=== PATIENT | female | born 2000 | race Caucasian/White ===

== ENCOUNTER 2023-03-31 10:01 | Outpatient (OUT) | payer BC, SELFPAY ==
[2023-03-29 17:58] LABS: HCG Quantitative 53 mIU/mL
[2023-03-31 07:22] LABS: HCG Quantitative 93 mIU/mL
== END 2023-03-31 23:59 | disposition home or self-care (01) ==
LOC: LAB 04-01 10:01
PROVIDERS: Visit Provider Obstetrics & Gynecology
DX: N92.5 Other specified irregular menstruation (principal)
CPT/HCPCS: 36415; 84702

== ENCOUNTER 2023-04-02 13:32 | Outpatient (OUT) | payer BC, SELFPAY ==
[2023-04-02 14:41] LABS: HCG Quantitative 316 mIU/mL
== END 2023-04-02 13:33 | disposition home or self-care (01) ==
LOC: LAB 13:33
PROVIDERS: Visit Provider Obstetrics & Gynecology
DX: N92.6 Irregular menstruation, unspecified (principal)
CPT/HCPCS: 36415; 84702

== ENCOUNTER 2023-04-30 09:01 | Outpatient (OUT) | payer BC, SELFPAY ==
--- NOTE | 2023-04-30 09:05 | US_ITS ---
The [address] [address] Patient Name: CHARLETTE ROCHA MRN: [id number] date: 2000 Sex: F Assigned Patient Location: Current Patient Location: US Accession/Order Number: [id number] Exam Date: 04/30/2023 09:07 Report Date: 04/30/2023 15:24 At the request of: TESSA MELGAR Procedure: US OB transvaginal EXAMINATION: US OB transvaginal HISTORY: MISSED MENSES COMPARISON: No relevant comparison available. FINDINGS: GESTATIONAL SAC: Present and normal appearing. YOLK SAC: Present and normal appearing. POLE: Present and normal appearing. CARDIAC: Present. UTERUS: Normal size and appearance. OVARIES: Right: Not seen. Left: Normal. CERVIX: 4.6 cm in length and closed. CUL-DE-SAC: Normal. OTHER: None. AGE BY LMP: 8 weeks 3 days [place] BY LMP: 12/07/2023 AGE BY US CRL: 8 weeks 2 days [place] BY US CRL: 12/08/2023 US/US OB transvaginal IMPRESSION: 1. Single live intrauterine . Electronically authenticated by: KORI COVINGTON Date: 04/30/2023 15:24
== END 2023-04-30 09:02 | disposition home or self-care (01) ==
LOC: US 09:01
PROVIDERS: Visit Provider Obstetrics & Gynecology
DX: Z34.91 Encounter for supervision of normal pregnancy, unspecified, first trimester (principal)
CPT/HCPCS: 76817

== ENCOUNTER 2023-06-21 09:56 | Outpatient (OUT) | payer BC, SELFPAY ==
[2023-06-21 11:56] LABS: HCG Quantitative 7 mIU/mL
--- NOTE | 2023-06-21 12:46 | US_ITS ---
The [place] [id number] Patient Name: CHARLETTE ROCHA MRN: [id number] date: 2000 Sex: F Assigned Patient Location: LAB Current Patient Location: LAB Accession/Order Number: [id number] Exam Date: 06/21/2023 12:50 Report Date: 06/21/2023 17:44 At the request of: TESSA MELGAR Procedure: US pelvis transvaginal EXAMINATION: US pelvis transvaginal HISTORY: Miscarriage O03.9 COMPARISON: No relevant comparison available. FINDINGS: The uterus is normal in size, contour and echotexture measuring 8.0 x 4.1 x 4.3 cm. Anteverted. The endometrium measures 13.7 mm, correlate with the menstrual cycle. Peripheral hyperechogenicity within the endometrial cavity with central hypoechogenicity. No significant vascularity within the endometrial cavity The right ovary is normal measuring 2.1 x 1.3 x 2.2 cm. Normal color and Doppler flow. Left ovary measures 3.6 x 3.8 x 3.4 cm. Area of anechoic echogenicity measuring 4.1 x 3.6 x 3.6 cm with some low-level echoes. Complex cyst is favored Small amount of free pelvic fluid within physiologic in amount US/US pelvis transvaginal IMPRESSION: Prominent endometrial cavity without vascularity, I favor blood products with no definite retained products of conception 4.1 cm cystic lesion of the left ovary, possibly a corpus luteal cyst Electronically authenticated by: KIRSTIN BOJORQUEZ Date: 06/21/2023 17:44
== END 2023-06-21 09:57 | disposition home or self-care (01) ==
LOC: LAB 10:01
PROVIDERS: Visit Provider Obstetrics & Gynecology
DX: O03.9 Complete or unspecified spontaneous abortion without complication (principal); N83.202 Unspecified ovarian cyst, left side
CPT/HCPCS: 36415; 76830; 84702

== ENCOUNTER 2023-12-31 10:38 | Outpatient (OUT) | payer BC, SELFPAY ==
[2023-12-31 11:23] LABS: HCG Qualitative POSITIVE (NEGATIVE)
[2023-12-31 13:06] LABS: HCG Quantitative 19 mIU/mL
== END 2023-12-31 10:39 | disposition home or self-care (01) ==
LOC: LAB 10:40
DX: N91.2 Amenorrhea, unspecified (principal); Z32.01 Encounter for pregnancy test, result positive
CPT/HCPCS: 36415; 84702; 84703

== ENCOUNTER 2024-01-03 08:35 | Outpatient (OUT) | payer BC, SELFPAY ==
[2024-01-03 09:12] LABS: HCG Quantitative 104 mIU/mL
== END 2024-01-03 08:36 | disposition home or self-care (01) ==
LOC: LAB 08:36
PROVIDERS: Visit Provider Obstetrics & Gynecology
DX: Z32.01 Encounter for pregnancy test, result positive (principal); N92.6 Irregular menstruation, unspecified
CPT/HCPCS: 36415; 84702

== ENCOUNTER 2024-01-05 12:54 | Outpatient (OUT) | payer BC, SELFPAY ==
[2024-01-05 13:48] LABS: HCG Quantitative 264 mIU/mL
== END 2024-01-05 12:55 | disposition home or self-care (01) ==
LOC: LAB 12:55
PROVIDERS: Visit Provider Obstetrics & Gynecology
DX: N92.6 Irregular menstruation, unspecified (principal); Z32.01 Encounter for pregnancy test, result positive
CPT/HCPCS: 36415; 84702

== ENCOUNTER 2024-02-04 09:02 | Outpatient (OUT) | payer BC, SELFPAY ==
--- NOTE | 2024-02-04 09:04 | US_ITS ---
[address] [address] Patient Name: CHARLETTE ROCHA MRN: [id number] date: 2000 Sex: F Assigned Patient Location: [facility] Current Patient Location: [facility] Accession/Order Number: [id number] Exam Date: 02/04/2024 09:04 Report Date: 02/04/2024 10:11 At the request of: TESSA MELGAR Procedure: US OB transvaginal EXAMINATION: US OB transvaginal HISTORY: MISSED MENSES COMPARISON: No relevant comparison available. FINDINGS: Ponce intrauterine gestation Gestational sac: 2.0 cm, 7 weeks 4 days CRL: 1.9 cm, 8 weeks 3 days Yolk sac: 4.4 mm Heart rate: 182 beats minute Cervix: Closed, 4.3 cm The uterus is normal, anteverted, anteflexed The right ovary contains a 3 cm complex cystic structure possibly corpus luteal cyst The left ovary is normal Clinical age: 8 weeks 3 days Clinical [place]: 09/12/2024 Ultrasound age: 8 weeks 3 days Ultrasound [place]: 09/12/2024 US/US OB transvaginal IMPRESSION: Viable ponce intrauterine gestation measuring 8 weeks 3 days Electronically authenticated by: KIRSTIN BOJORQUEZ Date: 02/04/2024 10:11
== END 2024-02-04 09:03 | disposition home or self-care (01) ==
LOC: NOMS 09:03
PROVIDERS: Visit Provider Obstetrics & Gynecology
DX: Z34.91 Encounter for supervision of normal pregnancy, unspecified, first trimester (principal); Z3A.08 8 weeks gestation of pregnancy; N92.6 Irregular menstruation, unspecified
CPT/HCPCS: 76817

== ENCOUNTER 2024-02-16 10:46 | Outpatient (OUT) | payer BC, SELFPAY ==
[2024-02-16 11:17] LABS: Basophils Percent Auto 0.4 % (0.2-2.0); Eosinophils Absolute Auto 0.1 10^3/uL (0.0-0.7); Eosinophils Percent Auto 0.5 % (0.9-7.0); Hematocrit 37.7 % (36.0-48.0); Hemoglobin 12.7 g/dL (12.0-16.0); Immature Granulocytes Abs Auto 0.03 10^3/uL (0.00-0.03); Immature Granulocytes Pct Auto 0.3 % (0.0-0.5); Lymphocytes Absolute Auto 1.3 10^3/uL (1.2-3.8); Lymphocytes Percent Auto 12.8 % (20.5-60.0); Mean Corpuscular HGB Conc 33.7 g/dL (29.9-35.2); Mean Corpuscular Hemoglobin 30.8 pg (26.7-34.0); Mean Corpuscular Volume 91.3 fL (81.0-99.0); Mean Platelet Volume 10.5 fL (9.5-13.5); Monocytes Absolute Auto 0.5 10^3/uL (0.3-0.8); Monocytes Percent Auto 4.5 % (1.7-12.0); Neutrophils Absolute Auto 8.4 10^3/uL (1.4-6.5); Neutrophils Percent Auto 81.5 % (43.0-75.0); Platelet Count 305 10^3/uL (150-450); Red Blood Count 4.13 10^6/uL (4.20-5.40); Red Cell Distribution Width 12.4 % (11.0-15.0); White Blood Count 10.3 10^3/uL (4.0-11.0)
[2024-02-16 11:30] LABS: Estimated Average Glucose 88 mg/dL; Glycohemoglobin A1C 4.7 % (4.5-6.2)
[2024-02-17 06:09] LABS: HBsAg Screen Negative (Negative); HCV Ab Non Reactive (Non Reactive); HIV Ab/p24 Ag Screen Non Reactive (Non Reactive)
[2024-02-17 09:09] LABS: Rubella Antibodies, IgG 6.57 index (Immune >0.99)
[2024-02-17 12:09] LABS: Rapid Plasma Reagin, Quant Non Reactive titer (NonRea<1:1)
== END 2024-02-16 10:47 | disposition home or self-care (01) ==
LOC: LAB 10:47
PROVIDERS: Visit Provider Obstetrics & Gynecology
DX: N92.6 Irregular menstruation, unspecified (principal); Z36.0 Encounter for antenatal screening for chromosomal anomalies
CPT/HCPCS: 36415; 83036; 85025; 86592; 86762; 86803; 86850; 86900; 86901; 87086; 87340; 87389

== ENCOUNTER 2024-03-27 20:56 | Outpatient (REF) | payer BC, SELFPAY ==
--- OUTSIDE RECORDS SUMMARY | 2024-03-27 21:01 | XMS_ITS | CCD ---
Author Organization [facility] Care Team Providers Care Loader Technician Name Role Phone Kirstin Hernandez Unavailable DO Kirstin Hernandez Primary Care Provider DO Donavon Yanes Attending Provider DO Kirstin Hernandez Primary Care Provider DO Donavon Yanes Attending Provider DO Kirstin Hernandez Primary Care Provider DO Donavon Yanes Attending Provider UNA Childs Attending Pr ovider [facility] Primary Care Provider [phone] DO Kirstin Hrenandez Primary Care Provider DO Kirstin Hernandez Primary Care Provider [phone] UNA Childs Attending Pr ovider [facility] Primary Care Provider [phone] UNA Childs Attending Pr ovider [facility] Primary Care Provider [phone] TALIA ., DR ZARATE Attending Unavailable DAVID, DR FULTON Primary Care Unavailable TALIA ., DR ZARATE Admitting Unavailable TALIA ., DR ZARATE Attending Unavailable DAVID, DR FULTON Primary Care Unavailable TALIA ., DR ZARATE Admitting Unavailable TALIA ., DR ZARATE Admitting Unavailable TALIA ., DR ZARATE Attending Unavailable DAVID, DR FULTON Primary Care Unavailable TALIA ., DR ZARATE Consulting Unavailable LEATHA MAIER Consulting Unavailable RUSSELL SRIVASTAVA Consulting Unavailable TALIA ., DR ZARATE Attending Unavailable GIRVIN, DR FULTON Primary Care Unavailable TALIA ., DR ZARATE Admitting Unavailable TALIA ., DR ZARATE Attending Unavailable GIRVIN, DR FULTON Primary Care Unavailable TALIA ., DR ZARATE Admitting Unavailable TALIA ., DR ZARATE Attending Unavailable GIRVIN, DR FULTON Primary Care Unavailable TALIA ., DR ZARATE Admitting Unavailable TALIA ., DR ZARATE Attending Unavailable GIRVIN, DR FULTON Primary Care Unavailable TALIA ., DR ZARATE Admitting Unavailable TALIA ., DR ZARATE Attending Unavailable TALIA ., DR ZARATE Consulting Unavailable GIRVIN, DR FULTON Primary Care Unavailable TALIA ., DR ZARATE Admitting Unavailable GIRVIN, DR FULTON Admitting Unavailable GIRVIN, DR FULTON Attending Unavailable GIRVIN, DR FULTON Primary Care Unavailable TALIA ., DR ZARATE Consulting Unavailable TALIA ., DR ZARATE Admitting Unavailable TALIA ., DR ZARATE Attending Unavailable GIRVIN, DR FULTON Primary Care Unavailable HUMPHREY HOLLAND Admitting Unavailable GIRVIN, DR FULTON Primary Care Unavailable HUMPHREY HOLLAND Attending Unavailable HUMPHREY HOLLAND Consulting Unavailable PRIMITIVO CHAU Consulting Unavailable GIRVIN, DR FULTON Primary Care Unavailable TALIA ., DR ZARATE Admitting Unavailable TALIA ., DR ZARATE Attending Unavailable [facility] UNA Childs Attending Pr ovider UNA Ch Attending Provider [facility] ider UNA Childs Attending Pr ovider UNA Ch Attending Provider UNA Ch Primary Care Provider [phone] Tyler Armstrong Admitting Unavailable Tyler Armstrong Attending Unavailable Tyler Armstrong Primary Care Unavailable Yovany Crawley MD Primary Care Provider [phone] Raeann Ch NP Unavailable Tiarra Childs [facility]mitting [facility] Amadeo, Tiarra Bettencourt Attending U [facility], [facility] Primary Care U suzannaable Childs, Tiarra Bettencourt Admitting U navailable Childs, Tiarra Bettencourt Attending U navailable Warchol, Raeann Primary Care Unavailable Warchol, Raeann Attending Unavailable Warchol, Raeann Admitting Unavailable Warchol, Raeann Admitting Unavailable Warchol, Raeann Primary Care Unavailable Warchol, Raeann Attending Unavailable Warchol, Raeann Admitting Unavailable Warchol, Raeann Attending Unavailable [facility], [facility] Primary [facility] Childs, Tiarra Bettencourt Admitting [facility] Childs, Tiarra Bettencourt Attending U [facility], [facility] Primary Care U vishalailable WARCHOL, RAEANN Attending Unavailable WARCHOL, RAEANN Attending Unavailable DIDIONMACHELLE Attending Unavailable DIDIONMACHELLE Referring Unavailable ESME JOSHI Attending Unavailable ESME JOSHI Referring Unavailable WARCHOL, RAEANN Referring Unavailable WARLISANDRO, RAEANN Attending Unavailable JHONATHAN PEDRAZA Attending Unavailable Allergies Allergy Classification Reported Allergen(s) Allergy Type Date of Onset Reaction(s) Facility (10 sources) Citalopram Drug Allergy headaches, upset GI [facility] Other (1 source) Citalopram Drug Allergy 3 [facility] Medications Current Medications Medication Drug Class(es) Dates Sig (Normalized) Sig (Original) [id number] 200 actuat albuterol 0.09 mg/actuat metered dose inhaler (2 sources) beta2-Adrenergi c Agonist Start: 11-26-2022 take 2 puff(s) by inhalation every four hours Ventolin HFA 108 (90 Base) MCG/ACT inhaler 2 puffs every 4 (four) hours if needed 0 11/26/2022 Active 24 hr amphetamine aspartate 7.5 mg / amphetamine sulfate 7.5 mg / dextroamphetamine saccharate 7.5 mg / dextroamphetamine sulfate 7.5 mg extended release oral capsule (13 sources) Central Nervous System Stimulant Start: 10-21-2023 End: 11-20-2023 take 1 capsule by mouth every twenty-four hours in the morning amphetamine-dextro amphetamine XR (Adderall XR) 30 MG 24 hr capsule Indications: Attention-deficit hyperactivity disorder, other type (CMS/HCC) Take 1 capsule (30 mg) by mouth in the morning. Do not crush or chew.. 30 capsule 0 10/21/2023 11/20/2023 Active Start: 08-04-2022 take 1 tablet by marcel th in the morning Adderall 10 MG 1 tablet in the AM Orally and 1 tablet at noon for 15 days Jul, Active Start: 09-03-2021 take 1 tablet by marcel th in the morning Adderall 10 MG 1 tablet in the AM Orally and 1 tablet at noon for 30 days Aug, Active Biotin (6 sources) Biotin Active docusate sodium 100 mg oral capsule (6 sources) Start: take 1 capsule by mouth every twenty-four hours Colace 100 MG 1 capsule Orally Once a day Dec, Active 120 actuat fluticasone propionate 0.044 mg/actuat metered dose inhaler (2 sources) Corticosteroid Start: 023 take 2 puff(s) by inhalation in the morning Flovent HFA 44 MCG/ACT inhaler Inhale 2 puffs in the morning and 2 puffs before bedtime. 0 11/26/2022 Active hydrOXYzine hydrochloride 25 mg oral tablet (9 sources) Antihistamine Start: hydrOXYzine HCl 25 MG 1 tablet Orally q8-12 hrs prn anxiety Aug, Active MiraLax 17 GM/SCOOP (6 sources) Start: MiraLax 17 GM/SCOOP 1 capful in 10 oz of water Orally daily Dec, Active Multivitamin preparation (6 sources) take 1 tablet by mouth once daily Multi Vitamin - 1 tablet Orally Once a day Active omeprazole 20 mg delayed release oral capsule (2 sources) Proton Pump Inhibitor Start: omeprazole (PriLOSEC) [address] capsule 1 (one) time each day at the same time 0 09/15/2022 Active Completed/Discontinued Medications Medication Drug Class(es) Dates Sig (Normalized) Sig (Original) azithromycin 250 mg oral tablet (7 sources) Macrolide Antimicrobial Start: Zithromax Z-Rikki 250 MG 2 tablet on the first day, then 1 tablet daily for 4 days Orally Once a day for 5 day(s) Nov, Not-Taking cefTRIAXone (8 sources) Cephalosporin Antibacterial Start: 5 Rocephin 500 mg Oct, 1 grm cephalexin 500 mg oral capsule (6 sources) Cephalosporin Antibacterial Start: 2 take 1 capsule by mouth every eight hours Cephalexin 500 MG 1 capsule Orally tid for 7 days Dec, Not-Taking escitalopram 10 mg oral tablet (2 sources) Serotonin Reuptake Inhibitor Start: 3 End: 4 take 1 tablet by mouth at bedtime escitalopram (Lexapro) 10 MG tablet Indications: DORIAN (generalized anxiety disorder) (CMS/HCC) Take 1 tablet (10 mg) by mouth at bedtime. 30 tablet 0 07/20/2023 10/21/2023 Discontinued (Therapy completed) lamoTRIgine 25 mg oral tablet (4 sources) Mood Stabilizer, Anti-epileptic Agent LaMICtal 25 MG 1 tablet Orally Not-Taking lisdexamfetamine dimesylate 30 mg oral capsule (7 sources) Central Nervous System Stimulant Start: 3 End: 4 take 1 capsule by mouth in the morning lisdexamfetamine (Vyvanse) 30 MG capsule Indications: Attention-deficit hyperactivity disorder, other type (CMS/HCC) Take 1 capsule (30 mg) by mouth in the morning. 30 capsule 0 08/31/2023 10/21/2023 Discontinued (Therapy completed) lurasidone hydrochloride 40 mg oral tablet (4 sources) Atypical Antipsychotic take 1 tablet by mouth every twenty-four hours Latuda 40 MG 1 tablet with food Orally Once a day Not-Taking (4 sources) Not-Giorgi ing 24 hr venlafaxine 37.5 mg extended release oral capsule (5 sources) Serotonin and Norepinephrine Reuptake Inhibitor Start: 2 take 1 capsule by mouth every twenty-four hours Effexor XR 37.5 MG 1 capsule with food Orally Once a day for 30 day(s) Sep, Not-Taking Problems Active Problems Problem Classification Problem Date Documented Da te Episodic/Chronic Abdominal pain (6 sources) Unspecified abdominal pain; Translations: [Pelvic and perineal pain] Onset: 01-02-2022 Resolved: 01-02-2022 Episodic Adjustment disorders (10 sources) Reaction to severe stress, unspecified; Translations: [Stress] Chronic Anxiety disorders (12 sources) Anxiety disorder, unspecified; Translations: [Anxiety] Onset: 09-03-2021 Resolved: 09-03-2021 Chronic Asthma (2 sources) Uncomplicated mild persistent asthma; Translations: [Mild persistent asthma, uncomplicated] Onset: 07-19-2023 07-19-2023 Chronic Attention-deficit, conduct, and disruptive behavior disorders (16 sources) Attention deficit hyperactivity disorder; Translations: [Attention-deficit hyperactivity disorder, unspecified type] Onset: 07-19-2023 Resolved: 07-20-2023 10-21-2023 Chronic Attention-deficit, conduct, and disruptive behavior disorders (6 sources) Attention-deficit hyperactivity disorder, unspecified type; Translations: [ADHD (attention deficit hyperactivity disorder) F90.9] Onset: 07-07-2021 Resolved: 04-10-2022 Chronic Headache; including migraine (10 sources) Migraine; Translations: [Migraine, unspecified, not intractable, without status migrainosus] Chronic Headache; including migraine (1 source) Headache; including migraine; Translations: [Headache, unspecified] Onset: 02-12-2023 Malaise and fatigue (3 sources) Fatigue; Translations: [Chronic fatigue, unspecified] Onset: 05-27-2023 07-20-2023 Chronic Menstrual disorders (3 sources) Missed period; Translations: [Irregular menstruation, unspecified] Onset: 07-20-2023 Resolved: 08-27-2023 08-27-2023 Chronic Mood disorders (6 sources) Affective psychosis; Translations: [Unspecified mood [affective] disorder] Onset: 07-19-2023 Resolved: 07-20-2023 07-19-2023 Chronic Other ear and sense organ disorders (2 sources) Impacted cerumen of bilateral ears; Translations: [Impacted cerumen, bilateral] 10-21-2023 Episodic Other endocrine disorders (10 sources) Polycystic ovaries; Translations: [Polycystic ovarian syndrome] Chronic Other endocrine disorders (6 sources) Polycystic ovarian syndrome; Translations: [POLYCYSTIC OVARIAN SYNDROME] Onset: 04-10-2022 Resolved: 04-10-2022 Chronic Other endocrine disorders (2 sources) Hypoglycemia; Translations: [Hypoglycemia, unspecified] Onset: 07-19-2023 07-19-2023 Chronic Other endocrine disorders (1 source) Hypoglycemia, unspecified; Translations: [Hypoglycemia, unspecified] Onset: 05-27-2023 Chronic Other female genital disorders (3 sources) Abnormal uterine and vaginal bleeding, unspecified; Translations: [ABNORMAL UTERINE VAGINAL BLEED UNS] Onset: 09-28-2022 Chronic Other gastrointestinal disorders (6 sources) Constipation; Translations: [Constipation, unspecified] Episodic Other nervous system disorders (2 sources) Paresthesia; Translations: [Paresthesia of skin] Episodic Other nervous system disorders (4 sources) Paresthesia of upper limb; Translations: [Paresthesia of skin] Episodic Other nervous system disorders (4 sources) Skin sensation disturbance; Translations: [Paresthesia of skin] Episodic Residual codes; unclassified (10 sources) Insomnia; Translations: [Insomnia, unspecified] Episodic Residual codes; unclassified (10 sources) Difficulty sleeping ; Translations: [Sleep disorder, unspecified] Episodic Unclassified (1 source) Encounter for general adult medical examination without abnormal findings; Translations: [Encounter for general adult medical examination without abnormal findings] Onset: 07-20-2023 Unclassified (1 source) Acute cough; Translations: [Acute cough] Onset: 02-12-2023 Unclassified (1 source) Frequency of micturition; Translations: [Frequency of micturition] Onset: 01-12-2023 Past or Other Problems Problem Classification Problem Date Documented Da te Episodic/Chronic Deficiency and other anemia (1 source) Anemia, unspecified Onset: 09-03-2021 Resolved: 09-03-2021 Episodic Immunizations and screening for infectious disease (1 source) Encounter for screening for human papillomavirus (HPV); Translations: [ENC SCREENING HUMAN PAPILLOMAVIRUS] Onset: 03-19-2022 Episodic Malaise and fatigue (2 sources) Other fatigue; Translations: [Weakness] Onset: 03-10-2022 Resolved: 03-10-2022 Episodic Mood disorders (2 sources) Mood disorders Onset: 10-21-2023 10-21-2023 Nausea and vomiting (1 source) Vomiting, unspecified Onset: 01-02-2022 Resolved: 01-02-2022 Episodic Nonspecific chest pain (2 sources) Chest pain, unspecified Onset: 03-10-2022 Resolved: 04-10-2022 Episodic Other aftercare (2 sources) Other emt intermediate (current) drug therapy Onset: 09-03-2021 Resolved: 01-02-2022 Episodic Other gastrointestinal disorders (2 sources) Constipation, unspecified Onset: 01-02-2022 Resolved: 04-10-2022 Episodic Other gastrointestinal disorders (1 source) Change in bowel habit Onset: 01-02-2022 Resolved: 01-02-2022 Episodic Other nervous system disorders (1 source) Paresthesia of skin Onset: 01-02-2022 Resolved: 01-02-2022 Episodic Other nutritional; endocrine; and metabolic disorders (1 source) Abnormal weight loss; Translations: [Abnormal weight loss] Onset: 07-20-2023 Episodic Other screening for suspected conditions (not mental disorders or infectious disease) (5 sources) Encounter for screening for malignant neoplasm of cervix; Translations: [Encounter for screening for nutritional disorder] Onset: 03-16-2022 Episodic Other upper respiratory disease (1 source) Nasal congestion; Translations: [Nasal congestion] Onset: 02-12-2023 Episodic Other upper respiratory infections (1 source) Acute upper respiratory infection, unspecified; Translations: [Acute upper respiratory infection, unspecified] Onset: 08-10-2023 Episodic Spondylosis; intervertebral disc disorders; other back problems (1 source) Dorsalgia, unspecified Onset: 01-02-2022 Resolved: 01-02-2022 Episodic Spontaneous (2 sources) Complete or unspecified spontaneous without complication; Translations: [COMPLETE/UNS SPONT AB W/O COMP] Onset: 09-29-2022 Episodic Results Test Name Value Interpretation Reference Range Facility ED Clinical Summaryon 2022 ED Clinical Summary [facility] ? Urgent Care [address] [place], [place] [id number] Clinical Summary PERSON INFORMATION Name: CHARLETTE ROCHA Age: 23 Years Sex: FEMALE : 2000 MRN: Acct#: Visit Reason: Medical screening exam; JULIET PHYSICAL Arrival: 09/02/2023 11:23:52 Discharge: 09/02/2023 12:23:00 LOS: 000 01:00 Check In: 09/02/2023 11:23:52 Checkout: 09/02/2023 12:23:00 Address: [address] [place] [address] [place] [id number] PCP: Provider, Unlisted PROVIDER INFORMATION Provider Role Assigned Unassigned Osiris MARIN, Jessica ED Nurse 09/02/2023 11:28:54 09/02/2023 11:32:29 Tyler Armstrong PA-C ED PA 09/02/2023 11:34:50 Allison Paul MA ED Nurse 09/02/2023 11:37:10 VITALS INFORMATION Vital Sign Triage Latest Temperature Tympanic Temperature Temporal Artery Pulse Rate O2 Sat 98 % 98 % Respiratory Rate Blood Pressure /86 mmHg /86 mmHg MEDICAL INFORMATION Medications Given: Allergy Information: No known allergies PHYSICIAN DOCUMENTATION DISCHARGE INFORMATION: Discharge Disposition: Home Discharge Location: Home PATIENT EDUCATION INFORMATION Instructions: Follow-Up: DIAGNOSIS: Patient Understands: Yes - Patient/family/caregiver verbalizes understanding of instructions given Comment: Normal [facility] ED Patient Summaryon 023 ED Patient Summary [facility] ? Urgent Care [address] [place] [id number] PATIENT DISCHARGE INSTRUCTIONS Patient Information Name: CHARLETTE ROCHA Age: 23 Years Date of : 2000 Reason For Visit: Medical screening exam; OTTERBEIN PHYSICAL Arrival Time: 09/02/2023 11:23:52 Primary Care Physician: Provider, Unlisted Attending Physician: Tyler Armstrong PA-C Comment: Patient Education Medication Information: The exam and treatment you received today in the [facility] Emergency Department were for an urgent problem and are not intended as complete care. It is important for you to follow up with a doctor, nurse practitioner, or physician?s purchasing administrative assistant for ongoing care. If your symptoms become worse or you do not improve as expected and you are unable to reach your usual health care provider, you should return to the Emergency Department, we are available 24 hours a day. For those patients who have received Radiology results, the interpretation of your X-ray as given to you by our Emergency Department physician is only a preliminary report. The Radiologist will review your films and if there is a change in the diagnosis you will be notified by phone. Please make sure you have provided a working phone number so we can reach you if necessary. In the event that you had a lab culture while you were a patient in the Emergency Department, you will be notified by phone if there is a need to change your antibiotic. Please make sure you have provided a working phone number so we can reach you if necessary. [facility] Emergency Department has provided you with a complete list of medications post discharge. Please inform your dog daycare provider/provider of your visit and for further instruction on these medications. Any specific questions regarding your chronic medications and dosages should be discussed with your primary care physician(s) and/or pharmacist. Visit Information Visit Diagnosis: Diagnoses This Visit Medical screening exam ([id number]) If you received any narcotics, sedation, or any other medication that causes drowsiness for the next 24 hours, unless otherwise directed: ? Do not drive a car. ? Do not operate machinery such as power tools, lawn mowers, drills, sewing machines, or stoves ? Avoid alcoholic beverages and drugs for allergies, nerves, or sleep ? Do not make important personal or business decisions or sign any legal documents Reason for Visit: Medical Screening Exam. [place] Physical. Allergies: Substance Reaction Symptoms Type Comments No known allergies Drug Vital Signs: Vitals and Measurements this Visit (last charted value for your 09/02/2023 visit) Vital Signs This Visit Temperature Oral (F): 98.1 DegF Temperature Tympanic: 36.7 DegC Peripheral Pulse Rate: 88 bpm Systolic Blood Pressure: 124 mmHg Diastolic Blood Pressure: 86 mmHg SpO2: 98 % Blood Pressure Method: Automatic Measurements This Visit Height/Length Measured: 175.26 cm Weight Measured: 57.79 kg Weight Dosin.790 kg Body Mass Index: 18.81 kg/m2 BSA Measured: 1.68 m2 Problems List: Problem Onset Comments No Problems found Major Tests and Procedures: The following procedures and tests were performed during your ED visit. Laboratory Radiology Cardiology Viruses or Bacteria What?s got you sick? Antibiotics only treat bacterial infections. Viral illnesses cannot be treated with antibiotics. When an antibiotic is not prescribed, ask your healthcare professional for tips on how to relieve symptoms and feel better. Usual Cause Illness Viruses Bacteria Antibiotic Needed Cold/Runny Nose NO Bronchitis/Chest Cold (in otherwise healthy children and adults) NO Whooping Cough Yes Flu NO Strep Throat Yes Sore Throat (except strep) NO Fluid in the middle ear (otitis media with effusion) NO Urinary Tract Infection Yes Antibiotics Aren?t Always the Answer www.cdc.gov/getsmart GET SMART Know When Antibiotics Work [place] Department of Health and Human Services Centers for Disease Control and Prevention May 2014 Normal [facility] Urgent Care Note- Provideron 09-02-2023 Urgent Care Note- Provider Patient: CHARLETTE ROCHA Age: 23 years Sex: FEMALE : 2000 Associated Diagnoses: None Author: Tyler Armstrong PA-C Basic Information Additional information: Chief Complaint from Nursing Triage Note : Chief Complaint 09/02/2023 11:54 EST Chief Complaint Medical Screening Exam. [place] Physical. . History of Present Illness Patient presents for a pre-employment physical. She is cleared for work. Exam is normal. See scanned document. GENERAL: Awake, alert and oriented to person, place and situation. Well nourished, well developed, non toxic, NAD. Moves around the department freely. EYES: Pupils equal, round and react to light. EOMI. ENMT: Ears: TM's and external canals with normal inspection bilaterally. Nose: normal inspection. Mouth: oral mucosa is pink and still moist. Throat: normal inspection. NECK: No bony TTP, normal range of motion, no meningismus, trachea is midline. No anterior or posterior lymphadenopathy. CARDIOVASCULAR: Regular rate and rhythm. +S1 +S2. No murmurs or rubs. RESPIRATORY: Clear to auscultation bilaterally without rales, rhonchi or wheeze. ABDOMEN: Soft, completely non tender, abdomen is non distended, without rebound tenderness, guarding or peritoneal signs. Bowel sounds present times 4 quadrants and normoactive. No bruits. No masses. No CVA TTP. BACK: There is no bony TTP, no scoliosis, full ROM without difficulty. EXTREMITIES: No cyanosis, clubbing or edema. Good muscle tone, moves all extremities fully. Squat normal. SKIN: Normal inspection, no visualized rash. NEUROLOGIC: Light touch sensation in tact, strength 5/5 in bilateral upper and lower extremities. Normal reflexes. Steady gait. Normal mentation. No focal neurological deficits appreciated. PSYCHIATRIC: Mood and affect appropriate. Health Status Allergies: Allergic Reactions (Selected) No known allergies. Past Medical/ Family/ Social History Medical history: No active or resolved past medical history items have been selected or recorded.. Surgical history: No active procedure history items have been selected or recorded.. Family history: No family history items have been selected or recorded.. Social history: Social & Psychosocial Habits Alcohol 09/02/2023 Alcohol Use: Never Substance Use 09/02/2023 Substance use: Never Tobacco 09/02/2023 Smoking tobacco use: Never tobacco user Electronic Cigarette/Vaping 09/02/2023 Electronic Cigarette Use: Never . Problem list: No qualifying data available . Physical Examination Vital Signs Vital Signs 09/02/2023 11:54 EST Temperature Oral (DegF) 98.1 DegF Temperature Tympanic 36.7 DegC Peripheral Pulse Rate 88 bpm Systolic Blood Pressure 124 mmHg Diastolic Blood Pressure 86 mmHg SpO2 98 % BP Method Automatic . Measurements 09/02/2023 11:54 EST Height 175.26 cm Weight 57.79 kg Weight Dosing 57.790 kg Body Mass Index Measured 18.81 kg/m2 BSA Measured 1.68 m2 . [Electronically Signed on: 09/02/2023 12:03 EST] Tyler Armstrong PA-C [Verified on: 09/02/2023 12:03 EST] Tyler Armstrong PA-C [facility] [address]23 Urgent Care Record [facility] ? Urgent Care [address] [place] [address] PATIENT DISCHARGE INSTRUCTIONS Patient Information Name: CHARLETTE ROCHA Age: 23 Years Date of : 2000 Reason For Visit: Medical screening exam; JULIET PHYSICAL Arrival Time: 09/02/2023 11:23:52 Primary Care Physician: Provider, Unlisted Attending Physician: Tyler Armstrong PA-C Comment: Visit Diagnosis: Diagnoses This Visit Medical screening exam ([id number]) If you received any narcotics, sedation, or any other medication that causes drowsiness for the next 24 hours, unless otherwise directed: ? Do not drive a car. ? Do not operate machinery such as power tools, lawn mowers, drills, sewing machines, or stoves ? Avoid alcoholic beverages and drugs for allergies, nerves, or sleep ? Do not make important personal or business decisions or sign any legal documents Medication Information: The exam and treatment you received today in the [facility] were for an urgent problem and are not intended as complete care. It is important for you to follow up with a doctor, nurse practitioner, or physician?s purchasing administrative assistant for ongoing care. If your symptoms become worse or you do not improve as expected and you are unable to reach your usual health care provider, you should return to the Emergency Department, we are available 24 hours a day. For those patients who have received Radiology results, the interpretation of your X-ray as given to you by our Urgent Care physician is only a preliminary report. The Radiologist will review your films and if there is a change in the diagnosis you will be notified by phone. Please make sure you have provided a working phone number so we can reach you if necessary. In the event that you had a lab culture while you were a patient in the Urgent Care, you will be notified by phone if there is a need to change your antibiotic. Please make sure you have provided a working phone number so we can reach you if necessary. [facility] has provided you with a complete list of medications post discharge. Please inform your dog daycare provider/provider of your visit and for further instruction on these medications. Any specific questions regarding your chronic medications and dosages should be discussed with your primary care physician(s) and/or pharmacist. Visit Information Allergies: Substance Reaction Symptoms Type Comments No known allergies Drug Vital Signs: Vitals and Measurements this Visit (last charted value for your 09/02/2023 visit) Vital Signs This Visit Temperature Oral (F): 98.1 DegF Temperature Tympanic: 36.7 DegC Peripheral Pulse Rate: 88 bpm Systolic Blood Pressure: 124 mmHg Diastolic Blood Pressure: 86 mmHg SpO2: 98 % Blood Pressure Method: Automatic Measurements This Visit Height/Length Measured: 175.26 cm Weight Measured: 57.79 kg Weight Dosin.790 kg Body Mass Index: 18.81 kg/m2 BSA Measured: 1.68 m2 Problems List: Problem Onset Comments No Problems found Patient Education Viruses or Bacteria What?s got you sick? Antibiotics only treat bacterial infections. Viral illnesses cannot be treated with antibiotics. When an antibiotic is not prescribed, ask your healthcare professional for tips on how to relieve symptoms and feel better. Usual Cause Illness Viruses Bacteria Antibiotic Needed Cold/Runny Nose NO Bronchitis/Chest Cold (in otherwise healthy children and adults) NO Whooping Cough Yes Flu NO Strep Throat Yes Sore Throat (except strep) NO Fluid in the middle ear (otitis media with effusion) NO Urinary Tract Infection Yes Antibiotics Aren?t Always the Answer www.cdc.gov/getsmart GET SMART Know When Antibiotics Work [place] Department of Health and Human Services Centers for Disease Control and Prevention May 2014 Normal [facility] Choriogonadotropin.beta subu nit [Units/volume] in Serum or PlasmaOrdered By: Raeann Ch on 08-19-2023 HCG.beta subunit Qn 0.75 m[IU]/mL [facility] Comment on above: Approximate Approxim ate hCG Gestational Age Range (mIU/ml) (weeks)0.2-1 5-50 1-2 50-500 2-3 100-5,000 3-4 500-10,000 4-5 1,000-50,000 5-6 10,000-100,000 6-8 15,000-200,000 8-12 10,000-100,000 HCG.beta subunit Qn Negative [facility] HCG,Qualitative Serumon 07-23 HCG,Qualitative Serum Negative Normal [facility] Comment on above: Result Comment: PERF ORMED BY: [place] [address] PATHOLOGIST TAX COLLECTION COORDINATOR SADAF YOUNGBLOOD M.D. Performed By: #### C RP, T4F, FSH, B12, SAKINA, FE and TIBC, LIPID, [id number], CMP, MG, TSH3, FOL #### [address] HCG,Quantitativeon 3 HCG,Quantitative 0.75 m[iU]/mL Normal [facility] Comment on above: Result Comment: Appr oximate Approximate hCG Gestational Age Range (mIU/ml) (weeks) 0.2-1 5-50 1-2 50-500 2-3 100-5,000 3-4 500-10,000 4-5 1,000-50,000 5-6 10,000-100,000 6-8 15,000-200,000 8-12 10,000-100,000 Performed By: #### C RP, T4F, FSH, B12, SAKINA, FE and TIBC, LIPID, [id number], CMP, MG, TSH3, FOL #### [address] HAND RIGHT WO IV CONTRAST on 08-18-2023 CT HAND RIGHT WO IV CONTRAST EXAMINATION: CT HAND RIGHT WO IV CONTRAST HISTORY: Fourth and fifth metacarpal area pain. Right hand injury TECHNIQUE: Multiple axial images were obtained of the right hand without contrast. Multiplanar reformats were obtained. All CT scans at this facility use dose modulation, iterative reconstruction, and/or weight based dosing when appropriate to reduce radiation dose to as low as reasonably achievable. COMPARISON: Radiographs of the hand August 01, 2023 FINDINGS: Nondisplaced intra-articular fracture of the base of the fourth metacarpal and nondisplaced fracture of the distal dorsal aspect of the hamate. Wrist and hand alignment is within normal limits. Soft tissues appear within normal limits. IMPRESSION: Nondisplaced fracture of the base of the fourth metacarpal and distal aspect of the hamate. ELECTRONICALLY SIGNED BY: Rickey Sellers, DO Normal Not Available BioFire Not Detectedon 08-10 BioFire Not Detected Not detected Normal Not Detecte [facility] Comment on above: Result Comment: This is a duplicate RP2.1 COVID (PCR) result to be used for statistical tracking purpose only. PERFORMED BY: [place] [address] PATHOLOGIST TAX COLLECTION COORDINATOR SADAF YOUNGBLOOD M.D. Performed By: #### C RP, T4F, FSH, B12, SAKINA, FE and TIBC, LIPID, [id number], CMP, MG, TSH3, FOL #### [address] COVID-19 Detected/Not Detect edOrdered By: Raeann Ch on 08-10-2023 SARS-CoV-2 (COVID-19) RNA KYLAH+non-probe Ql (Nph) Not detected Not Detecte [facility] Comment on above: This is a duplicate RP2.1 COVID (PCR) result to be used for statistical tracking purpose only. Respiratory (Upper) Panel, P CRon 08-10-2023 Respiratory (Upper) Panel, PCR Adenovirus Not detected Bordetella parapertussis Not detected Chlamydia pneumoniae Not detected Coronavirus 229E Not detected Coronavirus HKU1 Not detected Coronavirus NL63 Not detected Coronavirus OC43 Not detected Influenza A Not detected Influenza B Not detected Human Metapneumovirus Not detected Mycoplasma pneumoniae Not detected Parainfluenza Virus 1 Not detected Parainfluenza Virus 2 Not detected Parainfluenza Virus 3 Not detected Parainfluenza Virus 4 Not detected Bordetella pertussis-ptxP Not detected Human Rhino/Enterovirus Not detected Resp. Syncytial Virus Not detected COVID-19 Detected/Not Detected Not detected Blank Space -- FLUA TEST INCLUDES Influenza A tests for the following clinically FLUA TEST INCLUDES significant subtypes: FLUA TEST INCLUDES - Influenza A FLUA TEST INCLUDES - Influenza A H1 FLUA TEST INCLUDES - Influenza A H1 2009 FLUA TEST INCLUDES - Influenza A H3 Blank Space -- PERFORMED BY: [facility] [address] [place] [address] PATHOLOGIST TAX COLLECTION COORDINATOR SADAF YOUNGBLOOD M.D. Normal [facility] Comment on above: Performed By: #### C RP, T4F, FSH, B12, SAKINA, FE and TIBC, LIPID, [id number], CMP, MG, TSH3, FOL #### [facility] [address] Respiratory pathogens DNA an d RNA panel - Nasopharynx by KYLAH with non-probe detectionOrdered By: Raeann Ch on 08-10-2023 Respiratory pathogens DNA and RNA panel KYLAH+non-probe (Nph) [facility] XR HAND 3+ VIEWS RIGHTon XR HAND 3+ VIEWS RIGHT EXAMINATION: XR H AND 3+ VIEWS RIGHT HISTORY: Hand pain after injury COMPARISONS: None available TECHNIQUE: 3 views of the hand obtained. FINDINGS: No acute fracture or dislocation. Joint spaces are preserved. Soft tissues are within normal limits. IMPRESSION: No acute osseous abnormality. ELECTRONICALLY SIGNED BY: Rickey Sellers, DO Normal Not Available Alanine aminotransferase [En zymatic activity/volume] in Serum or PlasmaOrdered By: Raeann Ch on 07-20-2023 ALT [Catalytic activity/Vol] 10 U/L 7-52 [facility] Albumin [Mass/volume] in Ser um or Plasma by Bromocresol green (BCG) dye binding methoOrdered By: Raeann Ch on 07-20-2023 Albumin BCG dye [Mass/Vol] 4.5 g/dL 3.5-5.7 [facility] Alkaline phosphatase [Enzyma tic activity/volume] in Serum or PlasmaOrdered By: Raeann Ch on 07-20-2023 ALP [Catalytic activity/Vol] 63 U/L 34-104 [facility] Aspartate aminotransferase [ Enzymatic activity/volume] in Serum or PlasmaOrdered By: Raeann Ch on 07-20-2023 AST [Catalytic activity/Vol] 16 U/L 13-39 [facility] Basophils Auto (Bld) [#/Vol] Ordered By: Raeann Ch on 07-20-2023 Basophils (Bld) [#/Vol] 0.0 10*3/uL 0.0-0.2 [facility] Basophils/100 WBC Auto (Bld) Ordered By: Raeann Ch on 07-20-2023 Basophils/100 WBC (Bld) 0.3 % . [facility] Bilirubin.total [Mass/volume ] in Serum or PlasmaOrdered By: Raeann Ch on 07-20-2023 Bilirubin [Mass/Vol] 1.7 mg/dL 0.3-1.0 [facility] Comment on above: Samples from patient s who have taken Naproxen have shown spurious elevation in Total Bilirubin levels. A metabolite of Naproxen, O-desmethylnaproxen, has been shown to interfere with the Oren-Jarek method for measuring Total Bilirubin. C reactive protein [Mass/vol ume] in Serum or PlasmaOrdered By: Raeann Ch on 07-20-2023 CRP [Mass/Vol] 0.8 mg/dL 0.0-0.5 [facility] C-Reactive Proteinon 023 C-Reactive Protein 0.8 mg/dL High 0.0-0.5 [facility] Comment on above: Performed By: #### C RP, T4F, FSH, B12, SAKINA, FE and TIBC, LIPID, [id number], CMP, MG, TSH3, FOL #### [address] Calcium [Mass/volume] in Ser um or PlasmaOrdered By: Raeann Ch on 07-20-2023 Calcium [Mass/Vol] 9.6 mg/dL 8.6-10.3 [facility] Carbon dioxide, total [Moles /volume] in Serum or PlasmaOrdered By: Raeann Ch on 07-20-2023 CO2 [Moles/Vol] 26.8 mmol/L 21.0-31.0 [facility] Chloride [Moles/volume] in S ulises or PlasmaOrdered By: Raeann Ch on 07-20-2023 Chloride [Moles/Vol] 106 mmol/L 98-107 [facility] Cholesterol [Mass/volume] in Serum or PlasmaOrdered By: Raeann Ch on 07-20-2023 Cholesterol [Mass/Vol] 148 mg/dL 140-200 [facility] Comment on above: Chol less than 200 m g/dl low riskChol 201-239 mg/dl borderline riskChol 240 mg/dl and greater high risk Cholesterol in LDL Calc [Mas s/Vol]Ordered By: Raeann Ch on 07-20-2023 Cholesterol in LDL [Mass/Vol] 86 mg/dL 0-100 [facility] Comment on above: LDL ATP III CLASSIFI CATIONLDL less than 100 mg/dL OptimalLDL 100-129 mg/dL Near or above optimalLDL 130-159 mg/dL Borderline highLDL 160-189 mg/dL HighLDL greater than 189 mg/dL Very high Cholesterol in VLDL Calc [Ma ss/Vol]Ordered By: Raeann Ch on 07-20-2023 Cholesterol in VLDL [Mass/Vol] 17 mg/dL [facility] Complete Blood Count Auto Di ffon 07-20-2023 Basophils (Bld) [#/Vol] 0.0 10*3/uL Normal 0.0-0.2 [facility] Comment on above: Performed By: #### C RP, T4F, FSH, B12, SAKINA, FE and TIBC, LIPID, [id number], CMP, MG, TSH3, FOL #### [address] Basophils/100 WBC (Bld) 0.3 % Normal . Allie tolbert [facility] Comment on above: Performed By: #### C RP, T4F, FSH, B12, SAKINA, FE and TIBC, LIPID, [id number], CMP, MG, TSH3, FOL #### [address] Eosinophils (Bld) [#/Vol] 0.1 10*3/uL Normal 0.0-0.45 [facility] Comment on above: Performed By: #### C RP, T4F, FSH, B12, SAKINA, FE and TIBC, LIPID, [id number], CMP, MG, TSH3, FOL #### [address] Eosinophils/100 WBC (Bld) 0.9 % Normal . [facility] Comment on above: Performed By: #### C RP, T4F, FSH, B12, SAKINA, FE and TIBC, LIPID, [id number], CMP, MG, TSH3, FOL #### [address] Erythrocyte distribution width (RBC) [Ratio] 12.3 % Normal 11.9-15.3 [facility] Comment on above: Performed By: #### C RP, T4F, FSH, B12, SAKINA, FE and TIBC, LIPID, [id number], CMP, MG, TSH3, FOL #### [address] Hematocrit (Bld) [Volume fraction] 37.1 % Normal 34.0-46.4 [facility] Comment on above: Performed By: #### C RP, T4F, FSH, B12, SAKINA, FE and TIBC, LIPID, [id number], CMP, MG, TSH3, FOL #### [address] Hemoglobin (Bld) [Mass/Vol] 12.5 g/dL Normal 11.8-15.4 [facility] Comment on above: Performed By: #### C RP, T4F, FSH, B12, SAKINA, FE and TIBC, LIPID, [id number], CMP, MG, TSH3, FOL #### [address] Lymphocytes (Bld) [#/Vol] 1.6 10*3/uL Normal 1.00-4.8 [facility] Comment on above: Performed By: #### C RP, T4F, FSH, B12, SAKINA, FE and TIBC, LIPID, [id number], CMP, MG, TSH3, FOL #### [address] Lymphocytes/100 WBC (Bld) 23.9 % Normal . [facility] Comment on above: Performed By: #### C RP, T4F, FSH, B12, SAKINA, FE and TIBC, LIPID, [id number], CMP, MG, TSH3, FOL #### [address] MCH (RBC) [Entitic mass] 30.5 pg Normal 24.7-34.3 [facility] Comment on above: Performed By: #### C RP, T4F, FSH, B12, SAKINA, FE and TIBC, LIPID, [id number], CMP, MG, TSH3, FOL #### [address] MCV (RBC) [Entitic vol] 90.1 fL Normal 80-100 [facility] Comment on above: Performed By: #### C RP, T4F, FSH, B12, SAKINA, FE and TIBC, LIPID, [id number], CMP, MG, TSH3, FOL #### [address] Mean Corpuscular HGB Conc 33.8 g/dL Normal 32.0-35.0 [facility] Comment on above: Performed By: #### C RP, T4F, FSH, B12, SAKINA, FE and TIBC, LIPID, [id number], CMP, MG, TSH3, FOL #### [address] Monocytes (Bld) [#/Vol] 0.3 10*3/uL Normal 0.0-0.8 [facility] Comment on above: Performed By: #### C RP, T4F, FSH, B12, SAKINA, FE and TIBC, LIPID, [id number], CMP, MG, TSH3, FOL #### [address] Monocytes/100 WBC (Bld) 4.9 % Normal . [facility]ie [facility] Comment on above: Performed By: #### C RP, T4F, FSH, B12, SAKINA, FE and TIBC, LIPID, [id number], CMP, MG, TSH3, FOL #### [address] Neutrophils (Bld) [#/Vol] 4.7 10*3/uL Normal 1.8-7.7 [facility] Comment on above: Performed By: #### C RP, T4F, FSH, B12, SAKINA, FE and TIBC, LIPID, [id number], CMP, MG, TSH3, FOL #### [address] Neutrophils/100 WBC (Bld) 70.0 % Normal . [facility] Comment on above: Performed By: #### C RP, T4F, FSH, B12, SAKINA, FE and TIBC, LIPID, [id number], CMP, MG, TSH3, FOL #### [address] NRBC% 0.1 /100{WBC} Normal 0-0.5 [facility] Comment on above: Performed By: #### C RP, T4F, FSH, B12, SAKINA, FE and TIBC, LIPID, [id number], CMP, MG, TSH3, FOL #### [address] Platelet mean volume (Bld) [Entitic vol] 8.8 fL Normal 6.3-10.7 [facility] Comment on above: Performed By: #### C RP, T4F, FSH, B12, SAKINA, FE and TIBC, LIPID, [id number], CMP, MG, TSH3, FOL #### [address] Platelets (Bld) [#/Vol] 344 10*3/uL Normal 150-450 [facility] Comment on above: Performed By: #### C RP, T4F, FSH, B12, SAKINA, FE and TIBC, LIPID, [id number], CMP, MG, TSH3, FOL #### [address] RBC (Bld) [#/Vol] 4.11 10*6/uL Normal 3.60-5.00 [facility] Comment on above: Performed By: #### C RP, T4F, FSH, B12, SAKINA, FE and TIBC, LIPID, [id number], CMP, MG, TSH3, FOL #### [address] WBC (Bld) [#/Vol] 6.7 10*3/uL Normal 3.8-11.6 [facility] Comment on above: Performed By: #### C RP, T4F, FSH, B12, SAKINA, FE and TIBC, LIPID, [id number], CMP, MG, TSH3, FOL #### [address] Comprehensive Metabolic Pane maikol 07-20-2023 Albumin [Mass/Vol] 4.5 g/dL Normal 3.5-5.7 [facility] Comment on above: Performed By: #### C RP, T4F, FSH, B12, SAKINA, FE and TIBC, LIPID, [id number], CMP, MG, TSH3, FOL #### [address] Albumin/Globulin [Mass ratio] 1.8 {ratio} Normal [facility] Comment on above: Performed By: #### C RP, T4F, FSH, B12, SAKINA, FE and TIBC, LIPID, [id number], CMP, MG, TSH3, FOL #### [address] ALP [Catalytic activity/Vol] 63 U/L Normal 34-104 [facility] Comment on above: Performed By: #### C RP, T4F, FSH, B12, SAKINA, FE and TIBC, LIPID, [id number], CMP, MG, TSH3, FOL #### [address] ALT [Catalytic activity/Vol] 10 U/L Normal 7-52 [facility] Comment on above: Performed By: #### C RP, T4F, FSH, B12, SAKINA, FE and TIBC, LIPID, [id number], CMP, MG, TSH3, FOL #### [address] Anion gap [Moles/Vol] 11.4 mmol/L Normal 6.0-15.0 [facility] e [facility] Comment on above: Performed By: #### C RP, T4F, FSH, B12, SAKINA, FE and TIBC, LIPID, [id number], CMP, MG, TSH3, FOL #### [address] AST [Catalytic activity/Vol] 16 U/L Normal 13-39 [facility] Comment on above: Performed By: #### C RP, T4F, FSH, B12, SAKINA, FE and TIBC, LIPID, [id number], CMP, MG, TSH3, FOL #### [address] Bilirubin [Mass/Vol] 1.7 mg/dL High 0.3-1.0 [facility] Comment on above: Result Comment: Samp les from patients who have taken Naproxen have shown spurious elevation in Total Bilirubin levels. A metabolite of Naproxen, O-desmethylnaproxen, has been shown to interfere with the Irisik-Jarek method for measuring Total Bilirubin. Performed By: #### C RP, T4F, FSH, B12, SAKINA, FE and TIBC, LIPID, [id number], CMP, MG, TSH3, FOL #### [address] Calcium [Mass/Vol] 9.6 mg/dL Normal 8.6-10.3 [facility] Comment on above: Performed By: #### C RP, T4F, FSH, B12, SAKINA, FE and TIBC, LIPID, [id number], CMP, MG, TSH3, FOL #### [address] Chloride [Moles/Vol] 106 mmol/L Normal 98-107 [facility] Comment on above: Performed By: #### C RP, T4F, FSH, B12, SAKINA, FE and TIBC, LIPID, [id number], CMP, MG, TSH3, FOL #### [address] CO2 [Moles/Vol] 26.8 mmol/L Normal 21.0-31.0 [facility] Comment on above: Performed By: #### C RP, T4F, FSH, B12, SAKINA, FE and TIBC, LIPID, [id number], CMP, MG, TSH3, FOL #### [address] Creatinine [Mass/Vol] 0.70 mg/dL Normal 0.60-1.20 [facility] Comment on above: Performed By: #### C RP, T4F, FSH, B12, SAKINA, FE and TIBC, LIPID, [id number], CMP, MG, TSH3, FOL #### [place] [address] [place] GFR/1.73 sq M.predicted MDRD (S/P/Bld) [Vol rate/Area] mL/min/{1.73_m2} Normal [facility] Comment on above: Performed By: #### C RP, T4F, FSH, B12, SAKINA, FE and TIBC, LIPID, [id number], CMP, MG, TSH3, FOL #### [address] Globulin (S) [Mass/Vol] 2.5 g/dL Normal T [facility] Comment on above: Performed By: #### C RP, T4F, FSH, B12, SAKINA, FE and TIBC, LIPID, [id number], CMP, MG, TSH3, FOL #### [address] Glucose [Mass/Vol] 76 mg/dL Normal 70-100 [facility] Comment on above: Result Comment: [facility] Glucose Reference Range is dependent on time and content of last meal. Glucose of more than 200 mg/dL in a nonstressed, ambulatory subject supports the diagnosis of Diabetes Mellitus. ADA recommended reference range Performed By: #### C RP, T4F, FSH, B12, SAKINA, FE and TIBC, LIPID, [id number], CMP, MG, TSH3, FOL #### [address] Potassium [Moles/Vol] 4.2 mmol/L Normal 3.5-5.1 [facility] Comment on above: Performed By: #### C RP, T4F, FSH, B12, SAKINA, FE and TIBC, LIPID, [id number], CMP, MG, TSH3, FOL #### [address] Protein [Mass/Vol] 7.0 g/dL Normal 6.4-8.9 [facility] Comment on above: Performed By: #### C RP, T4F, FSH, B12, SAKINA, FE and TIBC, LIPID, [id number], CMP, MG, TSH3, FOL #### [place] [address] [place] Sodium [Moles/Vol] 140 mmol/L Normal 136-145 [facility] Comment on above: Performed By: #### C RP, T4F, FSH, B12, SAKINA, FE and TIBC, LIPID, [id number], CMP, MG, TSH3, FOL #### [address] Urea nitrogen [Mass/Vol] 8 mg/dL Normal 7-25 [facility] Comment on above: Performed By: #### C RP, T4F, FSH, B12, SKAINA, FE and TIBC, LIPID, [id number], CMP, MG, TSH3, FOL #### [address] Creatinine [Mass/volume] in Serum or PlasmaOrdered By: Raeann Ch on 07-20-2023 Creatinine [Mass/Vol] 0.70 mg/dL 0.60-1.20 [facility] Eosinophils Auto (Bld) [#/Vo l]Ordered By: Raeann Ch on 07-20-2023 Eosinophils (Bld) [#/Vol] 0.1 10*3/uL 0.0-0.45 [facility] Eosinophils/100 WBC Auto (Bl d)Ordered By: Raeann Ch on 07-20-2023 Eosinophils/100 WBC (Bld) 0.9 % . [facility] Erythrocyte Sedimentation Ra nargis 07-20-2023 ESR (Bld) [Velocity] 15 mm/h Normal 0-19 [facility] Comment on above: Result Comment: PERF ORMED BY: [place] [address] PATHOLOGIST TAX COLLECTION COORDINATOR SADAF YOUNGBLOOD M.D. Performed By: #### C RP, T4F, FSH, B12, SAKINA, FE and TIBC, LIPID, [id number], CMP, MG, TSH3, FOL #### [address] Erythrocyte distribution wid th Auto (RBC) [Ratio]Ordered By: Raeann Ch on 07-20-2023 Erythrocyte distribution width (RBC) [Ratio] 12.3 % 11.9-15.3 [facility] Erythrocyte sedimentation ra te by Photometric methodOrdered By: Raeann Ch on 07-20-2023 ESR Photometric method (Bld) [Velocity] 15 mm/hr 0-19 [facility] Estradiolon 07-20-2023 Estradiol 126.0 pg/mL Normal . [facility] Comment on above: Result Comment: Adul t Female: Follicular phase 12.5 - 166.0 Ovulation phase 85.8 - 498.0 Luteal phase 43.8 - 211.0 Postmenopausal <6.0 - 54.7 1st trimester 215.0 - >4300.0 Heather ECLIA methodology PERFORMED BY: [place] [address] PATHOLOGIST TAX COLLECTION COORDINATOR SADAF YOUNGBLOOD M.D. Performed By: #### C RP, T4F, FSH, B12, SAKINA, FE and TIBC, LIPID, [id number], CMP, MG, TSH3, FOL #### [address] Ferritinon 07-20-2023 Ferritin [Mass/Vol] 20.3 ng/mL Normal 11.0-306.8 [facility] Comment on above: Performed By: #### C RP, T4F, FSH, B12, SAKINA, FE and TIBC, LIPID, [id number], CMP, MG, TSH3, FOL #### [address] Ferritin [Mass/volume] in Se rum or PlasmaOrdered By: Raeann Ch on 07-20-2023 Ferritin [Mass/Vol] 20.3 ng/mL 11.0-306.[address] [facility] Folateon 07-20-2023 Folate 10.4 ng/mL Normal >5.9 [facility] Comment on above: Result Comment: Yulia te reference range: >5.9 ng/ml The WHO technical consultation on folate and vitamin b12 deficiencies has determined that folate concentrations less than 4 ng/ml are considered deficient. Performed By: #### C RP, T4F, FSH, B12, SAKINA, FE and TIBC, LIPID, [id number], CMP, MG, TSH3, FOL #### [address] [place] [address] [facility] Folate [Mass/volume] in Seru m or PlasmaOrdered By: Raeann Ch on 07-20-2023 Folate [Mass/Vol] 10.4 ng/mL >5.9 [facility] Comment on above: Folate reference ran ge: >5.9 ng/mlThe WHO technical consultation on folate and vitamin [id number] has determined that folate concentrations lessthan 4 ng/ml are considered deficient. Follicle Stimulating Hormone on 07-20-2023 Follicle Stimulating Hormone 2.8 m[iU]/mL Normal [facility] Comment on above: Result Comment: FEMA LE NORMALS (PREMENOPAUSE) MID-FOLLICULAR PHASE: 3.9-8.8 mIU/mL MID-CYCLE PEAK: 4.5-22.5 mIU/mL MID-LUTEAL PHASE: 1.8-5.1 mIU/mL FEMALE NORMALS (POSTMENOPAUSE): 16.7-113.6 mIU/mL MALE NORMALS: 1.3-19.3 mIU/mL Performed By: #### C RP, T4F, FSH, B12, SAKINA, FE and TIBC, LIPID, [id number], CMP, MG, TSH3, FOL #### [facility] [address] [place], [place] [id number] [facility] Follitropin [Units/volume] i n Serum or PlasmaOrdered By: Raeann Ch on 07-20-2023 Follitropin Qn 2.8 m[IU]/mL [facility] Comment on above: FEMALE NORMALS (FLOWER ENOPAUSE) MID-FOLLICULAR PHASE: 3.9-8.8 mIU/mL MID-CYCLE PEAK: 4.5-22.5 mIU/mL MID-LUTEAL PHASE: 1.8-5.1 mIU/mLFEMALE NORMALS (POSTMENOPAUSE): 16.7-113.6 mIU/mLMALE NORMALS: 1.3-19.3 mIU/mL Free T4 (Free Thyroxine)on Free T4 [Mass/Vol] 0.92 ng/dL Normal 0.61-1.12 [facility] Comment on above: Performed By: #### C RP, T4F, FSH, B12, SAKINA, FE and TIBC, LIPID, [id number], CMP, MG, TSH3, FOL #### [facility] [address] Free testosterone measuremen t by LC-MS/MSOrdered By: Raeann Ch on 07-20-2023 Testosterone Free [Mass/Vol] 1.5 pg/mL 0.0-4.2 [facility] Comment on above: Performed at: CB - [facility] [id number] [place], [place] [id number] Director: Alf Simpson PhD, Phone: [phone] at: - [facility] [address] [id number] Director: Jayne Mann MD, Phone: [phone] Globulin Calc (S) [Mass/Vol] Ordered By: Raeann Ch on 07-20-2023 Globulin (S) [Mass/Vol] 2.5 g/dL [facility] Glucose [Mass/volume] in Ser um or PlasmaOrdered By: Raeann Ch on 07-20-2023 Glucose [Mass/Vol] 76 mg/dL 70-100 [facility] Comment on above: ADA recommended refe rence rangeRandom Glucose Reference Range is dependent on time and content of last meal. Glucose of more than 200 mg/dL in a nonstressed, ambulatory subject supports the diagnosis of Diabetes Mellitus. Hematocrit Auto (Bld) [Volum e fraction]Ordered By: Raeann Ch on 07-20-2023 Hematocrit (Bld) [Volume fraction] 37.1 % 34.0-46.4 [facility] Hemoglobin [Mass/volume] in BloodOrdered By: Raeann Ch on 07-20-2023 Hemoglobin (Bld) [Mass/Vol] 12.5 g/dL 11.8-15.4 [facility] Insulinon 07-20-2023 Insulin 8.2 u[iU]/mL Normal 2.6-24.9 [facility] Comment on above: Result Comment: Perf ormed at: CB - [facility] [address] [place], [place] [id number] General Handling Supervisor: Alf Simpson PhD, Phone: [phone] Performed By: #### C RP, T4F, FSH, B12, SAKINA, FE and TIBC, LIPID, [id number], CMP, MG, TSH3, FOL #### [address] Iron [Mass/volume] in Serum or PlasmaOrdered By: Raeann Ch on 07-20-2023 Iron [Mass/Vol] 122 ug/dL 50-212 [facility] Iron and TIBC Profileon 06-22 % Iron Saturation 28.6 % Normal 20-50 [facility] Comment on above: Performed By: #### C RP, T4F, FSH, B12, SAKINA, FE and TIBC, LIPID, [id number], CMP, MG, TSH3, FOL #### [address] Iron [Mass/Vol] 122 ug/dL Normal 50-212 [facility] Comment on above: Performed By: #### C RP, T4F, FSH, B12, SAKINA, FE and TIBC, LIPID, [id number], CMP, MG, TSH3, FOL #### [address] Total Iron Binding Capacity 427 ug/dL Normal 255-450 [facility] Comment on above: Performed By: #### C RP, T4F, FSH, B12, SAKINA, FE and TIBC, LIPID, [id number], CMP, MG, TSH3, FOL #### [place] [address] [place] Transferrin [Mass/Vol] 305 mg/dL Normal 203-362 [facility] Comment on above: Performed By: #### C RP, T4F, FSH, B12, SAKINA, FE and TIBC, LIPID, [id number], CMP, MG, TSH3, FOL #### [place] [address] [place] Iron binding capacity [Mass/ volume] in Serum or PlasmaOrdered By: Raeann Ch on 07-20-2023 Iron binding capacity [Mass/Vol] 427 ug/dL 255-450 [facility] Iron saturation [Mass Fracti on] in Serum or PlasmaOrdered By: Raeann Ch on 07-20-2023 Iron saturation [Mass fraction] 28.6 % 20-50 [facility] Laboratory - Chemistry and C hemistry - challengeOrdered By: Raeann Ch on 07-20-2023 Testosterone [Mass/Vol] 25 ng/dL 13-71 F [facility] Leukocytes [#/volume] correc paulie for nucleated erythrocytes in Blood by Automated counOrdered By: Raeann Ch on 07-20-2023 WBC corrected for nucl RBC Auto (Bld) [#/Vol] 6.7 10*3/uL 3.8-11.6 [facility] Lipid Panelon 07-20-2023 Cholesterol [Mass/Vol] 148 mg/dL Normal 140-200 [facility] Comment on above: Result Comment: Chol less than 200 mg/dl low risk Chol 201-239 mg/dl borderline risk Chol 240 mg/dl and greater high risk Performed By: #### C RP, T4F, FSH, B12, SAKINA, FE and TIBC, LIPID, [id number], CMP, MG, TSH3, FOL #### [facility] [address] [place] [address] [place] Cholesterol in HDL [Mass/Vol] 45 mg/dL Normal 23-92 [facility] Comment on above: Result Comment: HDL CHOL ATP-III CLASSIFICATION Cardiovascular Risk HDL > or equal to 60 mg/dL LOW HDL < 40 mg/dL HIGH Performed By: #### C RP, T4F, FSH, B12, SAKINA, FE and TIBC, LIPID, [id number], CMP, MG, TSH3, FOL #### [facility] [address] [place] [address] [facility] Cholesterol.total/Choles terol in HDL [Mass ratio] 3.3 {ratio} Normal <5.0 [facility] Comment on above: Performed By: #### C RP, T4F, FSH, B12, SAKINA, FE and TIBC, LIPID, [id number], CMP, MG, TSH3, FOL #### [facility] [address] [place] [id number] [facility] LDL Cholesterol,Calculated 86 mg/dL Normal 0-100 [facility] Comment on above: Result Comment: LDL ATP III CLASSIFICATION LDL less than 100 mg/dL Optimal LDL 100-129 mg/dL Near or above optimal LDL 130-159 mg/dL Borderline high LDL 160-189 mg/dL High LDL greater than 189 mg/dL Very high Performed By: #### C RP, T4F, FSH, B12, SAKINA, FE and TIBC, LIPID, [id number], CMP, MG, TSH3, FOL #### [facility] [address] Triglyceride w/Reflex 85 mg/dL Normal 0-149 [facility] Comment on above: Result Comment: TRIG ATP III CLASSIFICATION TRIG less than 150 mg/dL Normal TRIG 150-199 mg/dL Borderline high TRIG 200-500 mg/dL High TRIG greater than 500 mg/dL Very high Standard traceable to the Center for Disease Conrtrol and Prevention (CDC) test method. Performed By: #### C RP, T4F, FSH, B12, SAKINA, FE and TIBC, LIPID, [id number], CMP, MG, TSH3, FOL #### [address] VLDL CHOLESTEROL 17 mg/dL Normal [facility] Comment on above: Performed By: #### C RP, T4F, FSH, B12, SAKINA, FE and TIBC, LIPID, [id number], CMP, MG, TSH3, FOL #### [address] Luteinizing Hormoneon 2022 Luteinizing Hormone 5.5 m[iU]/mL Normal . [facility] Comment on above: Result Comment: Adul t Female: Follicular phase 2.4 - 12.6 Ovulation phase 14.0 - 95.6 Luteal phase 1.0 - 11.4 Postmenopausal 7.7 - 58.5 Performed By: #### C RP, T4F, FSH, B12, SAKINA, FE and TIBC, LIPID, [id number], CMP, MG, TSH3, FOL #### [address] Lymphocytes Auto (Bld) [#/Vo l]Ordered By: Raeann Ch on 07-20-2023 Lymphocytes (Bld) [#/Vol] 1.6 10*3/uL 1.00-4.8 [facility] Lymphocytes/100 WBC Auto (Bl d)Ordered By: Raeann Ch on 07-20-2023 Lymphocytes/100 WBC (Bld) 23.9 % . [facility] MCH Auto (RBC) [Entitic mass ]Ordered By: Raeann Ch on 07-20-2023 MCH (RBC) [Entitic mass] 30.5 pg 24.7-34.3 [facility] MCHC Auto (RBC) [Mass/Vol]Or dered By: Raeann Ch on 07-20-2023 MCHC (RBC) [Mass/Vol] 33.8 g/dL 32.0-35.0 [facility] MCV Auto (RBC) [Entitic vol] Ordered By: Raeann Ch on 07-20-2023 MCV (RBC) [Entitic vol] 90.1 fL 80-100 F [facility] Magnesiumon 07-20-2023 Magnesium [Mass/Vol] 1.9 mg/dL Normal 1.9-2.7 [facility] Comment on above: Performed By: #### C RP, T4F, FSH, B12, SAKINA, FE and TIBC, LIPID, [id number], CMP, MG, TSH3, FOL #### [facility] [address] Magnesium [Mass/volume] in S ulises or PlasmaOrdered By: Raeann Ch on 07-20-2023 Magnesium [Mass/Vol] 1.9 mg/dL 1.9-2.7 [facility] Monocytes Auto (Bld) [#/Vol] Ordered By: Raeann Ch on 07-20-2023 Monocytes (Bld) [#/Vol] 0.3 10*3/uL 0.0-0.8 [facility] Monocytes/100 WBC Auto (Bld) Ordered By: Raeann Ch on 07-20-2023 Monocytes/100 WBC (Bld) 4.9 % . F [facility] Neutrophils Auto (Bld) [#/Vo l]Ordered By: Raeann Ch on 07-20-2023 Neutrophils (Bld) [#/Vol] 4.7 10*3/uL 1.8-7.7 [facility] Neutrophils/100 WBC Auto (Bl d)Ordered By: Raeann Ch on 07-20-2023 Neutrophils/100 WBC (Bld) 70.0 % . [facility] No Panel InformationOrdered By: Raeann Ch on 07-20-2023 Estimated GFR (CKD-EPI) > 60.0 mL/Min [facility] Creatinine Clearance (Chem N/A [facility] Nucleated erythrocytes [Pres ence] in Blood by Automated countOrdered By: Raeann Ch on 07-20-2023 Nucleated RBC Auto Ql (Bld) 0.1 /100{WBC} 0-0.5 [facility] Platelet mean volume Auto (B ld) [Entitic vol]Ordered By: Raeann Ch on 07-20-2023 Platelet mean volume (Bld) [Entitic vol] 8.8 fL 6.3-10.7 [facility] Platelets Auto (Bld) [#/Vol] Ordered By: Raeann Ch on 07-20-2023 Platelets (Bld) [#/Vol] 344 10*3/uL 150-450 [facility] Potassium [Moles/volume] in Serum or PlasmaOrdered By: Raeann Ch on 07-20-2023 Potassium [Moles/Vol] 4.2 mmol/L 3.5-5.1 [facility] Progesteroneon 07-20-2023 Progesterone 13.5 ng/mL Normal . [facility] Comment on above: Result Comment: Foll icular phase 0.1 - 0.9 Luteal phase 1.8 - 23.9 Ovulation phase 0.1 - 12.0 First trimester 11.0 - 44.3 Second trimester 25.4 - 83.3 Third trimester 58.7 - 214.0 Postmenopausal 0.0 - 0.1 Performed at: - [facility] [address] [id number] General Handling Supervisor: Alf Simpson PhD, Phone: [phone] Performed By: #### C RP, T4F, FSH, B12, SAKINA, FE and TIBC, LIPID, [id number], CMP, MG, TSH3, FOL #### [facility] [address] [place] [address] Protein [Mass/volume] in Ser um or PlasmaOrdered By: Raeann Ch on 07-20-2023 Protein [Mass/Vol] 7.0 g/dL 6.4-8.9 [facility] RBC Auto (Bld) [#/Vol]Ordere d By: Raeann Ch on 07-20-2023 RBC (Bld) [#/Vol] 4.11 10*6/uL 3.60-5.[address] [facility] Serum or plasma albumin/glob ulin mass ratioOrdered By: Raeann Ch on 07-20-2023 Albumin/Globulin [Mass ratio] 1.8 {ratio} [facility] Serum or plasma anion gap de terminationOrdered By: Raeann Ch on 07-20-2023 Anion gap [Moles/Vol] 11.4 mmol/L 6.0-15.0 [facility] Serum or plasma estradiol (E 2) measurement (mass/volume)Ordered By: Raeann Ch on 07-20-2023 E2 [Mass/Vol] 126.0 pg/mL . [facility] Comment on above: Adult Female: Follic ular phase 12.5 - 166.0 Ovulation phase 85.8 - 498.0 Luteal phase 43.8 - 211.0 Postmenopausal <6.0 - 54.7 1st trimester 215.0 - >4300.0Roche ECLIA methodology Serum or plasma high density lipoprotein (HDL) cholesterol measurementOrdered By: Raeann Ch on 07-20-2023 Cholesterol in HDL [Mass/Vol] 45 mg/dL 23-92 [facility] Comment on above: HDL CHOL ATP-III CLA SSIFICATION Cardiovascular RiskHDL > or equal to 60 mg/dL LOWHDL < 40 mg/dL HIGH Serum or plasma insulin michael urement (units/volume)Ordered By: Raeann Ch on 07-20-2023 Insulin Qn 8.2 u[iU]/mL 2.6-24.9 [facility] Comment on above: Performed at: [facility] [address] [id number] Director: Alf Simpson PhD, Phone: [phone] Serum or plasma lutropin mandeep surement (units/volume)Ordered By: Raeann Ch on 10-31-2023 Lutropin Qn 5.5 m[IU]/mL . [facility] Comment on above: Adult Female: Follic ular phase 2.4 - 12.6 Ovulation phase 14.0 - 95.6 Luteal phase 1.0 - 11.4 Postmenopausal 7.7 - 58.5 Serum or plasma progesterone measurement (mass/volume)Ordered By: Raeann Ch on 07-20-2023 Progesterone [Mass/Vol] 13.5 ng/mL . F [facility] Comment on above: Follicular phase 0.1 - 0.9 Luteal phase 1.8 - 23.9 Ovulation phase 0.1 - 12.0 First trimester 11.0 - 44.3 Second trimester 25.4 - 83.3 Third trimester 58.7 - 214.0 Postmenopausal 0.0 - 0.1Performed at: [facility] [id number] Director: Alf Simpson PhD, Phone: [phone] Serum or plasma total choles terol/high density lipoprotein (HDL) cholesterol mass ratOrdered By: Raeann Ch on 07-20-2023 Cholesterol.total/Choles terol in HDL [Mass ratio] 3.3 {ratio} <5.0 [facility] Sodium [Moles/volume] in Ser um or PlasmaOrdered By: Raeann Ch on 07-20-2023 Sodium [Moles/Vol] 140 mmol/L 136-145 [facility] Testosterone Free Totalon Testosterone [Mass/Vol] 25 ng/dL Normal 13-71 [facility] Comment on above: Performed By: #### C RP, T4F, FSH, B12, SAKINA, FE and TIBC, LIPID, [id number], CMP, MG, TSH3, FOL #### [facility] [address] Testosterone,Free 1.5 pg/mL Normal 0.0-4.2 [facility] Comment on above: Result Comment: Perf ormed at: [facility] [address] [id number] General Handling Supervisor: Alf Simpson PhD, Phone: [phone] Performed at: [facility] [place] [id number] General Handling Supervisor: Jayne Mann MD, Phone: [phone] Performed By: #### C RP, T4F, FSH, B12, SAKINA, FE and TIBC, LIPID, [id number], CMP, MG, TSH3, FOL #### [facility] [address] Thyroid Stimulating Hormoneo n 07-20-2023 TSH Qn 1.01 m[IU]/L Normal 0.45-5.33 [facility] Comment on above: Performed By: #### C RP, T4F, FSH, B12, SAKINA, FE and TIBC, LIPID, [id number], CMP, MG, TSH3, FOL #### [facility] [address] Thyrotropin [Units/volume] i n Serum or PlasmaOrdered By: Raeann Ch on 07-20-2023 TSH Qn 1.01 m[IU]/L 0.45-5.33 [facility] Thyroxine (T4) free [Mass/vo lume] in Serum or PlasmaOrdered By: Raeann hC on 07-20-2023 Free T4 [Mass/Vol] 0.92 ng/dL 0.61-1.12 [facility] Transferrin [Mass/volume] in Serum or PlasmaOrdered By: Raeann Ch on 07-20-2023 Transferrin [Mass/Vol] 305 mg/dL 203-362 [facility] Triglyceride [Mass/volume] i n Serum or PlasmaOrdered By: Raeann Ch on 07-20-2023 Triglyceride [Mass/Vol] 85 mg/dL 0-149 [facility] Comment on above: TRIG ATP III CLASSIF ICATIONTRIG less than 150 mg/dL NormalTRIG 150-199 mg/dL Borderline highTRIG 200-500 mg/dL High TRIG greater than 500 mg/dL Very highStandard traceable to the Center for Disease Conrtrol and Prevention (CDC) test method. Triiodothyronine (T3) Freeon 07-20-2023 Triiodothyronine (T3) Free 4.11 pg/mL High 2.50-3.90 [facility] Comment on above: Result Comment: PERF ORMED BY: [facility] [address] [facility] [place] [id number] PATHOLOGIST TAX COLLECTION COORDINATOR SADAF YOUNGBLOOD M.D. Performed By: #### C RP, T4F, FSH, B12, SAKINA, FE and TIBC, LIPID, [id number], CMP, MG, TSH3, FOL #### [facility] [address] [place] [id number] [facility] Triiodothyronine (T3) Free [ Mass/volume] in Serum or PlasmaOrdered By: Raeann Ch on 07-20-2023 Free T3 [Mass/Vol] 4.11 pg/mL 2.50-3.90 [facility] Urea nitrogen [Mass/volume] in Serum or PlasmaOrdered By: Raeann Ch on 07-20-2023 Urea nitrogen [Mass/Vol] 8 mg/dL 7-25 [facility] Vitamin B12on 07-20-2023 Cobalamin (Vitamin B12) [Mass/Vol] 384 pg/mL Normal 180-914 [facility] Comment on above: Performed By: #### C RP, T4F, FSH, B12, SAKINA, FE and TIBC, LIPID, [id number], CMP, MG, TSH3, FOL #### [facility] [address] [place] [id number] [facility] Vitamin B12 ser/plasOrdered By: Raeann Ch on 07-20-2023 Cobalamin (Vitamin B12) [Mass/Vol] 384 pg/mL 180-914 [facility] Vitamin D 25 Hydroxy Totalon 07-20-2023 Vitamin D 25 Hydroxy Total 49.5 ng/mL Normal 30-100 [facility] Comment on above: Result Comment: NATALIE MIN D STATUS 25(OH)VITAMIN D RANGE (ng/mL) Deficient <20 Insufficient 20 to <30 Sufficient 30 to 100 Reference: Ambar MF,Manish NC, Donis BASHIR, et al. Evaluation,treatment, and prevention of vitamin D deficiency; an Endocrine Society clinical practice guideline. JCEM. 2010; 96(7):1911-30. PERFORMED BY: [place] [id number] PATHOLOGIST TAX COLLECTION COORDINATOR SADAF YOUNGBLOOD M.D. Performed By: #### C RP, T4F, FSH, B12, ASKINA, FE and TIBC, LIPID, [id number], CMP, MG, TSH3, FOL #### [facility] [address] Vitamin D+Metabolites [Mass/ volume] in Serum or PlasmaOrdered By: Raeann Ch on 07-20-2023 Vitamin D+Metabolites [Mass/Vol] 49.5 ng/mL 30-100 [facility] Comment on above: VITAMIN D STATUS 25( [place])VITAMIN D RANGE (ng/mL) Deficient <20 Insufficient 20 to <30Sufficient 30 to 100Reference: Ambar MF,Manish MARTINEZ, Donis BASHIR, et al. Evaluation,treatment, and prevention of vitamin D deficiency; an Endocrine Society clinical practice guideline. JCEM. 2010; 96(7):1911-30. WBC Auto (Bld) [#/Vol]Ordere d By: Raeann Ch on 07-20-2023 WBC (Bld) [#/Vol] 6.7 10*3/uL 3.8-11.6 [facility] A1C with Estimated Average G yumiko 05-27-2023 Glucose [Mass/Vol] 94 mg/dL Normal [facility] Comment on above: Order Comment: Reaso n for Exam Chronic fatigue;Hypoglycemia Result Comment: PERF ORMED BY: [place] [address] PATHOLOGIST TAX COLLECTION COORDINATOR SADAF YOUNGBLOOD M.D. Performed By: #### C RP, T4F, FSH, B12, SAKINA, FE and TIBC, LIPID, [id number], CMP, MG, TSH3, FOL #### [facility] [address] HbA1c (Bld) [Mass fraction] 4.9 % Normal 4.3-5.6 [facility] Comment on above: Order Comment: Reaso n for Exam Chronic fatigue;Hypoglycemia Result Comment: Incr eased risk for diabetes: 5.7 - 6.4 diabetes: >6.4 glycemic control for adults with diabetes: <7.0 Performed By: #### C RP, T4F, FSH, B12, SAKINA, FE and TIBC, LIPID, [id number], CMP, MG, TSH3, FOL #### [facility] [address] Alanine aminotransferase [En zymatic activity/volume] in Serum or PlasmaOrdered By: Tiarra Childs on 05-27-2023 ALT [Catalytic activity/Vol] 10 U/L 7-52 [facility] Albumin [Mass/volume] in Ser um or Plasma by Bromocresol green (BCG) dye binding methoOrdered By: Tiarra Childs on 05-27-2023 Albumin BCG dye [Mass/Vol] 4.4 g/dL 3.5-5.7 [facility] Alkaline phosphatase [Enzyma tic activity/volume] in Serum or PlasmaOrdered By: Tiarra Childs on 05-27-2023 ALP [Catalytic activity/Vol] 53 U/L 34-104 [facility] Aspartate aminotransferase [ Enzymatic activity/volume] in Serum or PlasmaOrdered By: Tiarra Childs on 05-27-2023 AST [Catalytic activity/Vol] 20 U/L 13-39 [facility] Basophils Auto (Bld) [#/Vol] Ordered By: Tiarra Childs on 05-27-2023 Basophils (Bld) [#/Vol] 0.0 10*3/uL 0.0-0.2 [facility] Basophils/100 WBC Auto (Bld) Ordered By: Tiarra Childs on 05-27-2023 Basophils/100 WBC (Bld) 0.5 % . [facility] Bilirubin.total [Mass/volume ] in Serum or PlasmaOrdered By: Tiarra Childs on 05-27-2023 Bilirubin [Mass/Vol] 1.5 mg/dL 0.3-1.0 [facility] Comment on above: Samples from patient s who have taken Naproxen have shown spurious elevation in Total Bilirubin levels. A metabolite of Naproxen, O-desmethylnaproxen, has been shown to interfere with the Radhika method for measuring Total Bilirubin. Calcium [Mass/volume] in Ser um or PlasmaOrdered By: Tiarra Childs on 05-27-2023 Calcium [Mass/Vol] 10.0 mg/dL 8.6-10.3 [facility] Carbon dioxide, total [Moles /volume] in Serum or PlasmaOrdered By: Tiarra Childs on 05-27-2023 CO2 [Moles/Vol] 27.0 mmol/L 21.0-31.0 [facility] Chloride [Moles/volume] in S ulises or PlasmaOrdered By: Tiarra Childs on 05-27-2023 Chloride [Moles/Vol] 104 mmol/L 98-107 [facility] Choriogonadotropin.beta subu nit [Units/volume] in Serum or PlasmaOrdered By: Tiarra Childs on 05-27-2023 HCG.beta subunit Qn 400.13 m[IU]/mL [facility] Comment on above: Approximate Approxim ate hCG Gestational Age Range (mIU/ml) (weeks)0.2-1 5-50 1-2 50-500 2-3 100-5,000 3-4 500-10,000 4-5 1,000-50,000 5-6 10,000-100,000 6-8 15,000-200,000 8-12 10,000-100,000 Complete Blood Count Auto Di ffon 05-27-2023 Basophils (Bld) [#/Vol] 0.0 10*3/uL Normal 0.0-0.2 [facility] Comment on above: Order Comment: Reaso n for Exam Miscarriage Result Comment: PERF ORMED BY: [place] [address] PATHOLOGIST TAX COLLECTION COORDINATOR SADAF YOUNGBLOOD M.D. Performed By: #### C RP, T4F, FSH, B12, SAKINA, FE and TIBC, LIPID, [id number], CMP, MG, TSH3, FOL #### [address] Basophils/100 WBC (Bld) 0.5 % Normal . [facility] Comment on above: Order Comment: Reaso n for Exam Miscarriage Performed By: #### C RP, T4F, FSH, B12, SAKINA, FE and TIBC, LIPID, [id number], CMP, MG, TSH3, FOL #### [address] Eosinophils (Bld) [#/Vol] 0.1 10*3/uL Normal 0.0-0.45 [facility] Comment on above: Order Comment: Reaso n for Exam Miscarriage Performed By: #### C RP, T4F, FSH, B12, SAKINA, FE and TIBC, LIPID, [id number], CMP, MG, TSH3, FOL #### [address] Eosinophils/100 WBC (Bld) 1.5 % Normal . [facility] Comment on above: Order Comment: Reaso n for Exam Miscarriage Performed By: #### C RP, T4F, FSH, B12, SAKINA, FE and TIBC, LIPID, [id number], CMP, MG, TSH3, FOL #### [address] Erythrocyte distribution width (RBC) [Ratio] 13.2 % Normal 11.9-15.3 [facility] Comment on above: Order Comment: Reaso n for Exam Miscarriage Performed By: #### C RP, T4F, FSH, B12, SAKINA, FE and TIBC, LIPID, [id number], CMP, MG, TSH3, FOL #### [address] Hematocrit (Bld) [Volume fraction] 37.5 % Normal 34.0-46.4 [facility] Comment on above: Order Comment: Reaso n for Exam Miscarriage Performed By: #### C RP, T4F, FSH, B12, SAKINA, FE and TIBC, LIPID, [id number], CMP, MG, TSH3, FOL #### [address] Hemoglobin (Bld) [Mass/Vol] 13.1 g/dL Normal 11.8-15.4 [facility] Comment on above: Order Comment: Reaso n for Exam Miscarriage Performed By: #### C RP, T4F, FSH, B12, SAKINA, FE and TIBC, LIPID, [id number], CMP, MG, TSH3, FOL #### [address] Lymphocytes (Bld) [#/Vol] 1.8 10*3/uL Normal 1.00-4.8 [facility] Comment on above: Order Comment: Reaso n for Exam Miscarriage Performed By: #### C RP, T4F, FSH, B12, SAKINA, FE and TIBC, LIPID, [id number], CMP, MG, TSH3, FOL #### [address] Lymphocytes/100 WBC (Bld) 29.2 % Normal . [facility] Comment on above: Order Comment: Reaso n for Exam Miscarriage Performed By: #### C RP, T4F, FSH, B12, SAKINA, FE and TIBC, LIPID, [id number], CMP, MG, TSH3, FOL #### [address] MCH (RBC) [Entitic mass] 31.5 pg Normal 24.7-34.3 [facility] Comment on above: Order Comment: Reaso n for Exam Miscarriage Performed By: #### C RP, T4F, FSH, B12, SAKINA, FE and TIBC, LIPID, [id number], CMP, MG, TSH3, FOL #### [address] MCV (RBC) [Entitic vol] 90.3 fL Normal 80-100 [facility] Comment on above: Order Comment: Reaso n for Exam Miscarriage Performed By: #### C RP, T4F, FSH, B12, SAKINA, FE and TIBC, LIPID, [id number], CMP, MG, TSH3, FOL #### [address] Mean Corpuscular HGB Conc 34.9 g/dL Normal 32.0-35.0 [facility] Comment on above: Order Comment: Reaso n for Exam Miscarriage Performed By: #### C RP, T4F, FSH, B12, SAKINA, FE and TIBC, LIPID, [id number], CMP, MG, TSH3, FOL #### [address] Monocytes (Bld) [#/Vol] 0.4 10*3/uL Normal 0.0-0.8 [facility] Comment on above: Order Comment: Reaso n for Exam Miscarriage Performed By: #### C RP, T4F, FSH, B12, SAKINA, FE and TIBC, LIPID, [id number], CMP, MG, TSH3, FOL #### [address] Monocytes/100 WBC (Bld) 6.7 % Normal . T he [facility] Comment on above: Order Comment: Reaso n for Exam Miscarriage Performed By: #### C RP, T4F, FSH, B12, SAKINA, FE and TIBC, LIPID, [id number], CMP, MG, TSH3, FOL #### [address] Neutrophils (Bld) [#/Vol] 3.9 10*3/uL Normal 1.8-7.7 [facility] Comment on above: Order Comment: Reaso n for Exam Miscarriage Performed By: #### C RP, T4F, FSH, B12, SAKINA, FE and TIBC, LIPID, [id number], CMP, MG, TSH3, FOL #### [address] Neutrophils/100 WBC (Bld) 62.1 % Normal . [facility] Comment on above: Order Comment: Reaso n for Exam Miscarriage Performed By: #### C RP, T4F, FSH, B12, SAKINA, FE and TIBC, LIPID, [id number], CMP, MG, TSH3, FOL #### [address] NRBC% 0.1 /100{WBC} Normal 0-0.5 [facility] Comment on above: Order Comment: Reaso n for Exam Miscarriage Performed By: #### C RP, T4F, FSH, B12, SAKINA, FE and TIBC, LIPID, [id number], CMP, MG, TSH3, FOL #### [address] Platelet mean volume (Bld) [Entitic vol] 8.6 fL Normal 6.3-10.7 [facility] Comment on above: Order Comment: Reaso n for Exam Miscarriage Performed By: #### C RP, T4F, FSH, B12, SAKINA, FE and TIBC, LIPID, [id number], CMP, MG, TSH3, FOL #### [facility] [address] Platelets (Bld) [#/Vol] 350 10*3/uL Normal 150-450 [facility] Comment on above: Order Comment: Reaso n for Exam Miscarriage Performed By: #### C RP, T4F, FSH, B12, SAKINA, FE and TIBC, LIPID, [id number], CMP, MG, TSH3, FOL #### [facility] [address] RBC (Bld) [#/Vol] 4.15 10*6/uL Normal 3.60-5.00 [facility] Comment on above: Order Comment: Reaso n for Exam Miscarriage Performed By: #### C RP, T4F, FSH, B12, SAKINA, FE and TIBC, LIPID, [id number], CMP, MG, TSH3, FOL #### [facility] [address] WBC (Bld) [#/Vol] 6.3 10*3/uL Normal 3.8-11.6 [facility] Comment on above: Order Comment: Reaso n for Exam Miscarriage Performed By: #### C RP, T4F, FSH, B12, SAKINA, FE and TIBC, LIPID, [id number], CMP, MG, TSH3, FOL #### [facility] [address] Comprehensive Metabolic Pane maikol 05-27-2023 Albumin [Mass/Vol] 4.4 g/dL Normal 3.5-5.7 [facility] Comment on above: Order Comment: Reaso n for Exam Miscarriage Reason for Exam Chronic fatigue Reason for Exam Chronic fatigue;Hypoglycemia Performed By: #### C RP, T4F, FSH, B12, SAKINA, FE and TIBC, LIPID, [id number], CMP, MG, TSH3, FOL #### [facility] [address] Albumin/Globulin [Mass ratio] 1.5 {ratio} Normal [facility] Comment on above: Order Comment: Reaso n for Exam Miscarriage Reason for Exam Chronic fatigue Reason for Exam Chronic fatigue;Hypoglycemia Performed By: #### C RP, T4F, FSH, B12, SAKINA, FE and TIBC, LIPID, [id number], CMP, MG, TSH3, FOL #### [facility] [address] ALP [Catalytic activity/Vol] 53 U/L Normal 34-104 [facility] Comment on above: Order Comment: Reaso n for Exam Miscarriage Reason for Exam Chronic fatigue Reason for Exam Chronic fatigue;Hypoglycemia Performed By: #### C RP, T4F, FSH, B12, SAKINA, FE and TIBC, LIPID, [id number], CMP, MG, TSH3, FOL #### [address] ALT [Catalytic activity/Vol] 10 U/L Normal 7-52 [facility] Comment on above: Order Comment: Reaso n for Exam Miscarriage Reason for Exam Chronic fatigue Reason for Exam Chronic fatigue;Hypoglycemia Performed By: #### C RP, T4F, FSH, B12, SAKINA, FE and TIBC, LIPID, [id number], CMP, MG, TSH3, FOL #### [address] Anion gap [Moles/Vol] 10.1 mmol/L Normal 6.0-15.0 [facility] Comment on above: Order Comment: Reaso n for Exam Miscarriage Reason for Exam Chronic fatigue Reason for Exam Chronic fatigue;Hypoglycemia Performed By: #### C RP, T4F, FSH, B12, SAKINA, FE and TIBC, LIPID, [id number], CMP, MG, TSH3, FOL #### [address] AST [Catalytic activity/Vol] 20 U/L Normal 13-39 [facility] Comment on above: Order Comment: Reaso n for Exam Miscarriage Reason for Exam Chronic fatigue Reason for Exam Chronic fatigue;Hypoglycemia Performed By: #### C RP, T4F, FSH, B12, SAKINA, FE and TIBC, LIPID, [id number], CMP, MG, TSH3, FOL #### [address] Bilirubin [Mass/Vol] 1.5 mg/dL High 0.3-1.0 [facility] Comment on above: Order Comment: Reaso n for Exam Miscarriage Reason for Exam Chronic fatigue Reason for Exam Chronic fatigue;Hypoglycemia Result Comment: Samp les from patients who have taken Naproxen have shown spurious elevation in Total Bilirubin levels. A metabolite of Naproxen, O-desmethylnaproxen, has been shown to interfere with the Oren-Jarek method for measuring Total Bilirubin. Performed By: #### C RP, T4F, FSH, B12, SAKINA, FE and TIBC, LIPID, [id number], CMP, MG, TSH3, FOL #### [address] Calcium [Mass/Vol] 10.0 mg/dL Normal 8.6-10.3 [facility] Comment on above: Order Comment: Reaso n for Exam Miscarriage Reason for Exam Chronic fatigue Reason for Exam Chronic fatigue;Hypoglycemia Performed By: #### C RP, T4F, FSH, B12, SAKINA, FE and TIBC, LIPID, [id number], CMP, MG, TSH3, FOL #### [address] Chloride [Moles/Vol] 104 mmol/L Normal 98-107 [facility] Comment on above: Order Comment: Reaso n for Exam Miscarriage Reason for Exam Chronic fatigue Reason for Exam Chronic fatigue;Hypoglycemia Performed By: #### C RP, T4F, FSH, B12, SAKINA, FE and TIBC, LIPID, [id number], CMP, MG, TSH3, FOL #### [address] CO2 [Moles/Vol] 27.0 mmol/L Normal 21.0-31.0 [facility] Comment on above: Order Comment: Reaso n for Exam Miscarriage Reason for Exam Chronic fatigue Reason for Exam Chronic fatigue;Hypoglycemia Performed By: #### C RP, T4F, FSH, B12, SAKINA, FE and TIBC, LIPID, [id number], CMP, MG, TSH3, FOL #### [facility] [address] Creatinine [Mass/Vol] 0.74 mg/dL Normal 0.60-1.20 [facility] Comment on above: Order Comment: Reaso n for Exam Miscarriage Reason for Exam Chronic fatigue Reason for Exam Chronic fatigue;Hypoglycemia Performed By: #### C RP, T4F, FSH, B12, SAKINA, FE and TIBC, LIPID, [id number], CMP, MG, TSH3, FOL #### [facility] [address] GFR/1.73 sq M.predicted MDRD (S/P/Bld) [Vol rate/Area] mL/min/{1.73_m2} Normal [facility] Comment on above: Order Comment: Reaso n for Exam Miscarriage Reason for Exam Chronic fatigue Reason for Exam Chronic fatigue;Hypoglycemia Performed By: #### C RP, T4F, FSH, B12, SAKINA, FE and TIBC, LIPID, [id number], CMP, MG, TSH3, FOL #### [facility] [address] Globulin (S) [Mass/Vol] 3.0 g/dL Normal [facility] Comment on above: Order Comment: Reaso n for Exam Miscarriage Reason for Exam Chronic fatigue Reason for Exam Chronic fatigue;Hypoglycemia Performed By: #### C RP, T4F, FSH, B12, SAKINA, FE and TIBC, LIPID, [id number], CMP, MG, TSH3, FOL #### [facility] [address] Glucose [Mass/Vol] 73 mg/dL Normal 70-100 [facility] Comment on above: Order Comment: Reaso n for Exam Miscarriage Reason for Exam Chronic fatigue Reason for Exam Chronic fatigue;Hypoglycemia Result Comment: [facility] Glucose Reference Range is dependent on time and content of last meal. Glucose of more than 200 mg/dL in a nonstressed, ambulatory subject supports the diagnosis of Diabetes Mellitus. ADA recommended reference range Performed By: #### C RP, T4F, FSH, B12, SAKINA, FE and TIBC, LIPID, [id number], CMP, MG, TSH3, FOL #### [address] Potassium [Moles/Vol] 4.1 mmol/L Normal 3.5-5.1 [facility] Comment on above: Order Comment: Reaso n for Exam Miscarriage Reason for Exam Chronic fatigue Reason for Exam Chronic fatigue;Hypoglycemia Performed By: #### C RP, T4F, FSH, B12, SAKINA, FE and TIBC, LIPID, [id number], CMP, MG, TSH3, FOL #### [address] Protein [Mass/Vol] 7.4 g/dL Normal 6.4-8.9 [facility] Comment on above: Order Comment: Reaso n for Exam Miscarriage Reason for Exam Chronic fatigue Reason for Exam Chronic fatigue;Hypoglycemia Performed By: #### C RP, T4F, FSH, B12, SAKINA, FE and TIBC, LIPID, [id number], CMP, MG, TSH3, FOL #### [address] Sodium [Moles/Vol] 137 mmol/L Normal 136-145 [facility] Comment on above: Order Comment: Reaso n for Exam Miscarriage Reason for Exam Chronic fatigue Reason for Exam Chronic fatigue;Hypoglycemia Performed By: #### C RP, T4F, FSH, B12, SAKINA, FE and TIBC, LIPID, [id number], CMP, MG, TSH3, FOL #### [address] Urea nitrogen [Mass/Vol] 9 mg/dL Normal 7-25 [facility] Comment on above: Order Comment: Reaso n for Exam Miscarriage Reason for Exam Chronic fatigue Reason for Exam Chronic fatigue;Hypoglycemia Performed By: #### C RP, T4F, FSH, B12, SAKINA, FE and TIBC, LIPID, [id number], CMP, MG, TSH3, FOL #### [address] Creatinine [Mass/volume] in Serum or PlasmaOrdered By: Tiarra Childs on 05-27-2023 Creatinine [Mass/Vol] 0.74 mg/dL 0.60-1.20 [facility] Eosinophils Auto (Bld) [#/Vo l]Ordered By: Tiarra Childs on 05-27-2023 Eosinophils (Bld) [#/Vol] 0.1 10*3/uL 0.0-0.45 [facility] Eosinophils/100 WBC Auto (Bl d)Ordered By: Tiarra Childs on 05-27-2023 Eosinophils/100 WBC (Bld) 1.5 % . [facility] Erythrocyte distribution wid th Auto (RBC) [Ratio]Ordered By: Tiarra Childs on 05-27-2023 Erythrocyte distribution width (RBC) [Ratio] 13.2 % 11.9-15.3 [facility] Ferritinon 05-27-2023 Ferritin [Mass/Vol] 10.1 ng/mL Low 11.0-306.8 [facility] Comment on above: Order Comment: Reaso n for Exam Miscarriage Reason for Exam Chronic fatigue Reason for Exam Chronic fatigue;Hypoglycemia Performed By: #### C RP, T4F, FSH, B12, SAKINA, FE and TIBC, LIPID, [id number], CMP, MG, TSH3, FOL #### [facility] [address] Ferritin [Mass/volume] in Se rum or PlasmaOrdered By: Tiarra Childs on 05-27-2023 Ferritin [Mass/Vol] 10.1 ng/mL 11.0-306.[address] [facility] Folate [Mass/volume] in Seru m or PlasmaOrdered By: Tiarra Childs on 05-27-2023 Folate [Mass/Vol] 16.2 ng/mL >5.9 [facility] Comment on above: Folate reference ran ge: >5.9 ng/mlThe WHO technical consultation on folate and vitamin [id number] has determined that folate concentrations lessthan 4 ng/ml are considered deficient. Globulin Calc (S) [Mass/Vol] Ordered By: Tiarra Childs on 05-27-2023 Globulin (S) [Mass/Vol] 3.0 g/dL [facility] Glucose [Mass/volume] in Ser um or PlasmaOrdered By: Tiarra Childs on 05-27-2023 Glucose [Mass/Vol] 73 mg/dL 70-100 [facility] Comment on above: ADA recommended refe rence rangeRandom Glucose Reference Range is dependent on time and content of last meal. Glucose of more than 200 mg/dL in a nonstressed, ambulatory subject supports the diagnosis of Diabetes Mellitus. Glucose mean value [Mass/vol ume] in Blood Estimated from glycated hemoglobinOrdered By: Tiarra Childs on 05-27-2023 Average glucose Estimated from glycated hemoglobin (Bld) [Mass/Vol] 94 mg/dL [facility] HCG,Quantitativeon HCG,Quantitative 400.13 m[iU]/mL Normal [facility] Comment on above: Order Comment: Reaso n for Exam Miscarriage Reason for Exam Chronic fatigue Reason for Exam Chronic fatigue;Hypoglycemia Result Comment: Appr oximate Approximate hCG Gestational Age Range (mIU/ml) (weeks) 0.2-1 5-50 1-2 50-500 2-3 100-5,000 3-4 500-10,000 4-5 1,000-50,000 5-6 10,000-100,000 6-8 15,000-200,000 8-12 10,000-100,000 Performed By: #### C RP, T4F, FSH, B12, SAKINA, FE and TIBC, LIPID, [id number], CMP, MG, TSH3, FOL #### [address] Hematocrit Auto (Bld) [Volum e fraction]Ordered By: Tiarra Childs on 05-27-2023 Hematocrit (Bld) [Volume fraction] 37.5 % 34.0-46.4 [facility] Hemoglobin A1c percentageOrd ered By: Tiarra Childs on 05-27-2023 HbA1c (Bld) [Mass fraction] 4.9 % 4.3-5.6 [facility] Comment on above: Increased risk for d iabetes: 5.7 - 6.4diabetes: >6.4glycemic control for adults with diabetes: <7.0 Hemoglobin [Mass/volume] in BloodOrdered By: Tiarra Childs on 05-27-2023 Hemoglobin (Bld) [Mass/Vol] 13.1 g/dL 11.8-15.4 [facility] Insulinon 05-27-2023 Insulin 5.5 u[iU]/mL Normal 2.6-24.9 [facility] Comment on above: Order Comment: Reaso n for Exam Chronic fatigue Result Comment: Perf ormed at: - [facility] [address] [id number] General Handling Supervisor: Alf Simpson PhD, Phone: [phone] PERFORMED BY: [place] [address] PATHOLOGIST TAX COLLECTION COORDINATOR SADAF YOUNGBLOOD M.D. Performed By: #### C RP, T4F, FSH, B12, SAKINA, FE and TIBC, LIPID, [id number], CMP, MG, TSH3, FOL #### [address] Iron [Mass/volume] in Serum or PlasmaOrdered By: Tiarra Childs on 05-27-2023 Iron [Mass/Vol] 94 ug/dL 50-212 [facility] Iron and TIBC Profileon % Iron Saturation 18.3 % Low 20-50 [facility] Comment on above: Order Comment: Reaso n for Exam Miscarriage Reason for Exam Chronic fatigue Reason for Exam Chronic fatigue;Hypoglycemia Performed By: #### C RP, T4F, FSH, B12, SAKINA, FE and TIBC, LIPID, [id number], CMP, MG, TSH3, FOL #### [facility] [address] [place] [address] Iron [Mass/Vol] 94 ug/dL Normal 50-212 [facility] Comment on above: Order Comment: Reaso n for Exam Miscarriage Reason for Exam Chronic fatigue Reason for Exam Chronic fatigue;Hypoglycemia Performed By: #### C RP, T4F, FSH, B12, SAKINA, FE and TIBC, LIPID, [id number], CMP, MG, TSH3, FOL #### [address] Total Iron Binding Capacity 514 ug/dL High 255-450 [facility] Comment on above: Order Comment: Reaso n for Exam Miscarriage Reason for Exam Chronic fatigue Reason for Exam Chronic fatigue;Hypoglycemia Performed By: #### C RP, T4F, FSH, B12, SAKINA, FE and TIBC, LIPID, [id number], CMP, MG, TSH3, FOL #### [facility] [address] [place] [id number] [facility] Transferrin [Mass/Vol] 367 mg/dL High 203-362 [facility] Comment on above: Order Comment: Reaso n for Exam Miscarriage Reason for Exam Chronic fatigue Reason for Exam Chronic fatigue;Hypoglycemia Performed By: #### C RP, T4F, FSH, B12, SAKINA, FE and TIBC, LIPID, [id number], CMP, MG, TSH3, FOL #### [facility] [address] [place] [id number] [facility] Iron binding capacity [Mass/ volume] in Serum or PlasmaOrdered By: Tiarra Childs on 05-27-2023 Iron binding capacity [Mass/Vol] 514 ug/dL 255-450 [facility] Iron saturation [Mass Fracti on] in Serum or PlasmaOrdered By: Tiarra Childs on 05-27-2023 Iron saturation [Mass fraction] 18.3 % 20-50 [facility] Leukocytes [#/volume] correc paulie for nucleated erythrocytes in Blood by Automated counOrdered By: Tiarra Childs on 05-27-2023 WBC corrected for nucl RBC Auto (Bld) [#/Vol] 6.3 10*3/uL 3.8-11.6 [facility] Lymphocytes Auto (Bld) [#/Vo l]Ordered By: Tiarra Childs on 05-27-2023 Lymphocytes (Bld) [#/Vol] 1.8 10*3/uL 1.00-4.8 [facility] Lymphocytes/100 WBC Auto (Bl d)Ordered By: Tiarra Childs on 05-27-2023 Lymphocytes/100 WBC (Bld) 29.2 % . [facility] MCH Auto (RBC) [Entitic mass ]Ordered By: Tiarra Childs on 05-27-2023 MCH (RBC) [Entitic mass] 31.5 pg 24.7-34.3 [facility] MCHC Auto (RBC) [Mass/Vol]Or dered By: Tiarra Childs on 05-27-2023 MCHC (RBC) [Mass/Vol] 34.9 g/dL 32.0-35.0 [facility] MCV Auto (RBC) [Entitic vol] Ordered By: Tiarra Childs on 05-27-2023 MCV (RBC) [Entitic vol] 90.3 fL 80-100 F [facility] Monocytes Auto (Bld) [#/Vol] Ordered By: Tiarra Childs on 05-27-2023 Monocytes (Bld) [#/Vol] 0.4 10*3/uL 0.0-0.8 [facility] Monocytes/100 WBC Auto (Bld) Ordered By: Tiarra Childs on 05-27-2023 Monocytes/100 WBC (Bld) 6.7 % . [facility] Neutrophils Auto (Bld) [#/Vo l]Ordered By: Tiarra Childs on 05-27-2023 Neutrophils (Bld) [#/Vol] 3.9 10*3/uL 1.8-7.7 [facility] Neutrophils/100 WBC Auto (Bl d)Ordered By: Tiarra Childs on 05-27-2023 Neutrophils/100 WBC (Bld) 62.1 % . [facility] No Panel InformationOrdered By: Tiarra Childs on 05-27-2023 Estimated GFR (CKD-EPI) > 60.0 mL/Min [facility] Creatinine Clearance (Chem N/A [facility] Nucleated erythrocytes [Pres ence] in Blood by Automated countOrdered By: Tiarra Childs on 05-27-2023 Nucleated RBC Auto Ql (Bld) 0.1 /100{WBC} 0-0.5 [facility] Platelet mean volume Auto (B ld) [Entitic vol]Ordered By: Tiarra Childs on 05-27-2023 Platelet mean volume (Bld) [Entitic vol] 8.6 fL 6.3-10.7 [facility] Platelets Auto (Bld) [#/Vol] Ordered By: Tiarra Childs on 09-07-2023 Platelets (Bld) [#/Vol] 350 10*3/uL 150-450 [facility] Potassium [Moles/volume] in Serum or PlasmaOrdered By: Tiarra Childs on 05-27-2023 Potassium [Moles/Vol] 4.1 mmol/L 3.5-5.1 [facility] Protein [Mass/volume] in Ser um or PlasmaOrdered By: Tiarra Childs on 05-27-2023 Protein [Mass/Vol] 7.4 g/dL 6.4-8.9 [facility] RBC Auto (Bld) [#/Vol]Ordere d By: Tiarra Childs on 05-27-2023 RBC (Bld) [#/Vol] 4.15 10*6/uL 3.60-5.[address] [facility] Serum or plasma albumin/glob ulin mass ratioOrdered By: Tiarra Childs on 05-27-2023 Albumin/Globulin [Mass ratio] 1.5 {ratio} [facility] Serum or plasma anion gap de terminationOrdered By: Tiarra Childs on 05-27-2023 Anion gap [Moles/Vol] 10.1 mmol/L 6.0-15.0 [facility] Serum or plasma insulin michael urement (units/volume)Ordered By: Tiarra Childs on 05-27-2023 Insulin Qn 5.5 u[iU]/mL 2.6-24.9 [facility] Comment on above: Performed at: [place] [id number] Director: Alf Simpson PhD, Phone: [phone] Sodium [Moles/volume] in Ser um or PlasmaOrdered By: Tiarra Childs on 05-27-2023 Sodium [Moles/Vol] 137 mmol/L 136-145 [facility] THYROID SCREENon 05-27-2023 Free T4 [Mass/Vol] 0.80 ng/dL Normal 0.61-1.12 [facility] Comment on above: Order Comment: Reaso n for Exam Miscarriage Reason for Exam Chronic fatigue Reason for Exam Chronic fatigue;Hypoglycemia Performed By: #### C RP, T4F, FSH, B12, SAKINA, FE and TIBC, LIPID, [id number], CMP, MG, TSH3, FOL #### [facility] [address] TSH Qn 0.95 m[IU]/L Normal 0.45-5.33 [facility] Comment on above: Order Comment: Reaso n for Exam Miscarriage Reason for Exam Chronic fatigue Reason for Exam Chronic fatigue;Hypoglycemia Performed By: #### C RP, T4F, FSH, B12, SAKINA, FE and TIBC, LIPID, [id number], CMP, MG, TSH3, FOL #### [facility] [address] Thyrotropin [Units/volume] i n Serum or PlasmaOrdered By: Tiarra Childs on 05-27-2023 TSH Qn 0.95 m[IU]/L 0.45-5.33 [facility] Thyroxine (T4) free [Mass/vo lume] in Serum or PlasmaOrdered By: Tiarra Childs on 05-27-2023 Free T4 [Mass/Vol] 0.80 ng/dL 0.61-1.12 [facility] Transferrin [Mass/volume] in Serum or PlasmaOrdered By: Tiarra Childs on 05-27-2023 Transferrin [Mass/Vol] 367 mg/dL 203-362 [facility] Urea nitrogen [Mass/volume] in Serum or PlasmaOrdered By: Tiarra Childs on 05-27-2023 Urea nitrogen [Mass/Vol] 9 mg/dL 7-25 [facility] Vit. B12/Folate Profileon Cobalamin (Vitamin B12) [Mass/Vol] 340 pg/mL Normal 180-914 [facility] Comment on above: Order Comment: Reaso n for Exam Miscarriage Reason for Exam Chronic fatigue Reason for Exam Chronic fatigue;Hypoglycemia Performed By: #### C RP, T4F, FSH, B12, SAKINA, FE and TIBC, LIPID, [id number], CMP, MG, TSH3, FOL #### [facility] [address] Folate 16.2 ng/mL Normal >5.9 [facility] Comment on above: Order Comment: Reaso n for Exam Miscarriage Reason for Exam Chronic fatigue Reason for Exam Chronic fatigue;Hypoglycemia Result Comment: Yulia te reference range: >5.9 ng/ml The WHO technical consultation on folate and vitamin b12 deficiencies has determined that folate concentrations less than 4 ng/ml are considered deficient. Performed By: #### C RP, T4F, FSH, B12, SAKINA, FE and TIBC, LIPID, [id number], CMP, MG, TSH3, FOL #### [facility] [address] Vitamin B12 ser/plasOrdered By: Tiarra Childs on 05-27-2023 Cobalamin (Vitamin B12) [Mass/Vol] 340 pg/mL 180-914 [facility] Vitamin D 25 Hydroxy Totalon 05-27-2023 Vitamin D 25 Hydroxy Total 43.5 ng/mL Normal 30-100 [facility] Comment on above: Order Comment: Reaso n for Exam Miscarriage Reason for Exam Chronic fatigue Reason for Exam Chronic fatigue;Hypoglycemia Result Comment: NATALIE MIN D STATUS 25(OH)VITAMIN D RANGE (ng/mL) Deficient <20 Insufficient 20 to <30 Sufficient 30 to 100 Reference: Ambar PEREZ,Manish NC, Donis BASHIR, et al. Evaluation,treatment, and prevention of vitamin D deficiency; an Endocrine Society clinical practice guideline. JCEM. 2010; 96(7):1911-30. PERFORMED BY: [place] [address] PATHOLOGIST TAX COLLECTION COORDINATOR SADAF YOUNGBLOOD M.D. Performed By: #### C RP, T4F, FSH, B12, SAKINA, FE and TIBC, LIPID, [id number], CMP, MG, TSH3, FOL #### [address] Vitamin D+Metabolites [Mass/ volume] in Serum or PlasmaOrdered By: Tiarra Childs on 05-27-2023 Vitamin D+Metabolites [Mass/Vol] 43.5 ng/mL 30-100 [facility] Comment on above: VITAMIN D STATUS 25( [place])VITAMIN D RANGE (ng/mL) Deficient <20 Insufficient 20 to <30Sufficient 30 to 100Reference: Ambar MF,Manish NC, Donis BASHIR, et al. Evaluation,treatment, and prevention of vitamin D deficiency; an Endocrine Society clinical practice guideline. JCEM. 2010; 96(7):1911-30. WBC Auto (Bld) [#/Vol]Ordere d By: Tiarra Childs on 05-27-2023 WBC (Bld) [#/Vol] 6.3 10*3/uL 3.8-11.6 [facility] BioFire Not Detectedon 02-12 BioFire Not Detected Not detected Normal Not Detecte [facility] Comment on above: Result Comment: This is a duplicate RP2.1 COVID (PCR) result to be used for statistical tracking purpose only. PERFORMED BY: [facility] [address] [place] [address] PATHOLOGIST TAX COLLECTION COORDINATOR SADAF YOUNGBLOOD M.D. Performed By: #### C RP, T4F, FSH, B12, SAKINA, FE and TIBC, LIPID, [id number], CMP, MG, TSH3, FOL #### [facility] [address] Respiratory (Upper) Panel, P CRon 02-12-2023 Respiratory (Upper) Panel, PCR Reason for Exam Sinus congestion;Acute cough;Acute nonintractable headache, Adenovirus Not detected Bordetella parapertussis Not detected Chlamydia pneumoniae Not detected Coronavirus 229E Not detected Coronavirus HKU1 Not detected Coronavirus NL63 Not detected Coronavirus OC43 Not detected Influenza A Not detected Influenza B Not detected Human Metapneumovirus Not detected Mycoplasma pneumoniae Not detected Parainfluenza Virus 1 Not detected Parainfluenza Virus 2 Not detected Parainfluenza Virus 3 Not detected Parainfluenza Virus 4 Not detected Bordetella pertussis-ptxP Not detected Human Rhino/Enterovirus Detected Resp. Syncytial Virus Not detected COVID-19 Detected/Not Detected Not detected Blank Space -- FLUA TEST INCLUDES Influenza A tests for the following clinically FLUA TEST INCLUDES significant subtypes: FLUA TEST INCLUDES - Influenza A FLUA TEST INCLUDES - Influenza A H1 FLUA TEST INCLUDES - Influenza A H1 2009 FLUA TEST INCLUDES - Influenza A H3 Blank Space -- PERFORMED BY: [place] [address] PATHOLOGIST TAX COLLECTION COORDINATOR SADAF YOUNGBLOOD M.D. Normal [facility] Comment on above: Performed By: #### C RP, T4F, FSH, B12, SAKINA, FE and TIBC, LIPID, [id number], CMP, MG, TSH3, FOL #### [facility] [address] [place] [address] Urine Cultureon 01-12-2023 Bacteria identified Cx Nom (U) Reason for Exam Urinary frequency Urine <9,000 colonies/ml mixed bacterial skin contaminants 2 Days PERFORMED BY: [place] [address] PATHOLOGIST TAX COLLECTION COORDINATOR SADAF YOUNGBLOOD M.D. Normal [facility] Comment on above: Performed By: #### C RP, T4F, FSH, B12, SAKINA, FE and TIBC, LIPID, UNGB19PR, CMP, MG, TSH3, FOL #### [facility] [address] [place] [address] COVID-19 Detected/Not Detect edOrdered By: Tiarra Childs on 12-09-2022 SARS-CoV-2 (COVID-19) RNA KYLAH+non-probe Ql (Nph) Not detected Not Detecte [facility] Comment on above: This is a duplicate RP2.1 COVID (PCR) result to be used for statistical tracking purpose only. Respiratory pathogens DNA an d RNA panel - Nasopharynx by KYLAH with non-probe detectionOrdered By: Tiarra Childs on 12-09-2022 Respiratory pathogens DNA and RNA panel KYLAH+non-probe (Nph) [facility] CBC AUTO DIFFon 12-04-2022 BASO # 0.0 103/ul Normal 0.0-0.1 [facility] Comment on above: Performed By: #### C BC #### [facility] [address] [place] [address] Dr. Angelica Smith Basophils/100 WBC (Bld) 0.7 % Normal 0.2-2.[address] [facility] Comment on above: Performed By: #### C BC #### [facility] [address] [place] [address] Dr. Angelica Smith EO # 0.1 103/ul Normal 0.0-0.7 [facility] Comment on above: Performed By: #### C BC #### [facility] [address] [place] [address] Dr. Angelica Smith Eosinophils/100 WBC (Bld) 1.1 % Normal 0.9-7.0 [facility] Comment on above: Performed By: #### C BC #### [facility] [address] [place] [address] Dr. Angelica Smith Erythrocyte distribution width (RBC) [Ratio] 12.1 % Normal 11.0-15.0 [facility] Comment on above: Performed By: #### C BC #### [facility] [address] [place] [address] Dr. Angelica Smith Hematocrit (Bld) [Volume fraction] 39.3 % Normal 36.0-48.0 [facility] Comment on above: Performed By: #### C BC #### [facility] [address] [place] [address] Dr. Angelica Smith Hemoglobin (Bld) [Mass/Vol] 13.3 g/dL Normal 12.0-16.0 [facility] Comment on above: Performed By: #### C BC #### [facility] [address] [place] [address] Dr. Angelica Smith IG # 0.01 10e3/ul Normal 0.00-0.03 [facility] Comment on above: Performed By: #### C BC #### [facility] [address] [place] [address] Dr. Angelica Smith IG % 0.2 % Normal 0.0-0.5 [facility] Comment on above: Performed By: #### C BC #### [facility] [address] [place] [address] Dr. Angelica Smith LYMPH # 1.9 103/ul Normal 1.2-3.8 [facility] Comment on above: Performed By: #### C BC #### [facility] [address] [place] [address] Dr. Angelica Smith Lymphocytes/100 WBC (Bld) 31.4 % Normal 20.5-60.0 [facility] Comment on above: Performed By: #### C BC #### [facility] [address] [place] [address] Dr. Angelica Smith MANUAL DIFF REQ NO Normal [facility] Comment on above: Performed By: #### C BC #### [facility] [address] [place] [address] Dr. Angelica Smith MCH (RBC) [Entitic mass] 30.3 pg Normal 26.7-34.0 [facility] Comment on above: Performed By: #### C BC #### [facility] [address] [place] [address] Dr. Angelica Smith MCHC (RBC) [Mass/Vol] 33.8 g/dL Normal 29.9-35.2 [facility] Comment on above: Performed By: #### C BC #### [facility] [address] [place] [address] Dr. Angelica Smith MCV (RBC) [Entitic vol] 89.5 fL Normal 81.0-99.[address] [facility] Comment on above: Performed By: #### C BC #### [facility] [address] [place] [address] Dr. Angelica Smith MONO # 0.5 103/ul Normal 0.3-0.8 [facility] Comment on above: Performed By: #### C BC #### [facility] [address] [place] [address] Dr. Angelica Smith Monocytes/100 WBC (Bld) 7.4 % Normal 1.7-12.0 [facility] Comment on above: Performed By: #### C BC #### [facility] [address] [place] [address] Dr. Angelica Smith NEUT # 3.6 103/ul Normal 1.4-6.5 [facility] Comment on above: Performed By: #### C BC #### [facility] [address] [place] [address] Dr. Angelica Smith Neutrophils/100 WBC (Bld) 59.2 % Normal 43.0-75.0 [facility] Comment on above: Performed By: #### C BC #### [facility] [address] [place] [address] Dr. Angelica Smith Platelet mean volume (Bld) [Entitic vol] 9.7 fL Normal 9.5-13.5 [facility] Comment on above: Performed By: #### C BC #### [facility] [address] [place] [address] Dr. Angelica Smith PLT 289 103/ul Normal 150-450 [facility] Comment on above: Performed By: #### C BC #### [facility] [address] [place] [address] Dr. Angelica Smith RBC 4.39 106/ul Normal 4.20-5.40 [facility] Comment on above: Performed By: #### C BC #### [facility] [address] [place] [address] Dr. Angelica Smith WBC 6.1 103/ul Normal 4.0-11.0 [facility] Comment on above: Performed By: #### C BC #### [facility] [address] [place] [address] Dr. Angelica Smith PREG QUANT HCGon 12-04-2022 HCG QUANT <1 Normal [facility] Comment on above: Performed By: #### P REGQNT #### [facility] [address] [place] [address] Dr. Angelica Smith HCG RANGE SEE BELOW Normal [facility] Comment on above: Result Comment: 5-50 0.2-1 WEEK 50-500 1-2 WEEKS 100-5,000 2-3 WEEKS 500-10,000 3-4 WEEKS 1,000-50,000 4-5 WEEKS 10,000-100,000 5-6 WEEKS 15,000-200,000 6-8 WEEKS 10,000-100,000 2-3 MONTHS Performed By: #### P REGQNT #### [facility] [address] [place] [address] Dr. Angelica Smith Albumin [Mass/volume] in Ser um or PlasmaOrdered By: Tiarra Childs on 10-29-2022 Albumin [Mass/Vol] 4.3 g/dL 3.2-5.5 [facility] Alternaria alternata IgE Ab [Units/volume] in SerumOrdered By: Tiarra Childs on 10-29-2022 A. alternata IgE Qn (S) <0.10 kU/L Class 0 [facility] Jamaican house dust mite IgE Ab [Units/volume] in SerumOrdered By: Tiarra Childs on 10-29-2022 Jamaican house dust mite IgE Qn (S) 0.10 kU/L Class 0/I [facility] Aspergillus fumigatus IgE Ab [Units/volume] in SerumOrdered By: Tiarra Childs on 10-29-2022 A. fumigatus IgE Qn (S) <0.10 kU/L Class 0 [facility] Shaffer's yeast IgE Ab [Units/ volume] in SerumOrdered By: Tiarra Childs on 10-29-2022 Shaffer's yeast IgE Qn (S) <0.10 kU/L Class 0 [facility] Comment on above: Performed at: [address] [id number] Director: Jayne Mann MD, Phone: [phone] Banana IgE Ab [Units/volume] in SerumOrdered By: Tiarra Childs on 10-29-2022 Banana IgE Qn (S) <0.10 kU/L Class 0 [facility] Barley IgE Ab [Units/volume] in SerumOrdered By: Tiarra Childs on 10-29-2022 Barley IgE Qn (S) 0.40 kU/L Class I [facility] Beef IgE Ab [Units/volume] i n SerumOrdered By: Tiarra Childs on 10-29-2022 Beef IgE Qn (S) <0.10 kU/L Class 0 [facility] Bermuda grass IgE Ab [Units/ volume] in SerumOrdered By: Tiarra Childs on 10-29-2022 Bermuda grass IgE Qn (S) <0.10 kU/L Class 0 [facility] Boxelder IgE Ab [Units/volum e] in SerumOrdered By: Tiarra Childs on 10-29-2022 Boxelder IgE Qn (S) <0.10 kU/L Class [address] [facility] Cheese cheddar type IgE Ab [ Units/volume] in SerumOrdered By: Tiarra Childs on 10-29-2022 Cheese cheddar type IgE Qn (S) <0.10 kU/L Class 0 [facility] Cladosporium herbarum IgE Ab [Units/volume] in SerumOrdered By: Tiarra Childs on 10-29-2022 C. herbarum IgE Qn (S) <0.10 kU/L Class 0 [facility] Cockroach IgE Ab [Units/volu me] in SerumOrdered By: Tiarra Childs on 10-29-2022 Cockroach IgE Qn (S) 0.44 kU/L Class I [facility] Glenfield IgE Ab [Units/volume] i n SerumOrdered By: Tiarra Chilsd on 10-29-2022 Glenfield IgE Qn (S) <0.10 kU/L Class 0 [facility] Warrick IgE Ab [Units/vol ume] in SerumOrdered By: Tiarra Childs on 10-29-2022 Warrick IgE Qn (S) <0.10 kU/L Class 0 [facility] Cow milk IgE Ab [Units/volum e] in SerumOrdered By: Tiarra Childs on 10-29-2022 Cow milk IgE Qn (S) <0.10 kU/L Class [address] [facility] Creatinine and Glomerular fi ltration rate.predicted panel (S/P/Bld)Ordered By: Tiarra Childs on 10-29-2022 Creatinine [Mass/Vol] 0.65 mg/dL 0.44-1.03 [facility] Dog dander IgE Ab [Units/vol ume] in SerumOrdered By: Tiarra Childs on 10-29-2022 Dog dander IgE Qn (S) 0.12 kU/L Class 0/I [facility] Estimated glomerular filtrat ion rate (GFR) non- AmericanOrdered By: Tiarra Childs on 10-29-2022 GFR/1.73 sq M.predicted among non-blacks MDRD (S/P/Bld) [Vol rate/Area] > 60 mL/Min [facility] house dust mite IgE Ab [Units/volume] in SerumOrdered By: Tiarra Childs on 10-29-2022 house dust mite IgE Qn (S) 0.26 kU/L Class 0/I [facility] Free testosterone measuremen t by LC-MS/MSOrdered By: Tiarra Childs on 10-29-2022 Testosterone Free [Mass/Vol] 3.7 pg/mL 0.0-4.2 [facility] Comment on above: Performed at: [address] [id number] Director: Alf Simpson PhD, Phone: [phone] at: [facility] [place] [id number] Director: Jayne Mann MD, Phone: [phone] Gluten IgE Ab [Units/volume] in SerumOrdered By: Tiarra Childs on 10-29-2022 Gluten IgE Qn (S) <0.10 kU/L Class 0 [facility] Hepatitis B virus surface Ag [Presence] in Serum or Plasma by ImmunoassayOrdered By: Tiarra Childs on 10-29-2022 HBV surface Ag IA Ql Negative Negative [facility] Hepatitis C virus RNA [Units /volume] (viral load) in Serum or Plasma by KYLAH with probOrdered By: Tiarra Childs on 10-29-2022 HCV RNA KYLAH+probe Qn N/A [facility] Hepatitis C virus RNA [log u nits/volume] (viral load) in Serum or Plasma by KYLAH withOrdered By: Tiarra Childs on 10-29-2022 HCV RNA KYLAH+probe [Log units/Vol] N/A [facility] Human leukocyte antigen (HLA ) DQ2 detectionOrdered By: Tiarra Childs on 10-29-2022 HLA-DQ2 Ql (Bld/Tiss) Negative . [facility] Human leukocyte antigen (HLA ) DQ8 detectionOrdered By: Tiarra Childs on 10-29-2022 HLA-DQ8 Ql (Bld/Tiss) Negative . [facility] Comment on above: Final Results:DQA1*0 5:EETCV,-DQB1*03:EETKC,-Code Translation:EETCV 05:09/24:01/22:05/25:07/25:08/24:30/01::02/02:17:20:24:25:26 :28:29Q/05:30/05:32/05:34/05:35 /05:37/05:39/05:42/05:43/05:44/05:45/05:46 /05:48/05:50/05:51/05:53/05:58/05:59/05:60 /05:62/05:64EETKC 03:01/03:1003:16/03:19/03:21/03:22/03:24 /03:27/03:28/03:29/03:35/03:36/03:42/03:44 /03:46/03:47/03:48/03:49/03:50/03:51/03:52 /03:53/03:54/03:55/03:56/03:57/03:58/03:59 /03:60/03:69/03:73/03:75/03:76/03:77/03:78 /03:82/03:83/03:84N/03:92/03:93/03:94 /03:101/03:102/03:103/03:108/03:109/03:114 /03:115/03:116/03:118N/03:119/03:120 /03:121/03:122/03:127/03:128/03:129/03:130 /03:131/03:133/03:134/03:135/03:139/03:140 /03:142/03:143/03:144/03:147/03:148/03:151 /03:152/03:154/03:157/03:158/03:159/03:160 /03:162/03:163/03:164/03:165/03:166/03:167 /03:169/03:170/03:171/03:173/03:182/03:183 /03:186/03:188/03:191/03:192/03:193/03:196 /03:197Q/03:198/03:201/03:202/03:206 /03:207/03:208/03:216/03:218/03:219/03:231 /03:232/03:235/03:236/03:241/03:242/03:243 /03:246/03:252/03:253/03:254/03:255/03:257 /03:260/03:264/03:266/03:267/03:268/03:271 /03:275/03:276N/03:281/03:284/03:285 /03:288/03:290/03:291/03:292/03:293/03:294 /03:297/03:302/03:303N/03:305/03:306 /03:307/03:309/03:311/03:312/03:314/03:317 /03:326/03:328/03:329/03:330/03:331 /03:338N/03:340N/03:341/03:342/03:347 /03:350/03:353/03:354N/03:358N/03:361 /03:366/03:370/03:372/03:373/03:377/03:378 /03:380/03:385N/03:387/03:389/03:390 /03:391/03:394/03:396/03:399N/03:400N /03:404/03:407N/03:408/03:417/03:418 /03:419/03:420/03:421/03:423/03:424/03:425 /03:426/03:427N/03:428/03:430/03:431 /03:432/03:434/03:435/03:436/03:438/03:439 /03:448/03:449/03:451/03:454/03:455/03:458 /03:460/03:465/03:467/03:468/03:469/03:470 /03:472/03:473N/03:475/03:476/03:480Q /03:482/03:483/03:486/03:488N/03:491/03:492The patient is positive for DQA1*05, one half of the HL1cwjkvswjeio. The Celiac Disease risk from the HLA DQA/DQBgenotype is approximately 1:1842 (0.05%). This is lessthan the 1% risk in the general population.Allele interpretation for all loci based on IMGT/HLAdatabase version 3.49.0[facility] HospitalIA ID Number [id number] than 95% of celiac patients are positive for eitherDQ2 or DQ8 (Kirt and Neela, (1993) Eahlgkfwbmmaxvpa145:910-922). However these antigens may also be present inpatients who do not have Celiac disease. IgE [Units/volume] in Serum or PlasmaOrdered By: Tiarra Childs on 10-29-2022 IgE Qn 5 [IU]/mL 6-495 [facility] - Chemistry and C hemistry - challengeOrdered By: Tiarra Childs on 10-29-2022 Testosterone [Mass/Vol] 41 ng/dL 13-71 F [facility] Mountain Juniper IgE Ab [Uni ts/volume] in SerumOrdered By: Tiarra Childs on 10-29-2022 Mountain Juniper IgE Qn (S) 0.19 kU/L Class 0/I [facility] Mouse urine proteins IgE Ab [Units/volume] in SerumOrdered By: Tiarra Childs on 10-29-2022 Mouse urine proteins IgE Qn (S) <0.10 kU/L Class 0 [facility] No Panel InformationOrdered By: Tiarra Childs on 10-29-2022 Allergen Note See comment . [facility] Comment on above: Levels of Specific I gE Class Description of Class ----- < 0.10 0 Negative 0.10 - 0.31 0/I Equivocal/Low 0.32 - 0.55 I Low 0.56 - 1.40 II Moderate 1.41 - 3.90 III High 3.91 - 19.00 IV Very High 19.01 - 100.00 V Very High >100.00 Very High C-Peptide 1.7 ng/mL 1.1-4.4 [facility] Comment on above: C-Peptide reference interval is for fasting patients.Performed at: [facility] Director: Alf Simpson PhD, Phone: [phone] Celiac Gene Interpretation See comment . [facility] Comment on above: References:1. Fidel CROOKS and Krystin Lock. Celiac Disease. N Eng J Med 2007; 357:7695-6059.2. Megiorni F, Sinclair B, Bonamico M et al. HLA-DQ and risk gradient for celiac disease. Hum Immunol 2009; 70:55-59.3. Piearacelisak MM, Riviera TC, Raven FM et al. Stratifying risk for celiac disease in a large at-risk [place] population by using HLA alleles. Clin Gastroenterol Hepatol 2009; 7:966-971.4. Kirt PALMER and Kieran BA. (2005). Celiac Disease Genetics: Current Concepts and Practical Applications. Clin Gastroenterol and Hepat 3:843-851.5. Yamile CL, Andrew DO, Fidel CROOKS, et al. Celiac Disease. In: Lori HENSON, Sang TC, Nigel CR, Je K, editors. Chris ([employer]), [facility], [place], March 22, 2008:-27. http://www.ncbi.nlm.nih.gov/bookszahra/br.fcgi?book=genepart=c renzo PMID [id number] (PubMed)6. Luis W. Emerging concepts in celiac disease. Curr Opin Pediatr 2004;16:552-559.Performed at: - [facility] [id number] [place], [place] [id number] Director: Dajuan Dickinson PhD, Phone: [phone] Dehydroepiandrosterone Sulfate 368.0 ug/dL 110.0-431. 7 [facility] Estimated GFR () > 60 mL/Min [facility] Comment on above: GFR estimated refere nce range: According to KDOQI guidelines, <60 ml/min/1.73m2 is sufficient to diagnose a patient with chronic kidney disease. Hepatitis A IgM Antibody Negative Negative [facility] Hepatitis B Core IgM Antibody Negative Negative [facility] Hepatitis C Interpretation See comment . [facility] Comment on above: NegativeNot infected with HCV, unless recent infection issuspected or other evidence exists to indicate HCVinfection.Performed at: - [facility] [id number] Director: Alf Simpson PhD, Phone: [phone] Hepatitis C RNA Quantitative N/A [facility] HLA Genotype Interpretation See comment . [facility] Comment on above: This test was perfor med using Polymerase ChainReaction/(PCR)Sequence Specific Oligonucleotide Probes(SSOP) ([employer]) technique. Sequence Based Typing (SBT)and/or Sequence Specific Primers (SSP) may be used assupplemental methods when necessary. Please contact HLACustomer Service at if you have anyquestions.Director of HLA LaboratoryDr Dajuan Dickinson, PhD Pharmacy Creatinine Clearance (Chem N/A [facility] Oat IgE Ab [Units/volume] in SerumOrdered By: Tiarra Childs on 10-29-2022 Oat IgE Qn (S) 0.32 kU/L Class I [facility] Gilman IgE Ab [Units/volume] in SerumOrdered By: Tiarra Childs on 10-29-2022 Gilman IgE Qn (S) <0.10 kU/L Class 0 [facility] Peanut IgE Ab [Units/volume] in SerumOrdered By: Tiarra Childs on 10-29-2022 Peanut IgE Qn (S) <0.10 kU/L Class 0 [facility] Pecan or [place]on Tree IgE Ab [Units/volume] in SerumOrdered By: Tiarra Childs on 10-29-2022 Pecan or [place] Tree IgE Qn (S) <0.10 kU/L Class 0 [facility] Phosphate [Mass/volume] in S ulises or PlasmaOrdered By: Tiarra Childs on 10-29-2022 Phosphate [Mass/Vol] 4.2 mg/dL 2.5-4.6 [facility] Pork IgE Ab [Units/volume] i n SerumOrdered By: Tiarra Childs on 10-29-2022 Pork IgE Qn (S) <0.10 kU/L Class 0 [facility] Prolactin [Mass/volume] in S ulises or PlasmaOrdered By: Tiarra Childs on 10-29-2022 Prolactin [Mass/Vol] 6.27 ng/mL 3.34-26.72 [facility] Rice IgE Ab [Units/volume] i n SerumOrdered By: Tiarra Childs on 10-29-2022 Rice IgE Qn (S) <0.10 kU/L Class 0 [facility] Eden IgE Ab [Units/volume] in SerumOrdered By: Tiarra Childs on 10-29-2022 Eden IgE Qn (S) 0.31 kU/L Class 0/I [facility] Saltwort IgE Ab [Units/volum e] in SerumOrdered By: Tiarra Childs on 10-29-2022 Saltwort IgE Qn (S) <0.10 kU/L Class [address] [facility] Serum Jamaican sycamore IgE antibody assay (units/volume)Ordered By: Tiarra Childs on 10-29-2022 Jamaican [place] IgE Qn (S) 0.11 kU/L Class 0/I [facility] Serum Penicillium chrysogenu m specific IgE antibody assayOrdered By: Tiarra Childs on 10-29-2022 P. notatum IgE Qn (S) <0.10 kU/L Class 0 [facility] Serum androstenedione measur ement by LC-MS/MS (mass/volume)Ordered By: Tiarra Childs on 10-29-2022 Androstenedione [Mass/Vol] 135 ng/dL 41-262 [facility] Comment on above: This test was develo ped and its performance characteristicsdetermined by [employer]. It has not been cleared orapproved by the Food and Drug Administration.Performed at: [facility] [id number] Director: Jayne Mann MD, Phone: [phone] Serum cat dander IgG antibod y assay (units/volume)Ordered By: Tiarra Childs on 10-29-2022 Cat dander IgG Qn (S) <0.10 kU/L Class 0 [facility] Serum chicken droppings IgE antibody assay (units/volume)Ordered By: Tiarra Childs on 10-29-2022 Chicken droppings IgE Qn (S) <0.10 kU/L Class 0 [facility] Serum or plasma 17-hydroxypr ogesterone measurement (mass/volume)Ordered By: Tiarra Childs on 10-29-2022 17-Hydroxyprogesterone [Mass/Vol] 28 ng/dL . [facility] Comment on above: Adult Female Follicu lar 15 - 70 Luteal 35 - 290This test was developed and its performance characteristicsdetermined by [employer]. It has not been cleared orapproved by the Food and Drug Administration.Performed at: [address] [id number] Director: Jayne Mann MD, Phone: [phone] Serum or plasma anion gap de terminationOrdered By: Tiarra Childs on 10-29-2022 Anion gap [Moles/Vol] 9.2 mmol/L 6.0-15.0 [facility] Serum or plasma calcium michael urement (mass/volume)Ordered By: Tiarra Childs on 10-29-2022 Calcium [Mass/Vol] 9.4 mg/dL 8.2-10.2 [facility] Serum or plasma chloride mandeep surement (moles/volume)Ordered By: Tiarra Childs on 10-29-2022 Chloride [Moles/Vol] 105 mmol/L 95-114 [facility] Serum or plasma follitropin measurement (units/volume)Ordered By: Tiarra Childs on 10-29-2022 Follitropin Qn 5.1 m[IU]/mL [facility] Comment on above: FEMALE NORMALS (FLOWER ENOPAUSE) MID-FOLLICULAR PHASE: 3.9-8.8 mIU/mL MID-CYCLE PEAK: 4.5-22.5 mIU/mL MID-LUTEAL PHASE: 1.8-5.1 mIU/mLFEMALE NORMALS (POSTMENOPAUSE): 16.7-113.6 mIU/mLMALE NORMALS: 1.3-19.3 mIU/mL Serum or plasma glucose michael urement (mass/volume)Ordered By: Tiarra Childs on 10-29-2022 Glucose [Mass/Vol] 83 mg/dL 70-100 [facility] Comment on above: ADA recommended refe rence rangeRandom Glucose Reference Range is dependent on time and content of last meal. Glucose of more than 200 mg/dL in a nonstressed, ambulatory subject supports the diagnosis of Diabetes Mellitus. Serum or plasma hepatitis C virus antibody signal/cutoff ratio by immunoassay (relatiOrdered By: Tiarra Childs on 10-29-2022 HCV Ab Signal/Cutoff IA [Rel units/Vol] <0.1 s/co ratio 0.0-0.9 [facility] Serum or plasma insulin michael urement (units/volume)Ordered By: Tiarra Childs on 10-29-2022 Insulin Qn 6.1 u[iU]/mL 2.6-24.9 [facility] Comment on above: Performed at: [place] [id number] Director: Alf Simpson PhD, Phone: [phone] Serum or plasma lutropin mandeep surement (units/volume)Ordered By: Tiarra Childs on 10-29-2022 Lutropin Qn 7.8 m[IU]/mL . [facility] Comment on above: Adult Female: Follic ular phase 2.4 - 12.6 Ovulation phase 14.0 - 95.6 Luteal phase 1.0 - 11.4 Postmenopausal 7.7 - 58.5Performed at: [place] [id number] [place], [place] [id number] Director: Alf Simpson PhD, Phone: [phone] Serum or plasma potassium me asurement (moles/volume)Ordered By: Tiarra Childs on 10-29-2022 Potassium [Moles/Vol] 3.8 mmol/L 3.5-5.1 [facility] Serum or plasma sodium measu rement (moles/volume)Ordered By: Tiarra Childs on 10-29-2022 Sodium [Moles/Vol] 137 mmol/L 136-146 [facility] Serum or plasma total carbon dioxide measurement (moles/volume)Ordered By: Tiarra Childs on 10-29-2022 CO2 [Moles/Vol] 26.6 mmol/L 22.0-30.0 [facility] Serum or plasma urea nitroge n measurement (mass/volume)Ordered By: Tiarra Childs on 10-29-2022 Urea nitrogen [Mass/Vol] 8 mg/dL 9-23 [facility] Serum rough pigweed IgE anti body assay (units/volume)Ordered By: Tiarra Childs on 10-29-2022 Rough Pigweed IgE Qn (S) <0.10 kU/L Class 0 [facility] Serum short ragweed specific IgE antibody assayOrdered By: Tiarra Childs on 10-29-2022 Common Ragweed IgE Qn (S) <0.10 kU/L Class 0 [facility] Serum white elm IgG antibody assay (units/volume)Ordered By: Tiarra Childs on 10-29-2022 White Elm IgG Qn (S) <0.10 kU/L Class 0 [facility] Serum white potato specific IgE antibody assayOrdered By: Tiarra Childs on 10-29-2022 Potato IgE Qn (S) <0.10 kU/L Class 0 [facility] Sheep Hunt[place] IgE Ab [Units/v olume] in SerumOrdered By: Tiarra Childs on 10-29-2022 Sheep [place] IgE Qn (S) <0.10 kU/L Class 0 F [facility] Silver Birch IgE Ab [Units/v olume] in SerumOrdered By: Tiarra Childs on 10-29-2022 Silver Birch IgE Qn (S) 0.15 kU/L Class 0/I F [facility] Soybean specific IgE antibod y assayOrdered By: Tiarra Childs on 10-29-2022 Soybean IgE Qn (S) <0.10 kU/L Class 0 [facility] [place] IgE Ab [Units/volume ] in SerumOrdered By: Tiarra Childs on 10-29-2022 [place]on IgE Qn (S) <0.10 kU/L Class 0 [facility] Tomato IgE Ab [Units/volume] in SerumOrdered By: Tiarra Childs on 10-29-2022 Tomato IgE Qn (S) <0.10 kU/L Class 0 [facility] Milligan IgE Ab [Units/volume] in SerumOrdered By: Tiarra Childs on 10-29-2022 Milligan IgE Qn (S) 0.14 kU/L Class 0/I [facility] Wheat IgE Ab [Units/volume] in SerumOrdered By: Tiarra Childs on 10-29-2022 Wheat IgE Qn (S) <0.10 kU/L Class 0 [facility] White Marquez IgE Ab [Units/volu me] in SerumOrdered By: Tiarra Childs on 10-29-2022 White Marquez IgE Qn (S) <0.10 kU/L Class 0 [facility] Graham IgE Ab [Units/volu me] in SerumOrdered By: Tiarra Childs on 10-29-2022 Graham IgE Qn (S) 0.27 kU/L Class 0/I [facility] White mulberry IgE Ab [Units /volume] in SerumOrdered By: Tiarra Childs on 10-29-2022 White mulberry IgE Qn (S) <0.10 kU/L Class 0 [facility] Creatinine [Mass/volume] in UrineOrdered By: Tiarra Childs on 10-20-2022 Creatinine (U) [Mass/Vol] 96.6 mg/dL [facility] Comment on above: No reference range e stablished Urine microalbumin measureme nt with detection limit of 20 mg/L or less (mass/volume)Ordered By: Tiarra Childs on 10-20-2022 Albumin DL <= 20 mg/L (U) [Mass/Vol] 24.1 mg/dL 0.0-1.8 [facility] Urine microalbumin/creatinin e mass ratioOrdered By: Tiarra Childs on 10-20-2022 Albumin/Creatinine DL <= 20 mg/L (U) [Mass ratio] 249.0 mg/g 0.0-30.0 [facility] Comment on above: 30-300 mg/g indicate s an increased risk for diabetic nephropathy. Greater than 300 mg/g is consistent with clinical nephropathy. (Am. J. Kidney Disease 1995, 25:107) Albumin [Mass/volume] in Ser um or PlasmaOrdered By: Tiarra Childs on 10-09-2022 Albumin [Mass/Vol] 4.1 g/dL 3.2-5.5 [facility] Basophils Auto (Bld) [#/Vol] Ordered By: Tiarra Childs on 10-09-2022 Basophils (Bld) [#/Vol] 0.0 10*3/uL 0.0-0.2 [facility] Basophils/100 WBC Auto (Bld) Ordered By: Tiarra Childs on 10-09-2022 Basophils/100 WBC (Bld) 0.6 % . [facility] C reactive protein [Mass/vol ume] in Serum or PlasmaOrdered By: Tiarra Childs on 10-09-2022 CRP [Mass/Vol] < 0.5 mg/dL 0.0-1.[address] [facility] [address] biopsyOrdered By: Trish Childs on 01-20-2023 Transferrin [Mass/Vol] 262 mg/dL 180-380 [facility] Creatinine [Mass/volume] in UrineOrdered By: Tiarra Childs on 10-09-2022 Creatinine (U) [Mass/Vol] 123.2 mg/dL [facility] Comment on above: No reference range e stablished Creatinine and Glomerular fi ltration rate.predicted panel (S/P/Bld)Ordered By: Tiarra Childs on 10-09-2022 Creatinine [Mass/Vol] 0.67 mg/dL 0.44-1.03 [facility] Eosinophils Auto (Bld) [#/Vo l]Ordered By: Tiarra Childs on 10-09-2022 Eosinophils (Bld) [#/Vol] 0.1 10*3/uL 0.0-0.45 [facility] Eosinophils/100 WBC Auto (Bl d)Ordered By: Tiarra Childs on 10-09-2022 Eosinophils/100 WBC (Bld) 0.9 % . [facility] Erythrocyte distribution wid th Auto (RBC) [Ratio]Ordered By: Tiarra Childs on 10-09-2022 Erythrocyte distribution width (RBC) [Ratio] 13.1 % 11.9-15.3 [facility] Erythrocyte sedimentation ra te by Photometric methodOrdered By: Tiarra Childs on 10-09-2022 ESR Photometric method (Bld) [Velocity] 5 mm/hr 0-19 [facility] Estimated glomerular filtrat ion rate (GFR) non- AmericanOrdered By: Tiarra Childs on 10-09-2022 GFR/1.73 sq M.predicted among non-blacks MDRD (S/P/Bld) [Vol rate/Area] > 60 mL/Min [facility] Ferritin [Mass/volume] in Se rum or PlasmaOrdered By: Tiarra Childs on 10-09-2022 Ferritin [Mass/Vol] 12.7 ng/mL 11-306.[address] [facility] Folate [Mass/volume] in Seru m or PlasmaOrdered By: Tiarra Childs on 10-09-2022 Folate [Mass/Vol] 8.1 ng/mL >5.9 [facility] Comment on above: Folate reference ran ge: >5.9 ng/mlThe WHO technical consultation on folate and vitamin [id number] has determined that folate concentrations lessthan 4 ng/ml are considered deficient. Globulin Calc (S) [Mass/Vol] Ordered By: Tiarra Childs on 10-09-2022 Globulin (S) [Mass/Vol] 2.3 g/dL [facility] Hematocrit Auto (Bld) [Volum e fraction]Ordered By: Tiarra Childs on 10-09-2022 Hematocrit (Bld) [Volume fraction] 41.6 % 34.0-46.4 [facility] Hemoglobin [Mass/volume] in BloodOrdered By: Tiarra Childs on 10-09-2022 Hemoglobin (Bld) [Mass/Vol] 13.8 g/dL 11.8-15.4 [facility] Iron [Mass/volume] in Serum or PlasmaOrdered By: Tiarra Childs on 10-09-2022 Iron [Mass/Vol] 69 ug/dL 40-150 [facility] Iron binding capacity [Mass/ volume] in Serum or PlasmaOrdered By: Tiarra Childs on 10-09-2022 Iron binding capacity [Mass/Vol] 367 ug/dL 255-450 [facility] Iron saturation [Mass Fracti on] in Serum or PlasmaOrdered By: Tiarra Childs on 10-09-2022 Iron saturation [Mass fraction] 18.8 % 20-50 [facility] Laboratory - Chemistry and C hemistry - challengeOrdered By: Tiarra Childs on 10-09-2022 Cobalamin (Vitamin B12) [Mass/Vol] 394 pg/mL 180-914 [facility] Lipase [Catalytic activity/Vol] 29.0 U/L 22-51 [facility] Leukocytes [#/volume] correc paulie for nucleated erythrocytes in Blood by Automated counOrdered By: Tiarra Childs on 10-09-2022 WBC corrected for nucl RBC Auto (Bld) [#/Vol] 6.3 10*3/uL 3.8-11.6 [facility] Lymphocytes Auto (Bld) [#/Vo l]Ordered By: Tiarra Childs on 10-09-2022 Lymphocytes (Bld) [#/Vol] 1.5 10*3/uL 1.00-4.8 [facility] Lymphocytes/100 WBC Auto (Bl d)Ordered By: Tiarra Childs on 10-09-2022 Lymphocytes/100 WBC (Bld) 24.1 % . [facility] MCH Auto (RBC) [Entitic mass ]Ordered By: Tiarra Childs on 10-09-2022 MCH (RBC) [Entitic mass] 29.8 pg 24.7-34.3 [facility] MCHC Auto (RBC) [Mass/Vol]Or dered By: Tiarra Childs on 10-09-2022 MCHC (RBC) [Mass/Vol] 33.3 g/dL 32.0-35.0 [facility] MCV Auto (RBC) [Entitic vol] Ordered By: Tiarra Childs on 10-09-2022 MCV (RBC) [Entitic vol] 89.7 fL 80-100 [facility] Monocytes Auto (Bld) [#/Vol] Ordered By: Tiarra Childs on 10-09-2022 Monocytes (Bld) [#/Vol] 0.3 10*3/uL 0.0-0.8 [facility] Monocytes/100 WBC Auto (Bld) Ordered By: Tiarra Childs on 10-09-2022 Monocytes/100 WBC (Bld) 5.2 % . [facility] Neutrophils Auto (Bld) [#/Vo l]Ordered By: Tiarra Childs on 10-09-2022 Neutrophils (Bld) [#/Vol] 4.3 10*3/uL 1.8-7.7 [facility] Neutrophils/100 WBC Auto (Bl d)Ordered By: Tiarra Childs on 10-09-2022 Neutrophils/100 WBC (Bld) 69.2 % . [facility] No Panel InformationOrdered By: Tiarra Childs on 10-09-2022 25-Hydroxy Vitamin D Total 31.2 ng/mL 30-100 [facility] Comment on above: VITAMIN D STATUS 25( [place])VITAMIN D RANGE (ng/mL) Deficient <20 Insufficient 20 to <30Sufficient 30 to 100Reference: Ambar PEREZ,Manish MARTINEZ, Donis BASHIR, et al. Evaluation,treatment, and prevention of vitamin D deficiency; an Endocrine Society clinical practice guideline. JCEM. 2010; 96(7):1911-30. Anti-Nuclear Antibody Comment 2 See comment . [facility] Comment on above: For more information about Hep-2 cell patterns useVenga, the official website for the InternationalColibrís on Antinuclear Antibody (BRAVO) Patterns (ICAP). ------A positive BRAVO result may occur in healthy individuals (lowtiter) or be associated with a variety of diseases. Seeinterpretation chart which is not all inclusive:Pattern Antigen Detected Suggested Disease Association Homogeneous DNA(ds,ss), SLE - High titers Nucleosomes, Histones Drug-induced SLE Speckled Sm, WEIGHT GUESSER, SCL-70, SLE,MCTD,PSS (diffuse form), SS-A/SS-B Sjogrens Nucleolar SCL-70, PM-1/SCL High titers Scleroderma, PM/DM Centromere Centromere PSS (limited form) w/Crest syndrome variable Nuclear Dot [id number] Primary Biliary Cirrhosis Nuclear GP210, Primary Biliary CirrhosisMembrane phil A,B,C Performed at: [facility] [address] [id number] Director: Alf Simpson PhD, Phone: [phone] C-Peptide 3.7 ng/mL 1.1-4.4 [facility] Comment on above: C-Peptide reference interval is for fasting patients.Performed at: [facility] [address] [id number] Director: Alf Simpson PhD, Phone: [phone] Estimated GFR () > 60 mL/Min [facility] Comment on above: GFR estimated refere nce range: According to KDOQI guidelines, <60 ml/min/1.73m2 is sufficient to diagnose a patient with chronic kidney disease. Pharmacy Creatinine Clearance (Chem N/A [facility] Nucleated erythrocytes [Pres ence] in Blood by Automated countOrdered By: Tiarra Childs on 10-09-2022 Nucleated RBC Auto Ql (Bld) 0.1 /100{WBC} 0-0.5 [facility] Platelet mean volume Auto (B ld) [Entitic vol]Ordered By: Tiarra Childs on 10-09-2022 Platelet mean volume (Bld) [Entitic vol] 8.4 fL 6.3-10.7 [facility] Platelets Auto (Bld) [#/Vol] Ordered By: Tiarra Childs on 10-09-2022 Platelets (Bld) [#/Vol] 303 10*3/uL 150-450 [facility] Protein [Mass/volume] in Ser um or PlasmaOrdered By: Tiarra Childs on 10-09-2022 Protein [Mass/Vol] 6.4 g/dL 6.1-7.9 [facility] RBC Auto (Bld) [#/Vol]Ordere d By: Tiarra Childs on 10-09-2022 RBC (Bld) [#/Vol] 4.64 10*6/uL 3.60-5.[address] [facility] Serum nuclear antibody titer Ordered By: Tiarra Childs on 10-09-2022 Nuclear Ab (S) [Titer] Positive . [facility] Comment on above: Negative <1:80 Borde rline 1:80 Positive >1:80 Serum or plasma alanine perry otransferase measurement without P-5'-P (enzymatic activiOrdered By: Tiarra Childs on 10-09-2022 ALT No additional P-5'-P [Catalytic activity/Vol] 12 U/L 10-60 [facility] Serum or plasma albumin/glob ulin mass ratioOrdered By: Tiarra Childs on 10-09-2022 Albumin/Globulin [Mass ratio] 1.8 {ratio} [facility] Serum or plasma alkaline blair sphatase measurement (enzymatic activity/volume)Ordered By: Tiarra Childs on 10-09-2022 ALP [Catalytic activity/Vol] 54 U/L 32-92 [facility] Serum or plasma amylase michael urement (enzymatic activity/volume)Ordered By: Tiarra Childs on 10-09-2022 Amylase [Catalytic activity/Vol] 63 U/L 28-100 [facility] Serum or plasma anion gap de terminationOrdered By: Tiarra Childs on 10-09-2022 Anion gap [Moles/Vol] 12.1 mmol/L 6.0-15.0 [facility] Serum or plasma aspartate am inotransferase measurement (enzymatic activity/volume)Ordered By: Tiarra Childs on 10-09-2022 AST [Catalytic activity/Vol] 20 U/L 10-42 [facility] Serum or plasma calcium michael urement (mass/volume)Ordered By: Tiarra Childs on 10-09-2022 Calcium [Mass/Vol] 9.6 mg/dL 8.2-10.2 [facility] Serum or plasma chloride mandeep surement (moles/volume)Ordered By: Tiarra Childs on 10-09-2022 Chloride [Moles/Vol] 102 mmol/L 95-114 [facility] Serum or plasma glucose michael urement (mass/volume)Ordered By: Tiarra Childs on 10-09-2022 Glucose [Mass/Vol] 66 mg/dL 70-100 [facility] Comment on above: ADA recommended refe rence rangeRandom Glucose Reference Range is dependent on time and content of last meal. Glucose of more than 200 mg/dL in a nonstressed, ambulatory subject supports the diagnosis of Diabetes Mellitus. Serum or plasma potassium me asurement (moles/volume)Ordered By: Tiarra Childs on 10-09-2022 Potassium [Moles/Vol] 3.9 mmol/L 3.5-5.1 [facility] Serum or plasma sodium measu rement (moles/volume)Ordered By: Tiarra Childs on 10-09-2022 Sodium [Moles/Vol] 138 mmol/L 136-146 [facility] Serum or plasma total biliru bin measurement (mass/volume)Ordered By: Tiarra Childs on 10-09-2022 Bilirubin [Mass/Vol] 1.1 mg/dL 0.3-1.2 [facility] Serum or plasma total carbon dioxide measurement (moles/volume)Ordered By: Tiarra Childs on 10-09-2022 CO2 [Moles/Vol] 27.8 mmol/L 22.0-30.0 [facility] Serum or plasma urea nitroge n measurement (mass/volume)Ordered By: Tiarra Childs on 10-09-2022 Urea nitrogen [Mass/Vol] 9 mg/dL 9-23 [facility] Serum speckled pattern antin uclear antibody (BRAVO) titerOrdered By: Tiarra Childs on 10-09-2022 Speckled nuclear Ab pattern (S) [Titer] 1:80 . [facility] Comment on above: ICAP nomenclature: A C-2,4,5,29 TSH DL <= 0.005 mIU/L QnOrde red By: Tiarra Childs on 10-09-2022 TSH Qn 0.90 m[IU]/L 0.45-5.33 [facility] Thyroxine (T4) free [Mass/vo lume] in Serum or PlasmaOrdered By: Tiarra Childs on 10-09-2022 Free T4 [Mass/Vol] 0.76 ng/dL 0.61-1.12 [facility] Triiodothyronine (T3) Free [ Mass/volume] in Serum or PlasmaOrdered By: Tiarra Childs on 10-09-2022 Free T3 [Mass/Vol] 3.99 pg/mL 2.50-3.90 [facility] Urine microalbumin measureme nt with detection limit of 20 mg/L or less (mass/volume)Ordered By: Tiarra Childs on 10-09-2022 Albumin DL <= 20 mg/L (U) [Mass/Vol] 4.5 mg/dL 0.0-1.8 [facility] Urine microalbumin/creatinin e mass ratioOrdered By: Tiarra Childs on 10-09-2022 Albumin/Creatinine DL <= 20 mg/L (U) [Mass ratio] 36.0 mg/g 0.0-30.0 [facility] Comment on above: 30-300 mg/g indicate s an increased risk for diabetic nephropathy. Greater than 300 mg/g is consistent with clinical nephropathy. (Am. J. Kidney Disease 1995, 25:107) WBC Auto (Bld) [#/Vol]Ordere d By: Tiarra Childs on 10-09-2022 WBC (Bld) [#/Vol] 6.3 10*3/uL 3.8-11.6 [facility] CBC AUTO DIFFon 09-28-2022 BASO # 0.0 103/ul Normal 0.0-0.1 [facility] Comment on above: Performed By: #### C BC #### [facility] [address] [place] [address] Dr. Angelica Smith Basophils/100 WBC (Bld) 0.5 % Normal 0.2-2.[address] [facility] Comment on above: Performed By: #### C BC #### [facility] [address] [place] [address] Dr. Angelica Smith EO # 0.1 103/ul Normal 0.0-0.7 [facility] Comment on above: Performed By: #### C BC #### [facility] [address] [place] [address] Dr. Angelica Smith Eosinophils/100 WBC (Bld) 1.6 % Normal 0.9-7.0 [facility] Comment on above: Performed By: #### C BC #### [facility] [address] [place] [address] Dr. Angelica Smith Erythrocyte distribution width (RBC) [Ratio] 12.4 % Normal 11.0-15.0 [facility] Comment on above: Performed By: #### C BC #### [facility] [address] [place] [address] Dr. Angelica Smith Hematocrit (Bld) [Volume fraction] 36.4 % Normal 36.0-48.0 [facility] Comment on above: Performed By: #### C BC #### [facility] [address] [place] [address] Dr. Angelica Smith Hemoglobin (Bld) [Mass/Vol] 13.3 g/dL Normal 12.0-16.0 [facility] Comment on above: Performed By: #### C BC #### [facility] [address] [place] [address] Dr. Angelica Smith IG # 0.01 10e3/ul Normal 0.00-0.03 [facility] Comment on above: Performed By: #### C BC #### [facility] [address] [place] [address] Dr. Angelica Smith IG % 0.2 % Normal 0.0-0.5 [facility] Comment on above: Performed By: #### C BC #### [facility] [address] [address] [address] Angelica Smith LYMPH # 2.0 103/ul Normal 1.2-3.8 [facility] Comment on above: Performed By: #### C BC #### [facility] [address] [place] [address] Dr. Angelica Smith Lymphocytes/100 WBC (Bld) 32.6 % Normal 20.5-60.0 [facility] Comment on above: Performed By: #### C BC #### [facility] [address] [place] [address] Dr. Angelica Smith MANUAL DIFF REQ NO Normal [facility] Comment on above: Performed By: #### C BC #### [facility] [address] [place] [address] Dr. Angelica Smith MCH (RBC) [Entitic mass] 30.3 pg Normal 26.7-34.0 [facility] Comment on above: Performed By: #### C BC #### [facility] [address] [place] [address] Dr. Angelica Smith MCHC (RBC) [Mass/Vol] 36.5 g/dL Critically high 29.9-35.2 [facility] Comment on above: Performed By: #### C BC #### [facility] [address] [place] [address] Dr. Angelica Smith MCV (RBC) [Entitic vol] 82.9 fL Normal 81.0-99.[address] [facility] Comment on above: Performed By: #### C BC #### [facility] [address] [place] [address] Dr. Angelica Smith MONO # 0.4 103/ul Normal 0.3-0.8 [facility] Comment on above: Performed By: #### C BC #### [facility] [address] [place] [address] Dr. Angelica Smith Monocytes/100 WBC (Bld) 6.0 % Normal 1.7-12.[address] [facility] Comment on above: Performed By: #### C BC #### [facility] [address] [place] [address] Dr. Angelica Smith NEUT # 3.7 103/ul Normal 1.4-6.5 [facility] Comment on above: Performed By: #### C BC #### [facility] [address] [place] [address] Dr. Angelica Smith Neutrophils/100 WBC (Bld) 59.1 % Normal 43.0-75.0 [facility] Comment on above: Performed By: #### C BC #### [facility] [address] [place] [address] Dr. Angelica Smith Platelet mean volume (Bld) [Entitic vol] 9.5 fL Normal 9.5-13.5 [facility] Comment on above: Performed By: #### C BC #### [facility] [address] [place] [address] Dr. Angelica Smith PLT 313 103/ul Normal 150-450 [facility] Comment on above: Performed By: #### C BC #### [facility] [address] [place] [address] Dr. Angelica Smith RBC 4.39 106/ul Normal 4.20-5.40 [facility] Comment on above: Performed By: #### C BC #### [facility] [address] [place] [address] Dr. Angelica Smith WBC 6.2 103/ul Normal 4.0-11.0 [facility] Comment on above: Performed By: #### C BC #### [facility] [address] [place] [address] Dr. Angelica Smith ER URINE PROFILEon 3 Bilirubin Ql (U) Negative Normal NEGATIVE [facility] Comment on above: Performed By: #### TOREY OJEDARO #### [facility] [address] [place] [address] Dr. Angelica Smith Clarity (U) CLEAR Normal CLEAR [facility] Comment on above: Performed By: #### TOREY OJEDARO #### [facility] [address] [place] [address] Dr. Angelica Smith Color (U) LT. YELLOW Normal YELLOW [facility] Comment on above: Performed By: #### Gladis BUSBY UMICRO #### [facility] [address] [place] [address] Dr. Angelica QUINTANILLA A micrscopic examina tion will be performed if indicated. Normal [facility] Comment on above: Performed By: #### Gladis BUSBY UMICRO #### [facility] [address] [place] [address] Dr. Angelica Smith Glucose Ql (U) Negative Normal NEGATIVE [facility] Comment on above: Performed By: #### Gladis BUSBY UMICRO #### [facility] [address] [place] [address] Dr. Angelica Smith Hemoglobin Ql (U) MODERATE Abnormal NEGATIVE [facility] Comment on above: Performed By: #### Gladis BUSBY UMICRO #### [facility] [address] [place] [address] Dr. Angelica Smith Ketones Ql (U) Negative Normal NEGATIVE [facility] Comment on above: Performed By: #### Gladis BUSBY UMICRO #### [facility] [address] [place] [address] Dr. Angelica Smith LEUKOCYTES Negative Normal NEGATIVE [facility] Comment on above: Performed By: #### Gladis BUSBY UMICRO #### [facility] [address] [place] [address] Dr. Angelica Smith Nitrite Ql (U) Negative Normal NEGATIVE [facility] Comment on above: Performed By: #### Gladis BUSBY UMICRO #### [facility] [address] [place] [address] Dr. Angelica Smith pH (U) 7.0 [pH] Normal 5-9 [facility] Comment on above: Performed By: #### Gladis BUSBY UMICRO #### [facility] [address] [place] [address] Dr. Angelica Smith SPEC GRAVITY 1.010 Normal 1.005-<=1. 025 [facility] Comment on above: Performed By: #### Gladis BUSBY UMICRO #### [facility] [address] [address] [address] Angelica Smith UA PROTEIN Negative Normal NEGATIVE/ TRACE [facility] Comment on above: Performed By: #### VESTA OJEDA #### [facility] [address] [place] [address] Dr. Angelica Smith UR MICRO IND INDICATED Normal [facility] Comment on above: Performed By: #### VESTA OJEDA #### [facility] [address] [address] [address] Angelica Smith Urobilinogen Qn (U) 0.2 {Sujey'U}/dL Normal 0.2 - 1. 0 [facility] Comment on above: Performed By: #### VESTA OJEDA #### [facility] [address] [place] [address] Dr. Angelica Smith PREG QUANT HCGon 09-28-2022 HCG QUANT 1 mIU/mL Normal [facility] Comment on above: Performed By: #### B MEGHAN, PREGQNT ####[facility] [id number] [address]Dr. Angelica Smith HCG RANGE SEE BELOW Normal [facility] Comment on above: Result Comment: 5-50 0.2-1 WEEK 50-500 1-2 WEEKS 100-5,000 2-3 WEEKS 500-10,000 3-4 WEEKS 1,000-50,000 4-5 WEEKS 10,000-100,000 5-6 WEEKS 15,000-200,000 6-8 WEEKS 10,000-100,000 2-3 MONTHS Performed By: #### B MP, PREGQNT ####[facility] [id number] [address]Dr. Angelica Smith PROF CHEM 8 (BAS METB)on Anion gap [Moles/Vol] 11.5 mmol/L Normal [facility] Comment on above: Performed By: #### B MP, PREGQNT #### [facility] [address] [place] [address] Dr. Angelica Smith Calcium [Mass/Vol] 9.0 mg/dL Normal 8.5-10.1 [facility] Comment on above: Performed By: #### B MP, PREGQNT #### [facility] [address] [address] [address] Angelica Smith Chloride [Moles/Vol] 104 mmol/L Normal 98-107 [facility] Comment on above: Performed By: #### B MP, PREGQNT #### [facility] [address] [address] [address] Angelica Smith CO2 [Moles/Vol] 27.0 mmol/L Normal 21.0-32.0 [facility] Comment on above: Performed By: #### B MP, PREGQNT #### [facility] [address] [place] [address] Dr. Angelica Smith Creatinine [Mass/Vol] 0.71 mg/dL Normal 0.55-1.02 [facility] Comment on above: Performed By: #### B MP, PREGQNT #### [facility] [address] [place] [address] Dr. Angelica Smith EGFR-AF [place]IZ[place] >60 Normal >=60 [facility] Comment on above: Performed By: #### B MP, PREGQNT #### [facility] [address] [place] [address] Dr. Angelica Smith EGFR-NON AF [place] >60 Normal >=60 [facility] Comment on above: Performed By: #### B MP, PREGQNT #### [facility] [address] [place] [address] Dr. Angelica Smith Glucose [Mass/Vol] 92 mg/dL Normal 74-106 [facility] Comment on above: Performed By: #### B MP, PREGQNT #### [facility] [address] [address] [address] Angelica Smith Potassium [Moles/Vol] 3.5 mmol/L Normal 3.5-5.1 [facility] Comment on above: Performed By: #### B MP, PREGQNT #### [facility] [address] [place] [address] Dr. Angelica Smith Sodium [Moles/Vol] 139 mmol/L Normal 136-145 [facility] Comment on above: Performed By: #### B MEGHAN, PREGQNT #### [facility] [address] [place] [address] Dr. Angelica Smith Urea nitrogen [Mass/Vol] 8.0 mg/dL Normal 7.0-18.0 [facility] Comment on above: Performed By: #### B MEGHAN, PREGQNT #### [facility] [address] [place] [address] Dr. Angelica Smith Urea nitrogen/Creatinine [Mass ratio] 11.3 mg/mg Normal [facility] Comment on above: Performed By: #### B MEGHAN, PREGQNT #### [facility] [address] [place] [address] Dr. Angelica Smith URINE MICROSCOPIC ONLYon BACTERIA NONE SEEN Normal NONE SEEN [facility] Comment on above: Performed By: #### Gladis RUR UMICRO #### [facility] [address] [place] [address] Dr. Angelica Smith Bacteria identified Cx Nom (U) NOT INDICATED Normal [facility] Comment on above: Performed By: #### Gladis BUSBY UMICRO #### [facility] [address] [place] [address] Dr. Angelica Smith CAST NONE SEEN Normal NONE SEEN [facility] Comment on above: Performed By: #### E RUR, UMICRO #### [facility] [address] [place] [address] Dr. Angelica Smith Crystals LM Nom (Urine sed) NONE SEEN Normal NONE SEEN [facility] Comment on above: Performed By: #### E RUR, UMICRO #### [facility] [address] [place] [address] Dr. Angelica Smith Epithelial cells LM Ql (Urine sed) FEW Abnormal NONE SEEN /RARE [facility] Comment on above: Performed By: #### E RUR, UMICRO #### [facility] [address] [place] [address] Dr. Angelica Smith MUCOUS NONE SEEN Normal NONE SEEN [facility] Comment on above: Performed By: #### E RUR, TOREYRO #### [facility] [address] [place] [address] Dr. Angelica Smith RBC 0-2 Normal 0-2 [facility] Comment on above: Performed By: #### TOREY OJEDARO #### [facility] [address] [place] [address] Dr. Angelica Smith WBC NONE SEEN Normal NONE SEEN [facility] Comment on above: Performed By: #### TOREY OJEDARO #### [facility] [address] [place] [address] Dr. Angelica Smith PREG QUANT HCGon 09-24-2022 HCG QUANT 7 mIU/mL Normal [facility] Comment on above: Performed By: #### P REGQNT #### [facility] [address] [place] [address] Dr. Angelica Smith HCG RANGE SEE BELOW Normal [facility] Comment on above: Result Comment: 5-50 0.2-1 WEEK 50-500 1-2 WEEKS 100-5,000 2-3 WEEKS 500-10,000 3-4 WEEKS 1,000-50,000 4-5 WEEKS 10,000-100,000 5-6 WEEKS 15,000-200,000 6-8 WEEKS 10,000-100,000 2-3 MONTHS Performed By: #### P REGQNT #### [facility] [address] [place] [address] Dr. Angelica Smith PREG QUANT HCGon 09-22-2022 HCG QUANT 14 mIU/mL Normal [facility] Comment on above: Performed By: #### P REGQNT #### [facility] [address] [place] [address] Dr. Angelica Smith HCG RANGE SEE BELOW Normal [facility] Comment on above: Result Comment: 5-50 0.2-1 WEEK 50-500 1-2 WEEKS 100-5,000 2-3 WEEKS 500-10,000 3-4 WEEKS 1,000-50,000 4-5 WEEKS 10,000-100,000 5-6 WEEKS 15,000-200,000 6-8 WEEKS 10,000-100,000 2-3 MONTHS Performed By: #### P REGQNT #### [facility] [address] [address] [address] Angelica Smith Albumin [Mass/volume] in Ser um or PlasmaOrdered By: Donavon Yanes on 08-11-2022 Albumin [Mass/Vol] 4.0 g/dL 3.2-5.5 [facility] Bilirubin Test strip Ql (U)O rdered By: Donavon Yanes on 08-11-2022 Bilirubin Ql (U) Negative Negative [facility] Color Auto (U)Ordered By: Kunal Yanes on 08-11-2022 Color (U) Yellow Yellow [facility] Creatinine and Glomerular fi ltration rate.predicted panel (S/P/Bld)Ordered By: Donavon Yanes on 08-11-2022 Creatinine [Mass/Vol] 0.71 mg/dL 0.44-1.03 [facility] Direct bilirubin measurement Ordered By: Donavon Yanes on 08-11-2022 Bilirubin.direct [Mass/Vol] 0.2 mg/dL 0.0-0.4 [facility] Estimated glomerular filtrat ion rate (GFR) non- AmericanOrdered By: Donavon Yanes on 08-11-2022 GFR/1.73 sq M.predicted among non-blacks MDRD (S/P/Bld) [Vol rate/Area] > 60 mL/Min [facility] Globulin Calc (S) [Mass/Vol] Ordered By: Donavon Yanes on 08-11-2022 Globulin (S) [Mass/Vol] 2.9 g/dL F [facility] Ketones Auto test strip (U) [Mass/Vol]Ordered By: Donavon Yanes on 08-11-2022 Ketones (U) [Mass/Vol] Negative [facility] Nit[facility] strip Ql (U)Ord ered By: Donavon Yanes on 08-11-2022 Nitrite Ql (U) Negative Negative [facility] No Panel InformationOrdered By: Donavon Yanes on 08-11-2022 Estimated GFR () > 60 mL/Min [facility] Comment on above: GFR estimated refere nce range: According to KDOQI guidelines, <60 ml/min/1.73m2 is sufficient to diagnose a patient with chronic kidney disease. Pharmacy Creatinine Clearance (Chem N/A [facility] Protein Auto test strip (U) [Mass/Vol]Ordered By: Donavon Yanes on 08-11-2022 Protein (U) [Mass/Vol] Negative Negative Fi [facility] Protein [Mass/volume] in Ser um or PlasmaOrdered By: Donavon Yanes on 08-11-2022 Protein [Mass/Vol] 6.9 g/dL 6.1-7.9 [facility] Serum or plasma alanine perry otransferase measurement without P-5'-P (enzymatic activiOrdered By: Donavon Yanes on 08-11-2022 ALT No additional P-5'-P [Catalytic activity/Vol] 12 U/L 10-60 [facility] Serum or plasma albumin/glob ulin mass ratioOrdered By: Donavon Yanes on 08-11-2022 Albumin/Globulin [Mass ratio] 1.4 {ratio} [facility] Serum or plasma alkaline blair sphatase measurement (enzymatic activity/volume)Ordered By: Donavon Yanes on 08-11-2022 ALP [Catalytic activity/Vol] 47 U/L 32-92 [facility] Serum or plasma anion gap de terminationOrdered By: Donavon Yanes on 08-11-2022 Anion gap [Moles/Vol] 8.3 mmol/L 6.0-15.0 [facility] Serum or plasma aspartate am inotransferase measurement (enzymatic activity/volume)Ordered By: Donavon Yanes on 08-11-2022 AST [Catalytic activity/Vol] 19 U/L 10-42 [facility] Serum or plasma calcium michael urement (mass/volume)Ordered By: Donavon Yanes on 08-11-2022 Calcium [Mass/Vol] 9.4 mg/dL 8.2-10.2 [facility] Serum or plasma chloride mandeep surement (moles/volume)Ordered By: Donavon Yanes on 08-11-2022 Chloride [Moles/Vol] 104 mmol/L 95-114 [facility] Serum or plasma glucose michael urement (mass/volume)Ordered By: Donavon Yanes on 08-11-2022 Glucose [Mass/Vol] 81 mg/dL 70-100 [facility] Comment on above: ADA recommended refe rence rangeRandom Glucose Reference Range is dependent on time and content of last meal. Glucose of more than 200 mg/dL in a nonstressed, ambulatory subject supports the diagnosis of Diabetes Mellitus. Serum or plasma non-glucuron idated bilirubin measurement (mass/volume)Ordered By: Donavon Yanes on 08-11-2022 Bilirubin.indirect [Mass/Vol] 2.0 mg/dL [facility] Serum or plasma potassium me asurement (moles/volume)Ordered By: Donavon Yanes on 08-11-2022 Potassium [Moles/Vol] 3.9 mmol/L 3.5-5.1 [facility] Serum or plasma sodium measu rement (moles/volume)Ordered By: Donavon Yanes on 08-11-2022 Sodium [Moles/Vol] 135 mmol/L 136-146 [facility] Serum or plasma total biliru bin measurement (mass/volume)Ordered By: Donavon Yanes on 08-11-2022 Bilirubin [Mass/Vol] 2.2 mg/dL 0.3-1.2 [facility] Comment on above: Samples from patient s who have taken Naproxen have shown spurious elevation in Total Bilirubin levels. A metabolite of Naproxen, O-desmethylnaproxen, has been shown to interfere with the Jentessik-Bebof method for measuring Total Bilirubin. Serum or plasma total carbon dioxide measurement (moles/volume)Ordered By: Donavon Yanes on 08-11-2022 CO2 [Moles/Vol] 26.6 mmol/L 22.0-30.0 [facility] Serum or plasma urea nitroge n measurement (mass/volume)Ordered By: Donavon Yanes on 08-11-2022 Urea nitrogen [Mass/Vol] 10 mg/dL - [facility] Specific gravity Auto test s trip (U) [Rel density]Ordered By: Donavon Yanes on 08-11-2022 Specific gravity (U) [Rel density] 1.007 1.001-1.03 0 [facility] Urine clarity by refractomet ry automatedOrdered By: Donavon Yanes on 08-11-2022 Clarity Refractometry automated (U) Clear Clear [facility] Urine glucose measurement by automated test strip (mass/volume)Ordered By: Donavon Yanes on 08-11-2022 Glucose Auto test strip (U) [Mass/Vol] Normal mg/dL Normal [facility] Urine hemoglobin detection b y automated test stripOrdered By: Donavon Yanes on 08-11-2022 Hemoglobin Auto test strip Ql (U) Negative Negative [facility] Urine leukocyte esterase det ection by automated test stripOrdered By: Donavon Yanes on 08-11-2022 Leukocyte esterase Auto test strip Ql (U) Negative Negative [facility] Urobilinogen Auto test strip (U) [Mass/Vol]Ordered By: Donavon Yanes on 08-11-2022 Urobilinogen (U) [Mass/Vol] Normal mg/dL Normal [facility] pH Auto test strip (U)Ordere d By: Donavon Yanes on 08-11-2022 pH (U) 6.0 [pH] 5.0-9.0 [facility] Albumin [Mass/volume] in Ser um or PlasmaOrdered By: Donavon Yanes on 06-18-2022 Albumin [Mass/Vol] 4.2 g/dL 3.2-5.5 [facility] Basophils Auto (Bld) [#/Vol] Ordered By: Donavon Yanes on 06-18-2022 Basophils (Bld) [#/Vol] 0.0 10*3/uL 0.0-0.2 [facility] Basophils/100 WBC Auto (Bld) Ordered By: Donavon Yanes on 06-18-2022 Basophils/100 WBC (Bld) 0.5 % . F [facility] Blood hemoglobin measurement (mass/volume)Ordered By: Donavon Yanes on 06-18-2022 Hemoglobin (Bld) [Mass/Vol] 13.3 g/dL 11.8-15.4 [facility] Blood leukocytes automated c ount (number/volume)Ordered By: Donavon Yanes on 06-18-2022 WBC (Bld) [#/Vol] 6.9 10*3/uL 4.5-11.0 [facility] Cholesterol [Mass/volume] in Serum or PlasmaOrdered By: Donavon Yanes on 06-18-2022 Cholesterol [Mass/Vol] 143 mg/dL 140-200 [facility] Comment on above: Chol less than 200 m g/dl low riskChol 201-239 mg/dl borderline riskChol 240 mg/dl and greater high risk Cholesterol in LDL Calc [Mas s/Vol]Ordered By: Donavon Yanes on 06-18-2022 Cholesterol in LDL [Mass/Vol] 83 mg/dL 0-100 [facility] Comment on above: LDL ATP III CLASSIFI CATIONLDL less than 100 mg/dL OptimalLDL 100-129 mg/dL Near or above optimalLDL 130-159 mg/dL Borderline highLDL 160-189 mg/dL HighLDL greater than 189 mg/dL Very high Cholesterol in VLDL Calc [Ma ss/Vol]Ordered By: Donavon Yanes on 06-18-2022 Cholesterol in VLDL [Mass/Vol] 14 mg/dL [facility] Creatinine [Mass/volume] in UrineOrdered By: Donavon Yanes on 06-18-2022 Creatinine (U) [Mass/Vol] 113.4 mg/dL [facility] Comment on above: No reference range e stablished Creatinine and Glomerular fi ltration rate.predicted panel (S/P/Bld)Ordered By: Donavon Yanes on 06-18-2022 Creatinine [Mass/Vol] 0.70 mg/dL 0.44-1.03 [facility] Eosinophils Auto (Bld) [#/Vo l]Ordered By: Donavon Yanes on 06-18-2022 Eosinophils (Bld) [#/Vol] 0.1 10*3/uL 0.0-0.45 [facility] Eosinophils/100 WBC Auto (Bl d)Ordered By: Donavon Yanes on 06-18-2022 Eosinophils/100 WBC (Bld) 0.9 % . [facility] Erythrocyte distribution wid th Auto (RBC) [Ratio]Ordered By: Donavon Yanes on 06-18-2022 Erythrocyte distribution width (RBC) [Ratio] 12.4 % 11.9-15.3 [facility] Estimated glomerular filtrat ion rate (GFR) non- AmericanOrdered By: Donavon Yanes on 06-18-2022 GFR/1.73 sq M.predicted among non-blacks MDRD (S/P/Bld) [Vol rate/Area] > 60 mL/Min [facility] Globulin Calc (S) [Mass/Vol] Ordered By: Donavon Yanes on 06-18-2022 Globulin (S) [Mass/Vol] 2.5 g/dL F [facility] Glucose mean value [Mass/vol ume] in Blood Estimated from glycated hemoglobinOrdered By: Donavon Yanes on 06-18-2022 Average glucose Estimated from glycated hemoglobin (Bld) [Mass/Vol] 100 mg/dL [facility] Hematocrit Auto (Bld) [Volum e fraction]Ordered By: Donavon Yanes on 06-18-2022 Hematocrit (Bld) [Volume fraction] 39.3 % 34.0-46.4 [facility] Hemoglobin A1c percentageOrd ered By: Donavon Yanes on 06-18-2022 HbA1c (Bld) [Mass fraction] 5.1 % 4.3-5.6 [facility] Comment on above: Increased risk for d iabetes: 5.7 - 6.4diabetes: >6.4glycemic control for adults with diabetes: <7.0 Laboratory - Hematology and Cell countsOrdered By: Donavon Yanes on 06-18-2022 Nucleated RBC/100 WBC (Bld) [Ratio] 0.1 % 0-0.5 [facility] Lymphocytes Auto (Bld) [#/Vo l]Ordered By: Donavon Yanes on 06-18-2022 Lymphocytes (Bld) [#/Vol] 1.9 10*3/uL 1.00-4.8 [facility] Lymphocytes/100 WBC Auto (Bl d)Ordered By: Donavon Yanes on 06-18-2022 Lymphocytes/100 WBC (Bld) 27.9 % . [facility] MCH Auto (RBC) [Entitic mass ]Ordered By: Donavon Yanes on 06-18-2022 MCH (RBC) [Entitic mass] 30.5 pg 24.7-34.3 [facility] MCHC Auto (RBC) [Mass/Vol]Or dered By: Donavon Yanes on 09-29-2022 MCHC (RBC) [Mass/Vol] 33.7 g/dL 32.0-35.0 [facility] MCV Auto (RBC) [Entitic vol] Ordered By: Donavon Yanes on 06-18-2022 MCV (RBC) [Entitic vol] 90.2 fL 80-100 F [facility] Monocytes Auto (Bld) [#/Vol] Ordered By: Donavon Yanes on 06-18-2022 Monocytes (Bld) [#/Vol] 0.3 10*3/uL 0.0-0.8 [facility] Monocytes/100 WBC Auto (Bld) Ordered By: Donavon Yanes on 06-18-2022 Monocytes/100 WBC (Bld) 4.9 % . F [facility] Neutrophils Auto (Bld) [#/Vo l]Ordered By: Donavon Yanes on 06-18-2022 Neutrophils (Bld) [#/Vol] 4.6 10*3/uL 1.8-7.7 [facility] Neutrophils/100 WBC Auto (Bl d)Ordered By: Donavon Yanes on 06-18-2022 Neutrophils/100 WBC (Bld) 65.8 % . [facility] No Panel InformationOrdered By: Donavon Yanes on 06-18-2022 Estimated GFR () > 60 mL/Min [facility] Comment on above: GFR estimated refere nce range: According to KDOQI guidelines, <60 ml/min/1.73m2 is sufficient to diagnose a patient with chronic kidney disease. Pharmacy Creatinine Clearance (Chem N/A [facility] Platelet mean volume Auto (B ld) [Entitic vol]Ordered By: Donavon Yanes on 06-18-2022 Platelet mean volume (Bld) [Entitic vol] 8.8 fL 6.3-10.7 [facility] Platelets Auto (Bld) [#/Vol] Ordered By: Donavon Yanes on 06-18-2022 Platelets (Bld) [#/Vol] 307 10*3/uL 150-450 [facility] Protein [Mass/volume] in Ser um or PlasmaOrdered By: Donavon Yanes on 06-18-2022 Protein [Mass/Vol] 6.7 g/dL 6.1-7.9 [facility] RBC Auto (Bld) [#/Vol]Ordere d By: Donavon Yanes on 06-18-2022 RBC (Bld) [#/Vol] 4.36 10*6/uL 3.60-5.[address] [facility] Serum or plasma alanine perry otransferase measurement without P-5'-P (enzymatic activiOrdered By: Donavon Yanes on 06-18-2022 ALT No additional P-5'-P [Catalytic activity/Vol] 14 U/L 10-60 [facility] Serum or plasma albumin/glob ulin mass ratioOrdered By: Donavon Yanes on 06-18-2022 Albumin/Globulin [Mass ratio] 1.7 {ratio} [facility] Serum or plasma alkaline blair sphatase measurement (enzymatic activity/volume)Ordered By: Donavon Yanes on 06-18-2022 ALP [Catalytic activity/Vol] 49 U/L 32-92 [facility] Serum or plasma anion gap de terminationOrdered By: Donavon Yanes on 06-18-2022 Anion gap [Moles/Vol] 10.0 mmol/L 6.0-15.0 [facility] Serum or plasma aspartate am inotransferase measurement (enzymatic activity/volume)Ordered By: Donavon Yanes on 06-18-2022 AST [Catalytic activity/Vol] 19 U/L 10-42 [facility] Serum or plasma calcium michael urement (mass/volume)Ordered By: Donavon Yanes on 06-18-2022 Calcium [Mass/Vol] 9.4 mg/dL 8.2-10.2 [facility] Serum or plasma chloride mandeep surement (moles/volume)Ordered By: Donavon Yanes on 06-18-2022 Chloride [Moles/Vol] 103 mmol/L 95-114 [facility] Serum or plasma glucose michael urement (mass/volume)Ordered By: Donavon Yanes on 06-18-2022 Glucose [Mass/Vol] 86 mg/dL 70-100 [facility] Comment on above: ADA recommended refe rence rangeRandom Glucose Reference Range is dependent on time and content of last meal. Glucose of more than 200 mg/dL in a nonstressed, ambulatory subject supports the diagnosis of Diabetes Mellitus. Serum or plasma high density lipoprotein (HDL) cholesterol measurementOrdered By: Donavon Yanes on 06-18-2022 Cholesterol in HDL [Mass/Vol] 46 mg/dL 35-85 [facility] Comment on above: HDL CHOL ATP-III CLA SSIFICATION Cardiovascular RiskHDL > or equal to 60 mg/dL LOWHDL < 40 mg/dL HIGH Serum or plasma potassium me asurement (moles/volume)Ordered By: Donavon Yanes on 06-18-2022 Potassium [Moles/Vol] 3.7 mmol/L 3.5-5.1 [facility] Serum or plasma sodium measu rement (moles/volume)Ordered By: Donavon Yanes on 06-18-2022 Sodium [Moles/Vol] 136 mmol/L 136-146 [facility] Serum or plasma total biliru bin measurement (mass/volume)Ordered By: Donavon Yanes on 06-18-2022 Bilirubin [Mass/Vol] 1.9 mg/dL 0.3-1.2 [facility] Comment on above: Samples from patient s who have taken Naproxen have shown spurious elevation in Total Bilirubin levels. A metabolite of Naproxen, O-desmethylnaproxen, has been shown to interfere with the Oren-Jarek method for measuring Total Bilirubin. Serum or plasma total carbon dioxide measurement (moles/volume)Ordered By: Donavon Yanes on 06-18-2022 CO2 [Moles/Vol] 26.7 mmol/L 22.0-30.0 [facility] Serum or plasma total choles terol/high density lipoprotein (HDL) cholesterol mass ratOrdered By: Donavon Yanes on 06-18-2022 Cholesterol.total/Choles terol in HDL [Mass ratio] 3.1 {ratio} <5.0 [facility] Serum or plasma urea nitroge n measurement (mass/volume)Ordered By: Donavon Yanes on 06-18-2022 Urea nitrogen [Mass/Vol] 5 mg/dL 9- [facility] TSH DL <= 0.005 mIU/L QnOrde red By: Donavon Yanes on 06-18-2022 TSH Qn 0.74 m[IU]/L 0.45-5.33 [facility] Thyroxine (T4) free [Mass/vo lume] in Serum or PlasmaOrdered By: Donavon Yanes on 06-18-2022 Free T4 [Mass/Vol] 0.86 ng/dL 0.61-1.12 [facility] Triglyceride [Mass/volume] i n Serum or PlasmaOrdered By: Donavon Yanes on 06-18-2022 Triglyceride [Mass/Vol] 70 mg/dL 35-149 [facility] Comment on above: TRIG ATP III CLASSIF ICATIONTRIG less than 150 mg/dL NormalTRIG 150-199 mg/dL Borderline highTRIG 200-500 mg/dL High TRIG greater than 500 mg/dL Very highStandard traceable to the Center for Disease Conrtrol and Prevention (CDC) test method. Urine microalbumin measureme nt with detection limit of 20 mg/L or less (mass/volume)Ordered By: Donavon Yanes on 06-18-2022 Albumin DL <= 20 mg/L (U) [Mass/Vol] 67.2 mg/dL 0.0-1.8 [facility] Urine microalbumin/creatinin e mass ratioOrdered By: Donavon Yanes on 06-18-2022 Albumin/Creatinine DL <= 20 mg/L (U) [Mass ratio] 592.0 mg/g 0.0-30.0 [facility] Comment on above: 30-300 mg/g indicate s an increased risk for diabetic nephropathy. Greater than 300 mg/g is consistent with clinical nephropathy. (Am. J. Kidney Disease 1994, 25:107) PAP ACOG PANEL 2: to 28on 03-19-2022 . . Normal [facility] Comment on above: Performed By: #### [id number] #### [facility] [address] [address] [address] Angelica Smith Age Gdln ACOG Testing - Normal [facility] Comment on above: Performed By: #### [id number] #### [facility] [address] [place], [place] [address] Dr. Angelica Smith DIAGNOSIS: Comment Normal [facility] Comment on above: Result Comment: NEGA TIVE FOR INTRAEPITHELIAL LESION OR MALIGNANCY. Performed By: #### [id number] #### [facility] [address] [place] [address] Dr. Angelica Smith Methodology: Comment [facility] Comment on above: Result Comment: This liquid based ThinPrep(R) pap test was screened with the use of an image guided system. Performed By: #### [id number] #### [facility] [address] [place] [address] Dr. Angelica Smith Note: Comment Normal [facility] Comment on above: Result Comment: The Pap smear is a screening test designed to aid in the detection of premalignant and malignant conditions of the uterine cervix. It is not a diagnostic procedure and should not be used as the sole means of detecting cervical cancer. Both false-positive and false-negative reports do occur. . Performed By: #### [id number] #### [facility] [address] [place] [address] Dr. Angelica Smith Performed by: Comment Normal [facility] Comment on above: Result Comment: Sherry Torres, Machine Hostler (ASCP) Performed By: #### [id number] #### [facility] [address] [place] [address] Dr. Angelica Smith Reflex Criteria: Comment [facility] Comment on above: Result Comment: The HPV DNA reflex criteria were not met with this specimen result therefore, no HPV testing was performed. . Performed By: #### [id number] #### [facility] [address] [place] [address] Dr. Angelica Smith Specimen adequacy: Comment [facility] Comment on above: Result Comment: Sati sfactory for evaluation. Endocervical and/or squamous metaplastic cells (endocervical component) are present. Performed By: #### [id number] #### [facility] [address] [place] [address] Dr. Angelica Smith Vital Signs Date Time Vital Sign Value Performing Clinician Facility 10-21-2023 09:48-0500 Body height 175.3 cm Raeann Ch NP Work Phone: [facility] 10-21-2023 09:48-0500 Body mass index (BMI) [Ratio] 19.05 kg/m2 Raeann Warchol C[employer] TELE[employer]ION [employer] TECHNICIAN Work Phone: [facility] 10-21-2023 09:48-0500 Body temperature 98.2 [degF] Raeann Warchol CABLE TELEVISION LINE TECHNICIAN Work Phone: [facility] 10-21-2023 09:48-0500 Body weight 58.51 kg Raeann Warchol CABLE TELEVISION LINE TECHNICIAN Work Phone: [facility] 10-21-2023 09:48-0500 Diastolic blood pressure 60 mm[Hg] Raeann Warchol CABLE TELEVISION LINE TECHNICIAN Work Phone: [facility] 10-21-2023 09:48-0500 Heart rate 81 /min Raeann Warchol CABLE TELEVISION LINE TECHNICIAN Work Phone: [facility] 10-21-2023 09:48-0500 SaO2% (BldA) [Mass fraction] 100 % Raeann Warchol CABLE TELEVISION LINE TECHNICIAN Work Phone: [facility] 10-21-2023 09:48-0500 Systolic blood pressure 112 mm[Hg] Raeann Warchol CABLE TELEVISION LINE TECHNICIAN Work Phone: [facility] 04-10-2022 10:10-0400 Body height 172.72 cm Kirstin Hernandez Other [facility] Other 04-10-2022 10:10-0400 Body mass index (BMI) [Ratio] 20.37 kg/m2 Kirstin Hernandez Other [facility] Other 04-10-2022 10:10-0400 Body temperature 98.1 [degF] Kirstin Hernandez Other [facility] Other 04-10-2022 10:10-0400 Body weight 60.78 kg Kirstin Hernandez Other [facility] Other 04-10-2022 10:10-0400 Diastolic blood pressure 62 mm[Hg] Kirstin Hernandez Other [facility] Other 04-10-2022 10:10-0400 Respiratory rate 16 /min Kirstin Hernandez Other [facility] Other 04-10-2022 10:10-0400 SaO2% (BldA) [Mass fraction] 98 % Kirstin Hernandez Other [facility] Other 04-10-2022 10:10-0400 Systolic blood pressure 104 mm[Hg] Kirstin Hernandez Other [facility] Other 01-02-2022 11:10-0400 Body height 172.72 cm Kirstin Hernandez Other [facility] Other 01-02-2022 11:10-0400 Body mass index (BMI) [Ratio] 21.59 kg/m2 Kirstin Hernandez Other [facility] Other 01-02-2022 11:10-0400 Body temperature 98 [degF] Kirstin Hernandez Other [facility] Other 01-02-2022 11:10-0400 Body weight 64.41 kg Kirstin Hernandez Other [facility] Other 01-02-2022 11:10-0400 Diastolic blood pressure 68 mm[Hg] Kirstin Hernandez Other [facility] Other 01-02-2022 11:10-0400 Respiratory rate 16 /min Kirstin Hernandez Other [facility] Other 01-02-2022 11:10-0400 SaO2% (BldA) [Mass fraction] 99 % Kirstin Hernandez Other [facility] Other 01-02-2022 11:10-0400 Systolic blood pressure 104 mm[Hg] Kirstin Hernandez Other [facility] Other 09-03-2021 11:10-0500 Body height 172.72 cm Kirstin Hernandez Other [facility] Other 09-03-2021 11:10-0500 Body mass index (BMI) [Ratio] 21.89 kg/m2 Kirstin Hernandez Other [facility] Other 09-03-2021 11:10-0500 Body temperature 97.3 [degF] Kirstin Hernandez Other [facility] Other 09-03-2021 11:10-0500 Body weight 65.32 kg Kirstin Hernandez Other [facility] Other 09-03-2021 11:10-0500 Diastolic blood pressure 60 mm[Hg] Kirstin Hernandez Other [facility] Other 09-03-2021 11:10-0500 SaO2% (BldA) [Mass fraction] 95 % Kirstin Hernandez Other [facility] Other 09-03-2021 11:10-0500 Systolic blood pressure 104 mm[Hg] Kirstin Hernandez Other [facility] Other 07-07-2021 14:00-0400 Body height 172.72 cm Kirstin Hernandez Other [facility] Other 07-07-2021 14:00-0400 Body mass index (BMI) [Ratio] 22.04 kg/m2 Kirstin Hernandez Other [facility] Other 07-07-2021 14:00-0400 Body temperature 98.1 [degF] Kirstin Hernandez Other [facility] Other 07-07-2021 14:00-0400 Body weight 65.77 kg Kirstin Cortezfredy Other [facility] Other 07-07-2021 14:00-0400 Diastolic blood pressure 70 mm[Hg] Kirstin Cortezfredy Other [facility] Other 07-07-2021 14:00-0400 Respiratory rate 18 /min Kirstin Diegofredy Other [facility] Other 07-07-2021 14:00-0400 SaO2% (BldA) [Mass fraction] 99 % Kirstin Cortezfredy Other [facility] Other 07-07-2021 14:00-0400 Systolic blood pressure 110 mm[Hg] Kirstin Hernandez Other [facility] Other Encounters Encounter Date Encounter Type Care Provider Facility Start: 02-28-2024 End: 02-28-2024 ambulatory JHONATHAN TALIA Not Available Start: 02-04-2024 End: 02-04-2024 ambulatory RAEANN WARCHOL Not Available Start: 12-21-2023 End: 12-21-2023 ambulatory ESME JOSHI Not Available Start: 12-15-2023 ambulatory [facility] Work Phone: Start: 12-15-2023 Non-patient / Non-visit [facility] Work Phone: Start: 10-21-2023 End: 10-21-2023 ambulatory RAEANN WARCHOL Not Available Start: 10-21-2023 End: 10-21-2023 Office outpatient visit 15 minutes Raeann Ch CABLE TELEVISION LINE TECHNICIAN Work Phone: [facility] Comment on above: Attention-deficit hy peractivity disorder, other type (CMS/HCC) (Primary Dx); Bilateral impacted cerumen Start: 09-02-2023 End: 09-02-2023 ambulatory Tyler Armstrong Facility:[facility] Start: 08-31-2023 End: 08-31-2023 ambulatory RAEANN WARCHOL Not Available Start: 08-19-2023 End: 08-19-2023 ambulatory Raeann Warchol Facility:[facility] Start: 08-19-2023 End: 08-19-2023 ambulatory [facility] Work Phone: [facility] Work Phone: Start: 08-19-2023 End: 08-19-2023 Patient encounter procedure [facility] Work Phone: [facility] Start: 08-18-2023 End: 08-18-2023 ambulatory RAEANN WARCHOL Not Available Start: 08-10-2023 End: 08-10-2023 ambulatory Raeann Warchol Facility:[facility] Start: 08-10-2023 End: 08-10-2023 ambulatory [facility] Work Phone: [facility] Work Phone: Start: 08-10-2023 End: 08-10-2023 Patient encounter procedure [facility] Work Phone: [facility] [place] Work Phone: Start: 08-01-2023 End: 08-01-2023 ambulatory MACHELLE RAMESH Not Available Start: 07-20-2023 End: 07-20-2023 ambulatory Raeann Warchol Facility:[facility] Start: 07-20-2023 End: 07-20-2023 ambulatory [facility] Work Phone: [facility] Work Phone: Start: 07-20-2023 End: 07-20-2023 Patient encounter procedure [facility] Work Phone: [facility] [place] Work Phone: Start: 05-27-2023 End: 05-27-2023 ambulatory Tiarra Childs Facility:[facility] Start: 05-27-2023 End: 05-27-2023 ambulatory Services [facility] Work Phone: [facility] Work Phone: Start: 05-27-2023 End: 05-27-2023 Patient encounter procedure Services [facility] Work Phone: [facility] [place] Work Phone: Start: 02-12-2023 End: 02-12-2023 ambulatory Tiarra Childs Facility:[facility] Start: 01-12-2023 End: 01-12-2023 ambulatory Tiarra Rut Childs Facility:[facility] Start: 01-12-2023 End: 01-12-2023 ambulatory Services [facility] Work Phone: [facility] Work Phone: Start: 01-12-2023 End: 01-12-2023 Departed Referred Services [facility] Work Phone: [facility] Start: 12-09-2022 End: 12-09-2022 ambulatory DO Kirstin Hernandez Work Phone: [facility] Work Phone: Start: 12-09-2022 End: 12-09-2022 Departed Referred DO Kirstin Hernandez Work Phone: [facility] Start: 12-04-2022 End: 12-04-[address] JHONATHAN PEDRAZA . Facility: Start: 11-26-2022 Encounter for other preprocedural examination DR JHONATHAN PEDRAZA . [facility] Start: 11-26-2022 End: 11-26-2022 ambulatory DO Kirstin Hernandez Work Phone: [facility] Work Phone: Start: 11-26-2022 End: 11-26-2022 Patient encounter procedure DO Kirstin Hernandez Work Phone: [facility]CT Scan [facility] [place] Work Phone: Start: 11-24-2022 End: 11-25-2022 ambulatory PRIMITIVO CHAU Facility:[facility] Start: 11-24-2022 End: 11-25-2022 Encounter for other preprocedural examination PRIMITIVO CHAU Facility:[facility] Start: 10-29-2022 End: 10-29-2022 ambulatory DO Kirstin Hernandez Work Phone: [facility] Work Phone: Start: 10-29-2022 End: 10-29-2022 Patient encounter procedure DO Kirstin Hernandez Work Phone: [facility]Ultrasound [facility] [place] Work Phone: Start: 10-20-2022 End: 10-20-2022 ambulatory DO Kirstin Hernandez Work Phone: [facility] Work Phone: Start: 10-20-2022 End: 10-20-2022 Departed Referred DO Kirstin Hernandez Work Phone: [facility] Start: 10-09-2022 End: 10-09-2022 Departed Referred DO Kirstin Hernandez Work Phone: [facility] Start: 10-02-[address] JHONATHAN PEDRAZA . Facili ty:[facility] Start: 09-29-[address] JHONATHAN PEDRAZA . Facili ty:[facility] Start: 09-28-2022 End: 09-28-2022 ambulatory HUMPHREY HOLLAND Facility:[facility] Start: 09-23-[address] JHONATHAN PEDRAZA . Facili ty:[facility] Start: 09-22-2022 End: 10-20-[address] JHONATHAN PEDRAZA . Facility:[facility] Start: 08-11-2022 End: 08-11-2022 ambulatory DO Kirstin Henrandez Work Phone: [facility] Work Phone: Start: 08-11-2022 End: 08-11-2022 Patient encounter procedure DO Kirstin Hernandez Work Phone: [facility] [place] Start: 08-04-2022 End: 08-04-2022 ambulatory Kirstin Hernandez Other [facility] Other Start: 08-04-2022 Telephone encounter Kirstin Hernandez [facility] [place] Start: 06-25-[address] JHONATHAN PEDRAZA . Facili ty:[facility] Start: 06-18-2022 End: 06-18-2022 ambulatory DO Kirstin Hernandez Work Phone: [facility] Work Phone: Start: 06-18-2022 End: 06-18-2022 Patient encounter procedure DO Kirstin Hernandez Work Phone: [facility] [place] Start: 06-12-[address] JHONATHAN PEDRAZA . Facili ty:[facility] Start: 06-08-[address] JHONATHAN PEDRAZA . Facili ty:[facility] Start: 04-14-2022 End: 04-14-2022 ambulatory Kirstin Hernandez Other [facility] Other Start: 04-14-2022 Telephone encounter [facility] Start: 04-10-2022 End: 04-10-2022 ambulatory Kirstin Hernandez Other [facility] Other Start: 04-10-2022 Office outpatient vi sit 15 minutes Kirstin Hernandez [facility] Start: 03-24-[address] KIRSTIN HERNANDEZ Facilit y:[facility] Start: 03-16-2022 End: 03-16-[address] JHONATHAN PEDRAZA . Facility:[facility] Start: 03-10-2022 End: 03-10-2022 ambulatory Kirstin Hernandez Other [facility] Other Start: 03-10-2022 Telephone encounter Kirstin Hernandez [facility] Start: 01-02-2022 End: 01-02-2022 ambulatory Kirstin Hernandez Other [facility] Other Start: 01-02-2022 Office outpatient vi sit 25 minutes Kirstin Hernandez [facility] [place] Start: 01-02-2022 Telephone encounter Kirstin Hernandez [facility] [place] Start: 12-08-2021 End: 12-08-2021 ambulatory Kirstin Hernandez Other [facility] Other Start: 12-08-2021 Telephone encounter Kirstin Hernandez [facility] [place] Start: 12-02-2021 End: 12-02-2021 ambulatory Kirstin Hernandez Other [facility] Other Start: 12-02-2021 Telephone encounter Kirstin Hernandez [facility] [place] Start: 09-03-2021 End: 09-03-2021 ambulatory Kirstin Hernandez Other [facility] Other Start: 09-03-2021 Office outpatient vi sit 15 minutes Kirstin Hernandez [facility] [place] Start: 07-07-2021 Office outpatient vi sit 15 minutes Kirstin Hernandez [facility] [place] Procedures Date Procedure Procedure Detail Performing Clinician Start: 08-10-2023 Respiratory Panel (PCR) Services [facility] Work Phone: Start: 12-09-2022 Respiratory Panel (PCR) DO Kirstin Hernandez Work Phone: Start: 11-26-2022 Computed tomography of abdomen and pelvis with contrast DO Kirstin Hernandez Work Phone: Start: 10-29-2022 Ultrasonography of b ilateral kidneys DO Kirstin Hernandez Work Phone: Start: 10-29-2022 US scan of gallbladder DO Kirstin Hernandez Work Phone: Plan of Treatment Date Care Activity Detail Author Start: 12-15-2023 Patient referral [facility] Work Phone: Start: 01-12-2023 Bacteria identified in Urine by Culture Urine Culture [facility] 17-Hydroxyprogestero ne [Mass/volume] in Serum or Plasma [facility] Alternaria alternata IgE Ab [Units/volume] in Serum [facility] Jamaican house dust mite IgE Ab [Units/volume] in Serum [facility] Jamaican [place] Ig E Ab [Units/volume] in Serum [facility] Androstenedione [Mas s/volume] in Serum or Plasma [facility] Aspergillus fumigatu s IgE Ab [Units/volume] in Serum [facility] Shaffer's yeast IgE Ab [Units/volume] in Serum [facility] Banana IgE Ab [Units /volume] in Serum [facility] Barley IgE Ab [Units /volume] in Serum [facility] Beef IgE Ab [Units/v olume] in Serum [facility] Bermuda grass IgE Ab [Units/volume] in Serum [facility] Boxelder IgE Ab [Uni ts/volume] in Serum [facility] Cat dander IgG Ab [Units/volume] in Serum [facility] Cheese cheddar type IgE Ab [Units/volume] in Serum [facility] Chicken meat IgE Ab [Units/volume] in Serum [facility] Cladosporium herbaru m IgE Ab [Units/volume] in Serum [facility] Cockroach IgE Ab [Units/volume] in Serum [facility] Common Ragweed IgE A b [Units/volume] in Serum [facility] Glenfield IgE Ab [Units/v olume] in Serum [facility] Warrick IgE Ab [Units/volume] in Serum [facility] Cow milk IgE Ab [Uni ts/volume] in Serum [facility] Dog dander IgE Ab [Units/volume] in Serum [facility] Egg white IgE Ab [Units/volume] in Serum [facility] Estradiol (E2) [Mass /volume] in Serum or Plasma [facility] house dust mite IgE Ab [Units/volume] in Serum [facility] Gluten IgE Ab [Units /volume] in Serum [facility] HLA DQ antigen typing [facility] IgE [Units/volume] i n Serum or Plasma [facility] Insulin [Units/volum e] in Serum or Plasma [facility] Insulin [Units/volum e] in Serum or Plasma [facility] Lutropin [Units/volu me] in Serum or Plasma [facility] Mountain Juniper IgE Ab [Units/volume] in Serum [facility] Mouse urine proteins IgE Ab [Units/volume] in Serum [facility] Oat IgE Ab [Units/vo lume] in Serum [facility] Gilman IgE Ab [Units /volume] in Serum [facility] Patient referral [facility] Work Phone: Peanut IgE Ab [Units /volume] in Serum [facility] Pecan or [place] Domo e IgE Ab [Units/volume] in Serum [facility] Penicillium notatum IgE Ab [Units/volume] in Serum [facility] Pork IgE Ab [Units/v olume] in Serum [facility] Potato IgE Ab [Units /volume] in Serum [facility] Progesterone [Mass/v olume] in Serum or Plasma [facility] Rice IgE Ab [Units/v olume] in Serum [facility] Rough Pigweed IgE Ab [Units/volume] in Serum [facility] Eden IgE Ab [Units/vo lume] in Serum [facility] Saltwort IgE Ab [Uni ts/volume] in Serum [facility] Sheep Huntleigh IgE Ab [Units/volume] in Serum [facility] Silver Birch IgE Ab [Units/volume] in Serum [facility] Soybean IgE Ab [Unit s/volume] in Serum [facility] Testosterone Free [Mass/volume] in Serum or Plasma [facility] Testosterone Free [Mass/volume] in Serum or Plasma [facility] Donavon IgE Ab [Unit s/volume] in Serum [facility] Tomato IgE Ab [Units /volume] in Serum [facility] Milligan IgE Ab [Units /volume] in Serum [facility] Wheat IgE Ab [Units/ volume] in Serum [facility] White Marquez IgE Ab [Units/volume] in Serum [facility] White Elm IgG Ab [Units/volume] in Serum [facility] White mulberry IgE A b [Units/volume] in Serum [facility] Graham IgE Ab [Units/volume] in Serum [facility] Immunizations Immunization Date Immunization Notes Care Provider Fa cility 07-20-2023 Influenza, injectable, Madin Melida Canine Kidney, preservative free, quadrivalent Raeann Warchol CABLE TELEVISION LINE TECHNICIAN Work Phone: [facility] 07-10-2022 influenza, injectable, quadrivalent, preservative free Raeann Warchol CABLE TELEVISION LINE TECHNICIAN Work Phone: [facility] 07-07-2022 tetanus toxoid, reduced diphtheria toxoid, and acellular pertussis vaccine, adsorbed Raeann Warchol CABLE TELEVISION LINE TECHNICIAN Work Phone: [facility] 01-13-2022 varicella virus vaccine Raeann Warchol CABLE TELEVISION LINE TECHNICIAN Work Phone: [facility] 12-23-2021 tuberculin skin test; purified protein derivative solution, intradermal Raeann Warchol CABLE TELEVISION LINE TECHNICIAN Work Phone: [facility] 08-18-2021 COVID-19 Vaccine Pfizer - Documentation Purposes Only Kirstin Hernandez Other [facility] 07-28-2021 COVID-19 Vaccine Pfizer - Documentation Purposes Only Kirstin Hernandez Other [facility] 06-11-2021 diphtheria, tetanus toxoids and pertussis vaccine Kirstin Hernandez Other [facility] Other 06-11-2021 measles, mumps and rubella virus vaccine Kirstin Hernandez Other [facility] Other 07-17-2019 influenza, seasonal, injectable Patient Objection Kirstin Hernandez Other [facility] Other 11-09-2014 Rocephin 500 mg Kirstin Hernandez Other [facility] Other 06-09-2012 hepatitis A vaccine, pediatric/adolescent dosage, 2 dose schedule Kirstin Hernandez Other [facility] Other 06-09-2012 human papilloma virus vaccine, quadrivalent Kirstin Hernandez Other [facility] Other 06-09-2012 meningococcal polysaccharide (groups A, C, Y and W-135) diphtheria toxoid conjugate vaccine (MCV4P) Kirstin Diegofredy Other [facility] Other 06-09-2012 tetanus toxoid, reduced diphtheria toxoid, and acellular pertussis vaccine, adsorbed Kirstin Diegofredy Other [facility] Other 04-01-2004 diphtheria, tetanus toxoids and acellular pertussis vaccine, unspecified formulation Kirstin Diegofredy Other [facility] 04-01-2004 measles, mumps and rubella virus vaccine Kirstin Hernandez Other [facility] [employer] Other 04-01-2004 poliovirus vaccine, inactivated Kirstin Cortezfredy Other [facility] [facility] [employer] Other 04-01-2004 poliovirus vaccine, unspecified formulation [facility] 08-20-2000 diphtheria, tetanus toxoids and acellular pertussis vaccine, unspecified formulation Kirstin David Other [employer] Other 08-20-2000 haemophilus influenzae type b vaccine, conjugate unspecified formulation Kirstin Hernandez Other [facility] Other 08-20-2000 measles, mumps and rubella virus vaccine Kirstin Hernandez Other [employer] Other 08-20-2000 poliovirus vaccine, inactivated Kirstin Hernandez Other [facility] [facility] [employer] Other 08-20-2000 poliovirus vaccine, unspecified formulation [facility] 08-20-2000 varicella virus vaccine Kirstin Hernandez Other [employer] Other 01-23-2000 diphtheria, tetanus toxoids and acellular pertussis vaccine, unspecified formulation Kirstin Hernandez Other [facility] [facility] [employer] Other 01-23-2000 haemophilus influenzae type b conjugate and Hepatitis B vaccine Kirstin Hernandez Other [facility] Other 1999 diphtheria, tetanus toxoids and acellular pertussis vaccine, unspecified formulation Kirstin Hernandez Other [facility] Other 1999 haemophilus influenzae type b conjugate and Hepatitis B vaccine Kirstin Hernandez Other [facility] Other 1999 poliovirus vaccine, inactivated Kirstin Hernandez Other [facility] Other 1999 poliovirus vaccine, unspecified formulation [facility] 1999 diphtheria, tetanus toxoids and acellular pertussis vaccine, unspecified formulation Kirstin Hernandez Other [facility] Other 1999 haemophilus influenzae type b conjugate and Hepatitis B vaccine Kirstin Hernandez Other [facility] Other 1999 poliovirus vaccine, inactivated Kirstin Hernandez Other [facility] Other 1999 poliovirus vaccine, unspecified formulation [facility] NEGATED: Highlighted row has not occurred! 1 influenza, seasonal, injectable Patient Objection Kirstin Hernandez Other [facility] Other NEGATED: Highlighted row has not occurred! 9 influenza, seasonal, injectable Patient Objection Kirstin Hernandez Other [facility] Other Payers Date Payer Category Payer Medicaid [employer] [place] [id number] 2023-Present [address] [place] [address] [id number] 2021 Unknown BCBS BCBS [id number] 2021-Present [phone] [address] [place] [address] [id number]. [id number] 1999 Unknown [id number] 2.16.840.1.675477.3.579.2. 593 1999 Unknown [id number] 2.16.840.1.284992.3.579.2. 593 1999 Unknown [id number] 2.16.840.1.438290.3.579.2. 593 1999 Unknown [id number] 2.16.840.1.970446.3.579.2. 593 1999 Unknown [id number] 2.16.840.1.476772.3.579.2. 593 1999 Unknown [id number] 2.16.840.1.804574.3.579.2. 593 1999 Unknown [id number] 2.16.840.1.804855.3.579.2. 593 1999 Unknown [id number] 2.16.840.1.215518.3.579.2. 593 1999 Unknown [id number] 2.16.840.1.495129.3.579.2. 593 1999 Unknown [id number] 2.16.840.1.144847.3.579.2. 593 1999 Unknown [id number] 2.16.840.1.052105.3.579.2. 593 1999 Unknown [id number] 2.16.840.1.380908.3.579.2. 593 1999 Unknown [id number] 2.16.840.1.992741.3.579.2. 718 1999 Unknown [id number] 2.16.840.1.525182.3.579.2. 1258 1999 Unknown [id number] 2.16.840.1.474146.3.579.2. 1258 1999 Unknown [id number] 2.16.840.1.202622.3.579.2. 1258 1999 Unknown [id number] 2.16.840.1.841350.3.579.2. 1258 1999 Unknown [id number] 2.16.840.1.646904.3.579.2. 1258 1999 Unknown [id number] 2.16.840.1.036207.3.579.2. 1258 1999 Unknown [id number] 2.16.840.1.364339.3.579.2. 1258 1999 Unknown [id number] 2.16.840.1.361569.3.579.2. 1258 1999 Unknown [id number] 2.16.840.1.035689.3.579.2. 1258 1999 Unknown [id number] 2.16.840.1.651930.3.579.2. [address] [facility] [id number] 2.16.840.1.259101. 1959 Private Health Insurance [id number] .16.840.1.418156. 1959 Private Health Insurance [id number] Self-pay [id number] Unknown [id number] 2.16.840.1.704569.3.579.2. 531 Unknown [id number] 2.16.840.1.777593.3.579.2. 531 Unknown [id number] 2.16.840.1.531234.3.579.2. 531 Unknown [id number] 2.16.840.1.347865.3.579.2. 531 Unknown [id number] 2.16.840.1.668875.3.579.2. 531 Unknown [id number] 2.16.840.1.619236.3.579.2. 531 Social History Date Type Detail Facility Unknown if ever smoked [facility] [employer] Other Start: 10-21-2023 Sex Assigned At [facility] [employer] Other Start: 2000 Sex Assigned At Female [facility] Start: 10-21-2023 Tobacco smoking status RIIS Smokes tobacco daily [facility] Start: 10-21-2023 Tobacco use and exposure Smokeless tobacco non-user [facility] Start: 10-21-2023 Alcohol intake Lifetime non-d nany (finding) [facility] Start: 10-21-2023 History of Social function [facility] Start: 07-20-2023 Tobacco Comment Pt vapes [facility] Start: 08-29-2023 Alcohol Comment caffeine intak e: 2-3 cups per day of soda/pop ; more than 4 cups per day [facility] Start: 2000 Sex Assigned At Not on file [facility] Start: 11-10-2017 Tobacco smoking status RIIS Never smoked tobacco (finding) [facility] NEGATED: Highlighted rowStart: ARUNF History of tobacco use Passive smoker [facility] Clinical Notes 12-02-2011 to 12-15-2023 Raeann Ch NP - 10/21/2023 9:40 AM ESTPatient Instructions Note Date & Type Note Facility 12-15-2023 Hospital Discharg e instructions Ambulatory OrdersReferral to Orthopedics Time Frame: 12/15/23, Location: None Selected [facility] Work Phone: 10-21-2023 History of Presen t illness Narrative ANDREW Rocha is a 23 y.o. female who presents for a chronic illness management visit. Patient is also having complaints of difficulty hearing in bilateral ears. Patient shares that she has always needed cerumen removed from her ears as she has had impaction issues in the past. ADD/ADHD Management Patient is currently taking Vyvanse to control symptoms of ADD/ADHD. Patient denies any current side effects including chest pain, palpitations, or dyspnea. Patient feels the medication is working effectively to manage ADD/ADHD symptoms. Last fill: 08/31/23 CURRENT MEDICATIONS Current Outpatient Medications: Ventolin HFA 108 (90 Base) MCG/ACT inhaler, 2 puffs every 4 (four) hours if needed, Disp: , Rfl: amphetamine-dextroamphetamine XR (Adderall XR) 30 MG 24 hr capsule, Take 1 capsule (30 mg) by mouth in the morning. Do not crush or chew.., Disp: 30 capsule, Rfl: 0 Flovent HFA 44 MCG/ACT inhaler, Inhale 2 puffs in the morning and 2 puffs before bedtime., Disp: , Rfl: omeprazole (PriLOSEC) [address] capsule, 1 (one) time each day at the same time, Disp: , Rfl: RECENT VITAL SIGNS 10/15/2022 12:00 PM 12/17/2022 12:00 PM 03/19/2023 9:32 AM 04/30/2023 9:46 AM 07/20/2023 8:57 AM 08/01/2023 12:07 PM 10/21/2023 9:48 AM Vitals BMI 19.76 kg/m2 20.38 kg/m2 19.2 kg/m2 19.55 kg/m2 19.08 kg/m2 18.46 kg/m2 19.05 kg/m2 BSA (m2) 1.72 m2 1.75 m2 1.69 m2 1.71 m2 1.69 m2 1.66 m2 1.69 m2 Systolic 102 114 108 100 112 102 112 Diastolic 70 62 70 60 68 68 60 Heart Rate 69 89 89 81 SpO2 98 % 100 % 98 % 100 % Temp 98 F 97.3 F 98.2 F 98.2 F Resp 18 Height (in) 5' 9 5' 9 5' 9 5' 9 5' 9 5' 9 Weight (lb) 133.8 138 130 132.4 129.2 125 129 Visit Report Report Report Report Report Report OBJECTIVE Physical Exam Vitals and nursing note reviewed. Constitutional: Appearance: Normal appearance. She is normal weight. HENT: Head: Normocephalic and atraumatic. Right Ear: External ear normal. There is impacted cerumen. Left Ear: External ear normal. There is impacted cerumen. Nose: Nose normal. Mouth/Throat: Mouth: Mucous membranes are moist. Eyes: Pupils: Pupils are equal, round, and reactive to light. Cardiovascular: Rate and Rhythm: Normal rate and regular rhythm. Pulses: Normal pulses. Heart sounds: Normal heart sounds. Pulmonary: Effort: Pulmonary effort is normal. Breath sounds: Normal breath sounds. Abdominal: General: Bowel sounds are normal. Palpations: Abdomen is soft. Musculoskeletal: General: Normal range of motion. Cervical back: Normal range of motion. Skin: General: Skin is warm and dry. Capillary Refill: Capillary refill takes less than 2 seconds. Neurological: General: No focal deficit present. Mental Status: She is alert and oriented to person, place, and time. Psychiatric: Mood and Affect: Mood normal. ASSESSMENT/PLAN Diagnoses and all orders for this visit: Attention-deficit hyperactivity disorder, other type (CMS/HCC) - amphetamine-dextroamphetamine XR (Adderall XR) 30 MG 24 hr capsule; Take 1 capsule (30 mg) by mouth in the morning. Do not crush or chew.. Bilateral impacted cerumen FOLLOW-UP Follow up in about 3 months (around 01/19/2024) for Next scheduled follow-up: CIM . documented in this encounter [facility] 10-21-2023 Instructions Raeann Ch NP - 10/21/2023 9:40 AM EST PATIENT EDUCATION: ADHD Current drug therapy discussed during office visit. Call office for worsening of symptoms for follow-up visit. Per [facility] regulations, follow-ups have to occur at least every 3 months. Patient verbalized understanding of these rules in order for us to continue filling medications. OARRS/PDMP reviewed without concern. Medications should be safely filled and stored as this is a controlled substance. CERUMEN IMPACTION Bilateral ears lavaged with successful removal of ear wax. Recommended use of 1/2 strength hydrogen peroxide rinses three times weekly to manage cerumen accumulation. Over the counter Debrox per box instructions may also help with softening of wax build up. Follow-up as needed for repeat lavage. documented in this encounter [facility] 09-03-2023 Note [id number] [facility] 09-02-2023 Note Patient Education Ma terials Follows: [facility] 12-04-2022 Note OPERATIVE NOTE OPERATION DATE: 12/04/2022 PROCEDURE: Robotic assisted diagnostic laparoscopy. PREOPERATIVE DIAGNOSIS: Pelvic pain. POSTOPERATIVE DIAGNOSIS: Pelvic pain. ANESTHESIA: General. SURGEON: Jhonathan Pedraza D.O. SYSTEMATIC THEOLOGY PROFESSOR: STEPHON Weber URINE OUTPUT: Yellow and clear. BLOOD LOSS: 5 mL. FINDINGS: Normal appearing ovaries, uterus and tubes. SPECIMEN: None. PROCEDURE: The patient was taken back to the Operating Room where she was placed in dorsal lithotomy position after given general anesthesia. The patient was prepped and draped in normal sterile fashion. A sponge stick was placed into the patient's vagina. Attention was turned to the patient's abdomen, where a small umbilical incision was made. The fascia was tented using Sabrina clamps and the fascia was entered sharply. Confirmation of intra-abdominal placement of the 10 mm port was confirmed under direct visualization using a laparoscope. The patient's abdomen was then insufflated using CO2 gas with approximately 4 liters. A second port was placed left laterally; this was done under direct visualization with a 5 mm port. Survey of the patient's abdomen demonstrated normal liver and gallbladder. Survey of the patient's pelvic anatomy demonstrated normal appearing ovaries and tubes as well as normal appearing uterus. No endometrial implants could be noted, no evidence of any pelvic disease was seen, normal appearing pelvic cavity. All instruments were removed from the patient's abdomen. The patient's abdomen was desufflated of CO2 gas. The patient tolerated the procedure well. Sponge stick was removed from the patient's vagina. The patient's infraumbilical fascia was closed using #0 Vicryl on a GI needle. The patient's skin was closed laterally and infraumbilically using 4-0 Vicryl. The patient tolerated the procedure well. Sponge, lap and needle counts were correct x 2. The patient was taken to Recovery Room in stable condition. [facility] 08-04-2022 Evaluation note Encounter Date Diagnosis Assessment Notes 15 Nov, 2022 ADHD (attention deficit hyperactivity disorder) (ICD-10 - F90.9) Jul, Anxiety (ICD-10 - F41.9) [facility] Other 07-22-2022 Evaluation note* Encounter Date Diagnosis Assessment Notes Treatment Notes Treatment Clinical Notes Mar, ADHD (attention deficit hyperactivity disorder) (ICD-10 - F90.9) She does continue to use and benefit from the Adderall and feels the dose is adequate. I will see her back in three months. Frequent appointments needed due to addiction potential of medication were reviewed. She only takes the medication four days a week and not on the weekends. She can continue with this. Side effects/risks/bene fits of medication were reviewed. Mar, Chest pain (ICD-10 - R07.9) She voices that she never had the EKG done, voices that if she was not in class she would not have noticed anything abnormal. On an average day she does feel as if she will pass out when she stands up. Different type of arrhythmia was discussed today. She voices that she has had some tightness in her test the last few days. I did recommend that she have the EKG done soon. She will be having a procedure done in May (2021) so I did recommend that she have the EKG done. Mar, Constipation (ICD-10 - K59.00) She voices that some days she has good bowel movements and other days she does not have any bowel movements. Recently she has not gone more than two days without a bowel movement which is an improvement for her. Mar, PCOS (polycystic ovarian syndrome) (ICD-10 - E28.2) She voices that control pills make her sick. IUD treatment after a year makes her curl up in a ball and after she had her son she tried an IUD again but the pain returned and was worse so she had to fight the doctor to get them to remove it. She was placed on a patch for control but was afraid to start this so she did not. She has had a laproscopic done before and is going to have another one done in May) by Dr. Pedraza. [facility] Other 06-21-2022 Evaluation note* Encounter Date Diagnosis Assessment Notes Treatment Notes Treatment Clinical Notes Feb, Fatigue (ICD-10 - R53.83) Feb, Weakness (ICD-10 - R53.1) Feb, Chest pain (ICD-10 - R07.9) [facility] Other 04-15-2022 Evaluation note* Encounter Date Diagnosis Assessment Notes Treatment Notes Treatment Clinical Notes Dec, Vomiting (ICD-10 - R11.10) She voices that she had so much stomach/back pain yesterday that all of a sudden she felt like she had to vomit and actually did get up and vomit, her stomach felt better after this. She had muffins and water for breakfast yesterday and it was 2-3 hours later when she vomited. She does not feel worse after she eats. If she begins to vomit and/or her back pain worsens she needs to go to the ER for evaluation to rule out pyelonephritis. She has not eaten anything other than an Oreo since she vomited because she has not been hungry. Dec, Flank pain (ICD-10 - R10.9) She does not have a history of kidney stones. Dec, Back pain (ICD-10 - M54.9) She voices that she has been having alot of different pains and has felt that this was due to her IUD. Her back continues to hurt today but it is at it's normal level of pain. Her pain is in the mid back around the bra line. I would like her to provide a urine sample today, if this is infected then we will treat her for a urine infection. Dec, Constipation (ICD-10 - K59.00) On average she has a bowel movement every 2 days. She has hard, painful bowel movements. Some days it can be diarrhea all day, some days she does not go at all. I would like to order an x-ray of her abdomen to rule out constipation. I did recommend that she begin taking Colace daily and also start MiraLax 1 capful in 10 oz of water daily. Dec, ADHD (attention deficit hyperactivity disorder) (ICD-10 - F90.9) She does continue to use and benefit from the Adderall. Side effects/risks/bene fits of medication were reviewed. I will see her back in three months. She can call for refills when needed. Frequent appointments needed due to addiction potential of medication. Dec, Change in bowel habits (ICD-10 - R19.4) Dec, Paresthesia (ICD-10 - R20.2) At times her left arm will go numb and tingle for no reason but also her legs go numb as well. She voices that it is random. She has not found any correlation to when this happens and it does not happen all the time. I did ask her to watch for a pattern to when this happens. She is to keep me posted, so we can begin to document when this happens and work towards a possible MRI of the brain. Right now we will need to continue to monitor this issue, as she has other issues that take precedence. Dec, Other emt intermediate (current) drug therapy (ICD-10 - Z79.899) Dec, Other She voices that her IUD was removed on 12-30-21. She has PCOS and in 2019 she had an ovarian cyst removed. She is going to be switching from Dr. Pedraza to Dr. Chauhan. She will see Dr. Chauhan in January (2021). She voices that her bones hurt and she feels weak. Her fingers would get stuck when she was and she thinks she has carpal tunnel. We discussed these things today, she does not have these symptoms all the time. I did ask her to continue to monitor and call when she has the symptoms so they can be documented. [facility] Other 03-15-2022 Evaluation note* Encounter Date Diagnosis Assessment Notes Treatment Notes Treatment Clinical Notes Nov, ADHD (attention deficit hyperactivity disorder) (ICD-10 - F90.9) [facility] Other 12-15-2021 Evaluation note* Encounter Date Diagnosis Assessment Notes Treatment Notes Treatment Clinical Notes Aug, ADHD (attention deficit hyperactivity disorder) (ICD-10 - F90.9) She is currently taking online medical coding and billing classes and feels she needs medication to help her concentrate. She has only been able to complete four lessons since April (2020) but admits the lessons are long, however she has 34 more to go. She has two years to complete the course. She is not . If she has any mood swings or does not feel the medication works well for her then she is to stop the medication. Guidance is given on how to take the medication. She can take the medication twice a day and can adjust the second dose as needed. Knowing the risks and benefits of the medication she does want to take the Adderall. I did explain to her that she has to be seen every three months in order to continue with the medication. She can call for refills in between visits. Side effects/risks/bene fits of medication were reviewed. Aug, Anxiety (ICD-10 - F41.9) She voices that she is no longer taking medication for her bipolar depression anymore because when she did it caused the opposite effect for her, she was angry on the medication. Prior to her the Latuda worked well for her. It did not work after she had her baby. She is following with a counselor and was referred to a psychologist but has not been able to get ahold of them. Her counseling is going well. She is taking above medication as needed. Aug, Anemia (ICD-10 - D64.9) I did review her blood work results after she delivered her son, her HGB was low at 8.6. I would like to repeat lab to be sure that her HGB has improved. Aug, Other mcfp (current) drug therapy (ICD-10 - Z79.899) After she has been on the Adderall for a few weeks she should have lab drawn to be sure the medication is not affecting liver or kidneys, she can call for results. [facility] Other 10-18-2021 Evaluation note* Encounter Date Diagnosis Assessment Notes Treatment Notes Treatment Clinical Notes Jun, ADHD (attention deficit hyperactivity disorder) (ICD-10 - F90.9) She voices that she cannot concentrate, she is up and down constantly. If she wants to sit and down to do school work she cannot concentrate. She is studying medical coding and billing online and is unable to do this. She has to re-read what she has just read. She is currently . I am not comfortable putting her on anything while she is . I did recommend that she do some form of exercise throughout the day. She is encouraged to find a new psychiatrist, she can check with her insurance to see who is covered. She questions taking Hydroxyzine but again because she is I am not comfortable prescribing this for her. Jun, Other She was diagnos ed with Bipolar depression in the past. She was told that she would not be able to go without her medication and when she had her baby she had things arranged so that she would not be alone with the baby for up to three weeks because she was scared. She did start her Latuda and Lamictal. She went back to see the psychiatrist and they discussed that she did not feel as bad as she did before and now her Bipolar diagnosis is in question. She felt that her concerns were dismissed. She began to feel that the medications were making her want to avoid the baby and her boyfriend. Once she started to breastfeed the baby she stopped taking the medications and began to feel better. She began to see a new counselor. She is going to have EMDR done through her new counselor. [facility] Other 03-14-2012 History general Narrative - Reported* Type Description Date Medical History 12-02-2011 Echo - Structurally No rmal Heart Medical History 12-02-11 CXR - Negative Medical History 12-02-11 Echo- Structurally [place] [facility] Medical History Pre & Post Spirometry Medical History ADD Medical History X-Ray Left Ankle 08-07-13; [facility] Medical History PCOS found on ultrasound Medical History bipolar -2 Surgical History No Surgical history information Hospitalization History [facility] - chest pain s 08/12/15 Hospitalization History [facility] panic attack 08/17/15 [facility] Other 03-14-2012 History general Narrative - Reported* Type Description Date Medical History 12-02-2011 Echo - Structurally No rmal Heart Medical History 12-02-11 CXR - Negative Medical History 12-02-11 Echo- Structurally [place] [facility] Medical History Pre & Post Spirometry Medical History ADD Medical History X-Ray Left Ankle 08-07-13; [facility] Medical History PCOS found on ultrasound Medical History bipolar -2 Medical History 10/07/21 pt states sh e had seizures 3-4 years ago that were stress induced Surgical History No Surgical history information Hospitalization History [facility] - chest pain [facility] 08/12/15 Hospitalization History [facility] panic attack 08/17/15 [place] [employer] Other Evaluation noteNo InformationNort [employer] Other Evaluation noteNo assessment information available [facility] Work Phone: Evaluation note* Diagnosis Attention-deficit hyperactivity disorder, other type (CMS/HCC)- Primary Bilateral impacted cerumen Impacted cerumen documented in this encounter NOMS Nanda for visit Narrativemed refill Adderall, discuss multiple issues, see treatment plan for [facility] Other Advance Directives No Advanced Directives Records Found Advance Directive Response Recorded Date/ Time Advance Directives No February 28 12:32pm Advance Directive Response Recorded Date/ Time Advance Directives No February 28 11:32am Chief Complaint and Reason for Visit Chief Complaint R73.9 Z13.6 Z00.00 Chief Complaint E80.6 N28.9 E16.2 Persistent proteinuria Chief Complaint E80.6 N28.9 E16.2 R80.1/Persistent proteinuria R53.82 R10.84 R19.8 R11.0 R63.4 N28.9 Chief Complaint N28.9 E16.2 R80.1/Persistent proteinuria R53.82 R10.84 R19.8 R11.0 R63.4 N28.9 R19.8 R63.4 E16.2 R10.84 K30 N28.9 R11.0 R53.82 Chief Complaint N28.9 E16.2 R80.1/Persistent proteinuria R53.82 R10.84 R19.8 R11.0 R63.4 N28.9 R19.8 R63.4 E16.2 R10.84 K30 N28.9 R11.0 R53.82 Viral upper respiratory tract infection;Sore throa Chief Complaint R53.82 R10.84 R19.8 R11.0 R63.4 N28.9 R19.8 R63.4 E16.2 R10.84 K30 N28.9 R11.0 R53.82 J06.9 J02.9 Urinary frequency Chief Complaint O03.9 Chief Complaint O03.9 R63.4 J06.9 Chief Complaint O03.9 R63.4 J06.9 n91.2 Summary Purpose Family History No Family History Records Found Relationship Condition Age at Onset Recorded Date/T rojelio Not Specified No pertinent family history Unknown Relationship Condition Age at Onset Recorded Date/T rojelio Not Specified No pertinent family history Unknown father Addiction to drug Unknown Family history of mental disorder Unknown grandparent Unknown Additional Source Comments REASON FOR VISIT (unrecogniz ed section and content) anxiety/restarting medicined iscuss med for ADHDclinicalrefillwaiting on UA cultureClinical Acute Illnessmed refill AdderallClinicalrefills Care Teams (unrecognized sec tion and content) Team Status: Active Member Role Status [facility] Mendez Primary Care Provider Active Team Status: Active Member Role Status [facility] Mendez Primary Care Provider Active Start: December 15, 2023 Kirstin Hernandez DO Attending Provider Active Star t: December 15, 2023 Team Status: Inactive Member Role Status Merrick Hernandez DO Primary Care Provider Active Donavon Yanes DO Attending Provider Active Team Status: Active Member Role Status Merrick Hernandez DO Primary Care Provider Active Team Status: Inactive Member Role Status [facility] Primary Care Provider Active UNA Segura Attending Provide r Active Team Status: Inactive Member Role Status Merrick Hernandez DO Primary Care Provider Active UNA Segura Attending Provide r Active Team Status: Active Member Role Status [facility] Primary Care Provider Active Team Status: Inactive Member Role Status [facility] Hurley Attending Provide r Active Services [facility] Primary Care Provider Active Team Status: Inactive Member Role Status [facility] Hurley Attending Provide r Active Team Status: Active Member Role Status [facility] Primary Care Provider El garcia Team Status: Inactive Member Role Status [facility] Primary Care Provider Ac [facility] Morocho Attending Provide r Active Team Status: Inactive Member Role Status [facility] Primary Care Provider Ac [facility] Dennis Attending Provider Active Team Status: Inactive Member Role Status Dates [facility] Ruiz Primary Care Provider, Attending Juan Manuel hoffman Active Loader Technician Relationship Specialty Start Date End Date Yovany Crawley MD [address] [place] [address] PCP - General Family Medicine 07/20/23 Raeann Ch NP [address] [place] [address] Nurse Practitioner Family Medicine 07/20/23 Goals (unrecognized section and content) Goals may be documented in a n alternate section INFORMATION SOURCE (unrecogn ized section and content) DATE CREATED AUTHOR 01/29/2023 [facility] DATE CREATED AUTHOR AUTHOR'S ORGANIZ ATION 09/09/2023 [facility] DATE CREATED AUTHOR AUTHOR'S ORGANIZ ATION 01/04/2024 [facility] DATE CREATED AUTHOR AUTHOR'S ORGANIZ ATION 02/28/2024 [facility] EPIC FOR RECORDS PERTAINING TO PATIENTS WHO ARE OR HAVE BEEN ENROLLED IN A CHEMICAL DEPENDENCY/SUBSTANCEABUSE PROGRAM, SOME INFORMATION MAY BE OMITTED. This clinical summary was aggregated from multiple sources. Caution should be exercised in using it in the provision of clinical care. This summary normalizes information from multiple sources, and as a consequence, information in this document may materially change the coding, format and clinical context of patient data. In addition, data may be omitted in some cases. CLINICAL DECISIONS SHOULD BE BASED ON THE PRIMARY CLINICAL RECORDS. [employer] provides no warranty or guarantee of the accuracy or completeness of information in this document.
[2024-03-30 00:10] LABS: Age Gdln ACOG Testing Note (.); IGP, rfx Aptima HPV ASCU Note (.)
== END 2024-03-27 20:57 | disposition home or self-care (01) ==
LOC: LAB 20:56
PROVIDERS: Visit Provider Obstetrics & Gynecology
DX: Z01.419 Encounter for gynecological examination (general) (routine) without abnormal findings (principal)
CPT/HCPCS: 88175

== ENCOUNTER 2024-05-02 15:52 | Outpatient (OUT) | payer BC, SELFPAY ==
--- NOTE | 2024-05-02 15:56 | US_ITS ---
[address] [address] Patient Name: CHARLETTE ROCHA MRN: [facility]:[id number] date: 2000 Sex: F Assigned Patient Location: US Current Patient Location: Accession/Order Number: [id number] Exam Date: 05/02/2024 16:10 Report Date: 05/03/2024 07:11 At the request of: TESSA MELGAR Procedure: US OB cervical length EXAMINATION: US OB cervical length, US OB anatomy HISTORY: Anatomic Survey Screening COMPARISON: No relevant comparison available. TECHNIQUE: Transabdominal sonographic examination was performed for obstetrical and evaluation. FINDINGS: Number: 1 Heart Rate: 149.17 bpm H.B. /min Amniotic Fluid Volume: Subjectively normal Placental Location: Posterior, the placental edge is 2.6 cm from the internal cervical os, grade 0 Cervix Length: 4.84 cm , closed. Small amount of fluid in the endocervical canal presentation: Variable Normal anatomy: Lateral ventricles, cerebellum, posterior fossa, nose, lips, orbits, diaphragm, stomach, kidneys, abdominal cord insertion, bladder, umbilical arteries, three-vessel cord Suboptimal visualization: Four-chamber heart, RVOT, LVOT, spine, extremities BIOMETRY: BPD: 4.89 cm; 20 weeks 6 days; 40.40 % HC: 18.20 cm; 20 weeks 4 days; 23.40 % AC: 15.45 cm; 20 weeks 4 days; 31 % FL: 3.42 cm; 20 weeks 5 days; 32.20 % EFW:369.95 g; 28.30 %, 13 ounces FL/AC: 22.14 FL/BPD: 69.89 HC/AC: 1.18 GESTATIONAL AGE: Age by EDC: 21 weeks 0 days Age by current US: 20 weeks 5 days KEATON by current US: 2024-09-14 KEATON by EDC: 2024-09-12 US/US OB cervical length IMPRESSION: Suboptimal visualization detailed above Low lying placenta, the placental edge is 2.6 cm from the internal os *Reference: [employer] Practice Guideline for the performance of Obstetric Ultrasound Examinations, June 20, 2007. Electronically authenticated by: KIRSTIN BOJORQUEZ Date: 05/03/2024 07:11
--- NOTE | 2024-05-02 15:56 | US_ITS ---
[address] [address] Patient Name: CHARLETTE ROCHA MRN: [id number] date: 2000 Sex: F Assigned Patient Location: US Current Patient Location: Accession/Order Number: [id number] Exam Date: 05/02/2024 16:10 Report Date: 05/03/2024 07:11 At the request of: TESSA MELGAR Procedure: US OB anatomy EXAMINATION: US OB cervical length, US OB anatomy HISTORY: Anatomic Survey Screening COMPARISON: No relevant comparison available. TECHNIQUE: Transabdominal sonographic examination was performed for obstetrical and evaluation. FINDINGS: Number: 1 Heart Rate: 149.17 bpm H.B. /min Amniotic Fluid Volume: Subjectively normal Placental Location: Posterior, the placental edge is 2.6 cm from the internal cervical os, grade 0 Cervix Length: 4.84 cm , closed. Small amount of fluid in the endocervical canal presentation: Variable Normal anatomy: Lateral ventricles, cerebellum, posterior fossa, nose, lips, orbits, diaphragm, stomach, kidneys, abdominal cord insertion, bladder, umbilical arteries, three-vessel cord Suboptimal visualization: Four-chamber heart, RVOT, LVOT, spine, extremities BIOMETRY: BPD: 4.89 cm; 20 weeks 6 days; 40.40 % HC: 18.20 cm; 20 weeks 4 days; 23.40 % AC: 15.45 cm; 20 weeks 4 days; 31 % FL: 3.42 cm; 20 weeks 5 days; 32.20 % EFW:369.95 g; 28.30 %, 13 ounces FL/AC: 22.14 FL/BPD: 69.89 HC/AC: 1.18 GESTATIONAL AGE: Age by EDC: 21 weeks 0 days Age by current US: 20 weeks 5 days KEATON by current US: 2024-09-14 KEATON by EDC: 2024-09-12 US/US OB anatomy IMPRESSION: Suboptimal visualization detailed above Low lying placenta, the placental edge is 2.6 cm from the internal os *Reference: [employer] Practice Guideline for the performance of Obstetric Ultrasound Examinations, June 20, 2007. Electronically authenticated by: KIRSTIN BOJORQUEZ Date: 05/03/2024 07:11
--- OUTSIDE RECORDS SUMMARY | 2024-05-02 16:05 | XMS_ITS | CCD ---
Author Organization [facility] Care Team Providers Care Banquet Server Name Role Phone Kirstin Hernandez Unavailable David, DO [place] Primary Care Provider [phone] DO Donavon Yanes Attending Provider David, DO [place] Primary Care Provider [phone] DO Donavon Yanes Attending Provider David, DO [place] Primary Care Provider DO Donavon Yanes Attending Provider UNA Childs Attending Pr ovider [facility] Primary Care Provider DO Kirstin Hernandez Primary Care Provider [phone] David, DO [place] Primary Care Provider [phone] UNA Childs Attending Pr ovider [facility] Primary Care Provider [phone] UNA Childs Attending Pr ovider [facility] Primary Care Provider TALIA .DR ZARATE Attending Unavailable DAVID, DR [place]ON Primary [...] Unavailable TALIA ., DR ZARATE Attending [facility]available [facility] Attending Pr ovider UNA Ch Attending Provider [phone] [facility] Primary [facility] ider UNA Childs Attending Pr ovider UNA Ch Attending Provider [phone] UNA Ch Primary Care Provider [phone] Tyler Armstrong Admitting Unavailable Tyler Armstrong Attending Unavailable Tyler Armstrong Primary Care Unavailable Yovany Crawley MD Primary Care Provider Laine SILVERIO Raeann Unavailable UNA Ch Primary Care Provider [phone] HEIDI Cuello Attending Provider [phone] LAINE, RAEANN Attending Unavailable WARCHOL, RAEANN Attending Unavailable ESME JOSHI Attending Unavailable ESME JOSHI Referring Unavailable DIDION, GINNY Brian Attending Unavailable DIDIONGINNY Referring Unavailable WARCHOL, RAEANN Referring Unavailable TALIAJHONATHAN MARTINEZ Attending Unavailable TALIAJHONATHAN MARTINEZ Attending Unavailable LAGINNY GARCIA Attending Unavailable WARCHOL, RAEANN Attending Unavailable Clarisa MIKE Attending Unavailable ChildsTiarra Admitting U navailable ChildsTiarra sterling Attending [facility] U navailable Warchol, Raeann Attending Unavailable [facility], Services Primary Care U navailable Warchol, Raeann Admitting Unavailable Warchol, Raeann Primary Care Unavailable Warchol, Raeann Attending Unavailable Warchol, Raeann Admitting Unavailable Warchol, Raeann Attending Unavailable Warchol, Raeann Admitting Unavailable Warchol, Raeann Primary Care Unavailable Ginny Cuello Admitting Unavailable LaGinny garcia Attending Unavailable Warchol, Raeann Primary Care Unavailable Allergies Allergy Classification Reported Allergen(s) Allergy Type Date of Onset Reaction(s) Facility (10 sources) Citalopram Drug Allergy headaches, upset [facility] Other (1 source) Citalopram Drug Allergy 3 [facility] Repository Medications Current Medications Medication Drug Class(es) Dates Sig (Normalized) Sig (Original) [id number] 200 actuat albuterol 0.09 mg/actuat metered dose [...] 100 mg oral capsule (6 sources) Start: 2021 take 1 capsule by mouth every twenty-four hours Colace 100 MG 1 capsule Orally Once a day Dec, Active 120 actuat fluticasone propionate 0.044 mg/actuat metered dose inhaler (2 sources) Corticosteroid Start: 2022 take 2 puff(s) by inhalation in the morning Flovent HFA 44 MCG/ACT inhaler Inhale 2 puffs in the morning and 2 puffs before bedtime. 0 11/26/2022 Active hydrOXYzine hydrochloride 25 mg oral tablet (9 sources) Antihistamine Start: 2020 hydrOXYzine HCl 25 MG 1 tablet Orally q8-12 hrs prn anxiety Aug, Active lisdexamfetamine dimesylate 30 mg oral capsule (8 sources) Central Nervous System Stimulant Start: 2022 End: 2023 take 1 capsule by mouth once daily Lisdexamfetamine (Vyvanse) 30 mg Capsule Active 30 MG PO Daily March 09, 2023 12:00am MiraLax 17 GM/SCOOP (6 sources) Start: 2021 MiraLax 17 GM/SCOOP 1 capful in 10 oz of water Orally daily Dec, Active Multivitamin preparation (6 sources) take 1 tablet by mouth once daily Multi Vitamin - 1 tablet Orally Once a day Active omeprazole 20 mg delayed release oral capsule (2 sources) Proton Pump Inhibitor Start: 2021 omeprazole (PriLOSEC) [address] capsule 1 (one) time each day at the same time 0 09/15/2022 Active Completed/Discontinued Medications Medication Drug Class(es) Dates Sig (Normalized) Sig (Original) azithromycin 250 mg oral tablet (7 sources) Macrolide Antimicrobial Start: 12-08-2021 Zithromax Z-Rikki 250 MG 2 tablet on the first day, then 1 tablet daily for 4 days Orally Once a day for 5 day(s) Nov, Not-Taking cefTRIAXone (8 sources) Cephalosporin Antibacterial Start: 11-09-2014 Rocephin 500 mg Oct, 1 grm cephalexin 500 mg oral capsule (6 sources) Cephalosporin Antibacterial Start: 01-02-2022 take 1 capsule by mouth every eight hours Cephalexin 500 MG 1 capsule Orally tid for 7 days Dec, Not-Taking escitalopram 10 mg oral tablet (2 sources) Serotonin Reuptake Inhibitor Start: 07-20-2023 End: 10-21-2023 take 1 tablet by mouth at bedtime escitalopram (Lexapro) 10 MG tablet Indications: DORIAN (generalized anxiety disorder) (CMS/HCC) Take 1 tablet (10 mg) by mouth at bedtime. 30 tablet 0 07/20/2023 10/21/2023 Discontinued (Therapy completed) lamoTRIgine 25 mg oral tablet (4 sources) Mood Stabilizer, Anti-epileptic Agent LaMICtal 25 MG 1 tablet Orally Not-Taking lurasidone hydrochloride 40 mg oral tablet (4 sources) Atypical Antipsychotic take 1 tablet by mouth every twenty-four hours Latuda 40 MG 1 tablet with food Orally Once a day Not-Taking (4 sources) Not-Taking 24 hr venlafaxine 37.5 mg extended release oral capsule (5 sources) Serotonin and Norepinephrine Reuptake Inhibitor Start: 10-07-2021 take 1 capsule by mouth every twenty-four [...] unspecified, not intractable, without status migrainosus] Chronic Malaise and fatigue (3 sources) Fatigue; Translations: [...] sensation disturbance; Translations: [Paresthesia of skin] Episodic Other upper respiratory disease (1 source) Nasal congestion; Translations: [Nasal congestion] Onset: 03-30-2024 Episodic Residual codes; unclassified (10 sources) Insomnia; Translations: [Insomnia, unspecified] Episodic Residual codes; unclassified (10 sources) Difficulty sleeping ; Translations: [Sleep disorder, unspecified] Episodic Unclassified (1 source) Acute cough; Translations: [Acute cough] Onset: 03-30-2024 Unclassified (1 source) Encounter for general adult medical examination without abnormal findings; Translations: [Encounter for general adult medical examination without abnormal findings] Onset: 07-20-2023 Past or Other Problems Problem Classification Problem [...] 04-10-2022 Episodic Other aftercare (2 sources) 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 Onset: 09-03-2021 Resolved: 01-02-2022 [...] disorder] Onset: 03-16-2022 Episodic Other upper respiratory infections (1 source) Acute upper respiratory infection, unspecified; Translations: [Acute upper respiratory infection, unspecified] Onset: 08-10-2023 Episodic Spondylosis; intervertebral disc disorders; other back problems (1 source) Dorsalgia, unspecified Onset: 01-02-2022 Resolved: 01-02-2022 Episodic Spontaneous (2 sources) Complete or unspecified spontaneous without complication; Translations: [COMPLETE/UNS SPONT AB W/O COMP] Onset: 09-29-2022 Episodic Results Test Name Value Interpretation Reference Range Facility Quantiferon-TB Plus (Client Incubated)on 04-17-2024 Gamma interferon background IA Qn (Bld) 3.22 International_Unit/mL Invalid Interpretation Code [facility] Comment on above: Performed By: #### 1 [id number] #### [facility] [address] [place] [address] M. tuberculosis stim IFN-g by CD4+ CD8+ T-cells corrected for background Qn (Bld) 0.00 International_Unit/mL Invalid Interpretation Code [facility] Comment on above: Performed By: #### 1 [id number] #### [facility] [address] [place] [address] M. tuberculosis stim IFN-g by CD4+ T-cells corrected for background Qn (Bld) 0.00 International_Unit/mL Invalid Interpretation Code [facility] Comment on above: Performed By: #### 1 [id number] #### [facility] [address] [place] [address] M. tuberculosis stim IFN-g Ql (Bld) [Interp] Negative Invalid Interpretation Code Negative [facility] Comment on above: Result Comment: No r esponse to M tuberculosis antigens detected. Infection with M tuberculosis is unlikely, but high risk individuals should be considered for additional testing (ATS/IDSA/CDC Clinical Practice Guidelines, 2017). The reference range is an Antigen minus Nil result of <0.35 IU/mL. The specimen received for QuantiFERON testing was incubated by the ordering institution. Specific procedures outlined in our Directory of Services and in the package insert for the QuantiFERON Gold (In Tube) test must be followed to enable for proper stimulation of cells for the production of interferon gamma. Chemiluminescence immunoassay methodology Performed at: [employer] [address] [id number] PhD Calvin Milner Performed By: #### 1 [id number] #### [facility] [address] [place] [address] Mitogen stimulated gamma interferon corrected for background Qn (Bld) >10.[address] [facility] Comment on above: Performed By: #### 1 [id number] #### [facility] [address] [place] [address] Service comment (Unsp spec) [Interp] Comment Invalid Interpretation Code [facility] Comment on above: Result Comment: Bairon tiFERON-TB Gold Plus is a qualitative indirect test for M tuberculosis infection (including disease) and is intended for use in conjunction with risk assessment, radiography, and other medical and diagnostic evaluations. The QuantiFERON-TB Gold Plus result is determined by subtracting the Nil value from either TB antigen (Ag) value. The Mitogen tube serves as a control for the test. Performed By: #### 1 [id number] #### [facility] [address] [place] [address] Hep Bs Abon 04-15-2024 HBV surface Ab Ql (S) Reactive Invalid Interpretation Code [facility] Comment on above: Result Comment: Non Reactive: Inconsistent with immunity, less than 10 mIU/mL Reactive: Consistent with immunity, greater than 9.9 mIU/mL Performed at: [email or web address] [address] [id number] PhD Calvin Milner Performed By: #### 2 [id number] #### [facility] [address] [place] [address] Measles/Mumps/Rubella Immuni tyon 04-15-2024 MeV IgG IA Qn (S) 26.7 A unit/mL Invalid Interpretation Code Immune >16.4 [facility] Comment on above: Result Comment: Nega tive <13.5 Equivocal 13.5 - 16.4 Positive >16.4 Presence of antibodies to Rubeola is presumptive evidence of immunity except when acute infection is suspected. Performed By: #### 3 [id number] #### [facility] [address] [place] [address] MuV IgG IA Qn (S) 209.0 A unit/mL Invalid Interpretation Code Immune >10.9 [facility] Comment on above: Result Comment: Nega tive <9.0 Equivocal 9.0 - 10.9 Positive >10.9 A positive result generally indicates past exposure to Mumps virus or previous vaccination. Performed at: [facility] [address] [place], [place] [id number] PhD Calvin Milner Performed By: #### 3 [id number] #### [facility] [address] [place] [address] Rubella virus IgG Qn (S) 4.08 [IU]/mL Invalid Interpretation Code Immune >0.99 [facility] Comment on above: Result Comment: Non- immune <0.90 Equivocal 0.90 - 0.99 Immune >0.99 Performed By: #### 3 [id number] #### [facility] [address] [place] [address] Varic IgGon 04-15-2024 VZV IgG IA Qn (S) 514 Invalid Interpretation Code Immune >165 [facility] Comment on above: Result Comment: Nega tive <135 Equivocal 135 - 165 Positive >165 A positive result generally indicates exposure to the pathogen or administration of specific immunoglobulins, but it is not indication of active infection or stage of disease. Performed at: [facility] [address] [place], [place] [id number] PhD Calvin Milner Performed By: #### 1 [id number] #### [facility] [address] [place] [address] BioFire Detectedon 4 Bio[employer] Detected Detected Critically abnormal Not Detecte [facility] Comment on above: Result Comment: This is a duplicate RP2.1 COVID (PCR) result to be used for statistical tracking purpose only. PERFORMED BY: [facility] [address] [place] [address] PATHOLOGIST SALES PLANNING COORDINATOR SADAF YOUNGBLOOD M.D. Performed By: #### F OL, TSH3, MG, CMP, [id number], LIPID, FE and TIBC, SAKINA, B12, FSH, T4F, CRP #### [facility] [address] [place] [address] [place] COVID-19 Detected/Not Detect edOrdered By: Ginny Cuello on 03-30-2024 SARS-CoV-2 (COVID-19) RNA KYLAH+non-probe Ql (Nph) Detected Abnormal Not Detecte [facility] Comment on above: This is a duplicate RP2.1 COVID (PCR) result to be used for statistical tracking purpose only. Respiratory (Upper) Panel, P CRon 03-30-2024 Respiratory (Upper) Panel, PCR Adenovirus Not detected [...] Not detected Resp. Syncytial Virus Not detected COVID19 Blank Space -- COVID19 Det Results Detected results will only be called to COVID19 Det Results Providers for Inpatients. COVID19 Blank Space -- COVID-19 Detected/Not Detected Detected Blank Space -- FLUA TEST INCLUDES Influenza A tests for the following clinically FLUA TEST INCLUDES significant subtypes: FLUA TEST INCLUDES - Influenza A FLUA TEST INCLUDES - Influenza A H1 FLUA TEST INCLUDES - Influenza A H1 2009 FLUA TEST INCLUDES - Influenza A H3 Blank Space -- PERFORMED BY: [place] [address] PATHOLOGIST SALES PLANNING COORDINATOR ASDAF YOUNGBLOOD M.D. Normal [facility] Comment on above: Performed By: #### F OL, TSH3, MG, CMP, [id number], LIPID, FE and TIBC, SAKINA, B12, FSH, T4F, CRP #### [facility] [address] Respiratory pathogens DNA an d RNA panel - Nasopharynx by KYLAH with non-probe detectionOrdered By: Ginny Cuello on 03-30-2024 Respiratory pathogens DNA and RNA panel KYLAH+non-probe (Nph) [facility] ED Clinical Summaryon 2022 ED Clinical Summary [facility] ? Urgent Care [address] [place] [id number] Clinical Summary PERSON INFORMATION Name: LE ROCHA Age: 23 Years Sex: FEMALE : 2000 MRN: Acct#: Visit Reason: Medical screening exam; OTTERBEIN PHYSICAL Arrival: 09/02/2023 11:23:52 Discharge: 09/02/2023 12:23:00 LOS: 000 01:00 Check In: 09/02/2023 11:23:52 Checkout: 09/02/2023 12:23:00 Address: [address] [place] [address] [place] [address] PCP: Provider, Unlisted PROVIDER INFORMATION Provider Role Assigned Unassigned Jessica Newell RN ED Nurse 09/02/2023 11:28:54 09/02/2023 11:32:29 Tyler [...] verbalizes understanding of instructions given Comment: Normal [facility] ED Patient Summaryon 023 ED Patient Summary [facility] ? Urgent Care [address] [place] [address] PATIENT DISCHARGE INSTRUCTIONS Patient Information Name: LE ROCHA Age: 23 Years Date of : 2000 Reason For Visit: Medical screening exam; OTTERBEIN PHYSICAL Arrival Time: 09/02/2023 11:23:52 Primary Care Physician: Provider, Unlisted Attending Physician: Tyler Armstrong PA-C Comment: Patient Education Medication Information: The exam and treatment you received today in the [facility] Emergency Department were for an urgent problem and are not intended as complete care. It is important for you to follow up with a doctor, nurse practitioner, or physician?s technical administrative assistant for ongoing care. If your [...] so we can reach you if necessary. [facility] Emergency Department has provided you with a complete list of medications post discharge. Please inform your site surveyor/provider of your visit and for further instruction on these medications. Any specific questions regarding your chronic medications and dosages should be discussed with your primary care physician(s) and/or pharmacist. Visit Information Visit Diagnosis: Diagnoses This Visit Medical screening exam ([id number]) If you received any narcotics, sedation, or [...] documents Reason for Visit: Medical Screening Exam. Delta Physical. Allergies: Substance Reaction Symptoms Type Comments [...] for Disease Control and Prevention May 2014 [facility] Urgent Care Note- Provideron 09-02-2023 Urgent Care Note- Provider Patient: LE ROCHA Age: 23 years Sex: FEMALE : 2000 Associated Diagnoses: None Author: Tyler Armstrong PA-C Basic Information Additional information: Chief Complaint from Nursing Triage Note : Chief Complaint 09/02/2023 11:54 EST Chief Complaint Medical Screening Exam. Delta Physical. . History of Present Illness Patient [...] on: 09/02/2023 12:03 EST] Tyler Armstrong PA-C Normal [facility] Urgent Care Recordon 023 Urgent Care Record [facility] ? Urgent Care [address] [place] [address] PATIENT DISCHARGE INSTRUCTIONS Patient Information Name: LE ROCHA Age: 23 Years Date of : 2000 [facility]: [id number] Reason For Visit: Medical screening exam; JULIET PHYSICAL Arrival Time: 09/02/2023 11:23:52 Primary Care Physician: Provider, Unlisted Attending Physician: Tyler Armstrong PA-C Comment: Visit Diagnosis: Diagnoses This Visit Medical screening exam ([id number]) If you received any narcotics, sedation, or [...] and treatment you received today in the [facility] Care were for an urgent problem and are not intended as complete care. It is important for you to follow up with a doctor, nurse practitioner, or physician?s technical administrative assistant for ongoing care. If your [...] so we can reach you if necessary. [facility] Care has provided you with a complete list of medications post discharge. Please inform your site surveyor/provider of your visit and for further instruction [...] Disease Control and Prevention May 2014 Normal [facility] Choriogonadotropin.beta subu nit [Units/volume] in Serum or PlasmaOrdered By: Raeann Ch on 08-19-2023 HCG.beta subunit Qn 0.75 m[IU]/mL [facility] Comment on above: Approximate Approxim ate hCG Gestational Age Range (mIU/ml) (weeks)0.2-1 5-50 1-2 50-500 2-3 100-5,000 3-4 500-10,000 4-5 1,000-50,000 5-6 10,000-100,000 6-8 15,000-200,000 8-12 10,000-100,000 HCG.beta subunit Qn Negative [facility] HCG,Qualitative Serumon 07-23 HCG,Qualitative Serum Negative Normal [facility] Comment on above: Result Comment: PERF ORMED BY: [facility] [address] [place] [address] PATHOLOGIST SALES PLANNING COORDINATOR SADAF YOUNGBLOOD M.D. Performed By: #### F OL, TSH3, MG, CMP, [id number], LIPID, FE and TIBC, SAKINA, B12, FSH, T4F, CRP #### [facility] [address] [place] [address] [facility] HCG,Quantitativeon 3 HCG,Quantitative 0.75 m[iU]/mL Normal [facility] Comment on above: Result Comment: Appr oximate Approximate hCG Gestational Age Range (mIU/ml) (weeks) 0.2-1 5-50 1-2 50-500 2-3 100-5,000 3-4 500-10,000 4-5 1,000-50,000 5-6 10,000-100,000 6-8 15,000-200,000 8-12 10,000-100,000 Performed By: #### F OL, TSH3, MG, CMP, [id number], LIPID, FE and TIBC, SAKINA, B12, FSH, T4F, CRP #### [facility] [address] [place] [address] [facility] CT HAND RIGHT WO IV CONTRAST on [...] Detected Not detected Normal Not Detecte [facility] Comment on above: Result Comment: This is a duplicate RP2.1 COVID (PCR) result to be used for statistical tracking purpose only. PERFORMED BY: [place] [id number] PATHOLOGIST SALES PLANNING COORDINATOR SADAF YOUNGBLOOD M.D. Performed By: #### F OL, TSH3, MG, CMP, [id number], LIPID, FE and TIBC, SAKINA, B12, FSH, T4F, CRP #### [facility] [address] [place] [id number] [facility] COVID-19 Detected/Not Detect edOrdered By: Raeann Ch on 08-10-2023 SARS-CoV-2 (COVID-19) RNA KYLAH+non-probe Ql (Nph) Not detected Not Detecte [facility] Comment on above: This is a duplicate [...] FLUA TEST INCLUDES - Influenza A H1 2008 FLUA TEST INCLUDES - Influenza A H3 Blank Space -- PERFORMED BY: [facility] [address] [place] [address] PATHOLOGIST SALES PLANNING COORDINATOR SADAF YOUNGBLOOD M.D. Normal [facility] Comment on above: Performed By: #### F OL, TSH3, MG, CMP, [id number], LIPID, FE and TIBC, SAKINA, B12, FSH, T4F, CRP #### [facility] [address] Respiratory pathogens DNA an d RNA panel - Nasopharynx by KYLAH with non-probe detectionOrdered By: Raeann Ch on 08-10-2023 Respiratory pathogens DNA and RNA panel KYLAH+non-probe (Nph) [facility] XR HAND 3+ VIEWS RIGHTon XR HAND [...] on 07-20-2023 ALT [Catalytic activity/Vol] 10 U/L Normal 7-52 [facility] Comment on above: Performed By: #### F OL, TSH3, MG, CMP, [id number], LIPID, FE and TIBC, SAKINA, B12, FSH, T4F, CRP #### [facility] [address] Albumin [Mass/volume] in Ser um or Plasma by Bromocresol green (BCG) dye binding methoOrdered By: Raeann Ch on 07-20-2023 Albumin BCG dye [Mass/Vol] 4.5 g/dL 3.5-5.7 [facility] Alkaline phosphatase [Enzyma tic activity/volume] in Serum or PlasmaOrdered By: Raeann Ch on 07-20-2023 ALP [Catalytic activity/Vol] 63 U/L Normal 34-104 [facility] Comment on above: Performed By: #### F OL, TSH3, MG, CMP, [id number], LIPID, FE and TIBC, SAKINA, B12, FSH, T4F, CRP #### [facility] [address] Aspartate aminotransferase [ Enzymatic activity/volume] in Serum or PlasmaOrdered By: Raeann Ch on 07-20-2023 AST [Catalytic activity/Vol] 16 U/L Normal 13-39 [facility] Comment on above: Performed By: #### F OL, TSH3, MG, CMP, [id number], LIPID, FE and TIBC, SAKINA, B12, FSH, T4F, CRP #### [facility] [address] Automated basophil %Ordered By: Raeann Ch on 07-20-2023 Basophils/100 WBC (Bld) 0.3 % Normal . [facility] Comment on above: Performed By: #### F OL, TSH3, MG, CMP, [id number], LIPID, FE and TIBC, SAKINA, B12, FSH, T4F, CRP #### [address] Automated basophil countOrde red By: Raeann Ch on 07-20-2023 Basophils (Bld) [#/Vol] 0.0 10*3/uL Normal 0.0-0.2 [facility] Comment on above: Performed By: #### F OL, TSH3, MG, CMP, [id number], LIPID, FE and TIBC, SAKINA, B12, FSH, T4F, CRP #### [address] Automated blood monocyte cou ntOrdered By: Raeann Ch on 07-20-2023 Monocytes (Bld) [#/Vol] 0.3 10*3/uL Normal 0.0-0.8 [facility] Comment on above: Performed By: #### F OL, TSH3, MG, CMP, [id number], LIPID, FE and TIBC, SAKINA, B12, FSH, T4F, CRP #### [address] Automated eosinophil %Ordere d By: Raeann Ch on 07-20-2023 Eosinophils/100 WBC (Bld) 0.9 % Normal . [facility] Comment on above: Performed By: #### F OL, TSH3, MG, CMP, [id number], LIPID, FE and TIBC, SAKINA, B12, FSH, T4F, CRP #### [facility] [address] Automated eosinophil countOr dered By: Raeann Ch on 07-20-2023 Eosinophils (Bld) [#/Vol] 0.1 10*3/uL Normal 0.0-0.45 [facility] Comment on above: Performed By: #### F OL, TSH3, MG, CMP, [id number], LIPID, FE and TIBC, SAKINA, B12, FSH, T4F, CRP #### [facility] [address] Automated monocyte %Ordered By: Raeann Ch on 07-20-2023 Monocytes/100 WBC (Bld) 4.9 % Normal . [facility] Comment on above: Performed By: #### F OL, TSH3, MG, CMP, [id number], LIPID, FE and TIBC, SAKINA, B12, FSH, T4F, CRP #### [facility] [address] Automated neutrophil %Ordere d By: Raeann Ch on 07-20-2023 Neutrophils/100 WBC (Bld) 70.0 % Normal . [facility] Comment on above: Performed By: #### F OL, TSH3, MG, CMP, [id number], LIPID, FE and TIBC, SAKINA, B12, FSH, T4F, CRP #### [facility] [address] Bilirubin.total [Mass/volume ] in Serum or PlasmaOrdered By: Raeann Ch on 07-20-2023 Bilirubin [Mass/Vol] 1.7 mg/dL High 0.3-1.0 [facility] Comment on above: Samples from patient s who have taken Naproxen have shown spurious elevation in Total Bilirubin levels. A metabolite of Naproxen, O-desmethylnaproxen, has been shown to interfere with the Irisik-Jarek method for measuring Total Bilirubin. Result Comment: Samp les from patients who have taken Naproxen have shown spurious elevation in Total Bilirubin levels. A metabolite of Naproxen, O-desmethylnaproxen, has been shown to interfere with the Oren-Jarek method for measuring Total Bilirubin. Performed By: #### F OL, TSH3, MG, CMP, [id number], LIPID, FE and TIBC, SAKINA, B12, FSH, T4F, CRP #### [facility] [address] C reactive protein [Mass/vol ume] in Serum or PlasmaOrdered By: Raeann Ch on 07-20-2023 CRP [Mass/Vol] 0.8 mg/dL 0.0-0.5 [facility] C-Reactive Proteinon 023 C-Reactive Protein 0.8 mg/dL High 0.0-0.5 [facility] Comment on above: Performed By: #### F OL, TSH3, MG, CMP, [id number], LIPID, FE and TIBC, SAKINA, B12, FSH, T4F, CRP #### [place] [address] [place] Calcium [Mass/volume] in Ser um or PlasmaOrdered By: Raeann Ch on 07-20-2023 Calcium [Mass/Vol] 9.6 mg/dL Normal 8.6-10.3 [facility] Comment on above: Performed By: #### F OL, TSH3, MG, CMP, [id number], LIPID, FE and TIBC, SAKINA, B12, FSH, T4F, CRP #### [place] [address] [place] Carbon dioxide, total [Moles /volume] in Serum or PlasmaOrdered By: Raeann Ch on 07-20-2023 CO2 [Moles/Vol] 26.8 mmol/L Normal 21.0-31.0 [facility] Comment on above: Performed By: #### F OL, TSH3, MG, CMP, [id number], LIPID, FE and TIBC, SAKINA, B12, FSH, T4F, CRP #### [place] [address] [place] Chloride [Moles/volume] in S ulises or PlasmaOrdered By: Raeann Ch on 07-20-2023 Chloride [Moles/Vol] 106 mmol/L Normal 98-107 [facility] Comment on above: Performed By: #### F OL, TSH3, MG, CMP, [id number], LIPID, FE and TIBC, SAKINA, B12, FSH, T4F, CRP #### [facility] [address] Cholesterol [Mass/volume] in Serum or PlasmaOrdered By: Raeann Ch on 07-20-2023 Cholesterol [Mass/Vol] 148 mg/dL Normal 140-200 [facility] Comment on above: Chol less than 200 m g/dl low riskChol 201-239 mg/dl borderline riskChol 240 mg/dl and greater high risk Result Comment: Chol less than 200 mg/dl low risk Chol 201-239 mg/dl borderline risk Chol 240 mg/dl and greater high risk Performed By: #### F OL, TSH3, MG, CMP, [id number], LIPID, FE and TIBC, SAKINA, B12, FSH, T4F, CRP #### [facility] [address] [place] [id number] [facility] Cholesterol in LDL Calc [Mas s/Vol]Ordered By: Raeann Ch on 07-20-2023 Cholesterol in LDL [Mass/Vol] 86 mg/dL 0-100 [facility] Comment on above: LDL ATP III CLASSIFI CATIONLDL less than 100 mg/dL OptimalLDL 100-129 mg/dL Near or above optimalLDL 130-159 mg/dL Borderline highLDL 160-189 mg/dL HighLDL greater than 189 mg/dL Very high Cholesterol in VLDL Calc [Ma ss/Vol]Ordered By: Raeann Ch on 07-20-2023 Cholesterol in VLDL [Mass/Vol] 17 mg/dL [facility] Complete Blood Count Auto Di ffon 07-20-2023 Mean Corpuscular HGB Conc 33.8 g/dL Normal 32.0-35.0 [facility] Comment on above: Performed By: #### F OL, TSH3, MG, CMP, [id number], LIPID, FE and TIBC, SAKINA, B12, FSH, T4F, CRP #### [facility] [address] [place] [address] [facility] NRBC% 0.1 /100{WBC} Normal 0-0.5 [facility] Comment on above: Performed By: #### F OL, TSH3, MG, CMP, [id number], LIPID, FE and TIBC, SAKINA, B12, FSH, T4F, CRP #### [facility] [address] Comprehensive Metabolic Pane maikol 07-20-2023 Albumin [Mass/Vol] 4.5 g/dL Normal 3.5-5.7 [facility] Comment on above: Performed By: #### F OL, TSH3, MG, CMP, [id number], LIPID, FE and TIBC, SAKINA, B12, FSH, T4F, CRP #### [address] GFR/1.73 sq M.predicted MDRD (S/P/Bld) [Vol rate/Area] mL/min/{1.73_m2} Normal [facility] Comment on above: Performed By: #### F OL, TSH3, MG, CMP, [id number], LIPID, FE and TIBC, SAKINA, B12, FSH, T4F, CRP #### [address] Creatinine [Mass/volume] in Serum or PlasmaOrdered By: Raeann Ch on 07-20-2023 Creatinine [Mass/Vol] 0.70 mg/dL Normal 0.60-1.20 [facility] Comment on above: Performed By: #### F OL, TSH3, MG, CMP, [id number], LIPID, FE and TIBC, SAKINA, B12, FSH, T4F, CRP #### [address] Erythrocyte Sedimentation Ra nargis 07-20-2023 ESR (Bld) [Velocity] 15 mm/h Normal 0-19 [facility] Comment on above: Result Comment: PERF ORMED BY: [place] [address] PATHOLOGIST SALES PLANNING COORDINATOR SADAF YOUNGBLOOD M.D. Performed By: #### F OL, TSH3, MG, CMP, [id number], LIPID, FE and TIBC, SAKINA, B12, FSH, T4F, CRP #### [facility] [address] Erythrocyte distribution wid th [Ratio] by Automated countOrdered By: Raeann Ch on 07-20-2023 Erythrocyte distribution width (RBC) [Ratio] 12.3 % Normal 11.9-15.3 [facility] Comment on above: Performed By: #### F OL, TSH3, MG, CMP, [id number], LIPID, FE and TIBC, SAKINA, B12, FSH, T4F, CRP #### [facility] [address] Erythrocyte sedimentation ra te by Photometric methodOrdered By: Raeann Ch on 07-20-2023 ESR Photometric method (Bld) [Velocity] 15 mm/hr 0-19 [facility] Erythrocytes [#/volume] in B lood by Automated countOrdered By: Raeann Ch on 07-20-2023 RBC (Bld) [#/Vol] 4.11 10*6/uL Normal 3.60-5.00 [facility] Comment on above: Performed By: #### F OL, TSH3, MG, CMP, [id number], LIPID, FE and TIBC, SAKINA, B12, FSH, T4F, CRP #### [address] Estradiolon 07-20-2023 Estradiol 126.0 pg/mL Normal . [facility] Comment on above: Result Comment: Adul t Female: Follicular phase 12.5 - 166.0 Ovulation phase 85.8 - 498.0 Luteal phase 43.8 - 211.0 Postmenopausal <6.0 - 54.7 1st trimester 215.0 - >4300.0 Heather ECLIA methodology PERFORMED BY: [place] [address] PATHOLOGIST SALES PLANNING COORDINATOR SADAF YOUNGBLOOD M.D. Performed By: #### F OL, TSH3, MG, CMP, [id number], LIPID, FE and TIBC, SAKINA, B12, FSH, T4F, CRP #### [address] [address] [facility] Ferritin [Mass/volume] in Se rum or PlasmaOrdered By: Raeann Ch on 07-20-2023 Ferritin [Mass/Vol] 20.3 ng/mL Normal 11.0-306.8 [facility] Comment on above: Performed By: #### F OL, TSH3, MG, CMP, [id number], LIPID, FE and TIBC, SAKINA, B12, FSH, T4F, CRP #### [facility] [address] [place] [address] [facility] Folateon 07-20-2023 Folate 10.4 ng/mL Normal >5.9 [facility] Comment on above: Result Comment: Yulia te reference range: >5.9 ng/ml The WHO technical consultation on folate and vitamin b12 deficiencies has determined that folate concentrations less than 4 ng/ml are considered deficient. Performed By: #### F OL, TSH3, MG, CMP, [id number], LIPID, FE and TIBC, SAKINA, B12, FSH, T4F, CRP #### [facility] [address] [place] [id number] [facility] Folate [Mass/volume] in Seru m or PlasmaOrdered By: Raeann Ch on 07-20-2023 Folate [Mass/Vol] 10.4 ng/mL >5.9 [facility] Comment on above: Folate reference ran ge: >5.9 ng/mlThe WHO technical consultation on folate and vitamin [id number] has determined that folate concentrations lessthan 4 ng/ml are considered deficient. Follicle Stimulating Hormone on 07-20-2023 Follicle Stimulating Hormone 2.8 m[iU]/mL Normal [facility] Comment on above: Result Comment: FEMA LE NORMALS (PREMENOPAUSE) MID-FOLLICULAR PHASE: 3.9-8.8 mIU/mL MID-CYCLE PEAK: 4.5-22.5 mIU/mL MID-LUTEAL PHASE: 1.8-5.1 mIU/mL FEMALE NORMALS (POSTMENOPAUSE): 16.7-113.6 mIU/mL MALE NORMALS: 1.3-19.3 mIU/mL Performed By: #### F OL, TSH3, MG, CMP, [id number], LIPID, FE and TIBC, SAKINA, B12, FSH, T4F, CRP #### [facility] [address] Follitropin [Units/volume] i n Serum or PlasmaOrdered By: Raeann Ch on 07-20-2023 Follitropin Qn 2.8 m[IU]/mL [facility] Comment on above: FEMALE NORMALS (FLOWER ENOPAUSE) MID-FOLLICULAR PHASE: 3.9-8.8 mIU/mL MID-CYCLE PEAK: 4.5-22.5 mIU/mL MID-LUTEAL PHASE: 1.8-5.1 mIU/mLFEMALE NORMALS (POSTMENOPAUSE): 16.7-113.6 mIU/mLMALE NORMALS: 1.3-19.3 mIU/mL Free testosterone measuremen t by LC-MS/MSOrdered By: Raeann Ch on 07-20-2023 Testosterone Free [Mass/Vol] 1.5 pg/mL 0.0-4.2 [facility] Comment on above: Performed at: [address] [id number] Director: Alf Simpson PhD, Phone: [phone] at: - [facility] [address] [id number] Director: Jayne Mann MD, Phone: [phone] Glucose [Mass/volume] in Ser um or PlasmaOrdered By: Raeann Ch on 07-20-2023 Glucose [Mass/Vol] 76 mg/dL Normal 70-100 [facility] Comment on above: ADA recommended refe rence rangeRandom Glucose Reference Range is dependent on time and content of last meal. Glucose of more than 200 mg/dL in a nonstressed, ambulatory subject supports the diagnosis of Diabetes Mellitus. Result Comment: [place] om Glucose Reference Range is dependent on time and content of last meal. Glucose of more than 200 mg/dL in a nonstressed, ambulatory subject supports the diagnosis of Diabetes Mellitus. ADA recommended reference range Performed By: #### F OL, TSH3, MG, CMP, [id number], LIPID, FE and TIBC, SAKINA, B12, FSH, T4F, CRP #### [address] Hematocrit [Volume Fraction] of Blood by Automated countOrdered By: Raeann Ch on 07-20-2023 Hematocrit (Bld) [Volume fraction] 37.1 % Normal 34.0-46.4 [facility] Comment on above: Performed By: #### F OL, TSH3, MG, CMP, [id number], LIPID, FE and TIBC, SAKINA, B12, FSH, T4F, CRP #### [address] Hemoglobin [Mass/volume] in BloodOrdered By: Raeann Ch on 07-20-2023 Hemoglobin (Bld) [Mass/Vol] 12.5 g/dL Normal 11.8-15.4 [facility] Comment on above: Performed By: #### F OL, TSH3, MG, CMP, [id number], LIPID, FE and TIBC, SAKINA, B12, FSH, T4F, CRP #### [address] Insulinon 07-20-2023 Insulin 8.2 u[iU]/mL Normal 2.6-24.9 [facility] Comment on above: Result Comment: Perf ormed at: - [facility] [address] [id number] Perinatal Technician: Alf Simpson PhD, Phone: [phone] Performed By: #### F OL, TSH3, MG, CMP, [id number], LIPID, FE and TIBC, SAKINA, B12, FSH, T4F, CRP #### [address] Iron [Mass/volume] in Serum or PlasmaOrdered By: Raeann Ch on 07-20-2023 Iron [Mass/Vol] 122 ug/dL Normal 50-212 [facility] Comment on above: Performed By: #### F OL, TSH3, MG, CMP, [id number], LIPID, FE and TIBC, SAKINA, B12, FSH, T4F, CRP #### [address] Iron and TIBC Profileon 06-22 % Iron Saturation 28.6 % Normal 20-50 [facility] Comment on above: Performed By: #### F OL, TSH3, MG, CMP, [id number], LIPID, FE and TIBC, SAKINA, B12, FSH, T4F, CRP #### [facility] [address] [place] [address] [facility] Total Iron Binding Capacity 427 ug/dL Normal 255-450 [facility] Comment on above: Performed By: #### F OL, TSH3, MG, CMP, [id number], LIPID, FE and TIBC, SAKINA, B12, FSH, T4F, CRP #### [facility] [address] [place] [address] [facility] Iron binding capacity [Mass/ volume] in Serum or PlasmaOrdered By: Raeann Ch on 07-20-2023 Iron binding capacity [Mass/Vol] 427 ug/dL 255-450 [facility] Iron saturation [Mass Fracti on] in Serum or PlasmaOrdered By: Raeann Ch on 07-20-2023 Iron saturation [Mass fraction] 28.6 % 20-50 [facility] Leukocytes [#/volume] correc paulie for nucleated erythrocytes in Blood by Automated counOrdered By: Raeann Ch on 07-20-2023 WBC corrected for nucl RBC Auto (Bld) [#/Vol] 6.7 10*3/uL 3.8-11.6 [facility] Leukocytes [#/volume] in Blo od by Automated countOrdered By: Raeann Ch on 07-20-2023 WBC (Bld) [#/Vol] 6.7 10*3/uL Normal 3.8-11.6 [facility] Comment on above: Performed By: #### F OL, TSH3, MG, CMP, [id number], LIPID, FE and TIBC, SAKINA, B12, FSH, T4F, CRP #### [facility] [address] [place] [address] [facility] Lipid Panelon 07-20-2023 LDL Cholesterol,Calculated 86 mg/dL Normal 0-100 [facility] Comment on above: Result Comment: LDL ATP III CLASSIFICATION LDL less than 100 mg/dL Optimal LDL 100-129 mg/dL Near or above optimal LDL 130-159 mg/dL Borderline high LDL 160-189 mg/dL High LDL greater than 189 mg/dL Very high Performed By: #### F OL, TSH3, MG, CMP, [id number], LIPID, FE and TIBC, SAKINA, B12, FSH, T4F, CRP #### [facility] [address] Triglyceride w/Reflex 85 mg/dL Normal 0-149 [facility] Comment on above: Result Comment: TRIG ATP III CLASSIFICATION TRIG less than 150 mg/dL Normal TRIG 150-199 mg/dL Borderline high TRIG 200-500 mg/dL High TRIG greater than 500 mg/dL Very high Standard traceable to the Center for Disease Conrtrol and Prevention (CDC) test method. Performed By: #### F OL, TSH3, MG, CMP, [id number], LIPID, FE and TIBC, SAKINA, B12, FSH, T4F, CRP #### [facility] [address] VLDL CHOLESTEROL 17 mg/dL Normal [facility] Comment on above: Performed By: #### F OL, TSH3, MG, CMP, [id number], LIPID, FE and TIBC, SAKINA, B12, FSH, T4F, CRP #### [facility] [address] Luteinizing Hormoneon 2022 Luteinizing Hormone 5.5 m[iU]/mL Normal . [facility] Comment on above: Result Comment: Adul t Female: Follicular phase 2.4 - 12.6 Ovulation phase 14.0 - 95.6 Luteal phase 1.0 - 11.4 Postmenopausal 7.7 - 58.5 Performed By: #### F OL, TSH3, MG, CMP, [id number], LIPID, FE and TIBC, SAKINA, B12, FSH, T4F, CRP #### [facility] [address] Lymphocytes [#/volume] in Bl ood by Automated countOrdered By: Raeann Ch on 07-20-2023 Lymphocytes (Bld) [#/Vol] 1.6 10*3/uL Normal 1.00-4.8 [facility] Comment on above: Performed By: #### F OL, TSH3, MG, CMP, [id number], LIPID, FE and TIBC, SAKINA, B12, FSH, T4F, CRP #### [facility] [address] Lymphocytes/100 leukocytes i n Blood by Automated countOrdered By: Raeann Ch on 07-20-2023 Lymphocytes/100 WBC (Bld) 23.9 % Normal . [facility] Comment on above: Performed By: #### F OL, TSH3, MG, CMP, [id number], LIPID, FE and TIBC, SAKINA, B12, FSH, T4F, CRP #### [facility] [address] MCH [Entitic mass] by Automa paulie countOrdered By: Raeann Ch on 07-20-2023 MCH (RBC) [Entitic mass] 30.5 pg Normal 24.7-34.3 [facility] Comment on above: Performed By: #### F OL, TSH3, MG, CMP, [id number], LIPID, FE and TIBC, SAKINA, B12, FSH, T4F, CRP #### [facility] [address] MCHC Auto (RBC) [Mass/Vol]Or dered By: Raeann Ch on 07-20-2023 MCHC (RBC) [Mass/Vol] 33.8 g/dL 32.0-35.0 [facility] MCV [Entitic volume] by Auto mated countOrdered By: Raeann Ch on 07-20-2023 MCV (RBC) [Entitic vol] 90.1 fL Normal 80-100 [facility] Comment on above: Performed By: #### F OL, TSH3, MG, CMP, [id number], LIPID, FE and TIBC, SAKINA, B12, FSH, T4F, CRP #### [facility] [address] Magnesium [Mass/volume] in S ulises or PlasmaOrdered By: Raeann Ch on 07-20-2023 Magnesium [Mass/Vol] 1.9 mg/dL Normal 1.9-2.7 [facility] Comment on above: Performed By: #### F OL, TSH3, MG, CMP, [id number], LIPID, FE and TIBC, SAKINA, B12, FSH, T4F, CRP #### [facility] [address] Neutrophils [#/volume] in Bl ood by Automated countOrdered By: Raeann Ch on 07-20-2023 Neutrophils (Bld) [#/Vol] 4.7 10*3/uL Normal 1.8-7.7 [facility] Comment on above: Performed By: #### F OL, TSH3, MG, CMP, [id number], LIPID, FE and TIBC, SAKINA, B12, FSH, T4F, CRP #### [facility] [address] No Panel InformationOrdered By: Raeann Ch on 07-20-2023 Estimated GFR (CKD-EPI) > 60.0 mL/Min [facility] Creatinine Clearance (Chem N/A [facility] Nucleated erythrocytes [Pres ence] in Blood by Automated countOrdered By: Raeann Ch on 07-20-2023 Nucleated RBC Auto Ql (Bld) 0.1 /100{WBC} 0-0.5 [facility] Platelet mean volume [Entiti c volume] in Blood by Automated countOrdered By: Raeann Ch on 07-20-2023 Platelet mean volume (Bld) [Entitic vol] 8.8 fL Normal 6.3-10.7 [facility] Comment on above: Performed By: #### F OL, TSH3, MG, CMP, [id number], LIPID, FE and TIBC, SAKINA, B12, FSH, T4F, CRP #### [facility] [address] Platelets [#/volume] in Bloo d by Automated countOrdered By: Raeann Ch on 07-20-2023 Platelets (Bld) [#/Vol] 344 10*3/uL Normal 150-450 [facility] Comment on above: Performed By: #### F OL, TSH3, MG, CMP, [id number], LIPID, FE and TIBC, SAKINA, B12, FSH, T4F, CRP #### [facility] [address] Potassium [Moles/volume] in Serum or PlasmaOrdered By: Raeann Ch on 07-20-2023 Potassium [Moles/Vol] 4.2 mmol/L Normal 3.5-5.1 [facility] Comment on above: Performed By: #### F OL, TSH3, MG, CMP, [id number], LIPID, FE and TIBC, SAKINA, B12, FSH, T4F, CRP #### [facility] [address] [place] [address] [facility] Progesteroneon 07-20-2023 Progesterone 13.5 ng/mL Normal . [facility] Comment on above: Result Comment: Foll icular phase 0.1 - 0.9 Luteal phase 1.8 - 23.9 Ovulation phase 0.1 - 12.0 First trimester 11.0 - 44.3 Second trimester 25.4 - 83.3 Third trimester 58.7 - 214.0 Postmenopausal 0.0 - 0.1 Performed at: [facility] [place] [id number] Perinatal Technician: Alf Simpson PhD, Phone: [phone] Performed By: #### F OL, TSH3, MG, CMP, [id number], LIPID, FE and TIBC, SAKINA, B12, FSH, T4F, CRP #### [facility] [address] [place] [id number] [facility] Protein [Mass/volume] in Ser um or PlasmaOrdered By: Raeann Ch on 07-20-2023 Protein [Mass/Vol] 7.0 g/dL Normal 6.4-8.9 [facility] Comment on above: Performed By: #### F OL, TSH3, MG, CMP, [id number], LIPID, FE and TIBC, SAKINA, B12, FSH, T4F, CRP #### [facility] [address] [place] [id number] [facility] Serum globulin measurement b y calculation (mass/volume)Ordered By: Raeann Ch on 07-20-2023 Globulin (S) [Mass/Vol] 2.5 g/dL Normal [facility] Comment on above: Performed By: #### F OL, TSH3, MG, CMP, [id number], LIPID, FE and TIBC, SAKINA, B12, FSH, T4F, CRP #### [facility] [address] Serum or plasma albumin/glob ulin mass ratioOrdered By: Raeann Ch on 07-20-2023 Albumin/Globulin [Mass ratio] 1.8 {ratio} Normal [facility] Comment on above: Performed By: #### F OL, TSH3, MG, CMP, [id number], LIPID, FE and TIBC, SAKINA, B12, FSH, T4F, CRP #### [facility] [address] Serum or plasma anion gap de terminationOrdered By: Raeann Ch on 07-20-2023 Anion gap [Moles/Vol] 11.4 mmol/L Normal 6.0-15.0 [facility] Comment on above: Performed By: #### F OL, TSH3, MG, CMP, [id number], LIPID, FE and TIBC, SAKINA, B12, FSH, T4F, CRP #### [facility] [address] Serum or plasma estradiol (E 2) measurement (mass/volume)Ordered By: Raeann Ch on 07-20-2023 E2 [Mass/Vol] 126.0 pg/mL . [facility] Comment on above: Adult Female: Follic ular phase 12.5 - 166.0 Ovulation phase 85.8 - 498.0 Luteal phase 43.8 - 211.0 Postmenopausal <6.0 - 54.7 1st trimester 215.0 - >4300.0Roche ECLIA methodology Serum or plasma high density lipoprotein (HDL) cholesterol measurementOrdered By: Raeann Ch on 07-20-2023 Cholesterol in HDL [Mass/Vol] 45 mg/dL Normal 23-92 [facility] Comment on above: HDL CHOL ATP-III CLA SSIFICATION Cardiovascular RiskHDL > or equal to 60 mg/dL LOWHDL < 40 mg/dL HIGH Result Comment: HDL CHOL ATP-III CLASSIFICATION Cardiovascular Risk HDL > or equal to 60 mg/dL LOW HDL < 40 mg/dL HIGH Performed By: #### F OL, TSH3, MG, CMP, [id number], LIPID, FE and TIBC, SAKINA, B12, FSH, T4F, CRP #### [facility] [address] Serum or plasma insulin michael urement (units/volume)Ordered By: Raeann Ch on 07-20-2023 Insulin Qn 8.2 u[iU]/mL 2.6-24.9 [facility] Comment on above: Performed at: - [facility] [address] [id number] Director: Alf Simpson PhD, Phone: [phone] Serum or plasma lutropin mandeep surement (units/volume)Ordered By: Raeann Ch on 07-20-2023 Lutropin Qn 5.5 m[IU]/mL . [facility] Comment on above: Adult Female: Follic ular phase 2.4 - 12.6 Ovulation phase 14.0 - 95.6 Luteal phase 1.0 - 11.4 Postmenopausal 7.7 - 58.5 Serum or plasma progesterone measurement (mass/volume)Ordered By: Raeann Ch on 07-20-2023 Progesterone [Mass/Vol] 13.5 ng/mL . [facility] Comment on above: Follicular phase 0.1 - 0.9 Luteal phase 1.8 - 23.9 Ovulation phase 0.1 - 12.0 First trimester 11.0 - 44.3 Second trimester 25.4 - 83.3 Third trimester 58.7 - 214.0 Postmenopausal 0.0 - 0.1Performed at: CB - [facility] [address] [id number] Director: Alf Simpson PhD, Phone: [phone] Serum or plasma total choles terol/high density lipoprotein (HDL) cholesterol mass ratOrdered By: Raeann Ch on 07-20-2023 Cholesterol.total/Choles terol in HDL [Mass ratio] 3.3 {ratio} Normal <5.0 [facility] Comment on above: Performed By: #### F OL, TSH3, MG, CMP, [id number], LIPID, FE and TIBC, SAKINA, B12, FSH, T4F, CRP #### [facility] [address] Sodium [Moles/volume] in Ser um or PlasmaOrdered By: Raeann Ch on 07-20-2023 Sodium [Moles/Vol] 140 mmol/L Normal 136-145 [facility] Comment on above: Performed By: #### F OL, TSH3, MG, CMP, [id number], LIPID, FE and TIBC, SAKINA, B12, FSH, T4F, CRP #### [facility] [address] Testosterone Free TotalOrder ed By: Raeann Ch on 07-20-2023 Testosterone [Mass/Vol] 25 ng/dL Normal 13-71 [facility] Comment on above: Performed By: #### F OL, TSH3, MG, CMP, [id number], LIPID, FE and TIBC, SAKINA, B12, FSH, T4F, CRP #### [facility] [address] Testosterone Free Totalon Testosterone,Free 1.5 pg/mL Normal 0.0-4.2 [facility] Comment on above: Result Comment: Perf ormed at: - [facility] [address] [id number] Perinatal Technician: Alf Simpson PhD, Phone: [phone] Performed at: - [facility] [address] [id number] Perinatal Technician: Jayne Mann MD, Phone: [phone] Performed By: #### F OL, TSH3, MG, CMP, [id number], LIPID, FE and TIBC, SAKINA, B12, FSH, T4F, CRP #### [address] Thyrotropin [Units/volume] i n Serum or PlasmaOrdered By: Raeann Ch on 07-20-2023 TSH Qn 1.01 m[IU]/L Normal 0.45-5.33 [facility] Comment on above: Performed By: #### F OL, TSH3, MG, CMP, [id number], LIPID, FE and TIBC, SAKINA, B12, FSH, T4F, CRP #### [facility] [address] Thyroxine (T4) free [Mass/vo lume] in Serum or PlasmaOrdered By: Raeann Laine on 07-20-2023 Free T4 [Mass/Vol] 0.92 ng/dL Normal 0.61-1.12 [facility] Comment on above: Performed By: #### F OL, TSH3, MG, CMP, [id number], LIPID, FE and TIBC, SAKINA, B12, FSH, T4F, CRP #### [facility] [address] Transferrin [Mass/volume] in Serum or PlasmaOrdered By: Raeann Ch on 07-20-2023 Transferrin [Mass/Vol] 305 mg/dL Normal 203-362 [facility] Comment on above: Performed By: #### F OL, TSH3, MG, CMP, [id number], LIPID, FE and TIBC, SAKINA, B12, FSH, T4F, CRP #### [facility] [address] Triglyceride [Mass/volume] i n Serum or PlasmaOrdered By: Raeann Ch on 07-20-2023 Triglyceride [Mass/Vol] 85 mg/dL 0-149 [facility] Comment on above: TRIG ATP III CLASSIF ICATIONTRIG less than 150 mg/dL NormalTRIG 150-199 mg/dL Borderline highTRIG 200-500 mg/dL High TRIG greater than 500 mg/dL Very highStandard traceable to the Center for Disease Conrtrol and Prevention (CDC) test method. Triiodothyronine (T3) Freeon 07-20-2023 Triiodothyronine (T3) Free 4.11 pg/mL High 2.50-3.90 [facility] Comment on above: Result Comment: PERF ORMED BY: [place] [address] PATHOLOGIST SALES PLANNING COORDINATOR SADAF YOUNGBLOOD M.D. Performed By: #### F OL, TSH3, MG, CMP, [id number], LIPID, FE and TIBC, SAKINA, B12, FSH, T4F, CRP #### [facility] [address] Triiodothyronine (T3) Free [ Mass/volume] in Serum or PlasmaOrdered By: Raeann Ch on 07-20-2023 Free T3 [Mass/Vol] 4.11 pg/mL 2.50-3.90 [facility] Urea nitrogen [Mass/volume] in Serum or PlasmaOrdered By: Raeann Brianrohith on 07-20-2023 Urea nitrogen [Mass/Vol] 8 mg/dL Normal 7-25 [facility] Comment on above: Performed By: #### F OL, TSH3, MG, CMP, [id number], LIPID, FE and TIBC, SAKINA, B12, FSH, T4F, CRP #### [facility] [address] [place] [address] Vitamin B12 ser/plasOrdered By: Raeann Brianrohith on 07-20-2023 Cobalamin (Vitamin B12) [Mass/Vol] 384 pg/mL Normal 180-914 [facility] Comment on above: Performed By: #### F OL, TSH3, MG, CMP, [id number], LIPID, FE and TIBC, SAKINA, B12, FSH, T4F, CRP #### [facility] [address] [place] [address] Vitamin D 25 Hydroxy Totalon 07-20-2023 Vitamin D 25 Hydroxy Total 49.5 ng/mL Normal 30-100 [facility] Comment on above: Result Comment: NATALIE MIN D STATUS 25(OH)VITAMIN D RANGE (ng/mL) Deficient <20 Insufficient 20 to <30 Sufficient 30 to 100 Reference: Ambar MF,Manish NC, Donis BASHIR, et al. Evaluation,treatment, and prevention of vitamin D deficiency; an Endocrine Society clinical practice guideline. JCEM. 2010; 96(7):1911-30. PERFORMED BY: [place] [address] PATHOLOGIST SALES PLANNING COORDINATOR SADAF YOUNGBLOOD M.D. Performed By: #### F OL, TSH3, MG, CMP, [id number], LIPID, FE and TIBC, SAKINA, B12, FSH, T4F, CRP #### [facility] [address] Vitamin D+Metabolites [Mass/ volume] in Serum or PlasmaOrdered By: Raeann Ch on 07-20-2023 Vitamin D+Metabolites [Mass/Vol] 49.5 ng/mL 30-100 [facility] Comment on above: VITAMIN D STATUS 25( [place])VITAMIN D RANGE (ng/mL) Deficient <20 Insufficient 20 to <30Sufficient 30 to 100Reference: Ambar MF,Manish MARTINEZ, Donis BASHIR, et al. Evaluation,treatment, and prevention of vitamin D deficiency; an Endocrine Society clinical practice guideline. JCEM. 2010; 96(7):1911-30. A1C with Estimated Average G [email or web address] 05-27-2023 Glucose [Mass/Vol] 94 mg/dL Normal [facility] Comment on above: Order Comment: Reaso n for Exam Chronic fatigue;Hypoglycemia Result Comment: PERF ORMED BY: [place] [address] PATHOLOGIST SALES PLANNING COORDINATOR SADAF YOUNGBLOOD M.D. Performed By: #### F OL, TSH3, MG, CMP, [id number], LIPID, FE and TIBC, SAKINA, B12, FSH, T4F, CRP #### [place] [id number] [facility] Alanine aminotransferase [En zymatic activity/volume] in Serum or PlasmaOrdered By: Tiarra Childs on 05-27-2023 ALT [Catalytic activity/Vol] 10 U/L Normal 7-52 [facility] Comment on above: Order Comment: Reaso n for Exam Miscarriage Reason for Exam Chronic fatigue Reason for Exam Chronic fatigue;Hypoglycemia Performed By: #### F OL, TSH3, MG, CMP, [id number], LIPID, FE and TIBC, SAKINA, B12, FSH, T4F, CRP #### [place] [id number] [facility] Albumin [Mass/volume] in Ser um or Plasma by Bromocresol green (BCG) dye binding methoOrdered By: Tiarra Childs on 05-27-2023 Albumin BCG dye [Mass/Vol] 4.4 g/dL 3.5-5.7 [facility] Alkaline phosphatase [Enzyma tic activity/volume] in Serum or PlasmaOrdered By: Tiarra Childs on 05-27-2023 ALP [Catalytic activity/Vol] 53 U/L Normal 34-104 [facility] Comment on above: Order Comment: Reaso n for Exam Miscarriage Reason for Exam Chronic fatigue Reason for Exam Chronic fatigue;Hypoglycemia Performed By: #### F OL, TSH3, MG, CMP, [id number], LIPID, FE and TIBC, SAKINA, B12, FSH, T4F, CRP #### [facility] [address] Aspartate aminotransferase [ Enzymatic activity/volume] in Serum or PlasmaOrdered By: Tiarra Childs on 05-27-2023 AST [Catalytic activity/Vol] 20 U/L Normal 13-39 [facility] Comment on above: Order Comment: Reaso n for Exam Miscarriage Reason for Exam Chronic fatigue Reason for Exam Chronic fatigue;Hypoglycemia Performed By: #### F OL, TSH3, MG, CMP, [id number], LIPID, FE and TIBC, SAKINA, B12, FSH, T4F, CRP #### [facility] [address] Automated basophil %Ordered By: Tiarra Childs on 05-27-2023 Basophils/100 WBC (Bld) 0.5 % Normal . [facility] Comment on above: Order Comment: Reaso n for Exam Miscarriage Performed By: #### F OL, TSH3, MG, CMP, [id number], LIPID, FE and TIBC, SAKINA, B12, FSH, T4F, CRP #### [facility] [address] Automated basophil countOrde red By: Tiarra Childs on 05-27-2023 Basophils (Bld) [#/Vol] 0.0 10*3/uL Normal 0.0-0.2 [facility] Comment on above: Order Comment: Reaso n for Exam Miscarriage Result Comment: PERF ORMED BY: [address] [place] [address] PATHOLOGIST SALES PLANNING COORDINATOR SADAF YOUNGBLOOD M.D. Performed By: #### F OL, TSH3, MG, CMP, [id number], LIPID, FE and TIBC, SAKINA, B12, FSH, T4F, CRP #### [facility] [address] Automated blood monocyte cou ntOrdered By: Tiarra Childs on 05-27-2023 Monocytes (Bld) [#/Vol] 0.4 10*3/uL Normal 0.0-0.8 [facility] Comment on above: Order Comment: Reaso n for Exam Miscarriage Performed By: #### F OL, TSH3, MG, CMP, [id number], LIPID, FE and TIBC, SAKINA, B12, FSH, T4F, CRP #### [facility] [address] Automated eosinophil %Ordere d By: Tiarra Childs on 05-27-2023 Eosinophils/100 WBC (Bld) 1.5 % Normal . [facility] Comment on above: Order Comment: Reaso n for Exam Miscarriage Performed By: #### F OL, TSH3, MG, CMP, [id number], LIPID, FE and TIBC, SAKINA, B12, FSH, T4F, CRP #### [facility] [address] Automated eosinophil countOr dered By: Tiarra Childs on 05-27-2023 Eosinophils (Bld) [#/Vol] 0.1 10*3/uL Normal 0.0-0.45 [facility] Comment on above: Order Comment: Reaso n for Exam Miscarriage Performed By: #### F OL, TSH3, MG, CMP, [id number], LIPID, FE and TIBC, SAKINA, B12, FSH, T4F, CRP #### [facility] [address] Automated monocyte %Ordered By: Tiarra Childs on 05-27-2023 Monocytes/100 WBC (Bld) 6.7 % Normal . [facility] Comment on above: Order Comment: Reaso n for Exam Miscarriage Performed By: #### F OL, TSH3, MG, CMP, [id number], LIPID, FE and TIBC, SAKINA, B12, FSH, T4F, CRP #### [facility] [address] [place] [id number] [facility] Automated neutrophil %Ordere d By: Tiarra Childs on 05-27-2023 Neutrophils/100 WBC (Bld) 62.1 % Normal . [facility] Comment on above: Order Comment: Reaso n for Exam Miscarriage Performed By: #### F OL, TSH3, MG, CMP, [id number], LIPID, FE and TIBC, SAKINA, B12, FSH, T4F, CRP #### [facility] [address] [place] [address] [facility] Bilirubin.total [Mass/volume ] in Serum or PlasmaOrdered By: Tiarra Childs on 05-27-2023 Bilirubin [Mass/Vol] 1.5 mg/dL High 0.3-1.0 [facility] Comment on above: Samples from patient s who have taken Naproxen have shown spurious elevation in Total Bilirubin levels. A metabolite of Naproxen, O-desmethylnaproxen, has been shown to interfere with the Jendrassik-Grof method for measuring Total Bilirubin. Order Comment: Reaso n for Exam Miscarriage Reason for Exam Chronic fatigue Reason for Exam Chronic fatigue;Hypoglycemia Result Comment: Samp les from patients who have taken Naproxen have shown spurious elevation in Total Bilirubin levels. A metabolite of Naproxen, O-desmethylnaproxen, has been shown to interfere with the Jendrassik-Grof method for measuring Total Bilirubin. Performed By: #### F OL, TSH3, MG, CMP, [id number], LIPID, FE and TIBC, SAKINA, B12, FSH, T4F, CRP #### [facility] [address] [place] [address] [facility] Calcium [Mass/volume] in Ser um or PlasmaOrdered By: Tiarra Childs on 05-27-2023 Calcium [Mass/Vol] 10.0 mg/dL Normal 8.6-10.3 [facility] Comment on above: Order Comment: Reaso n for Exam Miscarriage Reason for Exam Chronic fatigue Reason for Exam Chronic fatigue;Hypoglycemia Performed By: #### F OL, TSH3, MG, CMP, [id number], LIPID, FE and TIBC, SAKINA, B12, FSH, T4F, CRP #### [facility] [address] Carbon dioxide, total [Moles /volume] in Serum or PlasmaOrdered By: Tiarra Childs on 05-27-2023 CO2 [Moles/Vol] 27.0 mmol/L Normal 21.0-31.0 [facility] Comment on above: Order Comment: Reaso n for Exam Miscarriage Reason for Exam Chronic fatigue Reason for Exam Chronic fatigue;Hypoglycemia Performed By: #### F OL, TSH3, MG, CMP, [id number], LIPID, FE and TIBC, SAKINA, B12, FSH, T4F, CRP #### [facility] [address] Chloride [Moles/volume] in S ulises or PlasmaOrdered By: Tiarra Childs on 05-27-2023 Chloride [Moles/Vol] 104 mmol/L Normal 98-107 [facility] Comment on above: Order Comment: Reaso n for Exam Miscarriage Reason for Exam Chronic fatigue Reason for Exam Chronic fatigue;Hypoglycemia Performed By: #### F OL, TSH3, MG, CMP, [id number], LIPID, FE and TIBC, SAKINA, B12, FSH, T4F, CRP #### [facility] [address] Choriogonadotropin.beta subu nit [Units/volume] in Serum or PlasmaOrdered By: Tiarra Childs on 05-27-2023 HCG.beta subunit Qn 400.13 m[IU]/mL [facility] Comment on above: Approximate Approxim ate hCG Gestational Age Range (mIU/ml) (weeks)0.2-1 5-50 1-2 50-500 2-3 100-5,000 3-4 500-10,000 4-5 1,000-50,000 5-6 10,000-100,000 6-8 15,000-200,000 8-12 10,000-100,000 Complete Blood Count Auto Di ffon 05-27-2023 Mean Corpuscular HGB Conc 34.9 g/dL Normal 32.0-35.0 [facility] Comment on above: Order Comment: Reaso n for Exam Miscarriage Performed By: #### F OL, TSH3, MG, CMP, [id number], LIPID, FE and TIBC, SAKINA, B12, FSH, T4F, CRP #### [facility] [address] NRBC% 0.1 /100{WBC} Normal 0-0.5 [facility] Comment on above: Order Comment: Reaso n for Exam Miscarriage Performed By: #### F OL, TSH3, MG, CMP, [id number], LIPID, FE and TIBC, SAKINA, B12, FSH, T4F, CRP #### [facility] [address] Comprehensive Metabolic Pane maikol 05-27-2023 Albumin [Mass/Vol] 4.4 g/dL Normal 3.5-5.7 [facility] Comment on above: Order Comment: Reaso n for Exam Miscarriage Reason for Exam Chronic fatigue Reason for Exam Chronic fatigue;Hypoglycemia Performed By: #### F OL, TSH3, MG, CMP, [id number], LIPID, FE and TIBC, SAKINA, B12, FSH, T4F, CRP #### [facility] [address] GFR/1.73 sq M.predicted MDRD (S/P/Bld) [Vol rate/Area] mL/min/{1.73_m2} Normal [facility] Comment on above: Order Comment: Reaso n for Exam Miscarriage Reason for Exam Chronic fatigue Reason for Exam Chronic fatigue;Hypoglycemia Performed By: #### F OL, TSH3, MG, CMP, [id number], LIPID, FE and TIBC, SAKINA, B12, FSH, T4F, CRP #### [facility] [address] Creatinine [Mass/volume] in Serum or PlasmaOrdered By: Tiarra Childs on 05-27-2023 Creatinine [Mass/Vol] 0.74 mg/dL Normal 0.60-1.20 [facility] Comment on above: Order Comment: Reaso n for Exam Miscarriage Reason for Exam Chronic fatigue Reason for Exam Chronic fatigue;Hypoglycemia Performed By: #### F OL, TSH3, MG, CMP, [id number], LIPID, FE and TIBC, SAKINA, B12, FSH, T4F, CRP #### [facility] [address] Erythrocyte distribution wid th [Ratio] by Automated countOrdered By: Tiarra Childs on 05-27-2023 Erythrocyte distribution width (RBC) [Ratio] 13.2 % Normal 11.9-15.3 [facility] Comment on above: Order Comment: Reaso n for Exam Miscarriage Performed By: #### F OL, TSH3, MG, CMP, [id number], LIPID, FE and TIBC, SAKINA, B12, FSH, T4F, CRP #### [facility] [address] Erythrocytes [#/volume] in B lood by Automated countOrdered By: Tiarra Childs on 05-27-2023 RBC (Bld) [#/Vol] 4.15 10*6/uL Normal 3.60-5.00 [facility] Comment on above: Order Comment: Reaso n for Exam Miscarriage Performed By: #### F OL, TSH3, MG, CMP, [id number], LIPID, FE and TIBC, SAKINA, B12, FSH, T4F, CRP #### [facility] [address] Ferritin [Mass/volume] in Se rum or PlasmaOrdered By: Tiarra Childs on 05-27-2023 Ferritin [Mass/Vol] 10.1 ng/mL Low 11.0-306.8 [facility] Comment on above: Order Comment: Reaso n for Exam Miscarriage Reason for Exam Chronic fatigue Reason for Exam Chronic fatigue;Hypoglycemia Performed By: #### F OL, TSH3, MG, CMP, [id number], LIPID, FE and TIBC, SAKINA, B12, FSH, T4F, CRP #### [facility] [address] Folate [Mass/volume] in Seru m or PlasmaOrdered By: Tiarra Childs on 05-27-2023 Folate [Mass/Vol] 16.2 ng/mL >5.9 [facility] Comment on above: Folate reference ran ge: >5.9 ng/mlThe WHO technical consultation on folate and vitamin [id number] has determined that folate concentrations lessthan 4 ng/ml are considered deficient. Glucose [Mass/volume] in Ser um or PlasmaOrdered By: Tiarra Childs on 05-27-2023 Glucose [Mass/Vol] 73 mg/dL Normal 70-100 [facility] Comment on above: ADA recommended refe rence rangeRandom Glucose Reference Range is dependent on time and content of last meal. Glucose of more than 200 mg/dL in a nonstressed, ambulatory subject supports the diagnosis of Diabetes Mellitus. Order Comment: Reaso n for Exam Miscarriage Reason for Exam Chronic fatigue Reason for Exam Chronic fatigue;Hypoglycemia Result Comment: [place] om Glucose Reference Range is dependent on time and content of last meal. Glucose of more than 200 mg/dL in a nonstressed, ambulatory subject supports the diagnosis of Diabetes Mellitus. ADA recommended reference range Performed By: #### F OL, TSH3, MG, CMP, [id number], LIPID, FE and TIBC, SAKINA, B12, FSH, T4F, CRP #### [facility] [address] Glucose mean value [Mass/vol ume] in Blood Estimated from glycated hemoglobinOrdered By: Tiarra Childs on 05-27-2023 Average glucose Estimated from glycated hemoglobin (Bld) [Mass/Vol] 94 mg/dL [facility] HCG,Quantitativeon 3 HCG,Quantitative 400.13 m[iU]/mL Normal [facility] Comment on above: Order Comment: Reaso n for Exam Miscarriage Reason for Exam Chronic fatigue Reason for Exam Chronic fatigue;Hypoglycemia Result Comment: Appr oximate Approximate hCG Gestational Age Range (mIU/ml) (weeks) 0.2-1 5-50 1-2 50-500 2-3 100-5,000 3-4 500-10,000 4-5 1,000-50,000 5-6 10,000-100,000 6-8 15,000-200,000 8-12 10,000-100,000 Performed By: #### F OL, TSH3, MG, CMP, [id number], LIPID, FE and TIBC, SAKINA, B12, FSH, T4F, CRP #### [facility] [address] [place] [id number] [place] Hematocrit [Volume Fraction] of Blood by Automated countOrdered By: Tiarra Childs on 05-27-2023 Hematocrit (Bld) [Volume fraction] 37.5 % Normal 34.0-46.4 [facility] Comment on above: Order Comment: Reaso n for Exam Miscarriage Performed By: #### F OL, TSH3, MG, CMP, [id number], LIPID, FE and TIBC, SAKINA, B12, FSH, T4F, CRP #### [facility] [address] Hemoglobin A1c percentageOrd ered By: Tiarra Childs on 05-27-2023 HbA1c (Bld) [Mass fraction] 4.9 % Normal 4.3-5.6 [facility] Comment on above: Increased risk for d iabetes: 5.7 - 6.4diabetes: >6.4glycemic control for adults with diabetes: <7.0 Order Comment: Reaso n for Exam Chronic fatigue;Hypoglycemia Result Comment: Incr eased risk for diabetes: 5.7 - 6.4 diabetes: >6.4 glycemic control for adults with diabetes: <7.0 Performed By: #### F OL, TSH3, MG, CMP, [id number], LIPID, FE and TIBC, SAKINA, B12, FSH, T4F, CRP #### [facility] [address] [place] [id number] [place] Hemoglobin [Mass/volume] in BloodOrdered By: Tiarra Childs on 05-27-2023 Hemoglobin (Bld) [Mass/Vol] 13.1 g/dL Normal 11.8-15.4 [facility] Comment on above: Order Comment: Reaso n for Exam Miscarriage Performed By: #### F OL, TSH3, MG, CMP, [id number], LIPID, FE and TIBC, SAKINA, B12, FSH, T4F, CRP #### [facility] [address] [place] [id number] [place] Insulinon 05-27-2023 Insulin 5.5 u[iU]/mL Normal 2.6-24.9 [facility] Comment on above: Order Comment: Reaso n for Exam Chronic fatigue Result Comment: Perf ormed at: - [facility] [address] [id number] Perinatal Technician: Alf Simpson PhD, Phone: [phone] PERFORMED BY: [place] [address] PATHOLOGIST SALES PLANNING COORDINATOR SADAF YOUNGBLOOD M.D. Performed By: #### F OL, TSH3, MG, CMP, [id number], LIPID, FE and TIBC, SAKINA, B12, FSH, T4F, CRP #### [address] Iron [Mass/volume] in Serum or PlasmaOrdered By: Tiarra Childs on 05-27-2023 Iron [Mass/Vol] 94 ug/dL Normal 50-212 [facility] Comment on above: Order Comment: Reaso n for Exam Miscarriage Reason for Exam Chronic fatigue Reason for Exam Chronic fatigue;Hypoglycemia Performed By: #### F OL, TSH3, MG, CMP, [id number], LIPID, FE and TIBC, SAKINA, B12, FSH, T4F, CRP #### [facility] [address] [place] [address] Iron and TIBC Profileon 09-0 % Iron Saturation 18.3 % Low 20-50 [facility] Comment on above: Order Comment: Reaso n for Exam Miscarriage Reason for Exam Chronic fatigue Reason for Exam Chronic fatigue;Hypoglycemia Performed By: #### F OL, TSH3, MG, CMP, [id number], LIPID, FE and TIBC, SAKINA, B12, FSH, T4F, CRP #### [facility] [address] Total Iron Binding Capacity 514 ug/dL High 255-450 [facility] Comment on above: Order Comment: Reaso n for Exam Miscarriage Reason for Exam Chronic fatigue Reason for Exam Chronic fatigue;Hypoglycemia Performed By: #### F OL, TSH3, MG, CMP, [id number], LIPID, FE and TIBC, SAKINA, B12, FSH, T4F, CRP #### [facility] [address] [place] [id number] [facility] Iron binding capacity [Mass/ volume] in Serum or PlasmaOrdered By: Tiarra Childs on 05-27-2023 Iron binding capacity [Mass/Vol] 514 ug/dL 255-450 [facility] Iron saturation [Mass Fracti on] in Serum or PlasmaOrdered By: Tiarra Childs on 05-27-2023 Iron saturation [Mass fraction] 18.3 % 20-50 [facility] Leukocytes [#/volume] correc paulie for nucleated erythrocytes in Blood by Automated counOrdered By: Tiarra Childs on 05-27-2023 WBC corrected for nucl RBC Auto (Bld) [#/Vol] 6.3 10*3/uL 3.8-11.6 [facility] Leukocytes [#/volume] in Blo od by Automated countOrdered By: Tiarra Childs on 05-27-2023 WBC (Bld) [#/Vol] 6.3 10*3/uL Normal 3.8-11.6 [facility] Comment on above: Order Comment: Reaso n for Exam Miscarriage Performed By: #### F OL, TSH3, MG, CMP, [id number], LIPID, FE and TIBC, SAKINA, B12, FSH, T4F, CRP #### [facility] [address] [place] [address] [place] Lymphocytes [#/volume] in Bl ood by Automated countOrdered By: Tiarra Childs on 05-27-2023 Lymphocytes (Bld) [#/Vol] 1.8 10*3/uL Normal 1.00-4.8 [facility] Comment on above: Order Comment: Reaso n for Exam Miscarriage Performed By: #### F OL, TSH3, MG, CMP, [id number], LIPID, FE and TIBC, SAKINA, B12, FSH, T4F, CRP #### [facility] [address] [place] [id number] [place] Lymphocytes/100 leukocytes i n Blood by Automated countOrdered By: Tiarra Childs on 05-27-2023 Lymphocytes/100 WBC (Bld) 29.2 % Normal . [facility] Comment on above: Order Comment: Reaso n for Exam Miscarriage Performed By: #### F OL, TSH3, MG, CMP, [id number], LIPID, FE and TIBC, SAKINA, B12, FSH, T4F, CRP #### [facility] [address] MCH [Entitic mass] by Automa paulie countOrdered By: Tiarra Childs on 05-27-2023 MCH (RBC) [Entitic mass] 31.5 pg Normal 24.7-34.3 [facility] Comment on above: Order Comment: Reaso n for Exam Miscarriage Performed By: #### F OL, TSH3, MG, CMP, [id number], LIPID, FE and TIBC, SAKINA, B12, FSH, T4F, CRP #### [facility] [address] MCHC Auto (RBC) [Mass/Vol]Or dered By: Tiarra Childs on 05-27-2023 MCHC (RBC) [Mass/Vol] 34.9 g/dL 32.0-35.0 [facility] MCV [Entitic volume] by Auto mated countOrdered By: Tiarra Childs on 05-27-2023 MCV (RBC) [Entitic vol] 90.3 fL Normal 80-100 F [facility] Comment on above: Order Comment: Reaso n for Exam Miscarriage Performed By: #### F OL, TSH3, MG, CMP, [id number], LIPID, FE and TIBC, SAKINA, B12, FSH, T4F, CRP #### [facility] [address] Neutrophils [#/volume] in Bl ood by Automated countOrdered By: Tiarra Childs on 05-27-2023 Neutrophils (Bld) [#/Vol] 3.9 10*3/uL Normal 1.8-7.7 [facility] Comment on above: Order Comment: Reaso n for Exam Miscarriage Performed By: #### F OL, TSH3, MG, CMP, [id number], LIPID, FE and TIBC, SAKINA, B12, FSH, T4F, CRP #### [facility] [address] No Panel InformationOrdered By: Tiarra Childs on 05-27-2023 Estimated GFR (CKD-EPI) > 60.0 mL/Min [facility] Creatinine Clearance (Chem N/A [facility] Nucleated erythrocytes [Pres ence] in Blood by Automated countOrdered By: Tiarra Childs on 05-27-2023 Nucleated RBC Auto Ql (Bld) 0.1 /100{WBC} 0-0.5 [facility] Platelet mean volume [Entiti c volume] in Blood by Automated countOrdered By: Tiarra Childs on 05-27-2023 Platelet mean volume (Bld) [Entitic vol] 8.6 fL Normal 6.3-10.7 [facility] Comment on above: Order Comment: Reaso n for Exam Miscarriage Performed By: #### F OL, TSH3, MG, CMP, [id number], LIPID, FE and TIBC, SAKINA, B12, FSH, T4F, CRP #### [facility] [address] Platelets [#/volume] in Bloo d by Automated countOrdered By: Tiarra hCilds on 05-27-2023 Platelets (Bld) [#/Vol] 350 10*3/uL Normal 150-450 [facility] Comment on above: Order Comment: Reaso n for Exam Miscarriage Performed By: #### F OL, TSH3, MG, CMP, [id number], LIPID, FE and TIBC, SAKINA, B12, FSH, T4F, CRP #### [facility] [address] Potassium [Moles/volume] in Serum or PlasmaOrdered By: Tiarra Childs on 05-27-2023 Potassium [Moles/Vol] 4.1 mmol/L Normal 3.5-5.1 [facility] Comment on above: Order Comment: Reaso n for Exam Miscarriage Reason for Exam Chronic fatigue Reason for Exam Chronic fatigue;Hypoglycemia Performed By: #### F OL, TSH3, MG, CMP, [id number], LIPID, FE and TIBC, SAKINA, B12, FSH, T4F, CRP #### [facility] [address] Protein [Mass/volume] in Ser um or PlasmaOrdered By: Tiarra Childs on 05-27-2023 Protein [Mass/Vol] 7.4 g/dL Normal 6.4-8.9 [facility] Comment on above: Order Comment: Reaso n for Exam Miscarriage Reason for Exam Chronic fatigue Reason for Exam Chronic fatigue;Hypoglycemia Performed By: #### F OL, TSH3, MG, CMP, [id number], LIPID, FE and TIBC, SAKINA, B12, FSH, T4F, CRP #### [facility] [address] Serum globulin measurement b y calculation (mass/volume)Ordered By: Tiarra Childs on 05-27-2023 Globulin (S) [Mass/Vol] 3.0 g/dL Normal [facility] Comment on above: Order Comment: Reaso n for Exam Miscarriage Reason for Exam Chronic fatigue Reason for Exam Chronic fatigue;Hypoglycemia Performed By: #### F OL, TSH3, MG, CMP, [id number], LIPID, FE and TIBC, SAKINA, B12, FSH, T4F, CRP #### [facility] [address] Serum or plasma albumin/glob ulin mass ratioOrdered By: Tiarra Childs on 05-27-2023 Albumin/Globulin [Mass ratio] 1.5 {ratio} Normal [facility] Comment on above: Order Comment: Reaso n for Exam Miscarriage Reason for Exam Chronic fatigue Reason for Exam Chronic fatigue;Hypoglycemia Performed By: #### F OL, TSH3, MG, CMP, [id number], LIPID, FE and TIBC, SAKINA, B12, FSH, T4F, CRP #### [facility] [address] Serum or plasma anion gap de terminationOrdered By: Tiarra Childs on 05-27-2023 Anion gap [Moles/Vol] 10.1 mmol/L Normal 6.0-15.0 [facility] Comment on above: Order Comment: Reaso n for Exam Miscarriage Reason for Exam Chronic fatigue Reason for Exam Chronic fatigue;Hypoglycemia Performed By: #### F OL, TSH3, MG, CMP, [id number], LIPID, FE and TIBC, SAKINA, B12, FSH, T4F, CRP #### [facility] [address] Serum or plasma insulin michael urement (units/volume)Ordered By: Tiarra Childs on 05-27-2023 Insulin Qn 5.5 u[iU]/mL 2.6-24.9 [facility] Comment on above: Performed at: [address] [id number] Director: Alf Simpson PhD, Phone: [phone] Sodium [Moles/volume] in Ser um or PlasmaOrdered By: Tiarra Childs on 05-27-2023 Sodium [Moles/Vol] 137 mmol/L Normal 136-145 [facility] Comment on above: Order Comment: Reaso n for Exam Miscarriage Reason for Exam Chronic fatigue Reason for Exam Chronic fatigue;Hypoglycemia Performed By: #### F OL, TSH3, MG, CMP, [id number], LIPID, FE and TIBC, SAKINA, B12, FSH, T4F, CRP #### [facility] [address] Thyrotropin [Units/volume] i n Serum or PlasmaOrdered By: Tiarra Childs on 05-27-2023 TSH Qn 0.95 m[IU]/L Normal 0.45-5.33 [facility] Comment on above: Order Comment: Reaso n for Exam Miscarriage Reason for Exam Chronic fatigue Reason for Exam Chronic fatigue;Hypoglycemia Performed By: #### F OL, TSH3, MG, CMP, [id number], LIPID, FE and TIBC, SAKINA, B12, FSH, T4F, CRP #### [facility] [address] Thyroxine (T4) free [Mass/vo lume] in Serum or PlasmaOrdered By: Tiarra Childs on 05-27-2023 Free T4 [Mass/Vol] 0.80 ng/dL Normal 0.61-1.12 [facility] Comment on above: Order Comment: Reaso n for Exam Miscarriage Reason for Exam Chronic fatigue Reason for Exam Chronic fatigue;Hypoglycemia Performed By: #### F OL, TSH3, MG, CMP, [id number], LIPID, FE and TIBC, SAKINA, B12, FSH, T4F, CRP #### [facility] [address] Transferrin [Mass/volume] in Serum or PlasmaOrdered By: Tiarra Childs on 05-27-2023 Transferrin [Mass/Vol] 367 mg/dL High 203-362 [facility] Comment on above: Order Comment: Reaso n for Exam Miscarriage Reason for Exam Chronic fatigue Reason for Exam Chronic fatigue;Hypoglycemia Performed By: #### F OL, TSH3, MG, CMP, [id number], LIPID, FE and TIBC, SAKINA, B12, FSH, T4F, CRP #### [facility] [address] [place] [address] Urea nitrogen [Mass/volume] in Serum or PlasmaOrdered By: Tiarra Childs on 05-27-2023 Urea nitrogen [Mass/Vol] 9 mg/dL Normal 7-25 [facility] Comment on above: Order Comment: Reaso n for Exam Miscarriage Reason for Exam Chronic fatigue Reason for Exam Chronic fatigue;Hypoglycemia Performed By: #### F OL, TSH3, MG, CMP, [id number], LIPID, FE and TIBC, SAKINA, B12, FSH, T4F, CRP #### [facility] [address] [place] [address] Vit. B12/Folate Profileon Folate 16.2 ng/mL Normal >5.9 [facility] Comment on above: Order Comment: Reaso n for Exam Miscarriage Reason for Exam Chronic fatigue Reason for Exam Chronic fatigue;Hypoglycemia Result Comment: Yulia te reference range: >5.9 ng/ml The WHO technical consultation on folate and vitamin b12 deficiencies has determined that folate concentrations less than 4 ng/ml are considered deficient. Performed By: #### F OL, TSH3, MG, CMP, [id number], LIPID, FE and TIBC, SAKINA, B12, FSH, T4F, CRP #### [facility] [address] Vitamin B12 ser/plasOrdered By: Tiarra Childs on 05-27-2023 Cobalamin (Vitamin B12) [Mass/Vol] 340 pg/mL Normal 180-914 [facility] Comment on above: Order Comment: Reaso n for Exam Miscarriage Reason for Exam Chronic fatigue Reason for Exam Chronic fatigue;Hypoglycemia Performed By: #### F OL, TSH3, MG, CMP, [id number], LIPID, FE and TIBC, SAKINA, B12, FSH, T4F, CRP #### [facility] [address] [id number] [facility] Vitamin D 25 Hydroxy Totalon 05-27-2023 Vitamin D 25 Hydroxy Total 43.5 ng/mL Normal 30-100 [facility] Comment on above: Order Comment: Reaso n for Exam Miscarriage Reason for Exam Chronic fatigue Reason for Exam Chronic fatigue;Hypoglycemia Result Comment: NATALIE MIN D STATUS 25(OH)VITAMIN D RANGE (ng/mL) Deficient <20 Insufficient 20 to <30 Sufficient 30 to 100 Reference: Manish Bruno, Donis BASHIR, et al. Evaluation,treatment, and prevention of vitamin D deficiency; an Endocrine Society clinical practice guideline. JCEM. 2010; 96(7):1911-. PERFORMED BY: [facility] [address] [place] [address] PATHOLOGIST SALES PLANNING COORDINATOR SADAF YOUNGBLOOD M.D. Performed By: #### F OL, TSH3, MG, CMP, [id number], LIPID, FE and TIBC, SAKINA, B12, FSH, T4F, CRP #### [facility] [address] Vitamin D+Metabolites [Mass/ volume] in Serum or PlasmaOrdered By: Tiarra Childs on 05-27-2023 Vitamin D+Metabolites [Mass/Vol] 43.5 ng/mL 30-100 [facility] Comment on above: VITAMIN D STATUS 25( [place])VITAMIN D RANGE (ng/mL) Deficient <20 Insufficient 20 to <30Sufficient 30 to 100Reference: Manish Bruno, Donis BASHIR, et al. Evaluation,treatment, and prevention of vitamin D deficiency; an Endocrine Society clinical practice guideline. JCEM. 2010; 96(7):1911-30. COVID-19 Detected/Not Detect edOrdered By: Tiarra Amadeo on 12-09-2022 SARS-CoV-2 (COVID-19) RNA KYLAH+non-probe Ql (Nph) Not detected Not Detecte [facility] Comment on above: This is a duplicate RP2.1 COVID (PCR) result to be used for statistical tracking purpose only. Respiratory pathogens DNA an d RNA panel - Nasopharynx by KYLAH with non-probe detectionOrdered By: Tiarra Childs on 12-09-2022 Respiratory pathogens DNA and RNA panel KYLAH+non-probe (Nph) [facility] CBC AUTO DIFFon 12-04-2022 BASO # 0.0 103/ul Normal 0.0-0.[address] [facility] Comment on above: Performed By: #### C BC #### [facility] [address] [place] [address] Dr. Angelica Smith Basophils/100 WBC (Bld) 0.7 % Normal 0.2-2.0 [facility] Comment on above: Performed By: #### C BC #### [facility] [address] [place] [address] Dr. Angelica Smith EO # 0.1 103/ul Normal 0.0-0.[address] [facility] Comment on above: Performed By: #### C BC #### [facility] [address] [place] [address] Dr. Angelica Smith Eosinophils/100 WBC (Bld) 1.1 % Normal 0.9-7.[address] [facility] Comment on above: Performed By: #### C BC #### [facility] [address] [place] [address] Dr. Angelica Smith Erythrocyte distribution width (RBC) [Ratio] 12.1 % Normal 11.0-15.[address] [facility] Comment on above: Performed By: #### C BC #### [facility] [address] [place] [address] Dr. Angelica Smith Hematocrit (Bld) [Volume fraction] 39.3 % Normal 36.0-48.[address] [facility] Comment on above: Performed By: #### C BC #### [facility] [address] [place] [address] Dr. Angelica Smith Hemoglobin (Bld) [Mass/Vol] 13.3 g/dL Normal 12.0-16.0 [facility] Comment on above: Performed By: #### C BC #### [facility] [address] [place] [address] Dr. Angelica Smith IG # 0.01 10e3/ul Normal 0.00-0.03 [facility] Comment on above: Performed By: #### C BC #### [facility] [address] [place] [address] Dr. Angelica Smith IG % 0.2 % Normal 0.0-0.[address] [facility] Comment on above: Performed By: #### C BC #### [facility] [address] [place] [address] Dr. Angelica Smith LYMPH # 1.9 103/ul Normal 1.2-3.8 [facility] Comment on above: Performed By: #### C BC #### [facility] [address] [place] [address] Dr. Angelica Smith Lymphocytes/100 WBC (Bld) 31.4 % Normal 20.5-60.0 [facility] Comment on above: Performed By: #### C BC #### [facility] [address] [place] [address] Dr. Angelica Smith MANUAL DIFF REQ NO Normal [facility] Comment on above: Performed By: #### C BC #### [facility] [address] [place] [address] Dr. Angelica Smith MCH (RBC) [Entitic mass] 30.3 pg Normal 26.7-34.0 [facility] Comment on above: Performed By: #### C BC #### [facility] [address] [place] [address] Dr. Angelica Smith MCHC (RBC) [Mass/Vol] 33.8 g/dL Normal 29.9-35.2 [facility] Comment on above: Performed By: #### C BC #### [facility] [address] [place] [address] Dr. Angelica Smith MCV (RBC) [Entitic vol] 89.5 fL Normal 81.0-99.0 [facility] Comment on above: Performed By: #### C BC #### [facility] [address] [place] [address] Dr. Angelica Smith MONO # 0.5 103/ul Normal 0.3-0.[address] [facility] Comment on above: Performed By: #### C BC #### [facility] [address] [place] [address] Dr. Angelica Smith Monocytes/100 WBC (Bld) 7.4 % Normal 1.7-12.0 [facility] Comment on above: Performed By: #### C BC #### [facility] [address] [place] [address] Dr. Angelica Smith NEUT # 3.6 103/ul Normal 1.4-6.[address] [facility] Comment on above: Performed By: #### C BC #### [facility] [address] [place] [address] Dr. Angelica Smith Neutrophils/100 WBC (Bld) 59.2 % Normal 43.0-75.[address] [facility] Comment on above: Performed By: #### C BC #### [facility] [address] [place] [address] Dr. Angelica Smith Platelet mean volume (Bld) [Entitic vol] 9.7 fL Normal 9.5-13.[address] [facility] Comment on above: Performed By: #### C BC #### [facility] [address] [place] [address] Dr. Angelica Smith PLT 289 103/ul Normal 150-450 [facility] Comment on above: Performed By: #### C BC #### [facility] [address] [place] [address] Dr. Angelica Smith RBC 4.39 106/ul Normal 4.20-5.[address] [facility] Comment on above: Performed By: #### C BC #### [facility] [address] [place] [address] Dr. Angelica Smith WBC 6.1 103/ul Normal 4.0-11.0 [facility] Comment on above: Performed By: #### C BC #### [facility] [address] [address] [address] Angelica Smith PREG QUANT HCGon 12-04-2022 HCG QUANT <[address] [facility] Comment on above: Performed By: #### P REGQNT #### [facility] [address] [address] [address] Angelica Smith HCG RANGE SEE BELOW Normal [facility] Comment on above: Result Comment: 5-50 0.2-1 WEEK 50-500 1-2 WEEKS 100-5,000 2-3 WEEKS 500-10,000 3-4 WEEKS 1,000-50,000 4-5 WEEKS 10,000-100,000 5-6 WEEKS 15,000-200,000 6-8 WEEKS 10,000-100,000 2-3 MONTHS Performed By: #### P REGQNT #### [facility] [address] [place] [address] Dr. Angelica Smith Albumin [Mass/volume] in Ser um or PlasmaOrdered By: Tiarra Childs on 10-29-2022 Albumin [Mass/Vol] 4.3 g/dL 3.2-5.5 [facility] Alternaria alternata IgE Ab [Units/volume] in SerumOrdered By: Tiarra Childs on 10-29-2022 A. alternata IgE Qn (S) <0.10 kU/L Class 0 F [facility] Namibian house dust mite IgE Ab [Units/volume] in SerumOrdered By: Tiarra Childs on 10-29-2022 Namibian house dust mite IgE Qn (S) 0.10 kU/L Class 0/I [facility] Aspergillus fumigatus IgE Ab [Units/volume] in SerumOrdered By: Tiarra Childs on 10-29-2022 A. fumigatus IgE Qn (S) <0.10 kU/L Class 0 F [facility] Shaffer's yeast IgE Ab [Units/ volume] in SerumOrdered By: Tiarra Childs on 10-29-2022 Shaffer's yeast IgE Qn (S) <0.10 kU/L Class 0 [facility] Comment on above: Performed at: - [facility] [id number] [place], [place] [id number] Director: Jayne Mann MD, Phone: [phone] Banana IgE Ab [Units/volume] in SerumOrdered By: Tiarra Childs on 10-29-2022 Banana IgE Qn (S) <0.10 kU/L Class 0 [facility] Barley IgE Ab [Units/volume] in SerumOrdered By: Tiarra Childs on 10-29-2022 Barley IgE Qn (S) 0.40 kU/L Class I [facility] Beef IgE Ab [Units/volume] i n SerumOrdered By: Tiarra Childs on 10-29-2022 Beef IgE Qn (S) <0.10 kU/L Class 0 [facility] Bermuda grass IgE Ab [Units/ volume] in SerumOrdered By: Tiarra Childs on 10-29-2022 Bermuda grass IgE Qn (S) <0.10 kU/L Class 0 [facility] Boxelder IgE Ab [Units/volum e] in SerumOrdered By: Tiarra Childs on 10-29-2022 Boxelder IgE Qn (S) <0.10 kU/L Class 0 [facility] Cheese cheddar type IgE Ab [ Units/volume] in SerumOrdered By: Tiarra Childs on 10-29-2022 Cheese cheddar type IgE Qn (S) <0.10 kU/L Class 0 [facility] Cladosporium herbarum IgE Ab [Units/volume] in SerumOrdered By: Tiarra Childs on 10-29-2022 C. herbarum IgE Qn (S) <0.10 kU/L Class 0 [facility] Cockroach IgE Ab [Units/volu me] in SerumOrdered By: Tiarra Childs on 10-29-2022 Cockroach IgE Qn (S) 0.44 kU/L Class I [facility] [place] IgE Ab [Units/volume] i n SerumOrdered By: Tiarra Childs on 10-29-2022 [place] IgE Qn (S) <0.10 kU/L Class 0 [facility] Gaines IgE Ab [Units/vol ume] in SerumOrdered By: Tiarra Childs on 10-29-2022 Gaines IgE Qn (S) <0.10 kU/L Class 0 [facility] Cow milk IgE Ab [Units/volum e] in SerumOrdered By: Tiarra Childs on 10-29-2022 Cow milk IgE Qn (S) <0.10 kU/L Class 0 [facility] Creatinine and Glomerular fi ltration rate.predicted panel (S/P/Bld)Ordered By: Tiarra Childs on 10-29-2022 Creatinine [Mass/Vol] 0.65 mg/dL 0.44-1.03 [facility] Dog dander IgE Ab [Units/vol ume] in SerumOrdered By: Tiarra Childs on 10-29-2022 Dog dander IgE Qn (S) 0.12 kU/L Class 0/I [facility] Estimated glomerular filtrat ion rate (GFR) non- AmericanOrdered By: Tiarra Childs on 10-29-2022 GFR/1.73 sq M.predicted among non-blacks MDRD (S/P/Bld) [Vol rate/Area] > 60 mL/Min [facility] house dust mite IgE Ab [Units/volume] in SerumOrdered By: Tiarra Childs on 10-29-2022 house dust mite IgE Qn (S) 0.26 kU/L Class 0/I [facility] Free testosterone measuremen t by LC-MS/MSOrdered By: Tiarra Childs on 10-29-2022 Testosterone Free [Mass/Vol] 3.7 pg/mL 0.0-4.2 [facility] Comment on above: Performed at: [address] [id number] Director: Alf Simpson PhD, Phone: [phone] at: [facility] [id number] Director: Jayne Mann MD, Phone: [phone] Gluten IgE Ab [Units/volume] in SerumOrdered By: Tiarra Childs on 10-29-2022 Gluten IgE Qn (S) <0.10 kU/L Class 0 [facility] Hepatitis B virus surface Ag [Presence] in Serum or Plasma by ImmunoassayOrdered By: Tiarra Childs on 10-29-2022 HBV surface Ag IA Ql Negative Negative [facility] Hepatitis C virus RNA [Units /volume] (viral load) in Serum or Plasma by KYLA[facility] with probOrdered By: Tiarra Childs on 10-29-2022 HCV RNA KYLAH+probe Qn N/A [facility] Hepatitis C virus RNA [log u nits/volume] (viral load) in Serum or Plasma by KYLAH withOrdered By: Tiarra Childs on 10-29-2022 HCV RNA KYLAH+probe [Log units/Vol] N/A [facility] Human leukocyte antigen (HLA ) DQ2 detectionOrdered By: Tiarra Childs on 10-29-2022 HLA-DQ2 Ql (Bld/Tiss) Negative . [facility] Human leukocyte antigen (HLA ) DQ8 detectionOrdered By: Tiarra Childs on 10-29-2022 HLA-DQ8 Ql (Bld/Tiss) Negative . [facility] Comment on above: Final Results:DQA1*0 5:EETCV,-DQB1*03:EETKC,-Code Translation:EETCV 05:09/24:01/22:05/25:07/25:08/24:30/01:14 :16:17N/:20:24:25:26 :28:29Q/05:30:32:34/:35 :37/05:39/:42:43:44:45:46 :48:50:51:53/05:58/05:5905:60 /05:62/05:64EETKC 03:01:10:16:06/12:08/12:22:24 :27:15/12:29:35/03:36/03:42/03:44 /03:46/03:47/03:48/03:49/03:50/03:51/03:52 /03:53/03:54/03:55/03:56/03:57/03:58/03:59 /03:60/03:69/03:73/03:75/03:76/03:77/03:78 /03:82/03:83/03:84N/03:92/03:93/03:94 /03:101/03:102/03:103/03:108/03:109/03:114 /03:115/03:116/03:118N/03:119/03:120 /03:121/03:122/03:127/03:128/03:129/03:130 /03:131/03:133/03:134/03:135/03:139/03:140 /03:142/03:143/03:144/03:147/03:148/03:151 /03:152/03:154/03:157/03:158/03:159/03:160 /03:162/03:163/03:164/03:165/03:166/03:167 /03:169/03:170/03:171/03:173/03:182/03:183 /03:186/03:188/03:191/03:192/03:193/03:196 /03:197Q/03:198/03:201/03:202/03:206 /03:207/03:208/03:216/03:218/03:219/03:231 /03:232/03:235/03:236/03:241/03:242/03:243 /03:246/03:252/03:253/03:254/03:255/03:257 /03:260/03:264/03:266/03:267/03:268/03:271 /03:275/03:276N/03:281/03:284/03:285 /03:288/03:290/03:291/03:292/03:293/03:294 /03:297/03:302/03:303N/03:305/03:306 /03:307/03:309/03:311/03:312/03:314/03:317 /03:326/03:328/03:329/03:330/03:331 /03:338N/03:340N/03:341/03:342/03:347 /03:350/03:353/03:354N/03:358N/03:361 /03:366/03:370/03:372/03:373/03:377/03:378 /03:380/03:385N/03:387/03:389/03:390 /03:391/03:394/03:396/03:399N/03:400N /03:404/03:407N/03:408/03:417/03:418 /03:419/03:420/03:421/03:423/03:424/03:425 /03:426/03:427N/03:428/03:430/03:431 /03:432/03:434/03:435/03:436/03:438/03:439 /03:448/03:449/03:451/03:454/03:455/03:458 /03:460/03:465/03:467/03:468/03:469/03:470 /03:472/03:473N/03:475/03:476/03:480Q /03:482/03:483/03:486/03:488N/03:491/03:492The patient is positive for DQA1*05, one half of the [id number]. The Celiac Disease risk from the HLA DQA/DQBgenotype is approximately 1:1842 (0.05%). This is lessthan the 1% risk in the general population.Allele interpretation for all loci based on IMGT/HLAdatabase version 3.49.0Cloud County Health CenterIA ID Number [id number] than 95% of celiac patients are positive for eitherDQ2 or DQ8 (Kirt and Neela, (1993) [id number]). However these antigens may also be present inpatients who do not have Celiac disease. IgE [Units/volume] in Serum or PlasmaOrdered By: Tiarra Childs on 10-29-2022 IgE Qn 5 [IU]/mL 6-495 [facility] Laboratory - Chemistry and C hemistry - challengeOrdered By: Tiarra Childs on 10-29-2022 Testosterone [Mass/Vol] 41 ng/dL 13-71 F [facility] Mountain Juniper IgE Ab [Uni ts/volume] in SerumOrdered By: Tiarra Childs on 10-29-2022 [place] Juniper IgE Qn (S) 0.19 kU/L Class 0/I [facility] Mouse urine proteins IgE Ab [Units/volume] in SerumOrdered By: Tiarra Childs on 10-29-2022 Mouse urine proteins IgE Qn (S) <0.10 kU/L Class 0 [facility] No Panel InformationOrdered By: Tiarra Childs on 10-29-2022 Allergen Note See comment . [facility] Comment on above: Levels of Specific I gE Class Description of Class ----- < 0.10 0 Negative 0.10 - 0.31 0/I Equivocal/Low 0.32 - 0.55 I Low 0.56 - 1.40 II Moderate 1.41 - 3.90 III High 3.91 - 19.00 IV Very High 19.01 - 100.00 V Very High >100.00 Very High C-Peptide 1.7 ng/mL 1.1-4.4 [facility] Comment on above: C-Peptide reference interval is for fasting patients.Performed at: [facility] [employer] [id number] Director: Alf Simpson PhD, Phone: [phone] Celiac Gene Interpretation See comment . [facility] Comment on above: References:1. Fidel CROOKS and Krystin Lock. Celiac Disease. N Eng J Med 2007; 357:4897-2461.2. Yeni F, Dottie B, Bri M et al. HLA-DQ and risk gradient for celiac disease. Hum Immunol 2009; 70:55-59.3. Bandar MM, Rigo TC, Raven FM et al. Stratifying risk for celiac disease in a large at-risk [place] population by using HLA alleles. Clin Gastroenterol Hepatol 2009; 7:966-971.4. Kirt LM and Kieran BA. (2005). Celiac Disease Genetics: Current Concepts and Practical Applications. Clin Gastroenterol and Hepat 3:843-851.5. Yamile CL, Andrew DO, Fidel CROOKS, et al. Celiac Disease. In: Lori RA, Sang TC, Nigel CR, Je K, editors. [employer]), [facility], [place], March 22, 2008:1-27. http://www.[employer].nlm.nih.gov/Lightside Gamesdayaf/br.fcgi?book=genepart=c eliac PMID [id number] (PubMed)6. Luis Lim. Emerging concepts in celiac disease. Curr Opin Pediatr 2004;16:552-559.Performed at: [facility] [id number] [place], [place] [id number] Director: Dajuan Dickinson PhD, Phone: [phone] Dehydroepiandrosterone Sulfate 368.0 ug/dL 110.0-431. 7 [facility] Estimated GFR () > 60 mL/Min [facility] Comment on above: GFR estimated refere nce range: According to KDOQI guidelines, <60 ml/min/1.73m2 is sufficient to diagnose a patient with chronic kidney disease. Hepatitis A IgM Antibody Negative Negative [facility] Hepatitis B Core IgM Antibody Negative Negative [facility] Hepatitis C Interpretation See comment . [facility] Comment on above: NegativeNot infected with HCV, unless recent infection issuspected or other evidence exists to indicate HCVinfection.Performed at: - [facility] [address] [id number] Director: Alf Simpson PhD, Phone: [phone] Hepatitis C RNA Quantitative N/A [facility] HLA Genotype Interpretation See comment . [facility] Comment on above: This test was perfor med using Polymerase ChainReaction/(PCR)Sequence Specific Oligonucleotide Probes(SSOP) ([employer]) technique. Sequence Based Typing (SBT)and/or Sequence Specific Primers (SSP) may be used assupplemental methods when necessary. Please contact HLACustomer Service at if you have anyquestions.Director of HLA LaboratoryDr Dajuan Dickinson, PhD Pharmacy Creatinine Clearance (Chem N/A [facility] Oat IgE Ab [Units/volume] in SerumOrdered By: Tiarra Childs on 10-29-2022 Oat IgE Qn (S) 0.32 kU/L Class I [facility] [place] IgE Ab [Units/volume] in SerumOrdered By: Tiarra Childs on 10-29-2022 [place] IgE Qn (S) <0.10 kU/L Class 0 [facility] Peanut IgE Ab [Units/volume] in SerumOrdered By: Tiarra Childs on 10-29-2022 Peanut IgE Qn (S) <0.10 kU/L Class 0 [facility] Pecan or [place] Tree IgE Ab [Units/volume] in SerumOrdered By: Tiarra Childs on 10-29-2022 Pecan or [place] Tree IgE Qn (S) <0.10 kU/L Class 0 [facility] Phosphate [Mass/volume] in S ulises or PlasmaOrdered By: Tiarra Childs on 10-29-2022 Phosphate [Mass/Vol] 4.2 mg/dL 2.5-4.6 [facility] Pork IgE Ab [Units/volume] i n SerumOrdered By: Tiarra Childs on 10-29-2022 Pork IgE Qn (S) <0.10 kU/L Class 0 [facility] Prolactin [Mass/volume] in S ulises or PlasmaOrdered By: Tiarra Childs on 10-29-2022 Prolactin [Mass/Vol] 6.27 ng/mL 3.34-26.72 [facility] Rice IgE Ab [Units/volume] i n SerumOrdered By: Tiarra Childs on 10-29-2022 Rice IgE Qn (S) <0.10 kU/L Class 0 [facility] [place] IgE Ab [Units/volume] in SerumOrdered By: Tiarra Childs on 10-29-2022 [place] IgE Qn (S) 0.31 kU/L Class 0/I [facility] Saltwort IgE Ab [Units/volum e] in SerumOrdered By: Tiarra Childs on 10-29-2022 Saltwort IgE Qn (S) <0.10 kU/L Class 0 [facility] Serum Namibian sycamore IgE antibody assay (units/volume)Ordered By: Tiarra Childs on 10-29-2022 Namibian Cato IgE Qn (S) 0.11 kU/L Class 0/I [facility] Serum Penicillium chrysogenu m specific IgE antibody assayOrdered By: Tiarra Childs on 10-29-2022 P. notatum IgE Qn (S) <0.10 kU/L Class 0 [facility] Serum androstenedione measur ement by LC-MS/MS (mass/volume)Ordered By: Tiarra Childs on 10-29-2022 Androstenedione [Mass/Vol] 135 ng/dL 41-262 [facility] Comment on above: This test was develo ped and its performance characteristicsdetermined by [employer]. It has not been cleared orapproved by the Food and Drug Administration.Performed at: [address] [id number] Director: Jayne Mann MD, Phone: [phone] Serum cat dander IgG antibod y assay (units/volume)Ordered By: Tiarra Childs on 10-29-2022 Cat dander IgG Qn (S) <0.10 kU/L Class 0 [facility] Serum chicken droppings IgE antibody assay (units/volume)Ordered By: Tiarra Childs on 10-29-2022 Chicken droppings IgE Qn (S) <0.10 kU/L Class 0 [facility] Serum or plasma 17-hydroxypr ogesterone measurement (mass/volume)Ordered By: Tiarra Childs on 10-29-2022 17-Hydroxyprogesterone [Mass/Vol] 28 ng/dL . [facility] Comment on above: Adult Female Follicu lar 15 - 70 Luteal 35 - 290This test was developed and its performance characteristicsdetermined by [facility]. It has not been cleared orapproved by the Food and Drug Administration.Performed at: [address] [id number] Director: Jayne Mann MD, Phone: [phone] Serum or plasma anion gap de terminationOrdered By: Tiarra Childs on 10-29-2022 Anion gap [Moles/Vol] 9.2 mmol/L 6.0-15.0 [facility] Serum or plasma calcium michael urement (mass/volume)Ordered By: Tiarra Childs on 10-29-2022 Calcium [Mass/Vol] 9.4 mg/dL 8.2-10.2 [facility] Serum or plasma chloride mandeep surement (moles/volume)Ordered By: Tiarra Childs on 10-29-2022 Chloride [Moles/Vol] 105 mmol/L 95-114 [facility] Serum or plasma follitropin measurement (units/volume)Ordered By: Tiarra Childs on 10-29-2022 Follitropin Qn 5.1 m[IU]/mL [facility] Comment on above: FEMALE NORMALS (FLOWER ENOPAUSE) MID-FOLLICULAR PHASE: 3.9-8.8 mIU/mL MID-CYCLE PEAK: 4.5-22.5 mIU/mL MID-LUTEAL PHASE: 1.8-5.1 mIU/mLFEMALE NORMALS (POSTMENOPAUSE): 16.7-113.6 mIU/mLMALE NORMALS: 1.3-19.3 mIU/mL Serum or plasma glucose michael urement (mass/volume)Ordered By: Tiarra Childs on 10-29-2022 Glucose [Mass/Vol] 83 mg/dL 70-100 [facility] Comment on above: ADA recommended refe rence [...] IA [Rel units/Vol] <0.1 s/co ratio 0.0-0.9 [facility] Serum or plasma insulin michael urement (units/volume)Ordered By: Tiarra Childs on 10-29-2022 Insulin Qn 6.1 u[iU]/mL 2.6-24.9 [facility] Comment on above: Performed at: [facility] [address] [id number] Director: Alf Simpson PhD, Phone: [phone] Serum or plasma lutropin mandeep surement (units/volume)Ordered By: Tiarra Childs on 10-29-2022 Lutropin Qn 7.8 m[IU]/mL . [facility] Comment on above: Adult Female: Follic ular phase 2.4 - 12.6 Ovulation phase 14.0 - 95.6 Luteal phase 1.0 - 11.4 Postmenopausal 7.7 - 58.5Performed at: [employer] [facility] [address] [id number] Director: Alf Simpson PhD, Phone: [phone] Serum or plasma potassium me asurement (moles/volume)Ordered By: Tiarra Childs on 10-29-2022 Potassium [Moles/Vol] 3.8 mmol/L 3.5-5.1 [facility] Serum or plasma sodium measu rement (moles/volume)Ordered By: Tiarra Childs on 10-29-2022 Sodium [Moles/Vol] 137 mmol/L 136-146 [facility] Serum or plasma total carbon dioxide measurement (moles/volume)Ordered By: Tiarra Childs on 10-29-2022 CO2 [Moles/Vol] 26.6 mmol/L 22.0-30.0 [facility] Serum or plasma urea nitroge n measurement (mass/volume)Ordered By: Tiarra Childs on 10-29-2022 Urea nitrogen [Mass/Vol] 8 mg/dL 9-23 [facility] Serum rough pigweed IgE anti body assay (units/volume)Ordered By: Tiarra Childs on 10-29-2022 Rough Pigweed IgE Qn (S) <0.10 kU/L Class 0 [facility] Serum short ragweed specific IgE antibody assayOrdered By: Tiarra Childs on 10-29-2022 Common Ragweed IgE Qn (S) <0.10 kU/L Class 0 [facility] Serum white elm IgG antibody assay (units/volume)Ordered By: Tiarra Childs on 10-29-2022 White Elm IgG Qn (S) <0.10 kU/L Class 0 [facility] Serum white potato specific IgE antibody assayOrdered By: Tiarra Childs on 10-29-2022 Potato IgE Qn (S) <0.10 kU/L Class 0 [facility] Sheep Haskins IgE Ab [Units/v olume] in SerumOrdered By: Tiarra Childs on 10-29-2022 Sheep Haskins IgE Qn (S) <0.10 kU/L Class 0 F [facility] Silver Birch IgE Ab [Units/v olume] in SerumOrdered By: Tiarra Childs on 10-29-2022 Silver [place]ch IgE Qn (S) 0.15 kU/L Class 0/I F [facility] Soybean specific IgE antibod y assayOrdered By: Tiarra Childs on 10-29-2022 Soybean IgE Qn (S) <0.10 kU/L Class 0 [facility] Donav[place] IgE Ab [Units/volume ] in SerumOrdered By: Tiarra Childs on 10-29-2022 [place] IgE Qn (S) <0.10 kU/L Class 0 [facility] Tomato IgE Ab [Units/volume] in SerumOrdered By: Tiarra Childs on 10-29-2022 Tomato IgE Qn (S) <0.10 kU/L Class 0 [facility] Beemer IgE Ab [Units/volume] in SerumOrdered By: Tiarra Childs on 10-29-2022 Beemer IgE Qn (S) 0.14 kU/L Class 0/I [facility] Wheat IgE Ab [Units/volume] in SerumOrdered By: Tiarra Childs on 10-29-2022 Wheat IgE Qn (S) <0.10 kU/L Class 0 [facility] White Marquez IgE Ab [Units/volu me] in SerumOrdered By: Tiarra Childs on 10-29-2022 White Marquez IgE Qn (S) <0.10 kU/L Class 0 [facility] [place] IgE Ab [Units/volu me] in SerumOrdered By: Tiarra Childs on 10-29-2022 [place] IgE Qn (S) 0.27 kU/L Class 0/I [facility] White mulberry IgE Ab [Units /volume] in SerumOrdered By: Tiarra Childs on 10-29-2022 White mulberry IgE Qn (S) <0.10 kU/L Class 0 [facility] Creatinine [Mass/volume] in UrineOrdered By: Tiarra Childs on 10-20-2022 Creatinine (U) [Mass/Vol] 96.6 mg/dL [facility] Comment on above: No reference range e stablished Urine microalbumin measureme nt with detection limit of 20 mg/L or less (mass/volume)Ordered By: Tiarra Childs on 10-20-2022 Albumin DL <= 20 mg/L (U) [Mass/Vol] 24.1 mg/dL 0.0-1.8 [facility] Urine microalbumin/creatinin e mass ratioOrdered By: Tiarra Childs on 10-20-2022 Albumin/Creatinine DL <= 20 mg/L (U) [Mass ratio] 249.0 mg/g 0.0-30.0 [facility] Comment on above: 30-300 mg/g indicate s an increased risk for diabetic nephropathy. Greater than 300 mg/g is consistent with clinical nephropathy. (Am. J. Kidney Disease 1995, 25:107) Albumin [Mass/volume] in Ser um or PlasmaOrdered By: Tiarra Childs on 10-09-2022 Albumin [Mass/Vol] 4.1 g/dL 3.2-5.5 [facility] Basophils Auto (Bld) [#/Vol] Ordered By: Tiarra Childs on 10-09-2022 Basophils (Bld) [#/Vol] 0.0 10*3/uL 0.0-0.2 [facility] Basophils/100 WBC Auto (Bld) Ordered By: Tiarra Childs on 10-09-2022 Basophils/100 WBC (Bld) 0.6 % . [facility] C reactive protein [Mass/vol ume] in Serum or PlasmaOrdered By: Tiarra Childs on 10-09-2022 CRP [Mass/Vol] < 0.5 mg/dL 0.0-1.0 [facility] CT biopsyOrdered By: Trish Childs on 10-09-2022 Transferrin [Mass/Vol] 262 mg/dL 180-380 [facility] Creatinine [Mass/volume] in UrineOrdered By: Tiarra Childs on 10-09-2022 Creatinine (U) [Mass/Vol] 123.2 mg/dL [facility] Comment on above: No reference range e stablished Creatinine and Glomerular fi ltration rate.predicted panel (S/P/Bld)Ordered By: Tiarra Childs on 10-09-2022 Creatinine [Mass/Vol] 0.67 mg/dL 0.44-1.03 [facility] Eosinophils Auto (Bld) [#/Vo l]Ordered By: Tiarra Childs on 10-09-2022 Eosinophils (Bld) [#/Vol] 0.1 10*3/uL 0.0-0.45 [facility] Eosinophils/100 WBC Auto (Bl d)Ordered By: Tiarra Childs on 10-09-2022 Eosinophils/100 WBC (Bld) 0.9 % . [facility] Erythrocyte distribution wid th Auto (RBC) [Ratio]Ordered By: Tiarra Childs on 10-09-2022 Erythrocyte distribution width (RBC) [Ratio] 13.1 % 11.9-15.3 [facility] Erythrocyte sedimentation ra te by Photometric methodOrdered By: Tiarra Childs on 10-09-2022 ESR Photometric method (Bld) [Velocity] 5 mm/hr 0-19 [facility] Estimated glomerular filtrat ion rate (GFR) non- AmericanOrdered By: Tiarra Childs on 10-09-2022 GFR/1.73 sq M.predicted among non-blacks MDRD (S/P/Bld) [Vol rate/Area] > 60 mL/Min [facility] Ferritin [Mass/volume] in Se rum or PlasmaOrdered By: Tiarra Childs on 10-09-2022 Ferritin [Mass/Vol] 12.7 ng/mL 11-306.8 [facility] Folate [Mass/volume] in Seru m or PlasmaOrdered By: Tiarra Childs on 10-09-2022 Folate [Mass/Vol] 8.1 ng/mL >5.9 [facility] Comment on above: Folate reference ran ge: >5.9 ng/mlThe WHO technical consultation on folate and vitamin [id number] has determined that folate concentrations lessthan 4 ng/ml are considered deficient. Globulin Calc (S) [Mass/Vol] Ordered By: Tiarra Childs on 10-09-2022 Globulin (S) [Mass/Vol] 2.3 g/dL F [facility] Hematocrit Auto (Bld) [Volum e fraction]Ordered By: Tiarra Childs on 10-09-2022 Hematocrit (Bld) [Volume fraction] 41.6 % 34.0-46.4 [facility] Hemoglobin [Mass/volume] in BloodOrdered By: Tiarra Childs on 10-09-2022 Hemoglobin (Bld) [Mass/Vol] 13.8 g/dL 11.8-15.4 [facility] Iron [Mass/volume] in Serum or PlasmaOrdered By: Tiarra Childs on 10-09-2022 Iron [Mass/Vol] 69 ug/dL 40-150 [facility] Iron binding capacity [Mass/ volume] in Serum or PlasmaOrdered By: Tiarra Childs on 10-09-2022 Iron binding capacity [Mass/Vol] 367 ug/dL 255-450 [facility] Iron saturation [Mass Fracti on] in Serum or PlasmaOrdered By: Tiarra Childs on 10-09-2022 Iron saturation [Mass fraction] 18.8 % 20-50 [facility] Laboratory - Chemistry and C hemistry - challengeOrdered By: Tiarra Childs on 10-09-2022 Cobalamin (Vitamin B12) [Mass/Vol] 394 pg/mL 180-914 [facility] Lipase [Catalytic activity/Vol] 29.0 U/L 22-51 [facility] Leukocytes [#/volume] correc paulie for nucleated erythrocytes in Blood by Automated counOrdered By: Tiarra Childs on 10-09-2022 WBC corrected for nucl RBC Auto (Bld) [#/Vol] 6.3 10*3/uL 3.8-11.6 [facility] Lymphocytes Auto (Bld) [#/Vo l]Ordered By: Tiarra Childs on 10-09-2022 Lymphocytes (Bld) [#/Vol] 1.5 10*3/uL 1.00-4.8 [facility] Lymphocytes/100 WBC Auto (Bl d)Ordered By: Tiarra Childs on 10-09-2022 Lymphocytes/100 WBC (Bld) 24.1 % . [facility] MCH Auto (RBC) [Entitic mass ]Ordered By: Tiarra Childs on 10-09-2022 MCH (RBC) [Entitic mass] 29.8 pg 24.7-34.3 [facility] MCHC Auto (RBC) [Mass/Vol]Or dered By: Tiarra Childs on 10-09-2022 MCHC (RBC) [Mass/Vol] 33.3 g/dL 32.0-35.0 [facility] MCV Auto (RBC) [Entitic vol] Ordered By: Tiarra Childs on 10-09-2022 MCV (RBC) [Entitic vol] 89.7 fL 80-100 F [facility] Monocytes Auto (Bld) [#/Vol] Ordered By: Tiarra Childs on 10-09-2022 Monocytes (Bld) [#/Vol] 0.3 10*3/uL 0.0-0.8 [facility] Monocytes/100 WBC Auto (Bld) Ordered By: Tiarra Childs on 10-09-2022 Monocytes/100 WBC (Bld) 5.2 % . [facility] Neutrophils Auto (Bld) [#/Vo l]Ordered By: Tiarra Childs on 10-09-2022 Neutrophils (Bld) [#/Vol] 4.3 10*3/uL 1.8-7.7 [facility] Neutrophils/100 WBC Auto (Bl d)Ordered By: Tiarra Childs on 10-09-2022 Neutrophils/100 WBC (Bld) 69.2 % . [facility] No Panel InformationOrdered By: Tiarra Childs on 10-09-2022 25-Hydroxy Vitamin D Total 31.2 ng/mL 30-100 [facility] Comment on above: VITAMIN D STATUS 25( [place])VITAMIN D RANGE (ng/mL) Deficient <20 Insufficient 20 to <30Sufficient 30 to 100Reference: Ambar MF,Manish MARTINZE, Donis BASHIR, et al. Evaluation,treatment, and prevention of vitamin D deficiency; an Endocrine Society clinical practice guideline. JCEM. 2010; 96(7):1911-30. Anti-Nuclear Antibody Comment 2 See comment . [facility] Comment on above: For more information about Hep-2 cell patterns useSevenSnap Entertainment GmbHpatterAirSage.org, the official website for the InternationalConsensus on Antinuclear Antibody (BRAVO) Patterns (ICAP). ------A positive BRAVO result may occur in healthy individuals (lowtiter) or be associated with a variety of diseases. Seeinterpretation chart which is not all inclusive:Pattern Antigen Detected Suggested Disease Association Homogeneous DNA(ds,ss), SLE - High titers Nucleosomes, Histones Drug-induced SLE Speckled Sm, GLASS SETTER, SCL-70, SLE,MCTD,PSS (diffuse form), SS-A/SS-B Sjogrens Nucleolar SCL-70, PM-1/SCL High titers Scleroderma, PM/DM Centromere Centromere PSS (limited form) w/Crest syndrome variable Nuclear Dot Sp100,[id number]-mascmy Primary Biliary Cirrhosis Nuclear GP210, Primary Biliary CirrhosisMembrane phil A,B,C Performed at: [employer] [place], [place] [id number] Director: Alf Simpson PhD, Phone: [phone] C-Peptide 3.7 ng/mL 1.1-4.4 [facility] Comment on above: C-Peptide reference interval is for fasting patients.Performed at: [employer] [place], [place] [id number] Director: Alf Simpson PhD, Phone: [phone] Estimated GFR () > 60 mL/Min [facility] Comment on above: GFR estimated refere nce range: According to KDOQI guidelines, <60 ml/min/1.73m2 is sufficient to diagnose a patient with chronic kidney disease. Pharmacy Creatinine Clearance (Chem N/A [facility] Nucleated erythrocytes [Pres ence] in Blood by Automated countOrdered By: Tiarra Childs on 10-09-2022 Nucleated RBC Auto Ql (Bld) 0.1 /100{WBC} 0-0.5 [facility] Platelet mean volume Auto (B ld) [Entitic vol]Ordered By: Tiarra Childs on 10-09-2022 Platelet mean volume (Bld) [Entitic vol] 8.4 fL 6.3-10.7 [facility] Platelets Auto (Bld) [#/Vol] Ordered By: Tiarra Childs on 10-09-2022 Platelets (Bld) [#/Vol] 303 10*3/uL 150-450 [facility] Protein [Mass/volume] in Ser um or PlasmaOrdered By: Tiarra Childs on 10-09-2022 Protein [Mass/Vol] 6.4 g/dL 6.1-7.9 [facility] RBC Auto (Bld) [#/Vol]Ordere d By: Tiarra Childs on 10-09-2022 RBC (Bld) [#/Vol] 4.64 10*6/uL 3.60-5.00 [facility] Serum nuclear antibody titer Ordered By: Tiarra Childs on 10-09-2022 Nuclear Ab (S) [Titer] Positive . [facility] Comment on above: Negative <1:80 Borde rline 1:80 Positive >1:80 Serum or plasma alanine perry otransferase measurement without P-5'-P (enzymatic activiOrdered By: Tiarra Childs on 10-09-2022 ALT No additional P-5'-P [Catalytic activity/Vol] 12 U/L 10-60 [facility] Serum or plasma albumin/glob ulin mass ratioOrdered By: Tiarra Childs on 10-09-2022 Albumin/Globulin [Mass ratio] 1.8 {ratio} [facility] Serum or plasma alkaline blair sphatase measurement (enzymatic activity/volume)Ordered By: Tiarra Childs on 10-09-2022 ALP [Catalytic activity/Vol] 54 U/L 32-92 [facility] Serum or plasma amylase michael urement (enzymatic activity/volume)Ordered By: Tiarra Childs on 10-09-2022 Amylase [Catalytic activity/Vol] 63 U/L 28-100 [facility] Serum or plasma anion gap de terminationOrdered By: Tiarra Childs on 10-09-2022 Anion gap [Moles/Vol] 12.1 mmol/L 6.0-15.0 [facility] Serum or plasma aspartate am inotransferase measurement (enzymatic activity/volume)Ordered By: Tiarra Childs on 10-09-2022 AST [Catalytic activity/Vol] 20 U/L 10-42 [facility] Serum or plasma calcium michael urement (mass/volume)Ordered By: Tiarra Childs on 10-09-2022 Calcium [Mass/Vol] 9.6 mg/dL 8.2-10.2 [facility] Serum or plasma chloride mandeep surement (moles/volume)Ordered By: Tiarra Childs on 10-09-2022 Chloride [Moles/Vol] 102 mmol/L 95-114 [facility] Serum or plasma glucose michael urement (mass/volume)Ordered By: Tiarra Childs on 10-09-2022 Glucose [Mass/Vol] 66 mg/dL 70-100 [facility] Comment on above: ADA recommended refe rence rangeRandom Glucose Reference Range is dependent on time and content of last meal. Glucose of more than 200 mg/dL in a nonstressed, ambulatory subject supports the diagnosis of Diabetes Mellitus. Serum or plasma potassium me asurement (moles/volume)Ordered By: Tiarra Childs on 10-09-2022 Potassium [Moles/Vol] 3.9 mmol/L 3.5-5.1 [facility] Serum or plasma sodium measu rement (moles/volume)Ordered By: Tiarra Childs on 10-09-2022 Sodium [Moles/Vol] 138 mmol/L 136-146 [facility] Serum or plasma total biliru bin measurement (mass/volume)Ordered By: Tiarra Childs on 01-20-2023 Bilirubin [Mass/Vol] 1.1 mg/dL 0.3-1.2 [facility] Serum or plasma total carbon dioxide measurement (moles/volume)Ordered By: Tiarra Childs on 10-09-2022 CO2 [Moles/Vol] 27.8 mmol/L 22.0-30.0 [facility] Serum or plasma urea nitroge n measurement (mass/volume)Ordered By: Tiarra Childs on 10-09-2022 Urea nitrogen [Mass/Vol] 9 mg/dL 9 [facility] Serum speckled pattern antin uclear antibody (BRAVO) titerOrdered By: Tiarra Childs on 10-09-2022 Speckled nuclear Ab pattern (S) [Titer] 1:80 . [facility] Comment on above: ICAP nomenclature: A C-2,4,5,29 TSH DL <= 0.005 mIU/L QnOrde red By: Tiarra Childs on 10-09-2022 TSH Qn 0.90 m[IU]/L 0.45-5.33 [facility] Thyroxine (T4) free [Mass/vo lume] in Serum or PlasmaOrdered By: Tiarra Chidls on 10-09-2022 Free T4 [Mass/Vol] 0.76 ng/dL 0.61-1.12 [facility] Triiodothyronine (T3) Free [ Mass/volume] in Serum or PlasmaOrdered By: Tiarra Childs on 10-09-2022 Free T3 [Mass/Vol] 3.99 pg/mL 2.50-3.90 [facility] Urine microalbumin measureme nt with detection limit of 20 mg/L or less (mass/volume)Ordered By: Tiarra Childs on 10-09-2022 Albumin DL <= 20 mg/L (U) [Mass/Vol] 4.5 mg/dL 0.0-1.8 [facility] Urine microalbumin/creatinin e mass ratioOrdered By: Tiarra Childs on 10-09-2022 Albumin/Creatinine DL <= 20 mg/L (U) [Mass ratio] 36.0 mg/g 0.0-30.0 [facility] Comment on above: 30-300 mg/g indicate s an increased risk for diabetic nephropathy. Greater than 300 mg/g is consistent with clinical nephropathy. (Am. J. Kidney Disease 1995, 25:107) WBC Auto (Bld) [#/Vol]Ordere d By: Tiarra Childs on 10-09-2022 WBC (Bld) [#/Vol] 6.3 10*3/uL 3.8-11.6 [facility] CBC AUTO DIFFon 09-28-2022 BASO # 0.0 103/ul Normal 0.0-0.[address] [facility] Comment on above: Performed By: #### C BC #### [facility] [address] [address] [address] Angelica Smith Basophils/100 WBC (Bld) 0.5 % Normal 0.2-2.0 [facility] Comment on above: Performed By: #### C BC #### [facility] [address] [address] [address] Angelica Smith EO # 0.1 103/ul Normal 0.0-0.[address] [facility] Comment on above: Performed By: #### C BC #### [facility] [address] [address] [address] Angelica Smith Eosinophils/100 WBC (Bld) 1.6 % Normal 0.9-7.[address] [facility] Comment on above: Performed By: #### C BC #### [facility] [address] [address] [address] Angelica Smith Erythrocyte distribution width (RBC) [Ratio] 12.4 % Normal 11.0-15.[address] [facility] Comment on above: Performed By: #### C BC #### [facility] [address] [address] [address] Angelica Smith Hematocrit (Bld) [Volume fraction] 36.4 % Normal 36.0-48.[address] [facility] Comment on above: Performed By: #### C BC #### [facility] [address] [address] [address] Angelica Smith Hemoglobin (Bld) [Mass/Vol] 13.3 g/dL Normal 12.0-16.[address] [facility] Comment on above: Performed By: #### C BC #### [facility] [address] [place] [address] Dr. Angelica Smith IG # 0.01 10e3/ul Normal 0.00-0.[address] [facility] Comment on above: Performed By: #### C BC #### [facility] [address] [place] [address] Dr. Angelica Smith IG % 0.2 % Normal 0.0-0.[address] [facility] Comment on above: Performed By: #### C BC #### [facility] [address] [place] [address] Dr. Angelica Smith LYMPH # 2.0 103/ul Normal 1.2-3.[address] [facility] Comment on above: Performed By: #### C BC #### [facility] [address] [place] [address] Dr. Angelica Smith Lymphocytes/100 WBC (Bld) 32.6 % Normal 20.5-60.[address] [facility] Comment on above: Performed By: #### C BC #### [facility] [address] [place] [address] Dr. Angelica Smith MANUAL DIFF REQ NO Normal [facility] Comment on above: Performed By: #### C BC #### [facility] [address] [place] [address] Dr. Angelica Smith MCH (RBC) [Entitic mass] 30.3 pg Normal 26.7-34.[address] [facility] Comment on above: Performed By: #### C BC #### [facility] [address] [place] [address] Dr. Angelica Smith MCHC (RBC) [Mass/Vol] 36.5 g/dL Critically high 29.9-35.[address] [facility] Comment on above: Performed By: #### C BC #### [facility] [address] [place] [address] Dr. Angelica Smith MCV (RBC) [Entitic vol] 82.9 fL Normal 81.0-99.0 [facility] Comment on above: Performed By: #### C BC #### [facility] [address] [place] [address] Dr. Angelica Smith MONO # 0.4 103/ul Normal 0.3-0.[address] [facility] Comment on above: Performed By: #### C BC #### [facility] [address] [place] [address] Dr. Angelica Smith Monocytes/100 WBC (Bld) 6.0 % Normal 1.7-12.0 [facility] Comment on above: Performed By: #### C BC #### [facility] [address] [place] [address] Dr. Angelica Smith NEUT # 3.7 103/ul Normal 1.4-6.[address] [facility] Comment on above: Performed By: #### C BC #### [facility] [address] [place] [address] Dr. Angelica Smith Neutrophils/100 WBC (Bld) 59.1 % Normal 43.0-75.[address] [facility] Comment on above: Performed By: #### C BC #### [facility] [address] [place] [address] Dr. Angelica Smith Platelet mean volume (Bld) [Entitic vol] 9.5 fL Normal 9.5-13.[address] [facility] Comment on above: Performed By: #### C BC #### [facility] [address] [place] [address] Dr. Angelica Smith PLT 313 103/ul Normal 150-450 [facility] Comment on above: Performed By: #### C BC #### [facility] [address] [place] [address] Dr. Angelica Smith RBC 4.39 106/ul Normal 4.20-5.40 [facility] Comment on above: Performed By: #### C BC #### [facility] [address] [place] [address] Dr. Angelica Smith WBC 6.2 103/ul Normal 4.0-11.[address] [facility] Comment on above: Performed By: #### C BC #### [facility] [address] [place] [address] Dr. Angelica ESCOBAR URINE PROFILEon 3 Bilirubin Ql (U) Negative Normal NEGATIVE [facility] Comment on above: Performed By: #### HOSEA OJEDAICRO #### [facility] [address] [place] [address] Dr. Angelica Smith Clarity (U) CLEAR Normal CLEAR [facility] Comment on above: Performed By: #### Gladis BUSBY UMICRO #### [facility] [address] [place] [address] Dr. Angelica Smith Color (U) LT. YELLOW Normal YELLOW [facility] Comment on above: Performed By: #### TOREY OJEDARO #### [facility] [address] [place] [address] Dr. Angelica QUINTANILLA A micrscopic examina tion will be performed if indicated. Normal [facility] Comment on above: Performed By: #### Gladis BUSBY UMICRO #### [facility] [address] [place] [address] Dr. Angelica Smith Glucose Ql (U) Negative Normal NEGATIVE [facility] Comment on above: Performed By: #### HOSEA OJEDAICRO #### [facility] [address] [place] [address] Dr. Angelica Smith Hemoglobin Ql (U) MODERATE Abnormal NEGATIVE [facility] Comment on above: Performed By: #### HOSEA OJEDAICRO #### [facility] [address] [place] [address] Dr. Angelica Smith Ketones Ql (U) Negative Normal NEGATIVE [facility] Comment on above: Performed By: #### Gladis BUSBY UMICRO #### [facility] [address] [place] [address] Dr. Angelica Smith LEUKOCYTES Negative Normal NEGATIVE [facility] Comment on above: Performed By: #### Gladis BUSBY UMICRO #### [facility] [address] [place] [address] Dr. Angelica Smith Nitrite Ql (U) Negative Normal NEGATIVE [facility] Comment on above: Performed By: #### Gladis BUSBY UMICRO #### [facility] [address] [address] [address] Angelica Smith pH (U) 7.0 [pH] Normal 5-9 [facility] Comment on above: Performed By: #### Gladis BUSBY UMICRO #### [facility] [address] [address] [address] Angelica Smith SPEC GRAVITY 1.010 Normal 1.005-<=1. 025 [facility] Comment on above: Performed By: #### Gladis BUSBY, UMICRO #### [facility] [address] [address] [address] Angelica Smith UA PROTEIN Negative Normal NEGATIVE/ TRACE [facility] Comment on above: Performed By: #### Gladis BUSBY ICRO #### [facility] [address] [address] [address] Angelica Smith UR MICRO IND INDICATED Normal [facility] Comment on above: Performed By: #### Gladis BUSBY ICRO #### [facility] [address] [address] [address] Angelica Smith Urobilinogen Qn (U) 0.2 {Sujey'U}/dL Normal 0.2 - 1. [address] [facility] Comment on above: Performed By: #### Gladis BUSBY ICRO #### [facility] [address] [place] [address] Dr. Angelica Smith PREG QUANT HCGon 09-28-2022 HCG QUANT 1 mIU/mL Normal [facility] Comment on above: Performed By: #### B MP, PREGQNT ####[facility] [id number] [address]. Angelica Smith HCG RANGE SEE BELOW Normal [facility] Comment on above: Result Comment: 5-50 0.2-1 WEEK 50-500 1-2 WEEKS 100-5,000 2-3 WEEKS 500-10,000 3-4 WEEKS 1,000-50,000 4-5 WEEKS 10,000-100,000 5-6 WEEKS 15,000-200,000 6-8 WEEKS 10,000-100,000 2-3 MONTHS Performed By: #### B MP, PREGQNT ####[facility] [id number] [address]. Angelica Smith PROF CHEM 8 (BAS METB)on Anion gap [Moles/Vol] 11.5 mmol/L Normal Th e [facility] Comment on above: Performed By: #### B MP, PREGQNT #### [facility] [address] [place] [address] Dr. Angelica Smith Calcium [Mass/Vol] 9.0 mg/dL Normal 8.5-10.[address] [facility] Comment on above: Performed By: #### B MEGHAN, PREGQNT #### [facility] [address] [place] [address] Dr. Angelica Smith Chloride [Moles/Vol] 104 mmol/L Normal 98-[address] [facility] Comment on above: Performed By: #### B MEGHAN, PREGQNT #### [facility] [address] [place] [address] Dr. Angelica Smith CO2 [Moles/Vol] 27.0 mmol/L Normal 21.0-32.[address] [facility] Comment on above: Performed By: #### B MEGHAN, PREGQNT #### [facility] [address] [place] [address] Dr. Angelica Smith Creatinine [Mass/Vol] 0.71 mg/dL Normal 0.55-1.[address] [facility] Comment on above: Performed By: #### B MEGHAN, PREGQNT #### [facility] [address] [place] [address] Dr. Angelica Smith EGFR-AF FRENCH >60 Normal >=60 [facility] Comment on above: Performed By: #### B MEGHAN, PREGQNT #### [facility] [address] [place] [address] Dr. Angelica Smith EGFR-NON AF FRENCH >60 Normal >=[address] [facility] Comment on above: Performed By: #### B MP, PREGQNT #### [facility] [address] [place] [address] Dr. Angelica Smith Glucose [Mass/Vol] 92 mg/dL Normal 74-106 [facility] Comment on above: Performed By: #### B MEGHAN, PREGQNT #### [facility] [address] [place] [address] Dr. Angelica Smith Potassium [Moles/Vol] 3.5 mmol/L Normal 3.5-5.1 [facility] Comment on above: Performed By: #### B MEGHAN, PREGQNT #### [facility] [address] [place] [address] Dr. Angelica Smith Sodium [Moles/Vol] 139 mmol/L Normal 136-145 [facility] Comment on above: Performed By: #### B MEGHAN, PREGQNT #### [facility] [address] [place] [address] Dr. Angelica Smith Urea nitrogen [Mass/Vol] 8.0 mg/dL Normal 7.0-18.[address] [facility] Comment on above: Performed By: #### B MEGHAN, PREGQNT #### [facility] [address] [place] [address] Dr. Angelica Smith Urea nitrogen/Creatinine [Mass ratio] 11.3 mg/mg Normal [facility] Comment on above: Performed By: #### B MEGHAN, PREGQNT #### [facility] [address] [place] [address] Dr. Angelica Smith URINE MICROSCOPIC ONLYon BACTERIA NONE SEEN Normal NONE SEEN [facility] Comment on above: Performed By: #### TOREY OJEDARO #### [facility] [address] [place] [address] Dr. Angelica Smith Bacteria identified Cx Nom (U) NOT INDICATED Normal [facility] Comment on above: Performed By: #### Gladis BUSBY UMICRO #### [facility] [address] [place] [address] Dr. Angelica Smith CAST NONE SEEN Normal NONE SEEN [facility] Comment on above: Performed By: #### Gladis BUSBY UMICRO #### [facility] [address] [place] [address] Dr. Angelica Smith Crystals LM Nom (Urine sed) NONE SEEN Normal NONE SEEN [facility] Comment on above: Performed By: #### E RUR, UMICRO #### [facility] [address] [place] [address] Dr. Angelica Smith Epithelial cells LM Ql (Urine sed) FEW Abnormal NONE SEEN /RARE [facility] Comment on above: Performed By: #### E RUR, UMICRO #### [facility] [address] [place] [address] Dr. Angelica Smith MUCOUS NONE SEEN Normal NONE SEEN [facility] Comment on above: Performed By: #### E RUR, UMICRO #### [facility] [address] [place] [address] Dr. Angelica Smith RBC 0-2 Normal 0-2 [facility] Comment on above: Performed By: #### E RUR, UMICRO #### [facility] [address] [place] [address] Dr. Angelica Smith WBC NONE SEEN Normal NONE SEEN [facility] Comment on above: Performed By: #### E RUR, UMICRO #### [facility] [address] [place] [address] Dr. Angelica Smith PREG QUANT HCGon 09-24-2022 HCG QUANT 7 mIU/mL Normal [facility] Comment on above: Performed By: #### P REGQNT #### [facility] [address] [place] [address] Dr. Angelica Smith HCG RANGE SEE BELOW Normal [facility] Comment on above: Result Comment: 5-50 0.2-1 WEEK 50-500 1-2 WEEKS 100-5,000 2-3 WEEKS 500-10,000 3-4 WEEKS 1,000-50,000 4-5 WEEKS 10,000-100,000 5-6 WEEKS 15,000-200,000 6-8 WEEKS 10,000-100,000 2-3 MONTHS Performed By: #### P REGQNT #### [facility] [address] [place] [address] Dr. Angelica Smith PREG QUANT HCGon 09-22-2022 HCG QUANT 14 mIU/mL Normal [facility] Comment on above: Performed By: #### P REGQNT #### [facility] [address] [place], [place] [address] Dr. Angelica Smith HCG RANGE SEE BELOW Normal [facility] Comment on above: Result Comment: 5-50 0.2-1 WEEK 50-500 1-2 WEEKS 100-5,000 2-3 WEEKS 500-10,000 3-4 WEEKS 1,000-50,000 4-5 WEEKS 10,000-100,000 5-6 WEEKS 15,000-200,000 6-8 WEEKS 10,000-100,000 2-3 MONTHS Performed By: #### P REGQNT #### [facility] [address] [id number] Angelica Smith Albumin [Mass/volume] in Ser um or PlasmaOrdered By: Donavon Yanes on 08-11-2022 Albumin [Mass/Vol] 4.0 g/dL 3.2-5.5 [facility] Bilirubin Test strip Ql (U)O rdered By: Donavon Yanes on 08-11-2022 Bilirubin Ql (U) Negative Negative [facility] Color Auto (U)Ordered By: Kunal Yanes on 08-11-2022 Color (U) Yellow Yellow [facility] Creatinine and Glomerular fi ltration rate.predicted panel (S/P/Bld)Ordered By: Donavon Yanes on 08-11-2022 Creatinine [Mass/Vol] 0.71 mg/dL 0.44-1.03 [facility] Direct bilirubin measurement Ordered By: Donavon Yanes on 08-11-2022 Bilirubin.direct [Mass/Vol] 0.2 mg/dL 0.0-0.4 [facility] Estimated glomerular filtrat ion rate (GFR) non- AmericanOrdered By: Donavon Yanes on 08-11-2022 GFR/1.73 sq M.predicted among non-blacks MDRD (S/P/Bld) [Vol rate/Area] > 60 mL/Min [facility] Globulin Calc (S) [Mass/Vol] Ordered By: Donavon Yanes on 08-11-2022 Globulin (S) [Mass/Vol] 2.9 g/dL F [facility] Ketones Auto test strip (U) [Mass/Vol]Ordered By: Donavon Yanes on 08-11-2022 Ketones (U) [Mass/Vol] Negative Negative [facility] Nitrite Test strip Ql (U)Ord ered By: Donavon Yanes on 08-11-2022 Nitrite Ql (U) Negative Negative [facility] No Panel InformationOrdered By: Donavon Yanes on 08-11-2022 Estimated GFR () > 60 mL/Min [facility] Comment on above: GFR estimated refere nce range: According to KDOQI guidelines, <60 ml/min/1.73m2 is sufficient to diagnose a patient with chronic kidney disease. Pharmacy Creatinine Clearance (Chem N/A [facility] Protein Auto test strip (U) [Mass/Vol]Ordered By: Donavon Yanes on 08-11-2022 Protein (U) [Mass/Vol] Negative Negative [facility] Protein [Mass/volume] in Ser um or PlasmaOrdered By: Donavon Yanes on 08-11-2022 Protein [Mass/Vol] 6.9 g/dL 6.1-7.9 [facility] Serum or plasma alanine perry otransferase measurement without P-5'-P (enzymatic activiOrdered By: Donavon Yanes on 08-11-2022 ALT No additional P-5'-P [Catalytic activity/Vol] 12 U/L 10-60 [facility] Serum or plasma albumin/glob ulin mass ratioOrdered By: Donavon Yanes on 08-11-2022 Albumin/Globulin [Mass ratio] 1.4 {ratio} [facility] Serum or plasma alkaline blair sphatase measurement (enzymatic activity/volume)Ordered By: Donavon Yanes on 08-11-2022 ALP [Catalytic activity/Vol] 47 U/L 32-92 [facility] Serum or plasma anion gap de terminationOrdered By: Donavon Yanes on 08-11-2022 Anion gap [Moles/Vol] 8.3 mmol/L 6.0-15.0 [facility] Serum or plasma aspartate am inotransferase measurement (enzymatic activity/volume)Ordered By: Donavon Yanes on 08-11-2022 AST [Catalytic activity/Vol] 19 U/L 10-42 [facility] Serum or plasma calcium michael urement (mass/volume)Ordered By: Donavon Yanes on 08-11-2022 Calcium [Mass/Vol] 9.4 mg/dL 8.2-10.2 [facility] Serum or plasma chloride mandeep surement (moles/volume)Ordered By: Donavon Yanes on 08-11-2022 Chloride [Moles/Vol] 104 mmol/L 95-114 [facility] Serum or plasma glucose michael urement (mass/volume)Ordered By: Donavon Yanes on 08-11-2022 Glucose [Mass/Vol] 81 mg/dL 70-100 [facility] Comment on above: ADA recommended refe rence rangeRandom Glucose Reference Range is dependent on time and content of last meal. Glucose of more than 200 mg/dL in a nonstressed, ambulatory subject supports the diagnosis of Diabetes Mellitus. Serum or plasma non-glucuron idated bilirubin measurement (mass/volume)Ordered By: Donavon Yanes on 08-11-2022 Bilirubin.indirect [Mass/Vol] 2.0 mg/dL [facility] Serum or plasma potassium me asurement (moles/volume)Ordered By: Donavon Yanes on 08-11-2022 Potassium [Moles/Vol] 3.9 mmol/L 3.5-5.1 [facility] Serum or plasma sodium measu rement (moles/volume)Ordered By: Donavon Yanes on 08-11-2022 Sodium [Moles/Vol] 135 mmol/L 136-146 [facility] Serum or plasma total biliru bin measurement (mass/volume)Ordered By: Donavon Yanes on 08-11-2022 Bilirubin [Mass/Vol] 2.2 mg/dL 0.3-1.2 [facility] Comment on above: Samples from patient s who have taken Naproxen have shown spurious elevation in Total Bilirubin levels. A metabolite of Naproxen, O-desmethylnaproxen, has been shown to interfere with the Radhika method for measuring Total Bilirubin. Serum or plasma total carbon dioxide measurement (moles/volume)Ordered By: Donavon Yanes on 08-11-2022 CO2 [Moles/Vol] 26.6 mmol/L 22.0-30.0 [facility] Serum or plasma urea nitroge n measurement (mass/volume)Ordered By: Donavon Yanes on 08-11-2022 Urea nitrogen [Mass/Vol] 10 mg/dL 06-12 [facility] Specific gravity Auto test s trip (U) [Rel density]Ordered By: Donavon Yanes on 08-11-2022 Specific gravity (U) [Rel density] 1.007 1.001-1.03 0 [facility] Urine clarity by refractomet ry automatedOrdered By: Donavon Yanes on 08-11-2022 Clarity Refractometry automated (U) Clear Clear [facility] Urine glucose measurement by automated test strip (mass/volume)Ordered By: Donavon Yanes on 08-11-2022 Glucose Auto test strip (U) [Mass/Vol] Normal mg/dL Normal [facility] Urine hemoglobin detection b y automated test stripOrdered By: Donavon Yanes on 08-11-2022 Hemoglobin Auto test strip Ql (U) Negative Negative [facility] Urine leukocyte esterase det ection by automated test stripOrdered By: Donavon Yanes on 08-11-2022 Leukocyte esterase Auto test strip Ql (U) Negative Negative [facility] Urobilinogen Auto test strip (U) [Mass/Vol]Ordered By: Donavon Yanes on 08-11-2022 Urobilinogen (U) [Mass/Vol] Normal mg/dL Normal [facility] pH Auto test strip (U)Ordere d By: Donavon Yanes on 08-11-2022 pH (U) 6.0 [pH] 5.0-9.0 [facility] Albumin [Mass/volume] in Ser um or PlasmaOrdered By: Donavon Yanes on 06-18-2022 Albumin [Mass/Vol] 4.2 g/dL 3.2-5.5 [facility] Basophils Auto (Bld) [#/Vol] Ordered By: Donavon Yanes on 06-18-2022 Basophils (Bld) [#/Vol] 0.0 10*3/uL 0.0-0.2 [facility] Basophils/100 WBC Auto (Bld) Ordered By: Donavon Yanes on 06-18-2022 Basophils/100 WBC (Bld) 0.5 % . F [facility] Blood hemoglobin measurement (mass/volume)Ordered By: Donavon Yanes on 06-18-2022 Hemoglobin (Bld) [Mass/Vol] 13.3 g/dL 11.8-15.4 [facility] Blood leukocytes automated c ount (number/volume)Ordered By: Donavon Yanes on 06-18-2022 WBC (Bld) [#/Vol] 6.9 10*3/uL 4.5-11.0 [facility] Cholesterol [Mass/volume] in Serum or PlasmaOrdered By: Donavon Yanes on 06-18-2022 Cholesterol [Mass/Vol] 143 mg/dL 140-200 [facility] Comment on above: Chol less than 200 m g/dl low riskChol 201-239 mg/dl borderline riskChol 240 mg/dl and greater high risk Cholesterol in LDL Calc [Mas s/Vol]Ordered By: Donavon Yanes on 06-18-2022 Cholesterol in LDL [Mass/Vol] 83 mg/dL 0-100 [facility] Comment on above: LDL ATP III CLASSIFI CATIONLDL less than 100 mg/dL OptimalLDL 100-129 mg/dL Near or above optimalLDL 130-159 mg/dL Borderline highLDL 160-189 mg/dL HighLDL greater than 189 mg/dL Very high Cholesterol in VLDL Calc [Ma ss/Vol]Ordered By: Donavon Yanes on 06-18-2022 Cholesterol in VLDL [Mass/Vol] 14 mg/dL [facility] Creatinine [Mass/volume] in UrineOrdered By: Donavon Yanes on 06-18-2022 Creatinine (U) [Mass/Vol] 113.4 mg/dL [facility] Comment on above: No reference range e stablished Creatinine and Glomerular fi ltration rate.predicted panel (S/P/Bld)Ordered By: Donavon Yanes on 06-18-2022 Creatinine [Mass/Vol] 0.70 mg/dL 0.44-1.03 [facility] Eosinophils Auto (Bld) [#/Vo l]Ordered By: Donavon Yanes on 06-18-2022 Eosinophils (Bld) [#/Vol] 0.1 10*3/uL 0.0-0.45 [facility] Eosinophils/100 WBC Auto (Bl d)Ordered By: Donavon Yanes on 06-18-2022 Eosinophils/100 WBC (Bld) 0.9 % . [facility] Erythrocyte distribution wid th Auto (RBC) [Ratio]Ordered By: Donavon Yanes on 06-18-2022 Erythrocyte distribution width (RBC) [Ratio] 12.4 % 11.9-15.3 [facility] Estimated glomerular filtrat ion rate (GFR) non- AmericanOrdered By: Donavon Yanes on 06-18-2022 GFR/1.73 sq M.predicted among non-blacks MDRD (S/P/Bld) [Vol rate/Area] > 60 mL/Min [facility] Globulin Calc (S) [Mass/Vol] Ordered By: Donavon Yanes on 06-18-2022 Globulin (S) [Mass/Vol] 2.5 g/dL F [facility] Glucose mean value [Mass/vol ume] in Blood Estimated from glycated hemoglobinOrdered By: Donavon Yanes on 06-18-2022 Average glucose Estimated from glycated hemoglobin (Bld) [Mass/Vol] 100 mg/dL [facility] Hematocrit Auto (Bld) [Volum e fraction]Ordered By: Donavon Yanes on 06-18-2022 Hematocrit (Bld) [Volume fraction] 39.3 % 34.0-46.4 [facility] Hemoglobin A1c percentageOrd ered By: Donavon Yanes on 06-18-2022 HbA1c (Bld) [Mass fraction] 5.1 % 4.3-5.6 [facility] Comment on above: Increased risk for d iabetes: 5.7 - 6.4diabetes: >6.4glycemic control for adults with diabetes: <7.0 Laboratory - Hematology and Cell countsOrdered By: Donavon Yanes on 06-18-2022 Nucleated RBC/100 WBC (Bld) [Ratio] 0.1 % 0-0.5 [facility] Lymphocytes Auto (Bld) [#/Vo l]Ordered By: Donavon Yanes on 06-18-2022 Lymphocytes (Bld) [#/Vol] 1.9 10*3/uL 1.00-4.8 [facility] Lymphocytes/100 WBC Auto (Bl d)Ordered By: Donavon Yanes on 06-18-2022 Lymphocytes/100 WBC (Bld) 27.9 % . [facility] MCH Auto (RBC) [Entitic mass ]Ordered By: Donavon Yanes on 06-18-2022 MCH (RBC) [Entitic mass] 30.5 pg 24.7-34.3 [facility] MCHC Auto (RBC) [Mass/Vol]Or dered By: Donavon Yanes on 06-18-2022 MCHC (RBC) [Mass/Vol] 33.7 g/dL 32.0-35.0 [facility] MCV Auto (RBC) [Entitic vol] Ordered By: Donavon Yanes on 06-18-2022 MCV (RBC) [Entitic vol] 90.2 fL 80-100 F [facility] Monocytes Auto (Bld) [#/Vol] Ordered By: Donavon Yanes on 06-18-2022 Monocytes (Bld) [#/Vol] 0.3 10*3/uL 0.0-0.8 [facility] Monocytes/100 WBC Auto (Bld) Ordered By: Donavon Yanes on 06-18-2022 Monocytes/100 WBC (Bld) 4.9 % . F [facility] Neutrophils Auto (Bld) [#/Vo l]Ordered By: Donavon Yanes on 06-18-2022 Neutrophils (Bld) [#/Vol] 4.6 10*3/uL 1.8-7.7 [facility] Neutrophils/100 WBC Auto (Bl d)Ordered By: Donavon Yanes on 06-18-2022 Neutrophils/100 WBC (Bld) 65.8 % . [facility] No Panel InformationOrdered By: Donavon Yanes on 06-18-2022 Estimated GFR () > 60 mL/Min [facility] Comment on above: GFR estimated refere nce range: According to KDOQI guidelines, <60 ml/min/1.73m2 is sufficient to diagnose a patient with chronic kidney disease. Pharmacy Creatinine Clearance (Chem N/A [facility] Platelet mean volume Auto (B ld) [Entitic vol]Ordered By: Donavon Yanes on 06-18-2022 Platelet mean volume (Bld) [Entitic vol] 8.8 fL 6.3-10.7 [facility] Platelets Auto (Bld) [#/Vol] Ordered By: Donavon Yanes on 06-18-2022 Platelets (Bld) [#/Vol] 307 10*3/uL 150-450 [facility] Protein [Mass/volume] in Ser um or PlasmaOrdered By: Donavon Yanes on 06-18-2022 Protein [Mass/Vol] 6.7 g/dL 6.1-7.9 [facility] RBC Auto (Bld) [#/Vol]Ordere d By: Donavon Yanes on 06-18-2022 RBC (Bld) [#/Vol] 4.36 10*6/uL 3.60-5.00 [facility] Serum or plasma alanine perry otransferase measurement without P-5'-P (enzymatic activiOrdered By: Donavon Yanes on 06-18-2022 ALT No additional P-5'-P [Catalytic activity/Vol] 14 U/L 10-60 [facility] Serum or plasma albumin/glob ulin mass ratioOrdered By: Donavon Yanes on 06-18-2022 Albumin/Globulin [Mass ratio] 1.7 {ratio} [facility] Serum or plasma alkaline blair sphatase measurement (enzymatic activity/volume)Ordered By: Donavon Yanes on 06-18-2022 ALP [Catalytic activity/Vol] 49 U/L 32-92 [facility] Serum or plasma anion gap de terminationOrdered By: Donavon Yanes on 06-18-2022 Anion gap [Moles/Vol] 10.0 mmol/L 6.0-15.0 [facility] Serum or plasma aspartate am inotransferase measurement (enzymatic activity/volume)Ordered By: Donavon Yanes on 06-18-2022 AST [Catalytic activity/Vol] 19 U/L 10-42 [facility] Serum or plasma calcium michael urement (mass/volume)Ordered By: Donavon Yanes on 06-18-2022 Calcium [Mass/Vol] 9.4 mg/dL 8.2-10.2 [facility] Serum or plasma chloride mandeep surement (moles/volume)Ordered By: Donavon Yanes on 06-18-2022 Chloride [Moles/Vol] 103 mmol/L 95-114 [facility] Serum or plasma glucose michael urement (mass/volume)Ordered By: Donavon Yanes on 06-18-2022 Glucose [Mass/Vol] 86 mg/dL 70-100 [facility] Comment on above: ADA recommended refe rence rangeRandom Glucose Reference Range is dependent on time and content of last meal. Glucose of more than 200 mg/dL in a nonstressed, ambulatory subject supports the diagnosis of Diabetes Mellitus. Serum or plasma high density lipoprotein (HDL) cholesterol measurementOrdered By: Donavon Yanes on 06-18-2022 Cholesterol in HDL [Mass/Vol] 46 mg/dL 35-85 [facility] Comment on above: HDL CHOL ATP-III CLA SSIFICATION Cardiovascular RiskHDL > or equal to 60 mg/dL LOWHDL < 40 mg/dL HIGH Serum or plasma potassium me asurement (moles/volume)Ordered By: Donavon Yanes on 06-18-2022 Potassium [Moles/Vol] 3.7 mmol/L 3.5-5.1 [facility] Serum or plasma sodium measu rement (moles/volume)Ordered By: Donavon Yanes on 06-18-2022 Sodium [Moles/Vol] 136 mmol/L 136-146 [facility] Serum or plasma total biliru bin measurement (mass/volume)Ordered By: Donavon Yanes on 06-18-2022 Bilirubin [Mass/Vol] 1.9 mg/dL 0.3-1.2 [facility] Comment on above: Samples from patient s who have taken Naproxen have shown spurious elevation in Total Bilirubin levels. A metabolite of Naproxen, O-desmethylnaproxen, has been shown to interfere with the Oren-Jarek method for measuring Total Bilirubin. Serum or plasma total carbon dioxide measurement (moles/volume)Ordered By: Donavon Yanes on 06-18-2022 CO2 [Moles/Vol] 26.7 mmol/L 22.0-30.0 [facility] Serum or plasma total choles terol/high density lipoprotein (HDL) cholesterol mass ratOrdered By: Donavon Yanes on 06-18-2022 Cholesterol.total/Choles terol in HDL [Mass ratio] 3.1 {ratio} <5.0 [facility] Serum or plasma urea nitroge n measurement (mass/volume)Ordered By: Donavon Yanes on 06-18-2022 Urea nitrogen [Mass/Vol] 5 mg/dL 9-23 [facility] TSH DL <= 0.005 mIU/L QnOrde red By: Donavon Yanes on 06-18-2022 TSH Qn 0.74 m[IU]/L 0.45-5.33 [facility] Thyroxine (T4) free [Mass/vo lume] in Serum or PlasmaOrdered By: Donavon Yanes on 06-18-2022 Free T4 [Mass/Vol] 0.86 ng/dL 0.61-1.12 [facility] Triglyceride [Mass/volume] i n Serum or PlasmaOrdered By: Donavon Yanes on 06-18-2022 Triglyceride [Mass/Vol] 70 mg/dL 35-149 F [facility] Comment on above: TRIG ATP III [...] 20 mg/L (U) [Mass/Vol] 67.2 mg/dL 0.0-1.8 [facility] Urine microalbumin/creatinin e mass ratioOrdered By: Donavon Yanes on 06-18-2022 Albumin/Creatinine DL <= 20 mg/L (U) [Mass ratio] 592.0 mg/g 0.0-30.0 [facility] Comment on above: 30-300 mg/g indicate s an increased risk for diabetic nephropathy. Greater than 300 mg/g is consistent with clinical nephropathy. (Am. J. Kidney Disease 1995, 25:107) PAP ACOG PANEL 2: 21 to 28on 03-19-2022 . . Normal [facility] Comment on above: Performed By: #### [id number] #### [facility] [address] [place] [address] Dr. Angelica Smith Age Gdln ACOG Testing - [facility] Comment on above: Performed By: #### [id number] #### [facility] [address] [place] [address] Dr. Angelica Smith DIAGNOSIS: Comment [facility] Comment on above: Result Comment: NEGA TIVE FOR INTRAEPITHELIAL LESION OR MALIGNANCY. Performed By: #### [id number] #### [facility] [address] [place] [address] Dr. Angelica Smith Methodology: Comment [facility] Comment on above: Result Comment: This liquid based ThinPrep(R) pap test was screened with the use of an image guided system. Performed By: #### [id number] #### [facility] [address] [place] [address] Dr. Angelica Smith Note: Comment [facility] Comment on above: Result Comment: The Pap smear is a screening test designed to aid in the detection of premalignant and malignant conditions of the uterine cervix. It is not a diagnostic procedure and should not be used as the sole means of detecting cervical cancer. Both false-positive and false-negative reports do occur. . Performed By: #### [id number] #### [facility] [address] [place] [address] Dr. Angelica Smith Performed by: Comment [facility] Comment on above: Result Comment: Sherry Torres, Counter Molder (ASCP) Performed By: #### [id number] #### [facility] [address] [place] [address] Dr. Angelica Smith Reflex Criteria: Comment [facility] Comment on above: Result Comment: The HPV DNA reflex criteria were not met with this specimen result therefore, no HPV testing was performed. . Performed By: #### [id number] #### [facility] [address] [place] [address] Dr. Angelica Smith Specimen adequacy: Comment Normal [facility] Comment on above: Result Comment: Sati sfactory for evaluation. Endocervical and/or squamous metaplastic cells (endocervical component) are present. Performed By: #### [id number] #### [facility] [address] [address] [address] Angelica Smith Vital Signs Date Time Vital Sign Value Performing Clinician Facility 10-21-2023 09:48-0500 Body height 175.3 cm Raeann Warchol DENTIST/OWNER Work Phone: [facility] 10-21-2023 09:48-0500 Body mass index (BMI) [Ratio] 19.05 kg/m2 Raeann Warchol DENTIST/OWNER Work Phone: [facility] 10-21-2023 09:48-0500 Body temperature 98.2 [degF] Raeann Warchol DENTIST/OWNER Work Phone: [facility] 10-21-2023 09:48-0500 Body weight 58.51 kg Raeann Warchol DENTIST/OWNER Work Phone: [facility] 10-21-2023 09:48-0500 Diastolic blood pressure 60 mm[Hg] Raeann Warchol DENTIST/OWNER Work Phone: [facility] 10-21-2023 09:48-0500 Heart rate 81 /min Raeann Warchol DENTIST/OWNER Work Phone: [facility] 10-21-2023 09:48-0500 SaO2% (BldA) [Mass fraction] 100 % Raeann Warchol DENTIST/OWNER Work Phone: [facility] 10-21-2023 09:48-0500 Systolic blood pressure 112 mm[Hg] Raeann Warchol DENTIST/OWNER Work Phone: [facility] 04-10-2022 10:10-0400 Body height 172.72 cm Kirstin Hernandez Other [employer] Other 04-10-2022 10:10-0400 Body mass index (BMI) [Ratio] 20.37 kg/m2 Kirstin Hernandez Other [employer] Other 04-10-2022 10:10-0400 Body temperature 98.1 [degF] Kirstin Hernandez Other [employer] Other 04-10-2022 10:10-0400 Body weight 60.78 kg Kirstin Hernandez Other [employer] Other 04-10-2022 10:10-0400 Diastolic blood pressure 62 mm[Hg] Kirstin Hernandez Other [employer] Other 04-10-2022 10:10-0400 Respiratory rate 16 /min Kirstin Hernandez Other [employer] Other 04-10-2022 10:10-0400 SaO2% (BldA) [Mass fraction] 98 % Kirstin Hernandez Other [employer] Other 04-10-2022 10:10-0400 Systolic blood pressure 104 mm[Hg] Kirstin Hernandez Other [employer] Other 01-02-2022 11:10-0400 Body height 172.72 cm Kirstin Hernandez Other [employer] Other 01-02-2022 11:10-0400 Body mass index (BMI) [Ratio] 21.59 kg/m2 Kirstin Hernandez Other [employer] Other 01-02-2022 11:10-0400 Body temperature 98 [degF] Kirstin Hernandez Other [employer] Other 01-02-2022 11:10-0400 Body weight 64.41 kg Kirstin Hernandez Other [employer] Other 01-02-2022 11:10-0400 Diastolic blood pressure 68 mm[Hg] Kirstin Hernandez Other [employer] Other 01-02-2022 11:10-0400 Respiratory rate 16 /min Kirstin Hernandez Other [employer] Other 01-02-2022 11:10-0400 SaO2% (BldA) [Mass fraction] 99 % Kirstin Hernandez Other [employer] Other 01-02-2022 11:10-0400 Systolic blood pressure 104 mm[Hg] Kirstin Hernandez Other [employer] Other 09-03-2021 11:10-0500 Body height 172.72 cm Kirstin Hernandez Other [employer] Other 09-03-2021 11:10-0500 Body mass index (BMI) [Ratio] 21.89 kg/m2 Kirstin Hernandez Other [employer] Other 09-03-2021 11:10-0500 Body temperature 97.3 [degF] Kirstin Hernandez Other [employer] Other 09-03-2021 11:10-0500 Body weight 65.32 kg Kirstin Hernandez Other [employer] Other 09-03-2021 11:10-0500 Diastolic blood pressure 60 mm[Hg] Kirstin Hernandez Other [employer] Other 09-03-2021 11:10-0500 SaO2% (BldA) [Mass fraction] 95 % Kirstin Hernandez Other [employer] Other 09-03-2021 11:10-0500 Systolic blood pressure 104 mm[Hg] Kirstin Hernandez Other [employer] Other 07-07-2021 14:00-0400 Body height 172.72 cm Kirstin Diegofredy Other [employer] Other 07-07-2021 14:00-0400 Body mass index (BMI) [Ratio] 22.04 kg/m2 Kirstin Cortezfredy Other [employer] Other 07-07-2021 14:00-0400 Body temperature 98.1 [degF] Kirstin Diegofredy Other [employer] Other 07-07-2021 14:00-0400 Body weight 65.77 kg Kirstin Diegofredy Other [employer] Other 07-07-2021 14:00-0400 Diastolic blood pressure 70 mm[Hg] Kirstin Hernandez Other [employer] Other 07-07-2021 14:00-0400 Respiratory rate 18 /min Kirstin Hernandez Other [employer] Other 07-07-2021 14:00-0400 SaO2% (BldA) [Mass fraction] 99 % Kirstin Cortezfredy Other [employer] Other 07-07-2021 14:00-0400 Systolic blood pressure 110 mm[Hg] Kirstin Hernandez Other [employer] Other Encounters Encounter Date Encounter Type Care Provider Facility Start: 04-14-2024 End: 04-14-2024 ambulatory Clarisa MIKE Facility:[facility] Start: 03-30-2024 End: 03-30-2024 ambulatory GINNY CUELLO Not Available Start: 03-30-2024 End: 03-30-2024 Patient encounter procedure DENTIST/OWNER-C Raeann Ch Work Phone: [facility] [place] Work Phone: Start: 03-30-2024 End: 03-30-2024 ambulatory DENTIST/OWNER-C Raeann Brianchol Work Phone: [facility] Work Phone: Start: 03-27-2024 End: 03-27-2024 ambulatory JHONATHAN TALIA Not Available Start: 02-28-2024 End: 02-28-2024 ambulatory JHONATHAN TALIA Not Available Start: 02-04-2024 End: 02-04-2024 ambulatory RAEANN WARCHOL Not Available Start: 12-21-2023 End: 12-21-2023 ambulatory ESME JOSHI Not Available Start: 12-15-2023 ambulatory [facility] Work Phone: Start: 12-15-2023 [facility] Work Phone: Start: 10-21-2023 End: 10-21-2023 ambulatory RAEANN WARCHOL Not Available Start: 10-21-2023 End: 10-21-2023 Office outpatient visit 15 minutes Raeann Brianchol DENTIST/OWNER Work Phone: [facility] Comment on above: Attention-deficit hy peractivity disorder, other type (CMS/HCC) (Primary Dx); Bilateral impacted cerumen Start: 09-02-2023 End: 09-02-2023 ambulatory [facility] Facility:[facility] Start: 08-31-2023 End: 08-31-2023 ambulatory RAEANN WARCHOL Not Available Start: 08-19-2023 End: 08-19-2023 Patient encounter procedure Services [facility] Work Phone: [facility] Start: 08-19-2023 End: 08-19-2023 ambulatory Services [facility] Work Phone: [facility] Work Phone: Start: 08-18-2023 End: 08-18-2023 ambulatory RAEANN WARCHOL Not Available Start: 08-10-2023 End: 08-10-2023 Patient encounter procedure Services [facility] Work Phone: [facility] [place] Work Phone: Start: 08-10-2023 End: 08-10-2023 [facility] Work Phone: [facility] Work Phone: Start: 08-01-2023 End: 08-01-2023 ambulatory GINNY RAMESH Not Available Start: 07-20-2023 End: 07-20-2023 Patient encounter procedure [facility] Work Phone: [facility] [place] Work Phone: Start: 07-20-2023 End: 07-20-2023 ambulatory Services [facility] Work Phone: [facility] Work Phone: Start: 05-27-2023 End: 05-27-2023 Patient encounter procedure Services [facility] Work Phone: [facility] [place] Work Phone: Start: 05-27-2023 End: 05-27-2023 ambulatory Services [facility] Work Phone: [facility] Work Phone: Start: 01-12-2023 End: 01-12-2023 ambulatory [facility] Work Phone: [facility] Work Phone: Start: 01-12-2023 End: 01-12-2023 Departed Referred Services [facility] Work Phone: [facility] Start: 12-09-2022 End: 12-09-2022 ambulatory DO Kirstin Hernandez Work Phone: [facility] Work Phone: Start: 12-09-2022 End: 12-09-2022 Departed Referred DO Kirstin Hernandez Work Phone: [facility] Start: 12-04-2022 End: 12-04-[address] JHONATHAN PEDRAZA . Facility:[facility] Start: 11-26-2022 Encounter for other preprocedural examination DR JHONATHAN PEDRAZA . [facility] Start: 11-26-2022 End: 11-26-2022 ambulatory DO Kirstin Hernandez Work Phone: [facility] Work Phone: Start: 11-26-2022 End: 11-26-2022 Patient encounter procedure DO Kirstin Hernandez Work Phone: [facility]-CT Scan [facility] [place] Work Phone: Start: 11-24-2022 End: 11-25-2022 ambulatory PRIMITIVO CHAU Facility:[facility] Start: 11-24-2022 End: 11-25-2022 Encounter for other preprocedural examination PRIMITIVO CHAU Facility:[facility] Start: 10-29-2022 End: 10-29-2022 ambulatory DO Kirstin Hernandez Work Phone: [facility] Work Phone: Start: 10-29-2022 End: 10-29-2022 Patient encounter procedure DO Kirstin Hernandez Work Phone: [facility]Ultrasound [facility] [place] Work Phone: Start: 10-20-2022 End: 10-20-2022 ambulatory DO Kirstin Hernandez Work Phone: [facility] Work Phone: Start: 10-20-2022 End: 10-20-2022 Departed Referred DO Kirstin Hernandez Work Phone: [facility] Start: 10-09-2022 End: 10-09-2022 Departed Referred DO Kirstin Hernandez Work Phone: [facility] Start: 10-02-[address] JHONATHAN PEDRAZA . Facili ty:[facility] Start: 09-29-[address] JHONATHAN PEDRAZA . Facili ty:[facility] Start: 09-28-2022 End: 09-28-2022 ambulatory HUMPHREY HOLLAND Facility:[facility] Start: 09-23-[address] JHONATHAN PEDRAZA . Facili ty:[facility] Start: 09-22-2022 End: 10-20-[address] JHONATHAN PEDRAZA . Facility:[facility] Start: 08-11-2022 End: 08-11-2022 ambulatory DO Kirstin Hernandez Work Phone: [facility] Work Phone: Start: 08-11-2022 End: 08-11-2022 Patient encounter procedure DO Kirstin Hernandez Work Phone: [facility] [place] Start: 08-04-2022 End: 08-04-2022 ambulatory Kirstin Hernandez Other [employer] Other Start: 08-04-2022 Telephone encounter Kirstin Hernandez [facility] Start: 06-25-[address] JHONATHAN PEDRAZA . Facili ty:H1 Start: 06-18-2022 End: 06-18-2022 ambulatory DO Kirstin Hernandez Work Phone: [facility] Work Phone: Start: 06-18-2022 End: 06-18-2022 Patient encounter procedure DO Kirstin Hernandez Work Phone: [facility] [place] Start: 06-12-[address] JHONATHAN PEDRAZA . Facili ty:[facility]1 Start: 06-08-[address] JHONATHAN PEDRAZA . Facili ty:[facility]1 Start: 04-14-2022 End: 04-14-2022 ambulatory Kirstin Hernandez Other [employer] Other Start: 04-14-2022 Telephone encounter Kirstin Hernandez [facility] Start: 04-10-2022 End: 04-10-2022 ambulatory Kirstin Hernandez Other [employer] Other Start: 04-10-2022 Office outpatient vi sit 15 minutes Kirstin Hernandez [facility] Start: 03-24-[address] KIRSTIN HERNANDEZ Facilit y:H1 Start: 03-16-2022 End: 03-16-[address] JHONATHAN PEDRAZA . Facility:[facility]1 Start: 03-10-2022 End: 03-10-2022 ambulatory Kirstin Hernandez Other [employer] Other Start: 03-10-2022 Telephone encounter Kirstin Hernandez [facility] [place] Start: 01-02-2022 End: 01-02-2022 ambulatory Kirstin Hernandez Other [employer] Other Start: 01-02-2022 Office outpatient vi sit 25 minutes Kirstin Hernandez [facility] [place] Start: 01-02-2022 Telephone encounter Kirstin Hernandez [facility] [place] Start: 12-08-2021 End: 12-08-2021 ambulatory Kirstin Hernandez Other [employer] Other Start: 12-08-2021 Telephone encounter Kirstin Hernandez [facility] [place] Start: 12-02-2021 End: 12-02-2021 ambulatory Kirstin Hernandez Other [employer] Other Start: 12-02-2021 Telephone encounter Kirstin Hernandez [facility] [place] Start: 09-03-2021 End: 09-03-2021 ambulatory Kirstin Hernandez Other [employer] Other Start: 09-03-2021 Office outpatient vi sit 15 minutes Kirstin Hernandez [facility] [place] Start: 07-07-2021 Office outpatient vi sit 15 minutes Kirstin Hernandez [facility] [place] Procedures Date Procedure Procedure Detail Performing Clinician Start: 03-30-2024 Respiratory Panel (PCR) DENTIST/OWNER-Ashvin Ch Work Phone: Start: 08-10-2023 Respiratory Panel (PCR) Services [facility] Work Phone: Start: 12-09-2022 Respiratory Panel (PCR) DO Kirstin Hernandez Work Phone: Start: 11-26-2022 Computed tomography of abdomen and pelvis with contrast DO Kirstin Hernandez Work Phone: Start: 10-29-2022 Ultrasonography of b ilateral kidneys DO Kirstin Hernandez Work Phone: Start: 10-29-2022 US scan of gallbladder DO Kirstin Hernandez Work Phone: Plan of Treatment Date Care Activity Detail Author Start: 12-15-2023 Patient referral [facility] Work Phone: Start: 01-12-2023 Bacteria identified in Urine by Culture Urine Culture [facility] 17-Hydroxyprogestero ne [Mass/volume] in Serum or Plasma [facility] Alternaria alternata IgE Ab [Units/volume] in Serum [facility] Namibian house dust mite IgE Ab [Units/volume] in Serum [facility] Namibian Cato Ig E Ab [Units/volume] in Serum [facility] Androstenedione [Mas s/volume] in Serum or Plasma [facility] Aspergillus fumigatu s IgE Ab [Units/volume] in Serum [facility] Shaffer's yeast IgE Ab [Units/volume] in Serum [facility] Banana IgE Ab [Units /volume] in Serum [facility] Barley IgE Ab [Units /volume] in Serum [facility] Beef IgE Ab [Units/v olume] in Serum [facility] Bermuda grass IgE Ab [Units/volume] in Serum [facility] Boxelder IgE Ab [Uni ts/volume] in Serum [facility] Cat dander IgG Ab [Units/volume] in Serum [facility] Cheese cheddar type IgE Ab [Units/volume] in Serum [facility] Chicken meat IgE Ab [Units/volume] in Serum [facility] Cladosporium herbaru m IgE Ab [Units/volume] in Serum [facility] Cockroach IgE Ab [Units/volume] in Serum [facility] Common Ragweed IgE A b [Units/volume] in Serum [facility] [place] IgE Ab [Units/v olume] in Serum [facility] Gaines IgE Ab [Units/volume] in Serum [facility] Cow milk IgE Ab [Uni ts/volume] in Serum [facility] Dog dander IgE Ab [Units/volume] in Serum [facility] Egg white IgE Ab [Units/volume] in Serum [facility] Estradiol (E2) [Mass /volume] in Serum or Plasma [facility] house dust mite IgE Ab [Units/volume] in Serum [facility] Gluten IgE Ab [Units /volume] in Serum [facility] HLA DQ antigen typing [facility] IgE [Units/volume] i n Serum or Plasma [facility] Insulin [Units/volum e] in Serum or Plasma [facility] Insulin [Units/volum e] in Serum or Plasma [facility] Lutropin [Units/volu me] in Serum or Plasma [facility] Mountain Juniper IgE Ab [Units/volume] in Serum [facility] Mouse urine proteins IgE Ab [Units/volume] in Serum [facility] Oat IgE Ab [Units/vo lume] in Serum [facility] [place] IgE Ab [Units /volume] in [facility] Patient referral [facility] Work Phone: Peanut IgE Ab [Units /volume] in Serum [facility] Pecan or [place] Domo e IgE Ab [Units/volume] in Serum [facility] Penicillium notatum IgE Ab [Units/volume] in Serum [facility] Pork IgE Ab [Units/v olume] in Serum [facility] Potato IgE Ab [Units /volume] in Serum [facility] Progesterone [Mass/v olume] in Serum or Plasma [facility] Rice IgE Ab [Units/v olume] in Serum [facility] Rough Pigweed IgE Ab [Units/volume] in Serum [facility] [place]on IgE Ab [Units/vo lume] in Serum [facility] Saltwort IgE Ab [Uni ts/volume] in Serum [facility] Sheep Haskins IgE Ab [Units/volume] in Serum [facility] Silver Birch IgE Ab [Units/volume] in Serum [facility] Soybean IgE Ab [Unit s/volume] in Serum [facility] Testosterone Free [Mass/volume] in Serum or Plasma [facility] Testosterone Free [Mass/volume] in Serum or Plasma [facility] Donavon IgE Ab [Unit s/volume] in Serum [facility] Tomato IgE Ab [Units /volume] in Serum [facility] Beemer IgE Ab [Units /volume] in Serum [facility] Wheat IgE Ab [Units/ volume] in Serum [facility] White Marquez IgE Ab [Units/volume] in Serum [facility] White Elm IgG Ab [Units/volume] in Serum [facility] White mulberry IgE A b [Units/volume] in Serum [facility] New Albin IgE Ab [Units/volume] in Serum [facility] Immunizations Immunization Date Immunization Notes Care Provider Shahnaz villalpando 07-20-2023 Influenza, injectable, Madin Melida Canine Kidney, preservative free, quadrivalent Raeann Warchol DENTIST/OWNER Work Phone: [facility] 07-10-2022 influenza, injectable, quadrivalent, preservative free Raeann Warchol DENTIST/OWNER Work Phone: [facility] 07-07-2022 tetanus toxoid, reduced diphtheria toxoid, and acellular pertussis vaccine, adsorbed Raeann Warchol DENTIST/OWNER Work Phone: [facility] 01-13-2022 varicella virus vaccine Raeann Warchol DENTIST/OWNER Work Phone: [facility] 12-23-2021 tuberculin skin test; purified protein derivative solution, intradermal Raeann Warchol DENTIST/OWNER Work Phone: [facility] 08-18-2021 COVID-19 Vaccine Pfizer - Documentation Purposes Only Kirstin Hernandez Other [facility] 07-28-2021 COVID-19 Vaccine Pfizer - Documentation Purposes Only Kirstin Hernandez Other [facility] 06-11-2021 diphtheria, tetanus toxoids and pertussis vaccine Kirstin Hernandez Other [employer] [facility] [employer] Other 06-11-2021 measles, mumps and rubella virus vaccine Kirstin Hernandez Other [employer] Other 07-17-2019 influenza, seasonal, injectable Patient Objection Kirstin Hernandez Other [employer] Other 11-09-2014 Rocephin 500 mg Kirstin Hernandez Other [employer] Other 06-09-2012 hepatitis A vaccine, pediatric/adolescent dosage, 2 dose schedule Kirstin Hernandez Other [employer] Other 06-09-2012 human papilloma virus vaccine, quadrivalent Kirstin Hernandez Other [employer] Other 06-09-2012 meningococcal polysaccharide (groups A, C, Y and W-135) diphtheria toxoid conjugate vaccine (MCV4P) Kirstin Hernandez Other [employer] Other 06-09-2012 tetanus toxoid, reduced diphtheria toxoid, and acellular pertussis vaccine, adsorbed Kirstin Hernandez Other [employer] Other 04-01-2004 diphtheria, tetanus toxoids and acellular pertussis vaccine, unspecified formulation Kirstin Hernandez Other [facility] 04-01-2004 measles, mumps and rubella virus vaccine Kirstin Hernandez Other [employer] Other 04-01-2004 poliovirus vaccine, inactivated Kirstin Hernandez Other [employer] Other 04-01-2004 poliovirus vaccine, unspecified formulation [facility] 08-20-2000 diphtheria, tetanus toxoids and acellular pertussis vaccine, unspecified formulation Kirstin Hernandez Other [employer] Other 08-20-2000 haemophilus influenzae type b vaccine, conjugate unspecified formulation Kirstin Hernandez Other [employer] Other 08-20-2000 measles, mumps and rubella virus vaccine Kirstin Hernandez Other [employer] Other 08-20-2000 poliovirus vaccine, inactivated Kirstin Hernandez Other [email or web address] Other 08-20-2000 poliovirus vaccine, unspecified formulation [facility] 08-20-2000 varicella virus vaccine Kirstin Hernandez Other [employer] Other 01-23-2000 diphtheria, tetanus toxoids and acellular pertussis vaccine, unspecified formulation Kirstin Hernandez Other [employer] Other 01-23-2000 haemophilus influenzae type b conjugate and Hepatitis B vaccine Kirstin Hernandez Other [employer] Other 1999 diphtheria, tetanus toxoids and acellular pertussis vaccine, unspecified formulation Kirstin Hernandez Other [employer] Other 1999 haemophilus influenzae type b conjugate and Hepatitis B vaccine Kirstin Hernandez Other [employer] Other 1999 poliovirus vaccine, inactivated Kirstin Hernandez Other [employer] Other 1999 poliovirus vaccine, unspecified formulation [facility] 1999 diphtheria, tetanus toxoids and acellular pertussis vaccine, unspecified formulation Kirstin Hernandez Other [employer] Other 1999 haemophilus influenzae type b conjugate and Hepatitis B vaccine Kirstin Hernandez Other [employer] Other 1999 poliovirus vaccine, inactivated Kirstin Hernandez Other [employer] [email or web address] Other 1999 poliovirus vaccine, unspecified formulation [facility] NEGATED: Highlighted row has not occurred! 1 influenza, seasonal, injectable Patient Objection Kirstin Hernandez Other [employer] Other NEGATED: Highlighted row has not occurred! 9 influenza, seasonal, injectable Patient Objection Kirstin Hernandez Other [employer] Other Payers Date Payer Category Payer Medicaid [employer] [id number] 2023-Present [address] [place] [address] [id number] 2021 Unknown BCBS BCBS [id number] 2021-Present [phone] [address] [place] [address] [id number]. [id number] 1999 Unknown [id number] 2.16.840.1.864288.3.579.2. 593 1999 Unknown [id number] 2.16.840.1.031941.3.579.2. 593 1999 Unknown [id number] 2.16.840.1.788270.3.579.2. 593 1999 Unknown [id number] 2.16.840.1.444087.3.579.2. 593 1999 Unknown [id number] 2.16.840.1.507250.3.579.2. 593 1999 Unknown [id number] 2.16.840.1.172072.3.579.2. 593 1999 Unknown [id number] 2.16.840.1.056949.3.579.2. 593 1999 Unknown [id number] 2.16.840.1.783664.3.579.2. 593 1999 Unknown [id number] 2.16.840.1.120596.3.579.2. 593 1999 Unknown [id number] 2.16.840.1.911440.3.579.2. 593 1999 Unknown [id number] 2.16.840.1.752369.3.579.2. 593 1999 Unknown [id number] 2.16.840.1.758072.3.579.2. 593 1999 Unknown [id number] 2.16.840.1.943631.3.579.2. 718 1999 Unknown [id number] 2.16.840.1.660311.3.579.2. 125 1999 Unknown [id number] 2.16.840.1.333508.3.579.2. 1258 1999 Unknown [id number] 2.16.840.1.351021.3.579.2. 125 1999 Unknown [id number] 2.16.840.1.896323.3.579.2. 1258 1999 Unknown [id number] 2.16.840.1.904168.3.579.2. 125 1999 Unknown [id number] 2.16.840.1.805529.3.579.2. 125 1999 Unknown [id number] 2.16.840.1.712059.3.579.2. 125 1999 Unknown [id number] 2.16.840.1.713912.3.579.2. 1258 1999 Unknown [id number] 2.16.840.1.689426.3.579.2. 1258 1999 Unknown [id number] 2.16.840.1.613122.3.579.2. 125 1999 Unknown [id number] 2.16.840.1.791923.3.579.2. 1259 1999 Unknown [id number] 2.16.840.1.157167.3.579.2. 1259 1959 [facility] [id number] 2.16.840.1.718681. 1959 Private Health Insurance [id number] 2.16.840.1.136706.19 1959 Private Health Insurance [id number] Self-pay [id number] Unknown [id number] 2.16.840.1.254805.3.579.2. 531 Unknown [id number] 2.16.840.1.776059.3.579.2. 531 Unknown [id number] 2.16.840.1.278766.3.579.2. 531 Unknown [id number] 2.16.840.1.776223.3.579.2. 531 Unknown [id number] 2.16.840.1.449786.3.579.2. 531 Social History Date Type Detail Facility Unknown if ever smoked [facility] [employer] Other Start: 10-21-2023 Sex Assigned At [employer] [facility] [employer] Other Start: 1999 Sex Assigned At Female [facility] Start: 10-21-2023 Tobacco smoking status [facility] Smokes tobacco daily [facility] Start: 10-21-2023 Tobacco use and exposure Smokeless tobacco non-user [facility] Start: 10-21-2023 Alcohol intake Lifetime non-d nany (finding) [facility] Start: 10-21-2023 History of Social function [facility] Start: 07-20-2023 Tobacco Comment Pt vapes [facility] Start: 08-29-2023 Alcohol Comment caffeine intak e: 2-3 cups per day of soda/pop ; more than 4 cups per day [facility] Start: 1999 Sex Assigned At Not on file [facility] Start: 11-10-2017 Tobacco smoking status NHIS Never smoked tobacco (finding) [facility] NEGATED: Highlighted rowStart: DORINA History of tobacco use Passive smoker [facility] Clinical Notes 12-02-2011 to 12-15-2023 Raeann Ch, JEAN CLAUDE - 10/21/2023 9:40 AM ESTPatient Instructions Note Date & Type Note Facility 12-15-2023 Hospital Discharg e instructions Ambulatory OrdersReferral to Orthopedics Time Frame: 12/15/23, Location: None [facility] Work Phone: 10-21-2023 History of Presen t illness Narrative SUBJECTIVE Le Rocha is a 23 y.o. female who [...] follow-up: [facility] . documented in this encounter [facility] 10-21-2023 Instructions Raeann Ch NP - 10/21/2023 9:40 AM EST PATIENT EDUCATION: ADHD Current drug therapy discussed during office visit. Call office for worsening of symptoms for follow-up visit. Per [facility] regulations, follow-ups have to occur at least [...] for repeat lavage. documented in this encounter [facility] 09-03-2023 Note [id number] [facility] 09-02-2023 Note Patient Education Ma terials Follows: [facility] 12-04-2022 Note OPERATIVE NOTE OPERATION DATE: 12/04/2022 PROCEDURE: Robotic assisted diagnostic laparoscopy. PREOPERATIVE DIAGNOSIS: Pelvic pain. POSTOPERATIVE DIAGNOSIS: Pelvic pain. ANESTHESIA: General. SURGEON: Jhonathan Pedraza D.O. [employer]AN[employer] SERVER: STEPHON Weber URINE OUTPUT: Yellow and clear. [...] to Recovery Room in stable condition. [facility] 08-04-2022 Evaluation note Encounter Date Diagnosis Assessment Notes Jul, ADHD (attention deficit hyperactivity disorder) (ICD-10 - F90.9) Jul, Anxiety (ICD-10 - F41.9) [employer] Other 07-22-2022 Evaluation note* Encounter Date Diagnosis [...] going to have another one done in May (2021) by Dr. Pedraza. [employer] Other 06-21-2022 Evaluation note* Encounter Date Diagnosis Assessment Notes Treatment Notes Treatment Clinical Notes Feb, Fatigue (ICD-10 - R53.83) Feb, Weakness (ICD-10 - R53.1) Feb, Chest pain (ICD-10 - R07.9) [employer] Other 04-15-2022 Evaluation note* Encounter Date Diagnosis [...] other issues that take precedence. Dec, Other longterm (current) drug therapy (ICD-10 - Z79.899) Dec, [...] the symptoms so they can be documented. [employer] Other 03-15-2022 Evaluation note* Encounter Date Diagnosis Assessment Notes Treatment Notes Treatment Clinical Notes Nov, ADHD (attention deficit hyperactivity disorder) (ICD-10 - F90.9) [employer] Other 12-15-2021 Evaluation note* Encounter Date Diagnosis [...] that her HGB has improved. Aug, Other longterm (current) drug therapy (ICD-10 - Z79.899) After she has been on the Adderall for a few weeks she should have lab drawn to be sure the medication is not affecting liver or kidneys, she can call for results. [employer] Other 10-18-2021 Evaluation note* Encounter Date Diagnosis [...] have EMDR done through her new counselor. [employer] Other 03-14-2012 History general Narrative - Reported* Type Description Date Medical History 12-02-2011 Echo - Structurally No rmal Heart Medical History 12-02-11 CXR - Negative Medical History 12-02-11 Echo- Structurally [place] [facility] Medical History Pre & Post Spirometry Medical History ADD Medical History X-Ray Left Ankle 08-07-13; [facility] Medical History PCOS found on ultrasound Medical History bipolar -2 Surgical History No Surgical history information Hospitalization History [facility] - chest pain s 08/12/15 Hospitalization History [facility] panic attack 08/17/15 [employer] [facility] [employer] Other [id number] History general Narrative - Reported* Type Description Date Medical History 12-02-2011 Echo - Structurally No rmal Heart Medical History 12-02-11 CXR - Negative Medical History 12-02-11 Echo- Structurally [facility] Medical History Pre & Post Spirometry Medical History ADD Medical History X-Ray Left Ankle 08-07-13; [facility] Medical History PCOS found on ultrasound Medical History bipolar -2 Medical History 10/07/21 pt states sh e had seizures 3-4 years ago that were stress induced Surgical History No Surgical history information Hospitalization History [facility] - chest pain s 08/12/15 Hospitalization [facility] panic attack 08/17/15 [employer] Other Evaluation noteNo [employer] Other Evaluation noteNo assessment information available [facility] Work Phone: Evaluation note* Diagnosis Attention-deficit hyperactivity disorder, other type (CMS/HCC)- Primary Bilateral impacted cerumen Impacted cerumen [facility] Narrativemed refill Adderall, discuss multiple issues, see treatment plan for further informationNoSquee Other Advance Directives No Advanced Directives Records [...] J06.9 Chief Complaint O03.9 R63.4 J06.9 n91.2 Chief Complaint R05.1 R09.81 Summary Purpose Family History No Family History [...] content) Team Status: Active Member Role Status Dates UNA Ruiz Primary Care Provider Active Team Status: Inactive Member Role Status Dates UNA Ruiz Primary Care Provider Active Start: March 30, 2024 End: March 30, 2024 Ginny Cuello APRN DENTIST/OWNER-C Attending Provider Act michelle Start: March 30, 2024 End: March 30, 2024 Team Status: Active Member Role Status Dates Raeann Ch NP-C Primary Care Provider Active Start: December 15, 2023 iKrstin Hernandez , Attending Provider Active Star t: December 15, 2023 Team Status: Inactive Member Role Status Dates Kirstin Hernandez , Primary Care Provider Active Donavon Yanes DO Attending Provider Active Team Status: Active Member Role Status Dates Kirstin Hernandez , DO Primary Care Provider Active Team Status: Inactive Member Role Status Dates Services [facility] Primary Care Provider Active Tiarra Childs NP-C Attending Provide r Active Team Status: Inactive Member Role Status Dates Kirstin Hernandez , DO Primary Care Provider Active Tiarra Childs DENTIST/OWNER-C Attending Provide r Active Team Status: Active Member Role Status Dates Services [facility] Primary Care Provider Active Team Status: Inactive Member Role Status Dates Tiarra Childs NP-C Attending Provide r Active Services [facility] Primary Care Provider Active Team Status: Inactive Member Role Status Dates Tiarra Childs DENTIST/OWNER-C Attending Provide r Active Team Status: Active Member Role Status Dates [facility] Primary Care Provider Ac tive Team Status: Inactive Member Role Status Dates [facility] Primary Care Provider Ac tive Tiarra Childs , DENTIST/OWNER-C Attending Provide r Active Team Status: Inactive Member Role Status Dates [facility] Primary Care Provider Ac tive Raeann Ch DENTIST/OWNER-C Attending Provider Active Team Status: Inactive Member Role Status Dates Raeann Ch NP-Ashvin Primary Care Provider, Attending Pr ovider Active [employer] Relationship Specialty Start Date End Date Yovany Crawley MD [address] [place] [address] PCP - General Family Medicine 07/20/23 Raeann Ch NP [address] [place] [address] Nurse Practitioner Family Medicine 07/20/23 Goals (unrecognized section and content) Goals may be documented in a n alternate section INFORMATION SOURCE (unrecogn ized section and content) DATE CREATED AUTHOR 01/29/2023 [facility] DATE CREATED AUTHOR AUTHOR'S ORGANIZ ATION 09/09/2023 [facility] [place] DATE CREATED AUTHOR AUTHOR'S ORGANIZ ATION 04/05/2024 [facility] DATE CREATED AUTHOR AUTHOR'S ORGANIZ ATION 04/15/2024 [facility] DATE CREATED AUTHOR AUTHOR'S ORGANIZ ATION 04/19/2024 Montoya Nikos [facility] DATE CREATED AUTHOR AUTHOR'S ORGANIZ ATION 04/25/2024 [facility] FOR RECORDS PERTAINING TO PATIENTS WHO ARE [...] BE BASED ON THE PRIMARY CLINICAL RECORDS. [facility] [employer]. provides no warranty or guarantee of the accuracy or completeness of information in this document.
== END 2024-05-02 15:53 | disposition home or self-care (01) ==
LOC: US 15:52
PROVIDERS: Visit Provider Obstetrics & Gynecology
DX: Z36.89 Encounter for other specified antenatal screening (principal); Z3A.20 20 weeks gestation of pregnancy; O44.42 Low lying placenta NOS or without hemorrhage, second trimester
CPT/HCPCS: 76805; 76817

== ENCOUNTER 2024-06-14 14:55 | Outpatient (OUT) | payer BC, OTHER, SELFPAY ==
--- NOTE | 2024-06-14 15:02 | US_ITS ---
The [address] [address] Patient Name: CHARLETTE ROCHA MRN: [id number] date: 2000 Sex: F Assigned Patient Location: US Current Patient Location: Accession/Order Number: [id number] Exam Date: 06/14/2024 15:04 Report Date: 06/15/2024 04:08 At the request of: TESSA MELGAR Procedure: US OB incomplete anatomy EXAM: US OB incomplete anatomy, US OB transvaginal HISTORY: Encounter For Follow Up Ultrasound Of Anatomy Z36.2 COMPARISON: Ultrasound OB anatomy 05/02/2024 TECHNIQUE: Transabdominal and endovaginal ultrasound. FINDINGS: Presentation: Cephalic Heart rate: 136 bpm Placenta: Posterior with lower margin 4.1 cm from os. Cervix: 4.0 cm in length, closed. Anatomy: Four-chamber heart, cardiac outflow tracts, upper extremities GA: 27 weeks 1 day [place] 09/12/2024 US/US OB incomplete anatomy IMPRESSION: 1. Single live intrauterine . 2. Adequate visualization of the four-chamber heart, cardiac outflow tracts, and upper extremities. No appreciable abnormality. Electronically authenticated by: KORI COVINGTON Date: 06/15/2024 04:08
--- OUTSIDE RECORDS SUMMARY | 2024-06-14 15:09 | XMS_ITS | CCD ---
Author Organization [facility] Care Team Providers Care Microarray Operations Vice President Name Role Phone Kirstin Hernandez Unavailable David, DO [place] Primary Care Provider [phone] DO Donavon Yanes Attending Provider [phone] David, DO [place] Primary Care Provider DO Donavon Yanes Attending Provider David, DO [place] Primary Care Provider DO Donavon Yanes Attending Provider UNA Childs Attending Pr ovider [facility] Primary Care Provider DO Kirstin Hernandez Primary Care Provider David, DO [place] Primary Care Provider [phone] UNA Childs Attending Pr ovider [facility] Primary Care Provider UNA Childs Attending Pr ovider [facility] Primary Care Provider TALIA .DR ZARATE Attending [...] Unavailable HUMPHREY HOLLAND Admitting Unavailable GIRVIN, DR FUTLON Primary Care Unavailable HUMPHREY HOLLAND Attending Unavailable HUMPHREY HOLLAND Consulting Unavailable CHAU PRIMITIVO Consulting Unavailable GIRVIN, DR [place]ON Primary Care Unavailable TALIA ., DR ZARATE Admitting Unavailable TALIA ., DR ZARATE Attending Unavailable [facility] Care [facility] ider UNA Childs Attending Pr ovider UNA Jang Attending Provider [phone] [facility] Primary Care [facility] ider UNA Childs Attending Pr ovider UNA Jang Attending Provider [phone] UNA Jang Primary Care Provider Yovany Crawley MD Primary Care Provider Jing COMPRESSOR STATION CHIEF ENGINEER, Raeann Unavailable UNA Jang Primary Care Provider HEIDI Cuello Attending Provider Clarisa MIKE Attending Unavailable DO Andrzej Grace Attending Provider [phone] WARCHOL, RAEANN Attending Unavailable WARCHOL, RAEANN Attending Unavailable DIDION GINNY L Attending Unavailable DIDION GINNY L Referring Unavailable JOSHIESME Attending Unavailable JOSHIESME Referring Unavailable WARCHOL, RAEANN Referring Unavailable WARCHOL, RAEANN Attending Unavailable JHONATHAN PEDRAZA Attending Unavailable JHONATHAN PEDRAZA Attending Unavailable LAGINNY GARCIA R Attending Unavailable ROHAN CHAUHAN Attending Unavailable Warchol, Raeann M Primary Care Unavailable YokastaUNA harris Attending Unavailable YokastaUNA Admitting Unavailable Armstrong, Tyler L Admitting Unavailable Armstrong, Tyler L Primary Care Unavailable Armstrong, Tyler L Attending Unavailable Warchol, Raeann Attending Unavailable Warchol, Raeann Admitting Unavailable Warchol, Raeann Primary Care Unavailable Visci, Andrzej Admitting Unavailable Visci, Andrzej Attending Unavailable Warchol, Raeann Primary Care Unavailable Warchol, Raeann Attending Unavailable Warchol, Raeann Admitting Unavailable Warchol, Raeann Primary Care Unavailable Warchol, Raeann Attending Unavailable Warchol, Raeann Admitting Unavailable [facility] Primary Care U navailable Ginny Cuello Admitting Unavailable Lause, Ginny Theodora Attending Unavailable Warchol, Raeann Primary Care Unavailable Allergies Allergy Classification Reported Allergen(s) Allergy Type Date of Onset Reaction(s) Facility (10 sources) Citalopram Drug Allergy headaches, upset [facility] Other (1 source) Citalopram Drug Allergy 3 [facility] Repository Medications Current Medications Medication Drug Class(es) Dates Sig (Normalized) Sig (Original) [id number] 200 actuat albuterol 0.09 mg/actuat metered dose [...] Active lisdexamfetamine dimesylate 30 mg oral capsule (9 sources) Central Nervous System Stimulant Start: 2022 [...] Date Documented Da te Episodic/Chronic Abdominal pain (7 sources) Unspecified abdominal pain; Translations: [Pelvic and perineal pain] Onset: 01-02-2022 Resolved: 01-02-2022 Episodic Adjustment disorders (10 sources) Reaction to severe stress, unspecified; Translations: [Stress] Chronic Anxiety disorders (13 sources) Anxiety disorder, unspecified; Translations: [Anxiety] Onset: 09-03-2021 Resolved: 09-03-2021 Chronic Asthma (2 sources) Uncomplicated mild persistent asthma; Translations: [Mild persistent asthma, uncomplicated] Onset: 07-19-2023 07-19-2023 Chronic Attention-deficit, conduct, and disruptive behavior disorders (16 sources) Attention deficit hyperactivity disorder; Translations: [Attention-deficit hyperactivity disorder, unspecified type] Onset: 07-19-2023 Resolved: 07-20-2023 10-21-2023 Chronic Attention-deficit, conduct, and disruptive behavior disorders (7 sources) Attention-deficit hyperactivity disorder, unspecified type; Translations: [ADHD (attention deficit hyperactivity disorder) F90.9] Onset: 07-07-2021 Resolved: 04-10-2022 Chronic Headache; including migraine (10 sources) Migraine; Translations: [Migraine, unspecified, not intractable, without status migrainosus] Chronic Malaise and fatigue (2 sources) Fatigue; Translations: [Chronic fatigue, unspecified] Onset: 07-20-2023 07-20-2023 Chronic Menstrual disorders (3 sources) Missed period; Translations: [Irregular menstruation, unspecified] Onset: 07-20-2023 Resolved: 08-27-2023 08-27-2023 Chronic Mood disorders (6 sources) Affective psychosis; Translations: [Unspecified mood [affective] disorder] Onset: 07-19-2023 Resolved: 07-20-2023 07-19-2023 Chronic Other complications of (1 source) Other specified related conditions, second trimester; Translations: [Other specified related conditions, second trimester] Onset: 05-23-2024 Episodic Other ear and sense organ disorders (2 sources) Impacted cerumen of bilateral ears; Translations: [Impacted cerumen, bilateral] 10-21-2023 Episodic Other endocrine disorders (10 sources) Polycystic ovaries; Translations: [Polycystic ovarian syndrome] Chronic Other endocrine disorders (6 sources) Polycystic ovarian syndrome; Translations: [POLYCYSTIC OVARIAN SYNDROME] Onset: 04-10-2022 Resolved: 04-10-2022 Chronic Other endocrine disorders (2 sources) Hypoglycemia; Translations: [Hypoglycemia, unspecified] Onset: 07-19-2023 07-19-2023 Chronic Other female genital disorders (3 sources) [...] sleeping ; Translations: [Sleep disorder, unspecified] Episodic Residual codes; unclassified (1 source) 24 weeks gestation of ; Translations: [24 weeks gestation of ] Onset: 05-23-2024 Episodic Unclassified (1 source) Acute cough; Translations: [...] 04-10-2022 Episodic Other aftercare (2 sources) Other supervisor long goods (current) drug therapy Onset: 09-03-2021 Resolved: 01-02-2022 [...] unspecified Onset: 01-02-2022 Resolved: 01-02-2022 Episodic Spontaneous (1 source) Complete or unspecified spontaneous without complication; Translations: [COMPLETE/UNS SPONT AB W/O COMP] Onset: 09-29-2022 Episodic Results Test Name Value Interpretation Reference Range Facility Coding Summaryon 05-30-2024 Coding Summary HTMLBase 64 KspcmxzhBLo5cWt+PGhlYWQ+PE 8JRJIeW16ijXJqxE6uP9QCYMcA BamiMDUJDWcZAiLubjEuHD2kvB NjZXJu IC8+MQ1mWKRsAaonuMPru6L6lK H0U83mdy5jKRjasLX8KKJvOvKt ukwbb3vxeYx1LLfzUghbIoOd RTSqyB21KJL7aW19Va37uMKrxT Vfr3xfzWw8RiIuSQFtTIQ0kFvw CAaqv6YuUHTbF56nwUCpt8Z2 JOPlcPvwdPIsFpLiuVV7aD2oOC awqglbe8eoiupoMfm2zm25jOMl e2I2pSA2Q6BmlsK7XBKxaVEi RzzqpRXKcX0dpfjqf6qnjgwuLu HoLJLnXFd8DMm5BLYltZdvDxSm KA73MOB6CUHizrJcJ7PaRBOh tJayXpO6g2A2Vi9HE8MNLvqdI5 VNTUFSWTwvdGQ+TJ45tk40G6Bw RhuaBng6LHVbGVG7vIL0lN5l QAYcLZxsm7R5vJL5H8ZsdnFnmu 6se0ccLZOxPBojT18hkBRbu0R3 VGLphOZ2KNJysMdtIuVqgT29 Oyc+FYSjyOzsk9ZxJfwvy7fbi8 rioNb8VlvpTWNpheYrtUztPAR0 d5RqQd0pLYZdsDN0wEB2xS6h BwElHmA2IOhlX199EmTtpUSeZt afA35yI0LauRO+TTNxBey1EAEg jDueXJ2oU9NwSAFjihrgcZGy nXlqKH8iLKBhvbwjLGKwsX8bVF BjA5s5EpHqOfO7QRbpD1NxLRYh gysfSt04gQ4kGlApMoI0WMlh D8YgioH3VCXiwAFvHDgfYVW7D8 9uo9X8RKBoNTDjICX8iLB4bI2u bGlnbjogbGVmdDsgdmVydGlj IYedGPbiF602WIWtpKekIyJnPZ luZyBEYXRlOiAgMDkvMTAvMjAy NDwvdGQ+FVRiZTM8qPlaUZTl nDKxDLbiUb9hvTlshBykUU4bKW SyrcxyKVKecJ1vBDNxoNOzwJyi SX8jYMGnlsnlm072VqZvAUP4 ZCDslQWbA5CqaS5tKqNiGMZiLC WwU2LboGSjYBmkY226IUxhXyS4 CNJdvvTiH9XjBWKgsBuaKlJ6 q1T5Kp5Dh2MeoinvY2VyqXSzWv IrPblbRXu6N5OtLbjoqSO+PC90 QTSoMB23JIp9ONF2iEnrIOrj PACtM1SezI6cNcBuGGZwDSQlOa c+PHRhYmxlIHdpZHRoPScxMDAl TvWlsXymPZ9rGj5vELXwGEFz qXducQJuWlOfa2haINMrOUalWZ 7wpWjwD2CmnWK7SOLqa9v5Cp34 U33iS8NbvUQ+DUYzxIZ6yQA3 nI3hGjGgEaK3JTntO192RbEycY PtHhskb6cov6ljrKw3LmN8CYVk tkNzbOhdRAE2l5CmWa14F98n IHdpZHRoPSIxNSUiIHZhbGlnbj 7qcE1pKg9+ADXujUV7kUW5kK5d ClLfRaO3VHnyU365ZqCbvPGz Emgfm9pns7uyiKx7YjFpJMYrqo EuvDloKZB5d0HiGc84T5EojBhb d8EwLhx7fm26yTRqw3W9fEZ2 U5QjZPBxpkixdQUlyMmeMB2lLI QjvafaMEUfmO8zHJMuB9o2YuBb RzC6QDuvZ2HttkS5PHRjzYNv MTOftJZMhD2qltqnk2kkugtuBe VpHMHzFVn8MWq5RVMqeWumZmJw WRL9RtW3XSS8qTLapD6jvNdt mmbdsX1sWcp+KDK7tUOzpNNRWN 1lOjwvdGQ+XKQvHZF5wJphOFpy SPQtqZ2hRGJfE9p0NjFiXsJ0 EQoyN2DmaqF9HCNquVOaDUNswN JOyH2zztlcy5wivszzGxJhBMVv UMy4SDw7EWAyfEfjRqHaFYS1 XxU8ZZK7iSQsiA1jnUghofchxU 9wOyc+XurrnXtsDUY5ASc6A6Bf Pqi0YXKylOeyWJ8wtQNrFDjx Zd9bhXsvzOpcMF8oTDRkvkscl2 13EwTpq0teKIMhwRXkIVanCUJ0 M33mf4V1RKWzNHKiXQE9yNY6 yF2fbDtnhhbjpPHxtXcrvrAvmF wxRAcyFUyoB378FLAfsHnzSiUy TWj2Y5GkPfy5UVWvfLfaKD7z vNXfKQntDa5gnDcxxHwoIX8kDI Cieajsh332KvFra8sjDIEakSVu ZYnhJXA7O61ly8I1DTZeGLEd QPK5vCL9tL5bvGujwfoehYZnxU vztcIkgZjiOKpaVNhmV167YRUh nJppCuKgvEp3I8BuIqi7ZIUj mIxmKA6irCTvCVbbSh0vnCjotJ yfFY8gCKVqdxzqi763PdJab3zv WFFbwEZnEPvpZVD2L38km0N4 UEItHGQfRYT0mTN4lH7qbUxuau ogbGVmdDsgdmVydGljYWwtYWxp X965EDXzeGuhNaRpkGxaznXw RXfoYUa7M1IvIwroyEP+PC90YW EdGW32dKTpqHEkl1hbeKv4QyRc FWRgDHO9zIcaWIewl7ClLTLw D12gdTBjn6B1BMRkzPkdaFEdNl TavAK8mB2aMJamyqspy1jzdqyk Gzfrp7qcbe30mY59U62iIHhs PTVsVUSwUMCdPQDpcAlcwv4zaZ 9wIi8+VFXyeNE1bPX6oL7dJRUk KkS2WDvfE803VmCyzWEjIgyv f7sae6gzlCn5TzR3XCWcfwJjsF brTJA7w6CxHa78F59zGHhtNXVo TSAcCDSwTOVigKghfc6gsR4n Ii8+HLRqzMG8cSY9iL6uVxMdEp V0AOqyR015EwPzzABwQvsxX13m U3VrlXO+OMQgKgr2PLErfMgv BX9diZPiOJvrFm9zJEU8XmVhKg IuNQnmW1FhIKFkuttiuydbuHU1 ORPmEREhaU18Sz7mwRosXGCn yJXHnZ3nrunbs3jkhnbrCyRiZN VdUWr5CPa5PQArnZqcLdApTJV6 KuF9EAY3gAKuiI5qqJselgxa pE9dK6YaVSMyvuemUe69jW1uEr XvVaU0ZUcrVlf+Xp6GSHnuX0UA VExZTiBMRUlHSDwvdGQ+PHRk KMX2iHzaSUqvTMHbrV3qELXuT1 g5IkUpQoG2OKaeO8MwNERcdwet Nu70nN6eTwOoUgI0QFfkL0Ac vjJ2GHZgoWPlFKcwKON1W78tz5 Z2BEDoXAYlQNG4pWN7qU7jaSdm bjogbGVmdDsgdmVydGljYWwt GIibN270EKCsqWtmVtQ0CuEgBe L5GLb4Q2EjGgg8MHMqbLnkLC0d wTSgLKxsVm0slOysxYqaLL3j LFZcedynFVXeoE9yAVVuzATgxI rzHQ6kILJzsgdsz104PiZsSKK9 AUNefQZjH5JafC1pBpBsAXSo NUNvL6PqvUTmDNseJ640CWnxPy S7FEVtpmPmE2CqDHZnhHtoCuC1 o5V7Kg6wMQIWGNGyqgmysVF+ AAJoVKU9nAiaSBknQPTyzK0lQV WoB9p3AcFrGnB8SVlcW5BnEINj warwKq31dY1xSaLeQeT4BHco R6KitqZ1QGBziIGwKHghHTM6O1 9he9E2OBIeSWNnEKF6gSP1lG4f bGlnbjogbGVmdDsgdmVydGlj ABvlVYocE691UGDobHxoHfPXQM FMRTwvdGQ+NCWeTCA1vVufVRwl SHNvkB5iADIzD9j6ErEtIbH5 MBpbU3DbMWYggjqhWl73qQ6nVq UfYcA8HRduP0HjjtT7SJFdhOLf DAltALG9J12kl5F6XFTjVSYj WGZ6nEI6tJ1cuOwzecqkfPHpsK jjowIckJpuAPofWBqsG786PCAs sPbjDn0UVV52HC70E4YrYdni dGFibGU+PHRhYmxlIHdpZHRoPS tiPWBwJfOgeUxnMS5sJt0vPOUb UJGveEgprXIgKlHyb7utLYNm UOmcJP3tfNidB4JfsQK8QYOhf5 h1Ul76P34eQ1WjbXY+PGNvbCB3 kOW3bV1dTdFtYlJ8XDakB808 OrWflQWhJsgdu0mvb8ohqNe2Av RjGCHbkoVmrCewHNB6o5UjIa52 N14xOMylSLBoDGUuPLMwISEc yOoplo4deS3oDl1+UXXkwQQ1eH G4sZ0nFyLoPfJ0ABtqN318FiUm yVFpNftmF46xC9QbhUT+PHRy Sxp1GLHxaXpkRB0pqHSkSPjhLn 7xUNB0DhNxMqBlYFgqY2GeWINb yllzzurrbEA1QWXhRPQzeQ15 Zd8geZquMo8qVDXjKLD4YPOsmO TkV1BweP3vLsRrEOJfKRYtV4Qu rWDlDYujQ264WAshNzD0YQNq nsDcF4AnJEPudKxuNoA2r2X7Uo 5OxHvliGTfWA8mJmCxRMr8B1Gj Rae5LYRqoJuyDI3elKMfLBfw Mf4lgTzxlIczCM9fGYOnblvxk6 53NmCdx0nuUMUvbTIjHLikJJP6 D79wi3V1XAJwPQOcQGO6aIO1 eN2obHcwonpjqDUjdCbqrwEpoX iaZBwvNPiwI340QCVotSrvAoZF Try5W8MnIdp6NKOojMynCE3r jRPwETtuCj3ceAkzfOexHS7aYX Fivoinf760QeTxh5jcBDNzpMSf WOrdXOO4L79kh8J8FVOqIHQn AVN2qCQ3oC0qoQhgflyoyHJhyA bfkqOyhWrpRIijBQopN480GZPl wYpxCi4SOvh5Y8FfQuh5DMFp cKpyRV6ygFLxNBfwKh4cwKdsbQ uaXR3bASHjryqsi660OfJqt1tx GGQzrXZkTDnvMWF4W71zi4R3 UDDdKWReCJZ6iOG6iP3igNgyhc ogbGVmdDsgdmVydGljYWwtYWxp X329GLNklGyuBgLibZZlZjvz dGQ+TH70sa38I1JoZsqlRwi7JF PdHXJ6zCI7iX0zNWSxKNmry9W5 tNQ3B0AdrjNtnj9as7ekJSBa ZTo (more content not included)... Normal [facility] Bacteria [Presence] in Urine by AutomatedOrdered By: Andrzej Grace on 05-23-2024 Bacteria Auto Ql (U) 1+ [HPF] High None Seen [facility] Bilirubin Test strip Ql (U)O rdered By: Andrzej Grace on 09-03-2024 Bilirubin Ql (U) Negative Negative [facility] Color of Urine by AutoOrdere d By: Andrzej Grace on 05-23-2024 Color (U) Light-yellow Normal Yellow [facility] Comment on above: Order Comment: Name Collection Type:: Clean-Voided Midstream Performed By: #### A DDONUAPLUS #### [facility] [address] [id number] [place] Crystals.amorphous [Presence ] in Urine by Computer assisted methodOrdered By: Andrzej Grace on 05-23-2024 Crystals.amorphous Computer assisted Ql (U) 1+ [HPF] [facility] Dipstick and Microscopicon 0 05-23-2024 Amorphous Crystal,Urine 1+ Normal T he [facility] Comment on above: Order Comment: Name Collection Type:: Clean-Voided Midstream Performed By: #### A DDONUAPLUS #### [facility] [address] [id number] [place] Bacteria,Urine 1+ High None Seen [facility] Comment on above: Order Comment: Name Collection Type:: Clean-Voided Midstream Performed By: #### A DDONUAPLUS #### [facility] [address] [id number] [place] Bilirubin,Urine Negative Normal Negative [facility] Comment on above: Order Comment: Name Collection Type:: Clean-Voided Midstream Performed By: #### A DDONUAPLUS #### [facility] [address] [id number] [place] Glucose Ql (U) Normal Normal Normal [facility] Comment on above: Order Comment: Name Collection Type:: Clean-Voided Midstream Performed By: #### A DDONUAPLUS #### [facility] [address] [id number] [place] Hyaline Casts,Urine None Normal 0-8 [facility] Comment on above: Order Comment: Name Collection Type:: Clean-Voided Midstream Performed By: #### A DDONUAPLUS #### [facility] [address] [id number] [place] Mucus,Urine Rare Normal [facility] Comment on above: Order Comment: Name Collection Type:: Clean-Voided Midstream Result Comment: PERF ORMED BY: [place] [address] PATHOLOGIST CERTIFIED TUMOR REGISTRAR SADAF YOUNGBLOOD M.D. Performed By: #### A DDONUAPLUS #### [place] [address] [place] Nitrite,Urine Negative Normal Negative [facility] Comment on above: Order Comment: Name Collection Type:: Clean-Voided Midstream Performed By: #### A DDONUAPLUS #### [address] Occult Blood,Urine Negative Normal Negative [facility] Comment on above: Order Comment: Name Collection Type:: Clean-Voided Midstream Result Comment: PERF ORMED BY: [place] [address] PATHOLOGIST CERTIFIED TUMOR REGISTRAR SADAF YOUNGBLOOD M.D. Performed By: #### A DDONUAPLUS #### [place] [address] [place] Protein,Urine Negative Normal Negative [facility] Comment on above: Order Comment: Name Collection Type:: Clean-Voided Midstream Performed By: #### A DDONUAPLUS #### [address] RBC,Urine 1-2 Normal 0-4 [facility] Comment on above: Order Comment: Name Collection Type:: Clean-Voided Midstream Performed By: #### A DDONUAPLUS #### [place] [address] [place] Specificy [place],Urine 1.013 Normal 1.00 1-1.03 0 [facility] Comment on above: Order Comment: Name Collection Type:: Clean-Voided Midstream Performed By: #### A DDONUAPLUS #### [place] [address] [place] Squamous Epithelial Cell,Urine 10-19 High 0-2 [facility] Comment on above: Order Comment: Name Collection Type:: Clean-Voided Midstream Performed By: #### A DDONUAPLUS #### [facility] [address] [place] [address] Urobilinogen,Urine Normal Normal Normal [facility] Comment on above: Order Comment: Name Collection Type:: Clean-Voided Midstream Performed By: #### A DDONUAPLUS #### [facility] [address] WBC,Urine 3-4 Normal 0-4 [facility] Comment on above: Order Comment: Name Collection Type:: Clean-Voided Midstream Performed By: #### A DDONUAPLUS #### [address] Epithelial cells.squamous [# /area] in Urine sediment by Automated countOrdered By: Andrzej Grace on 05-23-2024 Epithelial cells.squamous Auto (Urine sed) [#/Area] 10-19 [HPF] High 0-2 [facility] Erythrocytes [#/area] in Uri ne sediment by Automated countOrdered By: Andrzej Grace on 05-23-2024 RBC Auto (Urine sed) [#/Area] 1-2 [HPF] 0-4 [facility] Fibronectinon 05-23-20 Fibronectin Negative Normal Negative [facility] Comment on above: Order Comment: Comme nt patients 22 - 34 6/7 weeks prior to vaginal exam Result Comment: PERF ORMED BY: [place] [address] PATHOLOGIST CERTIFIED TUMOR REGISTRAR SADAF YOUNGBLOOD M.D. Performed By: #### L IPID, B12, FOL, T4F, TSH3, FSH, [id number], CMP, MG, FE and TIBC, SAKINA, CRP #### [facility] [address] [place] [address] fibronectinOrdered By: Andrzej Grace on 05-23-2024 Fibronectin. (Vag fld) [Mass/Vol] Negative Negative [facility] Glucose [Mass/volume] in Uri ne by Test stripOrdered By: Andrzej Grace on 05-23-2024 Glucose Test strip (U) [Mass/Vol] Normal mg/dL Normal [facility] Hemoglobin Test strip Ql (U) Ordered By: Andrzej Grace on 05-23-2024 Hemoglobin Ql (U) Negative Negative [facility] Hyaline casts [#/area] in Ur ine sediment by Automated countOrdered By: Andrzej Grace on 05-23-2024 Hyaline casts Auto (Urine sed) [#/Area] None [LPF] 0-8 [facility] Ketones [Presence] in Urine by Test stripOrdered By: Andrzej Grace on 05-23-2024 Ketones Ql (U) Negative Normal Negative [facility] Comment on above: Order Comment: Name Collection Type:: Clean-Voided Midstream Performed By: #### A DDONUAPLUS #### [facility] [address] [place] [address] [place] Leukocyte esterase [Presence ] in Urine by Test stripOrdered By: Andrzej Grace on 05-23-2024 Leukocyte esterase Test strip Ql (U) Negative Normal Negative [facility] Comment on above: Order Comment: Name Collection Type:: Clean-Voided Midstream Performed By: #### A DDONUAPLUS #### [facility] [address] [place] [address] [place] Leukocytes [#/area] in Urine sediment by Automated countOrdered By: Andrzej Grace on 05-23-2024 WBC Auto (Urine sed) [#/Area] 3-4 [HPF] 0-4 [facility] Mucus [Presence] in Urine by AutomatedOrdered By: Andrzej Grace on 05-23-2024 Mucus Auto Ql (U) Rare [LPF] [facility] Nitrite Test strip Ql (U)Ord ered By: Andrzej Grace on 05-23-2024 Nitrite Ql (U) Negative Negative [facility] Protein Test strip (U) [Mass /Vol]Ordered By: Andrzej Grace on 05-23-2024 Protein (U) [Mass/Vol] Negative Negative [facility] Specific gravity Test strip (U) [Rel density]Ordered By: Andrzej Grace on 05-23-2024 Specific gravity (U) [Rel density] 1.013 1.001-1.[address] [facility] Urine appearanceOrdered By: Andrzej Grace on 05-23-2024 Appearance (U) Cloudy Critically abnormal Clear [facility] Comment on above: Order Comment: Name Collection Type:: Clean-Voided Midstream Performed By: #### A DDONUAPLUS #### [facility] [address] [id number] [facility] Urobilinogen Test strip (U) [Mass/Vol]Ordered By: Andrzej Grace on 05-23-2024 Urobilinogen (U) [Mass/Vol] Normal mg/dL Normal [facility] pH of Urine by Test stripOrd ered By: Andrzej Grace on 05-23-2024 pH (U) 6.5 [pH] Normal 5.0-9.0 [facility] Comment on above: Order Comment: Name Collection Type:: Clean-Voided Midstream Performed By: #### A DDONUAPLUS #### [facility] [address] [id number] [facility] ED Clinical Summaryon 2023 ED Clinical Summary [facility] ? Urgent Care [address] [place] [address] Clinical Summary PERSON INFORMATION Name: LE ROCHA Age: 23 Years Sex: FEMALE : 2000 MRN: Acct#: Visit Reason: UC - Dental Pain; DENTAL PAIN Arrival: 05/22/2024 13:14:06 Discharge: 05/22/2024 14:17:00 LOS: 000 01:03 Check In: 05/22/2024 13:14:06 Checkout: 05/22/2024 14:17:00 Address: [address] [place] [address] PCP: Raeann Jang MSN LABOR ARBITRATOR PROVIDER INFORMATION Provider Role Assigned Unassigned Yon Templeton CNP ED PA 05/22/2024 13:18:37 Malena Langston ED Nurse 05/22/2024 13:40:45 VITALS INFORMATION Vital Sign Triage Latest Temperature Tympanic Temperature Temporal Artery Pulse Rate O2 Sat Respiratory Rate Blood Pressure /50 mmHg /50 mmHg MEDICAL INFORMATION Medications Given: Allergy Information: No known allergies PHYSICIAN DOCUMENTATION DISCHARGE INFORMATION: Discharge Disposition: Home Discharge Location: Home PATIENT EDUCATION INFORMATION Instructions: Dental Pain, Owzi-[id number]; Dental Pain, [id number] Follow-Up: With: Address: When: Raeann Jang MSN LABOR ARBITRATOR [address] [place] [address] Within 3 to 5 days Comments: - History and physical exam likely compatible today with dental infection and/or right lower wisdom tooth impaction -Recommend patient call the dentist tomorrow and make an appointment -We will go ahead and start amoxicillin 500 mg 3 times a day x 5 days. Recommend yogurt or probiotics daily -Tylenol as needed pain -Antiseptic mouth rinses as discussed and warm salt water gargle rinses -Monitor report lack of improvement, worsening symptoms or other concerns back to urgent care and follow with PCP as directed -Care plan discussed with patient in agreement verbalized understanding DIAGNOSIS: 1:Dental infection; 2:Impacted tooth Patient Understands: Yes - Patient/family/caregiver verbalizes understanding of instructions given Comment: Normal [facility] ED Patient Summaryon 024 ED Patient Summary [facility] ? Urgent Care [address] [place], [place] [id number] PATIENT DISCHARGE INSTRUCTIONS Patient Information Name: LE ROCHA Age: 23 Years Date of : 2000 Reason For Visit: UC - Dental Pain; DENTAL PAIN Arrival Time: 05/22/2024 13:14:06 Primary Care Physician: Raeann Jang MSN [employer] Attending Physician: Yon Templeton CNP Comment: Patient Education With: Address: When: Raeann Jang MSN [employer] [address] [place] [address] Within 3 to 5 days Comments: - History and physical exam likely compatible today with dental infection and/or right lower wisdom tooth impaction -Recommend patient call the dentist tomorrow and make an appointment -We will go ahead and start amoxicillin 500 mg 3 times a day x 5 days. Recommend yogurt or probiotics daily -Tylenol as needed pain -Antiseptic mouth rinses as discussed and warm salt water gargle rinses -Monitor report lack of improvement, worsening symptoms or other concerns back to urgent care and follow with PCP as directed -Care plan discussed with patient in agreement verbalized understanding Dental Pain Dental pain is often a sign that something is wrong with your teeth or gums. You can also have pain after a dental treatment. If you have dental pain, it is important to contact your dentist, especially if the cause of the pain is not known. Dental pain may hurt a lot or a little and can be caused by many things, including: ? Tooth decay (cavities or caries). ? Infection. ? The inner part of the tooth being filled with pus (an abscess). ? Injury. ? A crack in the tooth. ? Gums that move back and expose the root of a tooth. ? Gum disease. ? Abnormal grinding or clenching of teeth. ? Not taking good care of your teeth. Sometimes the cause of pain is not known. You may have pain all the time, or it may happen only when you are: ? Chewing. ? Exposed to hot or cold temperatures. ? Eating or drinking foods or drinks that have a lot of sugar in them, such as soda or candy. Follow these instructions at home: Medicines ? Take [id number] and prescription medicines only as told by your dentist. ? If you were prescribed an antibiotic medicine, take it as told by your dentist. Do not stop taking it even if you start to feel better. Eating and drinking Do not eat foods or drinks that cause you pain. These include: ? Very hot or very cold foods or drinks. ? Sweet or sugary foods or drinks. Managing pain and swelling ? If told, put ice on the painful area of your face. To do this: ? Put ice in a plastic bag. ? Place a towel between your skin and the bag. ? Leave the ice on for 20 minutes, 2?3 times a day. ? Take off the ice if your skin turns bright red. This is very important. If you cannot feel pain, heat, or cold, you have a greater risk of damage to the area. Brushing your teeth ? [place] your teeth twice a day using a fluoride toothpaste. ? Use a toothpaste made for sensitive teeth as told by your dentist. ? Use a soft toothbrush. General instructions ? Floss your teeth at least once a day. ? Do not put heat on the outside of your face. ? Rinse your mouth often with salt water. To make salt water, dissolve ??1 tsp (3?6 g) of salt in 1 cup (237 mL) of warm water. ? Watch your dental pain. Let your dentist know if there are any changes. ? Keep all follow-up visits. Contact a dentist if: ? You have dental pain and you do not know why. ? Medicine does not help your pain. ? Your symptoms get worse. ? You have new symptoms. Get help right away if: ? You cannot open your mouth. ? You are having trouble breathing or swallowing. ? You have a fever. ? Your face, neck, or jaw is swollen. These symptoms may be an emergency. Get help right away. Call your local emergency services (911 in the [place] ? Do not wait to see if the symptoms will go away. ? Do not drive yourself to the hospital. Summary ? Dental pain may be caused by many things, including tooth decay, injury, or infection. In some cases, the cause is not known. ? Dental pain may hurt a lot or very little. You may have pain all the time, or you may have it only when you eat or drink. ? Take mlwe-ipy-oqngysx and prescription medicines only as told by your dentist. ? Watch your dental pain for any changes. Let your dentist know if symptoms get worse. This information is not intended to replace advice given to you by your health care provider. Make sure you discuss any questions you have with your health care provider. Document Revised: 06/11/2021 Document Reviewed: 06/11/2021 [employer] Patient Education ? 2023 [employer] Dental Pain Dental pain is often a sign that something is wrong with your teeth or gums. You can also mandel (more content not included)... Normal [facility] [address] 024 Urgent Care Record [facility] ? Urgent Care [address] [place] [address] PATIENT DISCHARGE INSTRUCTIONS Patient Information Name: LE ROCHA Age: 23 Years Date of : 2000 Reason For Visit: UC - Dental Pain; DENTAL PAIN Arrival Time: 05/22/2024 13:14:06 Primary Care Physician: Raeann Jang MSN LABOR ARBITRATOR Attending Physician: Yon Templeton CNP Comment: Visit Diagnosis: Diagnoses This Visit Dental infection (K04.7) Impacted tooth (K01.1) UC - Dental Pain ([id number]) If you received any narcotics, sedation, or [...] business decisions or sign any legal documents With: Address: When: Raeann Jang MSN LABOR ARBITRATOR [address] [place] [id number] Medication Information: The exam and treatment you received today in the [facility] were for an urgent problem and are not intended as complete care. It is important for you to follow up with a doctor, nurse practitioner, or physician?s blood donor unit assistant for ongoing care. If your symptoms [...] so we can reach you if necessary. [facility] has provided you with a complete list of medications post discharge. Please inform your creative services specialist/provider of your visit and for further instruction on these medications. Any specific questions regarding your chronic medications and dosages should be discussed with your primary care physician(s) and/or pharmacist. New Medications [facility], [address] [place], [place] [id number], [phone] amoxicillin (amoxicillin 500 mg oral capsule) 1 cap(s) Oral (given by mouth) 3 times per day for 5 Days. Refills: 0. Additional medications on your home medication list not specifically addressed. Please contact the ordering physician if you have questions about these medications. multivitamin, (Multivitamin) 1 tab Oral (given by mouth) every day. Visit Information Allergies: Substance Reaction Symptoms Type Comments No known allergies Drug Vital Signs: Vitals and Measurements this Visit (last charted value for your 05/22/2024 visit) Vital Signs This Visit Temperature Temporal: 36.8 DegC Peripheral Pulse Rate: 72 bpm Respiratory Rate: 16 br/min Systolic Blood Pressure: 100 mmHg Diastolic Blood Pressure: 50 mmHg Blood Pressure Method: Manual Measurements This Visit Height/Length Measured: 175 cm Weight Measured: 62.14 kg Weight Dosin.140 kg Body Mass Index: 20.29 kg/m2 BSA Measured: 1.74 m2 Problems List: Problem Onset Comments No Problems found Patient Education Dental Pain Dental pain is often a sign that something is wrong with your teeth or gums. You can also have pain after a dental treatment. If you have dental pain, it is important to contact your dentist, especially if the cause of the pain is not known. Dental pain may hurt a lot or a little and can be caused by many things, including: ? Tooth decay (cavities or caries). ? Infection. ? The inner part of the tooth being filled with pus (an abscess). ? Injury. ? A crack in the tooth. ? Gums that move back and expose the root of a tooth. ? Gum disease. ? Abnormal grinding or clenching of teeth. ? Not taking good care of your teeth. Sometimes the cause of pain is not known. You may have pain all the time, or it may happen only when you are: ? Chewing. ? Exposed to hot or cold temperatures. ? Eating or drinking foods or drinks that have a lot of sugar in them, such as soda or candy. Follow these instructions at home: Medicines ? Take dokx-gio-ntiznqv and prescription medicines only as told by your dentist. ? If you were prescribed an antibiotic medicine, take it as told by your dentist. Do not stop taking it even if you start to feel better. Eating and drinking D (more content not included)... Normal [facility] Quantiferon-TB Plus (Client Incubated)on 04-17-2024 Gamma interferon background IA Qn (Bld) 3.22 International_Unit/mL Invalid Interpretation Code [facility] Comment on above: Performed By: #### 1 [id number] #### [facility] [address] [place] [address] M. tuberculosis stim IFN-g by CD4+ CD8+ T-cells corrected for background Qn (Bld) 0.00 International_Unit/mL Invalid Interpretation Code [facility] Comment on above: Performed By: #### 1 [id number] #### [facility] [address] [place] [address] M. tuberculosis stim IFN-g by CD4+ T-cells corrected for background Qn (Bld) 0.00 International_Unit/mL Invalid Interpretation Code [facility] Comment on above: Performed By: #### 1 [id number] #### [facility] [address] [place] [address] M. tuberculosis stim IFN-g Ql (Bld) [Interp] Negative Invalid Interpretation Code Negative [facility] Comment on above: Result Comment: No r [...] interferon gamma. Chemiluminescence immunoassay methodology Performed at: [employer] [id number] PhD Calvin Milner Performed By: #### 1 [id number] #### [facility] [address] [place] [address] Mitogen stimulated gamma interferon corrected for background Qn (Bld) >10.00 Invalid Interpretation Code [facility] Comment on above: Performed By: #### 1 [id number] #### [facility] [address] [place] [address] Service comment (Unsp spec) [Interp] Comment Invalid Interpretation Code [facility] Comment on above: Result Comment: Bairon tiFERON-TB [...] for the test. Performed By: #### 1 [id number] #### [facility] [address] [place] [address] Hep Bs Abon 04-15-2024 HBV surface Ab Ql (S) Reactive Invalid Interpretation Code [facility] Comment on above: Result Comment: Non Reactive: Inconsistent with immunity, less than 10 mIU/mL Reactive: Consistent with immunity, greater than 9.9 mIU/mL Performed at: [employer] [address] [id number] PhD Calvin Milner Performed By: #### 2 [id number] #### [facility] [address] [place] [address] Measles/Mumps/Rubella Immuni tyon 04-15-2024 MeV IgG IA Qn (S) 26.7 A unit/mL Invalid Interpretation Code Immune >16.4 [facility] Comment on above: Result Comment: Nega tive <13.5 Equivocal 13.5 - 16.4 Positive >16.4 Presence of antibodies to Rubeola is presumptive evidence of immunity except when acute infection is suspected. Performed By: #### 3 [id number] #### [facility] [address] [place] [address] MuV IgG IA Qn (S) 209.0 A unit/mL Invalid Interpretation Code Immune >10.9 [facility] Comment on above: Result Comment: Nega tive <9.0 Equivocal 9.0 - 10.9 Positive >10.9 A positive result generally indicates past exposure to Mumps virus or previous vaccination. Performed at: [address] [id number] PhD Calvin Milner Performed By: #### 3 [id number] #### [facility] [address] [place] [address] Rubella virus IgG Qn (S) 4.08 [IU]/mL Invalid Interpretation Code Immune >0.99 [facility] Comment on above: Result Comment: Non- immune <0.90 Equivocal 0.90 - 0.99 Immune >0.99 Performed By: #### 3 [id number] #### [facility] [address] [place] [address] Varic IgGon 04-15-2024 VZV IgG IA Qn (S) 514 Invalid Interpretation Code Immune >165 [facility] Comment on above: Result Comment: Nega tive <135 Equivocal 135 - 165 Positive >165 A positive result generally indicates exposure to the pathogen or administration of specific immunoglobulins, but it is not indication of active infection or stage of disease. Performed at: [place] [id number], [place] [id number] PhD Calvin Milner Performed By: #### 1 [id number] #### [facility] [address] [place] [address] BioFire Detectedon BioFire Detected Detected Critically abnormal Not Detecte [facility] Comment on above: Result Comment: This is a duplicate RP2.1 COVID (PCR) result to be used for statistical tracking purpose only. PERFORMED BY: [place] [address] PATHOLOGIST CERTIFIED TUMOR REGISTRAR SADAF YOUNGBLOOD M.D. Performed By: #### L IPID, B12, FOL, T4F, TSH3, FSH, [id number], CMP, MG, FE and TIBC, SAKIAN, CRP #### [address] COVID-19 Detected/Not Detect edOrdered By: Ginny Cuello on 03-30-2024 SARS-CoV-2 (COVID-19) RNA KYALH+non-probe Ql (Nph) Detected Abnormal Not Detecte [facility] Comment on above: This is a duplicate [...] A H3 Blank Space -- PERFORMED BY: [facility] [address] [place] [id number] PATHOLOGIST CERTIFIED TUMOR REGISTRAR SADAF YOUNGBLOOD M.D. Normal [facility] Comment on above: Performed By: #### L IPID, B12, FOL, T4F, TSH3, FSH, [id number], CMP, MG, FE and TIBC, SAKINA, CRP #### [facility] [address] [place] [id number] [facility] Respiratory pathogens DNA an d RNA panel - Nasopharynx by KYLAH with non-probe detectionOrdered By: Ginny Cuello on 03-30-2024 Respiratory pathogens DNA and RNA panel KYLAH+non-probe (Nph) [facility] ED Clinical Summaryon 2022 ED Clinical Summary [facility] ? Urgent Care [address] [place] [address] Clinical Summary PERSON INFORMATION Name: LE ROCHA Age: 23 Years Sex: FEMALE : 2000 MRN: Acct#: Visit Reason: Medical screening exam; OTTERBEIN PHYSICAL Arrival: 09/02/2023 11:23:52 Discharge: 09/02/2023 12:23:00 LOS: 000 01:00 Check In: 09/02/2023 11:23:52 Checkout: 09/02/2023 12:23:00 Address: [address] [place] [address] [place] [id number] PCP: Provider, Unlisted PROVIDER INFORMATION Provider Role [...] verbalizes understanding of instructions given Comment: Normal [facility] ED Patient Summaryon 023 ED Patient Summary [facility] ? Urgent Care [address] [place] [id number] PATIENT DISCHARGE INSTRUCTIONS Patient Information Name: LE ROCHA Age: 23 Years Date of : 2000 Reason For Visit: Medical screening exam; OTTERBEIN PHYSICAL Arrival Time: 09/02/2023 11:23:52 Primary Care Physician: Provider, Unlisted Attending Physician: Tyler Armstrong PA-C Comment: Patient Education Medication Information: The exam and treatment you received today in the [facility] were for an urgent problem and are not intended as complete care. It is important for you to follow up with a doctor, nurse practitioner, or physician?s blood donor unit assistant for ongoing care. If your symptoms [...] so we can reach you if necessary. [facility] has provided you with a complete list of medications post discharge. Please inform your creative services specialist/provider of your visit and for further instruction on these medications. Any specific questions regarding your chronic medications and dosages should be discussed with your primary care physician(s) and/or pharmacist. Visit Information Visit Diagnosis: Diagnoses This Visit Medical screening exam ([id number]) If you received any narcotics, sedation, or [...] documents Reason for Visit: Medical Screening Exam. [place] Physical. Allergies: Substance Reaction Symptoms Type Comments [...] for Disease Control and Prevention May 2014 [facility] Urgent Care Note- Provideron 09-02-2023 Urgent Care Note- Provider Patient: LE ROCHA Age: 23 years Sex: FEMALE : 2000 Associated Diagnoses: None Author: Tyler Armstrong PA-C Basic Information Additional information: Chief Complaint from Nursing Triage Note : Chief Complaint 09/02/2023 11:54 EST Chief Complaint Medical Screening Exam. [place] Physical. . History of Present Illness Patient [...] 09/02/2023 12:03 EST] Tyler Armstrong PA-C Normal [facility] [address] 023 Urgent Care Record [facility] ? Urgent Care [address] [place] [address] PATIENT DISCHARGE INSTRUCTIONS Patient Information Name: LE ROCHA Age: 23 Years Date of : 2000 Reason For Visit: Medical screening exam; JULIET PHYSICAL Arrival Time: 09/02/2023 11:23:52 Primary Care Physician: Provider, Unlisted Attending Physician: Tyler Armstrong PA-C Comment: Visit Diagnosis: Diagnoses This Visit Medical screening exam ([id number]) If you received any narcotics, sedation, or [...] and treatment you received today in the [facility] were for an urgent problem and are not intended as complete care. It is important for you to follow up with a doctor, nurse practitioner, or physician?s blood donor unit assistant for ongoing care. If your symptoms [...] so we can reach you if necessary. [facility] has provided you with a complete list of medications post discharge. Please inform your creative services specialist/provider of your visit and for further instruction [...] Disease Control and Prevention May 2014 Normal [facility] Choriogonadotropin.beta subu nit [Units/volume] in Serum or PlasmaOrdered By: Raeann Jang on 08-19-2023 HCG.beta subunit Qn 0.75 m[IU]/mL [facility] Comment on above: Approximate Approxim ate hCG Gestational Age Range (mIU/ml) (weeks)0.2-1 5-50 1-2 50-500 2-3 100-5,000 3-4 500-10,000 4-5 1,000-50,000 5-6 10,000-100,000 6-8 15,000-200,000 8-12 10,000-100,000 HCG.beta subunit Qn Negative [facility] HCG,Qualitative Serumon 07-23 HCG,Qualitative Serum Negative Normal [facility] Comment on above: Result Comment: PERF ORMED BY: [place] [address] PATHOLOGIST CERTIFIED TUMOR REGISTRAR SADAF YOUNGBLOOD M.D. Performed By: #### L IPID, B12, FOL, T4F, TSH3, FSH, [id number], CMP, MG, FE and TIBC, SAKINA, CRP #### [facility] [address] HCG,Quantitativeon HCG,Quantitative 0.75 m[iU]/mL Normal [facility] Comment on above: Result Comment: Appr oximate Approximate hCG Gestational Age Range (mIU/ml) (weeks) 0.2-1 5-50 1-2 50-500 2-3 100-5,000 3-4 500-10,000 4-5 1,000-50,000 5-6 10,000-100,000 6-8 15,000-200,000 8-12 10,000-100,000 Performed By: #### L IPID, B12, FOL, T4F, TSH3, FSH, [id number], CMP, MG, FE and TIBC, SAKINA, CRP #### [facility] [address] HAND RIGHT WO IV CONTRAST [...] Detected Not detected Normal Not Detecte [facility] Comment on above: Result Comment: This is a duplicate RP2.1 COVID (PCR) result to be used for statistical tracking purpose only. PERFORMED BY: [place] [address] PATHOLOGIST CERTIFIED TUMOR REGISTRAR SADAF YOUNGBLOOD M.D. Performed By: #### L IPID, B12, FOL, T4F, TSH3, FSH, [id number], CMP, MG, FE and TIBC, SAKINA, CRP #### [facility] [address] [place] [address] COVID-19 Detected/Not Detect edOrdered By: Raeann Jang on 08-10-2023 SARS-CoV-2 (COVID-19) RNA KYLAH+non-probe Ql (Nph) Not detected Not Detecte [facility] Comment on above: This is a duplicate [...] A H3 Blank Space -- PERFORMED BY: [place] [address] PATHOLOGIST CERTIFIED TUMOR REGISTRAR SADAF YOUNGBLOOD M.D. Normal [facility] Comment on above: Performed By: #### L IPID, B12, FOL, T4F, TSH3, FSH, [id number], CMP, MG, FE and TIBC, SAKINA, CRP #### [address] Respiratory pathogens DNA an d RNA panel - Nasopharynx by KYLAH with non-probe detectionOrdered By: Raeann Jang on 08-10-2023 Respiratory pathogens DNA and RNA panel KYLAH+non-probe (Nph) [facility] XR HAND 3+ VIEWS RIGHTon XR HAND [...] activity/volume] in Serum or PlasmaOrdered By: Raeann Jang on 07-20-2023 ALT [Catalytic activity/Vol] 10 U/L Normal 7-52 [facility] Comment on above: Performed By: #### L IPID, B12, FOL, T4F, TSH3, FSH, [id number], CMP, MG, FE and TIBC, SAKINA, CRP #### [facility] [address] Albumin [Mass/volume] in Ser um or Plasma by Bromocresol green (BCG) dye binding methoOrdered By: Raeann Jang on 07-20-2023 Albumin BCG dye [Mass/Vol] 4.5 g/dL 3.5-5.7 [facility] Alkaline phosphatase [Enzyma tic activity/volume] in Serum or PlasmaOrdered By: Raeann Jang on 07-20-2023 ALP [Catalytic activity/Vol] 63 U/L Normal 34-104 [facility] Comment on above: Performed By: #### L IPID, B12, FOL, T4F, TSH3, FSH, [id number], CMP, MG, FE and TIBC, SAKINA, CRP #### [address] Aspartate aminotransferase [ Enzymatic activity/volume] in Serum or PlasmaOrdered By: Raeann Jang on 07-20-2023 AST [Catalytic activity/Vol] 16 U/L Normal 13-39 [facility] Comment on above: Performed By: #### L IPID, B12, FOL, T4F, TSH3, FSH, [id number], CMP, MG, FE and TIBC, SAKINA, CRP #### [address] Automated basophil %Ordered By: Raeann Jang on 07-20-2023 Basophils/100 WBC (Bld) 0.3 % Normal . [facility] Comment on above: Performed By: #### L IPID, B12, FOL, T4F, TSH3, FSH, [id number], CMP, MG, FE and TIBC, SAKINA, CRP #### [address] Automated basophil countOrde red By: Raeann Jang on 07-20-2023 Basophils (Bld) [#/Vol] 0.0 10*3/uL Normal 0.0-0.2 [facility] Comment on above: Performed By: #### L IPID, B12, FOL, T4F, TSH3, FSH, [id number], CMP, MG, FE and TIBC, SAKINA, CRP #### [facility] [address] Automated blood monocyte cou ntOrdered By: Raeann Jang on 07-20-2023 Monocytes (Bld) [#/Vol] 0.3 10*3/uL Normal 0.0-0.8 [facility] Comment on above: Performed By: #### L IPID, B12, FOL, T4F, TSH3, FSH, [id number], CMP, MG, FE and TIBC, SAKINA, CRP #### [facility] [address] Automated eosinophil %Ordere d By: Raeann Jang on 07-20-2023 Eosinophils/100 WBC (Bld) 0.9 % Normal . [facility] Comment on above: Performed By: #### L IPID, B12, FOL, T4F, TSH3, FSH, [id number], CMP, MG, FE and TIBC, SAKINA, CRP #### [address] Automated eosinophil countOr dered By: Raeann Jang on 07-20-2023 Eosinophils (Bld) [#/Vol] 0.1 10*3/uL Normal 0.0-0.45 [facility] Comment on above: Performed By: #### L IPID, B12, FOL, T4F, TSH3, FSH, [id number], CMP, MG, FE and TIBC, SAKINA, CRP #### [facility] [address] Automated monocyte %Ordered By: Raeann Jang on 07-20-2023 Monocytes/100 WBC (Bld) 4.9 % Normal . [facility] Comment on above: Performed By: #### L IPID, B12, FOL, T4F, TSH3, FSH, [id number], CMP, MG, FE and TIBC, SAKINA, CRP #### [facility] [address] Automated neutrophil %Ordere d By: Raeann Torresrohith on 07-20-2023 Neutrophils/100 WBC (Bld) 70.0 % Normal . [facility] Comment on above: Performed By: #### L IPID, B12, FOL, T4F, TSH3, FSH, [id number], CMP, MG, FE and TIBC, SAKINA, CRP #### [facility] [address] Bilirubin.total [Mass/volume ] in Serum or PlasmaOrdered By: Raeann Jang on 07-20-2023 Bilirubin [Mass/Vol] 1.7 mg/dL High 0.3-1.0 [facility] Comment on above: Samples from patient s who have taken Naproxen have shown spurious elevation in Total Bilirubin levels. A metabolite of Naproxen, O-desmethylnaproxen, has been shown to interfere with the Jendrassik-Grof method for measuring Total Bilirubin. Result Comment: Samp les from patients who have taken Naproxen have shown spurious elevation in Total Bilirubin levels. A metabolite of Naproxen, O-desmethylnaproxen, has been shown to interfere with the Jendrassik-Grof method for measuring Total Bilirubin. Performed By: #### L IPID, B12, FOL, T4F, TSH3, FSH, [id number], CMP, MG, FE and TIBC, SAKINA, CRP #### [facility] [address] [place] [address] [place] C reactive protein [Mass/vol ume] in Serum or PlasmaOrdered By: Raeann Jang on 07-20-2023 CRP [Mass/Vol] 0.8 mg/dL 0.0-0.5 [facility] C-Reactive Proteinon 023 C-Reactive Protein 0.8 mg/dL High 0.0-0.5 [facility] Comment on above: Performed By: #### L IPID, B12, FOL, T4F, TSH3, FSH, [id number], CMP, MG, FE and TIBC, SAKINA, CRP #### [facility] [address] Calcium [Mass/volume] in Ser um or PlasmaOrdered By: Raeann Jang on 07-20-2023 Calcium [Mass/Vol] 9.6 mg/dL Normal 8.6-10.3 [facility] Comment on above: Performed By: #### L IPID, B12, FOL, T4F, TSH3, FSH, [id number], CMP, MG, FE and TIBC, SAKINA, CRP #### [facility] [address] Carbon dioxide, total [Moles /volume] in Serum or PlasmaOrdered By: Raeann Jang on 07-20-2023 CO2 [Moles/Vol] 26.8 mmol/L Normal 21.0-31.0 [facility] Comment on above: Performed By: #### L IPID, B12, FOL, T4F, TSH3, FSH, [id number], CMP, MG, FE and TIBC, SAKINA, CRP #### [facility] [address] [place] [address] [place] Chloride [Moles/volume] in S ulises or PlasmaOrdered By: Raeann Jang on 07-20-2023 Chloride [Moles/Vol] 106 mmol/L Normal 98-107 [facility] Comment on above: Performed By: #### L IPID, B12, FOL, T4F, TSH3, FSH, [id number], CMP, MG, FE and TIBC, SAKINA, CRP #### [facility] [address] Cholesterol [Mass/volume] in Serum or PlasmaOrdered By: Raeann Jang on 07-20-2023 Cholesterol [Mass/Vol] 148 mg/dL Normal 140-200 [facility] Comment on above: Chol less than 200 m g/dl low riskChol 201-239 mg/dl borderline riskChol 240 mg/dl and greater high risk Result Comment: Chol less than 200 mg/dl low risk Chol 201-239 mg/dl borderline risk Chol 240 mg/dl and greater high risk Performed By: #### L IPID, B12, FOL, T4F, TSH3, FSH, [id number], CMP, MG, FE and TIBC, SAKINA, CRP #### [facility] [address] Cholesterol in LDL Calc [Mas s/Vol]Ordered By: Raeann Jang on 07-20-2023 Cholesterol in LDL [Mass/Vol] 86 mg/dL 0-100 [facility] Comment on above: LDL ATP III CLASSIFI CATIONLDL less than 100 mg/dL OptimalLDL 100-129 mg/dL Near or above optimalLDL 130-159 mg/dL Borderline highLDL 160-189 mg/dL HighLDL greater than 189 mg/dL Very high Cholesterol in VLDL Calc [Ma ss/Vol]Ordered By: Raeann Jing on 07-20-2023 Cholesterol in VLDL [Mass/Vol] 17 mg/dL [facility] Complete Blood Count Auto Di ffon 07-20-2023 Mean Corpuscular HGB Conc 33.8 g/dL Normal 32.0-35.0 [facility] Comment on above: Performed By: #### L IPID, B12, FOL, T4F, TSH3, FSH, [id number], CMP, MG, FE and TIBC, SAKINA, CRP #### [address] NRBC% 0.1 /100{WBC} Normal 0-0.5 [facility] Comment on above: Performed By: #### L IPID, B12, FOL, T4F, TSH3, FSH, [id number], CMP, MG, FE and TIBC, SAKINA, CRP #### [address] Comprehensive Metabolic Pane maikol 07-20-2023 Albumin [Mass/Vol] 4.5 g/dL Normal 3.5-5.7 [facility] Comment on above: Performed By: #### L IPID, B12, FOL, T4F, TSH3, FSH, [id number], CMP, MG, FE and TIBC, SAKINA, CRP #### [address] GFR/1.73 sq M.predicted MDRD (S/P/Bld) [Vol rate/Area] mL/min/{1.73_m2} Normal [facility] Comment on above: Performed By: #### L IPID, B12, FOL, T4F, TSH3, FSH, [id number], CMP, MG, FE and TIBC, SAKINA, CRP #### [address] Creatinine [Mass/volume] in Serum or PlasmaOrdered By: Raeann Jang on 07-20-2023 Creatinine [Mass/Vol] 0.70 mg/dL Normal 0.60-1.20 [facility] Comment on above: Performed By: #### L IPID, B12, FOL, T4F, TSH3, FSH, [id number], CMP, MG, FE and TIBC, SAKINA, CRP #### [address] Erythrocyte Sedimentation Ra nargis 07-20-2023 ESR (Bld) [Velocity] 15 mm/h Normal 0-19 [facility] Comment on above: Result Comment: PERF ORMED BY: [place] [address] PATHOLOGIST CERTIFIED TUMOR REGISTRAR SADAF YOUNGBLOOD M.D. Performed By: #### L IPID, B12, FOL, T4F, TSH3, FSH, [id number], CMP, MG, FE and TIBC, SAKINA, CRP #### [address] Erythrocyte distribution wid th [Ratio] by Automated countOrdered By: Raeann Jang on 07-20-2023 Erythrocyte distribution width (RBC) [Ratio] 12.3 % Normal 11.9-15.3 [facility] Comment on above: Performed By: #### L IPID, B12, FOL, T4F, TSH3, FSH, [id number], CMP, MG, FE and TIBC, SAKINA, CRP #### [address] Erythrocyte sedimentation ra te by Photometric methodOrdered By: Raeann Jang on 07-20-2023 ESR Photometric method (Bld) [Velocity] 15 mm/hr 0-19 [facility] Erythrocytes [#/volume] in B lood by Automated countOrdered By: Raeann Jang on 07-20-2023 RBC (Bld) [#/Vol] 4.11 10*6/uL Normal 3.60-5.00 [facility] Comment on above: Performed By: #### L IPID, B12, FOL, T4F, TSH3, FSH, [id number], CMP, MG, FE and TIBC, SAKINA, CRP #### [facility] [address] [place] [address] [facility] Estradiolon 07-20-2023 Estradiol 126.0 pg/mL Normal . [facility] Comment on above: Result Comment: Adul t Female: Follicular phase 12.5 - 166.0 Ovulation phase 85.8 - 498.0 Luteal phase 43.8 - 211.0 Postmenopausal <6.0 - 54.7 1st trimester 215.0 - >4300.0 Heather ECLIA methodology PERFORMED BY: [place] [address] PATHOLOGIST CERTIFIED TUMOR REGISTRAR SADAF YOUNGBLOOD M.D. Performed By: #### L IPID, B12, FOL, T4F, TSH3, FSH, [id number], CMP, MG, FE and TIBC, SAKINA, CRP #### [facility] [address] [place] [id number] [facility] Ferritin [Mass/volume] in Se rum or PlasmaOrdered By: Raeann Jang on 07-20-2023 Ferritin [Mass/Vol] 20.3 ng/mL Normal 11.0-306.8 [facility] Comment on above: Performed By: #### L IPID, B12, FOL, T4F, TSH3, FSH, [id number], CMP, MG, FE and TIBC, SAKINA, CRP #### [facility] [address] [place] [address] [facility] Folateon 07-20-2023 Folate 10.4 ng/mL Normal >5.9 [facility] Comment on above: Result Comment: Yulia te reference range: >5.9 ng/ml The WHO technical consultation on folate and vitamin b12 deficiencies has determined that folate concentrations less than 4 ng/ml are considered deficient. Performed By: #### L IPID, B12, FOL, T4F, TSH3, FSH, [id number], CMP, MG, FE and TIBC, SAKINA, CRP #### [facility] [address] [place] [id number] [facility] Folate [Mass/volume] in Seru m or PlasmaOrdered By: Raeann Jang on 07-20-2023 Folate [Mass/Vol] 10.4 ng/mL >5.9 [facility] Comment on above: Folate reference ran ge: >5.9 ng/mlThe WHO technical consultation on folate and vitamin [id number] has determined that folate concentrations lessthan 4 ng/ml are considered deficient. Follicle Stimulating Hormone on 07-20-2023 Follicle Stimulating Hormone 2.8 m[iU]/mL Normal [facility] Comment on above: Result Comment: FEMA LE NORMALS (PREMENOPAUSE) MID-FOLLICULAR PHASE: 3.9-8.8 mIU/mL MID-CYCLE PEAK: 4.5-22.5 mIU/mL MID-LUTEAL PHASE: 1.8-5.1 mIU/mL FEMALE NORMALS (POSTMENOPAUSE): 16.7-113.6 mIU/mL MALE NORMALS: 1.3-19.3 mIU/mL Performed By: #### L IPID, B12, FOL, T4F, TSH3, FSH, [id number], CMP, MG, FE and TIBC, SAKINA, CRP #### [facility] [address] [place] [address] [facility] Follitropin [Units/volume] i n Serum or PlasmaOrdered By: Raeann Jang on 07-20-2023 Follitropin Qn 2.8 m[IU]/mL [facility] Comment on above: FEMALE NORMALS (FLOWER ENOPAUSE) MID-FOLLICULAR PHASE: 3.9-8.8 mIU/mL MID-CYCLE PEAK: 4.5-22.5 mIU/mL MID-LUTEAL PHASE: 1.8-5.1 mIU/mLFEMALE NORMALS (POSTMENOPAUSE): 16.7-113.6 mIU/mLMALE NORMALS: 1.3-19.3 mIU/mL Free testosterone measuremen t by LC-MS/MSOrdered By: Raeann Jang on 07-20-2023 Testosterone Free [Mass/Vol] 1.5 pg/mL 0.0-4.2 [facility] Comment on above: Performed at: CB - [facility] [address] [id number] Director: Alf Simpson PhD, Phone: [phone] at: - [facility] [address] [id number] Director: Jayne Mann MD, Phone: [phone] Glucose [Mass/volume] in Ser um or PlasmaOrdered By: Raeann Jang on 07-20-2023 Glucose [Mass/Vol] 76 mg/dL Normal 70-100 [facility] Comment on above: ADA recommended refe rence rangeRandom Glucose Reference Range is dependent on time and content of last meal. Glucose of more than 200 mg/dL in a nonstressed, ambulatory subject supports the diagnosis of Diabetes Mellitus. Result Comment: [place] om Glucose Reference Range is dependent on time and content of last meal. Glucose of more than 200 mg/dL in a nonstressed, ambulatory subject supports the diagnosis of Diabetes Mellitus. ADA recommended reference range Performed By: #### L IPID, B12, FOL, T4F, TSH3, FSH, [id number], CMP, MG, FE and TIBC, SAKINA, CRP #### [facility] [address] Hematocrit [Volume Fraction] of Blood by Automated countOrdered By: Raeann Jang on 07-20-2023 Hematocrit (Bld) [Volume fraction] 37.1 % Normal 34.0-46.4 [facility] Comment on above: Performed By: #### L IPID, B12, FOL, T4F, TSH3, FSH, [id number], CMP, MG, FE and TIBC, SAKINA, CRP #### [facility] [address] Hemoglobin [Mass/volume] in BloodOrdered By: Raeann Jang on 07-20-2023 Hemoglobin (Bld) [Mass/Vol] 12.5 g/dL Normal 11.8-15.4 [facility] Comment on above: Performed By: #### L IPID, B12, FOL, T4F, TSH3, FSH, [id number], CMP, MG, FE and TIBC, SAKINA, CRP #### [facility] [address] Insulinon 07-20-2023 Insulin 8.2 u[iU]/mL Normal 2.6-24.9 [facility] Comment on above: Result Comment: Perf ormed at: - [facility] [address] [id number] Wood [employer]: Alf Simpson PhD, Phone: [phone] Performed By: #### L IPID, B12, FOL, T4F, TSH3, FSH, [id number], CMP, MG, FE and TIBC, SAKINA, CRP #### [address] Iron [Mass/volume] in Serum or PlasmaOrdered By: Raeann Jang on 07-20-2023 Iron [Mass/Vol] 122 ug/dL Normal 50-212 [facility] Comment on above: Performed By: #### L IPID, B12, FOL, T4F, TSH3, FSH, [id number], CMP, MG, FE and TIBC, SAKINA, CRP #### [address] Iron and TIBC Profileon 06-22 % Iron Saturation 28.6 % Normal 20-50 [facility] Comment on above: Performed By: #### L IPID, B12, FOL, T4F, TSH3, FSH, [id number], CMP, MG, FE and TIBC, SAKINA, CRP #### [address] Total Iron Binding Capacity 427 ug/dL Normal 255-450 [facility] Comment on above: Performed By: #### L IPID, B12, FOL, T4F, TSH3, FSH, [id number], CMP, MG, FE and TIBC, SAKINA, CRP #### [address] Iron binding capacity [Mass/ volume] in Serum or PlasmaOrdered By: Raeann Jang on 07-20-2023 Iron binding capacity [Mass/Vol] 427 ug/dL 255-450 [facility] Iron saturation [Mass Fracti on] in Serum or PlasmaOrdered By: Raeann Jang on 07-20-2023 Iron saturation [Mass fraction] 28.6 % 20-50 [facility] Leukocytes [#/volume] correc paulie for nucleated erythrocytes in Blood by Automated counOrdered By: Raeann Jang on 07-20-2023 WBC corrected for nucl RBC Auto (Bld) [#/Vol] 6.7 10*3/uL 3.8-11.6 [facility] Leukocytes [#/volume] in Blo od by Automated countOrdered By: Raeann Jang on 07-20-2023 WBC (Bld) [#/Vol] 6.7 10*3/uL Normal 3.8-11.6 [facility] Comment on above: Performed By: #### L IPID, B12, FOL, T4F, TSH3, FSH, [id number], CMP, MG, FE and TIBC, SAKINA, CRP #### [facility] [address] Lipid Panelon 07-20-2023 LDL Cholesterol,Calculated 86 mg/dL Normal 0-100 [facility] Comment on above: Result Comment: LDL ATP III CLASSIFICATION LDL less than 100 mg/dL Optimal LDL 100-129 mg/dL Near or above optimal LDL 130-159 mg/dL Borderline high LDL 160-189 mg/dL High LDL greater than 189 mg/dL Very high Performed By: #### L IPID, B12, FOL, T4F, TSH3, FSH, [id number], CMP, MG, FE and TIBC, SAKINA, CRP #### [facility] [address] [place] [id number] [facility] Triglyceride w/Reflex 85 mg/dL Normal 0-149 [facility] Comment on above: Result Comment: TRIG ATP III CLASSIFICATION TRIG less than 150 mg/dL Normal TRIG 150-199 mg/dL Borderline high TRIG 200-500 mg/dL High TRIG greater than 500 mg/dL Very high Standard traceable to the Center for Disease Conrtrol and Prevention (CDC) test method. Performed By: #### L IPID, B12, FOL, T4F, TSH3, FSH, [id number], CMP, MG, FE and TIBC, SAKINA, CRP #### [address] VLDL CHOLESTEROL 17 mg/dL Normal [facility] Comment on above: Performed By: #### L IPID, B12, FOL, T4F, TSH3, FSH, [id number], CMP, MG, FE and TIBC, SAKINA, CRP #### [address] Luteinizing Hormoneon 2022 Luteinizing Hormone 5.5 m[iU]/mL Normal . [facility] Comment on above: Result Comment: Adul t Female: Follicular phase 2.4 - 12.6 Ovulation phase 14.0 - 95.6 Luteal phase 1.0 - 11.4 Postmenopausal 7.7 - 58.5 Performed By: #### L IPID, B12, FOL, T4F, TSH3, FSH, [id number], CMP, MG, FE and TIBC, SAKINA, CRP #### [address] Lymphocytes [#/volume] in Bl ood by Automated countOrdered By: Raeann Jang on 07-20-2023 Lymphocytes (Bld) [#/Vol] 1.6 10*3/uL Normal 1.00-4.8 [facility] Comment on above: Performed By: #### L IPID, B12, FOL, T4F, TSH3, FSH, [id number], CMP, MG, FE and TIBC, SAKINA, CRP #### [address] Lymphocytes/100 leukocytes i n Blood by Automated countOrdered By: Raeann Jang on 07-20-2023 Lymphocytes/100 WBC (Bld) 23.9 % Normal . [facility] Comment on above: Performed By: #### L IPID, B12, FOL, T4F, TSH3, FSH, [id number], CMP, MG, FE and TIBC, SAKINA, CRP #### [address] MCH [Entitic mass] by Automa paulie countOrdered By: Raeann Jang on 10-31-2023 MCH (RBC) [Entitic mass] 30.5 pg Normal 24.7-34.3 [facility] Comment on above: Performed By: #### L IPID, B12, FOL, T4F, TSH3, FSH, [id number], CMP, MG, FE and TIBC, SAKINA, CRP #### [address] MCHC Auto (RBC) [Mass/Vol]Or dered By: Raeann Jang on 07-20-2023 MCHC (RBC) [Mass/Vol] 33.8 g/dL 32.0-35.0 [facility] MCV [Entitic volume] by Auto mated countOrdered By: Raeann Jang on 07-20-2023 MCV (RBC) [Entitic vol] 90.1 fL Normal 80-100 [facility] Comment on above: Performed By: #### L IPID, B12, FOL, T4F, TSH3, FSH, [id number], CMP, MG, FE and TIBC, SAKINA, CRP #### [address] Magnesium [Mass/volume] in S ulises or PlasmaOrdered By: Raeann Jang on 07-20-2023 Magnesium [Mass/Vol] 1.9 mg/dL Normal 1.9-2.7 [facility] Comment on above: Performed By: #### L IPID, B12, FOL, T4F, TSH3, FSH, [id number], CMP, MG, FE and TIBC, SAKINA, CRP #### [address] Neutrophils [#/volume] in Bl ood by Automated countOrdered By: Raeann Jang on 07-20-2023 Neutrophils (Bld) [#/Vol] 4.7 10*3/uL Normal 1.8-7.7 [facility] Comment on above: Performed By: #### L IPID, B12, FOL, T4F, TSH3, FSH, [id number], CMP, MG, FE and TIBC, SAKINA, CRP #### [address] No Panel InformationOrdered By: Raeann Jang on 07-20-2023 Estimated GFR (CKD-EPI) > 60.0 mL/Min [facility] Creatinine Clearance (Chem N/A [facility] Nucleated erythrocytes [Pres ence] in Blood by Automated countOrdered By: Raeann Jang on 07-20-2023 Nucleated RBC Auto Ql (Bld) 0.1 /100{WBC} 0-0.5 [facility] Platelet mean volume [Entiti c volume] in Blood by Automated countOrdered By: Raeann Jang on 07-20-2023 Platelet mean volume (Bld) [Entitic vol] 8.8 fL Normal 6.3-10.7 [facility] Comment on above: Performed By: #### L IPID, B12, FOL, T4F, TSH3, FSH, [id number], CMP, MG, FE and TIBC, SAKINA, CRP #### [facility] [address] [place] [address] Platelets [#/volume] in Bloo d by Automated countOrdered By: Raeann Jang on 07-20-2023 Platelets (Bld) [#/Vol] 344 10*3/uL Normal 150-450 [facility] Comment on above: Performed By: #### L IPID, B12, FOL, T4F, TSH3, FSH, [id number], CMP, MG, FE and TIBC, SAKINA, CRP #### [facility] [address] [place] [address] Potassium [Moles/volume] in Serum or PlasmaOrdered By: Raeann Jang on 07-20-2023 Potassium [Moles/Vol] 4.2 mmol/L Normal 3.5-5.1 [facility] Comment on above: Performed By: #### L IPID, B12, FOL, T4F, TSH3, FSH, [id number], CMP, MG, FE and TIBC, SAKINA, CRP #### [facility] [address] [place] [address] Progesteroneon 07-20-2023 Progesterone 13.5 ng/mL Normal . [facility] Comment on above: Result Comment: Foll icular phase 0.1 - 0.9 Luteal phase 1.8 - 23.9 Ovulation phase 0.1 - 12.0 First trimester 11.0 - 44.3 Second trimester 25.4 - 83.3 Third trimester 58.7 - 214.0 Postmenopausal 0.0 - 0.1 Performed at: [facility] [address] [id number] [employer]: Alf Simpson PhD, Phone: [phone] Performed By: #### L IPID, B12, FOL, T4F, TSH3, FSH, [id number], CMP, MG, FE and TIBC, SAKINA, CRP #### [address] Protein [Mass/volume] in Ser um or PlasmaOrdered By: Raeann Jang on 07-20-2023 Protein [Mass/Vol] 7.0 g/dL Normal 6.4-8.9 [facility] Comment on above: Performed By: #### L IPID, B12, FOL, T4F, TSH3, FSH, [id number], CMP, MG, FE and TIBC, SAKINA, CRP #### [address] Serum globulin measurement b y calculation (mass/volume)Ordered By: Raeann Jang on 07-20-2023 Globulin (S) [Mass/Vol] 2.5 g/dL Normal [facility] Comment on above: Performed By: #### L IPID, B12, FOL, T4F, TSH3, FSH, [id number], CMP, MG, FE and TIBC, SAKINA, CRP #### [address] Serum or plasma albumin/glob ulin mass ratioOrdered By: Raeann Jang on 07-20-2023 Albumin/Globulin [Mass ratio] 1.8 {ratio} Normal [facility] Comment on above: Performed By: #### L IPID, B12, FOL, T4F, TSH3, FSH, [id number], CMP, MG, FE and TIBC, SAKINA, CRP #### [address] Serum or plasma anion gap de terminationOrdered By: Raeann Jang on 07-20-2023 Anion gap [Moles/Vol] 11.4 mmol/L Normal 6.0-15.0 [facility] Comment on above: Performed By: #### L IPID, B12, FOL, T4F, TSH3, FSH, [id number], CMP, MG, FE and TIBC, SAKINA, CRP #### [facility] [address] Serum or plasma estradiol (E 2) measurement (mass/volume)Ordered By: Raeann Jang on 07-20-2023 E2 [Mass/Vol] 126.0 pg/mL . [facility] Comment on above: Adult Female: Follic ular phase 12.5 - 166.0 Ovulation phase 85.8 - 498.0 Luteal phase 43.8 - 211.0 Postmenopausal <6.0 - 54.7 1st trimester 215.0 - >4300.0Roche ECLIA methodology Serum or plasma high density lipoprotein (HDL) cholesterol measurementOrdered By: Raeann Jang on 07-20-2023 Cholesterol in HDL [Mass/Vol] 45 mg/dL Normal 23-92 [facility] Comment on above: HDL CHOL ATP-III CLA SSIFICATION Cardiovascular RiskHDL > or equal to 60 mg/dL LOWHDL < 40 mg/dL HIGH Result Comment: HDL CHOL ATP-III CLASSIFICATION Cardiovascular Risk HDL > or equal to 60 mg/dL LOW HDL < 40 mg/dL HIGH Performed By: #### L IPID, B12, FOL, T4F, TSH3, FSH, [id number], CMP, MG, FE and TIBC, SAKINA, CRP #### [facility] [address] Serum or plasma insulin michael urement (units/volume)Ordered By: Raeann Jang on 07-20-2023 Insulin Qn 8.2 u[iU]/mL 2.6-24.9 [facility] Comment on above: Performed at: [facility] [address] [id number] Director: Alf Simpson PhD, Phone: [phone] Serum or plasma lutropin mandeep surement (units/volume)Ordered By: Raeann Jang on 07-20-2023 Lutropin Qn 5.5 m[IU]/mL . [facility] Comment on above: Adult Female: Follic ular phase 2.4 - 12.6 Ovulation phase 14.0 - 95.6 Luteal phase 1.0 - 11.4 Postmenopausal 7.7 - 58.5 Serum or plasma progesterone measurement (mass/volume)Ordered By: Raeann Jang on 07-20-2023 Progesterone [Mass/Vol] 13.5 ng/mL . [facility] Comment on above: Follicular phase 0.1 - 0.9 Luteal phase 1.8 - 23.9 Ovulation phase 0.1 - 12.0 First trimester 11.0 - 44.3 Second trimester 25.4 - 83.3 Third trimester 58.7 - 214.0 Postmenopausal 0.0 - 0.1Performed at: [facility] [address] [id number] Director: Alf Simpson PhD, Phone: [phone] Serum or plasma total choles terol/high density lipoprotein (HDL) cholesterol mass ratOrdered By: Raeann Jang on 07-20-2023 Cholesterol.total/Choles terol in HDL [Mass ratio] 3.3 {ratio} Normal <5.0 [facility] Comment on above: Performed By: #### L IPID, B12, FOL, T4F, TSH3, FSH, [id number], CMP, MG, FE and TIBC, SAKINA, CRP #### [facility] [address] [place] [address] [place] Sodium [Moles/volume] in Ser um or PlasmaOrdered By: Raeann Jang on 07-20-2023 Sodium [Moles/Vol] 140 mmol/L Normal 136-145 [facility] Comment on above: Performed By: #### L IPID, B12, FOL, T4F, TSH3, FSH, [id number], CMP, MG, FE and TIBC, SAKINA, CRP #### [facility] [address] [place] [id number] [place] Testosterone Free TotalOrder ed By: Raeann Jang on 07-20-2023 Testosterone [Mass/Vol] 25 ng/dL Normal 13-71 [facility] Comment on above: Performed By: #### L IPID, B12, FOL, T4F, TSH3, FSH, [id number], CMP, MG, FE and TIBC, SAKINA, CRP #### [address] Testosterone Free Totalon Testosterone,Free 1.5 pg/mL Normal 0.0-4.2 [facility] Comment on above: Result Comment: Perf ormed at: CB - [facility] [address] [id number] [employer]: Alf Simpson PhD, Phone: [phone] Performed at: - [facility] [address] [id number] [employer]: Jayne Mann MD, Phone: [phone] Performed By: #### L IPID, B12, FOL, T4F, TSH3, FSH, [id number], CMP, MG, FE and TIBC, SAKINA, CRP #### [place] [address] [place] Thyrotropin [Units/volume] i n Serum or PlasmaOrdered By: Raeann Jang on 07-20-2023 TSH Qn 1.01 m[IU]/L Normal 0.45-5.33 [facility] Comment on above: Performed By: #### L IPID, B12, FOL, T4F, TSH3, FSH, [id number], CMP, MG, FE and TIBC, SAKINA, CRP #### [facility] [address] [place] [address] [place] Thyroxine (T4) free [Mass/vo lume] in Serum or PlasmaOrdered By: Raeann Jang on 07-20-2023 Free T4 [Mass/Vol] 0.92 ng/dL Normal 0.61-1.12 [facility] Comment on above: Performed By: #### L IPID, B12, FOL, T4F, TSH3, FSH, [id number], CMP, MG, FE and TIBC, SAKINA, CRP #### [address] Transferrin [Mass/volume] in Serum or PlasmaOrdered By: Raeann Jang on 07-20-2023 Transferrin [Mass/Vol] 305 mg/dL Normal 203-362 [facility] Comment on above: Performed By: #### L IPID, B12, FOL, T4F, TSH3, FSH, [id number], CMP, MG, FE and TIBC, SAKINA, CRP #### [facility] [address] Triglyceride [Mass/volume] i n Serum or PlasmaOrdered By: Raeann Jang on 07-20-2023 Triglyceride [Mass/Vol] 85 mg/dL 0-149 [facility] Comment on above: TRIG ATP III CLASSIF ICATIONTRIG less than 150 mg/dL NormalTRIG 150-199 mg/dL Borderline highTRIG 200-500 mg/dL High TRIG greater than 500 mg/dL Very highStandard traceable to the Center for Disease Conrtrol and Prevention (CDC) test method. Triiodothyronine (T3) Freeon 07-20-2023 Triiodothyronine (T3) Free 4.11 pg/mL High 2.50-3.90 [facility] Comment on above: Result Comment: PERF ORMED BY: [place] [address] PATHOLOGIST CERTIFIED TUMOR REGISTRAR SADAF YOUNGBLOOD M.D. Performed By: #### L IPID, B12, FOL, T4F, TSH3, FSH, [id number], CMP, MG, FE and TIBC, SAKINA, CRP #### [facility] [address] [place] [address] Triiodothyronine (T3) Free [ Mass/volume] in Serum or PlasmaOrdered By: Raeann Jang on 07-20-2023 Free T3 [Mass/Vol] 4.11 pg/mL 2.50-3.90 [facility] Urea nitrogen [Mass/volume] in Serum or PlasmaOrdered By: Raeann Jang on 07-20-2023 Urea nitrogen [Mass/Vol] 8 mg/dL Normal 7-25 [facility] Comment on above: Performed By: #### L IPID, B12, FOL, T4F, TSH3, FSH, [id number], CMP, MG, FE and TIBC, SAKINA, CRP #### [facility] [address] Vitamin B12 ser/plasOrdered By: Raeann Jang on 07-20-2023 Cobalamin (Vitamin B12) [Mass/Vol] 384 pg/mL Normal 180-914 [facility] Comment on above: Performed By: #### L IPID, B12, FOL, T4F, TSH3, FSH, [id number], CMP, MG, FE and TIBC, SAKINA, CRP #### [facility] [address] Vitamin D 25 Hydroxy Totalon 07-20-2023 Vitamin D 25 Hydroxy Total 49.5 ng/mL Normal 30-100 [facility] Comment on above: Result Comment: NATALIE MIN D STATUS 25(OH)VITAMIN D RANGE (ng/mL) Deficient <20 Insufficient 20 to <30 Sufficient 30 to 100 Reference: Manish Bruno, Donis MANDEL, et al. Evaluation,treatment, and prevention of vitamin D deficiency; an Endocrine Society clinical practice guideline. JCEM. 2010; 96(7):1911-. PERFORMED BY: [place] [address] PATHOLOGIST CERTIFIED TUMOR REGISTRAR SADAF YOUNGBLOOD M.D. Performed By: #### L IPID, B12, FOL, T4F, TSH3, FSH, [id number], CMP, MG, FE and TIBC, SAKINA, CRP #### [facility] [address] [place] [address] Vitamin D+Metabolites [Mass/ volume] in Serum or PlasmaOrdered By: Raeann Jang on 07-20-2023 Vitamin D+Metabolites [Mass/Vol] 49.5 ng/mL 30-100 [facility] Comment on above: VITAMIN D STATUS 25( [place])VITAMIN D RANGE (ng/mL) Deficient <20 Insufficient 20 to <30Sufficient 30 to 100Reference: Manish Bruno, Donis MANDEL, et al. Evaluation,treatment, and prevention of vitamin D deficiency; an Endocrine Society clinical practice guideline. JCEM. 2010; 96(7):1911-30. Alanine aminotransferase [En zymatic activity/volume] in Serum or PlasmaOrdered By: Tiarra Childs on 05-27-2023 ALT [Catalytic activity/Vol] 10 U/L 7-52 [facility] Albumin [Mass/volume] in Ser um or Plasma by Bromocresol green (BCG) dye binding methoOrdered By: Tiarra Childs on 05-27-2023 Albumin BCG dye [Mass/Vol] 4.4 g/dL 3.5-5.7 [facility] Alkaline phosphatase [Enzyma tic activity/volume] in Serum or PlasmaOrdered By: Tiarra Childs on 05-27-2023 ALP [Catalytic activity/Vol] 53 U/L [facility] [facility] Aspartate aminotransferase [ Enzymatic activity/volume] in Serum or PlasmaOrdered By: Tiarra Childs on 05-27-2023 AST [Catalytic activity/Vol] 20 U/L 13-39 [facility] Basophils Auto (Bld) [#/Vol] Ordered By: Tiarra Childs on 05-27-2023 Basophils (Bld) [#/Vol] 0.0 10*3/uL 0.0-0.2 [facility] Basophils/100 WBC Auto (Bld) Ordered By: Tiarra Childs on 05-27-2023 Basophils/100 WBC (Bld) 0.5 % . [facility] Bilirubin.total [Mass/volume ] in Serum or PlasmaOrdered By: Tiarra Childs on 05-27-2023 Bilirubin [Mass/Vol] 1.5 mg/dL 0.3-1.0 [facility] Comment on above: Samples from patient s who have taken Naproxen have shown spurious elevation in Total Bilirubin levels. A metabolite of Naproxen, O-desmethylnaproxen, has been shown to interfere with the Radhika method for measuring Total Bilirubin. Calcium [Mass/volume] in Ser um or PlasmaOrdered By: Tiarra Childs on 05-27-2023 Calcium [Mass/Vol] 10.0 mg/dL 8.6-10.3 [facility] Carbon dioxide, total [Moles /volume] in Serum or PlasmaOrdered By: Tiarra Childs on 05-27-2023 CO2 [Moles/Vol] 27.0 mmol/L 21.0-31.0 [facility] Chloride [Moles/volume] in S ulises or PlasmaOrdered By: Tiarra Childs on 05-27-2023 Chloride [Moles/Vol] 104 mmol/L 98-107 [facility] Choriogonadotropin.beta subu nit [Units/volume] in Serum or PlasmaOrdered By: Tiarra Childs on 05-27-2023 HCG.beta subunit Qn 400.13 m[IU]/mL [facility] Comment on above: Approximate Approxim ate hCG Gestational Age Range (mIU/ml) (weeks)0.2-1 5-50 1-2 50-500 2-3 100-5,000 3-4 500-10,000 4-5 1,000-50,000 5-6 10,000-100,000 6-8 15,000-200,000 8-12 10,000-100,000 Creatinine [Mass/volume] in Serum or PlasmaOrdered By: Tiarra Childs on 05-27-2023 Creatinine [Mass/Vol] 0.74 mg/dL 0.60-1.20 [facility] Eosinophils Auto (Bld) [#/Vo l]Ordered By: Tiarra Childs on 05-27-2023 Eosinophils (Bld) [#/Vol] 0.1 10*3/uL 0.0-0.45 [facility] Eosinophils/100 WBC Auto (Bl d)Ordered By: Tiarra Childs on 05-27-2023 Eosinophils/100 WBC (Bld) 1.5 % . [facility] Erythrocyte distribution wid th Auto (RBC) [Ratio]Ordered By: Tiarra Childs on 05-27-2023 Erythrocyte distribution width (RBC) [Ratio] 13.2 % 11.9-15.3 [facility] Ferritin [Mass/volume] in Se rum or PlasmaOrdered By: Tiarra Childs on 05-27-2023 Ferritin [Mass/Vol] 10.1 ng/mL 11.0-306.8 [facility] Folate [Mass/volume] in Seru m or PlasmaOrdered By: Tiarra Childs on 09-07-2023 Folate [Mass/Vol] 16.2 ng/mL >5.9 [facility] Comment on above: Folate reference ran ge: >5.9 ng/mlThe WHO technical consultation on folate and vitamin [id number] has determined that folate concentrations lessthan 4 ng/ml are considered deficient. Globulin Calc (S) [Mass/Vol] Ordered By: Tiarra Childs on 05-27-2023 Globulin (S) [Mass/Vol] 3.0 g/dL [facility] Glucose [Mass/volume] in Ser um or PlasmaOrdered By: Tiarra Childs on 05-27-2023 Glucose [Mass/Vol] 73 mg/dL 70-100 [facility] Comment on above: ADA recommended refe rence rangeRandom Glucose Reference Range is dependent on time and content of last meal. Glucose of more than 200 mg/dL in a nonstressed, ambulatory subject supports the diagnosis of Diabetes Mellitus. Glucose mean value [Mass/vol ume] in Blood Estimated from glycated hemoglobinOrdered By: Tiarra Childs on 05-27-2023 Average glucose Estimated from glycated hemoglobin (Bld) [Mass/Vol] 94 mg/dL [facility] Hematocrit Auto (Bld) [Volum e fraction]Ordered By: Tiarra Childs on 05-27-2023 Hematocrit (Bld) [Volume fraction] 37.5 % 34.0-46.4 [facility] Hemoglobin A1c percentageOrd ered By: Tiarra Childs on 05-27-2023 HbA1c (Bld) [Mass fraction] 4.9 % 4.3-5.6 [facility] Comment on above: Increased risk for d iabetes: 5.7 - 6.4diabetes: >6.4glycemic control for adults with diabetes: <7.0 Hemoglobin [Mass/volume] in BloodOrdered By: Tiarra Childs on 05-27-2023 Hemoglobin (Bld) [Mass/Vol] 13.1 g/dL 11.8-15.4 [facility] Iron [Mass/volume] in Serum or PlasmaOrdered By: Tiarra Childs on 05-27-2023 Iron [Mass/Vol] 94 ug/dL 50-212 [facility] Iron binding capacity [Mass/ volume] in Serum or PlasmaOrdered By: Tiarra Childs on 05-27-2023 Iron binding capacity [Mass/Vol] 514 ug/dL 255-450 [facility] Iron saturation [Mass Fracti on] in Serum or PlasmaOrdered By: Tiarra Childs on 05-27-2023 Iron saturation [Mass fraction] 18.3 % 20-50 [facility] Leukocytes [#/volume] correc paulie for nucleated erythrocytes in Blood by Automated counOrdered By: Tiarra Childs on 05-27-2023 WBC corrected for nucl RBC Auto (Bld) [#/Vol] 6.3 10*3/uL 3.8-11.6 [facility] Lymphocytes Auto (Bld) [#/Vo l]Ordered By: Tiarra Childs on 05-27-2023 Lymphocytes (Bld) [#/Vol] 1.8 10*3/uL 1.00-4.8 [facility] Lymphocytes/100 WBC Auto (Bl d)Ordered By: Tiarra Childs on 05-27-2023 Lymphocytes/100 WBC (Bld) 29.2 % . [facility] MCH Auto (RBC) [Entitic mass ]Ordered By: Tiarra Childs on 05-27-2023 MCH (RBC) [Entitic mass] 31.5 pg 24.7-34.3 [facility] MCHC Auto (RBC) [Mass/Vol]Or dered By: Tiarra Childs on 05-27-2023 MCHC (RBC) [Mass/Vol] 34.9 g/dL 32.0-35.0 [facility] MCV Auto (RBC) [Entitic vol] Ordered By: Tiarra Childs on 05-27-2023 MCV (RBC) [Entitic vol] 90.3 fL 80-100 [facility] Monocytes Auto (Bld) [#/Vol] Ordered By: Tiarra Childs on 05-27-2023 Monocytes (Bld) [#/Vol] 0.4 10*3/uL 0.0-0.8 [facility] Monocytes/100 WBC Auto (Bld) Ordered By: Tiarra Childs on 05-27-2023 Monocytes/100 WBC (Bld) 6.7 % . [facility] Neutrophils Auto (Bld) [#/Vo l]Ordered By: Tiarra Childs on 05-27-2023 Neutrophils (Bld) [#/Vol] 3.9 10*3/uL 1.8-7.7 [facility] Neutrophils/100 WBC Auto (Bl d)Ordered By: Tiarra Childs on 05-27-2023 Neutrophils/100 WBC (Bld) 62.1 % . [facility] No Panel InformationOrdered By: Tiarra Childs on 05-27-2023 Estimated GFR (CKD-EPI) > 60.0 mL/Min [facility] Creatinine Clearance (Chem N/A [facility] Nucleated erythrocytes [Pres ence] in Blood by Automated countOrdered By: Tiarra Childs on 05-27-2023 Nucleated RBC Auto Ql (Bld) 0.1 /100{WBC} 0-0.5 [facility] Platelet mean volume Auto (B ld) [Entitic vol]Ordered By: Tiarra Childs on 05-27-2023 Platelet mean volume (Bld) [Entitic vol] 8.6 fL 6.3-10.7 [facility] Platelets Auto (Bld) [#/Vol] Ordered By: Tiarra Childs on 05-27-2023 Platelets (Bld) [#/Vol] 350 10*3/uL 150-450 [facility] Potassium [Moles/volume] in Serum or PlasmaOrdered By: Tiarra Childs on 05-27-2023 Potassium [Moles/Vol] 4.1 mmol/L 3.5-5.1 [facility] Protein [Mass/volume] in Ser um or PlasmaOrdered By: Tiarra Childs on 05-27-2023 Protein [Mass/Vol] 7.4 g/dL 6.4-8.9 [facility] RBC Auto (Bld) [#/Vol]Ordere d By: Tiarra Childs on 05-27-2023 RBC (Bld) [#/Vol] 4.15 10*6/uL 3.60-5.00 [facility] Serum or plasma albumin/glob ulin mass ratioOrdered By: Tiarra Childs on 05-27-2023 Albumin/Globulin [Mass ratio] 1.5 {ratio} [facility] Serum or plasma anion gap de terminationOrdered By: Tiarra Childs on 05-27-2023 Anion gap [Moles/Vol] 10.1 mmol/L 6.0-15.0 [facility] Serum or plasma insulin michael urement (units/volume)Ordered By: Tiarra Childs on 05-27-2023 Insulin Qn 5.5 u[iU]/mL 2.6-24.9 [facility] Comment on above: Performed at: [facility] [employer] [place] [id number] Director: Alf Simpson PhD, Phone: [phone] Sodium [Moles/volume] in Ser um or PlasmaOrdered By: Tiarra Childs on 05-27-2023 Sodium [Moles/Vol] 137 mmol/L 136-145 [facility] Thyrotropin [Units/volume] i n Serum or PlasmaOrdered By: Tiarra Childs on 05-27-2023 TSH Qn 0.95 m[IU]/L 0.45-5.33 [facility] Thyroxine (T4) free [Mass/vo lume] in Serum or PlasmaOrdered By: Tiarra Childs on 05-27-2023 Free T4 [Mass/Vol] 0.80 ng/dL 0.61-1.12 [facility] Transferrin [Mass/volume] in Serum or PlasmaOrdered By: Tiarra Childs on 05-27-2023 Transferrin [Mass/Vol] 367 mg/dL 203-362 [facility] Urea nitrogen [Mass/volume] in Serum or PlasmaOrdered By: Tiarra Childs on 05-27-2023 Urea nitrogen [Mass/Vol] 9 mg/dL 7-25 [facility] Vitamin B12 ser/plasOrdered By: Tiarra Childs on 05-27-2023 Cobalamin (Vitamin B12) [Mass/Vol] 340 pg/mL 180-914 [facility] Vitamin D+Metabolites [Mass/ volume] in Serum or PlasmaOrdered By: Tiarra Childs on 05-27-2023 Vitamin D+Metabolites [Mass/Vol] 43.5 ng/mL 30-100 [facility] Comment on above: VITAMIN D STATUS 25( [place])VITAMIN D RANGE (ng/mL) Deficient <20 Insufficient 20 to <30Sufficient 30 to 100Reference: Ambar MF,Manish MARTINEZ, Donis MANDEL, et al. Evaluation,treatment, and prevention of vitamin D deficiency; an Endocrine Society clinical practice guideline. JCEM. 2010; 96(7):1911-30. WBC Auto (Bld) [#/Vol]Ordere d By: Tiarra Childs on 05-27-2023 WBC (Bld) [#/Vol] 6.3 10*3/uL 3.8-11.6 [facility] COVID-19 Detected/Not Detect edOrdered By: Tiarra Childs on 12-09-2022 SARS-CoV-2 (COVID-19) RNA KYLAH+non-probe Ql (Nph) Not detected Not Detecte [facility] Comment on above: This is a duplicate RP2.1 COVID (PCR) result to be used for statistical tracking purpose only. Respiratory pathogens DNA an d RNA panel - Nasopharynx by KYLAH with non-probe detectionOrdered By: Tiarra Childs on 12-09-2022 Respiratory pathogens DNA and RNA panel KYLAH+non-probe (Nph) [facility] CBC AUTO DIFFon 12-04-2022 BASO # 0.0 103/ul Normal 0.0-0.1 [facility] Comment on above: Performed By: #### C BC #### [facility] [address] [place] [address] Dr. Angelica Smith Basophils/100 WBC (Bld) 0.7 % Normal 0.2-2.0 [facility] Comment on above: Performed By: #### C BC #### [facility] [address] [place] [address] Dr. Angelica Smith EO # 0.1 103/ul Normal 0.0-0.7 [facility] Comment on above: Performed By: #### C BC #### [facility] [address] [place] [address] Dr. Angelica Smith Eosinophils/100 WBC (Bld) 1.1 % Normal 0.9-7.0 [facility] Comment on above: Performed By: #### C BC #### [facility] [address] [place] [address] Dr. Angelica Smith Erythrocyte distribution width (RBC) [Ratio] 12.1 % Normal 11.0-15.0 [facility] Comment on above: Performed By: #### C BC #### [facility] [address] [place] [address] Dr. Angelica Smith Hematocrit (Bld) [Volume fraction] 39.3 % Normal 36.0-48.0 [facility] Comment on above: Performed By: #### C BC #### [facility] [address] [place] [address] Dr. Angelica Smith Hemoglobin (Bld) [Mass/Vol] 13.3 g/dL Normal 12.0-16.0 [facility] Comment on above: Performed By: #### C BC #### [facility] [address] [place] [address] Dr. Angelica Smith IG # 0.01 10e3/ul Normal 0.00-0.03 [facility] Comment on above: Performed By: #### C BC #### [facility] [address] [place] [address] Dr. Angelica Smith IG % 0.2 % Normal 0.0-0.5 [facility] Comment on above: Performed By: #### C BC #### [facility] [address] [place] [address] Dr. Angelica Smith LYMPH # 1.9 103/ul Normal 1.2-3.[address] [facility] Comment on above: Performed By: #### C BC #### [facility] [address] [place] [address] Dr. Angelica Smith Lymphocytes/100 WBC (Bld) 31.4 % Normal 20.5-60.0 [facility] Comment on above: Performed By: #### C BC #### [facility] [address] [place] [address] Dr. Angelica Smith MANUAL DIFF REQ NO Normal [facility] Comment on above: Performed By: #### C BC #### [facility] [address] [place] [address] Dr. Angelica Smith MCH (RBC) [Entitic mass] 30.3 pg Normal 26.7-34.0 [facility] Comment on above: Performed By: #### C BC #### [facility] [address] [place] [address] Dr. Angelica Smith MCHC (RBC) [Mass/Vol] 33.8 g/dL Normal 29.9-35.2 [facility] Comment on above: Performed By: #### C BC #### [facility] [address] [place] [address] Dr. Angelica Smith MCV (RBC) [Entitic vol] 89.5 fL Normal 81.0-99.0 [facility] Comment on above: Performed By: #### C BC #### [facility] [address] [place] [address] Dr. Angelica Smith MONO # 0.5 103/ul Normal 0.3-0.8 [facility] Comment on above: Performed By: #### C BC #### [facility] [address] [place] [address] Dr. Angelica Smith Monocytes/100 WBC (Bld) 7.4 % Normal 1.7-12.0 [facility] Comment on above: Performed By: #### C BC #### [facility] [address] [place] [address] Dr. Angelica Smith NEUT # 3.6 103/ul Normal 1.4-6.5 [facility] Comment on above: Performed By: #### C BC #### [facility] [address] [place] [address] Dr. Angelica Smith Neutrophils/100 WBC (Bld) 59.2 % Normal 43.0-75.0 [facility] Comment on above: Performed By: #### C BC #### [facility] [address] [place] [address] Dr. Angelica Smith Platelet mean volume (Bld) [Entitic vol] 9.7 fL Normal 9.5-13.5 [facility] Comment on above: Performed By: #### C BC #### [facility] [address] [address] [address] Angelica Smith PLT 289 103/ul Normal 150-[address] [facility] Comment on above: Performed By: #### C BC #### [facility] [address] [address] [address] Angelica Smith RBC 4.39 106/ul Normal 4.20-5.40 [facility] Comment on above: Performed By: #### C BC #### [facility] [address] [address] [address] Angelica Smith WBC 6.1 103/ul Normal 4.0-11.0 [facility] Comment on above: Performed By: #### C BC #### [facility] [address] [address] [address] Angelica Smith PREG QUANT HCGon 12-04-2022 HCG QUANT <1 Normal [facility] Comment on above: Performed By: #### P REGQNT #### [facility] [address] [address] [address] Angelica Smith HCG RANGE SEE BELOW Normal [facility] Comment on above: Result Comment: 5-50 0.2-1 WEEK 50-500 1-2 WEEKS 100-5,000 2-3 WEEKS 500-10,000 3-4 WEEKS 1,000-50,000 4-5 WEEKS 10,000-100,000 5-6 WEEKS 15,000-200,000 6-8 WEEKS 10,000-100,000 2-3 MONTHS Performed By: #### P REGQNT #### [facility] [address] [place] [address] Dr. Angelica Smith Albumin [Mass/volume] in Ser um or PlasmaOrdered By: Tiarra Childs on 10-29-2022 Albumin [Mass/Vol] 4.3 g/dL 3.2-5.5 [facility] Alternaria alternata IgE Ab [Units/volume] in SerumOrdered By: Tiarra Childs on 10-29-2022 A. alternata IgE Qn (S) <0.10 kU/L Class 0 [facility] [place] house dust mite IgE Ab [Units/volume] in SerumOrdered By: Tiarra Childs on 10-29-2022 [place] house dust mite IgE Qn (S) 0.10 kU/L Class 0/I [facility] Aspergillus fumigatus IgE Ab [Units/volume] in SerumOrdered By: Tiarra Childs on 10-29-2022 A. fumigatus IgE Qn (S) <0.10 kU/L Class 0 [facility] Shaffer's yeast IgE Ab [Units/ volume] in SerumOrdered By: Tiarra Childs on 10-29-2022 Shaffer's yeast IgE Qn (S) <0.10 kU/L Class 0 [facility] Comment on above: Performed at: [address] [id number] Director: Jayne Mann MD, Phone: [phone] Banana IgE Ab [Units/volume] in SerumOrdered By: Tiarra Childs on 10-29-2022 Banana IgE Qn (S) <0.10 kU/L Class 0 [facility] Barley IgE Ab [Units/volume] in SerumOrdered By: Tiarra Childs on 10-29-2022 Barley IgE Qn (S) 0.40 kU/L Class I [facility] Beef IgE Ab [Units/volume] i n SerumOrdered By: Tiarra Childs on 10-29-2022 Beef IgE Qn (S) <0.10 kU/L Class 0 [facility] Bermuda grass IgE Ab [Units/ volume] in SerumOrdered By: Tiarra Childs on 10-29-2022 Bermuda grass IgE Qn (S) <0.10 kU/L Class 0 [facility] Boxelder IgE Ab [Units/volum e] in SerumOrdered By: Tiarra Childs on 10-29-2022 Boxelder IgE Qn (S) <0.10 kU/L Class 0 [facility] Cheese cheddar type IgE Ab [ Units/volume] in SerumOrdered By: Tiarra Childs on 10-29-2022 Cheese cheddar type IgE Qn (S) <0.10 kU/L Class 0 [facility] Cladosporium herbarum IgE Ab [Units/volume] in SerumOrdered By: Tiarra Childs on 10-29-2022 C. herbarum IgE Qn (S) <0.10 kU/L Class 0 [facility] Cockroach IgE Ab [Units/volu me] in SerumOrdered By: Tiarra Childs on 10-29-2022 Cockroach IgE Qn (S) 0.44 kU/L Class I [facility] [place] IgE Ab [Units/volume] i n SerumOrdered By: Tiarra Childs on 10-29-2022 [place] IgE Qn (S) <0.10 kU/L Class [address] [facility] Jay IgE Ab [Units/vol ume] in SerumOrdered By: Tiarra Childs on 10-29-2022 Jay IgE Qn (S) <0.10 kU/L Class 0 [facility] Cow milk IgE Ab [Units/volum e] in SerumOrdered By: Tiarra Childs on 10-29-2022 Cow milk IgE Qn (S) <0.10 kU/L Class 0 [facility] Creatinine and Glomerular fi ltration rate.predicted panel (S/P/Bld)Ordered By: Tiarra Childs on 10-29-2022 Creatinine [Mass/Vol] 0.65 mg/dL 0.44-1.03 [facility] Dog dander IgE Ab [Units/vol ume] in SerumOrdered By: Tiarra Childs on 10-29-2022 Dog dander IgE Qn (S) 0.12 kU/L Class 0/I [facility] Estimated glomerular filtrat ion rate (GFR) non- AmericanOrdered By: Tiarra Childs on 10-29-2022 GFR/1.73 sq M.predicted among non-blacks MDRD (S/P/Bld) [Vol rate/Area] > 60 mL/Min [facility] house dust mite IgE Ab [Units/volume] in SerumOrdered By: Tiarra Childs on 10-29-2022 house dust mite IgE Qn (S) 0.26 kU/L Class 0/I [facility] Free testosterone measuremen t by LC-MS/MSOrdered By: Tiarra Childs on 10-29-2022 Testosterone Free [Mass/Vol] 3.7 pg/mL 0.0-4.2 [facility] Comment on above: Performed at: - [facility] [address] [id number] Director: Alf Simpson PhD, Phone: [phone] at: - [facility] [id number] Director: Jayne Mann MD, Phone: [phone] Gluten IgE Ab [Units/volume] in SerumOrdered By: Tiarra Childs on 10-29-2022 Gluten IgE Qn (S) <0.10 kU/L Class 0 [facility] Hepatitis B virus surface Ag [Presence] in Serum or Plasma by ImmunoassayOrdered By: Tiarra Childs on 10-29-2022 HBV surface Ag IA Ql Negative Negative [facility] Hepatitis C virus RNA [Units /volume] (viral load) in Serum or Plasma by KYLAH with probOrdered By: Tiarra Childs on 10-29-2022 HCV RNA KYLAH+probe Qn N/A [facility] Hepatitis C virus RNA [log u nits/volume] (viral load) in Serum or Plasma by KYLAH withOrdered By: Tiarra Childs on 10-29-2022 HCV RNA KYLAH+probe [Log units/Vol] N/A [facility] Human leukocyte antigen (HLA ) DQ2 detectionOrdered By: Tiarra Childs on 10-29-2022 HLA-DQ2 Ql (Bld/Tiss) Negative . [facility] Human leukocyte antigen (HLA ) DQ8 detectionOrdered By: Tiarra Childs on 10-29-2022 HLA-DQ8 Ql (Bld/Tiss) Negative . [facility] Comment on above: Final Results:DQA1*0 5:EETCV,-DQB1*03:EETKC,-Code Translation:EETCV 05:09/24:05/05:09/05:11/05:12/05:13/05:14 /05:16/05:17N/05:20/05:24/05:25/05:26 05:2805:29Q/05:30/05:32/05:34/05:35 /05:37/05:39/05:42/05:43/05:44/05:45/05:46 /05:48/05:50/05:51/05:53/05:58/05:59/05:60 /05:62/05:64EETKC 03:09/22:06/22:03/12:06/12:08/12:09/12::14/12:15/12:16/12:35:3603:4203:44 03:4603:4703:4803:4903:5003:51/03:52 /03:53/03:5403:5503:5603:57/03:58/03:59 /03:60/03:69/03:73/03:75/03:76/03:77/03:78 /03:82/03:83/03:84N/03:92/03:93/03:94 /03:101/03:102/03:103/03:108/03:109/03:114 /03:115/03:116/03:118N/03:119/03:120 /03:121/03:122/03:127/03:128/03:129/03:130 /03:131/03:133/03:134/03:135/03:139/03:140 /03:142/03:143/03:144/03:147/03:148/03:151 /03:152/03:154/03:157/03:158/03:159/03:160 /03:162/03:163/03:164/03:165/03:166/03:167 /03:169/03:170/03:171/03:173/03:182/03:183 /03:186/03:188/03:191/03:192/03:193/03:196 /03:197Q/03:198/03:201/03:202/03:206 /03:207/03:208/03:216/03:218/03:219/03:231 /03:232/03:235/03:236/03:241/03:242/03:243 /03:246/03:252/03:253/03:254/03:255/03:257 /03:260/:264/:266/:267/03:268/:271 /03:275/:276N/03:281/03:284/03:285 /:288/:290/:291/:292/:293/:294 /:297/03:302/03:303N/03:305/03:306 /:307/03:309/03:311/03:312/03:314/03:317 /03:326/03:328/03:329/03:330/03:331 /03:338N/03:340N/03:341/03:342/03:347 /03:350/03:353/03:354N/03:358N/03:361 /03:366/03:370/03:372/03:373/03:377/03:378 /03:380/03:385N/03:387/03:389/03:390 /03:391/03:394/03:396/03:399N/03:400N /03:404/03:407N/03:408/03:417/03:418 /03:419/03:420/03:421/03:423/03:424/03:425 /03:426/03:427N/03:428/03:430/03:431 /03:432/03:434/03:435/03:436/03:438/03:439 /03:448/03:449/03:451/03:454/03:455/03:458 /03:460/03:465/03:467/03:468/03:469/:470 /03:472/03:473N/03:475/03:476/03:480Q /03:482/03:483/03:486/03:488N/03:491/03:492The patient is positive for DQA1*05, one half of the UU1cdglecgansn. The Celiac Disease risk from the HLA DQA/DQBgenotype is approximately 1:1842 (0.05%). This is lessthan the 1% risk in the general population.Allele interpretation for all loci based on IMGT/HLAdatabase version 3.49.0Sus[facility]. Allen Memorial HospitalIA ID Number [id number] than 95% of celiac patients are positive for eitherDQ2 or DQ8 (Kirt and Neela, (1993) [id number]). However these antigens may also be present inpatients who do not have Celiac disease. IgE [Units/volume] in Serum or PlasmaOrdered By: Tiarra Childs on 10-29-2022 IgE Qn 5 [IU]/mL 6-495 [facility] - Chemistry and C hemistry - challengeOrdered By: Tiarra Childs on 10-29-2022 Testosterone [Mass/Vol] 41 ng/dL 13-71 [facility] [place] IgE Ab [Uni ts/volume] in SerumOrdered By: Tiarra Childs on 10-29-2022 [place] IgE Qn (S) 0.19 kU/L Class 0/I [facility] Mouse urine proteins IgE Ab [Units/volume] in SerumOrdered By: Tiarra Childs on 10-29-2022 Mouse urine proteins IgE Qn (S) <0.10 kU/L Class 0 [facility] No Panel InformationOrdered By: Tiarra Childs on 10-29-2022 Allergen Note See comment . [facility] Comment on above: Levels of Specific I gE Class Description of Class ----- < 0.10 0 Negative 0.10 - 0.31 0/I Equivocal/Low 0.32 - 0.55 I Low 0.56 - 1.40 II Moderate 1.41 - 3.90 III High 3.91 - 19.00 IV Very High 19.01 - 100.00 V Very High >100.00 Very High C-Peptide 1.7 ng/mL 1.1-4.4 [facility] Comment on above: C-Peptide reference interval is for fasting patients.Performed at: - [facility] [id number] Director: Alf Simpson PhD, Phone: [phone] Celiac Gene Interpretation See comment . [facility] Comment on above: References:1. Fidel CROOKS and Krystin Lock. Celiac Disease. N Eng J Med 2007; 357:0925-0147.2. Yeni F, Dottie B, Bonaconstance M et al. HLA-DQ and risk gradient for celiac disease. Hum Immunol 2009; 70:55-59.3. Bandar MM, Rigo TC, Raven FM et al. Stratifying risk for celiac disease in a large at-risk [facility] population by using HLA alleles. Clin Gastroenterol Hepatol 2009; 7:966-971.4. Kirt PALMER and Kieran BA. (2005). Celiac Disease Genetics: Current Concepts and Practical Applications. Clin Gastroenterol and Hepat 3:843-851.5. Yamile CL, Andrew DO, Fidel CROOKS, et al. Celiac Disease. In: Lori RA, Sang TC, Nigel CR, Je K, editors. [employer]), [facility], [place], March 22, 2008:1-27. http://www.ncbi.nlm.nih.gov/bookshelf/br.fcgi?book=genepart=c eliac PMID [id number] (PubMed)6. Luis Lim. Emerging concepts in celiac disease. Curr Opin Pediatr 2004;16:552-559.Performed at: - [facility] [id number] [place], [place] [id number] Director: Dajuan Dickinson PhD, Phone: [phone] Dehydroepiandrosterone Sulfate 368.0 ug/dL 110.0-431. 7 [facility] Estimated GFR () > 60 mL/Min [facility] Comment on above: GFR estimated refere nce range: According to KDOQI guidelines, <60 ml/min/1.73m2 is sufficient to diagnose a patient with chronic kidney disease. Hepatitis A IgM Antibody Negative Negative [facility] Hepatitis B Core IgM Antibody Negative Negative [facility] Hepatitis C Interpretation See comment . [facility] Comment on above: NegativeNot infected with HCV, unless recent infection issuspected or other evidence exists to indicate HCVinfection.Performed at: [facility] [id number] Director: Alf Simpson PhD, Phone: [phone] Hepatitis C RNA Quantitative N/A [facility] HLA Genotype Interpretation See comment . [facility] Comment on above: This test was perfor med using Polymerase ChainReaction/(PCR)Sequence Specific Oligonucleotide Probes(SSOP) ([employer]) technique. Sequence Based Typing (SBT)and/or Sequence Specific Primers (SSP) may be used assupplemental methods when necessary. Please contact HLACustomer Service at if you have anyquestions.Director of HLA LaboratoryDr Dajuan Dickinson, PhD Pharmacy Creatinine Clearance (Chem N/A [facility] Oat IgE Ab [Units/volume] in SerumOrdered By: Tiarra Childs on 10-29-2022 Oat IgE Qn (S) 0.32 kU/L Class I [facility] [place] IgE Ab [Units/volume] in SerumOrdered By: Tiarra Childs on 10-29-2022 [place] IgE Qn (S) <0.10 kU/L Class 0 [facility] Peanut IgE Ab [Units/volume] in SerumOrdered By: Tiarra Childs on 10-29-2022 Peanut IgE Qn (S) <0.10 kU/L Class 0 [facility] Pecan or Emmet Tree IgE Ab [Units/volume] in SerumOrdered By: Tiarra Childs on 10-29-2022 Pecan or Emmet Tree IgE Qn (S) <0.10 kU/L Class [address] [facility] Phosphate [Mass/volume] in S ulises or PlasmaOrdered By: Tiarra Childs on 10-29-2022 Phosphate [Mass/Vol] 4.2 mg/dL 2.5-4.6 [facility] Pork IgE Ab [Units/volume] i n SerumOrdered By: Tiarra Childs on 10-29-2022 Pork IgE Qn (S) <0.10 kU/L Class [address] [facility] Prolactin [Mass/volume] in S ulises or PlasmaOrdered By: Tiarra Childs on 10-29-2022 Prolactin [Mass/Vol] 6.27 ng/mL 3.34-26.72 [facility] Rice IgE Ab [Units/volume] i n SerumOrdered By: Tiarra Childs on 10-29-2022 Rice IgE Qn (S) <0.10 kU/L Class [address] [facility] [place] IgE Ab [Units/volume] in SerumOrdered By: Tiarra Childs on 10-29-2022 [place] IgE Qn (S) 0.31 kU/L Class 0/I [facility] Saltwort IgE Ab [Units/volum e] in SerumOrdered By: Tiarra Childs on 10-29-2022 Saltwort IgE Qn (S) <0.10 kU/L Class 0 [facility] Serum [place] sycamore IgE antibody assay (units/volume)Ordered By: Tiarra Childs on 10-29-2022 [place] IgE Qn (S) 0.11 kU/L Class 0/I [facility] Serum Penicillium chrysogenu m specific IgE antibody assayOrdered By: Tiarra Childs on 10-29-2022 P. notatum IgE Qn (S) <0.10 kU/L Class 0 [facility] Serum androstenedione measur ement by LC-MS/MS (mass/volume)Ordered By: Tiarra Childs on 10-29-2022 Androstenedione [Mass/Vol] 135 ng/dL 41-262 [facility] Comment on above: This test was develo ped and its performance characteristicsdetermined by [facility] [employer]. It has not been cleared orapproved by the Food and Drug Administration.Performed at: [address] [id number] Director: Jayne Mann MD, Phone: [phone] Serum cat dander IgG antibod y assay (units/volume)Ordered By: Tiarra Childs on 10-29-2022 Cat dander IgG Qn (S) <0.10 kU/L Class 0 [facility] Serum chicken droppings IgE antibody assay (units/volume)Ordered By: Tiarra Childs on 10-29-2022 Chicken droppings IgE Qn (S) <0.10 kU/L Class 0 [facility] Serum or plasma 17-hydroxypr ogesterone measurement (mass/volume)Ordered By: Tiarra Childs on 10-29-2022 17-Hydroxyprogesterone [Mass/Vol] 28 ng/dL . [facility] Comment on above: Adult Female Follicu lar 15 - 70 Luteal 35 - 290This test was developed and its performance characteristicsdetermined by [employer]. It has not been cleared orapproved by the Food and Drug Administration.Performed at: [address] [id number] Director: Jayne Mann MD, Phone: [phone] Serum or plasma anion gap de terminationOrdered By: Tiarra Childs on 10-29-2022 Anion gap [Moles/Vol] 9.2 mmol/L 6.0-15.0 [facility] Serum or plasma calcium michael urement (mass/volume)Ordered By: Tiarra Childs on 10-29-2022 Calcium [Mass/Vol] 9.4 mg/dL 8.2-10.2 [facility] Serum or plasma chloride mandeep surement (moles/volume)Ordered By: Tiarra Childs on 10-29-2022 Chloride [Moles/Vol] 105 mmol/L 95-114 [facility] Serum or plasma follitropin measurement (units/volume)Ordered By: Tiarra Childs on 10-29-2022 Follitropin Qn 5.1 m[IU]/mL [facility] Comment on above: FEMALE NORMALS (FLOWER ENOPAUSE) MID-FOLLICULAR PHASE: 3.9-8.8 mIU/mL MID-CYCLE PEAK: 4.5-22.5 mIU/mL MID-LUTEAL PHASE: 1.8-5.1 mIU/mLFEMALE NORMALS (POSTMENOPAUSE): 16.7-113.6 mIU/mLMALE NORMALS: 1.3-19.3 mIU/mL Serum or plasma glucose michael urement (mass/volume)Ordered By: Tiarra Childs on 10-29-2022 Glucose [Mass/Vol] 83 mg/dL 70-100 [facility] Comment on above: ADA recommended refe rence [...] IA [Rel units/Vol] <0.1 s/co ratio 0.0-0.9 [facility] Serum or plasma insulin michael urement (units/volume)Ordered By: Tiarra Childs on 10-29-2022 Insulin Qn 6.1 u[iU]/mL 2.6-24.9 [facility] Comment on above: Performed at: [employer] [facility] [place] [id number] Director: Alf Simpson PhD, Phone: [phone] Serum or plasma lutropin mandeep surement (units/volume)Ordered By: Tiarra Childs on 10-29-2022 Lutropin Qn 7.8 m[IU]/mL . [facility] Comment on above: Adult Female: Follic ular phase 2.4 - 12.6 Ovulation phase 14.0 - 95.6 Luteal phase 1.0 - 11.4 Postmenopausal 7.7 - 58.5Performed at: [employer] [address] [id number] Director: Alf Simpson PhD, Phone: [phone] Serum or plasma potassium me asurement (moles/volume)Ordered By: Tiarra Childs on 10-29-2022 Potassium [Moles/Vol] 3.8 mmol/L 3.5-5.1 [facility] Serum or plasma sodium measu rement (moles/volume)Ordered By: Tiarra Childs on 10-29-2022 Sodium [Moles/Vol] 137 mmol/L 136-146 [facility] Serum or plasma total carbon dioxide measurement (moles/volume)Ordered By: Tiarra Childs on 10-29-2022 CO2 [Moles/Vol] 26.6 mmol/L 22.0-30.0 [facility] Serum or plasma urea nitroge n measurement (mass/volume)Ordered By: Tiarra Childs on 10-29-2022 Urea nitrogen [Mass/Vol] 8 mg/dL 9-23 [facility] Serum rough pigweed IgE anti body assay (units/volume)Ordered By: Tiarra Childs on 10-29-2022 Rough Pigweed IgE Qn (S) <0.10 kU/L Class [address] [facility] Serum short ragweed specific IgE antibody assayOrdered By: Tiarra Childs on 10-29-2022 Common Ragweed IgE Qn (S) <0.10 kU/L Class [address] [facility] Serum white elm IgG antibody assay (units/volume)Ordered By: Tiarra Childs on 10-29-2022 White Elm IgG Qn (S) <0.10 kU/L Class 0 [facility] Serum white potato specific IgE antibody assayOrdered By: Tiarra Childs on 10-29-2022 Potato IgE Qn (S) <0.10 kU/L Class 0 [facility] [place]ep [place] IgE Ab [Units/v olume] in SerumOrdered By: Tiarra Childs on 10-29-2022 [place] IgE Qn (S) <0.10 kU/L Class 0 [facility] Silver Birch IgE Ab [Units/v olume] in SerumOrdered By: Tiarra Childs on 10-29-2022 [place] IgE Qn (S) 0.15 kU/L Class 0/I [facility] Soybean specific IgE antibod y assayOrdered By: Tiarra Childs on 10-29-2022 Soybean IgE Qn (S) <0.10 kU/L Class 0 [facility] [place] IgE Ab [Units/volume ] in SerumOrdered By: Tiarra Chlids on 10-29-2022 [place] IgE Qn (S) <0.10 kU/L Class 0 [facility] Tomato IgE Ab [Units/volume] in SerumOrdered By: Tiarra Childs on 10-29-2022 Tomato IgE Qn (S) <0.10 kU/L Class 0 [facility] [place] IgE Ab [Units/volume] in SerumOrdered By: Tiarra Childs on 10-29-2022 [place] IgE Qn (S) 0.14 kU/L Class 0/I [facility] Wheat IgE Ab [Units/volume] in SerumOrdered By: Tiarra Childs on 10-29-2022 Wheat IgE Qn (S) <0.10 kU/L Class 0 [facility] White Marquez IgE Ab [Units/volu me] in SerumOrdered By: Tiarra Childs on 10-29-2022 White [place] IgE Qn (S) <0.10 kU/L Class 0 [facility] [place] IgE Ab [Units/volu me] in SerumOrdered By: Tiarra Childs on 10-29-2022 [place] IgE Qn (S) 0.27 kU/L Class 0/I [facility] White mulberry IgE Ab [Units /volume] in SerumOrdered By: Tiarra Childs on 10-29-2022 White mulberry IgE Qn (S) <0.10 kU/L Class 0 [facility] Creatinine [Mass/volume] in UrineOrdered By: Tiarra Childs on 10-20-2022 Creatinine (U) [Mass/Vol] 96.6 mg/dL [facility] Comment on above: No reference range e stablished Urine microalbumin measureme nt with detection limit of 20 mg/L or less (mass/volume)Ordered By: Tiarra Childs on 10-20-2022 Albumin DL <= 20 mg/L (U) [Mass/Vol] 24.1 mg/dL 0.0-1.8 [facility] Urine microalbumin/creatinin e mass ratioOrdered By: Tiarra Childs on 10-20-2022 Albumin/Creatinine DL <= 20 mg/L (U) [Mass ratio] 249.0 mg/g 0.0-30.0 [facility] Comment on above: 30-300 mg/g indicate s an increased risk for diabetic nephropathy. Greater than 300 mg/g is consistent with clinical nephropathy. (Am. J. Kidney Disease 1995, 25:107) Albumin [Mass/volume] in Ser um or PlasmaOrdered By: Tiarra Childs on 10-09-2022 Albumin [Mass/Vol] 4.1 g/dL 3.2-5.5 [facility] Basophils Auto (Bld) [#/Vol] Ordered By: Tiarra Childs on 10-09-2022 Basophils (Bld) [#/Vol] 0.0 10*3/uL 0.0-0.2 [facility] Basophils/100 WBC Auto (Bld) Ordered By: Tiarra Childs on 10-09-2022 Basophils/100 WBC (Bld) 0.6 % . [facility] C reactive protein [Mass/vol ume] in Serum or PlasmaOrdered By: Tiarra Childs on 10-09-2022 CRP [Mass/Vol] < 0.5 mg/dL 0.0-1.[address] [facility] [address] biopsyOrdered By: Trish Childs on 10-09-2022 Transferrin [Mass/Vol] 262 mg/dL 180-380 [facility] Creatinine [Mass/volume] in UrineOrdered By: Tiarra Childs on 10-09-2022 Creatinine (U) [Mass/Vol] 123.2 mg/dL [facility] Comment on above: No reference range e stablished Creatinine and Glomerular fi ltration rate.predicted panel (S/P/Bld)Ordered By: Tiarra Childs on 10-09-2022 Creatinine [Mass/Vol] 0.67 mg/dL 0.44-1.03 [facility] Eosinophils Auto (Bld) [#/Vo l]Ordered By: Tiarra Childs on 10-09-2022 Eosinophils (Bld) [#/Vol] 0.1 10*3/uL 0.0-0.45 [facility] Eosinophils/100 WBC Auto (Bl d)Ordered By: Tiarra Childs on 10-09-2022 Eosinophils/100 WBC (Bld) 0.9 % . [facility] Erythrocyte distribution wid th Auto (RBC) [Ratio]Ordered By: Tiarra Childs on 10-09-2022 Erythrocyte distribution width (RBC) [Ratio] 13.1 % 11.9-15.3 [facility] Erythrocyte sedimentation ra te by Photometric methodOrdered By: Tiarra Childs on 10-09-2022 ESR Photometric method (Bld) [Velocity] 5 mm/hr 0-19 [facility] Estimated glomerular filtrat ion rate (GFR) non- AmericanOrdered By: Tiarra Childs on 10-09-2022 GFR/1.73 sq M.predicted among non-blacks MDRD (S/P/Bld) [Vol rate/Area] > 60 mL/Min [facility] Ferritin [Mass/volume] in Se rum or PlasmaOrdered By: Tiarra Childs on 10-09-2022 Ferritin [Mass/Vol] 12.7 ng/mL 11-306.8 [facility] Folate [Mass/volume] in Seru m or PlasmaOrdered By: Tiarra Childs on 10-09-2022 Folate [Mass/Vol] 8.1 ng/mL >5.9 [facility] Comment on above: Folate reference ran ge: >5.9 ng/mlThe WHO technical consultation on folate and vitamin [id number] has determined that folate concentrations lessthan 4 ng/ml are considered deficient. Globulin Calc (S) [Mass/Vol] Ordered By: Tiarra Childs on 10-09-2022 Globulin (S) [Mass/Vol] 2.3 g/dL [facility] Hematocrit Auto (Bld) [Volum e fraction]Ordered By: Tiarra Childs on 10-09-2022 Hematocrit (Bld) [Volume fraction] 41.6 % 34.0-46.4 [facility] Hemoglobin [Mass/volume] in BloodOrdered By: Tiarra Childs on 10-09-2022 Hemoglobin (Bld) [Mass/Vol] 13.8 g/dL 11.8-15.4 [facility] Iron [Mass/volume] in Serum or PlasmaOrdered By: Tiarra Childs on 10-09-2022 Iron [Mass/Vol] 69 ug/dL 40-150 [facility] Iron binding capacity [Mass/ volume] in Serum or PlasmaOrdered By: Tiarra Childs on 10-09-2022 Iron binding capacity [Mass/Vol] 367 ug/dL 255-450 [facility] Iron saturation [Mass Fracti on] in Serum or PlasmaOrdered By: Tiarra Childs on 10-09-2022 Iron saturation [Mass fraction] 18.8 % 20-50 [facility] Laboratory - Chemistry and C hemistry - challengeOrdered By: Tiarra Childs on 10-09-2022 Cobalamin (Vitamin B12) [Mass/Vol] 394 pg/mL 180-914 [facility] Lipase [Catalytic activity/Vol] 29.0 U/L 22-51 [facility] Leukocytes [#/volume] correc paulie for nucleated erythrocytes in Blood by Automated counOrdered By: Tiarra Childs on 10-09-2022 WBC corrected for nucl RBC Auto (Bld) [#/Vol] 6.3 10*3/uL 3.8-11.6 [facility] Lymphocytes Auto (Bld) [#/Vo l]Ordered By: Tiarra Childs on 10-09-2022 Lymphocytes (Bld) [#/Vol] 1.5 10*3/uL 1.00-4.8 [facility] Lymphocytes/100 WBC Auto (Bl d)Ordered By: Tiarra Childs on 10-09-2022 Lymphocytes/100 WBC (Bld) 24.1 % . [facility] MCH Auto (RBC) [Entitic mass ]Ordered By: Tiarra Childs on 10-09-2022 MCH (RBC) [Entitic mass] 29.8 pg 24.7-34.3 [facility] MCHC Auto (RBC) [Mass/Vol]Or dered By: Tiarra Childs on 10-09-2022 MCHC (RBC) [Mass/Vol] 33.3 g/dL 32.0-35.0 [facility] MCV Auto (RBC) [Entitic vol] Ordered By: Tiarra Childs on 10-09-2022 MCV (RBC) [Entitic vol] 89.7 fL 80-100 [facility] Monocytes Auto (Bld) [#/Vol] Ordered By: Tiarra Childs on 10-09-2022 Monocytes (Bld) [#/Vol] 0.3 10*3/uL 0.0-0.8 [facility] Monocytes/100 WBC Auto (Bld) Ordered By: Tiarra Childs on 10-09-2022 Monocytes/100 WBC (Bld) 5.2 % . [facility] Neutrophils Auto (Bld) [#/Vo l]Ordered By: Tiarra Childs on 10-09-2022 Neutrophils (Bld) [#/Vol] 4.3 10*3/uL 1.8-7.7 [facility] Neutrophils/100 WBC Auto (Bl d)Ordered By: Tiarra Childs on 10-09-2022 Neutrophils/100 WBC (Bld) 69.2 % . [facility] No Panel InformationOrdered By: Tiarra Childs on 10-09-2022 25-Hydroxy Vitamin D Total 31.2 ng/mL 30-100 [facility] Comment on above: VITAMIN D STATUS 25( OH)VITAMIN D RANGE (ng/mL) Deficient <20 Insufficient 20 to <30Sufficient 30 to 100Reference: Ambar PEREZ,Manish MARTINEZ, Donis MANDEL, et al. Evaluation,treatment, and prevention of vitamin D deficiency; an Endocrine Society clinical practice guideline. JCEM. 2010; 96(7):1911-30. Anti-Nuclear Antibody Comment [address] [facility] Comment on above: For more information about Hep-2 cell patterns useTekmiparateGeniuserns.org, the official website for the InternationalConsensus on Antinuclear Antibody (BRAVO) Patterns (ICAP). ------A positive BRAVO result may occur in healthy individuals (lowtiter) or be associated with a variety of diseases. Seeinterpretation chart which is not all inclusive:Pattern Antigen Detected Suggested Disease Association Homogeneous DNA(ds,ss), SLE - High titers Nucleosomes, Histones Drug-induced SLE Speckled Sm, TECTONOPHYSICIST, SCL-70, SLE,MCTD,PSS (diffuse form), SS-A/SS-B Sjogrens Nucleolar SCL-70, PM-1/SCL High titers Scleroderma, PM/DM Centromere Centromere PSS (limited form) w/Crest syndrome variable Nuclear Dot [id number] Primary Biliary Cirrhosis Nuclear GP210, Primary Biliary CirrhosisMembrane phil A,B,C Performed at: [facility] [id number] Director: Alf Simpson PhD, Phone: [phone] C-Peptide 3.7 ng/mL 1.1-4.4 [facility] Comment on above: C-Peptide reference interval is for fasting patients.Performed at: [facility] [place] [id number] Director: Alf Simpson PhD, Phone: [phone] Estimated GFR () > 60 mL/Min [facility] Comment on above: GFR estimated refere nce range: According to KDOQI guidelines, <60 ml/min/1.73m2 is sufficient to diagnose a patient with chronic kidney disease. Pharmacy Creatinine Clearance (Chem N/A [facility] Nucleated erythrocytes [Pres ence] in Blood by Automated countOrdered By: Tiarra Childs on 10-09-2022 Nucleated RBC Auto Ql (Bld) 0.1 /100{WBC} 0-0.5 [facility] Platelet mean volume Auto (B ld) [Entitic vol]Ordered By: Tiarra Childs on 10-09-2022 Platelet mean volume (Bld) [Entitic vol] 8.4 fL 6.3-10.7 [facility] Platelets Auto (Bld) [#/Vol] Ordered By: Tiarra Childs on 10-09-2022 Platelets (Bld) [#/Vol] 303 10*3/uL 150-450 [facility] Protein [Mass/volume] in Ser um or PlasmaOrdered By: Tiarra Childs on 10-09-2022 Protein [Mass/Vol] 6.4 g/dL 6.1-7.9 [facility] RBC Auto (Bld) [#/Vol]Ordere d By: Tiarra Childs on 10-09-2022 RBC (Bld) [#/Vol] 4.64 10*6/uL 3.60-5.00 [facility] Serum nuclear antibody titer Ordered By: Tiarra Childs on 10-09-2022 Nuclear Ab (S) [Titer] Positive . [facility] Comment on above: Negative <1:80 Borde rline 1:80 Positive >1:80 Serum or plasma alanine perry otransferase measurement without P-5'-P (enzymatic activiOrdered By: Tiarra Childs on 10-09-2022 ALT No additional P-5'-P [Catalytic activity/Vol] 12 U/L 10-60 [facility] Serum or plasma albumin/glob ulin mass ratioOrdered By: Tiarra Childs on 10-09-2022 Albumin/Globulin [Mass ratio] 1.8 {ratio} [facility] Serum or plasma alkaline blair sphatase measurement (enzymatic activity/volume)Ordered By: Tiarra Childs on 10-09-2022 ALP [Catalytic activity/Vol] 54 U/L 32-92 [facility] Serum or plasma amylase michael urement (enzymatic activity/volume)Ordered By: Tiarra Childs on 10-09-2022 Amylase [Catalytic activity/Vol] 63 U/L 28-100 [facility] Serum or plasma anion gap de terminationOrdered By: Tiarra Childs on 10-09-2022 Anion gap [Moles/Vol] 12.1 mmol/L 6.0-15.0 [facility] Serum or plasma aspartate am inotransferase measurement (enzymatic activity/volume)Ordered By: Tiarra Childs on 10-09-2022 AST [Catalytic activity/Vol] 20 U/L 10-42 [facility] Serum or plasma calcium michael urement (mass/volume)Ordered By: Tiarra Childs on 10-09-2022 Calcium [Mass/Vol] 9.6 mg/dL 8.2-10.2 [facility] Serum or plasma chloride mandeep surement (moles/volume)Ordered By: Tiarra Childs on 10-09-2022 Chloride [Moles/Vol] 102 mmol/L 95-114 [facility] Serum or plasma glucose michael urement (mass/volume)Ordered By: Tiarra Childs on 10-09-2022 Glucose [Mass/Vol] 66 mg/dL 70-100 [facility] Comment on above: ADA recommended refe rence rangeRandom Glucose Reference Range is dependent on time and content of last meal. Glucose of more than 200 mg/dL in a nonstressed, ambulatory subject supports the diagnosis of Diabetes Mellitus. Serum or plasma potassium me asurement (moles/volume)Ordered By: Tiarra Childs on 10-09-2022 Potassium [Moles/Vol] 3.9 mmol/L 3.5-5.1 [facility] Serum or plasma sodium measu rement (moles/volume)Ordered By: Tiarra Childs on 10-09-2022 Sodium [Moles/Vol] 138 mmol/L 136-146 [facility] Serum or plasma total biliru bin measurement (mass/volume)Ordered By: Tiarra Childs on 10-09-2022 Bilirubin [Mass/Vol] 1.1 mg/dL 0.3-1.2 [facility] Serum or plasma total carbon dioxide measurement (moles/volume)Ordered By: Tiarra Childs on 10-09-2022 CO2 [Moles/Vol] 27.8 mmol/L 22.0-30.0 [facility] Serum or plasma urea nitroge n measurement (mass/volume)Ordered By: Tiarra Childs on 10-09-2022 Urea nitrogen [Mass/Vol] 9 mg/dL 9- [facility] Serum speckled pattern antin uclear antibody (BRAVO) titerOrdered By: Tiarra Childs on 10-09-2022 Speckled nuclear Ab pattern (S) [Titer] 1:[address] [facility] Comment on above: ICAP nomenclature: A C-2,4,5,29 TSH DL <= 0.005 mIU/L QnOrde red By: Tiarra Childs on 10-09-2022 TSH Qn 0.90 m[IU]/L 0.45-5.33 [facility] Thyroxine (T4) free [Mass/vo lume] in Serum or PlasmaOrdered By: Tiarra Childs on 10-09-2022 Free T4 [Mass/Vol] 0.76 ng/dL 0.61-1.12 [facility] Triiodothyronine (T3) Free [ Mass/volume] in Serum or PlasmaOrdered By: Tiarra Childs on 10-09-2022 Free T3 [Mass/Vol] 3.99 pg/mL 2.50-3.90 [facility] Urine microalbumin measureme nt with detection limit of 20 mg/L or less (mass/volume)Ordered By: Tiarra Childs on 10-09-2022 Albumin DL <= 20 mg/L (U) [Mass/Vol] 4.5 mg/dL 0.0-1.8 [facility] Urine microalbumin/creatinin e mass ratioOrdered By: Tiarra Childs on 10-09-2022 Albumin/Creatinine DL <= 20 mg/L (U) [Mass ratio] 36.0 mg/g 0.0-30.0 [facility] Comment on above: 30-300 mg/g indicate s an increased risk for diabetic nephropathy. Greater than 300 mg/g is consistent with clinical nephropathy. (Am. J. Kidney Disease 1995, 25:107) WBC Auto (Bld) [#/Vol]Ordere d By: Tiarra Childs on 10-09-2022 WBC (Bld) [#/Vol] 6.3 10*3/uL 3.8-11.6 [facility] CBC AUTO DIFFon 09-28-2022 BASO # 0.0 103/ul Normal 0.0-0.1 [facility] Comment on above: Performed By: #### C BC #### [facility] [address] [address] [address] Angelica Smith Basophils/100 WBC (Bld) 0.5 % Normal 0.2-2.0 [facility] Comment on above: Performed By: #### C BC #### [facility] [address] [address] [address] Angelica Smith EO # 0.1 103/ul Normal 0.0-0.7 [facility] Comment on above: Performed By: #### C BC #### [facility] [address] [address] [address] Angelica Smith Eosinophils/100 WBC (Bld) 1.6 % Normal 0.9-7.0 [facility] Comment on above: Performed By: #### C BC #### [facility] [address] [place] [address] Dr. Angelica Smith Erythrocyte distribution width (RBC) [Ratio] 12.4 % Normal 11.0-15.0 [facility] Comment on above: Performed By: #### C BC #### [facility] [address] [place] [address] Dr. Angelica Smith Hematocrit (Bld) [Volume fraction] 36.4 % Normal 36.0-48.0 [facility] Comment on above: Performed By: #### C BC #### [facility] [address] [place] [address] Dr. Angelica Smith Hemoglobin (Bld) [Mass/Vol] 13.3 g/dL Normal 12.0-16.0 [facility] Comment on above: Performed By: #### C BC #### [facility] [address] [place] [address] Dr. Angelica Smith IG # 0.01 10e3/ul Normal 0.00-0.03 [facility] Comment on above: Performed By: #### C BC #### [facility] [address] [place] [address] Dr. Angelica Smith IG % 0.2 % Normal 0.0-0.5 [facility] Comment on above: Performed By: #### C BC #### [facility] [address] [place] [address] Dr. Angelica Smith LYMPH # 2.0 103/ul Normal 1.2-3.[address] [facility] Comment on above: Performed By: #### C BC #### [facility] [address] [place] [address] Dr. Angelica Smith Lymphocytes/100 WBC (Bld) 32.6 % Normal 20.5-60.0 [facility] Comment on above: Performed By: #### C BC #### [facility] [address] [place] [address] Dr. Angelica Smith MANUAL DIFF REQ NO Normal [facility] Comment on above: Performed By: #### C BC #### [facility] [address] [place] [address] Dr. Angelica Smith MCH (RBC) [Entitic mass] 30.3 pg Normal 26.7-34.0 [facility] Comment on above: Performed By: #### C BC #### [facility] [address] [place] [address] Dr. Angelica Smith MCHC (RBC) [Mass/Vol] 36.5 g/dL Critically high 29.9-35.2 [facility] Comment on above: Performed By: #### C BC #### [facility] [address] [place] [address] Dr. Angelica Smith MCV (RBC) [Entitic vol] 82.9 fL Normal 81.0-99.0 [facility] Comment on above: Performed By: #### C BC #### [facility] [address] [place] [address] Dr. Angelica Smith MONO # 0.4 103/ul Normal 0.3-0.8 [facility] Comment on above: Performed By: #### C BC #### [facility] [address] [place] [address] Dr. Angelica Smith Monocytes/100 WBC (Bld) 6.0 % Normal 1.7-12.0 [facility] Comment on above: Performed By: #### C BC #### [facility] [address] [place] [address] Dr. Angelica Smith NEUT # 3.7 103/ul Normal 1.4-6.5 [facility] Comment on above: Performed By: #### C BC #### [facility] [address] [place] [address] Dr. Angelica Smith Neutrophils/100 WBC (Bld) 59.1 % Normal 43.0-75.0 [facility] Comment on above: Performed By: #### C BC #### [facility] [address] [place] [address] Dr. Angelica Smith Platelet mean volume (Bld) [Entitic vol] 9.5 fL Normal 9.5-13.5 [facility] Comment on above: Performed By: #### C BC #### [facility] [address] [place] [address] Dr. Angelica Smith PLT 313 103/ul Normal 150-[address] [facility] Comment on above: Performed By: #### C BC #### [facility] [address] [place] [address] Dr. Angelica Smith RBC 4.39 106/ul Normal 4.20-5.40 [facility] Comment on above: Performed By: #### C BC #### [facility] [address] [place] [address] Dr. Angelica Smith WBC 6.2 103/ul Normal 4.0-11.0 [facility] Comment on above: Performed By: #### C BC #### [facility] [address] [place] [address] Dr. Angelica Smith ER URINE PROFILEon 3 Bilirubin Ql (U) Negative Normal NEGATIVE [facility] Comment on above: Performed By: #### TOREY OJEDARO #### [facility] [address] [place] [address] Dr. Angelica Smith Clarity (U) CLEAR Normal CLEAR [facility] Comment on above: Performed By: #### TOREY OJEDARO #### [facility] [address] [place] [address] Dr. Angelica Smith Color (U) LT. YELLOW Normal YELLOW [facility] Comment on above: Performed By: #### TOREY OJEDARO #### [facility] [address] [place] [address] Dr. Angelica Smith ERUAHD A micrscopic examina tion will be performed if indicated. Normal [facility] Comment on above: Performed By: #### lGadis BUSBY UMSERGORO #### [facility] [address] [place] [address] Dr. Angelica Smith Glucose Ql (U) Negative Normal NEGATIVE [facility] Comment on above: Performed By: #### Gladis BUSBY UMICRO #### [facility] [address] [place] [address] Dr. Angelica Smith Hemoglobin Ql (U) MODERATE Abnormal NEGATIVE [facility] Comment on above: Performed By: #### Gladis BUSBY UMICRO #### [facility] [address] [place] [address] Dr. Angelica Smith Ketones Ql (U) Negative Normal NEGATIVE [facility] Comment on above: Performed By: #### Gladis BUSBY UMICRO #### [facility] [address] [place] [address] Dr. Angelica Smith LEUKOCYTES Negative Normal NEGATIVE [facility] Comment on above: Performed By: #### Gladis BUSBY UMICRO #### [facility] [address] [place] [address] Dr. Angelica Smith Nitrite Ql (U) Negative Normal NEGATIVE [facility] Comment on above: Performed By: #### Gladis BUSBY UMICRO #### [facility] [address] [place] [address] Dr. Angelica Smith pH (U) 7.0 [pH] Normal 5-9 [facility] Comment on above: Performed By: #### Gladis BUSBY UMICRO #### [facility] [address] [place] [address] Dr. Angelica Smith SPEC GRAVITY 1.010 Normal 1.005-<=1. 025 [facility] Comment on above: Performed By: #### Gladis BUSBY UMICRO #### [facility] [address] [place] [address] Dr. Aneglica Smith UA PROTEIN Negative Normal NEGATIVE/ TRACE [facility] Comment on above: Performed By: #### Gladis BUSBY UMICRO #### [facility] [address] [place] [address] Dr. Angelica Smith UR MICRO IND INDICATED Normal [facility] Comment on above: Performed By: #### HOSEA OJEDAICRO #### [facility] [address] [place] [address] Dr. Angelica Smith Urobilinogen Qn (U) 0.2 {Sujey'U}/dL Normal 0.2 - 1. 0 [facility] Comment on above: Performed By: #### Gladis BUSBY UMICRO #### [facility] [address] [address] [address] Angelica Smith PREG QUANT HCGon 09-28-2022 HCG QUANT 1 mIU/mL Normal [facility] Comment on above: Performed By: #### B MP, PREGQNT ####[facility] [id number] [id number]. Angelica Smith HCG RANGE SEE BELOW Normal [facility] Comment on above: Result Comment: 5-50 0.2-1 WEEK 50-500 1-2 WEEKS 100-5,000 2-3 WEEKS 500-10,000 3-4 WEEKS 1,000-50,000 4-5 WEEKS 10,000-100,000 5-6 WEEKS 15,000-200,000 6-8 WEEKS 10,000-100,000 2-3 MONTHS Performed By: #### B MEGHAN, PREGQNT ####[facility] [id number] [address]Dr. Angelica Smith PROF CHEM 8 (BAS METB)on Anion gap [Moles/Vol] 11.5 mmol/L Normal [facility] Comment on above: Performed By: #### B MEGHAN, PREGQNT #### [facility] [address] [place] [address] Dr. Angelica Smith Calcium [Mass/Vol] 9.0 mg/dL Normal 8.5-10.1 [facility] Comment on above: Performed By: #### B MP, PREGQNT #### [facility] [address] [place] [address] Dr. Angelica Smith Chloride [Moles/Vol] 104 mmol/L Normal 98-107 [facility] Comment on above: Performed By: #### B MP, PREGQNT #### [facility] [address] [place] [address] Dr. Angelica Smith CO2 [Moles/Vol] 27.0 mmol/L Normal 21.0-32.0 [facility] Comment on above: Performed By: #### B MP, PREGQNT #### [facility] [address] [place] [address] Dr. Angelica Smith Creatinine [Mass/Vol] 0.71 mg/dL Normal 0.55-1.02 [facility] Comment on above: Performed By: #### B MP, PREGQNT #### [facility] [address] [place] [address] Dr. Angelica Smith EGFR-AF KOSOVAN >60 Normal >=60 [facility] Comment on above: Performed By: #### B MP, PREGQNT #### [facility] [address] [place] [address] Dr. Angelica Smith EGFR-NON AF KOSOVAN >60 Normal >=60 [facility] Comment on above: Performed By: #### B MP, PREGQNT #### [facility] [address] [place] [address] Dr. Angelica Smith Glucose [Mass/Vol] 92 mg/dL Normal 74-106 [facility] Comment on above: Performed By: #### B MEGHAN, PREGQNT #### [facility] [address] [place] [address] Dr. Angelica Smith Potassium [Moles/Vol] 3.5 mmol/L Normal 3.5-5.1 [facility] Comment on above: Performed By: #### B MEGHAN, PREGQNT #### [facility] [address] [place] [address] Dr. Angelica Smith Sodium [Moles/Vol] 139 mmol/L Normal 136-[address] [facility] Comment on above: Performed By: #### B MP, PREGQNT #### [facility] [address] [place] [address] Dr. Angelica Smith Urea nitrogen [Mass/Vol] 8.0 mg/dL Normal 7.0-18.[address] [facility] Comment on above: Performed By: #### B MP, PREGQNT #### [facility] [address] [place] [address] Dr. Angelica Smith Urea nitrogen/Creatinine [Mass ratio] 11.3 mg/mg Normal [facility] Comment on above: Performed By: #### B MP, PREGQNT #### [facility] [address] [place] [address] Dr. Angelica Smith URINE MICROSCOPIC ONLYon BACTERIA NONE SEEN Normal NONE SEEN [facility] Comment on above: Performed By: #### E KEHINDE UMICRO #### [facility] [address] [place] [address] Dr. Angelica Smith Bacteria identified Cx Nom (U) NOT INDICATED Normal [facility] Comment on above: Performed By: #### E RUElan, UMICRO #### [facility] [address] [place] [address] Dr. Angelica Smith CAST NONE SEEN Normal NONE SEEN [facility] Comment on above: Performed By: #### E RUElan UMICRO #### [facility] [address] [place] [address] Dr. Angelica Smith Crystals LM Nom (Urine sed) NONE SEEN Normal NONE SEEN [facility] Comment on above: Performed By: #### E RUElan UMICRO #### [facility] [address] [place] [address] Dr. Angelica Smith Epithelial cells LM Ql (Urine sed) FEW Abnormal NONE SEEN /RARE [facility] Comment on above: Performed By: #### Gladis BUSBY UMICRO #### [facility] [address] [place] [address] Dr. Angelica Smith MUCOUS NONE SEEN Normal NONE SEEN [facility] Comment on above: Performed By: #### Gladis BUSBY UMICRO #### [facility] [address] [place] [address] Dr. Angelica Smith RBC 0-2 Normal 0-[address] [facility] Comment on above: Performed By: #### E KEHINDE UMICRO #### [facility] [address] [place] [address] Dr. Angelica Smith WBC NONE SEEN Normal NONE SEEN [facility] Comment on above: Performed By: #### E KEHINDE UMICRO #### [facility] [address] [place] [address] Dr. Angelica Smith PREG QUANT HCGon 09-24-2022 HCG QUANT 7 mIU/mL Normal [facility] Comment on above: Performed By: #### P REGQNT #### [facility] [address] [place] [address] Dr. Angelica Smith HCG RANGE SEE BELOW Normal [facility] Comment on above: Result Comment: 5-50 0.2-1 WEEK 50-500 1-2 WEEKS 100-5,000 2-3 WEEKS 500-10,000 3-4 WEEKS 1,000-50,000 4-5 WEEKS 10,000-100,000 5-6 WEEKS 15,000-200,000 6-8 WEEKS 10,000-100,000 2-3 MONTHS Performed By: #### P REGQNT #### [facility] [address] [place] [address] Dr. Angelica Smith PREG QUANT HCGon 09-22-2022 HCG QUANT 14 mIU/mL Normal [facility] Comment on above: Performed By: #### P REGQNT #### [facility] [address] [place] [address] Dr. Angelica Smith HCG RANGE SEE BELOW Normal [facility] Comment on above: Result Comment: 5-50 0.2-1 WEEK 50-500 1-2 WEEKS 100-5,000 2-3 WEEKS 500-10,000 3-4 WEEKS 1,000-50,000 4-5 WEEKS 10,000-100,000 5-6 WEEKS 15,000-200,000 6-8 WEEKS 10,000-100,000 2-3 MONTHS Performed By: #### P REGQNT #### [facility] [address] [place] [address] Dr. Angelica Smith Albumin [Mass/volume] in Ser um or PlasmaOrdered By: Donavon Yanes on 08-11-2022 Albumin [Mass/Vol] 4.0 g/dL 3.2-5.5 [facility] Bilirubin Test strip Ql (U)O rdered By: Donavon Yanes on 08-11-2022 Bilirubin Ql (U) Negative Negative [facility] Color Auto (U)Ordered By: Kunal Yanes on 08-11-2022 Color (U) Yellow Yellow [facility] Creatinine and Glomerular fi ltration rate.predicted panel (S/P/Bld)Ordered By: Donavon Yanes on 08-11-2022 Creatinine [Mass/Vol] 0.71 mg/dL 0.44-1.03 [facility] Direct bilirubin measurement Ordered By: Donavon Yanes on 08-11-2022 Bilirubin.direct [Mass/Vol] 0.2 mg/dL 0.0-0.4 [facility] Estimated glomerular filtrat ion rate (GFR) non- AmericanOrdered By: Donavon Yanes on 08-11-2022 GFR/1.73 sq M.predicted among non-blacks MDRD (S/P/Bld) [Vol rate/Area] > 60 mL/Min [facility] Globulin Calc (S) [Mass/Vol] Ordered By: Donavon Yanes on 08-11-2022 Globulin (S) [Mass/Vol] 2.9 g/dL F [facility] Ketones Auto test strip (U) [Mass/Vol]Ordered By: Donavon Yanes on 08-11-2022 Ketones (U) [Mass/Vol] Negative Negative [facility] Nitrite Test strip Ql (U)Ord ered By: Donavon Yanes on 08-11-2022 Nitrite Ql (U) Negative Negative [facility] No Panel InformationOrdered By: Donavon Yanes on 08-11-2022 Estimated GFR () > 60 mL/Min [facility] Comment on above: GFR estimated refere nce range: According to KDOQI guidelines, <60 ml/min/1.73m2 is sufficient to diagnose a patient with chronic kidney disease. Pharmacy Creatinine Clearance (Chem N/A [facility] Protein Auto test strip (U) [Mass/Vol]Ordered By: Donavon Yanes on 08-11-2022 Protein (U) [Mass/Vol] Negative Negative [facility] Protein [Mass/volume] in Ser um or PlasmaOrdered By: Donavon Yanes on 08-11-2022 Protein [Mass/Vol] 6.9 g/dL 6.1-7.9 [facility] Serum or plasma alanine perry otransferase measurement without P-5'-P (enzymatic activiOrdered By: Donavon Yanes on 08-11-2022 ALT No additional P-5'-P [Catalytic activity/Vol] 12 U/L 10-60 [facility] Serum or plasma albumin/glob ulin mass ratioOrdered By: Donavon Yanes on 08-11-2022 Albumin/Globulin [Mass ratio] 1.4 {ratio} [facility] Serum or plasma alkaline blair sphatase measurement (enzymatic activity/volume)Ordered By: Donavon Yanes on 08-11-2022 ALP [Catalytic activity/Vol] 47 U/L 32-92 [facility] Serum or plasma anion gap de terminationOrdered By: Donavon Yanes on 08-11-2022 Anion gap [Moles/Vol] 8.3 mmol/L 6.0-15.0 [facility] Serum or plasma aspartate am inotransferase measurement (enzymatic activity/volume)Ordered By: Donavon Yanes on 08-11-2022 AST [Catalytic activity/Vol] 19 U/L 10-42 [facility] Serum or plasma calcium michael urement (mass/volume)Ordered By: Donavon Yanes on 08-11-2022 Calcium [Mass/Vol] 9.4 mg/dL 8.2-10.2 [facility] Serum or plasma chloride mandeep surement (moles/volume)Ordered By: Donavon Yanes on 08-11-2022 Chloride [Moles/Vol] 104 mmol/L 95-114 [facility] Serum or plasma glucose michael urement (mass/volume)Ordered By: Donavon Yanes on 08-11-2022 Glucose [Mass/Vol] 81 mg/dL 70-100 [facility] Comment on above: ADA recommended refe rence rangeRandom Glucose Reference Range is dependent on time and content of last meal. Glucose of more than 200 mg/dL in a nonstressed, ambulatory subject supports the diagnosis of Diabetes Mellitus. Serum or plasma non-glucuron idated bilirubin measurement (mass/volume)Ordered By: Donavon Yanes on 08-11-2022 Bilirubin.indirect [Mass/Vol] 2.0 mg/dL [facility] Serum or plasma potassium me asurement (moles/volume)Ordered By: Donavon Yanes on 08-11-2022 Potassium [Moles/Vol] 3.9 mmol/L 3.5-5.1 [facility] Serum or plasma sodium measu rement (moles/volume)Ordered By: Donavon Yanes on 08-11-2022 Sodium [Moles/Vol] 135 mmol/L 136-146 [facility] Serum or plasma total biliru bin measurement (mass/volume)Ordered By: Donavon Yanes on 08-11-2022 Bilirubin [Mass/Vol] 2.2 mg/dL 0.3-1.2 [facility] Comment on above: Samples from patient s who have taken Naproxen have shown spurious elevation in Total Bilirubin levels. A metabolite of Naproxen, O-desmethylnaproxen, has been shown to interfere with the Oren-Jarek method for measuring Total Bilirubin. Serum or plasma total carbon dioxide measurement (moles/volume)Ordered By: Donavon Yanes on 08-11-2022 CO2 [Moles/Vol] 26.6 mmol/L 22.0-30.0 [facility] Serum or plasma urea nitroge n measurement (mass/volume)Ordered By: Donavon Yanes on 08-11-2022 Urea nitrogen [Mass/Vol] 10 mg/dL - [facility] Specific gravity Auto test s trip (U) [Rel density]Ordered By: Donavon Yanes on 08-11-2022 Specific gravity (U) [Rel density] 1.007 1.001-1.[address] [facility] Urine clarity by refractomet ry automatedOrdered By: Donavon Yanes on 08-11-2022 Clarity Refractometry automated (U) Clear Clear [facility] Urine glucose measurement by automated test strip (mass/volume)Ordered By: Donavon Yanes on 08-11-2022 Glucose Auto test strip (U) [Mass/Vol] Normal mg/dL Normal [facility] Urine hemoglobin detection b y automated test stripOrdered By: Donavon Yanes on 08-11-2022 Hemoglobin Auto test strip Ql (U) Negative Negative [facility] Urine leukocyte esterase det ection by automated test stripOrdered By: Donavon Yanes on 08-11-2022 Leukocyte esterase Auto test strip Ql (U) Negative Negative [facility] Urobilinogen Auto test strip (U) [Mass/Vol]Ordered By: Donavon Yanes on 08-11-2022 Urobilinogen (U) [Mass/Vol] Normal mg/dL Normal [facility] pH Auto test strip (U)Ordere d By: Donavon Yanes on 08-11-2022 pH (U) 6.0 [pH] 5.0-9.0 [facility] Albumin [Mass/volume] in Ser um or PlasmaOrdered By: Donavon Yanes on 06-18-2022 Albumin [Mass/Vol] 4.2 g/dL 3.2-5.5 [facility] Basophils Auto (Bld) [#/Vol] Ordered By: Donavon Yanes on 06-18-2022 Basophils (Bld) [#/Vol] 0.0 10*3/uL 0.0-0.2 [facility] Basophils/100 WBC Auto (Bld) Ordered By: Donavon Yanes on 06-18-2022 Basophils/100 WBC (Bld) 0.5 % . [facility] Blood hemoglobin measurement (mass/volume)Ordered By: Donavon Yanes on 06-18-2022 Hemoglobin (Bld) [Mass/Vol] 13.3 g/dL 11.8-15.4 [facility] Blood leukocytes automated c ount (number/volume)Ordered By: Donavon Yanes on 06-18-2022 WBC (Bld) [#/Vol] 6.9 10*3/uL 4.5-11.0 [facility] Cholesterol [Mass/volume] in Serum or PlasmaOrdered By: Donavon Yanes on 06-18-2022 Cholesterol [Mass/Vol] 143 mg/dL 140-200 [facility] Comment on above: Chol less than 200 m g/dl low riskChol 201-239 mg/dl borderline riskChol 240 mg/dl and greater high risk Cholesterol in LDL Calc [Mas s/Vol]Ordered By: Donavon Yanes on 06-18-2022 Cholesterol in LDL [Mass/Vol] 83 mg/dL 0-100 [facility] Comment on above: LDL ATP III CLASSIFI CATIONLDL less than 100 mg/dL OptimalLDL 100-129 mg/dL Near or above optimalLDL 130-159 mg/dL Borderline highLDL 160-189 mg/dL HighLDL greater than 189 mg/dL Very high Cholesterol in VLDL Calc [Ma ss/Vol]Ordered By: Donavon Yanes on 06-18-2022 Cholesterol in VLDL [Mass/Vol] 14 mg/dL [facility] Creatinine [Mass/volume] in UrineOrdered By: Donavon Yanes on 06-18-2022 Creatinine (U) [Mass/Vol] 113.4 mg/dL [facility] Comment on above: No reference range e stablished Creatinine and Glomerular fi ltration rate.predicted panel (S/P/Bld)Ordered By: Donavon Yanes on 06-18-2022 Creatinine [Mass/Vol] 0.70 mg/dL 0.44-1.03 [facility] Eosinophils Auto (Bld) [#/Vo l]Ordered By: Donavon Yanes on 06-18-2022 Eosinophils (Bld) [#/Vol] 0.1 10*3/uL 0.0-0.45 [facility] Eosinophils/100 WBC Auto (Bl d)Ordered By: Donavon Yanes on 06-18-2022 Eosinophils/100 WBC (Bld) 0.9 % . [facility] Erythrocyte distribution wid th Auto (RBC) [Ratio]Ordered By: Donavon Yanes on 06-18-2022 Erythrocyte distribution width (RBC) [Ratio] 12.4 % 11.9-15.3 [facility] Estimated glomerular filtrat ion rate (GFR) non- AmericanOrdered By: Donavon Yanes on 06-18-2022 GFR/1.73 sq M.predicted among non-blacks MDRD (S/P/Bld) [Vol rate/Area] > 60 mL/Min [facility] Globulin Calc (S) [Mass/Vol] Ordered By: Donavon Yanes on 06-18-2022 Globulin (S) [Mass/Vol] 2.5 g/dL [facility] Glucose mean value [Mass/vol ume] in Blood Estimated from glycated hemoglobinOrdered By: Donaovn Yanes on 06-18-2022 Average glucose Estimated from glycated hemoglobin (Bld) [Mass/Vol] 100 mg/dL [facility] Hematocrit Auto (Bld) [Volum e fraction]Ordered By: Donavon Yanes on 06-18-2022 Hematocrit (Bld) [Volume fraction] 39.3 % 34.0-46.4 [facility] Hemoglobin A1c percentageOrd ered By: Donavon Yanes on 06-18-2022 HbA1c (Bld) [Mass fraction] 5.1 % 4.3-5.6 [facility] Comment on above: Increased risk for d iabetes: 5.7 - 6.4diabetes: >6.4glycemic control for adults with diabetes: <7.0 Laboratory - Hematology and Cell countsOrdered By: Donavon Yanes on 06-18-2022 Nucleated RBC/100 WBC (Bld) [Ratio] 0.1 % 0-0.5 [facility] Lymphocytes Auto (Bld) [#/Vo l]Ordered By: Donavon Yanes on 06-18-2022 Lymphocytes (Bld) [#/Vol] 1.9 10*3/uL 1.00-4.8 [facility] Lymphocytes/100 WBC Auto (Bl d)Ordered By: Donavon Yanes on 06-18-2022 Lymphocytes/100 WBC (Bld) 27.9 % . [facility] MCH Auto (RBC) [Entitic mass ]Ordered By: Donavon Yanes on 06-18-2022 MCH (RBC) [Entitic mass] 30.5 pg 24.7-34.3 [facility] MCHC Auto (RBC) [Mass/Vol]Or dered By: Donavon Yanes on 06-18-2022 MCHC (RBC) [Mass/Vol] 33.7 g/dL 32.0-35.0 [facility] MCV Auto (RBC) [Entitic vol] Ordered By: Donavon Yanes on 06-18-2022 MCV (RBC) [Entitic vol] 90.2 fL 80-100 [facility] Monocytes Auto (Bld) [#/Vol] Ordered By: Donavon Yanes on 06-18-2022 Monocytes (Bld) [#/Vol] 0.3 10*3/uL 0.0-0.8 [facility] Monocytes/100 WBC Auto (Bld) Ordered By: Donavon Yanes on 06-18-2022 Monocytes/100 WBC (Bld) 4.9 % . [facility] Neutrophils Auto (Bld) [#/Vo l]Ordered By: Donavon Yanes on 06-18-2022 Neutrophils (Bld) [#/Vol] 4.6 10*3/uL 1.8-7.7 [facility] Neutrophils/100 WBC Auto (Bl d)Ordered By: Donavon Yanes on 06-18-2022 Neutrophils/100 WBC (Bld) 65.8 % . [facility] No Panel InformationOrdered By: Donavon Yanes on 06-18-2022 Estimated GFR () > 60 mL/Min [facility] Comment on above: GFR estimated refere nce range: According to KDOQI guidelines, <60 ml/min/1.73m2 is sufficient to diagnose a patient with chronic kidney disease. Pharmacy Creatinine Clearance (Chem N/A [facility] Platelet mean volume Auto (B ld) [Entitic vol]Ordered By: Donavon Yanes on 06-18-2022 Platelet mean volume (Bld) [Entitic vol] 8.8 fL 6.3-10.7 [facility] Platelets Auto (Bld) [#/Vol] Ordered By: Donavon Yanes on 06-18-2022 Platelets (Bld) [#/Vol] 307 10*3/uL 150-450 [facility] Protein [Mass/volume] in Ser um or PlasmaOrdered By: Donavon Yanes on 06-18-2022 Protein [Mass/Vol] 6.7 g/dL 6.1-7.9 [facility] RBC Auto (Bld) [#/Vol]Ordere d By: Donavon Yanes on 06-18-2022 RBC (Bld) [#/Vol] 4.36 10*6/uL 3.60-5.00 [facility] Serum or plasma alanine perry otransferase measurement without P-5'-P (enzymatic activiOrdered By: Donavon Yanes on 06-18-2022 ALT No additional P-5'-P [Catalytic activity/Vol] 14 U/L 10-60 [facility] Serum or plasma albumin/glob ulin mass ratioOrdered By: Donavon Yanes on 06-18-2022 Albumin/Globulin [Mass ratio] 1.7 {ratio} [facility] Serum or plasma alkaline blair sphatase measurement (enzymatic activity/volume)Ordered By: Donavon Yanes on 06-18-2022 ALP [Catalytic activity/Vol] 49 U/L 32-[address] [facility] [facility] Serum or plasma anion gap de terminationOrdered By: Donavon Yanes on 06-18-2022 Anion gap [Moles/Vol] 10.0 mmol/L 6.0-15.0 [facility] Serum or plasma aspartate am inotransferase measurement (enzymatic activity/volume)Ordered By: Donavon Yanes on 06-18-2022 AST [Catalytic activity/Vol] 19 U/L 10-42 [facility] Serum or plasma calcium michael urement (mass/volume)Ordered By: Donavon Yanes on 06-18-2022 Calcium [Mass/Vol] 9.4 mg/dL 8.2-10.2 [facility] Serum or plasma chloride mandeep surement (moles/volume)Ordered By: Donavon Yanes on 06-18-2022 Chloride [Moles/Vol] 103 mmol/L 95-114 [facility] Serum or plasma glucose michael urement (mass/volume)Ordered By: Donavon Yanes on 06-18-2022 Glucose [Mass/Vol] 86 mg/dL 70-100 [facility] Comment on above: ADA recommended refe rence rangeRandom Glucose Reference Range is dependent on time and content of last meal. Glucose of more than 200 mg/dL in a nonstressed, ambulatory subject supports the diagnosis of Diabetes Mellitus. Serum or plasma high density lipoprotein (HDL) cholesterol measurementOrdered By: Donavon Yanes on 06-18-2022 Cholesterol in HDL [Mass/Vol] 46 mg/dL 35-85 [facility] Comment on above: HDL CHOL ATP-III CLA SSIFICATION Cardiovascular RiskHDL > or equal to 60 mg/dL LOWHDL < 40 mg/dL HIGH Serum or plasma potassium me asurement (moles/volume)Ordered By: Donavon Yanes on 06-18-2022 Potassium [Moles/Vol] 3.7 mmol/L 3.5-5.1 [facility] Serum or plasma sodium measu rement (moles/volume)Ordered By: Donavon Yanes on 06-18-2022 Sodium [Moles/Vol] 136 mmol/L 136-146 [facility] Serum or plasma total biliru bin measurement (mass/volume)Ordered By: Donavon Yanes on 06-18-2022 Bilirubin [Mass/Vol] 1.9 mg/dL 0.3-1.2 [facility] Comment on above: Samples from patient s who have taken Naproxen have shown spurious elevation in Total Bilirubin levels. A metabolite of Naproxen, O-desmethylnaproxen, has been shown to interfere with the Jentessik-Groprosper method for measuring Total Bilirubin. Serum or plasma total carbon dioxide measurement (moles/volume)Ordered By: Donavon Yanes on 06-18-2022 CO2 [Moles/Vol] 26.7 mmol/L 22.0-30.0 [facility] Serum or plasma total choles terol/high density lipoprotein (HDL) cholesterol mass ratOrdered By: Donavon Yanes on 06-18-2022 Cholesterol.total/Choles terol in HDL [Mass ratio] 3.1 {ratio} <5.0 [facility] Serum or plasma urea nitroge n measurement (mass/volume)Ordered By: Donavon Yanes on 06-18-2022 Urea nitrogen [Mass/Vol] 5 mg/dL 9-23 [facility] TSH DL <= 0.005 mIU/L QnOrde red By: Donavon Yanes on 06-18-2022 TSH Qn 0.74 m[IU]/L 0.45-5.33 [facility] Thyroxine (T4) free [Mass/vo lume] in Serum or PlasmaOrdered By: Donavon Yanes on 06-18-2022 Free T4 [Mass/Vol] 0.86 ng/dL 0.61-1.12 [facility] Triglyceride [Mass/volume] i n Serum or PlasmaOrdered By: Donavon Yanes on 06-18-2022 Triglyceride [Mass/Vol] 70 mg/dL 35-149 [facility] Comment on above: TRIG ATP III [...] 20 mg/L (U) [Mass/Vol] 67.2 mg/dL 0.0-1.8 [facility] Urine microalbumin/creatinin e mass ratioOrdered By: Donavon Yanes on 06-18-2022 Albumin/Creatinine DL <= 20 mg/L (U) [Mass ratio] 592.0 mg/g 0.0-30.0 [facility] Comment on above: 30-300 mg/g indicate s an increased risk for diabetic nephropathy. Greater than 300 mg/g is consistent with clinical nephropathy. (Am. J. Kidney Disease 1995, 25:107) PAP ACOG PANEL 2: 21 to 28on 03-19-2022 . . [facility] Comment on above: Performed By: #### [id number] #### [facility] [address] [address] [address] Angelica Smith Age Gdln ACOG Testing - [facility] Comment on above: Performed By: #### [id number] #### [facility] [address] [address] [address] Angeliac Smith DIAGNOSIS: Comment [facility] Comment on above: Result Comment: NEGA TIVE FOR INTRAEPITHELIAL LESION OR MALIGNANCY. Performed By: #### [id number] #### [facility] [address] [address] [address] Angelica Smith Methodology: Comment [facility] Comment on above: Result Comment: This liquid based ThinPrep(R) pap test was screened with the use of an image guided system. Performed By: #### [id number] #### [facility] [address] [address] [address] Angelica Smith Note: Comment [facility] Comment on above: Result Comment: The Pap smear is a screening test designed to aid in the detection of premalignant and malignant conditions of the uterine cervix. It is not a diagnostic procedure and should not be used as the sole means of detecting cervical cancer. Both false-positive and false-negative reports do occur. . Performed By: #### [id number] #### [facility] [address] [address] [address] Angelica Smith Performed by: Comment [facility] Comment on above: Result Comment: Sherry Torres, Composition Board Press Operator (ASCP) Performed By: #### [id number] #### [facility] [address] [address] [address] Angelica Smith Reflex Criteria: Comment Normal [facility] Comment on above: Result Comment: The HPV DNA reflex criteria were not met with this specimen result therefore, no HPV testing was performed. . Performed By: #### [id number] #### [facility] [address] [place] [address] Dr. Angelica Smith Specimen adequacy: Comment [facility] Comment on above: Result Comment: Sati sfactory for evaluation. Endocervical and/or squamous metaplastic cells (endocervical component) are present. Performed By: #### [id number] #### [facility] [address] [place] [address] Dr. Angelica Smith Vital Signs Date Time Vital Sign Value Performing Clinician Facility 05-23-2024 12:00-0400 Body temperature 97.7 [degF] COMPRESSOR STATION CHIEF ENGINEER-C Raeann Jang Work Phone: [facility] 05-23-2024 12:00-0400 Diastolic blood pressure 63 mm[Hg] COMPRESSOR STATION CHIEF ENGINEER-C Raeann Warchol Work Phone: [facility] 05-23-2024 12:00-0400 Heart rate 74 /min COMPRESSOR STATION CHIEF ENGINEER-C Raeann Warchol Work Phone: [facility] 05-23-2024 12:00-0400 Respiratory rate 16 /min COMPRESSOR STATION CHIEF ENGINEER-C Raeann Warchol Work Phone: [facility] 05-23-2024 12:00-0400 SaO2% (BldA) [Mass fraction] 98 % COMPRESSOR STATION CHIEF ENGINEER-C Raeann Warchol Work Phone: [facility] 05-23-2024 12:00-0400 Systolic blood pressure 95 mm[Hg] COMPRESSOR STATION CHIEF ENGINEER-C Raeann Warchol Work Phone: [facility] 05-23-2024 11:36-0400 Body height 175.26 cm COMPRESSOR STATION CHIEF ENGINEER-C Raeann Warchol Work Phone: [facility] 05-23-2024 11:36-0400 Body weight 62.14 kg COMPRESSOR STATION CHIEF ENGINEER-C Raeann Warchol Work Phone: [facility] 10-21-2023 09:48-0500 Body height 175.3 cm Raeann Warchol COMPRESSOR STATION CHIEF ENGINEER Work Phone: [facility] 10-21-2023 09:48-0500 Body mass index (BMI) [Ratio] 19.05 kg/m2 Raeann Warchol COMPRESSOR STATION CHIEF ENGINEER Work Phone: [facility] 10-21-2023 09:48-0500 Body temperature 98.2 [degF] Raeann Warchol COMPRESSOR STATION CHIEF ENGINEER Work Phone: [facility] 10-21-2023 09:48-0500 Body weight 58.51 kg Raeann Warchol COMPRESSOR STATION CHIEF ENGINEER Work Phone: [facility] 10-21-2023 09:48-0500 Diastolic blood pressure 60 mm[Hg] Raeann Warchol COMPRESSOR STATION CHIEF ENGINEER Work Phone: [facility] 10-21-2023 09:48-0500 Heart rate 81 /min Raeann Warchol COMPRESSOR STATION CHIEF ENGINEER Work Phone: [facility] 10-21-2023 09:48-0500 SaO2% (BldA) [Mass fraction] 100 % Raeann Warchol COMPRESSOR STATION CHIEF ENGINEER Work Phone: [facility] 10-21-2023 09:48-0500 Systolic blood pressure 112 mm[Hg] Raeann Warchol COMPRESSOR STATION CHIEF ENGINEER Work Phone: [facility] 04-10-2022 10:10-0400 Body height 172.72 cm Kirstin Hernandez Other [facility] Other 04-10-2022 10:10-0400 Body mass index (BMI) [Ratio] 20.37 kg/m2 Kirstin Hernandez Other [facility] Other 04-10-2022 10:10-0400 Body temperature 98.1 [degF] Kirstin Diegofredy Other [facility] Other 04-10-2022 10:10-0400 Body weight 60.78 kg Kirstin Diegofredy Other [facility] Other 04-10-2022 10:10-0400 Diastolic blood pressure 62 mm[Hg] Kirstin Diegofredy Other [facility] Other 04-10-2022 10:10-0400 Respiratory rate 16 /min Kirstin Hernandez Other [facility] Other 04-10-2022 10:10-0400 SaO2% (BldA) [Mass fraction] 98 % Kirstin Diegofredy Other [facility] Other 04-10-2022 10:10-0400 Systolic blood pressure 104 mm[Hg] Kirstin Hernandez Other [facility] Other 01-02-2022 11:10-0400 Body height 172.72 cm Kirstin Diegofredy Other [facility] Other 01-02-2022 11:10-0400 Body mass index (BMI) [Ratio] 21.59 kg/m2 Kirstin Diegofredy Other [facility] Other 01-02-2022 11:10-0400 Body temperature 98 [degF] Kirstin Hernandez Other [facility] Other 01-02-2022 11:10-0400 Body weight 64.41 kg Kirstin Hernandez Other [facility] Other 01-02-2022 11:10-0400 Diastolic blood pressure 68 mm[Hg] Kirstin Hernandez Other [facility] Other 01-02-2022 11:10-0400 Respiratory rate 16 /min Kirstin Hernandez Other [facility] Other 01-02-2022 11:10-0400 SaO2% (BldA) [Mass fraction] 99 % Kirstin Hernandez Other [facility] Other 01-02-2022 11:10-0400 Systolic blood pressure 104 mm[Hg] Kirstin Hernandez Other [facility] Other 09-03-2021 11:10-0500 Body height 172.72 cm Kirstin Hernandez Other [facility] Other 09-03-2021 11:10-0500 Body mass index (BMI) [Ratio] 21.89 kg/m2 Kirstin Hernandez Other [facility] Other 09-03-2021 11:10-0500 Body temperature 97.3 [degF] Kirstin Hernandez Other [facility] Other 09-03-2021 11:10-0500 Body weight 65.32 kg Kirstin Hernandez Other [facility] Other 09-03-2021 11:10-0500 Diastolic blood pressure 60 mm[Hg] Kirstin Hernandez Other [facility] Other 09-03-2021 11:10-0500 SaO2% (BldA) [Mass fraction] 95 % Kirstin Hernandez Other [facility] Other 09-03-2021 11:10-0500 Systolic blood pressure 104 mm[Hg] Kirstin Hernandez Other [facility] Other 07-07-2021 14:00-0400 Body height 172.72 cm Kirstin Hernandez Other [facility] Other 07-07-2021 14:00-0400 Body mass index (BMI) [Ratio] 22.04 kg/m2 Kirstin Hernandez Other [facility] Other 07-07-2021 14:00-0400 Body temperature 98.1 [degF] Kirstin Hernandez Other [facility] Other 07-07-2021 14:00-0400 Body weight 65.77 kg Kirstin Hernandez Other [facility] Other 07-07-2021 14:00-0400 Diastolic blood pressure 70 mm[Hg] Kirstin Hernandez Other [facility] Other 07-07-2021 14:00-0400 Respiratory rate 18 /min Kirstin Hernandez Other [facility] Other 07-07-2021 14:00-0400 SaO2% (BldA) [Mass fraction] 99 % Kirstin Hernandez Other [facility] Other 07-07-2021 14:00-0400 Systolic blood pressure 110 mm[Hg] Kirstin Hernandez Other [facility] Other Encounters Encounter Date Encounter Type Care Provider Facility Start: 05-26-2024 End: 05-26-2024 ambulatory ROHAN CHAUHAN Not Available Start: 05-23-2024 End: 05-23-2024 Patient encounter procedure COMPRESSOR STATION CHIEF ENGINEER-C Raeann Jang Work Phone: [facility] - [facility] Start: 05-23-2024 End: 05-23-2024 ambulatory COMPRESSOR STATION CHIEF ENGINEER-C Raeann Jang Work Phone: [facility] Work Phone: Start: 05-22-2024 End: 05-22-2024 ambulatory Raeann Jang Facility:[facility] Start: 04-14-2024 End: 04-14-2024 ambulatory Clarisa MIKE Facility:[facility] Start: 03-30-2024 End: 03-30-2024 ambulatory GINNY CUELLO Not Available Start: 03-30-2024 End: 03-30-2024 Patient encounter procedure COMPRESSOR [employer]ATION CHIEF ENGINEER-C Raeann Jang Work Phone: [facility] [place] Work Phone: Start: 03-30-2024 End: 03-30-2024 ambulatory COMPRESSOR [employer]ATION CHIEF ENGINEER-C Raeann Jang Work Phone: [facility] Work Phone: Start: 03-27-2024 End: 03-27-2024 ambulatory JHONATHAN TALIA Not Available Start: 02-28-2024 End: 02-28-2024 ambulatory JHOANTHAN TALIA Not Available Start: 02-04-2024 End: 02-04-2024 ambulatory RAEANN JANG Not Available Start: 12-21-2023 End: 12-21-2023 ambulatory ESME JOSHI Not Available Start: 12-15-2023 ambulatory [facility] Work Phone: Start: 12-15-2023 Non-patient / [facility] Work Phone: Start: 10-21-2023 End: 10-21-2023 ambulatory RAEANN JANG Not Available Start: 10-21-2023 End: 10-21-2023 Office outpatient visit 15 minutes Raeann Jang COMPRESSOR STATION CHIEF ENGINEER Work Phone: [facility] Comment on above: Attention-deficit hy peractivity disorder, other type (CMS/HCC) (Primary Dx); Bilateral impacted cerumen Start: 09-02-2023 End: 09-02-2023 ambulatory Tyler Armstrong Facility:[facility] Start: 08-31-2023 End: 08-31-2023 ambulatory RAEANN WARCHOL Not Available Start: 08-19-2023 End: 08-19-2023 Patient encounter procedure [facility] Work Phone: [facility] Start: 08-19-2023 End: 08-19-2023 ambulatory [facility] Work Phone: [facility] Work Phone: Start: 08-18-2023 End: 08-18-2023 ambulatory RAEANN WARCHOL Not Available Start: 08-10-2023 End: 08-10-2023 Patient encounter procedure [facility] Work Phone: [facility] [place] Work Phone: Start: 08-10-2023 End: 08-10-2023 ambulatory [facility] Work Phone: [facility] Work Phone: Start: 08-01-2023 End: 08-01-2023 ambulatory GINNY SARMIENTOION Not Available Start: 07-20-2023 End: 07-20-2023 Patient encounter procedure [facility] Work Phone: [facility] [place] Work Phone: Start: 07-20-2023 End: 07-20-2023 ambulatory [facility] Work Phone: [facility] Work Phone: Start: 05-27-2023 End: 05-27-2023 ambulatory [facility] Work Phone: [facility] Work Phone: Start: 05-27-2023 End: 05-27-2023 Patient encounter procedure [facility] Work Phone: [facility] [place] Work Phone: Start: 01-12-2023 End: 01-12-2023 ambulatory [facility] Work Phone: [facility] Work Phone: Start: 01-12-2023 End: 01-12-2023 Departed Referred Services [facility] Work Phone: [facility] Start: 12-09-2022 End: 12-09-2022 ambulatory DO Kirstin Hernandez Work Phone: [facility] Work Phone: Start: 12-09-2022 End: 12-09-2022 Departed Referred DO Kirstin Hernandze Work Phone: [facility] Start: 12-04-2022 End: 12-04-[address] JHONATHAN PEDRAZA . Facility:[facility] Start: 11-26-2022 Encounter for other preprocedural examination DR JHONATHAN PEDRAZA . [facility] Start: 11-26-2022 End: 11-26-2022 ambulatory DO Kirstin Hernandez Work Phone: [facility] Work Phone: Start: 11-26-2022 End: 11-26-2022 Patient encounter procedure DO Kirstin Hernandez Work Phone: [facility]-CT Scan [facility] [place] Work Phone: Start: 11-24-2022 End: 11-25-2022 ambulatory PRIMITIVO CHAU Facility:[facility] Start: 11-24-2022 End: 11-25-2022 Encounter for other preprocedural examination PRIMITIVO CHAU Facility:[facility] Start: 10-29-2022 End: 10-29-2022 ambulatory DO Kirstin Hernandez Work Phone: [facility] Work Phone: Start: 10-29-2022 End: 10-29-2022 Patient encounter procedure DO Kirstin Hernandez Work Phone: [facility]-Ultrasound [facility] [place] Work Phone: Start: 10-20-2022 End: 10-20-2022 ambulatory DO Kirstin Hernandez Work Phone: [facility] Work Phone: Start: 10-20-2022 End: 10-20-2022 Departed Referred DO Kirstin Hernandez Work Phone: [facility] Start: 10-09-2022 End: 10-09-2022 Departed Referred DO Kirstin Hernandez Work Phone: [facility] Start: 10-02-[address] JHONATHAN PEDRAZA . Facili ty:[facility] Start: 09-29-[address] JHONATHAN PEDRAZA . Facili ty:[facility] Start: 09-28-2022 End: 09-28-2022 ambulatory HUMPHREY HOLLAND Facility:[facility] Start: 09-23-[address] JHONATHAN PEDRAZA . Facili ty:[facility] Start: 09-22-2022 End: 10-20-[address] JHONATHAN PEDRAZA . Facility:[facility] Start: 08-11-2022 End: 08-11-2022 ambulatory DO Kirstin Hernandez Work Phone: [facility] Work Phone: Start: 08-11-2022 End: 08-11-2022 Patient encounter procedure DO Kirstin Hernandez Work Phone: [facility] [place] Start: 08-04-2022 End: 08-04-2022 ambulatory Kirstin Hernandez Other [facility] Other Start: 08-04-2022 Telephone encounter Kirstin Hernandez [facility] Start: 06-25-[address] JHONATHAN PEDRAZA . Facili ty:[facility] Start: 06-18-2022 End: 06-18-2022 ambulatory DO Kirstin Hernandez Work Phone: [facility] Work Phone: Start: 06-18-2022 End: 06-18-2022 Patient encounter procedure DO Kirstin Hernandez Work Phone: [facility] [place] Start: 06-12-[address] JHONATHAN PEDRAZA . Facili ty:[facility] Start: 06-08-[address] JHONATHAN PEDRAZA . Facili ty:[facility] Start: 04-14-2022 End: 04-14-2022 ambulatory Kirstin Hernandez Other [facility] Other Start: 04-14-2022 Telephone encounter Kirstin Hernandez [facility] Start: 04-10-2022 End: 04-10-2022 ambulatory Kirstin Hernandez Other [facility] Other Start: 04-10-2022 Office outpatient vi sit 15 minutes Kirstin Hernandez [facility] [employer] Start: 03-24-[address] KIRSTIN HERNANDEZ Facilit y:[facility] Start: 03-16-2022 End: 03-16-[address] JHONATHAN PEDRAZA . Facility:[facility] Start: 03-10-2022 End: 03-10-2022 ambulatory Kirstin Hernandez Other [facility] Other Start: 03-10-2022 Telephone encounter Kirstin Hernandez [facility] [employer] Start: 01-02-2022 End: 01-02-2022 ambulatory Kirstin Hernandez Other [facility] Other Start: 01-02-2022 Office outpatient vi sit 25 minutes Kirstin Hernandez [facility] [employer] Start: 01-02-2022 Telephone encounter Kirstin Hernandez [facility] Start: 12-08-2021 End: 12-08-2021 ambulatory Kirstin Hernandez Other [facility] Other Start: 12-08-2021 Telephone encounter Kirstin Hernandez [facility] Start: 12-02-2021 End: 12-02-2021 ambulatory Kirstin Hernandez Other [facility] Other Start: 12-02-2021 Telephone encounter Kirstin Hernandez [facility] Start: 09-03-2021 End: 09-03-2021 ambulatory Kirstin Hernandez Other [facility] Other Start: 09-03-2021 Office outpatient vi sit 15 minutes Kirstin Hernandez [facility] Start: 07-07-2021 Office outpatient vi sit 15 minutes Kirstin Hernandez [facility] Procedures Date Procedure Procedure Detail Performing Clinician Start: 03-30-2024 Respiratory Panel (PCR) COMPRESSOR STATION CHIEF ENGINEER-C Raeann Jang Work Phone: Start: 08-10-2023 Respiratory Panel (PCR) Services [facility] Work Phone: Start: 12-09-2022 Respiratory Panel (PCR) DO Kirstin Hernandez Work Phone: Start: 11-26-2022 Computed tomography of abdomen and pelvis with contrast DO Kirstin Hernandez Work Phone: Start: 10-29-2022 Ultrasonography of b ilateral kidneys DO Kirstin Cortezfredy Work Phone: Start: 10-29-2022 US scan of gallbladder DO Kirstin Hernandez Work Phone: Plan of Treatment Date Care Activity Detail Author Start: 05-23-2024 [facility] Start: 05-23-[address] [facility] Start: 12-15-2023 Patient referral [facility] Work Phone: Start: 01-12-2023 Bacteria identified in Urine by Culture Urine Culture [facility] 17-Hydroxyprogestero ne [Mass/volume] in Serum or Plasma [facility] Alternaria alternata IgE Ab [Units/volume] in Serum [facility] [place] house dust mite IgE Ab [Units/volume] in Serum [facility] [place] Paisley Ig E Ab [Units/volume] in Serum [facility] Androstenedione [Mass/volume] in Serum or Plasma [facility] Aspergillus fumigatu s IgE Ab [Units/volume] in Serum [facility] Shaffer's yeast IgE Ab [Units/volume] in Serum [facility] Banana IgE Ab [Units/volume] in Serum [facility] Barley IgE Ab [Units/volume] in Serum [facility] Beef IgE Ab [Units/v olume] in Serum [facility] Bermuda grass IgE Ab [Units/volume] in Serum [facility] Boxelder IgE Ab [Units/volume] in Serum [facility] Cat dander IgG Ab [Units/volume] in Serum [facility] Cheese cheddar type IgE Ab [Units/volume] in Serum [facility] Chicken meat IgE Ab [Units/volume] in Serum [facility] Cladosporium herbaru m IgE Ab [Units/volume] in Serum [facility] Cockroach IgE Ab [Units/volume] in Serum [facility] Common Ragweed IgE A b [Units/volume] in Serum [facility] [place] IgE Ab [Units/v olume] in Serum [facility] Jay IgE Ab [Units/volume] in Serum [facility] Cow milk IgE Ab [Units/volume] in Serum [facility] Dog dander IgE Ab [Units/volume] in Serum [facility] Egg white IgE Ab [Units/volume] in Serum [facility] Estradiol (E2) [Mass/volume] in Serum or Plasma [facility] house dust mite IgE Ab [Units/volume] in Serum [facility] Gluten IgE Ab [Units/volume] in Serum [facility] HLA DQ antigen typing [facility] IgE [Units/volume] i n Serum or Plasma [facility] Insulin [Units/volum e] in Serum or Plasma [facility] Insulin [Units/volum e] in Serum or Plasma [facility] Lutropin [Units/volu me] in Serum or Plasma [facility] Mountain Juniper IgE Ab [Units/volume] in Serum [facility] Mouse urine proteins IgE Ab [Units/volume] in Serum [facility] Oat IgE Ab [Units/vo lume] in Serum [facility] [place] IgE Ab [Units/volume] in Serum [facility] Patient Education Antepartum Dis charge Instructions ([facility]) [facility] Work Phone: Patient referral [facility] Work Phone: Peanut IgE Ab [Units/volume] in Serum [facility] Pecan or Emmet Domo e IgE Ab [Units/volume] in Serum [facility] Penicillium notatum IgE Ab [Units/volume] in Serum [facility] Pork IgE Ab [Units/v olume] in Serum [facility] Potato IgE Ab [Units/volume] in Serum [facility] Progesterone [Mass/v olume] in Serum or Plasma [facility] Rice IgE Ab [Units/v olume] in Serum [facility] Rough Pigweed IgE Ab [Units/volume] in Serum [facility] Vaux[place] IgE Ab [Units/vo lume] in Serum [facility] Saltwort IgE Ab [Units/volume] in Serum [facility] Sheep Ford IgE Ab [Units/volume] in Serum [facility] Silver Birch IgE Ab [Units/volume] in Serum [facility] Soybean IgE Ab [Units/volume] in Serum [facility] Testosterone Free [Mass/volume] in Serum or Plasma [facility] Testosterone Free [Mass/volume] in Serum or Plasma [facility] Donavon IgE Ab [Units/volume] in Serum [facility] Tomato IgE Ab [Units/volume] in Serum [facility] Hav[place] IgE Ab [Units/volume] in Serum [facility] Wheat IgE Ab [Units/volume] in Serum [facility] White [place] IgE Ab [Units/volume] in [facility] [place] IgG Ab [Units/volume] in [facility] [place] IgE A b [Units/volume] in [facility] [place] IgE Ab [Units/volume] in [facility] Immunizations Immunization Date Immunization Notes Care Provider Fa irasema 07-20-2023 Influenza, injectable, Madin Melida Canine Kidney, preservative free, quadrivalent Raeann Warchol COMPRESSOR STATION CHIEF ENGINEER Work Phone: [facility] 07-10-2022 influenza, injectable, quadrivalent, preservative free Raeann Warchol COMPRESSOR STATION CHIEF ENGINEER Work Phone: [facility] 07-07-2022 tetanus toxoid, reduced diphtheria toxoid, and acellular pertussis vaccine, adsorbed Raeann Warchol COMPRESSOR STATION CHIEF ENGINEER Work Phone: [facility] 01-13-2022 varicella virus vaccine Raeann Jang COMPRESSOR STATION CHIEF ENGINEER Work Phone: [facility] 12-23-2021 tuberculin skin test; purified protein derivative solution, intradermal Raeann Jang COMPRESSOR STATION CHIEF ENGINEER Work Phone: [facility] 08-18-2021 COVID-19 Vaccine Pfizer - Documentation Purposes Only Kirstin Hernandez Other [facility] 07-28-2021 COVID-19 Vaccine Pfizer - Documentation Purposes Only Kirstin Hernandez Other [facility] 06-11-2021 diphtheria, tetanus toxoids and pertussis vaccine Kirstin Hernandez Other [facility] Other 06-11-2021 measles, mumps and rubella virus vaccine Kirstin Hernandez Other [facility] Other 07-17-2019 influenza, seasonal, injectable Patient Objection Kirstin Hernandez Other [facility] Other 11-09-2014 Rocephin 500 mg Kirstin Hernandez Other [facility] Other 06-09-2012 hepatitis A vaccine, pediatric/adolescent dosage, 2 dose schedule Kirstin Hernandez Other [facility] Other 06-09-2012 human papilloma virus vaccine, quadrivalent Kirstin Hernandez Other [facility] Other 06-09-2012 meningococcal polysaccharide (groups A, C, Y and W-135) diphtheria toxoid conjugate vaccine (MCV4P) Kirstin Hernandez Other [facility] Other 06-09-2012 tetanus toxoid, reduced diphtheria toxoid, and acellular pertussis vaccine, adsorbed Kirstin Hernandez Other [facility] Other 04-01-2004 diphtheria, tetanus toxoids and acellular pertussis vaccine, unspecified formulation Kirstin Hernandez Other [facility] 04-01-2004 measles, mumps and rubella virus vaccine Kirstin Hernandez Other [facility] Other 04-01-2004 poliovirus vaccine, inactivated Kirstin Hernandez Other [place] [facility] Other 04-01-2004 poliovirus vaccine, unspecified formulation [facility] 08-20-2000 diphtheria, tetanus toxoids and acellular pertussis vaccine, unspecified formulation Kirstin Hernandez Other [place] [facility] Other 08-20-2000 haemophilus influenzae type b vaccine, conjugate unspecified formulation Kirstin Hernandez Other [place] [facility] Other 08-20-2000 measles, mumps and rubella virus vaccine Kirstin Hernandez Other [facility] Other 08-20-2000 poliovirus vaccine, inactivated Kirstin Hernandez Other [place] [facility] Other 08-20-2000 poliovirus vaccine, unspecified formulation [facility] 08-20-2000 varicella virus vaccine Kirstin Hernandez Other [place] [facility] Other 01-23-2000 diphtheria, tetanus toxoids and acellular pertussis vaccine, unspecified formulation Kirstin Hernandez Other [facility] Other 01-23-2000 haemophilus influenzae type b conjugate and Hepatitis B vaccine Kirstin Hernandez Other [facility] Other 1999 diphtheria, tetanus toxoids and acellular pertussis vaccine, unspecified formulation Kirstin David Other [facility] Other 1999 haemophilus influenzae type b conjugate and Hepatitis B vaccine Kirstin Hernandez Other [facility] Other 1999 poliovirus vaccine, inactivated Kirstin Hernandez Other [facility] Other 1999 poliovirus vaccine, unspecified formulation [facility] 1999 diphtheria, tetanus toxoids and acellular pertussis vaccine, unspecified formulation Kirstin Hernandez Other [facility] Other 1999 haemophilus influenzae type b conjugate and Hepatitis B vaccine Kirstin Hernandez Other [facility] Other 1999 poliovirus vaccine, inactivated Kirstin Hernandez Other [facility] Other 1999 poliovirus vaccine, unspecified formulation [facility] NEGATED: Highlighted row has not occurred! 1 influenza, seasonal, injectable Patient Objection Kirstin Hernandez Other [facility] Other NEGATED: Highlighted row has not occurred! 9 influenza, seasonal, injectable Patient Objection Kirstin Hernandez Other [facility] Other Payers Date Payer Category Payer Medicaid [employer] [place] [id number] 2023-Present [address] [place] [address] [id number] 2021 Unknown BCBS BCBS [id number] 2021-Present [phone] [address] [place] [address] 1.2.840.476905.1.13.693.2. 7.3.491812.315 1999 Unknown [id number] 2.16.840.1.670916.3.579.2. 593 1999 Unknown [id number] 2.16.840.1.789869.3.579.2. 593 1999 Unknown [id number] 2.16.840.1.657326.3.579.2. 593 1999 Unknown [id number] 2.16.840.1.383958.3.579.2. 593 1999 Unknown [id number] 2.16.840.1.293861.3.579.2. 593 1999 Unknown [id number] 2.16.840.1.390433.3.579.2. 593 1999 Unknown [id number] 2.16.840.1.087174.3.579.2. 593 1999 Unknown [id number] 2.16.840.1.194190.3.579.2. 593 1999 Unknown [id number] 2.16.840.1.164476.3.579.2. 593 1999 Unknown [id number] 2.16.840.1.976657.3.579.2. 593 1999 Unknown [id number] 2.16.840.1.408630.3.579.2. 593 1999 Unknown [id number] 2.16.840.1.516996.3.579.2. 593 1999 Unknown [id number] 2.16.840.1.388089.3.579.2. 1259 1999 Unknown [id number] 2.16.840.1.205018.3.579.2. 1259 1999 Unknown [id number] 2.16.840.1.273695.3.579.2. 1259 1999 Unknown [id number] 2.16.840.1.267302.3.579.2. 1259 1999 Unknown [id number] 2.16.840.1.299826.3.579.2. 1259 1999 Unknown [id number] 2.16.840.1.220109.3.579.2. 9 1999 Unknown [id number] 2.16.840.1.881557.3.579.2. 1259 1999 Unknown [id number] 2.16.840.1.605996.3.579.2. 1258 1999 Unknown [id number] 2.16.840.1.092391.3.579.2. 9 1999 Unknown [id number] 2.16.840.1.010183.3.579.2. 1258 1999 Unknown [id number] 2.16.840.1.885624.3.579.2. 9 1999 Unknown [id number] 2.16.840.1.465548.3.579.2. 1258 1999 Unknown [id number] 2.16.840.1.111435.3.579.2. 9 1999 Unknown [id number] 2.16.840.1.810492.3.579.2. 8 1999 Unknown [id number] 2.16.840.1.052641.3.579.2. 7[address] [facility] [id number] .16.840.1.080726. 1959 Private Health Insurance [id number] .16.840.1.336050. 1959 Private Health Insurance [id number] 1959 Self-pay [id number] Unknown [id number] 2.16.840.1.309103.3.579.2. 531 Unknown [id number] 2.16.840.1.401286.3.579.2. 531 Unknown [id number] 2.16.840.1.082460.3.579.2. 531 Unknown [id number] 2.16.840.1.463830.3.579.2. 531 Unknown [id number] 2.16.840.1.646369.3.579.2. 531 Social History Date Type Detail Facility Unknown if ever smoked [facility] Other Start: 10-21-2023 Sex Assigned At [employer] [facility] Other Start: 2000 Sex Assigned At Female [facility] Start: 10-21-2023 Tobacco smoking status NHIS Smokes tobacco daily [facility] Start: 10-21-2023 [...] [facility] Start: 11-10-2017 Tobacco smoking status [facility] Never smoked tobacco (finding) [facility] NEGATED: Highlighted rowStart: NINF History of tobacco use Passive smoker [facility] Clinical Notes 12-02-2011 to 05-22-2024 Raeann Jang, JEAN CLAUDE - 10/21/2023 9:40 AM ESTPatient Instructions Note Date & Type Note Facility 05-22-2024 Note Patient Education Ma terials Follows: Dental Pain Dental pain is often a sign that something is wrong with your teeth or gums. You can also have pain after a dental treatment. If you have dental pain, it is important to contact your dentist, especially if the cause of the pain is not known. Dental pain may hurt a lot or a little and can be caused by many things, including: ? Tooth decay (cavities or caries). ? Infection. ? The inner part of the tooth being filled with pus (an abscess). ? Injury. ? A crack in the tooth. ? Gums that move back and expose the root of a tooth. ? Gum disease. ? Abnormal grinding or clenching of teeth. ? Not taking good care of your teeth. Sometimes the cause of pain is not known. You may have pain all the time, or it may happen only when you are: ? Chewing. ? Exposed to hot or cold temperatures. ? Eating or drinking foods or drinks that have a lot of sugar in them, such as soda or candy. Follow these instructions at home: Medicines ? Take qegf-pvi-ssnrwqr and prescription medicines only as told by your dentist. ? If you were prescribed an antibiotic medicine, take it as told by your dentist. Do not stop taking it even if you start to feel better. Eating and drinking Do not eat foods or drinks that cause you pain. These include: ? Very hot or very cold foods or drinks. ? Sweet or sugary foods or drinks. Managing pain and swelling ? If told, put ice on the painful area of your face. To do this: ? Put ice in a plastic bag. ? Place a towel between your skin and the bag. ? Leave the ice on for 20 minutes, 2?3 times a day. ? Take off the ice if your skin turns bright red. This is very important. If you cannot feel pain, heat, or cold, you have a greater risk of damage to the area. Brushing your teeth ? [place] your teeth twice a day using a fluoride toothpaste. ? Use a toothpaste made for sensitive teeth as told by your dentist. ? Use a soft toothbrush. General instructions ? Floss your teeth at least once a day. ? Do not put heat on the outside of your face. ? Rinse your mouth often with salt water. To make salt water, dissolve ??1 tsp (3?6 g) of salt in 1 cup (237 mL) of warm water. ? Watch your dental pain. Let your dentist know if there are any changes. ? Keep all follow-up visits. Contact a dentist if: ? You have dental pain and you do not know why. ? Medicine does not help your pain. ? Your symptoms get worse. ? You have new symptoms. Get help right away if: ? You cannot open your mouth. ? You are having trouble breathing or swallowing. ? You have a fever. ? Your face, neck, or jaw is swollen. These symptoms may be an emergency. Get help right away. Call your local emergency services (911 in the [place] ? Do not wait to see if the symptoms will go away. ? Do not drive yourself to the hospital. Summary ? Dental pain may be caused by many things, including tooth decay, injury, or infection. In some cases, the cause is not known. ? Dental pain may hurt a lot or very little. You may have pain all the time, or you may have it only when you eat or drink. ? Take qeey-vdh-qxhoubo and prescription medicines only as told by your dentist. ? Watch your dental pain for any changes. Let your dentist know if symptoms get worse. This information is not intended to replace advice given to you by your health care provider. Make sure you discuss any questions you have with your health care provider. Document Revised: 06/11/2021 Document Reviewed: 06/11/2021 [employer] Patient Education ? 2023 Department of Health and Human Services. Dentistry Dental Pain Dental pain is often a sign that something is wrong with your teeth or gums. You can also have pain after a dental treatment. If you have dental pain, it is important to contact your dentist, especially if the cause of the pain is not known. Dental pain may hurt a lot or a little and can be caused by many things, including: ? Tooth decay (cavities or caries). ? Infection. ? The inner part of the tooth being filled with pus (an abscess). ? Injury. ? A crack in the tooth. ? Gums that move back and expose the root of a tooth. ? Gum disease. ? Abnormal grinding or clenching of teeth. ? Not taking good care of your teeth. Sometimes the cause of pain is not known. You may have pain all the time, or it may happen only when you are: ? Chewing. ? Exposed to hot or cold temperatures. ? Eating or drinking foods or drinks that have a lot of sugar in them, such as soda or candy. Follow these instructions at home: Medicines ? Take dobk-kfe-wtpbzsg and prescription medicines only as told by your dentist. ? If you were prescribed an antibiotic medicine, take it as told by your dentist. Do not stop taking it even if you start to feel better. Eating and drinking Do not eat foods or drinks that cause you pain. These include: (more content not included)... [facility] 12-15-2023 Hospital Discharg e instructions Ambulatory OrdersReferral to Orthopedics Time Frame: 12/15/23, Location: None [facility] Work Phone: 10-21-2023 History of Presen [...] follow-up: [facility] . documented in this encounter [facility] 10-21-2023 Instructions Raeann Jang NP - 10/21/2023 9:40 AM EST PATIENT EDUCATION: ADHD Current drug therapy discussed during office visit. Call office for worsening of symptoms for follow-up visit. Per [facility] regulations, follow-ups have to occur at least [...] for repeat lavage. documented in this encounter [facility] 09-03-2023 Note [id number] [facility] 09-02-2023 Note Patient Education Ma terials Follows: [facility] 12-04-2022 Note OPERATIVE NOTE OPERATION DATE: 12/04/2022 PROCEDURE: Robotic assisted diagnostic laparoscopy. PREOPERATIVE DIAGNOSIS: Pelvic pain. POSTOPERATIVE DIAGNOSIS: Pelvic pain. ANESTHESIA: General. SURGEON: Jhonathan Pedraza D.O. USABILITY SPECIALIST: STEPHON Weber URINE OUTPUT: Yellow and clear. [...] to Recovery Room in stable condition. [facility] 08-04-2022 Evaluation note Encounter Date Diagnosis Assessment Notes Jul, ADHD (attention deficit hyperactivity disorder) (ICD-10 - F90.9) Jul, Anxiety (ICD-10 - F41.9) [facility] Other 07-22-2022 Evaluation note* Encounter Date Diagnosis [...] done in May (2021) by Dr. Pedraza. [facility] Other 06-21-2022 Evaluation note* Encounter Date Diagnosis Assessment Notes Treatment Notes Treatment Clinical Notes Feb, Fatigue (ICD-10 - R53.83) Feb, Weakness (ICD-10 - R53.1) Feb, Chest pain (ICD-10 - R07.9) [facility] Other 04-15-2022 Evaluation note* Encounter Date Diagnosis [...] other issues that take precedence. Dec, Other supervisor long goods (current) drug therapy (ICD-10 - Z79.899) Dec, [...] the symptoms so they can be documented. [facility] Other 03-15-2022 Evaluation note* Encounter Date Diagnosis Assessment Notes Treatment Notes Treatment Clinical Notes Nov, ADHD (attention deficit hyperactivity disorder) (ICD-10 - F90.9) [facility] Other 12-15-2021 Evaluation note* Encounter Date Diagnosis [...] that her HGB has improved. Aug, Other supervisor long goods (current) drug therapy (ICD-10 - Z79.899) After she has been on the Adderall for a few weeks she should have lab drawn to be sure the medication is not affecting liver or kidneys, she can call for results. [facility] Other 10-18-2021 Evaluation note* Encounter Date Diagnosis [...] have EMDR done through her new counselor. [facility] Other 03-14-2012 History general Narrative - Reported* Type Description Date Medical History 12-02-2011 Echo - Structurally No rmal Heart Medical History 12-02-11 CXR - Negative Medical History 12-02-11 Echo- Structurally [place] [facility] Medical History Pre & Post Spirometry Medical History ADD Medical History X-Ray Left Ankle 08-07-13; [facility] Medical History PCOS found on ultrasound Medical History bipolar -2 Surgical History No Surgical history information Hospitalization History [facility] - chest pain s 08/12/15 Hospitalization History [facility] panic attack 08/17/15 [facility] Other [id number] History general Narrative - Reported* Type Description Date Medical History 12-02-2011 Echo - Structurally No rmal Heart Medical History 12-02-11 CXR - Negative Medical History 12-02-11 Echo- Structurally [place] [facility] Medical History Pre & Post Spirometry Medical History ADD Medical History X-Ray Left Ankle 08-07-13; [facility] Medical History PCOS found on ultrasound Medical History bipolar -2 Medical History 10/07/21 pt states sh e had seizures 3-4 years ago that were stress induced Surgical History No Surgical history information Hospitalization History [facility] - chest pain s 08/12/15 Hospital[facility] 08/17/15 [facility] Other Evaluation noteNo InformationNortDollar Sh[employer] Other Evaluation noteNo assessment information available [facility] Work Phone: Evaluation note* Diagnosis Attention-deficit hyperactivity disorder, other type (CMS/HCC)- Primary Bilateral impacted cerumen Impacted cerumen [facility] Narrativemed refill Adderall, discuss multiple issues, [facility] [employer] Other Advance Directives No Advanced Directives Records [...] R63.4 J06.9 n91.2 Chief Complaint R05.1 R09.81 Chief Complaint R05.1 R09.[address] sent Summary Purpose Family History No Family History [...] End: March 30, 2024 Ginny Cuello APRN COMPRESSOR STATION CHIEF ENGINEER-C Attending Provider Act michelle Start: March 30, 2024 End: March 30, 2024 Team Status: Active Member Role Status Dates UAN Ruiz Primary Care Provider Active Start: December 15, 2023 Kirstin Hernandez DO Attending Provider Active Star t: March 27th, 2024 Team Status: Inactive Member Role Status Dates Kirstin Hernandez , DO Primary Care Provider Active Donavon Yanes , DO Attending Provider Active Team Status: Active Member Role Status Dates Kirstin Hernandez , DO Primary Care Provider Active Team Status: Inactive Member Role Status Dates Services [facility] Primary Care Provider Active Tiarra Childs COMPRESSOR STATION CHIEF ENGINEER-C Attending Provide r Active Team Status: Inactive Member Role Status Dates Kirstin Hernandez , DO Primary Care Provider Active Tiarra Childs COMPRESSOR STATION CHIEF ENGINEER-C Attending Provide r Active Team Status: Active Member Role Status Dates Services [facility] Primary Care Provider Active Team Status: Inactive Member Role Status Dates Tiarra Childs COMPRESSOR STATION CHIEF ENGINEER-C Attending Provide r Active Services [facility] Primary Care Provider Active Team Status: Inactive Member Role Status Dates Tiarra Childs COMPRESSOR STATION CHIEF ENGINEER-C Attending Provide r Active Team Status: Active Member Role Status Dates Services [facility] Primary Care Provider Ac tive Team Status: Inactive Member Role Status Dates Services [facility] Primary Care Provider Ac tive Tiarra Childs COMPRESSOR STATION CHIEF ENGINEER-C Attending Provide r Active Team Status: Inactive Member Role Status Dates [facility] Primary Care Provider Ac tive Raeann Jang COMPRESSOR STATION CHIEF ENGINEER-C Attending Provider Active Team Status: Inactive Member Role Status Dates UNA Ruiz Primary Care Provider, Attending Pr ovider Active [employer] Vice President Relationship Specialty Start Date End Date Yovany Crawley MD [address] [place] [address] PCP - General Family Medicine 07/20/23 Raeann Jang NP [address] [place] [address] Nurse Practitioner Family Medicine 07/20/23 Team Status: Inactive Member Role Status Dates UNA Ruiz Primary Care Provider Active Start: May 23, 2024 End: May 23, 2024 Andrzej Grace DO Attending Provider Active Sta rt: May 23, 2024 End: May 23, 2024 Goals (unrecognized section and content) Goals may be documented in a n alternate section INFORMATION SOURCE (unrecogn ized section and content) DATE CREATED AUTHOR 01/29/2023 [facility] DATE CREATED AUTHOR AUTHOR'S ORGANIZ ATION 04/15/2024 [facility] DATE CREATED AUTHOR AUTHOR'S ORGANIZ ATION 04/19/2024 Montoya [facility] DATE CREATED AUTHOR AUTHOR'S ORGANIZ ATION 05/28/2024 [facility] DATE CREATED AUTHOR AUTHOR'S ORGANIZ ATION 2024 [facility] DATE CREATED AUTHOR AUTHOR'S ORGANIZ ATION 06/01/2024 [facility] y[facility] Group FOR RECORDS PERTAINING TO PATIENTS [...] BE BASED ON THE PRIMARY CLINICAL RECORDS. [facility] [employer] provides no warranty or guarantee of the accuracy or completeness of information in this document.
--- NOTE | 2024-06-14 15:32 | US_ITS ---
The [address] [address] Patient Name: CHARLETTE ROCHA MRN: [id number] date: 2000 Sex: F Assigned Patient Location: US Current Patient Location: Accession/Order Number: [id number] Exam Date: 06/14/2024 15:04 Report Date: 06/15/2024 04:08 At the request of: TESSA MELGAR Procedure: US OB transvaginal EXAM: US OB incomplete anatomy, US OB transvaginal HISTORY: Encounter For Follow Up Ultrasound Of Anatomy Z36.2 COMPARISON: Ultrasound OB anatomy 05/02/2024 TECHNIQUE: Transabdominal and endovaginal ultrasound. FINDINGS: Presentation: Cephalic Heart rate: 136 bpm Placenta: Posterior with lower margin 4.1 cm from os. Cervix: 4.0 cm in length, closed. Anatomy: Four-chamber heart, cardiac outflow tracts, upper extremities GA: 27 weeks 1 day KEATON 09/12/2024 US/US OB transvaginal IMPRESSION: 1. Single live intrauterine . 2. Adequate visualization of the four-chamber heart, cardiac outflow tracts, and upper extremities. No appreciable abnormality. Electronically authenticated by: KORI COVINGTON Date: 06/15/2024 04:08
== END 2024-06-14 14:56 | disposition home or self-care (01) ==
LOC: US 14:55
PROVIDERS: Visit Provider Obstetrics & Gynecology
DX: Z36.2 Encounter for other antenatal screening follow-up (principal); Z3A.27 27 weeks gestation of pregnancy; O44.43 Low lying placenta NOS or without hemorrhage, third trimester
CPT/HCPCS: 76815; 76817

== ENCOUNTER 2024-06-30 18:50 | Outpatient (OUT) | payer BC, OTHER, SELFPAY ==
--- NOTE | 2024-06-30 18:52 | US_ITS ---
The [place] [id number] Patient Name: CHARLETTE ROCHA MRN: [facility]:[id number] date: 2000 Sex: F Assigned Patient Location: [place] Current Patient Location: Accession/Order Number: [id number] Exam Date: 06/30/2024 19:00 Report Date: 07/03/2024 11:26 At the request of: TESSA MELGAR Procedure: US OB growth EXAMINATION: US OB growth HISTORY: SIZE INCONSISTENT WITH DATES O26.849 COMPARISON: No relevant comparison available. FINDINGS: Heart Rate: 141.36 bpm Amniotic Fluid Volume: 17.5 cm, largest fluid pocket 5 cm Number: 1 Position: Cephalic presentation, longitudinal lie BIOMETRY: BPD: 7.49 cm; 30 weeks 0 days; 57.40 % HC: 27.38 cm; 29 weeks 6 days; 29 % AC: 25.18 cm; 29 weeks 3 days; 42.50 % FL: 5.57 cm; 29 weeks 2 days; 32.20 % EFW: 1398.45 g; 38 %, 3 lbs. 1 oz. FL/AC: 22.13 FL/BPD: 74.44 HC/AC: 1.09 GESTATIONAL AGE: Age by EDC: 29 weeks 3 days KEAT[place] by EDC: 2024-09-12 Age by US: 29 weeks 5 days [place] by US: 2024-09-10 US/US OB growth IMPRESSION: Normal interval growth Electronically authenticated by: KIRSTIN BOJORQUEZ Date: 07/03/2024 11:26
--- OUTSIDE RECORDS SUMMARY | 2024-06-30 18:54 | XMS_ITS | CCD ---
Author Organization [facility] Care Team Providers Care [employer] Leak Tester Name Role Phone Kirstin Hernandez Unavailable David, DO [place] Primary Care Provider [phone] DO Donavon Yanes Attending Provider [phone] David, DO [place] Primary Care Provider DO Donavon Yanes Attending Provider David, DO [place] Primary Care Provider DO Donavon Yanes Attending Provider UNA Childs Attending Pr ovider [facility] Primary Care Provider DO Kirstin Hernandez Primary Care Provider DO Kirstin Hernandez Primary Care Provider UNA Childs Attending Pr ovider [facility] Primary Care Provider UNA Childs Attending Pr ovider [facility] Primary Care Provider [phone] TALIA .DR ZARATE Attending Unavailable DAVID, DR [...] HOLLAND Attending Unavailable HUMPHREY HOLLAND Consulting Unavailable CHAU, PRIMITIVO Consulting Unavailable GIRVIN, DR [place] Primary Care Unavailable TALIA ., DR ZARATE Admitting Unavailable TALIA ., DR ZARATE Attending Unavailable [facility] Primary Care [facility] ider UNA Childs Attending Pr ovider UNA Ch Attending Provider [phone] [facility] Primary Care [facility] ider UNA Childs Attending Pr ovider UNA Ch Attending Provider [phone] UNA Ch Primary Care Provider Yovany Crawley MD Primary Care Provider Jing SODDER, Raeann Unavailable ARLEN ChC Raeann Primary Care Provider HEIDI Cuello Attending Provider [phone] RASHID Clarisa Allie Attending Unavailable DO Andrzej Grace Attending Provider Raeann Ch M Primary Care Unavailable UNA Templeton Attending Unavailable UNA Templeton Admitting Unavailable Armstrong, Tyler L Admitting Unavailable Armstrong, Tyler L Primary Care Unavailable Armstrong Tyler L Attending Unavailable Warchol, Raeann Attending Unavailable Warchol, Raeann Admitting Unavailable Warchol, Raeann Primary Care Unavailable Visci Andrzej Admitting Unavailable Visckandi Andrzej Attending Unavailable Warchol, Raeann Primary Care Unavailable Warchol, Raeann Attending Unavailable Warchol, Raeann Admitting Unavailable Warchol, Raeann Primary Care Unavailable Warchol, Raeann Attending Unavailable Warchol, Raeann Admitting Unavailable [facility] Primary Care U navailable Ginny Cuello Admitting Unavailable LauseGinnyee Attending Unavailable Warchol, Raeann Primary Care Unavailable WARCHOL, RAEANN Attending Unavailable WARCHOL, RAEANN Attending Unavailable DIDIONGINNY L Attending Unavailable GINNY RAMESH L Referring Unavailable ESME JOSHI Attending Unavailable ESME JOSHI Referring Unavailable WARCHOL, RAEANN Referring Unavailable WARCHOL, RAEANN Attending Unavailable JHONATHAN PEDRAZA Attending Unavailable JHONATHAN PEDRAZA Attending Unavailable GINNY CUELLO Attending Unavailable ROHAN CHAUHAN Attending Unavailable JHONATHAN PEDRAZA Attending Unavailable Allergies Allergy Classification Reported Allergen(s) Allergy Type Date of Onset Reaction(s) Facility (10 sources) Citalopram Drug Allergy headaches, upset [facility] Other (1 source) Citalopram Drug Allergy [address] [place] [address] Repository Medications Current Medications Medication Drug Class(es) Dates Sig (Normalized) Sig (Original) [id number] 200 actuat albuterol 0.09 mg/actuat metered dose [...] in 10 oz of water Orally daily 15 Apr, 2022 Active Multivitamin preparation (6 sources) take 1 [...] 04-10-2022 Episodic Other aftercare (2 sources) Other rodent exterminator (current) drug therapy Onset: 09-03-2021 Resolved: [...] Coding Summaryon 05-30-2024 Coding Summary HTMLBase 64 CpwuyluaMEf6pOl+PGhlYWQ+PE 1WMTDyZ86fuMLlqT1sM2AQMWcP RgicQWQRELoQGpFwzkSmEJ2geR NjZXJu IC8+VP0mXNJaOqkadZMvy8D6pB F9W04dcs9fSYfvuKS4WGEmNeZm speqf2jzyPd9WPuzAltoUxSq RPPhkN62KFA1vK92Xq55kBFosI Wac5vjyFb5QzCiMIHrRSA3iMxg RDhgp9LpLBHjH49vwSTnu1C3 IHBbdJdcvFEoHtEbaRP7wH4iSY paiuvan3tfhunaUlo2wg80vIYv i3T5dCR3C9CympN2EIQliIYz TgnhvEFYdF1uxdweb1dyblpiNl MyMTXzNRj0YBt6ZWCpjOpyOeBm ZG02ZDC5PVMqhoMbQ1VrRXSt eFccVzB1o1U5Vb1WP5OFYsdfV8 VNTUFSWTwvdGQ+MQ22nt22J4Nz KqdhEmc7ZNKfOSD7pOE4hE3r WKEvKMqkx9P4fRK7M0VdkkTwar 9nv4nwEPDlRLnhX88iuAKzs9W9 FOUskQB3CBJriIirPkCcnS16 Oyc+XVVehWvqx3CpXyqtj0ybv0 xhwBw9PiirLHLykgObkSrtEIS8 q6NaNd2qEWGkrOB7lVC4zO2x KwXlFeA4DCmyE560UkLfzKFoHc hpM35gK6CtxCZ+SRQuXed2ARFi yEarHK8tS9EsVEXchrdteUQh sRnvQF2nLDMyencjYOHrkE8kFV LuH0s5PzDaRuH8OKcsF1AgXSTt yendDk90jR2iLdPwExC5VFde L0CcupC2FCXqwBJcJJuqJTG5Z5 3lo3H0ABPzCWYyDBI6aFI5nV0i bGlnbjogbGVmdDsgdmVydGlj HLhkOSgtC428CDTxmLgrNvBjVM luZyBEYXRlOiAgMDkvMTAvMjAy NDwvdGQ+MEIbFRQ3rOngRFMl dQTySVxbYh7ueQpfqZlzPE8fGM TauamiWJIyoM2cDSDlvTWdeArj YO3gAJOwckgzq909OfQqDJK0 BYGbsFJjI4DsbG4sKwQsJMAiUR GuQ3NgiXVhCCefI299FQkkNuY1 BWCpsrAvO3BcACDamFuyTyB8 p3T0Ek5Ns2EzlzjuI0SmcSBmQn FoDeubPWf2E0AqPgflaUO+PC90 ASVyFG80UCm9QJJ8pPdqYKpe WWVrM4NkuZ3hAiScCOYiWCJlFp c+PHRhYmxlIHdpZHRoPScxMDAl KlEudYdrTI7dGu3dNEPdIOHu qYhytMDwGfLdl7otZPJuWZuzBY 9lpAtcZ4EsqCT2GAVgj7e7Dn06 H69eI5AipJN+QZZfdNY2qDR3 cU4aVqKnIoY9RWyyQ237NsPkhX QoSuzrc4cbt7kidJh8PdK3ELKb wqWdpYdqXDC9g5PaCa00C21q IHdpZHRoPSIxNSUiIHZhbGlnbj 1lhF5vXr9+YDNhqFK6pKG9eS3t AvLgLaH5OJvwL750HeVfrHPy Dropo3agb9myxFg7UyPqPHLmrs LpcJvaWHR2o4CjMp98G8UogFou z1BeXfp7ac59eBIwv3Y1qIQ0 C8SnMXRnhlgccOUlrTbgKM7fVZ SiurzwRFOyxA8kIFZiD0u7NeGa QaG8GUyeV0IevoD2ZGSnfVKt LWStoNZUdS5xvznmo7uvynhvIl ZzOPXcURb5SJi8NRPzoEyoXeEy KIH3TaE2ITY8kAMuoH1lyXle hclafL1tZdh+QPZ0oNIwgIAVIX 1lOjwvdGQ+EEBbIJS0dZrgGKqo LQSxoE8wCIGwZ1v6LiMxAiR3 GOtrO3QhioN7ZORktLTzNUMosL JJwN6rucptk3masoreKyJcAIOr HBd0PKs2VWWzbUdoHgPfKFQ1 FxU6AAQ3yXFwaB1bkDcilfoucG 9wOyc+FxxbfOidXEL2GHx5V7Bf Axd2OTIqwEdfWN4atCSoLCjj Ep4kwRfdhYzkLW8zOBTpjntzr0 88XzZrj2odOEDeqRWsATshSGK0 D83cv1O8TPMdGPHtRSR8aRN6 kI5hlJqspqvsjHFdtJmpqsXrwL hxOPfqGYqaZ172NQWsiDqaGsPu JVl0M5UyPux3NAJzgBpdXA0h vZYtNSdpVg1ntNvseIxkPY4eNA Atltsag026ZrRlk1csDZMpxQJi ZDfuIRJ4O99ml5K4GXSgZPCn YJB9eRH3oP3ybCnmhoolmJEioL ipmhTfjFgpHHjcTDfnK249UDDq wHsgAlFrzPi4H2OqTwh6RTCn uJwrLX5ybABmHUthWl1cmUkzqQ jzUN9zPDQjnqphg718SxSsh3em DJCgkHKgTUglYXN9C95fd0U4 LXIlVWNwOJA4oSS2dN6vkCvszs ogbGVmdDsgdmVydGljYWwtYWxp E301PANufCgbErQbwTpfyiYk QDkxNPh8K2JxQhirwFX+PC90YW VwKR97eEZqoVHkt3tyjLk9CwNk PFOnQRH7fFouVAzpc9DsKNWo A93azNItm2C5YKUxmBuexJPcRs KviQL7hS8uSMwburpvf5eamhfa Idzsk3rksh62fF48U89jYEvu FFBkVCEoENQiKHLzhGxdep5wsO 9wIi8+EVZwmYS6cKM0eW8vKHQf VsK9MRfrO991QeWtdQGhZowz n5uwv3eozIh9HfH7IQOdgrKtwQ evZDJ6j4MeSp15B87nSKavDNKd AJOhBMQpRZXabHcyxn0qlB9t Ii8+QESndZP7nRR6jT2fHlLbYj V7CChdX553YeAghAVcVqwbJ20g C1GmoBP+TJZgAmz3HXWeoLae UR4qgCSxFNfmFj9zWDC8ZnHcAn GzOSpkU2DaJBWlfpjihfewjGP7 XDBpSLDphC92Kb4qkYstSHJs vLBEzT3gziekm2mefdcqDlBiVA GzVTx7IGx3ZZAayOwoNkEvSXC8 HrI6GDJ7dAWttZ8wdQpxmvmn rH3cQ4WfQNZihyhcTu63vI6wYp HdNcZ1IDfuAta+Gx2VCYsbD4VF VExZTiBMRUlHSDwvdGQ+PHRk LYQ7jHpdVOlfBMGryY9lGIIxM4 i0GgZfFbT6YNueT8DlXXLcnnwe Hp23jM8uIiFyFcI5DLhsZ8Lv uqP5CCYmkIXkKNhxRCH9K96yc1 Z0QGWeRVOmQHF8fFQ7tC7voYzg bjogbGVmdDsgdmVydGljYWwt BYfnA631KQWiuLbrMuD4SqGzOh V5DFl3J3AoXsg2OYGqkXkvJC7n sBXmDHrpVv5vkNjwjXvdKJ6z VYSqxvrcDIWrlS8nUKRgkAXqtH jrZP9rERCwumxyc910EhKhBYJ0 BGQlkRTjB3WxuY4rVkPbPESg UHFtN8MwvZVdIXliA777CWwcCn D2NKReajBsQ6PcQGZtxFfcVpS6 o9D7Wt6mAKOPCEXpzdvjuTC+ IOYkHCZ1fVstTCymMQDlfR0iST LhZ9q3FsQtElT9WCkuS4NuVNNf hrrfOy30kU2tQnWsOwS7WSmy G1FkcvN5CDGfqMJhORtzUKX5W5 6qj8C4ZJOxPJZzMOA6mFN2cI3w bGlnbjogbGVmdDsgdmVydGlj FZtrZEdaV223YUSdaHcvTrRUZI FMRTwvdGQ+FCYrTBR2hKtgRXoh IVFujH4mVSYvR2h7QaXyAtM6 AIwtR1EtOSVmciimGs94xD8cNq AcTxD8GKvpL7RnahH1WNBraXBl XOupDML3R24nx1Y0JMHrWECm TFG2kDS8gA6raEllvavjjBVweJ xbvpWzjBobIZhoYAwqJ807HLBz qBssWg0NKW68MN89J1UxOsyv dGFibGU+PHRhYmxlIHdpZHRoPS wqVZYqGnVinNjtTP3sCk5mLAQu CLJpaKvxeGRqRyIfa6tcAATq RFutLI3wwDrcH5IugAM6WDTpx0 f4Xa75U26uQ2KmlHS+PGNvbCB3 fWX0uV0yJxOcByA2TWkdH107 FcPyvCJdKxyxi7jif1lqzXv2Tv MlFIIrvfMywEwjWQA6y3BkJe80 C55rMLwqSTFiREIqJLTgSMAz aLtmgr5mbZ6tNk4+VBHkrPR1vO S7aL2kAxPxZhK2IGrwE845YnVd zIAbZzgaW24pM1XecMO+PHRy Roy7XTUnkJcrHF2mfMAxHTnkHu 4eTPF7OzOsJlSlKCyhL3VrUYCw ijshfkdgxGG2RMSnQCSmsE00 Nk1biThrAw6eBJQqDMQ1XGKtjT AwJ2BefR4mFnLgVZQoCTXsY9Rw nUGpJUnnI550WBjcTtI6MOAz mcDoR8OaEUQbsGhnEbQ0j1G4Dy 4NrBvnzIYxBD9aLaDsNMe3E4Gy Jla8RBOcnEwjZC9jfKAdGCxo Yk8lwIfvuDjrYH5eHGTdvmeof2 22RoZlx2vjIJTgsCBrHRlvBHJ5 Z00hj0S0LIXjFQJjLKU9pQO0 dH2gwBbemzkdmZWskCfnbtDlhJ lmGVwuKQybB953RIHkjSfqGtXI Wwc4H5MaLjk3HHYkcMdhUJ3t bPEdRJznMy6anXralRfvLM8rJZ Lelddfi478ZlTrh8ivJTRkcSDf JUqiWHA6C95tn1J6HVSoUKCs TUU5dCZ5bE6stXebaipvuMUzuD hziiFalFufPDonVQbiW668FBFy qQavXf2NQpp9S0YbEop5EUZf wQjbTI0wsPIcOBnkAd3rgKvhmL jlFH4pBTQwjhfoa993DsRsd2oy CICahCEcPLjpPHQ2N99jz3M1 BIDqZAUcRVQ0dVE0xY4psPhwmx ogbGVmdDsgdmVydGljYWwtYWxp D666WETpaMbuSjYpzWRqGmff dGQ+AV46qr02O8DjZfmmEus5HC ObWTK8uWP4gS6cPECvBOkyd3H1 bVE7I4DgyyMpwr0uh0icNSAb ZTo (more content not included)... Normal [facility] Bacteria [Presence] in Urine by AutomatedOrdered By: Andrzej Grace on 05-23-2024 Bacteria Auto Ql (U) 1+ [HPF] High None Seen [facility] Bilirubin Test strip Ql (U)O rdered By: Andrzej Grace on 05-23-2024 Bilirubin Ql (U) Negative Negative [facility] Color of Urine by AutoOrdere d By: Andrzej Grace on 05-23-2024 Color (U) Light-yellow Normal Yellow [facility] Comment on above: Order Comment: Name Collection Type:: Clean-Voided Midstream Performed By: #### A DDONUAPLUS #### [facility] [address] [id number] [place] Crystals.amorphous [Presence ] in Urine by Computer assisted methodOrdered By: Andrzej Ashbykandi on 05-23-2024 Crystals.amorphous Computer assisted Ql (U) 1+ [HPF] [facility] Dipstick and Microscopicon 0 05-23-2024 Amorphous Crystal,Urine 1+ Normal T [facility] Comment on above: Order Comment: Name Collection Type:: Clean-Voided Midstream Performed By: #### A DDONUAPLUS #### [facility] [address] [id number] [place] Bacteria,Urine 1+ High None Seen [facility] Comment on above: Order Comment: Name Collection Type:: Clean-Voided Midstream Performed By: #### A DDONUAPLUS #### [facility] [address] [id number] [place] Bilirubin,Urine Negative Normal Negative [facility] Comment on above: Order Comment: Name Collection Type:: Clean-Voided Midstream Performed By: #### A DDONUAPLUS #### [facility] [address] [id number] [place] Glucose Ql (U) Normal Normal Normal [facility] Comment on above: Order Comment: Name Collection Type:: Clean-Voided Midstream Performed By: #### A DDONUAPLUS #### [facility] [address] [place] [address] [place] Hyaline Casts,Urine None Normal 0-8 [facility] Comment on above: Order Comment: Name Collection Type:: Clean-Voided Midstream Performed By: #### A DDONUAPLUS #### [facility] [address] [place] [address] [place] Mucus,Urine Rare Normal [facility] Comment on above: Order Comment: Name Collection Type:: Clean-Voided Midstream Result Comment: PERF ORMED BY: [place] [address] PATHOLOGIST SPLITTER HEAD SADAF YOUNGBLOOD M.D. Performed By: #### A DDONUAPLUS #### [place] [address] [place] Nitrite,Urine Negative Normal Negative [facility] Comment on above: Order Comment: Name Collection Type:: Clean-Voided Midstream Performed By: #### A DDONUAPLUS #### [place] [address] [place] Occult Blood,Urine Negative Normal Negative [facility] Comment on above: Order Comment: Name Collection Type:: Clean-Voided Midstream Result Comment: PERF ORMED BY: [place] [address] PATHOLOGIST SPLITTER HEAD SADAF YOUNGBLOOD M.D. Performed By: #### A DDONUAPLUS #### [place] [address] [place] Protein,Urine Negative Normal Negative [facility] Comment on above: Order Comment: Name Collection Type:: Clean-Voided Midstream Performed By: #### A DDONUAPLUS #### [place] [address] [place] RBC,Urine 1-2 Normal 0-4 [facility] Comment on above: Order Comment: Name Collection Type:: Clean-Voided Midstream Performed By: #### A DDONUAPLUS #### [place] [address] [place] Specificy [place],Urine 1.013 Normal 1.00 1-1.03 0 [facility] Comment on above: Order Comment: Name Collection Type:: Clean-Voided Midstream Performed By: #### A DDONUAPLUS #### [place] [address] [place] Squamous Epithelial Cell,Urine 10-19 High 0-2 [facility] Comment on above: Order Comment: Name Collection Type:: Clean-Voided Midstream Performed By: #### A DDONUAPLUS #### [address] Urobilinogen,Urine Normal Normal Normal [facility] Comment on above: Order Comment: Name Collection Type:: Clean-Voided Midstream Performed By: #### A DDONUAPLUS #### [address] WBC,Urine 3-4 Normal 0-4 [facility] Comment on above: Order Comment: Name Collection Type:: Clean-Voided Midstream Performed By: #### A DDONUAPLUS #### [address] Epithelial cells.squamous [# /area] in Urine sediment by Automated countOrdered By: Andrzej Grace on 05-23-2024 Epithelial cells.squamous Auto (Urine sed) [#/Area] 10-19 [HPF] High 0-2 [facility] Erythrocytes [#/area] in Uri ne sediment by Automated countOrdered By: Andrzej Grace on 05-23-2024 RBC Auto (Urine sed) [#/Area] 1-2 [HPF] 0-4 [facility] Fibronectinon 05-23-20 Fibronectin Negative Normal Negative [facility] Comment on above: Order Comment: Comme nt patients 22 - 34 6/7 weeks prior to vaginal exam Result Comment: PERF ORMED BY: [place] [address] PATHOLOGIST SPLITTER HEAD SADAF YOUNGBLOOD M.D. Performed By: #### L IPID, B12, FOL, T4F, TSH3, FSH, SWII73GL, CMP, MG, FE and TIBC, SAKINA, CRP #### [facility] [address] [place] [address] fibronectinOrdered By: Andrzej Grace on 05-23-2024 Fibronectin. (Vag fld) [Mass/Vol] Negative Negative [facility] Glucose [Mass/volume] in Uri ne by Test stripOrdered By: Andrzej Grace on 05-23-2024 Glucose Test strip (U) [Mass/Vol] Normal mg/dL Normal [facility] Hemoglobin Test strip Ql (U) Ordered By: Andrzej Grace on 05-23-2024 Hemoglobin Ql (U) Negative Negative [facility] Hyaline casts [#/area] in Ur ine sediment by Automated countOrdered By: Andrzej Grace on 05-23-2024 Hyaline casts Auto (Urine sed) [#/Area] None [LPF] 0-8 [facility] Ketones [Presence] in Urine by Test stripOrdered By: Andrzej Grace on 05-23-2024 Ketones Ql (U) Negative Normal Negative [facility] Comment on above: Order Comment: Name Collection Type:: Clean-Voided Midstream Performed By: #### A DDONUAPLUS #### [facility] [address] [place] [address] [place] Leukocyte esterase [Presence ] in Urine by Test stripOrdered By: Andrzej Grace on 05-23-2024 Leukocyte esterase Test strip Ql (U) Negative Normal Negative [facility] Comment on above: Order Comment: Name Collection Type:: Clean-Voided Midstream Performed By: #### A DDONUAPLUS #### [facility] [address] [place] [address] [place] Leukocytes [#/area] in Urine sediment by Automated countOrdered By: Andrzej Grace on 05-23-2024 WBC Auto (Urine sed) [#/Area] 3-4 [HPF] 0-4 [facility] Mucus [Presence] in Urine by AutomatedOrdered By: Andrzej Grace on 05-23-2024 Mucus Auto Ql (U) Rare [LPF] [facility] Nitrite Test strip Ql (U)Ord ered By: Andrzej Grace on 05-23-2024 Nitrite Ql (U) Negative Negative [facility] Protein Test strip (U) [Mass /Vol]Ordered By: Andrzej Grace on 05-23-2024 Protein (U) [Mass/Vol] Negative Negative [facility] Specific gravity Test strip (U) [Rel density]Ordered By: Andrzej Grace on 05-23-2024 Specific gravity (U) [Rel density] 1.013 1.001-1.03 0 [facility] Urine appearanceOrdered By: Andrzej Grace on 05-23-2024 Appearance (U) Cloudy Critically abnormal Clear [facility] Comment on above: Order Comment: Name Collection Type:: Clean-Voided Midstream Performed By: #### A DDONUAPLUS #### [facility] [address] [id number] [facility] Urobilinogen Test strip (U) [Mass/Vol]Ordered By: Andrzej Grace on 05-23-2024 Urobilinogen (U) [Mass/Vol] Normal mg/dL Normal [facility] pH of Urine by Test stripOrd ered By: Andrzej Grace on 05-23-2024 pH (U) 6.5 [pH] Normal 5.0-9.0 [facility] Comment on above: Order Comment: Name Collection Type:: Clean-Voided Midstream Performed By: #### A DDONUAPLUS #### [facility] [address] [id number] [facility] ED Clinical Summaryon 2023 ED Clinical Summary [facility] ? Urgent Care [address] [place] [address] Clinical Summary PERSON INFORMATION Name: LE ROCHA Age: 23 Years Sex: FEMALE : 2000 MRN: Acct#: Visit Reason: UC - Dental Pain; DENTAL PAIN Arrival: 05/22/2024 13:14:06 Discharge: 05/22/2024 14:17:00 LOS: 000 01:03 Check In: 05/22/2024 13:14:06 Checkout: 05/22/2024 14:17:00 Address: [address] [place] [address] PCP: Raeann Ch MSN UROLOGY TEACHER PROVIDER INFORMATION Provider Role Assigned Unassigned Yon [...] Home PATIENT EDUCATION INFORMATION Instructions: Dental Pain, Wxbw-hn-Vdah; Dental Pain, Fwfp-ry-Ovww Follow-Up: With: Address: When: Raeann Ch MSN UROLOGY TEACHER [address] [place] [address] Within 3 to 5 days [...] Patient/family/caregiver verbalizes understanding of instructions given Comment: [facility] ED Patient Summaryon 024 ED Patient Summary [facility] ? Urgent Care [address] [place] [address] PATIENT DISCHARGE INSTRUCTIONS Patient Information Name: LE ROCHA Age: 23 Years Date of : 2000 Reason For Visit: UC - Dental Pain; DENTAL PAIN Arrival Time: 05/22/2024 13:14:06 Primary Care Physician: Raeann Ch MSN UROLOGY TEACHER Attending Physician: Yon Templeton CNP Comment: Patient Education With: Address: When: Raeann Ch MSN UROLOGY TEACHER [address] [place] [address] Within 3 to 5 days [...] these instructions at home: Medicines ? Take soam-jna-bktncwv and prescription medicines only as told by [...] to the area. Brushing your teeth ? [place] your teeth twice a day using a [...] when you eat or drink. ? Take lexd-dij-qeicsuc and prescription medicines only as told by your dentist. ? Watch your dental pain for any changes. Let your dentist know if symptoms get worse. This information is not intended to replace advice given to you by your health care provider. Make sure you discuss any questions you have with your health care provider. Document Revised: 06/11/2021 Document Reviewed: 06/11/2021 voxapp Patient Education ? 2023 [employer]. Dental Pain Dental pain is often a sign that something is wrong with your teeth or gums. You can also mandel (more content not included)... Normal [facility] Recordon 024 Urgent Care Record [facility] ? Urgent Care [address] [place] [address] PATIENT DISCHARGE INSTRUCTIONS Patient Information Name: LE ROCHA Age: 23 Years Date of : 2000 Reason For Visit: UC - Dental Pain; DENTAL PAIN Arrival Time: 05/22/2024 13:14:06 Primary Care Physician: Raeann Ch MSN UROLOGY TEACHER Attending Physician: Yon Templeton CNP Comment: Visit Diagnosis: Diagnoses This Visit Dental infection (K04.7) Impacted tooth (K01.1) UC - Dental Pain ([id number]) If you received any narcotics, sedation, or [...] any legal documents With: Address: When: Raeann Ch MSN UROLOGY TEACHER [address] [place] [address] Medication Information: The exam and treatment you received today in the [facility] were for an urgent problem and are not intended as complete care. It is important for you to follow up with a doctor, nurse practitioner, or physician?s administrative services assistant for ongoing care. If your symptoms [...] reach you if necessary. [facility] has provided you with a complete list of medications post discharge. Please inform your windows systems admin/provider of your visit and for further instruction on these medications. Any specific questions regarding your chronic medications and dosages should be discussed with your primary care physician(s) and/or pharmacist. New Medications [facility], [address], [place] [id number], [phone] amoxicillin (amoxicillin 500 mg oral capsule) 1 [...] these instructions at home: Medicines ? Take cixx-jvi-zwrsrqt and prescription medicines only as told by your dentist. ? If you were prescribed an antibiotic medicine, take it as told by your dentist. Do not stop taking it even if you start to feel better. Eating and drinking D (more content not included)... Normal [facility] Quantiferon-TB Plus (Client Incubated)on 04-17-2024 Gamma interferon background IA Qn (Bld) 3.22 International_Unit/mL Invalid Interpretation Code [facility] Comment on above: Performed By: #### 1 [id number] #### [facility] [address] [place] [address] M. tuberculosis stim IFN-g by CD4+ CD8+ T-cells corrected for background Qn (Bld) 0.00 International_Unit/mL Invalid Interpretation Code [facility] Comment on above: Performed By: #### 1 [id number] #### [facility] [address] [place] [id number] M. tuberculosis stim IFN-g by CD4+ T-cells corrected for background Qn (Bld) 0.00 International_Unit/mL Invalid Interpretation Code [facility] Comment on above: Performed By: #### 1 [id number] #### [facility] [address] [place] [address] [id number] M. tuberculosis stim IFN-g Ql (Bld) [Interp] Negative Invalid Interpretation Code Negative [facility] Comment on above: Result Comment: No r [...] interferon gamma. Chemiluminescence immunoassay methodology Performed at: [facility] [id number] PhD Calvin Milner Performed By: #### 1 [id number] #### [facility] [address] [place] [address] [id number] Mitogen stimulated gamma interferon corrected for background Qn (Bld) >10.00 Invalid Interpretation Code [facility] Comment on above: Performed By: #### 1 [id number] #### [facility] [address] [place] [address] Service comment (Unsp spec) [Interp] Comment Invalid Interpretation Code [facility] Comment on above: Result Comment: Bairon tiFERON-TB [...] for the test. Performed By: #### 1 [id number] #### [facility] [address] [place] [address] Hep Bs Abon 04-15-2024 HBV surface Ab Ql (S) Reactive Invalid Interpretation Code [facility] Comment on above: Result Comment: Non Reactive: Inconsistent with immunity, less than 10 mIU/mL Reactive: Consistent with immunity, greater than 9.9 mIU/mL Performed at: [facility] [id number] PhD Calvin Milner Performed By: #### 2 [id number] #### [facility] [address] [id number] Measles/Mumps/Rubella Immuni tyon 04-15-2024 MeV IgG IA Qn (S) 26.7 A unit/mL Invalid Interpretation Code Immune >16.4 [facility] Comment on above: Result Comment: Nega tive <13.5 Equivocal 13.5 - 16.4 Positive >16.4 Presence of antibodies to Rubeola is presumptive evidence of immunity except when acute infection is suspected. Performed By: #### 3 [id number] #### [facility] [address] [id number] MuV IgG IA Qn (S) 209.0 A unit/mL Invalid Interpretation Code Immune >10.9 [facility] Comment on above: Result Comment: Nega tive <9.0 Equivocal 9.0 - 10.9 Positive >10.9 A positive result generally indicates past exposure to Mumps virus or previous vaccination. Performed at: [facility] [address], [place] [id number] PhD Calvin Milner Performed By: #### 3 [id number] #### [facility] [address] [place] [address] Rubella virus IgG Qn (S) 4.08 [IU]/mL Invalid Interpretation Code Immune >0.99 [facility] Comment on above: Result Comment: Non- immune <0.90 Equivocal 0.90 - 0.99 Immune >0.99 Performed By: #### 3 [id number] #### [facility] [address] [place] [address] Varic IgGon 04-15-2024 VZV IgG IA Qn (S) 514 Invalid Interpretation Code Immune >165 [facility] Comment on above: Result Comment: Nega tive <135 Equivocal 135 - 165 Positive >165 A positive result generally indicates exposure to the pathogen or administration of specific immunoglobulins, but it is not indication of active infection or stage of disease. Performed at: [facility] [address], [place] [id number] PhD Calvin Milner Performed By: #### 1 [id number] #### [facility] [address] [place] [address] BioFire Detectedon BioFire Detected Detected Critically abnormal Not Detecte [facility] Comment on above: Result Comment: This is a duplicate RP2.1 COVID (PCR) result to be used for statistical tracking purpose only. PERFORMED BY: [place] [address] PATHOLOGIST SPLITTER HEAD SADAF YOUNGBLOOD M.D. Performed By: #### L IPID, B12, FOL, T4F, TSH3, FSH, [id number], CMP, MG, FE and TIBC, SAKINA, CRP #### [address] COVID-19 Detected/Not Detect edOrdered By: Ginny Cuello on 03-30-2024 SARS-CoV-2 (COVID-19) RNA KYLAH+non-probe Ql (Nph) Detected Abnormal Not Detecte [facility] Comment on above: This is [...] A H3 Blank Space -- PERFORMED BY: [place] [id number] PATHOLOGIST SPLITTER HEAD SADAF YOUNGBLOOD M.D. Normal [facility] Comment on above: Performed By: #### L IPID, B12, FOL, T4F, TSH3, FSH, [id number], CMP, MG, FE and TIBC, SAKINA, CRP #### [facility] [address] [place] [id number] [facility] Respiratory pathogens DNA an d RNA panel - Nasopharynx by KYLAH with non-probe detectionOrdered By: Ginny Cuello on 03-30-2024 Respiratory pathogens DNA and RNA panel KYLAH+non-probe (Nph) [facility] ED Clinical Summaryon 2022 ED Clinical Summary [facility] Urgent Care [address] [place], [place] [id number] Clinical Summary PERSON INFORMATION Name: LE ROCHA Age: 23 Years Sex: FEMALE : 2000 MRN: Acct#: Visit Reason: Medical screening exam; OTTERBEIN PHYSICAL Arrival: 09/02/2023 11:23:52 Discharge: 09/02/2023 12:23:00 LOS: 000 01:00 Check In: 09/02/2023 11:23:52 Checkout: 09/02/2023 12:23:00 Address: [address] [place] [id number] PCP: Provider, Unlisted PROVIDER INFORMATION Provider Role [...] Patient/family/caregiver verbalizes understanding of instructions given Comment: [facility] ED Patient Summaryon 023 ED Patient Summary [facility] Ur[facility] Care [address] [place] [address] PATIENT DISCHARGE INSTRUCTIONS Patient Information Name: LE ROCHA Age: 23 Years Date of : 2000 Reason For Visit: Medical screening exam; OTTERBEIN PHYSICAL Arrival Time: 09/02/2023 11:23:52 Primary Care Physician: Provider, Unlisted Attending Physician: Tyler Armstrong PA-C Comment: Patient Education Medication Information: The exam and treatment you received today in the [facility] Emergency Department were for an urgent problem and are not intended as complete care. It is important for you to follow up with a doctor, nurse practitioner, or physician?s administrative services assistant for ongoing care. If your symptoms [...] so we can reach you if necessary. [facility] has provided you with a complete list of medications post discharge. Please inform your windows systems admin/provider of your visit and for further instruction on these medications. Any specific questions regarding your chronic medications and dosages should be discussed with your primary care physician(s) and/or pharmacist. Visit Information Visit Diagnosis: Diagnoses This Visit Medical screening exam ([id number]) If you received any narcotics, sedation, or [...] documents Reason for Visit: Medical Screening Exam. Millen Physical. Allergies: Substance Reaction Symptoms Type Comments [...] for Disease Control and Prevention May 2014 [facility] Urgent Care Note- Provideron 09-02-2023 Urgent Care Note- Provider Patient: LE ROCHA Age: 23 years Sex: FEMALE : 2000 Associated Diagnoses: None Author: Tyler Armstrong PA-C Basic Information Additional information: Chief Complaint from Nursing Triage Note : Chief Complaint 09/02/2023 11:54 EST Chief Complaint Medical Screening Exam. Millen Physical. . History of Present Illness Patient [...] 09/02/2023 12:03 EST] Tyler Armstrong PA-C Normal [facility] Recordon 023 Urgent Care Record [facility] Urgent Care [address] [place] [address] PATIENT DISCHARGE INSTRUCTIONS Patient Information Name: LE ROCHA Age: 23 Years Date of : 2000 Reason For Visit: Medical screening exam; JULIET PHYSICAL Arrival Time: 09/02/2023 11:23:52 Primary Care Physician: Provider, Unlisted Attending Physician: Tyler Armstrong PA-C Comment: Visit Diagnosis: Diagnoses This Visit Medical screening exam ([id number]) If you received any narcotics, sedation, or [...] and treatment you received today in the [facility] were for an urgent problem and are not intended as complete care. It is important for you to follow up with a doctor, nurse practitioner, or physician?s administrative services assistant for ongoing care. If your symptoms [...] so we can reach you if necessary. [facility] has provided you with a complete list of medications post discharge. Please inform your windows systems admin/provider of your visit and for further instruction [...] Disease Control and Prevention May 2014 Normal [facility] Choriogonadotropin.beta subu nit [Units/volume] in Serum or PlasmaOrdered By: Raeann Ch on 08-19-2023 HCG.beta subunit Qn 0.75 m[IU]/mL [facility] Comment on above: Approximate Approxim ate hCG Gestational Age Range (mIU/ml) (weeks)0.2-1 5-50 1-2 50-500 2-3 100-5,000 3-4 500-10,000 4-5 1,000-50,000 5-6 10,000-100,000 6-8 15,000-200,000 8-12 10,000-100,000 HCG.beta subunit Qn Negative [facility] HCG,Qualitative Serumon 07-23 HCG,Qualitative Serum Negative Normal [facility] Comment on above: Result Comment: PERF ORMED BY: [place] [address] PATHOLOGIST SPLITTER HEAD SADAF YOUNGBLOOD M.D. Performed By: #### L IPID, B12, FOL, T4F, TSH3, FSH, [id number], CMP, MG, FE and TIBC, SAKINA, CRP #### [facility] [address] [place] [address] [place] HCG,Quantitativeon HCG,Quantitative 0.75 m[iU]/mL Normal [facility] Comment on above: Result Comment: Appr oximate Approximate hCG Gestational Age Range (mIU/ml) (weeks) 0.2-1 5-50 1-2 50-500 2-3 100-5,000 3-4 500-10,000 4-5 1,000-50,000 5-6 10,000-100,000 6-8 15,000-200,000 8-12 10,000-100,000 Performed By: #### L IPID, B12, FOL, T4F, TSH3, FSH, [id number], CMP, MG, FE and TIBC, SAKINA, CRP #### [facility] [address] HAND RIGHT WO IV CONTRAST [...] Detected Not detected Normal Not Detecte [facility] Comment on above: Result Comment: This is a duplicate RP2.1 COVID (PCR) result to be used for statistical tracking purpose only. PERFORMED BY: [place] [address] PATHOLOGIST SPLITTER HEAD SADAF YOUNGBLOOD M.D. Performed By: #### L IPID, B12, FOL, T4F, TSH3, FSH, [id number], CMP, MG, FE and TIBC, SAKINA, CRP #### [facility] [address] [place] [address] COVID-19 Detected/Not Detect edOrdered By: Raeann Ch on 08-10-2023 SARS-CoV-2 (COVID-19) RNA KYLAH+non-probe Ql (Nph) Not detected Not Detecte [facility] Comment on above: This is [...] A H3 Blank Space -- PERFORMED BY: [place] [address] PATHOLOGIST SPLITTER HEAD SADAF YOUNGBLOOD M.D. Normal [facility] Comment on above: Performed By: #### L IPID, B12, FOL, T4F, TSH3, FSH, [id number], CMP, MG, FE and TIBC, SAKINA, CRP #### [address] Respiratory pathogens DNA an d RNA panel - Nasopharynx by KYLAH with non-probe detectionOrdered By: Raeann Ch on 08-10-2023 Respiratory pathogens DNA and RNA panel KYLAH+non-probe (Nph) [facility] XR HAND 3+ VIEWS RIGHTon XR HAND 3+ VIEWS RIGHT EXAMINATION: XR H AND 3+ VIEWS RIGHT HISTORY: Hand pain after injury COMPARISONS: None available TECHNIQUE: 3 views of the hand obtained. FINDINGS: No acute fracture or dislocation. Joint spaces are preserved. Soft tissues are within normal limits. IMPRESSION: No acute osseous abnormality. ELECTRONICALLY SIGNED BY: Rcikey Sellers, DO Normal Not Available Alanine aminotransferase [En zymatic activity/volume] in Serum or PlasmaOrdered By: Raeann Ch on 07-20-2023 ALT [Catalytic activity/Vol] 10 U/L Normal 7-52 [facility] Comment on above: Performed By: #### L IPID, B12, FOL, T4F, TSH3, FSH, [id number], CMP, MG, FE and TIBC, SAKINA, CRP #### [facility] [address] Albumin [Mass/volume] in Ser um or Plasma by Bromocresol green (BCG) dye binding methoOrdered By: Raeann Ch on 07-20-2023 Albumin BCG dye [Mass/Vol] 4.5 g/dL 3.5-5.7 [facility] Alkaline phosphatase [Enzyma tic activity/volume] in Serum or PlasmaOrdered By: Raeann Ch on 07-20-2023 ALP [Catalytic activity/Vol] 63 U/L Normal 34-104 [facility] Comment on above: Performed By: #### L IPID, B12, FOL, T4F, TSH3, FSH, [id number], CMP, MG, FE and TIBC, SAKINA, CRP #### [place] [address] [place] Aspartate aminotransferase [ Enzymatic activity/volume] in Serum or PlasmaOrdered By: Raeann Ch on 07-20-2023 AST [Catalytic activity/Vol] 16 U/L Normal 13-39 [facility] Comment on above: Performed By: #### L IPID, B12, FOL, T4F, TSH3, FSH, [id number], CMP, MG, FE and TIBC, SAKINA, CRP #### [address] Automated basophil %Ordered By: Raeann Ch on 07-20-2023 Basophils/100 WBC (Bld) 0.3 % Normal . [facility] Comment on above: Performed By: #### L IPID, B12, FOL, T4F, TSH3, FSH, [id number], CMP, MG, FE and TIBC, SAKINA, CRP #### [address] Automated basophil countOrde red By: Raeann Ch on 07-20-2023 Basophils (Bld) [#/Vol] 0.0 10*3/uL Normal 0.0-0.2 [facility] Comment on above: Performed By: #### L IPID, B12, FOL, T4F, TSH3, FSH, [id number], CMP, MG, FE and TIBC, SAKINA, CRP #### [address] Automated blood monocyte cou ntOrdered By: Raeann Ch on 07-20-2023 Monocytes (Bld) [#/Vol] 0.3 10*3/uL Normal 0.0-0.8 [facility] Comment on above: Performed By: #### L IPID, B12, FOL, T4F, TSH3, FSH, [id number], CMP, MG, FE and TIBC, SAKINA, CRP #### [address] Automated eosinophil %Ordere d By: Raeann Ch on 07-20-2023 Eosinophils/100 WBC (Bld) 0.9 % Normal . [facility] Comment on above: Performed By: #### L IPID, B12, FOL, T4F, TSH3, FSH, [id number], CMP, MG, FE and TIBC, SAKINA, CRP #### [address] Automated eosinophil countOr dered By: Raeann Ch on 07-20-2023 Eosinophils (Bld) [#/Vol] 0.1 10*3/uL Normal 0.0-0.45 [facility] Comment on above: Performed By: #### L IPID, B12, FOL, T4F, TSH3, FSH, [id number], CMP, MG, FE and TIBC, SAKINA, CRP #### [address] Automated monocyte %Ordered By: Raeann Ch on 07-20-2023 Monocytes/100 WBC (Bld) 4.9 % Normal . [facility] Comment on above: Performed By: #### L IPID, B12, FOL, T4F, TSH3, FSH, [id number], CMP, MG, FE and TIBC, SAKINA, CRP #### [facility] [address] Automated neutrophil %Ordere d By: Raeann Ch on 07-20-2023 Neutrophils/100 WBC (Bld) 70.0 % Normal . [facility] Comment on above: Performed By: #### L IPID, B12, FOL, T4F, TSH3, FSH, [id number], CMP, MG, FE and TIBC, SAKINA, CRP #### [facility] [address] Bilirubin.total [Mass/volume ] in Serum or PlasmaOrdered By: Raeann Ch on 07-20-2023 Bilirubin [Mass/Vol] 1.7 mg/dL High 0.3-1.0 [facility] Comment on above: Samples from patient s [...] L IPID, B12, FOL, T4F, TSH3, FSH, [id number], CMP, MG, FE and TIBC, SAKINA, CRP #### [facility] [address] [place] [address] [place] C reactive protein [Mass/vol ume] in Serum or PlasmaOrdered By: Raeann Ch on 07-20-2023 CRP [Mass/Vol] 0.8 mg/dL 0.0-0.5 [facility] C-Reactive Proteinon 023 C-Reactive Protein 0.8 mg/dL High 0.0-0.5 [facility] Comment on above: Performed By: #### L IPID, B12, FOL, T4F, TSH3, FSH, [id number], CMP, MG, FE and TIBC, SAKINA, CRP #### [facility] [address] Calcium [Mass/volume] in Ser um or PlasmaOrdered By: Raeann Ch on 07-20-2023 Calcium [Mass/Vol] 9.6 mg/dL Normal 8.6-10.3 [facility] Comment on above: Performed By: #### L IPID, B12, FOL, T4F, TSH3, FSH, [id number], CMP, MG, FE and TIBC, SAKINA, CRP #### [facility] [address] Carbon dioxide, total [Moles /volume] in Serum or PlasmaOrdered By: Raeann Ch on 07-20-2023 CO2 [Moles/Vol] 26.8 mmol/L Normal 21.0-31.0 [facility] Comment on above: Performed By: #### L IPID, B12, FOL, T4F, TSH3, FSH, [id number], CMP, MG, FE and TIBC, SAKINA, CRP #### [facility] [address] [place] [address] [place] Chloride [Moles/volume] in S ulises or PlasmaOrdered By: Raeann Ch on 07-20-2023 Chloride [Moles/Vol] 106 mmol/L Normal 98-107 [facility] Comment on above: Performed By: #### L IPID, B12, FOL, T4F, TSH3, FSH, [id number], CMP, MG, FE and TIBC, SAKINA, CRP #### [facility] [address] Cholesterol [Mass/volume] in Serum or PlasmaOrdered [...] L IPID, B12, FOL, T4F, TSH3, FSH, [id number], CMP, MG, FE and TIBC, SAKINA, CRP #### [facility] [address] Cholesterol in LDL Calc [Mas s/Vol]Ordered By: Raeann hC on 07-20-2023 Cholesterol in LDL [Mass/Vol] 86 mg/dL 0-100 [facility] Comment on above: LDL ATP III CLASSIFI CATIONLDL less than 100 mg/dL OptimalLDL 100-129 mg/dL Near or above optimalLDL 130-159 mg/dL Borderline highLDL 160-189 mg/dL HighLDL greater than 189 mg/dL Very high Cholesterol in VLDL Calc [Ma ss/Vol]Ordered By: Raeann Ch on 07-20-2023 Cholesterol in VLDL [Mass/Vol] 17 mg/dL [facility] Complete Blood Count Auto Di ffon 07-20-2023 Mean Corpuscular HGB Conc 33.8 g/dL Normal 32.0-35.0 [facility] Comment on above: Performed By: #### L IPID, B12, FOL, T4F, TSH3, FSH, [id number], CMP, MG, FE and TIBC, SAKINA, CRP #### [facility] [address] NRBC% 0.1 /100{WBC} Normal 0-0.5 [facility] Comment on above: Performed By: #### L IPID, B12, FOL, T4F, TSH3, FSH, [id number], CMP, MG, FE and TIBC, SAKINA, CRP #### [facility] [address] Comprehensive Metabolic Pane maikol 07-20-2023 Albumin [Mass/Vol] 4.5 g/dL Normal 3.5-5.7 [facility] Comment on above: Performed By: #### L IPID, B12, FOL, T4F, TSH3, FSH, [id number], CMP, MG, FE and TIBC, SAKINA, CRP #### [facility] [address] GFR/1.73 sq M.predicted MDRD (S/P/Bld) [Vol rate/Area] mL/min/{1.73_m2} Normal [facility] Comment on above: Performed By: #### L IPID, B12, FOL, T4F, TSH3, FSH, [id number], CMP, MG, FE and TIBC, SAKINA, CRP #### [address] Creatinine [Mass/volume] in Serum or PlasmaOrdered By: Raeann Ch on 07-20-2023 Creatinine [Mass/Vol] 0.70 mg/dL Normal 0.60-1.20 [facility] Comment on above: Performed By: #### L IPID, B12, FOL, T4F, TSH3, FSH, [id number], CMP, MG, FE and TIBC, SAKINA, CRP #### [address] Erythrocyte Sedimentation Ra nargis 07-20-2023 ESR (Bld) [Velocity] 15 mm/h Normal 0-19 [facility] Comment on above: Result Comment: PERF ORMED BY: [place] [address] PATHOLOGIST SPLITTER HEAD SADAF YOUNGBLOOD M.D. Performed By: #### L IPID, B12, FOL, T4F, TSH3, FSH, [id number], CMP, MG, FE and TIBC, SAKINA, CRP #### [address] Erythrocyte distribution wid th [Ratio] by Automated countOrdered By: Raeann Ch on 07-20-2023 Erythrocyte distribution width (RBC) [Ratio] 12.3 % Normal 11.9-15.3 [facility] Comment on above: Performed By: #### L IPID, B12, FOL, T4F, TSH3, FSH, [id number], CMP, MG, FE and TIBC, SAKINA, CRP #### [address] Erythrocyte sedimentation ra te by Photometric methodOrdered By: Raeann Ch on 07-20-2023 ESR Photometric method (Bld) [Velocity] 15 mm/hr 0-19 [facility] Erythrocytes [#/volume] in B lood by Automated countOrdered By: Raeann Ch on 07-20-2023 RBC (Bld) [#/Vol] 4.11 10*6/uL Normal 3.60-5.00 [facility] Comment on above: Performed By: #### L IPID, B12, FOL, T4F, TSH3, FSH, [id number], CMP, MG, FE and TIBC, SAKINA, CRP #### [facility] [address] [place] [id number] [facility] Estradiolon 07-20-2023 Estradiol 126.0 pg/mL Normal . [facility] Comment on above: Result Comment: Adul t Female: Follicular phase 12.5 - 166.0 Ovulation phase 85.8 - 498.0 Luteal phase 43.8 - 211.0 Postmenopausal <6.0 - 54.7 1st trimester 215.0 - >4300.0 Heather ECLIA methodology PERFORMED BY: [place] [address] PATHOLOGIST SPLITTER HEAD SADAF YOUNGBLOOD M.D. Performed By: #### L IPID, B12, FOL, T4F, TSH3, FSH, [id number], CMP, MG, FE and TIBC, SAKINA, CRP #### [facility] [address] [place] [id number] [facility] Ferritin [Mass/volume] in Se rum or PlasmaOrdered By: Raeann Ch on 07-20-2023 Ferritin [Mass/Vol] 20.3 ng/mL Normal 11.0-306.8 [facility] Comment on above: Performed By: #### L IPID, B12, FOL, T4F, TSH3, FSH, [id number], CMP, MG, FE and TIBC, SAKINA, CRP #### [facility] [address] [place] [address] [facility] Folateon 07-20-2023 Folate 10.4 ng/mL Normal >5.9 [facility] Comment on above: Result Comment: Yulia te reference range: >5.9 ng/ml The WHO technical consultation on folate and vitamin b12 deficiencies has determined that folate concentrations less than 4 ng/ml are considered deficient. Performed By: #### L IPID, B12, FOL, T4F, TSH3, FSH, [id number], CMP, MG, FE and TIBC, SAKINA, CRP #### [facility] [address] [place] [id number] [facility] Folate [Mass/volume] in Seru m or PlasmaOrdered By: Raeann Ch on 07-20-2023 Folate [Mass/Vol] 10.4 ng/mL >5.9 [facility] Comment on above: Folate reference ran ge: >5.9 ng/mlThe WHO technical consultation on folate and vitamin [id number] has determined that folate concentrations lessthan 4 ng/ml are considered deficient. Follicle Stimulating Hormone on 07-20-2023 Follicle Stimulating Hormone 2.8 m[iU]/mL Normal [facility] Comment on above: Result Comment: FEMA LE NORMALS (PREMENOPAUSE) MID-FOLLICULAR PHASE: 3.9-8.8 mIU/mL MID-CYCLE PEAK: 4.5-22.5 mIU/mL MID-LUTEAL PHASE: 1.8-5.1 mIU/mL FEMALE NORMALS (POSTMENOPAUSE): 16.7-113.6 mIU/mL MALE NORMALS: 1.3-19.3 mIU/mL Performed By: #### L IPID, B12, FOL, T4F, TSH3, FSH, [id number], CMP, MG, FE and TIBC, SAKINA, CRP #### [facility] [address] [place] [address] [facility] Follitropin [Units/volume] i n Serum or PlasmaOrdered By: Raeann Ch on 07-20-2023 Follitropin Qn 2.8 m[IU]/mL [facility] Comment on above: FEMALE NORMALS (FLOWER ENOPAUSE) MID-FOLLICULAR PHASE: 3.9-8.8 mIU/mL MID-CYCLE PEAK: 4.5-22.5 mIU/mL MID-LUTEAL PHASE: 1.8-5.1 mIU/mLFEMALE NORMALS (POSTMENOPAUSE): 16.7-113.6 mIU/mLMALE NORMALS: 1.3-19.3 mIU/mL Free testosterone measuremen t by LC-MS/MSOrdered By: Raeann Ch on 07-20-2023 Testosterone Free [Mass/Vol] 1.5 pg/mL 0.0-4.2 [facility] Comment on above: Performed at: - [facility] [address] [id number] Director: Alf Simpson PhD, Phone: [phone] at: - [facility] [address] [id number] Director: Jayne Mann MD, Phone: [phone] Glucose [Mass/volume] in Ser um or PlasmaOrdered By: Raeann Ch on 07-20-2023 Glucose [Mass/Vol] 76 mg/dL Normal 70-100 [facility] Comment on above: ADA recommended refe rence rangeRandom Glucose Reference Range is dependent on time and content of last meal. Glucose of more than 200 mg/dL in a nonstressed, ambulatory subject supports the diagnosis of Diabetes Mellitus. Result Comment: Lawrence om Glucose Reference Range is dependent on time and content of last meal. Glucose of more than 200 mg/dL in a nonstressed, ambulatory subject supports the diagnosis of Diabetes Mellitus. ADA recommended reference range Performed By: #### L IPID, B12, FOL, T4F, TSH3, FSH, [id number], CMP, MG, FE and TIBC, SAKINA, CRP #### [facility] [address] Hematocrit [Volume Fraction] of Blood by Automated countOrdered By: Raeann Ch on 07-20-2023 Hematocrit (Bld) [Volume fraction] 37.1 % Normal 34.0-46.4 [facility] Comment on above: Performed By: #### L IPID, B12, FOL, T4F, TSH3, FSH, [id number], CMP, MG, FE and TIBC, SAKINA, CRP #### [facility] [address] Hemoglobin [Mass/volume] in BloodOrdered By: Raeann Ch on 07-20-2023 Hemoglobin (Bld) [Mass/Vol] 12.5 g/dL Normal 11.8-15.4 [facility] Comment on above: Performed By: #### L IPID, B12, FOL, T4F, TSH3, FSH, [id number], CMP, MG, FE and TIBC, SAKINA, CRP #### [address] Insulinon 07-20-2023 Insulin 8.2 u[iU]/mL Normal 2.6-24.9 [facility] Comment on above: Result Comment: Perf ormed at: [facility] [id number] Phonograph Mechanic: Alf Simpson PhD, Phone: [phone] Performed By: #### L IPID, B12, FOL, T4F, TSH3, FSH, [id number], CMP, MG, FE and TIBC, SAKINA, CRP #### [address] Iron [Mass/volume] in Serum or PlasmaOrdered By: Raeann Ch on 07-20-2023 Iron [Mass/Vol] 122 ug/dL Normal 50-212 [facility] Comment on above: Performed By: #### L IPID, B12, FOL, T4F, TSH3, FSH, [id number], CMP, MG, FE and TIBC, SAKINA, CRP #### [address] Iron and TIBC Profileon 06-22 % Iron Saturation 28.6 % Normal 20-50 [facility] Comment on above: Performed By: #### L IPID, B12, FOL, T4F, TSH3, FSH, [id number], CMP, MG, FE and TIBC, SAKINA, CRP #### [address] Total Iron Binding Capacity 427 ug/dL Normal 255-450 [facility] Comment on above: Performed By: #### L IPID, B12, FOL, T4F, TSH3, FSH, [id number], CMP, MG, FE and TIBC, SAKINA, CRP #### [address] Iron binding capacity [Mass/ volume] in Serum or PlasmaOrdered By: Raeann Ch on 10-31-2023 Iron binding capacity [Mass/Vol] 427 ug/dL 255-450 [facility] Iron saturation [Mass Fracti on] in Serum or PlasmaOrdered By: Raeann Ch on 07-20-2023 Iron saturation [Mass fraction] 28.6 % 20-50 [facility] Leukocytes [#/volume] correc paulie for nucleated erythrocytes in Blood by Automated counOrdered By: Raeann Ch on 07-20-2023 WBC corrected for nucl RBC Auto (Bld) [#/Vol] 6.7 10*3/uL 3.8-11.6 [facility] Leukocytes [#/volume] in Blo od by Automated countOrdered By: Raeann Ch on 07-20-2023 WBC (Bld) [#/Vol] 6.7 10*3/uL Normal 3.8-11.6 [facility] Comment on above: Performed By: #### L IPID, B12, FOL, T4F, TSH3, FSH, [id number], CMP, MG, FE and TIBC, SAKINA, CRP #### [facility] [address] Lipid Panelon 07-20-2023 LDL Cholesterol,Calculated 86 mg/dL Normal 0-100 [facility] Comment on above: Result Comment: LDL ATP III CLASSIFICATION LDL less than 100 mg/dL Optimal LDL 100-129 mg/dL Near or above optimal LDL 130-159 mg/dL Borderline high LDL 160-189 mg/dL High LDL greater than 189 mg/dL Very high Performed By: #### L IPID, B12, FOL, T4F, TSH3, FSH, [id number], CMP, MG, FE and TIBC, SAKINA, CRP #### [facility] [address] Triglyceride w/Reflex 85 mg/dL Normal 0-149 [facility] Comment on above: Result Comment: TRIG ATP III CLASSIFICATION TRIG less than 150 mg/dL Normal TRIG 150-199 mg/dL Borderline high TRIG 200-500 mg/dL High TRIG greater than 500 mg/dL Very high Standard traceable to the Center for Disease Conrtrol and Prevention (CDC) test method. Performed By: #### L IPID, B12, FOL, T4F, TSH3, FSH, [id number], CMP, MG, FE and TIBC, SAKINA, CRP #### [address] VLDL CHOLESTEROL 17 mg/dL Normal [facility] Comment on above: Performed By: #### L IPID, B12, FOL, T4F, TSH3, FSH, [id number], CMP, MG, FE and TIBC, SAKINA, CRP #### [address] Luteinizing Hormoneon 2022 Luteinizing Hormone 5.5 m[iU]/mL Normal . [facility] Comment on above: Result Comment: Adul t Female: Follicular phase 2.4 - 12.6 Ovulation phase 14.0 - 95.6 Luteal phase 1.0 - 11.4 Postmenopausal 7.7 - 58.5 Performed By: #### L IPID, B12, FOL, T4F, TSH3, FSH, [id number], CMP, MG, FE and TIBC, SAKINA, CRP #### [address] Lymphocytes [#/volume] in Bl ood by Automated countOrdered By: Raeann Ch on 07-20-2023 Lymphocytes (Bld) [#/Vol] 1.6 10*3/uL Normal 1.00-4.8 [facility] Comment on above: Performed By: #### L IPID, B12, FOL, T4F, TSH3, FSH, [id number], CMP, MG, FE and TIBC, SAKINA, CRP #### [address] Lymphocytes/100 leukocytes i n Blood by Automated countOrdered By: Raeann Ch on 07-20-2023 Lymphocytes/100 WBC (Bld) 23.9 % Normal . [facility] Comment on above: Performed By: #### L IPID, B12, FOL, T4F, TSH3, FSH, [id number], CMP, MG, FE and TIBC, SAKINA, CRP #### [address] MCH [Entitic mass] by Automa paulie countOrdered By: Raeann Ch on 07-20-2023 MCH (RBC) [Entitic mass] 30.5 pg Normal 24.7-34.3 [facility] Comment on above: Performed By: #### L IPID, B12, FOL, T4F, TSH3, FSH, [id number], CMP, MG, FE and TIBC, SAKINA, CRP #### [address] MCHC Auto (RBC) [Mass/Vol]Or dered By: Raeann Ch on 07-20-2023 MCHC (RBC) [Mass/Vol] 33.8 g/dL 32.0-35.0 [facility] MCV [Entitic volume] by Auto mated countOrdered By: Raeann Jing on 07-20-2023 MCV (RBC) [Entitic vol] 90.1 fL Normal 80-100 [facility] Comment on above: Performed By: #### L IPID, B12, FOL, T4F, TSH3, FSH, [id number], CMP, MG, FE and TIBC, SAKINA, CRP #### [address] Magnesium [Mass/volume] in S ulises or PlasmaOrdered By: Raeann Jing on 07-20-2023 Magnesium [Mass/Vol] 1.9 mg/dL Normal 1.9-2.7 [facility] Comment on above: Performed By: #### L IPID, B12, FOL, T4F, TSH3, FSH, [id number], CMP, MG, FE and TIBC, SAKINA, CRP #### [address] Neutrophils [#/volume] in Bl ood by Automated countOrdered By: Raeann Ch on 07-20-2023 Neutrophils (Bld) [#/Vol] 4.7 10*3/uL Normal 1.8-7.7 [facility] Comment on above: Performed By: #### L IPID, B12, FOL, T4F, TSH3, FSH, [id number], CMP, MG, FE and TIBC, SAKINA, CRP #### [address] No Panel InformationOrdered By: Raeann Jing on 07-20-2023 Estimated GFR (CKD-EPI) > 60.0 mL/Min [facility] Creatinine Clearance (Chem N/A [facility] Nucleated erythrocytes [Pres ence] in Blood by Automated countOrdered By: Raeann Jing on 07-20-2023 Nucleated RBC Auto Ql (Bld) 0.1 /100{WBC} 0-0.5 [facility] Platelet mean volume [Entiti c volume] in Blood by Automated countOrdered By: Raeann Ch on 07-20-2023 Platelet mean volume (Bld) [Entitic vol] 8.8 fL Normal 6.3-10.7 [facility] Comment on above: Performed By: #### L IPID, B12, FOL, T4F, TSH3, FSH, [id number], CMP, MG, FE and TIBC, SAKINA, CRP #### [facility] [address] Platelets [#/volume] in Bloo d by Automated countOrdered By: Raeann Ch on 07-20-2023 Platelets (Bld) [#/Vol] 344 10*3/uL Normal 150-450 [facility] Comment on above: Performed By: #### L IPID, B12, FOL, T4F, TSH3, FSH, [id number], CMP, MG, FE and TIBC, SAKINA, CRP #### [facility] [address] Potassium [Moles/volume] in Serum or PlasmaOrdered By: Raeann Ch on 07-20-2023 Potassium [Moles/Vol] 4.2 mmol/L Normal 3.5-5.1 [facility] Comment on above: Performed By: #### L IPID, B12, FOL, T4F, TSH3, FSH, [id number], CMP, MG, FE and TIBC, SAKINA, CRP #### [facility] [address] Progesteroneon 07-20-2023 Progesterone 13.5 ng/mL Normal . [facility] Comment on above: Result Comment: Foll icular phase 0.1 - 0.9 Luteal phase 1.8 - 23.9 Ovulation phase 0.1 - 12.0 First trimester 11.0 - 44.3 Second trimester 25.4 - 83.3 Third trimester 58.7 - 214.0 Postmenopausal 0.0 - 0.1 Performed at: [facility] [id number] Phonograph Mechanic: Alf Simpson PhD, Phone: [phone] Performed By: #### L IPID, B12, FOL, T4F, TSH3, FSH, [id number], CMP, MG, FE and TIBC, SAKINA, CRP #### [facility] [address] Protein [Mass/volume] in Ser um or PlasmaOrdered By: Raeann Ch on 07-20-2023 Protein [Mass/Vol] 7.0 g/dL Normal 6.4-8.9 [facility] Comment on above: Performed By: #### L IPID, B12, FOL, T4F, TSH3, FSH, [id number], CMP, MG, FE and TIBC, SAKINA, CRP #### [facility] [address] Serum globulin measurement b y calculation (mass/volume)Ordered By: Raeann Ch on 07-20-2023 Globulin (S) [Mass/Vol] 2.5 g/dL Normal [facility] Comment on above: Performed By: #### L IPID, B12, FOL, T4F, TSH3, FSH, [id number], CMP, MG, FE and TIBC, SAKINA, CRP #### [facility] [address] [place] [id number] [facility] Serum or plasma albumin/glob ulin mass ratioOrdered By: Raeann Ch on 07-20-2023 Albumin/Globulin [Mass ratio] 1.8 {ratio} Normal [facility] Comment on above: Performed By: #### L IPID, B12, FOL, T4F, TSH3, FSH, [id number], CMP, MG, FE and TIBC, SAKINA, CRP #### [facility] [address] Serum or plasma anion gap de terminationOrdered By: Raeann Ch on 07-20-2023 Anion gap [Moles/Vol] 11.4 mmol/L Normal 6.0-15.0 [facility] Comment on above: Performed By: #### L IPID, B12, FOL, T4F, TSH3, FSH, [id number], CMP, MG, FE and TIBC, SAKINA, CRP #### [facility] [address] Serum or plasma estradiol (E 2) measurement (mass/volume)Ordered By: Raeann Ch on 07-20-2023 E2 [Mass/Vol] 126.0 pg/mL . [facility] Comment on above: Adult Female: Follic ular phase 12.5 - 166.0 Ovulation phase 85.8 - 498.0 Luteal phase 43.8 - 211.0 Postmenopausal <6.0 - 54.7 1st trimester 215.0 - >4300.0Roche ECLIA methodology Serum or plasma high density lipoprotein (HDL) cholesterol measurementOrdered By: Raeann Ch on 07-20-2023 Cholesterol in HDL [Mass/Vol] 45 mg/dL Normal 23-92 [facility] Comment on above: HDL CHOL ATP-III CLA SSIFICATION Cardiovascular RiskHDL > or equal to 60 mg/dL LOWHDL < 40 mg/dL HIGH Result Comment: HDL CHOL ATP-III CLASSIFICATION Cardiovascular Risk HDL > or equal to 60 mg/dL LOW HDL < 40 mg/dL HIGH Performed By: #### L IPID, B12, FOL, T4F, TSH3, FSH, [id number], CMP, MG, FE and TIBC, SAKINA, CRP #### [facility] [address] Serum or plasma insulin michael urement (units/volume)Ordered By: Raeann Ch on 07-20-2023 Insulin Qn 8.2 u[iU]/mL 2.6-24.9 [facility] Comment on above: Performed at: [address] [id number] Director: Alf Simpson PhD, Phone: [phone] Serum or plasma lutropin mandeep surement (units/volume)Ordered By: Raeann Ch on 07-20-2023 Lutropin Qn 5.5 m[IU]/mL . [facility] Comment on above: Adult Female: Follic ular phase 2.4 - 12.6 Ovulation phase 14.0 - 95.6 Luteal phase 1.0 - 11.4 Postmenopausal 7.7 - 58.5 Serum or plasma progesterone measurement (mass/volume)Ordered By: Raeann Ch on 07-20-2023 Progesterone [Mass/Vol] 13.5 ng/mL . [facility] Comment on above: Follicular phase 0.1 - 0.9 Luteal phase 1.8 - 23.9 Ovulation phase 0.1 - 12.0 First trimester 11.0 - 44.3 Second trimester 25.4 - 83.3 Third trimester 58.7 - 214.0 Postmenopausal 0.0 - 0.1Performed at: [facility] [address] [id number] Director: Alf Simpson PhD, Phone: [phone] Serum or plasma total choles terol/high density lipoprotein (HDL) cholesterol mass ratOrdered By: Raeann Ch on 07-20-2023 Cholesterol.total/Choles terol in HDL [Mass ratio] 3.3 {ratio} Normal <5.0 [facility] Comment on above: Performed By: #### L IPID, B12, FOL, T4F, TSH3, FSH, [id number], CMP, MG, FE and TIBC, SAKINA, CRP #### [facility] [address] [place] [address] [place] Sodium [Moles/volume] in Ser um or PlasmaOrdered By: Raeann Ch on 07-20-2023 Sodium [Moles/Vol] 140 mmol/L Normal 136-145 [facility] Comment on above: Performed By: #### L IPID, B12, FOL, T4F, TSH3, FSH, [id number], CMP, MG, FE and TIBC, SAKINA, CRP #### [facility] [address] [place] [id number] [facility] Testosterone Free TotalOrder ed By: Raeann Ch on 07-20-2023 Testosterone [Mass/Vol] 25 ng/dL Normal 13-71 [facility] Comment on above: Performed By: #### L IPID, B12, FOL, T4F, TSH3, FSH, [id number], CMP, MG, FE and TIBC, SAKINA, CRP #### [facility] [address] Testosterone Free Totalon Testosterone,Free 1.5 pg/mL Normal 0.0-4.2 [facility] Comment on above: Result Comment: Perf ormed at: - [facility] [address] [id number] Phonograph Mechanic: Alf Simpson PhD, Phone: [phone] Performed at: - [facility] [address] [id number] Phonograph Mechanic: Jayne Mann MD, Phone: [phone] Performed By: #### L IPID, B12, FOL, T4F, TSH3, FSH, [id number], CMP, MG, FE and TIBC, SAKINA, CRP #### [address] Thyrotropin [Units/volume] i n Serum or PlasmaOrdered By: Raeann Ch on 07-20-2023 TSH Qn 1.01 m[IU]/L Normal 0.45-5.33 [facility] Comment on above: Performed By: #### L IPID, B12, FOL, T4F, TSH3, FSH, [id number], CMP, MG, FE and TIBC, SAKINA, CRP #### [facility] [address] [place] [address] [place] Thyroxine (T4) free [Mass/vo lume] in Serum or PlasmaOrdered By: Raeann Ch on 07-20-2023 Free T4 [Mass/Vol] 0.92 ng/dL Normal 0.61-1.12 [facility] Comment on above: Performed By: #### L IPID, B12, FOL, T4F, TSH3, FSH, [id number], CMP, MG, FE and TIBC, SAKINA, CRP #### [address] Transferrin [Mass/volume] in Serum or PlasmaOrdered By: Raeann Ch on 07-20-2023 Transferrin [Mass/Vol] 305 mg/dL Normal 203-362 [facility] Comment on above: Performed By: #### L IPID, B12, FOL, T4F, TSH3, FSH, [id number], CMP, MG, FE and TIBC, SAKINA, CRP #### [facility] [address] Triglyceride [Mass/volume] i n Serum or PlasmaOrdered By: Raeann Ch on 07-20-2023 Triglyceride [Mass/Vol] 85 mg/dL 0-149 [facility] Comment on above: TRIG ATP III CLASSIF ICATIONTRIG less than 150 mg/dL NormalTRIG 150-199 mg/dL Borderline highTRIG 200-500 mg/dL High TRIG greater than 500 mg/dL Very highStandard traceable to the Center for Disease Conrtrol and Prevention (CDC) test method. Triiodothyronine (T3) Freeon 07-20-2023 Triiodothyronine (T3) Free 4.11 pg/mL High 2.50-3.90 [facility] Comment on above: Result Comment: PERF ORMED BY: [place] [address] PATHOLOGIST SPLITTER HEAD SADAF YOUNGBLOOD M.D. Performed By: #### L IPID, B12, FOL, T4F, TSH3, FSH, [id number], CMP, MG, FE and TIBC, SAKINA, CRP #### [facility] [address] Triiodothyronine (T3) Free [ Mass/volume] in Serum or PlasmaOrdered By: Raeann Ch on 07-20-2023 Free T3 [Mass/Vol] 4.11 pg/mL 2.50-3.90 [facility] Urea nitrogen [Mass/volume] in Serum or PlasmaOrdered By: Raeann Ch on 07-20-2023 Urea nitrogen [Mass/Vol] 8 mg/dL Normal 7-25 [facility] Comment on above: Performed By: #### L IPID, B12, FOL, T4F, TSH3, FSH, [id number], CMP, MG, FE and TIBC, SAKINA, CRP #### [facility] [address] Vitamin B12 ser/plasOrdered By: Raeann Ch on 07-20-2023 Cobalamin (Vitamin B12) [Mass/Vol] 384 pg/mL Normal 180-914 [facility] Comment on above: Performed By: #### L IPID, B12, FOL, T4F, TSH3, FSH, [id number], CMP, MG, FE and TIBC, SAKINA, CRP #### [facility] [address] Vitamin D 25 Hydroxy Totalon 07-20-2023 Vitamin D 25 Hydroxy Total 49.5 ng/mL Normal 30-100 [facility] Comment on above: Result Comment: NATALIE MIN D STATUS 25(OH)VITAMIN D RANGE (ng/mL) Deficient <20 Insufficient 20 to <30 Sufficient 30 to 100 Reference: Manish Bruno, Donis MANDEL, et al. Evaluation,treatment, and prevention of vitamin D deficiency; an Endocrine Society clinical practice guideline. JCEM. 2010; 96(7):1911-. PERFORMED BY: [place] [address] PATHOLOGIST SPLITTER HEAD SADAF YOUNGBLOOD M.D. Performed By: #### L IPID, B12, FOL, T4F, TSH3, FSH, [id number], CMP, MG, FE and TIBC, SAKINA, CRP #### [facility] [address] [place] [address] Vitamin D+Metabolites [Mass/ volume] in Serum or PlasmaOrdered By: Raeann Ch on 07-20-2023 Vitamin D+Metabolites [Mass/Vol] 49.5 ng/mL 30-100 [facility] Comment on above: VITAMIN D [...] 05-27-2023 ALT [Catalytic activity/Vol] 10 U/L 7-52 [facility] Albumin [Mass/volume] in Ser um or Plasma by Bromocresol green (BCG) dye binding methoOrdered By: Tiarra Childs on 05-27-2023 Albumin BCG dye [Mass/Vol] 4.4 g/dL 3.5-5.7 [facility] Alkaline phosphatase [Enzyma tic activity/volume] in Serum or PlasmaOrdered By: Tiarra Childs on 05-27-2023 ALP [Catalytic activity/Vol] 53 U/L 34-104 [facility] Aspartate aminotransferase [ Enzymatic activity/volume] in Serum or PlasmaOrdered By: Tiarra Childs on 05-27-2023 AST [Catalytic activity/Vol] 20 U/L 13-39 [facility] Basophils Auto (Bld) [#/Vol] Ordered By: Tiarra Childs on 05-27-2023 Basophils (Bld) [#/Vol] 0.0 10*3/uL 0.0-0.2 [facility] Basophils/100 WBC Auto (Bld) Ordered By: Tiarra Childs on 05-27-2023 Basophils/100 WBC (Bld) 0.5 % . [facility] Bilirubin.total [Mass/volume ] in Serum or PlasmaOrdered By: Tiarra Childs on 05-27-2023 Bilirubin [Mass/Vol] 1.5 mg/dL 0.3-1.0 [facility] Comment on above: Samples from patient s who have taken Naproxen have shown spurious elevation in Total Bilirubin levels. A metabolite of Naproxen, O-desmethylnaproxen, has been shown to interfere with the Radhika method for measuring Total Bilirubin. Calcium [Mass/volume] in Ser um or PlasmaOrdered By: Tiarra Childs on 05-27-2023 Calcium [Mass/Vol] 10.0 mg/dL 8.6-10.3 [facility] Carbon dioxide, total [Moles /volume] in Serum or PlasmaOrdered By: Tiarra Childs on 05-27-2023 CO2 [Moles/Vol] 27.0 mmol/L 21.0-31.0 [facility] Chloride [Moles/volume] in S ulises or PlasmaOrdered By: Tiarra Childs on 05-27-2023 Chloride [Moles/Vol] 104 mmol/L 98-107 [facility] Choriogonadotropin.beta subu nit [Units/volume] in Serum or PlasmaOrdered By: Tiarra Childs on 05-27-2023 HCG.beta subunit Qn 400.13 m[IU]/mL [facility] Comment on above: Approximate Approxim ate hCG Gestational Age Range (mIU/ml) (weeks)0.2-1 5-50 1-2 50-500 2-3 100-5,000 3-4 500-10,000 4-5 1,000-50,000 5-6 10,000-100,000 6-8 15,000-200,000 8-12 10,000-100,000 Creatinine [Mass/volume] in Serum or PlasmaOrdered By: Tiarra Childs on 05-27-2023 Creatinine [Mass/Vol] 0.74 mg/dL 0.60-1.20 [facility] Eosinophils Auto (Bld) [#/Vo l]Ordered By: Tiarra Childs on 05-27-2023 Eosinophils (Bld) [#/Vol] 0.1 10*3/uL 0.0-0.45 [facility] Eosinophils/100 WBC Auto (Bl d)Ordered By: Tiarra Childs on 05-27-2023 Eosinophils/100 WBC (Bld) 1.5 % . [facility] Erythrocyte distribution wid th Auto (RBC) [Ratio]Ordered By: Tiarra Childs on 05-27-2023 Erythrocyte distribution width (RBC) [Ratio] 13.2 % 11.9-15.3 [facility] Ferritin [Mass/volume] in Se rum or PlasmaOrdered By: Tiarra Childs on 05-27-2023 Ferritin [Mass/Vol] 10.1 ng/mL 11.0-306.8 [facility] Folate [Mass/volume] in Seru m or PlasmaOrdered By: Tiarra Childs on 05-27-2023 Folate [Mass/Vol] 16.2 ng/mL >5.9 [facility] Comment on above: Folate reference ran ge: >5.9 ng/mlThe WHO technical consultation on folate and vitamin [id number] has determined that folate concentrations lessthan 4 ng/ml are considered deficient. Globulin Calc (S) [Mass/Vol] Ordered By: Tiarra Childs on 05-27-2023 Globulin (S) [Mass/Vol] 3.0 g/dL [facility] Glucose [Mass/volume] in Ser um or PlasmaOrdered By: Tiarra Childs on 05-27-2023 Glucose [Mass/Vol] 73 mg/dL 70-100 [facility] Comment on above: ADA recommended refe rence rangeRandom Glucose Reference Range is dependent on time and content of last meal. Glucose of more than 200 mg/dL in a nonstressed, ambulatory subject supports the diagnosis of Diabetes Mellitus. Glucose mean value [Mass/vol ume] in Blood Estimated from glycated hemoglobinOrdered By: Tiarra Childs on 05-27-2023 Average glucose Estimated from glycated hemoglobin (Bld) [Mass/Vol] 94 mg/dL [facility] Hematocrit Auto (Bld) [Volum e fraction]Ordered By: Tiarra Childs on 05-27-2023 Hematocrit (Bld) [Volume fraction] 37.5 % 34.0-46.4 [facility] Hemoglobin A1c percentageOrd ered By: Tiarra Childs on 05-27-2023 HbA1c (Bld) [Mass fraction] 4.9 % 4.3-5.6 [facility] Comment on above: Increased risk for d iabetes: 5.7 - 6.4diabetes: >6.4glycemic control for adults with diabetes: <7.0 Hemoglobin [Mass/volume] in BloodOrdered By: Tiarra Childs on 05-27-2023 Hemoglobin (Bld) [Mass/Vol] 13.1 g/dL 11.8-15.4 [facility] Iron [Mass/volume] in Serum or PlasmaOrdered By: Tiarra Childs on 05-27-2023 Iron [Mass/Vol] 94 ug/dL 50-212 [facility] Iron binding capacity [Mass/ volume] in Serum or PlasmaOrdered By: Tiarra Childs on 05-27-2023 Iron binding capacity [Mass/Vol] 514 ug/dL 255-450 [facility] Iron saturation [Mass Fracti on] in Serum or PlasmaOrdered By: Tiarra Childs on 05-27-2023 Iron saturation [Mass fraction] 18.3 % 20-50 [facility] Leukocytes [#/volume] correc paulie for nucleated erythrocytes in Blood by Automated counOrdered By: Tiarra Childs on 05-27-2023 WBC corrected for nucl RBC Auto (Bld) [#/Vol] 6.3 10*3/uL 3.8-11.6 [facility] Lymphocytes Auto (Bld) [#/Vo l]Ordered By: Tiarra Childs on 05-27-2023 Lymphocytes (Bld) [#/Vol] 1.8 10*3/uL 1.00-4.8 [facility] Lymphocytes/100 WBC Auto (Bl d)Ordered By: Tiarra Childs on 05-27-2023 Lymphocytes/100 WBC (Bld) 29.2 % . [facility] MCH Auto (RBC) [Entitic mass ]Ordered By: Tiarra Childs on 05-27-2023 MCH (RBC) [Entitic mass] 31.5 pg 24.7-34.3 [facility] MCHC Auto (RBC) [Mass/Vol]Or dered By: Tiarra Childs on 05-27-2023 MCHC (RBC) [Mass/Vol] 34.9 g/dL 32.0-35.0 [facility] MCV Auto (RBC) [Entitic vol] Ordered By: Tiarra Childs on 05-27-2023 MCV (RBC) [Entitic vol] 90.3 fL 80-100 [facility] Monocytes Auto (Bld) [#/Vol] Ordered By: Tiarra Childs on 05-27-2023 Monocytes (Bld) [#/Vol] 0.4 10*3/uL 0.0-0.8 [facility] Monocytes/100 WBC Auto (Bld) Ordered By: Tiarra Childs on 05-27-2023 Monocytes/100 WBC (Bld) 6.7 % . [facility] Neutrophils Auto (Bld) [#/Vo l]Ordered By: Tiarra Childs on 05-27-2023 Neutrophils (Bld) [#/Vol] 3.9 10*3/uL 1.8-7.7 [facility] Neutrophils/100 WBC Auto (Bl d)Ordered By: Tiarra Childs on 05-27-2023 Neutrophils/100 WBC (Bld) 62.1 % . [facility] No Panel InformationOrdered By: Tiarra Childs on 05-27-2023 Estimated GFR (CKD-EPI) > 60.0 mL/Min [facility] Creatinine Clearance (Chem N/A [facility] Nucleated erythrocytes [Pres ence] in Blood by Automated countOrdered By: Tiarra Childs on 05-27-2023 Nucleated RBC Auto Ql (Bld) 0.1 /100{WBC} 0-0.5 [facility] Platelet mean volume Auto (B ld) [Entitic vol]Ordered By: Tiarra Childs on 05-27-2023 Platelet mean volume (Bld) [Entitic vol] 8.6 fL 6.3-10.7 [facility] Platelets Auto (Bld) [#/Vol] Ordered By: Tiarra Childs on 05-27-2023 Platelets (Bld) [#/Vol] 350 10*3/uL 150-450 [facility] Potassium [Moles/volume] in Serum or PlasmaOrdered By: Tiarra Childs on 05-27-2023 Potassium [Moles/Vol] 4.1 mmol/L 3.5-5.1 [facility] Protein [Mass/volume] in Ser um or PlasmaOrdered By: Tiarra Childs on 05-27-2023 Protein [Mass/Vol] 7.4 g/dL 6.4-8.9 [facility] RBC Auto (Bld) [#/Vol]Ordere d By: Tiarra Childs on 05-27-2023 RBC (Bld) [#/Vol] 4.15 10*6/uL 3.60-5.00 [facility] Serum or plasma albumin/glob ulin mass ratioOrdered By: Tiarra Childs on 05-27-2023 Albumin/Globulin [Mass ratio] 1.5 {ratio} [facility] Serum or plasma anion gap de terminationOrdered By: Tiarra Childs on 05-27-2023 Anion gap [Moles/Vol] 10.1 mmol/L 6.0-15.0 [facility] Serum or plasma insulin michael urement (units/volume)Ordered By: Tiarra Childs on 05-27-2023 Insulin Qn 5.5 u[iU]/mL 2.6-24.9 [facility] Comment on above: Performed at: [place] [id number] Director: Alf Simpson PhD, Phone: [phone] Sodium [Moles/volume] in Ser um or PlasmaOrdered By: Tiarra Childs on 05-27-2023 Sodium [Moles/Vol] 137 mmol/L 136-145 [facility] Thyrotropin [Units/volume] i n Serum or PlasmaOrdered By: Tiarra Childs on 05-27-2023 TSH Qn 0.95 m[IU]/L 0.45-5.33 [facility] Thyroxine (T4) free [Mass/vo lume] in Serum or PlasmaOrdered By: Tiarra Childs on 05-27-2023 Free T4 [Mass/Vol] 0.80 ng/dL 0.61-1.12 [facility] Transferrin [Mass/volume] in Serum or PlasmaOrdered By: Tiarra Childs on 05-27-2023 Transferrin [Mass/Vol] 367 mg/dL 203-362 [facility] Urea nitrogen [Mass/volume] in Serum or PlasmaOrdered By: Tiarra Childs on 05-27-2023 Urea nitrogen [Mass/Vol] 9 mg/dL 7-25 [facility] Vitamin B12 ser/plasOrdered By: Tiarra Childs on 05-27-2023 Cobalamin (Vitamin B12) [Mass/Vol] 340 pg/mL 180-914 [facility] Vitamin D+Metabolites [Mass/ volume] in Serum or PlasmaOrdered By: Tiarra Childs on 05-27-2023 Vitamin D+Metabolites [Mass/Vol] 43.5 ng/mL 30-100 [facility] Comment on above: VITAMIN D STATUS 25( [place])VITAMIN D RANGE (ng/mL) Deficient <20 Insufficient 20 to <30Sufficient 30 to 100Reference: Ambar MF,Manish MARTINEZ, Donis MANDEL, et al. Evaluation,treatment, and prevention of vitamin D deficiency; an Endocrine Society clinical practice guideline. JCEM. 2010; 96(7):1911-30. WBC Auto (Bld) [#/Vol]Ordere d By: Tiarra Childs on 05-27-2023 WBC (Bld) [#/Vol] 6.3 10*3/uL 3.8-11.6 [facility] COVID-19 Detected/Not Detect edOrdered By: Tiarra Childs on 12-09-2022 SARS-CoV-2 (COVID-19) RNA KYLAH+non-probe Ql (Nph) Not detected Not Detecte [facility] Comment on above: This is a duplicate RP2.1 COVID (PCR) result to be used for statistical tracking purpose only. Respiratory pathogens DNA an d RNA panel - Nasopharynx by KYLAH with non-probe detectionOrdered By: Tiarra Childs on 12-09-2022 Respiratory pathogens DNA and RNA panel KYLAH+non-probe (Nph) [facility] CBC AUTO DIFFon 12-04-2022 BASO # 0.0 103/ul Normal 0.0-0.1 [facility] Comment on above: Performed By: #### C BC #### [facility] [address] [place] [address] Dr. Angelica Smith Basophils/100 WBC (Bld) 0.7 % Normal 0.2-2.0 [facility] Comment on above: Performed By: #### C BC #### [facility] [address] [address] [address] Angelica Smith EO # 0.1 103/ul Normal 0.0-0.7 [facility] Comment on above: Performed By: #### C BC #### [facility] [address] [place] [address] Dr. Angelica Smith Eosinophils/100 WBC (Bld) 1.1 % Normal 0.9-7.0 [facility] Comment on above: Performed By: #### C BC #### [facility] [address] [place] [address] Dr. Angelica Smith Erythrocyte distribution width (RBC) [Ratio] 12.1 % Normal 11.0-15.0 [facility] Comment on above: Performed By: #### C BC #### [facility] [address] [place] [address] Dr. Angelica Smith Hematocrit (Bld) [Volume fraction] 39.3 % Normal 36.0-48.0 [facility] Comment on above: Performed By: #### C BC #### [facility] [address] [place] [address] Dr. Angelica Smith Hemoglobin (Bld) [Mass/Vol] 13.3 g/dL Normal 12.0-16.0 [facility] Comment on above: Performed By: #### C BC #### [facility] [address] [place] [address] Dr. Angelica Smith IG # 0.01 10e3/ul Normal 0.00-0.03 [facility] Comment on above: Performed By: #### C BC #### [facility] [address] [place] [address] Dr. Angelica Smith IG % 0.2 % Normal 0.0-0.5 [facility] Comment on above: Performed By: #### C BC #### [facility] [address] [place] [address] Dr. Angelica Smith LYMPH # 1.9 103/ul Normal 1.2-3.8 [facility] Comment on above: Performed By: #### C BC #### [facility] [address] [place] [address] Dr. Angelica Smith Lymphocytes/100 WBC (Bld) 31.4 % Normal 20.5-60.0 [facility] Comment on above: Performed By: #### C BC #### [facility] [address] [place] [address] Dr. Angelica Smith MANUAL DIFF REQ NO Normal [facility] Comment on above: Performed By: #### C BC #### [facility] [address] [place] [address] Dr. Angelica Smith MCH (RBC) [Entitic mass] 30.3 pg Normal 26.7-34.0 [facility] Comment on above: Performed By: #### C BC #### [facility] [address] [place] [address] Dr. Angelica Smith MCHC (RBC) [Mass/Vol] 33.8 g/dL Normal 29.9-35.2 [facility] Comment on above: Performed By: #### C BC #### [facility] [address] [place] [address] Dr. Angelica Smith MCV (RBC) [Entitic vol] 89.5 fL Normal 81.0-99.0 [facility] Comment on above: Performed By: #### C BC #### [facility] [address] [place] [address] Dr. Angelica Smith MONO # 0.5 103/ul Normal 0.3-0.8 [facility] Comment on above: Performed By: #### C BC #### [facility] [address] [place] [address] Dr. Angelica Smith Monocytes/100 WBC (Bld) 7.4 % Normal 1.7-12.0 [facility] Comment on above: Performed By: #### C BC #### [facility] [address] [place] [address] Dr. Angelica Smith NEUT # 3.6 103/ul Normal 1.4-6.5 [facility] Comment on above: Performed By: #### C BC #### [facility] [address] [place] [address] Dr. Angelica Smith Neutrophils/100 WBC (Bld) 59.2 % Normal 43.0-75.0 [facility] Comment on above: Performed By: #### C BC #### [facility] [address] [place] [address] Dr. Angelica Smith Platelet mean volume (Bld) [Entitic vol] 9.7 fL Normal 9.5-13.5 [facility] Comment on above: Performed By: #### C BC #### [facility] [address] [address] [address] Angelica Smith PLT 289 103/ul Normal 150-450 [facility] Comment on above: Performed By: #### C BC #### [facility] [address] [address] [address] Angelica Smith RBC 4.39 106/ul Normal 4.20-5.40 [facility] Comment on above: Performed By: #### C BC #### [facility] [address] [address] [address] Angelica Smith WBC 6.1 103/ul Normal 4.0-11.0 [facility] Comment on above: Performed By: #### C BC #### [facility] [address] [place] [address] Dr. Angelica Smith PREG QUANT HCGon 12-04-2022 HCG QUANT <1 Normal [facility] Comment on above: Performed By: #### P REGQNT #### [facility] [address] [place] [address] Dr. Angelica Smith HCG RANGE SEE BELOW Normal [facility] Comment on above: Result Comment: 5-50 0.2-1 WEEK 50-500 1-2 WEEKS 100-5,000 2-3 WEEKS 500-10,000 3-4 WEEKS 1,000-50,000 4-5 WEEKS 10,000-100,000 5-6 WEEKS 15,000-200,000 6-8 WEEKS 10,000-100,000 2-3 MONTHS Performed By: #### P REGQNT #### [facility] [address] [place] [address] Dr. Angelica Smith Albumin [Mass/volume] in Ser um or PlasmaOrdered By: Tiarra Childs on 10-29-2022 Albumin [Mass/Vol] 4.3 g/dL 3.2-5.5 [facility] Alternaria alternata IgE Ab [Units/volume] in SerumOrdered By: Tiarra Childs on 10-29-2022 A. alternata IgE Qn (S) <0.10 kU/L Class 0 F [facility] Singaporean house dust mite IgE Ab [Units/volume] in SerumOrdered By: Tiarra Childs on 10-29-2022 Singaporean house dust mite IgE Qn (S) 0.10 kU/L Class 0/I [facility] Aspergillus fumigatus IgE Ab [Units/volume] in SerumOrdered By: Tiarra Childs on 10-29-2022 A. fumigatus IgE Qn (S) <0.10 kU/L Class 0 [facility] Shaffer's yeast IgE Ab [Units/ volume] in SerumOrdered By: Tiarra Childs on 10-29-2022 Shaffer's yeast IgE Qn (S) <0.10 kU/L Class 0 [facility] Comment on above: Performed at: [address] [id number] Director: Jayne Mann MD, Phone: [phone] Banana IgE Ab [Units/volume] in SerumOrdered By: Tiarra Childs on 10-29-2022 Banana IgE Qn (S) <0.10 kU/L Class 0 [facility] Barley IgE Ab [Units/volume] in SerumOrdered By: Tiarra Childs on 10-29-2022 Barley IgE Qn (S) 0.40 kU/L Class I [facility] Beef IgE Ab [Units/volume] i n SerumOrdered By: Tiarra Childs on 10-29-2022 Beef IgE Qn (S) <0.10 kU/L Class 0 [facility] Bermuda grass IgE Ab [Units/ volume] in SerumOrdered By: Tiarra Childs on 10-29-2022 Bermuda grass IgE Qn (S) <0.10 kU/L Class 0 [facility] Boxelder IgE Ab [Units/volum e] in SerumOrdered By: Tiarra Childs on 10-29-2022 Boxelder IgE Qn (S) <0.10 kU/L Class 0 [facility] Cheese cheddar type IgE Ab [ Units/volume] in SerumOrdered By: Tiarra Childs on 10-29-2022 Cheese cheddar type IgE Qn (S) <0.10 kU/L Class 0 [facility] Cladosporium herbarum IgE Ab [Units/volume] in SerumOrdered By: Tiarra Childs on 10-29-2022 C. herbarum IgE Qn (S) <0.10 kU/L Class 0 [facility] Cockroach IgE Ab [Units/volu me] in SerumOrdered By: Tiarra Childs on 10-29-2022 Cockroach IgE Qn (S) 0.44 kU/L Class I [facility] IgE Ab [Units/volume] i n SerumOrdered By: Tiarra Childs on 10-29-2022 [place] IgE Qn (S) <0.10 kU/L Class 0 [facility] [place] IgE Ab [Units/vol ume] in SerumOrdered By: Tiarra Childs on 10-29-2022 [place] IgE Qn (S) <0.10 kU/L Class 0 [facility] Cow milk IgE Ab [Units/volum e] in SerumOrdered By: Tiarra Childs on 10-29-2022 Cow milk IgE Qn (S) <0.10 kU/L Class 0 [facility] Creatinine and Glomerular fi ltration rate.predicted panel (S/P/Bld)Ordered By: Tiarra Childs on 10-29-2022 Creatinine [Mass/Vol] 0.65 mg/dL 0.44-1.03 [facility] Dog dander IgE Ab [Units/vol ume] in SerumOrdered By: Tiarra Childs on 10-29-2022 Dog dander IgE Qn (S) 0.12 kU/L Class 0/I [facility] Estimated glomerular filtrat ion rate (GFR) non- AmericanOrdered By: Tiarra Childs on 10-29-2022 GFR/1.73 sq M.predicted among non-blacks MDRD (S/P/Bld) [Vol rate/Area] > 60 mL/Min [facility] house dust mite IgE Ab [Units/volume] in SerumOrdered By: Tiarra Childs on 10-29-2022 house dust mite IgE Qn (S) 0.26 kU/L Class 0/I [facility] Free testosterone measuremen t by LC-MS/MSOrdered By: Tiarra Childs on 10-29-2022 Testosterone Free [Mass/Vol] 3.7 pg/mL 0.0-4.2 [facility] Comment on above: Performed at: [address] [id number] Director: Alf Simpson PhD, Phone: [phone] at: - [facility] [id number] Director: Jayne Mann MD, Phone: [phone] Gluten IgE Ab [Units/volume] in SerumOrdered By: Tiarra Childs on 10-29-2022 Gluten IgE Qn (S) <0.10 kU/L Class 0 [facility] Hepatitis B virus surface Ag [Presence] in Serum or Plasma by ImmunoassayOrdered By: Tiarra Childs on 10-29-2022 HBV surface Ag IA Ql Negative Negative [facility] Hepatitis C virus RNA [Units /volume] (viral load) in Serum or Plasma by KYLAH with probOrdered By: Tiarra Childs on 10-29-2022 HCV RNA KYLAH+probe Qn N/A [facility] Hepatitis C virus RNA [log u nits/volume] (viral load) in Serum or Plasma by KYLAH withOrdered By: Tiarra Childs on 10-29-2022 HCV RNA KYLAH+probe [Log units/Vol] N/A [facility] Human leukocyte antigen (HLA ) DQ2 detectionOrdered By: Tiarra Childs on 10-29-2022 HLA-DQ2 Ql (Bld/Tiss) Negative . [facility] Human leukocyte antigen (HLA ) DQ8 detectionOrdered By: Tiarra Childs on 10-29-2022 HLA-DQ8 Ql (Bld/Tiss) Negative . [facility] Comment on above: Final Results:DQA1*0 5:AMMON,-DQB1*03:JENNIFER,-Code Translation:EETCV 05:01/05:05/05:09/05:11/05:12/05:13/05:14 /05:16/05:17N/05:20/05:24/05:2505:26 /05:28/05:29Q/05:30/05:32/05:34/05:35 /05:37/05:39/05:42/05:43/05:44/05:45/05:46 /05:48/05:50/05:51/05:53/05:58/05:59/05:60 /05:62/05:64EETKC 03:09/22:06/22:03/12:06/12:08/12:09/12::14/12:15/12:16/12:35:36:4203:44 03:46/03:4703:4803:4903:50/03:5103:52 03:5303:54/03:55/03:56/03:57/03:58/03:59 /03:60/03:69/03:73/03:75/03:76/03:77/03:78 /03:82/03:83/03:84N/03:92/03:93/03:94 /03:101/03:102/03:103/03:108/03:109/03:114 /03:115/03:116/03:118N/03:119/03:120 /03:121/03:122/03:127/03:128/03:129/03:130 /03:131/03:133/03:134/03:135/03:139/03:140 /03:142/03:143/03:144/03:147/03:148/03:151 /03:152/03:154/03:157/03:158/03:159/03:160 /03:162/03:163/03:164/03:165/03:166/03:167 /03:169/03:170/03:171/03:173/03:182/03:183 /03:186/03:188/03:191/03:192/03:193/03:196 /03:197Q/03:198/03:201/03:202/03:206 /03:207/03:208/03:216/03:218/03:219/03:231 /03:232/03:235/03:236/03:241/03:242/03:243 /03:246/:252/03:253/:254/:255/:257 /03:260/03:264/03:266/03:267/:268/:271 /03:275/03:276N/03:281/:284/:285 /:288/:290/:291/:292/:293/:294 /03:297/03:302/03:303N/03:305/03:306 /03:307/03:309/03:311/03:312/03:314/03:317 /03:326/03:328/03:329/03:330/03:331 /03:338N/03:340N/03:341/03:342/03:347 /03:350/03:353/03:354N/03:358N/03:361 /03:366/03:370/03:372/03:373/03:377/03:378 /03:380/03:385N/03:387/03:389/03:390 /03:391/03:394/03:396/03:399N/03:400N /03:404/03:407N/03:408/03:417/03:418 /03:419/03:420/03:421/03:423/03:424/03:425 /03:426/03:427N/03:428/03:430/03:431 /03:432/03:434/03:435/03:436/03:438/03:439 /03:448/03:449/03:451/03:454/03:455/03:458 /03:460/03:465/03:467/:468/:469/03:470 /03:472/03:473N/03:475/03:476/03:480Q /03:482/03:483/03:486/03:488N/03:491/03:492The patient is positive for DQA1*05, one half of the HA4wjcnppmxlea. The Celiac Disease risk from the HLA DQA/DQBgenotype is approximately 1:1842 (0.05%). This is lessthan the 1% risk in the general population.Allele interpretation for all loci based on IMGT/HLAdatabase version 3.49.0[facility] Lab [place] ID Number [id number] than 95% of celiac patients are positive for eitherDQ2 or DQ8 (Kirt and Neela, (1993) [id number]:910-922). However these antigens may also be present inpatients who do not have Celiac disease. IgE [Units/volume] in Serum or PlasmaOrdered By: Tiarra Childs on 10-29-2022 IgE Qn 5 [IU]/mL 6-495 [facility] - Chemistry and C hemistry - challengeOrdered By: Tiarra Childs on 10-29-2022 Testosterone [Mass/Vol] 41 ng/dL 13-71 F [facility] [place] Jun[place] IgE Ab [Uni ts/volume] in SerumOrdered By: Tiarra Childs on 10-29-2022 [place] Jun[place] IgE Qn (S) 0.19 kU/L Class 0/I [facility] Mouse urine proteins IgE Ab [Units/volume] in SerumOrdered By: Tiarra Childs on 10-29-2022 Mouse urine proteins IgE Qn (S) <0.10 kU/L Class 0 [facility] No Panel InformationOrdered By: Tiarra Childs on 10-29-2022 Allergen Note See comment . [facility] Comment on above: Levels of Specific I gE Class Description of Class ----- < 0.10 0 Negative 0.10 - 0.31 0/I Equivocal/Low 0.32 - 0.55 I Low 0.56 - 1.40 II Moderate 1.41 - 3.90 III High 3.91 - 19.00 IV Very High 19.01 - 100.00 V Very High >100.00 Very High C-Peptide 1.7 ng/mL 1.1-4.4 [facility] Comment on above: C-Peptide reference interval is for fasting patients.Performed at: - [facility] [id number] Director: Alf Simpson PhD, Phone: [phone] Celiac Gene Interpretation See comment . [facility] Comment on above: References:1. Fidel CROOKS and Krystin Lock. Celiac Disease. N Eng J Med 2007; 357:9427-5939.2. Yeni F, Dottie B, Freemano M et al. HLA-DQ and risk gradient for celiac disease. Hum Immunol 2009; 70:55-59.3. Bandar MM, Rigo TC, Raven FM et al. Stratifying risk for celiac disease in a large at-risk [facility] population by using HLA alleles. Clin Gastroenterol Hepatol 2009; 7:966-971.4. Kirt PALMER and Kieran BA. (2005). Celiac Disease Genetics: Current Concepts and Practical Applications. Clin Gastroenterol and Hepat 3:843-851.5. Yamile CL, Andrew DO, Fidel CROOKS, et al. Celiac Disease. In: Lori RA, Sang TC, Nigel CR, Je K, editors. Chris Polyn[employer]), [facility], [place], March 22, 2008:1-27. http://www.ncbi.nlm.nih.gov/booksdayaf/br.fcgi?book=genepart=c eliac PMID [id number] (PubMed)6. Luis Lim. Emerging concepts in celiac disease. Curr Opin Pediatr 2004;16:552-559.Performed at: 2 - [facility] [id number] [place], [place] [id number] Director: Dajuan Dickinson PhD, Phone: [phone] Dehydroepiandrosterone Sulfate 368.0 ug/dL 110.0-431. 7 [facility] Estimated GFR () > 60 mL/Min [facility] Comment on above: GFR estimated refere nce range: According to KDOQI guidelines, <60 ml/min/1.73m2 is sufficient to diagnose a patient with chronic kidney disease. Hepatitis A IgM Antibody Negative Negative [facility] Hepatitis B Core IgM Antibody Negative Negative [facility] Hepatitis C Interpretation See comment . [facility] Comment on above: NegativeNot infected with HCV, unless recent infection issuspected or other evidence exists to indicate HCVinfection.Performed at: [employer] [facility] [id number] Director: Alf Simpson PhD, Phone: [phone] Hepatitis C RNA Quantitative N/A [facility] HLA Genotype Interpretation See comment . [facility] Comment on above: This test was perfor med using Polymerase ChainReaction/(PCR)Sequence Specific Oligonucleotide Probes(SSOP) (Luminex) technique. Sequence Based Typing (SBT)and/or Sequence Specific Primers (SSP) may be used assupplemental methods when necessary. Please contact HLACustomer Service at if you have anyquestions.Director of HLA LaboratoryDr Dajuan Dickinson, PhD Pharmacy Creatinine Clearance (Chem N/A [facility] Oat IgE Ab [Units/volume] in SerumOrdered By: Tiarra Childs on 10-29-2022 Oat IgE Qn (S) 0.32 kU/L Class I [facility] [place] IgE Ab [Units/volume] in SerumOrdered By: Tiarra Childs on 10-29-2022 [place] IgE Qn (S) <0.10 kU/L Class 0 [facility] Peanut IgE Ab [Units/volume] in SerumOrdered By: Tiarra Childs on 10-29-2022 Peanut IgE Qn (S) <0.10 kU/L Class 0 [facility] Pecan or Spink Tree IgE Ab [Units/volume] in SerumOrdered By: Tiarra Childs on 10-29-2022 Pecan or Spink Tree IgE Qn (S) <0.10 kU/L Class 0 [facility] Phosphate [Mass/volume] in S ulises or PlasmaOrdered By: Tiarra Childs on 10-29-2022 Phosphate [Mass/Vol] 4.2 mg/dL 2.5-4.6 [facility] Pork IgE Ab [Units/volume] i n SerumOrdered By: Tiarra Childs on 10-29-2022 Pork IgE Qn (S) <0.10 kU/L Class 0 [facility] Prolactin [Mass/volume] in S ulises or PlasmaOrdered By: Tiarra Childs on 10-29-2022 Prolactin [Mass/Vol] 6.27 ng/mL 3.34-26.72 [facility] [place] IgE Ab [Units/volume] i n SerumOrdered By: Tiarra Childs on 10-29-2022 [place] IgE Qn (S) <0.10 kU/L Class 0 [facility] [place] IgE Ab [Units/volume] in SerumOrdered By: Tiarra Childs on 10-29-2022 [place] IgE Qn (S) 0.31 kU/L Class 0/I [facility] Saltwort IgE Ab [Units/volum e] in SerumOrdered By: Tiarra Childs on 10-29-2022 Saltwort IgE Qn (S) <0.10 kU/L Class 0 [facility] Serum Singaporean sycamore IgE antibody assay (units/volume)Ordered By: Tiarra Childs on 10-29-2022 Singaporean [place] IgE Qn (S) 0.11 kU/L Class 0/I [facility] Serum Penicillium chrysogenu m specific IgE antibody assayOrdered By: Tiarra Childs on 10-29-2022 P. notatum IgE Qn (S) <0.10 kU/L Class 0 [facility] Serum androstenedione measur ement by LC-MS/MS (mass/volume)Ordered By: Tiarra Childs on 10-29-2022 Androstenedione [Mass/Vol] 135 ng/dL 41-262 [facility] Comment on above: This test was develo ped and its performance characteristicsdetermined by [facility]. It has not been cleared orapproved by the Food and Drug Administration.Performed at: [address] [id number] Director: Jayne Mann MD, Phone: [phone] Serum cat dander IgG antibod y assay (units/volume)Ordered By: Tiarra Childs on 10-29-2022 Cat dander IgG Qn (S) <0.10 kU/L Class 0 [facility] Serum chicken droppings IgE antibody assay (units/volume)Ordered By: Tiarra Childs on 10-29-2022 Chicken droppings IgE Qn (S) <0.10 kU/L Class 0 [facility] Serum or plasma 17-hydroxypr ogesterone measurement (mass/volume)Ordered By: Tiarra Childs on 10-29-2022 17-Hydroxyprogesterone [Mass/Vol] 28 ng/dL . [facility] Comment on above: Adult Female Follicu lar 15 - 70 Luteal 35 - 290This test was developed and its performance characteristicsdetermined by [facility]. It has not been cleared orapproved by the Food and Drug Administration.Performed at: [address] [id number] Director: Jayne Mann MD, Phone: [phone] Serum or plasma anion gap de terminationOrdered By: Tiarra Childs on 10-29-2022 Anion gap [Moles/Vol] 9.2 mmol/L 6.0-15.0 [facility] Serum or plasma calcium michael urement (mass/volume)Ordered By: Tiarra Childs on 10-29-2022 Calcium [Mass/Vol] 9.4 mg/dL 8.2-10.2 [facility] Serum or plasma chloride mandeep surement (moles/volume)Ordered By: Tiarra Childs on 10-29-2022 Chloride [Moles/Vol] 105 mmol/L 95-114 [facility] Serum or plasma follitropin measurement (units/volume)Ordered By: Tiarra Childs on 10-29-2022 Follitropin Qn 5.1 m[IU]/mL [facility] Comment on above: FEMALE NORMALS (FLOWER ENOPAUSE) MID-FOLLICULAR PHASE: 3.9-8.8 mIU/mL MID-CYCLE PEAK: 4.5-22.5 mIU/mL MID-LUTEAL PHASE: 1.8-5.1 mIU/mLFEMALE NORMALS (POSTMENOPAUSE): 16.7-113.6 mIU/mLMALE NORMALS: 1.3-19.3 mIU/mL Serum or plasma glucose michael urement (mass/volume)Ordered By: Tiarra Childs on 10-29-2022 Glucose [Mass/Vol] 83 mg/dL 70-100 [facility] Comment on above: ADA recommended refe rence [...] IA [Rel units/Vol] <0.1 s/co ratio 0.0-0.9 [facility] Serum or plasma insulin michael urement (units/volume)Ordered By: Tiarra Childs on 10-29-2022 Insulin Qn 6.1 u[iU]/mL 2.6-24.9 [facility] Comment on above: Performed at: [facility] [place] [id number] Director: Alf Simpson PhD, Phone: [phone] Serum or plasma lutropin mandeep surement (units/volume)Ordered By: Tiarra Childs on 10-29-2022 Lutropin Qn 7.8 m[IU]/mL . [facility] Comment on above: Adult Female: Follic ular phase 2.4 - 12.6 Ovulation phase 14.0 - 95.6 Luteal phase 1.0 - 11.4 Postmenopausal 7.7 - 58.5Performed at: [facility] [address] [id number] Director: Alf Simpson PhD, Phone: [phone] Serum or plasma potassium me asurement (moles/volume)Ordered By: Tiarra Childs on 10-29-2022 Potassium [Moles/Vol] 3.8 mmol/L 3.5-5.1 [facility] Serum or plasma sodium measu rement (moles/volume)Ordered By: Tiarra Childs on 10-29-2022 Sodium [Moles/Vol] 137 mmol/L 136-146 [facility] Serum or plasma total carbon dioxide measurement (moles/volume)Ordered By: Tiarra Childs on 10-29-2022 CO2 [Moles/Vol] 26.6 mmol/L 22.0-30.0 [facility] Serum or plasma urea nitroge n measurement (mass/volume)Ordered By: Tiarra Childs on 10-29-2022 Urea nitrogen [Mass/Vol] 8 mg/dL 9-23 [facility] Serum rough pigweed IgE anti body assay (units/volume)Ordered By: Tiarra Childs on 10-29-2022 Rough Pigweed IgE Qn (S) <0.10 kU/L Class 0 [facility] Serum short ragweed specific IgE antibody assayOrdered By: Tiarra Childs on 10-29-2022 Common Ragweed IgE Qn (S) <0.10 kU/L Class 0 [facility] Serum white elm IgG antibody assay (units/volume)Ordered By: Tiarra Childs on 10-29-2022 White Elm IgG Qn (S) <0.10 kU/L Class 0 [facility] Serum white potato specific IgE antibody assayOrdered By: Tiarra Childs on 10-29-2022 Potato IgE Qn (S) <0.10 kU/L Class 0 [facility] Sheep [facility] IgE Ab [Units/v olume] in SerumOrdered By: Tiarra Childs on 10-29-[address] [place] IgE Qn (S) <0.10 kU/L Class 0 [facility] Silver Birch IgE Ab [Units/v olume] in SerumOrdered By: Tiarra Childs on 10-29-2022 Silver Birch IgE Qn (S) 0.15 kU/L Class 0/I [facility] Soybean specific IgE antibod y assayOrdered By: Tiarra Childs on 10-29-2022 Soybean IgE Qn (S) <0.10 kU/L Class 0 [facility] Donavon IgE Ab [Units/volume ] in SerumOrdered By: Tiarra Childs on 10-29-2022 Donavon IgE Qn (S) <0.10 kU/L Class 0 [facility] Tomato IgE Ab [Units/volume] in SerumOrdered By: Tiarra Childs on 10-29-2022 Tomato IgE Qn (S) <0.10 kU/L Class 0 [facility] Sieper IgE Ab [Units/volume] in SerumOrdered By: Tiarra Childs on 10-29-2022 Sieper IgE Qn (S) 0.14 kU/L Class 0/I [facility] Wheat IgE Ab [Units/volume] in SerumOrdered By: Tiarra Childs on 10-29-2022 Wheat IgE Qn (S) <0.10 kU/L Class 0 [facility] White Marquez IgE Ab [Units/volu me] in SerumOrdered By: Tiarra Childs on 10-29-2022 White Marquez IgE Qn (S) <0.10 kU/L Class 0 [facility] [place] IgE Ab [Units/volu me] in SerumOrdered By: Tiarra Childs on 10-29-2022 [place] IgE Qn (S) 0.27 kU/L Class 0/I [facility] White mulberry IgE Ab [Units /volume] in SerumOrdered By: Tiarra Childs on 10-29-2022 White mulberry IgE Qn (S) <0.10 kU/L Class 0 [facility] Creatinine [Mass/volume] in UrineOrdered By: Tiarra Childs on 10-20-2022 Creatinine (U) [Mass/Vol] 96.6 mg/dL [facility] Comment on above: No reference range e stablished Urine microalbumin measureme nt with detection limit of 20 mg/L or less (mass/volume)Ordered By: Tiarra Childs on 10-20-2022 Albumin DL <= 20 mg/L (U) [Mass/Vol] 24.1 mg/dL 0.0-1.8 [facility] Urine microalbumin/creatinin e mass ratioOrdered By: Tiarra Childs on 10-20-2022 Albumin/Creatinine DL <= 20 mg/L (U) [Mass ratio] 249.0 mg/g 0.0-30.0 [facility] Comment on above: 30-300 mg/g indicate s an increased risk for diabetic nephropathy. Greater than 300 mg/g is consistent with clinical nephropathy. (Am. J. Kidney Disease 1995, 25:107) Albumin [Mass/volume] in Ser um or PlasmaOrdered By: Tiarra Childs on 10-09-2022 Albumin [Mass/Vol] 4.1 g/dL 3.2-5.5 [facility] Basophils Auto (Bld) [#/Vol] Ordered By: Tiarra Childs on 10-09-2022 Basophils (Bld) [#/Vol] 0.0 10*3/uL 0.0-0.2 [facility] Basophils/100 WBC Auto (Bld) Ordered By: Tiarra Childs on 10-09-2022 Basophils/100 WBC (Bld) 0.6 % . [facility] C reactive protein [Mass/vol ume] in Serum or PlasmaOrdered By: Tiarra Childs on 10-09-2022 CRP [Mass/Vol] < 0.5 mg/dL 0.0-1.0 [facility] CT biopsyOrdered By: Trish Childs on 10-09-2022 Transferrin [Mass/Vol] 262 mg/dL 180-380 [facility] Creatinine [Mass/volume] in UrineOrdered By: Tiarra Childs on 10-09-2022 Creatinine (U) [Mass/Vol] 123.2 mg/dL [facility] Comment on above: No reference range e stablished Creatinine and Glomerular fi ltration rate.predicted panel (S/P/Bld)Ordered By: Tiarra Childs on 10-09-2022 Creatinine [Mass/Vol] 0.67 mg/dL 0.44-1.03 [facility] Eosinophils Auto (Bld) [#/Vo l]Ordered By: Tiarra Childs on 10-09-2022 Eosinophils (Bld) [#/Vol] 0.1 10*3/uL 0.0-0.45 [facility] Eosinophils/100 WBC Auto (Bl d)Ordered By: Tiarra Childs on 10-09-2022 Eosinophils/100 WBC (Bld) 0.9 % . [facility] Erythrocyte distribution wid th Auto (RBC) [Ratio]Ordered By: Tiarra Childs on 10-09-2022 Erythrocyte distribution width (RBC) [Ratio] 13.1 % 11.9-15.3 [facility] Erythrocyte sedimentation ra te by Photometric methodOrdered By: Tiarra Childs on 10-09-2022 ESR Photometric method (Bld) [Velocity] 5 mm/hr 0-19 [facility] Estimated glomerular filtrat ion rate (GFR) non- AmericanOrdered By: Tiarra Childs on 10-09-2022 GFR/1.73 sq M.predicted among non-blacks MDRD (S/P/Bld) [Vol rate/Area] > 60 mL/Min [facility] Ferritin [Mass/volume] in Se rum or PlasmaOrdered By: Tiarra Childs on 10-09-2022 Ferritin [Mass/Vol] 12.7 ng/mL 11-306.8 [facility] Folate [Mass/volume] in Seru m or PlasmaOrdered By: Tiarra Childs on 10-09-2022 Folate [Mass/Vol] 8.1 ng/mL >5.9 [facility] Comment on above: Folate reference ran ge: >5.9 ng/mlThe WHO technical consultation on folate and vitamin [id number] has determined that folate concentrations lessthan 4 ng/ml are considered deficient. Globulin Calc (S) [Mass/Vol] Ordered By: Tiarra Childs on 10-09-2022 Globulin (S) [Mass/Vol] 2.3 g/dL F [facility] Hematocrit Auto (Bld) [Volum e fraction]Ordered By: Tiarra Childs on 10-09-2022 Hematocrit (Bld) [Volume fraction] 41.6 % 34.0-46.4 [facility] Hemoglobin [Mass/volume] in BloodOrdered By: Tiarra Childs on 10-09-2022 Hemoglobin (Bld) [Mass/Vol] 13.8 g/dL 11.8-15.4 [facility] Iron [Mass/volume] in Serum or PlasmaOrdered By: Tiarra Childs on 10-09-2022 Iron [Mass/Vol] 69 ug/dL 40-150 [facility] Iron binding capacity [Mass/ volume] in Serum or PlasmaOrdered By: Tiarra Childs on 10-09-2022 Iron binding capacity [Mass/Vol] 367 ug/dL 255-450 [facility] Iron saturation [Mass Fracti on] in Serum or PlasmaOrdered By: Tiarra Childs on 10-09-2022 Iron saturation [Mass fraction] 18.8 % 20-50 [facility] Laboratory - Chemistry and C hemistry - challengeOrdered By: Tiarra Childs on 10-09-2022 Cobalamin (Vitamin B12) [Mass/Vol] 394 pg/mL 180-914 [facility] Lipase [Catalytic activity/Vol] 29.0 U/L 22-51 [facility] Leukocytes [#/volume] correc paulie for nucleated erythrocytes in Blood by Automated counOrdered By: Tiarra Childs on 10-09-2022 WBC corrected for nucl RBC Auto (Bld) [#/Vol] 6.3 10*3/uL 3.8-11.6 [facility] Lymphocytes Auto (Bld) [#/Vo l]Ordered By: Tiarra Childs on 10-09-2022 Lymphocytes (Bld) [#/Vol] 1.5 10*3/uL 1.00-4.8 [facility] Lymphocytes/100 WBC Auto (Bl d)Ordered By: Tiarra Childs on 10-09-2022 Lymphocytes/100 WBC (Bld) 24.1 % . [facility] MCH Auto (RBC) [Entitic mass ]Ordered By: Tiarra Childs on 10-09-2022 MCH (RBC) [Entitic mass] 29.8 pg 24.7-34.3 [facility] MCHC Auto (RBC) [Mass/Vol]Or dered By: Tiarra Childs on 10-09-2022 MCHC (RBC) [Mass/Vol] 33.3 g/dL 32.0-35.0 [facility] MCV Auto (RBC) [Entitic vol] Ordered By: Tiarra Childs on 10-09-2022 MCV (RBC) [Entitic vol] 89.7 fL 80-100 F [facility] Monocytes Auto (Bld) [#/Vol] Ordered By: Tiarra Childs on 10-09-2022 Monocytes (Bld) [#/Vol] 0.3 10*3/uL 0.0-0.8 [facility] Monocytes/100 WBC Auto (Bld) Ordered By: Tiarra Childs on 10-09-2022 Monocytes/100 WBC (Bld) 5.2 % . [facility] Neutrophils Auto (Bld) [#/Vo l]Ordered By: Tiarra Childs on 10-09-2022 Neutrophils (Bld) [#/Vol] 4.3 10*3/uL 1.8-7.7 [facility] Neutrophils/100 WBC Auto (Bl d)Ordered By: Tiarra Childs on 10-09-2022 Neutrophils/100 WBC (Bld) 69.2 % . [facility] No Panel InformationOrdered By: Tiarra Childs on 10-09-2022 25-Hydroxy Vitamin D Total 31.2 ng/mL 30-100 [facility] Comment on above: VITAMIN D STATUS 25( [place])VITAMIN D RANGE (ng/mL) Deficient <20 Insufficient 20 to <30Sufficient 30 to 100Reference: Ambar MF,Manish NC, Donis MANDEL, et al. Evaluation,treatment, and prevention of vitamin D deficiency; an Endocrine Society clinical practice guideline. JCEM. 2010; 96(7):1911-30. Anti-Nuclear Antibody Comment 2 See comment . [facility] Comment on above: For more information about Hep-2 cell patterns useANApatterns.org, the official website for the InternationalConsensus on Antinuclear Antibody (BRAVO) Patterns (ICAP). ------A positive BRAVO result may occur in healthy individuals (lowtiter) or be associated with a variety of diseases. Seeinterpretation chart which is not all inclusive:Pattern Antigen Detected Suggested Disease Association Homogeneous DNA(ds,ss), SLE - High titers Nucleosomes, Histones Drug-induced SLE Speckled Sm, BEADING [employer]ST[employer]ER, SCL-70, SLE,MCTD,PSS (diffuse form), SS-A/SS-B Sjogrens Nucleolar SCL-70, PM-1/SCL High titers Scleroderma, PM/DM Centromere Centromere PSS (limited form) w/Crest syndrome variable Nuclear Dot [id number] Primary Biliary Cirrhosis Nuclear GP210, Primary Biliary CirrhosisMembrane phil A,B,C Performed at: [facility] [id number] Director: Alf Simpson PhD, Phone: [phone] C-Peptide 3.7 ng/mL 1.1-4.4 [facility] Comment on above: C-Peptide reference interval is for fasting patients.Performed at: [facility] [address] [id number] Director: Alf Simpson PhD, Phone: [phone] Estimated GFR () > 60 mL/Min [facility] Comment on above: GFR estimated refere nce range: According to KDOQI guidelines, <60 ml/min/1.73m2 is sufficient to diagnose a patient with chronic kidney disease. Pharmacy Creatinine Clearance (Chem N/A [facility] Nucleated erythrocytes [Pres ence] in Blood by Automated countOrdered By: Tiarra Childs on 10-09-2022 Nucleated RBC Auto Ql (Bld) 0.1 /100{WBC} 0-0.5 [facility] Platelet mean volume Auto (B ld) [Entitic vol]Ordered By: Tiarra Childs on 10-09-2022 Platelet mean volume (Bld) [Entitic vol] 8.4 fL 6.3-10.7 [facility] Platelets Auto (Bld) [#/Vol] Ordered By: Tiarra Childs on 10-09-2022 Platelets (Bld) [#/Vol] 303 10*3/uL 150-450 [facility] Protein [Mass/volume] in Ser um or PlasmaOrdered By: Tiarra Childs on 10-09-2022 Protein [Mass/Vol] 6.4 g/dL 6.1-7.9 [facility] RBC Auto (Bld) [#/Vol]Ordere d By: Tiarra Childs on 10-09-2022 RBC (Bld) [#/Vol] 4.64 10*6/uL 3.60-5.00 [facility] Serum nuclear antibody titer Ordered By: Tiarra Childs on 10-09-2022 Nuclear Ab (S) [Titer] Positive . [facility] Comment on above: Negative <1:80 Borde rline 1:80 Positive >1:80 Serum or plasma alanine perry otransferase measurement without P-5'-P (enzymatic activiOrdered By: Tiarra Childs on 10-09-2022 ALT No additional P-5'-P [Catalytic activity/Vol] 12 U/L 10-60 [facility] Serum or plasma albumin/glob ulin mass ratioOrdered By: Tiarra Childs on 10-09-2022 Albumin/Globulin [Mass ratio] 1.8 {ratio} [facility] Serum or plasma alkaline blair sphatase measurement (enzymatic activity/volume)Ordered By: Tiarra Childs on 10-09-2022 ALP [Catalytic activity/Vol] 54 U/L 32-92 [facility] Serum or plasma amylase michael urement (enzymatic activity/volume)Ordered By: Tiarra Childs on 10-09-2022 Amylase [Catalytic activity/Vol] 63 U/L 28-100 [facility] Serum or plasma anion gap de terminationOrdered By: Tiarra Childs on 10-09-2022 Anion gap [Moles/Vol] 12.1 mmol/L 6.0-15.0 [facility] Serum or plasma aspartate am inotransferase measurement (enzymatic activity/volume)Ordered By: Tiarra Childs on 10-09-2022 AST [Catalytic activity/Vol] 20 U/L 10-42 [facility] Serum or plasma calcium michael urement (mass/volume)Ordered By: Tiarra Childs on 10-09-2022 Calcium [Mass/Vol] 9.6 mg/dL 8.2-10.2 [facility] Serum or plasma chloride mandeep surement (moles/volume)Ordered By: Tiarra Childs on 10-09-2022 Chloride [Moles/Vol] 102 mmol/L 95-114 [facility] Serum or plasma glucose michael urement (mass/volume)Ordered By: Tiarra Childs on 10-09-2022 Glucose [Mass/Vol] 66 mg/dL 70-100 [facility] Comment on above: ADA recommended refe rence rangeRandom Glucose Reference Range is dependent on time and content of last meal. Glucose of more than 200 mg/dL in a nonstressed, ambulatory subject supports the diagnosis of Diabetes Mellitus. Serum or plasma potassium me asurement (moles/volume)Ordered By: Tiarra Childs on 10-09-2022 Potassium [Moles/Vol] 3.9 mmol/L 3.5-5.1 [facility] Serum or plasma sodium measu rement (moles/volume)Ordered By: Tiarra Childs on 10-09-2022 Sodium [Moles/Vol] 138 mmol/L 136-146 [facility] Serum or plasma total biliru bin measurement (mass/volume)Ordered By: Tiarra Childs on 10-09-2022 Bilirubin [Mass/Vol] 1.1 mg/dL 0.3-1.2 [facility] Serum or plasma total carbon dioxide measurement (moles/volume)Ordered By: Tiarra Childs on 10-09-2022 CO2 [Moles/Vol] 27.8 mmol/L 22.0-30.0 [facility] Serum or plasma urea nitroge n measurement (mass/volume)Ordered By: Tiarra Childs on 10-09-2022 Urea nitrogen [Mass/Vol] 9 mg/dL - [facility] Serum speckled pattern antin uclear antibody (BRAVO) titerOrdered By: Tairra Childs on 10-09-2022 Speckled nuclear Ab pattern (S) [Titer] 1:80 . [facility] Comment on above: ICAP nomenclature: A C-2,4,5,29 TSH DL <= 0.005 mIU/L QnOrde red By: Tiarra Childs on 10-09-2022 TSH Qn 0.90 m[IU]/L 0.45-5.33 [facility] Thyroxine (T4) free [Mass/vo lume] in Serum or PlasmaOrdered By: Tiarra Childs on 10-09-2022 Free T4 [Mass/Vol] 0.76 ng/dL 0.61-1.12 [facility] Triiodothyronine (T3) Free [ Mass/volume] in Serum or PlasmaOrdered By: Tiarra Childs on 10-09-2022 Free T3 [Mass/Vol] 3.99 pg/mL 2.50-3.90 [facility] Urine microalbumin measureme nt with detection limit of 20 mg/L or less (mass/volume)Ordered By: Tiarra Childs on 10-09-2022 Albumin DL <= 20 mg/L (U) [Mass/Vol] 4.5 mg/dL 0.0-1.8 [facility] Urine microalbumin/creatinin e mass ratioOrdered By: Tiarra Childs on 10-09-2022 Albumin/Creatinine DL <= 20 mg/L (U) [Mass ratio] 36.0 mg/g 0.0-30.0 [facility] Comment on above: 30-300 mg/g indicate s an increased risk for diabetic nephropathy. Greater than 300 mg/g is consistent with clinical nephropathy. (Am. J. Kidney Disease 1995, 25:107) WBC Auto (Bld) [#/Vol]Ordere d By: Tiarra Childs on 10-09-2022 WBC (Bld) [#/Vol] 6.3 10*3/uL 3.8-11.6 [facility] CBC AUTO DIFFon 09-28-2022 BASO # 0.0 103/ul Normal 0.0-0.1 [facility] Comment on above: Performed By: #### C BC #### [facility] [address] [address] [address] Angelica Smith Basophils/100 WBC (Bld) 0.5 % Normal 0.2-2.0 [facility] Comment on above: Performed By: #### C BC #### [facility] [address] [address] [address] Angelica Smith EO # 0.1 103/ul Normal 0.0-0.7 [facility] Comment on above: Performed By: #### C BC #### [facility] [address] [address] [address] Angelica Smith Eosinophils/100 WBC (Bld) 1.6 % Normal 0.9-7.0 [facility] Comment on above: Performed By: #### C BC #### [facility] [address] [place] [address] Dr. Angelica Smith Erythrocyte distribution width (RBC) [Ratio] 12.4 % Normal 11.0-15.0 [facility] Comment on above: Performed By: #### C BC #### [facility] [address] [place] [address] Dr. Angelica Smith Hematocrit (Bld) [Volume fraction] 36.4 % Normal 36.0-48.0 [facility] Comment on above: Performed By: #### C BC #### [facility] [address] [place] [address] Dr. Angelica Smith Hemoglobin (Bld) [Mass/Vol] 13.3 g/dL Normal 12.0-16.0 [facility] Comment on above: Performed By: #### C BC #### [facility] [address] [place] [address] Dr. Angelica Smith IG # 0.01 10e3/ul Normal 0.00-0.03 [facility] Comment on above: Performed By: #### C BC #### [facility] [address] [place] [address] Dr. Angelica Smith IG % 0.2 % Normal 0.0-0.5 [facility] Comment on above: Performed By: #### C BC #### [facility] [address] [place] [address] Dr. Angelica Smith LYMPH # 2.0 103/ul Normal 1.2-3.8 [facility] Comment on above: Performed By: #### C BC #### [facility] [address] [place] [address] Dr. Angelica Smith Lymphocytes/100 WBC (Bld) 32.6 % Normal 20.5-60.0 [facility] Comment on above: Performed By: #### C BC #### [facility] [address] [place] [address] Dr. Angelica Smith MANUAL DIFF REQ NO Normal [facility] Comment on above: Performed By: #### C BC #### [facility] [address] [place] [address] Dr. Angelica Smith MCH (RBC) [Entitic mass] 30.3 pg Normal 26.7-34.0 [facility] Comment on above: Performed By: #### C BC #### [facility] [address] [place] [address] Dr. Angelica Smith MCHC (RBC) [Mass/Vol] 36.5 g/dL Critically high 29.9-35.2 [facility] Comment on above: Performed By: #### C BC #### [facility] [address] [place] [address] Dr. Angelica Smith MCV (RBC) [Entitic vol] 82.9 fL Normal 81.0-99.0 [facility] Comment on above: Performed By: #### C BC #### [facility] [address] [place] [address] Dr. Angelica Smith MONO # 0.4 103/ul Normal 0.3-0.8 [facility] Comment on above: Performed By: #### C BC #### [facility] [address] [place] [address] Dr. Angelica Smith Monocytes/100 WBC (Bld) 6.0 % Normal 1.7-12.0 [facility] Comment on above: Performed By: #### C BC #### [facility] [address] [place] [address] Dr. Angelica Smith NEUT # 3.7 103/ul Normal 1.4-6.5 [facility] Comment on above: Performed By: #### C BC #### [facility] [address] [place] [address] Dr. Angelica Smith Neutrophils/100 WBC (Bld) 59.1 % Normal 43.0-75.0 [facility] Comment on above: Performed By: #### C BC #### [facility] [address] [place] [address] Dr. Angelica Smith Platelet mean volume (Bld) [Entitic vol] 9.5 fL Normal 9.5-13.5 [facility] Comment on above: Performed By: #### C BC #### [facility] [address] [place] [address] Dr. Angelcia Smith PLT 313 103/ul Normal 150-450 [facility] Comment on above: Performed By: #### C BC #### [facility] [address] [place] [address] Dr. Angelica Smith RBC 4.39 106/ul Normal 4.20-5.40 [facility] Comment on above: Performed By: #### C BC #### [facility] [address] [place] [address] Dr. Angelica Smith WBC 6.2 103/ul Normal 4.0-11.0 [facility] Comment on above: Performed By: #### C BC #### [facility] [address] [place] [address] Dr. Angelica Smith ER URINE PROFILEon 3 Bilirubin Ql (U) Negative Normal NEGATIVE [facility] Comment on above: Performed By: #### TOREY OJEDARO #### [facility] [address] [place] [address] Dr. Angelica Smith Clarity (U) CLEAR Normal CLEAR [facility] Comment on above: Performed By: #### TOREY OJEDARO #### [facility] [address] [place] [address] Dr. Angelica Smith Color (U) LT. YELLOW Normal YELLOW [facility] Comment on above: Performed By: #### TOREY OJEDARO #### [facility] [address] [place] [address] Dr. Angelica Smith ERUBELA A micrscopic examina tion will be performed if indicated. Normal [facility] Comment on above: Performed By: #### TOREY OJEDARO #### [facility] [address] [place] [address] Dr. Angelica Smith Glucose Ql (U) Negative Normal NEGATIVE [facility] Comment on above: Performed By: #### TOREY OJEDARO #### [facility] [address] [place] [address] Dr. Angelica Smith Hemoglobin Ql (U) MODERATE Abnormal NEGATIVE [facility] Comment on above: Performed By: #### Gladis BUSBY UMICRO #### [facility] [address] [place] [address] Dr. Angelica Smith Ketones Ql (U) Negative Normal NEGATIVE [facility] Comment on above: Performed By: #### Gladis BUSBY, UMICRO #### [facility] [address] [place] [address] Dr. Angelica Smith LEUKOCYTES Negative Normal NEGATIVE [facility] Comment on above: Performed By: #### Gladis BUSBY UMICRO #### [facility] [address] [place] [address] Dr. Angelica Smith Nitrite Ql (U) Negative Normal NEGATIVE [facility] Comment on above: Performed By: #### Gladis BUSBY UMICRO #### [facility] [address] [place] [address] Dr. Angelica Smith pH (U) 7.0 [pH] Normal 5-9 [facility] Comment on above: Performed By: #### Gladis BUSBY UMICRO #### [facility] [address] [place] [address] Dr. Angelica Smith SPEC GRAVITY 1.010 Normal 1.005-<=1. 025 [facility] Comment on above: Performed By: #### Gladis BUSBY UMICRO #### [facility] [address] [place] [address] Dr. Angelica Smith UA PROTEIN Negative Normal NEGATIVE/ TRACE [facility] Comment on above: Performed By: #### Gladis BUSBY UMICRO #### [facility] [address] [place] [address] Dr. Angelica Smith UR MICRO IND INDICATED Normal [facility] Comment on above: Performed By: #### Gladis BUSBY UMICRO #### [facility] [address] [place] [address] Dr. Angelica Smith Urobilinogen Qn (U) 0.2 {Sujey'U}/dL Normal 0.2 - 1. 0 [facility] Comment on above: Performed By: #### HOSEA OJEDAICRO #### [facility] [address] [address] [address] Angelica Smith PREG QUANT HCGon 09-28-2022 HCG QUANT 1 mIU/mL Normal [facility] Comment on above: Performed By: #### B MEGHAN, PREGQNT ####[facility] [address] [address]. Angelica Smiht HCG RANGE SEE BELOW Normal [facility] Comment on above: Result Comment: 5-50 0.2-1 WEEK 50-500 1-2 WEEKS 100-5,000 2-3 WEEKS 500-10,000 3-4 WEEKS 1,000-50,000 4-5 WEEKS 10,000-100,000 5-6 WEEKS 15,000-200,000 6-8 WEEKS 10,000-100,000 2-3 MONTHS Performed By: #### B MEGHAN, PREGQNT ####[facility] [id number] [id number]. Angelica Smith PROF CHEM 8 (BAS METB)on Anion gap [Moles/Vol] 11.5 mmol/L Normal Th [facility] Comment on above: Performed By: #### B MEGHAN, PREGQNT #### [facility] [address] [place] [address] Dr. Angelica Smith Calcium [Mass/Vol] 9.0 mg/dL Normal 8.5-10.1 [facility] Comment on above: Performed By: #### B MEGHAN, PREGQNT #### [facility] [address] [place] [address] Dr. Angelica Smith Chloride [Moles/Vol] 104 mmol/L Normal 98-107 [facility] Comment on above: Performed By: #### B MEGHAN, PREGQNT #### [facility] [address] [place] [address] Dr. Angelica Smith CO2 [Moles/Vol] 27.0 mmol/L Normal 21.0-32.0 [facility] Comment on above: Performed By: #### B MEGHAN, PREGQNT #### [facility] [address] [place] [address] Dr. Angelica Smith Creatinine [Mass/Vol] 0.71 mg/dL Normal 0.55-1.02 [facility] Comment on above: Performed By: #### B MEGHAN, PREGQNT #### [facility] [address] [place] [address] Dr. Angelica Smith EGFR-AF SCOTTISH >60 Normal >=60 [facility] Comment on above: Performed By: #### B MEGHAN, PREGQNT #### [facility] [address] [address] [address] Angelica Smith EGFR-NON AF SCOTTISH >60 Normal >=60 [facility] Comment on above: Performed By: #### B MEGHAN, PREGQNT #### [facility] [address] [place] [address] Dr. Angelica Smith Glucose [Mass/Vol] 92 mg/dL Normal 74-106 [facility] Comment on above: Performed By: #### B MEGHAN, PREGQNT #### [facility] [address] [place] [address] Dr. Angelica Smith Potassium [Moles/Vol] 3.5 mmol/L Normal 3.5-5.1 [facility] Comment on above: Performed By: #### B MEGHAN, PREGQNT #### [facility] [address] [place] [address] Dr. Angelica Smith Sodium [Moles/Vol] 139 mmol/L Normal 136-145 [facility] Comment on above: Performed By: #### B MEGHAN, PREGQNT #### [facility] [address] [place] [address] Dr. Angelica Smith Urea nitrogen [Mass/Vol] 8.0 mg/dL Normal 7.0-18.0 [facility] Comment on above: Performed By: #### B MEGHAN, PREGQNT #### [facility] [address] [place] [address] Dr. Angelica Smith Urea nitrogen/Creatinine [Mass ratio] 11.3 mg/mg Normal [facility] Comment on above: Performed By: #### B MEGHAN, PREGQNT #### [facility] [address] [place] [address] Dr. Angelica Smith URINE MICROSCOPIC ONLYon BACTERIA NONE SEEN Normal NONE SEEN [facility] Comment on above: Performed By: #### Gladis BUSBY UMICRO #### [facility] [address] [place] [address] Dr. Angelica Smith Bacteria identified Cx Nom (U) NOT INDICATED Normal [facility] Comment on above: Performed By: #### E KEHINDE UMICRO #### [facility] [address] [place] [address] Dr. Angelica Smith CAST NONE SEEN Normal NONE SEEN [facility] Comment on above: Performed By: #### E KEHINDE UMICRO #### [facility] [address] [place] [address] Dr. Angelica Smith Crystals LM Nom (Urine sed) NONE SEEN Normal NONE SEEN [facility] Comment on above: Performed By: #### Gladis BUSBY UMICRO #### [facility] [address] [place] [address] Dr. Angelica Smith Epithelial cells LM Ql (Urine sed) FEW Abnormal NONE SEEN /RARE [facility] Comment on above: Performed By: #### Gladis BUSBY UMICRO #### [facility] [address] [place] [address] Dr. Angelica Smith MUCOUS NONE SEEN Normal NONE SEEN [facility] Comment on above: Performed By: #### Gladis BUSBY UMICRO #### [facility] [address] [place] [address] Dr. Angelica Smith RBC 0-2 Normal 0-2 [facility] Comment on above: Performed By: #### Gladis BUSBY UMICRO #### [facility] [address] [place] [address] Dr. Angelica Smith WBC NONE SEEN Normal NONE SEEN [facility] Comment on above: Performed By: #### E RUElan UMICRO #### [facility] [address] [place] [address] Dr. Angelica Smith PREG QUANT HCGon 09-24-2022 HCG QUANT 7 mIU/mL Normal [facility] Comment on above: Performed By: #### P REGQNT #### [facility] [address] [address] [address] Angelica Smith HCG RANGE SEE BELOW Normal [facility] Comment on above: Result Comment: 5-50 0.2-1 WEEK 50-500 1-2 WEEKS 100-5,000 2-3 WEEKS 500-10,000 3-4 WEEKS 1,000-50,000 4-5 WEEKS 10,000-100,000 5-6 WEEKS 15,000-200,000 6-8 WEEKS 10,000-100,000 2-3 MONTHS Performed By: #### P REGQNT #### [facility] [address] [place] [address] Dr. Angelica Smith PREG QUANT HCGon 09-22-2022 HCG QUANT 14 mIU/mL Normal [facility] Comment on above: Performed By: #### P REGQNT #### [facility] [address] [address] [address] Angelica Smith HCG RANGE SEE BELOW Normal [facility] Comment on above: Result Comment: 5-50 0.2-1 WEEK 50-500 1-2 WEEKS 100-5,000 2-3 WEEKS 500-10,000 3-4 WEEKS 1,000-50,000 4-5 WEEKS 10,000-100,000 5-6 WEEKS 15,000-200,000 6-8 WEEKS 10,000-100,000 2-3 MONTHS Performed By: #### P REGQNT #### [facility] [address] [place] [address] Dr. Angelica Smith Albumin [Mass/volume] in Ser um or PlasmaOrdered By: Donavon Yanes on 08-11-2022 Albumin [Mass/Vol] 4.0 g/dL 3.2-5.5 [facility] Bilirubin Test strip Ql (U)O rdered By: Donavon Yanes on 08-11-2022 Bilirubin Ql (U) Negative Negative [facility] Color Auto (U)Ordered By: Kunal Yanes on 08-11-2022 Color (U) Yellow Yellow [facility] Creatinine and Glomerular fi ltration rate.predicted panel (S/P/Bld)Ordered By: Donavon Yanes on 08-11-2022 Creatinine [Mass/Vol] 0.71 mg/dL 0.44-1.03 [facility] Direct bilirubin measurement Ordered By: Donavon Yanes on 08-11-2022 Bilirubin.direct [Mass/Vol] 0.2 mg/dL 0.0-0.4 [facility] Estimated glomerular filtrat ion rate (GFR) non- AmericanOrdered By: Donavon Yanes on 08-11-2022 GFR/1.73 sq M.predicted among non-blacks MDRD (S/P/Bld) [Vol rate/Area] > 60 mL/Min [facility] Globulin Calc (S) [Mass/Vol] Ordered By: Donavon Yanes on 08-11-2022 Globulin (S) [Mass/Vol] 2.9 g/dL F [facility] Ketones Auto test strip (U) [Mass/Vol]Ordered By: Donavon Yanes on 08-11-2022 Ketones (U) [Mass/Vol] Negative Negative Fi [facility] Nitrite Test strip Ql (U)Ord ered By: Donavon Yanes on 08-11-2022 Nitrite Ql (U) Negative Negative [facility] No Panel InformationOrdered By: Donavon Yanes on 08-11-2022 Estimated GFR () > 60 mL/Min [facility] Comment on above: GFR estimated refere nce range: According to KDOQI guidelines, <60 ml/min/1.73m2 is sufficient to diagnose a patient with chronic kidney disease. Pharmacy Creatinine Clearance (Chem N/A [facility] Protein Auto test strip (U) [Mass/Vol]Ordered By: Donavon Yanes on 08-11-2022 Protein (U) [Mass/Vol] Negative Negative [facility] Protein [Mass/volume] in Ser um or PlasmaOrdered By: Donavon Yanes on 08-11-2022 Protein [Mass/Vol] 6.9 g/dL 6.1-7.9 [facility] Serum or plasma alanine perry otransferase measurement without P-5'-P (enzymatic activiOrdered By: Donavon Yanes on 08-11-2022 ALT No additional P-5'-P [Catalytic activity/Vol] 12 U/L 10-60 [facility] Serum or plasma albumin/glob ulin mass ratioOrdered By: Donavon Yanes on 08-11-2022 Albumin/Globulin [Mass ratio] 1.4 {ratio} [facility] Serum or plasma alkaline blair sphatase measurement (enzymatic activity/volume)Ordered By: Donavon Yanes on 08-11-2022 ALP [Catalytic activity/Vol] 47 U/L 32-92 [facility] Serum or plasma anion gap de terminationOrdered By: Donavon Yanes on 08-11-2022 Anion gap [Moles/Vol] 8.3 mmol/L 6.0-15.0 [facility] Serum or plasma aspartate am inotransferase measurement (enzymatic activity/volume)Ordered By: Donavon Yanes on 08-11-2022 AST [Catalytic activity/Vol] 19 U/L 10-42 [facility] Serum or plasma calcium michael urement (mass/volume)Ordered By: Donavon Yanes on 08-11-2022 Calcium [Mass/Vol] 9.4 mg/dL 8.2-10.2 [facility] Serum or plasma chloride mandeep surement (moles/volume)Ordered By: Donavon Yanes on 08-11-2022 Chloride [Moles/Vol] 104 mmol/L 95-114 [facility] Serum or plasma glucose michael urement (mass/volume)Ordered By: Donavon Yanes on 08-11-2022 Glucose [Mass/Vol] 81 mg/dL 70-100 [facility] Comment on above: ADA recommended refe rence rangeRandom Glucose Reference Range is dependent on time and content of last meal. Glucose of more than 200 mg/dL in a nonstressed, ambulatory subject supports the diagnosis of Diabetes Mellitus. Serum or plasma non-glucuron idated bilirubin measurement (mass/volume)Ordered By: Donavon Yanes on 08-11-2022 Bilirubin.indirect [Mass/Vol] 2.0 mg/dL [facility] Serum or plasma potassium me asurement (moles/volume)Ordered By: Donavon Yanes on 08-11-2022 Potassium [Moles/Vol] 3.9 mmol/L 3.5-5.1 [facility] Serum or plasma sodium measu rement (moles/volume)Ordered By: Donavon Yanes on 08-11-2022 Sodium [Moles/Vol] 135 mmol/L 136-146 [facility] Serum or plasma total biliru bin measurement (mass/volume)Ordered By: Donavon Yanes on 08-11-2022 Bilirubin [Mass/Vol] 2.2 mg/dL 0.3-1.2 [facility] Comment on above: Samples from patient s who have taken Naproxen have shown spurious elevation in Total Bilirubin levels. A metabolite of Naproxen, O-desmethylnaproxen, has been shown to interfere with the Oren-Jarek method for measuring Total Bilirubin. Serum or plasma total carbon dioxide measurement (moles/volume)Ordered By: Donavon Yanes on 08-11-2022 CO2 [Moles/Vol] 26.6 mmol/L 22.0-30.0 [facility] Serum or plasma urea nitroge n measurement (mass/volume)Ordered By: Donavon Yanes on 08-11-2022 Urea nitrogen [Mass/Vol] 10 mg/dL 9-23 [facility] Specific gravity Auto test s trip (U) [Rel density]Ordered By: Donavon Yanes on 08-11-2022 Specific gravity (U) [Rel density] 1.007 1.001-1.03 0 [facility] Urine clarity by refractomet ry automatedOrdered By: Donavno Yanes on 08-11-2022 Clarity Refractometry automated (U) Clear Clear [facility] Urine glucose measurement by automated test strip (mass/volume)Ordered By: Donavon Yanes on 08-11-2022 Glucose Auto test strip (U) [Mass/Vol] Normal mg/dL Normal [facility] Urine hemoglobin detection b y automated test stripOrdered By: Donavon Yanes on 08-11-2022 Hemoglobin Auto test strip Ql (U) Negative Negative [facility] Urine leukocyte esterase det ection by automated test stripOrdered By: Donavon Yanes on 08-11-2022 Leukocyte esterase Auto test strip Ql (U) Negative Negative [facility] Urobilinogen Auto test strip (U) [Mass/Vol]Ordered By: Donavon Yanes on 08-11-2022 Urobilinogen (U) [Mass/Vol] Normal mg/dL Normal [facility] pH Auto test strip (U)Ordere d By: Donavon Yanes on 08-11-2022 pH (U) 6.0 [pH] 5.0-9.0 [facility] Albumin [Mass/volume] in Ser um or PlasmaOrdered By: Donavon Yanes on 06-18-2022 Albumin [Mass/Vol] 4.2 g/dL 3.2-5.5 [facility] Basophils Auto (Bld) [#/Vol] Ordered By: Donavon Yanes on 06-18-2022 Basophils (Bld) [#/Vol] 0.0 10*3/uL 0.0-0.2 [facility] Basophils/100 WBC Auto (Bld) Ordered By: Donavon Yanes on 06-18-2022 Basophils/100 WBC (Bld) 0.5 % . F [facility] Blood hemoglobin measurement (mass/volume)Ordered By: Donavon Yanes on 06-18-2022 Hemoglobin (Bld) [Mass/Vol] 13.3 g/dL 11.8-15.4 [facility] Blood leukocytes automated c ount (number/volume)Ordered By: Donavon Yanes on 06-18-2022 WBC (Bld) [#/Vol] 6.9 10*3/uL 4.5-11.0 [facility] Cholesterol [Mass/volume] in Serum or PlasmaOrdered By: Donavon Yanes on 06-18-2022 Cholesterol [Mass/Vol] 143 mg/dL 140-200 [facility] Comment on above: Chol less than 200 m g/dl low riskChol 201-239 mg/dl borderline riskChol 240 mg/dl and greater high risk Cholesterol in LDL Calc [Mas s/Vol]Ordered By: Donavon Yanes on 06-18-2022 Cholesterol in LDL [Mass/Vol] 83 mg/dL 0-100 [facility] Comment on above: LDL ATP III CLASSIFI CATIONLDL less than 100 mg/dL OptimalLDL 100-129 mg/dL Near or above optimalLDL 130-159 mg/dL Borderline highLDL 160-189 mg/dL HighLDL greater than 189 mg/dL Very high Cholesterol in VLDL Calc [Ma ss/Vol]Ordered By: Donavon Yanes on 06-18-2022 Cholesterol in VLDL [Mass/Vol] 14 mg/dL [facility] Creatinine [Mass/volume] in UrineOrdered By: Donavon Yanes on 06-18-2022 Creatinine (U) [Mass/Vol] 113.4 mg/dL [facility] Comment on above: No reference range e stablished Creatinine and Glomerular fi ltration rate.predicted panel (S/P/Bld)Ordered By: Donavon Yanes on 06-18-2022 Creatinine [Mass/Vol] 0.70 mg/dL 0.44-1.03 [facility] Eosinophils Auto (Bld) [#/Vo l]Ordered By: Donavon Yanes on 06-18-2022 Eosinophils (Bld) [#/Vol] 0.1 10*3/uL 0.0-0.45 [facility] Eosinophils/100 WBC Auto (Bl d)Ordered By: Donavon Yanes on 06-18-2022 Eosinophils/100 WBC (Bld) 0.9 % . [facility] Erythrocyte distribution wid th Auto (RBC) [Ratio]Ordered By: Donavon Yanes on 06-18-2022 Erythrocyte distribution width (RBC) [Ratio] 12.4 % 11.9-15.3 [facility] Estimated glomerular filtrat ion rate (GFR) non- AmericanOrdered By: Donavon Yanes on 06-18-2022 GFR/1.73 sq M.predicted among non-blacks MDRD (S/P/Bld) [Vol rate/Area] > 60 mL/Min [facility] Globulin Calc (S) [Mass/Vol] Ordered By: Donavon Yanes on 06-18-2022 Globulin (S) [Mass/Vol] 2.5 g/dL F [facility] Glucose mean value [Mass/vol ume] in Blood Estimated from glycated hemoglobinOrdered By: Donavon Yanes on 06-18-2022 Average glucose Estimated from glycated hemoglobin (Bld) [Mass/Vol] 100 mg/dL [facility] Hematocrit Auto (Bld) [Volum e fraction]Ordered By: Donavon Yanes on 06-18-2022 Hematocrit (Bld) [Volume fraction] 39.3 % 34.0-46.4 [facility] Hemoglobin A1c percentageOrd ered By: Donavon Yanes on 06-18-2022 HbA1c (Bld) [Mass fraction] 5.1 % 4.3-5.6 [facility] Comment on above: Increased risk for d iabetes: 5.7 - 6.4diabetes: >6.4glycemic control for adults with diabetes: <7.0 Laboratory - Hematology and Cell countsOrdered By: Donavon Yanes on 06-18-2022 Nucleated RBC/100 WBC (Bld) [Ratio] 0.1 % 0-0.5 [facility] Lymphocytes Auto (Bld) [#/Vo l]Ordered By: Donavon Yanes on 06-18-2022 Lymphocytes (Bld) [#/Vol] 1.9 10*3/uL 1.00-4.8 [facility] Lymphocytes/100 WBC Auto (Bl d)Ordered By: Donavon Yanes on 06-18-2022 Lymphocytes/100 WBC (Bld) 27.9 % . [facility] MCH Auto (RBC) [Entitic mass ]Ordered By: Donavon Yanes on 06-18-2022 MCH (RBC) [Entitic mass] 30.5 pg 24.7-34.3 [facility] MCHC Auto (RBC) [Mass/Vol]Or dered By: Donavon Yanes on 06-18-2022 MCHC (RBC) [Mass/Vol] 33.7 g/dL 32.0-35.0 [facility] MCV Auto (RBC) [Entitic vol] Ordered By: Donavon Yanes on 06-18-2022 MCV (RBC) [Entitic vol] 90.2 fL 80-100 [facility] Monocytes Auto (Bld) [#/Vol] Ordered By: Donavon Yanes on 06-18-2022 Monocytes (Bld) [#/Vol] 0.3 10*3/uL 0.0-0.8 [facility] Monocytes/100 WBC Auto (Bld) Ordered By: Donavon Yanes on 06-18-2022 Monocytes/100 WBC (Bld) 4.9 % . [facility] Neutrophils Auto (Bld) [#/Vo l]Ordered By: Donavon Yanes on 06-18-2022 Neutrophils (Bld) [#/Vol] 4.6 10*3/uL 1.8-7.7 [facility] Neutrophils/100 WBC Auto (Bl d)Ordered By: Donavon Yanes on 06-18-2022 Neutrophils/100 WBC (Bld) 65.8 % . [facility] No Panel InformationOrdered By: Donavon Yanes on 06-18-2022 Estimated GFR () > 60 mL/Min [facility] Comment on above: GFR estimated refere nce range: According to KDOQI guidelines, <60 ml/min/1.73m2 is sufficient to diagnose a patient with chronic kidney disease. Pharmacy Creatinine Clearance (Chem N/A [facility] Platelet mean volume Auto (B ld) [Entitic vol]Ordered By: Donavon Yanes on 06-18-2022 Platelet mean volume (Bld) [Entitic vol] 8.8 fL 6.3-10.7 [facility] Platelets Auto (Bld) [#/Vol] Ordered By: Donavon Yanes on 06-18-2022 Platelets (Bld) [#/Vol] 307 10*3/uL 150-450 [facility] Protein [Mass/volume] in Ser um or PlasmaOrdered By: Donavon Yanes on 06-18-2022 Protein [Mass/Vol] 6.7 g/dL 6.1-7.9 [facility] RBC Auto (Bld) [#/Vol]Ordere d By: Donavon Yanes on 06-18-2022 RBC (Bld) [#/Vol] 4.36 10*6/uL 3.60-5.00 [facility] Serum or plasma alanine perry otransferase measurement without P-5'-P (enzymatic activiOrdered By: Donavon Yanes on 06-18-2022 ALT No additional P-5'-P [Catalytic activity/Vol] 14 U/L 10-60 [facility] Serum or plasma albumin/glob ulin mass ratioOrdered By: Donavon Yanes on 06-18-2022 Albumin/Globulin [Mass ratio] 1.7 {ratio} [facility] Serum or plasma alkaline blair sphatase measurement (enzymatic activity/volume)Ordered By: Donavon Yanes on 06-18-2022 ALP [Catalytic activity/Vol] 49 U/L 32-92 [facility] Serum or plasma anion gap de terminationOrdered By: Donavon Yanes on 06-18-2022 Anion gap [Moles/Vol] 10.0 mmol/L 6.0-15.0 [facility] Serum or plasma aspartate am inotransferase measurement (enzymatic activity/volume)Ordered By: Donavon Yanes on 06-18-2022 AST [Catalytic activity/Vol] 19 U/L 10-42 [facility] Serum or plasma calcium michael urement (mass/volume)Ordered By: Donavon Yanes on 06-18-2022 Calcium [Mass/Vol] 9.4 mg/dL 8.2-10.2 [facility] Serum or plasma chloride mandeep surement (moles/volume)Ordered By: Donavon Yanes on 06-18-2022 Chloride [Moles/Vol] 103 mmol/L 95-114 [facility] Serum or plasma glucose michael urement (mass/volume)Ordered By: Donavon Yanes on 06-18-2022 Glucose [Mass/Vol] 86 mg/dL 70-100 [facility] Comment on above: ADA recommended refe rence rangeRandom Glucose Reference Range is dependent on time and content of last meal. Glucose of more than 200 mg/dL in a nonstressed, ambulatory subject supports the diagnosis of Diabetes Mellitus. Serum or plasma high density lipoprotein (HDL) cholesterol measurementOrdered By: Donavon Yanes on 06-18-2022 Cholesterol in HDL [Mass/Vol] 46 mg/dL 35-85 [facility] Comment on above: HDL CHOL ATP-III CLA SSIFICATION Cardiovascular RiskHDL > or equal to 60 mg/dL LOWHDL < 40 mg/dL HIGH Serum or plasma potassium me asurement (moles/volume)Ordered By: Donavon Yanes on 06-18-2022 Potassium [Moles/Vol] 3.7 mmol/L 3.5-5.1 [facility] Serum or plasma sodium measu rement (moles/volume)Ordered By: Donavon Yanes on 06-18-2022 Sodium [Moles/Vol] 136 mmol/L 136-146 [facility] Serum or plasma total biliru bin measurement (mass/volume)Ordered By: Donavon Yanes on 06-18-2022 Bilirubin [Mass/Vol] 1.9 mg/dL 0.3-1.2 [facility] Comment on above: Samples from patient s who have taken Naproxen have shown spurious elevation in Total Bilirubin levels. A metabolite of Naproxen, O-desmethylnaproxen, has been shown to interfere with the Oren-Jarek method for measuring Total Bilirubin. Serum or plasma total carbon dioxide measurement (moles/volume)Ordered By: Donavon Yanes on 06-18-2022 CO2 [Moles/Vol] 26.7 mmol/L 22.0-30.0 [facility] Serum or plasma total choles terol/high density lipoprotein (HDL) cholesterol mass ratOrdered By: Donavon Yanes on 06-18-2022 Cholesterol.total/Choles terol in HDL [Mass ratio] 3.1 {ratio} <5.0 [facility] Serum or plasma urea nitroge n measurement (mass/volume)Ordered By: Donavon Yanes on 06-18-2022 Urea nitrogen [Mass/Vol] 5 mg/dL 9- [facility] TSH DL <= 0.005 mIU/L QnOrde red By: Donavon Yanes on 06-18-2022 TSH Qn 0.74 m[IU]/L 0.45-5.33 [facility] Thyroxine (T4) free [Mass/vo lume] in Serum or PlasmaOrdered By: Donavon Yanes on 06-18-2022 Free T4 [Mass/Vol] 0.86 ng/dL 0.61-1.12 [facility] Triglyceride [Mass/volume] i n Serum or PlasmaOrdered By: Donavon Yanes on 06-18-2022 Triglyceride [Mass/Vol] 70 mg/dL 35-149 [facility] Comment on above: TRIG ATP III CLASSIF [...] 20 mg/L (U) [Mass/Vol] 67.2 mg/dL 0.0-1.8 [facility] Urine microalbumin/creatinin e mass ratioOrdered By: Donavon Yanes on 06-18-2022 Albumin/Creatinine DL <= 20 mg/L (U) [Mass ratio] 592.0 mg/g 0.0-30.0 [facility] Comment on above: 30-300 mg/g indicate s an increased risk for diabetic nephropathy. Greater than 300 mg/g is consistent with clinical nephropathy. (Am. J. Kidney Disease 1995, 25:107) PAP ACOG PANEL 2: 21 to 28on 03-19-2022 . . Normal [facility] Comment on above: Performed By: #### [id number] #### [facility] [address] [address] [address] Angelica Smith Age Gdln ACOG Testing - Normal [facility] Comment on above: Performed By: [id number] #### [facility] [address] [address] [address] Angelica Smith DIAGNOSIS: Comment [facility] Comment on above: Result Comment: NEGA TIVE FOR INTRAEPITHELIAL LESION OR MALIGNANCY. Performed By: [id number] #### [facility] [address] [address] [address] Angelica Smith Methodology: Comment [facility] Comment on above: Result Comment: This liquid based ThinPrep(R) pap test was screened with the use of an image guided system. Performed By: #### [id number] #### [facility] [address] [address] [address] Angelica Smith Note: Comment [facility] Comment on above: Result Comment: The Pap smear is a screening test designed to aid in the detection of premalignant and malignant conditions of the uterine cervix. It is not a diagnostic procedure and should not be used as the sole means of detecting cervical cancer. Both false-positive and false-negative reports do occur. . Performed By: [id number] #### [facility] [address] [place] [address] Dr. Angelica Smith Performed by: Comment [facility] Comment on above: Result Comment: Sherry Torres, Compressed Yeast Supervisor (ASCP) Performed By: [id number] #### [facility] [address] [place] [address] Dr. Angelica Smith Reflex Criteria: Comment [facility] Comment on above: Result Comment: The HPV DNA reflex criteria were not met with this specimen result therefore, no HPV testing was performed. . Performed By: #### [id number] #### [facility] [address] [place] [address] Dr. Angelica Smith Specimen adequacy: Comment [facility] Comment on above: Result Comment: Sati sfactory for evaluation. Endocervical and/or squamous metaplastic cells (endocervical component) are present. Performed By: #### [id number] #### [facility] [address] [place] [address] Dr. Angelica Smith Vital Signs Date Time Vital Sign Value Performing Clinician Facility 05-23-2024 12:00-0400 Body temperature 97.7 [degF] SODDER-C Raeann Ch Work Phone: [facility] 05-23-2024 12:00-0400 Diastolic blood pressure 63 mm[Hg] SODDER-C Raeann Ch Work Phone: [facility] 05-23-2024 12:00-0400 Heart rate 74 /min SODDER-C Raeann Ch Work Phone: [facility] 05-23-2024 12:00-0400 Respiratory rate 16 /min SODDER-C Raeann Ch Work Phone: [facility] 05-23-2024 12:00-0400 SaO2% (BldA) [Mass fraction] 98 % SODDER-C Raeann Ch Work Phone: [facility] 05-23-2024 12:00-0400 Systolic blood pressure 95 mm[Hg] SODDER-C Raeann Warchol Work Phone: [facility] 05-23-2024 11:36-0400 Body height 175.26 cm SODDER-C Raeann Warchol Work Phone: [facility] 05-23-2024 11:36-0400 Body weight 62.14 kg SODDER-C Raeann Warchol Work Phone: [facility] 10-21-2023 09:48-0500 Body height 175.3 cm Raeann Warchol SODDER Work Phone: [facility] 10-21-2023 09:48-0500 Body mass index (BMI) [Ratio] 19.05 kg/m2 Raeann Warchol SODDER Work Phone: [facility] 10-21-2023 09:48-0500 Body temperature 98.2 [degF] Raeann Warchol SODDER Work Phone: [facility] 10-21-2023 09:48-0500 Body weight 58.51 kg Raeann Warchol SODDER Work Phone: [facility] 10-21-2023 09:48-0500 Diastolic blood pressure 60 mm[Hg] Raeann Warchol SODDER Work Phone: [facility] 10-21-2023 09:48-0500 Heart rate 81 /min Raeann Warchol SODDER Work Phone: [facility] 10-21-2023 09:48-0500 SaO2% (BldA) [Mass fraction] 100 % Raeann Warchol SODDER Work Phone: [facility] 10-21-2023 09:48-0500 Systolic blood pressure 112 mm[Hg] Raeann Warchol SODDER Work Phone: [facility] 04-10-2022 10:10-0400 Body height 172.72 cm Kirstin Hernandez Other [facility] [employer] Other 04-10-2022 10:10-0400 Body mass index (BMI) [Ratio] 20.37 kg/m2 Kirstin Hernandez Other [employer] Other 04-10-2022 10:10-0400 Body temperature 98.1 [degF] Kirstin Hernandez Other [employer] Other 04-10-2022 10:10-0400 Body weight 60.78 kg Kirstin Hernandez Other [employer] Other 04-10-2022 10:10-0400 Diastolic blood pressure 62 mm[Hg] Kirstin Hernandez Other [employer] Other 04-10-2022 10:10-0400 Respiratory rate 16 /min Kirstin Hernandez Other [employer] Other 04-10-2022 10:10-0400 SaO2% (BldA) [Mass fraction] 98 % Kirstin Hernandez Other [employer] Other 04-10-2022 10:10-0400 Systolic blood pressure 104 mm[Hg] Kirstin Hernandez Other [employer] Other 01-02-2022 11:10-0400 Body height 172.72 cm Kirstin Hernandez Other [employer] Other 01-02-2022 11:10-0400 Body mass index (BMI) [Ratio] 21.59 kg/m2 Kirstin Hernandez Other [employer] Other 01-02-2022 11:10-0400 Body temperature 98 [degF] Kirstin Hernandez Other [employer] Other 01-02-2022 11:10-0400 Body weight 64.41 kg Kirstin Hernandez Other [employer] Other 01-02-2022 11:10-0400 Diastolic blood pressure 68 mm[Hg] Kirstin Hernandez Other [employer] Other 01-02-2022 11:10-0400 Respiratory rate 16 /min Kirstin Hernandez Other [employer] Other 01-02-2022 11:10-0400 SaO2% (BldA) [Mass fraction] 99 % Kirstin Hernandez Other [employer] Other 01-02-2022 11:10-0400 Systolic blood pressure 104 mm[Hg] Kirstin Hernandez Other [employer] Other 09-03-2021 11:10-0500 Body height 172.72 cm Kirstin Hernandez Other [employer] Other 09-03-2021 11:10-0500 Body mass index (BMI) [Ratio] 21.89 kg/m2 Kirstin Hernandez Other [employer] Other 09-03-2021 11:10-0500 Body temperature 97.3 [degF] Kirstin Hernandez Other [employer] Other 09-03-2021 11:10-0500 Body weight 65.32 kg Kirstin Hernandez Other [employer] Other 09-03-2021 11:10-0500 Diastolic blood pressure 60 mm[Hg] Kirstin Hernandez Other [employer] Other 09-03-2021 11:10-0500 SaO2% (BldA) [Mass fraction] 95 % Kirstin Hernandez Other [employer] Other 09-03-2021 11:10-0500 Systolic blood pressure 104 mm[Hg] Kirstin Hernandez Other [employer] Other 07-07-2021 14:00-0400 Body height 172.72 cm Kirstin Hernandez Other [employer] Other 07-07-2021 14:00-0400 Body mass index (BMI) [Ratio] 22.04 kg/m2 Kirstin Cortezfredy Other [employer] Other 07-07-2021 14:00-0400 Body temperature 98.1 [degF] Kirstin Hernandez Other [employer] Other 07-07-2021 14:00-0400 Body weight 65.77 kg Kirstin Hernandez Other [employer] Other 07-07-2021 14:00-0400 Diastolic blood pressure 70 mm[Hg] Kirstin Diegofredy Other [employer] Other 07-07-2021 14:00-0400 Respiratory rate 18 /min Kirstin Hernandez Other [employer] Other 07-07-2021 14:00-0400 SaO2% (BldA) [Mass fraction] 99 % Kirstin Hernandez Other [employer] Other 07-07-2021 14:00-0400 Systolic blood pressure 110 mm[Hg] Kirstin Hernandez Other [employer] Other Encounters Encounter Date Encounter Type Care Provider Facility Start: 06-19-2024 End: 06-19-2024 ambulatory JHONATHAN PEDRAZA Not Available Start: 05-26-2024 End: 05-26-2024 ambulatory ROHAN CHAUHAN Not Available Start: 05-23-2024 End: 05-23-2024 Patient encounter procedure UNA Ch Work Phone: [facility] - [facility] Start: 05-23-2024 End: 05-23-2024 ambulatory SODDER-C Raeann Ch Work Phone: [facility] Work Phone: Start: 05-22-2024 End: 05-22-2024 ambulatory Raeann Ch Facility:[facility] Start: 04-14-2024 End: 04-14-2024 ambulatory Clarisa Kelley RASHID [place] [place] Start: 03-30-2024 End: 03-30-2024 ambulatory GNINY CUELLO Not Available Start: 03-30-2024 End: 03-30-2024 Patient encounter procedure SODDER-C Raeann Brianchol Work Phone: [facility] [place] Work Phone: Start: 03-30-2024 End: 03-30-2024 ambulatory SODDER-C Raeann Brianchol Work Phone: [facility] Work Phone: Start: 03-27-2024 End: 03-27-2024 ambulatory JHONATHAN TALIA Not Available Start: 02-28-2024 End: 02-28-2024 ambulatory JHONATHAN TALIA Not Available Start: 02-04-2024 End: 02-04-2024 ambulatory RAEANN WARCHOL Not Available Start: 12-21-2023 End: 12-21-2023 ambulatory ESME Allie MADELYN Not Available Start: 12-15-2023 ambulatory [facility] Work Phone: Start: 12-15-2023 Non-patient / [facility] Work Phone: Start: 10-21-2023 End: 10-21-2023 ambulatory RAEANN BRIANCHOL Not Available Start: 10-21-2023 End: 10-21-2023 Office outpatient visit 15 minutes Raeann Ch SODDER Work Phone: [facility] Comment on above: Attention-deficit hy peractivity disorder, other type (CMS/HCC) (Primary Dx); Bilateral impacted cerumen Start: 09-02-2023 End: 09-02-2023 ambulatory Tyler Armstrong Facility:[facility] Start: 08-31-2023 End: 08-31-2023 ambulatory RAEANN WARCHOL Not Available Start: 08-19-2023 End: 08-19-2023 Patient encounter procedure [facility] Work Phone: [facility] Start: 08-19-2023 End: 08-19-2023 ambulatory [facility] Work Phone: [facility] Work Phone: Start: 08-18-2023 End: 08-18-2023 ambulatory RAEANN WARCHOL Not Available Start: 08-10-2023 End: 08-10-2023 Patient encounter procedure [facility] Work Phone: [facility] [place] Work Phone: Start: 08-10-2023 End: 08-10-2023 ambulatory [facility] Work Phone: [facility] Work Phone: Start: 08-01-2023 End: 08-01-2023 ambulatory GINNY RAMESH Not Available Start: 07-20-2023 End: 07-20-2023 Patient encounter procedure [facility] Work Phone: [facility] [place] Work Phone: Start: 07-20-2023 End: 07-20-2023 ambulatory [facility] Work Phone: [facility] Work Phone: Start: 05-27-2023 End: 05-27-2023 ambulatory [facility] Work Phone: [facility] Work Phone: Start: 05-27-2023 End: 05-27-2023 Patient encounter procedure [facility] Work Phone: [facility] [place] Work Phone: Start: 01-12-2023 End: 01-12-2023 ambulatory Services [facility] Work Phone: [facility] Work Phone: Start: 01-12-2023 End: 01-12-2023 Departed Referred Services [facility] Work Phone: [facility] Start: 12-09-2022 End: 12-09-2022 ambulatory DO Kirstin Hernandez Work Phone: [facility] Work Phone: Start: 12-09-2022 End: 12-09-2022 Departed Referred DO Kirstin Hernandez Work Phone: [facility] Start: 12-04-2022 End: 12-04-[address] JHONATHAN PEDRAZA . Facility:[facility] Start: 11-26-2022 Encounter for other preprocedural examination DR JHONATHAN PEDRAZA . [facility] Start: 11-26-2022 End: 11-26-2022 ambulatory DO Kirstin Hernandez Work Phone: [facility] Work Phone: Start: 11-26-2022 End: 11-26-2022 Patient encounter procedure DO Kirstin Hernandez Work Phone: [facility]-CT Scan [place] Work Phone: Start: 11-24-2022 End: 11-25-2022 ambulatory PRIMITIVO ROSALESER Facility:[facility] Start: 11-24-2022 End: 11-25-2022 Encounter for other preprocedural examination PRIMITIVO ROSALESER Facility:[facility] Start: 10-29-2022 End: 10-29-2022 ambulatory DO Kirstin Hernandez Work Phone: [facility] Work Phone: Start: 10-29-2022 End: 10-29-2022 Patient encounter procedure DO Kirstin Hernandez Work Phone: [facility]-Ultrasound [facility] [place] Work Phone: Start: 10-20-2022 End: 10-20-2022 ambulatory DO Kirstin Hernandez Work Phone: [facility] Work Phone: Start: 10-20-2022 End: 10-20-2022 Departed Referred DO Kirstin Hernandez Work Phone: [facility] Start: 10-09-2022 End: 10-09-2022 Departed Referred DO Kirstin Hernandez Work Phone: [facility] Start: 10-02-[address] JHONATHAN PEDRAZA . Facili ty:[facility] Start: 09-29-[address] JHONATHAN PEDRAZA . Facili ty:[facility] Start: 09-28-2022 End: 09-28-2022 ambulatory HUMPHREY HOLLAND Facility:[facility] Start: 09-23-[address] JHONATHAN PEDRAZA . Facili ty:[facility] Start: 09-22-2022 End: 10-20-[address] JHONATHAN PEDRAZA . Facility:[facility] Start: 08-11-2022 End: 08-11-2022 ambulatory DO Kirstin Hernandez Work Phone: [facility] Work Phone: Start: 08-11-2022 End: 08-11-2022 Patient encounter procedure DO Kirstin Hernandez Work Phone: [facility] Start: 08-04-2022 End: 08-04-2022 ambulatory Kirstin Hernandez Other [employer] Other Start: 08-04-2022 Telephone encounter Kirstin Hernandez [facility] Start: 06-25-[address] JHONATHAN PEDRAZA . Facili ty:[facility] Start: 06-18-2022 End: 06-18-2022 ambulatory DO Kirstin Hernandez Work Phone: [facility] Work Phone: Start: 06-18-2022 End: 06-18-2022 Patient encounter procedure DO Kirstin Hernandez Work Phone: [facility] [place] Start: 06-12-[address] JHONATHAN PEDRAZA . Facili ty:[facility] Start: 06-08-[address] JHONATHAN PEDRAZA . Facili ty:[facility] Start: 04-14-2022 End: 04-14-2022 ambulatory Kirstin Hernandez Other [employer] Other Start: 04-14-2022 Telephone encounter Kirstin Hernandez [facility] Start: 04-10-2022 End: 04-10-2022 ambulatory Kirstin Hernandez Other [employer] Other Start: 04-10-2022 Office outpatient vi sit 15 minutes Kirstni Hernandez [facility] Start: 03-24-[address] KIRSTIN HERNANDEZ Facilit y:[facility] Start: 03-16-2022 End: 03-16-[address] JHONATHAN PEDRAZA . Facility:[facility] Start: 03-10-2022 End: 03-10-2022 ambulatory Kirstin Hernandez Other [employer] Other Start: 03-10-2022 Telephone encounter Kirstin Hernandez [facility] Start: 01-02-2022 End: 01-02-2022 ambulatory Kirstin Hernandez Other [employer] Other Start: 01-02-2022 Office outpatient vi sit 25 minutes Kirstin Hernandez [facility] [place] Start: 01-02-2022 Telephone encounter Kirstin Hernandez [facility] Start: 12-08-2021 End: 12-08-2021 ambulatory Kirstin Hernandez Other [employer] Other Start: 12-08-2021 Telephone encounter Kirstin Hernandez [facility] Start: 12-02-2021 End: 12-02-2021 ambulatory Kirstin Hernandez Other [employer] Other Start: 12-02-2021 Telephone encounter Kirstin Hernandez [facility] Start: 09-03-2021 End: 09-03-2021 ambulatory Kirstin Hernandez Other [employer] Other Start: 09-03-2021 Office outpatient vi sit 15 minutes Kirstin Hernandez [facility] Start: 07-07-2021 Office outpatient vi sit 15 minutes Kirstin Hernandez [facility] Procedures Date Procedure Procedure Detail Performing Clinician Start: 03-30-2024 Respiratory Panel (PCR) SODDER-C Raeann Ch Work Phone: Start: 08-10-2023 Respiratory Panel (PCR) Services [facility] Work Phone: Start: 12-09-2022 Respiratory Panel (PCR) DO Kirstin Hernandez Work Phone: Start: 11-26-2022 Computed tomography of abdomen and pelvis with contrast DO Kirstin Hernandez Work Phone: Start: 10-29-2022 Ultrasonography of b ilateral kidneys DO Kirstin Hernandez Work Phone: Start: 10-29-2022 US scan of gallbladder DO Kirstin Hernandez Work Phone: Plan of Treatment Date Care Activity Detail Author Start: 05-23-2024 [facility] Start: 05-23-2024 Hospital admission [facility] Start: 12-15-2023 Patient referral [facility] Work Phone: Start: 01-12-2023 Bacteria identified in Urine by Culture Urine Culture [facility] 17-Hydroxyprogestero ne [Mass/volume] in Serum or Plasma [facility] Alternaria alternata IgE Ab [Units/volume] in Serum [facility] Singaporean house dust mite IgE Ab [Units/volume] in Serum [facility] Singaporean Drexel Ig E Ab [Units/volume] in Serum [facility] Androstenedione [Mass/volume] in Serum or Plasma [facility] Aspergillus fumigatu s IgE Ab [Units/volume] in Serum [facility] Shaffer's yeast IgE Ab [Units/volume] in Serum [facility] Banana IgE Ab [Units/volume] in Serum [facility] Barley IgE Ab [Units/volume] in Serum [facility] Beef IgE Ab [Units/v olume] in Serum [facility] Bermuda grass IgE Ab [Units/volume] in Serum [facility] Boxelder IgE Ab [Units/volume] in Serum [facility] Cat dander IgG Ab [Units/volume] in Serum [facility] Cheese cheddar type IgE Ab [Units/volume] in Serum [facility] Chicken meat IgE Ab [Units/volume] in Serum [facility] Cladosporium herbaru m IgE Ab [Units/volume] in Serum [facility] Cockroach IgE Ab [Units/volume] in Serum [facility] Common Ragweed IgE A b [Units/volume] in Serum [facility] [place] IgE Ab [Units/v olume] in Serum [facility] [place] IgE Ab [Units/volume] in Serum [facility] Cow milk IgE Ab [Units/volume] in Serum [facility] Dog dander IgE Ab [Units/volume] in Serum [facility] Egg white IgE Ab [Units/volume] in Serum [facility] Estradiol (E2) [Mass/volume] in Serum or Plasma [facility] house dust mite IgE Ab [Units/volume] in Serum [facility] Gluten IgE Ab [Units/volume] in Serum [facility] HLA DQ antigen typing [facility] IgE [Units/volume] i n Serum or Plasma [facility] Insulin [Units/volum e] in Serum or Plasma [facility] Insulin [Units/volum e] in Serum or Plasma [facility] Lutropin [Units/volu me] in Serum or Plasma [facility] Mountain Juniper IgE Ab [Units/volume] in Serum [facility] Mouse urine proteins IgE Ab [Units/volume] in Serum [facility] Oat IgE Ab [Units/vo lume] in Serum [facility] [place] IgE Ab [Units/volume] in Serum [facility] Patient Education Antepartum Dis charge Instructions ([facility]) [facility] Work Phone: [facility] Work Phone: Peanut IgE Ab [Units/volume] in Serum [facility] Pecan or Spink Domo e IgE Ab [Units/volume] in Serum [facility] Penicillium notatum IgE Ab [Units/volume] in Serum [facility] Pork IgE Ab [Units/v olume] in Serum [facility] Potato IgE Ab [Units/volume] in Serum [facility] Progesterone [Mass/v olume] in Serum or Plasma [facility] Rice IgE Ab [Units/v olume] in Serum [facility] Rough Pigweed IgE Ab [Units/volume] in Serum [facility] [place] IgE Ab [Units/vo lume] in Serum [facility] Saltwort IgE Ab [Units/volume] in Serum [facility] Sheep [place] IgE Ab [Units/volume] in Serum [facility] Silver Birch IgE Ab [Units/volume] in Serum [facility] Soybean IgE Ab [Units/volume] in Serum [facility] Testosterone Free [Mass/volume] in Serum or Plasma [facility] Testosterone Free [Mass/volume] in Serum or Plasma [facility] Donavon IgE Ab [Units/volume] in Serum [facility] Tomato IgE Ab [Units/volume] in Serum [facility] Sieper IgE Ab [Units/volume] in Serum [facility] Wheat IgE Ab [Units/volume] in Serum [facility] White Marquez IgE Ab [Units/volume] in [facility] White Elm IgG Ab [Units/volume] in Serum [facility] White mulberry IgE A b [Units/volume] in [facility] Annawan IgE Ab [Units/volume] in Serum [facility] Immunizations Immunization Date Immunization Notes Care Provider Shahnaz duarte 07-20-2023 Influenza, injectable, Madin Melida Canine Kidney, preservative free, quadrivalent Raeann Ch SODDER Work Phone: [facility] 07-10-2022 influenza, injectable, quadrivalent, preservative free Raeann Ch SODDER Work Phone: [facility] 07-07-2022 tetanus toxoid, reduced diphtheria toxoid, and acellular pertussis vaccine, adsorbed Raeann Ch SODDER Work Phone: [facility] 01-13-2022 varicella virus vaccine Raeann Brianchol SODDER Work Phone: [facility] 12-23-2021 tuberculin skin test; purified protein derivative solution, intradermal Raeann Ch SODDER Work Phone: [facility] 08-18-2021 COVID-19 Vaccine Pfizer - Documentation Purposes Only Kirstin Hernandez Other [facility] 07-28-2021 COVID-19 Vaccine Pfizer - Documentation Purposes Only Kirstin Hernandez Other [facility] 06-11-2021 diphtheria, tetanus toxoids and pertussis vaccine Kirstin Hernandez Other [employer] Other 06-11-2021 measles, mumps and rubella virus vaccine Kirstin Hernandez Other [employer] Other 07-17-2019 influenza, seasonal, injectable Patient Objection Kirstin Hernandez Other [employer] Other 11-09-2014 Rocephin 500 mg Kirstin Hernandez Other [employer] Other 06-09-2012 hepatitis A vaccine, pediatric/adolescent dosage, 2 dose schedule Kirstin Hernandez Other [employer] Other 06-09-2012 human papilloma virus vaccine, quadrivalent Kirstin Hernandez Other [employer] Other 06-09-2012 meningococcal polysaccharide (groups A, C, Y and W-135) diphtheria toxoid conjugate vaccine (MCV4P) Kirstin Hernandez Other [employer] Other 06-09-2012 tetanus toxoid, reduced diphtheria toxoid, and acellular pertussis vaccine, adsorbed Kirstin Hernandez Other [employer] Other 04-01-2004 diphtheria, tetanus toxoids and acellular pertussis vaccine, unspecified formulation Kirstin Hernandez Other [facility] 04-01-2004 measles, mumps and rubella virus vaccine Kirstin Hernandez Other [facility] [employer] Other 04-01-2004 poliovirus vaccine, inactivated Kirstin Hernandez Other [employer] Other 04-01-2004 poliovirus vaccine, unspecified formulation [facility] 08-20-2000 diphtheria, tetanus toxoids and acellular pertussis vaccine, unspecified formulation Kirstin Hernandez Other [employer] Other 08-20-2000 haemophilus influenzae type b vaccine, conjugate unspecified formulation Kirstin Hernandez Other [facility] [employer] Other 08-20-2000 measles, mumps and rubella virus vaccine Kirstin Hernandez Other [facility] [employer] Other 08-20-2000 poliovirus vaccine, inactivated Kirstin Hernandez Other [employer] Other 08-20-2000 poliovirus vaccine, unspecified formulation [facility] 08-20-2000 varicella virus vaccine Kirstin Henrandez Other [employer] Other 01-23-2000 diphtheria, tetanus toxoids and acellular pertussis vaccine, unspecified formulation Kirstin Hernandez Other [employer] Other 01-23-2000 haemophilus influenzae type b conjugate and Hepatitis B vaccine Kirstin David Other [employer] Other 1999 diphtheria, tetanus toxoids and acellular pertussis vaccine, unspecified formulation Kirstin David Other [employer] Other 1999 haemophilus influenzae type b conjugate and Hepatitis B vaccine Kirstin Hernandez Other [employer] Other 1999 poliovirus vaccine, inactivated Kirstin Hernandez Other [employer] Other 1999 poliovirus vaccine, unspecified formulation [facility] 1999 diphtheria, tetanus toxoids and acellular pertussis vaccine, unspecified formulation Kirstin Hernandez Other [employer] Other 1999 haemophilus influenzae type b conjugate and Hepatitis B vaccine Kirstin Hernandez Other [employer] Other 1999 poliovirus vaccine, inactivated Kirstin Hernandez Other [employer] Other 1999 poliovirus vaccine, unspecified formulation [facility] NEGATED: Highlighted row has not occurred! 1 influenza, seasonal, injectable Patient Objection Kirstin Cortezfredy Other [employer] Other NEGATED: Highlighted row has not occurred! 9 influenza, seasonal, injectable Patient Objection Kirstin Hernandez Other [employer] Other Payers Date Payer Category Payer Medicaid [facility] MEDICAID [employer] MEDICAID [place] [id number] 2023-Present [address] [place] [address] [id number]. [id number] 2021 Unknown BCBS BCBS [id number] [id number] 2021-Present [phone] [address] [place] [address] 1.2.840.018751.1.13.693.2. 7.3.501875.315 1999 Unknown [id number] 2.16.840.1.688570.3.579.2. 593 1999 Unknown [id number] 2.16.840.1.438255.3.579.2. 593 1999 Unknown [id number] 2.16.840.1.383305.3.579.2. 593 1999 Unknown [id number] 2.16.840.1.731212.3.579.2. 593 1999 Unknown [id number] 2.16.840.1.802628.3.579.2. 593 1999 Unknown [id number] 2.16.840.1.306536.3.579.2. 593 1999 Unknown [id number] 2.16.840.1.530900.3.579.2. 593 1999 Unknown [id number] 2.16.840.1.048753.3.579.2. 593 1999 Unknown [id number] 2.16.840.1.449373.3.579.2. 593 1999 Unknown [id number] 2.16.840.1.381038.3.579.2. 593 1999 Unknown [id number] 2.16.840.1.391351.3.579.2. 593 1999 Unknown [id number] 2.16.840.1.954812.3.579.2. 593 1999 Unknown [id number] 2.16.840.1.808655.3.579.2. 718 1999 Unknown [id number] 2.16.840.1.886795.3.579.2. 718 1999 Unknown [id number] 2.16.840.1.417761.3.579.2. 1259 1999 Unknown [id number] 2.16.840.1.900307.3.579.2. 1259 1999 Unknown [id number] 2.16.840.1.573789.3.579.2. 1258 1999 Unknown [id number] 2.16.840.1.555394.3.579.2. 9 1999 Unknown [id number] 2.16.840.1.672749.3.579.2. 1258 1999 Unknown [id number] 2.16.840.1.574132.3.579.2. 1258 1999 Unknown [id number] 2.16.840.1.170813.3.579.2. 1258 1999 Unknown [id number] 2.16.840.1.660017.3.579.2. 1258 1999 Unknown [id number] 2.16.840.1.514460.3.579.2. 1258 1999 Unknown [id number] 2.16.840.1.614322.3.579.2. 1258 1999 Unknown [id number] 2.16.840.1.475165.3.579.2. 1258 1999 Unknown [id number] 2.16.840.1.578683.3.579.2. 9 1999 Unknown [id number] 2.16.840.1.249406.3.579.2. 1258 1999 Unknown [id number] 2.16.840.1.188269.3.579.2. 9 1960 [facility] [id number] 2.16.840.1.124323. 1959 Private Health Insurance [id number] 2.16.840.1.267842. 1959 Private Health Insurance [id number] Self-pay [id number] Unknown [id number] 2.16.840.1.389933.3.579.2. 531 Unknown [id number] 2.16.840.1.061686.3.579.2. 531 Unknown [id number] 2.16.840.1.796044.3.579.2. 531 Unknown [id number] 2.16.840.1.511706.3.579.2. 531 Unknown [id number] 2.16.840.1.285339.3.579.2. 531 Social History Date Type Detail Facility Unknown if ever smoked [facility] [employer] Other Start: 10-21-2023 Sex Assigned At [facility] [employer] Other Start: 2000 Sex Assigned At Female [facility] Start: 10-21-2023 Tobacco smoking status INIS Smokes tobacco daily [facility] Start: 10-21-2023 [...] [facility] Start: 11-10-2017 Tobacco smoking status RUST Never smoked tobacco (finding) [facility] NEGATED: Highlighted rowStart: NINF History of tobacco use Passive smoker [facility] Clinical Notes 12-02-2011 to 05-22-2024 Raeann Ch NP - 10/21/2023 9:40 AM [...] these instructions at home: Medicines ? Take etxi-qpd-naanqne and prescription medicines only as told by [...] to the area. Brushing your teeth ? [place] your teeth twice a day using a [...] when you eat or drink. ? Take nmyj-yrq-fpsljff and prescription medicines only as told by your dentist. ? Watch your dental pain for any changes. Let your dentist know if symptoms get worse. This information is not intended to replace advice given to you by your health care provider. Make sure you discuss any questions you have with your health care provider. Document Revised: 06/11/2021 Document Reviewed: 06/11/2021 [employer] Patient Education ? 2023 [employer]. Dentistry Dental Pain Dental pain is often [...] these instructions at home: Medicines ? Take daol-fql-ylgokwb and prescription medicines only as told by your dentist. ? If you were prescribed an antibiotic medicine, take it as told by your dentist. Do not stop taking it even if you start to feel better. Eating and drinking Do not eat foods or drinks that cause you pain. These include: (more content not included)... [facility] 12-15-2023 Hospital Discharg e instructions Ambulatory OrdersReferral to Orthopedics Time Frame: 12/15/23, Location: None [facility] Work Phone: 10-21-2023 History of Presen t [...] follow-up: [facility] . documented in this encounter [facility] 10-21-2023 Instructions Raeann Ch NP - 10/21/2023 9:40 AM EST PATIENT EDUCATION: ADHD Current drug therapy discussed during office visit. Call office for worsening of symptoms for follow-up visit. Per [facility] regulations, follow-ups have to occur at least [...] for repeat lavage. documented in this encounter [facility] 09-03-2023 Note [id number] [facility] 09-02-2023 Note Patient Education Ma terials Follows: [facility] 12-04-2022 Note OPERATIVE NOTE OPERATION DATE: 12/04/2022 PROCEDURE: Robotic assisted diagnostic laparoscopy. PREOPERATIVE DIAGNOSIS: Pelvic pain. POSTOPERATIVE DIAGNOSIS: Pelvic pain. ANESTHESIA: General. SURGEON: Jhonathan Pedraza D.O. MATHEMATICIAN: STEPHON Weber URINE OUTPUT: Yellow and clear. [...] to Recovery Room in stable condition. [facility] 08-04-2022 Evaluation note Encounter Date Diagnosis Assessment Notes Jul, ADHD (attention deficit hyperactivity disorder) (ICD-10 - F90.9) Jul, Anxiety (ICD-10 - F41.9) [employer] Other 07-22-2022 Evaluation note* Encounter Date Diagnosis [...] done in May (2021) by Dr. Pedraza. [employer] Other 06-21-2022 Evaluation note* Encounter Date Diagnosis Assessment Notes Treatment Notes Treatment Clinical Notes Feb, Fatigue (ICD-10 - R53.83) Feb, Weakness (ICD-10 - R53.1) Feb, Chest pain (ICD-10 - R07.9) [employer] Other 04-15-2022 Evaluation note* Encounter Date Diagnosis [...] other issues that take precedence. Dec, Other penitentiary (current) drug therapy (ICD-10 - Z79.899) Dec, [...] the symptoms so they can be documented. [employer] Other 03-15-2022 Evaluation note* Encounter Date Diagnosis Assessment Notes Treatment Notes Treatment Clinical Notes Nov, ADHD (attention deficit hyperactivity disorder) (ICD-10 - F90.9) [employer] Other 12-15-2021 Evaluation note* Encounter Date Diagnosis [...] that her HGB has improved. 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 [employer] Other 10-18-2021 Evaluation note* Encounter Date Diagnosis [...] have EMDR done through her new counselor. [employer] Other 03-14-2012 History general Narrative - Reported* Type Description Date Medical History 12-02-2011 Echo - Structurally No rmal Heart Medical History 12-02-11 CXR - Negative Medical History 12-02-11 Echo- Structurally [facility] Medical History Pre & Post Spirometry Medical History ADD Medical History X-Ray Left Ankle 08-07-13; [facility] Medical History PCOS found on ultrasound Medical History bipolar -2 Surgical History No Surgical history information Hospitalization [facility] - [facility] 08/12/15 Hospitalization History [facility] panic attack 08/17/15 [employer] Other [id number] History general Narrative - Reported* Type Description Date Medical History 12-02-2011 Echo - Structurally No rmal Heart Medical History 12-02-11 CXR - Negative Medical History 12-02-11 Echo- Structurally [facility] Medical History Pre & Post Spirometry Medical History ADD Medical History X-Ray Left Ankle 08-07-13; [facility] Medical History PCOS found on ultrasound Medical History bipolar -2 Medical History 10/07/21 pt states sh e had seizures 3-4 years ago that were stress induced Surgical History No Surgical history information Hospitalization History [facility] - chest pain [facility] 08/12/15 Hospital[facility] 08/17/15 [employer] Other Evaluation noteNo [employer] Other Evaluation noteNo assessment information available [facility] Work Phone: Evaluation note* Diagnosis Attention-deficit hyperactivity disorder, other type (CMS/HCC)- Primary Bilateral impacted cerumen Impacted cerumen [facility] N[facility]ativemed refill Adderall, discuss multiple issues, see treatment plan for further informationKiko Other Advance Directives No Advanced Directives Records [...] Complaint R05.1 R09.[address] helms Summary Purpose Family History No Family History [...] March 30, 2024 End: March 30, 2024 HEIDI LuqueC Attending Provider Act michelle Start: March 30, 2024 End: March 30, 2024 Team Status: Active Member Role Status Dates Raeann Ch SODDER-C Primary Care Provider Active Start: December 15, 2023 Kirstin Hernandez DO Attending Provider Active Star t: December 15, 2023 Team Status: Inactive Member Role Status Dates Kirstin Hernandez , Primary Care Provider Active Donavon Yanes DO Attending Provider Active Team Status: Active Member Role Status Dates Kirstin Hernandez , DO Primary Care Provider Active Team Status: Inactive Member Role Status Dates Services [facility] Primary Care Provider Active ARLEN SeguraC Attending Provide r Active Team Status: Inactive Member Role Status Dates Kirstin Hernandez , Primary Care Provider Active ARLEN SeguraC Attending Provide r Active Team Status: Active Member Role Status Dates Services [facility] Primary Care Provider Active Team Status: Inactive Member Role Status Dates UNA Segura Attending Provide r Active Services [facility] Primary Care Provider Active Team Status: Inactive Member Role Status Dates Tiarra Childs NP-Ashvin Attending Provide r Active Team Status: Active Member Role Status Dates Counts Include [facility] At [facility] Primary Care Provider Ac tive Team Status: Inactive Member Role Status Dates Counts Include [facility] At [facility] Primary Care Provider Ac tive Tiarra Childs NP-C Attending Provide r Active Team Status: Inactive Member Role Status Dates Counts Include [facility] At [facility] Primary Care Provider Ac tive aReann Ch NP-C Attending Provider Active Team Status: Inactive Member Role Status Dates Raeann Ch SODDER-C Primary Care Provider, Attending Pr ovider Active [employer] Relationship Specialty Start Date End Date Yovany Crawley MD [address] [place] [address] PCP - General Family Medicine 07/20/23 Raeann Ch NP [address] [place] [address] Nurse Practitioner Family Medicine 07/20/23 Team Status: Inactive Member Role Status Dates Raeann Ch SODDER-Ashvin Primary Care Provider Active Start: May 23, 2024 End: May 23, 2024 Andrzej Grace DO Attending Provider Active Sta rt: May 23, 2024 End: May 23, 2024 Goals (unrecognized section and content) Goals may be documented in a n alternate section INFORMATION SOURCE (unrecogn ized section and content) DATE CREATED AUTHOR 01/29/2023 [facility] DATE CREATED AUTHOR AUTHOR'S ORGANIZ ATION 04/15/2024 [facility] DATE CREATED AUTHOR AUTHOR'S ORGANIZ ATION 04/19/2024 [facility] DATE CREATED AUTHOR AUTHOR'S ORGANIZ ATION 2024 [facility] DATE CREATED AUTHOR AUTHOR'S ORGANIZ ATION 06/01/2024 [facility] DATE CREATED AUTHOR AUTHOR'S ORGANIZ ATION 06/20/2024 [facility] dical Specialists [facility] FOR RECORDS PERTAINING TO PATIENTS WHO ARE [...] BE BASED ON THE PRIMARY CLINICAL RECORDS. [employer] provides no warranty or guarantee of the accuracy or completeness of information in this document.
== END 2024-06-30 18:51 | disposition home or self-care (01) ==
LOC: US 18:50
PROVIDERS: Visit Provider Obstetrics & Gynecology
DX: O26.849 Uterine size-date discrepancy, unspecified trimester (principal); Z3A.29 29 weeks gestation of pregnancy
CPT/HCPCS: 76816

== ENCOUNTER 2024-07-13 08:13 | Outpatient (OUT) | payer BC, OTHER, SELFPAY ==
--- OUTSIDE RECORDS SUMMARY | 2024-07-13 08:22 | XMS_ITS | CCD ---
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 Name Role Phone Kirstin Hernandez Unavailable David, DO [place] Primary Care Provider DO Donavon Yanes Attending Provider David, DO [place] Primary Care Provider DO Donavon Yanes Attending Provider David, DO [place] Primary Care Provider DO Donavon Yanes Attending Provider UNA Childs Attending Pr ovider [facility] Primary Care Provider DO Kirstin Hernandez Primary Care Provider DO Kirstin Hernandez Primary Care Provider UNA Childs Attending Pr ovider [facility] Primary Care Provider UNA Childs Attending Pr ovider [facility] Primary Care Provider [phone] TALIA .DR ZARATE Attending Unavailable DAVID, DR [...] GIRVIN, DR [place] Primary Care Unavailable HUMPHREY HOLLNAD Attending Unavailable HUMPHREY HOLLAND Consulting Unavailable CHAU PRIMITIVO Consulting Unavailable GIRVIN, DR [place]ON Primary Care Unavailable TALIA ., DR ZARATE Admitting Unavailable TALIA ., DR ZARATE Attending Unavailable [facility] Care [facility] ider UNA Childs Attending Pr ovider UNA Jang Attending Provider [facility] Primary Care [facility] ider UNA Childs Attending Pr ovider UNA Jang Attending Provider JEAN CLAUDE Jang-C Raeann Primary Care Provider Yovany Crawley MD Primary Care Provider [phone] Laine WARDROBE SUPERVISOR, Raeann Unavailable JEAN CLAUDE Jang-C Raeann Primary Care Provider HEIDI Cuello Attending Provider [phone] Clarisa MIKE Attending Unavailable DO Andrzje Grace Attending Provider Raeann Jnag M Primary Care Unavailable UNA Templeton Attending Unavailable UNA Templeton Admitting Unavailable Armstrong, Tyler Roc Admitting Unavailable Armstrong, Tyler L Primary Care Unavailable Armstrong Tyler L Attending Unavailable Warchol, Raeann Attending Unavailable Warchol, Raeann Admitting Unavailable Warchol, Raeann Primary Care Unavailable Visci Andrzej Admitting Unavailable Visci, Andrzej Attending Unavailable Warchol, Raeann Primary Care Unavailable Warchol, Raeann Attending Unavailable Warchol, Raeann Admitting Unavailable Warchol, Raeann Primary Care Unavailable Warchol, Raeann Attending Unavailable Warchol, Reaann Admitting Unavailable [facility] Primary Care U navailable Lause, Ginny Gruberee Admitting Unavailable Lause, Ginny Theodora Attending Unavailable Warchol, Raeann Primary Care Unavailable WARCHOL, RAEANN Attending Unavailable WARCHOL, RAEANN Attending Unavailable DIDIONGINNY L Attending Unavailable DIDION GINYN L Referring Unavailable ESME JOSHI Attending Unavailable ESME JOSHI Referring Unavailable WARCHOL, RAEANN Referring Unavailable WARCHOL, RAEANN Attending Unavailable JHONATHAN PEDRAZA Attending Unavailable JHONATHAN PEDRAZA Attending Unavailable GINNY CUELLO R Attending Unavailable ROHAN CHAUHAN Attending Unavailable JHONATHAN PEDRAZA Attending Unavailable MITCH, RAEANN Attending Unavailable Allergies Allergy Classification Reported Allergen(s) Allergy Type Date of Onset Reaction(s) Facility (10 sources) Citalopram Drug Allergy headaches, upset GI Bulu Box Other (1 source) Citalopram Drug Allergy 3 [facility] Repository Medications Current Medications Medication Drug Class(es) Dates Sig (Normalized) Sig (Original) [id number] 200 actuat albuterol 0.09 mg/actuat metered dose [...] Active docusate sodium 100 mg oral capsule (9 sources) Start: 01-02-2022 take 1 capsule by mouth every twenty-four hours Colace 100 MG 1 capsule Orally Once a day Dec, Active Docusate Sodium (COLACE PO) Take by mouth Active 120 actuat fluticasone propionate 0.044 mg/actuat metered dose inhaler (2 sources) Corticosteroid Start: 11-26-2022 take 2 puff(s) by inhalation in the morning Flovent HFA 44 MCG/ACT inhaler Inhale 2 puffs in the morning and 2 puffs before bedtime. 0 11/26/2022 Active hydrOXYzine hydrochloride 25 mg oral tablet (9 sources) Antihistamine Start: 08-20-2021 hydrOXYzine HCl 25 MG 1 tablet Orally q8-12 hrs prn anxiety Aug, Active lisdexamfetamine dimesylate 30 mg oral capsule (9 sources) Central Nervous System Stimulant Start: 03-09-2023 End: 10-21-2023 take 1 capsule by mouth once daily Lisdexamfetamine (Vyvanse) 30 mg Capsule Active 30 MG PO Daily March 09, 2023 12:00am metoclopramide 10 mg oral tablet (2 sources) Dopamine-2 Receptor Antagonist Start: 07-04-2024 End: 08-03-2024 metoclopramide (Reglan) 10 MG tablet Indications: Nausea Take 1 tablet (10 mg) by mouth in the morning and 1 tablet (10 mg) at noon and 1 tablet (10 mg) in the evening. Take before meals. Take 1 tablet by mouth 30 minutes prior to meals 3 times daily as needed for nausea.. 90 tablet 2 07/04/2024 08/03/2024 Active MiraLax 17 GM/SCOOP (6 sources) Start: 01-02-2022 MiraLax 17 GM/SCOOP 1 capful in 10 oz of water Orally daily Dec, Active Multivitamin preparation (6 sources) take 1 tablet by mouth once daily Multi Vitamin - 1 tablet Orally Once a day Active omeprazole 20 mg delayed release oral capsule (4 sources) Proton Pump Inhibitor Start: 07-04-2024 End: 08-03-2024 take 1 capsule by mouth before mealtime omeprazole (PriLOSEC) [address] capsule Indications: Gastroesophageal Reflux Disease , Heartburn Take 1 capsule (20 mg) by mouth in the morning. Take before meals. Do not crush or chew.. 30 capsule 3 07/04/2024 08/03/2024 Active Start: 09-15-2022 omeprazole (Pr iLOSEC) [address] capsule 1 (one) time each day at the same time 0 09/15/2022 Active Vit w/Fe-Methylfol- FA (PNV PO) (3 sources) Vit w/F p-Inzgauxhv-JA (PNV PO) Take by mouth Active Completed/Discontinued Medications Medication Drug Class(es) Dates [...] pain; Translations: [Pelvic and perineal pain] Onset: 2 Resolved: 2 Episodic Adjustment disorders (10 sources) Reaction to severe stress, unspecified; Translations: [Stress] Chronic Anxiety disorders (16 sources) Anxiety disorder, unspecified; Translations: [Anxiety] Onset: 1 Resolved: 1 Chronic Asthma (5 sources) Uncomplicated mild persistent asthma; Translations: [Mild persistent asthma, uncomplicated] Onset: 3 07-19-2023 Chronic Attention-deficit, conduct, and disruptive behavior disorders (20 sources) Attention deficit hyperactivity disorder; Translations: [Attention-deficit hyperactivity disorder, unspecified type] Onset: 3 Resolved: 3 10-21-2023 Chronic Attention-deficit, conduct, and disruptive behavior disorders (7 sources) Attention-deficit hyperactivity disorder, unspecified type; Translations: [ADHD (attention deficit hyperactivity disorder) F90.9] Onset: 1 Resolved: 2 Chronic Headache; including migraine (10 sources) Migraine; Translations: [Migraine, unspecified, not intractable, without status migrainosus] Chronic Malaise and fatigue (5 sources) Fatigue; Translations: [Chronic fatigue, unspecified] Onset: 3 07-20-2023 Chronic Mood disorders (15 sources) Affective psychosis; Translations: [Unspecified mood [affective] disorder] Onset: 3 Resolved: 3 07-19-2023 Chronic Nausea and vomiting (3 sources) Vomiting, unspecified; Translations: [Nausea] Onset: 2 Resolved: 2 Episodic Other complications of (1 source) Other specified related conditions, second trimester; Translations: [Other specified related conditions, second trimester] Onset: 4 Episodic Other complications of (2 sources) Gastroesophageal reflux disease in ; Translations: [Diseases of the digestive system complicating , unspecified trimester] 07-04-2024 Episodic Other ear and sense organ disorders (2 sources) Impacted cerumen of bilateral ears; Translations: [Impacted cerumen, bilateral] 10-21-2023 Episodic Other endocrine disorders (10 sources) Polycystic ovaries; Translations: [Polycystic ovarian syndrome] Chronic Other endocrine disorders (6 sources) Polycystic ovarian syndrome; Translations: [POLYCYSTIC OVARIAN SYNDROME] Onset: 2 Resolved: 2 Chronic Other endocrine disorders (5 sources) Hypoglycemia; Translations: [Hypoglycemia, unspecified] Onset: 3 07-19-2023 Chronic Other female genital disorders (3 sources) Abnormal uterine and vaginal bleeding, unspecified; Translations: [ABNORMAL UTERINE VAGINAL BLEED UNS] Onset: 3 Chronic Other gastrointestinal disorders (6 sources) Constipation; Translations: [Constipation, unspecified] Episodic Other nervous system disorders (2 sources) Paresthesia; Translations: [Paresthesia of skin] Episodic Other nervous system disorders (4 sources) Paresthesia of upper limb; Translations: [Paresthesia of skin] Episodic Other nervous system disorders (4 sources) Skin sensation disturbance; Translations: [Paresthesia of skin] Episodic Other and delivery including normal (2 sources) Third trimester ; Translations: [Encounter for supervision of normal , unspecified, third trimester] 07-04-2024 Episodic Other screening for suspected conditions (not mental disorders or infectious disease) (7 sources) Encounter for screening for malignant neoplasm of cervix; Translations: [Encounter for screening for nutritional disorder] Onset: 2 Episodic Other upper respiratory disease (1 source) Nasal congestion; Translations: [Nasal congestion] Onset: 4 Episodic Residual codes; unclassified (10 sources) Insomnia; Translations: [Insomnia, unspecified] Episodic Residual codes; unclassified (10 sources) Difficulty sleeping ; Translations: [Sleep disorder, unspecified] Episodic Residual codes; unclassified (1 source) 24 weeks gestation of ; Translations: [24 weeks gestation of ] Onset: 4 Episodic Residual codes; unclassified (2 sources) Gestation period, 30 weeks; Translations: [30 weeks gestation of ] 07-04-2024 Episodic Unclassified (1 source) Acute cough; Translations: [Acute cough] Onset: 4 Unclassified (1 source) Encounter for general adult medical examination without abnormal findings; Translations: [Encounter for general adult medical examination without abnormal findings] Onset: 3 Past or Other Problems Problem Classification Problem Date Documented Da te Episodic/Chronic Deficiency and other anemia (1 source) Anemia, unspecified Onset: 09-03-2021 Resolved: 09-03-2021 Episodic Immunizations and screening for infectious disease (1 source) Encounter for screening for human papillomavirus (HPV); Translations: [ENC SCREENING HUMAN PAPILLOMAVIRUS] Onset: 03-19-2022 Episodic Malaise and fatigue (2 sources) Other fatigue; Translations: [Weakness] Onset: 03-10-2022 Resolved: 03-10-2022 Episodic Menstrual disorders (6 sources) Missed period; Translations: [Irregular menstruation, unspecified] Onset: 07-20-2023 Resolved: 08-27-2023 08-27-2023 Chronic Mood disorders (5 sources) Mood disorders Onset: 10-21-2023 10-21-2023 Nonspecific chest pain (2 sources) Chest pain, unspecified Onset: 03-10-2022 Resolved: 04-10-2022 Episodic Other aftercare (2 sources) 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 terminal operations supervisor (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) drug therapy Onset: 09-03-2021 Resolved: 01-02-2022 [...] [Abnormal weight loss] Onset: 07-20-2023 Episodic Other upper respiratory infections (1 source) Acute upper respiratory infection, unspecified; Translations: [Acute upper respiratory infection, unspecified] Onset: 08-10-2023 Episodic Spondylosis; intervertebral disc disorders; other back problems (1 source) Dorsalgia, unspecified Onset: 01-02-2022 Resolved: 01-02-2022 Episodic Spontaneous (1 source) Complete or unspecified spontaneous without complication; Translations: [COMPLETE/UNS SPONT AB W/O COMP] Onset: 09-29-2022 Episodic Results Test Name Value Interpretation Reference Range Facility Urinalysis macro (dipstick) panel (U)on 07-04-2024 Bilirubin, UA Negative Negative - 4(70) +++ mg/dL [facility] Blood, UA Negative Negative - 50 Brandon/mcL [facility] Clarity, UA Clear [facility] Color, UA Yellow [facility] Glucose, UA Negative Negative - 1999(110) ++++ mg/dL [facility] Interpretation and review of laboratory results Normal [facility] Ketones, UA Negative Negative - 160(16) ++++ mg/dL [facility] Leukocytes, UA Negative Negative - 500+++ Phil/mcL [facility] Nitrite, UA Negative Negative - Positive [facility] pH, UA 6 5 - 9 [facility] Protein, UA Negative Negative - 2000(20) ++++ mg/dL [facility] Spec Grav, UA 1.015 1 - 1.03 [facility] Urobilinogen, UA 0.2 0.2 - 12 mg/dL [facility] Coding Summaryon 05-30-2024 Coding Summary HTMLBase 64 YkfgyiewRAs1wJm+PGhlYWQ+PE 3JAYHbC33eySVlwV0aR5DJSOlK WhmcZCBVPWwUPxOkkvIaGA1enJ NjZXJu IC8+JI0fIQCeYdvkdSBai1W6aM B6J83cgm6nSJzzpED2KCGmYlIo fztgo7bucDl6HUoxWcqmEdIj BEPlrJ73FEZ4bJ77Yj25sPIftD Mlf2nvgXl8BvVeIBTqKHJ9gOjv XZsga9TdOYSxO06mtIWgy4T8 KORdzXkepZRkJoNcwNN0vH2mCN ikbgylr5aspxvwGvp3iq40eXId a3S1aMC8H5VawcX6JTBemBPv GrldpBMEoJ9uguudf9llvudcCm MnPZBjLFg0VBq0MCBzmHybQeSt JM01GLO0YDLjofThO5LmBLJs yJqvDiU0v4C2Nn7VQ5YCCqtpP4 VNTUFSWTwvdGQ+JF51fo67Z3Gm FjisPvy2AODsXOS5vWK3aX8i HXIqFRqpn2F6iGL9G0TifkKyrm 5nk1ltNGDfOXjuZ14hgDMtv7R9 GMIrzWK0VLUrpGomMgGzwU93 Oyc+USMyhJpkn4EfYmxlz8cea0 stzBa7DqwvMZVhdcLekJhzOXF1 m4HyNm3sKEDbaXJ1iGV7yL8q LzWkTgH5TQcdB264WwGuyXQkJm itD48sP6NwxTC+TKNlQss6UHXz aJryHL0jY2LkFAIolrjreMBi uZsqJR9oKPCysihuRQWcyQ2eVV OsL6s0ItSjNiY1SKtgQ0GsXVTt ijjbOs44uN8vGcGyOdI3QAhj Q8NsjqR6OUQznXAxROsjXZS2M4 9og8X5NPZwQUElXTT0xEL6iT7l bGlnbjogbGVmdDsgdmVydGlj MYarKMzcR769MREszStpEtHwUB luZyBEYXRlOiAgMDkvMTAvMjAy NDwvdGQ+PNZoFHB5mSodTEEu jYRmZMbuDr9akJfveQigGX2zWU SjghmyBEJxnA4uNHMacAVpeAlu MW8zQCRwykbpj926DlUdWET5 ZOXwoRRgX8OtlX3fViWrOMLpYK JpO9DsiJKqUAxyE927WOwoVxB4 BNZplfJxQ5HxFHTehMtbRhR0 d6T9Hb6Xx6CoipjuS3ShaBReJc JpBiajTAi9N7OgXwihzZV+PC90 BTDxME13SRj4SKE1mRleOVbz QBStJ6HncM2vJdMkJLLiRZWqOh c+PHRhYmxlIHdpZHRoPScxMDAl XqJfgQplAK5yXu2kOUCcKDQg tGnmdLTsLuPcu8vhAIPvYCxgDY 3nmSxvS1GaqKV5UASel0m3Es79 O95rF1NlxTL+DTKbxME0hQQ9 uM0fEzEdKuV7JMpnH101ZzBtxS ZsYyfrn2qeu5jayEj2ZlV3UVCv fgTuqYmcJRD0p2CiOl84B65s IHdpZHRoPSIxNSUiIHZhbGlnbj 5dlN1oCy5+IHEcwZN0lWF3mD8d FiJwUgX6EIiqH348RgFycYUk Arvky7qej2skbRb0AoDfERKzos MlqQjmSCE7c2QxVj21J2FvdUde c3JiQpj5fe10mAIpk3N7nRN4 P5JjBKTgdwqtvGXoxDjbNP8mIJ FzxwthPFHbvI0vRKFsR2n1ZuMm TtV4COqdG1DghtR5AOYrfIFi JTXcnGYRmD7cdybjp4ztsmhrEy GsTSIvKPc3ROv9TCOeiNngAxSt NFZ9GvA4MZX7eVZynP0imGef aywswW0rEey+GCK3oDIueTDBXT 1lOjwvdGQ+WKBvSOD2nNuiCHmu XMFbnQ6sCJLsP6h0OnTxNcT3 AWxkI7JzewM4JLRcyDQkRPNatN HMlN9kxrlra9fpxatoHsGoAMDx LXj4FLe5IJFaeHneCwOlCEE7 PlV0YEL1gFEgvU5frVjacsgebG 9wOyc+VdkgnKjgODS1NMm8A6Xg Qag6CIGfkXurVL6juYLsALhi Gm6myDijeCewHA1vQJCstywrr2 10YeYlh0mnKBHecJQsKWahHZN5 H03ul8C1AYTbUSNbJHD9jIR0 iG3mwRiczxrbnPTukWhaquNnoQ dlCGtsAGfgL079GQOgyYeyFnAq YEs4V3TjWmi0NSVyvSwvXJ4b mVKqRDkcId4idUjzlSefJP8qBQ Hrifcae075YsFpu2qwCYHhgFOh STldRTR0I39da0K5OAJnXXSm DGB7iAP4xR6ehKbctztsuUQfvD tdhfCkoIldHLvuFXbuS565BAGz aMsuLjIipVl8U4QzWnp5JMFj oNlfUR5rjEEkEPjeJg4usYzygC nkOU4fBODclvnix148EuHjb5io ELZhsXDdYYsmUDG0D45qa8T3 DIIuZROhWPJ9hOS8oI3jpKvwts ogbGVmdDsgdmVydGljYWwtYWxp T095AVQqcFisYtVbzEbocgAf SQxuYQq2U8ElVfqmsXI+PC90YW GbIK26vOAnzICdu0qjfEx0PoZt RHVqKVL6sFygGYsia9AwLZYi P03ptTDwi1N9VFDynIhimTXaQz DjwDQ4wN2nNJomzgevp2gfwzmq Kxufd2nuix81mH50K38gJShs QJDoSNPzNXNgXOVtmEbwzd7vkO 9wIi8+LLIafHT9cKW9uM9qSEBf JxG8ZMklI748PkVydXEtIiry f7mdy8qaqVn6VcY3YIHvnuNmgF yvGAS0i2CoDp61N29eCRumADLq DTQwFHUaKJOzhGyyvs6inC2w Ii8+HCYkqTE3uZK0oQ6cRrRkQv B4LAmdF671ZdZtvRNiKptfD56h E2HtoSF+GYJiXcl5NETxzMer AN1qxLOwEOorTx9xEOO0WxVwGg WkQNodS0QiJSWhfzuaxuyuaIL7 OMSvUQKepX00Lc3grAihIEJx qWSXvD5zwgahq2sjndieSlZzKN GlHGb0VSz2GSFkdCkyIgRhVBO5 AlF5EME5yNBryV4etKnhalbn mU2cP3RsOEKgmlssZj29fU3pEl WxAtH8VWqvHrt+Io6QLLyoN3DE VExZTiBMRUlHSDwvdGQ+PHRk LLT0rNpyXAdyEHLnsW3wBXCkF2 l9HxEnCkO6SPnyG3DpDWYcgrrb Lw10eK1lApLeEwT8UTqyD9Fv jbL1QGVrgHZgPLgrKYC1N88wq7 U4PCWiGWQpOLZ9kFH6hU1stLaq bjogbGVmdDsgdmVydGljYWwt SInqN147SXLuaBmvUcU6TnUvOu C9DPw1F8QdMpz5DKPwxNlhVV9r uAIhQMqdBq8whOsjsBlfFO4g RNLcnmxkYQDwxH1eUMLsfBQktI pxOX7uWYIupddfv451QzAqLJI0 LFTfaFMnZ4VuxE7lQkKtINQt TAImM4KlwVUhPSaaH177VDyoAq U1FPEqmlJrH3JlXSQizJmbCrS8 o9T6Xe2dWTSEYIMyakyldBR+ TRAmWVD5kCarVTihEFEluT0jYJ CwS1n1BbKlZsN3DIywG9CzIHAv pzrjDc69eN4hDlNbMwE3HDfk D8RdvcD0TNMnpQChSMkaOOQ5V6 2zo4C7IEMdBQCxLHZ7uVR4hN8a bGlnbjogbGVmdDsgdmVydGlj IWjnYShnU699JPDqjInxNwMFTB FMRTwvdGQ+IHIvMYY6oLpsUHnh ORCtgK3wYGRgS8t6KdUsNjN1 UKdlJ3QlBXDjlrglIm72hV2dMw ZeCnD2AOirS0CaxoR0CDOilWTn RDzqEXO5C85qk1W7CJGwWLPt IAB6uAU5oJ3ioDkyeuhbuMKzcW lhpjEgjYgeVEpeIEisM583JNWc bGgmCc2KHJ67NG80B1SrEgbp dGFibGU+PHRhYmxlIHdpZHRoPS gkTFUvXtOvhIymRZ4vKd6aLUIp ULWsqUfpmKKxOwLve3lgGUFb RPzyUD3yjPjkZ6DsrNF8ICQst5 s8Lo03Z26uR5TuiNM+PGNvbCB3 sRY0qY3cSzIrWrQ1EYyaU608 MwSgtZFqKwmxv9hjq7ndwCp7Rc YeSPCzceOqoAchLGD2z5KoPd42 T98dZOkbTAXsEEElLGVoRDJi zTucpd4ydA7wQe2+QNTfaYV9dP H8aD9uTkAqCmC6UAubY997VlPs oCTfPjhtF94qE0MdlNJ+PHRy Rch4APEdaVquUU6igAPcJFmaJe 2tWMW1AkQdOeAfDBjxD5OkHRLw egeqjhednSK7QFWoJNOupI22 La4fzGgrWh3cGLMqLCL2MTSizP SoG3ZpfV2hPiLhMOAkAQHkB7Ba zOLePWmaS437CLzjReT5FLCm ayTjM6RxQVBwcGojVqG4r9L9Ol 6OtZqpzFBsII5fGgQjYWy2L0Of Ryw7RURuvHqeZW7emABjQJms Uq3gsFqyqAkjIG6iDJClfcacr8 68IzJll1frSZGfzFZmLWiyPLV2 O51cs2T1CQCrJLFeIZG8yUQ9 wL2clBmbephghWFwfXqyukAcgH unSLgwZTupR725WLUlhUtrAgSP Jxy5Q2AyEyw3DEAtiTqxBO1w rKZlFJxcYp6raLxntOhiLS5kEH Tlqpvbn271LhKkq7kvVWSynRHv PSzpZFD7Z09lr5O6EPCqRHAw JPD9yLD6sG8fuPptrigxqERucS ftsgKjkDkySDfgGLjoZ672EKLx jElkFe1BXzn2S2KvJcw3APBc gLedTE6poSTjPChsEc0bmGnbmT qwOV8mRFIkfiwmb289AvOsy2gt XVIwxEMlWYteMPE0J78ld5U3 DHCdLRIyNOL8bER7tT3nbAbzjt ogbGVmdDsgdmVydGljYWwtYWxp M942RHIgmZjlEnNhyNDjFybe dGQ+UW04pr07L1LcMhbdDhv6ZH MoREW8lJH9jC6wRQYhMLblo0W7 eWJ2M2VqyuPbop9re2ahLXHu ZTo (more content not included)... Normal [facility] Bacteria [Presence] in Urine by AutomatedOrdered By: Andrzej Grace on 05-23-2024 Bacteria Auto Ql (U) 1+ [HPF] High None Seen [facility] Bilirubin Test strip Ql (U)O rdered By: Andrzej Grace on 05-23-2024 Bilirubin Ql (U) Negative Negative [facility] Color of Urine by AutoOrdere d By: Andrzej Grace on 05-23-2024 Color (U) Light-yellow Normal Yellow [facility] Comment on above: Order Comment: Name Collection Type:: Clean-Voided Midstream Performed By: #### A DDONUAPLUS #### [facility] [address] Crystals.amorphous [Presence ] in Urine by Computer assisted methodOrdered By: Andrzej Grace on 05-23-2024 Crystals.amorphous Computer assisted Ql (U) 1+ [HPF] [facility] Dipstick and Microscopicon 0 05-23-2024 Amorphous Crystal,Urine 1+ Normal T he [facility] Comment on above: Order Comment: Name Collection Type:: Clean-Voided Midstream Performed By: #### A DDONUAPLUS #### [facility] [address] [place] [address] [place] Bacteria,Urine 1+ High None Seen [facility] Comment on above: Order Comment: Name Collection Type:: Clean-Voided Midstream Performed By: #### A DDONUAPLUS #### [facility] [address] [place] [id number] [place] Bilirubin,Urine Negative Normal Negative [facility] Comment on above: Order Comment: Name Collection Type:: Clean-Voided Midstream Performed By: #### A DDONUAPLUS #### [facility] [address] [place] [id number] [place] Glucose Ql (U) Normal Normal Normal [facility] Comment on above: Order Comment: Name Collection Type:: Clean-Voided Midstream Performed By: #### A DDONUAPLUS #### [facility] [address] [place] [id number] [place] Hyaline Casts,Urine None Normal 0-8 [facility] Comment on above: Order Comment: Name Collection Type:: Clean-Voided Midstream Performed By: #### A DDONUAPLUS #### [place] [address] [place] Mucus,Urine Rare Normal [facility] Comment on above: Order Comment: Name Collection Type:: Clean-Voided Midstream Result Comment: PERF ORMED BY: [place] [address] PATHOLOGIST HISTORY TUTOR SADAF YOUNGBLOOD M.D. Performed By: #### A DDONUAPLUS #### [place] [address] [place] Nitrite,Urine Negative Normal Negative [facility] Comment on above: Order Comment: Name Collection Type:: Clean-Voided Midstream Performed By: #### A DDONUAPLUS #### [place] [address] [place] Occult Blood,Urine Negative Normal Negative [facility] Comment on above: Order Comment: Name Collection Type:: Clean-Voided Midstream Result Comment: PERF ORMED BY: [place] [address] PATHOLOGIST HISTORY TUTOR SADAF YOUNGBLOOD M.D. Performed By: #### A DDONUAPLUS #### [place] [address] [place] Protein,Urine Negative Normal Negative [facility] Comment on above: Order Comment: Name Collection Type:: Clean-Voided Midstream Performed By: #### A DDONUAPLUS #### [place] [address] [place] RBC,Urine 1-2 Normal 0-4 [facility] Comment on above: Order Comment: Name Collection Type:: Clean-Voided Midstream Performed By: #### A DDONUAPLUS #### [place] [address] [place] Specificy [place],Urine 1.013 Normal 1.00 1-1.03 0 [facility] Comment on above: Order Comment: Name Collection Type:: Clean-Voided Midstream Performed By: #### A DDONUAPLUS #### [address] Squamous Epithelial Cell,Urine 10-19 High 0-2 [facility] Comment on above: Order Comment: Name Collection Type:: Clean-Voided Midstream Performed By: #### A DDONUAPLUS #### [address] Urobilinogen,Urine Normal Normal Normal [facility] Comment on above: Order Comment: Name Collection Type:: Clean-Voided Midstream Performed By: #### A DDONUAPLUS #### [address] WBC,Urine 3-4 Normal 0-4 [facility] Comment on above: Order Comment: Name Collection Type:: Clean-Voided Midstream Performed By: #### A DDONUAPLUS #### [address] Epithelial cells.squamous [# /area] in Urine sediment by Automated countOrdered By: Andrzej Grace on 05-23-2024 Epithelial cells.squamous Auto (Urine sed) [#/Area] 10-19 [HPF] High 0-2 [facility] Erythrocytes [#/area] in Uri ne sediment by Automated countOrdered By: Andrzej Grace on 05-23-2024 RBC Auto (Urine sed) [#/Area] 1-2 [HPF] 0-4 [facility] Fibronectinon 05-23-20 24 Fibronectin Negative Normal Negative [facility] Comment on above: Order Comment: Comme nt patients 22 - 34 6/7 weeks prior to vaginal exam Result Comment: PERF ORMED BY: [place] [address] PATHOLOGIST HISTORY TUTOR SADAF YOUNGBLOOD M.D. Performed By: #### L IPID, B12, FOL, T4F, TSH3, FSH, [id number], CMP, MG, FE and TIBC, SAKINA, CRP #### [address] fibronectinOrdered By: Andrzej Grace on 05-23-2024 Fibronectin. (Vag fld) [Mass/Vol] Negative Negative [facility] Glucose [Mass/volume] in Uri ne by Test stripOrdered By: Andrzej Grace on 05-23-2024 Glucose Test strip (U) [Mass/Vol] Normal mg/dL Normal [facility] Hemoglobin Test strip Ql (U) Ordered By: Andrzej Grace on 05-23-2024 Hemoglobin Ql (U) Negative Negative [facility] Hyaline casts [#/area] in Ur ine sediment by Automated countOrdered By: Andrzej Grace on 05-23-2024 Hyaline casts Auto (Urine sed) [#/Area] None [LPF] 0-8 [facility] Ketones [Presence] in Urine by Test stripOrdered By: Andrzej Grace on 05-23-2024 Ketones Ql (U) Negative Normal Negative [facility] Comment on above: Order Comment: Name Collection Type:: Clean-Voided Midstream Performed By: #### A DDONUAPLUS #### [address] Leukocyte esterase [Presence ] in Urine by Test stripOrdered By: Andrzej Grace on 05-23-2024 Leukocyte esterase Test strip Ql (U) Negative Normal Negative [facility] Comment on above: Order Comment: Name Collection Type:: Clean-Voided Midstream Performed By: #### A DDONUAPLUS #### [place] [address] [place] Leukocytes [#/area] in Urine sediment by Automated countOrdered By: Andrzej Grace on 05-23-2024 WBC Auto (Urine sed) [#/Area] 3-4 [HPF] 0-4 [facility] Mucus [Presence] in Urine by AutomatedOrdered By: Andrzej Grace on 05-23-2024 Mucus Auto Ql (U) Rare [LPF] [facility] Nitrite Test strip Ql (U)Ord ered By: Andrzej Grace on 05-23-2024 Nitrite Ql (U) Negative Negative [facility] Protein Test strip (U) [Mass /Vol]Ordered By: Andrzej Grace on 05-23-2024 Protein (U) [Mass/Vol] Negative Negative [facility] Specific gravity Test strip (U) [Rel density]Ordered By: Andrzej Grace on 05-23-2024 Specific gravity (U) [Rel density] 1.013 1.001-1.03 0 [facility] Urine appearanceOrdered By: Andrzej Grace on 05-23-2024 Appearance (U) Cloudy Critically abnormal Clear [facility] Comment on above: Order Comment: Name Collection Type:: Clean-Voided Midstream Performed By: #### A DDONUAPLUS #### [facility] [address] [id number] [facility] Urobilinogen Test strip (U) [Mass/Vol]Ordered By: Andrzej Grace on 05-23-2024 Urobilinogen (U) [Mass/Vol] Normal mg/dL Normal [facility] pH of Urine by Test stripOrd ered By: Andrzej Grace on 05-23-2024 pH (U) 6.5 [pH] Normal 5.0-9.0 [facility] Comment on above: Order Comment: Name Collection Type:: Clean-Voided Midstream Performed By: #### A DDONUAPLUS #### [facility] [address] [place] [address] ED Clinical Summaryon 2023 ED Clinical Summary [facility] ? Urgent Care [address] [place] [address] Clinical Summary PERSON INFORMATION Name: LE ROCHA Age: 23 Years Sex: FEMALE : 2000 MRN: Acct#: Visit Reason: UC - Dental Pain; DENTAL PAIN Arrival: 05/22/2024 13:14:06 Discharge: 05/22/2024 14:17:00 LOS: 000 01:03 Check In: 05/22/2024 13:14:06 Checkout: 05/22/2024 14:17:00 Address: [address] [place] [address] PCP: Raeann Jang MSN [employer]AS[employer] MANAGEMENT SALES CONSULTANT PROVIDER INFORMATION Provider Role Assigned Unassigned Yon [...] Home PATIENT EDUCATION INFORMATION Instructions: Dental Pain, Amec-wu-Nyga; Dental Pain, Vikm-wc-Mjui Follow-Up: With: Address: When: Raeann Jang MSN [employer] MANAGEMENT SALES CONSULTANT [address] [place] [address] Within 3 to 5 days [...] understanding of instructions given Comment: Normal [facility] ED Patient Summaryon 024 ED Patient Summary [facility] ? Urgent Care [address] [place], [place] [id number] PATIENT DISCHARGE INSTRUCTIONS Patient Information Name: LE ROCHA Age: 23 Years Date of : 2000 [facility]: [id number] Reason For Visit: UC - Dental Pain; DENTAL PAIN Arrival Time: 05/22/2024 13:14:06 Primary Care Physician: Raeann Jang MSN [employer] MANAGEMENT SALES CONSULTANT Attending Physician: Yon Templeton CNP Comment: Patient Education With: Address: When: Raeann Jang MSN [employer] MANAGEMENT SALES CONSULTANT [address] [place] [address] Within 3 to 5 days [...] these instructions at home: Medicines ? Take hbsy-sgv-dcbtthy and prescription medicines only as told by [...] to the area. Brushing your teeth ? [place] your teeth twice a day using a [...] when you eat or drink. ? Take pzxr-ggn-hofcfta and prescription medicines only as told by your dentist. ? Watch your dental pain for any changes. Let your dentist know if symptoms get worse. This information is not intended to replace advice given to you by your health care provider. Make sure you discuss any questions you have with your health care provider. Document Revised: 06/11/2021 Document Reviewed: 06/11/2021 [employer] Patient Education ? 2023 [employer] Dental Pain Dental pain is often a sign that something is wrong with your teeth or gums. You can also mandel (more content not included)... Normal [facility]gent Care [address] 024 Urgent Care Record [facility] ? Urgent Care [address] [place] [address] PATIENT DISCHARGE INSTRUCTIONS Patient Information Name: LE ROCHA Age: 23 Years Date of : 2000 [facility]: [id number] Reason For Visit: UC - Dental Pain; DENTAL PAIN Arrival Time: 05/22/2024 13:14:06 Primary Care Physician: Raeann Jang MSN [employer] MANAGEMENT SALES CONSULTANT Attending Physician: Yon Templeton CNP Comment: Visit Diagnosis: Diagnoses This Visit Dental infection (K04.7) Impacted tooth (K01.1) UC - Dental Pain ([id number]) If you received any narcotics, sedation, or [...] documents With: Address: When: Raeann Jang MSN [employer] MANAGEMENT SALES CONSULTANT [address] [place] [id number] Medication Information: The exam and treatment you received today in the [facility] were for an urgent problem and are not intended as complete care. It is important for you to follow up with a doctor, nurse practitioner, or physician?s staff assistant for ongoing care. If your symptoms [...] so we can reach you if necessary. [facility] has provided you with a complete list of medications post discharge. Please inform your thread spinner/provider of your visit and for further instruction on these medications. Any specific questions regarding your chronic medications and dosages should be discussed with your primary care physician(s) and/or pharmacist. New Medications [facility], [address] [phone], [phone] amoxicillin (amoxicillin 500 mg oral capsule) 1 [...] these instructions at home: Medicines ? Take oomp-tov-khwvjae and prescription medicines only as told by your dentist. ? If you were prescribed an antibiotic medicine, take it as told by your dentist. Do not stop taking it even if you start to feel better. Eating and drinking D (more content not included)... Normal [facility] Quantiferon-TB Plus (Client Incubated)on 04-17-2024 Gamma interferon background IA Qn (Bld) 3.22 International_Unit/mL Invalid Interpretation Code [facility] Comment on above: Performed By: #### 1 [id number] #### [facility] [address] [place] [address] M. tuberculosis stim IFN-g by CD4+ CD8+ T-cells corrected for background Qn (Bld) 0.00 International_Unit/mL Invalid Interpretation Code [facility] Comment on above: Performed By: #### 1 [id number] #### [facility] [address] [place] [address] M. tuberculosis stim IFN-g by CD4+ T-cells corrected for background Qn (Bld) 0.00 International_Unit/mL Invalid Interpretation Code [facility] Comment on above: Performed By: #### 1 [id number] #### [facility] [address] [place] [address] M. tuberculosis stim IFN-g Ql (Bld) [Interp] Negative Invalid Interpretation Code Negative [facility] Comment on above: Result Comment: No [...] interferon gamma. Chemiluminescence immunoassay methodology Performed at: [address] [id number] PhD Calvin Milner Performed By: #### 1 [id number] #### [facility] [address] [place] [address] Mitogen stimulated gamma interferon corrected for background Qn (Bld) >10.00 Invalid Interpretation Code [facility] Comment on above: Performed By: #### 1 [id number] #### [facility] [address] [place] [address] Service comment (Unsp spec) [Interp] Comment Invalid Interpretation Code [facility] Comment on above: Result Comment: Bairon [...] for the test. Performed By: #### 1 [id number] #### [facility] [address] [place] [address] Hep Bs Abon 04-15-2024 HBV surface Ab Ql (S) Reactive Invalid Interpretation Code [facility] Comment on above: Result Comment: Non Reactive: Inconsistent with immunity, less than 10 mIU/mL Reactive: Consistent with immunity, greater than 9.9 mIU/mL Performed at: [address] [id number] PhD Calvin Milner Performed By: #### 2 [id number] #### [facility] [address] [place] [address] Measles/Mumps/Rubella Immuni tyon 04-15-2024 MeV IgG IA Qn (S) 26.7 A unit/mL Invalid Interpretation Code Immune >16.4 [facility] Comment on above: Result Comment: Nega tive <13.5 Equivocal 13.5 - 16.4 Positive >16.4 Presence of antibodies to Rubeola is presumptive evidence of immunity except when acute infection is suspected. Performed By: #### 3 [id number] #### [facility] [address] [place] [address] MuV IgG IA Qn (S) 209.0 A unit/mL Invalid Interpretation Code Immune >10.9 [facility] Comment on above: Result Comment: Nega tive <9.0 Equivocal 9.0 - 10.9 Positive >10.9 A positive result generally indicates past exposure to Mumps virus or previous vaccination. Performed at: [address] [id number] PhD Calvin Milner Performed By: #### 3 [id number] #### [facility] [address] [place] [address] Rubella virus IgG Qn (S) 4.08 [IU]/mL Invalid Interpretation Code Immune >0.99 [facility] Comment on above: Result Comment: Non- immune <0.90 Equivocal 0.90 - 0.99 Immune >0.99 Performed By: #### 3 [id number] #### [facility] [address] [place] [address] Varic IgGon 04-15-2024 VZV IgG IA Qn (S) 514 Invalid Interpretation Code Immune >165 [facility] Comment on above: Result Comment: Nega tive <135 Equivocal 135 - 165 Positive >165 A positive result generally indicates exposure to the pathogen or administration of specific immunoglobulins, but it is not indication of active infection or stage of disease. Performed at: [address] [id number] PhD Calvin Milner Performed By: #### 1 [id number] #### [facility] [address] [place] [address] BioFire Detectedon 4 BioFire Detected Detected Critically abnormal Not Detecte [facility] Comment on above: Result Comment: This is a duplicate RP2.1 COVID (PCR) result to be used for statistical tracking purpose only. PERFORMED BY: [facility] [address] [place] [address] PATHOLOGIST HISTORY TUTOR SADAF YOUNGBLOOD M.D. Performed By: #### L IPID, B12, FOL, T4F, TSH3, FSH, [id number], CMP, MG, FE and TIBC, SAKINA, CRP #### [facility] [address] COVID-19 Detected/Not Detect edOrdered By: Ginny Cuello on 03-30-2024 SARS-CoV-2 (COVID-19) RNA KYLAH+non-probe Ql (Nph) Detected Abnormal Not Detecte [facility] Comment on above: This is a [...] A H3 Blank Space -- PERFORMED BY: [facility] [address] [place] [address] PATHOLOGIST HISTORY TUTOR SADAF YOUNGBLOOD M.D. Normal [facility] Comment on above: Performed By: #### L IPID, B12, FOL, T4F, TSH3, FSH, [id number], CMP, MG, FE and TIBC, SAKINA, CRP #### [facility] [address] Respiratory pathogens DNA an d RNA panel - Nasopharynx by KYLAH with non-probe detectionOrdered By: Ginny Cuello on 03-30-2024 Respiratory pathogens DNA and RNA panel KYLAH+non-probe (Nph) [facility] ED Clinical Summaryon 2022 ED Clinical Summary [facility] ? Urgent Care [address] [place] [address] Clinical Summary PERSON INFORMATION Name: LE ROCHA Age: 23 Years Sex: FEMALE : 2000 MRN: Acct#: Visit Reason: Medical screening exam; [facility] Arrival: 09/02/2023 11:23:52 Discharge: 09/02/2023 12:23:00 LOS: 000 01:00 Check In: 09/02/2023 11:23:52 Checkout: 09/02/2023 12:23:00 Address: [address] [place] [address] [address] [facility] [address] PCP: Provider, Unlisted PROVIDER INFORMATION Provider Role [...] understanding of instructions given Comment: Normal [facility] ED Patient Summaryon 023 ED Patient Summary [facility] ? Urgent Care [address] [place] [address] PATIENT DISCHARGE INSTRUCTIONS Patient Information Name: LE ROCHA Age: 23 Years Date of : 2000 Reason For Visit: Medical screening exam; [facility] Arrival Time: 09/02/2023 11:23:52 Primary Care Physician: Provider, Unlisted Attending Physician: Tyler Armstrong PA-C Comment: Patient Education Medication Information: The exam and treatment you received today in the [facility] Emergency Department were for an urgent problem and are not intended as complete care. It is important for you to follow up with a doctor, nurse practitioner, or physician?s staff assistant for ongoing care. If your symptoms [...] we can reach you if necessary. [facility] Emergency Department has provided you with a complete list of medications post discharge. Please inform your thread spinner/provider of your visit and for further instruction on these medications. Any specific questions regarding your chronic medications and dosages should be discussed with your primary care physician(s) and/or pharmacist. Visit Information Visit Diagnosis: Diagnoses This Visit Medical screening exam ([id number]) If you received any narcotics, sedation, or [...] documents Reason for Visit: Medical Screening Exam. [place] Physical. Allergies: Substance Reaction Symptoms Type Comments [...] for Disease Control and Prevention May 2014 [facility] Urgent Care Note- Provideron 09-02-2023 Urgent Care Note- Provider Patient: LE ROCHA Age: 23 years Sex: FEMALE : 2000 Associated Diagnoses: None Author: Tyler Armstrong PA-C Basic Information Additional information: Chief Complaint from Nursing Triage Note : Chief Complaint 09/02/2023 11:54 EST Chief Complaint Medical Screening Exam. [place] Physical. . History of Present Illness Patient [...] on: 09/02/2023 12:03 EST] Tyler Armstrong PA-C [facility] Urgent Care [place] 023 Urgent Care Record [facility] ? Urgent Care [address] [place] [address] PATIENT DISCHARGE INSTRUCTIONS Patient Information Name: LE ROCHA Age: 23 Years Date of : 2000 Reason For Visit: Medical screening exam; [facility] Arrival Time: 09/02/2023 11:23:52 Primary Care Physician: Provider, Unlisted Attending Physician: Tyler Armstrong PA-C Comment: Visit Diagnosis: Diagnoses This Visit Medical screening exam ([id number]) If you received any narcotics, sedation, or [...] and treatment you received today in the [facility] were for an urgent problem and are not intended as complete care. It is important for you to follow up with a doctor, nurse practitioner, or physician?s staff assistant for ongoing care. If your symptoms [...] so we can reach you if necessary. [facility] has provided you with a complete list of medications post discharge. Please inform your thread spinner/provider of your visit and for further instruction [...] Control and Prevention May 2014 Normal [facility] Choriogonadotropin.beta subu nit [Units/volume] in Serum or PlasmaOrdered By: Raeann Jang on 08-19-2023 HCG.beta subunit Qn 0.75 m[IU]/mL [facility] Comment on above: Approximate Approxim ate hCG Gestational Age Range (mIU/ml) (weeks)0.2-1 5-50 1-2 50-500 2-3 100-5,000 3-4 500-10,000 4-5 1,000-50,000 5-6 10,000-100,000 6-8 15,000-200,000 8-12 10,000-100,000 HCG.beta subunit Qn Negative [facility] HCG,Qualitative Serumon 07-23 HCG,Qualitative Serum Negative Normal [facility] Comment on above: Result Comment: PERF ORMED BY: [place] [address] PATHOLOGIST HISTORY TUTOR SADAF YOUNGBLOOD M.D. Performed By: #### L IPID, B12, FOL, T4F, TSH3, FSH, [id number], CMP, MG, FE and TIBC, SAKINA, CRP #### [facility] [address] [place] [address] HCG,Quantitativeon 3 HCG,Quantitative 0.75 m[iU]/mL Normal [facility] Comment on above: Result Comment: Appr oximate Approximate hCG Gestational Age Range (mIU/ml) (weeks) 0.2-1 5-50 1-2 50-500 2-3 100-5,000 3-4 500-10,000 4-5 1,000-50,000 5-6 10,000-100,000 6-8 15,000-200,000 8-12 10,000-100,000 Performed By: #### L IPID, B12, FOL, T4F, TSH3, FSH, [id number], CMP, MG, FE and TIBC, SAKINA, CRP #### [facility] [address] HAND RIGHT WO IV CONTRAST [...] Not detected Normal Not Detecte [facility] Comment on above: Result Comment: This is a duplicate RP2.1 COVID (PCR) result to be used for statistical tracking purpose only. PERFORMED BY: [place] [address] PATHOLOGIST HISTORY TUTOR SADAF YOUNGBLOOD M.D. Performed By: #### L IPID, B12, FOL, T4F, TSH3, FSH, [id number], CMP, MG, FE and TIBC, SAKINA, CRP #### [facility] [address] [id number] [facility] COVID-19 Detected/Not Detect edOrdered By: Raeann Jang on 08-10-2023 SARS-CoV-2 (COVID-19) RNA KYLAH+non-probe Ql (Nph) Not detected Not Detecte [facility] Comment on above: This is a [...] A H3 Blank Space -- PERFORMED BY: [place] [address] PATHOLOGIST HISTORY TUTOR SADAF YOUNGBLOOD M.D. Normal [facility] Comment on above: Performed By: #### L IPID, B12, FOL, T4F, TSH3, FSH, [id number], CMP, MG, FE and TIBC, SAKINA, CRP #### [facility] [address] Respiratory pathogens DNA an d RNA panel - Nasopharynx by KYLAH with non-probe detectionOrdered By: Raeann Jang on 08-10-2023 Respiratory pathogens DNA and RNA panel KYLAH+non-probe (Nph) [facility] XR HAND 3+ VIEWS RIGHTon XR [...] activity/volume] in Serum or PlasmaOrdered By: Raeann Florezrohith on 07-20-2023 ALT [Catalytic activity/Vol] 10 U/L Normal 7-52 [facility] Comment on above: Performed By: #### L IPID, B12, FOL, T4F, TSH3, FSH, [id number], CMP, MG, FE and TIBC, SAKINA, CRP #### [facility] [address] Albumin [Mass/volume] in Ser um or Plasma by Bromocresol green (BCG) dye binding methoOrdered By: Raeann Florezrohith on 07-20-2023 Albumin BCG dye [Mass/Vol] 4.5 g/dL 3.5-5.7 [facility] Alkaline phosphatase [Enzyma tic activity/volume] in Serum or PlasmaOrdered By: Raeann Laine on 07-20-2023 ALP [Catalytic activity/Vol] 63 U/L Normal 34-104 [facility] Comment on above: Performed By: #### L IPID, B12, FOL, T4F, TSH3, FSH, [id number], CMP, MG, FE and TIBC, SAKINA, CRP #### [facility] [address] [place] [address] [place] Aspartate aminotransferase [ Enzymatic activity/volume] in Serum or PlasmaOrdered By: Raeann Jang on 07-20-2023 AST [Catalytic activity/Vol] 16 U/L Normal 13-39 [facility] Comment on above: Performed By: #### L IPID, B12, FOL, T4F, TSH3, FSH, [id number], CMP, MG, FE and TIBC, SAKINA, CRP #### [facility] [address] [place] [address] [place] Automated basophil %Ordered By: Raeann Florezrohith on 07-20-2023 Basophils/100 WBC (Bld) 0.3 % Normal . [facility] Comment on above: Performed By: #### L IPID, B12, FOL, T4F, TSH3, FSH, [id number], CMP, MG, FE and TIBC, SAKINA, CRP #### [facility] [address] Automated basophil countOrde red By: Raeann Laine on 07-20-2023 Basophils (Bld) [#/Vol] 0.0 10*3/uL Normal 0.0-0.2 [facility] Comment on above: Performed By: #### L IPID, B12, FOL, T4F, TSH3, FSH, [id number], CMP, MG, FE and TIBC, SAKINA, CRP #### [address] Automated blood monocyte cou ntOrdered By: Raeann Jang on 07-20-2023 Monocytes (Bld) [#/Vol] 0.3 10*3/uL Normal 0.0-0.8 [facility] Comment on above: Performed By: #### L IPID, B12, FOL, T4F, TSH3, FSH, [id number], CMP, MG, FE and TIBC, SAKINA, CRP #### [address] Automated eosinophil %Ordere d By: Raeann Jang on 07-20-2023 Eosinophils/100 WBC (Bld) 0.9 % Normal . [facility] Comment on above: Performed By: #### L IPID, B12, FOL, T4F, TSH3, FSH, [id number], CMP, MG, FE and TIBC, SAKINA, CRP #### [address] Automated eosinophil countOr dered By: Raeann Jang on 07-20-2023 Eosinophils (Bld) [#/Vol] 0.1 10*3/uL Normal 0.0-0.45 [facility] Comment on above: Performed By: #### L IPID, B12, FOL, T4F, TSH3, FSH, [id number], CMP, MG, FE and TIBC, SAKINA, CRP #### [address] Automated monocyte %Ordered By: Raeann Jang on 07-20-2023 Monocytes/100 WBC (Bld) 4.9 % Normal . [facility] Comment on above: Performed By: #### L IPID, B12, FOL, T4F, TSH3, FSH, [id number], CMP, MG, FE and TIBC, SAKINA, CRP #### [facility] [address] Automated neutrophil %Ordere d By: Raeann Jang on 07-20-2023 Neutrophils/100 WBC (Bld) 70.0 % Normal . [facility] Comment on above: Performed By: #### L IPID, B12, FOL, T4F, TSH3, FSH, [id number], CMP, MG, FE and TIBC, SAKINA, CRP #### [facility] [address] Bilirubin.total [Mass/volume ] in Serum or PlasmaOrdered By: Raeann Jang on 07-20-2023 Bilirubin [Mass/Vol] 1.7 mg/dL High 0.3-1.0 [facility] Comment on above: Samples from patient [...] L IPID, B12, FOL, T4F, TSH3, FSH, [id number], CMP, MG, FE and TIBC, SAKINA, CRP #### [facility] [address] [place] [address] [place] C reactive protein [Mass/vol ume] in Serum or PlasmaOrdered By: Raeann Jang on 07-20-2023 CRP [Mass/Vol] 0.8 mg/dL 0.0-0.5 [facility] C-Reactive Proteinon 10-31-2 023 C-Reactive Protein 0.8 mg/dL High 0.0-0.5 [facility] Comment on above: Performed By: #### L IPID, B12, FOL, T4F, TSH3, FSH, [id number], CMP, MG, FE and TIBC, SAKINA, CRP #### [facility] [address] [place] [address] [place] Calcium [Mass/volume] in Ser um or PlasmaOrdered By: Raeann Jang on 07-20-2023 Calcium [Mass/Vol] 9.6 mg/dL Normal 8.6-10.3 [facility] Comment on above: Performed By: #### L IPID, B12, FOL, T4F, TSH3, FSH, [id number], CMP, MG, FE and TIBC, SAKINA, CRP #### [facility] [address] [place] [address] [place] Carbon dioxide, total [Moles /volume] in Serum or PlasmaOrdered By: Raeann Jang on 07-20-2023 CO2 [Moles/Vol] 26.8 mmol/L Normal 21.0-31.0 [facility] Comment on above: Performed By: #### L IPID, B12, FOL, T4F, TSH3, FSH, [id number], CMP, MG, FE and TIBC, SAKINA, CRP #### [facility] [address] [id number] [place] Chloride [Moles/volume] in S ulises or PlasmaOrdered By: Raeann Jang on 07-20-2023 Chloride [Moles/Vol] 106 mmol/L Normal 98-107 [facility] Comment on above: Performed By: #### L IPID, B12, FOL, T4F, TSH3, FSH, [id number], CMP, MG, FE and TIBC, SAKINA, CRP #### [facility] [address] [id number] [place] Cholesterol [Mass/volume] in Serum or PlasmaOrdered By: Raeann Jang on 07-20-2023 Cholesterol [Mass/Vol] 148 mg/dL Normal 140-200 [facility] Comment on above: Chol less than 200 m g/dl low riskChol 201-239 mg/dl borderline riskChol 240 mg/dl and greater high risk Result Comment: Chol less than 200 mg/dl low risk Chol 201-239 mg/dl borderline risk Chol 240 mg/dl and greater high risk Performed By: #### L IPID, B12, FOL, T4F, TSH3, FSH, [id number], CMP, MG, FE and TIBC, SAKINA, CRP #### [facility] [address] Cholesterol in LDL Calc [Mas s/Vol]Ordered By: Raeann Jang on 07-20-2023 Cholesterol in LDL [Mass/Vol] 86 mg/dL 0-100 [facility] Comment on above: LDL ATP III CLASSIFI CATIONLDL less than 100 mg/dL OptimalLDL 100-129 mg/dL Near or above optimalLDL 130-159 mg/dL Borderline highLDL 160-189 mg/dL HighLDL greater than 189 mg/dL Very high Cholesterol in VLDL Calc [Ma ss/Vol]Ordered By: Raeann Jang on 07-20-2023 Cholesterol in VLDL [Mass/Vol] 17 mg/dL [facility] Complete Blood Count Auto Di ffon 07-20-2023 Mean Corpuscular HGB Conc 33.8 g/dL Normal 32.0-35.0 [facility] Comment on above: Performed By: #### L IPID, B12, FOL, T4F, TSH3, FSH, [id number], CMP, MG, FE and TIBC, SAKINA, CRP #### [facility] [address] NRBC% 0.1 /100{WBC} Normal 0-0.5 [facility] Comment on above: Performed By: #### L IPID, B12, FOL, T4F, TSH3, FSH, [id number], CMP, MG, FE and TIBC, SAKINA, CRP #### [facility] [address] Comprehensive Metabolic Pane maikol 07-20-2023 Albumin [Mass/Vol] 4.5 g/dL Normal 3.5-5.7 [facility] Comment on above: Performed By: #### L IPID, B12, FOL, T4F, TSH3, FSH, [id number], CMP, MG, FE and TIBC, SAKINA, CRP #### [address] GFR/1.73 sq M.predicted MDRD (S/P/Bld) [Vol rate/Area] mL/min/{1.73_m2} Normal [facility] Comment on above: Performed By: #### L IPID, B12, FOL, T4F, TSH3, FSH, [id number], CMP, MG, FE and TIBC, SAKINA, CRP #### [address] Creatinine [Mass/volume] in Serum or PlasmaOrdered By: Raeann Jang on 07-20-2023 Creatinine [Mass/Vol] 0.70 mg/dL Normal 0.60-1.20 [facility] Comment on above: Performed By: #### L IPID, B12, FOL, T4F, TSH3, FSH, [id number], CMP, MG, FE and TIBC, SAKINA, CRP #### [address] Erythrocyte Sedimentation Ra nargis 07-20-2023 ESR (Bld) [Velocity] 15 mm/h Normal 0-19 [facility] Comment on above: Result Comment: PERF ORMED BY: [place] [address] PATHOLOGIST HISTORY TUTOR SADAF YOUNGBLOOD M.D. Performed By: #### L IPID, B12, FOL, T4F, TSH3, FSH, [id number], CMP, MG, FE and TIBC, SAKINA, CRP #### [address] Erythrocyte distribution wid th [Ratio] by Automated countOrdered By: Raeann Jang on 07-20-2023 Erythrocyte distribution width (RBC) [Ratio] 12.3 % Normal 11.9-15.3 [facility] Comment on above: Performed By: #### L IPID, B12, FOL, T4F, TSH3, FSH, [id number], CMP, MG, FE and TIBC, SAKINA, CRP #### [address] Erythrocyte sedimentation ra te by Photometric methodOrdered By: Raeann Jang on 07-20-2023 ESR Photometric method (Bld) [Velocity] 15 mm/hr 0-19 [facility] Erythrocytes [#/volume] in B lood by Automated countOrdered By: Raeann Jang on 07-20-2023 RBC (Bld) [#/Vol] 4.11 10*6/uL Normal 3.60-5.00 [facility] Comment on above: Performed By: #### L IPID, B12, FOL, T4F, TSH3, FSH, [id number], CMP, MG, FE and TIBC, SAKINA, CRP #### [address] Estradiolon 07-20-2023 Estradiol 126.0 pg/mL Normal . [facility] Comment on above: Result Comment: Adul t Female: Follicular phase 12.5 - 166.0 Ovulation phase 85.8 - 498.0 Luteal phase 43.8 - 211.0 Postmenopausal <6.0 - 54.7 1st trimester 215.0 - >4300.0 Heather ECLIA methodology PERFORMED BY: [place] [address] PATHOLOGIST HISTORY TUTOR SADAF YOUNGBLOOD M.D. Performed By: #### L IPID, B12, FOL, T4F, TSH3, FSH, [id number], CMP, MG, FE and TIBC, SAKINA, CRP #### [address] Ferritin [Mass/volume] in Se rum or PlasmaOrdered By: Raeann Jang on 07-20-2023 Ferritin [Mass/Vol] 20.3 ng/mL Normal 11.0-306.8 [facility] Comment on above: Performed By: #### L IPID, B12, FOL, T4F, TSH3, FSH, [id number], CMP, MG, FE and TIBC, SAKINA, CRP #### [address] Folateon 07-20-2023 Folate 10.4 ng/mL Normal >5.9 [facility] Comment on above: Result Comment: Yulia te reference range: >5.9 ng/ml The WHO technical consultation on folate and vitamin b12 deficiencies has determined that folate concentrations less than 4 ng/ml are considered deficient. Performed By: #### L IPID, B12, FOL, T4F, TSH3, FSH, [id number], CMP, MG, FE and TIBC, SAKINA, CRP #### [facility] [address] [place] [id number] [facility] Folate [Mass/volume] in Seru m or PlasmaOrdered By: Raeann Jang on 07-20-2023 Folate [Mass/Vol] 10.4 ng/mL >5.9 [facility] Comment on above: Folate reference ran ge: >5.9 ng/mlThe WHO technical consultation on folate and vitamin [id number] has determined that folate concentrations lessthan 4 ng/ml are considered deficient. Follicle Stimulating Hormone on 07-20-2023 Follicle Stimulating Hormone 2.8 m[iU]/mL Normal [facility] Comment on above: Result Comment: FEMA LE NORMALS (PREMENOPAUSE) MID-FOLLICULAR PHASE: 3.9-8.8 mIU/mL MID-CYCLE PEAK: 4.5-22.5 mIU/mL MID-LUTEAL PHASE: 1.8-5.1 mIU/mL FEMALE NORMALS (POSTMENOPAUSE): 16.7-113.6 mIU/mL MALE NORMALS: 1.3-19.3 mIU/mL Performed By: #### L IPID, B12, FOL, T4F, TSH3, FSH, [id number], CMP, MG, FE and TIBC, SAKINA, CRP #### [facility] [address] [place] [address] [facility] Follitropin [Units/volume] i n Serum or PlasmaOrdered By: Raeann Jang on 07-20-2023 Follitropin Qn 2.8 m[IU]/mL [facility] Comment on above: FEMALE NORMALS (FLOWER ENOPAUSE) MID-FOLLICULAR PHASE: 3.9-8.8 mIU/mL MID-CYCLE PEAK: 4.5-22.5 mIU/mL MID-LUTEAL PHASE: 1.8-5.1 mIU/mLFEMALE NORMALS (POSTMENOPAUSE): 16.7-113.6 mIU/mLMALE NORMALS: 1.3-19.3 mIU/mL Free testosterone measuremen t by LC-MS/MSOrdered By: Raeann Jang on 07-20-2023 Testosterone Free [Mass/Vol] 1.5 pg/mL 0.0-4.2 [facility] Comment on above: Performed at: [address] [id number] Director: Alf Simpson PhD, Phone: [phone] at: - [facility] [id number] Director: Jayne Mann MD, Phone: [phone] Glucose [Mass/volume] in Ser um or PlasmaOrdered By: Raeann Jang on 07-20-2023 Glucose [Mass/Vol] 76 mg/dL Normal 70-100 [facility] Comment on above: ADA recommended refe rence rangeRandom Glucose Reference Range is dependent on time and content of last meal. Glucose of more than 200 mg/dL in a nonstressed, ambulatory subject supports the diagnosis of Diabetes Mellitus. Result Comment: [place] om Glucose Reference Range is dependent on time and content of last meal. Glucose of more than 200 mg/dL in a nonstressed, ambulatory subject supports the diagnosis of Diabetes Mellitus. ADA recommended reference range Performed By: #### L IPID, B12, FOL, T4F, TSH3, FSH, [id number], CMP, MG, FE and TIBC, SAKINA, CRP #### [facility] [address] [place] [address] Hematocrit [Volume Fraction] of Blood by Automated countOrdered By: Raeann Jang on 07-20-2023 Hematocrit (Bld) [Volume fraction] 37.1 % Normal 34.0-46.4 [facility] Comment on above: Performed By: #### L IPID, B12, FOL, T4F, TSH3, FSH, [id number], CMP, MG, FE and TIBC, SAKINA, CRP #### [facility] [address] Hemoglobin [Mass/volume] in BloodOrdered By: Raeann Jang on 07-20-2023 Hemoglobin (Bld) [Mass/Vol] 12.5 g/dL Normal 11.8-15.4 [facility] Comment on above: Performed By: #### L IPID, B12, FOL, T4F, TSH3, FSH, [id number], CMP, MG, FE and TIBC, SAKINA, CRP #### [facility] [address] Insulinon 07-20-2023 Insulin 8.2 u[iU]/mL Normal 2.6-24.9 [facility] Comment on above: Result Comment: Perf ormed at: - [facility] [address] [id number] Flux Mixer: Alf Simpson PhD, Phone: [phone] Performed By: #### L IPID, B12, FOL, T4F, TSH3, FSH, [id number], CMP, MG, FE and TIBC, SAKINA, CRP #### [facility] [address] [place] [address] Iron [Mass/volume] in Serum or PlasmaOrdered By: Raeann Jang on 07-20-2023 Iron [Mass/Vol] 122 ug/dL Normal 50-212 [facility] Comment on above: Performed By: #### L IPID, B12, FOL, T4F, TSH3, FSH, [id number], CMP, MG, FE and TIBC, SAKINA, CRP #### [facility] [address] Iron and TIBC Profileon 06-22 % Iron Saturation 28.6 % Normal 20-50 [facility] Comment on above: Performed By: #### L IPID, B12, FOL, T4F, TSH3, FSH, [id number], CMP, MG, FE and TIBC, SAKINA, CRP #### [facility] [address] Total Iron Binding Capacity 427 ug/dL Normal 255-450 [facility] Comment on above: Performed By: #### L IPID, B12, FOL, T4F, TSH3, FSH, [id number], CMP, MG, FE and TIBC, SAKINA, CRP #### [facility] [address] Iron binding capacity [Mass/ volume] in Serum or PlasmaOrdered By: Raeann Jang on 07-20-2023 Iron binding capacity [Mass/Vol] 427 ug/dL 255-450 [facility] Iron saturation [Mass Fracti on] in Serum or PlasmaOrdered By: Raeann Jang on 07-20-2023 Iron saturation [Mass fraction] 28.6 % 20-50 [facility] Leukocytes [#/volume] correc paulie for nucleated erythrocytes in Blood by Automated counOrdered By: Raeann Jang on 07-20-2023 WBC corrected for nucl RBC Auto (Bld) [#/Vol] 6.7 10*3/uL 3.8-11.6 [facility] Leukocytes [#/volume] in Blo od by Automated countOrdered By: Raeann Jang on 07-20-2023 WBC (Bld) [#/Vol] 6.7 10*3/uL Normal 3.8-11.6 [facility] Comment on above: Performed By: #### L IPID, B12, FOL, T4F, TSH3, FSH, [id number], CMP, MG, FE and TIBC, SAKINA, CRP #### [facility] [address] Lipid Panelon 07-20-2023 LDL Cholesterol,Calculated 86 mg/dL Normal 0-100 [facility] Comment on above: Result Comment: LDL ATP III CLASSIFICATION LDL less than 100 mg/dL Optimal LDL 100-129 mg/dL Near or above optimal LDL 130-159 mg/dL Borderline high LDL 160-189 mg/dL High LDL greater than 189 mg/dL Very high Performed By: #### L IPID, B12, FOL, T4F, TSH3, FSH, [id number], CMP, MG, FE and TIBC, SAKINA, CRP #### [facility] [address] Triglyceride w/Reflex 85 mg/dL Normal 0-149 [facility] Comment on above: Result Comment: TRIG ATP III CLASSIFICATION TRIG less than 150 mg/dL Normal TRIG 150-199 mg/dL Borderline high TRIG 200-500 mg/dL High TRIG greater than 500 mg/dL Very high Standard traceable to the Center for Disease Conrtrol and Prevention (CDC) test method. Performed By: #### L IPID, B12, FOL, T4F, TSH3, FSH, [id number], CMP, MG, FE and TIBC, SAKINA, CRP #### [facility] [address] VLDL CHOLESTEROL 17 mg/dL Normal [facility] Comment on above: Performed By: #### L IPID, B12, FOL, T4F, TSH3, FSH, [id number], CMP, MG, FE and TIBC, SAKINA, CRP #### [address] Luteinizing Hormoneon 2022 Luteinizing Hormone 5.5 m[iU]/mL Normal . [facility] Comment on above: Result Comment: Adul t Female: Follicular phase 2.4 - 12.6 Ovulation phase 14.0 - 95.6 Luteal phase 1.0 - 11.4 Postmenopausal 7.7 - 58.5 Performed By: #### L IPID, B12, FOL, T4F, TSH3, FSH, [id number], CMP, MG, FE and TIBC, SAKINA, CRP #### [address] Lymphocytes [#/volume] in Bl ood by Automated countOrdered By: Raeann Jang on 07-20-2023 Lymphocytes (Bld) [#/Vol] 1.6 10*3/uL Normal 1.00-4.8 [facility] Comment on above: Performed By: #### L IPID, B12, FOL, T4F, TSH3, FSH, [id number], CMP, MG, FE and TIBC, SAKINA, CRP #### [address] Lymphocytes/100 leukocytes i n Blood by Automated countOrdered By: Raeann Jang on 07-20-2023 Lymphocytes/100 WBC (Bld) 23.9 % Normal . [facility] Comment on above: Performed By: #### L IPID, B12, FOL, T4F, TSH3, FSH, [id number], CMP, MG, FE and TIBC, SAKINA, CRP #### [facility] [address] MCH [Entitic mass] by Automa paulie countOrdered By: Raeann Jang on 07-20-2023 MCH (RBC) [Entitic mass] 30.5 pg Normal 24.7-34.3 [facility] Comment on above: Performed By: #### L IPID, B12, FOL, T4F, TSH3, FSH, [id number], CMP, MG, FE and TIBC, SAKINA, CRP #### [address] MCHC Auto (RBC) [Mass/Vol]Or dered By: Raeann Jang on 07-20-2023 MCHC (RBC) [Mass/Vol] 33.8 g/dL 32.0-35.0 [facility] MCV [Entitic volume] by Auto mated countOrdered By: Raeann Jang on 07-20-2023 MCV (RBC) [Entitic vol] 90.1 fL Normal 80-100 [facility] Comment on above: Performed By: #### L IPID, B12, FOL, T4F, TSH3, FSH, [id number], CMP, MG, FE and TIBC, SAKINA, CRP #### [address] Magnesium [Mass/volume] in S ulises or PlasmaOrdered By: Raeann Jang on 07-20-2023 Magnesium [Mass/Vol] 1.9 mg/dL Normal 1.9-2.7 [facility] Comment on above: Performed By: #### L IPID, B12, FOL, T4F, TSH3, FSH, [id number], CMP, MG, FE and TIBC, SAKINA, CRP #### [address] Neutrophils [#/volume] in Bl ood by Automated countOrdered By: Raeann Jang on 07-20-2023 Neutrophils (Bld) [#/Vol] 4.7 10*3/uL Normal 1.8-7.7 [facility] Comment on above: Performed By: #### L IPID, B12, FOL, T4F, TSH3, FSH, [id number], CMP, MG, FE and TIBC, SAKINA, CRP #### [facility] [address] No Panel InformationOrdered By: Raeann Jang on 07-20-2023 Estimated GFR (CKD-EPI) > 60.0 mL/Min [facility] Creatinine Clearance (Chem N/A [facility] Nucleated erythrocytes [Pres ence] in Blood by Automated countOrdered By: Raeann Jang on 07-20-2023 Nucleated RBC Auto Ql (Bld) 0.1 /100{WBC} 0-0.5 [facility] Platelet mean volume [Entiti c volume] in Blood by Automated countOrdered By: Raeann Jang on 07-20-2023 Platelet mean volume (Bld) [Entitic vol] 8.8 fL Normal 6.3-10.7 [facility] Comment on above: Performed By: #### L IPID, B12, FOL, T4F, TSH3, FSH, [id number], CMP, MG, FE and TIBC, SAKINA, CRP #### [facility] [address] Platelets [#/volume] in Bloo d by Automated countOrdered By: Raeann Jang on 07-20-2023 Platelets (Bld) [#/Vol] 344 10*3/uL Normal 150-450 [facility] Comment on above: Performed By: #### L IPID, B12, FOL, T4F, TSH3, FSH, [id number], CMP, MG, FE and TIBC, SAKINA, CRP #### [facility] [address] [place] [address] [place] Potassium [Moles/volume] in Serum or PlasmaOrdered By: Raeann Jang on 07-20-2023 Potassium [Moles/Vol] 4.2 mmol/L Normal 3.5-5.1 [facility] Comment on above: Performed By: #### L IPID, B12, FOL, T4F, TSH3, FSH, [id number], CMP, MG, FE and TIBC, SAKINA, CRP #### [facility] [address] Progesteroneon 07-20-2023 Progesterone 13.5 ng/mL Normal . [facility] Comment on above: Result Comment: Foll icular phase 0.1 - 0.9 Luteal phase 1.8 - 23.9 Ovulation phase 0.1 - 12.0 First trimester 11.0 - 44.3 Second trimester 25.4 - 83.3 Third trimester 58.7 - 214.0 Postmenopausal 0.0 - 0.1 Performed at: [facility] [id number] Flux Mixer: Alf Simpson PhD, Phone: [phone] Performed By: #### L IPID, B12, FOL, T4F, TSH3, FSH, [id number], CMP, MG, FE and TIBC, SAKINA, CRP #### [facility] [address] Protein [Mass/volume] in Ser um or PlasmaOrdered By: Raeann Jang on 07-20-2023 Protein [Mass/Vol] 7.0 g/dL Normal 6.4-8.9 [facility] Comment on above: Performed By: #### L IPID, B12, FOL, T4F, TSH3, FSH, [id number], CMP, MG, FE and TIBC, SAKINA, CRP #### [facility] [address] Serum globulin measurement b y calculation (mass/volume)Ordered By: Raeann Jang on 07-20-2023 Globulin (S) [Mass/Vol] 2.5 g/dL Normal [facility] Comment on above: Performed By: #### L IPID, B12, FOL, T4F, TSH3, FSH, [id number], CMP, MG, FE and TIBC, SAKINA, CRP #### [facility] [address] Serum or plasma albumin/glob ulin mass ratioOrdered By: Raeann Jang on 07-20-2023 Albumin/Globulin [Mass ratio] 1.8 {ratio} Normal [facility] Comment on above: Performed By: #### L IPID, B12, FOL, T4F, TSH3, FSH, [id number], CMP, MG, FE and TIBC, SAKINA, CRP #### [facility] [address] Serum or plasma anion gap de terminationOrdered By: Raeann Jang on 07-20-2023 Anion gap [Moles/Vol] 11.4 mmol/L Normal 6.0-15.0 [facility] Comment on above: Performed By: #### L IPID, B12, FOL, T4F, TSH3, FSH, [id number], CMP, MG, FE and TIBC, SAKINA, CRP #### [facility] [address] Serum or plasma estradiol (E 2) measurement (mass/volume)Ordered By: Raeann Jang on 07-20-2023 E2 [Mass/Vol] 126.0 pg/mL . [facility] Comment on above: Adult Female: Follic ular phase 12.5 - 166.0 Ovulation phase 85.8 - 498.0 Luteal phase 43.8 - 211.0 Postmenopausal <6.0 - 54.7 1st trimester 215.0 - >4300.0Roche ECLIA methodology Serum or plasma high density lipoprotein (HDL) cholesterol measurementOrdered By: Raeann Jang on 07-20-2023 Cholesterol in HDL [Mass/Vol] 45 mg/dL Normal 23-92 [facility] Comment on above: HDL CHOL ATP-III CLA SSIFICATION Cardiovascular RiskHDL > or equal to 60 mg/dL LOWHDL < 40 mg/dL HIGH Result Comment: HDL CHOL ATP-III CLASSIFICATION Cardiovascular Risk HDL > or equal to 60 mg/dL LOW HDL < 40 mg/dL HIGH Performed By: #### L IPID, B12, FOL, T4F, TSH3, FSH, [id number], CMP, MG, FE and TIBC, SAKINA, CRP #### [facility] [address] Serum or plasma insulin michael urement (units/volume)Ordered By: Raeann Jang on 07-20-2023 Insulin Qn 8.2 u[iU]/mL 2.6-24.9 [facility] Comment on above: Performed at: CB - [facility] [id number] [place], [place] [id number] Director: Alf Simpson PhD, Phone: [phone] Serum or plasma lutropin mandeep surement (units/volume)Ordered By: Raeann Jang on 07-20-2023 Lutropin Qn 5.5 m[IU]/mL . [facility] Comment on above: Adult Female: Follic ular phase 2.4 - 12.6 Ovulation phase 14.0 - 95.6 Luteal phase 1.0 - 11.4 Postmenopausal 7.7 - 58.5 Serum or plasma progesterone measurement (mass/volume)Ordered By: Raeann Jang on 07-20-2023 Progesterone [Mass/Vol] 13.5 ng/mL . [facility] Comment on above: Follicular phase 0.1 - 0.9 Luteal phase 1.8 - 23.9 Ovulation phase 0.1 - 12.0 First trimester 11.0 - 44.3 Second trimester 25.4 - 83.3 Third trimester 58.7 - 214.0 Postmenopausal 0.0 - 0.1Performed at: CB - [facility] [id number] [place], [place] [id number] Director: Alf Simpson PhD, Phone: [phone] Serum or plasma total choles terol/high density lipoprotein (HDL) cholesterol mass ratOrdered By: Raeann Jang on 07-20-2023 Cholesterol.total/Adriana sterol in HDL [Mass ratio] 3.3 {ratio} Normal <5.0 [facility] Comment on above: Performed By: #### L IPID, B12, FOL, T4F, TSH3, FSH, [id number], CMP, MG, FE and TIBC, SAKINA, CRP #### [facility] [address] Sodium [Moles/volume] in Ser um or PlasmaOrdered By: Raeann Jang on 07-20-2023 Sodium [Moles/Vol] 140 mmol/L Normal 136-145 [facility] Comment on above: Performed By: #### L IPID, B12, FOL, T4F, TSH3, FSH, [id number], CMP, MG, FE and TIBC, SAKINA, CRP #### [facility] [address] Testosterone Free TotalOrder ed By: Raeann Jang on 07-20-2023 Testosterone [Mass/Vol] 25 ng/dL Normal 13-71 [facility] Comment on above: Performed By: #### L IPID, B12, FOL, T4F, TSH3, FSH, [id number], CMP, MG, FE and TIBC, SAKINA, CRP #### [facility] [address] Testosterone Free Totalon Testosterone,Free 1.5 pg/mL Normal 0.0-4.2 [facility] Comment on above: Result Comment: Perf ormed at: - [facility] [id number] Flux Mixer: Alf Simpson PhD, Phone: [phone] Performed at: - [facility] [address] [id number] Flux Mixer: Jayne Mann MD, Phone: [phone] Performed By: #### L IPID, B12, FOL, T4F, TSH3, FSH, [id number], CMP, MG, FE and TIBC, SAKINA, CRP #### [facility] [address] Thyrotropin [Units/volume] i n Serum or PlasmaOrdered By: Raeann Jang on 07-20-2023 TSH Qn 1.01 m[IU]/L Normal 0.45-5.33 [facility] Comment on above: Performed By: #### L IPID, B12, FOL, T4F, TSH3, FSH, [id number], CMP, MG, FE and TIBC, SAKINA, CRP #### [facility] [address] Thyroxine (T4) free [Mass/vo lume] in Serum or PlasmaOrdered By: Raeann Jang on 07-20-2023 Free T4 [Mass/Vol] 0.92 ng/dL Normal 0.61-1.12 [facility] Comment on above: Performed By: #### L IPID, B12, FOL, T4F, TSH3, FSH, [id number], CMP, MG, FE and TIBC, SAKINA, CRP #### [facility] [address] Transferrin [Mass/volume] in Serum or PlasmaOrdered By: Raeann Laine on 07-20-2023 Transferrin [Mass/Vol] 305 mg/dL Normal 203-362 [facility] Comment on above: Performed By: #### L IPID, B12, FOL, T4F, TSH3, FSH, [id number], CMP, MG, FE and TIBC, SAKINA, CRP #### [facility] [address] Triglyceride [Mass/volume] i n Serum or PlasmaOrdered By: Raeann Laine on 07-20-2023 Triglyceride [Mass/Vol] 85 mg/dL 0-149 [facility] Comment on above: TRIG ATP III CLASSIF ICATIONTRIG less than 150 mg/dL NormalTRIG 150-199 mg/dL Borderline highTRIG 200-500 mg/dL High TRIG greater than 500 mg/dL Very highStandard traceable to the Center for Disease Conrtrol and Prevention (CDC) test method. Triiodothyronine (T3) Freeon 07-20-2023 Triiodothyronine (T3) Free 4.11 pg/mL High 2.50-3.90 [facility] Comment on above: Result Comment: PERF ORMED BY: [place] [address] PATHOLOGIST HISTORY TUTOR SADAF YOUNGBLOOD M.D. Performed By: #### L IPID, B12, FOL, T4F, TSH3, FSH, [id number], CMP, MG, FE and TIBC, SAKINA, CRP #### [facility] [address] Triiodothyronine (T3) Free [ Mass/volume] in Serum or PlasmaOrdered By: Raeann Laine on 07-20-2023 Free T3 [Mass/Vol] 4.11 pg/mL 2.50-3.90 [facility] Urea nitrogen [Mass/volume] in Serum or PlasmaOrdered By: Raeann Jang on 07-20-2023 Urea nitrogen [Mass/Vol] 8 mg/dL Normal 7-25 [facility] Comment on above: Performed By: #### L IPID, B12, FOL, T4F, TSH3, FSH, [id number], CMP, MG, FE and TIBC, SAKINA, CRP #### [facility] [address] Vitamin B12 ser/plasOrdered By: Raeann Jang on 07-20-2023 Cobalamin (Vitamin B12) [Mass/Vol] 384 pg/mL Normal 180-914 [facility] Comment on above: Performed By: #### L IPID, B12, FOL, T4F, TSH3, FSH, [id number], CMP, MG, FE and TIBC, SAKINA, CRP #### [facility] [address] Vitamin D 25 Hydroxy Totalon 07-20-2023 Vitamin D 25 Hydroxy Total 49.5 ng/mL Normal 30-100 [facility] Comment on above: Result Comment: NATALIE MIN D STATUS 25(OH)VITAMIN D RANGE (ng/mL) Deficient <20 Insufficient 20 to <30 Sufficient 30 to 100 Reference: Ambar MF,Manish NC, Donis MANDEL, et al. Evaluation,treatment, and prevention of vitamin D deficiency; an Endocrine Society clinical practice guideline. JCEM. 2010; 96(7):1911-30. PERFORMED BY: [address] [place] [address] PATHOLOGIST HISTORY TUTOR SADAF YOUNGBLOOD M.D. Performed By: #### L IPID, B12, FOL, T4F, TSH3, FSH, [id number], CMP, MG, FE and TIBC, SAKINA, CRP #### [facility] [address] [place] [id number] [facility] Vitamin D+Metabolites [Mass/ volume] in Serum or PlasmaOrdered By: Raeann Jang on 07-20-2023 Vitamin D+Metabolites [Mass/Vol] 49.5 ng/mL 30-100 [facility] Comment on above: VITAMIN D STATUS [...] 05-27-2023 ALT [Catalytic activity/Vol] 10 U/L 7-52 [facility] Albumin [Mass/volume] in Ser um or Plasma by Bromocresol green (BCG) dye binding methoOrdered By: Tiarra Childs on 05-27-2023 Albumin BCG dye [Mass/Vol] 4.4 g/dL 3.5-5.7 [facility] Alkaline phosphatase [Enzyma tic activity/volume] in Serum or PlasmaOrdered By: Tiarra Childs on 05-27-2023 ALP [Catalytic activity/Vol] 53 U/L 34-104 [facility] Aspartate aminotransferase [ Enzymatic activity/volume] in Serum or PlasmaOrdered By: Tiarra Childs on 05-27-2023 AST [Catalytic activity/Vol] 20 U/L 13-39 [facility] Basophils Auto (Bld) [#/Vol] Ordered By: Tiarra Childs on 05-27-2023 Basophils (Bld) [#/Vol] 0.0 10*3/uL 0.0-0.2 [facility] Basophils/100 WBC Auto (Bld) Ordered By: Tiarra Childs on 05-27-2023 Basophils/100 WBC (Bld) 0.5 % . [facility] Bilirubin.total [Mass/volume ] in Serum or PlasmaOrdered By: Tiarra Childs on 05-27-2023 Bilirubin [Mass/Vol] 1.5 mg/dL 0.3-1.0 [facility] Comment on above: Samples from patient s who have taken Naproxen have shown spurious elevation in Total Bilirubin levels. A metabolite of Naproxen, O-desmethylnaproxen, has been shown to interfere with the Radhika method for measuring Total Bilirubin. Calcium [Mass/volume] in Ser um or PlasmaOrdered By: Tiarra Childs on 05-27-2023 Calcium [Mass/Vol] 10.0 mg/dL 8.6-10.3 [facility] Carbon dioxide, total [Moles /volume] in Serum or PlasmaOrdered By: Tiarra Childs on 05-27-2023 CO2 [Moles/Vol] 27.0 mmol/L 21.0-31.0 [facility] Chloride [Moles/volume] in S ulises or PlasmaOrdered By: Tiarra Childs on 05-27-2023 Chloride [Moles/Vol] 104 mmol/L 98-107 [facility] Choriogonadotropin.beta subu nit [Units/volume] in Serum or PlasmaOrdered By: Tiarra Childs on 05-27-2023 HCG.beta subunit Qn 400.13 m[IU]/mL [facility] Comment on above: Approximate Approxim ate hCG Gestational Age Range (mIU/ml) (weeks)0.2-1 5-50 1-2 50-500 2-3 100-5,000 3-4 500-10,000 4-5 1,000-50,000 5-6 10,000-100,000 6-8 15,000-200,000 8-12 10,000-100,000 Creatinine [Mass/volume] in Serum or PlasmaOrdered By: Tiarra Childs on 05-27-2023 Creatinine [Mass/Vol] 0.74 mg/dL 0.60-1.20 [facility] Eosinophils Auto (Bld) [#/Vo l]Ordered By: Tiarra Childs on 05-27-2023 Eosinophils (Bld) [#/Vol] 0.1 10*3/uL 0.0-0.45 [facility] Eosinophils/100 WBC Auto (Bl d)Ordered By: Tiarra Childs on 05-27-2023 Eosinophils/100 WBC (Bld) 1.5 % . [facility] Erythrocyte distribution wid th Auto (RBC) [Ratio]Ordered By: Tiarra Childs on 05-27-2023 Erythrocyte distribution width (RBC) [Ratio] 13.2 % 11.9-15.3 [facility] Ferritin [Mass/volume] in Se rum or PlasmaOrdered By: Tiarra Childs on 05-27-2023 Ferritin [Mass/Vol] 10.1 ng/mL 11.0-306.8 [facility] Folate [Mass/volume] in Seru m or PlasmaOrdered By: Tiarra Childs on 05-27-2023 Folate [Mass/Vol] 16.2 ng/mL >5.9 [facility] Comment on above: Folate reference ran ge: >5.9 ng/mlThe WHO technical consultation on folate and vitamin [id number] has determined that folate concentrations lessthan 4 ng/ml are considered deficient. Globulin Calc (S) [Mass/Vol] Ordered By: Tiarra Childs on 05-27-2023 Globulin (S) [Mass/Vol] 3.0 g/dL [facility] Glucose [Mass/volume] in Ser um or PlasmaOrdered By: Tiarra Childs on 05-27-2023 Glucose [Mass/Vol] 73 mg/dL 70-100 [facility] Comment on above: ADA recommended refe rence rangeRandom Glucose Reference Range is dependent on time and content of last meal. Glucose of more than 200 mg/dL in a nonstressed, ambulatory subject supports the diagnosis of Diabetes Mellitus. Glucose mean value [Mass/vol ume] in Blood Estimated from glycated hemoglobinOrdered By: Tiarra Childs on 05-27-2023 Average glucose Estimated from glycated hemoglobin (Bld) [Mass/Vol] 94 mg/dL [facility] Hematocrit Auto (Bld) [Volum e fraction]Ordered By: Tiarra Childs on 05-27-2023 Hematocrit (Bld) [Volume fraction] 37.5 % 34.0-46.4 [facility] Hemoglobin A1c percentageOrd ered By: Tiarra Childs on 05-27-2023 HbA1c (Bld) [Mass fraction] 4.9 % 4.3-5.6 [facility] Comment on above: Increased risk for d iabetes: 5.7 - 6.4diabetes: >6.4glycemic control for adults with diabetes: <7.0 Hemoglobin [Mass/volume] in BloodOrdered By: Tiarra Childs on 05-27-2023 Hemoglobin (Bld) [Mass/Vol] 13.1 g/dL 11.8-15.4 [facility] Iron [Mass/volume] in Serum or PlasmaOrdered By: Tiarra Childs on 05-27-2023 Iron [Mass/Vol] 94 ug/dL 50-212 [facility] Iron binding capacity [Mass/ volume] in Serum or PlasmaOrdered By: Tiarra Childs on 05-27-2023 Iron binding capacity [Mass/Vol] 514 ug/dL 255-450 [facility] Iron saturation [Mass Fracti on] in Serum or PlasmaOrdered By: Tiarra Childs on 05-27-2023 Iron saturation [Mass fraction] 18.3 % 20-50 [facility] Leukocytes [#/volume] correc paulie for nucleated erythrocytes in Blood by Automated counOrdered By: Tiarra Childs on 05-27-2023 WBC corrected for nucl RBC Auto (Bld) [#/Vol] 6.3 10*3/uL 3.8-11.6 [facility] Lymphocytes Auto (Bld) [#/Vo l]Ordered By: Tiarra Childs on 05-27-2023 Lymphocytes (Bld) [#/Vol] 1.8 10*3/uL 1.00-4.8 [facility] Lymphocytes/100 WBC Auto (Bl d)Ordered By: Tiarra Childs on 05-27-2023 Lymphocytes/100 WBC (Bld) 29.2 % . [facility] MCH Auto (RBC) [Entitic mass ]Ordered By: Tiarra Childs on 05-27-2023 MCH (RBC) [Entitic mass] 31.5 pg 24.7-34.3 [facility] MCHC Auto (RBC) [Mass/Vol]Or dered By: Tiarra Childs on 05-27-2023 MCHC (RBC) [Mass/Vol] 34.9 g/dL 32.0-35.0 [facility] MCV Auto (RBC) [Entitic vol] Ordered By: Tiarra Childs on 05-27-2023 MCV (RBC) [Entitic vol] 90.3 fL 80-100 [facility] Monocytes Auto (Bld) [#/Vol] Ordered By: Tiarra Childs on 05-27-2023 Monocytes (Bld) [#/Vol] 0.4 10*3/uL 0.0-0.8 [facility] Monocytes/100 WBC Auto (Bld) Ordered By: Tiarra Childs on 05-27-2023 Monocytes/100 WBC (Bld) 6.7 % . [facility] Neutrophils Auto (Bld) [#/Vo l]Ordered By: Tiarra Childs on 05-27-2023 Neutrophils (Bld) [#/Vol] 3.9 10*3/uL 1.8-7.7 [facility] Neutrophils/100 WBC Auto (Bl d)Ordered By: Tiarra Childs on 05-27-2023 Neutrophils/100 WBC (Bld) 62.1 % . [facility] No Panel InformationOrdered By: Tiarra Childs on 05-27-2023 Estimated GFR (CKD-EPI) > 60.0 mL/Min [facility] Creatinine Clearance (Chem N/A [facility] Nucleated erythrocytes [Pres ence] in Blood by Automated countOrdered By: Tiarra Childs on 05-27-2023 Nucleated RBC Auto Ql (Bld) 0.1 /100{WBC} 0-0.5 [facility] Platelet mean volume Auto (B ld) [Entitic vol]Ordered By: Tiarra Childs on 05-27-2023 Platelet mean volume (Bld) [Entitic vol] 8.6 fL 6.3-10.7 [facility] Platelets Auto (Bld) [#/Vol] Ordered By: Tiarra Childs on 05-27-2023 Platelets (Bld) [#/Vol] 350 10*3/uL 150-450 [facility] Potassium [Moles/volume] in Serum or PlasmaOrdered By: Tiarra Childs on 05-27-2023 Potassium [Moles/Vol] 4.1 mmol/L 3.5-5.1 [facility] Protein [Mass/volume] in Ser um or PlasmaOrdered By: Tiarra Childs on 05-27-2023 Protein [Mass/Vol] 7.4 g/dL 6.4-8.9 [facility] RBC Auto (Bld) [#/Vol]Ordere d By: Tiarra Childs on 05-27-2023 RBC (Bld) [#/Vol] 4.15 10*6/uL 3.60-5.00 [facility] Serum or plasma albumin/glob ulin mass ratioOrdered By: Tiarra Childs on 05-27-2023 Albumin/Globulin [Mass ratio] 1.5 {ratio} [facility] Serum or plasma anion gap de terminationOrdered By: Tiarra Childs on 05-27-2023 Anion gap [Moles/Vol] 10.1 mmol/L 6.0-15.0 [facility] Serum or plasma insulin michael urement (units/volume)Ordered By: Tiarra Childs on 05-27-2023 Insulin Qn 5.5 u[iU]/mL 2.6-24.9 [facility] Comment on above: Performed at: [address] Director: Alf Simpson PhD, Phone: [phone] Sodium [Moles/volume] in Ser um or PlasmaOrdered By: Tiarra Childs on 05-27-2023 Sodium [Moles/Vol] 137 mmol/L 136-145 [facility] Thyrotropin [Units/volume] i n Serum or PlasmaOrdered By: Tiarra Childs on 05-27-2023 TSH Qn 0.95 m[IU]/L 0.45-5.33 [facility] Thyroxine (T4) free [Mass/vo lume] in Serum or PlasmaOrdered By: Tiarra Childs on 05-27-2023 Free T4 [Mass/Vol] 0.80 ng/dL 0.61-1.12 [facility] Transferrin [Mass/volume] in Serum or PlasmaOrdered By: Tiarra Childs on 05-27-2023 Transferrin [Mass/Vol] 367 mg/dL 203-362 [facility] Urea nitrogen [Mass/volume] in Serum or PlasmaOrdered By: Tiarra Childs on 05-27-2023 Urea nitrogen [Mass/Vol] 9 mg/dL 7-25 [facility] Vitamin B12 ser/plasOrdered By: Tiarra Childs on 05-27-2023 Cobalamin (Vitamin B12) [Mass/Vol] 340 pg/mL 180-914 [facility] Vitamin D+Metabolites [Mass/ volume] in Serum or PlasmaOrdered By: Tiarra Childs on 05-27-2023 Vitamin D+Metabolites [Mass/Vol] 43.5 ng/mL 30-100 [facility] Comment on above: VITAMIN D STATUS 25( [place])VITAMIN D RANGE (ng/mL) Deficient <20 Insufficient 20 to <30Sufficient 30 to 100Reference: Ambar MF,Manish NC, Donis MANDEL, et al. Evaluation,treatment, and prevention of vitamin D deficiency; an Endocrine Society clinical practice guideline. JCEM. 2010; 96(7):1911-30. WBC Auto (Bld) [#/Vol]Ordere d By: Tiarra Childs on 05-27-2023 WBC (Bld) [#/Vol] 6.3 10*3/uL 3.8-11.6 [facility] COVID-19 Detected/Not Detect edOrdered By: Tiarra Childs on 12-09-2022 SARS-CoV-2 (COVID-19) RNA KYLAH+non-probe Ql (Nph) Not detected Not Detecte [facility] Comment on above: This is a duplicate RP2.1 COVID (PCR) result to be used for statistical tracking purpose only. Respiratory pathogens DNA an d RNA panel - Nasopharynx by KYLAH with non-probe detectionOrdered By: Tiarra Childs on 12-09-2022 Respiratory pathogens DNA and RNA panel KYLAH+non-probe (Nph) [facility] CBC AUTO DIFFon 12-04-2022 BASO # 0.0 103/ul Normal 0.0-0.1 [facility] Comment on above: Performed By: #### C BC #### [facility] [address] [address] [address] Angelica Smith Basophils/100 WBC (Bld) 0.7 % Normal 0.2-2.0 [facility] Comment on above: Performed By: #### C BC #### [facility] [address] [place] [address] Dr. Angelica Smith EO # 0.1 103/ul Normal 0.0-0.7 [facility] Comment on above: Performed By: #### C BC #### [facility] [address] [place] [address] Dr. Angelica Smith Eosinophils/100 WBC (Bld) 1.1 % Normal 0.9-7.0 [facility] Comment on above: Performed By: #### C BC #### [facility] [address] [place] [address] Dr. Angelica Smith Erythrocyte distribution width (RBC) [Ratio] 12.1 % Normal 11.0-15.0 [facility] Comment on above: Performed By: #### C BC #### [facility] [address] [place] [address] Dr. Angelica Smith Hematocrit (Bld) [Volume fraction] 39.3 % Normal 36.0-48.0 [facility] Comment on above: Performed By: #### C BC #### [facility] [address] [place] [address] Dr. Angelica Smith Hemoglobin (Bld) [Mass/Vol] 13.3 g/dL Normal 12.0-16.0 [facility] Comment on above: Performed By: #### C BC #### [facility] [address] [place] [address] Dr. Angelica Smith IG # 0.01 10e3/ul Normal 0.00-0.03 [facility] Comment on above: Performed By: #### C BC #### [facility] [address] [place] [address] Dr. Angelica Smith IG % 0.2 % Normal 0.0-0.5 [facility] Comment on above: Performed By: #### C BC #### [facility] [address] [place] [address] Dr. Angelica Smith LYMPH # 1.9 103/ul Normal 1.2-3.8 [facility] Comment on above: Performed By: #### C BC #### [facility] [address] [place] [address] Dr. Angelica Smith Lymphocytes/100 WBC (Bld) 31.4 % Normal 20.5-60.0 [facility] Comment on above: Performed By: #### C BC #### [facility] [address] [place] [address] Dr. Angelica Smith MANUAL DIFF REQ NO Normal [facility] Comment on above: Performed By: #### C BC #### [facility] [address] [place] [address] Dr. Angelica Smith MCH (RBC) [Entitic mass] 30.3 pg Normal 26.7-34.0 [facility] Comment on above: Performed By: #### C BC #### [facility] [address] [place] [address] Dr. Angelica Smith MCHC (RBC) [Mass/Vol] 33.8 g/dL Normal 29.9-35.2 [facility] Comment on above: Performed By: #### C BC #### [facility] [address] [place] [address] Dr. Angelica Smith MCV (RBC) [Entitic vol] 89.5 fL Normal 81.0-99.0 [facility] Comment on above: Performed By: #### C BC #### [facility] [address] [place] [address] Dr. Angelica Smith MONO # 0.5 103/ul Normal 0.3-0.8 [facility] Comment on above: Performed By: #### C BC #### [facility] [address] [place] [address] Dr. Angelica Smith Monocytes/100 WBC (Bld) 7.4 % Normal 1.7-12.0 [facility] Comment on above: Performed By: #### C BC #### [facility] [address] [place] [address] Dr. Angelica Smith NEUT # 3.6 103/ul Normal 1.4-6.5 [facility] Comment on above: Performed By: #### C BC #### [facility] [address] [place] [address] Dr. Angelica Smith Neutrophils/100 WBC (Bld) 59.2 % Normal 43.0-75.0 [facility] Comment on above: Performed By: #### C BC #### [facility] [address] [place] [address] Dr. Angelica Smith Platelet mean volume (Bld) [Entitic vol] 9.7 fL Normal 9.5-13.5 [facility] Comment on above: Performed By: #### C BC #### [facility] [address] [place] [address] Dr. Angelica Smith PLT 289 103/ul Normal 150-450 [facility] Comment on above: Performed By: #### C BC #### [facility] [address] [place] [address] Dr. Angelica Smith RBC 4.39 106/ul Normal 4.20-5.40 [facility] Comment on above: Performed By: #### C BC #### [facility] [address] [place] [address] Dr. Angelica Smith WBC 6.1 103/ul Normal 4.0-11.0 [facility] Comment on above: Performed By: #### C BC #### [facility] [address] [place] [address] Dr. Angelica Smith PREG QUANT HCGon 12-04-2022 HCG QUANT <1 Normal [facility] Comment on above: Performed By: #### P REGQNT #### [facility] [address] [place] [address] Dr. Angelica Smith HCG RANGE SEE BELOW Normal [facility] Comment on above: Result Comment: 5-50 0.2-1 WEEK 50-500 1-2 WEEKS 100-5,000 2-3 WEEKS 500-10,000 3-4 WEEKS 1,000-50,000 4-5 WEEKS 10,000-100,000 5-6 WEEKS 15,000-200,000 6-8 WEEKS 10,000-100,000 2-3 MONTHS Performed By: #### P REGQNT #### [facility] [address] [place] [address] Dr. Angelica Smith Albumin [Mass/volume] in Ser um or PlasmaOrdered By: Tiarra Childs on 10-29-2022 Albumin [Mass/Vol] 4.3 g/dL 3.2-5.5 [facility] Alternaria alternata IgE Ab [Units/volume] in SerumOrdered By: Tiarra Childs on 10-29-2022 A. alternata IgE Qn (S) <0.10 kU/L Class 0 [facility] Indonesian house dust mite IgE Ab [Units/volume] in SerumOrdered By: Tiarra Childs on 10-29-2022 Indonesian house dust mite IgE Qn (S) 0.10 kU/L Class 0/I [facility] Aspergillus fumigatus IgE Ab [Units/volume] in SerumOrdered By: Tiarra Childs on 10-29-2022 A. fumigatus IgE Qn (S) <0.10 kU/L Class 0 [facility] Shaffer's yeast IgE Ab [Units/ volume] in SerumOrdered By: Tiarra Childs on 10-29-2022 Shaffer's yeast IgE Qn (S) <0.10 kU/L Class 0 [facility] Comment on above: Performed at: [address] [id number] Director: Jayne Mann MD, Phone: [phone] Banana IgE Ab [Units/volume] in SerumOrdered By: Tiarra Childs on 10-29-2022 Banana IgE Qn (S) <0.10 kU/L Class 0 [facility] Barley IgE Ab [Units/volume] in SerumOrdered By: Tiarra Childs on 10-29-2022 Barley IgE Qn (S) 0.40 kU/L Class I [facility] Beef IgE Ab [Units/volume] i n SerumOrdered By: Tiarra Childs on 10-29-2022 Beef IgE Qn (S) <0.10 kU/L Class 0 [facility] Bermuda grass IgE Ab [Units/ volume] in SerumOrdered By: Tiarra Childs on 10-29-2022 Bermuda grass IgE Qn (S) <0.10 kU/L Class 0 [facility] Boxelder IgE Ab [Units/volum e] in SerumOrdered By: Tiarra Childs on 10-29-2022 Boxelder IgE Qn (S) <0.10 kU/L Class 0 [facility] Cheese cheddar type IgE Ab [ Units/volume] in SerumOrdered By: Tiarra Childs on 10-29-2022 Cheese cheddar type IgE Qn (S) <0.10 kU/L Class 0 [facility] Cladosporium herbarum IgE Ab [Units/volume] in SerumOrdered By: Tiarra Childs on 10-29-2022 C. herbarum IgE Qn (S) <0.10 kU/L Class 0 [facility] Cockroach IgE Ab [Units/volu me] in SerumOrdered By: Tiarra Childs on 10-29-2022 Cockroach IgE Qn (S) 0.44 kU/L Class I [facility] [place] IgE Ab [Units/volume] i n SerumOrdered By: Tiarra Childs on 10-29-2022 [place] IgE Qn (S) <0.10 kU/L Class 0 [facility] Wahkiacus IgE Ab [Units/vol ume] in SerumOrdered By: Tiarra Childs on 10-29-2022 Wahkiacus IgE Qn (S) <0.10 kU/L Class 0 [facility] Cow milk IgE Ab [Units/volum e] in SerumOrdered By: Tiarra Childs on 10-29-2022 Cow milk IgE Qn (S) <0.10 kU/L Class 0 [facility] Creatinine and Glomerular fi ltration rate.predicted panel (S/P/Bld)Ordered By: Tiarra Childs on 10-29-2022 Creatinine [Mass/Vol] 0.65 mg/dL 0.44-1.03 [facility] Dog dander IgE Ab [Units/vol ume] in SerumOrdered By: Tiarra Childs on 10-29-2022 Dog dander IgE Qn (S) 0.12 kU/L Class 0/I [facility] Estimated glomerular filtrat ion rate (GFR) non- AmericanOrdered By: Tiarra Childs on 10-29-2022 GFR/1.73 sq M.predicted among non-blacks MDRD (S/P/Bld) [Vol rate/Area] > 60 mL/Min [facility] house dust mite IgE Ab [Units/volume] in SerumOrdered By: Tiarra Childs on 10-29-2022 house dust mite IgE Qn (S) 0.26 kU/L Class 0/I [facility] Free testosterone measuremen t by LC-MS/MSOrdered By: Tiarra Childs on 10-29-2022 Testosterone Free [Mass/Vol] 3.7 pg/mL 0.0-4.2 [facility] Comment on above: Performed at: [address] [id number] Director: Afl Simpson PhD, Phone: [phone] at: [facility] [id number] Director: Jayne Mann MD, Phone: [phone] Gluten IgE Ab [Units/volume] in SerumOrdered By: Tiarra Childs on 10-29-2022 Gluten IgE Qn (S) <0.10 kU/L Class 0 [facility] Hepatitis B virus surface Ag [Presence] in Serum or Plasma by ImmunoassayOrdered By: Tiarra Childs on 10-29-2022 HBV surface Ag IA Ql Negative Negative [facility] Hepatitis C virus RNA [Units /volume] (viral load) in Serum or Plasma by KYLAH with probOrdered By: Tiarra Childs on 10-29-2022 HCV RNA KYLAH+probe Qn N/A [facility] Hepatitis C virus RNA [log u nits/volume] (viral load) in Serum or Plasma by KYLAH withOrdered By: Tiarra Childs on 10-29-2022 HCV RNA KYLAH+probe [Log units/Vol] N/A [facility] Human leukocyte antigen (HLA ) DQ2 detectionOrdered By: Tiarra Childs on 10-29-2022 HLA-DQ2 Ql (Bld/Tiss) Negative . [facility] Human leukocyte antigen (HLA ) DQ8 detectionOrdered By: Tiarra Childs on 10-29-2022 HLA-DQ8 Ql (Bld/Tiss) Negative . [facility] Comment on above: Final Results:DQA1*0 5:EETCV,-DQB1*03:EETKC,-Code Translation:EETCV 05:01:05:05/25:07/25:08/24:30/01:14 :16:17N/05:20:2405:25:26 :28:29Q/05:30:32/05:34/05:35 /05:37/05:39/05:4205:4305:4405:45/05:46 /05:48/05:50/05:51/05:53/05:58/05:59/05:60 /05:62/05:64EETKC 03:0103:10:1603:19/03:21/03:22/03:24 /03:27/03:28/03:29/03:35/03:36/03:42/03:44 /03:46/03:47/03:48/03:49/03:50/03:51/03:52 /03:53/03:54/03:55/03:56/03:57/03:58/03:59 /03:60/03:69/03:73/03:75/03:76/03:77/03:78 /03:82/03:83/03:84N/03:92/03:93/03:94 /03:101/03:102/03:103/03:108/03:109/03:114 /03:115/03:116/03:118N/03:119/03:120 /03:121/03:122/03:127/03:128/03:129/03:130 /03:131/03:133/03:134/03:135/03:139/03:140 /03:142/03:143/03:144/03:147/03:148/03:151 /03:152/03:154/03:157/03:158/03:159/03:160 /03:162/03:163/03:164/03:165/:166/:167 /03:169/03:170/03:171/03:173/03:182/03:183 /03:186/03:188/03:191/03:192/03:193/03:196 /03:197Q/03:198/03:201/:202/03:206 /03:207/03:208/03:216/03:218/03:219/03:231 /03:232/03:235/03:236/03:241/:242/03:243 /:246/:252/:253/03:254/03:255/03:257 /03:260/03:264/03:266/03:267/03:268/03:271 /03:275/03:276N/03:281/:284/:285 /03:288/03:290/03:291/03:292/03:293/03:294 /03:297/03:302/03:303N/03:305/03:306 /03:307/03:309/03:311/03:312/03:314/03:317 /03:326/03:328/03:329/03:330/03:331 /03:338N/03:340N/03:341/03:342/03:347 /03:350/03:353/03:354N/03:358N/03:361 /03:366/03:370/03:372/03:373/03:377/03:378 /03:380/03:385N/03:387/03:389/03:390 /03:391/03:394/03:396/03:399N/03:400N /03:404/03:407N/03:408/03:417/03:418 /03:419/03:420/03:421/03:423/03:424/03:425 /03:426/:427N/03:428/03:430/03:431 /03:432/03:434/03:435/03:436/03:438/03:439 /03:448/03:449/03:451/03:454/03:455/03:458 /03:460/03:465/03:467/03:468/03:469/03:470 /03:472/03:473N/03:475/03:476/03:480Q /03:482/03:483/03:486/03:488N/03:491/03:492The patient is positive for DQA1*05, one half of the JU3rdltgybwfyi. The Celiac Disease risk from the HLA DQA/DQBgenotype is approximately 1:1842 (0.05%). This is lessthan the 1% risk in the general population.Allele interpretation for all loci based on IMGT/HLAdatabase version 3.49.0[facility] CLIA ID Number [id number] than 95% of celiac patients are positive for eitherDQ2 or DQ8 (Kirt and Neela, (1993) [id number]). However these antigens may also be present inpatients who do not have Celiac disease. IgE [Units/volume] in Serum or PlasmaOrdered By: Tiarra Childs on 10-29-2022 IgE Qn 5 [IU]/mL 6-495 [facility] - Chemistry and C hemistry - challengeOrdered By: Tiarra Childs on 10-29-2022 Testosterone [Mass/Vol] 41 ng/dL 13-71 [facility] [place] IgE Ab [Uni ts/volume] in SerumOrdered By: Tiarra Childs on 10-29-2022 [place] IgE Qn (S) 0.19 kU/L Class 0/I [facility] Mouse urine proteins IgE Ab [Units/volume] in SerumOrdered By: Tiarra Childs on 10-29-2022 Mouse urine proteins IgE Qn (S) <0.10 kU/L Class 0 [facility] No Panel InformationOrdered By: Tiarra Childs on 10-29-2022 Allergen Note See comment . [facility] Comment on above: Levels of Specific I gE Class Description of Class ----- < 0.10 0 Negative 0.10 - 0.31 0/I Equivocal/Low 0.32 - 0.55 I Low 0.56 - 1.40 II Moderate 1.41 - 3.90 III High 3.91 - 19.00 IV Very High 19.01 - 100.00 V Very High >100.00 Very High C-Peptide 1.7 ng/mL 1.1-4.4 [facility] Comment on above: C-Peptide reference interval is for fasting patients.Performed at: [facility] [id number] Director: Alf Simpson PhD, Phone: [phone] Celiac Gene Interpretation See comment . [facility] Comment on above: References:1. Fidel CROOKS and Krystin Lock. Celiac Disease. N Eng J Med 2007; 357:9672-2357.2. Megiorni F, Sinclair B, Bonamico M et al. HLA-DQ and risk gradient for celiac disease. Hum Immunol 2009; 70:55-59.3. Bandar MM, Rigo TC, Raven FM et al. Stratifying risk for celiac disease in a large at-risk [facility] population by using HLA alleles. Clin Gastroenterol Hepatol 2009; 7:966-971.4. Kirt PALMER and Kieran BA. (2005). Celiac Disease Genetics: Current Concepts and Practical Applications. Clin Gastroenterol and Hepat 3:843-851.5. Yamile CL, Andrew DO, Fidel CROOKS, et al. Celiac Disease. In: Lori RA, Sang TC, Nigel CR, Je K, editors. [facility]), [facility] [place], [place], March 22, 2008:1-27. http://www.Yumit.nlm.nih.gov/ann marie/br.fcgi?book=genepart=ce liac PMID [id number] (PubMed)6. Luis Lim. Emerging concepts in celiac disease. Curr Opin Pediatr 2004;16:552-559.Performed at: [facility] [id number] [place], [place] [id number] Director: Dajuan Dickinson PhD, Phone: [id number] Dehydroepiandrosterone Sulfate 368.0 ug/dL 110.0-431. 7 [facility] Estimated GFR () > 60 mL/Min [facility] Comment on above: GFR estimated refere nce range: According to KDOQI guidelines, <60 ml/min/1.73m2 is sufficient to diagnose a patient with chronic kidney disease. Hepatitis A IgM Antibody Negative Negative [facility] Hepatitis B Core IgM Antibody Negative Negative [facility] Hepatitis C Interpretation See comment . [facility] Comment on above: NegativeNot infected with HCV, unless recent infection issuspected or other evidence exists to indicate HCVinfection.Performed at: - [facility] [address] [id number] Director: Alf Simpson PhD, Phone: [phone] Hepatitis C RNA Quantitative N/A [facility] HLA Genotype Interpretation See comment . [facility] Comment on above: This test was perfor med using Polymerase ChainReaction/(PCR)Sequence Specific Oligonucleotide Probes(SSOP) ([place]lettie) technique. Sequence Based Typing (SBT)and/or Sequence Specific Primers (SSP) may be used assupplemental methods when necessary. Please contact HLACustomer Service at if you have anyquestions.Director of HLA LaboratoryDr Dajuan Dickinson, PhD Pharmacy Creatinine Clearance (Chem N/A [facility] Oat IgE Ab [Units/volume] in SerumOrdered By: Tiarra Childs on 10-29-2022 Oat IgE Qn (S) 0.32 kU/L Class I [facility] [place] IgE Ab [Units/volume] in SerumOrdered By: Tiarra Childs on 10-29-2022 [place] IgE Qn (S) <0.10 kU/L Class 0 [facility] Peanut IgE Ab [Units/volume] in SerumOrdered By: Tiarra Childs on 10-29-2022 Peanut IgE Qn (S) <0.10 kU/L Class 0 [facility] Pecan or Prentiss Tree IgE Ab [Units/volume] in SerumOrdered By: Tiarra Childs on 10-29-2022 Pecan or [place]rentiss Tree IgE Qn (S) <0.10 kU/L Class 0 [facility] Phosphate [Mass/volume] in S ulises or PlasmaOrdered By: Tiarra Childs on 10-29-2022 Phosphate [Mass/Vol] 4.2 mg/dL 2.5-4.6 [facility] Pork IgE Ab [Units/volume] i n SerumOrdered By: Tiarra Childs on 10-29-2022 Pork IgE Qn (S) <0.10 kU/L Class 0 [facility] Prolactin [Mass/volume] in S ulises or PlasmaOrdered By: Tiarra Childs on 10-29-2022 Prolactin [Mass/Vol] 6.27 ng/mL 3.34-26.72 [facility] Rice IgE Ab [Units/volume] i n SerumOrdered By: Tiarra Childs on 10-29-2022 Rice IgE Qn (S) <0.10 kU/L Class 0 [facility] [place] IgE Ab [Units/volume] in SerumOrdered By: Tiarra Childs on 10-29-2022 [place] IgE Qn (S) 0.31 kU/L Class 0/I [facility] Saltwort IgE Ab [Units/volum e] in SerumOrdered By: Tiarra Childs on 10-29-2022 Saltwort IgE Qn (S) <0.10 kU/L Class 0 [facility] Serum Indonesian sycamore IgE antibody assay (units/volume)Ordered By: Tiarra Childs on 10-29-2022 [place] IgE Qn (S) 0.11 kU/L Class 0/I [facility] Serum Penicillium chrysogenu m specific IgE antibody assayOrdered By: Tiarra Childs on 10-29-2022 P. notatum IgE Qn (S) <0.10 kU/L Class 0 [facility] Serum androstenedione measur ement by LC-MS/MS (mass/volume)Ordered By: Tiarra Childs on 10-29-2022 Androstenedione [Mass/Vol] 135 ng/dL 41-262 [facility] Comment on above: This test was develo ped and its performance characteristicsdetermined by [employer]. It has not been cleared orapproved by the Food and Drug Administration.Performed at: [address] [id number] Director: Jayne Mann MD, Phone: [phone] Serum cat dander IgG antibod y assay (units/volume)Ordered By: Tiarra Childs on 10-29-2022 Cat dander IgG Qn (S) <0.10 kU/L Class 0 [facility] Serum chicken droppings IgE antibody assay (units/volume)Ordered By: Tiarra Childs on 10-29-2022 Chicken droppings IgE Qn (S) <0.10 kU/L Class 0 [facility] Serum or plasma 17-hydroxypr ogesterone measurement (mass/volume)Ordered By: Tiarra Childs on 10-29-2022 17-Hydroxyprogesterone [Mass/Vol] 28 ng/dL . [facility] Comment on above: Adult Female Follicu lar 15 - 70 Luteal 35 - 290This test was developed and its performance characteristicsdetermined by [employer]. It has not been cleared orapproved by the Food and Drug Administration.Performed at: [address] [id number] Director: Jayne Mann MD, Phone: [phone] Serum or plasma anion gap de terminationOrdered By: Tiarra Childs on 10-29-2022 Anion gap [Moles/Vol] 9.2 mmol/L 6.0-15.0 [facility] Serum or plasma calcium michael urement (mass/volume)Ordered By: Tiarra Childs on 10-29-2022 Calcium [Mass/Vol] 9.4 mg/dL 8.2-10.2 [facility] Serum or plasma chloride mandeep surement (moles/volume)Ordered By: Tiarra Childs on 10-29-2022 Chloride [Moles/Vol] 105 mmol/L 95-114 [facility] Serum or plasma follitropin measurement (units/volume)Ordered [...] on 10-29-2022 Glucose [Mass/Vol] 83 mg/dL 70-100 [facility] Comment on above: ADA recommended refe rence [...] IA [Rel units/Vol] <0.1 s/co ratio 0.0-0.9 [facility] Serum or plasma insulin michael urement (units/volume)Ordered By: Tiarra Childs on 10-29-2022 Insulin Qn 6.1 u[iU]/mL 2.6-24.9 [facility] Comment on above: Performed at: [address] [id number] Director: Alf Simpson PhD, Phone: [phone] Serum or plasma lutropin mandeep surement (units/volume)Ordered By: Tiarra Childs on 10-29-2022 Lutropin Qn 7.8 m[IU]/mL . [facility] Comment on above: Adult Female: Follic ular phase 2.4 - 12.6 Ovulation phase 14.0 - 95.6 Luteal phase 1.0 - 11.4 Postmenopausal 7.7 - 58.5Performed at: [facility] [id number] [place], [place] [id number] Director: Alf Simpson PhD, Phone: [phone] Serum or plasma potassium me asurement (moles/volume)Ordered By: Tiarra Childs on 10-29-2022 Potassium [Moles/Vol] 3.8 mmol/L 3.5-5.1 [facility] Serum or plasma sodium measu rement (moles/volume)Ordered By: Tiarra Childs on 10-29-2022 Sodium [Moles/Vol] 137 mmol/L 136-146 [facility] Serum or plasma total carbon dioxide measurement (moles/volume)Ordered By: Tiarra Childs on 10-29-2022 CO2 [Moles/Vol] 26.6 mmol/L 22.0-30.0 [facility] Serum or plasma urea nitroge n measurement (mass/volume)Ordered By: Tiarra Childs on 10-29-2022 Urea nitrogen [Mass/Vol] 8 mg/dL 9-23 [facility] Serum rough pigweed IgE anti body assay (units/volume)Ordered By: Tiarra Childs on 10-29-2022 Rough Pigweed IgE Qn (S) <0.10 kU/L Class 0 [facility] Serum short ragweed specific IgE antibody assayOrdered By: Tiarra Childs on 10-29-2022 Common Ragweed IgE Qn (S) <0.10 kU/L Class 0 [facility] Serum white elm IgG antibody assay (units/volume)Ordered By: Tiarra Childs on 10-29-2022 White Elm IgG Qn (S) <0.10 kU/L Class 0 [facility] Serum white potato specific IgE antibody assayOrdered By: Tiarra Childs on 10-29-2022 Potato IgE Qn (S) <0.10 kU/L Class 0 [facility] Sheep [place] IgE Ab [Units/v olume] in SerumOrdered By: Tiarra Childs on 10-29-2022 Sheep [place] IgE Qn (S) <0.10 kU/L Class 0 [facility] Silver Birch IgE Ab [Units/v olume] in SerumOrdered By: Tiarra Childs on 10-29-2022 [place] IgE Qn (S) 0.15 kU/L Class 0/I [facility] Soybean specific IgE antibod y assayOrdered By: Tiarra Childs on 10-29-2022 Soybean IgE Qn (S) <0.10 kU/L Class 0 [facility] [place] IgE Ab [Units/volume ] in SerumOrdered By: Tiarra Childs on 10-29-2022 [place] IgE Qn (S) <0.10 kU/L Class 0 [facility] Tomato IgE Ab [Units/volume] in SerumOrdered By: Tiarra Childs on 10-29-2022 Tomato IgE Qn (S) <0.10 kU/L Class 0 [facility] [place] IgE Ab [Units/volume] in SerumOrdered By: Tiarra Childs on 10-29-2022 [place] IgE Qn (S) 0.14 kU/L Class 0/I [facility] Wheat IgE Ab [Units/volume] in SerumOrdered By: Tiarra Childs on 10-29-2022 Wheat IgE Qn (S) <0.10 kU/L Class 0 [facility] [place] IgE Ab [Units/volu me] in SerumOrdered By: Tiarra Childs on 10-29-2022 [place] IgE Qn (S) <0.10 kU/L Class 0 [facility] [place] IgE Ab [Units/volu me] in SerumOrdered By: Tiarra Childs on 10-29-2022 [place] IgE Qn (S) 0.27 kU/L Class 0/I [facility] White mulberry IgE Ab [Units /volume] in SerumOrdered By: Tiarra Childs on 10-29-2022 White mulberry IgE Qn (S) <0.10 kU/L Class 0 [facility] Creatinine [Mass/volume] in UrineOrdered By: Tiarra Childs on 10-20-2022 Creatinine (U) [Mass/Vol] 96.6 mg/dL [facility] Comment on above: No reference range e stablished Urine microalbumin measureme nt with detection limit of 20 mg/L or less (mass/volume)Ordered By: Tiarra Childs on 10-20-2022 Albumin DL <= 20 mg/L (U) [Mass/Vol] 24.1 mg/dL 0.0-1.8 [facility] Urine microalbumin/creatinin e mass ratioOrdered By: Tiarra Childs on 10-20-2022 Albumin/Creatinine DL <= 20 mg/L (U) [Mass ratio] 249.0 mg/g 0.0-30.0 [facility] Comment on above: 30-300 mg/g indicate s an increased risk for diabetic nephropathy. Greater than 300 mg/g is consistent with clinical nephropathy. (Am. J. Kidney Disease 1995, 25:107) Albumin [Mass/volume] in Ser um or PlasmaOrdered By: Tiarra Childs on 10-09-2022 Albumin [Mass/Vol] 4.1 g/dL 3.2-5.5 [facility] Basophils Auto (Bld) [#/Vol] Ordered By: Tiarra Childs on 10-09-2022 Basophils (Bld) [#/Vol] 0.0 10*3/uL 0.0-0.2 [facility] Basophils/100 WBC Auto (Bld) Ordered By: Tiarra Childs on 10-09-2022 Basophils/100 WBC (Bld) 0.6 % . [facility] C reactive protein [Mass/vol ume] in Serum or PlasmaOrdered By: Tiarra Childs on 10-09-2022 CRP [Mass/Vol] < 0.5 mg/dL 0.0-1.[address] [facility] [address] biopsyOrdered By: Trish Childs on 10-09-2022 Transferrin [Mass/Vol] 262 mg/dL 180-380 [facility] Creatinine [Mass/volume] in UrineOrdered By: Tiarra Childs on 10-09-2022 Creatinine (U) [Mass/Vol] 123.2 mg/dL [facility] Comment on above: No reference range e stablished Creatinine and Glomerular fi ltration rate.predicted panel (S/P/Bld)Ordered By: Tiarra Childs on 10-09-2022 Creatinine [Mass/Vol] 0.67 mg/dL 0.44-1.03 [facility] Eosinophils Auto (Bld) [#/Vo l]Ordered By: Tiarra Childs on 10-09-2022 Eosinophils (Bld) [#/Vol] 0.1 10*3/uL 0.0-0.45 [facility] Eosinophils/100 WBC Auto (Bl d)Ordered By: Tiarra Childs on 10-09-2022 Eosinophils/100 WBC (Bld) 0.9 % . [facility] Erythrocyte distribution wid th Auto (RBC) [Ratio]Ordered By: Tiarra Childs on 10-09-2022 Erythrocyte distribution width (RBC) [Ratio] 13.1 % 11.9-15.3 [facility] Erythrocyte sedimentation ra te by Photometric methodOrdered By: Tiarra Childs on 10-09-2022 ESR Photometric method (Bld) [Velocity] 5 mm/hr 0-19 [facility] Estimated glomerular filtrat ion rate (GFR) non- AmericanOrdered By: Tiarra Childs on 10-09-2022 GFR/1.73 sq M.predicted among non-blacks MDRD (S/P/Bld) [Vol rate/Area] > 60 mL/Min [facility] Ferritin [Mass/volume] in Se rum or PlasmaOrdered By: Tiarra Childs on 10-09-2022 Ferritin [Mass/Vol] 12.7 ng/mL 11-306.8 [facility] Folate [Mass/volume] in Seru m or PlasmaOrdered By: Tiarra Childs on 10-09-2022 Folate [Mass/Vol] 8.1 ng/mL >5.9 [facility] Comment on above: Folate reference ran ge: >5.9 ng/mlThe WHO technical consultation on folate and vitamin [id number] has determined that folate concentrations lessthan 4 ng/ml are considered deficient. Globulin Calc (S) [Mass/Vol] Ordered By: Tiarra Childs on 10-09-2022 Globulin (S) [Mass/Vol] 2.3 g/dL [facility] Hematocrit Auto (Bld) [Volum e fraction]Ordered By: Tiarra Childs on 10-09-2022 Hematocrit (Bld) [Volume fraction] 41.6 % 34.0-46.4 [facility] Hemoglobin [Mass/volume] in BloodOrdered By: Tiarra Childs on 10-09-2022 Hemoglobin (Bld) [Mass/Vol] 13.8 g/dL 11.8-15.4 [facility] Iron [Mass/volume] in Serum or PlasmaOrdered By: Tiarra Childs on 10-09-2022 Iron [Mass/Vol] 69 ug/dL 40-150 [facility] Iron binding capacity [Mass/ volume] in Serum or PlasmaOrdered By: Tiarra Childs on 10-09-2022 Iron binding capacity [Mass/Vol] 367 ug/dL 255-450 [facility] Iron saturation [Mass Fracti on] in Serum or PlasmaOrdered By: Tiarra Childs on 10-09-2022 Iron saturation [Mass fraction] 18.8 % 20-50 [facility] Laboratory - Chemistry and C hemistry - challengeOrdered By: Tiarra Childs on 10-09-2022 Cobalamin (Vitamin B12) [Mass/Vol] 394 pg/mL 180-914 [facility] Lipase [Catalytic activity/Vol] 29.0 U/L 22-51 [facility] Leukocytes [#/volume] correc paulie for nucleated erythrocytes in Blood by Automated counOrdered By: Tiarra Childs on 10-09-2022 WBC corrected for nucl RBC Auto (Bld) [#/Vol] 6.3 10*3/uL 3.8-11.6 [facility] Lymphocytes Auto (Bld) [#/Vo l]Ordered By: Tiarra Childs on 10-09-2022 Lymphocytes (Bld) [#/Vol] 1.5 10*3/uL 1.00-4.8 [facility] Lymphocytes/100 WBC Auto (Bl d)Ordered By: Tiarra Childs on 10-09-2022 Lymphocytes/100 WBC (Bld) 24.1 % . [facility] MCH Auto (RBC) [Entitic mass ]Ordered By: Tiarra Childs on 10-09-2022 MCH (RBC) [Entitic mass] 29.8 pg 24.7-34.3 [facility] MCHC Auto (RBC) [Mass/Vol]Or dered By: Tiarra Childs on 10-09-2022 MCHC (RBC) [Mass/Vol] 33.3 g/dL 32.0-35.0 [facility] MCV Auto (RBC) [Entitic vol] Ordered By: Tiarra Childs on 10-09-2022 MCV (RBC) [Entitic vol] 89.7 fL 80-100 [facility] Monocytes Auto (Bld) [#/Vol] Ordered By: Tiarra Childs on 10-09-2022 Monocytes (Bld) [#/Vol] 0.3 10*3/uL 0.0-0.8 [facility] Monocytes/100 WBC Auto (Bld) Ordered By: Tiarra Childs on 10-09-2022 Monocytes/100 WBC (Bld) 5.2 % . [facility] Neutrophils Auto (Bld) [#/Vo l]Ordered By: Tiarra Childs on 10-09-2022 Neutrophils (Bld) [#/Vol] 4.3 10*3/uL 1.8-7.7 [facility] Neutrophils/100 WBC Auto (Bl d)Ordered By: Tiarra Childs on 10-09-2022 Neutrophils/100 WBC (Bld) 69.2 % . [facility] No Panel InformationOrdered By: Tiarra Childs on 10-09-2022 25-Hydroxy Vitamin D Total 31.2 ng/mL 30-100 [facility] Comment on above: VITAMIN D STATUS 25( [place])VITAMIN D RANGE (ng/mL) Deficient <20 Insufficient 20 to <30Sufficient 30 to 100Reference: Ambar MF,Manish NC, Donis MANDEL, et al. Evaluation,treatment, and prevention of vitamin D deficiency; an Endocrine Society clinical practice guideline. JCEM. 2010; 96(7):1911-30. Anti-Nuclear Antibody Comment 2 See comment . [facility] Comment on above: For more information about Hep-2 cell patterns useTactilize.Message Systems, the official website for the InternationalConsensus on Antinuclear Antibody (BRAVO) Patterns (ICAP). -----A positive BRAVO result may occur in healthy individuals (lowtiter) or be associated with a variety of diseases. Seeinterpretation chart which is not all inclusive:Pattern Antigen Detected Suggested Disease Association Homogeneous DNA(ds,ss), SLE - High titers Nucleosomes, Histones Drug-induced SLE Speckled Sm, HUMAN RESOURCES SPECIALIST, SCL-70, SLE,MCTD,PSS (diffuse form), SS-A/SS-B Sjogrens Nucleolar SCL-70, PM-1/SCL High titers Scleroderma, PM/DM Centromere Centromere PSS (limited form) w/Crest syndrome variable Nuclear Dot [id number] Primary Biliary Cirrhosis Nuclear GP210, Primary Biliary CirrhosisMembrane phil A,B,C Performed at: [email or web address] [address] [id number] Director: Alf Simpson PhD, Phone: [phone] C-Peptide 3.7 ng/mL 1.1-4.4 [facility] Comment on above: C-Peptide reference interval is for fasting patients.Performed at: [facility] [id number] Director: Alf Simpson PhD, Phone: [phone] Estimated GFR () > 60 mL/Min [facility] Comment on above: GFR estimated refere nce range: According to KDOQI guidelines, <60 ml/min/1.73m2 is sufficient to diagnose a patient with chronic kidney disease. Pharmacy Creatinine Clearance (Chem N/A [facility] Nucleated erythrocytes [Pres ence] in Blood by Automated countOrdered By: Tiarra Childs on 10-09-2022 Nucleated RBC Auto Ql (Bld) 0.1 /100{WBC} 0-0.5 [facility] Platelet mean volume Auto (B ld) [Entitic vol]Ordered By: Tiarra Childs on 10-09-2022 Platelet mean volume (Bld) [Entitic vol] 8.4 fL 6.3-10.7 [facility] Platelets Auto (Bld) [#/Vol] Ordered By: Tiarra Childs on 10-09-2022 Platelets (Bld) [#/Vol] 303 10*3/uL 150-450 [facility] Protein [Mass/volume] in Ser um or PlasmaOrdered By: Tiarra Childs on 10-09-2022 Protein [Mass/Vol] 6.4 g/dL 6.1-7.9 [facility] RBC Auto (Bld) [#/Vol]Ordere d By: Tiarra Childs on 10-09-2022 RBC (Bld) [#/Vol] 4.64 10*6/uL 3.60-5.00 [facility] Serum nuclear antibody titer Ordered By: Tiarra Childs on 10-09-2022 Nuclear Ab (S) [Titer] Positive . [facility] Comment on above: Negative <1:80 Borde rline 1:80 Positive >1:80 Serum or plasma alanine perry otransferase measurement without P-5'-P (enzymatic activiOrdered By: Tiarra Childs on 10-09-2022 ALT No additional P-5'-P [Catalytic activity/Vol] 12 U/L 10-60 [facility] Serum or plasma albumin/glob ulin mass ratioOrdered By: Tiarra Childs on 10-09-2022 Albumin/Globulin [Mass ratio] 1.8 {ratio} [facility] Serum or plasma alkaline blair sphatase measurement (enzymatic activity/volume)Ordered By: Tiarra Childs on 10-09-2022 ALP [Catalytic activity/Vol] 54 U/L 32-92 [facility] Serum or plasma amylase michael urement (enzymatic activity/volume)Ordered By: Tiarra Childs on 10-09-2022 Amylase [Catalytic activity/Vol] 63 U/L 28-100 [facility] Serum or plasma anion gap de terminationOrdered By: Tiarra Childs on 10-09-2022 Anion gap [Moles/Vol] 12.1 mmol/L 6.0-15.0 [facility] Serum or plasma aspartate am inotransferase measurement (enzymatic activity/volume)Ordered By: Tiarra Childs on 10-09-2022 AST [Catalytic activity/Vol] 20 U/L 10-42 [facility] Serum or plasma calcium michael urement (mass/volume)Ordered By: Tiarra Childs on 10-09-2022 Calcium [Mass/Vol] 9.6 mg/dL 8.2-10.2 [facility] Serum or plasma chloride mandeep surement (moles/volume)Ordered By: Tiarra Childs on 10-09-2022 Chloride [Moles/Vol] 102 mmol/L 95-114 [facility] Serum or plasma glucose michael urement (mass/volume)Ordered By: Tiarra Childs on 10-09-2022 Glucose [Mass/Vol] 66 mg/dL 70-100 [facility] Comment on above: ADA recommended refe rence rangeRandom Glucose Reference Range is dependent on time and content of last meal. Glucose of more than 200 mg/dL in a nonstressed, ambulatory subject supports the diagnosis of Diabetes Mellitus. Serum or plasma potassium me asurement (moles/volume)Ordered By: Tiarra Childs on 10-09-2022 Potassium [Moles/Vol] 3.9 mmol/L 3.5-5.1 [facility] Serum or plasma sodium measu rement (moles/volume)Ordered By: Tiarra Childs on 10-09-2022 Sodium [Moles/Vol] 138 mmol/L 136-146 [facility] Serum or plasma total biliru bin measurement (mass/volume)Ordered By: Tiarra Childs on 10-09-2022 Bilirubin [Mass/Vol] 1.1 mg/dL 0.3-1.2 [facility] Serum or plasma total carbon dioxide measurement (moles/volume)Ordered By: Tiarra Childs on 10-09-2022 CO2 [Moles/Vol] 27.8 mmol/L 22.0-30.0 [facility] Serum or plasma urea nitroge n measurement (mass/volume)Ordered By: Tiarra Childs on 10-09-2022 Urea nitrogen [Mass/Vol] 9 mg/dL 9-23 [facility] Serum speckled pattern antin uclear antibody (BRAVO) titerOrdered By: Tiarra Childs on 10-09-2022 Speckled nuclear Ab pattern (S) [Titer] 1:80 . [facility] Comment on above: ICAP nomenclature: A C-2,4,5,29 TSH DL <= 0.005 mIU/L QnOrde red By: Tiarra Childs on 10-09-2022 TSH Qn 0.90 m[IU]/L 0.45-5.33 [facility] Thyroxine (T4) free [Mass/vo lume] in Serum or PlasmaOrdered By: Tiarra Childs on 10-09-2022 Free T4 [Mass/Vol] 0.76 ng/dL 0.61-1.12 [facility] Triiodothyronine (T3) Free [ Mass/volume] in Serum or PlasmaOrdered By: Tiarra Childs on 10-09-2022 Free T3 [Mass/Vol] 3.99 pg/mL 2.50-3.90 [facility] Urine microalbumin measureme nt with detection limit of 20 mg/L or less (mass/volume)Ordered By: Tiarra Childs on 10-09-2022 Albumin DL <= 20 mg/L (U) [Mass/Vol] 4.5 mg/dL 0.0-1.8 [facility] Urine microalbumin/creatinin e mass ratioOrdered By: Tiarra Childs on 10-09-2022 Albumin/Creatinine DL <= 20 mg/L (U) [Mass ratio] 36.0 mg/g 0.0-30.0 [facility] Comment on above: 30-300 mg/g indicate s an increased risk for diabetic nephropathy. Greater than 300 mg/g is consistent with clinical nephropathy. (Am. J. Kidney Disease 1995, 25:107) WBC Auto (Bld) [#/Vol]Ordere d By: Tiarra Childs on 10-09-2022 WBC (Bld) [#/Vol] 6.3 10*3/uL 3.8-11.6 [facility] CBC AUTO DIFFon 09-28-2022 BASO # 0.0 103/ul Normal 0.0-0.1 [facility] Comment on above: Performed By: #### C BC #### [facility] [address] [address] [address] Angelica Smith Basophils/100 WBC (Bld) 0.5 % Normal 0.2-2.0 [facility] Comment on above: Performed By: #### C BC #### [facility] [address] [address] [address] Angelica Smith EO # 0.1 103/ul Normal 0.0-0.7 [facility] Comment on above: Performed By: #### C BC #### [facility] [address] [place] [address] Dr. Angelica Smith Eosinophils/100 WBC (Bld) 1.6 % Normal 0.9-7.0 [facility] Comment on above: Performed By: #### C BC #### [facility] [address] [place] [address] Dr. Angelica Smith Erythrocyte distribution width (RBC) [Ratio] 12.4 % Normal 11.0-15.0 [facility] Comment on above: Performed By: #### C BC #### [facility] [address] [place] [address] Dr. Angelica Smith Hematocrit (Bld) [Volume fraction] 36.4 % Normal 36.0-48.0 [facility] Comment on above: Performed By: #### C BC #### [facility] [address] [place] [address] Dr. Angelica Smith Hemoglobin (Bld) [Mass/Vol] 13.3 g/dL Normal 12.0-16.0 [facility] Comment on above: Performed By: #### C BC #### [facility] [address] [place] [address] Dr. Angelica Smith IG # 0.01 10e3/ul Normal 0.00-0.03 [facility] Comment on above: Performed By: #### C BC #### [facility] [address] [place] [address] Dr. Angelica Smith IG % 0.2 % Normal 0.0-0.5 [facility] Comment on above: Performed By: #### C BC #### [facility] [address] [place] [address] Dr. Angelica Smith LYMPH # 2.0 103/ul Normal 1.2-3.8 [facility] Comment on above: Performed By: #### C BC #### [facility] [address] [place] [address] Dr. Angelica Smith Lymphocytes/100 WBC (Bld) 32.6 % Normal 20.5-60.0 [facility] Comment on above: Performed By: #### C BC #### [facility] [address] [place] [address] Dr. Angelica Smith MANUAL DIFF REQ NO Normal [facility] Comment on above: Performed By: #### C BC #### [facility] [address] [place] [address] Dr. Angelica Smith MCH (RBC) [Entitic mass] 30.3 pg Normal 26.7-34.0 [facility] Comment on above: Performed By: #### C BC #### [facility] [address] [place] [address] Dr. Angelica Smith MCHC (RBC) [Mass/Vol] 36.5 g/dL Critically high 29.9-35.2 [facility] Comment on above: Performed By: #### C BC #### [facility] [address] [place] [address] Dr. Angelica Smith MCV (RBC) [Entitic vol] 82.9 fL Normal 81.0-99.0 [facility] Comment on above: Performed By: #### C BC #### [facility] [address] [place] [address] Dr. Angelica Smith MONO # 0.4 103/ul Normal 0.3-0.8 [facility] Comment on above: Performed By: #### C BC #### [facility] [address] [place] [address] Dr. Angelica Smith Monocytes/100 WBC (Bld) 6.0 % Normal 1.7-12.0 [facility] Comment on above: Performed By: #### C BC #### [facility] [address] [place] [address] Dr. Angelica Smith NEUT # 3.7 103/ul Normal 1.4-6.5 [facility] Comment on above: Performed By: #### C BC #### [facility] [address] [place] [address] Dr. Angelica Smith Neutrophils/100 WBC (Bld) 59.1 % Normal 43.0-75.0 [facility] Comment on above: Performed By: #### C BC #### [facility] [address] [place] [address] Dr. Angelica Smith Platelet mean volume (Bld) [Entitic vol] 9.5 fL Normal 9.5-13.5 [facility] Comment on above: Performed By: #### C BC #### [facility] [address] [place] [address] Dr. Angelica Smith PLT 313 103/ul Normal 150-450 [facility] Comment on above: Performed By: #### C BC #### [facility] [address] [place] [address] Dr. Angelica Smith RBC 4.39 106/ul Normal 4.20-5.40 [facility] Comment on above: Performed By: #### C BC #### [facility] [address] [place] [address] Dr. Angelica Smith WBC 6.2 103/ul Normal 4.0-11.0 [facility] Comment on above: Performed By: #### C BC #### [facility] [address] [place] [address] Dr. Angelica Smith ER URINE PROFILEon 3 Bilirubin Ql (U) Negative Normal NEGATIVE [facility] Comment on above: Performed By: #### TOREY OJEDARO #### [facility] [address] [place] [address] Dr. Angelica Smith Clarity (U) CLEAR Normal CLEAR [facility] Comment on above: Performed By: #### TOREY OJEDARO #### [facility] [address] [place] [address] Dr. Angelica Smith Color (U) LT. YELLOW Normal YELLOW [facility] Comment on above: Performed By: #### TOREY OJEDARO #### [facility] [address] [place] [address] Dr. Angelica Smith ERUPETERD A micrscopic examina tion will be performed if indicated. Normal [facility] Comment on above: Performed By: #### TOREY OJEDARO #### [facility] [address] [place] [address] Dr. Angelica Smith Glucose Ql (U) Negative Normal NEGATIVE [facility] Comment on above: Performed By: #### Gladis BUSBY UMICRO #### [facility] [address] [place] [address] Dr. Angelica Smith Hemoglobin Ql (U) MODERATE Abnormal NEGATIVE [facility] Comment on above: Performed By: #### Gladis BUSBY UMICRO #### [facility] [address] [place] [address] Dr. Angelica Smith Ketones Ql (U) Negative Normal NEGATIVE [facility] Comment on above: Performed By: #### Gladis BUSBY UMICRO #### [facility] [address] [place] [address] Dr. Angelica Smith LEUKOCYTES Negative Normal NEGATIVE [facility] Comment on above: Performed By: #### Gladis BUSBY UMICRO #### [facility] [address] [place] [address] Dr. Angelica Smith Nitrite Ql (U) Negative Normal NEGATIVE [facility] Comment on above: Performed By: #### Gladis BUSBY UMICRO #### [facility] [address] [place] [address] Dr. Angelica Smith pH (U) 7.0 [pH] Normal 5-9 [facility] Comment on above: Performed By: #### Gladis BUSBY UMICRO #### [facility] [address] [place] [address] Dr. Angelica Smith SPEC GRAVITY 1.010 Normal 1.005-<=1. 025 [facility] Comment on above: Performed By: #### Gladis BUSBY UMICRO #### [facility] [address] [place] [address] Dr. Angelica Smith UA PROTEIN Negative Normal NEGATIVE/ TRACE [facility] Comment on above: Performed By: #### Gladis BUSBY UMICRO #### [facility] [address] [place] [address] Dr. Angelica Smith UR MICRO IND INDICATED Normal [facility] Comment on above: Performed By: #### VESTA OJEDA #### [facility] [address] [address] [address] Angelica Smith Urobilinogen Qn (U) 0.2 {Sujey'U}/dL Normal 0.2 - 1. 0 [facility] Comment on above: Performed By: #### VESTA OJEDA #### [facility] [address] [address] [address] Angelica Smith PREG QUANT HCGon 09-28-2022 HCG QUANT 1 mIU/mL Normal [facility] Comment on above: Performed By: #### B MEGHAN PREGQNT ####[facility] [id number] [address]Dr. Angelica Smith HCG RANGE SEE BELOW Normal [facility] Comment on above: Result Comment: 5-50 0.2-1 WEEK 50-500 1-2 WEEKS 100-5,000 2-3 WEEKS 500-10,000 3-4 WEEKS 1,000-50,000 4-5 WEEKS 10,000-100,000 5-6 WEEKS 15,000-200,000 6-8 WEEKS 10,000-100,000 2-3 MONTHS Performed By: #### B MEGHAN PREGQNT ####[facility] [id number] [address]Dr. Angelica Smith PROF CHEM 8 (BAS METB)on Anion gap [Moles/Vol] 11.5 mmol/L Normal [facility] Comment on above: Performed By: #### B MEGHAN, PREGQNT #### [facility] [address] [place] [address] Dr. Angelica Smith Calcium [Mass/Vol] 9.0 mg/dL Normal 8.5-10.1 [facility] Comment on above: Performed By: #### B MEGHAN PREGQNT #### [facility] [address] [place] [address] Dr. Angelica Smith Chloride [Moles/Vol] 104 mmol/L Normal 98-107 [facility] Comment on above: Performed By: #### B MEGHAN, PREGQNT #### [facility] [address] [place], [place] [id number] Dr. Angelica Smith CO2 [Moles/Vol] 27.0 mmol/L Normal 21.0-32.0 [facility] Comment on above: Performed By: #### B MP, PREGQNT #### [facility] [address] [address] [address] Angelica Smith Creatinine [Mass/Vol] 0.71 mg/dL Normal 0.55-1.02 [facility] Comment on above: Performed By: #### B MP, PREGQNT #### [facility] [address] [address] [address] Angelica Smith EGFR-AF SCOTTISH >60 Normal >=60 [facility] Comment on above: Performed By: #### B MP, PREGQNT #### [facility] [address] [place] [address] Dr. Angelica Smith EGFR-NON AF SCOTTISH >60 Normal >=60 [facility] Comment on above: Performed By: #### B MEGHAN, PREGQNT #### [facility] [address] [place] [address] Dr. Angelica Smith Glucose [Mass/Vol] 92 mg/dL Normal 74-106 [facility] Comment on above: Performed By: #### B MP, PREGQNT #### [facility] [address] [address] [address] Angelica Smith Potassium [Moles/Vol] 3.5 mmol/L Normal 3.5-5.1 [facility] Comment on above: Performed By: #### B MP, PREGQNT #### [facility] [address] [place] [address] Dr. Angelica Smith Sodium [Moles/Vol] 139 mmol/L Normal 136-145 [facility] Comment on above: Performed By: #### B MP, PREGQNT #### [facility] [address] [address] [address] Angelica Smith Urea nitrogen [Mass/Vol] 8.0 mg/dL Normal 7.0-18.0 [facility] Comment on above: Performed By: #### B MP, PREGQNT #### [facility] [address] [place] [address] Dr. Angelica Smith Urea nitrogen/Creatinine [Mass ratio] 11.3 mg/mg Normal [facility] Comment on above: Performed By: #### B MP PREGQNT #### [facility] [address] [place] [address] Dr. Angelica Smith URINE MICROSCOPIC ONLYon BACTERIA NONE SEEN Normal NONE SEEN [facility] Comment on above: Performed By: #### Gladis BUSBY UMICRO #### [facility] [address] [place] [address] Dr. Angelica Smith Bacteria identified Cx Nom (U) NOT INDICATED Normal [facility] Comment on above: Performed By: #### Gladis BUSBY UMICRO #### [facility] [address] [place] [address] Dr. Angelica Smith CAST NONE SEEN Normal NONE SEEN [facility] Comment on above: Performed By: #### Gladis BUSBY UMICRO #### [facility] [address] [place] [address] Dr. Angelica Smith Crystals LM Nom (Urine sed) NONE SEEN Normal NONE SEEN [facility] Comment on above: Performed By: #### Gladis BUSBY UMICRO #### [facility] [address] [place] [address] Dr. Angelica Smith Epithelial cells LM Ql (Urine sed) FEW Abnormal NONE SEEN /RARE [facility] Comment on above: Performed By: #### Gladis BUSYB UMICRO #### [facility] [address] [place] [address] Dr. Angelica Smith MUCOUS NONE SEEN Normal NONE SEEN [facility] Comment on above: Performed By: #### Gladis BUSBY UMICRO #### [facility] [address] [place] [address] Dr. Angelica Smith RBC 0-2 Normal 0-2 [facility] Comment on above: Performed By: #### Gladis BUSBY UMICRO #### [facility] [address] [place] [address] Dr. Angelica Smith WBC NONE SEEN Normal NONE SEEN [facility] Comment on above: Performed By: #### E VESTA BUSBY #### [facility] [address] [address] [address] Angelica Smith PREG QUANT HCGon 09-24-2022 HCG QUANT 7 mIU/mL Normal [facility] Comment on above: Performed By: #### P REGQNT #### [facility] [address] [place] [address] Dr. Angelica Smith HCG RANGE SEE BELOW Normal [facility] Comment on above: Result Comment: 5-50 0.2-1 WEEK 50-500 1-2 WEEKS 100-5,000 2-3 WEEKS 500-10,000 3-4 WEEKS 1,000-50,000 4-5 WEEKS 10,000-100,000 5-6 WEEKS 15,000-200,000 6-8 WEEKS 10,000-100,000 2-3 MONTHS Performed By: #### P REGQNT #### [facility] [address] [place] [address] Dr. Angelica Smith PREG QUANT HCGon 09-22-2022 HCG QUANT 14 mIU/mL Normal [facility] Comment on above: Performed By: #### P REGQNT #### [facility] [address] [place] [address] Dr. Angelica Smith HCG RANGE SEE BELOW Normal [facility] Comment on above: Result Comment: 5-50 0.2-1 WEEK 50-500 1-2 WEEKS 100-5,000 2-3 WEEKS 500-10,000 3-4 WEEKS 1,000-50,000 4-5 WEEKS 10,000-100,000 5-6 WEEKS 15,000-200,000 6-8 WEEKS 10,000-100,000 2-3 MONTHS Performed By: #### P REGQNT #### [facility] [address] [place] [address] Dr. Angelica Smith Albumin [Mass/volume] in Ser um or PlasmaOrdered By: Donavon Yanes on 08-11-2022 Albumin [Mass/Vol] 4.0 g/dL 3.2-5.5 [facility] Bilirubin Test strip Ql (U)O rdered By: Donavon Yanes on 08-11-2022 Bilirubin Ql (U) Negative Negative [facility] Color Auto (U)Ordered By: Kunal stevenvalerie Joaquín on 08-11-2022 Color (U) Yellow Yellow [facility] Creatinine and Glomerular fi ltration rate.predicted panel (S/P/Bld)Ordered By: Donavon Yanes on 08-11-2022 Creatinine [Mass/Vol] 0.71 mg/dL 0.44-1.03 [facility] Direct bilirubin measurement Ordered By: Donavon Yanes on 08-11-2022 Bilirubin.direct [Mass/Vol] 0.2 mg/dL 0.0-0.4 [facility] Estimated glomerular filtrat ion rate (GFR) non- AmericanOrdered By: Donavon Yanes on 08-11-2022 GFR/1.73 sq M.predicted among non-blacks MDRD (S/P/Bld) [Vol rate/Area] > 60 mL/Min [facility] Globulin Calc (S) [Mass/Vol] Ordered By: Donavon Yanes on 08-11-2022 Globulin (S) [Mass/Vol] 2.9 g/dL [facility] Ketones Auto test strip (U) [Mass/Vol]Ordered By: Donavon Yanes on 08-11-2022 Ketones (U) [Mass/Vol] Negative Negative [facility] Nitrite Test strip Ql (U)Ord ered By: Donavon Yanes on 08-11-2022 Nitrite Ql (U) Negative Negative [facility] No Panel InformationOrdered By: Donavon Yanes on 08-11-2022 Estimated GFR () > 60 mL/Min [facility] Comment on above: GFR estimated refere nce range: According to KDOQI guidelines, <60 ml/min/1.73m2 is sufficient to diagnose a patient with chronic kidney disease. Pharmacy Creatinine Clearance (Chem N/A [facility] Protein Auto test strip (U) [Mass/Vol]Ordered By: Donavon Yanes on 08-11-2022 Protein (U) [Mass/Vol] Negative Negative [facility] Protein [Mass/volume] in Ser um or PlasmaOrdered By: Donavon Yanes on 08-11-2022 Protein [Mass/Vol] 6.9 g/dL 6.1-7.9 [facility] Serum or plasma alanine perry otransferase measurement without P-5'-P (enzymatic activiOrdered By: Donavon Yanes on 08-11-2022 ALT No additional P-5'-P [Catalytic activity/Vol] 12 U/L 10-60 [facility] Serum or plasma albumin/glob ulin mass ratioOrdered By: Donavon Yanes on 08-11-2022 Albumin/Globulin [Mass ratio] 1.4 {ratio} [facility] Serum or plasma alkaline blair sphatase measurement (enzymatic activity/volume)Ordered By: Donavon Yanes on 08-11-2022 ALP [Catalytic activity/Vol] 47 U/L 32-92 [facility] Serum or plasma anion gap de terminationOrdered By: Donavon Yanes on 08-11-2022 Anion gap [Moles/Vol] 8.3 mmol/L 6.0-15.0 [facility] Serum or plasma aspartate am inotransferase measurement (enzymatic activity/volume)Ordered By: Donavon Yanes on 08-11-2022 AST [Catalytic activity/Vol] 19 U/L 10-42 [facility] Serum or plasma calcium michael urement (mass/volume)Ordered By: Donavon Yanes on 08-11-2022 Calcium [Mass/Vol] 9.4 mg/dL 8.2-10.2 [facility] Serum or plasma chloride mandeep surement (moles/volume)Ordered By: Donavon Yanes on 08-11-2022 Chloride [Moles/Vol] 104 mmol/L 95-114 [facility] Serum or plasma glucose michael urement (mass/volume)Ordered By: Donavon Yanes on 08-11-2022 Glucose [Mass/Vol] 81 mg/dL 70-100 [facility] Comment on above: ADA recommended refe rence rangeRandom Glucose Reference Range is dependent on time and content of last meal. Glucose of more than 200 mg/dL in a nonstressed, ambulatory subject supports the diagnosis of Diabetes Mellitus. Serum or plasma non-glucuron idated bilirubin measurement (mass/volume)Ordered By: Donavon Yanes on 08-11-2022 Bilirubin.indirect [Mass/Vol] 2.0 mg/dL [facility] Serum or plasma potassium me asurement (moles/volume)Ordered By: Donavon Yanes on 08-11-2022 Potassium [Moles/Vol] 3.9 mmol/L 3.5-5.1 [facility] Serum or plasma sodium measu rement (moles/volume)Ordered By: Donavon Yanes on 08-11-2022 Sodium [Moles/Vol] 135 mmol/L 136-146 [facility] Serum or plasma total biliru bin measurement (mass/volume)Ordered By: Donavon Yanes on 08-11-2022 Bilirubin [Mass/Vol] 2.2 mg/dL 0.3-1.2 [facility] Comment on above: Samples from patient [...] 08-11-2022 Urea nitrogen [Mass/Vol] 10 mg/dL 9-23 [facility] Specific gravity Auto test s trip (U) [Rel density]Ordered By: Donavon Yanes on 08-11-2022 Specific gravity (U) [Rel density] 1.007 1.001-1.03 0 [facility] Urine clarity by refractomet ry automatedOrdered By: Donavon Yanes on 08-11-2022 Clarity Refractometry automated (U) Clear Clear [facility] Urine glucose measurement by automated test strip (mass/volume)Ordered By: Donavon Yanes on 08-11-2022 Glucose Auto test strip (U) [Mass/Vol] Normal mg/dL Normal [facility] Urine hemoglobin detection b y automated test stripOrdered By: Donavon Yanes on 08-11-2022 Hemoglobin Auto test strip Ql (U) Negative Negative [facility] Urine leukocyte esterase det ection by automated test stripOrdered By: Donavon Yanes on 08-11-2022 Leukocyte esterase Auto test strip Ql (U) Negative Negative [facility] Urobilinogen Auto test strip (U) [Mass/Vol]Ordered By: Donavon Yanes on 08-11-2022 Urobilinogen (U) [Mass/Vol] Normal mg/dL Normal [facility] pH Auto test strip (U)Ordere d By: Donavon Yanes on 08-11-2022 pH (U) 6.0 [pH] 5.0-9.0 [facility] Albumin [Mass/volume] in Ser um or PlasmaOrdered By: Donavon Yanes on 06-18-2022 Albumin [Mass/Vol] 4.2 g/dL 3.2-5.5 [facility] Basophils Auto (Bld) [#/Vol] Ordered By: Donavon Yanes on 06-18-2022 Basophils (Bld) [#/Vol] 0.0 10*3/uL 0.0-0.2 [facility] Basophils/100 WBC Auto (Bld) Ordered By: Donavon Yanes on 06-18-2022 Basophils/100 WBC (Bld) 0.5 % . [facility] Blood hemoglobin measurement (mass/volume)Ordered By: Donavon Yanes on 06-18-2022 Hemoglobin (Bld) [Mass/Vol] 13.3 g/dL 11.8-15.4 [facility] Blood leukocytes automated c ount (number/volume)Ordered By: Donavon Yanes on 06-18-2022 WBC (Bld) [#/Vol] 6.9 10*3/uL 4.5-11.0 [facility] Cholesterol [Mass/volume] in Serum or PlasmaOrdered By: Donavon Yanes on 06-18-2022 Cholesterol [Mass/Vol] 143 mg/dL 140-200 [facility] Comment on above: Chol less than 200 m g/dl low riskChol 201-239 mg/dl borderline riskChol 240 mg/dl and greater high risk Cholesterol in LDL Calc [Mas s/Vol]Ordered By: Donavon Yanes on 06-18-2022 Cholesterol in LDL [Mass/Vol] 83 mg/dL 0-100 [facility] Comment on above: LDL ATP III CLASSIFI CATIONLDL less than 100 mg/dL OptimalLDL 100-129 mg/dL Near or above optimalLDL 130-159 mg/dL Borderline highLDL 160-189 mg/dL HighLDL greater than 189 mg/dL Very high Cholesterol in VLDL Calc [Ma ss/Vol]Ordered By: Donavon Yanes on 06-18-2022 Cholesterol in VLDL [Mass/Vol] 14 mg/dL [facility] Creatinine [Mass/volume] in UrineOrdered By: Donavon Yanes on 06-18-2022 Creatinine (U) [Mass/Vol] 113.4 mg/dL [facility] Comment on above: No reference range e stablished Creatinine and Glomerular fi ltration rate.predicted panel (S/P/Bld)Ordered By: Donavon Yanes on 06-18-2022 Creatinine [Mass/Vol] 0.70 mg/dL 0.44-1.03 [facility] Eosinophils Auto (Bld) [#/Vo l]Ordered By: Donavon Yanes on 06-18-2022 Eosinophils (Bld) [#/Vol] 0.1 10*3/uL 0.0-0.45 [facility] Eosinophils/100 WBC Auto (Bl d)Ordered By: Donavon Yanes on 06-18-2022 Eosinophils/100 WBC (Bld) 0.9 % . [facility] Erythrocyte distribution wid th Auto (RBC) [Ratio]Ordered By: Donavon Yanes on 06-18-2022 Erythrocyte distribution width (RBC) [Ratio] 12.4 % 11.9-15.3 [facility] Estimated glomerular filtrat ion rate (GFR) non- AmericanOrdered By: Donavon Yanes on 06-18-2022 GFR/1.73 sq M.predicted among non-blacks MDRD (S/P/Bld) [Vol rate/Area] > 60 mL/Min [facility] Globulin Calc (S) [Mass/Vol] Ordered By: Donavon Yanes on 06-18-2022 Globulin (S) [Mass/Vol] 2.5 g/dL [facility] Glucose mean value [Mass/vol ume] in Blood Estimated from glycated hemoglobinOrdered By: Donavon Yanes on 06-18-2022 Average glucose Estimated from glycated hemoglobin (Bld) [Mass/Vol] 100 mg/dL [facility] Hematocrit Auto (Bld) [Volum e fraction]Ordered By: Donavon Yanes on 06-18-2022 Hematocrit (Bld) [Volume fraction] 39.3 % 34.0-46.4 [facility] Hemoglobin A1c percentageOrd ered By: Donavon Yanes on 06-18-2022 HbA1c (Bld) [Mass fraction] 5.1 % 4.3-5.6 [facility] Comment on above: Increased risk for d iabetes: 5.7 - 6.4diabetes: >6.4glycemic control for adults with diabetes: <7.0 Laboratory - Hematology and Cell countsOrdered By: Donavon Yanes on 06-18-2022 Nucleated RBC/100 WBC (Bld) [Ratio] 0.1 % 0-0.5 [facility] Lymphocytes Auto (Bld) [#/Vo l]Ordered By: Donavon Yanes on 06-18-2022 Lymphocytes (Bld) [#/Vol] 1.9 10*3/uL 1.00-4.8 [facility] Lymphocytes/100 WBC Auto (Bl d)Ordered By: Donavon Yanes on 06-18-2022 Lymphocytes/100 WBC (Bld) 27.9 % . [facility] MCH Auto (RBC) [Entitic mass ]Ordered By: Donavon Yanes on 06-18-2022 MCH (RBC) [Entitic mass] 30.5 pg 24.7-34.3 [facility] MCHC Auto (RBC) [Mass/Vol]Or dered By: Donavon Yanes on 06-18-2022 MCHC (RBC) [Mass/Vol] 33.7 g/dL 32.0-35.0 [facility] MCV Auto (RBC) [Entitic vol] Ordered By: Donavon Yanes on 06-18-2022 MCV (RBC) [Entitic vol] 90.2 fL 80-100 [facility] Monocytes Auto (Bld) [#/Vol] Ordered By: Donavon Yanes on 06-18-2022 Monocytes (Bld) [#/Vol] 0.3 10*3/uL 0.0-0.8 [facility] Monocytes/100 WBC Auto (Bld) Ordered By: Donavon Yanes on 06-18-2022 Monocytes/100 WBC (Bld) 4.9 % . [facility] Neutrophils Auto (Bld) [#/Vo l]Ordered By: Donavon Yanes on 06-18-2022 Neutrophils (Bld) [#/Vol] 4.6 10*3/uL 1.8-7.7 [facility] Neutrophils/100 WBC Auto (Bl d)Ordered By: Donavon Yanes on 06-18-2022 Neutrophils/100 WBC (Bld) 65.8 % . [facility] No Panel InformationOrdered By: Donavon Yanes on 06-18-2022 Estimated GFR () > 60 mL/Min [facility] Comment on above: GFR estimated refere nce range: According to KDOQI guidelines, <60 ml/min/1.73m2 is sufficient to diagnose a patient with chronic kidney disease. Pharmacy Creatinine Clearance (Chem N/A [facility] Platelet mean volume Auto (B ld) [Entitic vol]Ordered By: Donavon Yanes on 06-18-2022 Platelet mean volume (Bld) [Entitic vol] 8.8 fL 6.3-10.7 [facility] Platelets Auto (Bld) [#/Vol] Ordered By: Donavon Yanes on 06-18-2022 Platelets (Bld) [#/Vol] 307 10*3/uL 150-450 [facility] Protein [Mass/volume] in Ser um or PlasmaOrdered By: Donavon Yanes on 06-18-2022 Protein [Mass/Vol] 6.7 g/dL 6.1-7.9 [facility] RBC Auto (Bld) [#/Vol]Ordere d By: Donavon Yanes on 06-18-2022 RBC (Bld) [#/Vol] 4.36 10*6/uL 3.60-5.00 [facility] Serum or plasma alanine perry otransferase measurement without P-5'-P (enzymatic activiOrdered By: Donavon Yanes on 06-18-2022 ALT No additional P-5'-P [Catalytic activity/Vol] 14 U/L 10-60 [facility] Serum or plasma albumin/glob ulin mass ratioOrdered By: Donavon Yanes on 06-18-2022 Albumin/Globulin [Mass ratio] 1.7 {ratio} [facility] Serum or plasma alkaline blair sphatase measurement (enzymatic activity/volume)Ordered By: Donavon Yanes on 06-18-2022 ALP [Catalytic activity/Vol] 49 U/L 32-92 [facility] Serum or plasma anion gap de terminationOrdered By: Donavon Yanes on 06-18-2022 Anion gap [Moles/Vol] 10.0 mmol/L 6.0-15.0 [facility] Serum or plasma aspartate am inotransferase measurement (enzymatic activity/volume)Ordered By: Donavon Yanes on 06-18-2022 AST [Catalytic activity/Vol] 19 U/L 10-42 [facility] Serum or plasma calcium michael urement (mass/volume)Ordered By: Donavon Yanes on 06-18-2022 Calcium [Mass/Vol] 9.4 mg/dL 8.2-10.2 [facility] Serum or plasma chloride mandeep surement (moles/volume)Ordered By: Donavon Yanes on 06-18-2022 Chloride [Moles/Vol] 103 mmol/L 95-114 [facility] Serum or plasma glucose michael urement (mass/volume)Ordered By: Donavon Yanes on 06-18-2022 Glucose [Mass/Vol] 86 mg/dL 70-100 [facility] Comment on above: ADA recommended refe rence rangeRandom Glucose Reference Range is dependent on time and content of last meal. Glucose of more than 200 mg/dL in a nonstressed, ambulatory subject supports the diagnosis of Diabetes Mellitus. Serum or plasma high density lipoprotein (HDL) cholesterol measurementOrdered By: Donavon Yanes on 06-18-2022 Cholesterol in HDL [Mass/Vol] 46 mg/dL 35-85 [facility] Comment on above: HDL CHOL ATP-III CLA SSIFICATION Cardiovascular RiskHDL > or equal to 60 mg/dL LOWHDL < 40 mg/dL HIGH Serum or plasma potassium me asurement (moles/volume)Ordered By: Donavon Yanes on 06-18-2022 Potassium [Moles/Vol] 3.7 mmol/L 3.5-5.1 [facility] Serum or plasma sodium measu rement (moles/volume)Ordered By: Donavon Yanes on 06-18-2022 Sodium [Moles/Vol] 136 mmol/L 136-146 [facility] Serum or plasma total biliru bin measurement (mass/volume)Ordered By: Donavon Yanes on 06-18-2022 Bilirubin [Mass/Vol] 1.9 mg/dL 0.3-1.2 [facility] Comment on above: Samples from patient [...] mass ratOrdered By: Donavon Yanes on 06-18-2022 Cholesterol.total/Adriana sterol in HDL [Mass ratio] 3.1 {ratio} <5.0 [facility] Serum or plasma urea nitroge n measurement (mass/volume)Ordered By: Donavon Yanes on 06-18-2022 Urea nitrogen [Mass/Vol] 5 mg/dL 06-12 [facility] TSH DL <= 0.005 mIU/L QnOrde red By: Donavon Yanes on 06-18-2022 TSH Qn 0.74 m[IU]/L 0.45-5.33 [facility] Thyroxine (T4) free [Mass/vo lume] in Serum or PlasmaOrdered By: Donavon Yanes on 06-18-2022 Free T4 [Mass/Vol] 0.86 ng/dL 0.61-1.12 [facility] Triglyceride [Mass/volume] i n Serum or PlasmaOrdered By: Donavon Yanes on 06-18-2022 Triglyceride [Mass/Vol] 70 mg/dL 35-149 [facility] Comment on above: TRIG ATP [...] 20 mg/L (U) [Mass/Vol] 67.2 mg/dL 0.0-1.8 [facility] Urine microalbumin/creatinin e mass ratioOrdered By: Donavon Yanes on 06-18-2022 Albumin/Creatinine DL <= 20 mg/L (U) [Mass ratio] 592.0 mg/g 0.0-30.0 [facility] Comment on above: 30-300 mg/g indicate s an increased risk for diabetic nephropathy. Greater than 300 mg/g is consistent with clinical nephropathy. (Am. J. Kidney Disease 1995, 25:107) PAP ACOG PANEL 2: 21 to 29on 03-19-2022 . . Normal [facility] Comment on above: Performed By: #### [id number] #### [facility] [address] [address] [address] Angelica Smith Age Gdln ACOG Testing - Normal [facility] Comment on above: Performed By: #### [id number] #### [facility] [address] [address] [address] Angelica Smith DIAGNOSIS: Comment [facility] Comment on above: Result Comment: NEGA TIVE FOR INTRAEPITHELIAL LESION OR MALIGNANCY. Performed By: #### [id number] #### [facility] [address] [address] [address] Angelica Smith Methodology: Comment [facility] Comment on above: Result Comment: This liquid based ThinPrep(R) pap test was screened with the use of an image guided system. Performed By: #### [id number] #### [facility] [address] [place] [address] Dr. Angelica Smith Note: Comment [facility] Comment on above: Result Comment: The Pap smear is a screening test designed to aid in the detection of premalignant and malignant conditions of the uterine cervix. It is not a diagnostic procedure and should not be used as the sole means of detecting cervical cancer. Both false-positive and false-negative reports do occur. . Performed By: #### [id number] #### [facility] [address] [place] [address] Dr. Angelica Smith Performed by: Comment [facility] Comment on above: Result Comment: Sherry Torres, Gis Software Developer (ASCP) Performed By: #### [id number] #### [facility] [address] [place] [address] Dr. Angelica Smith Reflex Criteria: Comment [facility] Comment on above: Result Comment: The HPV DNA reflex criteria were not met with this specimen result therefore, no HPV testing was performed. . Performed By: #### [id number] #### [facility] [address] [place] [address] Dr. Angelica Smith Specimen adequacy: Comment [facility] Comment on above: Result Comment: Sati sfactory for evaluation. Endocervical and/or squamous metaplastic cells (endocervical component) are present. Performed By: #### [id number] #### [facility] [address] [place] [address] Dr. Angelica Smith Vital Signs Date Time Vital Sign Value Performing Clinician Facility 07-04-2024 10: Body mass index (BMI) [Ratio] 21.71 kg/m2 Raeann CHOUDHURY Work Phone: [facility] 07-04-2024 10: Body weight 66.68 kg Raeann CHOUDHURY Work Phone: [facility] 07-04-2024 10:01-040 Diastolic blood pressure 60 mm[Hg] Raeann CHOUDHURY Work Phone: [facility] 07-04-2024 10:01-040 Systolic blood pressure 100 mm[Hg] Raeann CHOUDHURY Work Phone: [facility] 05-23-2024 12:00-0400 Body temperature 97.7 [degF] WARDROBE SUPERVISOR-C Raeann Warchol Work Phone: [facility] 05-23-2024 12:00-0400 Diastolic blood pressure 63 mm[Hg] WARDROBE SUPERVISOR-C Raeann Warchol Work Phone: [facility] 05-23-2024 12:00-0400 Heart rate 74 /min WARDROBE SUPERVISOR-C Raeann Warchol Work Phone: [facility] 05-23-2024 12:00-0400 Respiratory rate 16 /min WARDROBE SUPERVISOR-C Raeann Warchol Work Phone: [facility] 05-23-2024 12:00-0400 SaO2% (BldA) [Mass fraction] 98 % WARDROBE SUPERVISOR-C Raeann Warchol Work Phone: [facility] 05-23-2024 12:00-0400 Systolic blood pressure 95 mm[Hg] WARDROBE SUPERVISOR-C Raeann Warchol Work Phone: [facility] 05-23-2024 11:36-0400 Body height 175.26 cm WARDROBE SUPERVISOR-C Raeann Warchol Work Phone: [facility] 05-23-2024 11:36-0400 Body weight 62.14 kg WARDROBE SUPERVISOR-C Raeann Warchol Work Phone: [facility] 10-21-2023 09:48-0500 Body height 175.3 cm Raeann Warchol WARDROBE SUPERVISOR Work Phone: [facility] 10-21-2023 09:48-0500 Body mass index (BMI) [Ratio] 19.05 kg/m2 Raeann Warchol WARDROBE SUPERVISOR Work Phone: [facility] 10-21-2023 09:48-0500 Body temperature 98.2 [degF] Raeann Warchol WARDROBE SUPERVISOR Work Phone: [facility] 10-21-2023 09:48-0500 Body weight 58.51 kg Raeann Warchol WARDROBE SUPERVISOR Work Phone: [facility] 10-21-2023 09:48-0500 Diastolic blood pressure 60 mm[Hg] Raeann Jang WARDROBE SUPERVISOR Work Phone: [facility] 10-21-2023 09:48-0500 Heart rate 81 /min Raeann Florezchol WARDROBE SUPERVISOR Work Phone: [facility] 10-21-2023 09:48-0500 SaO2% (BldA) [Mass fraction] 100 % Raeann Florezchol WARDROBE SUPERVISOR Work Phone: [facility] 10-21-2023 09:48-0500 Systolic blood pressure 112 mm[Hg] Raeann Jang WARDROBE SUPERVISOR Work Phone: [facility] 04-10-2022 10:10-0400 Body height 172.72 cm Kirstin Hernandez Other [facility] Other 04-10-2022 10:10-0400 Body mass index (BMI) [Ratio] 20.37 kg/m2 Kirstin Hernandez Other [facility] Other 04-10-2022 10:10-0400 Body temperature 98.1 [degF] Kirstin Hernandez Other [facility] Other 04-10-2022 10:10-0400 Body weight 60.78 kg Kirstin Hernandez Other [facility] Other 04-10-2022 10:10-0400 Diastolic blood pressure 62 mm[Hg] Kirstin Hernandez Other [facility] Other 04-10-2022 10:10-0400 Respiratory rate 16 /min Kirstin Hernandez Other [facility] Other 04-10-2022 10:10-0400 SaO2% (BldA) [Mass fraction] 98 % Kirstin Hernandez Other [facility] Other 04-10-2022 10:10-0400 Systolic blood pressure 104 mm[Hg] Kirstin Hernandez Other [facility] Other 01-02-2022 11:10-0400 Body height 172.72 cm Kirstin Hernandez Other [facility] Other 01-02-2022 11:10-0400 Body mass index (BMI) [Ratio] 21.59 kg/m2 Kirstin Hernandez Other [facility] Other 01-02-2022 11:10-0400 Body temperature 98 [degF] Kirstin Hernandez Other [facility] Other 01-02-2022 11:10-0400 Body weight 64.41 kg Kirstin Hernandez Other [facility] Other 01-02-2022 11:10-0400 Diastolic blood pressure 68 mm[Hg] Kirstin Hernandez Other [facility] Other 01-02-2022 11:10-0400 Respiratory rate 16 /min Kirstin Hernandez Other [facility] Other 01-02-2022 11:10-0400 SaO2% (BldA) [Mass fraction] 99 % Kirstin Hernandez Other [facility] Other 01-02-2022 11:10-0400 Systolic blood pressure 104 mm[Hg] Kirstin Hernandez Other [facility] Other 09-03-2021 11:10-0500 Body height 172.72 cm Kirstin Hernandez Other [facility] Other 09-03-2021 11:10-0500 Body mass index (BMI) [Ratio] 21.89 kg/m2 Kirstin Hernandez Other [facility] Other 09-03-2021 11:10-0500 Body temperature 97.3 [degF] Kirstin Hernandez Other [facility] Other 09-03-2021 11:10-0500 Body weight 65.32 kg Kirstin Hernandze Other [facility] Other 09-03-2021 11:10-0500 Diastolic blood pressure 60 mm[Hg] Kirstin David Other [facility] Other 09-03-2021 11:10-0500 SaO2% (BldA) [Mass fraction] 95 % Kirstin David Other [facility] Other 09-03-2021 11:10-0500 Systolic blood pressure 104 mm[Hg] Kirstin Hernandez Other [facility] Other 07-07-2021 14:00-0400 Body height 172.72 cm Kirstin David Other [facility] Other 07-07-2021 14:00-0400 Body mass index (BMI) [Ratio] 22.04 kg/m2 Kirstin David Other [facility] Other 07-07-2021 14:00-0400 Body temperature 98.1 [degF] Kirstin David Other [facility] Other 07-07-2021 14:00-0400 Body weight 65.77 kg Kirstin iDegofredy Other [facility] Other 07-07-2021 14:00-0400 Diastolic blood pressure 70 mm[Hg] Kirstin Hernandez Other [facility] Other 07-07-2021 14:00-0400 Respiratory rate 18 /min Kirstin Hernandez Other [facility] Other 07-07-2021 14:00-0400 SaO2% (BldA) [Mass fraction] 99 % Kirstin Hernandez Other [facility] Other 07-07-2021 14:00-0400 Systolic blood pressure 110 mm[Hg] Kirstin Hernandez Other [facility] Other Encounters Encounter Date Encounter Type Care Provider Facility Start: 07-04-2024 End: 07-04-2024 Bamboo flowsheet Raeann CHOUDHURY Work Phone: [facility] Start: 07-04-2024 End: 07-04-2024 Bamboo flowsheet Raeann CHOUDHURY Work Phone: [facility] Start: 07-04-2024 End: 07-04-2024 ambulatory RAEANN MEYER Not Available Start: 07-04-2024 End: 07-04-2024 flow sheet Raeann CHOUDHURY Work Phone: [facility] Comment on above: 30 weeks gestation o f ; Third trimester ; Screening for diabetes mellitus (DM); Gastroesophageal reflux in ; Nausea Start: 06-19-2024 End: 06-19-2024 ambulatory JHONATHAN PEDRAZA Not Available Start: 05-26-2024 End: 05-26-2024 ambulatory ROHAN CHAUHAN Not Available Start: 05-23-2024 End: 05-23-2024 Patient encounter procedure WARDROBE SUPERVISOR-C Raeann Jang Work Phone: [facility] Start: 05-23-2024 End: 05-23-2024 ambulatory WARDROBE SUPERVISOR-C Raeann Jang Work Phone: [facility] Work Phone: Start: 05-22-2024 End: 05-22-2024 ambulatory Raeann Jang Facility:[facility] Start: 04-14-2024 End: 04-14-2024 ambulatory Clarisa MIKE Facility:[facility] Start: 03-30-2024 End: 03-30-2024 ambulatory GINNY CUELLO Not Available Start: 03-30-2024 End: 03-30-2024 Patient encounter procedure WARDROBE SUPERVISOR-C Raeann Laine Work Phone: [facility] [place] Work Phone: Start: 03-30-2024 End: 03-30-2024 ambulatory WARDROBE SUPERVISOR-C Raeann Biranrohith Work Phone: [facility] Work Phone: Start: 03-27-2024 End: 03-27-2024 ambulatory JHONATHAN TALIA Not Available Start: 02-28-2024 End: 02-28-2024 ambulatory JHONATHAN TALIA Not Available Start: 02-04-2024 End: 02-04-2024 ambulatory RAEANN FLOREZCHOL Not Available Start: 12-21-2023 End: 12-21-2023 ambulatory ESME Allie MADELYN Not Available Start: 12-15-2023 ambulatory [facility] Work Phone: Start: 12-15-2023 Non-patient / [facility] Work Phone: Start: 10-21-2023 End: 10-21-2023 ambulatory RAEANN JANG Not Available Start: 10-21-2023 End: 10-21-2023 Office outpatient visit 15 minutes Raeann Jang WARDROBE SUPERVISOR Work Phone: [facility] Comment on above: Attention-deficit hy peractivity disorder, other type (CMS/HCC) (Primary Dx); Bilateral impacted cerumen Start: 09-02-2023 End: 09-02-2023 ambulatory Tyler Armstrong Facility:[facility] Start: 08-31-2023 End: 08-31-2023 ambulatory RAEANN LAINE Not Available Start: 08-19-2023 End: 08-19-2023 Patient encounter procedure Services [facility] Work Phone: [facility] Start: 08-19-2023 End: 08-19-2023 ambulatory [facility] Work Phone: [facility] Work Phone: Start: 08-18-2023 End: 08-18-2023 ambulatory RAEANN JANG Not Available Start: 08-10-2023 End: 08-10-2023 Patient encounter procedure Services [facility] Work Phone: [facility] [place] Work Phone: Start: 08-10-2023 End: 08-10-2023 ambulatory Services [facility] Work Phone: [facility] Work Phone: Start: 08-01-2023 End: 08-01-2023 ambulatory GINNY SARMIENTOKAREL Not Available Start: 07-20-2023 End: 07-20-2023 Patient encounter procedure Services [facility] Work Phone: [facility] [place] Work Phone: Start: 07-20-2023 End: 07-20-2023 ambulatory Services [facility] Work Phone: [facility] Work Phone: Start: 05-27-2023 End: 05-27-2023 ambulatory Services [facility] Work Phone: [facility] Work Phone: Start: 05-27-2023 End: 05-27-2023 Patient encounter procedure Services [facility] Work Phone: [facility] [place] Work Phone: Start: 01-12-2023 End: 01-12-2023 ambulatory [facility] Work Phone: [facility] Work Phone: Start: 01-12-2023 End: 01-12-2023 Departed Referred Services [facility] Work Phone: [facility] Start: 12-09-2022 End: 12-09-2022 ambulatory DO Kirstin Hernandez Work Phone: [facility] Work Phone: Start: 12-09-2022 End: 12-09-2022 Departed Referred DO Kirstin Hernandez Work Phone: [facility] [place] Start: 12-04-2022 End: 12-04-[address] JHONATHAN PEDRAZA . Facility:[facility] Start: 11-26-2022 Encounter for other preprocedural examination DR JHONATHAN PEDRAZA . [facility] Start: 11-26-2022 End: 11-26-2022 ambulatory DO Kirstin Hernandez Work Phone: [facility] Work Phone: Start: 11-26-2022 End: 11-26-2022 Patient encounter procedure DO Kirstin Hernandez Work Phone: [facility] [place] Work Phone: Start: 11-24-2022 End: 11-25-2022 ambulatory PRIMITIVO CHAU Facility:[facility] Start: 11-24-2022 End: 11-25-2022 Encounter for other preprocedural examination PRIMITIVO CHAU Facility:[facility] Start: 10-29-2022 End: 10-29-2022 ambulatory DO Kirstin Hernandez Work Phone: [facility] Work Phone: Start: 10-29-2022 End: 10-29-2022 Patient encounter procedure DO Kirstin Cortezfredy Work Phone: [facility] [place] Work Phone: Start: 10-20-2022 End: 10-20-2022 ambulatory DO Kirstin Hernandez Work Phone: [facility] Work Phone: Start: 10-20-2022 End: 10-20-2022 Departed Referred DO Kirstin Hernandez Work Phone: [facility] Start: 10-09-2022 End: 10-09-2022 Departed Referred DO Kirstin Hernandez Work Phone: [facility] [place] Start: 10-02-[address] JHONATHAN PEDRAZA . Facili ty:[facility] Start: 09-29-[address] JHONATHAN PEDRAZA . Facili ty:[facility] Start: 09-28-2022 End: 09-28-2022 ambulatory HUMPHREY HOLLAND Facility:[facility] Start: 09-23-[address] JHONATHAN PEDRAZA . Facili ty:[facility] Start: 09-22-2022 End: 10-20-[address] JHONATHAN PEDRZAA . Facility:[facility] Start: 08-11-2022 End: 08-11-2022 ambulatory DO Kirstin Hernandez Work Phone: [facility] Work Phone: Start: 08-11-2022 End: 08-11-2022 Patient encounter procedure DO Kirstin Hernandez Work Phone: [facility] [place] Start: 08-04-2022 End: 08-04-2022 ambulatory Kirstin Hernandez Other [facility] Other Start: 08-04-2022 Telephone encounter Kirstin Hernandez [facility] Start: 06-25-[address] JHONATHAN PEDRAZA . Facili ty:[facility] Start: 06-18-2022 End: 06-18-2022 ambulatory DO Kirstin Hernandez Work Phone: [facility] Work Phone: Start: 06-18-2022 End: 06-18-2022 Patient encounter procedure DO Kirstin Hernandez Work Phone: [facility] [place] Start: 06-12-[address] JHONATHAN PEDRAZA . Facili ty:[facility] Start: 06-08-[address] JHONATHAN PEDRAZA . Facili ty:[facility] Start: 04-14-2022 End: 04-14-2022 ambulatory Kirstin Hernandez Other [facility] Other Start: 04-14-2022 Telephone encounter Kirstin Hernandez [facility] Start: 04-10-2022 End: 04-10-2022 ambulatory Kirstin Hernandez Other [facility] Other Start: 04-10-2022 Office outpatient vi sit 15 minutes Kirstin Hernandez [facility] Start: 03-24-[address] KIRSTIN HERNANDEZ Facilit y:[facility] Start: 03-16-2022 End: 03-16-[address] JHONATHAN PEDRAZA . Facility:[facility] Start: 03-10-2022 End: 03-10-2022 ambulatory Kirstin Hernandez Other [facility] Other Start: 03-10-2022 Telephone encounter Kirstin Hernandez [facility] Start: 01-02-2022 End: 01-02-2022 ambulatory Kirstin Hernandez Other [facility] Other Start: 01-02-2022 Office outpatient vi sit 25 minutes Kirstin Hernandez [facility] Start: 01-02-2022 Telephone encounter Kirstin Hernandez [facility] [place] Start: 12-08-2021 End: 12-08-2021 ambulatory Kirstin Hernandez Other [facility] Other Start: 12-08-2021 Telephone encounter Kirstin Hernandez [facility] Start: 12-02-2021 End: 12-02-2021 ambulatory Kirstin Hernandez Other [facility] Other Start: 12-02-2021 Telephone encounter Kirstin Hernandez [facility] Start: 09-03-2021 End: 09-03-2021 ambulatory Kirstin Hernandez Other [facility] Other Start: 09-03-2021 Office outpatient vi sit 15 minutes Kirstin Hernandez [facility] Start: 07-07-2021 Office outpatient vi sit 15 minutes Kirstin Hernandez [facility] Procedures Date Procedure Procedure Detail Performing Clinician Start: 07-04-2024 Urnls dip stick/tabl et rgnt non-auto w/o micrscp Raeann CHOUDHURY Work Phone: Start: 03-30-2024 Respiratory Panel (PCR) WARDROBE SUPERVISOR-C Raeann Jang Work Phone: Start: 08-10-2023 Respiratory Panel (PCR) Services [facility] Work Phone: Start: 12-09-2022 Respiratory Panel (PCR) DO Kirstin Hernandez Work Phone: Start: 11-26-2022 Computed tomography of abdomen and pelvis with contrast DO Kirstin Heranndez Work Phone: Start: 10-29-2022 Ultrasonography of b ilateral kidneys DO Kirstin Hernandez Work Phone: Start: 10-29-2022 US scan of gallbladder DO Kirstin Hernandez Work Phone: Plan of Treatment Date Care Activity Detail Author Start: 07-18-2024 End: 07-18-2024 Patient encounter procedure 07/18/2024 8:50 AM EDT Routine [facility] [address] [address] Raeann Meyer PA [address] [place] [address] [facility] Start: 05-23-2024 [facility] Start: 05-23-2024 Hospital admission [facility] Start: 05-21-2024 Influenza vaccination Influenza Vacc ine (#1) [facility] Start: 12-15-2023 Patient referral [facility] Work Phone: Start: 01-12-2023 Bacteria identified in Urine by Culture Urine Culture [facility] 17-Hydroxyprogestero ne [Mass/volume] in Serum or Plasma [facility] Alternaria alternata IgE Ab [Units/volume] in Serum [facility] Indonesian house dust mite IgE Ab [Units/volume] in Serum [facility] Indonesian Seagrove Ig E Ab [Units/volume] in Serum [facility] Androstenedione [Mass/volume] in Serum or Plasma [facility] Aspergillus fumigatu s IgE Ab [Units/volume] in Serum [facility] Shaffer's yeast IgE Ab [Units/volume] in Serum [facility] Banana IgE Ab [Units/volume] in Serum [facility] Barley IgE Ab [Units/volume] in Serum [facility] Beef IgE Ab [Units/volume] in Serum [facility] Bermuda grass IgE Ab [Units/volume] in Serum [facility] Boxelder IgE Ab [Units/volume] in Serum [facility] Cat dander IgG Ab [Units/volume] in Serum [facility] Cheese cheddar type IgE Ab [Units/volume] in Serum [facility] Chicken meat IgE Ab [Units/volume] in Serum [facility] Cladosporium herbaru m IgE Ab [Units/volume] in Serum [facility] Cockroach IgE Ab [Units/volume] in Serum [facility] Common Ragweed IgE A b [Units/volume] in Serum [facility] Wellington IgE Ab [Units/volume] in Serum [facility] Wahkiacus IgE Ab [Units/volume] in Serum [facility] Cow milk IgE Ab [Units/volume] in Serum [facility] Dog dander IgE Ab [Units/volume] in Serum [facility] Egg white IgE Ab [Units/volume] in Serum [facility] Estradiol (E2) [Mass/volume] in Serum or Plasma [facility] house dust mite IgE Ab [Units/volume] in Serum [facility] Gluten IgE Ab [Units/volume] in Serum [facility] Hemoglobin A1c/Hemoglobin.total in Blood Hemoglobin A1c Lab Routine Screening for diabetes mellitus (DM) Ordered: 07/04/2024 [facility] Work Phone: Comment on above: Ordered: 07/04/2024 HLA DQ antigen typing [facility] IgE [Units/volume] i n Serum or Plasma [facility] Insulin [Units/volum e] in Serum or Plasma [facility] Insulin [Units/volum e] in Serum or Plasma [facility] Lutropin [Units/volu me] in Serum or Plasma [facility] Mountain Juniper IgE Ab [Units/volume] in Serum [facility] Mouse urine proteins IgE Ab [Units/volume] in Serum [facility] Oat IgE Ab [Units/vo lume] in Serum [facility] Hawthorne IgE Ab [Units/volume] in Serum [facility] Patient Education Antepartum Dis charge Instructions ([facility]) [facility] Work Phone: Patient referral [facility] Work Phone: Peanut IgE Ab [Units/volume] in Serum [facility] Pecan or [place] Domo e IgE Ab [Units/volume] in Serum [facility] Penicillium notatum IgE Ab [Units/volume] in Serum [facility] Pork IgE Ab [Units/volume] in Serum [facility] Potato IgE Ab [Units/volume] in Serum [facility] Progesterone [Mass/volume] in Serum or Plasma [facility] Rice IgE Ab [Units/volume] in Serum [facility] Rough Pigweed IgE Ab [Units/volume] in Serum [facility] [place] IgE Ab [Units/vo lume] in Serum [facility] Saltwort IgE Ab [Units/volume] in Serum [facility] Sheep [place] IgE Ab [Units/volume] in Serum [facility] Silver Birch IgE Ab [Units/volume] in Serum [facility] Soybean IgE Ab [Units/volume] in Serum [facility] Testosterone Free [Mass/volume] in Serum or Plasma [facility] Testosterone Free [Mass/volume] in Serum or Plasma [facility] Donavon IgE Ab [Units/volume] in Serum [facility] Tomato IgE Ab [Units/volume] in Serum [facility] [place] IgE Ab [Units/volume] in Serum [facility] Wheat IgE Ab [Units/volume] in Serum [facility] White Marquez IgE Ab [Units/volume] in Serum [facility] White [place]m IgG Ab [Units/volume] in Serum [facility] White mulberry IgE A b [Units/volume] in Serum [facility] [place] IgE Ab [Units/volume] in Serum [facility] Immunizations Immunization Date Immunization Notes Care Provider Shahnaz duarte 07-20-2023 Influenza, injectable, Madin Melida Canine Kidney, preservative free, quadrivalent Raeann Warchol WARDROBE SUPERVISOR Work Phone: [facility] 07-20-2023 influenza virus vaccine, unspecified formulation Raeann Meyer PA Work Phone: [facility] 07-10-2022 influenza, injectable, quadrivalent, preservative free Raeann Warchol WARDROBE SUPERVISOR Work Phone: [facility] 07-07-2022 tetanus toxoid, reduced diphtheria toxoid, and acellular pertussis vaccine, adsorbed Raeann Warchol WARDROBE SUPERVISOR Work Phone: [facility] 01-13-2022 varicella virus vaccine Raeann Warchol WARDROBE SUPERVISOR Work Phone: [facility] 12-23-2021 tuberculin skin test; purified protein derivative solution, intradermal Raeann Warchol WARDROBE SUPERVISOR Work Phone: [facility] 08-18-2021 COVID-19 Vaccine Pfizer - Documentation Purposes Only Kirstin Hernandez Other [facility] 07-28-2021 COVID-19 Vaccine Pfizer - Documentation Purposes Only Kirstin Hernadnez Other [facility] 06-11-2021 diphtheria, tetanus toxoids and pertussis vaccine Kirstin Hernandez Other [facility] 06-11-2021 measles, mumps and rubella virus vaccine Kirstin Hernandez Other [facility] Other 07-17-2019 influenza, seasonal, injectable Patient Objection Kirstin Hernandez Other [facility] Other 11-09-2014 Rocephin 500 mg Kirstin Hernandez Other [facility] Other 06-09-2012 hepatitis A vaccine, pediatric/adolescent dosage, 2 dose schedule Kirstin Hernandez Other [facility] Other 06-09-2012 human papilloma virus vaccine, quadrivalent Kirstin Hernandez Other [facility] Other 06-09-2012 meningococcal polysaccharide (groups A, C, Y and W-135) diphtheria toxoid conjugate vaccine (MCV4P) Kirstin Diegofredy Other [facility] Other 06-09-2012 tetanus toxoid, reduced diphtheria toxoid, and acellular pertussis vaccine, adsorbed Kirstin Cortezfredy Other [facility] Other 04-01-2004 diphtheria, tetanus toxoids and acellular pertussis vaccine, unspecified formulation Kirstin David Other [facility] 04-01-2004 measles, mumps and rubella virus vaccine Kirstin Diegofredy Other [facility] Other 04-01-2004 poliovirus vaccine, inactivated Kirstin David Other [facility] Other 04-01-2004 poliovirus vaccine, unspecified formulation [facility] 08-20-2000 diphtheria, tetanus toxoids and acellular pertussis vaccine, unspecified formulation Kirstin David Other [facility] Other 08-20-2000 haemophilus influenzae type b vaccine, conjugate unspecified formulation Kirstin David Other [facility] Other 08-20-2000 measles, mumps and rubella virus vaccine Kirstin Hernandez Other [facility] Other 08-20-2000 poliovirus vaccine, inactivated Kirstin Hernandez Other [facility] Other 08-20-2000 poliovirus vaccine, unspecified formulation [facility] 08-20-2000 varicella virus vaccine Kirstin Hernandez Other [facility] Other 01-23-2000 diphtheria, tetanus toxoids and acellular pertussis vaccine, unspecified formulation Kirstin Hernandez Other [facility] Other 01-23-2000 haemophilus influenzae type b conjugate and Hepatitis B vaccine Kirstin David Other [facility] Other 1999 diphtheria, tetanus toxoids and acellular pertussis vaccine, unspecified formulation Kirstin David Other [facility] Other 1999 haemophilus influenzae type b conjugate and Hepatitis B vaccine Kirstin Diegofredy Other [facility] Other 1999 poliovirus vaccine, inactivated Kirstin Hernandez Other [facility] Other 1999 poliovirus vaccine, unspecified formulation [facility] 1999 diphtheria, tetanus toxoids and acellular pertussis vaccine, unspecified formulation Kirstin Hernandez Other [facility] Other 1999 haemophilus influenzae type b conjugate and Hepatitis B vaccine Kirstin Hernandez Other [facility] Other 1999 poliovirus vaccine, inactivated Kirstin Hernandez Other [facility] Other 1999 poliovirus vaccine, unspecified formulation [facility] NEGATED: Highlighted row has not occurred! 1 influenza, seasonal, injectable Patient Objection Kirstin Hernandez Other [facility] Other NEGATED: Highlighted row has not occurred! 9 influenza, seasonal, injectable Patient Objection Kirstin Hernandez Other [facility] Other Payers Date Payer Category Payer Medicaid [facility] MEDICAID [employer] MEDICAID [place] [id number] 2023-Present [address] [place] [address] [id number] 2023 Private Health Insurance [facility] MEDICAID [id number] 2021 [id number]. [id number] 2021 Unknown BCBS BCBS [id number] [address] [place] [address] [id number]. [id number] 1999 Unknown [id number] .16.840.1.183210.3.579.2. 593 1999 Unknown [id number] 2.16.840.1.425804.3.579.2. 593 1999 Unknown [id number] 2.16.840.1.035499.3.579.2. 593 1999 Unknown [id number] 2.16.840.1.945352.3.579.2. 593 1999 Unknown [id number] 2.16.840.1.382532.3.579.2. 593 1999 Unknown [id number] 2.16.840.1.443145.3.579.2. 593 1999 Unknown [id number] 2.16.840.1.348074.3.579.2. 593 1999 Unknown [id number] 2.16.840.1.821510.3.579.2. 593 1999 Unknown [id number] 2.16.840.1.078197.3.579.2. 593 1999 Unknown [id number] 2.16.840.1.857282.3.579.2. 593 1999 Unknown [id number] 2.16.840.1.805833.3.579.2. 593 1999 Unknown [id number] 2.16.840.1.126392.3.579.2. 593 1999 Unknown [id number] 2.16.840.1.067553.3.579.2. 718 1999 Unknown [id number] 2.16.840.1.825685.3.579.2. 718 1999 Unknown [id number] 2.16.840.1.464312.3.579.2. 1259 1999 Unknown [id number] 2.16.840.1.979681.3.579.2. 1259 1999 Unknown [id number] 2.16.840.1.515760.3.579.2. 1259 1999 Unknown [id number] 2.16.840.1.247532.3.579.2. 1258 1999 Unknown [id number] 2.16.840.1.300912.3.579.2. 1258 1999 Unknown [id number] 2.16.840.1.906564.3.579.2. 1258 1999 Unknown [id number] 2.16.840.1.541043.3.579.2. 1258 1999 Unknown [id number] 2.16.840.1.171246.3.579.2. 1258 1999 Unknown [id number] 2.16.840.1.563974.3.579.2. 1258 1999 Unknown [id number] 2.16.840.1.497194.3.579.2. 1258 1999 Unknown [id number] 2.16.840.1.463705.3.579.2. 1258 1999 Unknown [id number] 2.16.840.1.606710.3.579.2. 1258 1999 Unknown [id number] 2.16.840.1.304467.3.579.2. 1258 1999 Unknown [id number] 2.16.840.1.769920.3.579.2. 1258 1999 Unknown [id number] 2.16.840.1.943778.3.579.2. 1258 1959 [facility] [id number] 2.16.840.1.268568.19 1959 Private Health Insurance [id number] 2.16.840.1.700461. 1959 Private Health Insurance [id number] 1959 Self-pay [id number] Unknown [id number] 2.16.840.1.399013.3.579.2. 531 Unknown [id number] 2.0.1.319002.3.579.2. 531 Unknown [id number] 2.0.1.204651.3.579.2. 531 Unknown [id number] 2.840.1.953126.3.579.2. 531 Unknown [id number] 2.0.1.530640.3.579.2. 531 Social History Date Type Detail Facility Unknown if ever smoked [facility] Other Start: 10-21-2023 End: 03-30-2024 Sex Assigned At [facility] Other Start: 2000 Sex Assigned At Female F [facility] Start: 10-21-2023 [facility] Start: 10-21-2023 Tobacco use and exposure Smokeless tobacco non-user [facility] Start: 10-21-2023 End: 07-04-2024 Alcohol intake Lifetime non-drinker (finding) [facility] Start: 10-21-2023 End: 03-30-2024 History of Social function [facility] Start: 07-20-2023 Tobacco Comment Pt vapes [facility] Start: 08-29-2023 Alcohol Comment caffeine intak e: 2-3 cups per day of soda/pop ; more than 4 cups per day [facility] Start: 2000 Sex Assigned At Not on file [facility] Start: 11-10-2017 [facility]finding[facility] Do you belong to any clubs or organizations such as zoroastrianism groups, unions, fraternal or athletic groups, or school groups? No [facility] How often do you att end meetings of the clubs or organizations you belong to? Patient declined [facility] Are you now , , , , never or living with a partner? Never [facility] How often to you hav e a drink containing alcohol? Never [facility] Do you feel stress - tense, restless, nervous, or anxious, or unable to sleep at night because your mind is troubled all the time - these days [OSQ] Very much [facility] Start: 12-21-2023 [facility] NEGATED: Highlighted rowStart: ARUNF History of tobacco use Passive smoker [facility] Clinical Notes 12-02-2011 to 07-04-2024 KEI Hurd - 07/04/2024 9:20 AM Molina Jang NP - 10/21/2023 9:40 AM ESTPatient Instructions Note Date & Type Note Facility 07-04-2024 History of Present illness Narrative Reason for Appointment: Patient ID: Le Rocha is a 24 y.o. female who presents for Routine Visit Patient presents today for Return OB appointment. MEDICATIONS Current Outpatient Medications Medication Instructions Docusate Sodium (COLACE PO) Take by mouth omeprazole (PRILOSEC) 20 mg, Oral, Daily before breakfast, Do not crush or chew. 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/19/2023 Bipolar II disorder, most recent episode major depressive (CMS/HCC) 07/19/2023 Hypoglycemia 07/19/2023 Mild persistent asthma without complication (CMS/HCC) 07/19/2023 Mixed anxiety and depressive disorder 07/19/2023 Chronic fatigue 07/20/2023 Attention-deficit hyperactivity disorder, other type (CMS/HCC) 07/20/2023 Resolved Ambulatory Problems Diagnosis Date Noted Attention deficit hyperactivity disorder (CMS/HCC) 07/19/2023 Missed menses 07/20/2023 Unspecified mood (affective) disorder (CMS/HCC) 07/20/2023 Past Medical History: Diagnosis Date Acute low back pain ADHD (attention deficit hyperactivity disorder) (CMS/HCC) Anxiety with depression Asthma (CMS/HCC) Chondritis Family planning Hx of bipolar disorder PCOS (polycystic ovarian syndrome) Pelvic pain Post depression (CMS/HCC) Pre-op exam HISTORY PAST MEDICAL HISTORY SOCIAL HISTORY Past Medical History: Diagnosis Date Acute low back pain ADHD (attention deficit hyperactivity disorder) (CMS/HCC) Anxiety with depression Asthma (CMS/HCC) Chondritis Family planning Hx of bipolar disorder bipolar II PCOS (polycystic ovarian syndrome) Pelvic pain Post depression (CMS/HCC) Pre-op exam Social History Tobacco Use Smoking status: Every Day Passive exposure: Never Smokeless tobacco: Never Tobacco comments: Pt vapes Vaping Use Vaping status: Every Day Substances: Nicotine Devices: Disposable Substance Use Topics Alcohol use: Never Comment: caffeine intake: 2-3 cups per day of soda/pop ; more than 4 cups per day Drug use: Never FAMILY HISTORY Family History Problem Relation Name Age of Onset Mental illness Mother Mental illness Father Depression Father Drug abuse Father Depression Sister Arthritis Maternal Grandmother Stroke Paternal Grandmother Dot SURGICAL HISTORY Past Surgical History: Procedure Laterality Date INTRAUTERINE DEVICE INSERTION mirena placed LAPAROSCOPY DIAGNOSTIC / BIOPSY / ASPIRATION / LYSIS 08/2020 OTHER SURGICAL HISTORY 08/2022 exploratory surg OTHER SURGICAL HISTORY 12/04/2022 robotic dx lap VAGINAL DELIVERY 05/2021 REVIEW OF SYSTEMS Review of Systems: Review of Systems Constitutional: Negative. HENT: Negative. Eyes: Negative. Respiratory: Negative. Cardiovascular: Negative. Gastrointestinal: Negative. Genitourinary: Negative. Musculoskeletal: Negative. Skin: Negative. Neurological: Negative. All other systems reviewed and are negative. Hematological: Negative. Endocrine: Negative. Allergic/Immunologic: Negative. OBJECTIVE Objective: Physical Exam Constitutional: Appearance: Normal appearance. She is well-developed and normal weight. HENT: Head: Normocephalic. Cardiovascular: Rate and Rhythm: Normal rate and regular rhythm. Pulses: Normal pulses. Pulmonary: Effort: Pulmonary effort is normal. Breath sounds: Normal breath sounds. Abdominal: General: Bowel sounds are normal. There is no distension. Palpations: Abdomen is soft. Tenderness: There is no abdominal tenderness. There is no guarding or rebound. Musculoskeletal: General: No swelling. Normal range of motion. Right lower leg: No edema. Left lower leg: No edema. Neurological: General: No focal deficit present. Mental Status: She is alert and oriented to person, place, and time. Skin: General: Skin is warm and dry. Psychiatric: Mood and Affect: Mood normal. Behavior: Behavior normal. Thought Content: Thought content normal. Judgment: Judgment normal. Vitals and nursing note reviewed. Exam conducted with a lacemaker present. Vitals: Estimated body mass index is 21.71 kg/m as calculated from the following: Height as of 12/21/23: 5' 9 . Weight as of this encounter: 147 lb. BP: 100/60 Patient's last menstrual period was 12/07/2023. ASSESSMENT & PLAN ICD-10-CM 1. 30 weeks gestation of Z3A.30 POCT urinalysis dipstick manually resulted 2. Third trimester Z34.93 POCT urinalysis dipstick manually resulted 3. Screening for diabetes mellitus (DM) Z13.1 Hemoglobin A1c 4. Gastroesophageal reflux in O99.619 omeprazole (PriLOSEC) [address] capsule K21.9 Return OB: Patient presents today for a routine obstetrics appointment. Patient is currently 30w0d . Patient states she is doing well but has complaints of being tired due to current . Patient has verbalizes frequent movement. labor precautions was discussed/given and patient was instructed to perform kick counts three times a day. Patient was called in script for acid reflux and given A1C and CBC to have drawn. Orders Placed This Encounter Procedures Hemoglobin A1c POCT urinalysis dipstick manually resulted Follow Up: Patient is to return to office in 2 week for routine OB appointment. Documented by Christianne Long LPN on behalf of: KEI Hurd documented in this encounter [facility] 05-22-2024 Note Patient Education Ma terials Follows: [...] these instructions at home: Medicines ? Take njep-ksi-nisqtml and prescription medicines only as told by [...] to the area. Brushing your teeth ? [place] your teeth twice a day using a [...] when you eat or drink. ? Take bbtt-zab-tuzlwyy and prescription medicines only as told by your dentist. ? Watch your dental pain for any changes. Let your dentist know if symptoms get worse. This information is not intended to replace advice given to you by your health care provider. Make sure you discuss any questions you have with your health care provider. Document Revised: 06/11/2021 Document Reviewed: 06/11/2021 [employer] Patient Education ? 2023 iZ3D. Dentistry Dental Pain Dental pain is often [...] these instructions at home: Medicines ? Take ywqi-svy-ziuwxdp and prescription medicines only as told by your dentist. ? If you were prescribed an antibiotic medicine, take it as told by your dentist. Do not stop taking it even if you start to feel better. Eating and drinking Do not eat foods or drinks that cause you pain. These include: (more content not included)... [facility] 12-15-2023 Hospital Discharge instructions Ambulatory OrdersReferral to Orthopedics Time Frame: 12/15/23, Location: None [facility] Work Phone: 10-21-2023 History of Present illness Narrative SUBJECTIVE Le Francia is a 23 y.o. female who presents [...] follow-up: CIM . documented in this encounter [facility] 10-21-2023 Instructions Raeann Jang NP - 10/21/2023 9:40 AM EST PATIENT EDUCATION: ADHD Current drug therapy discussed during office visit. Call office for worsening of symptoms for follow-up visit. Per [facility] regulations, follow-ups have to occur at least every 3 months. Patient verbalized understanding of these rules in order for us to continue filling medications. OARRS/PDMP reviewed without concern. Medications should be safely filled and stored as this is a controlled substance. CERUMEN IMPACTION Bilateral ears lavaged with successful removal of ear wax. Recommended use of 2 strength hydrogen peroxide rinses three times weekly to manage cerumen accumulation. Over the counter Debrox per box instructions may also help with softening of wax build up. Follow-up as needed for repeat lavage. documented in this encounter [facility] 09-03-2023 Note [phone] [id number] [facility] 09-02-2023 Note Patient Education Ma terials Follows: [facility] 12-04-2022 Note OPERATIVE NOTE OPERATION DATE: 12/04/2022 PROCEDURE: Robotic assisted diagnostic laparoscopy. PREOPERATIVE DIAGNOSIS: Pelvic pain. POSTOPERATIVE DIAGNOSIS: Pelvic pain. ANESTHESIA: General. SURGEON: Jhonathan Pedraza D.O. FINANCIAL INSTITUTION TREASURER: STEPHON Weber URINE OUTPUT: Yellow and clear. [...] to Recovery Room in stable condition. [facility] 08-04-2022 Evaluation note Encounter Date Diagnosis Assessment Notes Jul, ADHD (attention deficit hyperactivity disorder) (ICD-10 - F90.9) Jul, Anxiety (ICD-10 - F41.9) [facility] 07-22-2022 Evaluation note* Encounter Date Diagnosis [...] done in May (2021) by Dr. Pedraza. [facility] 06-21-2022 Evaluation note* Encounter Date Diagnosis Assessment Notes Treatment Notes Treatment Clinical Notes Feb, Fatigue (ICD-10 - R53.83) Feb, Weakness (ICD-10 - R53.1) Feb, Chest pain (ICD-10 - R07.9) [facility] Other 04-15-2022 Evaluation note* Encounter Date Diagnosis [...] other issues that take precedence. Dec, Other terminal operations supervisor (current) drug therapy (ICD-10 - Z79.899) Dec, [...] the symptoms so they can be documented. [facility] 03-15-2022 Evaluation note* Encounter Date Diagnosis Assessment Notes Treatment Notes Treatment Clinical Notes Nov, ADHD (attention deficit hyperactivity disorder) (ICD-10 - F90.9) [facility] 12-15-2021 Evaluation note* Encounter Date Diagnosis [...] that her HGB has improved. Aug, Other terminal operations supervisor (current) drug therapy (ICD-10 - Z79.899) After she has been on the Adderall for a few weeks she should have lab drawn to be sure the medication is not affecting liver or kidneys, she can call for results. [facility] 10-18-2021 Evaluation note* Encounter Date Diagnosis [...] have EMDR done through her new counselor. [facility] 03-14-2012 History general Narrative - Reported* Type Description Date Medical History 12-02-2011 Echo - Structurally No rmal Heart Medical History 12-02-11 CXR - Negative Medical History 12-02-11 Echo- Structurally [facility] Medical History Pre & Post Spirometry Medical History ADD Medical History X-Ray Left Ankle 08-07-13; [facility] Medical History PCOS found on ultrasound Medical History bipolar -2 Surgical History No Surgical history information Hospitalization History [facility] - chest pain s 08/12/15 Hospitalization History [facility] panic attack 08/17/15 [facility] 03-14-2012 History general Narrative - Reported* Type Description Date Medical History 12-02-2011 Echo - Structurally No rmal Heart Medical History 12-02-11 CXR - Negative Medical History 12-02-11 Echo- Structurally [facility] Medical History Pre & Post Spirometry Medical History ADD Medical History X-Ray Left Ankle 08-07-13; [facility] Medical History PCOS found on ultrasound Medical History bipolar -2 Medical History 10/07/21 pt states sh e had seizures 3-4 years ago that were stress induced Surgical History No Surgical history information Hospitalization History [facility] - chest pain s 08/12/15 Hospitalization History [facility] panic [facility] 08/17/15 [facility] Other Evaluation noteNo InformationNort [facility] Other Evaluation noteNo assessment information available [facility] Work Phone: [facility] note* Diagnosis Attention-deficit hyperactivity disorder, other type (CMS/HCC)- Primary Bilateral impacted cerumen Impacted cerumen [facility] Diagnosis 30 weeks gestation of Third trimester state, incidental Screening for diabetes mellitus (DM) Screening for diabetes mellitus Gastroesophageal reflux in Nausea Nausea alone documented in this encounter [facility] for visit Narrativemed refill Adderall, discuss multiple issues, see treatment plan for further informationK[facility] & [facility] Other Advance Directives Advance Directive Response Recorded Date/ Time Advance [...] cramping dr helms Summary Purpose Family History Relationship Condition Age at Onset Recorded Date/T rojelio Not Specified No pertinent family history Unknown Relationship Condition Age at Onset Recorded Date/T rojelio Not Specified No pertinent family history Unknown father Addiction to drug Unknown Family history of mental disorder Unknown grandparent Unknown Additional Source Comments REASON FOR VISIT (unrecogniz ed section and content) Reason Comments Routine Visit Care Teams (unrecognized sec tion and content) Team Status: Active Member Role Status Dates UNA Ruiz Primary Care Provider Active Team Status: Inactive Member Role Status Dates UNA Ruiz Primary Care Provider Active Start: March 30, 2024 End: March 30, 2024 Ginny Cuello APRN NP-C Attending Provider Act michelle Start: March 30, 2024 End: March 30, 2024 Team Status: Active Member Role Status Dates UNA Ruiz Primary Care Provider Active Start: December 15, 2023 Kirstin Hernandez DO Attending Provider Active Star t: December 15, 2023 Team Status: Inactive Member Role Status Dates Kirstin Hernandez DO Primary Care Provider Active Donavon Yanes DO Attending Provider Active Team Status: Active Member Role Status Dates Kirstin Hernandez DO Primary Care Provider Active Team Status: Inactive Member Role Status Dates Services [facility] Primary Care Provider Active UNA Segura Attending Provide r Active Team Status: Inactive Member Role Status Dates Kirstin Hernandez DO Primary Care Provider Active UNA Segura Attending Provide r Active Team Status: Active Member Role Status Dates Services [facility] Primary Care Provider Active Team Status: Inactive Member Role Status Dates UNA Segura Attending Provide r Active Services [facility] Primary Care Provider Active Team Status: Inactive Member Role Status Dates UNA Segura Attending Provide r Active Team Status: Active Member Role Status Dates Services [facility] Primary Care Provider Ac tive Team Status: Inactive Member Role Status Dates Services [facility] [facility] Primary Care Provider Ac tive Tiarra Childs , JEAN CLAUDE-C Attending Provide r Active Team Status: Inactive Member Role Status Dates Services [facility] Primary Care Provider Ac tive Raeann Jang NP-C Attending Provider Active Team Status: Inactive Member Role Status Dates [facility] Primary Care Provider, Attending Pr ovider Active [employer] Relationship Specialty Start Date End Date Yovany Crawley MD [address] [place] [address] PCP - General Family Medicine 07/20/23 Raeann Jang NP [address] [place] [address] Nurse Practitioner Family Medicine 07/20/23 Team Status: Inactive Member Role Status Dates [facility] Ruiz Primary Care Provider Active Start: May 23, 2024 End: May 23, 2024 Andrzej Grace DO Attending Provider Active Sta rt: May 23, 2024 End: May 23, 2024 [employer] Relationship Specialty Start Date End Date Yovany Crawley MD [address] [place] [address] PCP - General Family Medicine 07/20/23 Raeann Jang NP [address] [place] [address] Nurse Practitioner Family Medicine 07/20/23 [employer] Relationship Specialty Start Date End Date Yovany Crawley MD [address] [place] [address] PCP - General Family Medicine 07/20/23 Raeann Jang NP [address] [place] [address] Nurse Practitioner Family Medicine 07/20/23 Goals (unrecognized section and content) Goals may be documented in a n alternate section INFORMATION SOURCE (unrecogn ized section and content) DATE CREATED AUTHOR 01/29/2023 [facility] DATE CREATED AUTHOR AUTHOR'S ORGANIZ ATION 04/15/2024 [facility] DATE CREATED AUTHOR AUTHOR'S ORGANIZ ATION 04/19/2024 [facility] DATE CREATED AUTHOR AUTHOR'S ORGANIZ ATION 2024 [facility] DATE CREATED AUTHOR AUTHOR'S ORGANIZ ATION 06/01/2024 [facility] DATE CREATED AUTHOR AUTHOR'S ORGANIZ ATION 07/06/2024 [facility] EPIC FOR RECORDS PERTAINING TO [...] BE BASED ON THE PRIMARY CLINICAL RECORDS. [employer] provides no warranty or guarantee of the accuracy or completeness of information in this document.
[2024-07-13 08:39] LABS: Basophils Percent Auto 0.3 % (0.2-2.0); Eosinophils Absolute Auto 0.2 10^3/uL (0.0-0.7); Eosinophils Percent Auto 1.2 % (0.9-7.0); Hematocrit 30.7 % (36.0-48.0); Hemoglobin 10.3 g/dL (12.0-16.0); Immature Granulocytes Abs Auto 0.21 10^3/uL (0.00-0.03); Immature Granulocytes Pct Auto 1.7 % (0.0-0.5); Lymphocytes Absolute Auto 2.4 10^3/uL (1.2-3.8); Lymphocytes Percent Auto 19.3 % (20.5-60.0); Mean Corpuscular HGB Conc 33.6 g/dL (29.9-35.2); Mean Corpuscular Hemoglobin 30.9 pg (26.7-34.0); Mean Corpuscular Volume 92.2 fL (81.0-99.0); Mean Platelet Volume 10.2 fL (9.5-13.5); Monocytes Absolute Auto 0.9 10^3/uL (0.3-0.8); Neutrophils Absolute Auto 8.7 10^3/uL (1.4-6.5); Neutrophils Percent Auto 70.5 % (43.0-75.0); Platelet Count 256 10^3/uL (150-450); Red Blood Count 3.33 10^6/uL (4.20-5.40); Red Cell Distribution Width 12.4 % (11.0-15.0); White Blood Count 12.3 10^3/uL (4.0-11.0)
[2024-07-13 10:13] LABS: Estimated Average Glucose 82 mg/dL; Glycohemoglobin A1C 4.5 % (4.5-6.2)
== END 2024-07-13 08:14 | disposition home or self-care (01) ==
LOC: LAB 08:16
PROVIDERS: Visit Provider Physician Assistant
DX: Z13.1 Encounter for screening for diabetes mellitus (principal)
CPT/HCPCS: 36415; 83036; 85025

== ENCOUNTER 2024-07-28 15:41 | Observation (INO) | payer BC, OTHER, SELFPAY ==
--- OUTSIDE RECORDS SUMMARY | 2024-07-28 15:53 | XMS_ITS | CCD ---
Author Organization [facility] Care Team Providers Care Supervisor [employer] Name Role Phone Kirstin Hernandez Unavailable David, DO [place] Primary Care Provider DO Donavon Yanes Attending Provider [phone] David, DO [place] Primary Care Provider DO Donavon Yanes Attending Provider David, DO [place] Primary Care Provider [phone] DO Donavon Yanes Attending Provider UNA Childs Attending Pr ovider [facility] Primary Care Provider DO Kirstin Hernandez Primary Care Provider DO Kirstin Hernandez Primary Care Provider UNA Childs Attending Pr ovider [facility] Primary Care Provider UNA Childs Attending Pr ovider [facility] Primary Care Provider TALIA .DR ZARATE [...] Unavailable TALIA ., DR ZARATE Attending Unavailable [facility] Care [facility] ider UNA Childs Attending Pr ovider UNA Ch Attending Provider [phone] [facility] ider UNA Childs Attending Pr ovider UNA Ch Attending Provider JEAN CLAUDE Ch-C Raeann Primary Care Provider Yovany Crawley MD Primary Care Provider [phone] [employer]ATE[employer]NERSH[employer] REPRESENTATIVE, Raeann Unavailable JEAN CLAUDE Ch-C Raeann Primary Care Provider HEIDI Cuello Attending Provider [phone] Clarisa MIKE Attending Unavailable DO Andrzej Grace Attending Provider Raeann Ch M Primary Care Unavailable UNA Templeton Attending Unavailable UNA [place] Admitting Unavailable Armstrong Tyler Roc Admitting Unavailable Armstrong, Tyler L Primary Care Unavailable Armstrong Tyler L Attending Unavailable Warchol, Raeann Attending Unavailable Warchol, Raeann Admitting Unavailable Warchol, Raeann Primary Care Unavailable Visci Andrzej Admitting Unavailable Visci, Andrzej Attending Unavailable Warchol, Raeann Primary Care Unavailable Warchol, Raeann Attending Unavailable Warchol, Raeann Admitting Unavailable Warchol, Raeann Primary Care Unavailable Warchol, Raeann Attending Unavailable Warchol, Raeann Admitting Unavailable [facility] U navailable Lause, Ginny Yip Admitting Unavailable Lause, Ginny Gruberee Attending Unavailable Warchol, Raeann Primary Care Unavailable WARCHOL, RAEANN Attending Unavailable WARCHOL, RAEANN Attending Unavailable ESME JOSHI Attending Unavailable JOSHIESME Referring Unavailable DIDION, GINNY L Attending Unavailable DIDIONGINNY L Referring Unavailable WARCHOL, RAEANN Referring Unavailable JHONATHAN PEDRAZA Attending Unavailable TALIAJHONATHAN Raygoza Attending Unavailable LAUSEGINNY R Attending Unavailable ROHAN CHAUHAN Attending Unavailable WARCHOL, RAEANN Attending Unavailable TALIAGHAZALA RaygozaY Attending Unavailable MARU, RAEANN Attending Unavailable MARU, RAEANN Attending Unavailable Allergies Allergy Classification Reported Allergen(s) Allergy Type Date of Onset Reaction(s) Facility (10 sources) Citalopram Drug Allergy headaches, upset [facility] Other (1 source) Citalopram Drug Allergy [address] [place] [address] Repository Medications Current Medications Medication Drug Class(es) Dates Sig (Normalized) Sig (Original) [id number] 200 actuat albuterol 0.09 mg/actuat metered dose [...] Active docusate sodium 100 mg oral capsule (13 sources) Start: 01-02-2022 take 1 capsule by [...] 2023 12:00am metoclopramide 10 mg oral tablet (6 sources) Dopamine-2 Receptor Antagonist Start: 07-04-2024 End: [...] omeprazole 20 mg delayed release oral capsule (8 sources) Proton Pump Inhibitor Start: 07-04-2024 End: [...] 09/15/2022 Active Vit w/Fe-Methylfol- FA (PNV PO) (7 sources) Vit w/F f-Evstmovbw-SB (PNV PO) Take by mouth Active Completed/Discontinued [...] stress, unspecified; Translations: [Stress] Chronic Anxiety disorders (20 sources) Anxiety disorder, unspecified; Translations: [Anxiety] Onset: 1 Resolved: 1 Chronic Asthma (9 sources) Uncomplicated mild persistent asthma; Translations: [Mild [...] without status migrainosus] Chronic Malaise and fatigue (9 sources) Fatigue; Translations: [Chronic fatigue, unspecified] Onset: 3 07-20-2023 Chronic Mood disorders (20 sources) Affective psychosis; Translations: [Unspecified mood [affective] [...] 2 Resolved: 2 Chronic Other endocrine disorders (9 sources) Hypoglycemia; Translations: [Hypoglycemia, unspecified] Onset: 3 [...] skin] Episodic Other and delivery including normal (4 sources) Third trimester ; Translations: [Encounter for [...] [30 weeks gestation of ] 07-04-2024 Episodic Residual codes; unclassified (2 sources) Gestation period, 32 weeks; Translations: [32 weeks gestation of ] 07-18-2024 Episodic Unclassified (1 source) Acute cough; Translations: [...] Onset: 03-10-2022 Resolved: 03-10-2022 Episodic Menstrual disorders (10 sources) Missed period; Translations: [Irregular menstruation, unspecified] Onset: 07-20-2023 Resolved: 08-27-2023 08-27-2023 Chronic Mood disorders (9 sources) Mood disorders Onset: 10-21-2023 10-21-2023 Nonspecific chest pain (2 sources) Chest pain, unspecified Onset: 03-10-2022 Resolved: 04-10-2022 Episodic Other aftercare (2 sources) Other pen[facility]iary (current) drug therapy Onset: 09-03-2021 Resolved: 01-02-2022 [...] Range Facility Urinalysis macro (dipstick) panel (U)on 07-18-2024 Bilirubin, UA Negative Negative - 4(70) +++ mg/dL [facility] Blood, UA Negative Negative - 50 Brandon/mcL [facility] Clarity, UA Clear [facility] Color, UA Yellow [facility] Glucose, UA Negative Negative - 2000(110) ++++ mg/dL [facility] Interpretation and review of laboratory results Normal [facility] Ketones, UA Negative Negative - 160(16) ++++ mg/dL [facility] Leukocytes, UA Negative Negative - 500+++ Phil/mcL [facility] Nitrite, UA Negative Negative - Positive [facility] pH, UA 6.5 5 - 9 [facility] Protein, UA Negative Negative - 2000(20) ++++ mg/dL [facility] Spec Grav, UA 1.025 1 - 1.03 [facility] Urobilinogen, UA 0.2 0.2 - 12 mg/dL Critical access hospital ALL CBC WITH AUTO DIFFon BASOPHILS ABSOLUTE AUTO 0 [facility] Basophils/100 WBC (Bld) 0.3 % 0.2 - 2.0 % [facility] Eosinophils/100 WBC (Bld) 1.2 % 0.9 - 7.0 % [facility] Erythrocyte distribution width (RBC) [Ratio] 12.4 % 11.0 - 15.0 % [facility] Hematocrit (Bld) [Volume fraction] 30.7 % Low 36.0 - 48.0 % [facility] Hemoglobin (Bld) [Mass/Vol] 10.3 g/dL Low 12.0 - 16.0 g/dL [facility] IMMATURE GRANULOCYTES ABS AUTO 0.21 High [facility] Immature granulocytes/100 WBC (Bld) 1.7 % High 0.0 - 0.5 % [facility] Interpretation and review of laboratory results Abnormal [facility] LYMPHOCYTES ABSOLUTE AUTO 2.4 [facility] Lymphocytes/100 WBC (Bld) 19.3 % Low 20.5 - 60.0 % [facility] MCH (RBC) [Entitic mass] 30.9 pg 26.7 - 34.0 pg [facility] MCHC (RBC) [Mass/Vol] 33.6 g/dL 29.9 - 35.2 g/dL [facility] MCV (RBC) [Entitic vol] 92.2 fL 81.0 - 99.0 fL [facility] MONOCYTES ABSOLUTE AUTO 0.9 High [address] [facility] Monocytes/100 WBC (Bld) 7 % 1.7 - 12.0 % [facility] NEUTROPHILS ABSOLUTE AUTO 8.7 High [facility] Neutrophils/100 WBC (Bld) 70.5 % 43.0 - 75.0 % [facility] Platelet mean volume (Bld) [Entitic vol] 10.2 fL 9.5 - 13.5 fL [facility] TBH EO # 0.2 [facility] PLT [facility] RBC 3.33 Low [facility] WBC 12.3 High [facility] Urinalysis macro (dipstick) panel (U)on 07-04-2024 Bilirubin, UA Negative Negative - 4(70) +++ mg/dL [facility] Blood, UA Negative Negative - 50 Brandon/mcL [facility] Clarity, UA Clear [facility] Color, UA Yellow [facility] Glucose, UA Negative Negative - 2000(110) ++++ mg/dL [facility] Interpretation and review of laboratory results Normal [facility] Ketones, UA Negative Negative - 160(16) ++++ mg/dL [facility] Leukocytes, UA Negative Negative - 500+++ Phil/mcL [facility] Nitrite, UA Negative Negative - Positive [facility] pH, UA 6 5 - 9 [facility] Protein, UA Negative Negative - 2000(20) ++++ mg/dL [facility] Spec Grav, UA 1.015 1 - 1.03 [facility] Urobilinogen, UA 0.2 0.2 - 12 mg/dL Critical [facility] hospital Coding Summaryon 05-30-2024 Coding Summary HTMLBase 64 PamwuvefPIi7vQs+PGhlYWQ+PE 2BBBUqD75cfECikW4dF3WDWAiT EqbxGHBWERhGSpGztvCrJS3jpI NjZXJu IC8+SG5qSHNqGyyuaVQzl5W3jM K7O36orc2wHOfstMG3RKNsVgJs alzpi9bqkCm6CQygLhpsHsQs EONnlU61KMY6kH34Vs61uQNxwX Pud6gznEt7YfWgEPPhGVH5nXnp PEpmo6VcGBFqH68agYTev9D4 SKSiaKdggSSzEtApeGK3yD9vCZ dwlzmyd3msqrlnVjq0lp11kMEj r9P4pYF3J4RssjD1DCPbuWIl AzvjiRATdL3jlsmcs4glhsdmHz ByZREyNPf1KVw5LPYsoJzdHsWy XH57HTP9MLEifvQfF1GnBJSr wNqrJhH7z4L4Zs6BH7FYNzqgZ3 VNTUFSWTwvdGQ+KG43ty61V8Wq HhjcOiq2OMOyZMI7gVZ2xI0u WWNmMIlsi4F0eXP2M9EzvsYjhf 6yi8pjGBBpIMowC60alZBtq8E7 POAqaZA8WXCtkKuxQgEboL59 Oyc+HIXrwIxsv5GrZovbx6faj0 malUa6VfvoIKXssbHseAudNXQ3 l6WoPh0lOFNdxRH7dNH1eI6l HyVwNyY4TPlkN413IrCxtAAwLz lpI27uO0OdzOP+CUKnBhu9MWMm hXwsSN3tX5YeWIRwlszliVYd fGzxEQ1uLLGnepxtETBpyF6sIY LwQ2k4ViRwWpQ2QQquW4OzJWMr yrvfEr51wF2iJkZlPqE3AZyd K5BepxE2YEBbvZLjDLyvAHJ4C9 6gv1W1DWHuJYZvQXL3xPU3aV5x bGlnbjogbGVmdDsgdmVydGlj TSxgBRknE298ZARodXjhYeOgJM luZyBEYXRlOiAgMDkvMTAvMjAy NDwvdGQ+EMQaEMX3rTmyKMTj uMLmBWklAs2ykGmhbVyjMB5bVG GtirmdTEFjbB5rUKXdvYBfdRzd YJ5uBLCcltboq099JbLlENQ8 VZNgfMEgB1HluZ2rZhJgEWLqFB IjW2QexZMhCXlfD148VDhiNkJ7 OQBbhhBaN1IjFZCusSffInC3 u2B4Js8Tm4TpyemnR7QfnXNgIb YbSrkeBQo4G8DyLquceFS+PC90 SJSuIV47AFe8OHN2xJcmSUbs BQPrK8YufI7fJaHiTXOvUWZrNc c+PHRhYmxlIHdpZHRoPScxMDAl MyJsjHxiSZ6iOt0iAYEuUTIm vLiljVEsWxSqt7ayFCCyGSzjYA 0bpBkwD6BsgOH3CSWxj1j3Hi62 F96nG9FzeTK+CRAmkJB1nJN8 uS0oOaRfKqZ8YZtjP415UeIsqB FaMtfzv3vcx4iyeAe6NmD6RBJs xzRobGgwTQL0l6XoUr41D55r IHdpZHRoPSIxNSUiIHZhbGlnbj 6dbP7qAf9+YEZgxFC4pRJ6lQ5u KvTlUxT5RZojZ957UeOfhSXx Lfvkm8sjz2aaeHc3DfKcBIQldp LmuUbpSJY7o5RqKa24P3KhgXkh y5QkSdw9pr80wFGwe7Z6jEX9 V0MdJFXxogaqyGPioGprSU4pWW EdetcgSCEfqR0fHJClP2b8CrNp GkL7ZEbrP6JjupS6DFBclDZv PVQkxRIBuZ3dpqsho8aolhuxJi RoEZXmXUi9YPz8PKNpqMiqZbVz UVY5WiD2JWS8fFRwuG3cxAam ukvbgZ6tMjm+KTM0iAHxpMODJJ 1lOjwvdGQ+VRShKCK8bUkeCZoc BEUoaM1pEWPzQ4u1YsSaUiZ4 KQiuH3YwpnR5RGNxsGRyRKRrqD GMsG9xbslqn9hfjklkEkRsCERm IBu3CBn7HNEchJueKgPrODB3 QxQ5EZT3xKPusD2imCdfowgibE 9wOyc+UemeoIwgLVT8MTo8C8Wq Pst3TQYzvFikME7ydCZtIExe Lu5wpCoptDwyLE5iDONvyflzg9 94EmIjv1voXZZwlPHeDPxdUBY9 L84jo6R6EAIdZCDzQGB1iOK8 hP1toJbskatctKHgiHyyybXsgG neWUroRHhyB235TPOrmJihVlRv MSs1O5BwZeu8MHQwlDwvJC2p cQTnKTmlXb2aqPbygBncDR7pBQ Zyhgzhh555YyPuw4haUXDmcLUe NPsjCSC8E41eb6I3EKOcDVXh NQH5nWG1jF8flIuinnpdkGJcvF fhbvVbvOucQKpgSOhlB397LHGv oEpwJdVceTm1R1MaXld0QGVv jHgxKQ5whHDhWRhfLw2ysUfnmH vtWS8cNMGqeslus494GxCbv6ss MXFxsDRnYRzlDEA1X98mn3B7 QJOlBJAsGVO3cAW7cV2rcWzrdm ogbGVmdDsgdmVydGljYWwtYWxp L617WNHcqIsqFdBkrMgxvuPb NNkvSXo7T6DgWyowgOB+PC90YW DoNO86fXLlcNZdp3ynhCl4YfKl VCGdJDF6iYyaXVczj2QzWRFi C16kkJLsm9H8HVZahPrlvMJdZs OglIF6eI0vKBxainwnk8tefiga Fenhy7xkpr42lS11F98bDMhl HGNmEKWcBVDdLRMyyClvcb7knE 9wIi8+QCJdcCR7nEB1yU6fHVPx GaG9KBoiF054UpOqjRBoZblr v7kzq0mfrWf8PrZ3TJWtwmAjeO pmMPI6j2QcMa85W40xWEbzHWCy AEMnYCDwOQTpjMepli5fdM4y Ii8+VFDlzFY2sST0oA8sOdNeXa Q9ECnbB647SfLisTHqEhmxE69v K2MbxTH+QDVxCsf5KTXuaCep ZN8ewZOmYLydYy3sZNJ4JaUfIl SgCStaD0TcVFPwlrnkdmgyrXK3 DSRfPQNioN02Kf0dfRtpYZOm bJLPlN0dhylrq1dgqcdfJvDlIO CpAXt3GGb0LTWqbOsbPxYsPEU4 JsL6FDS2pIAwwR4zvKxgfzwh fN5hF5OtNFZpzbpqYx12sQ0cCh QhSfG8THonOnj+Dd4APUweQ8ZV VExZTiBMRUlHSDwvdGQ+PHRk TYS3pOodXHpwEZQhaS3xQTIrK5 v7RdIePkK4LPivL0NnDUEtfqvt Nb34iA4eBgUoEyH3LAphX9Mv dxW1SAFmkXHuWBfgRSW4Q00vb9 X5DXUcLMPvETN7oVT8hP4clPjk bjogbGVmdDsgdmVydGljYWwt VCneH170UXQfvTypFqZ5IaOzJi Z0GLr5S4TxFlf2JSLzmZcxDH4h qQMnLJsoQd1jlHoluLjgAM2f INBsvakxWMWufE2zFRUyrMEkcT bdRI4wWBYfuyvic035OuTkSJK5 IJDnaOUdL5AxjS6dDcPqFVXw PBSmX9IrkGEdCRzpQ802GKjwOl E3AZMlduZwA6HgNBSquUegMxK0 t1O8Kx3vPQTVTRSsycvcbKI+ BZYvLNI6mNztMWphLXEumX5lRX IjY2a6MxPoZkC1QQiaX4LuDRDf wqaxFa11aN7hQgCsAqM2GSeq N7OjhnE4TZBsePEjPWhmGFP1T8 1ia2W2PIZaXIBiJAN0gLX1zB8k bGlnbjogbGVmdDsgdmVydGlj YEubPQbkW556PBTigGpzYiZOZZ FMRTwvdGQ+GKMvYWR5fLftDKly LSLhrF3aWFHgC0f1BvZsJmQ6 XZyzK3FvFWXhrlioDn40wO1uCz SkKtO7RZtkL5MsidG9IKYwqIDi IVxwSAY2H59ho8S3KTPmPUJk BTP8cVY2yA3opKrmeuciqDWpbF mqmbPwnXsgJSnjDWilX461MDFc uWuxTf1EVV23QF23P2UfRewf dGFibGU+PHRhYmxlIHdpZHRoPS woYOTrWyWssGeeHS7rUj2yZYOw SAXghVavpHXgToNub8pzVRFy XIusBB6boYriI5AmdFT5XXIxl5 v2Hk54A05eA4VwtGL+PGNvbCB3 rZC5fP1eEfPvXqH5NRewU443 TrWvnBQsVijfy1nax6nkuPl8Ai CpQVBmqdVypXkiPRP2e8LvVv68 I09zTIuiGSDoLEJlUXXsMJPl zZtjtx6ctB7bMp8+FBWukNQ2xV Q4xK1pJzGzWhL5GJgfY388HhTd rQMxFqpgQ89wL1SmcSF+PHRy Zow3PULqnIzeGF8fcHXsBWmqJx 8hQPO1PeCqTfVgPGfyH8CrOAAz ytsfmgjnuWQ3JZLgWSGtkJ03 Ej3itWmvKg8lAEPrQLW8SWLobS QtY2EsfS8hGrRbJIWrVTVpN7Oa sJUpKBebR613SMwlDiS8XKCc loYiK8JySYRgwErkOvW5w8B2Xw 5WsClumSAxIK3sUwIiZLx7A4Ad Rnp6FKLdkOxzOX9tmSSbLCms Mt1ajIujsEedCD3uQYDziktww2 52JnPnz0uzGIDavRAgTUwbYTO0 Q47in0R3NWXyNBObFKE6fFR8 wR4alPlsiovpqWOxsVbffwKpzP pcAAwbBBuyB418HNNwxKnpSdZU Rly8O5GtQpg5VDFnmTdyIL8l lZEoMZazUb1mxXhgoCtwAF6jJZ Bylpwnl324HiTfn2zqEBQjcVEh QIgpHYH7G04ra2M1LLSmOIWz DVB0bOA5lS9qwTmykwxtmZDzkC kpxoSsdVanDEfiJTqdD219MLBx hOesQx1HZqx6D7UhKet5KUMw tSxhDV4kyGFmROljIv3fbOzfkU qbFQ9wXMFuqnszk086PeEzv1us DFGrhFEvDLucZYO2X57ix4W6 CWHuYQCcDXY4gTZ1kF0qhWozbp ogbGVmdDsgdmVydGljYWwtYWxp G279NQCtuMhvPpGkzRHpMzif dGQ+LH61lm43T8ZqUnnoKwe4TC YyGRW3kEX3vA3pBDSqTAqrk7D0 oAJ0W1IplpXvqt5in1caWBRs ZTo (more content not included)... Normal [facility] Bacteria [Presence] in Urine by AutomatedOrdered By: Andrzej Grace on 05-23-2024 Bacteria Auto Ql (U) 1+ [HPF] High None Seen [facility] Bilirubin Test strip Ql (U)O rdered By: Andrzej Grace on 05-23-2024 Bilirubin Ql (U) Negative Negative [facility] Color of Urine by AutoOrdere d By: Andrzej Grace on 05-23-2024 Color (U) Light-yellow Normal Yellow [facility] Comment on above: Order Comment: Name Collection Type:: Clean-Voided Midstream Performed By: #### A DDONUAPLUS #### [facility] [address] [place], [place] [id number] [place] Crystals.amorphous [Presence ] in Urine by Computer assisted methodOrdered By: Andrzej Grace on 05-23-2024 Crystals.amorphous Computer assisted Ql (U) 1+ [HPF] [facility] Dipstick and Microscopicon 0 05-23-2024 Amorphous Crystal,Urine 1+ Normal T [facility] Comment on above: Order Comment: Name Collection Type:: Clean-Voided Midstream Performed By: #### A DDONUAPLUS #### [facility] [address] [id number] [place] Bacteria,Urine 1+ High None Seen [facility] Comment on above: Order Comment: Name Collection Type:: Clean-Voided Midstream Performed By: #### A DDONUAPLUS #### [place] [address] [place] Bilirubin,Urine Negative Normal Negative [facility] Comment on above: Order Comment: Name Collection Type:: Clean-Voided Midstream Performed By: #### A DDONUAPLUS #### [address] Glucose Ql (U) Normal Normal Normal [facility] Comment on above: Order Comment: Name Collection Type:: Clean-Voided Midstream Performed By: #### A DDONUAPLUS #### [place] [address] [place] Hyaline Casts,Urine None Normal 0-8 [facility] Comment on above: Order Comment: Name Collection Type:: Clean-Voided Midstream Performed By: #### A DDONUAPLUS #### [place] [address] [place] Mucus,Urine Rare Normal [facility] Comment on above: Order Comment: Name Collection Type:: Clean-Voided Midstream Result Comment: PERF ORMED BY: [place] [address] PATHOLOGIST INSTRUCTOR DECORATING SADAF YOUNGBLOOD M.D. Performed By: #### A DDONUAPLUS #### [place] [address] [place] Nitrite,Urine Negative Normal Negative [facility] Comment on above: Order Comment: Name Collection Type:: Clean-Voided Midstream Performed By: #### A DDONUAPLUS #### [place] [address] [place] Occult Blood,Urine Negative Normal Negative [facility] Comment on above: Order Comment: Name Collection Type:: Clean-Voided Midstream Result Comment: PERF ORMED BY: [place] [address] PATHOLOGIST INSTRUCTOR DECORATING SADAF YOUNGBLOOD M.D. Performed By: #### A DDONUAPLUS #### [address] Protein,Urine Negative Normal Negative [facility] Comment on above: Order Comment: Name Collection Type:: Clean-Voided Midstream Performed By: #### A DDONUAPLUS #### [address] RBC,Urine 1-2 Normal 0-4 [facility] Comment on above: Order Comment: Name Collection Type:: Clean-Voided Midstream Performed By: #### A DDONUAPLUS #### [address] Specificy [place],Urine 1.013 Normal 1.00 1-1.03 0 [facility] Comment on above: Order Comment: Name Collection Type:: Clean-Voided Midstream Performed By: #### A DDONUAPLUS #### [address] Squamous Epithelial Cell,Urine 10-19 High 0-2 [facility] Comment on above: Order Comment: Name Collection Type:: Clean-Voided Midstream Performed By: #### A DDONUAPLUS #### [address] Urobilinogen,Urine Normal Normal Normal [facility] Comment on above: Order Comment: Name Collection Type:: Clean-Voided Midstream Performed By: #### A DDONUAPLUS #### [place] [address] [place] WBC,Urine 3-4 Normal 0-4 [facility] Comment on above: Order Comment: Name Collection Type:: Clean-Voided Midstream Performed By: #### A DDONUAPLUS #### [address] Epithelial cells.squamous [# /area] in Urine sediment by Automated countOrdered By: Andrzej Grace on 05-23-2024 Epithelial cells.squamous Auto (Urine sed) [#/Area] 10-19 [HPF] High 0-2 [facility] Erythrocytes [#/area] in Uri ne sediment by Automated countOrdered By: Andrzej Grace on 05-23-2024 RBC Auto (Urine sed) [#/Area] 1-2 [HPF] 0-4 [facility] Fibronectinon 05-23-20 24 Fibronectin Negative Normal Negative [facility] Comment on above: Order Comment: Comme nt patients 22 - 34 6/7 weeks prior to vaginal exam Result Comment: PERF ORMED BY: [place] [address] PATHOLOGIST INSTRUCTOR DECORATING SADAF YOUNGBLOOD M.D. Performed By: #### L IPID, B12, FOL, T4F, TSH3, FSH, [id number], CMP, MG, FE and TIBC, SAKINA, CRP #### [facility] [address] [place] [address] fibronectinOrdered By: Andrzej Grace on 05-23-2024 Fibronectin. (Vag fld) [Mass/Vol] Negative Negative [facility] Glucose [Mass/volume] in Uri ne by Test stripOrdered By: Andrzej Grace on 05-23-2024 Glucose Test strip (U) [Mass/Vol] Normal mg/dL Normal [facility] Hemoglobin Test strip Ql (U) Ordered By: Andrzej Grace on 05-23-2024 Hemoglobin Ql (U) Negative Negative [facility] Hyaline casts [#/area] in Ur ine sediment by Automated countOrdered By: Andrzej Grace on 05-23-2024 Hyaline casts Auto (Urine sed) [#/Area] None [LPF] 0-8 [facility] Ketones [Presence] in Urine by Test stripOrdered By: Andrzej Grace on 05-23-2024 Ketones Ql (U) Negative Normal Negative [facility] Comment on above: Order Comment: Name Collection Type:: Clean-Voided Midstream Performed By: #### A DDONUAPLUS #### [facility] [address] [place] [address] Leukocyte esterase [Presence ] in Urine by Test stripOrdered By: Andrzej Grace on 05-23-2024 Leukocyte esterase Test strip Ql (U) Negative Normal Negative [facility] Comment on above: Order Comment: Name Collection Type:: Clean-Voided Midstream Performed By: #### A DDONUAPLUS #### [facility] [address] Leukocytes [#/area] in Urine sediment by Automated countOrdered By: Andrzej Grace on 05-23-2024 WBC Auto (Urine sed) [#/Area] 3-4 [HPF] 0-4 [facility] Mucus [Presence] in Urine by AutomatedOrdered By: Andrzej Grace on 05-23-2024 Mucus Auto Ql (U) Rare [LPF] [facility] Nitrite Test strip Ql (U)Ord ered By: Andrzej Grace on 05-23-2024 Nitrite Ql (U) Negative Negative [facility] Protein Test strip (U) [Mass /Vol]Ordered By: Andrzej Grace on 05-23-2024 Protein (U) [Mass/Vol] Negative Negative [facility] Specific gravity Test strip (U) [Rel density]Ordered By: Andrzej rGace on 05-23-2024 Specific gravity (U) [Rel density] 1.013 1.001-1.03 0 [facility] Urine appearanceOrdered By: Andrzej Grace on 05-23-2024 Appearance (U) Cloudy Critically abnormal Clear [facility] Comment on above: Order Comment: Name Collection Type:: Clean-Voided Midstream Performed By: #### A DDONUAPLUS #### [facility] [address] [place] [address] Urobilinogen Test strip (U) [Mass/Vol]Ordered By: Andrzej Grace on 05-23-2024 Urobilinogen (U) [Mass/Vol] Normal mg/dL Normal [facility] pH of Urine by Test stripOrd ered By: Andrzej Grace on 05-23-2024 pH (U) 6.5 [pH] Normal 5.0-9.0 [facility] Comment on above: Order Comment: Name Collection Type:: Clean-Voided Midstream Performed By: #### A DDONUAPLUS #### [facility] [address] [place], [place] [id number] [facility] ED Clinical Summaryon 2023 ED Clinical Summary [facility] [address] [place] [address] Clinical Summary PERSON INFORMATION Name: LE ROCHA Age: 23 Years Sex: FEMALE : 2000 MRN: Acct#: Visit Reason: UC - Dental Pain; DENTAL PAIN Arrival: 05/22/2024 13:14:06 Discharge: 05/22/2024 14:17:00 LOS: 000 01:03 Check In: 05/22/2024 13:14:06 Checkout: 05/22/2024 14:17:00 Address: [address] [place] [id number] PCP: Raeann Ch MSN REACHER PROVIDER INFORMATION Provider Role Assigned Unassigned Yon [...] Home PATIENT EDUCATION INFORMATION Instructions: Dental Pain, [id number]; Dental Pain, Zhnw-ga-[id number] Follow-Up: With: Address: When: Raeann Ch MSN REACHER [address] [place] [phone] Within 3 to 5 days Comments: [...] verbalizes understanding of instructions given Comment: Normal [facility] ED Patient Summaryon 024 ED Patient Summary [facility] ? Urgent Care [address] [place] [address] PATIENT DISCHARGE INSTRUCTIONS Patient Information Name: LE ROCHA Age: 23 Years Date of : 2000 [facility]: [id number] Reason For Visit: UC - Dental Pain; DENTAL PAIN Arrival Time: 05/22/2024 13:14:06 Primary Care Physician: Raeann Ch MSN REACHER Attending Physician: Yon Templeton CNP Comment: Patient Education With: Address: When: Raeann Ch MSN REACHER [address] [place] [phone] Within 3 to 5 days Comments: [...] these instructions at home: Medicines ? Take cxix-bky-xdyszxk and prescription medicines only as told by [...] to the area. Brushing your teeth ? [place] your teeth twice a day using a [...] when you eat or drink. ? Take exkt-abw-pnqkxgw and prescription medicines only as told by your dentist. ? Watch your dental pain for any changes. Let your dentist know if symptoms get worse. This information is not intended to replace advice given to you by your health care provider. Make sure you discuss any questions you have with your health care provider. Document Revised: 06/11/2021 Document Reviewed: 06/11/2021 [employer] Patient Education ? 2023 [employer]. Dental Pain Dental pain is often a sign that something is wrong with your teeth or gums. You can also mandel (more content not included)... Normal [facility] [place] [address] Urgent Care Record [facility] ? Urgent Care [address] [id number] PATIENT DISCHARGE INSTRUCTIONS Patient Information Name: LE ROCHA Age: 23 Years Date of : 2000 Reason For Visit: UC - Dental Pain; DENTAL PAIN Arrival Time: 05/22/2024 13:14:06 Primary Care Physician: Raeann Ch MSN REACHER Attending Physician: Yon Templeton CNP Comment: Visit Diagnosis: Diagnoses This Visit Dental infection (K04.7) Impacted tooth (K01.1) UC - Dental Pain ([id number]) If you received any narcotics, sedation, or [...] documents With: Address: When: Raeann Ch MSN REACHER [address] [place] [id number] Medication Information: The exam and treatment you received today in the [facility] were for an urgent problem and are not intended as complete care. It is important for you to follow up with a doctor, nurse practitioner, or physician?s event sales assistant for ongoing care. If your symptoms [...] so we can reach you if necessary. [facility] has provided you with a complete list of medications post discharge. Please inform your target trimmer/provider of your visit and for further instruction on these medications. Any specific questions regarding your chronic medications and dosages should be discussed with your primary care physician(s) and/or pharmacist. New Medications [facility], [address] [place], [place] [id number], [phone] amoxicillin (amoxicillin 500 mg oral capsule) 1 [...] these instructions at home: Medicines ? Take wiyk-gmm-dgpwwsl and prescription medicines only as told by your dentist. ? If you were prescribed an antibiotic medicine, take it as told by your dentist. Do not stop taking it even if you start to feel better. Eating and drinking D (more content not included)... Normal [facility] Quantiferon-TB Plus (Client Incubated)on 04-17-2024 Gamma interferon background IA Qn (Bld) 3.22 International_Unit/mL Invalid Interpretation Code [facility] Comment on above: Performed By: #### 1 [id number] #### [facility] [address] [place] [address] M. tuberculosis stim IFN-g by CD4+ CD8+ T-cells corrected for background Qn (Bld) 0.00 International_Unit/mL Invalid Interpretation Code [facility] Comment on above: Performed By: #### 1 [id number] #### [facility] [address] [place] [address] M. tuberculosis stim IFN-g by CD4+ T-cells corrected for background Qn (Bld) 0.00 International_Unit/mL Invalid Interpretation Code [facility] Comment on above: Performed By: #### 1 [id number] #### [facility] [address] [place] [address] M. tuberculosis stim IFN-g Ql (Bld) [Interp] Negative Invalid Interpretation Code Negative [facility] Comment on above: Result Comment: No [...] interferon gamma. Chemiluminescence immunoassay methodology Performed at: [place] [address] [id number] PhD Calvin Milner Performed By: #### 1 [id number] #### [facility] [address] [place] [address] Mitogen stimulated gamma interferon corrected for background Qn (Bld) >10.00 Invalid Interpretation Code [facility] Comment on above: Performed By: #### 1 [id number] #### [facility] [address] [place] [address] Service comment (Unsp spec) [Interp] Comment Invalid Interpretation Code [facility] Comment on above: Result Comment: Bairon [...] for the test. Performed By: #### 1 [id number] #### [facility] [address] [place] [address] Hep Bs Abon 04-15-2024 HBV surface Ab Ql (S) Reactive Invalid Interpretation Code [facility] Comment on above: Result Comment: Non Reactive: Inconsistent with immunity, less than 10 mIU/mL Reactive: Consistent with immunity, greater than 9.9 mIU/mL Performed at: [facility] [address] [place], [place] [id number] PhD Calvin Milner Performed By: #### 2 [id number] #### [facility] [address] [place] [address] Measles/Mumps/Rubella Immuni tyon 04-15-2024 MeV IgG IA Qn (S) 26.7 A unit/mL Invalid Interpretation Code Immune >16.4 [facility] Comment on above: Result Comment: Nega tive <13.5 Equivocal 13.5 - 16.4 Positive >16.4 Presence of antibodies to Rubeola is presumptive evidence of immunity except when acute infection is suspected. Performed By: #### 3 [id number] #### [facility] [address] [place] [address] MuV IgG IA Qn (S) 209.0 A unit/mL Invalid Interpretation Code Immune >10.9 [facility] Comment on above: Result Comment: Nega tive <9.0 Equivocal 9.0 - 10.9 Positive >10.9 A positive result generally indicates past exposure to Mumps virus or previous vaccination. Performed at: [facility] [address] [place], [place] [id number] PhD Calvin Milner Performed By: #### 3 [id number] #### [facility] [address] [place] [address] Rubella virus IgG Qn (S) 4.08 [IU]/mL Invalid Interpretation Code Immune >0.99 [facility] Comment on above: Result Comment: Non- immune <0.90 Equivocal 0.90 - 0.99 Immune >0.99 Performed By: #### 3 [id number] #### [facility] [address] [place] [address] Varic IgGon 04-15-2024 VZV IgG IA Qn (S) 514 Invalid Interpretation Code Immune >165 [facility] Comment on above: Result Comment: Nega tive <135 Equivocal 135 - 165 Positive >165 A positive result generally indicates exposure to the pathogen or administration of specific immunoglobulins, but it is not indication of active infection or stage of disease. Performed at: [facility] [address] [place], [place] [id number] PhD Calvin Milner Performed By: #### 1 [id number] #### [place] [address] [place] [address] BioFire Detectedon 4 BioFire Detected Detected Critically abnormal Not Detecte [facility] Comment on above: Result Comment: This is a duplicate RP2.1 COVID (PCR) result to be used for statistical tracking purpose only. PERFORMED BY: [facility] [address] [place] [address] PATHOLOGIST INSTRUCTOR DECORATING SADAF YOUNGBLOOD M.D. Performed By: #### L IPID, B12, FOL, T4F, TSH3, FSH, [id number], CMP, MG, FE and TIBC, SAKINA, CRP #### [facility] [address] COVID-19 Detected/Not Detect edOrdered By: Ginny Cuello on 03-30-2024 SARS-CoV-2 (COVID-19) RNA KYLAH+non-probe Ql (Nph) Detected Abnormal Not Detecte [facility] Comment on above: This is a [...] A H3 Blank Space -- PERFORMED BY: [place] [address] PATHOLOGIST INSTRUCTOR DECORATING SADAF YOUNGBLOOD M.D. Normal [facility] Comment on above: Performed By: #### L IPID, B12, FOL, T4F, TSH3, FSH, [id number], CMP, MG, FE and TIBC, SAKINA, CRP #### [facility] [address] Respiratory pathogens DNA an d RNA panel - Nasopharynx by KYLAH with non-probe detectionOrdered By: Ginny Cuello on 03-30-2024 Respiratory pathogens DNA and RNA panel KYLAH+non-probe (Nph) [facility] ED Clinical Summaryon 2022 ED Clinical Summary [facility] ? Urgent Care [address] [place], [place] [id number] Clinical Summary PERSON INFORMATION Name: LE ROCHA Age: 23 Years Sex: FEMALE : 2000 MRN: Acct#: Visit Reason: Medical screening exam; OTTERBEIN PHYSICAL Arrival: 09/02/2023 11:23:52 Discharge: 09/02/2023 12:23:00 LOS: 000 01:00 Check In: 09/02/2023 11:23:52 Checkout: 09/02/2023 12:23:00 Address: [address] [place] [id number] PCP: Provider, Unlisted PROVIDER INFORMATION Provider Role [...] verbalizes understanding of instructions given Comment: Normal [facility] ED Patient Summaryon 023 ED Patient Summary [facility] ? Urgent Care [address] [place], [place] [id number] PATIENT DISCHARGE INSTRUCTIONS Patient Information Name: LE ROCHA Age: 23 Years Date of : 2000 [facility]: [id number] Reason For Visit: Medical screening exam; OTTERBEIN PHYSICAL Arrival Time: 09/02/2023 11:23:52 Primary Care Physician: Provider, Unlisted Attending Physician: Tyler Armstrong PA-C Comment: Patient Education Medication Information: The exam and treatment you received today in the [facility] Emergency Department were for an urgent problem and are not intended as complete care. It is important for you to follow up with a doctor, nurse practitioner, or physician?s event sales assistant for ongoing care. If your symptoms [...] so we can reach you if necessary. [facility] Emergency Department has provided you with a complete list of medications post discharge. Please inform your target trimmer/provider of your visit and for further instruction on these medications. Any specific questions regarding your chronic medications and dosages should be discussed with your primary care physician(s) and/or pharmacist. Visit Information Visit Diagnosis: Diagnoses This Visit Medical screening exam ([id number]) If you received any narcotics, sedation, or [...] documents Reason for Visit: Medical Screening Exam. [facility]. Allergies: Substance Reaction Symptoms Type Comments [...] for Disease Control and Prevention May 2014 [facility] Urgent Care Note- Provideron 09-02-2023 Urgent Care Note- Provider Patient: LE ROCHA Age: 23 years Sex: FEMALE : 2000 Associated Diagnoses: None Author: Tyler Armstrong PA-C Basic Information Additional information: Chief Complaint from Nursing Triage Note : Chief Complaint 09/02/2023 11:54 EST Chief Complaint Medical Screening Exam. [facility] Physical. . History of Present Illness Patient [...] 09/02/2023 12:03 EST] Tyler Armstrong PA-C Normal [facility] [place] 023 Urgent Care Record [facility] ? Urgent Care [address] [place] [id number] PATIENT DISCHARGE INSTRUCTIONS Patient Information Name: LE ROCHA Age: 23 Years Date of : 2000 [facility]: [id number] Reason For Visit: Medical screening exam; JULIET PHYSICAL Arrival Time: 09/02/2023 11:23:52 Primary Care Physician: Provider, Unlisted Attending Physician: Tyler Armstrong PA-C Comment: Visit Diagnosis: Diagnoses This Visit Medical screening exam ([id number]) If you received any narcotics, sedation, or [...] and treatment you received today in the [facility] Care were for an urgent problem and are not intended as complete care. It is important for you to follow up with a doctor, nurse practitioner, or physician?s event sales assistant for ongoing care. If your symptoms [...] so we can reach you if necessary. [facility] Urgent [facility] has provided you with a complete list of medications post discharge. Please inform your target trimmer/provider of your visit and for further instruction [...] Disease Control and Prevention May 2014 Normal [facility] Choriogonadotropin.beta subu nit [Units/volume] in Serum or PlasmaOrdered By: Raeann Ch on 08-19-2023 HCG.beta subunit Qn 0.75 m[IU]/mL [facility] Comment on above: Approximate Approxim ate hCG Gestational Age Range (mIU/ml) (weeks)0.2-1 5-50 1-2 50-500 2-3 100-5,000 3-4 500-10,000 4-5 1,000-50,000 5-6 10,000-100,000 6-8 15,000-200,000 8-12 10,000-100,000 HCG.beta subunit Qn Negative [facility] HCG,Qualitative Serumon 07-23 HCG,Qualitative Serum Negative Normal [facility] Comment on above: Result Comment: PERF ORMED BY: [facility] [address] [place] [address] PATHOLOGIST INSTRUCTOR DECORATING SADAF YOUNGBLOOD M.D. Performed By: #### L IPID, B12, FOL, T4F, TSH3, FSH, [id number], CMP, MG, FE and TIBC, SAKINA, CRP #### [facility] [address] [place] [id number] [facility] HCG,Quantitativeon HCG,Quantitative 0.75 m[iU]/mL Normal [facility] Comment on above: Result Comment: Appr oximate Approximate hCG Gestational Age Range (mIU/ml) (weeks) 0.2-1 5-50 1-2 50-500 2-3 100-5,000 3-4 500-10,000 4-5 1,000-50,000 5-6 10,000-100,000 6-8 15,000-200,000 8-12 10,000-100,000 Performed By: #### L IPID, B12, FOL, T4F, TSH3, FSH, [id number], CMP, MG, FE and TIBC, SAKINA, CRP #### [facility] [address] HAND RIGHT WO IV CONTRAST [...] Detected Not detected Normal Not Detecte [facility] Comment on above: Result Comment: This is a duplicate RP2.1 COVID (PCR) result to be used for statistical tracking purpose only. PERFORMED BY: [address] [place] [address] PATHOLOGIST INSTRUCTOR DECORATING SADAF YOUNGBLOOD M.D. Performed By: #### L IPID, B12, FOL, T4F, TSH3, FSH, [id number], CMP, MG, FE and TIBC, SAKINA, CRP #### [address] COVID-19 Detected/Not Detect edOrdered By: Raeann Ch on 08-10-2023 SARS-CoV-2 (COVID-19) RNA KYLAH+non-probe Ql (Nph) Not detected Not Detecte [facility] Comment on above: This is a [...] A H3 Blank Space -- PERFORMED BY: [place] [id number] PATHOLOGIST INSTRUCTOR DECORATING SADAF YOUNGBLOOD M.D. Normal [facility] Comment on above: Performed By: #### L IPID, B12, FOL, T4F, TSH3, FSH, [id number], CMP, MG, FE and TIBC, SAKINA, CRP #### [place] [id number] [facility] Respiratory pathogens DNA an d RNA panel - Nasopharynx by KYLAH with non-probe detectionOrdered By: Raeann Ch on 08-10-2023 Respiratory pathogens DNA and RNA panel KYLAH+non-probe (Nph) [facility] XR HAND 3+ VIEWS RIGHTon XR [...] ALT [Catalytic activity/Vol] 10 U/L Normal 7-52 [facility] Comment on above: Performed By: #### L IPID, B12, FOL, T4F, TSH3, FSH, [id number], CMP, MG, FE and TIBC, SAKINA, CRP #### [facility] [address] [place], [place] [id number] [place] Albumin [Mass/volume] in Ser um or Plasma by Bromocresol green (BCG) dye binding methoOrdered By: Raeann Ch on 07-20-2023 Albumin BCG dye [Mass/Vol] 4.5 g/dL 3.5-5.7 [facility] Alkaline phosphatase [Enzyma tic activity/volume] in Serum or PlasmaOrdered By: Raeann Ch on 07-20-2023 ALP [Catalytic activity/Vol] 63 U/L Normal 34-104 [facility] Comment on above: Performed By: #### L IPID, B12, FOL, T4F, TSH3, FSH, [id number], CMP, MG, FE and TIBC, SAKINA, CRP #### [address] Aspartate aminotransferase [ Enzymatic activity/volume] in Serum or PlasmaOrdered By: Raeann Laine on 07-20-2023 AST [Catalytic activity/Vol] 16 U/L Normal 13-39 [facility] Comment on above: Performed By: #### L IPID, B12, FOL, T4F, TSH3, FSH, [id number], CMP, MG, FE and TIBC, SAKINA, CRP #### [address] Automated basophil %Ordered By: Raeann Laine on 07-20-2023 Basophils/100 WBC (Bld) 0.3 % Normal . [facility] Comment on above: Performed By: #### L IPID, B12, FOL, T4F, TSH3, FSH, [id number], CMP, MG, FE and TIBC, SAKINA, CRP #### [address] Automated basophil countOrde red By: Raeann Ch on 07-20-2023 Basophils (Bld) [#/Vol] 0.0 10*3/uL Normal 0.0-0.2 [facility] Comment on above: Performed By: #### L IPID, B12, FOL, T4F, TSH3, FSH, [id number], CMP, MG, FE and TIBC, SAKINA, CRP #### [address] Automated blood monocyte cou ntOrdered By: Raeann Ch on 07-20-2023 Monocytes (Bld) [#/Vol] 0.3 10*3/uL Normal 0.0-0.8 [facility] Comment on above: Performed By: #### L IPID, B12, FOL, T4F, TSH3, FSH, [id number], CMP, MG, FE and TIBC, SAKINA, CRP #### [address] Automated eosinophil %Ordere d By: Raeann Ch on 07-20-2023 Eosinophils/100 WBC (Bld) 0.9 % Normal . [facility] Comment on above: Performed By: #### L IPID, B12, FOL, T4F, TSH3, FSH, [id number], CMP, MG, FE and TIBC, SAKINA, CRP #### [facility] [address] Automated eosinophil countOr dered By: Raeann Ch on 07-20-2023 Eosinophils (Bld) [#/Vol] 0.1 10*3/uL Normal 0.0-0.45 [facility] Comment on above: Performed By: #### L IPID, B12, FOL, T4F, TSH3, FSH, [id number], CMP, MG, FE and TIBC, SAKINA, CRP #### [facility] [address] Automated monocyte %Ordered By: Raeann Ch on 07-20-2023 Monocytes/100 WBC (Bld) 4.9 % Normal . [facility] Comment on above: Performed By: #### L IPID, B12, FOL, T4F, TSH3, FSH, [id number], CMP, MG, FE and TIBC, SAKINA, CRP #### [facility] [address] Automated neutrophil %Ordere d By: Raeann Ch on 07-20-2023 Neutrophils/100 WBC (Bld) 70.0 % Normal . [facility] Comment on above: Performed By: #### L IPID, B12, FOL, T4F, TSH3, FSH, [id number], CMP, MG, FE and TIBC, SAKINA, CRP #### [facility] [address] [place] [address] [place] Bilirubin.total [Mass/volume ] in Serum or PlasmaOrdered By: Raeann Ch on 07-20-2023 Bilirubin [Mass/Vol] 1.7 mg/dL High 0.3-1.0 [facility] Comment on above: Samples from patient s who have taken Naproxen have shown spurious elevation in Total Bilirubin levels. A metabolite of Naproxen, O-desmethylnaproxen, has been shown to interfere with the Oren-Grof method for measuring Total Bilirubin. Result Comment: Samp les from patients who have taken Naproxen have shown spurious elevation in Total Bilirubin levels. A metabolite of Naproxen, O-desmethylnaproxen, has been shown to interfere with the Jendrassik-Grof method for measuring Total Bilirubin. Performed By: #### L IPID, B12, FOL, T4F, TSH3, FSH, [id number], CMP, MG, FE and TIBC, SAKINA, CRP #### [facility] [address] [place] [address] [place] C reactive protein [Mass/vol ume] in Serum or PlasmaOrdered By: Raeann Ch on 07-20-2023 CRP [Mass/Vol] 0.8 mg/dL 0.0-0.5 [facility] C-Reactive Proteinon 023 C-Reactive Protein 0.8 mg/dL High 0.0-0.5 [facility] Comment on above: Performed By: #### L IPID, B12, FOL, T4F, TSH3, FSH, [id number], CMP, MG, FE and TIBC, SAKINA, CRP #### [place] [address] [place] Calcium [Mass/volume] in Ser um or PlasmaOrdered By: Raeann Ch on 07-20-2023 Calcium [Mass/Vol] 9.6 mg/dL Normal 8.6-10.3 [facility] Comment on above: Performed By: #### L IPID, B12, FOL, T4F, TSH3, FSH, [id number], CMP, MG, FE and TIBC, SAKINA, CRP #### [place] [id number] [place] Carbon dioxide, total [Moles /volume] in Serum or PlasmaOrdered By: Raeann Ch on 07-20-2023 CO2 [Moles/Vol] 26.8 mmol/L Normal 21.0-31.0 [facility] Comment on above: Performed By: #### L IPID, B12, FOL, T4F, TSH3, FSH, [id number], CMP, MG, FE and TIBC, SAKINA, CRP #### [address] [place] [address] [place] Chloride [Moles/volume] in S ulises or PlasmaOrdered By: Raeann Ch on 07-20-2023 Chloride [Moles/Vol] 106 mmol/L Normal 98-107 [facility] Comment on above: Performed By: #### L IPID, B12, FOL, T4F, TSH3, FSH, [id number], CMP, MG, FE and TIBC, SAKINA, CRP #### [facility] [address] [place] [id number] [facility] Cholesterol [Mass/volume] in Serum or PlasmaOrdered By: Raeann Ch on 07-20-2023 Cholesterol [Mass/Vol] 148 mg/dL Normal 140-200 [facility] Comment on above: Chol less than 200 m g/dl low riskChol 201-239 mg/dl borderline riskChol 240 mg/dl and greater high risk Result Comment: Chol less than 200 mg/dl low risk Chol 201-239 mg/dl borderline risk Chol 240 mg/dl and greater high risk Performed By: #### L IPID, B12, FOL, T4F, TSH3, FSH, [id number], CMP, MG, FE and TIBC, SAKINA, CRP #### [facility] [address] [place] [id number] [facility] Cholesterol in LDL Calc [Mas s/Vol]Ordered By: Raeann Ch on 07-20-2023 Cholesterol in LDL [Mass/Vol] 86 mg/dL 0-100 [facility] Comment on above: LDL ATP III CLASSIFI CATIONLDL less than 100 mg/dL OptimalLDL 100-129 mg/dL Near or above optimalLDL 130-159 mg/dL Borderline highLDL 160-189 mg/dL HighLDL greater than 189 mg/dL Very high Cholesterol in VLDL Calc [Ma ss/Vol]Ordered By: Raeann Ch on 07-20-2023 Cholesterol in VLDL [Mass/Vol] 17 mg/dL [facility] Complete Blood Count Auto Di ffon 07-20-2023 Mean Corpuscular HGB Conc 33.8 g/dL Normal 32.0-35.0 [facility] Comment on above: Performed By: #### L IPID, B12, FOL, T4F, TSH3, FSH, [id number], CMP, MG, FE and TIBC, SAKINA, CRP #### [facility] [address] NRBC% 0.1 /100{WBC} Normal 0-0.5 [facility] Comment on above: Performed By: #### L IPID, B12, FOL, T4F, TSH3, FSH, [id number], CMP, MG, FE and TIBC, SAKINA, CRP #### [facility] [address] Comprehensive Metabolic Pane maikol 07-20-2023 Albumin [Mass/Vol] 4.5 g/dL Normal 3.5-5.7 [facility] Comment on above: Performed By: #### L IPID, B12, FOL, T4F, TSH3, FSH, [id number], CMP, MG, FE and TIBC, SAKINA, CRP #### [address] GFR/1.73 sq M.predicted MDRD (S/P/Bld) [Vol rate/Area] mL/min/{1.73_m2} Normal [facility] Comment on above: Performed By: #### L IPID, B12, FOL, T4F, TSH3, FSH, [id number], CMP, MG, FE and TIBC, SAKINA, CRP #### [address] Creatinine [Mass/volume] in Serum or PlasmaOrdered By: Raeann Ch on 07-20-2023 Creatinine [Mass/Vol] 0.70 mg/dL Normal 0.60-1.20 [facility] Comment on above: Performed By: #### L IPID, B12, FOL, T4F, TSH3, FSH, [id number], CMP, MG, FE and TIBC, SAKINA, CRP #### [address] Erythrocyte Sedimentation Ra nargis 07-20-2023 ESR (Bld) [Velocity] 15 mm/h Normal 0-19 [facility] Comment on above: Result Comment: PERF ORMED BY: [address] [place] [address] PATHOLOGIST INSTRUCTOR DECORATING SADAF YOUNGBLOOD M.D. Performed By: #### L IPID, B12, FOL, T4F, TSH3, FSH, [id number], CMP, MG, FE and TIBC, SAKINA, CRP #### [address] Erythrocyte distribution wid th [Ratio] by Automated countOrdered By: Raeann Ch on 07-20-2023 Erythrocyte distribution width (RBC) [Ratio] 12.3 % Normal 11.9-15.3 [facility] Comment on above: Performed By: #### L IPID, B12, FOL, T4F, TSH3, FSH, [id number], CMP, MG, FE and TIBC, SAKINA, CRP #### [address] Erythrocyte sedimentation ra te by Photometric methodOrdered By: Raeann Ch on 07-20-2023 ESR Photometric method (Bld) [Velocity] 15 mm/hr 0-19 [facility] Erythrocytes [#/volume] in B lood by Automated countOrdered By: Raeann Ch on 07-20-2023 RBC (Bld) [#/Vol] 4.11 10*6/uL Normal 3.60-5.00 [facility] Comment on above: Performed By: #### L IPID, B12, FOL, T4F, TSH3, FSH, [id number], CMP, MG, FE and TIBC, SAKINA, CRP #### [address] Estradiolon 07-20-2023 Estradiol 126.0 pg/mL Normal . [facility] Comment on above: Result Comment: Adul t Female: Follicular phase 12.5 - 166.0 Ovulation phase 85.8 - 498.0 Luteal phase 43.8 - 211.0 Postmenopausal <6.0 - 54.7 1st trimester 215.0 - >4300.0 Heather ECLIA methodology PERFORMED BY: [place] [address] PATHOLOGIST INSTRUCTOR DECORATING JIANLAN SUN M.D. Performed By: #### L IPID, B12, FOL, T4F, TSH3, FSH, [id number], CMP, MG, FE and TIBC, SAKINA, CRP #### [facility] [address] Ferritin [Mass/volume] in Se rum or PlasmaOrdered By: Raeann Ch on 07-20-2023 Ferritin [Mass/Vol] 20.3 ng/mL Normal 11.0-306.8 [facility] Comment on above: Performed By: #### L IPID, B12, FOL, T4F, TSH3, FSH, [id number], CMP, MG, FE and TIBC, SAKINA, CRP #### [facility] [address] [place] [address] [facility] Folateon 07-20-2023 Folate 10.4 ng/mL Normal >5.9 [facility] Comment on above: Result Comment: Yulia te reference range: >5.9 ng/ml The WHO technical consultation on folate and vitamin b12 deficiencies has determined that folate concentrations less than 4 ng/ml are considered deficient. Performed By: #### L IPID, B12, FOL, T4F, TSH3, FSH, [id number], CMP, MG, FE and TIBC, SAKINA, CRP #### [facility] [address] [place] [id number] [facility] Folate [Mass/volume] in Seru m or PlasmaOrdered By: Raeann Ch on 07-20-2023 Folate [Mass/Vol] 10.4 ng/mL >5.9 [facility] Comment on above: Folate reference ran ge: >5.9 ng/mlThe WHO technical consultation on folate and vitamin [id number] has determined that folate concentrations lessthan 4 ng/ml are considered deficient. Follicle Stimulating Hormone on 07-20-2023 Follicle Stimulating Hormone 2.8 m[iU]/mL Normal [facility] Comment on above: Result Comment: FEMA LE NORMALS (PREMENOPAUSE) MID-FOLLICULAR PHASE: 3.9-8.8 mIU/mL MID-CYCLE PEAK: 4.5-22.5 mIU/mL MID-LUTEAL PHASE: 1.8-5.1 mIU/mL FEMALE NORMALS (POSTMENOPAUSE): 16.7-113.6 mIU/mL MALE NORMALS: 1.3-19.3 mIU/mL Performed By: #### L IPID, B12, FOL, T4F, TSH3, FSH, [id number], CMP, MG, FE and TIBC, SAKINA, CRP #### [facility] [address] Follitropin [Units/volume] i n Serum or PlasmaOrdered By: Raeann Ch on 07-20-2023 Follitropin Qn 2.8 m[IU]/mL [facility] Comment on above: FEMALE NORMALS (FLOWER ENOPAUSE) MID-FOLLICULAR PHASE: 3.9-8.8 mIU/mL MID-CYCLE PEAK: 4.5-22.5 mIU/mL MID-LUTEAL PHASE: 1.8-5.1 mIU/mLFEMALE NORMALS (POSTMENOPAUSE): 16.7-113.6 mIU/mLMALE NORMALS: 1.3-19.3 mIU/mL Free testosterone measuremen t by LC-MS/MSOrdered By: Raeann Ch on 07-20-2023 Testosterone Free [Mass/Vol] 1.5 pg/mL 0.0-4.2 [facility] Comment on above: Performed at: [address] [id number] Director: Alf Simpson PhD, Phone: [phone] at: - [facility] [id number] Director: Jayne Mann MD, Phone: [phone] Glucose [Mass/volume] in Ser um or PlasmaOrdered By: Raeann Ch on 07-20-2023 Glucose [Mass/Vol] 76 mg/dL Normal 70-100 [facility] Comment on above: ADA recommended refe rence rangeRandom Glucose Reference Range is dependent on time and content of last meal. Glucose of more than 200 mg/dL in a nonstressed, ambulatory subject supports the diagnosis of Diabetes Mellitus. Result Comment: [place] om Glucose Reference Range is dependent on time and content of last meal. Glucose of more than 200 mg/dL in a nonstressed, ambulatory subject supports the diagnosis of Diabetes Mellitus. ADA recommended reference range Performed By: #### L IPID, B12, FOL, T4F, TSH3, FSH, [id number], CMP, MG, FE and TIBC, SAKINA, CRP #### [address] Hematocrit [Volume Fraction] of Blood by Automated countOrdered By: Raeann Ch on 07-20-2023 Hematocrit (Bld) [Volume fraction] 37.1 % Normal 34.0-46.4 [facility] Comment on above: Performed By: #### L IPID, B12, FOL, T4F, TSH3, FSH, [id number], CMP, MG, FE and TIBC, SAKINA, CRP #### [address] Hemoglobin [Mass/volume] in BloodOrdered By: Raeann Ch on 07-20-2023 Hemoglobin (Bld) [Mass/Vol] 12.5 g/dL Normal 11.8-15.4 [facility] Comment on above: Performed By: #### L IPID, B12, FOL, T4F, TSH3, FSH, [id number], CMP, MG, FE and TIBC, SAKINA, CRP #### [address] Insulinon 07-20-2023 Insulin 8.2 u[iU]/mL Normal 2.6-24.9 [facility] Comment on above: Result Comment: Perf ormed at: - [facility] [address] [id number] Developer Programmer Analyst: Alf Simpson PhD, Phone: [phone] Performed By: #### L IPID, B12, FOL, T4F, TSH3, FSH, [id number], CMP, MG, FE and TIBC, SAKINA, CRP #### [address] Iron [Mass/volume] in Serum or PlasmaOrdered By: Raeann Ch on 07-20-2023 Iron [Mass/Vol] 122 ug/dL Normal 50-212 [facility] Comment on above: Performed By: #### L IPID, B12, FOL, T4F, TSH3, FSH, [id number], CMP, MG, FE and TIBC, SAKINA, CRP #### [address] Iron and TIBC Profileon 06-22 % Iron Saturation 28.6 % Normal 20-50 [facility] Comment on above: Performed By: #### L IPID, B12, FOL, T4F, TSH3, FSH, [id number], CMP, MG, FE and TIBC, SAKINA, CRP #### [facility] [address] Total Iron Binding Capacity 427 ug/dL Normal 255-450 [facility] Comment on above: Performed By: #### L IPID, B12, FOL, T4F, TSH3, FSH, [id number], CMP, MG, FE and TIBC, SAKINA, CRP #### [address] Iron binding capacity [Mass/ volume] in Serum or PlasmaOrdered By: Raeann Ch on 07-20-2023 Iron binding capacity [Mass/Vol] 427 ug/dL 255-450 [facility] Iron saturation [Mass Fracti on] in Serum or PlasmaOrdered By: Raeann Ch on 07-20-2023 Iron saturation [Mass fraction] 28.6 % 20-50 [facility] Leukocytes [#/volume] correc paulie for nucleated erythrocytes in Blood by Automated counOrdered By: Raeann Ch on 07-20-2023 WBC corrected for nucl RBC Auto (Bld) [#/Vol] 6.7 10*3/uL 3.8-11.6 [facility] Leukocytes [#/volume] in Blo od by Automated countOrdered By: Raeann Ch on 07-20-2023 WBC (Bld) [#/Vol] 6.7 10*3/uL Normal 3.8-11.6 [facility] Comment on above: Performed By: #### L IPID, B12, FOL, T4F, TSH3, FSH, [id number], CMP, MG, FE and TIBC, SAKINA, CRP #### [address] Lipid Panelon 07-20-2023 LDL Cholesterol,Calculated 86 mg/dL Normal 0-100 [facility] Comment on above: Result Comment: LDL ATP III CLASSIFICATION LDL less than 100 mg/dL Optimal LDL 100-129 mg/dL Near or above optimal LDL 130-159 mg/dL Borderline high LDL 160-189 mg/dL High LDL greater than 189 mg/dL Very high Performed By: #### L IPID, B12, FOL, T4F, TSH3, FSH, [id number], CMP, MG, FE and TIBC, SAKINA, CRP #### [address] Triglyceride w/Reflex 85 mg/dL Normal 0-149 [facility] Comment on above: Result Comment: TRIG ATP III CLASSIFICATION TRIG less than 150 mg/dL Normal TRIG 150-199 mg/dL Borderline high TRIG 200-500 mg/dL High TRIG greater than 500 mg/dL Very high Standard traceable to the Center for Disease Conrtrol and Prevention (CDC) test method. Performed By: #### L IPID, B12, FOL, T4F, TSH3, FSH, [id number], CMP, MG, FE and TIBC, SAKINA, CRP #### [address] VLDL CHOLESTEROL 17 mg/dL Normal [facility] Comment on above: Performed By: #### L IPID, B12, FOL, T4F, TSH3, FSH, [id number], CMP, MG, FE and TIBC, SAKINA, CRP #### [address] Luteinizing Hormoneon 2022 Luteinizing Hormone 5.5 m[iU]/mL Normal . [facility] Comment on above: Result Comment: Adul t Female: Follicular phase 2.4 - 12.6 Ovulation phase 14.0 - 95.6 Luteal phase 1.0 - 11.4 Postmenopausal 7.7 - 58.5 Performed By: #### L IPID, B12, FOL, T4F, TSH3, FSH, [id number], CMP, MG, FE and TIBC, SAKINA, CRP #### [address] [place] [address] [place] Lymphocytes [#/volume] in Bl ood by Automated countOrdered By: Raeann Ch on 07-20-2023 Lymphocytes (Bld) [#/Vol] 1.6 10*3/uL Normal 1.00-4.8 [facility] Comment on above: Performed By: #### L IPID, B12, FOL, T4F, TSH3, FSH, [id number], CMP, MG, FE and TIBC, SAKINA, CRP #### [facility] [address] Lymphocytes/100 leukocytes i n Blood by Automated countOrdered By: Raeann Ch on 07-20-2023 Lymphocytes/100 WBC (Bld) 23.9 % Normal . [facility] Comment on above: Performed By: #### L IPID, B12, FOL, T4F, TSH3, FSH, [id number], CMP, MG, FE and TIBC, SAKINA, CRP #### [address] MCH [Entitic mass] by Automa paulie countOrdered By: Raeann Ch on 07-20-2023 MCH (RBC) [Entitic mass] 30.5 pg Normal 24.7-34.3 [facility] Comment on above: Performed By: #### L IPID, B12, FOL, T4F, TSH3, FSH, [id number], CMP, MG, FE and TIBC, SAKINA, CRP #### [address] MCHC Auto (RBC) [Mass/Vol]Or dered By: Raeann Ch on 07-20-2023 MCHC (RBC) [Mass/Vol] 33.8 g/dL 32.0-35.0 [facility] MCV [Entitic volume] by Auto mated countOrdered By: Raeann Ch on 07-20-2023 MCV (RBC) [Entitic vol] 90.1 fL Normal 80-100 [facility] Comment on above: Performed By: #### L IPID, B12, FOL, T4F, TSH3, FSH, [id number], CMP, MG, FE and TIBC, SAKINA, CRP #### [facility] [address] Magnesium [Mass/volume] in S ulises or PlasmaOrdered By: Raeann Ch on 07-20-2023 Magnesium [Mass/Vol] 1.9 mg/dL Normal 1.9-2.7 [facility] Comment on above: Performed By: #### L IPID, B12, FOL, T4F, TSH3, FSH, [id number], CMP, MG, FE and TIBC, SAKINA, CRP #### [facility] [address] Neutrophils [#/volume] in Bl ood by Automated countOrdered By: Raeann Ch on 07-20-2023 Neutrophils (Bld) [#/Vol] 4.7 10*3/uL Normal 1.8-7.7 [facility] Comment on above: Performed By: #### L IPID, B12, FOL, T4F, TSH3, FSH, [id number], CMP, MG, FE and TIBC, SAKINA, CRP #### [facility] [address] No Panel InformationOrdered By: Reaann Ch on 07-20-2023 Estimated GFR (CKD-EPI) > 60.0 mL/Min [facility] Creatinine Clearance (Chem N/A [facility] Nucleated erythrocytes [Pres ence] in Blood by Automated countOrdered By: Raeann Ch on 07-20-2023 Nucleated RBC Auto Ql (Bld) 0.1 /100{WBC} 0-0.5 [facility] Platelet mean volume [Entiti c volume] in Blood by Automated countOrdered By: Raeann Ch on 07-20-2023 Platelet mean volume (Bld) [Entitic vol] 8.8 fL Normal 6.3-10.7 [facility] Comment on above: Performed By: #### L IPID, B12, FOL, T4F, TSH3, FSH, [id number], CMP, MG, FE and TIBC, SAKINA, CRP #### [facility] [address] [place] [address] Platelets [#/volume] in Bloo d by Automated countOrdered By: Raeann Ch on 07-20-2023 Platelets (Bld) [#/Vol] 344 10*3/uL Normal 150-450 [facility] Comment on above: Performed By: #### L IPID, B12, FOL, T4F, TSH3, FSH, [id number], CMP, MG, FE and TIBC, SAKINA, CRP #### [facility] [address] [place] [address] [place] Potassium [Moles/volume] in Serum or PlasmaOrdered By: Raeann Ch on 07-20-2023 Potassium [Moles/Vol] 4.2 mmol/L Normal 3.5-5.1 [facility] Comment on above: Performed By: #### L IPID, B12, FOL, T4F, TSH3, FSH, [id number], CMP, MG, FE and TIBC, SAKINA, CRP #### [facility] [address] [place] [address] [place] Progesteroneon 07-20-2023 Progesterone 13.5 ng/mL Normal . [facility] Comment on above: Result Comment: Foll icular phase 0.1 - 0.9 Luteal phase 1.8 - 23.9 Ovulation phase 0.1 - 12.0 First trimester 11.0 - 44.3 Second trimester 25.4 - 83.3 Third trimester 58.7 - 214.0 Postmenopausal 0.0 - 0.1 Performed at: - [facility] [id number] Developer Programmer Analyst: Alf Simpson PhD, Phone: [phone] Performed By: #### L IPID, B12, FOL, T4F, TSH3, FSH, [id number], CMP, MG, FE and TIBC, SAKINA, CRP #### [facility] [address] [place] [address] [place] Protein [Mass/volume] in Ser um or PlasmaOrdered By: Raeann Ch on 07-20-2023 Protein [Mass/Vol] 7.0 g/dL Normal 6.4-8.9 [facility] Comment on above: Performed By: #### L IPID, B12, FOL, T4F, TSH3, FSH, [id number], CMP, MG, FE and TIBC, SAKINA, CRP #### [facility] [address] Serum globulin measurement b y calculation (mass/volume)Ordered By: Raeann Ch on 07-20-2023 Globulin (S) [Mass/Vol] 2.5 g/dL Normal [facility] Comment on above: Performed By: #### L IPID, B12, FOL, T4F, TSH3, FSH, [id number], CMP, MG, FE and TIBC, SAKINA, CRP #### [facility] [address] Serum or plasma albumin/glob ulin mass ratioOrdered By: Raeann Ch on 07-20-2023 Albumin/Globulin [Mass ratio] 1.8 {ratio} Normal [facility] Comment on above: Performed By: #### L IPID, B12, FOL, T4F, TSH3, FSH, [id number], CMP, MG, FE and TIBC, SAKINA, CRP #### [facility] [address] Serum or plasma anion gap de terminationOrdered By: Raeann Ch on 07-20-2023 Anion gap [Moles/Vol] 11.4 mmol/L Normal 6.0-15.0 [facility] [place] Comment on above: Performed By: #### L IPID, B12, FOL, T4F, TSH3, FSH, [id number], CMP, MG, FE and TIBC, SAKINA, CRP #### [address] Serum or plasma estradiol (E 2) measurement (mass/volume)Ordered By: Raeann Ch on 07-20-2023 E2 [Mass/Vol] 126.0 pg/mL . [facility] Comment on above: Adult Female: Follic ular phase 12.5 - 166.0 Ovulation phase 85.8 - 498.0 Luteal phase 43.8 - 211.0 Postmenopausal <6.0 - 54.7 1st trimester 215.0 - >4300.0Roche ECLIA methodology Serum or plasma high density lipoprotein (HDL) cholesterol measurementOrdered By: Raeann Ch on 07-20-2023 Cholesterol in HDL [Mass/Vol] 45 mg/dL Normal 23-92 [facility] Comment on above: HDL CHOL ATP-III CLA SSIFICATION Cardiovascular RiskHDL > or equal to 60 mg/dL LOWHDL < 40 mg/dL HIGH Result Comment: HDL CHOL ATP-III CLASSIFICATION Cardiovascular Risk HDL > or equal to 60 mg/dL LOW HDL < 40 mg/dL HIGH Performed By: #### L IPID, B12, FOL, T4F, TSH3, FSH, [id number], CMP, MG, FE and TIBC, SAKINA, CRP #### [facility] [address] Serum or plasma insulin michael urement (units/volume)Ordered By: Raeann Ch on 07-20-2023 Insulin Qn 8.2 u[iU]/mL 2.6-24.9 [facility] Comment on above: Performed at: [facility] [id number] [place], [place] [id number] Director: Alf Simpson PhD, Phone: [phone] Serum or plasma lutropin mandeep surement (units/volume)Ordered By: Raeann Ch on 07-20-2023 Lutropin Qn 5.5 m[IU]/mL . [facility] Comment on above: Adult Female: Follic ular phase 2.4 - 12.6 Ovulation phase 14.0 - 95.6 Luteal phase 1.0 - 11.4 Postmenopausal 7.7 - 58.5 Serum or plasma progesterone measurement (mass/volume)Ordered By: Raeann Ch on 07-20-2023 Progesterone [Mass/Vol] 13.5 ng/mL . [facility] Comment on above: Follicular phase 0.1 - 0.9 Luteal phase 1.8 - 23.9 Ovulation phase 0.1 - 12.0 First trimester 11.0 - 44.3 Second trimester 25.4 - 83.3 Third trimester 58.7 - 214.0 Postmenopausal 0.0 - 0.1Performed at: [facility] [id number] [place], [place] [id number] Director: Alf Simpson PhD, Phone: [phone] Serum or plasma total choles terol/high density lipoprotein (HDL) cholesterol mass ratOrdered By: Raeann Ch on 07-20-2023 Cholesterol.total/Adriana sterol in HDL [Mass ratio] 3.3 {ratio} Normal <5.0 [facility] Comment on above: Performed By: #### L IPID, B12, FOL, T4F, TSH3, FSH, [id number], CMP, MG, FE and TIBC, SAKINA, CRP #### [facility] [address] [place] [address] [place] Sodium [Moles/volume] in Ser um or PlasmaOrdered By: Raeann Ch on 07-20-2023 Sodium [Moles/Vol] 140 mmol/L Normal 136-145 [facility] Comment on above: Performed By: #### L IPID, B12, FOL, T4F, TSH3, FSH, [id number], CMP, MG, FE and TIBC, SAKINA, CRP #### [facility] [address] Testosterone Free TotalOrder ed By: Raeann Ch on 07-20-2023 Testosterone [Mass/Vol] 25 ng/dL Normal 13-71 [facility] Comment on above: Performed By: #### L IPID, B12, FOL, T4F, TSH3, FSH, [id number], CMP, MG, FE and TIBC, SAKINA, CRP #### [facility] [address] [place] [address] [place] Testosterone Free Totalon Testosterone,Free 1.5 pg/mL Normal 0.0-4.2 [facility] Comment on above: Result Comment: Perf ormed at: - [facility] [id number] Developer Programmer Analyst: Alf Simpson PhD, Phone: [phone] Performed at: - [facility] [id number] Developer Programmer Analyst: Jayne Mann MD, Phone: [phone] Performed By: #### L IPID, B12, FOL, T4F, TSH3, FSH, [id number], CMP, MG, FE and TIBC, SAKINA, CRP #### [facility] [address] Thyrotropin [Units/volume] i n Serum or PlasmaOrdered By: Raeann Ch on 07-20-2023 TSH Qn 1.01 m[IU]/L Normal 0.45-5.33 [facility] Comment on above: Performed By: #### L IPID, B12, FOL, T4F, TSH3, FSH, [id number], CMP, MG, FE and TIBC, SAKINA, CRP #### [facility] [address] Thyroxine (T4) free [Mass/vo lume] in Serum or PlasmaOrdered By: Raeann Ch on 07-20-2023 Free T4 [Mass/Vol] 0.92 ng/dL Normal 0.61-1.12 [facility] Comment on above: Performed By: #### L IPID, B12, FOL, T4F, TSH3, FSH, [id number], CMP, MG, FE and TIBC, SAKINA, CRP #### [address] Transferrin [Mass/volume] in Serum or PlasmaOrdered By: Raeann Ch on 07-20-2023 Transferrin [Mass/Vol] 305 mg/dL Normal 203-362 [facility] [place] Comment on above: Performed By: #### L IPID, B12, FOL, T4F, TSH3, FSH, [id number], CMP, MG, FE and TIBC, SAKNIA, CRP #### [facility] [address] Triglyceride [Mass/volume] i n Serum or PlasmaOrdered By: Raeann Ch on 07-20-2023 Triglyceride [Mass/Vol] 85 mg/dL 0-[address] [facility] Comment on above: TRIG ATP III CLASSIF ICATIONTRIG less than 150 mg/dL NormalTRIG 150-199 mg/dL Borderline highTRIG 200-500 mg/dL High TRIG greater than 500 mg/dL Very highStandard traceable to the Center for Disease Conrtrol and Prevention (CDC) test method. Triiodothyronine (T3) Freeon 07-20-2023 Triiodothyronine (T3) Free 4.11 pg/mL High 2.50-3.90 [facility] Comment on above: Result Comment: PERF ORMED BY: [place] [address] PATHOLOGIST INSTRUCTOR DECORATING SADAF YOUNGBLOOD M.D. Performed By: #### L IPID, B12, FOL, T4F, TSH3, FSH, [id number], CMP, MG, FE and TIBC, SAKINA, CRP #### [facility] [address] Triiodothyronine (T3) Free [ Mass/volume] in Serum or PlasmaOrdered By: Raeann Torresrohith on 07-20-2023 Free T3 [Mass/Vol] 4.11 pg/mL 2.50-3.90 [facility] Urea nitrogen [Mass/volume] in Serum or PlasmaOrdered By: Raeann Warchol on 07-20-2023 Urea nitrogen [Mass/Vol] 8 mg/dL Normal 7-25 [facility] Comment on above: Performed By: #### L IPID, B12, FOL, T4F, TSH3, FSH, [id number], CMP, MG, FE and TIBC, SAKINA, CRP #### [facility] [address] [place] [address] Vitamin B12 ser/plasOrdered By: Raeann Brianchol on 07-20-2023 Cobalamin (Vitamin B12) [Mass/Vol] 384 pg/mL Normal 180-914 [facility] Comment on above: Performed By: #### L IPID, B12, FOL, T4F, TSH3, FSH, [id number], CMP, MG, FE and TIBC, SAKINA, CRP #### [facility] [address] [place] [id number] [place] Vitamin D 25 Hydroxy Totalon 07-20-2023 Vitamin D 25 Hydroxy Total 49.5 ng/mL Normal 30-100 [facility] Comment on above: Result Comment: NATALIE MIN D STATUS 25(OH)VITAMIN D RANGE (ng/mL) Deficient <20 Insufficient 20 to <30 Sufficient 30 to 100 Reference: Ambar MF,Manish NC, Donis MANDEL, et al. Evaluation,treatment, and prevention of vitamin D deficiency; an Endocrine Society clinical practice guideline. JCEM. 2010; 96(7):1911-30. PERFORMED BY: [facility] [address] [place] [address] PATHOLOGIST INSTRUCTOR DECORATING SADAF YOUNGBLOOD M.D. Performed By: #### L IPID, B12, FOL, T4F, TSH3, FSH, [id number], CMP, MG, FE and TIBC, SAKINA, CRP #### [facility] [address] Vitamin D+Metabolites [Mass/ volume] in Serum or PlasmaOrdered By: Raeann Ch on 07-20-2023 Vitamin D+Metabolites [Mass/Vol] 49.5 ng/mL 30-100 [facility] Comment on above: VITAMIN D STATUS [...] 05-27-2023 ALT [Catalytic activity/Vol] 10 U/L 7-52 [facility] Albumin [Mass/volume] in Ser um or Plasma by Bromocresol green (BCG) dye binding methoOrdered By: Tiarra Childs on 05-27-2023 Albumin BCG dye [Mass/Vol] 4.4 g/dL 3.5-5.7 [facility] Alkaline phosphatase [Enzyma tic activity/volume] in Serum or PlasmaOrdered By: Tiarra Childs on 05-27-2023 ALP [Catalytic activity/Vol] 53 U/L 34-104 [facility] Aspartate aminotransferase [ Enzymatic activity/volume] in Serum or PlasmaOrdered By: Tiarra Childs on 05-27-2023 AST [Catalytic activity/Vol] 20 U/L 13-39 [facility] Basophils Auto (Bld) [#/Vol] Ordered By: Tiarra Childs on 05-27-2023 Basophils (Bld) [#/Vol] 0.0 10*3/uL 0.0-0.2 [facility] Basophils/100 WBC Auto (Bld) Ordered By: Tiarra Childs on 05-27-2023 Basophils/100 WBC (Bld) 0.5 % . [facility] Bilirubin.total [Mass/volume ] in Serum or PlasmaOrdered By: Tiarra Childs on 05-27-2023 Bilirubin [Mass/Vol] 1.5 mg/dL 0.3-1.0 [facility] Comment on above: Samples from patient s who have taken Naproxen have shown spurious elevation in Total Bilirubin levels. A metabolite of Naproxen, O-desmethylnaproxen, has been shown to interfere with the Radhika method for measuring Total Bilirubin. Calcium [Mass/volume] in Ser um or PlasmaOrdered By: Tiarra Childs on 05-27-2023 Calcium [Mass/Vol] 10.0 mg/dL 8.6-10.3 [facility] Carbon dioxide, total [Moles /volume] in Serum or PlasmaOrdered By: Tiarra Childs on 05-27-2023 CO2 [Moles/Vol] 27.0 mmol/L 21.0-31.0 [facility] Chloride [Moles/volume] in S ulises or PlasmaOrdered By: Tiarra Childs on 05-27-2023 Chloride [Moles/Vol] 104 mmol/L 98-107 [facility] Choriogonadotropin.beta subu nit [Units/volume] in Serum or PlasmaOrdered By: Tiarra Childs on 05-27-2023 HCG.beta subunit Qn 400.13 m[IU]/mL [facility] Comment on above: Approximate Approxim ate hCG Gestational Age Range (mIU/ml) (weeks)0.2-1 5-50 1-2 50-500 2-3 100-5,000 3-4 500-10,000 4-5 1,000-50,000 5-6 10,000-100,000 6-8 15,000-200,000 8-12 10,000-100,000 Creatinine [Mass/volume] in Serum or PlasmaOrdered By: Tiarra Childs on 05-27-2023 Creatinine [Mass/Vol] 0.74 mg/dL 0.60-1.20 [facility] Eosinophils Auto (Bld) [#/Vo l]Ordered By: Tiarra Childs on 05-27-2023 Eosinophils (Bld) [#/Vol] 0.1 10*3/uL 0.0-0.45 [facility] Eosinophils/100 WBC Auto (Bl d)Ordered By: Tiarra Childs on 05-27-2023 Eosinophils/100 WBC (Bld) 1.5 % . [facility] Erythrocyte distribution wid th Auto (RBC) [Ratio]Ordered By: Tiarra Childs on 05-27-2023 Erythrocyte distribution width (RBC) [Ratio] 13.2 % 11.9-15.3 [facility] Ferritin [Mass/volume] in Se rum or PlasmaOrdered By: Tiarra Childs on 05-27-2023 Ferritin [Mass/Vol] 10.1 ng/mL 11.0-306.8 [facility] Folate [Mass/volume] in Seru m or PlasmaOrdered By: Tiarra Childs on 05-27-2023 Folate [Mass/Vol] 16.2 ng/mL >5.9 [facility] Comment on above: Folate reference ran ge: >5.9 ng/mlThe WHO technical consultation on folate and vitamin [id number] has determined that folate concentrations lessthan 4 ng/ml are considered deficient. Globulin Calc (S) [Mass/Vol] Ordered By: Tiarra Childs on 05-27-2023 Globulin (S) [Mass/Vol] 3.0 g/dL [facility] Glucose [Mass/volume] in Ser um or PlasmaOrdered By: Tiarra Childs on 05-27-2023 Glucose [Mass/Vol] 73 mg/dL 70-100 [facility] Comment on above: ADA recommended refe [...] from glycated hemoglobin (Bld) [Mass/Vol] 94 mg/dL [facility] Hematocrit Auto (Bld) [Volum e fraction]Ordered By: Tiarra Childs on 05-27-2023 Hematocrit (Bld) [Volume fraction] 37.5 % 34.0-46.4 [facility] Hemoglobin A1c percentageOrd ered By: Tiarra Childs on 05-27-2023 HbA1c (Bld) [Mass fraction] 4.9 % 4.3-5.6 [facility] Comment on above: Increased risk for d iabetes: 5.7 - 6.4diabetes: >6.4glycemic control for adults with diabetes: <7.0 Hemoglobin [Mass/volume] in BloodOrdered By: Tiarra Childs on 05-27-2023 Hemoglobin (Bld) [Mass/Vol] 13.1 g/dL 11.8-15.4 [facility] Iron [Mass/volume] in Serum or PlasmaOrdered By: Tiarra Childs on 05-27-2023 Iron [Mass/Vol] 94 ug/dL 50-212 [facility] Iron binding capacity [Mass/ volume] in Serum or PlasmaOrdered By: Tiarra Childs on 05-27-2023 Iron binding capacity [Mass/Vol] 514 ug/dL 255-450 [facility] Iron saturation [Mass Fracti on] in Serum or PlasmaOrdered By: Tiarra Childs on 05-27-2023 Iron saturation [Mass fraction] 18.3 % 20-50 [facility] Leukocytes [#/volume] correc paulie for nucleated erythrocytes in Blood by Automated counOrdered By: Tiarra Childs on 05-27-2023 WBC corrected for nucl RBC Auto (Bld) [#/Vol] 6.3 10*3/uL 3.8-11.6 [facility] Lymphocytes Auto (Bld) [#/Vo l]Ordered By: Tiarra Childs on 05-27-2023 Lymphocytes (Bld) [#/Vol] 1.8 10*3/uL 1.00-4.8 [facility] Lymphocytes/100 WBC Auto (Bl d)Ordered By: Tiarra Childs on 05-27-2023 Lymphocytes/100 WBC (Bld) 29.2 % . [facility] MCH Auto (RBC) [Entitic mass ]Ordered By: Tiarra Childs on 05-27-2023 MCH (RBC) [Entitic mass] 31.5 pg 24.7-34.3 [facility] MCHC Auto (RBC) [Mass/Vol]Or dered By: Tiarra Childs on 05-27-2023 MCHC (RBC) [Mass/Vol] 34.9 g/dL 32.0-35.0 [facility] MCV Auto (RBC) [Entitic vol] Ordered By: Tiarra Childs on 05-27-2023 MCV (RBC) [Entitic vol] 90.3 fL 80-100 [facility] Monocytes Auto (Bld) [#/Vol] Ordered By: Tiarra Childs on 05-27-2023 Monocytes (Bld) [#/Vol] 0.4 10*3/uL 0.0-0.8 [facility] Monocytes/100 WBC Auto (Bld) Ordered By: Tiarra Childs on 05-27-2023 Monocytes/100 WBC (Bld) 6.7 % . [facility] Neutrophils Auto (Bld) [#/Vo l]Ordered By: Tiarra Childs on 05-27-2023 Neutrophils (Bld) [#/Vol] 3.9 10*3/uL 1.8-7.7 [facility] Neutrophils/100 WBC Auto (Bl d)Ordered By: Tiarra Childs on 05-27-2023 Neutrophils/100 WBC (Bld) 62.1 % . [facility] No Panel InformationOrdered By: Tiarra Childs on 05-27-2023 Estimated GFR (CKD-EPI) > 60.0 mL/Min [facility] Creatinine Clearance (Chem N/A [facility] Nucleated erythrocytes [Pres ence] in Blood by Automated countOrdered By: Tiarra Childs on 05-27-2023 Nucleated RBC Auto Ql (Bld) 0.1 /100{WBC} 0-0.5 [facility] Platelet mean volume Auto (B ld) [Entitic vol]Ordered By: Tiarra Childs on 05-27-2023 Platelet mean volume (Bld) [Entitic vol] 8.6 fL 6.3-10.7 [facility] Platelets Auto (Bld) [#/Vol] Ordered By: Tiarra Childs on 05-27-2023 Platelets (Bld) [#/Vol] 350 10*3/uL 150-450 [facility] Potassium [Moles/volume] in Serum or PlasmaOrdered By: Tiarra Childs on 05-27-2023 Potassium [Moles/Vol] 4.1 mmol/L 3.5-5.1 [facility] Protein [Mass/volume] in Ser um or PlasmaOrdered By: Tiarra Childs on 05-27-2023 Protein [Mass/Vol] 7.4 g/dL 6.4-8.9 [facility] RBC Auto (Bld) [#/Vol]Ordere d By: Tiarra Childs on 05-27-2023 RBC (Bld) [#/Vol] 4.15 10*6/uL 3.60-5.00 [facility] Serum or plasma albumin/glob ulin mass ratioOrdered By: Tiarra Childs on 05-27-2023 Albumin/Globulin [Mass ratio] 1.5 {ratio} [facility] Serum or plasma anion gap de terminationOrdered By: Tiarra Childs on 05-27-2023 Anion gap [Moles/Vol] 10.1 mmol/L 6.0-15.0 [facility] Serum or plasma insulin michael urement (units/volume)Ordered By: Tiarra Childs on 05-27-2023 Insulin Qn 5.5 u[iU]/mL 2.6-24.9 [facility] Comment on above: Performed at: [address] [id number] Director: Alf Simpson PhD, Phone: [phone] Sodium [Moles/volume] in Ser um or PlasmaOrdered By: Tiarra Childs on 05-27-2023 Sodium [Moles/Vol] 137 mmol/L 136-145 [facility] Thyrotropin [Units/volume] i n Serum or PlasmaOrdered By: Tiarra Childs on 05-27-2023 TSH Qn 0.95 m[IU]/L 0.45-5.33 [facility] Thyroxine (T4) free [Mass/vo lume] in Serum or PlasmaOrdered By: Tiarra Childs on 05-27-2023 Free T4 [Mass/Vol] 0.80 ng/dL 0.61-1.12 [facility] Transferrin [Mass/volume] in Serum or PlasmaOrdered By: Tiarra Childs on 05-27-2023 Transferrin [Mass/Vol] 367 mg/dL 203-362 [facility] Urea nitrogen [Mass/volume] in Serum or PlasmaOrdered By: Tiarra Childs on 05-27-2023 Urea nitrogen [Mass/Vol] 9 mg/dL 7-25 [facility] Vitamin B12 ser/plasOrdered By: Tiarra Childs on 05-27-2023 Cobalamin (Vitamin B12) [Mass/Vol] 340 pg/mL 180-914 [facility] Vitamin D+Metabolites [Mass/ volume] in Serum or PlasmaOrdered By: Tiarra Childs on 05-27-2023 Vitamin D+Metabolites [Mass/Vol] 43.5 ng/mL 30-100 [facility] Comment on above: VITAMIN D STATUS 25( [place])VITAMIN D RANGE (ng/mL) Deficient <20 Insufficient 20 to <30Sufficient 30 to 100Reference: Ambar MF,Manish NC, Donis MANDEL, et al. Evaluation,treatment, and prevention of vitamin D deficiency; an Endocrine Society clinical practice guideline. JCEM. 2010; 96(7):1911-30. WBC Auto (Bld) [#/Vol]Ordere d By: Tiarra Childs on 05-27-2023 WBC (Bld) [#/Vol] 6.3 10*3/uL 3.8-11.6 [facility] COVID-19 Detected/Not Detect edOrdered By: Tiarra Childs on 12-09-2022 SARS-CoV-2 (COVID-19) RNA KYLAH+non-probe Ql (Nph) Not detected Not Detecte [facility] Comment on above: This is a duplicate RP2.1 COVID (PCR) result to be used for statistical tracking purpose only. Respiratory pathogens DNA an d RNA panel - Nasopharynx by KYLAH with non-probe detectionOrdered By: Tiarra Childs on 12-09-2022 Respiratory pathogens DNA and RNA panel KYLAH+non-probe (Nph) [facility] CBC AUTO DIFFon 12-04-2022 BASO # 0.0 103/ul Normal 0.0-0.1 [facility] Comment on above: Performed By: #### C BC #### [facility] [address] [place] [address] Dr. Angelica Smith Basophils/100 WBC (Bld) 0.7 % Normal 0.2-2.0 [facility] Comment on above: Performed By: #### C BC #### [facility] [address] [place] [address] Dr. Angelica Smith EO # 0.1 103/ul Normal 0.0-0.7 [facility] Comment on above: Performed By: #### C BC #### [facility] [address] [place] [address] Dr. Angelica Smith Eosinophils/100 WBC (Bld) 1.1 % Normal 0.9-7.0 [facility] Comment on above: Performed By: #### C BC #### [facility] [address] [place] [address] Dr. Angelica Smith Erythrocyte distribution width (RBC) [Ratio] 12.1 % Normal 11.0-15.0 [facility] Comment on above: Performed By: #### C BC #### [facility] [address] [place] [address] Dr. Angelica Smith Hematocrit (Bld) [Volume fraction] 39.3 % Normal 36.0-48.0 [facility] Comment on above: Performed By: #### C BC #### [facility] [address] [place] [address] Dr. Angelica Smith Hemoglobin (Bld) [Mass/Vol] 13.3 g/dL Normal 12.0-16.0 [facility] Comment on above: Performed By: #### C BC #### [facility] [address] [place] [address] Dr. Angelica Smith IG # 0.01 10e3/ul Normal 0.00-0.03 [facility] Comment on above: Performed By: #### C BC #### [facility] [address] [place] [address] Dr. Angelica Smith IG % 0.2 % Normal 0.0-0.5 [facility] Comment on above: Performed By: #### C BC #### [facility] [address] [place] [address] Dr. Angelica Smith LYMPH # 1.9 103/ul Normal 1.2-3.8 [facility] Comment on above: Performed By: #### C BC #### [facility] [address] [place] [address] Dr. Angelica Smith Lymphocytes/100 WBC (Bld) 31.4 % Normal 20.5-60.0 [facility] Comment on above: Performed By: #### C BC #### [facility] [address] [place] [address] Dr. Angelica Smith MANUAL DIFF REQ NO Normal [facility] Comment on above: Performed By: #### C BC #### [facility] [address] [place] [address] Dr. Angelica Smith MCH (RBC) [Entitic mass] 30.3 pg Normal 26.7-34.0 [facility] Comment on above: Performed By: #### C BC #### [facility] [address] [place] [address] Dr. Angelica Smith MCHC (RBC) [Mass/Vol] 33.8 g/dL Normal 29.9-35.2 [facility] Comment on above: Performed By: #### C BC #### [facility] [address] [place] [address] Dr. Angelica Smith MCV (RBC) [Entitic vol] 89.5 fL Normal 81.0-99.0 [facility] Comment on above: Performed By: #### C BC #### [facility] [address] [place] [address] Dr. Angelica Smith MONO # 0.5 103/ul Normal 0.3-0.8 [facility] Comment on above: Performed By: #### C BC #### [facility] [address] [place] [address] Dr. Angelica Smith Monocytes/100 WBC (Bld) 7.4 % Normal 1.7-12.0 [facility] Comment on above: Performed By: #### C BC #### [facility] [address] [place] [address] Dr. Angelica Smith NEUT # 3.6 103/ul Normal 1.4-6.5 [facility] Comment on above: Performed By: #### C BC #### [facility] [address] [place] [address] Dr. Angelica Smith Neutrophils/100 WBC (Bld) 59.2 % Normal 43.0-75.0 [facility] Comment on above: Performed By: #### C BC #### [facility] [address] [place] [address] Dr. Angelica Smith Platelet mean volume (Bld) [Entitic vol] 9.7 fL Normal 9.5-13.5 [facility] Comment on above: Performed By: #### C BC #### [facility] [address] [place] [address] Dr. Angelica Smith PLT 289 103/ul Normal 150-450 [facility] Comment on above: Performed By: #### C BC #### [facility] [address] [place] [address] Dr. Angelica Smith RBC 4.39 106/ul Normal 4.20-5.40 [facility] Comment on above: Performed By: #### C BC #### [facility] [address] [place] [address] Dr. Angelica Smith WBC 6.1 103/ul Normal 4.0-11.0 [facility] Comment on above: Performed By: #### C BC #### [facility] [address] [place] [address] Dr. Angelica Smith PREG QUANT HCGon 12-04-2022 HCG QUANT <1 Normal [facility] Comment on above: Performed By: #### P REGQNT #### [facility] [address] [address] [address] Angelica Smith HCG RANGE SEE BELOW Normal [facility] Comment on above: Result Comment: 5-50 0.2-1 WEEK 50-500 1-2 WEEKS 100-5,000 2-3 WEEKS 500-10,000 3-4 WEEKS 1,000-50,000 4-5 WEEKS 10,000-100,000 5-6 WEEKS 15,000-200,000 6-8 WEEKS 10,000-100,000 2-3 MONTHS Performed By: #### P REGQNT #### [facility] [address] [place] [address] Dr. Angelica Smith Albumin [Mass/volume] in Ser um or PlasmaOrdered By: Tiarra Childs on 10-29-2022 Albumin [Mass/Vol] 4.3 g/dL 3.2-5.5 [facility] Alternaria alternata IgE Ab [Units/volume] in SerumOrdered By: Tiarra Childs on 10-29-2022 A. alternata IgE Qn (S) <0.10 kU/L Class 0 [facility] Vincentian house dust mite IgE Ab [Units/volume] in SerumOrdered By: Tiarra Childs on 10-29-2022 Vincentian house dust mite IgE Qn (S) 0.10 kU/L Class 0/I [facility] Aspergillus fumigatus IgE Ab [Units/volume] in SerumOrdered By: Tiarra Childs on 10-29-2022 A. fumigatus IgE Qn (S) <0.10 kU/L Class 0 [facility] Shaffer's yeast IgE Ab [Units/ volume] in SerumOrdered By: Tiarra Childs on 10-29-2022 Shaffer's yeast IgE Qn (S) <0.10 kU/L Class 0 [facility] Comment on above: Performed at: [address] [id number] Director: Jayne Mann MD, Phone: [phone] Banana IgE Ab [Units/volume] in SerumOrdered By: Tiarra Childs on 10-29-2022 Banana IgE Qn (S) <0.10 kU/L Class 0 [facility] Barley IgE Ab [Units/volume] in SerumOrdered By: Tiarra Childs on 10-29-2022 Barley IgE Qn (S) 0.40 kU/L Class I [facility] Beef IgE Ab [Units/volume] i n SerumOrdered By: Tiarra Childs on 10-29-2022 Beef IgE Qn (S) <0.10 kU/L Class 0 [facility] Bermuda grass IgE Ab [Units/ volume] in SerumOrdered By: Tiarra Childs on 10-29-2022 Bermuda grass IgE Qn (S) <0.10 kU/L Class 0 [facility] Boxelder IgE Ab [Units/volum e] in SerumOrdered By: Tiarra Childs on 10-29-2022 Boxelder IgE Qn (S) <0.10 kU/L Class [address] [facility] Cheese cheddar type IgE Ab [ Units/volume] in SerumOrdered By: Tiarra Childs on 10-29-2022 Cheese cheddar type IgE Qn (S) <0.10 kU/L Class 0 [facility] Cladosporium herbarum IgE Ab [Units/volume] in SerumOrdered By: Tiarra Childs on 10-29-2022 C. herbarum IgE Qn (S) <0.10 kU/L Class 0 [facility] Cockroach IgE Ab [Units/volu me] in SerumOrdered By: Tiarra Childs on 10-29-2022 Cockroach IgE Qn (S) 0.44 kU/L Class I [facility] [place] IgE Ab [Units/volume] i n SerumOrdered By: Tiarra Childs on 10-29-2022 [place] IgE Qn (S) <0.10 kU/L Class 0 [facility] [place] IgE Ab [Units/vol ume] in SerumOrdered By: Tiarra Childs on 10-29-2022 [place] IgE Qn (S) <0.10 kU/L Class 0 [facility] Cow milk IgE Ab [Units/volum e] in SerumOrdered By: Tiarra Childs on 10-29-2022 Cow milk IgE Qn (S) <0.10 kU/L Class [address] [facility] Creatinine and Glomerular fi ltration rate.predicted panel (S/P/Bld)Ordered By: Tiarra Childs on 10-29-2022 Creatinine [Mass/Vol] 0.65 mg/dL 0.44-1.03 [facility] Dog dander IgE Ab [Units/vol ume] in SerumOrdered By: Tiarra Childs on 10-29-2022 Dog dander IgE Qn (S) 0.12 kU/L Class 0/I [facility] Estimated glomerular filtrat ion rate (GFR) non- AmericanOrdered By: Tiarra Childs on 10-29-2022 GFR/1.73 sq M.predicted among non-blacks MDRD (S/P/Bld) [Vol rate/Area] > 60 mL/Min [facility] house dust mite IgE Ab [Units/volume] in SerumOrdered By: Tiarra Childs on 10-29-2022 house dust mite IgE Qn (S) 0.26 kU/L Class 0/I [facility] Free testosterone measuremen t by LC-MS/MSOrdered By: Tiarra Childs on 10-29-2022 Testosterone Free [Mass/Vol] 3.7 pg/mL 0.0-4.2 [facility] Comment on above: Performed at: - [address] [id number] Director: Alf Simpson PhD, Phone: [phone] at: - [facility] [id number] Director: Jayne Mann MD, Phone: [phone] Gluten IgE Ab [Units/volume] in SerumOrdered By: Tiarra Childs on 10-29-2022 Gluten IgE Qn (S) <0.10 kU/L Class 0 [facility] Hepatitis B virus surface Ag [Presence] in Serum or Plasma by ImmunoassayOrdered By: Tiarra Childs on 10-29-2022 HBV surface Ag IA Ql Negative Negative [facility] Hepatitis C virus RNA [Units /volume] (viral load) in Serum or Plasma by KYLAH with probOrdered By: Tiarra Childs on 10-29-2022 HCV RNA KYLAH+probe Qn N/A [facility] Hepatitis C virus RNA [log u nits/volume] (viral load) in Serum or Plasma by KYLAH withOrdered By: Tiarra Childs on 10-29-2022 HCV RNA KYLAH+probe [Log units/Vol] N/A [facility] Human leukocyte antigen (HLA ) DQ2 detectionOrdered By: Tiarra Childs on 10-29-2022 HLA-DQ2 Ql (Bld/Tiss) Negative . [facility] Human leukocyte antigen (HLA ) DQ8 detectionOrdered By: Tiarra Childs on 10-29-2022 HLA-DQ8 Ql (Bld/Tiss) Negative . [facility] Comment on above: Final Results:DQA1*0 5:EETCV,-DQB1*03:EETKC,-Code Translation:EETCV 05:09/24:01/22:05/25:07/25:08/24:30/01::16:17/:20:10/02:25::28:29Q/05:30:32:34/05:35 /05:37/05:3905:4205:4305:4405:45/05:46 05:4805:50/05:5105:53/05:58/05:59/05:60 /05:62/05:64EETKC 03:01:10:16:06/12:08/12:22:24 :27:28:29:3503:36/03:42/03:44 /03:46/03:47/03:48/03:49/03:50/:51:52 /:53/03:54/03:55/03:56/03:57/03:58/03:59 /03:60/03:69/03:73/03:75/03:76/03:77/03:78 /03:82/03:83/03:84N/03:92/03:93/03:94 /03:101/03:102/03:103/03:108/03:109/03:114 /03:115/03:116/03:118N/03:119/03:120 /03:121/03:122/03:127/03:128/03:129/03:130 /03:131/03:133/03:134/03:135/03:139/03:140 /03:142/03:143/03:144/03:147/03:148/03:151 /03:152/03:154/03:157/03:158/03:159/03:160 /03:162/03:163/03:164/03:165/03:166/03:167 /03:169/03:170/03:171/03:173/03:182/03:183 /03:186/03:188/03:191/03:192/03:193/03:196 /03:197Q/03:198/03:201/03:202/03:206 /03:207/03:208/03:216/03:218/03:219/03:231 /03:232/03:235/03:236/03:241/03:242/03:243 /03:246/03:252/03:253/03:254/03:255/03:257 /03:260/03:264/03:266/03:267/03:268/03:271 /03:275/03:276N/03:281/03:284/03:285 /03:288/03:290/03:291/03:292/03:293/03:294 /03:297/03:302/03:303N/03:305/03:306 /03:307/03:309/03:311/03:312/03:314/03:317 /03:326/03:328/03:329/03:330/03:331 /03:338N/03:340N/03:341/03:342/03:347 /03:350/03:353/03:354N/03:358N/03:361 /03:366/03:370/03:372/03:373/03:377/03:378 /03:380/03:385N/03:387/03:389/03:390 /03:391/03:394/03:396/03:399N/03:400N /03:404/03:407N/03:408/03:417/03:418 /03:419/03:420/03:421/03:423/03:424/03:425 /03:426/03:427N/03:428/03:430/03:431 /03:432/03:434/03:435/03:436/03:438/03:439 /03:448/03:449/03:451/03:454/03:455/03:458 /03:460/03:465/03:467/03:468/03:469/03:470 /03:472/03:473N/03:475/03:476/03:480Q /03:482/03:483/03:486/03:488N/03:491/03:492The patient is positive for DQA1*05, one half of the HF5bookaiuvwpg. The Celiac Disease risk from the HLA DQA/DQBgenotype is approximately 1:1842 (0.05%). This is lessthan the 1% risk in the general population.Allele interpretation for all loci based on IMGT/HLAdatabase version 3.49.0[facility] CLIA ID Number [id number] than 95% of celiac patients are positive for eitherDQ2 or DQ8 (Kirt and Neela, (1993) [id number]). However these antigens may also be present inpatients who do not have Celiac disease. IgE [Units/volume] in Serum or PlasmaOrdered By: Tiarra Childs on 10-29-2022 IgE Qn 5 [IU]/mL 6-495 [facility] - Chemistry and C hemistry - challengeOrdered By: Tiarra Childs on 10-29-2022 Testosterone [Mass/Vol] 41 ng/dL 13-71 [facility] [place] Jun[place] IgE Ab [Uni ts/volume] in SerumOrdered By: Tiarra Childs on 10-29-2022 [place] IgE Qn (S) 0.19 kU/L Class 0/I [facility] Mouse urine proteins IgE Ab [Units/volume] in SerumOrdered By: Tiarra Childs on 10-29-2022 Mouse urine proteins IgE Qn (S) <0.10 kU/L Class 0 [facility] No Panel InformationOrdered By: Tiarra Childs on 10-29-2022 Allergen Note See comment . [facility] Comment on above: Levels of Specific I gE Class Description of Class ----- < 0.10 0 Negative 0.10 - 0.31 0/I Equivocal/Low 0.32 - 0.55 I Low 0.56 - 1.40 II Moderate 1.41 - 3.90 III High 3.91 - 19.00 IV Very High 19.01 - 100.00 V Very High >100.00 Very High C-Peptide 1.7 ng/mL 1.1-4.4 [facility] Comment on above: C-Peptide reference interval is for fasting patients.Performed at: [facility] [id number] Director: Alf Simpson PhD, Phone: [phone] Celiac Gene Interpretation See comment . [facility] Comment on above: References:1. Fidel CROOKS and Krsytin Lock. Celiac Disease. N Eng J Med 2007; 357:1223-8712.2. Yeni F, Dottie B, Bri M et [...] Hepat 3:843-851.5. Yamile CL, Andrew DO, Fidel PHR, et al. Celiac Disease. In: Lori RA, Sang TC, Nigel CR, Je K, editors. IPTEGO), [facility], [place], March 22, 2008:-. http://www.[employer].nlm.nih.gov/Marina Biotechdayaf/br.fcgi?book=genepart=ce lia PMID [id number] (PubMed)6. Luis Lim. Emerging concepts in celiac disease. Curr Opin Pediatr 2004;16:552-559.Performed at: - [facility] [id number] [place], [place] [id number] Director: Dajuan Dickinson PhD, Phone: [phone] Dehydroepiandrosterone Sulfate 368.0 ug/dL 110.0-431. 7 [facility] Estimated GFR () > 60 mL/Min [facility] Comment on above: GFR estimated refere nce range: According to KDOQI guidelines, <60 ml/min/1.73m2 is sufficient to diagnose a patient with chronic kidney disease. Hepatitis A IgM Antibody Negative Negative [facility] Hepatitis B Core IgM Antibody Negative Negative [facility] Hepatitis C Interpretation See comment . [facility] Comment on above: NegativeNot infected with HCV, unless recent infection issuspected or other evidence exists to indicate HCVinfection.Performed at: - [facility] [address] [id number] Director: Alf Simpson PhD, Phone: [phone] Hepatitis C RNA Quantitative N/A [facility] HLA Genotype Interpretation See comment . [facility] Comment on above: This test was perfor med using Polymerase ChainReaction/(PCR)Sequence Specific Oligonucleotide Probes(SSOP) (Luminex) technique. Sequence Based Typing (SBT)and/or Sequence Specific Primers (SSP) may be used assupplemental methods when necessary. Please contact HLACustomer Service at if you have anyquestions.Director of HLA LaboratoryDr Dajuan Dickinson, PhD Pharmacy Creatinine Clearance (Chem N/A [facility] Oat IgE Ab [Units/volume] in SerumOrdered By: Tiarra Childs on 10-29-2022 Oat IgE Qn (S) 0.32 kU/L Class I [facility] Ashley IgE Ab [Units/volume] in SerumOrdered By: Tiarra Childs on 10-29-2022 Ashley IgE Qn (S) <0.10 kU/L Class 0 [facility] Peanut IgE Ab [Units/volume] in SerumOrdered By: Tiarra Childs on 10-29-2022 Peanut IgE Qn (S) <0.10 kU/L Class 0 [facility] Pecan or [place] Tree IgE Ab [Units/volume] in SerumOrdered By: Tiarra Childs on 10-29-2022 Pecan or [place] Tree IgE Qn (S) <0.10 kU/L Class 0 [facility] Phosphate [Mass/volume] in S ulises or PlasmaOrdered By: Tiarra Childs on 10-29-2022 Phosphate [Mass/Vol] 4.2 mg/dL 2.5-4.6 [facility] Pork IgE Ab [Units/volume] i n SerumOrdered By: Tiarra Childs on 10-29-2022 Pork IgE Qn (S) <0.10 kU/L Class 0 [facility] Prolactin [Mass/volume] in S ulises or PlasmaOrdered By: Tiarra Childs on 10-29-2022 Prolactin [Mass/Vol] 6.27 ng/mL 3.34-26.72 [facility] Rice IgE Ab [Units/volume] i n SerumOrdered By: Tiarra Childs on 10-29-2022 Rice IgE Qn (S) <0.10 kU/L Class 0 [facility] [place] IgE Ab [Units/volume] in SerumOrdered By: Tiarra Childs on 10-29-2022 [place] IgE Qn (S) 0.31 kU/L Class 0/I [facility] Saltwort IgE Ab [Units/volum e] in SerumOrdered By: Tiarra Childs on 10-29-2022 Saltwort IgE Qn (S) <0.10 kU/L Class [address] [facility] Serum Vincentian sycamore IgE antibody assay (units/volume)Ordered By: Tiarra Childs on 10-29-2022 Vincentian [place] IgE Qn (S) 0.11 kU/L Class 0/I [facility] Serum Penicillium chrysogenu m specific IgE antibody assayOrdered By: Tiarra Childs on 10-29-2022 P. notatum IgE Qn (S) <0.10 kU/L Class 0 [facility] Serum androstenedione measur ement by LC-MS/MS (mass/volume)Ordered By: Tiarra Childs on 10-29-2022 Androstenedione [Mass/Vol] 135 ng/dL 41-262 [facility] Comment on above: This test was develo ped and its performance characteristicsdetermined by 1[employer]. It has not been cleared orapproved by the Food and Drug Administration.Performed at: [facility] [id number] Director: Jayne Mann MD, Phone: [phone] Serum cat dander IgG antibod y assay (units/volume)Ordered By: Tiarra Childs on 10-29-2022 Cat dander IgG Qn (S) <0.10 kU/L Class 0 [facility] Serum chicken droppings IgE antibody assay (units/volume)Ordered By: Tiarra Childs on 10-29-2022 Chicken droppings IgE Qn (S) <0.10 kU/L Class 0 [facility] Serum or plasma 17-hydroxypr ogesterone measurement (mass/volume)Ordered By: Tiarra Childs on 10-29-2022 17-Hydroxyprogesterone [Mass/Vol] 28 ng/dL . [facility] Comment on above: Adult Female Follicu lar 15 - 70 Luteal 35 - 290This test was developed and its performance characteristicsdetermined by 1[employer] All. It has not been cleared orapproved by the Food and Drug Administration.Performed at: [facility] [id number] [place], [place] [id number] Director: Jayne Mann MD, Phone: [phone] Serum or plasma anion gap de terminationOrdered By: Tiarra Childs on 10-29-2022 Anion gap [Moles/Vol] 9.2 mmol/L 6.0-15.0 [facility] Serum or plasma calcium michael urement (mass/volume)Ordered By: Tiarra Childs on 10-29-2022 Calcium [Mass/Vol] 9.4 mg/dL 8.2-10.2 [facility] Serum or plasma chloride mandeep surement (moles/volume)Ordered By: Tiarra Childs on 10-29-2022 Chloride [Moles/Vol] 105 mmol/L 95-114 [facility] Serum or plasma follitropin measurement (units/volume)Ordered By: Tiarra Childs on 10-29-2022 Follitropin Qn 5.1 m[IU]/mL [facility] Comment on above: FEMALE NORMALS (FLOWER ENOPAUSE) MID-FOLLICULAR PHASE: 3.9-8.8 mIU/mL MID-CYCLE PEAK: 4.5-22.5 mIU/mL MID-LUTEAL PHASE: 1.8-5.1 mIU/mLFEMALE NORMALS (POSTMENOPAUSE): 16.7-113.6 mIU/mLMALE NORMALS: 1.3-19.3 mIU/mL Serum or plasma glucose michael urement (mass/volume)Ordered By: Tiarra Childs on 10-29-2022 Glucose [Mass/Vol] 83 mg/dL 70-100 [facility] Comment on above: ADA recommended refe [...] IA [Rel units/Vol] <0.1 s/co ratio 0.0-0.9 [facility] Serum or plasma insulin michael urement (units/volume)Ordered By: Tiarra Childs on 10-29-2022 Insulin Qn 6.1 u[iU]/mL 2.6-24.9 [facility] Comment on above: Performed at: - [facility] [address] [id number] Director: Alf Simpson PhD, Phone: [phone] Serum or plasma lutropin mandeep surement (units/volume)Ordered By: Tiarra Childs on 10-29-2022 Lutropin Qn 7.8 m[IU]/mL . [facility] Comment on above: Adult Female: Follic ular phase 2.4 - 12.6 Ovulation phase 14.0 - 95.6 Luteal phase 1.0 - 11.4 Postmenopausal 7.7 - 58.5Performed at: [facility] [address] [id number] Director: Alf Simpson PhD, Phone: [phone] Serum or plasma potassium me asurement (moles/volume)Ordered By: Tiarra Childs on 10-29-2022 Potassium [Moles/Vol] 3.8 mmol/L 3.5-5.1 [facility] Serum or plasma sodium measu rement (moles/volume)Ordered By: Tiarra Childs on 10-29-2022 Sodium [Moles/Vol] 137 mmol/L 136-146 [facility] Serum or plasma total carbon dioxide measurement (moles/volume)Ordered By: Tiarra Childs on 10-29-2022 CO2 [Moles/Vol] 26.6 mmol/L 22.0-30.0 [facility] Serum or plasma urea nitroge n measurement (mass/volume)Ordered By: Tiarra Childs on 10-29-2022 Urea nitrogen [Mass/Vol] 8 mg/dL 9-23 [facility] Serum rough pigweed IgE anti body assay (units/volume)Ordered By: Tiarra Childs on 10-29-2022 Rough Pigweed IgE Qn (S) <0.10 kU/L Class 0 [facility] Serum short ragweed specific IgE antibody assayOrdered By: Tiarra Childs on 10-29-2022 Common Ragweed IgE Qn (S) <0.10 kU/L Class 0 [facility] Serum white elm IgG antibody assay (units/volume)Ordered By: Tiarra Childs on 10-29-2022 White Elm IgG Qn (S) <0.10 kU/L Class 0 [facility] Serum white potato specific IgE antibody assayOrdered By: Tiarra Childs on 10-29-2022 Potato IgE Qn (S) <0.10 kU/L Class 0 [facility] Sheep [place] IgE Ab [Units/v olume] in SerumOrdered By: Tiarra Childs on 10-29-2022 Sheep [place] IgE Qn (S) <0.10 kU/L Class 0 [facility] Silver Birch IgE Ab [Units/v olume] in SerumOrdered By: Tiarra Childs on 10-29-2022 Silver Birch IgE Qn (S) 0.15 kU/L Class 0/I [facility] Soybean specific IgE antibod y assayOrdered By: Tiarra Childs on 10-29-2022 Soybean IgE Qn (S) <0.10 kU/L Class 0 [facility] [place] IgE Ab [Units/volume ] in SerumOrdered By: Tiarra Childs on 10-29-2022 [place] IgE Qn (S) <0.10 kU/L Class 0 [facility] Tomato IgE Ab [Units/volume] in SerumOrdered By: Tiarra Childs on 10-29-2022 Tomato IgE Qn (S) <0.10 kU/L Class 0 [facility] [place] IgE Ab [Units/volume] in SerumOrdered By: Tiarra Childs on 10-29-2022 [place] IgE Qn (S) 0.14 kU/L Class 0/I [facility] Wheat IgE Ab [Units/volume] in SerumOrdered By: Tiarra Childs on 10-29-2022 Wheat IgE Qn (S) <0.10 kU/L Class 0 [facility] White Marquez IgE Ab [Units/volu me] in SerumOrdered By: Tiarra Childs on 10-29-2022 White Mar[place] IgE Qn (S) <0.10 kU/L Class 0 [facility] [place] IgE Ab [Units/volu me] in SerumOrdered By: Tiarra Childs on 10-29-2022 [place] IgE Qn (S) 0.27 kU/L Class 0/I [facility] White mulberry IgE Ab [Units /volume] in SerumOrdered By: Tiarra Childs on 10-29-2022 White mulberry IgE Qn (S) <0.10 kU/L Class 0 [facility] Creatinine [Mass/volume] in UrineOrdered By: Tiarra Childs on 10-20-2022 Creatinine (U) [Mass/Vol] 96.6 mg/dL [facility] Comment on above: No reference range e stablished Urine microalbumin measureme nt with detection limit of 20 mg/L or less (mass/volume)Ordered By: Tiarra Childs on 10-20-2022 Albumin DL <= 20 mg/L (U) [Mass/Vol] 24.1 mg/dL 0.0-1.8 [facility] Urine microalbumin/creatinin e mass ratioOrdered By: Tiarra Childs on 10-20-2022 Albumin/Creatinine DL <= 20 mg/L (U) [Mass ratio] 249.0 mg/g 0.0-30.0 [facility] Comment on above: 30-300 mg/g indicate s an increased risk for diabetic nephropathy. Greater than 300 mg/g is consistent with clinical nephropathy. (Am. J. Kidney Disease 1995, 25:107) Albumin [Mass/volume] in Ser um or PlasmaOrdered By: Tiarra Childs on 10-09-2022 Albumin [Mass/Vol] 4.1 g/dL 3.2-5.5 [facility] Basophils Auto (Bld) [#/Vol] Ordered By: Tiarra Childs on 10-09-2022 Basophils (Bld) [#/Vol] 0.0 10*3/uL 0.0-0.2 [facility] Basophils/100 WBC Auto (Bld) Ordered By: Tiarra Childs on 10-09-2022 Basophils/100 WBC (Bld) 0.6 % . [facility] C reactive protein [Mass/vol ume] in Serum or PlasmaOrdered By: Tiarra Childs on 10-09-2022 CRP [Mass/Vol] < 0.5 mg/dL 0.0-1.0 [facility] [address] biopsyOrdered By: Trish Childs on 10-09-2022 Transferrin [Mass/Vol] 262 mg/dL 180-380 [facility] Creatinine [Mass/volume] in UrineOrdered By: Tiarra Childs on 10-09-2022 Creatinine (U) [Mass/Vol] 123.2 mg/dL [facility] Comment on above: No reference range e stablished Creatinine and Glomerular fi ltration rate.predicted panel (S/P/Bld)Ordered By: Tiarra Childs on 10-09-2022 Creatinine [Mass/Vol] 0.67 mg/dL 0.44-1.03 [facility] Eosinophils Auto (Bld) [#/Vo l]Ordered By: Tiarra Childs on 10-09-2022 Eosinophils (Bld) [#/Vol] 0.1 10*3/uL 0.0-0.45 [facility] Eosinophils/100 WBC Auto (Bl d)Ordered By: Tiarra Childs on 10-09-2022 Eosinophils/100 WBC (Bld) 0.9 % . [facility] Erythrocyte distribution wid th Auto (RBC) [Ratio]Ordered By: Tiarra Childs on 10-09-2022 Erythrocyte distribution width (RBC) [Ratio] 13.1 % 11.9-15.3 [facility] Erythrocyte sedimentation ra te by Photometric methodOrdered By: Tiarra Childs on 10-09-2022 ESR Photometric method (Bld) [Velocity] 5 mm/hr 0-19 [facility] Estimated glomerular filtrat ion rate (GFR) non- AmericanOrdered By: Tiarra Childs on 10-09-2022 GFR/1.73 sq M.predicted among non-blacks MDRD (S/P/Bld) [Vol rate/Area] > 60 mL/Min [facility] Ferritin [Mass/volume] in Se rum or PlasmaOrdered By: Tiarra Childs on 10-09-2022 Ferritin [Mass/Vol] 12.7 ng/mL 11-306.8 [facility] Folate [Mass/volume] in Seru m or PlasmaOrdered By: Tiarra Childs on 10-09-2022 Folate [Mass/Vol] 8.1 ng/mL >5.9 [facility] Comment on above: Folate reference ran ge: >5.9 ng/mlThe WHO technical consultation on folate and vitamin [id number] has determined that folate concentrations lessthan 4 ng/ml are considered deficient. Globulin Calc (S) [Mass/Vol] Ordered By: Tiarra Childs on 10-09-2022 Globulin (S) [Mass/Vol] 2.3 g/dL [facility] Hematocrit Auto (Bld) [Volum e fraction]Ordered By: Tiarra Childs on 10-09-2022 Hematocrit (Bld) [Volume fraction] 41.6 % 34.0-46.4 [facility] Hemoglobin [Mass/volume] in BloodOrdered By: Tiarra Childs on 10-09-2022 Hemoglobin (Bld) [Mass/Vol] 13.8 g/dL 11.8-15.4 [facility] Iron [Mass/volume] in Serum or PlasmaOrdered By: Tiarra Childs on 10-09-2022 Iron [Mass/Vol] 69 ug/dL 40-150 [facility] Iron binding capacity [Mass/ volume] in Serum or PlasmaOrdered By: Tiarra Childs on 10-09-2022 Iron binding capacity [Mass/Vol] 367 ug/dL 255-450 [facility] Iron saturation [Mass Fracti on] in Serum or PlasmaOrdered By: Tiarra Childs on 10-09-2022 Iron saturation [Mass fraction] 18.8 % 20-50 [facility] Laboratory - Chemistry and C hemistry - challengeOrdered By: Tiarra Childs on 10-09-2022 Cobalamin (Vitamin B12) [Mass/Vol] 394 pg/mL 180-914 [facility] Lipase [Catalytic activity/Vol] 29.0 U/L 22-51 [facility] Leukocytes [#/volume] correc paulie for nucleated erythrocytes in Blood by Automated counOrdered By: Tiarra Childs on 10-09-2022 WBC corrected for nucl RBC Auto (Bld) [#/Vol] 6.3 10*3/uL 3.8-11.6 [facility] Lymphocytes Auto (Bld) [#/Vo l]Ordered By: Tiarra Childs on 10-09-2022 Lymphocytes (Bld) [#/Vol] 1.5 10*3/uL 1.00-4.8 [facility] Lymphocytes/100 WBC Auto (Bl d)Ordered By: Tiarra Childs on 10-09-2022 Lymphocytes/100 WBC (Bld) 24.1 % . [facility] MCH Auto (RBC) [Entitic mass ]Ordered By: Tiarra Childs on 10-09-2022 MCH (RBC) [Entitic mass] 29.8 pg 24.7-34.3 [facility] MCHC Auto (RBC) [Mass/Vol]Or dered By: Tiarra Childs on 10-09-2022 MCHC (RBC) [Mass/Vol] 33.3 g/dL 32.0-35.0 [facility] MCV Auto (RBC) [Entitic vol] Ordered By: Tiarra Childs on 10-09-2022 MCV (RBC) [Entitic vol] 89.7 fL 80-100 [facility] Monocytes Auto (Bld) [#/Vol] Ordered By: Tiarra Childs on 10-09-2022 Monocytes (Bld) [#/Vol] 0.3 10*3/uL 0.0-0.8 [facility] Monocytes/100 WBC Auto (Bld) Ordered By: Tiarra Childs on 10-09-2022 Monocytes/100 WBC (Bld) 5.2 % . [facility] Neutrophils Auto (Bld) [#/Vo l]Ordered By: Tiarra Childs on 10-09-2022 Neutrophils (Bld) [#/Vol] 4.3 10*3/uL 1.8-7.7 [facility] Neutrophils/100 WBC Auto (Bl d)Ordered By: Tiarra Childs on 10-09-2022 Neutrophils/100 WBC (Bld) 69.2 % . [facility] No Panel InformationOrdered By: Tiarra Childs on 10-09-2022 25-Hydroxy Vitamin D Total 31.2 ng/mL 30-100 [facility] Comment on above: VITAMIN D STATUS 25( [place])VITAMIN D RANGE (ng/mL) Deficient <20 Insufficient 20 to <30Sufficient 30 to 100Reference: Ambar MF,Manish MARTINEZ, Donis MANDEL, et al. Evaluation,treatment, and prevention of vitamin D deficiency; an Endocrine Society clinical practice guideline. JCEM. 2010; 96(7):1911-30. Anti-Nuclear Antibody Comment 2 See comment . [facility] Comment on above: For more information about Hep-2 cell patterns use[employer], the official website for the InternationalConsensus on Antinuclear Antibody (BRAVO) Patterns (ICAP). -----A positive BRAVO result may occur in healthy individuals (lowtiter) or be associated with a variety of diseases. 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, SCL-70, SLE,MCTD,PSS (diffuse form), SS-A/SS-B Sjogrens Nucleolar SCL-70, PM-1/SCL High titers Scleroderma, PM/DM Centromere Centromere PSS (limited form) w/Crest syndrome variable Nuclear Dot [id number] Primary Biliary Cirrhosis Nuclear GP210, Primary Biliary CirrhosisMembrane phil A,B,C Performed at: [facility] [address] [id number] Director: Alf Simpson PhD, Phone: [phone] C-Peptide 3.7 ng/mL 1.1-4.4 [facility] Comment on above: C-Peptide reference interval is for fasting patients.Performed at: [facility] [address] [id number] Director: Alf Simpson PhD, Phone: [phone] Estimated GFR () > 60 mL/Min [facility] Comment on above: GFR estimated refere nce range: According to KDOQI guidelines, <60 ml/min/1.73m2 is sufficient to diagnose a patient with chronic kidney disease. Pharmacy Creatinine Clearance (Chem N/A [facility] Nucleated erythrocytes [Pres ence] in Blood by Automated countOrdered By: Tiarra Childs on 10-09-2022 Nucleated RBC Auto Ql (Bld) 0.1 /100{WBC} 0-0.5 [facility] Platelet mean volume Auto (B ld) [Entitic vol]Ordered By: Tiarra Childs on 10-09-2022 Platelet mean volume (Bld) [Entitic vol] 8.4 fL 6.3-10.7 [facility] Platelets Auto (Bld) [#/Vol] Ordered By: Tiarra Childs on 10-09-2022 Platelets (Bld) [#/Vol] 303 10*3/uL 150-450 [facility] Protein [Mass/volume] in Ser um or PlasmaOrdered By: Tiarra Childs on 10-09-2022 Protein [Mass/Vol] 6.4 g/dL 6.1-7.9 [facility] RBC Auto (Bld) [#/Vol]Ordere d By: Tiarra Childs on 10-09-2022 RBC (Bld) [#/Vol] 4.64 10*6/uL 3.60-5.00 [facility] Serum nuclear antibody titer Ordered By: Tiarra Childs on 10-09-2022 Nuclear Ab (S) [Titer] Positive . [facility] Comment on above: Negative <1:80 Borde rline 1:80 Positive >1:80 Serum or plasma alanine perry otransferase measurement without P-5'-P (enzymatic activiOrdered By: Tiarra Childs on 10-09-2022 ALT No additional P-5'-P [Catalytic activity/Vol] 12 U/L 10-60 [facility] Serum or plasma albumin/glob ulin mass ratioOrdered By: Tiarra Childs on 10-09-2022 Albumin/Globulin [Mass ratio] 1.8 {ratio} [facility] Serum or plasma alkaline blair sphatase measurement (enzymatic activity/volume)Ordered By: Tiarra Childs on 10-09-2022 ALP [Catalytic activity/Vol] 54 U/L 32-92 [facility] Serum or plasma amylase michael urement (enzymatic activity/volume)Ordered By: Tiarra Childs on 10-09-2022 Amylase [Catalytic activity/Vol] 63 U/L 28-100 [facility] Serum or plasma anion gap de terminationOrdered By: Tiarra Childs on 10-09-2022 Anion gap [Moles/Vol] 12.1 mmol/L 6.0-15.0 [facility] Serum or plasma aspartate am inotransferase measurement (enzymatic activity/volume)Ordered By: Tiarra Childs on 10-09-2022 AST [Catalytic activity/Vol] 20 U/L 10-42 [facility] Serum or plasma calcium michael urement (mass/volume)Ordered By: Tiarra Childs on 10-09-2022 Calcium [Mass/Vol] 9.6 mg/dL 8.2-10.2 [facility] Serum or plasma chloride mandeep surement (moles/volume)Ordered By: Tiarra Childs on 10-09-2022 Chloride [Moles/Vol] 102 mmol/L 95-114 [facility] Serum or plasma glucose michael urement (mass/volume)Ordered By: Tiarra Childs on 10-09-2022 Glucose [Mass/Vol] 66 mg/dL 70-100 [facility] Comment on above: ADA recommended refe rence rangeRandom Glucose Reference Range is dependent on time and content of last meal. Glucose of more than 200 mg/dL in a nonstressed, ambulatory subject supports the diagnosis of Diabetes Mellitus. Serum or plasma potassium me asurement (moles/volume)Ordered By: Tiarra Childs on 10-09-2022 Potassium [Moles/Vol] 3.9 mmol/L 3.5-5.1 [facility] Serum or plasma sodium measu rement (moles/volume)Ordered By: Tiarra Childs on 10-09-2022 Sodium [Moles/Vol] 138 mmol/L 136-146 [facility] Serum or plasma total biliru bin measurement (mass/volume)Ordered By: Tiarra Childs on 10-09-2022 Bilirubin [Mass/Vol] 1.1 mg/dL 0.3-1.2 [facility] Serum or plasma total carbon dioxide measurement (moles/volume)Ordered By: Tiarra Childs on 10-09-2022 CO2 [Moles/Vol] 27.8 mmol/L 22.0-30.0 [facility] Serum or plasma urea nitroge n measurement (mass/volume)Ordered By: Tiarra Childs on 10-09-2022 Urea nitrogen [Mass/Vol] 9 mg/dL 9 [facility] Serum speckled pattern antin uclear antibody (BRAVO) titerOrdered By: Tiarra Childs on 10-09-2022 Speckled nuclear Ab pattern (S) [Titer] 1:80 . [facility] Comment on above: ICAP nomenclature: A C-2,4,5,29 TSH DL <= 0.005 mIU/L QnOrde red By: Tiarra Childs on 10-09-2022 TSH Qn 0.90 m[IU]/L 0.45-5.33 [facility] Thyroxine (T4) free [Mass/vo lume] in Serum or PlasmaOrdered By: Tiarra Childs on 10-09-2022 Free T4 [Mass/Vol] 0.76 ng/dL 0.61-1.12 [facility] Triiodothyronine (T3) Free [ Mass/volume] in Serum or PlasmaOrdered By: Tiarra Childs on 10-09-2022 Free T3 [Mass/Vol] 3.99 pg/mL 2.50-3.90 [facility] Urine microalbumin measureme nt with detection limit of 20 mg/L or less (mass/volume)Ordered By: Tiarra Childs on 10-09-2022 Albumin DL <= 20 mg/L (U) [Mass/Vol] 4.5 mg/dL 0.0-1.8 [facility] Urine microalbumin/creatinin e mass ratioOrdered By: Tiarra Childs on 10-09-2022 Albumin/Creatinine DL <= 20 mg/L (U) [Mass ratio] 36.0 mg/g 0.0-30.0 [facility] Comment on above: 30-300 mg/g indicate s an increased risk for diabetic nephropathy. Greater than 300 mg/g is consistent with clinical nephropathy. (Am. J. Kidney Disease 1995, 25:107) WBC Auto (Bld) [#/Vol]Ordere d By: Tiarra Childs on 10-09-2022 WBC (Bld) [#/Vol] 6.3 10*3/uL 3.8-11.6 [facility] CBC AUTO DIFFon 09-28-2022 BASO # 0.0 103/ul Normal 0.0-0.1 [facility] Comment on above: Performed By: #### C BC #### [facility] [address] [place] [address] Dr. Angelica Smith Basophils/100 WBC (Bld) 0.5 % Normal 0.2-2.0 [facility] Comment on above: Performed By: #### C BC #### [facility] [address] [place] [address] Dr. Angelica Smith EO # 0.1 103/ul Normal 0.0-0.7 [facility] Comment on above: Performed By: #### C BC #### [facility] [address] [place] [address] Dr. Angelica Smith Eosinophils/100 WBC (Bld) 1.6 % Normal 0.9-7.0 [facility] Comment on above: Performed By: #### C BC #### [facility] [address] [place] [address] Dr. Angelica Smith Erythrocyte distribution width (RBC) [Ratio] 12.4 % Normal 11.0-15.0 [facility] Comment on above: Performed By: #### C BC #### [facility] [address] [place] [address] Dr. Angelica Smith Hematocrit (Bld) [Volume fraction] 36.4 % Normal 36.0-48.0 [facility] Comment on above: Performed By: #### C BC #### [facility] [address] [place] [address] Dr. Angelica Smith Hemoglobin (Bld) [Mass/Vol] 13.3 g/dL Normal 12.0-16.0 [facility] Comment on above: Performed By: #### C BC #### [facility] [address] [place] [address] Dr. Angelica Smith IG # 0.01 10e3/ul Normal 0.00-0.03 [facility] Comment on above: Performed By: #### C BC #### [facility] [address] [place] [address] Dr. Angelica Smith IG % 0.2 % Normal 0.0-0.5 [facility] Comment on above: Performed By: #### C BC #### [facility] [address] [place] [address] Dr. Angelica Smith LYMPH # 2.0 103/ul Normal 1.2-3.8 [facility] Comment on above: Performed By: #### C BC #### [facility] [address] [place] [address] Dr. Angelica Smith Lymphocytes/100 WBC (Bld) 32.6 % Normal 20.5-60.0 [facility] Comment on above: Performed By: #### C BC #### [facility] [address] [place] [address] Dr. Angelica Smith MANUAL DIFF REQ NO Normal [facility] Comment on above: Performed By: #### C BC #### [facility] [address] [place] [address] Dr. Angelica Smith MCH (RBC) [Entitic mass] 30.3 pg Normal 26.7-34.0 [facility] Comment on above: Performed By: #### C BC #### [facility] [address] [place] [address] Dr. Angelica Smith MCHC (RBC) [Mass/Vol] 36.5 g/dL Critically high 29.9-35.2 [facility] Comment on above: Performed By: #### C BC #### [facility] [address] [place] [address] Dr. Angelica Smith MCV (RBC) [Entitic vol] 82.9 fL Normal 81.0-99.0 [facility] Comment on above: Performed By: #### C BC #### [facility] [address] [place] [address] Dr. Angelica Smith MONO # 0.4 103/ul Normal 0.3-0.8 [facility] Comment on above: Performed By: #### C BC #### [facility] [address] [address] [address] Angelica Smith Monocytes/100 WBC (Bld) 6.0 % Normal 1.7-12.0 [facility] Comment on above: Performed By: #### C BC #### [facility] [address] [place] [address] Dr. Angelica Smith NEUT # 3.7 103/ul Normal 1.4-6.5 [facility] Comment on above: Performed By: #### C BC #### [facility] [address] [place] [address] Dr. Angelica Smith Neutrophils/100 WBC (Bld) 59.1 % Normal 43.0-75.0 [facility] Comment on above: Performed By: #### C BC #### [facility] [address] [place] [address] Dr. Angelica Smith Platelet mean volume (Bld) [Entitic vol] 9.5 fL Normal 9.5-13.5 [facility] Comment on above: Performed By: #### C BC #### [facility] [address] [place] [address] Dr. Angelica Smith PLT 313 103/ul Normal 150-450 [facility] Comment on above: Performed By: #### C BC #### [facility] [address] [place] [address] Dr. Angelica Smith RBC 4.39 106/ul Normal 4.20-5.40 [facility] Comment on above: Performed By: #### C BC #### [facility] [address] [place] [address] Dr. Angelica Smith WBC 6.2 103/ul Normal 4.0-11.0 [facility] Comment on above: Performed By: #### C BC #### [facility] [address] [place] [address] Dr. Angelica Smith ER URINE PROFILEon 3 Bilirubin Ql (U) Negative Normal NEGATIVE [facility] Comment on above: Performed By: #### E RUR UMICRO #### [facility] [address] [place] [address] Dr. Angelica Smith Clarity (U) CLEAR Normal CLEAR [facility] Comment on above: Performed By: #### TOREY OJEDARO #### [facility] [address] [place] [address] Dr. Angelica Smith Color (U) LT. YELLOW Normal YELLOW [facility] Comment on above: Performed By: #### TOREY OJEDARO #### [facility] [address] [place] [address] Dr. Angelica Smith ERUAHD A micrscopic examina tion will be performed if indicated. Normal [facility] Comment on above: Performed By: #### TOREY OJEDARO #### [facility] [address] [place] [address] Dr. Angelica Smith Glucose Ql (U) Negative Normal NEGATIVE [facility] Comment on above: Performed By: #### TOREY OJEDARO #### [facility] [address] [place] [address] Dr. Angelica Smith Hemoglobin Ql (U) MODERATE Abnormal NEGATIVE [facility] Comment on above: Performed By: #### TOREY OJEDARO #### [facility] [address] [place] [address] Dr. Angelica Smith Ketones Ql (U) Negative Normal NEGATIVE [facility] Comment on above: Performed By: #### TOREY OJEDARO #### [facility] [address] [place] [address] Dr. Angelica Smith LEUKOCYTES Negative Normal NEGATIVE [facility] Comment on above: Performed By: #### TOREY OJEDARO #### [facility] [address] [place] [address] Dr. Angelica Smith Nitrite Ql (U) Negative Normal NEGATIVE [facility] Comment on above: Performed By: #### TOREY OJEDARO #### [facility] [address] [place] [address] Dr. Angelica Smith pH (U) 7.0 [pH] Normal 5-9 [facility] Comment on above: Performed By: #### Gladis BUSBY, UMICRO #### [facility] [address] [address] [address] Angelica Smith SPEC GRAVITY 1.010 Normal 1.005-<=1. 025 [facility] Comment on above: Performed By: #### Gladis BUSBY, UMICRO #### [facility] [address] [address] [address] Angelica Smith UA PROTEIN Negative Normal NEGATIVE/ TRACE [facility] Comment on above: Performed By: #### Gladis BUSBY, UMICRO #### [facility] [address] [address] [address] Angelica Smith UR MICRO IND INDICATED Normal [facility] Comment on above: Performed By: #### Gladis BUSBY, UMICRO #### [facility] [address] [place] [address] Dr. Angelica Smith Urobilinogen Qn (U) 0.2 {Sujey'U}/dL Normal 0.2 - 1. 0 [facility] Comment on above: Performed By: #### Gladis BUSBY, UMICRO #### [facility] [address] [address] [address] Angelica Smith PREG QUANT HCGon 09-28-2022 HCG QUANT 1 mIU/mL Normal [facility] Comment on above: Performed By: #### B MEGHAN, PREGQNT ####[facility] [id number] [address]Dr. Angelica Smith HCG RANGE SEE BELOW Normal [facility] Comment on above: Result Comment: 5-50 0.2-1 WEEK 50-500 1-2 WEEKS 100-5,000 2-3 WEEKS 500-10,000 3-4 WEEKS 1,000-50,000 4-5 WEEKS 10,000-100,000 5-6 WEEKS 15,000-200,000 6-8 WEEKS 10,000-100,000 2-3 MONTHS Performed By: #### B MP, PREGQNT ####[facility] [id number] [address]Dr. Angelica Smith PROF CHEM 8 (BAS METB)on Anion gap [Moles/Vol] 11.5 mmol/L Normal Th [facility] Comment on above: Performed By: #### B MEGHAN, PREGQNT #### [facility] [address] [place] [address] Dr. Angelica Smith Calcium [Mass/Vol] 9.0 mg/dL Normal 8.5-10.1 [facility] Comment on above: Performed By: #### B MEGHAN, PREGQNT #### [facility] [address] [place] [address] Dr. Angelica Smith Chloride [Moles/Vol] 104 mmol/L Normal 98-107 [facility] Comment on above: Performed By: #### B MEGHAN, PREGQNT #### [facility] [address] [place] [address] Dr. Angelica Smith CO2 [Moles/Vol] 27.0 mmol/L Normal 21.0-32.0 [facility] Comment on above: Performed By: #### B MEGHAN, PREGQNT #### [facility] [address] [place] [address] Dr. Angelica Smith Creatinine [Mass/Vol] 0.71 mg/dL Normal 0.55-1.02 [facility] Comment on above: Performed By: #### B MEGHAN, PREGQNT #### [facility] [address] [place] [address] Dr. Angelica Smith EGFR-AF MAURITIAN >60 Normal >=60 [facility] Comment on above: Performed By: #### B MEGHAN, PREGQNT #### [facility] [address] [place] [address] Dr. Angelica Smith EGFR-NON AF MAURITIAN >60 Normal >=60 [facility] Comment on above: Performed By: #### B MEGHAN, PREGQNT #### [facility] [address] [place] [address] Dr. Angelica Smith Glucose [Mass/Vol] 92 mg/dL Normal 74-106 [facility] Comment on above: Performed By: #### B MEGHAN, PREGQNT #### [facility] [address] [place] [address] Dr. Angelica Smith Potassium [Moles/Vol] 3.5 mmol/L Normal 3.5-5.1 [facility] Comment on above: Performed By: #### B MEGHAN, PREGQNT #### [facility] [address] [place] [address] Dr. Angelica Smith Sodium [Moles/Vol] 139 mmol/L Normal 136-145 [facility] Comment on above: Performed By: #### B MEGHAN, PREGQNT #### [facility] [address] [place] [address] Dr. Angelica Smith Urea nitrogen [Mass/Vol] 8.0 mg/dL Normal 7.0-18.0 [facility] Comment on above: Performed By: #### B MEGHAN, PREGQNT #### [facility] [address] [place] [address] Dr. Angelica Smith Urea nitrogen/Creatinine [Mass ratio] 11.3 mg/mg Normal [facility] Comment on above: Performed By: #### B MEGHAN, PREGQNT #### [facility] [address] [place] [address] Dr. Angelica Smith URINE MICROSCOPIC ONLYon BACTERIA NONE SEEN Normal NONE SEEN [facility] Comment on above: Performed By: #### Gladis BUSBY UMICRO #### [facility] [address] [place] [address] Dr. Angelica Smith Bacteria identified Cx Nom (U) NOT INDICATED Normal [facility] Comment on above: Performed By: #### Gladis BUSBY UMICRO #### [facility] [address] [place] [address] Dr. Angelica Smith CAST NONE SEEN Normal NONE SEEN [facility] Comment on above: Performed By: #### Gladis BUSBY UMICRO #### [facility] [address] [place] [address] Dr. Angelica Smith Crystals LM Nom (Urine sed) NONE SEEN Normal NONE SEEN [facility] Comment on above: Performed By: #### Gladis BUSBY UMICRO #### [facility] [address] [place] [address] Dr. Angelica Smith Epithelial cells LM Ql (Urine sed) FEW Abnormal NONE SEEN /RARE [facility] Comment on above: Performed By: #### E RUR, UMICRO #### [facility] [address] [place] [address] Dr. Angelica Smith MUCOUS NONE SEEN Normal NONE SEEN [facility] Comment on above: Performed By: #### E RUR, UMICRO #### [facility] [address] [place] [address] Dr. Angelica Smith RBC 0-2 Normal 0-2 [facility] Comment on above: Performed By: #### E DAVISR, UMICRO #### [facility] [address] [place] [address] Dr. Angelica Smith WBC NONE SEEN Normal NONE SEEN [facility] Comment on above: Performed By: #### E DAVISR, UMICRO #### [facility] [address] [place] [address] Dr. Angelica Smith PREG QUANT HCGon 09-24-2022 HCG QUANT 7 mIU/mL Normal [facility] Comment on above: Performed By: #### P REGQNT #### [facility] [address] [place] [address] Dr. Angelica Smith HCG RANGE SEE BELOW Normal [facility] Comment on above: Result Comment: 5-50 0.2-1 WEEK 50-500 1-2 WEEKS 100-5,000 2-3 WEEKS 500-10,000 3-4 WEEKS 1,000-50,000 4-5 WEEKS 10,000-100,000 5-6 WEEKS 15,000-200,000 6-8 WEEKS 10,000-100,000 2-3 MONTHS Performed By: #### P REGQNT #### [facility] [address] [place] [address] Dr. Angelica Smith PREG QUANT HCGon 09-22-2022 HCG QUANT 14 mIU/mL Normal [facility] Comment on above: Performed By: #### P REGQNT #### [facility] [address] [place] [address] Dr. Angelica Smith HCG RANGE SEE BELOW Normal [facility] Comment on above: Result Comment: 5-50 0.2-1 WEEK 50-500 1-2 WEEKS 100-5,000 2-3 WEEKS 500-10,000 3-4 WEEKS 1,000-50,000 4-5 WEEKS 10,000-100,000 5-6 WEEKS 15,000-200,000 6-8 WEEKS 10,000-100,000 2-3 MONTHS Performed By: #### P REGQNT #### [facility] [address] [address] [address] Angelica Smith Albumin [Mass/volume] in Ser um or PlasmaOrdered By: Donavon Yanes on 08-11-2022 Albumin [Mass/Vol] 4.0 g/dL 3.2-5.5 [facility] Bilirubin Test strip Ql (U)O rdered By: Donavon Yanes on 08-11-2022 Bilirubin Ql (U) Negative Negative [facility] Color Auto (U)Ordered By: Kunal Yanes on 08-11-2022 Color (U) Yellow Yellow [facility] Creatinine and Glomerular fi ltration rate.predicted panel (S/P/Bld)Ordered By: Donavon Yanes on 08-11-2022 Creatinine [Mass/Vol] 0.71 mg/dL 0.44-1.03 [facility] Direct bilirubin measurement Ordered By: Donavon Yanes on 08-11-2022 Bilirubin.direct [Mass/Vol] 0.2 mg/dL 0.0-0.4 [facility] Estimated glomerular filtrat ion rate (GFR) non- AmericanOrdered By: Donavon Yanes on 08-11-2022 GFR/1.73 sq M.predicted among non-blacks MDRD (S/P/Bld) [Vol rate/Area] > 60 mL/Min [facility] Globulin Calc (S) [Mass/Vol] Ordered By: Donavon Yanes on 08-11-2022 Globulin (S) [Mass/Vol] 2.9 g/dL [facility] Ketones Auto test strip (U) [Mass/Vol]Ordered By: Donavon Yanes on 08-11-2022 Ketones (U) [Mass/Vol] Negative Negative Fi [facility] Nitrite Test strip Ql (U)Ord ered By: Donavon Yanes on 08-11-2022 Nitrite Ql (U) Negative Negative [facility] No Panel InformationOrdered By: Donavon Yanes on 08-11-2022 Estimated GFR () > 60 mL/Min [facility] Comment on above: GFR estimated refere nce range: According to KDOQI guidelines, <60 ml/min/1.73m2 is sufficient to diagnose a patient with chronic kidney disease. Pharmacy Creatinine Clearance (Chem N/A [facility] Protein Auto test strip (U) [Mass/Vol]Ordered By: Donavon Yanes on 08-11-2022 Protein (U) [Mass/Vol] Negative Negative [facility] Protein [Mass/volume] in Ser um or PlasmaOrdered By: Donavon Yanes on 08-11-2022 Protein [Mass/Vol] 6.9 g/dL 6.1-7.9 [facility] Serum or plasma alanine perry otransferase measurement without P-5'-P (enzymatic activiOrdered By: Donavon Yanes on 08-11-2022 ALT No additional P-5'-P [Catalytic activity/Vol] 12 U/L 1060 [facility] Serum or plasma albumin/glob ulin mass ratioOrdered By: Donavon Yanes on 08-11-2022 Albumin/Globulin [Mass ratio] 1.4 {ratio} [facility] Serum or plasma alkaline blair sphatase measurement (enzymatic activity/volume)Ordered By: Donavon Yanes on 08-11-2022 ALP [Catalytic activity/Vol] 47 U/L 32-92 [facility] Serum or plasma anion gap de terminationOrdered By: Donavon Yanes on 08-11-2022 Anion gap [Moles/Vol] 8.3 mmol/L 6.0-15.0 [facility] Serum or plasma aspartate am inotransferase measurement (enzymatic activity/volume)Ordered By: Donavon Yanes on 08-11-2022 AST [Catalytic activity/Vol] 19 U/L 10-42 [facility] Serum or plasma calcium michael urement (mass/volume)Ordered By: Donavon Yanes on 08-11-2022 Calcium [Mass/Vol] 9.4 mg/dL 8.2-10.2 [facility] Serum or plasma chloride mandeep surement (moles/volume)Ordered By: Donavon Yanes on 08-11-2022 Chloride [Moles/Vol] 104 mmol/L 95-114 [facility] Serum or plasma glucose michael urement (mass/volume)Ordered By: Donavon Yanes on 08-11-2022 Glucose [Mass/Vol] 81 mg/dL 70-100 [facility] Comment on above: ADA recommended refe rence rangeRandom Glucose Reference Range is dependent on time and content of last meal. Glucose of more than 200 mg/dL in a nonstressed, ambulatory subject supports the diagnosis of Diabetes Mellitus. Serum or plasma non-glucuron idated bilirubin measurement (mass/volume)Ordered By: Donavon Yanes on 08-11-2022 Bilirubin.indirect [Mass/Vol] 2.0 mg/dL [facility] Serum or plasma potassium me asurement (moles/volume)Ordered By: Donavon Yanes on 08-11-2022 Potassium [Moles/Vol] 3.9 mmol/L 3.5-5.1 [facility] Serum or plasma sodium measu rement (moles/volume)Ordered By: Donavon Yanes on 08-11-2022 Sodium [Moles/Vol] 135 mmol/L 136-146 [facility] Serum or plasma total biliru bin measurement (mass/volume)Ordered By: Donavon Yanes on 08-11-2022 Bilirubin [Mass/Vol] 2.2 mg/dL 0.3-1.2 [facility] Comment on above: Samples from patient s who have taken Naproxen have shown spurious elevation in Total Bilirubin levels. A metabolite of Naproxen, O-desmethylnaproxen, has been shown to interfere with the Oren-Jarek method for measuring Total Bilirubin. Serum or plasma total carbon dioxide measurement (moles/volume)Ordered By: Donavon Yanes on 08-11-2022 CO2 [Moles/Vol] 26.6 mmol/L 22.0-30.0 [facility] Serum or plasma urea nitroge n measurement (mass/volume)Ordered By: Donavon Yanes on 08-11-2022 Urea nitrogen [Mass/Vol] 10 mg/dL 06-12 [facility] Specific gravity Auto test s trip (U) [Rel density]Ordered By: Donavon Yanes on 08-11-2022 Specific gravity (U) [Rel density] 1.007 1.001-1.03 0 [facility] Urine clarity by refractomet ry automatedOrdered By: Donavon Yanes on 08-11-2022 Clarity Refractometry automated (U) Clear Clear [facility] Urine glucose measurement by automated test strip (mass/volume)Ordered By: Donavon Yanes on 08-11-2022 Glucose Auto test strip (U) [Mass/Vol] Normal mg/dL Normal [facility] Urine hemoglobin detection b y automated test stripOrdered By: Donavon Yanes on 08-11-2022 Hemoglobin Auto test strip Ql (U) Negative Negative [facility] Urine leukocyte esterase det ection by automated test stripOrdered By: Donavon Yanes on 08-11-2022 Leukocyte esterase Auto test strip Ql (U) Negative Negative [facility] Urobilinogen Auto test strip (U) [Mass/Vol]Ordered By: Donavon Yanes on 08-11-2022 Urobilinogen (U) [Mass/Vol] Normal mg/dL Normal [facility] pH Auto test strip (U)Ordere d By: Donavon Yanes on 08-11-2022 pH (U) 6.0 [pH] 5.0-9.0 [facility] Albumin [Mass/volume] in Ser um or PlasmaOrdered By: Donavon Yanes on 06-18-2022 Albumin [Mass/Vol] 4.2 g/dL 3.2-5.5 [facility] Basophils Auto (Bld) [#/Vol] Ordered By: Donavon Yanes on 06-18-2022 Basophils (Bld) [#/Vol] 0.0 10*3/uL 0.0-0.2 [facility] Basophils/100 WBC Auto (Bld) Ordered By: Donavon Yanes on 06-18-2022 Basophils/100 WBC (Bld) 0.5 % . [facility] Blood hemoglobin measurement (mass/volume)Ordered By: Donavon Yanes on 06-18-2022 Hemoglobin (Bld) [Mass/Vol] 13.3 g/dL 11.8-15.4 [facility] Blood leukocytes automated c ount (number/volume)Ordered By: Donavon Yanes on 06-18-2022 WBC (Bld) [#/Vol] 6.9 10*3/uL 4.5-11.0 [facility] Cholesterol [Mass/volume] in Serum or PlasmaOrdered By: Donavon Yanes on 06-18-2022 Cholesterol [Mass/Vol] 143 mg/dL 140-200 [facility] Comment on above: Chol less than 200 m g/dl low riskChol 201-239 mg/dl borderline riskChol 240 mg/dl and greater high risk Cholesterol in LDL Calc [Mas s/Vol]Ordered By: Donavon Yanes on 06-18-2022 Cholesterol in LDL [Mass/Vol] 83 mg/dL 0-100 [facility] Comment on above: LDL ATP III CLASSIFI CATIONLDL less than 100 mg/dL OptimalLDL 100-129 mg/dL Near or above optimalLDL 130-159 mg/dL Borderline highLDL 160-189 mg/dL HighLDL greater than 189 mg/dL Very high Cholesterol in VLDL Calc [Ma ss/Vol]Ordered By: Donavon Yanes on 06-18-2022 Cholesterol in VLDL [Mass/Vol] 14 mg/dL [facility] Creatinine [Mass/volume] in UrineOrdered By: Donavon Yanes on 06-18-2022 Creatinine (U) [Mass/Vol] 113.4 mg/dL [facility] Comment on above: No reference range e stablished Creatinine and Glomerular fi ltration rate.predicted panel (S/P/Bld)Ordered By: Donavon Yanes on 06-18-2022 Creatinine [Mass/Vol] 0.70 mg/dL 0.44-1.03 [facility] Eosinophils Auto (Bld) [#/Vo l]Ordered By: Donavon Yanes on 06-18-2022 Eosinophils (Bld) [#/Vol] 0.1 10*3/uL 0.0-0.45 [facility] Eosinophils/100 WBC Auto (Bl d)Ordered By: Donavon Yanes on 06-18-2022 Eosinophils/100 WBC (Bld) 0.9 % . [facility] Erythrocyte distribution wid th Auto (RBC) [Ratio]Ordered By: Donavon Yanes on 06-18-2022 Erythrocyte distribution width (RBC) [Ratio] 12.4 % 11.9-15.3 [facility] Estimated glomerular filtrat ion rate (GFR) non- AmericanOrdered By: Donavon Yanes on 06-18-2022 GFR/1.73 sq M.predicted among non-blacks MDRD (S/P/Bld) [Vol rate/Area] > 60 mL/Min [facility] Globulin Calc (S) [Mass/Vol] Ordered By: Donavon Yanes on 06-18-2022 Globulin (S) [Mass/Vol] 2.5 g/dL [facility] Glucose mean value [Mass/vol ume] in Blood Estimated from glycated hemoglobinOrdered By: Donavon Yanes on 06-18-2022 Average glucose Estimated from glycated hemoglobin (Bld) [Mass/Vol] 100 mg/dL [facility] Hematocrit Auto (Bld) [Volum e fraction]Ordered By: Donavon Yanes on 06-18-2022 Hematocrit (Bld) [Volume fraction] 39.3 % 34.0-46.4 [facility] Hemoglobin A1c percentageOrd ered By: Donavon Yanes on 06-18-2022 HbA1c (Bld) [Mass fraction] 5.1 % 4.3-5.6 [facility] Comment on above: Increased risk for d iabetes: 5.7 - 6.4diabetes: >6.4glycemic control for adults with diabetes: <7.0 Laboratory - Hematology and Cell countsOrdered By: Donavon Yanes on 06-18-2022 Nucleated RBC/100 WBC (Bld) [Ratio] 0.1 % 0-0.5 [facility] Lymphocytes Auto (Bld) [#/Vo l]Ordered By: Donavon Yanes on 06-18-2022 Lymphocytes (Bld) [#/Vol] 1.9 10*3/uL 1.00-4.8 [facility] Lymphocytes/100 WBC Auto (Bl d)Ordered By: Donavon Yanes on 06-18-2022 Lymphocytes/100 WBC (Bld) 27.9 % . [facility] MCH Auto (RBC) [Entitic mass ]Ordered By: Donavon Yanes on 06-18-2022 MCH (RBC) [Entitic mass] 30.5 pg 24.7-34.3 [facility] MCHC Auto (RBC) [Mass/Vol]Or dered By: Donavon Yanes on 06-18-2022 MCHC (RBC) [Mass/Vol] 33.7 g/dL 32.0-35.0 [facility] MCV Auto (RBC) [Entitic vol] Ordered By: Donavon Yanes on 06-18-2022 MCV (RBC) [Entitic vol] 90.2 fL 80-100 [facility] Monocytes Auto (Bld) [#/Vol] Ordered By: Donavon Yanes on 06-18-2022 Monocytes (Bld) [#/Vol] 0.3 10*3/uL 0.0-0.8 [facility] Monocytes/100 WBC Auto (Bld) Ordered By: Donavon Yanes on 06-18-2022 Monocytes/100 WBC (Bld) 4.9 % . [facility] Neutrophils Auto (Bld) [#/Vo l]Ordered By: Donavon Yanes on 06-18-2022 Neutrophils (Bld) [#/Vol] 4.6 10*3/uL 1.8-7.7 [facility] Neutrophils/100 WBC Auto (Bl d)Ordered By: Donavon Yanes on 06-18-2022 Neutrophils/100 WBC (Bld) 65.8 % . [facility] No Panel InformationOrdered By: Donavon Yanes on 06-18-2022 Estimated GFR () > 60 mL/Min [facility] Comment on above: GFR estimated refere nce range: According to KDOQI guidelines, <60 ml/min/1.73m2 is sufficient to diagnose a patient with chronic kidney disease. Pharmacy Creatinine Clearance (Chem N/A [facility] Platelet mean volume Auto (B ld) [Entitic vol]Ordered By: Donavon Yanes on 06-18-2022 Platelet mean volume (Bld) [Entitic vol] 8.8 fL 6.3-10.7 [facility] Platelets Auto (Bld) [#/Vol] Ordered By: Donavon Yanes on 06-18-2022 Platelets (Bld) [#/Vol] 307 10*3/uL 150-450 [facility] Protein [Mass/volume] in Ser um or PlasmaOrdered By: Donavon Yanes on 06-18-2022 Protein [Mass/Vol] 6.7 g/dL 6.1-7.9 [facility] RBC Auto (Bld) [#/Vol]Ordere d By: Donavon Yanes on 06-18-2022 RBC (Bld) [#/Vol] 4.36 10*6/uL 3.60-5.00 [facility] Serum or plasma alanine perry otransferase measurement without P-5'-P (enzymatic activiOrdered By: Donavon Yanes on 06-18-2022 ALT No additional P-5'-P [Catalytic activity/Vol] 14 U/L 10-60 [facility] Serum or plasma albumin/glob ulin mass ratioOrdered By: Donavon Yanes on 06-18-2022 Albumin/Globulin [Mass ratio] 1.7 {ratio} [facility] Serum or plasma alkaline blair sphatase measurement (enzymatic activity/volume)Ordered By: Donavon Yanes on 06-18-2022 ALP [Catalytic activity/Vol] 49 U/L 32-92 [facility] Serum or plasma anion gap de terminationOrdered By: Donavon Yanes on 06-18-2022 Anion gap [Moles/Vol] 10.0 mmol/L 6.0-15.0 [facility] Serum or plasma aspartate am inotransferase measurement (enzymatic activity/volume)Ordered By: Donavon Yanes on 06-18-2022 AST [Catalytic activity/Vol] 19 U/L 10-42 [facility] Serum or plasma calcium michael urement (mass/volume)Ordered By: Donavon Yanes on 06-18-2022 Calcium [Mass/Vol] 9.4 mg/dL 8.2-10.2 [facility] Serum or plasma chloride mandeep surement (moles/volume)Ordered By: Donavon Yanes on 06-18-2022 Chloride [Moles/Vol] 103 mmol/L 95-114 [facility] Serum or plasma glucose michael urement (mass/volume)Ordered By: Donavon Yanes on 06-18-2022 Glucose [Mass/Vol] 86 mg/dL 70-100 [facility] Comment on above: ADA recommended refe rence rangeRandom Glucose Reference Range is dependent on time and content of last meal. Glucose of more than 200 mg/dL in a nonstressed, ambulatory subject supports the diagnosis of Diabetes Mellitus. Serum or plasma high density lipoprotein (HDL) cholesterol measurementOrdered By: Donavon Yanes on 06-18-2022 Cholesterol in HDL [Mass/Vol] 46 mg/dL 35-85 [facility] Comment on above: HDL CHOL ATP-III CLA SSIFICATION Cardiovascular RiskHDL > or equal to 60 mg/dL LOWHDL < 40 mg/dL HIGH Serum or plasma potassium me asurement (moles/volume)Ordered By: Donavon Yanes on 06-18-2022 Potassium [Moles/Vol] 3.7 mmol/L 3.5-5.1 [facility] Serum or plasma sodium measu rement (moles/volume)Ordered By: Donavon Yanes on 06-18-2022 Sodium [Moles/Vol] 136 mmol/L 136-146 [facility] Serum or plasma total biliru bin measurement (mass/volume)Ordered By: Donavon Yanes on 06-18-2022 Bilirubin [Mass/Vol] 1.9 mg/dL 0.3-1.2 [facility] Comment on above: Samples from patient s who have taken Naproxen have shown spurious elevation in Total Bilirubin levels. A metabolite of Naproxen, O-desmethylnaproxen, has been shown to interfere with the Jenjossue-Jarek method for measuring Total Bilirubin. Serum or plasma total carbon dioxide measurement (moles/volume)Ordered By: Donavon Yanes on 06-18-2022 CO2 [Moles/Vol] 26.7 mmol/L 22.0-30.0 [facility] Serum or plasma total choles terol/high density lipoprotein (HDL) cholesterol mass ratOrdered By: Donavon Yanes on 06-18-2022 Cholesterol.total/Adriana sterol in HDL [Mass ratio] 3.1 {ratio} <5.0 [facility] Serum or plasma urea nitroge n measurement (mass/volume)Ordered By: Donavon Yanes on 06-18-2022 Urea nitrogen [Mass/Vol] 5 mg/dL 9- [facility] TSH DL <= 0.005 mIU/L QnOrde red By: Donavon Yanes on 06-18-2022 TSH Qn 0.74 m[IU]/L 0.45-5.33 [facility] Thyroxine (T4) free [Mass/vo lume] in Serum or PlasmaOrdered By: Donavon Yanes on 06-18-2022 Free T4 [Mass/Vol] 0.86 ng/dL 0.61-1.12 [facility] Triglyceride [Mass/volume] i n Serum or PlasmaOrdered By: Donavon Yanes on 06-18-2022 Triglyceride [Mass/Vol] 70 mg/dL 35-149 [facility] Comment on above: TRIG ATP III [...] 20 mg/L (U) [Mass/Vol] 67.2 mg/dL 0.0-1.8 [facility] Urine microalbumin/creatinin e mass ratioOrdered By: Donavon Yanes on 06-18-2022 Albumin/Creatinine DL <= 20 mg/L (U) [Mass ratio] 592.0 mg/g 0.0-30.0 [facility] Comment on above: 30-300 mg/g indicate s an increased risk for diabetic nephropathy. Greater than 300 mg/g is consistent with clinical nephropathy. (Am. J. Kidney Disease 1995, 25:107) PAP ACOG PANEL 2: 21 to 29on 03-19-2022 . . Normal [facility] Comment on above: Performed By: #### [id number] #### [facility] [address] [place] [address] Dr. Angelica Smith Age Gdln ACOG Testing 21-29 Normal [facility] Comment on above: Performed By: #### [id number] #### [facility] [address] [place] [address] Dr. Angelica Smith DIAGNOSIS: Comment Normal [facility] Comment on above: Result Comment: NEGA TIVE FOR INTRAEPITHELIAL LESION OR MALIGNANCY. Performed By: #### [id number] #### [facility] [address] [place] [address] Dr. Angelica Smith Methodology: Comment Normal [facility] Comment on above: Result Comment: This liquid based ThinPrep(R) pap test was screened with the use of an image guided system. Performed By: #### [id number] #### [facility] [address] [place] [address] Dr. Angelica Smith Note: Comment Normal [facility] Comment on above: Result Comment: The Pap smear is a screening test designed to aid in the detection of premalignant and malignant conditions of the uterine cervix. It is not a diagnostic procedure and should not be used as the sole means of detecting cervical cancer. Both false-positive and false-negative reports do occur. . Performed By: #### [id number] #### [facility] [address] [place] [address] Dr. Angelica Smith Performed by: Comment Normal [facility] Comment on above: Result Comment: Sherry Torres, Blockmason (ASCP) Performed By: #### [id number] #### [facility] [address] [place] [address] Dr. Angelica Smith Reflex Criteria: Comment [facility] Comment on above: Result Comment: The HPV DNA reflex criteria were not met with this specimen result therefore, no HPV testing was performed. . Performed By: #### [id number] #### [facility] [address] [place] [address] Dr. Angelica Smith Specimen adequacy: Comment Normal [facility] Comment on above: Result Comment: Sati sfactory for evaluation. Endocervical and/or squamous metaplastic cells (endocervical component) are present. Performed By: #### [id number] #### [facility] [address] [address] [address] Angelica Smith Vital Signs Date Time Vital Sign Value Performing Clinician Facility 07-18-2024 08:56-0400 Body mass index (BMI) [Ratio] 22.15 kg/m2 Raeann Maru PA Work Phone: [facility] 07-18-2024 08:56-0400 Body weight 68.04 kg Raeann [place] PA Work Phone: [facility] 07-18-2024 08:56-0400 Diastolic blood pressure 62 mm[Hg] Raeann Maru PA Work Phone: [facility] 07-18-2024 08:56-0400 Systolic blood pressure 102 mm[Hg] Raeann [place] PA Work Phone: [facility] 07-04-2024 10:01-0400 Body mass index (BMI) [Ratio] 21.71 kg/m2 Raeann Maru PA Work Phone: [facility] 07-04-2024 10:01-0400 Body weight 66.68 kg Raeann [place] PA Work Phone: [facility] 07-04-2024 10:01-0400 Diastolic blood pressure 60 mm[Hg] Raeann Maru PA Work Phone: [facility] 07-04-2024 10:01-0400 Systolic blood pressure 100 mm[Hg] Raeann [place] PA Work Phone: [facility] 05-23-2024 12:00-0400 Body temperature 97.7 [degF] STRATEGIC PARTNERSHIP REPRESENTATIVE-C Raeann Warchol Work Phone: [facility] 05-23-2024 12:00-0400 Diastolic blood pressure 63 mm[Hg] STRATEGIC PARTNERSHIP REPRESENTATIVE-C Raeann Warchol Work Phone: [facility] 05-23-2024 12:00-0400 Heart rate 74 /min STRATEGIC PARTNERSHIP REPRESENTATIVE-C Raeann Warchol Work Phone: [facility] 05-23-2024 12:00-0400 Respiratory rate 16 /min STRATEGIC PARTNERSHIP REPRESENTATIVE-C Raeann Warchol Work Phone: [facility] 05-23-2024 12:00-0400 SaO2% (BldA) [Mass fraction] 98 % STRATEGIC PARTNERSHIP REPRESENTATIVE-C Raeann Warchol Work Phone: [facility] 05-23-2024 12:00-0400 Systolic blood pressure 95 mm[Hg] STRATEGIC PARTNERSHIP REPRESENTATIVE-C Raeann Warchol Work Phone: [facility] 05-23-2024 11:36-0400 Body height 175.26 cm STRATEGIC PARTNERSHIP REPRESENTATIVE-C Raeann Warchol Work Phone: [facility] 05-23-2024 11:36-0400 Body weight 62.14 kg STRATEGIC PARTNERSHIP REPRESENTATIVE-C Raeann Warchol Work Phone: [facility] 10-21-2023 09:48-0500 Body height 175.3 cm Raeann Warchol STRATEGIC PARTNERSHIP REPRESENTATIVE Work Phone: [facility] 10-21-2023 09:48-0500 Body mass index (BMI) [Ratio] 19.05 kg/m2 Raeann Warchol STRATEGIC PARTNERSHIP REPRESENTATIVE Work Phone: [facility] 10-21-2023 09:48-0500 Body temperature 98.2 [degF] Raeann Warchol STRATEGIC PARTNERSHIP REPRESENTATIVE Work Phone: [facility] 10-21-2023 09:48-0500 Body weight 58.51 kg Raeann Warchol STRATEGIC PARTNERSHIP REPRESENTATIVE Work Phone: [facility] 10-21-2023 09:48-0500 Diastolic blood pressure 60 mm[Hg] Raeann Warchol STRATEGIC PARTNERSHIP REPRESENTATIVE Work Phone: [facility] 10-21-2023 09:48-0500 Heart rate 81 /min Raeann Warchol STRATEGIC PARTNERSHIP REPRESENTATIVE Work Phone: [facility] 10-21-2023 09:48-0500 SaO2% (BldA) [Mass fraction] 100 % Raeann Warchol STRATEGIC PARTNERSHIP REPRESENTATIVE Work Phone: [facility] 10-21-2023 09:48-0500 Systolic blood pressure 112 mm[Hg] Raeann Warchol STRATEGIC PARTNERSHIP REPRESENTATIVE Work Phone: [facility] 04-10-2022 10:10-0400 Body height 172.72 cm Kirstin Hernandez Other [facility] Other 04-10-2022 10:10-0400 Body mass index (BMI) [Ratio] 20.37 kg/m2 Kirstin Hernandez Other [facility] Other 04-10-2022 10:10-0400 Body temperature 98.1 [degF] Kirstin Hernandez Other [facility] Other 04-10-2022 10:10-0400 Body weight 60.78 kg Kirstin Hernandez Other [facility] Other 04-10-2022 10:10-0400 Diastolic blood pressure 62 mm[Hg] Kirstin Hernandez Other [facility] Other 04-10-2022 10:10-0400 Respiratory rate 16 /min Kirstin Hernandez Other [facility] Other 04-10-2022 10:10-0400 SaO2% (BldA) [Mass fraction] 98 % Kirstin Diegofredy Other [facility] Other 04-10-2022 10:10-0400 Systolic blood pressure 104 mm[Hg] Kirstin Hernandez Other [facility] Other 01-02-2022 11:10-0400 Body height 172.72 cm Kirstin Hernandez Other [facility] Other 01-02-2022 11:10-0400 Body mass index (BMI) [Ratio] 21.59 kg/m2 Kirstin Hernandez Other [facility] Other 01-02-2022 11:10-0400 Body temperature 98 [degF] Kirstin Hernandez Other [facility] Other 01-02-2022 11:10-0400 Body weight 64.41 kg Kirstin Hernandez Other [facility] Other 01-02-2022 11:10-0400 Diastolic blood pressure 68 mm[Hg] Kirstin Hernandez Other [facility] Other 01-02-2022 11:10-0400 Respiratory rate 16 /min Kirstin Hernandez Other [facility] Other 01-02-2022 11:10-0400 SaO2% (BldA) [Mass fraction] 99 % Kirstin Hernandez Other [facility] Other 01-02-2022 11:10-0400 Systolic blood pressure 104 mm[Hg] Kirstin Hernandez Other [facility] Other 09-03-2021 11:10-0500 Body height 172.72 cm Kirstin Hernandez Other [facility] Other 09-03-2021 11:10-0500 Body mass index (BMI) [Ratio] 21.89 kg/m2 Kirstin Hernandez Other [facility] Other 09-03-2021 11:10-0500 Body temperature 97.3 [degF] Kirstin Hernandez Other [facility] Other 09-03-2021 11:10-0500 Body weight 65.32 kg Kirstin Hernandez Other [facility] Other 09-03-2021 11:10-0500 Diastolic blood pressure 60 mm[Hg] Kirstin Hernandez Other [facility] Other 09-03-2021 11:10-0500 SaO2% (BldA) [Mass fraction] 95 % Kirstin Hernandez Other [facility] Other 09-03-2021 11:10-0500 Systolic blood pressure 104 mm[Hg] Kirstin Hernandez Other [facility] Other 07-07-2021 14:00-0400 Body height 172.72 cm Kirstin Hernandez Other [facility] Other 07-07-2021 14:00-0400 Body mass index (BMI) [Ratio] 22.04 kg/m2 Kirstin Hernandez Other [facility] Other 07-07-2021 14:00-0400 Body temperature 98.1 [degF] Kirstin Hernandez Other [facility] Other 07-07-2021 14:00-0400 Body weight 65.77 kg Kirstin Hernandez Other [facility] Other 07-07-2021 14:00-0400 Diastolic blood pressure 70 mm[Hg] Kirstin Hernandez Other [facility] Other 07-07-2021 14:00-0400 Respiratory rate 18 /min Kirstin Hernandez Other [facility] Other 07-07-2021 14:00-0400 SaO2% (BldA) [Mass fraction] 99 % Kirstin Hernandez Other [facility] Other 07-07-2021 14:00-0400 Systolic blood pressure 110 mm[Hg] Kirstin Hernandez Other [facility] Other Encounters Encounter Date Encounter Type Care Provider Facility Start: 07-18-2024 End: 07-18-2024 Bamboo flowsheet Raeann CHOUDHURY Work Phone: [facility] Start: 07-18-2024 End: 07-18-2024 Bamboo flowsheet Raeann Meyer PA Work Phone: [facility] Start: 07-18-2024 End: 07-18-2024 flow sheet Raeann CHOUDHURY Work Phone: [facility] Comment on above: Third trimester preg marlene; 32 weeks gestation of Start: 07-18-2024 End: 07-18-2024 ambulatory RAEANN MEYER Not Available Start: 07-13-2024 End: 07-13-2024 Clinisync Result Encounter Raeann CHOUDHURY Work Phone: [facility] External Department Unsolicited Start: 07-13-2024 End: 07-13-2024 Clinisync Result Encounter Raeann CHOUDHURY Work Phone: [facility] External Department Unsolicited Start: 07-04-2024 End: 07-04-2024 Bamboo flowsheet Raeann CHOUDHURY Work Phone: [facility] Start: 07-04-2024 End: 07-04-2024 Bamboo flowsheet Raeann CHOUDHURY Work Phone: [facility] Start: 07-04-2024 End: 07-04-2024 ambulatory RAEANN MEYER Not Available Start: 07-04-2024 End: 07-04-2024 flow sheet Raeann CHOUDHURY Work Phone: [facility] Comment on above: 30 weeks gestation o f ; Third trimester ; Screening for diabetes mellitus (DM); Gastroesophageal reflux in ; Nausea Start: 06-19-2024 End: 06-19-2024 ambulatory JHONATHAN PEDRAZA Not Available Start: 05-26-2024 End: 05-26-2024 ambulatory ROHAN CHAUHAN Not Available Start: 05-23-2024 End: 05-23-2024 Patient encounter procedure STRATEGIC PARTNERSHIP REPRESENTATIVE-C Raeann Ch Work Phone: [facility] Start: 05-23-2024 End: 05-23-2024 ambulatory STRATEGIC PARTNERSHIP REPRESENTATIVE-C Raeann Ch Work Phone: [facility] Work Phone: Start: 05-22-2024 End: 05-22-2024 ambulatory Raeann Fernanda Ch Facility:[facility] Start: 04-14-2024 End: 04-14-2024 ambulatory Clarisa MIKE Facility:[facility] Start: 03-30-2024 End: 03-30-2024 ambulatory GINNY CUELLO Not Available Start: 03-30-2024 End: 03-30-2024 Patient encounter procedure STRATEGIC PARTNERSHIP REPRESENTATIVE-C Raeann Torreschol Work Phone: [facility] Work Phone: Start: 03-30-2024 End: 03-30-2024 ambulatory STRATEGIC PARTNERSHIP REPRESENTATIVE-C Raeann Torreschol Work Phone: [facility] Work Phone: Start: 03-27-2024 End: 03-27-2024 ambulatory JHONATHAN TALIA Not Available Start: 02-28-2024 End: 02-28-2024 ambulatory JHONATHAN TALIA Not Available Start: 02-04-2024 End: 02-04-2024 ambulatory RAEANN RBIANCHOL Not Available Start: 12-21-2023 End: 12-21-2023 ambulatory ESME JOSHI Not Available Start: 12-15-2023 ambulatory [facility] Work Phone: Start: 12-15-2023 Non-patient / [facility] Work Phone: Start: 10-21-2023 End: 10-21-2023 ambulatory RAEANN LAINE Not Available Start: 10-21-2023 End: 10-21-2023 Office outpatient visit 15 minutes Raeann Ch STRATEGIC PARTNERSHIP REPRESENTATIVE Work Phone: [facility] Comment on above: Attention-deficit hy peractivity disorder, other type (CMS/HCC) (Primary Dx); Bilateral impacted cerumen Start: 09-02-2023 End: 09-02-2023 ambulatory Tyler L Armstrong Facility:[facility] Start: 08-31-2023 End: 08-31-2023 ambulatory RAEANN WARCHOL Not Available Start: 08-19-2023 End: 08-19-2023 Patient encounter procedure [facility] Work Phone: [facility] Start: 08-19-2023 End: 08-19-2023 ambulatory [facility] Work Phone: [facility] Work Phone: Start: 08-18-2023 End: 08-18-2023 ambulatory RAEANN WARCHOL Not Available Start: 08-10-2023 End: 08-10-2023 Patient encounter procedure [facility] Work Phone: [facility] Work Phone: Start: 08-10-2023 End: 08-10-2023 ambulatory [facility] Work Phone: [facility] Work Phone: Start: 08-01-2023 End: 08-01-2023 ambulatory GINNY SARMIENTOION Not Available Start: 07-20-2023 End: 07-20-2023 Patient encounter procedure [facility] Work Phone: [facility] [place] Work Phone: Start: 07-20-2023 End: 07-20-2023 ambulatory [facility] Work Phone: [facility] Work Phone: Start: 05-27-2023 End: 05-27-2023 ambulatory [facility] Work Phone: [facility] Work Phone: Start: 05-27-2023 End: 05-27-2023 Patient encounter procedure [facility] Work Phone: [facility] Work Phone: Start: 01-12-2023 End: 01-12-2023 [facility]ulatory [facility] Work Phone: [facility] Work Phone: Start: 01-12-2023 End: 01-12-2023 Departed Referred Services [facility] Work Phone: [facility] Start: 12-09-2022 End: 12-09-2022 ambulatory DO Kirstin Hernandez Work Phone: [facility] Work Phone: Start: 12-09-2022 End: 12-09-2022 Departed Referred DO Kirstin Hernandez Work Phone: [facility] Start: 12-04-2022 End: 12-04-[address] JHONATHAN PEDRAZA . Facility:[facility] Start: 11-26-2022 Encounter for other preprocedural examination DR JHONATHAN PEDRAZA . [facility] Start: 11-26-2022 End: 11-26-2022 ambulatory DO Kirstin Hernandez Work Phone: [facility] Work Phone: Start: 11-26-2022 End: 11-26-2022 Patient encounter procedure DO Kirstin Hernandez Work Phone: [facility] Work Phone: Start: 11-24-2022 End: 11-25-2022 ambulatory PRIMITIVO CHAU Facility:[facility] Start: 11-24-2022 End: 11-25-2022 Encounter for other preprocedural examination PRIMITIVO CHAU Facility:[facility] Start: 10-29-2022 End: 10-29-2022 ambulatory DO Kirstin Hernandez Work Phone: [facility] Work Phone: Start: 10-29-2022 End: 10-29-2022 Patient encounter procedure DO Kirstin Hernandez Work Phone: [facility] Work Phone: Start: 10-20-2022 End: 10-20-2022 ambulatory DO Kirstin Hernandez Work Phone: [facility] Work Phone: Start: 10-20-2022 End: 10-20-2022 Departed Referred DO Kirstin Hernandez Work Phone: [facility] Start: 10-09-2022 End: 10-09-2022 Departed Referred DO Kirstin Hernandez Work Phone: [facility] Start: 10-02-[address] JHONATHAN PEDRAZA . Facili ty:[facility] Start: 09-29-[address] JHONATHAN PEDRAZA . Facili ty:[facility] Start: 09-28-2022 End: 09-28-2022 ambulatory HUMPHREY HOLLAND Facility:[facility] Start: 09-23-[address] JHONATHAN PEDRAZA . Facili ty:[facility] Start: 09-22-2022 End: 10-20-[address] JHONATHAN PEDRAZA . Facility:[facility] Start: 08-11-2022 End: 08-11-2022 ambulatory DO Kirstin Hernandez Work Phone: [facility] Work Phone: Start: 08-11-2022 End: 08-11-2022 Patient encounter procedure DO Kirstin Hernandez Work Phone: [facility] [place] Start: 08-04-2022 End: 08-04-2022 ambulatory Kirstin Hernandez Other [facility] Other Start: 08-04-2022 Telephone encounter Kirstin Hernandez [facility] Start: 06-25-[address] JHONATHAN PEDRAZA . Facili ty:[facility] Start: 06-18-2022 End: 06-18-2022 ambulatory DO Kirstin Hernandez Work Phone: [facility] Work Phone: Start: 06-18-2022 End: 06-18-2022 Patient encounter procedure DO Kirstin Hernandez Work Phone: [facility] [place] Start: 06-12-[address] JHONATHAN PEDRAZA . Facili ty:[facility] Start: 06-08-[address] JHONATHAN PEDRAZA . Facili ty:[facility] Start: 04-14-2022 End: 04-14-2022 ambulatory Kirstin Hernandez Other [facility] Other Start: 04-14-2022 Telephone encounter Kirstin Hernandez [facility] Start: 04-10-2022 End: 04-10-2022 ambulatory iKrstin Hernandez Other [facility] Other Start: 04-10-2022 Office outpatient vi sit 15 minutes Kirstin Hernandez [facility] Start: 03-24-[address] KIRSTIN HERNANDEZ Facilit y:[facility] Start: 03-16-2022 End: 03-16-[address] JHONATHAN PEDRAZA . Facility:[facility] Start: 03-10-2022 End: 03-10-2022 ambulatory Kirstin Hernandez Other [facility] Other Start: 03-10-2022 Telephone encounter Kirstin Hernandez [facility] Start: 01-02-2022 End: 01-02-2022 ambulatory Kirstin Hernandez Other [facility] Other Start: 01-02-2022 Office outpatient vi sit 25 minutes Kirstin Hernandez [facility] Start: 01-02-2022 Telephone encounter Kirstin Hernandez [facility] Start: 12-08-2021 End: 12-08-2021 ambulatory Kirstin Hernandez Other [facility] Other Start: 12-08-2021 Telephone encounter Kirstin Hernandez [facility] Start: 12-02-2021 End: 12-02-2021 ambulatory Kirstin Hernandez Other [facility] Other Start: 12-02-2021 Telephone encounter Kirstin Hernandez [facility] Start: 09-03-2021 End: 09-03-2021 ambulatory Kirstin Hernandez Other [facility] Other Start: 09-03-2021 Office outpatient vi sit 15 minutes Kirstin Hernandez [facility] Start: 07-07-2021 Office outpatient vi sit 15 minutes Kirstin Hernandez [facility] Procedures Date Procedure Procedure Detail Performing Clinician Start: 07-18-2024 Urnls dip stick/tabl et rgnt non-auto w/o micrscp Raeann CHOUDHURY Work Phone: Start: 07-13-2024 ALL CBC WITH AUTO DIFF Raeann CHOUDHURY Work Phone: Start: 07-04-2024 Urnls dip stick/tabl et rgnt non-auto w/o micrscp Raeann CHOUDHURY Work Phone: Start: 03-30-2024 Respiratory Panel (PCR) STRATEGIC PARTNERSHIP REPRESENTATIVE-C Raeann Ch Work Phone: Start: 08-10-2023 Respiratory Panel (PCR) Services [facility] Work Phone: Start: 12-09-2022 Respiratory Panel (PCR) DO Kirstin Hernandez Work Phone: Start: 11-26-2022 Computed tomography of abdomen and pelvis with contrast DO Kirstin Hernandez Work Phone: Start: 10-29-2022 Ultrasonography of b ilateral kidneys DO Kirstin Hernandez Work Phone: Start: 10-29-2022 US scan of gallbladder DO Kirstin Hernandez Work Phone: Plan of Treatment Date Care Activity Detail Author Start: 08-03-2024 End: 08-03-2024 Patient encounter procedure 08/03/2024 9:10 AM EST Routine [facility] [address] [place] [address] Jhonathan Pedraza, DO [address] [place] [address] [facility] Start: 07-18-2024 End: 07-18-2024 Patient encounter procedure [facility] Comment on above: Arrived Start: 05-23-2024 [facility] Start: 05-23-2024 Hospital admission [facility] Start: 05-21-2024 Influenza vaccination Influenza Vacc ine (#1) [facility] Start: 12-15-2023 Patient referral [facility] Work Phone: Start: 01-12-2023 Bacteria identified in Urine by Culture Urine Culture [facility] 17-Hydroxyprogestero ne [Mass/volume] in Serum or Plasma [facility] Alternaria alternata IgE Ab [Units/volume] in Serum [facility] Vincentian house dust mite IgE Ab [Units/volume] in Serum [facility] Vincentian Schoenchen Ig E Ab [Units/volume] in Serum [facility] Androstenedione [Mass/volume] in Serum or Plasma [facility] Aspergillus fumigatu s IgE Ab [Units/volume] in Serum [facility] Shaffer's yeast IgE Ab [Units/volume] in Serum [facility] Banana IgE Ab [Units/volume] in Serum [facility] Barley IgE Ab [Units/volume] in Serum [facility] Beef IgE Ab [Units/volume] in Serum [facility] Bermuda grass IgE Ab [Units/volume] in Serum [facility] Boxelder IgE Ab [Units/volume] in Serum [facility] Cat dander IgG Ab [Units/volume] in Serum [facility] Cheese cheddar type IgE Ab [Units/volume] in Serum [facility] Chicken meat IgE Ab [Units/volume] in Serum [facility] Cladosporium herbaru m IgE Ab [Units/volume] in Serum [facility] Cockroach IgE Ab [Units/volume] in Serum [facility] Common Ragweed IgE A b [Units/volume] in Serum [facility] Macarthur IgE Ab [Units/volume] in Serum [facility] Lamoille IgE Ab [Units/volume] in Serum [facility] Cow milk IgE Ab [Units/volume] in Serum [facility] Dog dander IgE Ab [Units/volume] in Serum [facility] Egg white IgE Ab [Units/volume] in Serum [facility] Estradiol (E2) [Mass/volume] in Serum or Plasma [facility] house dust mite IgE Ab [Units/volume] in Serum [facility] Gluten IgE Ab [Units/volume] in Serum [facility] Hemoglobin A1c/Hemoglobin.total in Blood Hemoglobin A1c Lab Routine Screening for diabetes mellitus (DM) Ordered: 07/04/2024 [facility] Work Phone: Comment on above: Ordered: 07/04/2024 HLA DQ antigen typing [facility] IgE [Units/volume] i n Serum or Plasma [facility] Insulin [Units/volum e] in Serum or Plasma [facility] Insulin [Units/volum e] in Serum or Plasma [facility] Lutropin [Units/volu me] in Serum or Plasma [facility] Mountain Juniper IgE Ab [Units/volume] in Serum [facility] [facility] Mouse urine proteins IgE Ab [Units/volume] in Serum [facility] Oat IgE Ab [Units/vo lume] in Serum [facility] Ashley IgE Ab [Units/volume] in Serum [facility] Patient Education Antepartum Dis charge Instructions (FR) [facility] Work Phone: Patient referral [facility] Work Phone: Peanut IgE Ab [Units/volume] in Serum [facility] Pecan or [place] Domo e IgE Ab [Units/volume] in Serum [facility] Penicillium notatum IgE Ab [Units/volume] in Serum [facility] Pork IgE Ab [Units/volume] in Serum [facility] Potato IgE Ab [Units/volume] in Serum [facility] Progesterone [Mass/volume] in Serum or Plasma [facility] Rice IgE Ab [Units/volume] in Serum [facility] Rough Pigweed IgE Ab [Units/volume] in Serum [facility] Oconto IgE Ab [Units/vo lume] in Serum [facility] Saltwort IgE Ab [Units/volume] in Serum [facility] Sheep Burdett IgE Ab [Units/volume] in Serum [facility] Silver Birch IgE Ab [Units/volume] in Serum [facility] Soybean IgE Ab [Units/volume] in Serum [facility] Testosterone Free [Mass/volume] in Serum or Plasma [facility] Testosterone Free [Mass/volume] in Serum or Plasma [facility] Donavon IgE Ab [Units/volume] in Serum [facility] Tomato IgE Ab [Units/volume] in Serum [facility] Cooleemee IgE Ab [Units/volume] in Serum [facility] Wheat IgE Ab [Units/volume] in Serum [facility] White Marquez IgE Ab [Units/volume] in Serum [facility] White Elm IgG Ab [Units/volume] in Serum [facility] White mulberry IgE A b [Units/volume] in Serum [facility] Paoli IgE Ab [Units/volume] in Serum [facility] Immunizations Immunization Date Immunization Notes Care Provider Sh[facility] 07-20-2023 Influenza, injectable, [place] Canine Kidney, preservative free, quadrivalent Raeann Warchol STRATEGIC PARTNERSHIP REPRESENTATIVE Work Phone: [facility] 07-20-2023 influenza virus vaccine, unspecified formulation Raeann CHOUDHURY Work Phone: [facility] 07-10-2022 influenza, injectable, quadrivalent, preservative free Raeann Warchol STRATEGIC PARTNERSHIP REPRESENTATIVE Work Phone: [facility] 07-07-2022 tetanus toxoid, reduced diphtheria toxoid, and acellular pertussis vaccine, adsorbed Raeann Warchol STRATEGIC PARTNERSHIP REPRESENTATIVE Work Phone: [facility] 01-13-2022 varicella virus vaccine Raeann Warchol STRATEGIC PARTNERSHIP REPRESENTATIVE Work Phone: [facility] 12-23-2021 tuberculin skin test; purified protein derivative solution, intradermal Raeann Warchol STRATEGIC PARTNERSHIP REPRESENTATIVE Work Phone: [facility] 08-18-2021 COVID-19 Vaccine Pfizer - Documentation Purposes Only Kirstin Hernandez Other [facility] 07-28-2021 COVID-19 Vaccine Pfizer - Documentation Purposes Only Kirstin Hernandez Other [facility] 06-11-2021 diphtheria, tetanus toxoids and pertussis vaccine Kirstin Hernandez Other [facility] Other 06-11-2021 measles, mumps and rubella virus vaccine Kirstin Hernandez Other [facility] Other 07-17-2019 influenza, seasonal, injectable Patient Objection Kirstin Hernandez Other [facility] Other 11-09-2014 Rocephin 500 mg Kirstin Hernandez Other [facility] Other 06-09-2012 hepatitis A vaccine, pediatric/adolescent dosage, 2 dose schedule Kirstin Hernandez Other [facility] Other 06-09-2012 human papilloma virus vaccine, quadrivalent Kirstin Hernandez Other [facility] Other 06-09-2012 meningococcal polysaccharide (groups A, C, Y and W-135) diphtheria toxoid conjugate vaccine (MCV4P) Kirstin Hernandez Other [facility] Other 06-09-2012 tetanus toxoid, reduced diphtheria toxoid, and acellular pertussis vaccine, adsorbed Kirstin Hernandez Other [facility] Other 04-01-2004 diphtheria, tetanus toxoids and acellular pertussis vaccine, unspecified formulation Kirstin Hernandez Other [facility] 04-01-2004 measles, mumps and rubella virus vaccine Kirstin Hernandez Other [facility] Other 04-01-2004 poliovirus vaccine, inactivated Kirstin Hernandez Other [facility] Other 04-01-2004 poliovirus vaccine, unspecified formulation [facility] 08-20-2000 diphtheria, tetanus toxoids and acellular pertussis vaccine, unspecified formulation Kirstin Hernandez Other [facility] Other 08-20-2000 haemophilus influenzae type b vaccine, conjugate unspecified formulation Kirstin Hernandez Other [facility] Other 08-20-2000 measles, mumps and rubella virus vaccine Kirstin Hernandez Other [facility] Other 08-20-2000 poliovirus vaccine, inactivated Kirstin Hernandez Other [place] [facility] Other 08-20-2000 poliovirus vaccine, unspecified formulation [facility] 08-20-2000 varicella virus vaccine Kirstin Hernandez Other [facility] Other 01-23-2000 diphtheria, tetanus toxoids and acellular pertussis vaccine, unspecified formulation Kirstin Hernandez Other [facility] Other 01-23-2000 haemophilus influenzae type b conjugate and Hepatitis B vaccine Kirstin Hernandez Other [facility] Other 1999 diphtheria, tetanus toxoids and acellular pertussis vaccine, unspecified formulation Kirstin Hernandez Other [facility] Other 1999 haemophilus influenzae type b conjugate and Hepatitis B vaccine Kirstin Hernandez Other [facility] Other 1999 poliovirus vaccine, inactivated Kirstin Hernandez Other [place] [facility] Other 1999 poliovirus vaccine, unspecified formulation [facility] 1999 diphtheria, tetanus toxoids and acellular pertussis vaccine, unspecified formulation Kirstin Hernandez Other [place] [facility] Other 1999 haemophilus influenzae type b conjugate and Hepatitis B vaccine Kirstin Hernandez Other [facility] Other 1999 poliovirus vaccine, inactivated Kirstin Hernandez Other [facility] Other 1999 poliovirus vaccine, unspecified formulation [facility] NEGATED: Highlighted row has not occurred! 1 influenza, seasonal, injectable Patient Objection Kirstin Hernandez Other [facility] Other NEGATED: Highlighted row has not occurred! 9 influenza, seasonal, injectable Patient Objection Kirstin Hernandez Other [facility] Other Payers Date Payer Category Payer Medicaid [facility] MEDICAID [employer] MEDICAID [place] [id number] 2023-Present [address] [place] [address] [id number] 2023 Private Health Insurance [facility] MEDICAID [id number] [facility] er [id number]. [id number] 2021 Unknown BCBS BCBS [id number] 2021-Present [phone] [address] [place] [id number] 1.2.840.863585.1.13.693.2. 7.3.356460.315 1999 Unknown [id number] 2.16.840.1.077080.3.579.2. 593 1999 Unknown [id number] 2.16.840.1.136302.3.579.2. 593 1999 Unknown [id number] 2.16.840.1.986550.3.579.2. 593 1999 Unknown [id number] 2.16.840.1.541414.3.579.2. 593 1999 Unknown [id number] 2.16.840.1.747915.3.579.2. 593 1999 Unknown [id number] 2.16.840.1.790398.3.579.2. 593 1999 Unknown [id number] 2.16.840.1.937411.3.579.2. 593 1999 Unknown [id number] 2.16.840.1.409353.3.579.2. 593 1999 Unknown [id number] 2.16.840.1.899634.3.579.2. 593 1999 Unknown [id number] 2.16.840.1.061655.3.579.2. 593 1999 Unknown [id number] 2.16.840.1.745154.3.579.2. 593 1999 Unknown [id number] 2.16.840.1.683590.3.579.2. 593 1999 Unknown [id number] 2.16.840.1.522283.3.579.2. 71 1999 Unknown [id number] 2.16.840.1.153368.3.579.2. 718 1999 Unknown [id number] 2.16.840.1.711645.3.579.2. 1258 1999 Unknown [id number] 2.16.840.1.842951.3.579.2. 1258 1999 Unknown [id number] 2.16.840.1.919271.3.579.2. 1258 1999 Unknown [id number] 2.16.840.1.244383.3.579.2. 1258 1999 Unknown [id number] 2.16.840.1.448568.3.579.2. 1258 1999 Unknown [id number] 2.16.840.1.059408.3.579.2. 1258 1999 Unknown [id number] 2.16.840.1.497620.3.579.2. 1258 1999 Unknown [id number] 2.16.840.1.372999.3.579.2. 1258 1999 Unknown [id number] 2.16.840.1.256060.3.579.2. 1258 1999 Unknown [id number] 2.16.840.1.678324.3.579.2. 1258 1999 Unknown [id number] 2.16.840.1.765412.3.579.2. 1258 1999 Unknown [id number] 2.16.840.1.097358.3.579.2. 1258 1999 Unknown [id number] 2.16.840.1.884786.3.579.2. 1258 1999 Unknown [id number] 2.16.840.1.121076.3.579.2. 1259 1999 Unknown [id number] 2.16.840.1.612992.3.579.2. 1259 1999 Unknown [id number] 2.16.840.1.012928.3.579.2. 1259 1959 [facility] [id number] 2.16.840.1.941148.19 1959 Private Health Insurance [id number] 2.16.840.1.713983.19 1959 Private Health Insurance [id number] Self-pay [id number] Unknown [id number] 2.16.840.1.841267.3.579.2. 531 Unknown [id number] 2.16.840.1.663282.3.579.2. 531 Unknown [id number] 2.16.840.1.996226.3.579.2. 531 Unknown [id number] 2.16.840.1.071940.3.579.2. 531 Unknown [id number] 2.16.840.1.447744.3.579.2. 531 Social History Date Type Detail Facility Unknown if ever smoked [facility] Other Start: 10-21-2023 End: 03-30-2024 Sex Assigned At [facility] Other Start: 2000 Sex Assigned At [facility]: 10[facility]21-2023 [facility] Start: 10-21-2023 Tobacco use and exposure Smokeless tobacco non-user [facility] Start: 10-21-2023 End: 07-18-2024 Alcohol intake Lifetime non-drinker (finding) [facility] [...] [facility] Start: 11-10-2017 Tobacco smoking stat us [facility] Never smoked tobacco (finding) [facility] Do you belong to any clubs or organizations such as baptist groups, unions, fraternal or athletic groups, or [...] 12-21-2023 [facility] NEGATED: Highlighted rowStart: NINF History of tobacco use Passive smoker [facility] Clinical Notes 12-02-2011 to 07-18-2024 KEI Hurd - 07/18/2024 8:50 AM KEI Kwok - 07/04/2024 9:20 AM Molina Ch NP - 10/21/2023 9:40 AM ESTPatient Instructions Note Date & Type Note Facility 07-18-2024 History of Present illness Narrative Reason for Appointment: Patient ID: Le Rocha is a 24 y.o. female who presents for Routine Visit Patient presents today for Return OB appointment. MEDICATIONS Current Outpatient Medications Medication Instructions Docusate Sodium (COLACE PO) Take by mouth metoclopramide (REGLAN) 10 mg, Oral, 3 times daily before meals, Take 1 tablet by mouth 30 minutes prior to meals 3 times daily as needed for nausea. omeprazole (PRILOSEC) 20 mg, Oral, Daily before breakfast, Do not crush or chew. Vit w/Yx-Fzqsqpjky-WY (PNV PO) Take by mouth ALLERGIES No Known Allergies PROBLEMS Active Ambulatory Problems Diagnosis Date Noted Affective psychosis ([facility]) 07/19/2023 Bipolar II disorder, most recent episode major depressive ([facility]) 07/19/2023 Hypoglycemia 07/19/2023 Mild persistent asthma without complication ([facility]) 07/19/2023 Mixed anxiety and depressive disorder 07/19/2023 Chronic fatigue 07/20/2023 Attention-deficit hyperactivity disorder, other type ([facility]) 07/20/2023 Resolved Ambulatory Problems Diagnosis Date Noted Attention deficit hyperactivity disorder ([facility]) 07/19/2023 Missed menses 07/20/2023 Unspecified mood (affective) disorder ([facility]) 07/20/2023 Past Medical History: Diagnosis Date Acute low back pain ADHD (attention deficit hyperactivity disorder) ([facility]) Anxiety with depression Asthma ([facility]) Chondritis Family planning Hx of bipolar disorder PCOS (polycystic ovarian syndrome) Pelvic pain Post depression ([facility]) Pre-op exam HISTORY PAST MEDICAL HISTORY SOCIAL HISTORY Past Medical History: Diagnosis Date Acute low back pain ADHD (attention deficit hyperactivity disorder) ([facility]) Anxiety with depression Asthma ([facility]) Chondritis Family planning Hx of bipolar disorder bipolar II PCOS (polycystic ovarian syndrome) Pelvic pain Post depression ([facility]) Pre-op exam Social History Tobacco Use Smoking [...] Exam Constitutional: Appearance: Normal appearance. She is normal weight. HENT: Head: Normocephalic. Cardiovascular: Rate and Rhythm: Normal rate. Pulses: Normal pulses. Pulmonary: Effort: Pulmonary effort is normal. Breath sounds: Normal breath sounds. Abdominal: Palpations: Abdomen is soft. Musculoskeletal: General: Normal range of motion. Neurological: General: No focal deficit present. Mental Status: She is alert and oriented to person, place, and time. Psychiatric: Mood and Affect: Mood normal. Behavior: Behavior normal. Thought Content: Thought content normal. Judgment: Judgment normal. Vitals and nursing note reviewed. Vitals: Estimated body mass index is 22.15 kg/m as calculated from the following: Height as of 12/21/23: 5' 9 . Weight as of this encounter: 150 lb. BP: 102/62 Patient's last menstrual period was 12/07/2023. ASSESSMENT & PLAN ICD-10-CM 1. Third trimester Z34.93 POCT urinalysis dipstick manually resulted 2. 32 weeks gestation of Z3A.32 Return OB: Patient presents today for a routine obstetrics appointment. Patient is currently 32w0d . Patient states she is doing well but has complaints of being tired due to current . Patient has verbalizes frequent movement. labor precautions was discussed/given and patient was instructed to perform kick counts three times a day. Orders Placed This Encounter Procedures POCT urinalysis dipstick manually resulted Follow Up: Patient is to return to office in 2 week for routine OB appointment. Documented by Ginny Hamilton on behalf of: KEI Hurd documented in this encounter [facility] 07-04-2024 History of Present illness Narrative Reason for Appointment: Patient ID: Le Rocha is a 24 y.o. female who presents for Routine Visit Patient presents today for Return OB appointment. MEDICATIONS Current Outpatient Medications Medication Instructions Docusate Sodium (COLACE PO) Take by mouth omeprazole (PRILOSEC) 20 mg, Oral, Daily before breakfast, Do not crush or chew. Vit w/Ce-Upzlrhuiw-IS (PNV PO) Take by mouth ALLERGIES No Known Allergies PROBLEMS Active Ambulatory Problems Diagnosis Date Noted Affective psychosis ([facility]) 07/19/2023 Bipolar II disorder, most recent episode major depressive ([facility]) 07/19/2023 Hypoglycemia 07/19/2023 Mild persistent asthma without complication ([facility]) 07/19/2023 Mixed anxiety and depressive disorder 07/19/2023 Chronic fatigue 07/20/2023 Attention-deficit hyperactivity disorder, other type ([facility]) 07/20/2023 Resolved Ambulatory Problems Diagnosis Date Noted Attention deficit hyperactivity disorder (CMS/HCC) 07/19/2023 Missed menses 07/20/2023 Unspecified mood (affective) disorder ([facility]) 07/20/2023 Past Medical History: Diagnosis Date Acute low back pain ADHD (attention deficit hyperactivity disorder) ([facility]) Anxiety with depression Asthma ([facility]) Chondritis Family planning Hx of bipolar disorder PCOS (polycystic ovarian syndrome) Pelvic pain Post depression ([facility]) Pre-op exam HISTORY PAST MEDICAL HISTORY SOCIAL HISTORY Past Medical History: Diagnosis Date Acute low back pain ADHD (attention deficit hyperactivity disorder) ([facility]) Anxiety with depression Asthma ([facility]) Chondritis Family planning Hx of bipolar disorder bipolar II PCOS (polycystic ovarian syndrome) Pelvic pain Post depression ([facility]) Pre-op exam Social History Tobacco Use Smoking [...] nursing note reviewed. Exam conducted with a wire basket maker present. Vitals: Estimated body mass index is [...] of: KEI Hurd documented in this encounter [facility] 05-22-2024 Note Patient Education Ma terials Follows: [...] these instructions at home: Medicines ? Take xxqw-otj-ijvumvq and prescription medicines only as told by [...] to the area. Brushing your teeth ? [place] your teeth twice a day using a [...] when you eat or drink. ? Take grgm-iof-ebvferi and prescription medicines only as told by your dentist. ? Watch your dental pain for any changes. Let your dentist know if symptoms get worse. This information is not intended to replace advice given to you by your health care provider. Make sure you discuss any questions you have with your health care provider. Document Revised: 06/11/2021 Document Reviewed: 06/11/2021 [employer] Patient Education ? 2023 [employer] Dentistry Dental Pain Dental pain is often [...] these instructions at home: Medicines ? Take xmea-mnc-oxdfiee and prescription medicines only as told by your dentist. ? If you were prescribed an antibiotic medicine, take it as told by your dentist. Do not stop taking it even if you start to feel better. Eating and drinking Do not eat foods or drinks that cause you pain. These include: (more content not included)... [facility] 12-15-2023 Hospital Discharge instructions Ambulatory OrdersReferral to Orthopedics Time Frame: 12/15/23, Location: [facility] Work Phone: 10-21-2023 History of Present illness Narrative SUBJECTIVE Le Rocha is a [...] follow-up: [facility] . documented in this encounter [facility] 10-21-2023 Instructions Raeann Ch NP - 10/21/2023 9:40 AM EST PATIENT EDUCATION: ADHD Current drug therapy discussed during office visit. Call office for worsening of symptoms for follow-up visit. Per [facility] regulations, follow-ups have to occur at [...] for repeat lavage. documented in this encounter [facility] 09-03-2023 Note [id number] [facility] 09-02-2023 Note Patient Education Ma terials Follows: [facility] 12-04-2022 Note OPERATIVE NOTE OPERATION DATE: 12/04/2022 PROCEDURE: Robotic assisted diagnostic laparoscopy. PREOPERATIVE DIAGNOSIS: Pelvic pain. POSTOPERATIVE DIAGNOSIS: Pelvic pain. ANESTHESIA: General. SURGEON: Jhonatahn Pedraza D.O. CURTAIN CLEANER: STEPHON Weber URINE OUTPUT: Yellow and clear. [...] to Recovery Room in stable condition. [facility] 08-04-2022 Evaluation note Encounter Date Diagnosis Assessment Notes Jul, ADHD (attention deficit hyperactivity disorder) (ICD-10 - F90.9) Jul, Anxiety (ICD-10 - F41.9) [facility] Other 07-22-2022 Evaluation note* Encounter Date Diagnosis [...] done in May (2021) by Dr. Pedraza. [facility] Other 06-21-2022 Evaluation note* Encounter Date Diagnosis Assessment Notes Treatment Notes Treatment Clinical Notes Feb, Fatigue (ICD-10 - R53.83) Feb, Weakness (ICD-10 - R53.1) Feb, Chest pain (ICD-10 - R07.9) [facility] Other 04-15-2022 Evaluation note* Encounter Date Diagnosis [...] the symptoms so they can be documented. [facility] Other 03-15-2022 Evaluation note* Encounter Date Diagnosis Assessment Notes Treatment Notes Treatment Clinical Notes Nov, ADHD (attention deficit hyperactivity disorder) (ICD-10 - F90.9) [facility] Other 12-15-2021 Evaluation note* Encounter Date Diagnosis [...] that her HGB has improved. Aug, Other jewel bearing facer (current) drug therapy (ICD-10 - Z79.899) After she has been on the Adderall for a few weeks she should have lab drawn to be sure the medication is not affecting liver or kidneys, she can call for results. [facility] Other 10-18-2021 Evaluation note* Encounter Date Diagnosis [...] have EMDR done through her new counselor. [facility] Other 03-14-2012 History general Narrative - Reported* Type Description Date Medical History 12-02-2011 Echo - Structurally No rmal Heart Medical History 12-02-11 CXR - Negative Medical History 12-02-11 Echo- Structurally [facility] Medical History Pre & Post Spirometry Medical History ADD Medical History X-Ray Left Ankle 08-07-13; [facility] Medical History PCOS found on ultrasound Medical History bipolar -2 Surgical History No Surgical history information Hospitalization History [facility] - chest pain s 08/12/15 Hospitalization History [facility] panic attack 08/17/15 [facility] Other 03-14-2012 History general Narrative - Reported* Type Description Date Medical History 12-02-2011 Echo - Structurally No rmal Heart Medical History 12-02-11 CXR - Negative Medical History 12-02-11 Echo- Structurally [facility] Medical History Pre & Post Spirometry Medical History ADD Medical History X-Ray Left Ankle 08-07-13; [facility] Medical History PCOS found on ultrasound Medical History bipolar -2 Medical History 10/07/21 pt states sh e had seizures 3-4 years ago that were stress induced Surgical History No Surgical history information Hospitalization History [facility] - chest pain s 08/12/15 Hospitalization History [facility] panic attack 08/17/15 [facility] Other Evaluation noteNo InformationNort [employer] Other Evaluation noteNo assessment information available [facility] Work Phone: Evaluvweqd note* Diagnosis Attention-deficit hyperactivity disorder, other type (CMS/HCC)- Primary Bilateral impacted cerumen Impacted cerumen [facility] Diagnosis 30 weeks gestation of Third trimester state, incidental Screening for diabetes mellitus (DM) Screening for diabetes mellitus Gastroesophageal reflux in Nausea Nausea alone [facility] Diagnosis Third trimester state, incidental 32 weeks gestation of documented in this encounter [facility] for [facility] Narrativemed refill Adderall, discuss multiple issues, see treatment plan for [facility] Other Advance Directives No Advanced Directives Records [...] Chief Complaint R05.1 R09.81 24 wks cramping sent Summary Purpose Family History No Family [...] Mendez Primary Care Provider Active Team Status: Inactive Member Role Status [facility]NA Mendez Primary Care Provider Active Start: March 30, 2024 End: March 30, 2024 Ginny Cuello APRN STRATEGIC PARTNERSHIP REPRESENTATIVE-C Attending Provider Act michelle Start: March 30, 2024 End: March 30, 2024 Team Status: Active Member Role Status UNA [...] Team Status: Inactive Member Role Status [facility] Primary Care Provider Active UNA Segura Attending Provide r Active Team Status: Inactive Member Role Status Merrick Hernandez DO Primary Care Provider Active [facility] Segura Attending Provide r Active Team Status: Active Member Role Status [employer] [facility] Primary Care Provider Active Team Status: Inactive Member Role Status [facility] Hurley Attending Provide r Active Services Family [facility] Primary Care Provider Active Team Status: Inactive Member Role Status UNA Hurley Attending Provide r Active Team Status: Active Member Role Status [facility] [facility] Primary Care Provider Ac tive Team Status: Inactive Member Role Status Dates Services [facility] Primary Care Provider Ac tive UNA Segura Attending Provide r Active Team Status: Inactive Member Role Status Dates Services [facility] Primary Care Provider Ac tive Raeann Ch NP-C Attending Provider Active Team Status: Inactive Member Role Status UNA Mendez Primary Care Provider, Attending Pr ovider Active Supervisor [employer] Relationship Specialty Start Date End Date Yovany Crawley MD [address] [place] [address] PCP - General Family Medicine 07/20/23 Raeann Ch NP [address] [place] [address] Nurse Practitioner [facility] Medicine 07/20/23 Team Status: Inactive Member Role Status Dates ARLEN RuizC Primary Care Provider Active Start: May 23, 2024 End: May 23, 2024 Andrzej Grace DO Attending Provider Active Sta rt: May 23, 2024 End: May 23, 2024 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 [employer] Relationship Specialty Start Date End Date Yovany Crawley MD [address] [place] [address] PCP - General Family Medicine 07/20/23 Raeann Ch [employer]NER[employer] REPRESENTATIVE [address] [place] [address] Nurse Practitioner [facility] 07/20/23 Supervisor [employer] Relationship Specialty Start Date End Date Yovany Crawley MD [address] [place] [address] PCP - General Family Medicine 07/20/23 Raeann Ch NP [address] [place] [address] Nurse Practitioner Family Medicine 07/20/23 Supervisor [employer] Relationship Specialty Start Date End Date Yovany Crawley MD [address] [place] [address] PCP - General Family Medicine 07/20/23 Raeann Ch NP [address] [place] [address] Nurse Practitioner Family Medicine 07/20/23 Supervisor [employer] Relationship Specialty Start Date End Date Yovany Crawley MD [address] [place] [address] PCP - General Family Medicine 07/20/23 Raeann Ch NP [address] [place] [address] Nurse Practitioner Family Medicine 07/20/23 Goals (unrecognized section and content) Goals may be documented in a n alternate section INFORMATION SOURCE (unrecogn ized section and content) DATE CREATED AUTHOR 01/29/2023 [facility] pital DATE CREATED AUTHOR AUTHOR'S ORGANIZ ATION 04/15/2024 [facility] DATE CREATED AUTHOR AUTHOR'S ORGANIZ ATION 04/19/2024 [facility] DATE CREATED AUTHOR AUTHOR'S ORGANIZ ATION 2024 [facility] DATE CREATED AUTHOR AUTHOR'S ORGANIZ ATION 06/01/2024 [facility] DATE CREATED AUTHOR AUTHOR'S ORGANIZ ATION 07/19/2024 [facility] FOR RECORDS PERTAINING TO PATIENTS WHO ARE [...] BE BASED ON THE PRIMARY CLINICAL RECORDS. [employer] provides no warranty or guarantee of the accuracy or completeness of information in this document.
[2024-07-28 15:57] VITALS: TEMP 36.6
[2024-07-28 15:58] VITALS: BP 114/65; PULSE 96
[2024-07-28 16:10] LABS: Bilirubin Urine NEGATIVE (NEGATIVE); Blood Urine TRACE-I (NEGATIVE); Clarity Urine CLEAR (CLEAR); Color Urine LT. YELLOW (YELLOW); Glucose Urine UA NEGATIVE (NEGATIVE); Ketones Urine NEGATIVE (NEGATIVE); Leukocyte Esterase Urine SMALL (NEGATIVE); Nitrite Urine NEGATIVE (NEGATIVE); Protein Urine NEGATIVE (NEG/TRACE); pH Urine 6.5 (5.0-9.0)
[2024-07-28 16:15] LABS: Urine Microscopic Indicated YES
[2024-07-28 16:20] LABS: Bacteria Urine SMALL #/HPF (NONE SEEN); Cast Seen? NONE SEEN #/LPF (NONE SEEN); Crystals Seen? None Seen #/HPF (None Seen); Mucus Urine TRACE (NONE SEEN); Squamous Epithelial Cell Urine MODERATE #/LPF (NONE/RARE); Urine Culture Indicated YES
[2024-07-28 16:21] LABS: Amnisure NEGATIVE (NEGATIVE); Internal Control Within Normal Limits
== END 2024-07-28 16:55 | disposition home or self-care (01) ==
LOC: FBC 15:43
PROVIDERS: Admitting Provider Obstetrics & Gynecology; Visit Provider Obstetrics & Gynecology
DX: O36.8190 Decreased fetal movements, unspecified trimester, not applicable or unspecified (principal); O26.899 Other specified pregnancy related conditions, unspecified trimester; R10.9 Unspecified abdominal pain; Z03.71 Encounter for suspected problem with amniotic cavity and membrane ruled out; Z3A.00 Weeks of gestation of pregnancy not specified
CPT/HCPCS: 59025; 81001; 84112; 87086; G0378; G0379

== ENCOUNTER 2024-08-16 18:28 | Outpatient (REF) | payer BC, OTHER, SELFPAY ==
--- OUTSIDE RECORDS SUMMARY | 2024-08-16 18:34 | XMS_ITS | CCD ---
Author Organization [facility] Care Team Providers Care Integrated Circuit Ic Layout Designer Name Role Phone Kirstin Hernandez Unavailable David, DO [place] Primary Care Provider DO Donavon Yanes Attending Provider [phone] David, DO [place] Primary Care Provider DO Donavon Yanes Attending Provider David, DO [place] Primary Care Provider DO Donavon Yanes Attending Provider UNA Childs Attending Pr ovider [facility] Primary Care Provider [phone] DO Kirstin Hernandez Primary Care Provider DO Kirstin Hernandez Primary Care Provider UNA Childs Attending Pr ovider [facility] Primary Care Provider UNA Chilsd Attending Pr ovider [facility] Primary Care Provider [phone] KEILA .DR ZARATE Attending Unavailable DAVID, DR FULTON Primary Care Unavailable KEILA ., DR ZARATE Admitting Unavailable KEILA ., DR ZARATE Attending Unavailable DAVID, DR FULTON Primary Care Unavailable KEILA ., DR ZARATE Admitting Unavailable KEILA ., DR ZARATE Admitting Unavailable KEILA ., DR ZARATE Attending Unavailable DAVID, DR FULTON Primary Care Unavailable KEILA ., DR ZARATE Consulting Unavailable LEATHA MAIER Consulting Unavailable RUSSELL SRIVASTAVA Consulting Unavailable KEILA ., DR ZARATE Attending Unavailable GIRVIN, DR [place]ON Primary Care Unavailable KEILA ., DR ZARATE Admitting Unavailable KEILA ., DR ZARATE Attending Unavailable GIRVIN, DR [place]ON Primary Care Unavailable KEILA ., DR ZARATE Admitting Unavailable KEILA ., DR ZARATE Attending Unavailable GIRVIN, DR [place]ON Primary Care Unavailable KEILA ., DR ZARATE Admitting Unavailable KEILA ., DR ZARATE Attending Unavailable GIRVIN, DR [place]ON Primary Care Unavailable KEILA ., DR ZARATE Admitting Unavailable KEILA ., DR ZARATE Attending Unavailable KEILA ., DR ZARATE Consulting Unavailable GIRVIN, DR [place]ON Primary Care Unavailable KEILA ., DR ZARATE Admitting Unavailable GIRVIN, DR FULTON Admitting Unavailable GIRVIN, DR FULTON Attending Unavailable GIRVIN, DR F[place]ON Primary Care Unavailable KEILA ., DR ZARATE Consulting Unavailable KEILA ., DR ZARATE Admitting Unavailable KEILA ., DR ZARATE Attending Unavailable GIRVIN, DR [place]ULTON Primary Care Unavailable HUMPHREY HOLLAND Admitting Unavailable GIRVIN, DR FULTON Primary Care Unavailable HUMPHREY HOLLAND Attending Unavailable HUMPHREY HOLLAND Consulting Unavailable CHAU PRIMITIVO Consulting Unavailable GIRVIN, DR FULTON Primary Care Unavailable KEILA ., DR ZARATE Admitting Unavailable KEILA ., DR ZARATE Attending Unavailable [facility] ider UNA Childs Attending Pr ovider UNA Jang Attending Provider [phone] [facility] ider UNA Childs Attending Pr ovider UNA Jang Attending Provider [phone] JEAN CLAUDE Jang-C Raeann Primary Care Provider Yovany Crawley MD Primary Care Provider Jing FORESTRY FACULTY MEMBER, Raeann Unavailable JEAN CLAUDE Jang-C Raeann Primary Care Provider HEIDI Quach Attending Provider [phone] Clarisa MIKE Attending Unavailable DO Andrzej Grace Attending Provider Jing Raeann M Primary Care Unavailable UNA Templeton Attending Unavailable UNA Templeton Admitting Unavailable Tyler Armstrong Admitting Unavailable Armstrong, Tyler L Primary Care Unavailable Armstrong Tyler L Attending Unavailable Warchol, Raeann Attending Unavailable Warchol, Raeann Admitting Unavailable Warchol, Raeann Primary Care Unavailable Visci Andrzej Admitting Unavailable Visci, Andrzej Attending Unavailable Warchol, Raeann Primary Care Unavailable Warchol, Raeann Attending Unavailable Warchol, Raeann Admitting Unavailable Warchol, Raeann Primary Care Unavailable Warchol, Raeann Attending Unavailable Warchol, Raeann Admitting Unavailable [facility] Primary Care U navailable LaGinny adam Admitting Unavailable Lause, Ginny Theodora Attending Unavailable Warchol, Raeann Primary Care Unavailable WARCHOL, RAEANN Attending Unavailable WARCHOL, RAEANN Attending Unavailable WARCHOL, RAEANN Referring Unavailable JOSHIESME Attending Unavailable ESME JOSHI Referring Unavailable WARCHOL, RAEANN Attending Unavailable JHONATHAN PEDRAZA Attending Unavailable JHONATHAN PEDRAZA Attending Unavailable GINNY QUACH R Attending Unavailable ROHAN CHAUHAN Attending Unavailable KEILAGHAZALAY Attending Unavailable MARU, RAEANN Attending Unavailable MARU, RAEANN Attending Unavailable JHONATHAN PEDRAZA Attending Unavailable Allergies Allergy Classification Reported Allergen(s) Allergy Type Date of Onset Reaction(s) Facility (10 sources) Citalopram Drug Allergy headaches, upset GI [employer] Other (1 source) Citalopram Drug Allergy 3 [facility] Repository Medications Current Medications Medication Drug Class(es) Dates Sig (Normalized) Sig (Original) [id number] 200 actuat albuterol 0.09 mg/actuat metered dose [...] Active docusate sodium 100 mg oral capsule (19 sources) Start: 01-02-2022 take 1 capsule by [...] 2023 12:00am metoclopramide 10 mg oral tablet (12 sources) Dopamine-2 Receptor Antagonist Start: 07-04-2024 End: 08-16-2024 metoclopramide (Reglan) 10 MG tablet Indications: Nausea Take 1 tablet (10 mg) by mouth in the morning and 1 tablet (10 mg) at noon and 1 tablet (10 mg) in the evening. Take before meals. Take 1 tablet by mouth 30 minutes prior to meals 3 times daily as needed for nausea.. 90 tablet 2 07/04/2024 08/16/2024 Discontinued MiraLax 17 GM/SCOOP (6 sources) Start: 01-02-2022 MiraLax 17 GM/SCOOP 1 capful in 10 oz of water Orally daily Dec, Active Multivitamin preparation (6 sources) take 1 tablet by mouth once daily Multi Vitamin - 1 tablet Orally Once a day Active omeprazole 20 mg delayed release oral capsule (14 sources) Proton Pump Inhibitor Start: 07-04-2024 End: 08-16-2024 take 1 capsule by mouth before mealtime omeprazole (PriLOSEC) [address] capsule Indications: Gastroesophageal Reflux Disease , Heartburn Take 1 capsule (20 mg) by mouth in the morning. Take before meals. Do not crush or chew.. 30 capsule 3 07/04/2024 08/16/2024 Discontinued Start: 09-15-2022 omeprazole (Pr iLOSEC) [address] capsule 1 (one) time each day at the same time 0 09/15/2022 Active polysaccharide iron complex 391 mg oral capsule (5 sources) Start: 08-03-2024 End: 09-02-2024 take 1 capsule by mouth once daily iron polysaccharides (ProFe) 391.3 (180 Fe) MG capsule Indications: Other iron deficiency anemia Take 1 capsule (391.3 mg) by mouth Daily 30 capsule 6 08/03/2024 09/02/2024 Active Vit w/Kd-Jjydolyeh-KM (PNV PO) (13 sources) Vit w/Mk-Amprmgqfq-SO (PNV PO) Take by mouth Active Completed/Discontinued Medications Medication Drug Class(es) Dates Sig (Normalized) Sig (Original) azithromycin 250 mg oral tablet (7 sources) Macrolide Antimicrobial Start: 12-08-2021 Zithromax Z-Rikki 250 MG 2 tablet on the first day, then 1 tablet daily for 4 days Orally Once a day for 5 day(s) Nov, Not-Taking cefTRIAXone (8 sources) Cephalosporin Antibacterial Start: 11-09-2014 Rocephin 500 mg 20 Feb, 2015 1 grm cephalexin 500 mg oral capsule [...] [Anxiety] Onset: 1 Resolved: 1 Chronic Asthma (15 sources) Uncomplicated mild persistent asthma; Translations: [Mild persistent asthma, uncomplicated] Onset: 3 07-19-2023 Chronic Attention-deficit, conduct, and disruptive behavior disorders (20 sources) Attention deficit hyperactivity disorder; Translations: [Attention-deficit hyperactivity disorder, unspecified type] Onset: 3 Resolved: 3 10-21-2023 Chronic Attention-deficit, conduct, and disruptive behavior disorders (7 sources) Attention-deficit hyperactivity disorder, unspecified type; Translations: [ADHD (attention deficit hyperactivity disorder) F90.9] Onset: 1 Resolved: 2 Chronic Deficiency and other anemia (2 sources) Iron deficiency anemia; Translations: [Other iron deficiency anemias] 08-03-2024 Episodic Headache; including migraine (10 sources) Migraine; Translations: [Migraine, unspecified, not intractable, without status migrainosus] Chronic Malaise and fatigue (15 sources) Fatigue; Translations: [Chronic fatigue, unspecified] Onset: [...] 2 Resolved: 2 Chronic Other endocrine disorders (15 sources) Hypoglycemia; Translations: [Hypoglycemia, unspecified] Onset: 3 [...] skin] Episodic Other and delivery including normal (8 sources) Third trimester ; Translations: [Encounter for [...] [32 weeks gestation of ] 07-18-2024 Episodic Residual codes; unclassified (2 sources) Gestation period, 34 weeks; Translations: [34 weeks gestation of ] 08-03-2024 Episodic Residual codes; unclassified (2 sources) Gestation period, 36 weeks; Translations: [36 weeks gestation of ] 08-16-2024 Episodic Unclassified (1 source) Acute cough; Translations: [...] Onset: 03-10-2022 Resolved: 03-10-2022 Episodic Menstrual disorders (16 sources) Missed period; Translations: [Irregular menstruation, unspecified] Onset: 07-20-2023 Resolved: 08-27-2023 08-27-2023 Chronic Mood disorders (15 sources) Mood disorders Onset: 10-21-2023 10-21-2023 Nonspecific chest pain (2 sources) Chest pain, unspecified Onset: 03-10-2022 Resolved: 04-10-2022 Episodic Other aftercare (2 sources) Other senior living (current) drug therapy Onset: 09-03-2021 Resolved: 01-02-2022 [...] Range Facility Urinalysis macro (dipstick) panel (U)on 08-16-2024 Bilirubin, UA Negative Negative - 4(70) +++ mg/dL [facility] Healthcare Blood, UA Negative Negative - 50 Brandon/mcL [facility] Clarity, UA Clear [facility] Color, UA Yellow [facility] Glucose, UA Negative Negative - 2000(110) ++++ mg/dL [facility] Interpretation and review of laboratory results Abnormal [facility] Ketones, UA Negative Negative - 160(16) ++++ mg/dL [facility] Leukocytes, UA Positive Negative - 500+++ Phil/mcL [facility] Comment on above: small Nitrite, UA Negative Negative - Positive [facility] pH, UA 6.5 5 - 9 [facility] Protein, UA Negative Negative - 1999(20) ++++ mg/dL [facility] Spec Grav, UA 1.02 1 - 1.03 [facility] Urobilinogen, UA 0.2 0.2 - 12 mg/dL [facility] Urinalysis macro (dipstick) panel (U)on 08-03-2024 Bilirubin, UA Negative Negative - 4(70) +++ mg/dL [facility] Blood, UA Negative Negative - 50 Brandon/mcL [facility] Clarity, UA Clear [facility] Color, UA Yellow [facility] Glucose, UA Negative Negative - 1999(110) ++++ mg/dL [facility] Interpretation and review of laboratory results Normal [facility] Ketones, UA Negative Negative - 160(16) ++++ mg/dL [facility] Leukocytes, UA Negative Negative - 500+++ Phil/mcL [facility] Nitrite, UA Negative Negative - Positive [facility] pH, UA 5.5 5 - 9 [facility] Protein, UA Negative Negative - 1999(20) ++++ mg/dL [facility] Spec Grav, UA 1.025 1 - 1.03 [facility] Urobilinogen, UA 1.0 0.2 - 12 mg/dL [facility] Urinalysis macro (dipstick) panel (U)on 07-18-2024 Bilirubin, UA Negative Negative - 4(70) +++ mg/dL [facility] Blood, UA Negative Negative - 50 Brandon/mcL [facility] Clarity, UA Clear [facility] Color, UA Yellow [facility] Glucose, UA Negative Negative - 1999(110) ++++ mg/dL [facility] Interpretation and review of laboratory results Normal [facility] Ketones, UA Negative Negative - 160(16) ++++ mg/dL [facility] Leukocytes, UA Negative Negative - 500+++ Phil/mcL [facility] Nitrite, UA Negative Negative - Positive [facility] pH, UA 6.5 5 - 9 [facility] Protein, UA Negative Negative - 1999(20) ++++ mg/dL [facility] Spec Grav, UA 1.025 1 - 1.03 [facility] Urobilinogen, UA 0.2 0.2 - 12 mg/dL [facility] ALL CBC WITH AUTO DIFFon BASOPHILS ABSOLUTE AUTO 0 [facility] Basophils/100 WBC (Bld) 0.3 % 0.2 - 2.0 % [facility] Eosinophils/100 WBC (Bld) 1.2 % 0.9 - 7.0 % [facility] Erythrocyte distribution width (RBC) [Ratio] 12.4 % 11.0 - 15.0 % [facility] Hematocrit (Bld) [Volume fraction] 30.7 % Low 36.0 - 48.0 % [facility] Hemoglobin (Bld) [Mass/Vol] 10.3 g/dL Low 12.0 - 16.0 g/dL [facility] IMMATURE GRANULOCYTES ABS AUTO 0.21 High [facility] Immature granulocytes/100 WBC (Bld) 1.7 % High 0.0 - 0.5 % [facility] Interpretation and review of laboratory results Abnormal [facility] LYMPHOCYTES ABSOLUTE AUTO 2.4 [facility] Lymphocytes/100 WBC (Bld) 19.3 % Low 20.5 - 60.0 % [facility] MCH (RBC) [Entitic mass] 30.9 pg 26.7 - 34.0 pg [facility] MCHC (RBC) [Mass/Vol] 33.6 g/dL 29.9 - 35.2 g/dL [facility] MCV (RBC) [Entitic vol] 92.2 fL 81.0 - 99.0 fL [facility] MONOCYTES ABSOLUTE AUTO 0.9 High N [facility] Monocytes/100 WBC (Bld) 7 % 1.7 - 12.0 % [facility] NEUTROPHILS ABSOLUTE AUTO 8.7 High [facility] Neutrophils/100 WBC (Bld) 70.5 % 43.0 - 75.0 % [facility] Platelet mean volume (Bld) [Entitic vol] 10.2 fL 9.5 - 13.5 fL [facility] TBH EO # 0.2 [facility]H PLT 256 [facility] TB RBC 3.33 Low [facility]H WBC 12.3 High [facility] Urinalysis macro (dipstick) panel (U)on 07-04-2024 Bilirubin, UA Negative Negative - 4(70) +++ mg/dL [facility] Blood, UA Negative Negative - 50 Brandon/mcL [facility] Clarity, UA Clear [facility] Color, UA Yellow [facility] Glucose, UA Negative Negative - 1999(110) ++++ mg/dL [facility] Interpretation and review of laboratory results Normal [facility] Ketones, UA Negative Negative - 160(16) ++++ mg/dL [facility] Leukocytes, UA Negative Negative - 500+++ Phil/mcL [facility] Nitrite, UA Negative Negative - Positive [facility] pH, UA 6 5 - 9 [facility] Protein, UA Negative Negative - 1999(20) ++++ mg/dL [facility] Spec Grav, UA 1.015 1 - 1.03 [facility] Urobilinogen, UA 0.2 0.2 - 12 mg/dL [facility] Coding Summaryon 05-30-2024 Coding Summary HTMLBase 64 RgojvbizOCo0sTq+PGhlYWQ+PE 7SPHCeU86rbPTaiS3mU7NTVBnA HweoYCXIREaDBjSgvcHeYB0lwZ NjZXJu IC8+LY7uZHAdOjnayKGsp6N6jP J4K27zob5vTAnvjYN5ENCmYfNa ecvhx6tdrUl2ETrlGsvvRqHp PICodI83HRT6dO64Pi12jIVnuE Hvz5ufrRa7GpNsPCSqIHO3tSan TSzxk7ZcSPDrG74upUKec8G1 DIEwuGhtyGZnFbGvjKV9aF1dHE axgfono9bvptypZmc8fh44lSFi f2Q8uBD8B8IpfdH0XAJraUGp OdjnlZNIgZ6gjghfn0oumxusOf OpRIUqCQd1MLa8RTQooXgtOoDu ZX39NJF1VQYkqwMlR0ZmPWJt nTjwKkF0f3R1Yw9ZQ9EZWysqE3 VNTUFSWTwvdGQ+PO87vz20W0Tx XoujXkf5WPEpSKX0tJC5rY3p UPEnNNtfg4Y1hLK1B0DpadIjco 8iv2pcHWVsNTueK44ynWYow8A3 JEZmaJP5YQKvqMkrTjRmwK99 Oyc+YNOdxChpv3EcDczoq8nzv0 lcbVo2MrfxHRIsmjFfcSepFXF7 p1TnRf7sRYAcmUH5jPR6eM6m KnQmMpD9HMvgH069BcNctSZwOz vgH81wI4KwkQL+YMApXdi5GLSn iPazYJ2zW7AiNADsywvjhDSf eOtbKO6kXPGzisalOGKwmU0qRV YvJ4t5DgGnNwY0WMzlM9BhXJId amypTx61sJ6xFyUnJaZ7VEgo U1RyjqM5EHPfyBYcAXwfVFB2K4 4ve7I7OOGvGSOqMQB2xGK3hD2f bGlnbjogbGVmdDsgdmVydGlj OYrvNXqmU935JFLbnPrdPvYyJB luZyBEYXRlOiAgMDkvMTAvMjAy NDwvdGQ+MIVxEAC5uFjyYWTa hLJgTMitIm1dmHkqdOqwCQ2nJG PvimheDHSnxB6dQSUjgQBorJsf QU8tDZBssjixs313ZhXjFNW6 XLEwqPXvL6UdjW4dZrOsPZAoNM WfH4BxbRTwKSotN123EXnaMbP6 GYGjpwVaL3LrCNTvbMqmVmQ1 s4A8Za6Zj5UiqxyrS5ZgbEZwBq UuDfgvZIj6R1KhVmdlnNH+PC90 MAFhYQ76MYj4ZKO4qQvnURre DLJrC9XolO3kFmCoZGPfQACsVp c+PHRhYmxlIHdpZHRoPScxMDAl DcRndXrgTV8rZq2aOZUmHLRc xNatqDKuBsHzd2viVHHcGYxyXE 0htIliD6QmpXF6VFTva0p0Gi65 U40rD9YveJG+KTLypPQ1bSE2 jX9aFwMmWvC8YLszP300OcPnfH LzKezsb4cnx9dynLs3LfZ5FAZj ipPujTjbZAS3l1BsVu46W09u IHdpZHRoPSIxNSUiIHZhbGlnbj 2heE6dIt1+MCPidPY8gJA5fA2u FvCeMqR4IGgsF551FqFqyTAt Xsxst5psr9cbwNg3KtCqKVUuny NepCouOGB7d2OxOi84V4SsdWcm t4NmXll7qc55jPKfg6M8dTZ1 M6BqZVHbnajunFUfcPqlKF8sCG NxcwfqXTGiwP0nWEMgI8b3FaXe FjY8NUnwZ3WqdkR6IKYczVNh JLLuxXTThV6khlhbh2uaodzoGq QtSESvVRp7TEg9WJAhmWnaIcMl OSB6FjB3JYH5aVLoiP3bpMzv odennJ8kZus+CJI4sTDosKARCN 1lOjwvdGQ+KRLhQZD4uHlwIPhu RQRnnJ2rFZUvB2c2NrBkRrP5 QMvxZ2UruuO7PYBtaZZcZRYcmL TMkS9dbyszq6lhckdrRuFxBZIs KVn8HIf9NIDfrTeoYeRbKJZ5 ZnM7JBB5vBManW1hePcgfyghfC 9wOyc+EnrniZcxRPP6WNg8V8Np Dku7XTTtcIqqPN4cmIMjIHrj Up8pqIeufGwwTQ1lBZWeaabvf1 59DgPwj4psMRMriMWcFHjwBZO6 P49hx0Y6FLMqYWIzQFO2bNX9 hN0azWguoafnzXAtqYbmyeKcnB fdXRijAZadN466LZVodQajDxRq ZDf0I5QrQsa4HGQdoTbhIX2p gTFuLUlsLy3upWpwzTloZC6sFD Dleulqi552HjHqw7snSRUlvISo CKyjCPR5W93lf7T2ECXsMWDa RAF3jZV7xH8fnVodludleDZpkF bajdPcdDpoKKswSJbzT635CKOx eCkbSfEzdGx2J3AoLhr9VYPt hApjOK8hmHTeDEzjTn9wwYpvoE pgVP0bVJXwwbspu477GlYki5kd JDAilCDnKIjfYEJ4Y36vl9E8 PISxEVEoUZB1uXI3rZ0xeXctlw ogbGVmdDsgdmVydGljYWwtYWxp B586DKLliHyzHuIwxDnzvdUd NQysKIq2R2CpJgosiOS+PC90YW TuPV15yOMxiZMdi1uggMn7OeSp BQJoJGU8rVocCAerh3VhJJXq V29xqFQtp0R0AOSsaWnfwTSsTr BweXX7rQ1eHVffxahpd2cmsehg Trzwj7pnag01eY05V63lALhe YCHeLAEhDKSzPYIyzWezou1ovU 9wIi8+JNMwlFN0iWU8gC3iSAEe HaW5DPcuA163IlTqdDBiFsyc x8brb7scyUr5WmP1QEAqabDqlZ djHXT8i4EyUq44L01bRLmhZSGg ILIyVMHbXMJayNnrqf0ruS8r Ii8+RSDltXS9dDY5xM8oCrDgQc V7FPziA321ChGdvFPgQhdnQ28y F7AhxHJ+HGIcNub2RRBukIxr DE3loKPzTDlrBi5zNKD7NgJnVy WjMDazG3NgMBVqmokfuyxrqIG7 DPOgBGWsmQ19Tu3jqWaqIXFe zZNCeR2vlcuir9shuuknRiPzTM YrOIv4GYc6GVJpgWwoOeSmVDQ2 TfE4PRX5mFPmmP6toDeyvtzb gW0kZ2LvDPKwwuwfQv37sX9oYf EfFdW6IQkpHjv+Yz4XMXboS6CS VExZTiBMRUlHSDwvdGQ+PHRk ROC3kCndOYxsMKGkaP2wYDSwE9 b9EnDeSiH3BMzeH0LkNDIzllee Xy54jE6yKzNgRdE2XBafH8Ya xdO8TZVpsXPtRHydFNL7H69cj1 E4OLIkXWUxATC1hJH3nT4yjFza bjogbGVmdDsgdmVydGljYWwt XNlqA191XUJabSjgOkH4LmUkSo S0OYe1W1WnSgl6SSGqvQfwFN1o uQBnFVnkLz7bfPquoSvfRX7c UYDnmtrvAMNsgA5hXELzbBPlfH ruPK3tKSBokyafz014QoIsGEJ6 TGLzbSDyZ3EmiU8tPsSvUDVt LONoS5WytXJvUNkiV781XBerPl S2KDDpbrZpY8CrQXLchRxtLxZ9 u2E1Yw3jPMAOUJJfcfvmnJG+ SEJsVLD9aAqjZArsKCDllY9iBR KzL0l8MaGlAfD4VNpcI1UqOMYp uceqOm04cW0mOpPmJqA4AUpi D5BoytL4VEXftDDmHIopWHV3T5 0vd8S3TMUvRFGdYJH3lNT3kI4a bGlnbjogbGVmdDsgdmVydGlj MRzpPGwzP264GJHrqUyvEkPAEH FMRTwvdGQ+IKGwVKD3hAfdVFqt LEIdbM1lAAAzF1t5MtBzTbM7 UUmoU1BjLZSkvojyVz46gX8tIk XuOwU1CNbsV1KyhaU1PPEctXMy NOgmPJL9N39tg1V2UZNvRRHx UKK5tRI1wH4kqKcvgifhuSLasJ vnirBpbEyzNKdcPMjrU846DBFu rKzqIz3LRT31BQ20R8QaLvkb dGFibGU+PHRhYmxlIHdpZHRoPS tjTMGeTzVocLibBH9cMo5pRLPz KLUtgCqgtKHzLnIzj1ioLFJg ATwmLZ7ipZxrI7TtzKW5GNUsr8 g7At85I33tC7RyaOD+PGNvbCB3 zRI7dR2oWvWtPiF0EEioY990 PhTdlGIsZfchz8qwo2oqrHz9Ii NrWLCmjvOcsPraBNB5q0YzJf76 Q16fQEzfPAGvIWGlPUFnATUg vHcxur9bbV3lKe9+IMUamLZ9dP Y1uQ2nYhJrGzN4KKywV271SyNb zEIiIkdtS12wJ4MdhHA+PHRy Djm6CEFxpLcoBG0jbTLnCDraKl 4mSXK4OgOfVoZjTAroH7XyLEOk gabasompgRQ2MQZpIYJdmR41 As2qnCbdKv2kRCBkSWU5NFSsrB RlB6DicC7qRsLgWAXgMUWlL6Ca kUQdDXyhF018QPicPbN4PJBj zrBiT2EqOVRgsKdpSzR5s4C3Sl 0DfJvsdPVkFK5jMaLlMOm3Q1Kh Mlf9YHFmhBvgVB2nnTNlZDgx Ew3vmLonzXhgZL9hAATejarlr1 68JnUfq9kvQEYafIMeILxtLWT2 B22nq0C5MFYyFVEcVPO8mPT6 yU7fnOmopkdybXSvhVufgwVwiK guZOgjPTghJ787SIYklOpqAoCV Qbl2R3ZnLjx9FGOieMftIQ2v xVJiXYtbWl8awCcoeKgeIA9nEI Khoigyn013WjHke1ucNKRkjQUx YVvzQPC7B55jg3I8ACPuEIAi VAN6jEM7yS8gpWuitqorxPCnqN hmgqWumSnaIXfeRVzxG980WHZu wGhvBu5BAwo0P9JwZea8EHTw nUmdON9wyGKbTOwwZt8daZxnyT psPW6pBYLejlipg812JmDsu3hr TTIksCNeEShsEMF0H85et5U6 FXYcDFIhMSO3oWC4oB3ooGxqpt ogbGVmdDsgdmVydGljYWwtYWxp W481QTMrnQkiVcDniUPyNwas dGQ+CX88no58X2WgZhzaPyw7GD OjICY4sMS6cJ3hEEQfECmdj3B7 jDL3A7MdohRpaa6cj9anFYLo ZTo (more content not included)... Normal [facility] Bacteria [Presence] in Urine by AutomatedOrdered By: Andrzej Grace on 05-23-2024 Bacteria Auto Ql (U) 1+ [HPF] High None Seen [facility] Bilirubin Test strip Ql (U)O rdered By: Andrzej Grace on 05-23-2024 Bilirubin Ql (U) Negative Negative [facility] Color of Urine by AutoOrdere d By: Andrzej Grace on 05-23-2024 Color (U) Light-yellow Normal Yellow [facility] Comment on above: Order Comment: Name Collection Type:: Clean-Voided Midstream Performed By: #### A DDONUAPLUS #### [address] Crystals.amorphous [Presence ] in Urine by Computer assisted methodOrdered By: Andrzej Grace on 05-23-2024 Crystals.amorphous Computer assisted Ql (U) 1+ [HPF] [facility] Dipstick and Microscopicon 0 05-23-2024 Amorphous Crystal,Urine 1+ Normal T he [facility] Comment on above: Order Comment: Name Collection Type:: Clean-Voided Midstream Performed By: #### A DDONUAPLUS #### [place] [address] [place] Bacteria,Urine 1+ High None Seen [facility] Comment on above: Order Comment: Name Collection Type:: Clean-Voided Midstream Performed By: #### A DDONUAPLUS #### [place] [address] [place] Bilirubin,Urine Negative Normal Negative [facility] Comment on above: Order Comment: Name Collection Type:: Clean-Voided Midstream Performed By: #### A DDONUAPLUS #### [address] Glucose Ql (U) Normal Normal Normal [facility] Comment on above: Order Comment: Name Collection Type:: Clean-Voided Midstream Performed By: #### A DDONUAPLUS #### [place] [address] [place] Hyaline Casts,Urine None Normal 0-8 [facility] Comment on above: Order Comment: Name Collection Type:: Clean-Voided Midstream Performed By: #### A DDONUAPLUS #### [place] [address] [place] Mucus,Urine Rare Normal [facility] Comment on above: Order Comment: Name Collection Type:: Clean-Voided Midstream Result Comment: PERF ORMED BY: [place] [address] PATHOLOGIST BARTENDERS SADAF YOUNGBLOOD M.D. Performed By: #### A DDONUAPLUS #### [place] [address] [place] Nitrite,Urine Negative Normal Negative [facility] Comment on above: Order Comment: Name Collection Type:: Clean-Voided Midstream Performed By: #### A DDONUAPLUS #### [address] Occult Blood,Urine Negative Normal Negative [facility] Comment on above: Order Comment: Name Collection Type:: Clean-Voided Midstream Result Comment: PERF ORMED BY: [place] [address] PATHOLOGIST BARTENDERS SADAF YOUNGBLOOD M.D. Performed By: #### A DDONUAPLUS #### [place] [address] [place] Protein,Urine Negative Normal Negative [facility] Comment on above: Order Comment: Name Collection Type:: Clean-Voided Midstream Performed By: #### A DDONUAPLUS #### [place] [address] [place] RBC,Urine 1-2 Normal 0-4 [facility] Comment on above: Order Comment: Name Collection Type:: Clean-Voided Midstream Performed By: #### A DDONUAPLUS #### [place] [address] [place] Specific[place],Urine 1.013 Normal 1.00 1-1.03 0 [facility] Comment on above: Order Comment: Name Collection Type:: Clean-Voided Midstream Performed By: #### A DDONUAPLUS #### [place] [address] [place] Squamous Epithelial Cell,Urine 10-19 High 0-2 [facility] Comment on above: Order Comment: Name Collection Type:: Clean-Voided Midstream Performed By: #### A DDONUAPLUS #### [place] [address] [place] Urobilinogen,Urine Normal Normal Normal [facility] Comment on above: Order Comment: Name Collection Type:: Clean-Voided Midstream Performed By: #### A DDONUAPLUS #### [place] [address] [place] WBC,Urine 3-4 Normal 0-4 [facility] Comment on above: Order Comment: Name Collection Type:: Clean-Voided Midstream Performed By: #### A DDONUAPLUS #### [facility] [address] [id number] [facility] Epithelial cells.squamous [# /area] in Urine sediment by Automated countOrdered By: Andrzej Grace on 05-23-2024 Epithelial cells.squamous Auto (Urine sed) [#/Area] 10-19 [HPF] High 0-2 [facility] Erythrocytes [#/area] in Uri ne sediment by Automated countOrdered By: Andrzej Grace on 05-23-2024 RBC Auto (Urine sed) [#/Area] 1-2 [HPF] 0-4 [facility] Fibronectinon 05-23-20 24 Fibronectin Negative Normal Negative [facility] Comment on above: Order Comment: Comme nt patients 22 - 34 6/7 weeks prior to vaginal exam Result Comment: PERF ORMED BY: [place] [address] PATHOLOGIST BARTENDERS SADAF YOUNGBLOOD M.D. Performed By: #### L IPID, B12, FOL, T4F, TSH3, FSH, [id number], CMP, MG, FE and TIBC, SAKINA, CRP #### [facility] [address] [place] [address] fibronectinOrdered By: Andrzej Grace on 05-23-2024 Fibronectin. (Vag fld) [Mass/Vol] Negative Negative [facility] Glucose [Mass/volume] in Uri ne by Test stripOrdered By: Andrzej Grace on 05-23-2024 Glucose Test strip (U) [Mass/Vol] Normal mg/dL Normal [facility] Hemoglobin Test strip Ql (U) Ordered By: Andrzej Grace on 05-23-2024 Hemoglobin Ql (U) Negative Negative [facility] Hyaline casts [#/area] in Ur ine sediment by Automated countOrdered By: Andrzej Grace on 05-23-2024 Hyaline casts Auto (Urine sed) [#/Area] None [LPF] 0-8 [facility] Ketones [Presence] in Urine by Test stripOrdered By: Andrzej Grace on 05-23-2024 Ketones Ql (U) Negative Normal Negative [facility] Comment on above: Order Comment: Name Collection Type:: Clean-Voided Midstream Performed By: #### A DDONUAPLUS #### [facility] [address] Leukocyte esterase [Presence ] in Urine by Test stripOrdered By: Andzrej Grace on 05-23-2024 Leukocyte esterase Test strip Ql (U) Negative Normal Negative [facility] Comment on above: Order Comment: Name Collection Type:: Clean-Voided Midstream Performed By: #### A DDONUAPLUS #### [facility] [address] Leukocytes [#/area] in Urine sediment by Automated countOrdered By: Andrzej Grace on 05-23-2024 WBC Auto (Urine sed) [#/Area] 3-4 [HPF] 0-4 [facility] Mucus [Presence] in Urine by AutomatedOrdered By: Andrzej Grace on 05-23-2024 Mucus Auto Ql (U) Rare [LPF] [facility] Nitrite Test strip Ql (U)Ord ered By: Andrzej Grace on 05-23-2024 Nitrite Ql (U) Negative Negative [facility] Protein Test strip (U) [Mass /Vol]Ordered By: Andrzej Grace on 05-23-2024 Protein (U) [Mass/Vol] Negative Negative [facility] Specific gravity Test strip (U) [Rel density]Ordered By: Andrzej Grace on 05-23-2024 Specific gravity (U) [Rel density] 1.013 1.001-1.03 0 [facility] Urine appearanceOrdered By: Andrzej Grace on 05-23-2024 Appearance (U) Cloudy Critically abnormal Clear [facility] Comment on above: Order Comment: Name Collection Type:: Clean-Voided Midstream Performed By: #### A DDONUAPLUS #### [facility] [address] Urobilinogen Test strip (U) [Mass/Vol]Ordered By: Andrzej Grace on 05-23-2024 Urobilinogen (U) [Mass/Vol] Normal mg/dL Normal [facility] pH of Urine by Test stripOrd ered By: Andrzej Grace on 05-23-2024 pH (U) 6.5 [pH] Normal 5.0-9.0 [facility] Comment on above: Order Comment: Name Collection Type:: Clean-Voided Midstream Performed By: #### A DDONUAPLUS #### [facility] [address] [place] [address] [facility] ED Clinical Summaryon 2023 ED Clinical Summary [facility] ? Urgent Care [address] [place], [place] [id number] Clinical Summary PERSON INFORMATION Name: LE ROCHA Age: 23 Years Sex: FEMALE : 2000 MRN: Acct#: Visit Reason: UC - Dental Pain; DENTAL PAIN Arrival: 05/22/2024 13:14:06 Discharge: 05/22/2024 14:17:00 LOS: 000 01:03 Check In: 05/22/2024 13:14:06 Checkout: 05/22/2024 14:17:00 Address: [address] [place] [address] PCP: Raeann Jang MSN ADMINISTRATIVE FELLOW PROVIDER INFORMATION Provider Role Assigned Unassigned Yon [...] Home PATIENT EDUCATION INFORMATION Instructions: Dental Pain, Meim-xx-Resq; Dental Pain, Otwl-kd-Fzyl Follow-Up: With: Address: When: Raeann Jang MSN ADMINISTRATIVE FELLOW [address] [place] [address] Within 3 to 5 days [...] understanding of instructions given Comment: Normal [facility] ED Patient Summaryon 024 ED Patient Summary [facility] ? Urgent Care [address] [place] [address] PATIENT DISCHARGE INSTRUCTIONS Patient Information Name: LE ROCHA Age: 23 Years Date of : 2000 Reason For Visit: UC - Dental Pain; DENTAL PAIN Arrival Time: 05/22/2024 13:14:06 Primary Care Physician: Raeann Jang MSN ADMINISTRATIVE FELLOW Attending Physician: Yon Templeton CNP Comment: Patient Education With: Address: When: Raeann Jang MSN ADMINISTRATIVE FELLOW [address] [place] [id number] Within 3 to 5 days Comments: [...] these instructions at home: Medicines ? Take xywt-jmu-nsljspc and prescription medicines only as told by [...] to the area. Brushing your teeth ? [place] your teeth twice a day using a [...] right away. Call your local emergency services (101 in the [place] ? Do not wait [...] when you eat or drink. ? Take ttrw-oev-qlnjfur and prescription medicines only as told by your dentist. ? Watch your dental pain for any changes. Let your dentist know if symptoms get worse. This information is not intended to replace advice given to you by your health care provider. Make sure you discuss any questions you have with your health care provider. Document Revised: 06/11/2021 Document Reviewed: 06/11/2021 Plug Apps Patient Education ? 2023 [place]. Dental Pain Dental pain is often a sign that something is wrong with your teeth or gums. You can also mandel (more content not included)... Normal [facility] Urgent Care [place] [address]24 Urgent Care Record [facility] ? Urgent Care [address] [place] [address] PATIENT DISCHARGE INSTRUCTIONS Patient Information Name: LE ROCHA Age: 23 Years Date of : 2000 Reason For Visit: UC - Dental Pain; DENTAL PAIN Arrival Time: 05/22/2024 13:14:06 Primary Care Physician: Raeann Jang MSN ADMINISTRATIVE FELLOW Attending Physician: Yon Templeton CNP Comment: Visit Diagnosis: Diagnoses This Visit Dental infection (K04.7) Impacted tooth (K01.1) UC - Dental Pain ([id number]) If you received any narcotics, sedation, or [...] documents With: Address: When: Raeann Jang MSN ADMINISTRATIVE FELLOW [address] [place] [address] Medication Information: The exam and treatment you received today in the [facility] Urgent [facility] were for an urgent problem and are not intended as complete care. It is important for you to follow up with a doctor, nurse practitioner, or physician?s assistant program director for ongoing care. If your symptoms become [...] we can reach you if necessary. [facility] Urgent [facility] has provided you with a complete list of medications post discharge. Please inform your powder hand/provider of your visit and for further instruction on these medications. Any specific questions regarding your chronic medications and dosages should be discussed with your primary care physician(s) and/or pharmacist. New Medications [id number], [address] [place], [place] [phone], [phone] amoxicillin (amoxicillin 500 mg oral capsule) 1 [...] these instructions at home: Medicines ? Take inns-ubx-wjspsgu and prescription medicines only as told by your dentist. ? If you were prescribed an antibiotic medicine, take it as told by your dentist. Do not stop taking it even if you start to feel better. Eating and drinking D (more content not included)... Normal [facility] Quantiferon-TB Plus (Client Incubated)on 04-17-2024 Gamma interferon background IA Qn (Bld) 3.22 International_Unit/mL Invalid Interpretation Code [facility] Comment on above: Performed By: #### 1 [id number] #### [facility] [address] [place] [address] M. tuberculosis stim IFN-g by CD4+ CD8+ T-cells corrected for background Qn (Bld) 0.00 International_Unit/mL Invalid Interpretation Code [facility] Comment on above: Performed By: #### 1 [id number] #### [facility] [address] [place] [address] M. tuberculosis stim IFN-g by CD4+ T-cells corrected for background Qn (Bld) 0.00 International_Unit/mL Invalid Interpretation Code [facility] Comment on above: Performed By: #### 1 [id number] #### [facility] [address] [id number] M. tuberculosis stim IFN-g Ql (Bld) [Interp] Negative Invalid Interpretation Code Negative [facility] Comment on above: Result Comment: No [...] interferon gamma. Chemiluminescence immunoassay methodology Performed at: [facility] [id number] PhD Calvin Milenr Performed By: #### 1 [id number] #### [facility] [address] [place] [address] Mitogen stimulated gamma interferon corrected for background Qn (Bld) >10.00 Invalid Interpretation Code [facility] Comment on above: Performed By: #### 1 [id number] #### [facility] [address] [place] [address] Service comment (Unsp spec) [Interp] Comment Invalid Interpretation Code [facility] Comment on above: Result Comment: Bairon [...] for the test. Performed By: #### 1 [id number] #### [facility] [address] [place] [address] Hep Bs Abon 04-15-2024 HBV surface Ab Ql (S) Reactive Invalid Interpretation Code [facility] Comment on above: Result Comment: Non Reactive: Inconsistent with immunity, less than 10 mIU/mL Reactive: Consistent with immunity, greater than 9.9 mIU/mL Performed at: [address] [id number] PhD Calvin Milner Performed By: #### 2 [id number] #### [facility] [address] [place] [address] Measles/Mumps/Rubella Immuni tyon 04-15-2024 MeV IgG IA Qn (S) 26.7 A unit/mL Invalid Interpretation Code Immune >16.4 [facility] Comment on above: Result Comment: Nega tive <13.5 Equivocal 13.5 - 16.4 Positive >16.4 Presence of antibodies to Rubeola is presumptive evidence of immunity except when acute infection is suspected. Performed By: #### 3 [id number] #### [facility] [address] [place] [address] MuV IgG IA Qn (S) 209.0 A unit/mL Invalid Interpretation Code Immune >10.9 [facility] Comment on above: Result Comment: Nega tive <9.0 Equivocal 9.0 - 10.9 Positive >10.9 A positive result generally indicates past exposure to Mumps virus or previous vaccination. Performed at: [address] [id number] PhD Calvin Milner Performed By: #### 3 [id number] #### [facility] [address] [place] [address] Rubella virus IgG Qn (S) 4.08 [IU]/mL Invalid Interpretation Code Immune >0.99 [facility] Comment on above: Result Comment: Non- immune <0.90 Equivocal 0.90 - 0.99 Immune >0.99 Performed By: #### 3 [id number] #### [facility] [address] [place] [address] Varic IgGon 04-15-2024 VZV IgG IA Qn (S) 514 Invalid Interpretation Code Immune >165 [facility] Comment on above: Result Comment: Nega tive <135 Equivocal 135 - 165 Positive >165 A positive result generally indicates exposure to the pathogen or administration of specific immunoglobulins, but it is not indication of active infection or stage of disease. Performed at: [facility] [id number] PhD Calvin Milner Performed By: #### 1 [id number] #### [facility] [address] [place] [address] BioFire Detectedon BioFire Detected Detected Critically abnormal Not Detecte [facility] Comment on above: Result Comment: This is a duplicate RP2.1 COVID (PCR) result to be used for statistical tracking purpose only. PERFORMED BY: [place] [address] PATHOLOGIST BARTENDERS SADAF YOUNGBLOOD M.D. Performed By: #### L IPID, B12, FOL, T4F, TSH3, FSH, [id number], CMP, MG, FE and TIBC, SAKINA, CRP #### [facility] [address] [place] [address] [place] COVID-19 Detected/Not Detect edOrdered By: Ginny Quach on 03-30-2024 SARS-CoV-2 (COVID-19) RNA KYLAH+non-probe Ql (Nph) Detected Abnormal Not Detecte [facility] Comment on above: This is a duplicate [...] A H3 Blank Space -- PERFORMED BY: [facility] [address] [place] [address] PATHOLOGIST BARTENDERS SADAF YOUNGBLOOD M.D. Normal [facility] Comment on above: Performed By: #### L IPID, B12, FOL, T4F, TSH3, FSH, [id number], CMP, MG, FE and TIBC, SAKINA, CRP #### [facility] [address] Respiratory pathogens DNA an d RNA panel - Nasopharynx by KYLAH with non-probe detectionOrdered By: Ginny Quach on 03-30-2024 Respiratory pathogens DNA and RNA panel KYLAH+non-probe (Nph) [facility] ED Clinical Summaryon 2022 ED Clinical Summary [facility] ? Urgent Care [address] [place] [address] Clinical Summary PERSON INFORMATION Name: LE ROCHA Age: 23 Years Sex: FEMALE : 2000 MRN: Acct#: Visit Reason: Medical screening exam; OTTERBEIN PHYSICAL Arrival: 09/02/2023 11:23:52 Discharge: 09/02/2023 12:23:00 LOS: 000 01:00 Check In: 09/02/2023 11:23:52 Checkout: 09/02/2023 12:23:00 Address: [address] [place] [address] PCP: Provider, Unlisted PROVIDER INFORMATION Provider Role [...] understanding of instructions given Comment: Normal [facility] ED Patient Summaryon 023 ED Patient Summary [facility] ? Urgent Care [address] [place] [address] PATIENT DISCHARGE INSTRUCTIONS Patient Information Name: LE ROCHA Age: 23 Years Date of : 2000 Reason For Visit: Medical screening exam; OTTERBEIN PHYSICAL Arrival Time: 09/02/2023 11:23:52 Primary Care Physician: Provider, Unlisted Attending Physician: Tyler Armstrong PA-C Comment: Patient Education Medication Information: The exam and treatment you received today in the [facility] Department were for an urgent problem and are not intended as complete care. It is important for you to follow up with a doctor, nurse practitioner, or physician?s assistant program director for ongoing care. If your symptoms become [...] we can reach you if necessary. [facility] Emergency Department has provided you with a complete list of medications post discharge. Please inform your powder hand/provider of your visit and for further instruction on these medications. Any specific questions regarding your chronic medications and dosages should be discussed with your primary care physician(s) and/or pharmacist. Visit Information Visit Diagnosis: Diagnoses This Visit Medical screening exam ([id number]) If you received any narcotics, sedation, or [...] documents Reason for Visit: Medical Screening Exam. [place] Physical. Allergies: Substance Reaction Symptoms Type Comments [...] for Disease Control and Prevention May 2014 [facility] Urgent Care Note- Provideron 09-02-2023 Urgent Care Note- Provider Patient: LE ROCHA Age: 23 years Sex: FEMALE : 2000 Associated Diagnoses: None Author: Tyler Armstrong PA-C Basic Information Additional information: Chief Complaint from Nursing Triage Note : Chief Complaint 09/02/2023 11:54 EST Chief Complaint Medical Screening Exam. [place] Physical. . History of Present Illness Patient [...] 12:03 EST] Tyler Armstrong PA-C Normal [facility] Urgent Care [place] [address]23 Urgent Care Record [facility] ? Urgent Care [address] [place] [address] PATIENT DISCHARGE INSTRUCTIONS Patient Information Name: LE ROCHA Age: 23 Years Date of : 2000 Reason For Visit: Medical screening exam; OTTSHAWNBEIN PHYSICAL Arrival Time: 09/02/2023 11:23:52 Primary Care Physician: Provider, Unlisted Attending Physician: Tyler Armstrong PA-C Comment: Visit Diagnosis: Diagnoses This Visit Medical screening exam ([id number]) If you received any narcotics, sedation, or [...] and treatment you received today in the [facility] Care were for an urgent problem and are not intended as complete care. It is important for you to follow up with a doctor, nurse practitioner, or physician?s assistant program director for ongoing care. If your symptoms become [...] we can reach you if necessary. [facility] Care has provided you with a complete list of medications post discharge. Please inform your powder hand/provider of your visit and for further instruction [...] Control and Prevention May 2014 Normal [facility] Choriogonadotropin.beta subu nit [Units/volume] in Serum or PlasmaOrdered By: Raeann Jang on 08-19-2023 HCG.beta subunit Qn 0.75 m[IU]/mL [facility] Comment on above: Approximate Approxim ate hCG Gestational Age Range (mIU/ml) (weeks)0.2-1 5-50 1-2 50-500 2-3 100-5,000 3-4 500-10,000 4-5 1,000-50,000 5-6 10,000-100,000 6-8 15,000-200,000 8-12 10,000-100,000 HCG.beta subunit Qn Negative [facility] HCG,Qualitative Serumon 07-23 HCG,Qualitative Serum Negative Normal [facility] Comment on above: Result Comment: PERF ORMED BY: [facility] [address] [place] [address] PATHOLOGIST BARTENDERS SADAF YOUNGBLOOD M.D. Performed By: #### L IPID, B12, FOL, T4F, TSH3, FSH, [id number], CMP, MG, FE and TIBC, SAKINA, CRP #### [facility] [address] [id number] [facility] HCG,Quantitativeon HCG,Quantitative 0.75 m[iU]/mL Normal [facility] Comment on above: Result Comment: Appr oximate Approximate hCG Gestational Age Range (mIU/ml) (weeks) 0.2-1 5-50 1-2 50-500 2-3 100-5,000 3-4 500-10,000 4-5 1,000-50,000 5-6 10,000-100,000 6-8 15,000-200,000 8-12 10,000-100,000 Performed By: #### L IPID, B12, FOL, T4F, TSH3, FSH, [id number], CMP, MG, FE and TIBC, SAKINA, CRP #### [facility] [address] HAND RIGHT WO IV CONTRAST [...] Detected Not detected Normal Not Detecte [facility] Comment on above: Result Comment: This is a duplicate RP2.1 COVID (PCR) result to be used for statistical tracking purpose only. PERFORMED BY: [facility] [address] [place] [address] PATHOLOGIST BARTENDERS SADAF YOUNGBLOOD M.D. Performed By: #### L IPID, B12, FOL, T4F, TSH3, FSH, [id number], CMP, MG, FE and TIBC, SAKINA, CRP #### [facility] [address] COVID-19 Detected/Not Detect edOrdered By: Raeann Jang on 08-10-2023 SARS-CoV-2 (COVID-19) RNA KYLAH+non-probe Ql (Nph) Not detected Not Detecte [facility] Comment on above: This is a duplicate [...] A H3 Blank Space -- PERFORMED BY: [place] [address] PATHOLOGIST BARTENDERS SADAF YOUNGBLOOD M.D. Normal [facility] Comment on above: Performed By: #### L IPID, B12, FOL, T4F, TSH3, FSH, [id number], CMP, MG, FE and TIBC, SAKINA, CRP #### [facility] [address] [place] [address] Respiratory pathogens DNA an d RNA panel - Nasopharynx by KYLAH with non-probe detectionOrdered By: Raeann Jang on 08-10-2023 Respiratory pathogens DNA and RNA panel KYLAH+non-probe (Nph) [facility] Alanine aminotransferase [En zymatic activity/volume] in Serum or PlasmaOrdered By: Raeann Jang on 07-20-2023 ALT [Catalytic activity/Vol] 10 U/L Normal 7-52 [facility] Comment on above: Performed By: #### L IPID, B12, FOL, T4F, TSH3, FSH, [id number], CMP, MG, FE and TIBC, SAKINA, CRP #### [facility] [address] Albumin [Mass/volume] in Ser um or Plasma by Bromocresol green (BCG) dye binding methoOrdered By: Raeann Jang on 07-20-2023 Albumin BCG dye [Mass/Vol] 4.5 g/dL 3.5-5.7 [facility] Alkaline phosphatase [Enzyma tic activity/volume] in Serum or PlasmaOrdered By: Raeann Jang on 07-20-2023 ALP [Catalytic activity/Vol] 63 U/L Normal 34-104 [facility] Comment on above: Performed By: #### L IPID, B12, FOL, T4F, TSH3, FSH, [id number], CMP, MG, FE and TIBC, SAKINA, CRP #### [address] Aspartate aminotransferase [ Enzymatic activity/volume] in Serum or PlasmaOrdered By: Raeann Jang on 07-20-2023 AST [Catalytic activity/Vol] 16 U/L Normal 13-39 [facility] Comment on above: Performed By: #### L IPID, B12, FOL, T4F, TSH3, FSH, [id number], CMP, MG, FE and TIBC, SAKINA, CRP #### [address] Automated basophil %Ordered By: Raeann Jang on 07-20-2023 Basophils/100 WBC (Bld) 0.3 % Normal . [facility] Comment on above: Performed By: #### L IPID, B12, FOL, T4F, TSH3, FSH, [id number], CMP, MG, FE and TIBC, SAKINA, CRP #### [address] Automated basophil countOrde red By: Raeann Jang on 07-20-2023 Basophils (Bld) [#/Vol] 0.0 10*3/uL Normal 0.0-0.2 [facility] Comment on above: Performed By: #### L IPID, B12, FOL, T4F, TSH3, FSH, [id number], CMP, MG, FE and TIBC, SAKINA, CRP #### [address] Automated blood monocyte cou ntOrdered By: Raeann Jang on 07-20-2023 Monocytes (Bld) [#/Vol] 0.3 10*3/uL Normal 0.0-0.8 [facility] Comment on above: Performed By: #### L IPID, B12, FOL, T4F, TSH3, FSH, [id number], CMP, MG, FE and TIBC, SAKINA, CRP #### [address] Automated eosinophil %Ordere d By: Raeann Jang on 07-20-2023 Eosinophils/100 WBC (Bld) 0.9 % Normal . [facility] Comment on above: Performed By: #### L IPID, B12, FOL, T4F, TSH3, FSH, [id number], CMP, MG, FE and TIBC, SAKINA, CRP #### [facility] [address] Automated eosinophil countOr dered By: Raeann Jang on 07-20-2023 Eosinophils (Bld) [#/Vol] 0.1 10*3/uL Normal 0.0-0.45 [facility] Comment on above: Performed By: #### L IPID, B12, FOL, T4F, TSH3, FSH, [id number], CMP, MG, FE and TIBC, SAKINA, CRP #### [facility] [address] Automated monocyte %Ordered By: Raeann Jang on 07-20-2023 Monocytes/100 WBC (Bld) 4.9 % Normal . [facility] Comment on above: Performed By: #### L IPID, B12, FOL, T4F, TSH3, FSH, [id number], CMP, MG, FE and TIBC, SAKINA, CRP #### [facility] [address] Automated neutrophil %Ordere d By: Raeann Jang on 07-20-2023 Neutrophils/100 WBC (Bld) 70.0 % Normal . [facility] Comment on above: Performed By: #### L IPID, B12, FOL, T4F, TSH3, FSH, [id number], CMP, MG, FE and TIBC, SAKINA, CRP #### [facility] [address] [place] [address] [place] Bilirubin.total [Mass/volume ] in Serum or PlasmaOrdered By: Raeann Jang on 07-20-2023 Bilirubin [Mass/Vol] 1.7 mg/dL High 0.3-1.0 [facility] Comment on above: Samples from patient [...] L IPID, B12, FOL, T4F, TSH3, FSH, [id number], CMP, MG, FE and TIBC, SAKINA, CRP #### [facility] [address] [id number] [place] C reactive protein [Mass/vol ume] in Serum or PlasmaOrdered By: Raeann Jang on 07-20-2023 CRP [Mass/Vol] 0.8 mg/dL 0.0-0.5 [facility] C-Reactive Proteinon 023 C-Reactive Protein 0.8 mg/dL High 0.0-0.5 [facility] Comment on above: Performed By: #### L IPID, B12, FOL, T4F, TSH3, FSH, [id number], CMP, MG, FE and TIBC, SAKINA, CRP #### [facility] [address] [place] [address] [place] Calcium [Mass/volume] in Ser um or PlasmaOrdered By: Raeann Jang on 07-20-2023 Calcium [Mass/Vol] 9.6 mg/dL Normal 8.6-10.3 [facility] Comment on above: Performed By: #### L IPID, B12, FOL, T4F, TSH3, FSH, [id number], CMP, MG, FE and TIBC, SAKINA, CRP #### [facility] [address] [place] [id number] [place] Carbon dioxide, total [Moles /volume] in Serum or PlasmaOrdered By: Raeann Jang on 07-20-2023 CO2 [Moles/Vol] 26.8 mmol/L Normal 21.0-31.0 [facility] Comment on above: Performed By: #### L IPID, B12, FOL, T4F, TSH3, FSH, [id number], CMP, MG, FE and TIBC, SAKINA, CRP #### [facility] [address] [place] [address] [place] Chloride [Moles/volume] in S ulises or PlasmaOrdered By: Raeann Jang on 07-20-2023 Chloride [Moles/Vol] 106 mmol/L Normal 98-107 [facility] Comment on above: Performed By: #### L IPID, B12, FOL, T4F, TSH3, FSH, [id number], CMP, MG, FE and TIBC, SAKINA, CRP #### [facility] [address] [place] [id number] [facility] Cholesterol [Mass/volume] in Serum or PlasmaOrdered By: Raeann Jang on 07-20-2023 Cholesterol [Mass/Vol] 148 mg/dL Normal 140-200 [facility] Comment on above: Chol less than 200 m g/dl low riskChol 201-239 mg/dl borderline riskChol 240 mg/dl and greater high risk Result Comment: Chol less than 200 mg/dl low risk Chol 201-239 mg/dl borderline risk Chol 240 mg/dl and greater high risk Performed By: #### L IPID, B12, FOL, T4F, TSH3, FSH, [id number], CMP, MG, FE and TIBC, SAKINA, CRP #### [facility] [address] Cholesterol in LDL Calc [Mas s/Vol]Ordered By: Raeann Jang on 07-20-2023 Cholesterol in LDL [Mass/Vol] 86 mg/dL 0-100 [facility] Comment on above: LDL ATP III CLASSIFI CATIONLDL less than 100 mg/dL OptimalLDL 100-129 mg/dL Near or above optimalLDL 130-159 mg/dL Borderline highLDL 160-189 mg/dL HighLDL greater than 189 mg/dL Very high Cholesterol in VLDL Calc [Ma ss/Vol]Ordered By: Raeann Jang on 07-20-2023 Cholesterol in VLDL [Mass/Vol] 17 mg/dL [facility] Complete Blood Count Auto Di ffon 07-20-2023 Mean Corpuscular HGB Conc 33.8 g/dL Normal 32.0-35.0 [facility] Comment on above: Performed By: #### L IPID, B12, FOL, T4F, TSH3, FSH, [id number], CMP, MG, FE and TIBC, SAKINA, CRP #### [facility] [address] NRBC% 0.1 /100{WBC} Normal 0-0.5 [facility] Comment on above: Performed By: #### L IPID, B12, FOL, T4F, TSH3, FSH, [id number], CMP, MG, FE and TIBC, SAKINA, CRP #### [facility] [address] Comprehensive Metabolic Pane maikol 07-20-2023 Albumin [Mass/Vol] 4.5 g/dL Normal 3.5-5.7 [facility] Comment on above: Performed By: #### L IPID, B12, FOL, T4F, TSH3, FSH, [id number], CMP, MG, FE and TIBC, SAKINA, CRP #### [address] GFR/1.73 sq M.predicted MDRD (S/P/Bld) [Vol rate/Area] mL/min/{1.73_m2} Normal [facility] Comment on above: Performed By: #### L IPID, B12, FOL, T4F, TSH3, FSH, [id number], CMP, MG, FE and TIBC, SAKINA, CRP #### [address] Creatinine [Mass/volume] in Serum or PlasmaOrdered By: Raeann Jang on 07-20-2023 Creatinine [Mass/Vol] 0.70 mg/dL Normal 0.60-1.20 [facility] Comment on above: Performed By: #### L IPID, B12, FOL, T4F, TSH3, FSH, [id number], CMP, MG, FE and TIBC, SAKINA, CRP #### [address] Erythrocyte Sedimentation Ra nargis 07-20-2023 ESR (Bld) [Velocity] 15 mm/h Normal 0-19 [facility] Comment on above: Result Comment: PERF ORMED BY: [place] [address] PATHOLOGIST BARTENDERS SADAF YOUNGBLOOD M.D. Performed By: #### L IPID, B12, FOL, T4F, TSH3, FSH, [id number], CMP, MG, FE and TIBC, SAKINA, CRP #### [facility] [address] [place] [id number] [facility] Erythrocyte distribution wid th [Ratio] by Automated countOrdered By: Raeann Jang on 07-20-2023 Erythrocyte distribution width (RBC) [Ratio] 12.3 % Normal 11.9-15.3 [facility] Comment on above: Performed By: #### L IPID, B12, FOL, T4F, TSH3, FSH, [id number], CMP, MG, FE and TIBC, SAKINA, CRP #### [address] Erythrocyte sedimentation ra te by Photometric methodOrdered By: Raeann Jang on 07-20-2023 ESR Photometric method (Bld) [Velocity] 15 mm/hr 0-19 [facility] Erythrocytes [#/volume] in B lood by Automated countOrdered By: Raeann Jang on 07-20-2023 RBC (Bld) [#/Vol] 4.11 10*6/uL Normal 3.60-5.00 [facility] Comment on above: Performed By: #### L IPID, B12, FOL, T4F, TSH3, FSH, [id number], CMP, MG, FE and TIBC, SAKINA, CRP #### [place] [id number] [facility] Estradiolon 07-20-2023 Estradiol 126.0 pg/mL Normal . [facility] Comment on above: Result Comment: Adul t Female: Follicular phase 12.5 - 166.0 Ovulation phase 85.8 - 498.0 Luteal phase 43.8 - 211.0 Postmenopausal <6.0 - 54.7 1st trimester 215.0 - >4300.0 Heather ECLIA methodology PERFORMED BY: [place] [address] PATHOLOGIST BARTENDERS SADAF YOUNGBLOOD M.D. Performed By: #### L IPID, B12, FOL, T4F, TSH3, FSH, [id number], CMP, MG, FE and TIBC, SAKINA, CRP #### [facility] [address] Ferritin [Mass/volume] in Se rum or PlasmaOrdered By: Raeann Jang on 07-20-2023 Ferritin [Mass/Vol] 20.3 ng/mL Normal 11.0-306.8 [facility] Comment on above: Performed By: #### L IPID, B12, FOL, T4F, TSH3, FSH, [id number], CMP, MG, FE and TIBC, SAKINA, CRP #### [facility] [address] Folateon 07-20-2023 Folate 10.4 ng/mL Normal >5.9 [facility] Comment on above: Result Comment: Yulia te reference range: >5.9 ng/ml The WHO technical consultation on folate and vitamin b12 deficiencies has determined that folate concentrations less than 4 ng/ml are considered deficient. Performed By: #### L IPID, B12, FOL, T4F, TSH3, FSH, [id number], CMP, MG, FE and TIBC, SAKINA, CRP #### [facility] [address] [place] [id number] [facility] Folate [Mass/volume] in Seru m or PlasmaOrdered By: Raeann Jang on 07-20-2023 Folate [Mass/Vol] 10.4 ng/mL >5.9 [facility] Comment on above: Folate reference ran ge: >5.9 ng/mlThe WHO technical consultation on folate and vitamin [id number] has determined that folate concentrations lessthan 4 ng/ml are considered deficient. Follicle Stimulating Hormone on 07-20-2023 Follicle Stimulating Hormone 2.8 m[iU]/mL Normal [facility] Comment on above: Result Comment: FEMA LE NORMALS (PREMENOPAUSE) MID-FOLLICULAR PHASE: 3.9-8.8 mIU/mL MID-CYCLE PEAK: 4.5-22.5 mIU/mL MID-LUTEAL PHASE: 1.8-5.1 mIU/mL FEMALE NORMALS (POSTMENOPAUSE): 16.7-113.6 mIU/mL MALE NORMALS: 1.3-19.3 mIU/mL Performed By: #### L IPID, B12, FOL, T4F, TSH3, FSH, [id number], CMP, MG, FE and TIBC, SAKINA, CRP #### [facility] [address] Follitropin [Units/volume] i n Serum or PlasmaOrdered By: Raeann Jang on 07-20-2023 Follitropin Qn 2.8 m[IU]/mL [facility] Comment on above: FEMALE NORMALS (FLOWER ENOPAUSE) MID-FOLLICULAR PHASE: 3.9-8.8 mIU/mL MID-CYCLE PEAK: 4.5-22.5 mIU/mL MID-LUTEAL PHASE: 1.8-5.1 mIU/mLFEMALE NORMALS (POSTMENOPAUSE): 16.7-113.6 mIU/mLMALE NORMALS: 1.3-19.3 mIU/mL Free testosterone measuremen t by LC-MS/MSOrdered By: Raeann Jang on 07-20-2023 Testosterone Free [Mass/Vol] 1.5 pg/mL 0.0-4.2 [facility] Comment on above: Performed at: [address] [id number] Director: Alf Simpson PhD, Phone: [phone] at: - Lab[address] [id number] Director: Jayne Mann MD, Phone: [phone] Glucose [Mass/volume] in Ser um or PlasmaOrdered By: Raeann Jang on 07-20-2023 Glucose [Mass/Vol] 76 mg/dL Normal 70-100 [facility] Comment on above: ADA recommended refe rence rangeRandom Glucose Reference Range is dependent on time and content of last meal. Glucose of more than 200 mg/dL in a nonstressed, ambulatory subject supports the diagnosis of Diabetes Mellitus. Result Comment: [place] om Glucose Reference Range is dependent on time and content of last meal. Glucose of more than 200 mg/dL in a nonstressed, ambulatory subject supports the diagnosis of Diabetes Mellitus. ADA recommended reference range Performed By: #### L IPID, B12, FOL, T4F, TSH3, FSH, [id number], CMP, MG, FE and TIBC, SAKINA, CRP #### [address] Hematocrit [Volume Fraction] of Blood by Automated countOrdered By: Raeann Jang on 07-20-2023 Hematocrit (Bld) [Volume fraction] 37.1 % Normal 34.0-46.4 [facility] Comment on above: Performed By: #### L IPID, B12, FOL, T4F, TSH3, FSH, [id number], CMP, MG, FE and TIBC, SAKINA, CRP #### [address] Hemoglobin [Mass/volume] in BloodOrdered By: Raeann Jang on 07-20-2023 Hemoglobin (Bld) [Mass/Vol] 12.5 g/dL Normal 11.8-15.4 [facility] Comment on above: Performed By: #### L IPID, B12, FOL, T4F, TSH3, FSH, [id number], CMP, MG, FE and TIBC, SAKINA, CRP #### [address] Insulinon 07-20-2023 Insulin 8.2 u[iU]/mL Normal 2.6-24.9 [facility] Comment on above: Result Comment: Perf ormed at: CB - [facility] [address] [id number] [employer] Operator: Alf Simpson PhD, Phone: [phone] Performed By: #### L IPID, B12, FOL, T4F, TSH3, FSH, [id number], CMP, MG, FE and TIBC, SAKINA, CRP #### [address] Iron [Mass/volume] in Serum or PlasmaOrdered By: Raeann Jang on 07-20-2023 Iron [Mass/Vol] 122 ug/dL Normal 50-212 [facility] Comment on above: Performed By: #### L IPID, B12, FOL, T4F, TSH3, FSH, [id number], CMP, MG, FE and TIBC, SAKINA, CRP #### [facility] [address] Iron and TIBC Profileon 06-22 % Iron Saturation 28.6 % Normal 20-50 [facility] Comment on above: Performed By: #### L IPID, B12, FOL, T4F, TSH3, FSH, [id number], CMP, MG, FE and TIBC, SAKINA, CRP #### [facility] [address] Total Iron Binding Capacity 427 ug/dL Normal 255-450 [facility] Comment on above: Performed By: #### L IPID, B12, FOL, T4F, TSH3, FSH, [id number], CMP, MG, FE and TIBC, SAKINA, CRP #### [facility] [address] Iron binding capacity [Mass/ volume] in Serum or PlasmaOrdered By: Raeann Jang on 07-20-2023 Iron binding capacity [Mass/Vol] 427 ug/dL 255-450 [facility] Iron saturation [Mass Fracti on] in Serum or PlasmaOrdered By: Raeann Jang on 07-20-2023 Iron saturation [Mass fraction] 28.6 % 20-50 [facility] Leukocytes [#/volume] correc paulie for nucleated erythrocytes in Blood by Automated counOrdered By: Raeann Jang on 07-20-2023 WBC corrected for nucl RBC Auto (Bld) [#/Vol] 6.7 10*3/uL 3.8-11.6 [facility] Leukocytes [#/volume] in Blo od by Automated countOrdered By: Raeann Jang on 07-20-2023 WBC (Bld) [#/Vol] 6.7 10*3/uL Normal 3.8-11.6 [facility] Comment on above: Performed By: #### L IPID, B12, FOL, T4F, TSH3, FSH, [id number], CMP, MG, FE and TIBC, SAKINA, CRP #### [address] Lipid Panelon 07-20-2023 LDL Cholesterol,Calculated 86 mg/dL Normal 0-100 [facility] Comment on above: Result Comment: LDL ATP III CLASSIFICATION LDL less than 100 mg/dL Optimal LDL 100-129 mg/dL Near or above optimal LDL 130-159 mg/dL Borderline high LDL 160-189 mg/dL High LDL greater than 189 mg/dL Very high Performed By: #### L IPID, B12, FOL, T4F, TSH3, FSH, [id number], CMP, MG, FE and TIBC, SAKINA, CRP #### [address] Triglyceride w/Reflex 85 mg/dL Normal 0-149 [facility] Comment on above: Result Comment: TRIG ATP III CLASSIFICATION TRIG less than 150 mg/dL Normal TRIG 150-199 mg/dL Borderline high TRIG 200-500 mg/dL High TRIG greater than 500 mg/dL Very high Standard traceable to the Center for Disease Conrtrol and Prevention (CDC) test method. Performed By: #### L IPID, B12, FOL, T4F, TSH3, FSH, [id number], CMP, MG, FE and TIBC, SAKINA, CRP #### [address] VLDL CHOLESTEROL 17 mg/dL Normal [facility] Comment on above: Performed By: #### L IPID, B12, FOL, T4F, TSH3, FSH, [id number], CMP, MG, FE and TIBC, SAKINA, CRP #### [address] Luteinizing Hormoneon 2022 Luteinizing Hormone 5.5 m[iU]/mL Normal . [facility] Comment on above: Result Comment: Adul t Female: Follicular phase 2.4 - 12.6 Ovulation phase 14.0 - 95.6 Luteal phase 1.0 - 11.4 Postmenopausal 7.7 - 58.5 Performed By: #### L IPID, B12, FOL, T4F, TSH3, FSH, [id number], CMP, MG, FE and TIBC, SAKINA, CRP #### [facility] [address] Lymphocytes [#/volume] in Bl ood by Automated countOrdered By: Raeann Jang on 07-20-2023 Lymphocytes (Bld) [#/Vol] 1.6 10*3/uL Normal 1.00-4.8 [facility] Comment on above: Performed By: #### L IPID, B12, FOL, T4F, TSH3, FSH, [id number], CMP, MG, FE and TIBC, SAKINA, CRP #### [facility] [address] Lymphocytes/100 leukocytes i n Blood by Automated countOrdered By: Raeann Jang on 07-20-2023 Lymphocytes/100 WBC (Bld) 23.9 % Normal . [facility] Comment on above: Performed By: #### L IPID, B12, FOL, T4F, TSH3, FSH, [id number], CMP, MG, FE and TIBC, SAKINA, CRP #### [address] MCH [Entitic mass] by Automa paulie countOrdered By: Raeann Jang on 07-20-2023 MCH (RBC) [Entitic mass] 30.5 pg Normal 24.7-34.3 [facility] Comment on above: Performed By: #### L IPID, B12, FOL, T4F, TSH3, FSH, [id number], CMP, MG, FE and TIBC, SAKINA, CRP #### [address] MCHC Auto (RBC) [Mass/Vol]Or dered By: Reaann Jang on 07-20-2023 MCHC (RBC) [Mass/Vol] 33.8 g/dL 32.0-35.0 [facility] MCV [Entitic volume] by Auto mated countOrdered By: Raeann Jang on 07-20-2023 MCV (RBC) [Entitic vol] 90.1 fL Normal 80-100 [facility] Comment on above: Performed By: #### L IPID, B12, FOL, T4F, TSH3, FSH, [id number], CMP, MG, FE and TIBC, SAKINA, CRP #### [facility] [address] [place] [address] [place] Magnesium [Mass/volume] in S ulises or PlasmaOrdered By: Raeann Jang on 07-20-2023 Magnesium [Mass/Vol] 1.9 mg/dL Normal 1.9-2.7 [facility] Comment on above: Performed By: #### L IPID, B12, FOL, T4F, TSH3, FSH, [id number], CMP, MG, FE and TIBC, SAKINA, CRP #### [facility] [address] Neutrophils [#/volume] in Bl ood by Automated countOrdered By: Raeann Jang on 07-20-2023 Neutrophils (Bld) [#/Vol] 4.7 10*3/uL Normal 1.8-7.7 [facility] Comment on above: Performed By: #### L IPID, B12, FOL, T4F, TSH3, FSH, [id number], CMP, MG, FE and TIBC, SAKINA, CRP #### [facility] [address] No Panel InformationOrdered By: Raeann Jang on 07-20-2023 Estimated GFR (CKD-EPI) > 60.0 mL/Min [facility] Creatinine Clearance (Chem N/A [facility] Nucleated erythrocytes [Pres ence] in Blood by Automated countOrdered By: Raeann Jang on 07-20-2023 Nucleated RBC Auto Ql (Bld) 0.1 /100{WBC} 0-0.5 [facility] Platelet mean volume [Entiti c volume] in Blood by Automated countOrdered By: Raeann Jang on 07-20-2023 Platelet mean volume (Bld) [Entitic vol] 8.8 fL Normal 6.3-10.7 [facility] Comment on above: Performed By: #### L IPID, B12, FOL, T4F, TSH3, FSH, [id number], CMP, MG, FE and TIBC, SAKINA, CRP #### [facility] [address] [place] [address] [place] Platelets [#/volume] in Bloo d by Automated countOrdered By: Raeann Jang on 07-20-2023 Platelets (Bld) [#/Vol] 344 10*3/uL Normal 150-450 [facility] Comment on above: Performed By: #### L IPID, B12, FOL, T4F, TSH3, FSH, [id number], CMP, MG, FE and TIBC, SAKINA, CRP #### [facility] [address] [place] [address] [place] Potassium [Moles/volume] in Serum or PlasmaOrdered By: Raeann Jang on 07-20-2023 Potassium [Moles/Vol] 4.2 mmol/L Normal 3.5-5.1 [facility] Comment on above: Performed By: #### L IPID, B12, FOL, T4F, TSH3, FSH, [id number], CMP, MG, FE and TIBC, SAKINA, CRP #### [facility] [address] [place] [address] [facility] Progesteroneon 07-20-2023 Progesterone 13.5 ng/mL Normal . [facility] Comment on above: Result Comment: Foll icular phase 0.1 - 0.9 Luteal phase 1.8 - 23.9 Ovulation phase 0.1 - 12.0 First trimester 11.0 - 44.3 Second trimester 25.4 - 83.3 Third trimester 58.7 - 214.0 Postmenopausal 0.0 - 0.1 Performed at: - [address] [id number] [employer] Operator: Alf Simpson PhD, Phone: [phone] Performed By: #### L IPID, B12, FOL, T4F, TSH3, FSH, [id number], CMP, MG, FE and TIBC, SAKINA, CRP #### [facility] [address] [place] [address] [place] Protein [Mass/volume] in Ser um or PlasmaOrdered By: Raeann Jang on 07-20-2023 Protein [Mass/Vol] 7.0 g/dL Normal 6.4-8.9 [facility] Comment on above: Performed By: #### L IPID, B12, FOL, T4F, TSH3, FSH, [id number], CMP, MG, FE and TIBC, SAKINA, CRP #### [facility] [address] Serum globulin measurement b y calculation (mass/volume)Ordered By: Raeann Jang on 07-20-2023 Globulin (S) [Mass/Vol] 2.5 g/dL Normal [facility] Comment on above: Performed By: #### L IPID, B12, FOL, T4F, TSH3, FSH, [id number], CMP, MG, FE and TIBC, SAKINA, CRP #### [facility] [address] Serum or plasma albumin/glob ulin mass ratioOrdered By: Raeann Jang on 07-20-2023 Albumin/Globulin [Mass ratio] 1.8 {ratio} Normal [facility] Comment on above: Performed By: #### L IPID, B12, FOL, T4F, TSH3, FSH, [id number], CMP, MG, FE and TIBC, SAKINA, CRP #### [address] Serum or plasma anion gap de terminationOrdered By: Raeann Jang on 07-20-2023 Anion gap [Moles/Vol] 11.4 mmol/L Normal 6.0-15.0 [facility] Comment on above: Performed By: #### L IPID, B12, FOL, T4F, TSH3, FSH, [id number], CMP, MG, FE and TIBC, SAKINA, CRP #### [address] Serum or plasma estradiol (E 2) measurement (mass/volume)Ordered By: Raeann Jang on 07-20-2023 E2 [Mass/Vol] 126.0 pg/mL . [facility] Comment on above: Adult Female: Follic ular phase 12.5 - 166.0 Ovulation phase 85.8 - 498.0 Luteal phase 43.8 - 211.0 Postmenopausal <6.0 - 54.7 1st trimester 215.0 - >4300.0Roche ECLIA methodology Serum or plasma high density lipoprotein (HDL) cholesterol measurementOrdered By: Raeann Jang on 07-20-2023 Cholesterol in HDL [Mass/Vol] 45 mg/dL Normal 23-92 [facility] Comment on above: HDL CHOL ATP-III CLA SSIFICATION Cardiovascular RiskHDL > or equal to 60 mg/dL LOWHDL < 40 mg/dL HIGH Result Comment: HDL CHOL ATP-III CLASSIFICATION Cardiovascular Risk HDL > or equal to 60 mg/dL LOW HDL < 40 mg/dL HIGH Performed By: #### L IPID, B12, FOL, T4F, TSH3, FSH, [id number], CMP, MG, FE and TIBC, SAKINA, CRP #### [facility] [address] Serum or plasma insulin michael urement (units/volume)Ordered By: Raeann Jang on 07-20-2023 Insulin Qn 8.2 u[iU]/mL 2.6-24.9 [facility] Comment on above: Performed at: [employer] [facility] [id number] [place], [place] [id number] Director: Alf Simpson PhD, Phone: [phone] Serum or plasma lutropin mandeep surement (units/volume)Ordered By: Raeann Jang on 07-20-2023 Lutropin Qn 5.5 m[IU]/mL . [facility] Comment on above: Adult Female: Follic ular phase 2.4 - 12.6 Ovulation phase 14.0 - 95.6 Luteal phase 1.0 - 11.4 Postmenopausal 7.7 - 58.5 Serum or plasma progesterone measurement (mass/volume)Ordered By: Raeann Jang on 07-20-2023 Progesterone [Mass/Vol] 13.5 ng/mL . [facility] Comment on above: Follicular phase 0.1 - 0.9 Luteal phase 1.8 - 23.9 Ovulation phase 0.1 - 12.0 First trimester 11.0 - 44.3 Second trimester 25.4 - 83.3 Third trimester 58.7 - 214.0 Postmenopausal 0.0 - 0.1Performed at: [employer] [facility] [id number] [place], [place] [id number] Director: Alf Simpson PhD, Phone: [phone] Serum or plasma total choles terol/high density lipoprotein (HDL) cholesterol mass ratOrdered By: Raeann Jang on 07-20-2023 Cholesterol.total/Adriana sterol in HDL [Mass ratio] 3.3 {ratio} Normal <5.0 [facility] Comment on above: Performed By: #### L IPID, B12, FOL, T4F, TSH3, FSH, [id number], CMP, MG, FE and TIBC, SAKINA, CRP #### [facility] [address] Sodium [Moles/volume] in Ser um or PlasmaOrdered By: Raeann Jang on 07-20-2023 Sodium [Moles/Vol] 140 mmol/L Normal 136-145 [facility] Comment on above: Performed By: #### L IPID, B12, FOL, T4F, TSH3, FSH, [id number], CMP, MG, FE and TIBC, SAKINA, CRP #### [facility] [address] Testosterone Free TotalOrder ed By: Raeann Jang on 07-20-2023 Testosterone [Mass/Vol] 25 ng/dL Normal 13-71 [facility] Comment on above: Performed By: #### L IPID, B12, FOL, T4F, TSH3, FSH, [id number], CMP, MG, FE and TIBC, SAKINA, CRP #### [facility] [address] Testosterone Free Totalon Testosterone,Free 1.5 pg/mL Normal 0.0-4.2 [facility] Comment on above: Result Comment: Perf ormed at: - [facility] [id number] [employer] Operator: Alf Simpson PhD, Phone: [phone] Performed at: - [facility] [id number] [employer] Operator: Jayne Mann MD, Phone: [phone] Performed By: #### L IPID, B12, FOL, T4F, TSH3, FSH, [id number], CMP, MG, FE and TIBC, SAKINA, CRP #### [facility] [address] Thyrotropin [Units/volume] i n Serum or PlasmaOrdered By: Raeann Jing on 07-20-2023 TSH Qn 1.01 m[IU]/L Normal 0.45-5.33 [facility] Comment on above: Performed By: #### L IPID, B12, FOL, T4F, TSH3, FSH, [id number], CMP, MG, FE and TIBC, SAKINA, CRP #### [facility] [address] Thyroxine (T4) free [Mass/vo lume] in Serum or PlasmaOrdered By: Raeann Jang on 07-20-2023 Free T4 [Mass/Vol] 0.92 ng/dL Normal 0.61-1.12 [facility] Comment on above: Performed By: #### L IPID, B12, FOL, T4F, TSH3, FSH, [id number], CMP, MG, FE and TIBC, SAKINA, CRP #### [facility] [address] Transferrin [Mass/volume] in Serum or PlasmaOrdered By: Raeann Jang on 07-20-2023 Transferrin [Mass/Vol] 305 mg/dL Normal 203-362 [facility] Comment on above: Performed By: #### L IPID, B12, FOL, T4F, TSH3, FSH, [id number], CMP, MG, FE and TIBC, SAKINA, CRP #### [facility] [address] Triglyceride [Mass/volume] i n Serum or PlasmaOrdered By: Raeann Jang on 07-20-2023 Triglyceride [Mass/Vol] 85 mg/dL 0-149 [facility] Comment on above: TRIG ATP III CLASSIF ICATIONTRIG less than 150 mg/dL NormalTRIG 150-199 mg/dL Borderline highTRIG 200-500 mg/dL High TRIG greater than 500 mg/dL Very highStandard traceable to the Center for Disease Conrtrol and Prevention (CDC) test method. Triiodothyronine (T3) Freeon 07-20-2023 Triiodothyronine (T3) Free 4.11 pg/mL High 2.50-3.90 [facility] Comment on above: Result Comment: PERF ORMED BY: [place] [address] PATHOLOGIST BARTENDERS SADAF YOUNGBLOOD M.D. Performed By: #### L IPID, B12, FOL, T4F, TSH3, FSH, [id number], CMP, MG, FE and TIBC, SAKINA, CRP #### [address] Triiodothyronine (T3) Free [ Mass/volume] in Serum or PlasmaOrdered By: Raeann Jang on 07-20-2023 Free T3 [Mass/Vol] 4.11 pg/mL 2.50-3.90 [facility] Urea nitrogen [Mass/volume] in Serum or PlasmaOrdered By: Raeann Brianchol on 07-20-2023 Urea nitrogen [Mass/Vol] 8 mg/dL Normal 7-25 [facility] Comment on above: Performed By: #### L IPID, B12, FOL, T4F, TSH3, FSH, [id number], CMP, MG, FE and TIBC, SAKINA, CRP #### [facility] [address] [place] [address] Vitamin B12 ser/plasOrdered By: Raeann Torreschol on 07-20-2023 Cobalamin (Vitamin B12) [Mass/Vol] 384 pg/mL Normal 180-914 [facility] Comment on above: Performed By: #### L IPID, B12, FOL, T4F, TSH3, FSH, [id number], CMP, MG, FE and TIBC, SAKINA, CRP #### [facility] [address] [place] [address] [place] Vitamin D 25 Hydroxy Totalon 07-20-2023 Vitamin D 25 Hydroxy Total 49.5 ng/mL Normal 30-100 [facility] Comment on above: Result Comment: NATALIE MIN D STATUS 25(OH)VITAMIN D RANGE (ng/mL) Deficient <20 Insufficient 20 to <30 Sufficient 30 to 100 Reference: Ambar MF,Manish MARTINEZ, Donis MANDEL, et al. Evaluation,treatment, and prevention of vitamin D deficiency; an Endocrine Society clinical practice guideline. JCEM. 2010; 96(7):1911-30. PERFORMED BY: [place] [address] PATHOLOGIST BARTENDERS SADAF YOUNGBLOOD M.D. Performed By: #### L IPID, B12, FOL, T4F, TSH3, FSH, [id number], CMP, MG, FE and TIBC, SAKINA, CRP #### [address] Vitamin D+Metabolites [Mass/ volume] in Serum or PlasmaOrdered By: Raeann Jang on 07-20-2023 Vitamin D+Metabolites [Mass/Vol] 49.5 ng/mL 30-100 [facility] Comment on above: VITAMIN D STATUS 25( OH)VITAMIN D RANGE (ng/mL) Deficient <20 Insufficient 20 to <30Sufficient 30 to 100Reference: Ambar PEREZ,Manish MARTINEZ, Donis MANDEL et al. Evaluation,treatment, and prevention of vitamin D deficiency; an Endocrine Society clinical practice guideline. JCEM. 2010; 96(7):1911-30. Alanine aminotransferase [En zymatic activity/volume] in Serum or PlasmaOrdered By: Tiarra Childs on 05-27-2023 ALT [Catalytic activity/Vol] 10 U/L 7-52 [facility] Albumin [Mass/volume] in Ser um or Plasma by Bromocresol green (BCG) dye binding methoOrdered By: Tiarra Childs on 05-27-2023 Albumin BCG dye [Mass/Vol] 4.4 g/dL 3.5-5.7 [facility] Alkaline phosphatase [Enzyma tic activity/volume] in Serum or PlasmaOrdered By: Tiarra Childs on 05-27-2023 ALP [Catalytic activity/Vol] 53 U/L 34-104 [facility] Aspartate aminotransferase [ Enzymatic activity/volume] in Serum or PlasmaOrdered By: Tiarra Childs on 05-27-2023 AST [Catalytic activity/Vol] 20 U/L 13-39 [facility] Basophils Auto (Bld) [#/Vol] Ordered By: Tiarra Childs on 05-27-2023 Basophils (Bld) [#/Vol] 0.0 10*3/uL 0.0-0.2 [facility] Basophils/100 WBC Auto (Bld) Ordered By: Tiarra Childs on 05-27-2023 Basophils/100 WBC (Bld) 0.5 % . [facility] Bilirubin.total [Mass/volume ] in Serum or PlasmaOrdered By: Tiarra Childs on 05-27-2023 Bilirubin [Mass/Vol] 1.5 mg/dL 0.3-1.0 [facility] Comment on above: Samples from patient s who have taken Naproxen have shown spurious elevation in Total Bilirubin levels. A metabolite of Naproxen, O-desmethylnaproxen, has been shown to interfere with the Radhika method for measuring Total Bilirubin. Calcium [Mass/volume] in Ser um or PlasmaOrdered By: Tiarra Childs on 05-27-2023 Calcium [Mass/Vol] 10.0 mg/dL 8.6-10.3 [facility] Carbon dioxide, total [Moles /volume] in Serum or PlasmaOrdered By: Tiarra Childs on 05-27-2023 CO2 [Moles/Vol] 27.0 mmol/L 21.0-31.0 [facility] Chloride [Moles/volume] in S ulises or PlasmaOrdered By: Tiarra Childs on 05-27-2023 Chloride [Moles/Vol] 104 mmol/L 98-107 [facility] Choriogonadotropin.beta subu nit [Units/volume] in Serum or PlasmaOrdered By: Tiarra Childs on 05-27-2023 HCG.beta subunit Qn 400.13 m[IU]/mL [facility] Comment on above: Approximate Approxim ate hCG Gestational Age Range (mIU/ml) (weeks)0.2-1 5-50 1-2 50-500 2-3 100-5,000 3-4 500-10,000 4-5 1,000-50,000 5-6 10,000-100,000 6-8 15,000-200,000 8-12 10,000-100,000 Creatinine [Mass/volume] in Serum or PlasmaOrdered By: Tiarra Childs on 05-27-2023 Creatinine [Mass/Vol] 0.74 mg/dL 0.60-1.20 [facility] Eosinophils Auto (Bld) [#/Vo l]Ordered By: Tiarra Childs on 05-27-2023 Eosinophils (Bld) [#/Vol] 0.1 10*3/uL 0.0-0.45 [facility] Eosinophils/100 WBC Auto (Bl d)Ordered By: Tiarra Childs on 05-27-2023 Eosinophils/100 WBC (Bld) 1.5 % . [facility] Erythrocyte distribution wid th Auto (RBC) [Ratio]Ordered By: Tiarra Childs on 05-27-2023 Erythrocyte distribution width (RBC) [Ratio] 13.2 % 11.9-15.3 [facility] Ferritin [Mass/volume] in Se rum or PlasmaOrdered By: Tiarra Childs on 05-27-2023 Ferritin [Mass/Vol] 10.1 ng/mL 11.0-306.8 [facility] Folate [Mass/volume] in Seru m or PlasmaOrdered By: Tiarra Childs on 05-27-2023 Folate [Mass/Vol] 16.2 ng/mL >5.9 [facility] Comment on above: Folate reference ran ge: >5.9 ng/mlThe WHO technical consultation on folate and vitamin [id number] has determined that folate concentrations lessthan 4 ng/ml are considered deficient. Globulin Calc (S) [Mass/Vol] Ordered By: Tiarra Childs on 05-27-2023 Globulin (S) [Mass/Vol] 3.0 g/dL [facility] Glucose [Mass/volume] in Ser um or PlasmaOrdered By: Tiarra Childs on 05-27-2023 Glucose [Mass/Vol] 73 mg/dL 70-100 [facility] Comment on above: ADA recommended refe [...] from glycated hemoglobin (Bld) [Mass/Vol] 94 mg/dL [facility] Hematocrit Auto (Bld) [Volum e fraction]Ordered By: Tiarra Childs on 05-27-2023 Hematocrit (Bld) [Volume fraction] 37.5 % 34.0-46.4 [facility] Hemoglobin A1c percentageOrd ered By: Tiarra Childs on 05-27-2023 HbA1c (Bld) [Mass fraction] 4.9 % 4.3-5.6 [facility] Comment on above: Increased risk for d iabetes: 5.7 - 6.4diabetes: >6.4glycemic control for adults with diabetes: <7.0 Hemoglobin [Mass/volume] in BloodOrdered By: Tiarra Childs on 05-27-2023 Hemoglobin (Bld) [Mass/Vol] 13.1 g/dL 11.8-15.4 [facility] Iron [Mass/volume] in Serum or PlasmaOrdered By: Tiarra Childs on 05-27-2023 Iron [Mass/Vol] 94 ug/dL 50-212 [facility] Iron binding capacity [Mass/ volume] in Serum or PlasmaOrdered By: Tiarra Childs on 05-27-2023 Iron binding capacity [Mass/Vol] 514 ug/dL 255-450 [facility] Iron saturation [Mass Fracti on] in Serum or PlasmaOrdered By: Tiarra Childs on 05-27-2023 Iron saturation [Mass fraction] 18.3 % 20-50 [facility] Leukocytes [#/volume] correc paulie for nucleated erythrocytes in Blood by Automated counOrdered By: Tiarra Childs on 05-27-2023 WBC corrected for nucl RBC Auto (Bld) [#/Vol] 6.3 10*3/uL 3.8-11.6 [facility] Lymphocytes Auto (Bld) [#/Vo l]Ordered By: Tiarra Childs on 05-27-2023 Lymphocytes (Bld) [#/Vol] 1.8 10*3/uL 1.00-4.8 [facility] Lymphocytes/100 WBC Auto (Bl d)Ordered By: Tiarra Childs on 05-27-2023 Lymphocytes/100 WBC (Bld) 29.2 % . [facility] MCH Auto (RBC) [Entitic mass ]Ordered By: Tiarra Childs on 05-27-2023 MCH (RBC) [Entitic mass] 31.5 pg 24.7-34.3 [facility] MCHC Auto (RBC) [Mass/Vol]Or dered By: Tiarra Childs on 05-27-2023 MCHC (RBC) [Mass/Vol] 34.9 g/dL 32.0-35.0 [facility] MCV Auto (RBC) [Entitic vol] Ordered By: Tiarra Childs on 05-27-2023 MCV (RBC) [Entitic vol] 90.3 fL 80-100 [facility] Monocytes Auto (Bld) [#/Vol] Ordered By: Tiarra Cihlds on 05-27-2023 Monocytes (Bld) [#/Vol] 0.4 10*3/uL 0.0-0.8 [facility] Monocytes/100 WBC Auto (Bld) Ordered By: Tiarra Childs on 05-27-2023 Monocytes/100 WBC (Bld) 6.7 % . [facility] Neutrophils Auto (Bld) [#/Vo l]Ordered By: Tiarra Childs on 05-27-2023 Neutrophils (Bld) [#/Vol] 3.9 10*3/uL 1.8-7.7 [facility] Neutrophils/100 WBC Auto (Bl d)Ordered By: Tiarra Childs on 05-27-2023 Neutrophils/100 WBC (Bld) 62.1 % . [facility] No Panel InformationOrdered By: Tiarra Childs on 05-27-2023 Estimated GFR (CKD-EPI) > 60.0 mL/Min [facility] Creatinine Clearance (Chem N/A [facility] Nucleated erythrocytes [Pres ence] in Blood by Automated countOrdered By: Tiarra Childs on 05-27-2023 Nucleated RBC Auto Ql (Bld) 0.1 /100{WBC} 0-0.5 [facility] Platelet mean volume Auto (B ld) [Entitic vol]Ordered By: Tiarra Childs on 05-27-2023 Platelet mean volume (Bld) [Entitic vol] 8.6 fL 6.3-10.7 [facility] Platelets Auto (Bld) [#/Vol] Ordered By: Tiarra Childs on 05-27-2023 Platelets (Bld) [#/Vol] 350 10*3/uL 150-450 [facility] Potassium [Moles/volume] in Serum or PlasmaOrdered By: Tiarra Childs on 05-27-2023 Potassium [Moles/Vol] 4.1 mmol/L 3.5-5.1 [facility] Protein [Mass/volume] in Ser um or PlasmaOrdered By: Tiarra Childs on 05-27-2023 Protein [Mass/Vol] 7.4 g/dL 6.4-8.9 [facility] RBC Auto (Bld) [#/Vol]Ordere d By: Tiarra Childs on 05-27-2023 RBC (Bld) [#/Vol] 4.15 10*6/uL 3.60-5.00 [facility] Serum or plasma albumin/glob ulin mass ratioOrdered By: Tiarra Childs on 05-27-2023 Albumin/Globulin [Mass ratio] 1.5 {ratio} [facility] Serum or plasma anion gap de terminationOrdered By: Tiarra Childs on 05-27-2023 Anion gap [Moles/Vol] 10.1 mmol/L 6.0-15.0 [facility] Serum or plasma insulin michael urement (units/volume)Ordered By: Tiarra Childs on 05-27-2023 Insulin Qn 5.5 u[iU]/mL 2.6-24.9 [facility] Comment on above: Performed at: [address] [id number] Director: Alf Simpson PhD, Phone: [phone] Sodium [Moles/volume] in Ser um or PlasmaOrdered By: Tiarra Childs on 05-27-2023 Sodium [Moles/Vol] 137 mmol/L 136-145 [facility] Thyrotropin [Units/volume] i n Serum or PlasmaOrdered By: Tiarra Childs on 05-27-2023 TSH Qn 0.95 m[IU]/L 0.45-5.33 [facility] Thyroxine (T4) free [Mass/vo lume] in Serum or PlasmaOrdered By: Tiarra Childs on 05-27-2023 Free T4 [Mass/Vol] 0.80 ng/dL 0.61-1.12 [facility] Transferrin [Mass/volume] in Serum or PlasmaOrdered By: Tiarra Childs on 05-27-2023 Transferrin [Mass/Vol] 367 mg/dL 203-362 [facility] Urea nitrogen [Mass/volume] in Serum or PlasmaOrdered By: Tiarra Childs on 05-27-2023 Urea nitrogen [Mass/Vol] 9 mg/dL 7-25 [facility] Vitamin B12 ser/plasOrdered By: Tiarra Childs on 05-27-2023 Cobalamin (Vitamin B12) [Mass/Vol] 340 pg/mL 180-914 [facility] Vitamin D+Metabolites [Mass/ volume] in Serum or PlasmaOrdered By: Tiarra Childs on 05-27-2023 Vitamin D+Metabolites [Mass/Vol] 43.5 ng/mL 30-100 [facility] Comment on above: VITAMIN D STATUS 25( OH)VITAMIN D RANGE (ng/mL) Deficient <20 Insufficient 20 to <30Sufficient 30 to 100Reference: Ambar MF,Manish MARTINEZ, Donis MANDEL, et al. Evaluation,treatment, and prevention of vitamin D deficiency; an Endocrine Society clinical practice guideline. JCEM. 2010; 96(7):1911-30. WBC Auto (Bld) [#/Vol]Ordere d By: Tiarra Childs on 05-27-2023 WBC (Bld) [#/Vol] 6.3 10*3/uL 3.8-11.6 [facility] COVID-19 Detected/Not Detect edOrdered By: Tiarra Childs on 12-09-2022 SARS-CoV-2 (COVID-19) RNA KYLAH+non-probe Ql (Nph) Not detected Not Detecte [facility] Comment on above: This is a duplicate RP2.1 COVID (PCR) result to be used for statistical tracking purpose only. Respiratory pathogens DNA an d RNA panel - Nasopharynx by KYLAH with non-probe detectionOrdered By: Tiarra Childs on 12-09-2022 Respiratory pathogens DNA and RNA panel KYLAH+non-probe (Nph) [facility] CBC AUTO DIFFon 12-04-2022 BASO # 0.0 103/ul Normal 0.0-0.1 [facility] Comment on above: Performed By: #### C BC #### [facility] [address] [address] [address] Angelica Smith Basophils/100 WBC (Bld) 0.7 % Normal 0.2-2.0 [facility] Comment on above: Performed By: #### C BC #### [facility] [address] [address] [address] Angelica Smith EO # 0.1 103/ul Normal 0.0-0.7 [facility] Comment on above: Performed By: #### C BC #### [facility] [address] [address] [address] Angelica Smith Eosinophils/100 WBC (Bld) 1.1 % Normal 0.9-7.0 [facility] Comment on above: Performed By: #### C BC #### [facility] [address] [address] [address] Angelica Smith Erythrocyte distribution width (RBC) [Ratio] 12.1 % Normal 11.0-15.0 [facility] Comment on above: Performed By: #### C BC #### [facility] [address] [address] [address] Angelica Smith Hematocrit (Bld) [Volume fraction] 39.3 % Normal 36.0-48.0 [facility] Comment on above: Performed By: #### C BC #### [facility] [address] [address] [address] Angelica Smith Hemoglobin (Bld) [Mass/Vol] 13.3 g/dL Normal 12.0-16.0 [facility] Comment on above: Performed By: #### C BC #### [facility] [address] [place] [address] Dr. Angelica Smith IG # 0.01 10e3/ul Normal 0.00-0.03 [facility] Comment on above: Performed By: #### C BC #### [facility] [address] [place] [address] Dr. Angelica Smith IG % 0.2 % Normal 0.0-0.5 [facility] Comment on above: Performed By: #### C BC #### [facility] [address] [place] [address] Dr. Angelica Smith LYMPH # 1.9 103/ul Normal 1.2-3.8 [facility] Comment on above: Performed By: #### C BC #### [facility] [address] [place] [address] Dr. Angelica Smith Lymphocytes/100 WBC (Bld) 31.4 % Normal 20.5-60.0 [facility] Comment on above: Performed By: #### C BC #### [facility] [address] [place] [address] Dr. Angelica Smith MANUAL DIFF REQ NO Normal [facility] Comment on above: Performed By: #### C BC #### [facility] [address] [place] [address] Dr. Angelica Smith MCH (RBC) [Entitic mass] 30.3 pg Normal 26.7-34.0 [facility] Comment on above: Performed By: #### C BC #### [facility] [address] [place] [address] Dr. Angelica Smith MCHC (RBC) [Mass/Vol] 33.8 g/dL Normal 29.9-35.2 [facility] Comment on above: Performed By: #### C BC #### [facility] [address] [place] [address] Dr. Angelica Smith MCV (RBC) [Entitic vol] 89.5 fL Normal 81.0-99.0 [facility] Comment on above: Performed By: #### C BC #### [facility] [address] [place] [address] Dr. Angelica Smith MONO # 0.5 103/ul Normal 0.3-0.8 [facility] Comment on above: Performed By: #### C BC #### [facility] [address] [place] [address] Dr. Angelica Smith Monocytes/100 WBC (Bld) 7.4 % Normal 1.7-12.0 [facility] Comment on above: Performed By: #### C BC #### [facility] [address] [place] [address] Dr. Angelica Smith NEUT # 3.6 103/ul Normal 1.4-6.5 [facility] Comment on above: Performed By: #### C BC #### [facility] [address] [place] [address] Dr. Angelica Smith Neutrophils/100 WBC (Bld) 59.2 % Normal 43.0-75.0 [facility] Comment on above: Performed By: #### C BC #### [facility] [address] [place] [address] Dr. Angelica Smith Platelet mean volume (Bld) [Entitic vol] 9.7 fL Normal 9.5-13.5 [facility] Comment on above: Performed By: #### C BC #### [facility] [address] [place] [address] Dr. Angelica Smith PLT 289 103/ul Normal 150-450 [facility] Comment on above: Performed By: #### C BC #### [facility] [address] [place] [address] Dr. Angelica Smith RBC 4.39 106/ul Normal 4.20-5.40 [facility] Comment on above: Performed By: #### C BC #### [facility] [address] [place] [address] Dr. Angelica Smith WBC 6.1 103/ul Normal 4.0-11.0 [facility] Comment on above: Performed By: #### C BC #### [facility] [address] [place] [address] Dr. Angelica Smith PREG QUANT HCGon 12-04-2022 HCG QUANT <1 Normal [facility] Comment on above: Performed By: #### P REGQNT #### [facility] [address] [place] [address] Dr. Angelica Smith HCG RANGE SEE BELOW Normal [facility] Comment on above: Result Comment: 5-50 0.2-1 WEEK 50-500 1-2 WEEKS 100-5,000 2-3 WEEKS 500-10,000 3-4 WEEKS 1,000-50,000 4-5 WEEKS 10,000-100,000 5-6 WEEKS 15,000-200,000 6-8 WEEKS 10,000-100,000 2-3 MONTHS Performed By: #### P REGQNT #### [facility] [address] [place] [address] Dr. Angelica Smith Albumin [Mass/volume] in Ser um or PlasmaOrdered By: Tiarra Childs on 10-29-2022 Albumin [Mass/Vol] 4.3 g/dL 3.2-5.5 [facility] Alternaria alternata IgE Ab [Units/volume] in SerumOrdered By: Tiarra Childs on 10-29-2022 A. alternata IgE Qn (S) <0.10 kU/L Class 0 [facility] Cook Islander house dust mite IgE Ab [Units/volume] in SerumOrdered By: Tiarra Childs on 10-29-2022 Cook Islander house dust mite IgE Qn (S) 0.10 kU/L Class 0/I [facility] Aspergillus fumigatus IgE Ab [Units/volume] in SerumOrdered By: Tiarra Childs on 10-29-2022 A. fumigatus IgE Qn (S) <0.10 kU/L Class 0 [facility] Shaffer's yeast IgE Ab [Units/ volume] in SerumOrdered By: Tiarra Childs on 10-29-2022 Shaffer's yeast IgE Qn (S) <0.10 kU/L Class 0 [facility] Comment on above: Performed at: [address] [id number] Director: Jayne Mann MD, Phone: [phone] Banana IgE Ab [Units/volume] in SerumOrdered By: Tiarra Childs on 10-29-2022 Banana IgE Qn (S) <0.10 kU/L Class 0 [facility] Barley IgE Ab [Units/volume] in SerumOrdered By: Tiarra Childs on 10-29-2022 Barley IgE Qn (S) 0.40 kU/L Class I [facility] Beef IgE Ab [Units/volume] i n SerumOrdered By: Tiarra Childs on 10-29-2022 Beef IgE Qn (S) <0.10 kU/L Class 0 [facility] Bermuda grass IgE Ab [Units/ volume] in SerumOrdered By: Tiarra Childs on 10-29-2022 Bermuda grass IgE Qn (S) <0.10 kU/L Class 0 [facility] Boxelder IgE Ab [Units/volum e] in SerumOrdered By: Tiarra Childs on 10-29-2022 Boxelder IgE Qn (S) <0.10 kU/L Class 0 [facility] Cheese cheddar type IgE Ab [ Units/volume] in SerumOrdered By: Tiarra Childs on 10-29-2022 Cheese cheddar type IgE Qn (S) <0.10 kU/L Class 0 [facility] Cladosporium herbarum IgE Ab [Units/volume] in SerumOrdered By: Tiarra Childs on 10-29-2022 C. herbarum IgE Qn (S) <0.10 kU/L Class [address] [facility] Cockroach IgE Ab [Units/volu me] in SerumOrdered By: Tiarra Childs on 10-29-2022 Cockroach IgE Qn (S) 0.44 kU/L Class I [facility] Stigler IgE Ab [Units/volume] i n SerumOrdered By: Tiarra Childs on 10-29-2022 Stigler IgE Qn (S) <0.10 kU/L Class 0 [facility] Line [place] IgE Ab [Units/vol ume] in SerumOrdered By: Tiarra Childs on 10-29-2022 Line [place] IgE Qn (S) <0.10 kU/L Class 0 [facility] Cow milk IgE Ab [Units/volum e] in SerumOrdered By: Tiarra Childs on 10-29-2022 Cow milk IgE Qn (S) <0.10 kU/L Class 0 [facility] Creatinine and Glomerular fi ltration rate.predicted panel (S/P/Bld)Ordered By: Tiarra Childs on 10-29-2022 Creatinine [Mass/Vol] 0.65 mg/dL 0.44-1.03 [facility] Dog dander IgE Ab [Units/vol ume] in SerumOrdered By: Tiarra Childs on 10-29-2022 Dog dander IgE Qn (S) 0.12 kU/L Class 0/I [facility] Estimated glomerular filtrat ion rate (GFR) non- AmericanOrdered By: Tiarra Childs on 10-29-2022 GFR/1.73 sq M.predicted among non-blacks MDRD (S/P/Bld) [Vol rate/Area] > 60 mL/Min [facility] house dust mite IgE Ab [Units/volume] in SerumOrdered By: Tiarra Childs on 10-29-2022 house dust mite IgE Qn (S) 0.26 kU/L Class 0/I [facility] Free testosterone measuremen t by LC-MS/MSOrdered By: Tiarra Childs on 10-29-2022 Testosterone Free [Mass/Vol] 3.7 pg/mL 0.0-4.2 [facility] Comment on above: Performed at: - [address] [id number] Director: Alf Simpson PhD, Phone: [phone] at: - [address] [id number] Director: Jayne Mann MD, Phone: [phone] Gluten IgE Ab [Units/volume] in SerumOrdered By: Tiarra Childs on 10-29-2022 Gluten IgE Qn (S) <0.10 kU/L Class 0 [facility] Hepatitis B virus surface Ag [Presence] in Serum or Plasma by ImmunoassayOrdered By: Tiarra Childs on 10-29-2022 HBV surface Ag IA Ql Negative Negative [facility] Hepatitis C virus RNA [Units /volume] (viral load) in Serum or Plasma by KYLAH with probOrdered By: Tiarra Childs on 10-29-2022 HCV RNA KYLAH+probe Qn N/A [facility] Hepatitis C virus RNA [log u nits/volume] (viral load) in Serum or Plasma by KYLAH withOrdered By: Tiarra Childs on 10-29-2022 HCV RNA KYLAH+probe [Log units/Vol] N/A [facility] Human leukocyte antigen (HLA ) DQ2 detectionOrdered By: Tiarra Childs on 10-29-2022 HLA-DQ2 Ql (Bld/Tiss) Negative . [facility] Human leukocyte antigen (HLA ) DQ8 detectionOrdered By: Tiarra Childs on 10-29-2022 HLA-DQ8 Ql (Bld/Tiss) Negative . [facility] Comment on above: Final Results:DQA1*0 5:EETCV,-DQB1*03:EETKC,-Code Translation:EETCV 05:09/24:01/22:05/25:07/25:08/24:30/01::02/02:17:06/02:10/02:11/02:26 :28:29/05:30:32:34:35 :3705:39:4205:4305:4405:45/05:46 05:4805:50/05:51/05:53/05:58/05:5905:60 05:62/05:64EETKC 03:09/22:06/22:03/12:19:21:22:24 :27:28:29:35/03:36/03:42/:44 /:46/:47/:48:49:50:51:52 /03:53/03:54/03:55/03:56/03:57/03:58/03:59 /03:60/03:69/03:73/03:75/03:76/03:77/03:78 /03:82/03:83/03:84N/03:92/03:93/03:94 /03:101/03:102/03:103/03:108/03:109/03:114 /03:115/03:116/03:118N/03:119/03:120 /03:121/03:122/03:127/03:128/03:129/03:130 /03:131/03:133/03:134/03:135/03:139/03:140 /03:142/03:143/03:144/03:147/03:148/03:151 /03:152/03:154/03:157/03:158/03:159/03:160 /03:162/03:163/03:164/03:165/03:166/03:167 /03:169/03:170/03:171/03:173/03:182/03:183 /03:186/03:188/03:191/03:192/03:193/03:196 /03:197Q/03:198/03:201/03:202/03:206 /03:207/03:208/03:216/03:218/03:219/03:231 /03:232/03:235/03:236/03:241/03:242/03:243 /03:246/03:252/03:253/03:254/03:255/03:257 /03:260/03:264/03:266/03:267/03:268/03:271 /03:275/03:276N/03:281/03:284/03:285 /03:288/03:290/03:291/03:292/03:293/03:294 /03:297/03:302/03:303N/03:305/03:306 /03:307/03:309/03:311/03:312/03:314/03:317 /03:326/03:328/03:329/03:330/03:331 /03:338N/03:340N/03:341/03:342/03:347 /03:350/03:353/03:354N/03:358N/03:361 /03:366/03:370/03:372/03:373/03:377/03:378 /03:380/03:385N/03:387/03:389/03:390 /03:391/03:394/03:396/03:399N/03:400N /03:404/03:407N/03:408/03:417/03:418 /03:419/03:420/03:421/03:423/03:424/03:425 /03:426/03:427N/03:428/03:430/03:431 /03:432/03:434/03:435/03:436/03:438/03:439 /03:448/03:449/03:451/03:454/03:455/03:458 /03:460/03:465/03:467/03:468/03:469/03:470 /03:472/03:473N/03:475/03:476/03:480Q /03:482/03:483/03:486/03:488N/03:491/03:492The patient is positive for DQA1*05, one half of the PR2bufosecgmht. The Celiac Disease risk from the HLA DQA/DQBgenotype is approximately 1:1842 (0.05%). This is lessthan the 1% risk in the general population.Allele interpretation for all loci based on IMGT/HLAdatabase version 3.49.0A Lab CLIA ID Number [id number] than 95% of celiac patients are positive for eitherDQ2 or DQ8 (Kirt and Neela, (1993) [id number]). However these antigens may also be present inpatients who do not have Celiac disease. IgE [Units/volume] in Serum or PlasmaOrdered By: Tiarra Childs on 10-29-2022 IgE Qn 5 [IU]/mL 6-495 [facility] Laboratory - Chemistry and C hemistry - challengeOrdered By: Tiarra Childs on 10-29-2022 Testosterone [Mass/Vol] 41 ng/dL 13-71 F [facility] Mountain Juniper IgE Ab [Uni ts/volume] in SerumOrdered By: Tiarra Childs on 10-29-2022 Mountain Juniper IgE Qn (S) 0.19 kU/L Class 0/I [facility] Mouse urine proteins IgE Ab [Units/volume] in SerumOrdered By: Tiarra Childs on 10-29-2022 Mouse urine proteins IgE Qn (S) <0.10 kU/L Class 0 [facility] No Panel InformationOrdered By: Tiarra Childs on 10-29-2022 Allergen Note See comment . [facility] Comment on above: Levels of Specific I gE Class Description of Class ----- < 0.10 0 Negative 0.10 - 0.31 0/I Equivocal/Low 0.32 - 0.55 I Low 0.56 - 1.40 II Moderate 1.41 - 3.90 III High 3.91 - 19.00 IV Very High 19.01 - 100.00 V Very High >100.00 Very High C-Peptide 1.7 ng/mL 1.1-4.4 [facility] Comment on above: C-Peptide reference interval is for fasting patients.Performed at: [facility] [id number] Director: Alf Simpson PhD, Phone: [phone] Celiac Gene Interpretation See comment . [facility] Comment on above: References:1. Fidel CROOKS and Krystin Lock. Celiac Disease. N Eng J Med 2007; 357:5967-5426.2. Yeni F, Dottie B, Bonavandao M et al. HLA-DQ and risk gradient [...] Sang TC, Nigel CR, Je K, editors. Fjuul), [facility], March 22, 2008:1-27. http://www.ncbi.nlm.nih.gov/Impervazahra/br.fcgi?book=genepart=ce [facility] PMID [id number] (PubMed)6. Luis Lim. Emerging concepts in celiac disease. Curr Opin Pediatr 2004;16:552-559.Performed at: [facility] [id number] [place], [place] [id number] Director: Dajuan Dickinson PhD, Phone: [phone] Dehydroepiandrosterone Sulfate 368.0 ug/dL 110.0-431. 7 [facility] Estimated GFR () > 60 mL/Min [facility] Comment on above: GFR estimated refere nce range: According to KDOQI guidelines, <60 ml/min/1.73m2 is sufficient to diagnose a patient with chronic kidney disease. Hepatitis A IgM Antibody Negative Negative [facility] Hepatitis B Core IgM Antibody Negative Negative [facility] Hepatitis C Interpretation See comment . [facility] Comment on above: NegativeNot infected with HCV, unless recent infection issuspected or other evidence exists to indicate HCVinfection.Performed at: - [facility] [address] [id number] Director: Alf Simpson PhD, Phone: [phone] Hepatitis C RNA Quantitative N/A [facility] HLA Genotype Interpretation See comment . [facility] Comment on above: This test was perfor med using Polymerase ChainReaction/(PCR)Sequence Specific Oligonucleotide Probes(SSOP) (Luminex) technique. Sequence Based Typing (SBT)and/or Sequence Specific Primers (SSP) may be used assupplemental methods when necessary. Please contact HLACustomer Service at if you have anyquestions.Director of HLA LaboratoryDr Dajuan Dickinson, PhD Pharmacy Creatinine Clearance (Chem N/A [facility] Oat IgE Ab [Units/volume] in SerumOrdered By: Tiarra Childs on 10-29-2022 Oat IgE Qn (S) 0.32 kU/L Class I [facility] Ware IgE Ab [Units/volume] in SerumOrdered By: Tiarra Childs on 10-29-2022 Ware IgE Qn (S) <0.10 kU/L Class 0 [facility] Peanut IgE Ab [Units/volume] in SerumOrdered By: Tiarra Childs on 10-29-2022 Peanut IgE Qn (S) <0.10 kU/L Class 0 [facility] Pecan or [place] Tree IgE Ab [Units/volume] in SerumOrdered By: Tiarra Childs on 10-29-2022 Pecan or [place] IgE Qn (S) <0.10 kU/L Class 0 [facility] Phosphate [Mass/volume] in S ulises or PlasmaOrdered By: Tiarra Childs on 10-29-2022 Phosphate [Mass/Vol] 4.2 mg/dL 2.5-4.6 [facility] Pork IgE Ab [Units/volume] i n SerumOrdered By: Tiarra Childs on 10-29-2022 Pork IgE Qn (S) <0.10 kU/L Class 0 [facility] Prolactin [Mass/volume] in S ulises or PlasmaOrdered By: Tiarra Childs on 10-29-2022 Prolactin [Mass/Vol] 6.27 ng/mL 3.34-26.72 [facility] Rice IgE Ab [Units/volume] i n SerumOrdered By: Tiarra Childs on 10-29-2022 Rice IgE Qn (S) <0.10 kU/L Class 0 [facility] Biloxi IgE Ab [Units/volume] in SerumOrdered By: Tiarra Childs on 10-29-2022 Biloxi IgE Qn (S) 0.31 kU/L Class 0/I [facility] Saltwort IgE Ab [Units/volum e] in SerumOrdered By: Tiarra Childs on 10-29-2022 Saltwort IgE Qn (S) <0.10 kU/L Class 0 [facility] Serum Cook Islander sycamore IgE antibody assay (units/volume)Ordered By: Tiarra Childs on 10-29-2022 Cook Islander [place] IgE Qn (S) 0.11 kU/L Class 0/I [facility] Serum Penicillium chrysogenu m specific IgE antibody assayOrdered By: Tiarra Childs on 10-29-2022 P. notatum IgE Qn (S) <0.10 kU/L Class 0 [facility] Serum androstenedione measur ement by LC-MS/MS (mass/volume)Ordered By: Tiarra Childs on 10-29-2022 Androstenedione [Mass/Vol] 135 ng/dL 41-262 [facility] Comment on above: This test was develo ped and its performance characteristicsdetermined by [employer]. It has not been cleared orapproved by the Food and Drug Administration.Performed at: [address] [id number] Director: Jayne Mann MD, Phone: [phone] Serum cat dander IgG antibod y assay (units/volume)Ordered By: Tiarra Childs on 10-29-2022 Cat dander IgG Qn (S) <0.10 kU/L Class 0 [facility] Serum chicken droppings IgE antibody assay (units/volume)Ordered By: Tiarra Childs on 10-29-2022 Chicken droppings IgE Qn (S) <0.10 kU/L Class 0 [facility] Serum or plasma 17-hydroxypr ogesterone measurement (mass/volume)Ordered By: Tiarra Childs on 10-29-2022 17-Hydroxyprogesterone [Mass/Vol] 28 ng/dL . [facility] Comment on above: Adult Female Follicu lar 15 - 70 Luteal 35 - 290This test was developed and its performance characteristicsdetermined by [employer]. It has not been cleared orapproved by the Food and Drug Administration.Performed at: - [facility] [id number] [place], [place] [id number] Director: Jayne Mann MD, Phone: [phone] Serum or plasma anion gap de terminationOrdered By: Tiarra Childs on 10-29-2022 Anion gap [Moles/Vol] 9.2 mmol/L 6.0-15.0 [facility] Serum or plasma calcium michael urement (mass/volume)Ordered By: Tiarra Childs on 10-29-2022 Calcium [Mass/Vol] 9.4 mg/dL 8.2-10.2 [facility] Serum or plasma chloride mandeep surement (moles/volume)Ordered By: Tiarra Childs on 10-29-2022 Chloride [Moles/Vol] 105 mmol/L 95-114 [facility] Serum or plasma follitropin measurement (units/volume)Ordered By: Tiarra Childs on 10-29-2022 Follitropin Qn 5.1 m[IU]/mL [facility] Comment on above: FEMALE NORMALS (FLOWER ENOPAUSE) MID-FOLLICULAR PHASE: 3.9-8.8 mIU/mL MID-CYCLE PEAK: 4.5-22.5 mIU/mL MID-LUTEAL PHASE: 1.8-5.1 mIU/mLFEMALE NORMALS (POSTMENOPAUSE): 16.7-113.6 mIU/mLMALE NORMALS: 1.3-19.3 mIU/mL Serum or plasma glucose michael urement (mass/volume)Ordered By: Tiarra Childs on 10-29-2022 Glucose [Mass/Vol] 83 mg/dL 70-100 [facility] Comment on above: ADA recommended refe [...] IA [Rel units/Vol] <0.1 s/co ratio 0.0-0.9 [facility] Serum or plasma insulin michael urement (units/volume)Ordered By: Tiarra Childs on 10-29-2022 Insulin Qn 6.1 u[iU]/mL 2.6-24.9 [facility] Comment on above: Performed at: [facility] [address] [id number] Director: Alf Simpson PhD, Phone: [phone] Serum or plasma lutropin mandeep surement (units/volume)Ordered By: Tiarra Childs on 10-29-2022 Lutropin Qn 7.8 m[IU]/mL . [facility] Comment on above: Adult Female: Follic ular phase 2.4 - 12.6 Ovulation phase 14.0 - 95.6 Luteal phase 1.0 - 11.4 Postmenopausal 7.7 - 58.5Performed at: [employer] [facility] [address] [id number] Director: Alf Simpson PhD, Phone: [phone] Serum or plasma potassium me asurement (moles/volume)Ordered By: Tiarra Childs on 10-29-2022 Potassium [Moles/Vol] 3.8 mmol/L 3.5-5.1 [facility] Serum or plasma sodium measu rement (moles/volume)Ordered By: Tiarra Childs on 10-29-2022 Sodium [Moles/Vol] 137 mmol/L 136-146 [facility] Serum or plasma total carbon dioxide measurement (moles/volume)Ordered By: Tiarra Childs on 10-29-2022 CO2 [Moles/Vol] 26.6 mmol/L 22.0-30.0 [facility] Serum or plasma urea nitroge n measurement (mass/volume)Ordered By: Tiarra Childs on 10-29-2022 Urea nitrogen [Mass/Vol] 8 mg/dL 9-23 [facility] Serum rough pigweed IgE anti body assay (units/volume)Ordered By: Tiarra Childs on 10-29-2022 Rough Pigweed IgE Qn (S) <0.10 kU/L Class 0 [facility] Serum short ragweed specific IgE antibody assayOrdered By: Tiarra Childs on 10-29-2022 Common Ragweed IgE Qn (S) <0.10 kU/L Class 0 [facility] Serum white elm IgG antibody assay (units/volume)Ordered By: Tiarra Childs on 10-29-2022 White Elm IgG Qn (S) <0.10 kU/L Class 0 [facility] Serum white potato specific IgE antibody assayOrdered By: Tiarra Childs on 10-29-2022 Potato IgE Qn (S) <0.10 kU/L Class 0 [facility] Sheep Nass[place]ox IgE Ab [Units/v olume] in SerumOrdered By: Tiarra Childs on 10-29-2022 Sheep [place] IgE Qn (S) <0.10 kU/L Class 0 [facility] Silver Birch IgE Ab [Units/v olume] in SerumOrdered By: Tiarra Childs on 10-29-2022 Silver Birch IgE Qn (S) 0.15 kU/L Class 0/I [facility] Soybean specific IgE antibod y assayOrdered By: Tiarra Childs on 10-29-2022 Soybean IgE Qn (S) <0.10 kU/L Class 0 [facility] Donavon IgE Ab [Units/volume ] in SerumOrdered By: Tiarra Childs on 10-29-2022 Donavon IgE Qn (S) <0.10 kU/L Class 0 [facility] Tomato IgE Ab [Units/volume] in SerumOrdered By: Tiarra Childs on 10-29-2022 Tomato IgE Qn (S) <0.10 kU/L Class 0 [facility] Gilman IgE Ab [Units/volume] in SerumOrdered By: Tiarra Childs on 10-29-2022 Gilman IgE Qn (S) 0.14 kU/L Class 0/I [facility] Wheat IgE Ab [Units/volume] in SerumOrdered By: Tiarra Childs on 10-29-2022 Wheat IgE Qn (S) <0.10 kU/L Class 0 [facility] White Marquez IgE Ab [Units/volu me] in SerumOrdered By: Tiarra Childs on 10-29-2022 White Marquez IgE Qn (S) <0.10 kU/L Class 0 [facility] Brookings IgE Ab [Units/volu me] in SerumOrdered By: Tiarra Childs on 10-29-2022 Brookings IgE Qn (S) 0.27 kU/L Class 0/I [facility] White mulberry IgE Ab [Units /volume] in SerumOrdered By: Tiarra Childs on 10-29-2022 White mulberry IgE Qn (S) <0.10 kU/L Class 0 [facility] Creatinine [Mass/volume] in UrineOrdered By: Tiarra Childs on 10-20-2022 Creatinine (U) [Mass/Vol] 96.6 mg/dL [facility] Comment on above: No reference range e stablished Urine microalbumin measureme nt with detection limit of 20 mg/L or less (mass/volume)Ordered By: Tiarra Childs on 10-20-2022 Albumin DL <= 20 mg/L (U) [Mass/Vol] 24.1 mg/dL 0.0-1.8 [facility] Urine microalbumin/creatinin e mass ratioOrdered By: Tiarra Childs on 10-20-2022 Albumin/Creatinine DL <= 20 mg/L (U) [Mass ratio] 249.0 mg/g 0.0-30.0 [facility] Comment on above: 30-300 mg/g indicate s an increased risk for diabetic nephropathy. Greater than 300 mg/g is consistent with clinical nephropathy. (Am. J. Kidney Disease 1995, 25:107) Albumin [Mass/volume] in Ser um or PlasmaOrdered By: Tiarra Childs on 10-09-2022 Albumin [Mass/Vol] 4.1 g/dL 3.2-5.5 [facility] Basophils Auto (Bld) [#/Vol] Ordered By: Tiarra Childs on 10-09-2022 Basophils (Bld) [#/Vol] 0.0 10*3/uL 0.0-0.2 [facility] Basophils/100 WBC Auto (Bld) Ordered By: Tiarra Childs on 10-09-2022 Basophils/100 WBC (Bld) 0.6 % . [facility] C reactive protein [Mass/vol ume] in Serum or PlasmaOrdered By: Tiarra Childs on 10-09-2022 CRP [Mass/Vol] < 0.5 mg/dL 0.0-1.[address] [facility] [address] biopsyOrdered By: Trish Childs on 10-09-2022 Transferrin [Mass/Vol] 262 mg/dL 180-380 [facility] Creatinine [Mass/volume] in UrineOrdered By: Tiarra Childs on 10-09-2022 Creatinine (U) [Mass/Vol] 123.2 mg/dL [facility] Comment on above: No reference range e stablished Creatinine and Glomerular fi ltration rate.predicted panel (S/P/Bld)Ordered By: Tiarra Childs on 10-09-2022 Creatinine [Mass/Vol] 0.67 mg/dL 0.44-1.03 [facility] Eosinophils Auto (Bld) [#/Vo l]Ordered By: Tiarra Childs on 10-09-2022 Eosinophils (Bld) [#/Vol] 0.1 10*3/uL 0.0-0.45 [facility] Eosinophils/100 WBC Auto (Bl d)Ordered By: Tiarra Childs on 10-09-2022 Eosinophils/100 WBC (Bld) 0.9 % . [facility] Erythrocyte distribution wid th Auto (RBC) [Ratio]Ordered By: Tiarra Childs on 10-09-2022 Erythrocyte distribution width (RBC) [Ratio] 13.1 % 11.9-15.3 [facility] Erythrocyte sedimentation ra te by Photometric methodOrdered By: Tiarra Childs on 10-09-2022 ESR Photometric method (Bld) [Velocity] 5 mm/hr 0-19 [facility] Estimated glomerular filtrat ion rate (GFR) non- AmericanOrdered By: Tiarra Childs on 10-09-2022 GFR/1.73 sq M.predicted among non-blacks MDRD (S/P/Bld) [Vol rate/Area] > 60 mL/Min [facility] Ferritin [Mass/volume] in Se rum or PlasmaOrdered By: Tiarra Childs on 10-09-2022 Ferritin [Mass/Vol] 12.7 ng/mL 11-306.8 [facility] Folate [Mass/volume] in Seru m or PlasmaOrdered By: Tiarra Childs on 10-09-2022 Folate [Mass/Vol] 8.1 ng/mL >5.9 [facility] Comment on above: Folate reference ran ge: >5.9 ng/mlThe WHO technical consultation on folate and vitamin [id number] has determined that folate concentrations lessthan 4 ng/ml are considered deficient. Globulin Calc (S) [Mass/Vol] Ordered By: Tiarra Childs on 10-09-2022 Globulin (S) [Mass/Vol] 2.3 g/dL F [facility] Hematocrit Auto (Bld) [Volum e fraction]Ordered By: Tiarra Childs on 10-09-2022 Hematocrit (Bld) [Volume fraction] 41.6 % 34.0-46.4 [facility] Hemoglobin [Mass/volume] in BloodOrdered By: Tiarra Childs on 10-09-2022 Hemoglobin (Bld) [Mass/Vol] 13.8 g/dL 11.8-15.4 [facility] Iron [Mass/volume] in Serum or PlasmaOrdered By: Tiarra Childs on 10-09-2022 Iron [Mass/Vol] 69 ug/dL 40-150 [facility] Iron binding capacity [Mass/ volume] in Serum or PlasmaOrdered By: Tiarra Childs on 10-09-2022 Iron binding capacity [Mass/Vol] 367 ug/dL 255-450 [facility] Iron saturation [Mass Fracti on] in Serum or PlasmaOrdered By: Tiarra Childs on 10-09-2022 Iron saturation [Mass fraction] 18.8 % 20-50 [facility] Laboratory - Chemistry and C hemistry - challengeOrdered By: Tiarra Childs on 10-09-2022 Cobalamin (Vitamin B12) [Mass/Vol] 394 pg/mL 180-914 [facility] Lipase [Catalytic activity/Vol] 29.0 U/L 22-51 [facility] Leukocytes [#/volume] correc paulie for nucleated erythrocytes in Blood by Automated counOrdered By: Tiarra Childs on 10-09-2022 WBC corrected for nucl RBC Auto (Bld) [#/Vol] 6.3 10*3/uL 3.8-11.6 [facility] Lymphocytes Auto (Bld) [#/Vo l]Ordered By: Tiarra Childs on 10-09-2022 Lymphocytes (Bld) [#/Vol] 1.5 10*3/uL 1.00-4.8 [facility] Lymphocytes/100 WBC Auto (Bl d)Ordered By: Tiarra Childs on 10-09-2022 Lymphocytes/100 WBC (Bld) 24.1 % . [facility] MCH Auto (RBC) [Entitic mass ]Ordered By: Tiarra Childs on 10-09-2022 MCH (RBC) [Entitic mass] 29.8 pg 24.7-34.3 [facility] MCHC Auto (RBC) [Mass/Vol]Or dered By: Tiarra Childs on 10-09-2022 MCHC (RBC) [Mass/Vol] 33.3 g/dL 32.0-35.0 [facility] MCV Auto (RBC) [Entitic vol] Ordered By: Tiarra Childs on 10-09-2022 MCV (RBC) [Entitic vol] 89.7 fL 80-100 [facility] Monocytes Auto (Bld) [#/Vol] Ordered By: Tiarra Childs on 10-09-2022 Monocytes (Bld) [#/Vol] 0.3 10*3/uL 0.0-0.8 [facility] Monocytes/100 WBC Auto (Bld) Ordered By: Tiarra Childs on 10-09-2022 Monocytes/100 WBC (Bld) 5.2 % . [facility] Neutrophils Auto (Bld) [#/Vo l]Ordered By: Tiarra Childs on 10-09-2022 Neutrophils (Bld) [#/Vol] 4.3 10*3/uL 1.8-7.7 [facility] Neutrophils/100 WBC Auto (Bl d)Ordered By: Tiarra Childs on 10-09-2022 Neutrophils/100 WBC (Bld) 69.2 % . [facility] No Panel InformationOrdered By: Tiarrasakina Donnellyson on 10-09-2022 25-Hydroxy Vitamin D Total 31.2 ng/mL 30-100 [facility] Comment on above: VITAMIN D STATUS 25( [place])VITAMIN D RANGE (ng/mL) Deficient <20 Insufficient 20 to <30Sufficient 30 to 100Reference: Ambar MF,Manish MARTINEZ, Donsi MANDEL, et al. Evaluation,treatment, and prevention of vitamin D deficiency; an Endocrine Society clinical practice guideline. JCEM. 2010; 96(7):1911-30. Anti-Nuclear Antibody Comment 2 See comment . [facility] Comment on above: For more information about Hep-2 cell patterns useASSURED PHARMACYerUP Online.[employer], the official website for the InternationalConsensus on Antinuclear Antibody (BRAVO) Patterns (ICAP). -----A positive BRAVO result may occur in healthy individuals (lowtiter) or be associated with a variety of diseases. Seeinterpretation chart which is not all inclusive:Pattern Antigen Detected Suggested Disease Association Homogeneous DNA(ds,ss), SLE - High titers Nucleosomes, Histones Drug-induced SLE Speckled Sm, BOTTLE INSPECTOR, SCL-70, SLE,MCTD,PSS (diffuse form), SS-A/SS-B Sjogrens Nucleolar SCL-70, PM-1/SCL High titers Scleroderma, PM/DM Centromere Centromere PSS (limited form) w/Crest syndrome variable Nuclear Dot Sp100,[id number] Primary Biliary Cirrhosis Nuclear GP210, Primary Biliary CirrhosisMembrane phil A,B,C Performed at: [facility] [place] [id number] Director: Alf Simpson PhD, Phone: [phone] C-Peptide 3.7 ng/mL 1.1-4.4 [facility] Comment on above: C-Peptide reference interval is for fasting patients.Performed at: [facility] [place], [place] [id number] Director: Alf Simpson PhD, Phone: [phone] Estimated GFR () > 60 mL/Min [facility] Comment on above: GFR estimated refere nce range: According to KDOQI guidelines, <60 ml/min/1.73m2 is sufficient to diagnose a patient with chronic kidney disease. Pharmacy Creatinine Clearance (Chem N/A [facility] Nucleated erythrocytes [Pres ence] in Blood by Automated countOrdered By: Tiarra Childs on 10-09-2022 Nucleated RBC Auto Ql (Bld) 0.1 /100{WBC} 0-0.5 [facility] Platelet mean volume Auto (B ld) [Entitic vol]Ordered By: Tiarra Childs on 10-09-2022 Platelet mean volume (Bld) [Entitic vol] 8.4 fL 6.3-10.7 [facility] Platelets Auto (Bld) [#/Vol] Ordered By: Tiarra Childs on 10-09-2022 Platelets (Bld) [#/Vol] 303 10*3/uL 150-450 [facility] Protein [Mass/volume] in Ser um or PlasmaOrdered By: Tiarra Childs on 10-09-2022 Protein [Mass/Vol] 6.4 g/dL 6.1-7.9 [facility] RBC Auto (Bld) [#/Vol]Ordere d By: Tiarra Childs on 10-09-2022 RBC (Bld) [#/Vol] 4.64 10*6/uL 3.60-5.00 [facility] Serum nuclear antibody titer Ordered By: Tiarra Childs on 10-09-2022 Nuclear Ab (S) [Titer] Positive . [facility] Comment on above: Negative <1:80 Borde rline 1:80 Positive >1:80 Serum or plasma alanine perry otransferase measurement without P-5'-P (enzymatic activiOrdered By: Tiarra Childs on 10-09-2022 ALT No additional P-5'-P [Catalytic activity/Vol] 12 U/L 10-60 [facility] Serum or plasma albumin/glob ulin mass ratioOrdered By: Tiarra Childs on 10-09-2022 Albumin/Globulin [Mass ratio] 1.8 {ratio} [facility] Serum or plasma alkaline blair sphatase measurement (enzymatic activity/volume)Ordered By: Tiarra Cihlds on 10-09-2022 ALP [Catalytic activity/Vol] 54 U/L 32-92 [facility] Serum or plasma amylase michael urement (enzymatic activity/volume)Ordered By: Tiarra Childs on 10-09-2022 Amylase [Catalytic activity/Vol] 63 U/L 28-100 [facility] Serum or plasma anion gap de terminationOrdered By: Tiarra Childs on 10-09-2022 Anion gap [Moles/Vol] 12.1 mmol/L 6.0-15.0 [facility] Serum or plasma aspartate am inotransferase measurement (enzymatic activity/volume)Ordered By: Tiarra Childs on 10-09-2022 AST [Catalytic activity/Vol] 20 U/L 10-42 [facility] Serum or plasma calcium michael urement (mass/volume)Ordered By: Tiarra Childs on 10-09-2022 Calcium [Mass/Vol] 9.6 mg/dL 8.2-10.2 [facility] Serum or plasma chloride mandeep surement (moles/volume)Ordered By: Tiarra Childs on 10-09-2022 Chloride [Moles/Vol] 102 mmol/L 95-114 [facility] Serum or plasma glucose michael urement (mass/volume)Ordered By: Tiarra Childs on 10-09-2022 Glucose [Mass/Vol] 66 mg/dL 70-100 [facility] Comment on above: ADA recommended refe rence rangeRandom Glucose Reference Range is dependent on time and content of last meal. Glucose of more than 200 mg/dL in a nonstressed, ambulatory subject supports the diagnosis of Diabetes Mellitus. Serum or plasma potassium me asurement (moles/volume)Ordered By: Tiarra Childs on 10-09-2022 Potassium [Moles/Vol] 3.9 mmol/L 3.5-5.1 [facility] Serum or plasma sodium measu rement (moles/volume)Ordered By: Tiarra Childs on 10-09-2022 Sodium [Moles/Vol] 138 mmol/L 136-146 [facility] Serum or plasma total biliru bin measurement (mass/volume)Ordered By: Tiarra Childs on 10-09-2022 Bilirubin [Mass/Vol] 1.1 mg/dL 0.3-1.2 [facility] Serum or plasma total carbon dioxide measurement (moles/volume)Ordered By: Tiarra Childs on 10-09-2022 CO2 [Moles/Vol] 27.8 mmol/L 22.0-30.0 [facility] Serum or plasma urea nitroge n measurement (mass/volume)Ordered By: Tiarra Childs on 10-09-2022 Urea nitrogen [Mass/Vol] 9 mg/dL 9-23 [facility] Serum speckled pattern antin uclear antibody (BRAVO) titerOrdered By: Tiarra Childs on 10-09-2022 Speckled nuclear Ab pattern (S) [Titer] 1:80 . [facility] Comment on above: ICAP nomenclature: A C-2,4,5,29 TSH DL <= 0.005 mIU/L QnOrde red By: Tiarra Childs on 10-09-2022 TSH Qn 0.90 m[IU]/L 0.45-5.33 [facility] Thyroxine (T4) free [Mass/vo lume] in Serum or PlasmaOrdered By: Tiarra Childs on 10-09-2022 Free T4 [Mass/Vol] 0.76 ng/dL 0.61-1.12 [facility] Triiodothyronine (T3) Free [ Mass/volume] in Serum or PlasmaOrdered By: Tiarra Childs on 10-09-2022 Free T3 [Mass/Vol] 3.99 pg/mL 2.50-3.90 [facility] Urine microalbumin measureme nt with detection limit of 20 mg/L or less (mass/volume)Ordered By: Tiarra Childs on 10-09-2022 Albumin DL <= 20 mg/L (U) [Mass/Vol] 4.5 mg/dL 0.0-1.8 [facility] Urine microalbumin/creatinin e mass ratioOrdered By: Tiarra Childs on 10-09-2022 Albumin/Creatinine DL <= 20 mg/L (U) [Mass ratio] 36.0 mg/g 0.0-30.0 [facility] Comment on above: 30-300 mg/g indicate s an increased risk for diabetic nephropathy. Greater than 300 mg/g is consistent with clinical nephropathy. (Am. J. Kidney Disease 1995, 25:107) WBC Auto (Bld) [#/Vol]Ordere d By: Tiarra Childs on 10-09-2022 WBC (Bld) [#/Vol] 6.3 10*3/uL 3.8-11.6 [facility] CBC AUTO DIFFon 09-28-2022 BASO # 0.0 103/ul Normal 0.0-0.1 [facility] Comment on above: Performed By: #### C BC #### [facility] [address] [address] [address] Angelica Smith Basophils/100 WBC (Bld) 0.5 % Normal 0.2-2.0 [facility] Comment on above: Performed By: #### C BC #### [facility] [address] [place] [address] Dr. Angelica Smith EO # 0.1 103/ul Normal 0.0-0.7 [facility] Comment on above: Performed By: #### C BC #### [facility] [address] [place] [address] Dr. Angelica Smith Eosinophils/100 WBC (Bld) 1.6 % Normal 0.9-7.0 [facility] Comment on above: Performed By: #### C BC #### [facility] [address] [place] [address] Dr. Angelica Smith Erythrocyte distribution width (RBC) [Ratio] 12.4 % Normal 11.0-15.0 [facility] Comment on above: Performed By: #### C BC #### [facility] [address] [place] [address] Dr. Angelica Smith Hematocrit (Bld) [Volume fraction] 36.4 % Normal 36.0-48.0 [facility] Comment on above: Performed By: #### C BC #### [facility] [address] [place] [address] Dr. Angelica Smith Hemoglobin (Bld) [Mass/Vol] 13.3 g/dL Normal 12.0-16.0 [facility] Comment on above: Performed By: #### C BC #### [facility] [address] [place] [address] Dr. Angelica Smith IG # 0.01 10e3/ul Normal 0.00-0.03 [facility] Comment on above: Performed By: #### C BC #### [facility] [address] [place] [address] Dr. Angelica Smith IG % 0.2 % Normal 0.0-0.5 [facility] Comment on above: Performed By: #### C BC #### [facility] [address] [place] [address] Dr. Angelica Smith LYMPH # 2.0 103/ul Normal 1.2-3.8 [facility] Comment on above: Performed By: #### C BC #### [facility] [address] [place] [address] Dr. Angelica Smith Lymphocytes/100 WBC (Bld) 32.6 % Normal 20.5-60.0 [facility] Comment on above: Performed By: #### C BC #### [facility] [address] [place] [address] Dr. Angelica Smith MANUAL DIFF REQ NO Normal [facility] Comment on above: Performed By: #### C BC #### [facility] [address] [place] [address] Dr. Angelica Smith MCH (RBC) [Entitic mass] 30.3 pg Normal 26.7-34.0 [facility] Comment on above: Performed By: #### C BC #### [facility] [address] [place] [address] Dr. Angelica Smith MCHC (RBC) [Mass/Vol] 36.5 g/dL Critically high 29.9-35.2 [facility] Comment on above: Performed By: #### C BC #### [facility] [address] [place] [address] Dr. Angelica Smith MCV (RBC) [Entitic vol] 82.9 fL Normal 81.0-99.0 [facility] Comment on above: Performed By: #### C BC #### [facility] [address] [place] [address] Dr. Angelica Smith MONO # 0.4 103/ul Normal 0.3-0.8 [facility] Comment on above: Performed By: #### C BC #### [facility] [address] [place] [address] Dr. Angelica Smith Monocytes/100 WBC (Bld) 6.0 % Normal 1.7-12.0 [facility] Comment on above: Performed By: #### C BC #### [facility] [address] [place] [address] Dr. Angelica Smith NEUT # 3.7 103/ul Normal 1.4-6.5 [facility] Comment on above: Performed By: #### C BC #### [facility] [address] [place] [address] Dr. Angelica Smith Neutrophils/100 WBC (Bld) 59.1 % Normal 43.0-75.0 [facility] Comment on above: Performed By: #### C BC #### [facility] [address] [place] [address] Dr. Angelica Smith Platelet mean volume (Bld) [Entitic vol] 9.5 fL Normal 9.5-13.5 [facility] Comment on above: Performed By: #### C BC #### [facility] [address] [place] [address] Dr. Angelica Smith PLT 313 103/ul Normal 150-450 [facility] Comment on above: Performed By: #### C BC #### [facility] [address] [place] [address] Dr. Angelica Smith RBC 4.39 106/ul Normal 4.20-5.40 [facility] Comment on above: Performed By: #### C BC #### [facility] [address] [place] [address] Dr. Angelica Smith WBC 6.2 103/ul Normal 4.0-11.0 [facility] Comment on above: Performed By: #### C BC #### [facility] [address] [place] [address] Dr. Angelica Smith ER URINE PROFILEon 3 Bilirubin Ql (U) Negative Normal NEGATIVE [facility] Comment on above: Performed By: #### TOREY OJEDARO #### [facility] [address] [place] [address] Dr. Angelica Smith Clarity (U) CLEAR Normal CLEAR [facility] Comment on above: Performed By: #### Gladis BUSBY UMICRO #### [facility] [address] [place] [address] Dr. Angelica Smith Color (U) LT. YELLOW Normal YELLOW [facility] Comment on above: Performed By: #### HOSEA OJEDAICRO #### [facility] [address] [place] [address] Dr. Angelica Smith ERUAHD A micrscopic examina tion will be performed if indicated. Normal [facility] Comment on above: Performed By: #### Gladis BUSBY UMICRO #### [facility] [address] [place] [address] Dr. Angelica Smith Glucose Ql (U) Negative Normal NEGATIVE [facility] Comment on above: Performed By: #### HOSEA OJEDAICRO #### [facility] [address] [place] [address] Dr. Angelica Smith Hemoglobin Ql (U) MODERATE Abnormal NEGATIVE [facility] Comment on above: Performed By: #### TOREY OJEDARO #### [facility] [address] [place] [address] Dr. Angelica Smith Ketones Ql (U) Negative Normal NEGATIVE [facility] Comment on above: Performed By: #### TOREY OJEDARO #### [facility] [address] [place] [address] Dr. Angelica Smith LEUKOCYTES Negative Normal NEGATIVE [facility] Comment on above: Performed By: #### TOREY OJEDARO #### [facility] [address] [place] [address] Dr. Angelica Smith Nitrite Ql (U) Negative Normal NEGATIVE [facility] Comment on above: Performed By: #### Gladis BUSBY UMICRO #### [facility] [address] [place] [address] Dr. Angelica Smith pH (U) 7.0 [pH] Normal 5-9 [facility] Comment on above: Performed By: #### Gladis BUSBY UMICRO #### [facility] [address] [place] [address] Dr. Angelica Smith SPEC GRAVITY 1.010 Normal 1.005-<=1. 025 [facility] Comment on above: Performed By: #### Gladis BUSBY UMICRO #### [facility] [address] [place] [address] Dr. Angelica Smith UA PROTEIN Negative Normal NEGATIVE/ TRACE [facility] Comment on above: Performed By: #### Gladis BUSBY UMICRO #### [facility] [address] [place] [address] Dr. Angelica Smith UR MICRO IND INDICATED Normal [facility] Comment on above: Performed By: #### Gladis BUSBY UMICRO #### [facility] [address] [place] [address] Dr. Angelica Smith Urobilinogen Qn (U) 0.2 {Sujey'U}/dL Normal 0.2 - 1. 0 [facility] Comment on above: Performed By: #### Gladis BUSBY UMICRO #### [facility] [address] [place] [address] Dr. Angelica Smith PREG QUANT HCGon 09-28-2022 HCG QUANT 1 mIU/mL Normal [facility] Comment on above: Performed By: #### Melissa CHRISTIANSON, PREGQNT ####[facility] [address] [place], [place] [address]Dr. Angelica Smith HCG RANGE SEE BELOW Normal [facility] Comment on above: Result Comment: 5-50 0.2-1 WEEK 50-500 1-2 WEEKS 100-5,000 2-3 WEEKS 500-10,000 3-4 WEEKS 1,000-50,000 4-5 WEEKS 10,000-100,000 5-6 WEEKS 15,000-200,000 6-8 WEEKS 10,000-100,000 2-3 MONTHS Performed By: #### Melissa CHRISTIANSON, PREGQNT ####[facility] [address] [address]. Angelcia Smith PROF CHEM 8 (BAS METB)on Anion gap [Moles/Vol] 11.5 mmol/L Normal [facility] Comment on above: Performed By: #### B MP, PREGQNT #### [facility] [address] [place] [address] Dr. Angelica Smith Calcium [Mass/Vol] 9.0 mg/dL Normal 8.5-10.1 [facility] Comment on above: Performed By: #### B MP, PREGQNT #### [facility] [address] [place] [address] Dr. Angelica Smith Chloride [Moles/Vol] 104 mmol/L Normal 98-107 [facility] Comment on above: Performed By: #### B MP, PREGQNT #### [facility] [address] [place] [address] Dr. Angelica Smith CO2 [Moles/Vol] 27.0 mmol/L Normal 21.0-32.0 [facility] Comment on above: Performed By: #### B MP, PREGQNT #### [facility] [address] [place] [address] Dr. Angelica Smith Creatinine [Mass/Vol] 0.71 mg/dL Normal 0.55-1.02 [facility] Comment on above: Performed By: #### B MP, PREGQNT #### [facility] [address] [place] [address] Dr. Angelica Smith EGFR-AF LATVIAN >60 Normal >=60 [facility] Comment on above: Performed By: #### B MP, PREGQNT #### [facility] [address] [place] [address] Dr. Angelica Smith EGFR-NON AF LATVIAN >60 Normal >=60 [facility] Comment on above: Performed By: #### B MP, PREGQNT #### [facility] [address] [place] [address] Dr. Angelica Smith Glucose [Mass/Vol] 92 mg/dL Normal 74-106 [facility] Comment on above: Performed By: #### B MP, PREGQNT #### [facility] [address] [place] [address] Dr. Angelica Smith Potassium [Moles/Vol] 3.5 mmol/L Normal 3.5-5.1 [facility] Comment on above: Performed By: #### B MEGHAN, PREGQNT #### [facility] [address] [place] [address] Dr. Angelica Smith Sodium [Moles/Vol] 139 mmol/L Normal 136-145 [facility] Comment on above: Performed By: #### B MEGHAN, PREGQNT #### [facility] [address] [place] [address] Dr. Angelica Smith Urea nitrogen [Mass/Vol] 8.0 mg/dL Normal 7.0-18.0 [facility] Comment on above: Performed By: #### B MEGHAN, PREGQNT #### [facility] [address] [place] [address] Dr. Angelica Smith Urea nitrogen/Creatinine [Mass ratio] 11.3 mg/mg Normal [facility] Comment on above: Performed By: #### B MEGHAN, PREGQNT #### [facility] [address] [place] [address] Dr. Angelica Smith URINE MICROSCOPIC ONLYon BACTERIA NONE SEEN Normal NONE SEEN [facility] Comment on above: Performed By: #### Gladis BUSBY UMICRO #### [facility] [address] [place] [address] Dr. Angelica Smith Bacteria identified Cx Nom (U) NOT INDICATED Normal [facility] Comment on above: Performed By: #### Gladis BUSBY UMICRO #### [facility] [address] [place] [address] Dr. Angelica Smith CAST NONE SEEN Normal NONE SEEN [facility] Comment on above: Performed By: #### Gladis BUSBY UMICRO #### [facility] [address] [place] [address] Dr. Angelica Smith Crystals LM Nom (Urine sed) NONE SEEN Normal NONE SEEN [facility] Comment on above: Performed By: #### Gladis BUSBY UMICRO #### [facility] [address] [place] [address] Dr. Angelica Smith Epithelial cells LM Ql (Urine sed) FEW Abnormal NONE SEEN /RARE [facility] Comment on above: Performed By: #### VESTA OJEDA #### [facility] [address] [place] [address] Dr. Angelica Smith MUCOUS NONE SEEN Normal NONE SEEN [facility] Comment on above: Performed By: #### TOREY OJEDARO #### [facility] [address] [place] [address] Dr. Angelica Smith RBC 0-2 Normal 0-2 [facility] Comment on above: Performed By: #### TOREY OJEDARO #### [facility] [address] [place] [address] Dr. Angelica Smith WBC NONE SEEN Normal NONE SEEN [facility] Comment on above: Performed By: #### VESTA OJEDA #### [facility] [address] [place] [address] Dr. Angelica Smith PREG QUANT HCGon 09-24-2022 HCG QUANT 7 mIU/mL Normal [facility] Comment on above: Performed By: #### P REGQNT #### [facility] [address] [place] [address] Dr. Angelica Smith HCG RANGE SEE BELOW Normal [facility] Comment on above: Result Comment: 5-50 0.2-1 WEEK 50-500 1-2 WEEKS 100-5,000 2-3 WEEKS 500-10,000 3-4 WEEKS 1,000-50,000 4-5 WEEKS 10,000-100,000 5-6 WEEKS 15,000-200,000 6-8 WEEKS 10,000-100,000 2-3 MONTHS Performed By: #### P REGQNT #### [facility] [address] [place] [address] Dr. Angelica Smith PREG QUANT HCGon 09-22-2022 HCG QUANT 14 mIU/mL Normal [facility] Comment on above: Performed By: #### P REGQNT #### [facility] [address] [place] [address] Dr. Angelica Smith HCG RANGE SEE BELOW Normal [facility] Comment on above: Result Comment: 5-50 0.2-1 WEEK 50-500 1-2 WEEKS 100-5,000 2-3 WEEKS 500-10,000 3-4 WEEKS 1,000-50,000 4-5 WEEKS 10,000-100,000 5-6 WEEKS 15,000-200,000 6-8 WEEKS 10,000-100,000 2-3 MONTHS Performed By: #### P REGQNT #### [facility] [address] [address] [address] Angelica Smith Albumin [Mass/volume] in Ser um or PlasmaOrdered By: Donavon Yanes on 08-11-2022 Albumin [Mass/Vol] 4.0 g/dL 3.2-5.5 [facility] Bilirubin Test strip Ql (U)O rdered By: Donavon Yanes on 08-11-2022 Bilirubin Ql (U) Negative Negative [facility] Color Auto (U)Ordered By: Kunal Yanes on 08-11-2022 Color (U) Yellow Yellow [facility] Creatinine and Glomerular fi ltration rate.predicted panel (S/P/Bld)Ordered By: Donavon Yanes on 08-11-2022 Creatinine [Mass/Vol] 0.71 mg/dL 0.44-1.03 [facility] Direct bilirubin measurement Ordered By: Donavon Yanes on 08-11-2022 Bilirubin.direct [Mass/Vol] 0.2 mg/dL 0.0-0.4 [facility] Estimated glomerular filtrat ion rate (GFR) non- AmericanOrdered By: Donavon Yanes on 08-11-2022 GFR/1.73 sq M.predicted among non-blacks MDRD (S/P/Bld) [Vol rate/Area] > 60 mL/Min [facility] Globulin Calc (S) [Mass/Vol] Ordered By: Donavon Yanes on 08-11-2022 Globulin (S) [Mass/Vol] 2.9 g/dL F [facility] Ketones Auto test strip (U) [Mass/Vol]Ordered By: Donavon Yanes on 08-11-2022 Ketones (U) [Mass/Vol] Negative Negative [facility] Nitrite Test strip Ql (U)Ord ered By: Donavon Yanes on 08-11-2022 Nitrite Ql (U) Negative Negative [facility] No Panel InformationOrdered By: Donavon Yanes on 08-11-2022 Estimated GFR () > 60 mL/Min [facility] Comment on above: GFR estimated refere nce range: According to KDOQI guidelines, <60 ml/min/1.73m2 is sufficient to diagnose a patient with chronic kidney disease. Pharmacy Creatinine Clearance (Chem N/A [facility] Protein Auto test strip (U) [Mass/Vol]Ordered By: Donavon Yanes on 08-11-2022 Protein (U) [Mass/Vol] Negative Negative [facility] Protein [Mass/volume] in Ser um or PlasmaOrdered By: Donavon Yanes on 08-11-2022 Protein [Mass/Vol] 6.9 g/dL 6.1-7.9 [facility] Serum or plasma alanine perry otransferase measurement without P-5'-P (enzymatic activiOrdered By: Donavon Yanes on 08-11-2022 ALT No additional P-5'-P [Catalytic activity/Vol] 12 U/L 1060 [facility] Serum or plasma albumin/glob ulin mass ratioOrdered By: Donavon Yanes on 08-11-2022 Albumin/Globulin [Mass ratio] 1.4 {ratio} [facility] Serum or plasma alkaline blair sphatase measurement (enzymatic activity/volume)Ordered By: Donavon Yanes on 08-11-2022 ALP [Catalytic activity/Vol] 47 U/L 32-92 [facility] Serum or plasma anion gap de terminationOrdered By: Donavon Yanes on 08-11-2022 Anion gap [Moles/Vol] 8.3 mmol/L 6.0-15.0 [facility] Serum or plasma aspartate am inotransferase measurement (enzymatic activity/volume)Ordered By: Donavon Yanes on 08-11-2022 AST [Catalytic activity/Vol] 19 U/L 10-42 [facility] Serum or plasma calcium michael urement (mass/volume)Ordered By: Donavon Yanes on 08-11-2022 Calcium [Mass/Vol] 9.4 mg/dL 8.2-10.2 [facility] Serum or plasma chloride mandeep surement (moles/volume)Ordered By: Donavon Yanes on 08-11-2022 Chloride [Moles/Vol] 104 mmol/L 95-114 [facility] Serum or plasma glucose michael urement (mass/volume)Ordered By: Donavon Yanes on 08-11-2022 Glucose [Mass/Vol] 81 mg/dL 70-100 [facility] Comment on above: ADA recommended refe rence rangeRandom Glucose Reference Range is dependent on time and content of last meal. Glucose of more than 200 mg/dL in a nonstressed, ambulatory subject supports the diagnosis of Diabetes Mellitus. Serum or plasma non-glucuron idated bilirubin measurement (mass/volume)Ordered By: Donavon Yanes on 08-11-2022 Bilirubin.indirect [Mass/Vol] 2.0 mg/dL [facility] Serum or plasma potassium me asurement (moles/volume)Ordered By: Donavon Yanes on 08-11-2022 Potassium [Moles/Vol] 3.9 mmol/L 3.5-5.1 [facility] Serum or plasma sodium measu rement (moles/volume)Ordered By: Donavon Yanes on 08-11-2022 Sodium [Moles/Vol] 135 mmol/L 136-146 [facility] Serum or plasma total biliru bin measurement (mass/volume)Ordered By: Donavon Yanes on 08-11-2022 Bilirubin [Mass/Vol] 2.2 mg/dL 0.3-1.2 [facility] Comment on above: Samples from patient s who have taken Naproxen have shown spurious elevation in Total Bilirubin levels. A metabolite of Naproxen, O-desmethylnaproxen, has been shown to interfere with the Radhika method for measuring Total Bilirubin. Serum or plasma total carbon dioxide measurement (moles/volume)Ordered By: Donavon Yanes on 08-11-2022 CO2 [Moles/Vol] 26.6 mmol/L 22.0-30.0 [facility] Serum or plasma urea nitroge n measurement (mass/volume)Ordered By: Donavon Yanes on 08-11-2022 Urea nitrogen [Mass/Vol] 10 mg/dL 06-12 [facility] Specific gravity Auto test s trip (U) [Rel density]Ordered By: Donavon Yanes on 08-11-2022 Specific gravity (U) [Rel density] 1.007 1.001-1.03 0 [facility] Urine clarity by refractomet ry automatedOrdered By: Donavon Yanes on 08-11-2022 Clarity Refractometry automated (U) Clear Clear [facility] Urine glucose measurement by automated test strip (mass/volume)Ordered By: Donavon Yanes on 08-11-2022 Glucose Auto test strip (U) [Mass/Vol] Normal mg/dL Normal [facility] Urine hemoglobin detection b y automated test stripOrdered By: Donavon Yanes on 08-11-2022 Hemoglobin Auto test strip Ql (U) Negative Negative [facility] Urine leukocyte esterase det ection by automated test stripOrdered By: Donavon Yanes on 08-11-2022 Leukocyte esterase Auto test strip Ql (U) Negative Negative [facility] Urobilinogen Auto test strip (U) [Mass/Vol]Ordered By: Donavon Yanes on 08-11-2022 Urobilinogen (U) [Mass/Vol] Normal mg/dL Normal [facility] pH Auto test strip (U)Ordere d By: Donavon Yanes on 08-11-2022 pH (U) 6.0 [pH] 5.0-9.0 [facility] Albumin [Mass/volume] in Ser um or PlasmaOrdered By: Donavon Yanes on 06-18-2022 Albumin [Mass/Vol] 4.2 g/dL 3.2-5.5 [facility] Basophils Auto (Bld) [#/Vol] Ordered By: Donavon Yanes on 06-18-2022 Basophils (Bld) [#/Vol] 0.0 10*3/uL 0.0-0.2 [facility] Basophils/100 WBC Auto (Bld) Ordered By: Donavon Yanes on 06-18-2022 Basophils/100 WBC (Bld) 0.5 % . F [facility] Blood hemoglobin measurement (mass/volume)Ordered By: Donavon Yanes on 06-18-2022 Hemoglobin (Bld) [Mass/Vol] 13.3 g/dL 11.8-15.4 [facility] Blood leukocytes automated c ount (number/volume)Ordered By: Donavon Yanes on 06-18-2022 WBC (Bld) [#/Vol] 6.9 10*3/uL 4.5-11.0 [facility] Cholesterol [Mass/volume] in Serum or PlasmaOrdered By: Donavon Yanes on 06-18-2022 Cholesterol [Mass/Vol] 143 mg/dL 140-200 [facility] Comment on above: Chol less than 200 m g/dl low riskChol 201-239 mg/dl borderline riskChol 240 mg/dl and greater high risk Cholesterol in LDL Calc [Mas s/Vol]Ordered By: Donavon Yanes on 06-18-2022 Cholesterol in LDL [Mass/Vol] 83 mg/dL 0-100 [facility] Comment on above: LDL ATP III CLASSIFI CATIONLDL less than 100 mg/dL OptimalLDL 100-129 mg/dL Near or above optimalLDL 130-159 mg/dL Borderline highLDL 160-189 mg/dL HighLDL greater than 189 mg/dL Very high Cholesterol in VLDL Calc [Ma ss/Vol]Ordered By: Donavon Yanes on 06-18-2022 Cholesterol in VLDL [Mass/Vol] 14 mg/dL [facility] Creatinine [Mass/volume] in UrineOrdered By: Donavon Yanes on 06-18-2022 Creatinine (U) [Mass/Vol] 113.4 mg/dL [facility] Comment on above: No reference range e stablished Creatinine and Glomerular fi ltration rate.predicted panel (S/P/Bld)Ordered By: Donavon Yanes on 06-18-2022 Creatinine [Mass/Vol] 0.70 mg/dL 0.44-1.03 [facility] Eosinophils Auto (Bld) [#/Vo l]Ordered By: Donavon Yanes on 06-18-2022 Eosinophils (Bld) [#/Vol] 0.1 10*3/uL 0.0-0.45 [facility] Eosinophils/100 WBC Auto (Bl d)Ordered By: Donavon Yanes on 06-18-2022 Eosinophils/100 WBC (Bld) 0.9 % . [facility] Erythrocyte distribution wid th Auto (RBC) [Ratio]Ordered By: Donavon Yanes on 06-18-2022 Erythrocyte distribution width (RBC) [Ratio] 12.4 % 11.9-15.3 [facility] Estimated glomerular filtrat ion rate (GFR) non- AmericanOrdered By: Donavon Yanes on 06-18-2022 GFR/1.73 sq M.predicted among non-blacks MDRD (S/P/Bld) [Vol rate/Area] > 60 mL/Min [facility] Globulin Calc (S) [Mass/Vol] Ordered By: Donavon Yanes on 06-18-2022 Globulin (S) [Mass/Vol] 2.5 g/dL F [facility] Glucose mean value [Mass/vol ume] in Blood Estimated from glycated hemoglobinOrdered By: Donavon Yanes on 06-18-2022 Average glucose Estimated from glycated hemoglobin (Bld) [Mass/Vol] 100 mg/dL [facility] Hematocrit Auto (Bld) [Volum e fraction]Ordered By: Donavon Yanes on 06-18-2022 Hematocrit (Bld) [Volume fraction] 39.3 % 34.0-46.4 [facility] Hemoglobin A1c percentageOrd ered By: Donavon Yanes on 06-18-2022 HbA1c (Bld) [Mass fraction] 5.1 % 4.3-5.6 [facility] Comment on above: Increased risk for d iabetes: 5.7 - 6.4diabetes: >6.4glycemic control for adults with diabetes: <7.0 Laboratory - Hematology and Cell countsOrdered By: Donavon Yanes on 06-18-2022 Nucleated RBC/100 WBC (Bld) [Ratio] 0.1 % 0-0.5 [facility] Lymphocytes Auto (Bld) [#/Vo l]Ordered By: Donavon Yanes on 06-18-2022 Lymphocytes (Bld) [#/Vol] 1.9 10*3/uL 1.00-4.8 [facility] Lymphocytes/100 WBC Auto (Bl d)Ordered By: Donavon Yanes on 06-18-2022 Lymphocytes/100 WBC (Bld) 27.9 % . [facility] MCH Auto (RBC) [Entitic mass ]Ordered By: Donavon Yanes on 06-18-2022 MCH (RBC) [Entitic mass] 30.5 pg 24.7-34.3 [facility] MCHC Auto (RBC) [Mass/Vol]Or dered By: Donavon Yanes on 06-18-2022 MCHC (RBC) [Mass/Vol] 33.7 g/dL 32.0-35.0 [facility] MCV Auto (RBC) [Entitic vol] Ordered By: Donavon Yanes on 06-18-2022 MCV (RBC) [Entitic vol] 90.2 fL 80-100 F [facility] Monocytes Auto (Bld) [#/Vol] Ordered By: Donavon Yanes on 06-18-2022 Monocytes (Bld) [#/Vol] 0.3 10*3/uL 0.0-0.8 [facility] Monocytes/100 WBC Auto (Bld) Ordered By: Donavon Yanes on 06-18-2022 Monocytes/100 WBC (Bld) 4.9 % . F [facility] Neutrophils Auto (Bld) [#/Vo l]Ordered By: Donavon Yanes on 06-18-2022 Neutrophils (Bld) [#/Vol] 4.6 10*3/uL 1.8-7.7 [facility] Neutrophils/100 WBC Auto (Bl d)Ordered By: Donavon Yanes on 06-18-2022 Neutrophils/100 WBC (Bld) 65.8 % . [facility] No Panel InformationOrdered By: Donavon Yanes on 06-18-2022 Estimated GFR () > 60 mL/Min [facility] Comment on above: GFR estimated refere nce range: According to KDOQI guidelines, <60 ml/min/1.73m2 is sufficient to diagnose a patient with chronic kidney disease. Pharmacy Creatinine Clearance (Chem N/A [facility] Platelet mean volume Auto (B ld) [Entitic vol]Ordered By: Donavon Yanes on 06-18-2022 Platelet mean volume (Bld) [Entitic vol] 8.8 fL 6.3-10.7 [facility] Platelets Auto (Bld) [#/Vol] Ordered By: Donavon Yanes on 06-18-2022 Platelets (Bld) [#/Vol] 307 10*3/uL 150-450 [facility] Protein [Mass/volume] in Ser um or PlasmaOrdered By: Donavon Yanes on 06-18-2022 Protein [Mass/Vol] 6.7 g/dL 6.1-7.9 [facility] RBC Auto (Bld) [#/Vol]Ordere d By: Donavon Yanes on 06-18-2022 RBC (Bld) [#/Vol] 4.36 10*6/uL 3.60-5.00 [facility] Serum or plasma alanine perry otransferase measurement without P-5'-P (enzymatic activiOrdered By: Donavon Yanes on 06-18-2022 ALT No additional P-5'-P [Catalytic activity/Vol] 14 U/L 10-60 [facility] Serum or plasma albumin/glob ulin mass ratioOrdered By: Donavon Yanes on 06-18-2022 Albumin/Globulin [Mass ratio] 1.7 {ratio} [facility] Serum or plasma alkaline blair sphatase measurement (enzymatic activity/volume)Ordered By: Donavon Yanes on 06-18-2022 ALP [Catalytic activity/Vol] 49 U/L 32-92 [facility] Serum or plasma anion gap de terminationOrdered By: Donavon Yanes on 06-18-2022 Anion gap [Moles/Vol] 10.0 mmol/L 6.0-15.0 [facility] Serum or plasma aspartate am inotransferase measurement (enzymatic activity/volume)Ordered By: Donavon Yanes on 06-18-2022 AST [Catalytic activity/Vol] 19 U/L 10-42 [facility] Serum or plasma calcium michael urement (mass/volume)Ordered By: Donavon Yanes on 06-18-2022 Calcium [Mass/Vol] 9.4 mg/dL 8.2-10.2 [facility] Serum or plasma chloride mandeep surement (moles/volume)Ordered By: Donavon Yanes on 06-18-2022 Chloride [Moles/Vol] 103 mmol/L 95-114 [facility] Serum or plasma glucose michael urement (mass/volume)Ordered By: Donavon Yanes on 06-18-2022 Glucose [Mass/Vol] 86 mg/dL 70-100 [facility] Comment on above: ADA recommended refe rence rangeRandom Glucose Reference Range is dependent on time and content of last meal. Glucose of more than 200 mg/dL in a nonstressed, ambulatory subject supports the diagnosis of Diabetes Mellitus. Serum or plasma high density lipoprotein (HDL) cholesterol measurementOrdered By: Donavon Yanes on 06-18-2022 Cholesterol in HDL [Mass/Vol] 46 mg/dL 35-85 [facility] Comment on above: HDL CHOL ATP-III CLA SSIFICATION Cardiovascular RiskHDL > or equal to 60 mg/dL LOWHDL < 40 mg/dL HIGH Serum or plasma potassium me asurement (moles/volume)Ordered By: Donavon Yanes on 06-18-2022 Potassium [Moles/Vol] 3.7 mmol/L 3.5-5.1 [facility] Serum or plasma sodium measu rement (moles/volume)Ordered By: Donavon Yanes on 06-18-2022 Sodium [Moles/Vol] 136 mmol/L 136-146 [facility] Serum or plasma total biliru bin measurement (mass/volume)Ordered By: Donavon Yanes on 06-18-2022 Bilirubin [Mass/Vol] 1.9 mg/dL 0.3-1.2 [facility] Comment on above: Samples from patient s who have taken Naproxen have shown spurious elevation in Total Bilirubin levels. A metabolite of Naproxen, O-desmethylnaproxen, has been shown to interfere with the Oren-Jarek method for measuring Total Bilirubin. Serum or plasma total carbon dioxide measurement (moles/volume)Ordered By: Donavon Yanes on 06-18-2022 CO2 [Moles/Vol] 26.7 mmol/L 22.0-30.0 [facility] Serum or plasma total choles terol/high density lipoprotein (HDL) cholesterol mass ratOrdered By: Donavon Yanes on 06-18-2022 Cholesterol.total/Adriana sterol in HDL [Mass ratio] 3.1 {ratio} <5.0 [facility] Serum or plasma urea nitroge n measurement (mass/volume)Ordered By: Donavon Yanes on 06-18-2022 Urea nitrogen [Mass/Vol] 5 mg/dL 9- [facility] TSH DL <= 0.005 mIU/L QnOrde red By: Donavon Yanes on 06-18-2022 TSH Qn 0.74 m[IU]/L 0.45-5.33 [facility] Thyroxine (T4) free [Mass/vo lume] in Serum or PlasmaOrdered By: Donavon Yanes on 06-18-2022 Free T4 [Mass/Vol] 0.86 ng/dL 0.61-1.12 [facility] Triglyceride [Mass/volume] i n Serum or PlasmaOrdered By: Donavon Yanes on 06-18-2022 Triglyceride [Mass/Vol] 70 mg/dL 35-149 [facility] Comment on above: TRIG ATP III [...] 20 mg/L (U) [Mass/Vol] 67.2 mg/dL 0.0-1.8 [facility] Urine microalbumin/creatinin e mass ratioOrdered By: Donavon Yanes on 06-18-2022 Albumin/Creatinine DL <= 20 mg/L (U) [Mass ratio] 592.0 mg/g 0.0-30.0 [facility] Comment on above: 30-300 mg/g indicate s an increased risk for diabetic nephropathy. Greater than 300 mg/g is consistent with clinical nephropathy. (Am. J. Kidney Disease 1995, 25:107) PAP ACOG PANEL 2: 21 to 29on 03-19-2022 . . Normal [facility] Comment on above: Performed By: #### [id number] #### [facility] [address] [place] [address] Dr. Angelica Smith Age Gdln ACOG Testing 21-29 Normal [facility] Comment on above: Performed By: #### [id number] #### [facility] [address] [place] [address] Dr. Angelica Smith DIAGNOSIS: Comment [facility] Comment on above: Result Comment: NEGA TIVE FOR INTRAEPITHELIAL LESION OR MALIGNANCY. Performed By: #### [id number] #### [facility] [address] [address] [address] Angelica Smith Methodology: Comment [facility] Comment on above: Result Comment: This liquid based ThinPrep(R) pap test was screened with the use of an image guided system. Performed By: #### [id number] #### [facility] [address] [place] [address] Dr. Angelica Smith Note: Comment [facility] Comment on above: Result Comment: The Pap smear is a screening test designed to aid in the detection of premalignant and malignant conditions of the uterine cervix. It is not a diagnostic procedure and should not be used as the sole means of detecting cervical cancer. Both false-positive and false-negative reports do occur. . Performed By: #### [id number] #### [facility] [address] [place] [address] Dr. Angelica Smith Performed by: Comment [facility] Comment on above: Result Comment: Sherry Torres, Make Ready Worker (ASCP) Performed By: #### [id number] #### [facility] [address] [place] [address] Dr. Angelica Smith Reflex Criteria: Comment [facility] Comment on above: Result Comment: The HPV DNA reflex criteria were not met with this specimen result therefore, no HPV testing was performed. . Performed By: #### [id number] #### [facility] [address] [place] [address] Dr. Angelica Smith Specimen adequacy: Comment [facility] Comment on above: Result Comment: Sati sfactory for evaluation. Endocervical and/or squamous metaplastic cells (endocervical component) are present. Performed By: #### [id number] #### [facility] [address] [place] [address] Dr. Angelica Smith Vital Signs Date Time Vital Sign Value Performing Clinician Facility 08-16-2024 08:49-0500 Body mass index (BMI) [Ratio] 22.32 kg/m2 Raeann CHOUDHURY Work Phone: [facility] 08-16-2024 08:49-0500 Body weight 68.55 kg Raeann Mahoney PA Work Phone: [facility] 08-16-2024 08:49-0500 Diastolic blood pressure 60 mm[Hg] Raeann Mahoney PA Work Phone: [facility] 08-16-2024 08:49-0500 Systolic blood pressure 100 mm[Hg] Raeann Mahoney PA Work Phone: [facility] 08-03-2024 09:12-0500 Body mass index (BMI) [Ratio] 22.36 kg/m2 Jhonathan Keila DO Work Phone: [facility] 08-03-2024 09:12-0500 Body weight 68.67 kg Jhonathan Keila DO Work Phone: [facility] 08-03-2024 09:12-0500 Diastolic blood pressure 64 mm[Hg] Jhonathan Keila DO Work Phone: [facility] 08-03-2024 09:12-0500 Systolic blood pressure 102 mm[Hg] Jhonathan Keila DO Work Phone: [facility] 07-18-2024 08:56-0400 Body mass index (BMI) [Ratio] 22.15 kg/m2 Raeann Mahoney PA Work Phone: [facility] 07-18-2024 08:56-0400 Body weight 68.04 kg Raeann Mahoney PA Work Phone: [facility] 07-18-2024 08:56-0400 Diastolic blood pressure 62 mm[Hg] Raeann Mahoney PA Work Phone: [facility] 07-18-2024 08:56-0400 Systolic blood pressure 102 mm[Hg] Raeann Maru PA Work Phone: [facility] 07-04-2024 10:01-0400 Body mass index (BMI) [Ratio] 21.71 kg/m2 Raeann Allakaket PA Work Phone: [facility] 07-04-2024 10:01-0400 Body weight 66.68 kg Raeann Maru PA Work Phone: [facility] 07-04-2024 10:01-0400 Diastolic blood pressure 60 mm[Hg] Raeann Maru PA Work Phone: [facility] 07-04-2024 10:01-0400 Systolic blood pressure 100 mm[Hg] Raeann Allakaket PA Work Phone: [facility] 05-23-2024 12:00-0400 Body temperature 97.7 [degF] [employer]BER[employer]C Raeann Warchol Work Phone: [facility] 05-23-2024 12:00-0400 Diastolic blood pressure 63 mm[Hg] [employer] MEMBER-C Raeann Warchol Work Phone: [facility] 05-23-2024 12:00-0400 Heart rate 74 /min [employer] Raeann Warchol Work Phone: [facility] 05-23-2024 12:00-0400 Respiratory rate 16 /min [employer] Raeann Warchol Work Phone: [facility] 05-23-2024 12:00-0400 SaO2% (BldA) [Mass fraction] 98 % [employer]C Raeann Warchol Work Phone: [facility] 05-23-2024 12:00-0400 Systolic blood pressure 95 mm[Hg] [employer] MEMBER-C Raeann Warchol Work Phone: [facility] 05-23-2024 11:36-0400 Body height 175.26 cm [employer]C Raeann Warchol Work Phone: [facility] 05-23-2024 11:36-0400 Body weight 62.14 kg [employer]C Raeann Warchol Work Phone: [facility] 10-21-2023 09:48-0500 Body height 175.3 cm Raeann Warchol [employer] MEMBER Work Phone: [facility] 10-21-2023 09:48-0500 Body mass index (BMI) [Ratio] 19.05 kg/m2 Raeann Warchol [employer]BER Work Phone: [facility] 10-21-2023 09:48-0500 Body temperature 98.2 [degF] Raeann Warchol [employer] MEMBER Work Phone: [facility] 10-21-2023 09:48-0500 Body weight 58.51 kg Raeann Warchol [employer] MEMBER Work Phone: [facility] 10-21-2023 09:48-0500 Diastolic blood pressure 60 mm[Hg] Raeann Warchol [employer] MEMBER Work Phone: [facility] 10-21-2023 09:48-0500 Heart rate 81 /min Raeann Warchol [employer] MEMBER Work Phone: [facility] 10-21-2023 09:48-0500 SaO2% (BldA) [Mass fraction] 100 % Raeann Warchol [employer] MEMBER Work Phone: [facility] 10-21-2023 09:48-0500 Systolic blood pressure 112 mm[Hg] Raeann Warchol [employer] MEMBER Work Phone: [facility] 04-10-2022 10:10-0400 Body height 172.72 cm Kirstin Hernandez Other [employer] Other 04-10-2022 10:10-0400 Body mass index (BMI) [Ratio] 20.37 kg/m2 Kirstin Hernandez Other [employer] Other 04-10-2022 10:10-0400 Body temperature 98.1 [degF] Kirstin Hernandez Other [employer] Other 04-10-2022 10:10-0400 Body weight 60.78 kg Kirstin Hernandez Other [employer] Other 04-10-2022 10:10-0400 Diastolic blood pressure 62 mm[Hg] Kirstin Hernandez Other [employer] Other 04-10-2022 10:10-0400 Respiratory rate 16 /min Kirstin Hernandez Other [employer] Other 04-10-2022 10:10-0400 SaO2% (BldA) [Mass fraction] 98 % Kirstin Hernandez Other [employer] Other 04-10-2022 10:10-0400 Systolic blood pressure 104 mm[Hg] Kirstin Hernandez Other [employer] Other 01-02-2022 11:10-0400 Body height 172.72 cm Kirstin Hernandez Other [employer] Other 01-02-2022 11:10-0400 Body mass index (BMI) [Ratio] 21.59 kg/m2 Kirstin Hernandez Other [employer] Other 01-02-2022 11:10-0400 Body temperature 98 [degF] Kirstin Hernandez Other [employer] Other 01-02-2022 11:10-0400 Body weight 64.41 kg Kirstin Hernandez Other [employer] Other 01-02-2022 11:10-0400 Diastolic blood pressure 68 mm[Hg] Kirstin Hernandez Other [employer] Other 01-02-2022 11:10-0400 Respiratory rate 16 /min Kirstin Hernandez Other [employer] Other 01-02-2022 11:10-0400 SaO2% (BldA) [Mass fraction] 99 % Kirstin Hernandez Other [employer] Other 01-02-2022 11:10-0400 Systolic blood pressure 104 mm[Hg] Kirstin Hernandez Other [employer] Other 09-03-2021 11:10-0500 Body height 172.72 cm Kirstin Hernandez Other [employer] Other 09-03-2021 11:10-0500 Body mass index (BMI) [Ratio] 21.89 kg/m2 Kirstin Hernandez Other [employer] Other 09-03-2021 11:10-0500 Body temperature 97.3 [degF] Kirstin Hernandez Other [employer] Other 09-03-2021 11:10-0500 Body weight 65.32 kg Kirstin Hernandez Other [employer] Other 09-03-2021 11:10-0500 Diastolic blood pressure 60 mm[Hg] Kirstin Hernandez Other [employer] Other 09-03-2021 11:10-0500 SaO2% (BldA) [Mass fraction] 95 % Kirstin Hernandez Other [employer] Other 09-03-2021 11:10-0500 Systolic blood pressure 104 mm[Hg] Kirstin Hernandez Other [employer] Other 07-07-2021 14:00-0400 Body height 172.72 cm Kirstin Hernandez Other [employer] Other 07-07-2021 14:00-0400 Body mass index (BMI) [Ratio] 22.04 kg/m2 Kirstin Hernandez Other [employer] Other 07-07-2021 14:00-0400 Body temperature 98.1 [degF] Kirstin Hernandez Other [employer] Other 07-07-2021 14:00-0400 Body weight 65.77 kg Kirstin Hernandez Other [employer] Other 07-07-2021 14:00-0400 Diastolic blood pressure 70 mm[Hg] Kirstin Diegofredy Other [employer] Other 07-07-2021 14:00-0400 Respiratory rate 18 /min Kirstin Hernandez Other [employer] Other 07-07-2021 14:00-0400 SaO2% (BldA) [Mass fraction] 99 % Kirstin Hernandez Other [employer] Other 07-07-2021 14:00-0400 Systolic blood pressure 110 mm[Hg] Kirstin Hernandez Other [employer] Other Encounters Encounter Date Encounter Type Care Provider Facility Start: 08-16-2024 End: 08-16-2024 Bamboo flowsheet Raeann CHOUDHURY Work Phone: [facility] Start: 08-16-2024 End: 08-16-2024 Bamboo flowsheet Raeann CHOUDHURY Work Phone: [facility] Start: 08-16-2024 End: 08-16-2024 Office outpatient visit 15 minutes Raeann CHOUDHURY Work Phone: [facility] Comment on above: 36 weeks gestation o f ; Third trimester Start: 08-03-2024 End: 08-03-2024 Bamboo flowsheet Jhonathan Pedraza DO Work Phone: [facility] Start: 08-03-2024 End: 08-03-2024 Bamboo flowsheet Jhonathan Keila DO Work Phone: [facility] Start: 08-03-2024 End: 08-03-2024 flow sheet Jhonathan Keila DO Work Phone: [facility] Comment on above: Third trimester preg marlene; 34 weeks gestation of ; Other iron deficiency anemia Start: 08-03-2024 End: 08-03-2024 ambulatory JHONATHAN KEILA Not Available Start: 07-18-2024 End: 07-18-2024 Bamboo flowsheet Raeann Mahoney PA Work Phone: [facility] Start: 07-18-2024 End: 07-18-2024 Bamboo flowsheet Raeann Mahoney PA Work Phone: [facility] Start: 07-18-2024 End: 07-18-2024 flow sheet Raeann CHOUDHURY Work Phone: [facility] Comment on above: Third trimester preg marlene; 32 weeks gestation of Start: 07-18-2024 End: 07-18-2024 ambulatory RAEANN MARU Not Available Start: 07-13-2024 End: 07-13-2024 Clinisync Result Encounter Raeann CHOUDHURY Work Phone: [facility] Unsolicited Start: 07-13-2024 End: 07-13-2024 Clinisync Result Encounter Raeann CHOUDHURY Work Phone: [facility] Unsolicited Start: 07-04-2024 End: 07-04-2024 Bamboo flowsheet Raeann Mahoney PA Work Phone: [facility] Start: 07-04-2024 End: 07-04-2024 Bamboo flowsheet Raeann Mahoney PA Work Phone: [facility] Start: 07-04-2024 End: 07-04-2024 ambulatory RAEANN MARU Not Available Start: 07-04-2024 End: 07-04-2024 flow sheet Raeann Mahoney PA Work Phone: [facility] Comment on above: 30 weeks gestation o f ; Third trimester ; Screening for diabetes mellitus (DM); Gastroesophageal reflux in ; Nausea Start: 06-19-2024 End: 06-19-2024 ambulatory JHONATHAN KEILA Not Available Start: 05-26-2024 End: 05-26-2024 ambulatory ROHAN CHAUHAN Not Available Start: 05-23-2024 End: 05-23-2024 Patient encounter procedure [employer]BER-C Raeann Jang Work Phone: [facility] Start: 05-23-2024 End: 05-23-2024 ambulatory [employer] MEMBER-C Raeann Jang Work Phone: [facility] Work Phone: Start: 05-22-2024 End: 05-22-2024 ambulatory Raeann Jang Facility:[facility] Start: 04-14-2024 End: 04-14-2024 ambulatory Clarisa MIKE Facility:[facility] Start: 03-30-2024 End: 03-30-2024 ambulatory GINNY Ansari PHILOMENA Not Available Start: 03-30-2024 End: 03-30-2024 Patient encounter procedure [employer] MEMBER-C Raeann Jang Work Phone: [facility] [place] Work Phone: Start: 03-30-2024 End: 03-30-2024 ambulatory [employer]BER-C Raeann Jang Work Phone: [facility] Work Phone: Start: 03-27-2024 End: 03-27-2024 ambulatory JHONATHAN KEILA Not Available Start: 02-28-2024 End: 02-28-2024 ambulatory JHONATHAN KEILA Not Available Start: 02-04-2024 End: 02-04-2024 ambulatory RAEANN JANG Not Available Start: 12-21-2023 End: 12-21-2023 ambulatory ESME JOSHI Not Available Start: 12-15-2023 ambulatory [facility] Work Phone: Start: 12-15-2023 Non-patient / [facility]visit [facility] Work Phone: Start: 10-21-2023 End: 10-21-2023 ambulatory RAEANN JANG Not Available Start: 10-21-2023 End: 10-21-2023 Office outpatient visit 15 minutes Raeann Jang [employer] MEMBER Work Phone: [facility] Comment on above: Attention-deficit hy peractivity disorder, other type (CMS/HCC) (Primary Dx); Bilateral impacted cerumen Start: 09-02-2023 End: 09-02-2023 ambulatory Tyler Armstrong Facility:[facility] Start: 08-31-2023 End: 08-31-2023 ambulatory RAEANN BRIANCHOL Not Available Start: 08-19-2023 End: 08-19-2023 Patient encounter procedure [facility] Work Phone: [facility] Start: 08-19-2023 End: 08-19-2023 [facility]ulatory [facility] Work Phone: [facility] Work Phone: Start: 08-18-2023 End: 08-18-2023 ambulatory RAEANN BRINACHOL Not Available Start: 08-10-2023 End: 08-10-2023 Patient encounter procedure [facility] Work Phone: [facility] [place] Work Phone: Start: 08-10-2023 End: 08-10-2023 ambulatory [facility] Work Phone: [facility] Work Phone: Start: 07-20-2023 End: 07-20-2023 Patient encounter procedure [facility] Work Phone: [facility] [place] Work Phone: Start: 07-20-2023 End: 07-20-2023 ambulatory [facility] Work Phone: [facility] Work Phone: Start: 05-27-2023 End: 05-27-2023 ambulatory [facility] Work Phone: [facility] Work Phone: Start: 05-27-2023 End: 05-27-2023 Patient encounter procedure [facility] Work Phone: [facility] [place] Work Phone: Start: 01-12-2023 End: 01-12-2023 ambulatory Services [facility] Work Phone: [facility] Work Phone: Start: 01-12-2023 End: 01-12-2023 Departed Referred Services [facility] Work Phone: [facility] Start: 12-09-2022 End: 12-09-2022 ambulatory DO Kirstin Hernandez Work Phone: [facility] Work Phone: Start: 12-09-2022 End: 12-09-2022 Departed Referred DO Kirstin Hernandez Work Phone: [facility] Start: 12-04-2022 End: 12-04-[address] JHONATHAN PEDRAZA . Facility:[facility] Start: 11-26-2022 Encounter for other preprocedural examination DR JHONATHAN PEDRAZA . [facility] Start: 11-26-2022 End: 11-26-2022 ambulatory DO Kirstin Hernandez Work Phone: [facility] Work Phone: Start: 11-26-2022 End: 11-26-2022 Patient encounter procedure DO Kirstin Hernandez Work Phone: [facility] [place] [facility] Work Phone: Start: 11-24-2022 End: 11-25-2022 ambulatory PRIMITIVO CHAU Facility:H1 Start: 11-24-2022 End: 11-25-2022 Encounter for other preprocedural examination PRIMITIVO CHAU Facility:H1 Start: 10-29-2022 End: 10-29-2022 ambulatory DO Kirstin Hernandez Work Phone: [facility] Work Phone: Start: 10-29-2022 End: 10-29-2022 Patient encounter procedure DO Kirstin Hernandez Work Phone: [facility]Ultrasound [facility] [place] Work Phone: Start: 10-20-2022 End: 10-20-2022 ambulatory DO Kirstin Hernandez Work Phone: [facility] Work Phone: Start: 10-20-2022 End: 10-20-2022 Departed Referred DO Kirstin Hernandez Work Phone: [facility] Start: 10-09-2022 End: 10-09-2022 Departed Referred DO Kirstin Hernandez Work Phone: [facility] Start: 10-02-[address] JHONATHAN PEDRAZA . Facili ty:H1 Start: 09-29-[address] JHONATHAN PEDRAZA . Facili ty:H1 Start: 09-28-2022 End: 09-28-2022 ambulatory HUMPHREY HOLLAND Facility:H1 Start: 09-23-[address] JHONATHAN PEDRAZA . Facili ty:H1 Start: 09-22-2022 End: 10-20-[address] JHONATHAN PEDRAZA . Facility:H1 Start: 08-11-2022 End: 08-11-2022 ambulatory DO Kirstin Hernandez Work Phone: [facility] Work Phone: Start: 08-11-2022 End: 08-11-2022 Patient encounter procedure DO Kirstin Hernandez Work Phone: [facility] [place] Start: 08-04-2022 End: 08-04-2022 ambulatory Kirstin Hernandez Other [employer] Other Start: 08-04-2022 Telephone encounter Kirstin Hernandez [facility] Start: 06-25-[address] JHONATHAN PEDRAZA . Facili ty:H1 Start: 06-18-2022 End: 06-18-2022 ambulatory DO Kirstin Hernandez Work Phone: [facility] Work Phone: Start: 06-18-2022 End: 06-18-2022 Patient encounter procedure DO Kirstin Hernandez Work Phone: [facility] [place] Start: 06-12-[address] JHONATHAN PEDRAZA . Facili ty:H1 Start: 06-08-[address] JHONATHAN PEDRAZA . Facili ty:H1 Start: 04-14-2022 End: 04-14-2022 ambulatory Kirstin Hernandez Other [employer] Other Start: 04-14-2022 Telephone encounter Kirstin Hernandez [facility] Start: 04-10-2022 End: 04-10-2022 ambulatory Kirstin Hernandez Other [employer] Other Start: 04-10-2022 Office outpatient vi sit 15 minutes Kirstin Hernandez [facility] Start: 03-24-[address] KIRSTIN HERNANDEZ Facilit y:H1 Start: 03-16-2022 End: 03-16-[address] JHONATHAN PEDRAZA . Facility:H1 Start: 03-10-2022 End: 03-10-2022 ambulatory Kirstin Hernandez Other [employer] Other Start: 03-10-2022 Telephone encounter Kirstin Hernandez [facility] Start: 01-02-2022 End: 01-02-2022 ambulatory Kirstin Hernandez Other [employer] Other Start: 01-02-2022 Office outpatient vi sit 25 minutes Kirstin Hernandez [facility] Start: 01-02-2022 Telephone encounter Kirstin [facility] Start: 12-08-2021 End: 12-08-2021 ambulatory Kirstin Hernandez Other [employer] Other Start: 12-08-2021 Telephone encounter Kirstin Hernandez [facility] Start: 12-02-2021 End: 12-02-2021 ambulatory Kirstin Hernandez Other [employer] Other Start: 12-02-2021 Telephone encounter Kirstin Hernandez [facility] Start: 09-03-2021 End: 09-03-2021 ambulatory Kirstin Hernandez Other [employer] Other Start: 09-03-2021 Office outpatient vi sit 15 minutes Kirstin Hernandez [facility] Start: 07-07-2021 Office outpatient vi sit 15 minutes Kirstin Hernandez [facility] Procedures Date Procedure Procedure Detail Performing Clinician Start: 08-16-2024 Urnls dip stick/tabl et rgnt non-auto w/o micrscp Raeann CHOUDHURY Work Phone: Start: 08-03-2024 Urnls dip stick/tabl et rgnt non-auto w/o micrscp Jhonathanvalerie Murciao DO Work Phone: Start: 07-18-2024 Urnls dip stick/tabl et rgnt non-auto w/o micrscp Raeann CHOUDHURY Work Phone: Start: 07-13-2024 ALL CBC WITH AUTO DIFF Raeann CHOUDHURY Work Phone: Start: 07-04-2024 Urnls dip stick/tabl et rgnt non-auto w/o micrscp Raeann CHOUDHURY Work Phone: Start: 03-30-2024 Respiratory Panel (PCR) [employer] MEMBER-C Raeann Jang Work Phone: Start: 08-10-2023 Respiratory Panel (PCR) Services [facility] Work Phone: Start: 12-09-2022 Respiratory Panel (PCR) DO Kirstin Cortezfredy Work Phone: Start: 11-26-2022 Computed tomography of abdomen and pelvis with contrast DO Kirstin Hernandez Work Phone: Start: 10-29-2022 Ultrasonography of b ilateral kidneys DO Kirstin Hernandez Work Phone: Start: 10-29-2022 US scan of gallbladder DO Kirstin Hernandez Work Phone: Plan of Treatment Date Care Activity Detail Author Start: 08-22-2024 End: 08-22-2024 Patient encounter procedure 08/22/2024 2:30 PM EST Routine [facility] [address] [place] [address] Jhonathan Pedraza [address] [place], [place] [id number] [facility] Start: 08-16-2024 End: 08-16-2025 Strep B DNA probe, amplification Strep B DNA probe, amplification Lab Routine Third trimester Expected: 08/16/2024 (Approximate), Expires: 08/16/2025 [facility] Work Phone: Comment on above: Expected: 08/16/2024 (Approximate), Expires: 08/16/2025 Start: 08-16-2024 End: 08-16-2024 Patient encounter procedure 08/16/2024 8:40 AM EST Routine [facility] [address] [place] [id number] Raeann Mahoney PA [address] [place] [address] [place] [address] [facility] Start: 08-03-2024 End: 08-03-2024 Patient encounter procedure 08/03/2024 9:10 AM EST Routine [facility] [address] [place] [id number] Jhonathan Pedraza, [place] [address] [facility] Start: 07-18-2024 End: 07-18-2024 Patient encounter procedure [facility] Comment on above: Arrived Start: 05-23-2024 [facility] Start: 05-23-2024 Hospital admission [facility] Start: 05-21-2024 Influenza vaccination Influenza Vacc ine (#1) [facility] Start: 12-15-2023 Patient referral [facility] Work Phone: Start: 01-12-2023 Bacteria identified in Urine by Culture Urine Culture [facility] 17-Hydroxyprogestero ne [Mass/volume] in Serum or Plasma [facility] Alternaria alternata IgE Ab [Units/volume] in Serum [facility] Cook Islander house dust mite IgE Ab [Units/volume] in Serum [facility] Cook Islander Omaha Ig E Ab [Units/volume] in Serum [facility] Androstenedione [Mass/volume] in Serum or Plasma [facility] Aspergillus fumigatu s IgE Ab [Units/volume] in Serum [facility] Shaffer's yeast IgE Ab [Units/volume] in Serum [facility] Banana IgE Ab [Units/volume] in Serum [facility] Barley IgE Ab [Units/volume] in Serum [facility] Beef IgE Ab [Units/volume] in Serum [facility] Bermuda grass IgE Ab [Units/volume] in Serum [facility] Boxelder IgE Ab [Units/volume] in Serum [facility] Cat dander IgG Ab [Units/volume] in Serum [facility] Cheese cheddar type IgE Ab [Units/volume] in Serum [facility] Chicken meat IgE Ab [Units/volume] in Serum [facility] Cladosporium herbaru m IgE Ab [Units/volume] in Serum [facility] Cockroach IgE Ab [Units/volume] in Serum [facility] Common Ragweed IgE A b [Units/volume] in Serum [facility] Stigler IgE Ab [Units/volume] in Serum [facility] Line [place] IgE Ab [Units/volume] in Serum [facility] Cow milk IgE Ab [Units/volume] in Serum [facility] Dog dander IgE Ab [Units/volume] in Serum [facility] Egg white IgE Ab [Units/volume] in Serum [facility] Estradiol (E2) [Mass/volume] in Serum or Plasma [facility] house dust mite IgE Ab [Units/volume] in Serum [facility] Gluten IgE Ab [Units/volume] in Serum [facility] Hemoglobin A1c/Hemoglobin.total in Blood Hemoglobin A1c Lab Routine Screening for diabetes mellitus (DM) Ordered: 07/04/2024 [facility] Work Phone: Comment on above: Ordered: 07/04/2024 HLA DQ antigen typing [facility] IgE [Units/volume] i n Serum or Plasma [facility] Insulin [Units/volum e] in Serum or Plasma [facility] Insulin [Units/volum e] in Serum or Plasma [facility] Lutropin [Units/volu me] in Serum or Plasma [facility] Mountain Juniper IgE Ab [Units/volume] in Serum [facility] Mouse urine proteins IgE Ab [Units/volume] in Serum [facility] Oat IgE Ab [Units/vo lume] in Serum [facility] Ware IgE Ab [Units/volume] in Serum [facility] Patient Education Antepartum Dis charge Instructions (FR) [facility] Work Phone: Patient referral [facility] Work Phone: Peanut IgE Ab [Units/volume] in Serum [facility] Pecan or [place] Domo e IgE Ab [Units/volume] in Serum [facility] Penicillium notatum IgE Ab [Units/volume] in Serum [facility] Pork IgE Ab [Units/volume] in Serum [facility] Potato IgE Ab [Units/volume] in Serum [facility] Progesterone [Mass/volume] in Serum or Plasma [facility] Rice IgE Ab [Units/volume] in Serum [facility] Rough Pigweed IgE Ab [Units/volume] in Serum [facility] Biloxi IgE Ab [Units/vo lume] in Serum [facility] Saltwort IgE Ab [Units/volume] in Serum [facility] Sheep Nassawadox IgE Ab [Units/volume] in Serum [facility] Silver Birch IgE Ab [Units/volume] in Serum [facility] Soybean IgE Ab [Units/volume] in Serum [facility] Testosterone Free [Mass/volume] in Serum or Plasma [facility] Testosterone Free [Mass/volume] in Serum or Plasma [facility] Donavon IgE Ab [Units/volume] in Serum [facility] Tomato IgE Ab [Units/volume] in Serum [facility] Gilman IgE Ab [Units/volume] in Serum [facility] Wheat IgE Ab [Units/volume] in Serum [facility] White Marquez IgE Ab [Units/volume] in Serum [facility] White Elm IgG Ab [Units/volume] in Serum [facility] White mulberry IgE A b [Units/volume] in Serum [facility] Brookings IgE Ab [Units/volume] in Serum [facility] Immunizations Immunization Date Immunization Notes Care Provider Sh[facility] 07-20-2023 Influenza, injectable, [place]in [place] Canine Kidney, preservative free, quadrivalent Raeann Warchol [employer] Work Phone: [facility] 07-20-2023 influenza virus vaccine, unspecified formulation Raeann Mahoney PA Work Phone: [facility] 07-10-2022 influenza, injectable, quadrivalent, preservative free Raeann Warchol [employer] MEMBER Work Phone: [facility] 07-07-2022 tetanus toxoid, reduced diphtheria toxoid, and acellular pertussis vaccine, adsorbed Raeann Warchol [employer] MEMBER Work Phone: [facility] 01-13-2022 varicella virus vaccine Raeann Warchol [employer] MEMBER Work Phone: [facility] 12-23-2021 tuberculin skin test; purified protein derivative solution, intradermal Raeann Warchol [employer] MEMBER Work Phone: [facility] 08-18-2021 COVID-19 Vaccine Pfizer - Documentation Purposes Only Kirstin Hernandez Other [facility] 07-28-2021 COVID-19 Vaccine Pfizer - Documentation Purposes Only Kirstin Hernandez Other [facility] 06-11-2021 diphtheria, tetanus toxoids and pertussis vaccine Kirstin Hernandez Other [employer] Other 06-11-2021 measles, mumps and rubella virus vaccine Kirstin Hernandez Other [employer] Other 07-17-2019 influenza, seasonal, injectable Patient Objection Kirstin Hernandez Other [employer] Other 11-09-2014 Rocephin 500 mg Kirstin Hernandez Other [employer] Other 06-09-2012 hepatitis A vaccine, pediatric/adolescent dosage, 2 dose schedule Kirstin Hernandez Other [employer] Other 06-09-2012 human papilloma virus vaccine, quadrivalent Kirstin Hernandez Other [employer] Other 06-09-2012 meningococcal polysaccharide (groups A, C, Y and W-135) diphtheria toxoid conjugate vaccine (MCV4P) Kirstin Hernandez Other [employer] Other 06-09-2012 tetanus toxoid, reduced diphtheria toxoid, and acellular pertussis vaccine, adsorbed Kirstin Hernandez Other [employer] Other 04-01-2004 diphtheria, tetanus toxoids and acellular pertussis vaccine, unspecified formulation Kirstin Hernandez Other [facility] 04-01-2004 measles, mumps and rubella virus vaccine Kirstin Hernandez Other [employer] Other 04-01-2004 poliovirus vaccine, inactivated Kirstin Hernandez Other [employer] Other 04-01-2004 poliovirus vaccine, unspecified formulation [facility] 08-20-2000 diphtheria, tetanus toxoids and acellular pertussis vaccine, unspecified formulation Kirstin Hernandez Other [employer] Other 08-20-2000 haemophilus influenzae type b vaccine, conjugate unspecified formulation Kirstin Hernandez Other [employer] Other 08-20-2000 measles, mumps and rubella virus vaccine Kirstin Hernandez Other [place] [employer] Other 08-20-2000 poliovirus vaccine, inactivated Kirstin Hernandez Other [place] [employer] Other 08-20-2000 poliovirus vaccine, unspecified formulation [facility] 08-20-2000 varicella virus vaccine Kirstin Hernandez Other [employer] Other 01-23-2000 diphtheria, tetanus toxoids and acellular pertussis vaccine, unspecified formulation Kirstin Hernandez Other [employer] Other 01-23-2000 haemophilus influenzae type b conjugate and Hepatitis B vaccine Kirstin Hernandez Other [employer] Other 1999 diphtheria, tetanus toxoids and acellular pertussis vaccine, unspecified formulation Kirstin Hernandez Other [employer] Other 1999 haemophilus influenzae type b conjugate and Hepatitis B vaccine Kirstin Hernandez Other [employer] Other 1999 poliovirus vaccine, inactivated Kirstin Hernandez Other [place] [employer] Other 1999 poliovirus vaccine, unspecified formulation [facility] 1999 diphtheria, tetanus toxoids and acellular pertussis vaccine, unspecified formulation Kirstin Hernandez Other [place] [employer] Other 1999 haemophilus influenzae type b conjugate and Hepatitis B vaccine Kirstin Hernandez Other [employer] Other 1999 poliovirus vaccine, inactivated Kirstin Hernandez Other [employer] Other 1999 poliovirus vaccine, unspecified formulation [facility] NEGATED: Highlighted row has not occurred! 1 influenza, seasonal, injectable Patient Objection Kirstin Hernandez Other [employer] Other NEGATED: Highlighted row has not occurred! 9 influenza, seasonal, injectable Patient Objection Kirstin Diegofredy Other [employer] Other Payers Date Payer Category Payer Medicaid [employer] MEDICAID [place] [id number] 2023-Present [address] [place] [address] [id number] 2023 Private Health Insurance [facility] MEDICAID [id number] 2021 [facility] [id number]. [id number] 2021 Unknown BCBS BCBS [id number] 2021-Present [phone] [address] [place] [id number] [id number]. 7.3.140175.315 1999 Unknown [id number] 2.16.840.1.169514.3.579.2. 593 1999 Unknown [id number] 2.16.840.1.028117.3.579.2. 593 1999 Unknown [id number] 2.16.840.1.055744.3.579.2. 593 1999 Unknown [id number] 2.16.840.1.060296.3.579.2. 593 1999 Unknown [id number] 2.16.840.1.704382.3.579.2. 593 1999 Unknown [id number] 2.16.840.1.319931.3.579.2. 593 1999 Unknown [id number] 2.16.840.1.911747.3.579.2. 593 1999 Unknown [id number] 2.16.840.1.392107.3.579.2. 593 1999 Unknown [id number] 2.16.840.1.766002.3.579.2. 593 1999 Unknown [id number] 2.16.840.1.875023.3.579.2. 593 1999 Unknown [id number] 2.16.840.1.313557.3.579.2. 593 1999 Unknown [id number] 2.16.840.1.093725.3.579.2. 593 1999 Unknown [id number] 2.16.840.1.352975.3.579.2. 8 1999 Unknown [id number] 2.16.840.1.288863.3.579.2. 71 1999 Unknown [id number] 2.16.840.1.735239.3.579.2. 1258 1999 Unknown [id number] 2.16.840.1.827734.3.579.2. 1258 1999 Unknown [id number] 2.16.840.1.899432.3.579.2. 1258 1999 Unknown [id number] 2.16.840.1.784585.3.579.2. 1258 1999 Unknown [id number] 2.16.840.1.478605.3.579.2. 1258 1999 Unknown [id number] 2.16.840.1.320204.3.579.2. 1258 1999 Unknown [id number] 2.16.840.1.392681.3.579.2. 1258 1999 Unknown [id number] 2.16.840.1.110068.3.579.2. 1258 1999 Unknown [id number] 2.16.840.1.176660.3.579.2. 1258 1999 Unknown [id number] 2.16.840.1.182174.3.579.2. 1258 1999 Unknown [id number] 2.16.840.1.253611.3.579.2. 1258 1999 Unknown [id number] 2.16.840.1.238127.3.579.2. 1258 1999 Unknown [id number] 2.16.840.1.454370.3.579.2. 1258 1999 Unknown [id number] 2.16.840.1.501130.3.579.2. 1259 1999 Unknown [id number] 2.16.840.1.422933.3.579.2. 1259 1959 [facility] [id number] 2.16.840.1.200358.19 1959 Private Health Insurance [id number] 2.16.840.1.697208.19 1959 Private Health Insurance [id number] 1959 Self-pay [id number] Unknown [id number] 2.16.840.1.193948.3.579.2. 531 Unknown [id number] 2.16.840.1.874959.3.579.2. 531 Unknown [id number] 2.16.840.1.281738.3.579.2. 531 Unknown [id number] 2.16.840.1.097748.3.579.2. 531 Unknown [id number] 2.16.840.1.717832.3.579.2. 531 Social History Date Type Detail Facility Unknown if ever smoked [employer] Other Start: 10-21-2023 End: 03-30-2024 Sex Assigned At [employer] Other Start: 2000 Sex Assigned At Female F [facility] Start: 10-21-2023 Tobacco smoking stat us NHIS Smokes tobacco daily [facility] Start: 10-21-2023 Tobacco use and exposure Smokeless tobacco non-user [facility] Start: 10-21-2023 End: 08-16-2024 Alcohol intake Lifetime non-drinker (finding) [facility] Start: 10-21-2023 End: 03-30-2024 History of Social function [facility] Start: 07-20-2023 Tobacco Comment Pt vapes [facility] Start: 12-10-2023 Alcohol Comment caffeine intak e: 2-3 cups per day of soda/pop ; more than 4 cups per day [facility] Start: 2000 Sex Assigned At Not on file [facility] Start: 11-10-2017 Tobacco smoking stat us NHIS Never smoked tobacco (finding) [facility] Do you belong to any clubs or organizations such as yazdanism groups, unions, fraternal or athletic groups, or [...] smoker [facility] Clinical Notes 12-02-2011 to 08-16-2024 KEI Hurd - 08/16/2024 8:40 AM Winnie Dietrich LPN - 08/03/2024 9:10 AM KEI aLmb - 07/18/2024 8:50 AM KEI Kwok - 07/04/2024 9:20 AM Molina Jang NP - 10/21/2023 9:40 AM EST Note Date & Type Note Facility 08-16-2024 History of Present illness Narrative Reason for Appointment: Patient ID: Le Rocha is a 24 y.o. female who presents for Routine Visit Patient presents today for Return OB appointment. MEDICATIONS Current Outpatient Medications Medication Instructions Docusate Sodium (COLACE PO) Take by mouth iron polysaccharides (PROFE) 391.3 mg, Oral, Daily Vit w/Fv-Stfwtkfyr-UJ (PNV PO) Take by mouth ALLERGIES No [...] hyperactivity disorder) (CMS/HCC) Anxiety with depression Asthma ([facility]) Chondritis Family planning Hx of bipolar disorder bipolar II PCOS (polycystic ovarian syndrome) Pelvic pain Post depression ([facility]) Pre-op exam Social History Tobacco Use Smoking [...] SYSTEMS Review of Systems: Review of Systems All other systems reviewed and are negative. OBJECTIVE Objective: Physical Exam Constitutional: Appearance: Normal [...] reviewed. Vitals: Estimated body mass index is 22.32 kg/m as calculated from the following: Height as of 24: 5' 9 . Weight as of this encounter: 151 lb 1.9 oz. BP: 100/60 Patient's last menstrual period was 12/07/2023. ASSESSMENT & PLAN ICD-10-CM 1. 36 weeks gestation of Z3A.36 POCT urinalysis dipstick manually resulted 2. Third trimester Z34.93 POCT urinalysis dipstick manually resulted Strep B DNA probe, amplification Strep B DNA probe, amplification Return OB: Patient presents today for a routine obstetrics appointment. Patient is currently 36w1d . Patient states she is doing well but has complaints of being tired due to current . Patient has verbalizes frequent movement. Patient is doing well but has complaints of being tired and having maternal discomfort due to . Patient verbalized frequent movement and was instructed to perform kick counts three times per day. labor precautions were given, LARC consent was signed/declined, and GBS was obtained. Cervical check was performed and patient is 1cm dilated. Orders Placed This Encounter Procedures Strep B DNA probe, amplification POCT urinalysis dipstick manually resulted Follow Up: Patient is to return to office in 1 week for routine OB appointment Orders Placed This Encounter Procedures Strep B DNA probe, amplification POCT urinalysis dipstick manually resulted Follow Up: Patient is to return to office in 1 week for routine OB appointment. Documented by KEI Hurd on behalf of: KEI Hurd documented in this encounter [facility] 08-03-2024 History of Present illness Narrative Reason for [...] breakfast, Do not crush or chew. Vit w/Bs-Aeuqbejup-QA (PNV PO) Take by mouth ALLERGIES No Known Allergies PROBLEMS Active Ambulatory Problems Diagnosis Date Noted Affective psychosis ([facility]) 07/19/2023 Bipolar II disorder, most recent episode major depressive ([facility]) 07/19/2023 Hypoglycemia 07/19/2023 Mild persistent asthma without complication ([facility]) 07/19/2023 Mixed anxiety and depressive disorder 07/19/2023 Chronic fatigue 07/20/2023 Attention-deficit hyperactivity disorder, other type ([facility]) 07/20/2023 Resolved Ambulatory Problems Diagnosis Date Noted Attention deficit hyperactivity disorder ([facility]) 07/19/2023 Missed menses 07/20/2023 Unspecified mood (affective) disorder ([facility]) 07/20/2023 Past Medical History: Diagnosis Date Acute low back pain ADHD (attention deficit hyperactivity disorder) ([facility]) Anxiety with depression Asthma ([facility]) Chondritis Family planning Hx of bipolar disorder PCOS (polycystic ovarian syndrome) Pelvic pain Post depression ([facility] [facility] Pre-op exam HISTORY PAST MEDICAL HISTORY SOCIAL HISTORY Past Medical History: Diagnosis Date Acute low back pain ADHD (attention deficit hyperactivity disorder) ([facility]) Anxiety with depression Asthma ([facility]) Chondritis Family planning Hx of bipolar disorder bipolar II PCOS (polycystic ovarian syndrome) Pelvic pain Post depression ([facility]) Pre-op exam Social History Tobacco Use Smoking [...] SYSTEMS Review of Systems: Review of Systems All other systems reviewed and are negative. OBJECTIVE Objective: Physical Exam Constitutional: Appearance: Normal appearance. She is well-developed. Cardiovascular: Rate and Rhythm: Normal rate and regular rhythm. Pulmonary: Effort: Pulmonary effort is normal. Breath sounds: Normal breath sounds. Abdominal: General: Bowel sounds are normal. There is no distension. Palpations: Abdomen is soft. Tenderness: There is no abdominal tenderness. There is no guarding or rebound. Musculoskeletal: General: No swelling. Normal range of motion. Right lower leg: No edema. Left lower leg: No edema. Neurological: Mental Status: She is alert and oriented to person, place, and time. Skin: General: Skin is warm and dry. Psychiatric: Mood and Affect: Mood normal. Behavior: Behavior normal. Vitals and nursing note reviewed. Exam conducted with a psychologist private practice present. Vitals: Estimated body mass index is 22.36 kg/m as calculated from the following: Height as of 12/21/23: 5' 9 . Weight as of this encounter: 151 lb 6.4 oz. BP: 102/64 Patient's last menstrual period was 12/07/2023. ASSESSMENT & PLAN ICD-10-CM 1. Third trimester Z34.93 Urine dip 2. 34 weeks gestation of Z3A.34 Urine dip Patient presents today for a routine obstetrics appointment. Patient is currently 34w2d with a Estimated Date of Delivery: 09/12/24. ProFe sent to patients pharmacy for anemia. Patient to return to clinic in 2 weeks for routine OB appointment. Documented by Jacki Dietrich LPN on behalf of: Jhonathan Pedraza DO documented in this encounter [facility] 07-18-2024 History of Present illness Narrative Reason for Appointment: Patient ID: eL Rocha is a 24 y.o. female who [...] breakfast, Do not crush or chew. Vit w/Cv-Gvlaudtle-PL (PNV PO) Take by mouth ALLERGIES No Known Allergies PROBLEMS Active Ambulatory Problems Diagnosis Date Noted Affective psychosis ([facility]) 07/19/2023 Bipolar II disorder, most recent episode major depressive ([facility]) 07/19/2023 Hypoglycemia 07/19/2023 Mild persistent asthma without complication ([facility]) 07/19/2023 Mixed anxiety and depressive disorder 07/19/2023 Chronic fatigue 07/20/2023 Attention-deficit hyperactivity disorder, other type ([facility]) 07/20/2023 Resolved Ambulatory Problems Diagnosis Date Noted Attention deficit hyperactivity disorder ([facility]) 07/19/2023 Missed menses 07/20/2023 Unspecified mood (affective) disorder ([facility]) 07/20/2023 Past Medical History: Diagnosis Date Acute low back pain ADHD (attention deficit hyperactivity disorder) ([facility]) Anxiety with depression Asthma ([facility]) Chondritis Family planning Hx of bipolar disorder PCOS (polycystic ovarian syndrome) Pelvic pain Post depression ([facility]) Pre-op exam HISTORY PAST MEDICAL HISTORY SOCIAL HISTORY Past Medical History: Diagnosis Date Acute low back pain ADHD (attention deficit hyperactivity disorder) ([facility]) Anxiety with depression Asthma ([facility]) Chondritis Family planning Hx of bipolar disorder bipolar II PCOS (polycystic ovarian syndrome) Pelvic pain Post depression ([facility]) Pre-op exam Social History Tobacco Use Smoking [...] of: KEI Hurd documented in this encounter [facility] 07-04-2024 History of Present illness Narrative Reason for Appointment: Patient ID: Le Rocha is a 24 y.o. female who presents for Routine Visit Patient presents today for Return OB appointment. MEDICATIONS Current Outpatient Medications Medication Instructions Docusate Sodium (COLACE PO) Take by mouth omeprazole (PRILOSEC) 20 mg, Oral, Daily before breakfast, Do not crush or chew. Vit w/Jp-Gcvtsffrn-BK (PNV PO) Take by mouth ALLERGIES No Known Allergies PROBLEMS Active Ambulatory Problems Diagnosis Date Noted Affective psychosis ([facility]) 07/19/2023 Bipolar II disorder, most recent episode major depressive ([facility]) 07/19/2023 Hypoglycemia 07/19/2023 Mild persistent asthma without complication ([facility]) 07/19/2023 Mixed anxiety and depressive disorder 07/19/2023 Chronic fatigue 07/20/2023 Attention-deficit hyperactivity disorder, other type ([facility]) 07/20/2023 Resolved Ambulatory Problems Diagnosis Date Noted Attention deficit hyperactivity disorder ([facility]) 07/19/2023 Missed menses 07/20/2023 Unspecified mood (affective) disorder ([facility]) 07/20/2023 Past Medical History: Diagnosis Date Acute low back pain ADHD (attention deficit hyperactivity disorder) ([facility]) Anxiety with depression Asthma ([facility]) Chondritis Family planning Hx of bipolar disorder PCOS (polycystic ovarian syndrome) Pelvic pain Post depression ([facility]) Pre-op exam HISTORY PAST MEDICAL HISTORY SOCIAL HISTORY Past Medical History: Diagnosis Date Acute low back pain ADHD (attention deficit hyperactivity disorder) ([facility]) Anxiety with depression Asthma ([facility]) Chondritis Family planning Hx of bipolar disorder bipolar II PCOS (polycystic ovarian syndrome) Pelvic pain Post depression ([facility]) Pre-op exam Social History Tobacco Use Smoking [...] nursing note reviewed. Exam conducted with a psychologist private practice present. Vitals: Estimated body mass index is [...] of: KEI Hurd documented in this encounter [facility] 05-22-2024 Note Patient Education Ma terials [...] these instructions at home: Medicines ? Take tygc-hhf-dddlbzi and prescription medicines only as told by [...] to the area. Brushing your teeth ? [place] your teeth twice a day using a [...] when you eat or drink. ? Take yjbe-ymv-pucjtin and prescription medicines only as told by your dentist. ? Watch your dental pain for any changes. Let your dentist know if symptoms get worse. This information is not intended to replace advice given to you by your health care provider. Make sure you discuss any questions you have with your health care provider. Document Revised: 06/11/2021 Document Reviewed: 06/11/2021 [employer] Patient Education ? 2023 [employer] Dentistry Dental Pain Dental pain is [...] these instructions at home: Medicines ? Take pszo-uoo-wyuykfp and prescription medicines only as told by your dentist. ? If you were prescribed an antibiotic medicine, take it as told by your dentist. Do not stop taking it even if you start to feel better. Eating and drinking Do not eat foods or drinks that cause you pain. These include: (more content not included)... [facility] 12-15-2023 Hospital Discharge instructions Ambulatory OrdersReferral to Orthopedics Time Frame: 12/15/23, Location: [facility] Work Phone: 10-21-2023 History of Present [...] follow-up: [facility] . documented in this encounter [facility] 10-21-2023 Instructions Raeann Jang NP - 10/21/2023 9:40 AM EST PATIENT EDUCATION: ADHD Current drug therapy discussed during office visit. Call office for worsening of symptoms for follow-up visit. Per [facility] regulations, follow-ups have to occur at least [...] for repeat lavage. documented in this encounter [facility] 09-03-2023 Note [phone] [id number] [facility] 09-02-2023 Note Patient Education Ma terials Follows: [facility] 12-04-2022 Note OPERATIVE NOTE OPERATION DATE: 12/04/2022 PROCEDURE: Robotic assisted diagnostic laparoscopy. PREOPERATIVE DIAGNOSIS: Pelvic pain. POSTOPERATIVE DIAGNOSIS: Pelvic pain. ANESTHESIA: General. SURGEON: Jhonathan Pedraza D.O. MOONER: STEPHON Weber URINE OUTPUT: Yellow and clear. [...] to Recovery Room in stable condition. [facility] 08-04-2022 Evaluation note Encounter Date Diagnosis Assessment Notes Jul, ADHD (attention deficit hyperactivity disorder) (ICD-10 - F90.9) Jul, Anxiety (ICD-10 - F41.9) [employer] Other 07-22-2022 Evaluation note* Encounter Date [...] done in May (2021) by Dr. Pedraza. [employer] [facility] Other 06-21-2022 Evaluation note* Encounter Date Diagnosis Assessment Notes Treatment Notes Treatment Clinical Notes Feb, Fatigue (ICD-10 - R53.83) Feb, Weakness (ICD-10 - R53.1) Feb, Chest pain (ICD-10 - R07.9) [employer] [facility] Other 04-15-2022 Evaluation note* Encounter Date [...] other issues that take precedence. Dec, Other senior living (current) drug therapy (ICD-10 - Z79.899) Dec, [...] the symptoms so they can be documented. [employer] Other 03-15-2022 Evaluation note* Encounter Date Diagnosis Assessment Notes Treatment Notes Treatment Clinical Notes Nov, ADHD (attention deficit hyperactivity disorder) (ICD-10 - F90.9) [facility] [employer] Other 12-15-2021 Evaluation note* Encounter Date [...] that her HGB has improved. 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 [facility] [employer] [facility] Other 10-18-2021 Evaluation note* Encounter Date [...] have EMDR done through her new counselor. [employer] [facility] Other 03-14-2012 History general Narrative - Reported* Type Description Date Medical History 12-02-2011 Echo - Structurally No rmal Heart Medical History 12-02-11 CXR - Negative Medical History 12-02-11 Echo- Structurally [place] [facility] Medical History Pre & Post Spirometry Medical History ADD Medical History X-Ray Left Ankle 08-07-13; [facility] Medical History PCOS found on ultrasound Medical History bipolar -2 Surgical History No Surgical history information Hospitalization History [facility] - chest pain s 08/12/15 Hospitalization History [facility] panic attack 08/17/15 [employer] Other 03-14-2012 History general Narrative - Reported* Type Description Date Medical History 12-02-2011 Echo - Structurally No rmal Heart Medical History 12-02-11 CXR - Negative Medical History 12-02-11 Echo- Structurally [facility] Medical History Pre & Post Spirometry Medical History ADD Medical History X-Ray Left Ankle 08-07-13; [facility] Medical History PCOS found on ultrasound Medical History bipolar -2 Medical History 10/07/21 pt states sh e had seizures 3-4 years ago that were stress induced Surgical History No Surgical history information Hospitalization History [facility] - chest pain s 08/12/15 Hospitalization History [facility] panic attack 08/17/15 [employer] Other Evaluation noteNo InformationNort [employer] Other Evaluation noteNo assessment information available [facility] Work Phone: Evaluation note* Diagnosis Attention-deficit [...] gestation of [facility] Diagnosis Third trimester state, incidental 34 weeks gestation of Other iron deficiency anemia [facility] Diagnosis 36 weeks gestation of Third trimester state, incidental documented in this encounter [facility] for [facility] Narrativemed refill Adderall, discuss multiple issues, see treatment plan for further informationP[place] [facility] Other Advance Directives Advance Directive Response Recorded [...] Complaint R05.[address]09.[address] scooter Summary Purpose Family History Relationship Condition Age [...] 30, 2024 End: March 30, 2024 HEIDI Luque Attending Provider Act michelle Start: March 30, [...] Team Status: Inactive Member Role Status [facility] Primary Care Provider Active UNA Segura Attending Provide r Active Team Status: Inactive Member Role Status Merrick Hernandez DO Primary Care Provider Active UNA Segura Attending Provide r Active Team Status: Active Member Role Status [facility] Primary Care Provider Active Team Status: Inactive Member Role Status UNA Hurley Provide r Active [facility] Primary Care Provider Active Team Status: Inactive Member Role Status UNA Hurley Attending Provide r Active Team Status: Active Member Role Status [facility] Primary Care Provider Ac tive Team Status: Inactive Member Role Status Dates Services [facility] Primary Care Provider Ac tive Tiarra Childs , FORESTRY FACULTY MEMBER-C Attending Provide r Active Team Status: Inactive Member Role Status Dates Services [facility] Primary Care Provider Ac tive ARLEN RuizC Attending Provider Active Team Status: Inactive Member Role Status Dates UNA Ruiz Primary Care Provider, Attending Pr ovider Active [employer] Layout Designer Relationship Specialty Start Date End Date Yovany Crawley MD [address] [facility] PCP - General Family Medicine 07/20/23 Raeann Jang NP [address] [facility] Nurse Practitioner Family Medicine 07/20/23 Team Status: Inactive Member Role Status Dates UNA Ruiz Primary Care Provider Active Start: May 23, 2024 End: May 23, 2024 Andrzej Grace DO Attending Provider Active Sta rt: May 23, 2024 End: May 23, 2024 [employer] Layout Designer Relationship Specialty Start Date End Date Yovany Crawley MD [address] [place] [id number] PCP - General Family Medicine 07/20/23 Raeann Jang NP [address] [place] [id number] Nurse Practitioner Family Medicine 07/20/23 [employer] Designer Relationship Specialty Start Date End Date Yovany Crawley MD [address] [place] [address] PCP - General Family Medicine 07/20/23 Raeann Jang NP [address] [place] [address] Nurse Practitioner Family Medicine 07/20/23 [employer] Layout Designer Relationship Specialty Start Date End Date Yovany Crawley MD [address] [place] [address] PCP - General Family Medicine 07/20/23 Raeann Jang, FORESTRY FACULTY MEMBER [address] [place] [address] Nurse Practitioner Family Medicine 07/20/23 [employer] Layout Designer Relationship Specialty Start Date End Date Yovany Crawley MD [address] [place] [address] PCP - General Family Medicine 07/20/23 Raeann Jang, JEAN CLAUDE [address] [place] [id number] Nurse Practitioner Family Medicine 07/20/23 [employer] Designer Relationship Specialty Start Date End Date Yovany Crawley MD [address] [place] [address] PCP - General Family Medicine 07/20/23 Raeann Jang, FORESTRY FACULTY MEMBER [address] [place] [address] Nurse Practitioner Family Medicine 07/20/23 Goals (unrecognized section and content) Goals may be documented in a n alternate section INFORMATION SOURCE (unrecogn ized section and content) DATE CREATED AUTHOR 01/29/2023 [facility] DATE CREATED AUTHOR AUTHOR'S ORGANIZ ATION 04/15/2024 [facility] DATE CREATED AUTHOR AUTHOR'S ORGANIZ ATION 04/19/2024 [facility] DATE CREATED AUTHOR AUTHOR'S ORGANIZ ATION 2024 [facility] DATE CREATED AUTHOR AUTHOR'S ORGANIZ ATION 06/01/[address] [facility] DATE CREATED AUTHOR AUTHOR'S PATRICK ATION 08/05/2024 [facility] d[facility] Specialists [facility] FOR RECORDS PERTAINING TO PATIENTS [...] BE BASED ON THE PRIMARY CLINICAL RECORDS. [employer] [facility]. provides no warranty or guarantee of the accuracy or completeness of information in this document.
== END 2024-08-16 18:29 | disposition home or self-care (01) ==
LOC: LAB 18:28
PROVIDERS: Visit Provider Physician Assistant
DX: Z34.93 Encounter for supervision of normal pregnancy, unspecified, third trimester (principal)
CPT/HCPCS: 87081; 87150

== ENCOUNTER 2024-08-30 15:28 | Inpatient (IN) | payer BC, OTHER, SELFPAY ==
[2024-08-30] VITALS (17 sets, daily range): BP systolic 110–173; BP diastolic 65–102; PULSE 77–139; TEMP 36.7–36.9
[2024-08-30 16:58] LABS: Hematocrit 31.1 % (36.0-48.0); Hemoglobin 10.3 g/dL (12.0-16.0); Mean Corpuscular HGB Conc 33.1 g/dL (29.9-35.2); Mean Corpuscular Hemoglobin 29.2 pg (26.7-34.0); Mean Corpuscular Volume 88.1 fL (81.0-99.0); Platelet Count 279 10^3/uL (150-450); Red Blood Count 3.53 10^6/uL (4.20-5.40); Red Cell Distribution Width 12.6 % (11.0-15.0); White Blood Count 12.7 10^3/uL (4.0-11.0)
[2024-08-30 17:12] LABS: Amphetamine Screen Urine NEGATIVE (NEGATIVE); Barbiturates Screen Urine NEGATIVE (NEGATIVE); Benzodiazepines Screen Urine NEGATIVE (NEGATIVE); Buprenorphine Screen Urine NEGATIVE (NEGATIVE); Cannabinoid Screen Urine NEGATIVE (NEGATIVE); Cocaine Screen Urine NEGATIVE (NEGATIVE); Methadone Screen Urine NEGATIVE (NEGATIVE); Methamphetamines Screen Urine NEGATIVE (NEGATIVE); Opiate Screen Urine NEGATIVE (NEGATIVE); Oxycodone Screen Urine NEGATIVE (NEGATIVE); Phencyclidine Screen Urine NEGATIVE (NEGATIVE); Tricyclic Antidepressant Urine NEGATIVE (NEGATIVE)
[2024-08-30] MEDS: OXYTOCIN/0.9 % SODIUM CHLORIDE 10 UNITS/500 ML PLAST..BAG 6 UNIT IV (18:30)
[2024-08-30] MEDS: 0.9 % SODIUM CHLORIDE 1,000 ML 125 ML IV ×2 (18:50→20:17)
[2024-08-30] MEDS: ROPIVACAINE HCL/PF 400 MG/200 ML PREMIX 6 MG EPIDURAL (20:15)
[2024-08-30] MEDS: OXYTOCIN/0.9 % SODIUM CHLORIDE 20 UNITS/1,000 ML PLAST..BAG 125 UNIT IV (21:54)
--- NOTE | 2024-08-30 22:02 | PM.OBPRCVD ---
Procedure Intrapartal events: None Delivery augmentation: rupture of membranes and pitocin Delivery monitor: external FHT and external uterine Route of delivery: L&D Laceration Description: perineal - 1st degree Delivery repair: Vicryl Estimated blood loss (mL): 250 Anesthesia type: Epidural Disposition: PACU Delivery date: 08/30/24 Gender: female presentation: vertex Placental delivery description: Spontaneous cord description: 3 Vessels and Nuchal Cord
[2024-08-30] MEDS: BENZOCAINE/MENTHOL 85 GRAM SPRAY BOTTLE 1 APPLIC TOPICAL (23:00)
[2024-08-30] MEDS: GLYCERIN/WITCH HAZEL PADS 1 PAD TOPICAL (23:00)
[2024-08-31] MEDS: IBUPROFEN 600 MG TABLET PO ×4 (01:02→22:57)
[2024-08-31 06:37] LABS: Basophils Absolute Auto 0.1 10^3/uL (0.0-0.1); Basophils Percent Auto 0.3 % (0.2-2.0); Eosinophils Absolute Auto 0.1 10^3/uL (0.0-0.7); Eosinophils Percent Auto 0.4 % (0.9-7.0); Hematocrit 29.7 % (36.0-48.0); Immature Granulocytes Pct Auto 1.1 % (0.0-0.5); Lymphocytes Absolute Auto 2.5 10^3/uL (1.2-3.8); Lymphocytes Percent Auto 13.4 % (20.5-60.0); Mean Corpuscular HGB Conc 33.7 g/dL (29.9-35.2); Mean Corpuscular Hemoglobin 29.8 pg (26.7-34.0); Mean Corpuscular Volume 88.4 fL (81.0-99.0); Mean Platelet Volume 10.5 fL (9.5-13.5); Monocytes Absolute Auto 1.1 10^3/uL (0.3-0.8); Neutrophils Absolute Auto 14.9 10^3/uL (1.4-6.5); Neutrophils Percent Auto 78.8 % (43.0-75.0); Platelet Count 295 10^3/uL (150-450); Red Blood Count 3.36 10^6/uL (4.20-5.40); Red Cell Distribution Width 12.7 % (11.0-15.0); White Blood Count 18.9 10^3/uL (4.0-11.0)
--- NOTE | 2024-08-31 06:53 | PM.OBPN ---
OB - PN: Subj Subjective Patient comments: no complaints and pain well controlled [place] status: doing well Exam Constitutional Vital Signs, click to edit/add: Last Vital Signs Temp 98.1 F 08/30/24 17:34 Pulse 92 H 08/30/24 23:02 Resp 16 08/30/24 23:50 BP 114/68 08/30/24 23:02 O2 Del Method Room Air 08/30/24 23:50 Documenting provider has reviewed patient's vital signs: yes Common normals: no apparent distress Respiratory Common normals: normal respiratory effort and clear to auscultation bilaterally Cardio Common normals: regular rate and regular rhythm GI Common normals: Normal to inspection, nondistended, normoactive bowel sounds present Extremity Common normals: no clubbing, cyanosis or edema and no calf tenderness Results Labs Labs: Short CBC 08/30/24 08/31/24 Range/Units 16:29 06:32 WBC 12.7 H 18.9 H (4.0-11.0) 10^3/uL Hgb 10.3 L 10.0 L (12.0-16.0) g/dL Hct 31.1 L 29.7 L (36.0-48.0) % Plt Count 279 295 (150-450) 10^3/uL OB - PN: A/P Plan - Vaginal Delivery day: 1 Plan: routine care Time Spent with Patient Time: Total time spent is greater than 50% in coordination of care (as documented) at patient's floor/unit and/or counseling patient: Total time spent with greater than 50% in coordination of care (as documented) at patient's floor/unit and/or counseling patient: less than 15 minutes
[2024-08-31 07:58] VITALS: BP 113/75; PULSE 75
[2024-08-31] MEDS: DOCUSATE SODIUM 100 MG CAPSULE PO ×2 (08:07→22:57)
[2024-08-31 09:45] VITALS: TEMP 36.8
[2024-08-31] MEDS: ACETAMINOPHEN 325 MG TABLET 650 MG PO ×2 (11:59→18:38)
[2024-08-31 12:57] VITALS: BP 118/74; PULSE 73
[2024-08-31 13:00] VITALS: TEMP 37.1
[2024-08-31 22:55] VITALS: BP 124/60; PULSE 96
--- NOTE | 2024-09-01 04:00 | P.OBPN_ITS ---
OB - PN: Subj Subjective Patient comments: no complaints and pain well controlled [place] status: doing well Exam Constitutional Vital Signs, click to edit/add: Last Vital Signs Temp 98.7 F 08/31/24 13:00 Pulse 96 H 08/31/24 22:55 Resp 16 08/31/24 23:00 BP 124/60 08/31/24 22:55 O2 Del Method Room Air 08/31/24 23:00 Documenting provider has reviewed patient's vital signs: yes Common normals: no apparent distress Respiratory Common normals: clear to auscultation bilaterally Cardio Common normals: regular rate and regular rhythm GI Common normals: Normal to inspection, nondistended, normoactive bowel sounds present Extremity Common normals: no calf tenderness Results Labs Labs: Short CBC 08/31/24 Range/Units 06:32 WBC 18.9 H (4.0-11.0) 10^3/uL Hgb 10.0 L (12.0-16.0) g/dL Hct 29.7 L (36.0-48.0) % Plt Count 295 (150-450) 10^3/uL OB - PN: A/P Plan - Vaginal Delivery day: 2 Plan: routine care, discharge home and follow up 6 weeks Time Spent with Patient Time: Total time spent is greater than 50% in coordination of care (as documented) at patient's floor/unit and/or counseling patient: Total time spent with greater than 50% in coordination of care (as documented) at patient's floor/unit and/or counseling patient: less than 15 minutes
[2024-09-01 08:51] VITALS: BP 118/67; PULSE 70
[2024-09-01 08:54] VITALS: TEMP 36.6
[2024-09-01] MEDS: DOCUSATE SODIUM 100 MG CAPSULE PO (08:54)
[2024-09-01] MEDS: IBUPROFEN 600 MG TABLET PO (08:59)
--- NOTE | 2024-09-01 10:51 | PC.NURSE ---
discharge assessment completed and discharge education completed with patient at this time. patient denies needing any further medications for comfort and declines any questions.
== END 2024-09-01 12:00 | disposition home or self-care (01) | DRG 807 ==
PROVIDERS: Admitting Provider Obstetrics & Gynecology; Visit Provider Obstetrics & Gynecology
DX: O99.334 Smoking (tobacco) complicating childbirth (principal); Z37.0 Single live birth; F17.290 Nicotine dependence, other tobacco product, uncomplicated; Z3A.38 38 weeks gestation of pregnancy; O69.81X0 Labor and delivery complicated by cord around neck, without compression, not applicable or unspecified; O70.0 First degree perineal laceration during delivery
CPT/HCPCS: 36415; 59050; 59410; 80307; 85025; 85027; 86850; 86900; 86901; J2795

== ENCOUNTER 2025-01-19 11:34 | Emergency (ER) | payer BC, OTHER, SELFPAY ==
[2025-01-19 11:42] VITALS: BP 125/76; PULSE 55; TEMP 36.7; O2SAT 100; BMI 19.2
[2025-01-19] MEDS: ONDANSETRON PF 4 MG/2 ML VIAL IV (12:05)
[2025-01-19] MEDS: KETOROLAC TROMETHAMINE 30 MG/ML VIAL 15 MG IVP (12:05)
[2025-01-19 12:08] LABS: Bilirubin Urine NEGATIVE (NEGATIVE); Blood Urine NEGATIVE (NEGATIVE); Clarity Urine CLEAR (CLEAR); Color Urine LT. YELLOW (YELLOW); Glucose Urine UA NEGATIVE (NEGATIVE); Ketones Urine NEGATIVE (NEGATIVE); Leukocyte Esterase Urine NEGATIVE (NEGATIVE); Nitrite Urine NEGATIVE (NEGATIVE); Protein Urine NEGATIVE (NEG/TRACE); Specific Gravity Urine 1.015 (1.005-1.025); Urobilinogen Urine 0.2 EU/dL (0.2-1.0)
[2025-01-19 12:09] LABS: HCG Qualitative Urine* NEGATIVE (NEGATIVE); Internal Control Within Normal Limits
[2025-01-19 12:29] LABS: Basophils Percent Auto 0.3 % (0.2-2.0); Eosinophils Absolute Auto 0.1 10^3/uL (0.0-0.7); Eosinophils Percent Auto 0.7 % (0.9-7.0); Hematocrit 40.2 % (36.0-48.0); Hemoglobin 13.7 g/dL (12.0-16.0); Immature Granulocytes Abs Auto 0.06 10^3/uL (0.00-0.03); Immature Granulocytes Pct Auto 0.4 % (0.0-0.5); Lymphocytes Absolute Auto 1.8 10^3/uL (1.2-3.8); Lymphocytes Percent Auto 13.7 % (20.5-60.0); Mean Corpuscular HGB Conc 34.1 g/dL (29.9-35.2); Mean Corpuscular Hemoglobin 29.7 pg (26.7-34.0); Mean Corpuscular Volume 87.2 fL (81.0-99.0); Mean Platelet Volume 10.2 fL (9.5-13.5); Monocytes Absolute Auto 0.7 10^3/uL (0.3-0.8); Monocytes Percent Auto 5.4 % (1.7-12.0); Neutrophils Absolute Auto 10.7 10^3/uL (1.4-6.5); Neutrophils Percent Auto 79.5 % (43.0-75.0); Platelet Count 365 10^3/uL (150-450); Red Blood Count 4.61 10^6/uL (4.20-5.40); Red Cell Distribution Width 12.9 % (11.0-15.0); White Blood Count 13.5 10^3/uL (4.0-11.0)
[2025-01-19 12:29] LABS: Bacteria Urine TRACE #/HPF (NONE SEEN); Mucus Urine NONE SEEN (NONE SEEN); RBC Urine NONE SEEN #/HPF (0-2); Squamous Epithelial Cell Urine FEW #/LPF (NONE/RARE); WBC Urine NONE SEEN #/HPF (NONE SEEN)
[2025-01-19 12:30] LABS: Cast Seen? NONE SEEN #/LPF (NONE SEEN); Crystals Seen? None Seen #/HPF (None Seen); Urine Culture Indicated NO
[2025-01-19 12:34] LABS: Alanine Aminotransferase 26 U/L (14-59); Albumin Globulin Ratio 1.1; Albumin Level 4.3 g/dL (3.4-5.0); Alkaline Phosphatase 103 U/L (46-116); Anion Gap 15.3; Aspartate Amino Transferase 20 U/L (15-37); Bilirubin Total 1.1 mg/dL (0.2-1.0); Calcium 9.6 mg/dL (8.5-10.1); Carbon Dioxide 26.3 mmol/L (21.0-32.0); Chloride 102 mmol/L (98-107); Estimated GFR (African America >60 (>=60 mL/min/1.73m^2); Estimated GFR (Non-African Ame >60 (>=60 mL/min/1.73m^2); Globulin 3.8 g/dL; Glucose 98 mg/dL (74-106); Potassium 3.6 mmol/L (3.5-5.1); Sodium 140 mmol/L (136-145); Total Protein 8.1 g/dL (6.4-8.2)
[2025-01-19] MEDS: MORPHINE SULFATE 2 MG/ML SYRINGE IV ×2 (14:49→16:10)
[2025-01-19 14:55] VITALS: BP 120/72; PULSE 79; O2SAT 98
--- NOTE | 2025-01-19 15:07 | ED.ABDPAIN1 ---
HPI - Abdominal Pain General Chief Complaint: Abdominal Pain Stated Complaint: R ABDOMINAL AND R BACK PAIN, NAUSEA Time Seen by Provider: 01/19/25 11:49 Source: patient and family Mode of arrival: walk-in Limitations: no limitations History of Present Illness HPI narrative: The patient is coming to the ER with a right lower quadrant pain for the last almost 12 hours started last night, pain is associate with nausea and vomiting, the patient gave the pain 10 out of 10, and there was no change in bowel movement there was some nausea and the last meal was at 8 AM No other concerns Related Data Home Medications ?Medication ?Instructions ?Recorded ?Confirmed No Known Home Medications 01/19/25 01/19/25 Allergies Allergy/AdvReac Type Severity Reaction Status Date / Time No Known Drug Allergies Allergy Verified 01/19/25 11:42 Review of Systems ROS Status of ROS 10 or more systems reviewed and unremarkable except as noted in history and below PFSH PFS Social History Highest level of school completed/degree received: high school graduate Little interest or pleasure in doing things: not at all Feeling down, depressed, or hopeless: not at all Exam Narrative Exam Narrative: Nurses notes and vital signs reviewed and patient is not hypoxic. General: Well-appearing and in no apparent distress. Skin: Warm, dry, no pallor noted. No rash. Head: Normocephalic, atraumatic. Neck: Supple, non-tender. Eye: Pupils are equal, round and EOMI. No scleral icterus. Ears, Nose, Mouth, and Throat: TM are clear, no nasal mucosal hypertrophy. Oral mucosa is moist, no posterior oropharynx erythema, uvula is mid-line Cardiovascular: Regular Rate and Rhythm without murmur, gallop or rub. Respiratory: No accessory muscle use or respiratory distress. Lungs are clear to auscultation, no wheezing, rales or rhonchi Chest Wall: no tenderness Back: No midline thoracic or lumbar vertebral tenderness. No CVA tenderness Musculoskeletal: normal ROM, no calf or popliteal tenderness, no lower extremity edema/swelling GI: Abdomen is soft, non-distended. Normal bowel sounds. No masses appreciated. Right lower quadrant tenderness noted Neurological: A&O x4. No cranial nerve dysfunction observed. Constitutional Vital Signs, click to edit/add: Last Vital Signs Temp 98.1 F 01/19/25 11:42 Pulse 79 01/19/25 14:55 Resp 18 05/02/25 14:55 BP 120/72 01/19/25 14:55 Pulse Ox 98 01/19/25 14:55 O2 Del Method Room Air 01/19/25 11:42 Course Vital Signs Vital signs: Vital Signs Temperature 98.1 F 01/19/25 11:42 Pulse Rate 55 L 01/19/25 11:42 Respiratory Rate 18 01/19/25 11:42 Blood Pressure 125/76 01/19/25 11:42 Pulse Oximetry 100 01/19/25 11:42 Oxygen Delivery Method Room Air 01/19/25 11:42 Temperature 98.1 F 01/19/25 11:42 Pulse Rate 79 01/19/25 14:55 Respiratory Rate 18 01/19/25 14:55 Blood Pressure 120/72 01/19/25 14:55 Pulse Oximetry 98 01/19/25 14:55 Oxygen Delivery Method Room Air 01/19/25 11:42 MDM - Abdominal Pain MDM Narrative Medical decision making narrative: The patient CBC shows mild leukocytosis of 13 Chemistry was within normal and the negative test CAT scan showed that the patient had acute appendicitis suspicion The patient will be kept n.p.o. her last meal was at 8 AM IV fluid as maintenance started The patient given 1 dose of Zosyn Patient case was discussed with in [facility] and he accepted the patient to be admitted Lab Data Labs: Lab Results 01/19/25 01/19/25 Range/Units 11:50 11:53 WBC 13.5 H (4.0-11.0) 10^3/uL RBC 4.61 (4.20-5.40) 10^6/uL Hgb 13.7 (12.0-16.0) g/dL Hct 40.2 (36.0-48.0) % MCV 87.2 (81.0-99.0) fL MCH 29.7 (26.7-34.0) pg MCHC 34.1 (29.9-35.2) g/dL RDW 12.9 (11.0-15.0) % Plt Count 365 (150-450) 10^3/uL MPV 10.2 (9.5-13.5) fL Neut % (Auto) 79.5 H (43.0-75.0) % Lymph % (Auto) 13.7 L (20.5-60.0) % [place] % (Auto) 5.4 (1.7-12.0) % Eos % (Auto) 0.7 L (0.9-7.0) % Baso % (Auto) 0.3 (0.2-2.0) % Neut # (Auto) 10.7 H (1.4-6.5) 10^3/uL Lymph # (Auto) 1.8 (1.2-3.8) 10^3/uL [place] # (Auto) 0.7 (0.3-0.8) 10^3/uL Eos # (Auto) 0.1 (0.0-0.7) 10^3/uL Baso # (Auto) 0.0 (0.0-0.1) 10^3/uL Abs Immat Gran (auto) 0.06 H (0.00-0.03) 10^3/uL Imm/Tot Granulo (auto) 0.4 (0.0-0.5) % Sodium 140 (136-145) mmol/L Potassium 3.6 (3.5-5.1) mmol/L Chloride 102 (98-107) mmol/L Carbon Dioxide 26.3 (21.0-32.0) mmol/L Anion Gap 15.3 BUN 15.0 (7.0-18.0) mg/dL Creatinine 1.00 (0.55-1.02) mg/dL Est GFR ( Amer) >60 (>=60 mL/min/1.73m^2) Est GFR (Non-Af Amer) >60 (>=60 mL/min/1.73m^2) BUN/Creatinine Ratio 15.0 Glucose 98 (74-106) mg/dL Calcium 9.6 (8.5-10.1) mg/dL Total Bilirubin 1.1 H (0.2-1.0) mg/dL AST 20 (15-37) U/L ALT 26 (14-59) U/L Alkaline Phosphatase 103 (46-116) U/L Total Protein 8.1 (6.4-8.2) g/dL Albumin 4.3 (3.4-5.0) g/dL Globulin 3.8 g/dL Albumin/Globulin Ratio 1.1 Urine Color Lt. yellow (YELLOW) Urine Clarity Clear (CLEAR) Urine pH 8.0 (5.0-9.0) Ur Specific [place] 1.015 (1.005-1.025) Urine Protein Negative (NEG/TRACE) mg/dL Urine Glucose (UA) Negative (NEGATIVE) mg/dL Urine Ketones Negative (NEGATIVE) mg/dL Urine Occult Blood Negative (NEGATIVE) Urine Nitrite Negative (NEGATIVE) Urine Bilirubin Negative (NEGATIVE) Urine Urobilinogen 0.2 (0.2-1.0) EU/dL Ur Leukocyte Esterase Negative (NEGATIVE) Urine RBC None seen (0-2) #/HPF Urine WBC None seen (NONE SEEN) #/HPF Ur Squamous Epith Cells Few A (NONE/RARE) #/LPF Urine Crystals None seen (None Seen) #/HPF Urine Bacteria Trace A (NONE SEEN) #/HPF Urine Casts None seen (NONE SEEN) #/LPF Urine Mucus None seen (NONE SEEN) Ur Culture Indicated? No Urine HCG, Qual Negative (NEGATIVE) Discharge Plan Discharge Chief Complaint: Abdominal Pain Clinical Impression: Acute appendicitis Patient Disposition: [facility] Time of Disposition Decision: 15:20 Discharge location: [facility]
[2025-01-19] MEDS: PIPERACILLIN SODIUM/TAZOBACTAM 3.375 GM in 0.9 % SODIUM CHLORIDE 50 ML IV (15:21)
[2025-01-19] MEDS: 0.9 % SODIUM CHLORIDE 1,000 ML 140 ML IV (15:23)
== END 2025-01-19 17:20 | disposition short-term general hospital (02) ==
PROVIDERS: Emergency Provider Emergency Medicine; PCP Nurse Practitioner
DX: K35.80 Unspecified acute appendicitis (principal)
CPT/HCPCS: 36415; 74176; 80053; 81001; 84703; 85025; 96361; 96365; 96375; 96376; 99285; J1885; J2270; J2405; J2543

== ENCOUNTER 2025-04-10 22:17 | Outpatient (REF) | payer BC, OTHER, SELFPAY ==
--- OUTSIDE RECORDS SUMMARY | 2023-06-10 09:50 | XMS_ITS | Continuity of Care Document ---
Author Organization [facility] Address [address] [place] [address] Phone Care Team Providers Care Portable Machine Sander Name Role Phone Seven PHILIP, LYNN-C, PM, Lily Unavailable Unavailable Procedures Procedure Date COVID-19 Antigen Test IMMUNIZATION ADMIN FLU VAC NO PRSV 4 EMERSON 3 YRS+ IMMUNIZATION ADMIN TDAP VACCINE >7 IM ROUTINE VENIPUNCTURE IMMUNIZATION ADMIN CHICKEN POX VACCINE, SC TB Read TB INTRADERMAL TEST OFFICE/OUTPATIENT VISIT, EST OFFICE/OUTPATIENT VISIT, EST HEP A VACC, PED/ADOL, 2 DOSE H PAPILLOMA VACC 3 DOSE IM Menveo TDAP VACCINE >7 IM Advance Directives Directive Yes / No Effective Date File Name No Information Encounters Encounter Description Practice Location Reason(s) For Visit Diagnoses Date Provider Providers Copied on Encounter [facility], [address] [place] [address], [id number] , [place] tel:+ [phone] [facility] No Information May- 3 Seven Bautista. [address] [place] [address], [id number], . tel: [phone] [facility], [address] [place] [address], [id number] , [place] tel:+ [phone] COVID [facility] Covid Test (chief complaint) Encounter for screening for COVID-19 2 Visci DO Andrzej. [address] [place] [address], [place], [id number] , [place]. tel: [phone] [facility], [address] [place], [place], [id number] , [place] tel: [phone] [facility] No Information 2 Visci DO Andrzej. [address] [place], [place], [id number] , [place]. tel: [phone] [facility], [address] [place], [place], [id number] , [place] tel: [phone] [facility] No Information 2 Visci DO Andrzej. [address] [place], [place], [id number] , [place]. tel: [phone] [facility], [address] [place], [place], [id number] , [place] tel: [phone] [facility] lab (chief complaint) No Information 2 Visci DO Andrzej. [address] [place] [address], [place], [id number] , [place]. tel: [phone] [facility], [address] [place] [address], [id number] , [place] tel: [phone] [facility] No Information 2 Visci DO Andrzej. [address] [place], [place], [id number] , [place]. tel: [phone] [facility], [address] [place] [address], [place], [id number] , [place] tel: [phone] [facility] No Information 2 Visci DO Andrzej. [address] [place], [place], [id number] , [place]. tel: [phone] [facility], [address] [place] [address], [id number] , [place] tel: [phone] [facility] Encounter for screening for respiratory tuberculosis 2 Sanjay Becker. [address] [place], [place], [id number] , [place]. tel: [phone] OFFICE/OUTPAT IENT VISIT, [facility], [address] [place] [address], [place], [id number] , [place] tel: [phone] [facility] Need for prophylactic vaccination and inoculation against other specified single bacterial diseaseNeed for prophylactic vaccination with combined diphtheria-tetanus- pertussis (DTP) (DTaP) vaccineNeed for prophylactic vaccination and inoculation against viralhepatitisNeed for prophylactic vaccination and inoculation, other viral diseases 2 Sanjay Becker. [address] [place], [place], [id number] , [place]. tel: [phone] Family History Family Member Type Diagnosis Age At Onset No Information Immunizations Vaccine Date Status Comments Flulaval/ Fluarix administered Source: Ne w Immunization Record Tdap (Boostrix) administered Source: New Immunization Record Varicella administered Source: New Imm unization Record HPV administered Source: New Imm unization Record Hep A (ped/adol, 2 dose) administered Lizeth rce: New Immunization Record Tdap administered Source: New Imm unization Record MCV4 (11-55 yrs) administered Source: New Immunization Record Payers Payer name Insurance type Covered constitution party ID Authoriza tiiveth(s) [facility] [id number] [facility] [id number] Medicaid [facility] [id number] Self Pay Cap [id number] Social History Type Description Quantity Date Captured Comments Alcohol Use Details Unknown Caffeine Use Details Unknown Tobacco Use Status No Information Smoking Status No Information Sex Female Sexual Orientation Straight or heterosexual Gender Identity Female Chief Complaint And Reason For Visit No Information Reason For Referral Reason For Referral No Information Plan Of Treatment Date Type Action Status Goal RLP. Due on due Goal PAP. Due on due Goal PRAPARE ASSESSMENT. Due on S ep due Goal Depression screening. Due on due Goal Influenza vaccine. Due on Se p due Goal Tdap Vaccine. Due on 2031 due Goal Hep A. Due on du e Goal Hep A. Due on du e Goal Tdap due Goal RLP. Due on due Goal Depression screening. Due on due Goal PRAPARE ASSESSMENT. Due on N ov due Goal Influenza vaccine. Due on No due Goal PAP. Due on due Goal Tdap due Goal PRAPARE ASSESSMENT. Due on O ct due Goal PAP. Due on due Goal Tdap due Goal Depression screening. Due on due Goal RLP. Due on due Goal Influenza vaccine. Due on Oc t due Goal Depression screening. Due on due Goal Tdap due Goal Influenza vaccine. Due on Oc t due Goal PRAPARE ASSESSMENT. Due on O ct due Goal PAP. Due on due Goal RLP. Due on due Goal PAP. Due on due Goal Depression screening. Due on due Goal RLP. Due on due Goal PRAPARE ASSESSMENT. Due on S ep due Goal Tdap due Goal Influenza vaccine. Due on Se p due Goal RLP. Due on due Goal PAP. Due on due Goal Influenza vaccine. Due on Ap r due Goal Depression screening. Due on due Goal Tdap due Goal PAP. Due on due Goal Influenza vaccine. Due on Ap r due Goal RLP. Due on due Goal Depression screening. Due on due Goal Tdap due Goal Influenza vaccine. Due on Ap r due Goal Depression screening. Due on due Goal Tdap due Goal RLP. Due on due Goal PAP. Due on due Goal HPV (1st). Due on 2 due History Of Present Illness Encounter Date Complaint History Of Prese nt Illness Covid Test Rapid PCR Test- NEGATIVE. //Ashvin An RN [facility] successful.-Juan Lim RN Functional Status Date Functional Assessmen t No Information Instructions Date Instruction Additional Infor mation No Information Assessments Type Assessment Date No Information Patient Care Teams Name Effective Dates (start - stop) Status Members No Information
--- OUTSIDE RECORDS SUMMARY | 2025-04-02 00:49 | XMS_ITS | Continuity of Care Document ---
Author Organization [facility] Address Unknown Care Team Providers Care Ribbon Cutter Name Role Phone MACHELLE CUELLO Primary Care Physician Encounter [id number] Date(s): 04/01/25 - 04/02/[address] [address] Encounter Diagnosis Ankle sprain(Discharge Diagnosis) - 04/02/25 Discharge Disposition: Home (Routine DC) Attending Physician: Sharmaine Jamil DO Encounter Type: Emergency Allergies, Adverse Reactions, Alerts No Known Allergies Assessment and Plan Extracted from: Title:ED Note Author:Sharmaine Jamil DO Date :04/01/25 Ankle sprain (S93.409A: Sprain of unspecified ligament of unspecified ankle, initial encounter) Orders: naproxen, 500 mg = 1 tab(s), Oral, BID, PRN for pain, # 20 tab(s), Refills(s) 0, Pharmacy: [id number], 175, cm, 04/01/25 22:38:00 EDT, Height/Length Dosing, 62, kg, 04/01/25 22:38:00 EDT, Weight Dosing Crutches Splint Application XR Ankle 3+ Views Right Medications ibuprofen 600 mg Tab 600 mg = 1 tab(s), Oral, q6hr, # 40 tab(s), Refills(s) 0, Pharmacy: [id number], 175.3, cm, 01/19/25 18:10:00 EDT, Height/Length Dosing, 62.3, kg, 01/19/25 18:10:00 EDT, Weight Dosing Start Date: 01/20/25 Status: Ordered Quantity: 40.0 Unit: tab(s) Repeat number: 1 Naprosyn 500 mg Tab 500 mg = 1 tab(s), Oral, BID, PRN for pain, # 20 tab(s), Refills(s) 0, Pharmacy: [id number], 175, cm, 04/01/25 22:38:00 EDT, Height/Length Dosing, 62, kg, 04/01/25 22:38:00 EDT, Weight Dosing Start Date: 04/02/25 Status: Ordered Quantity: 20.0 Unit: tab(s) Repeat number: 1 oxyCODONE 5 mg Tab 5 mg = 1 tab(s), Oral, q6hr, PRN for pain, # 7 tab(s), Refills(s) 0, Pharmacy: [id number], 175.3, cm, 01/19/25 18:10:00 EDT, Height/Length Dosing, 62.3, kg, 01/19/25 18:10:00 EDT, Weight Dosing Start Date: 01/20/25 Status: Ordered Quantity: 7.0 Unit: tab(s) Repeat number: 1 Problem List No Known Problems Social History Social History Type Response Sex Female Sex Representation Female (finding) Hospital Discharge Instructions Patient Education 04/02/2025 00:49:36 Ankle Sprain Ankle Sprain An ankle sprain is a stretch or tear in a ligament in the ankle. Ligaments are tissues that connectbones to each other. The two most common types of ankle sprains are: ??? Inversion sprain. This happens when the foot turns inward and the ankle rolls outward. It affects the ligament on the outside of the foot (lateral ligament). ??? Eversion sprain. This happens when the foot turns outward and the ankle rolls inward. It affects the ligament on the inner side of the foot (medial ligament). What are the causes? An ankle sprain is often caused by rolling or twisting the ankle by accident. What increases the risk? You are more likely to get an ankle sprain if you play sports. What are the signs or symptoms? Symptoms of an ankle sprain include: ??? Pain in your ankle. ??? Swelling. ??? Bruising. Bruises may form right after you sprain your ankle or 1???2 days later. ??? Trouble standing or walking. This includes trouble turning or changing directions. How is this diagnosed? An ankle sprain is diagnosed with a physical exam. Your health care provider will press on parts ofyour foot and ankle and try to move them in certain ways. You may also have X-rays taken. These may be done to see how severe the sprain is and to check for broken bones. How is this treated? An ankle sprain may be treated with: ??? A brace or splint. This is used to keep the ankle from moving until it heals. ??? An elastic bandage (dressing). This is used to support the ankle. ??? Crutches. ??? Pain medicine. ??? Surgery. This may be needed if the sprain is severe. ??? Physical therapy. This may help to improve the range of motion in the ankle. Follow these instructions at home: If you have a removable brace or a splint: ??? Wear the brace or splint as told by your provider. Remove it only as told by your provider. ??? Check the skin around the brace or splint every day. Tell your provider about any concerns. ??? Loosen the brace or splint if your toes tingle, become numb, or turn cold and blue. ??? Keep the brace or splint clean. ??? If the brace or splint is not waterproof: ??? Do not let it get wet. ??? Cover it with a watertight covering when you take a bath or a shower. If you have an elastic dressing: ??? Take the dressing off to shower or bathe. ??? If the dressing feels too tight, adjust it to make it more comfortable. ??? Loosen the dressing if your foot tingles, becomes numb, or turns cold and blue. Managing pain, stiffness, and swelling ??? If told, put ice on the affected area. ??? If you have a removable brace or splint, remove it as told by your provider. ??? Put ice in a plastic bag. ??? Place a towel between your skin and the bag. ??? Leave the ice on for 20 minutes, 2???3 times a day. ??? Remove the ice if your skin turns bright red. This is very important. If you cannot feel pain, heat, or cold, you have a greater risk of damage to the area. ??? If your skin turns bright red, remove the ice right away to prevent skin damage. The risk of damage is higher if you cannot feel pain, heat, or cold. ??? Move your toes often to reduce stiffness and swelling. ??? For 2???3 days, raise (elevate) your ankle above the level of your heart while you are sitting or lying down. General instructions ??? Take ugfu-brs-erqvfxt and prescription medicines only as told by your provider. ??? Do not use any products that contain nicotine or tobacco. These products include cigarettes, chewing tobacco, and vaping devices, such as e-cigarettes. If you need help quitting, ask your provider. ??? Rest your ankle. ??? Do not use your ankle to support your body weight until your provider says that you can. Use crutches as told by your provider. ??? Ask your provider when it is safe to drive if you have a brace or splint on your ankle. Contact a health care provider if: ??? You have bruising or swelling that get worse all of a sudden. ??? Your pain does not get better with medicine. Get help right away if: ??? Your foot or toes become numb or blue. ??? You have severe pain that gets worse. This information is not intended to replace advice given to you by your health care provider. Make sure you discuss any questions you have with your health care provider. Document Revised: 06/09/2023 Document Reviewed: 06/09/2023 [employer] Patient Education ?? 2023 [employer]. Follow Up Care 04/01/2025 22:30:38 With:Dwayne Meier Address: [address] [place], [place] [id number] [facility] (1) When:04/05/2025 Comments:Units naproxen every 12 hours as needed for pain. Please follow-up with orthopedics for further evaluation management. Please return to the ED for any new or worsening symptoms. With:Machelle Cuello Address:Unknown When:Within 3 Day(s) Physician Emergency department Note * Loulou VELEZ Daniellashonda Nielsen: PERFORM Event Display: ED Note-Physician Authored Date: [id number] Basic Information Time Seen: Sharmaine Jamil DO ??04/01/2025 22:57 Chief Complaint pt arrives for right ankle pain after her dog knocked her over. states she fell over and since thenunable to bear weight History of Present Illness Patient is a 24-year-old female presenting to the ED for evaluation of right ankle pain. ??Patient states she??was with her dog when the dog knocked her over. ??She states her foot stayed planted however her ankle turned. ??Patient having pain in the right ankle anteriorly. ??Patient states she initially was able to walk on it however has been unable to put weight on it??since that time. ??Deniesany other injuries denies any other complaints. Review of Systems A 10 point review of systems is negative except as noted above. ?? Medical and Surgical History: Reviewed and noted Social history: Lives at home Tobacco: Denies Physical Exam Vitals & Measurements T:??36.7?C(Oral)?? HR:??75(Peripheral)?? RR:??17?? BP:??103/70?? SpO2:??97%?? HT:??175??cm?? WT:??62??kg?? BMI:??20.24?? General: Well developed, non toxic appearing, no acute distress?? HEENT: Head atraumatic, Mucosa moist, hearing grossly normal Neck: No JVD, tracheal deviation?? Cardiac: Regular rate, rhythm, no murmurs, or gallops, 2+ radial pulses?? Respiratory: Lungs clear to auscultation B/L, normal respiratory effort?? Extremities: Pain on palpation of the anterior ankle, no medial or lateral malleoli or tenderness no obvious swelling Neurologic: Alert and oriented, speech clear?? Skin: No rashes or lesions Psych: ??Appropriate mood and behavior Medical Decision Making MEDICAL DECISION MAKING Number and Complexity of Problems Differential Diagnosis: [] ?? MDM Data External documents reviewed: [] My EKG interpretation: [] My CT interpretation: [] My X-ray interpretation: [] My Ultrasound interpretation: [] Decision rules/scores evaluated: [] Discussed with: [] ?? Treatment and Disposition ED Course: Patient is a 24-year-old female presenting to the ED for evaluation of right ankle pain.??Patient is nontoxic in arrival, no acute distress. ??Does have pain on palpation of the anterior aspect of her ankle.?? X-rays obtained shows no acute fracture. ??Discussed with patient likely ankle sprain. ??She is placed in Aircast and given crutches for comfort. ??She is to follow-up with her primary care doctor??for further evaluation management. ??She is to return to ED for any new or worsening symptoms. Shared decision making: [] Code status: [] Assessment/Plan Ankle sprain??(S93.409A: Sprain of unspecified ligament of unspecified ankle, initial encounter) Orders: naproxen, 500 mg = 1 tab(s), Oral, BID, PRN for pain, # 20 tab(s), Refills(s) 0, Pharmacy: [id number], 175, cm, 04/01/25 22:38:00 EDT, Height/Length Dosing, 62, kg, 04/01/25 22:38:00 EDT, Weight Dosing Crutches Splint Application XR Ankle 3+ Views Right Disposition Plan Discharge Prescription List Prescriptions Naprosyn 500 mg Tab, 500 mg= 1 tab(s), Oral, BID, PRN Follow-up With When Contact Information Dwayne Meier In 3 days 04/05/[address] [place] [id number] [facility] (1) Additional Instructions: Units naproxen every 12 hours as needed for pain. ??Please follow-up with orthopedics for further evaluation management. ??Please return to the ED for any new or worsening symptoms. Machelle Cuello In 3 days Additional Instructions: Patient Education Ankle Sprain Problem List/Past Medical History Ongoing No chronic problems Historical No qualifying data Medications Inpatient No active inpatient medications Home ibuprofen 600 mg Tab, 600 mg= 1 tab(s), Oral, q6hr Naprosyn 500 mg Tab, 500 mg= 1 tab(s), Oral, BID, PRN oxyCODONE 5 mg Tab, 5 mg= 1 tab(s), Oral, q6hr, PRN Allergies No Known Allergies Social History Alcohol Never., 01/28/2025 Substance Abuse Never., 01/28/2025 Lab Results No qualifying data available. Diagnostic Results No qualifying data available. Electronically Signed By: Sharmaine Jamil DO Date and Time Signed: 04/02/25 01:55 EDT Patient Care team information Care Team Personnel Name: MACHELLE CUELLO CNP Member Role: Primary Care Physician Address: [address] [place], [place] [address] [address] Telecom: Care Team Related Persons Name: JUAN ANTONIO KELLER Name: JUAN ANTONIO KELLER Insurance Providers Guarantor name: CHARLETTE SIERRA [facility] Information #: 1 Payer: NA Payer Identifier: [id number] Member Number: [id number] Group Number: [id number] Subscriber Identifier: [id number] Relationship to Subscriber: Self Coverage Type: MEDICAID Coverage Verification Date: 25 Telecom: NA Address:
--- OUTSIDE RECORDS SUMMARY | 2025-04-10 14:40 | XMS_ITS | Encounter Summary ---
Author Organization [facility] Address [address] [place] [address] Care Team Providers Care Laundry Housekeeping Aide Name Role Phone Yovany Crawley MD Primary Care Provider [phone] Ginny Cuello BRIDGE ENGINEER Unavailable [phone] Yovany Crawley MD Unavailable [phone] Reason for Visit * Reason Comments Well Women Visit Encounter Details Date Type Department Care Team (Late st Contact Info) Description 04/10/2025 2:40 PM EDT Office Visit [facility] [address] [place] [id number] Jhonathan Pedraza DO [address] [place], [place] [id number] Well woman exam with routine gynecological exam Social History Tobacco Use Types Packs/Day Years Used Date Smoking Tobacco: Never Passive Smoke Exposure: Never Smokeless Tobacco: Never Comments:Pt vapes Alcohol Use Standard Drinks/Week Comments Never 0 (1 standard drink = 0.6 oz pure alcohol) caffeine intake: 2-3 cups per day of soda/pop ; more than 4 cups per day Social Connection and Isolat ion Panel [NHANES] Answer Date Recorded In a typical week, how many times do you talk on the phone with family, friends, or neighbors? More than three times a week 03/30/2024 How often do you get togethe r with friends or relatives? Twice a week 03/30/2024 How often do you attend [facility] or roman catholic services? Never 03/30/2024 Do you belong to any clubs o r organizations such as buddhist groups, unions, fraternal or athletic groups, or school groups? No 03/30/2024 How often do you attend meet ings of the clubs or organizations you belong to? Patient declined 03/30/2024 Are you , , di vorced, , never , or living with a partner? Never 03/30/2024 AUDIT-C Answer Date Recorded Q1: How often do you have a drink containing alcohol? Never 01/16/2025 Q2: How many drinks containi ng alcohol do you have on a typical day when you are drinking? Patient does not drink Q3: How often do you have si x or more drinks on one occasion? Never 01/16/2025 Overall Financial Resource Strain (CARDIA) Answe r Date Recorded How hard is it for you to pa y for the very basics like food, housing, medical care, and heating? Patient declined 03/30/2024 PHQ-2 Answer Date Recorded Patient Health Questionnaire-2 Score 0 01/16/2025 [facility] - Occupational Stress Questionnaire Answer Date Recorded Do you feel stress - tense, restless, nervous, or anxious, or unable to sleep at night because your mind is troubled all the time - these days? Very much 03/30/2024 Hunger Vital Sign Answer Date Recorded Within the past 12 months, y ou worried that your food would run out before you got the money to buy more. Patient declined Within the past 12 months, t he food you bought just didn't last and you didn't have money to get more. Patient declined 07/2024 PRAPARE - Transportation Answer Date Re corded In the past 12 months, has l ack of transportation kept you from medical appointments or from getting medications? Patient declined 03/30/2024 In the past 12 months, has l ack of transportation kept you from meetings, work, or from getting things needed for daily living? Patient declined 03/30/2024 Housing Stability Vital Sign Answer Neal e Recorded In the last 12 months, was t here a time when you were not able to pay the mortgage or rent on time? Patient declined 03/30/20 24 Number of Times Moved in the Last Year Not on fi le 03/30/2024 At any time in the past 12 m [facility], were you homeless or living in a jail (including now)? 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 Not on file Not on file Not on file documented as of this encounter Last Filed Vital Signs Vital Sign Reading Time Taken Comments Blood Pressure 108/70 04/10/2025 2:47 PM EDT Pulse - - Temperature - - Respiratory Rate - - Oxygen Saturation - - Inhaled Oxygen Concentration - - Weight 60.4 kg (133 lb 1.9 oz) 04/10/2025 2:47 P M EDT Height - - Body Mass Index 19.66 01/16/2025 8:28 AM EDT documented in this encounter Plan of Treatment Scheduled Orders Name Type Priority Associated Diagnoses Orde r Schedule Pap Smear Pathology and Cytology Routine Well woman exam with routine gynecological exam Ordered: 04/10/2025 documented as of this encounter Visit Diagnoses Diagnosis Well woman exam with routine gynecological exam Routine gynecological examination documented in this encounter Additional Health Concerns Assessment Noted Time PHQ-9 Depression Total Score: 13 024 9:47 AM EST documented as of this encounter Care Teams Laundry Housekeeping Aide Relationship Specialty Start Date End Date Yovany Crawley MD [address] [place] [address] PCP - General Family Medicine 07/20/23 Yovany Crawley MD [address] [place] [address] [facility] Ginny Cuello NP [address] [place] [address] Nurse Practitioner Family Medicine 01/19/25 documented as of this encounter
--- OUTSIDE RECORDS SUMMARY | 2025-04-10 22:24 | XMS_ITS ---
Author Organization [facility] Address [address] [place] [address] Care Team Providers Care Equipment Associate Name Role Phone Yovany Crawley MD Primary Care Provider [phone] Ginny Cuello NP Unavailable Yovany Crawley MD Unavailable [phone] Emergency Department Transitional Care Management (TCM) Status:Closed (Closed) Start date:04/02/2025 Enrollment date:04/03/2025 Enrollment reason:Identified using hospital discharge data End date:04/03/2025 Close reason:Unable to reach patient Overview Discharged from [facility] ER on 04/02. Please contact within 2 days of discharge for ER LOIS and schedule a follow-up appointment if needed. Continued Care and Services Coordination
--- OUTSIDE RECORDS SUMMARY | 2025-04-10 22:24 | XMS_ITS | Encounter Summary ---
Author Organization [facility] Address [address] [place] [address] Care Team Providers Care Reel Blade Bender Furnace Tender Name Role Phone Yovany Crawley MD Primary Care Provider [phone] Raeann Ch NP Unavailable Ginny Cuello WATER SERVICE DISPATCHER Unavailable [phone] Yovany Crawley MD Unavailable [phone] Victorina Champion MA Unavailable [phone] Encounter Details Date Type Department Care Team (Late st Contact Info) Description 05/03/2024 Clinisync Result Encounter [facility] External Department Unsolicited Tessa Pedraza, DO [address] [facility] [place] [address] Social History Tobacco Use Types Packs/Day Years Used Date Smoking Tobacco: Every Day Passive Smoke Exposure: Never Smokeless Tobacco: Never [...] week 03/30/2024 How often do you attend [facility] or islam services? Never 03/30/2024 Do you belong to any clubs o r organizations such as advent groups, unions, fraternal or athletic groups, or school groups? No 03/30/2024 How often do you attend meet ings of the clubs or organizations you belong to? Patient declined 03/30/2024 Are you , , di vorced, , never , or living with a partner? Never 03/30/2024 AUDIT-C Answer Date Recorded Q1: How often do you have a drink containing alcohol? Never 03/30/2024 Q2: How many drinks containi ng alcohol do you have on a typical day when you are drinking? Patient does not drink Q3: How often do you have si x or more drinks on one occasion? Never 03/30/2024 Overall Financial Resource Strain (CARDIA) Answe r Date Recorded How hard is it for you to pa y for the very basics like food, housing, medical care, and heating? Patient declined 03/30/2024 PHQ-2 Answer Date Recorded Patient Health Questionnaire-2 Score 4 10/21/2023 [facility] Occupat ional [facility] - Occupational Stress Questionnaire Answer Date Recorded [...] any time in the past 12 m onths, were you homeless or living in a detention (including now)? 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 Job End Date [employer], 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 Not on file Not on file Not on file documented as of this encounter Plan of Treatment Not on file documented as of this encounter Procedures Procedure Name Priority Date/Time Associated Diagnosis Comments US OB ANATOMY 05/03/2024 7:11 AM EDT documented in this encounter Results * US OB ANATOMY (05/03/2024 7:11 AM EDT) Anatomical Region Laterality Modality Other 05/03/2024 7:11 AM EDT Narrative 05/03/2024 7:14 [place] [address] Ultrasound Report Signed Patient: CHARLETTE ROCHA MR#: [id number] : 2000 Acct:[id number] Age/Sex: 23 / F ADM Date: 05/02/24 Loc: US Attending Dr: Tessa Pedraza D.O. Ordering Physician: Tessa Pedraza D.O. Date of Service: 05/02/24 Procedure(s): US OB anatomy Accession Number(s): [id number] cc: FAMILY,HEALTH SER ; Tessa Pedraza D.O. [facility] [place] [id number] Patient Name: CHARLETTE ROCHA MRN: [id number] date: 2000 Sex: F Assigned Patient Location: US Current Patient Location: Accession/Order Number: [id number] Exam Date: 05/02/2024 16:10 Report Date: 05/03/2024 07:11 At the request of: TESSA PEDRAZA Procedure: US OB anatomy EXAMINATION: US OB cervical length, US OB anatomy HISTORY: Anatomic Survey Screening COMPARISON: No relevant comparison available. TECHNIQUE: Transabdominal sonographic examination was performed for obstetrical and evaluation. FINDINGS: Number: 1 Heart Rate: 149.17 bpm H.B. /min Amniotic Fluid Volume: Subjectively normal Placental Location: Posterior, the placental edge is 2.6 cm from the internal cervical os, grade 0 Cervix Length: 4.84 cm , closed. Small amount of fluid in the endocervical canal presentation: Variable Normal anatomy: Lateral ventricles, cerebellum, posterior fossa, nose, lips, orbits, diaphragm, stomach, kidneys, abdominal cord insertion, bladder, umbilical arteries, three-vessel cord Suboptimal visualization: Four-chamber heart, RVOT, LVOT, spine, extremities BIOMETRY: BPD: 4.89 cm; 20 weeks 6 days; 40.40 % HC: 18.20 cm; 20 weeks 4 days; 23.40 % AC: 15.45 cm; 20 weeks 4 days; 31 % FL: 3.42 cm; 20 weeks 5 days; 32.20 % EFW:369.95 g; 28.30 %, 13 ounces FL/AC: 22.14 FL/BPD: 69.89 HC/AC: 1.18 GESTATIONAL AGE: Age by EDC: 21 weeks 0 days Age by current US: 20 weeks 5 days KEATON by current US: 2024-09-14 KEATON by EDC: 2024-09-12 US/US OB anatomy IMPRESSION: Suboptimal visualization detailed above Low lying placenta, the placental edge is 2.6 cm from the internal os *Reference: [facility] Practice Guideline for the performance of Obstetric Ultrasound Examinations, June 20, 2007. Electronically authenticated by: KIRSTIN BOJORQUEZ Date: 05/03/2024 07:11 Dictated By: Kirstin Bojorquez M.D. Signed By: 05/03/24713 DD/ 0 TD/TT: Clinical Research Manager: Procedure Note Radiology, Radiologist, - 05/03/2024 [facility] [place] [id number] Ultrasound Report Signed Patient: CHARLETTE ROCHA LMR#: [id number] : 2000Acct:[id number] Age/Sex: 23 / FADM Date: 05/02/24 Loc: US Attending Dr: Tessa Pedraza D.O. Ordering Physician: Tessa Pedraza D.O. Date of Service: 05/02/24 Procedure(s): US OB anatomy Accession Number(s): [id number] cc: FAMILY,HEALTH SER ; Tessa Pedraza D.O. [address] [address] Patient Name: CHARLETTE ROCHA MRN: [facility]:[id number] date: 2000 Sex: F Assigned Patient Location: US Current Patient Location: Accession/Order Number: [id number] Exam Date: 05/02/2024 16:10 Report Date: 05/03/2024 07:11 At the request of: TESSA PEDRAZA Procedure: US OB anatomy EXAMINATION: US OB cervical length, US OB anatomy HISTORY: Anatomic Survey Screening COMPARISON: No relevant comparison available. TECHNIQUE: Transabdominal sonographic examination was performed for obstetrical and evaluation. FINDINGS: Number: 1 Heart Rate: 149.17 bpm H.B. /min Amniotic Fluid Volume: Subjectively normal Placental Location: Posterior, the placental edge is 2.6 cm from theinternal cervical os, grade 0 Cervix Length: 4.84 cm , closed. Small amount of fluid in the endocervical canal presentation: Variable Normal anatomy: Lateral ventricles, cerebellum, posterior fossa, nose,lips, orbits, diaphragm, stomach, kidneys, abdominal cord insertion, bladder, umbilical arteries, three-vessel cord Suboptimal visualization: Four-chamber heart, RVOT, LVOT, spine,extremities BIOMETRY: BPD: 4.89 cm; 20 weeks 6 days; 40.40 % HC: 18.20 cm; 20 weeks 4 days; 23.40 % AC: 15.45 cm; 20 weeks 4 days; 31 % FL: 3.42 cm; 20 weeks 5 days; 32.20 % EFW:369.95 g; 28.30 %, 13 ounces FL/AC: 22.14 FL/BPD: 69.89 HC/AC: 1.18 GESTATIONAL AGE: Age by EDC: 21 weeks 0 days Age by current US: 20 weeks 5 days KEATON by current US: 2024-09-14 KEATON by EDC: 2024-09-12 US/US OB anatomy IMPRESSION: Suboptimal visualization detailed above Low lying placenta, the placental edge is 2.6 cm from the internal os *Reference: [facility] Practice Guideline for the performance of Obstetric Ultrasound Examinations, June 20, 2007. Electronically authenticated by: KIRSTIN BOJORQUEZ Date: 05/03/2024 07:11 Dictated By: Kirstin Bojorquez M.D. Signed By:05/03/2414 DD/ 0 TD/TT: Clinical Research Manager: us Tessa Keila DO [facility] Final Result documented in this encounter Visit Diagnoses Not on filedocumented in this encounter Additional Health Concerns Assessment Noted Time PHQ-9 Depression Total Score: 13 024 9:47 AM EST documented as of this encounter Care Teams Reel Blade Bender Furnace Tender Relationship Specialty Start Date End Date Yovany Crawley MD [address] [place] [address] PCP - General Family Medicine 07/20/23 Yovany Crawley MD [address] [place] [address] PCP - [facility] 01/18/25 Raeann Ch NP [address] [place] [address] Nurse Practitioner Family Medicine 07/20/23 01/18/25 Ginny Cuello NP [address] [place] [address] Nurse Practitioner Family Medicine 01/19/25 Victorina Champion MA [address] [place] [address] Family Medicine 03/05/25 03/14/25 documented as of this encounter
--- OUTSIDE RECORDS SUMMARY | 2025-04-10 22:24 | XMS_ITS | Encounter Summary ---
Author Organization [facility] Address [address] [place] [address] Care Team Providers Care Grocery Associate Name Role Phone Yovany Crawley MD Primary Care Provider [phone] Ginny Cuello DIETITIAN ASSISTANT Unavailable [phone] Yovany Crawley MD Unavailable [phone] Encounter Details Date Type Department Care Team (Latest Contact Info) Description 04/10/2025 Travel Social History Tobacco Use Types Packs/Day Years [...] week 03/30/2024 How often do you attend chur ch or presybeterian services? Never 03/30/2024 Do you belong to any clubs o r organizations such as spiritism groups, unions, fraternal or athletic groups, or [...] Recorded Patient Health Questionnaire-2 Score 0 01/16/2025 [facility] - Occupational Stress [...] any time in the past 12 m [facility], were you homeless or living in a skilled nursing (including now)? 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 Not on file Not on file Not on file documented as of this encounter Plan of Treatment Not on file documented as of this encounter Visit Diagnoses Not on filedocumented in this encounter Additional Health Concerns Assessment Noted Time PHQ-9 Depression Total Score: 13 024 9:47 AM EST documented as of this encounter Care Teams Grocery Associate Relationship Specialty Start Date End Date Yovany Crawley MD [address] [place] [address] PCP - General Family Medicine 07/20/23 Yovany Crawley MD [address] [place] [address] [facility]25 Ginny Cuello DIETITIAN ASSISTANT [address] [place] [address] Nurse Practitioner Family Medicine 01/19/25 documented as of this encounter
--- OUTSIDE RECORDS SUMMARY | 2025-04-10 22:24 | XMS_ITS | Encounter Summary ---
Author Organization [facility] Address [address] [place] [address] Care Team Providers Care Head Of Merchandise Buying Name Role Phone Yovany Crawley MD Primary Care Provider [phone] Raeann Ch NP Unavailable Ginny Cuello HEEL COMPRESSOR Unavailable [phone] Yovany Crawley MD Unavailable [phone] Victorina Champion MA Unavailable [phone] Encounter Details Date Type Department Care Team (Late st Contact Info) Description 02/22/2024 Abstract [facility] [address] [place] [address] Christianne Long LPN [address] [place] [address] Social History Tobacco Use Types Packs/Day Years Used Date Smoking Tobacco: Every Day Passive Smoke Exposure: Never Smokeless Tobacco: Never Comments:Pt vapes Alcohol Use Standard Drinks/Week Comments Never 0 (1 standard drink = 0.6 oz pure alcohol) caffeine intake: 2-3 cups per day of soda/pop ; more than 4 cups per day PHQ-2 Answer Date Recorded Patient Health Questionnaire-2 Score 4 10/21/2023 Comments Yes Sex and Gender Information Value Date Recorded Sex Assigned at Not on file Legal Sex Female 8:02 PM EDT Gender Identity Not on file Sexual Orientation Not on file Occupation Industry Job 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 Job End 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[employer], 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 Not on file Not on file Not on file documented as of this encounter Plan of Treatment Not on file documented as of this encounter Visit Diagnoses Not on filedocumented in this encounter Additional Health Concerns Assessment Noted Time PHQ-9 Depression Total Score: 13 024 9:47 AM EST documented as of this encounter Care Teams Head Of Merchandise Buying Relationship Specialty Start Date End Date Yovany Crawley MD [address] [place] [address] PCP - General Family Medicine 07/20/23 Yovany Crawley MD [address] [place] [address] PCP - [facility] 01/18/25 Raeann Ch NP [address] [place] [address] Nurse Practitioner Family Medicine 07/20/23 01/18/25 Ginny Cuello NP [address] [place] [address] Nurse Practitioner Family Medicine 01/19/25 Victorina Champion MA [address] [place] [address] Family Medicine 03/05/25 03/14/25 documented as of this encounter
--- OUTSIDE RECORDS SUMMARY | 2025-04-10 22:24 | XMS_ITS | Encounter Summary ---
Author Organization [facility] Address [address] [place] [address] Care Team Providers Care Senior Ui Ux Developer Name Role Phone Yovany Crawley MD Primary Care Provider [phone] Raeann Ch NP Unavailable Ginny Cuello DIRECTOR SALES SUPPORT Unavailable Yovany Crawley MD Unavailable [phone] Victorina Champion MA Unavailable [phone] Encounter Details Date Type Department Care Team (Late st Contact Info) Description 08/30/2024 Abstract [facility] [address] [place] [address] Jhonathan Pedraza, DO [address] [place] [address] Social History Tobacco Use Types Packs/Day [...] week 03/30/2024 How often do you attend [facility] or zoroastrian services? Never 03/30/2024 Do you belong to any clubs o r organizations such as muslim groups, unions, fraternal or athletic groups, or [...] Recorded Patient Health Questionnaire-2 Score 4 10/21/2023 [facility] Occupat ional Health - Occupational Stress Questionnaire [...] any time in the past 12 m [facility], were you homeless or living in a snf (including now)? 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 Not on file Not on file Not on file documented as of this encounter Plan of Treatment Not on file documented as of this encounter Visit Diagnoses Not on filedocumented in this encounter Additional Health Concerns Assessment Noted Time PHQ-9 Depression Total Score: 13 024 9:47 AM EST documented as of this encounter Care Teams Senior Ui Ux Developer Relationship Specialty Start Date End Date Yovany Crawley MD [address] [place] [address] PCP - General Family Medicine 07/20/23 Yovany Crawley MD [address] [place] [address] PCP - [facility] 01/18/25 Raeann Ch NP [address] [place] [address] Nurse Practitioner Family Medicine 07/20/23 01/18/25 Ginny Cuello NP [address] [place] [address] Nurse Practitioner Family Medicine 01/19/25 Victorina Champion MA [address] [place] [address] Family Medicine 03/05/25 03/14/25 documented as of this encounter
--- OUTSIDE RECORDS SUMMARY | 2025-04-10 22:24 | XMS_ITS | Clinical Summary ---
Author Organization [facility] Address [address] [place] [address] Care Team Providers Care Web Content & Social Media Manager Name Role Phone Yovany Crawley MD Primary Care Provider [phone] Ginny Cuello NP Unavailable [phone] Yovany Crawley MD Unavailable [phone] Allergies No known active allergies Medications cephalexin (Keflex) 500 MG capsule Take 500 mg by mouth in the morning and 500 mg in the evening and 500 mg before bedtime. 5 Active lisdexamfetamine (Vyvanse) 30 MG capsuleIndications :Attention deficit hyperactivity disorder (ADHD), combined type Take 1 capsule (30 mg) by mouth Daily 30 capsule 5 Active nicotine (Nicoderm CQ) 21 MG/24HR patchIndications:C igarette nicotine dependence without complication Place 1 patch over 24 hours on the skin 1 (one) time each day at the same time 30 patch 1 5 Active nicotine (Nicoderm CQ) 14 MG/24HR patchIndications:C igarette nicotine dependence without complication Place 1 patch over 24 hours on the skin 1 (one) time each day at the same time Do not fill until 02/14/25 30 patch 5 Active nicotine (Nicoderm CQ) 7 MG/24HR patchIndications:C igarette nicotine dependence without complication Place 1 patch over 24 hours on the skin 1 (one) time each day at the same time Do not fill until 03/16/25 30 patch 5 Active lisdexamfetamine (Vyvanse) 30 MG capsule Take 30 mg by mouth in the morning. Active Active Problems Problem Noted Date Diagnosed Date Chronic fatigue 07/20/2023 Attention-deficit hyperactivity disorder, other type 07/20/2023 Affective psychosis 07/19/2023 Bipolar II disorder, most recent episode major d epressive 07/19/2023 Hypoglycemia 07/19/2023 Mild persistent asthma without complication 06/22 Mixed anxiety and depressive disorder 07/19/2023 Resolved Problems Problem Noted Date Diagnosed Date Resolved Date Missed menses 07/20/2023 08/27/2023 Unspecified mood (affective) disorder 07/20/2023 07/20/2023 Attention deficit hyperactivity disorder 07/19/2023 07/20/2023 Encounters Date Type Department Care Team Description 04/10/2025 2:40 PM EDT Office Visit [facility] [address] [place] [address] Jhonathan Pedraza, Well woman exam with routine gynecological exam 04/10/2025 Bamboo flowsheet [facility] [address] [place] [address] Jhonathan Pedraza DO 04/10/2025 Travel 04/03/2025 Patient Outreach [facility] [address] [place] [address] Sayda Ochoa LSW 03/14/2025 Patient Outreach [facility] [address] [place] [address] Victorina Champion MA 01/24/2025 Abstract [facility] [address] [place] [address] Ginny Cuello NP 01/22/2025 Telephone [facility] [address] [place] [address] Constance Galvan MA 01/16/2025 8:20 AM EDT Office Visit [facility] [address] [place] [address] Ginny Cuello NP Encounter for adult wellness visit (Primary Dx); Fatigue, unspecified type; Attention deficit hyperactivity disorder (ADHD), combined type ; Vitamin D deficiency; Cigarette nicotine dependence without complication 01/16/2025 [place] flowsheet [facility] [address] [place] [address] Ginny Cuello NP 01/16/2025 Travel from Last 3 Months Immunizations Immunization Administration Dates Next Due DTP 06/11/2021 DTaP, Unspecified 04/01/2004, 0,01/23/2000,11/06,1999 HPV, Quadrivalent 06/09/2012 Hep A, ped/adol, 2 dose 06/09/2012 HiB, unspecified 08/20/2000 Hib / Hep B 01/23/2000,1999,1999 IPV 04/01/2004, 0,1999,08/04 Influenza, injectable, MDCK, preservative free, quadrivalent 07/20/2023 Influenza, injectable, quadr ivalent, preservative free 07/10/2022 MMR 06/11/2021,04/01/2004,08/20/2000 Meningococcal MCV4P 06/09/2012 PPD Test 12/23/2021 Polio, Unspecified 04/01/2004, 0,1999,08/04 Tdap 07/07/2022,06/09/2012 Varicella 01/13/2022,08/20/2000 Family History Medical History Relation Name Comments Depression Father Drug abuse Father Mental illness Father Arthritis Maternal Grandmother Mental illness Mother Stroke Paternal Grandmother Dot Depression Sister Relation Name Status Comments Father Alive Maternal Grandmother Mother Alive Paternal Grandmother Dot Sister Alive Social History Tobacco Use Types Packs/Day Years Used Date Smoking Tobacco: Never Passive Smoke Exposure: Never Smokeless Tobacco: Never Tobacco Cessation:Counseling Given: Not Answered Comments:Pt vapes Alcohol Use Standard Drinks/Week Comments [...] often do you attend chur ch or jew services? Never 03/30/2024 Do you belong to any clubs o r organizations such as religion groups, unions, fraternal or athletic groups, or [...] Recorded Patient Health Questionnaire-2 Score 0 01/16/2025 [facility] Occupat ional Health - Occupational Stress [...] any time in the past 12 m [facility], were you homeless or living in a halfway (including now)? 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 file Not on file Not on file Last Filed Vital Signs Vital Sign Reading Time Taken Comments Blood Pressure 108/70 04/10/2025 2:47 PM EDT Pulse 70 01/16/2025 8:28 AM EDT Temperature 36.4 C (97.5 F) 01/16/2025 8:28 AM EDT Respiratory Rate 20 01/16/2025 8:28 AM EDT Oxygen Saturation 100% 01/16/2025 8:28 AM EDT Inhaled Oxygen Concentration - - Weight 60.4 kg (133 lb 1.9 oz) 04/10/2025 2:47 P M EDT Height 175.3 cm (5' 9 ) 01/16/2025 8:28 AM EDT Body Mass Index 19.66 01/16/2025 8:28 AM EDT Plan of Treatment Health Maintenance Due Date Last Done Comments Influenza Vaccine (#1) 2025 07/20/2023, 2021 Insurance [facility] [employer] MEDICAID Care Teams Web Content & Social Media Manager Relationship Specialty Start Date End Date Yovany Crawley MD [address] [place] [address] PCP - General Family Medicine 07/20/23 Yovany Crawley MD [address] [place] [address] PCP - [facility] 01/18/25 Ginny Cuello NP [address] [place] [address] Nurse Practitioner Family Medicine 01/19/25
--- OUTSIDE RECORDS SUMMARY | 2025-04-10 22:24 | XMS_ITS | Encounter Summary ---
Author Organization [facility] Address [address] [place] [address] Care Team Providers Care Biology Intern Name Role Phone Yovany Crawley MD Primary Care Provider [phone] Raeann Ch NP Unavailable Ginny Cuello NP Unavailable [phone] Yovany Crawley MD Unavailable [phone] Victorina Champion MA Unavailable [phone] Encounter Details Date Type Department Care Team (Late st Contact Info) Description 02/04/2024 Clinisync Result Encounter [facility] External Department Unsolicited Jhonathan Pedraza, DO [address] [place] [address] Social History Tobacco Use Types Packs/Day Years [...] Industry Job Start Date Job End Date [employer]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, 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 Not on file Not on file Not on file documented as of this encounter Plan of Treatment Not on file documented as of this encounter Procedures Procedure Name Priority Date/Time Associated Diagnosis Comments US OB TRANSVAGINAL 02/04/2024 10 :11 AM EDT documented in this encounter Results * US OB TRANSVAGINAL (02/04/2024 10:11 AM EDT) Anatomical Region Laterality Modality Other 02/04/2024 10:1 1 AM EDT Narrative 02/04/2024 10:13 [place] [address] Ultrasound Report Signed Patient: LE ROCHA MR#: [id number] : 2000 Acct:[id number] Age/Sex: 23 / F ADM Date: 02/04/24 Loc: [facility] Attending Dr: Jhonathan Pedraza D.O. Ordering Physician: Jhonathan Pedraza D.O. Date of Service: 02/04/24 Procedure(s): US OB transvaginal Accession Number(s): [id number] cc: FAMILY,HEALTH SER ; Jhonathan Pedraza D.O. [place] [address] Patient Name: LE ROCHA MRN: [id number] date: 2000 Sex: F Assigned Patient Location: [facility] Current Patient Location: [facility] Accession/Order Number: [id number] Exam Date: 02/04/2024 09:04 Report Date: 02/04/2024 10:11 At the request of: JHONATHAN PEDRAZA Procedure: US OB transvaginal EXAMINATION: US OB transvaginal HISTORY: MISSED MENSES COMPARISON: No relevant comparison available. FINDINGS: Ponce intrauterine gestation Gestational sac: 2.0 cm, 7 weeks 4 days CRL: 1.9 cm, 8 weeks 3 days Yolk sac: 4.4 mm Heart rate: 182 beats minute Cervix: Closed, 4.3 cm The uterus is normal, anteverted, anteflexed The right ovary contains a 3 cm complex cystic structure possibly corpus luteal cyst The left ovary is normal Clinical age: 8 weeks 3 days Clinical KEATON: 09/12/2024 Ultrasound age: 8 weeks 3 days Ultrasound KEATON: 09/12/2024 US/US OB transvaginal IMPRESSION: Viable ponce intrauterine gestation measuring 8 weeks 3 days Electronically authenticated by: KIRSTIN BOJORQUEZ Date: 02/04/2024 10:11 Dictated By: Kirstin Bojorquez M.D. Signed By: 02/04/24 1013 DD/ 1011 TD/TT: Stripper And Printer: Procedure Note Radiology, Radiologist, MD - 02/04/2024 [place] [address] Ultrasound Report Signed Patient: LE ROCHA LMR#: [id number] : 2000Acct:[id number] Age/Sex: 23 FADM Date: 02/04/24 Loc: [facility] Attending Dr: Jhonathan Pedraza D.O. Ordering Physician: Jhonathan Pedraza D.O. Date of Service: 02/04/24 Procedure(s): US OB transvaginal Accession Number(s): [id number] cc: FAMILY,HEALTH SER ; Jhonathan Pedraza D.O. The [place] [id number] Patient Name: LE ROCHA MRN: [id number] date: 2000 Sex: F Assigned Patient Location: [facility] Current Patient Location: [facility] Accession/Order Number: [id number] Exam Date: 02/04/2024 09:04 Report Date: 02/04/2024 10:11 At the request of: JHONATHAN PEDRAZA Procedure: US OB transvaginal EXAMINATION: US OB transvaginal HISTORY: MISSED MENSES COMPARISON: No relevant comparison available. FINDINGS: Ponce intrauterine gestation Gestational sac: 2.0 cm, 7 weeks 4 days CRL: 1.9 cm, 8 weeks 3 days Yolk sac: 4.4 mm Heart rate: 182 beats minute Cervix: Closed, 4.3 cm The uterus is normal, anteverted, anteflexed The right ovary contains a 3 cm complex cystic structure possibly corpus luteal cyst The left ovary is normal Clinical age: 8 weeks 3 days Clinical KEATON: 09/12/2024 Ultrasound age: 8 weeks 3 days Ultrasound KEATON: 09/12/2024 US/US OB transvaginal IMPRESSION: Viable ponce intrauterine gestation measuring 8 weeks 3 days Electronically authenticated by: KIRSTIN BOJORQUEZ Date: 02/04/2024 10:11 Dictated By: Kirstin Bojorquez M.D. Signed By:02/04/24 1013 DD/ 1011 TD/TT: Stripper And Printer: us Jhonathan Keila DO [facility] Final Result documented in this encounter Visit Diagnoses Not on filedocumented in this encounter Additional Health Concerns Assessment Noted Time PHQ-9 Depression Total Score: 13 024 9:47 AM EST documented as of this encounter Care Teams Biology Intern Relationship Specialty Start Date End Date Yovany Crawley MD [address] [place] [address] PCP - General Family Medicine 07/20/23 Yovany Crawley MD [address] [place] [address] PCP - [facility] 01/18/25 Raeann Ch NP [address] [place] [address] Nurse Practitioner Family Medicine 07/20/23 01/18/25 Ginny Cuello NP [address] [place] [address] Nurse Practitioner Family Medicine 01/19/25 Victorina Champion MA [address] [place] [address] Family Medicine 03/05/25 03/14/25 documented as of this encounter
--- OUTSIDE RECORDS SUMMARY | 2025-04-10 22:24 | XMS_ITS | Encounter Summary ---
Author Organization [facility] Address [address] [place] [address] Care Team Providers Care Nut Packer Name Role Phone Yovany Crawley MD Primary Care Provider [phone] Raeann Ch NP Unavailable Ginny Cuello ACCOUNTING ADMINISTRATIVE ASSISTANT Unavailable [phone] Yovany Crawley MD Unavailable [phone] Victorina Champion MA Unavailable [phone] Encounter Details Date Type Department Care Team (Late st Contact Info) Description 07/03/2024 Clinisync Result Encounter [facility] External Department Unsolicited Jhonathan Pedraza, DO [address] [place] [address] Social History Tobacco Use Types Packs/Day Years [...] week 03/30/2024 How often do you attend [facility] or yarsanism services? Never 03/30/2024 Do you belong to any clubs o r organizations such as pentecostalism groups, unions, fraternal or athletic groups, or [...] Recorded Patient Health Questionnaire-2 Score 4 10/21/2023 [facility] Occupat ional [facility] - Occupational Stress Questionnaire Answer Date Recorded [...] were you homeless or living in a longterm (including now)? 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 Not on file Not on file Not on file documented as of this encounter Plan of Treatment Not on file documented as of this encounter Procedures Procedure Name Priority Date/Time Associated Diagnosis Comments US OB GROWTH 07/03/2024 11:26 AM EDT documented in this encounter Results * US OB GROWTH (07/03/2024 11:26 AM EDT) Anatomical Region Laterality Modality Other 07/03/2024 11:2 6 AM EDT Narrative 07/03/2024 11:28 [place] [address] Ultrasound Report Signed Patient: LE ROCHA MR#: [id number] : 2000 Acct:[id number] Age/Sex: 24 / F ADM Date: 06/30/24 Loc: US Attending Dr: Jhonathan Pedraza D.O. Ordering Physician: Jhonathan Pedraza D.O. Date of Service: 06/30/24 Procedure(s): US OB growth Accession Number(s): [id number] cc: FAMILY,HEALTH SER ; Jhonathan Pedraza D.O. The [place] [id number] Patient Name: LE ROCHA MRN: [id number] date: 2000 Sex: F Assigned Patient Location: US Current Patient Location: Accession/Order Number: [id number] Exam Date: 06/30/2024 19:00 Report Date: 07/03/2024 11:26 At the request of: JHONATHAN PEDRAZA Procedure: US OB growth EXAMINATION: US OB growth HISTORY: SIZE INCONSISTENT WITH DATES O26.849 COMPARISON: No relevant comparison available. FINDINGS: Heart Rate: 141.36 bpm Amniotic Fluid Volume: 17.5 cm, largest fluid pocket 5 cm Number: 1 Position: Cephalic presentation, longitudinal lie BIOMETRY: BPD: 7.49 cm; 30 weeks 0 days; 57.40 % HC: 27.38 cm; 29 weeks 6 days; 29 % AC: 25.18 cm; 29 weeks 3 days; 42.50 % FL: 5.57 cm; 29 weeks 2 days; 32.20 % EFW: 1398.45 g; 38 %, 3 lbs. 1 oz. FL/AC: 22.13 FL/BPD: 74.44 HC/AC: 1.09 GESTATIONAL AGE: Age by EDC: 29 weeks 3 days KEATON by EDC: 2024-09-12 Age by US: 29 weeks 5 days KEATON by US: 2024-09-10 US/US OB growth IMPRESSION: Normal interval growth Electronically authenticated by: KIRSTIN BOJORQUEZ Date: 07/03/2024 11:26 Dictated By: Kirstin Bojorquez M.D. Signed By: 07/03/24 1128 DD/ 1126 TD/TT: Hotel Assistant Manager: Procedure Note Radiology, Radiologist, MD - 07/03/2024 [place] [address] Ultrasound Report Signed Patient: LE ROCHA LMR#: [id number] : 2000Acct:[id number] Age/Sex: 24 / FADM Date: 06/30/24 Loc: US Attending Dr: Jhonathan Pedraza D.O. Ordering Physician: Jhonathan Pedraza D.O. Date of Service: 06/30/24 Procedure(s): US OB growth Accession Number(s): [id number] cc: FAMILY,HEALTH SER ; Jhonathan Pedraza D.O. The [address] [address] Patient Name: LE ROCHA MRN: [id number] date: 2000 Sex: F Assigned Patient Location: US Current Patient Location: Accession/Order Number: [id number] Exam Date: 06/30/2024 19:00 Report Date: 07/03/2024 11:26 At the request of: JHONATHAN PEDRAZA Procedure: US OB growth EXAMINATION: US OB growth HISTORY: SIZE INCONSISTENT WITH DATES O26.849 COMPARISON: No relevant comparison available. FINDINGS: Heart Rate: 141.36 bpm Amniotic Fluid Volume: 17.5 cm, largest fluid pocket 5 cm Number: 1 Position: Cephalic presentation, longitudinal lie BIOMETRY: BPD: 7.49 cm; 30 weeks 0 days; 57.40 % HC: 27.38 cm; 29 weeks 6 days; 29 % AC: 25.18 cm; 29 weeks 3 days; 42.50 % FL: 5.57 cm; 29 weeks 2 days; 32.20 % EFW: 1398.45 g; 38 %, 3 lbs. 1 oz. FL/AC: 22.13 FL/BPD: 74.44 HC/AC: 1.09 GESTATIONAL AGE: Age by EDC: 29 weeks 3 days KEATON by EDC: 2024-09-12 Age by US: 29 weeks 5 days KEATON by US: 2024-09-10 US/US OB growth IMPRESSION: Normal interval growth Electronically authenticated by: KIRSTIN BOJORQUEZ Date: 07/03/2024 11:26 Dictated By: Kirstin Bojorquez M.D. Signed By:07/03/24 1128 DD/ TD/TT: Hotel Assistant Manager: us Jhonathan Pedraza DO [facility] Final Result documented in this encounter Visit Diagnoses Not on filedocumented in this encounter Additional Health Concerns Assessment Noted Time PHQ-9 Depression Total Score: 13 10/21/ 024 9:47 AM EST documented as of this encounter Care Teams Nut Packer Relationship Specialty Start Date End Date Yovany Crawley MD [address] [place] [address] PCP - General Family Medicine 07/20/23 Yovany Crawley MD [address] [place] [address] PCP - [facility] 01/18/25 Raeann Ch NP [address] [place] [address] Nurse Practitioner Family Medicine 07/20/23 01/18/25 Ginny Cuello NP [address] [place] [address] Nurse Practitioner Family Medicine 01/19/25 Victorina Champion MA [address] [place] [address] Family Medicine 03/05/25 03/14/25 documented as of this encounter
--- OUTSIDE RECORDS SUMMARY | 2025-04-10 22:24 | XMS_ITS | Encounter Summary ---
Author Organization [facility] Address [address] [place] [address] Care Team Providers Care Inside Sales Lead Name Role Phone Yovany Crawley MD Primary Care Provider [phone] Raeann Ch NP Unavailable Ginny Cuello WEBFOCUS DEVELOPER Unavailable Yovany Crawley MD Unavailable [phone] Victorina Champion MA Unavailable [phone] Encounter Details Date Type Department Care Team (Late st Contact Info) Description 02/22/2024 Abstract [facility] OB [address] [place] [address] Christianne Long LPN [address] [place] [address] Social History Tobacco Use Types [...] Industry 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 01/18/25 Raeann Ch NP [address] [place] [address] Nurse Practitioner Family Medicine 07/20/23 01/18/25 Ginny Cuello NP [address] [place] [address] Nurse Practitioner Family Medicine 01/19/25 Victorina Champion MA [address] [place] [address] Family Medicine 03/05/25 03/14/25 documented as of this encounter
--- OUTSIDE RECORDS SUMMARY | 2025-04-10 22:24 | XMS_ITS | Encounter Summary ---
Author Organization [facility] Address [address] [place] [address] Care Team Providers Care Stores Naval Name Role Phone Yovany Crawley MD Primary Care Provider [phone] Raeann Ch NP Unavailable Ginny Cuello MEAT PRODUCTS DEMONSTRATOR Unavailable [phone] Yovany Crawley MD Unavailable [phone] Victorina Champion MA Unavailable [phone] Encounter Details Date Type Department Care Team (Late st Contact Info) Description 06/15/2024 Clinisync Result Encounter [facility] External Department Unsolicited Tessa Pedraza, DO [address] [place] [address] Social History Tobacco Use Types Packs/Day Years [...] often do you attend [facility] or worship services? Never 03/30/2024 Do you belong to any clubs o r organizations such as episcopal groups, unions, fraternal or athletic groups, or [...] Recorded Patient Health Questionnaire-2 Score 4 10/21/2023 [facility] Occupat ional [facility] - Occupational Stress Questionnaire Answer Date Recorded [...] were you homeless or living in a penitentiary (including now)? 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 Not on file Not on file Not on file documented as of this encounter Plan of Treatment Not on file documented as of this encounter Procedures Procedure Name Priority Date/Time Associated Diagnosis Comments US OB INCOMPLETE ANATOMY 06/15/2024 4:08 AM EDT documented in this encounter Results * US OB INCOMPLETE ANATOMY (06/15/2024 4:08 AM EDT) Anatomical Region Laterality Modality Other 06/15/2024 4:08 AM EDT Narrative 06/15/2024 4:10 [place] [address] Ultrasound Report Signed Patient: CHARLETTE ROCHA MR#: [id number] : 2000 Acct:[id number] Age/Sex: 24 / F ADM Date: 06/14/24 Loc: US Attending Dr: Tessa Pedraza D.O. Ordering Physician: Tessa Pedraza D.O. Date of Service: 06/14/24 Procedure(s): US OB incomplete anatomy Accession Number(s): [id number] cc: FAMILY,HEALTH SER ; Tessa Pedraza D.O. The [place] [id number] Patient Name: CHARLETTE ROCHA MRN: [id number] date: 2000 Sex: F Assigned Patient Location: US Current Patient Location: Accession/Order Number: [id number] Exam Date: 06/14/2024 15:04 Report Date: 06/15/2024 04:08 At the request of: TESSA PEDRAZA Procedure: US OB incomplete anatomy EXAM: US OB incomplete anatomy, US OB transvaginal HISTORY: Encounter For Follow Up Ultrasound Of Anatomy Z36.2 COMPARISON: Ultrasound OB anatomy 05/02/2024 TECHNIQUE: Transabdominal and endovaginal ultrasound. FINDINGS: Presentation: Cephalic Heart rate: 136 bpm Placenta: Posterior with lower margin 4.1 cm from os. Cervix: 4.0 cm in length, closed. Anatomy: Four-chamber heart, cardiac outflow tracts, upper extremities GA: 27 weeks 1 day KEATON 09/12/2024 US/US OB incomplete anatomy IMPRESSION: 1. Single live intrauterine . 2. Adequate visualization of the four-chamber heart, cardiac outflow tracts, and upper extremities. No appreciable abnormality. Electronically authenticated by: ÓSCAR SHELLEY Date: 06/15/2024 04:08 Dictated By: Óscar Shelley M.D. Signed By: 06/15/240 DD/ 0408 TD/TT: Help Desk Rep: Procedure Note Radiology, Radiologist, MD - 06/15/2024 [place] [address] Ultrasound Report Signed Patient: CHARLETTE ROCHA LMR#: [id number] : 2000Acct:[id number] Age/Sex: Date: 06/14/24 Loc: US Attending Dr: Tessa Pedraza D.O. Ordering Physician: Tessa Pedraza D.O. Date of Service: 06/14/24 Procedure(s): US OB incomplete anatomy Accession Number(s): [id number] cc: FAMILY,HEALTH SER ; Tessa Pedraza D.O. The [place] [address] Patient Name: CHARLETTE ROCHA MRN: [id number] date: 2000 Sex: F Assigned Patient Location: US Current Patient Location: Accession/Order Number: [id number] Exam Date: 06/14/2024 15:04 Report Date: 06/15/2024 04:08 At the request of: TESSA PEDRAZA Procedure: US OB incomplete anatomy EXAM: US OB incomplete anatomy, US OB transvaginal HISTORY: Encounter For Follow Up Ultrasound Of Anatomy Z36.2 COMPARISON: Ultrasound OB anatomy 05/02/2024 TECHNIQUE: Transabdominal and endovaginal ultrasound. FINDINGS: Presentation: Cephalic Heart rate: 136 bpm Placenta: Posterior with lower margin 4.1 cm from os. Cervix: 4.0 cm in length, closed. Anatomy: Four-chamber heart, cardiac outflow tracts, upper extremities GA: 27 weeks 1 day KEATON 09/12/2024 US/US OB incomplete anatomy IMPRESSION: 1. Single live intrauterine . 2. Adequate visualization of the four-chamber heart, cardiac outflowtracts, and upper extremities. No appreciable abnormality. Electronically authenticated by: ÓSCAR SHELLEY Date: 06/15/2024 04:08 Dictated By: Óscar Shelley M.D. Signed By:06/15/240 DD/ TD/TT: Help Desk Rep: us Tessa Keila DO [facility] Final Result documented in this encounter Visit Diagnoses Not on filedocumented in this encounter Additional Health Concerns Assessment Noted Time PHQ-9 Depression Total Score: 13 024 9:47 AM EST documented as of this encounter Care Teams Stores Naval Relationship Specialty Start Date End Date Yovany Crawley MD [address] [place] [address] PCP - General Family Medicine 07/20/23 Yovany Crawley MD [address] [place] [address] PCP - [facility] 01/18/25 Raeann Ch NP [address] [place] [address] Nurse Practitioner Family Medicine 07/20/23 01/18/25 Ginny Cuello NP [address] [place] [address] Nurse Practitioner Family Medicine 01/19/25 Victorina Champion MA [address] [place] [address] Family Medicine 03/05/25 03/14/25 documented as of this encounter
--- OUTSIDE RECORDS SUMMARY | 2025-04-10 22:24 | XMS_ITS | Encounter Summary ---
Author Organization [facility] Address [address] [place] [address] Care Team Providers Care Appliance Sales Associate Name Role Phone Yovany Crawley MD Primary Care Provider [phone] Raeann Ch NP Unavailable Ginny Cuello AUDITOR IN CHARGE Unavailable Yovany Crawley MD Unavailable [phone] Victorina Champion MA Unavailable [phone] Encounter Details Date Type Department Care Team (Late st Contact Info) Description 05/03/2024 Clinisync Result Encounter [facility] External Department Unsolicited Tessa Pedraza, DO [address] [facility] [place] [address] Social History Tobacco Use Types Packs/Day Years [...] 03/30/2024 How often do you attend [facility] or shinto services? Never 03/30/2024 Do you belong to any clubs o r organizations such as mandaen groups, unions, fraternal or athletic groups, or [...] Recorded Patient Health Questionnaire-2 Score 4 10/21/2023 [facility] Occupat ional [facility] - Occupational Stress Questionnaire Answer Date [...] were you homeless or living in a long term (including now)? 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 file Not on file Not on file documented as of this encounter Plan of Treatment Not on file documented as of this encounter Procedures Procedure Name Priority Date/Time Associated Diagnosis Comments US OB CERVICAL LENGTH 05/03/2024 7:11 AM EDT documented in this encounter Results * US OB CERVICAL LENGTH (05/03/2024 7:11 AM EDT) Anatomical Region Laterality Modality Other 05/03/2024 7:11 AM EDT Narrative 05/03/2024 7:14 [place] [address] Ultrasound Report Signed Patient: CHARLETTE ROCHA MR#: [id number] : 2000 Acct:[id number] Age/Sex: 23 / F ADM Date: 05/02/24 Loc: US Attending Dr: Tessa Pedraza D.O. Ordering Physician: Tessa Pedraza D.O. Date of Service: 05/02/24 Procedure(s): US OB cervical length Accession Number(s): [id number] cc: FAMILY,HEALTH SER ; Tessa Pedraza D.O. [facility] [place] [id number] Patient Name: CHARLETTE ROCHA MRN: [facility]:[id number] date: 2000 Sex: F Assigned Patient Location: US Current Patient Location: Accession/Order Number: [id number] Exam Date: 05/02/2024 16:10 Report Date: 05/03/2024 07:11 At the request of: TESSA PEDRAZA Procedure: US OB cervical length EXAMINATION: US OB cervical length, US OB [...] 2024-09-14 [place] by EDC: 2024-09-12 US/US OB cervical length IMPRESSION: Suboptimal visualization detailed above Low lying placenta, the placental edge is 2.6 cm from the internal os *Reference: [facility] Practice Guideline for the performance of Obstetric Ultrasound Examinations, June 20, 2007. Electronically authenticated by: KIRSTIN BOJORQUEZ Date: 05/03/2024 07:11 Dictated By: Kirstin Bojorquez M.D. Signed By: 05/03/24713 DD/ 0 TD/TT: Ancillary Services Manager Therapy: Procedure Note Radiology, Radiologist, - 05/03/2024 [place] [address] Ultrasound Report Signed Patient: CHARLETTE ROCHA LMR#: [id number] : 2000Acct:[id number] Age/Sex: 23 / FADM Date: 05/02/24 Loc: US Attending Dr: Tessa Pedraza D.O. Ordering Physician: Tessa Pedraza D.O. Date of Service: 05/02/24 Procedure(s): US OB cervical length Accession Number(s): [id number] cc: FAMILY,HEALTH SER ; Tessa Pedraza D.O. [place] [address] Patient Name: CHARLETTE ROCHA MRN: [facility]:[id number] date: 2000 Sex: F Assigned Patient Location: US Current Patient Location: Accession/Order Number: [id number] Exam Date: 05/02/2024 16:10 Report Date: 05/03/2024 07:11 At the request of: TESSA PEDRAZA Procedure: US OB cervical length EXAMINATION: US OB cervical length, US OB [...] 2024-09-14 KEAT[place] by EDC: 2024-09-12 US/US OB cervical length IMPRESSION: Suboptimal visualization detailed above Low lying placenta, the placental edge is 2.6 cm from the internal os *Reference: [facility]UM Practice Guideline for the performance of Obstetric Ultrasound Examinations, June 20, 2007. Electronically authenticated by: KIRSTIN BOJORQUEZ Date: 05/03/2024 07:11 Dictated By: Kirstin Bojorquez M.D. Signed By:05/03/2414 DD/ 0 TD/TT: Ancillary Services Manager Therapy: us Tessa Keila DO [facility] Final Result documented in this encounter Visit Diagnoses Not on filedocumented in this encounter Additional Health Concerns Assessment Noted Time PHQ-9 Depression Total Score: 13 024 9:47 AM EST documented as of this encounter Care Teams Appliance Sales Associate Relationship Specialty Start Date End Date Yovany Crawley MD [address] [place] [address] PCP - General Family Medicine 07/20/23 Yovany Crawley MD [address] [place] [address] PCP - [facility] 01/18/25 Raeann Ch NP [address] [place] [address] Nurse Practitioner Family Medicine 07/20/23 01/18/25 Ginny Cuello NP [address] [place] [address] Nurse Practitioner Family Medicine 01/19/25 Victorina Champion MA [address] [place] [address] Family Medicine 03/05/25 03/14/25 documented as of this encounter
--- OUTSIDE RECORDS SUMMARY | 2025-04-10 22:24 | XMS_ITS | Patient Health Record ---
Author Organization [facility] artaculousic es Address [address] [place] [address] Care Team Providers Care Social Media Marketing Analyst Name Role Phone Tiarra Childs Primary Care Provider [phone] Corazon Field Unavailable [phone] Allergies No Known Allergies Reason For Referral No Information Medications Medication SIG (Take, Route, Frequency, Duration) Notes Start Date End Date Status Albuterol Sulfate (2.5 MG/3ML) 0.083% 3 mL as needed Inhalation four times a day (qid) as needed (prn); Duration: 15 days 12/09/2022 Not-Giorgi ing + Complete Multi 0.267 & 373 MG 1 capsule orally daily Not-Taking Amphetamine-Dextroamphet ER 10 MG 1 capsule in the morning Orally Once a day; Duration: 30 days 05/27/2023 Not-Taking Adderall XR 20 MG 1 capsule in the mor starr Orally Once a day Not-Taking Ventolin HFA 108 (90 Base) MCG/ACT 2 puff as needed Inhalation every 4-6 hrs; Duration: 30 days Active Social History Tobacco Use: Social History Observation Description Date Details (start date - stop date) Current Smoker NA - NA Tobacco Screen: Question Answer Notes Are you a: current smoker How often do you smoke cigarettes? every day How many cigarettes a day do you smoke? 6-10 Sexual Hx: Question Answer Notes Had sex in the last 12 months (vaginal, oral, or anal)? Yes with Men only Use protection? No Alcohol Screening: Question Answer Notes Did you have a drink containing alcohol in the p ast year? No Points 0 Interpretation Negative Problems Problem Type SNOMED Code ICD Code Onset Dates Problem Status W/U Status Risk Notes Problem Affective psychosis (104954557) Unspecified mood [affective] disorder (F39) Active confirmed Problem Hypoglycemia (350929005) Hypoglycemia (E16.2) Active confirmed Problem Psoriasis (7687086) Psoriasis (L40.9) Active confirmed Problem Uncomplicated mild persistent asthma (825479410) Mild persistent asthma without complication (J45.30) Active confirmed Problem Menstrual problem (871768092) Abnormal menses (N92.6) Active confirmed Problem Chronic fatigue syndrome (78192216) Chronic fatigue (R53.82) Active confirmed Problem Missed period (87905872) Missed menses (N92.6) Active confirmed Problem Attention deficit hyperactivity disorder (395108433) Attention deficit hyperactivity disorder (ADHD), other type (F90.8) Active confirmed Problem Attention deficit hyperactivity disorder (429886394) Other Specified Attention Deficit Hyperactivity Disorder (ADHD) (F90.8) Active confirmed Plan Of Treatment No Information Insurance Providers Payer Name Payer Address Payer Phone Subscriber Number Group Number Insured Name Patient Relationship to Insured Coverage Start Date Coverage End Date ANTHEM Primary [address] [place] [address] [id number] JUAN ANTONIO KELLER Child - Insured has Financial Responsibility 1 [employer] re [place] Medicaid [address] [place] [address] [id number] CHARLETTE ROCHA Self - patient is the insured 3 Wrap [facility] [address] [place] [address] [id number] CHARLETTE ROCHA Self - patient is the insured 3 [facility] [address] [place] [address] [id number] CHARLETTE ROCHA Self - patient is the insured 3 3 [employer] after [facility] CHP-term ed 22 [address] [place] [address] [phone] [id number] CHARLETTE ROCHA Self - patient is the insured 3 3 [employer] [place] Medicaid [address] [place] [address] [id number] CHARLETTE RCOHA Self - patient is the insured 3 Wrap [facility] [address] [place] [address] [id number] CHARLETTE ROCHA Self - patient is the insured 3 Medical (General) History Medical History History ICD Code Psoriasis ADHD Asthma Miscarriage at 10 Weeks Bipolar Disorder Miscarriage 06/12 Surgical History Surgery Date(Month/Year) Laparoscopy Expoloratory Abd for Inferti lity and Ovarian Cysts Laparoscopy Exploratory Abd 12/10
--- OUTSIDE RECORDS SUMMARY | 2025-04-10 22:24 | XMS_ITS | Encounter Summary ---
Author Organization [facility] Address [address] [place] [address] Care Team Providers Care Chief Compressor Station Engineer Name Role Phone Yovany Crawley MD Primary Care Provider [phone] Raeann Ch NP Unavailable Ginny Cuello ELECTRICAL RESEARCH ENGINEER Unavailable Yovany Crawley MD Unavailable [phone] Victorina Champion MA Unavailable [phone] Encounter Details Date Type Department Care Team (Late st Contact Info) Description 06/19/2024 Abstract [facility] OB [address] [place] [address] Jhonathan Pedraza, DO [address] [place] [address] Social History Tobacco Use Types Packs/Day [...] week 03/30/2024 How often do you attend [facility] or mu-ism services? Never 03/30/2024 Do you belong to any clubs o r organizations such as jainism groups, unions, fraternal or athletic groups, or [...] Recorded Patient Health Questionnaire-2 Score 4 10/21/2023 [facility] Occupat ional Health - Occupational Stress Questionnaire [...] any time in the past 12 m [facility], were you homeless or living in a care home (including now)? 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 Not on file Not on file Not on file documented as of this encounter Plan of Treatment Not on file documented as of this encounter Visit Diagnoses Not on filedocumented in this encounter Additional Health Concerns Assessment Noted Time PHQ-9 Depression Total Score: 13 024 9:47 AM EST documented as of this encounter Care Teams Chief Compressor Station Engineer Relationship Specialty Start Date End Date Yovany Crawley MD [address] [place] [address] PCP - General Family Medicine 07/20/23 Yovany Crawley MD [address] [place] [address] PCP - [facility] 01/18/25 Raeann Ch NP [address] [place] [address] Nurse Practitioner Family Medicine 07/20/23 01/18/25 Ginny Cuello NP [address] [place] [address] Nurse Practitioner Family Medicine 01/19/25 Victorina Champion MA [address] [place] [address] Family Medicine 03/05/25 03/14/25 documented as of this encounter
--- OUTSIDE RECORDS SUMMARY | 2025-04-10 22:24 | XMS_ITS | Encounter Summary ---
Author Organization [facility] Address [address] [place] [address] Care Team Providers Care Vault Service Mechanic Name Role Phone Yovany Crawley MD Primary Care Provider [phone] Raeann Ch NP Unavailable Ginny Cuello LUMBER RACKER Unavailable [phone] Yovany Crawley MD Unavailable [phone] Victorina Champion MA Unavailable [phone] Encounter Details Date Type Department Care Team (Late st Contact Info) Description 06/15/2024 Clinisync Result Encounter [facility] External Department Unsolicited Tessa Pedraza, DO [address] [facility] [address] [place] [address] Social History Tobacco Use Types Packs/Day Years [...] week 03/30/2024 How often do you attend [facility] or yazidi services? Never 03/30/2024 Do you belong to any clubs o r organizations such as catholic groups, unions, fraternal or athletic groups, or [...] [facility] Occupat ional [facility] - Occupational Stress Questionnaire Answer Date [...] were you homeless or living in a correction (including now)? 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 Not on file Not on file Not on file documented as of this encounter Plan of Treatment Not on file documented as of this encounter Procedures Procedure Name Priority Date/Time Associated Diagnosis Comments US OB TRANSVAGINAL 06/15/2024 4: 08 AM EDT documented in this encounter Results * US OB TRANSVAGINAL (06/15/2024 4:08 AM EDT) Anatomical Region Laterality Modality Other 06/15/2024 4:08 AM EDT Narrative 06/15/2024 4:10 [place] [address] Ultrasound Report Signed Patient: CHARLETTE ROCHA MR#: [id number] : 2000 Acct:[id number] Age/Sex: 24 / F ADM Date: 06/14/24 Loc: US Attending Dr: Tessa Pedraza D.O. Ordering Physician: Tessa Pedraza D.O. Date of Service: 06/14/24 Procedure(s): US OB transvaginal Accession Number(s): [id number] cc: FAMILY,HEALTH SER ; Tessa Pedraza D.O. The [place] [address] Patient Name: CHARLETTE ROCHA MRN: [id number] date: 2000 Sex: F Assigned Patient Location: US Current Patient Location: Accession/Order Number: [id number] Exam Date: 06/14/2024 15:04 Report Date: 06/15/2024 04:08 At the request of: TESSA PEDRAZA Procedure: US OB transvaginal EXAM: US OB incomplete anatomy, US OB [...] weeks 1 day KEAT[place] 09/12/2024 US/US OB transvaginal IMPRESSION: 1. Single live intrauterine . 2. Adequate visualization of the four-chamber heart, cardiac outflow tracts, and upper extremities. No appreciable abnormality. Electronically authenticated by: ÓSCAR SHELLEY Date: 06/15/2024 04:08 Dictated By: Óscar Shelley M.D. Signed By: 06/15/24 0410 DD/ 0408 TD/TT: Continuous Churn Buttermaker: Procedure Note Radiology, Radiologist, MD - 06/15/2024 [place] [address] Ultrasound Report Signed Patient: CHARLETTE ROCHA LMR#: [id number] : 2000Acct:[id number] Age/Sex: Date: 06/14/24 Loc: US Attending Dr: Tessa Pedraza D.O. Ordering Physician: Tessa Pedraza D.O. Date of Service: 06/14/24 Procedure(s): US OB transvaginal Accession Number(s): [id number] cc: FAMILY,HEALTH SER ; Tessa Pedraza D.O. The [place] [id number] Patient Name: CHARLETTE ROCHA MRN: [id number] date: 2000 Sex: F Assigned Patient Location: US Current Patient Location: Accession/Order Number: [id number] Exam Date: 06/14/2024 15:04 Report Date: 06/15/2024 04:08 At the request of: TESSA PEDRAZA Procedure: US OB transvaginal EXAM: US OB incomplete anatomy, US OB [...] weeks 1 day [place] 09/12/2024 US/US OB transvaginal IMPRESSION: 1. Single live intrauterine . 2. Adequate visualization of the four-chamber heart, cardiac outflowtracts, and upper extremities. No appreciable abnormality. Electronically authenticated by: ÓSCAR SHELLEY Date: 06/15/2024 04:08 Dictated By: Óscar Shelley M.D. Signed By:06/15/24 0410 DD/ 0408 TD/TT: Continuous Churn Buttermaker: us Tessa Keila DO [facility] Final Result documented in this encounter Visit Diagnoses Not on filedocumented in this encounter Additional Health Concerns Assessment Noted Time PHQ-9 Depression Total Score: 13 024 9:47 AM EST documented as of this encounter Care Teams Vault Service Mechanic Relationship Specialty Start Date End Date Yovany Crawley MD [address] [place] [address] PCP - General Family Medicine 07/20/23 Yovany Crawley MD [address] [place] [address] PCP - [facility] 01/18/25 Raeann Ch NP [address] [place] [address] Nurse Practitioner Family Medicine 07/20/23 01/18/25 Ginny Cuello NP [address] [place] [address] Nurse Practitioner Family Medicine 01/19/25 Victorina Champion MA [address] [place] [address] Family Medicine 03/05/25 03/14/25 documented as of this encounter
--- OUTSIDE RECORDS SUMMARY | 2025-04-10 22:24 | XMS_ITS | Encounter Summary ---
Author Organization [facility] Address [address] [facility] [place] [address] Care Team Providers Care Inverter And Clipper Name Role Phone Yovany Crawley MD Primary Care Provider [phone] Raeann Ch NP Unavailable Ginny Cuello NP Unavailable Yovany Crawley MD Unavailable [phone] Victorina Champion MA Unavailable [phone] Encounter Details Date Type Department Care Team (Late st Contact Info) Description 05/24/2024 Abstract [facility] [address] [place] [id number] Raeann Ch NP [address] [facility] [place] [address] Social History Tobacco Use Types Packs/Day Years [...] week 03/30/2024 How often do you attend [facility] or tenriism services? Never 03/30/2024 Do you belong to any clubs o r organizations such as amish groups, unions, fraternal or athletic groups, or [...] Recorded Patient Health Questionnaire-2 Score 4 10/21/2023 [facility] Occupat ional Health - Occupational Stress [...] any time in the past 12 m [facility], were you homeless or living in a assisted (including now)? 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 file Not on file Not on file documented as of this encounter Plan of Treatment Not on file documented as of this encounter Visit Diagnoses Not on filedocumented in this encounter Additional Health Concerns Assessment Noted Time PHQ-9 Depression Total Score: 13 024 9:47 AM EST documented as of this encounter Care Teams Inverter And Clipper Relationship Specialty Start Date End Date Yovany Crawley MD [address] [place] [address] PCP - General Family Medicine 07/20/23 Yovany Crawley MD [address] [place] [address] PCP - [facility] 01/18/25 Raeann Ch NP [address] [place] [address] Nurse Practitioner Family Medicine 07/20/23 01/18/25 Ginny Cuello NP [address] [place] [address] Nurse Practitioner Family Medicine 01/19/25 Victorina Champion MA [address] [place] [address] Family Medicine 03/05/25 03/14/25 documented as of this encounter
--- OUTSIDE RECORDS SUMMARY | 2025-04-10 22:24 | XMS_ITS | Encounter Summary ---
Author Organization [facility] Address [address] [place] [address] Care Team Providers Care Costuming Supervisor Name Role Phone Yovany Crawley MD Primary Care Provider [phone] Raeann Ch NP Unavailable Ginny Cuello CLIP LOADING MACHINE FEEDER Unavailable Yovany Crawley MD Unavailable [phone] Victorina Champion MA Unavailable [phone] Encounter Details Date Type Department Care Team (Late st Contact Info) Description 06/19/2024 Abstract [facility] BCP OB [address] [place] [address] Jhonathan Pedraza, DO [address] [place] [address] Social History Tobacco Use Types Packs/Day [...] How often do you attend [facility] or rastafarian services? Never 03/30/2024 Do you belong to [...] Recorded Patient Health Questionnaire-2 Score 4 10/21/2023 [facility] Occupat ional Health - Occupational Stress [...] any time in the past 12 m [facility], were you homeless or living in a [place] [facility] [place] facility (including now)? 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 Not on file Not on file documented as of this encounter Plan of Treatment Not on file documented as of this encounter Visit Diagnoses Not on filedocumented in this encounter Additional Health Concerns Assessment Noted Time PHQ-9 Depression Total Score: 13 024 9:47 AM EST documented as of this encounter Care Teams Costuming Supervisor Relationship Specialty Start Date End Date Yovany Crawley MD [address] [place] [address] PCP - General Family Medicine 07/20/23 Yovany Crawley MD [address] [place] [address] PCP - [facility] 01/18/25 Raeann Ch NP [address] [place] [address] Nurse Practitioner Family Medicine 07/20/23 01/18/25 Ginny Cuello NP [address] [place] [address] Nurse Practitioner Family Medicine 01/19/25 Victorina Champion MA [address] [place] [address] Family Medicine 03/05/25 03/14/25 documented as of this encounter
--- OUTSIDE RECORDS SUMMARY | 2025-04-10 22:24 | XMS_ITS | Encounter Summary ---
Author Organization [facility] Address [address] [place] [address] Care Team Providers Care Manager Educational Name Role Phone Yovany Crawley MD Primary Care Provider [phone] Raeann Ch NP Unavailable Ginny Cuello CONSUMER SERVICES ADVISOR Unavailable Yovany Crawley MD Unavailable [phone] Victorina Champion MA Unavailable [phone] Encounter Details Date Type Department Care Team (Late st Contact Info) Description 04/03/2024 Orders Only [facility] [address] [place] [address] Christianne Long LPN [address] [place] [address] [place] [address] Social History Tobacco Use Types [...] week 03/30/2024 How often do you attend [facility] or presybeterian services? Never 03/30/2024 Do you belong to any clubs o r organizations such as druze groups, unions, fraternal or athletic groups, or [...] Recorded Patient Health Questionnaire-2 Score 4 10/21/2023 [facility] Occupat ional [facility] - Occupational Stress Questionnaire Answer Date [...] any time in the past 12 m [facility], were you homeless or living in a snf (including now)? 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 Not on file Not on file documented as of this encounter Plan of Treatment Not on file documented as of this encounter Procedures Procedure Name Priority Date/Time Associated Diagnosis Comments PAP SMEAR Routine 03/27/2024 12:00 AM EDT documented in this encounter Results * Pap Smear (03/27/2024 12:00 AM EDT) Swab Cervical swab / Unknown Keila Nurse [facility] LAB CYTOLOGY ORDERABLES Final Result EXTERNAL LAB documented in this encounter Visit Diagnoses Not on filedocumented in this encounter Additional Health Concerns Assessment Noted Time PHQ-9 Depression Total Score: 13 024 9:47 AM EST documented as of this encounter Care Teams Manager Educational Relationship Specialty Start Date End Date Yovany Crawley MD [address] [place] [address] PCP - General Family Medicine 07/20/23 Yovany Crawley MD [address] [place] [address] PCP - [employer] 01/18/25 Raeann Ch NP [address] [place] [address] Nurse Practitioner Family Medicine 07/20/23 01/18/25 Ginny Cuello NP [address] [place] [address] Nurse Practitioner Family Medicine 01/19/25 Victorina Champion, ALEX [address] [place] [address] Family Medicine 03/05/25 03/14/25 documented as of this encounter
--- OUTSIDE RECORDS SUMMARY | 2025-04-10 22:24 | XMS_ITS | Encounter Summary ---
Author Organization [facility] Address [address] [place] [address] Care Team Providers Care Manager International Name Role Phone Yovany Crawley MD Primary Care Provider [phone] Ginny Cuello SALES AND MARKETING SPECIALIST Unavailable [phone] Yovany Crawley MD Unavailable [phone] Encounter Details Date Type Department Care Team (Late st Contact Info) Description 04/10/2025 Bamboo flowsheet [facility] OB [address] [place] [id number] Jhonathan Pedraza, DO [address] [place], [facility] Social History Tobacco Use Types Packs/Day Years [...] 03/30/2024 How often do you attend chur or denominational services? Never 03/30/2024 Do you belong to [...] Recorded Patient Health Questionnaire-2 Score 0 01/16/2025 [facility] - Occupational Stress Questionnaire Answer Date [...] any time in the past 12 m [facility], were you homeless or living in a half-way (including now)? 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 Not on file Not on file documented as of this encounter Plan of Treatment Not on file documented as of this encounter Visit Diagnoses Not on filedocumented in this encounter Additional Health Concerns Assessment Noted Time PHQ-9 Depression Total Score: 13 024 9:47 AM EST documented as of this encounter Care Teams Manager International Relationship Specialty Start Date End Date Yovany Crawley MD [address] [place] [address] PCP - General Family Medicine 07/20/23 Yovany Crawley MD [address] [place] [address] PCP - [facility] 01/18/25 Ginny Cuello NP [address] [place] [address] Nurse Practitioner Family Medicine 01/19/25 documented as of this encounter
--- OUTSIDE RECORDS SUMMARY | 2025-04-10 22:24 | XMS_ITS | Encounter Summary ---
Author Organization [facility] Address [address] [place] [address] Care Team Providers Care Sand Plant Attendant Name Role Phone Yovany Crawley MD Primary Care Provider [phone] Ginny Cuello EXPERIMENTAL ASSEMBLER Unavailable [phone] Yovany Crawley MD Unavailable [phone] Victorina Champion MA Unavailable [phone] Encounter Details Date Type Department Care Team (Late st Contact Info) Description 01/24/2025 Abstract [facility] MAY [address] [place] [address] Ginny Cuello, EXPERIMENTAL ASSEMBLER [address] [place] [address] Social History Tobacco Use Types Packs/Day Years [...] week 03/30/2024 How often do you attend [facility] or mandaeism services? Never 03/30/2024 Do you belong to any clubs o r organizations such as judaism groups, unions, fraternal or athletic groups, or [...] Recorded Patient Health Questionnaire-2 Score 0 01/16/2025 [facility] Occupat ional [facility] - Occupational Stress [...] any time in the past 12 m [facility], were you homeless or living in a nursing home (including now)? 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 01/18/25 Ginny Cuello EXPERIMENTAL ASSEMBLER [address] [place] [address] Nurse Practitioner Family Medicine 01/19/25 Victorina Champion MA [address] [place] [address] Family Medicine 03/05/25 03/14/25 documented as of this encounter
--- OUTSIDE RECORDS SUMMARY | 2025-04-10 22:24 | XMS_ITS | Encounter Summary ---
Author Organization [facility] Address [address] [place] [address] Care Team Providers Care Bone Char Kiln Tender Name Role Phone Yovany Crawley MD Primary Care Provider [phone] Raeann Ch NP Unavailable Ginny Cuello SPACE CONTROL SUPERVISOR Unavailable [phone] Yovany Crawley MD Unavailable [phone] Victorina Champion MA Unavailable [phone] Encounter Details Date Type Department Care Team (Late st Contact Info) Description 07/20/2023 Abstract [facility] MAY [address] [place] [address] Yovany Crawley MD [address] [place], [place] [address] Social History Tobacco Use Types Packs/Day Years Used Date Smoking Tobacco: Every Day Cigarettes Passive Smoke Exposure: Never Smokeless Tobacco: Never Comments:Pt vapes Alcohol Use Standard Drinks/Week Comments Never 0 (1 standard drink = 0.6 oz pure alcohol) caffeine intake: 2-3 cups per day of soda/pop PHQ-2 Answer Date Recorded Patient Health Questionnaire-2 Score 0 07/20/2023 Comments No Sex and Gender Information Value Date Recorded Sex Assigned at Not on file Legal Sex Female 8:02 PM EDT Gender Identity Not on file Sexual Orientation Not on file 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 Question Answer Date of Assessment Author Little interest or pleasure in doing things Not at all 07/20/2023 8:57 AM Tana Prater MA Feeling down, depressed, or hopeless Not at all 07/20/2023 8:57 AM JULIETTET Tana Gutierrez MA Patient Health Questionnaire -2 Score 0 07/20/2023 8:57 AM EDT Tana Gutierrez MA documented as of this encounter Plan of Treatment Not on file documented as of this encounter Visit Diagnoses Not on filedocumented in this encounter Care Teams Bone Char Kiln Tender Relationship Specialty Start Date End Date Yovany Crawley MD [address] [place] [address] PCP - General Family Medicine 07/20/23 Yovany Crawley MD [address] [place] [address] PCP - [facility] 01/18/25 Raeann Ch NP [address] [place] [address] Nurse Practitioner Family Medicine 07/20/23 01/18/25 Ginny Cuello NP [address] [place] [address] Nurse Practitioner Family Medicine 01/19/25 Victorina Champion MA [address] [place] [address] Family Medicine 03/05/25 03/14/25 documented as of this encounter
--- OUTSIDE RECORDS SUMMARY | 2025-04-10 22:24 | XMS_ITS | Clinical Summary ---
Author Organization [facility] Address [id number] [address] [place] [address] Care Team Providers Care Developer Trading Systems Name Role Phone Unavailable Primary Care Provider Unavailabl e Social History Tobacco Use Types Packs/Day Years Used Date Smoking Tobacco: Never Assessed Childcare Answer Date Recorded Childcare Unknown 03/01/2019 Employment Answer Date Recorded Employment Unknown 03/01/2019 Comments Unknown Sex and Gender Information Value Date Recorded Sex Assigned at Not on file Legal Sex Female 4:26 PM EDT Gender Identity Not on file Sexual Orientation Not on file Plan of Treatment Not on file Medical Devices Not on file
--- OUTSIDE RECORDS SUMMARY | 2025-04-10 22:24 | XMS_ITS | Encounter Summary ---
Author Organization [facility] Address [address] [place] [address] Care Team Providers Care Progressive Care Nurse Name Role Phone Kirstin Turpin MD Primary Care Provider [phone] Yovany Crawley MD Primary Care Provider Raeann Ch NP Unavailable Ginny Cuello CASING TIER Unavailable Yovany Crawley MD Unavailable [phone] Victorina Champion MA Unavailable [phone] Encounter Details Date Type Department Care Team (Late st Contact Info) Description 06/21/2023 Clinisync Result Encounter [facility] External Department Unsolicited Tessa Pedraza, DO [address] [place] [address] Social History Tobacco Use Types Packs/Day Years Used Date Smoking Tobacco: Every Day Cigarettes Passive Smoke Exposure: Never Smokeless Tobacco: Never Alcohol Use Standard Drinks/Week Comments Never 0 (1 standard drink = 0.6 oz pur e alcohol) Comments Yes Sex and Gender Information Value Date Recorded Sex Assigned at Not on file Legal Sex Female 8:02 PM EDT Gender Identity Not on file Sexual Orientation Not on file documented as of this encounter Plan of Treatment Not on file documented as of this encounter Procedures Procedure Name Priority Date/Time Associated Diagnosis Comments US PELVIS TRANSVAGINAL 06/21/2023 5:44 PM EDT documented in this encounter Results * US PELVIS TRANSVAGINAL (06/21/2023 5:44 PM EDT) Anatomical Region Laterality Modality Other 06/21/2023 5:44 PM EDT Narrative 06/21/2023 5:44 [place] [address] Ultrasound Report Signed Patient: LE ROCHA MR#: [id number] : 2000 Acct:[id number] Age/Sex: 23 / F ADM Date: 06/21/23 Loc: LAB Attending Dr: Tessa Pedraza D.O. Ordering Physician: Tessa Pedraza D.O. Date of Service: 06/21/23 Procedure(s): US pelvis transvaginal Accession Number(s): [id number] cc: FAMILY,HEALTH SER ; Tessa Pedraza D.O. [place] [address] Patient Name: LE ROCHA MRN: [id number] date: 2000 Sex: F Assigned Patient Location: LAB Current Patient Location: LAB Accession/Order Number: [id number] Exam Date: 06/21/2023 12:50 Report Date: 06/21/2023 17:44 At the request of: TESSA PEDRAZA Procedure: US pelvis transvaginal EXAMINATION: US pelvis transvaginal HISTORY: Miscarriage O03.9 COMPARISON: No relevant comparison available. FINDINGS: The uterus is normal in size, contour and echotexture measuring 8.0 x 4.1 x 4.3 cm. Anteverted. The endometrium measures 13.7 mm, correlate with the menstrual cycle. Peripheral hyperechogenicity within the endometrial cavity with central hypoechogenicity. No significant vascularity within the endometrial cavity The right ovary is normal measuring 2.1 x 1.3 x 2.2 cm. Normal color and Doppler flow. Left ovary measures 3.6 x 3.8 x 3.4 cm. Area of anechoic echogenicity measuring 4.1 x 3.6 x 3.6 cm with some low-level echoes. Complex cyst is favored Small amount of free pelvic fluid within physiologic in amount US/US pelvis transvaginal IMPRESSION: Prominent endometrial cavity without vascularity, I favor blood products with no definite retained products of conception 4.1 cm cystic lesion of the left ovary, possibly a corpus luteal cyst Electronically authenticated by: KIRSTIN BOJORQUEZ Date: 06/21/2023 17:44 Dictated By: Kirstin Bojorquez M.D. Signed By: 06/21/231746 DD/ 43 TD/TT: Creative Services Designer: Procedure Note Radiology, Radiologist, MD - 06/21/2023 [place] [address] Ultrasound Report Signed Patient: LE ROCHA LMR#: [id number] : 2000Acct:[id number] Age/Sex: 23 / FADM Date: 06/21/23 Loc: LAB Attending Dr: Tessa Pedraza D.O. Ordering Physician: Tessa Pedraza D.O. Date of Service: 06/21/23 Procedure(s): US pelvis transvaginal Accession Number(s): [id number] cc: FAMILY,HEALTH SER ; Tessa Pedraza D.O. The [address] [address] Patient Name: LE ROCHA MRN: [id number] date: 2000 Sex: F Assigned Patient Location: LAB Current Patient Location: LAB Accession/Order Number: [id number] Exam Date: 06/21/2023 12:50 Report Date: 06/21/2023 17:44 At the request of: TESSA PEDRAZA Procedure: US pelvis transvaginal EXAMINATION: US pelvis transvaginal HISTORY: Miscarriage O03.9 COMPARISON: No relevant comparison available. FINDINGS: The uterus is normal in size, contour and echotexture measuring 8.0 x 4.1x 4.3 cm. Anteverted. The endometrium measures 13.7 mm, correlate with the menstrual cycle. Peripheral hyperechogenicity within the endometrial cavity with central hypoechogenicity. No significant vascularity within the endometrial cavity The right ovary is normal measuring 2.1 x 1.3 x 2.2 cm. Normal color and Doppler flow. Left ovary measures 3.6 x 3.8 x 3.4 cm. Area of anechoic echogenicity measuring 4.1 x 3.6 x 3.6 cm with some low-level echoes. Complex cyst is favored Small amount of free pelvic fluid within physiologic in amount US/US pelvis transvaginal IMPRESSION: Prominent endometrial cavity without vascularity, I favor blood productswith no definite retained products of conception 4.1 cm cystic lesion of the left ovary, possibly a corpus luteal cyst Electronically authenticated by: KIRSTIN BOJORQUEZ Date: 06/21/2023 17:44 Dictated By: Kirstin Bojorquez M.D. Signed By:06/21/231746 DD/ 43 TD/TT: Creative Services Designer: us Tessa Keila DO [facility] Final Result documented in this encounter Visit Diagnoses Not on filedocumented in this encounter Care Teams Progressive Care Nurse Relationship Specialty Start Date End Date Kirstin Turpin MD [address] [place] [address] [place] [address] PCP - General Family Medicine 03/30/23 07/19/23 Yovany Crawley MD [address] [place] [address] PCP - General Family Medicine 07/20/23 Yovany Crawley MD [address] [place] [address] PCP - [facility] 01/18/25 Raeann Ch NP [address] [place] [address] Nurse Practitioner Family Medicine 07/20/23 01/18/25 Ginny Cuello NP [address] [place] [address] Nurse Practitioner Family Medicine 01/19/25 Victorina Champion, ALEX [address] [place] [address] Family Medicine 03/05/25 03/14/25 documented as of this encounter
--- OUTSIDE RECORDS SUMMARY | 2025-04-10 22:24 | XMS_ITS | Encounter Summary ---
Author Organization [facility] Address [address] [place] [address] Care Team Providers Care Assistant Director Of Public Works Name Role Phone Yovany Crawley MD Primary Care Provider [phone] Ginny Cuello CATERING AND EVENTS MANAGER Unavailable [phone] Yovany Crawley MD Unavailable [phone] Encounter Details Date Type Department Care Team (Late st Contact Info) Description 04/03/2025 Patient Outreach [facility] POP[facility]ATION [facility] [address] [place] [address] Sayda Ocoha LSW [address] [place] [address] Social History Tobacco Use Types Packs/Day Years [...] How often do you attend chur or nondenominational services? Never 03/30/2024 Do you belong to any clubs o r organizations such as oriental orthodox groups, unions, fraternal or athletic groups, or [...] Recorded Patient Health Questionnaire-2 Score 0 01/16/2025 [facility] Questionnaire Answer [...] any time in the past 12 m [facility], were you homeless or living in a snf (including now)? 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 [facility] notified that pt in [facility] ER 04/01 for ankle pain after tripping over dog. Xray completed and pt was given air cast and crutches. Pt given dx of ankle sprain and rx cfor Naproxen. <April 03, 2025, 09:44 - FAISAL Castro> Attempted to contact pt x 2 for ER TCM. No answer; LM. Partial TCM completed due to unable to reachpt. Flowsheet Row Patient Outreach from 04/03/2025 in [facility] with FAISAL Castro Hospital Information ED, Hospital or Fci Facility Discharge? ED Patient has been contacted within 2 days of being seen in the ED No Have two attempts been made, within 2 days of being seen in the ED, to contact the patient? Yes Diagnosis ankle sprain Discharge Date 04/01/25 Discharged To: Home Setting Discharge [facility] Engagement Call Start Time 914 Admission Date 04/01/25 Medications Discharge medications reviewed and reconciled from hospital? Not applicable [Unable to reach pt to verify] Appointments Self Management Patient Teaching Wrap Up Wrap Up Additional Comments [facility] notified that pt in [facility] ER 04/01 for ankle pain after tripping overdog. Xray completed and pt was given air cast and crutches. Pt given dx of ankle sprain and rx cforNaproxen. Attempted to contact pt x 2 for ER TCM. No answer, LM. Partial TCM completed due to unable to reach pt. Call End Time 939 documented in this encounter Plan of Treatment Not on file documented as of this encounter Visit Diagnoses Diagnosis Chronic fatigue- Primary Other malaise and fatigue Mixed anxiety and depressive disorder Dysthymic disorder documented in this encounter Additional Health Concerns Assessment Noted Time PHQ-9 Depression Total Score: 13 024 9:47 AM EST documented as of this encounter Care Teams Assistant Director Of Public Works Relationship Specialty Start Date End Date Yovany Crawley MD [address] [place] [address] PCP - General Family Medicine 07/20/23 Yovany Crawley MD [address] [place] [address] PCP - [facility] 01/18/25 Ginny Cuello CATERING AND EVENTS MANAGER [address] [place] [address] Nurse Practitioner Family Medicine 01/19/25 documented as of this encounter
--- OUTSIDE RECORDS SUMMARY | 2025-04-10 22:24 | XMS_ITS | Encounter Summary ---
Author Organization [facility] Address [address] [place] [address] Care Team Providers Care Angle Roll Operator Name Role Phone Yovany Crawley MD Primary Care Provider [phone] Raeann Ch NP Unavailable Ginny Cuello PLEATING MACHINE OPERATOR Unavailable Yovany Crawley MD Unavailable [phone] Victorina Champion MA Unavailable [phone] Encounter Details Date Type Department Care Team (Late st Contact Info) Description 08/30/2024 Abstract [facility] BCP OB [address] [place] [address] Jhonathan Pedraza, DO [address] [place] [address] Social History Tobacco Use Types Packs/Day [...] week 03/30/2024 How often do you attend [facility] or pentecostalism services? Never 03/30/2024 Do you belong to any clubs o r organizations such as jewish groups, unions, fraternal or athletic groups, or [...] Recorded Patient Health Questionnaire-2 Score 4 10/21/2023 [facility] Occupat ional Health - Occupational Stress [...] any time in the past 12 m [facility], were you homeless or living in a penitentiary (including now)? 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 Not on file Not on file documented as of this encounter Plan of Treatment Not on file documented as of this encounter Visit Diagnoses Not on filedocumented in this encounter Additional Health Concerns Assessment Noted Time PHQ-9 Depression Total Score: 13 024 9:47 AM EST documented as of this encounter Care Teams Angle Roll Operator Relationship Specialty Start Date End Date Yovany Crawley MD [address] [place] [address] PCP - General Family Medicine 07/20/23 Yovany Crawley MD [address] [place] [address] PCP - [facility] 01/18/25 Raeann Ch NP [address] [place] [address] Nurse Practitioner Family Medicine 07/20/23 01/18/25 Ginny Cuello NP [address] [place] [address] Nurse Practitioner Family Medicine 01/19/25 Victorina Champion MA [address] [place] [address] Family Medicine 03/05/25 03/14/25 documented as of this encounter
--- OUTSIDE RECORDS SUMMARY | 2025-04-10 22:24 | XMS_ITS | Encounter Summary ---
Author Organization [facility] Address [address] [facility] [place] [address] Care Team Providers Care Vest Busheler Name Role Phone Yovany Crawley MD Primary Care Provider [phone] Raeann Ch NP Unavailable Ginny Cuello SILK SPREADER Unavailable [phone] Yovany Crawley MD Unavailable [phone] Victorina Champion MA Unavailable [phone] Encounter Details Date Type Department Care Team (Late st Contact Info) Description 05/24/2024 Abstract [facility] [address] [facility] [address] [place] [id number] Andrzej Grace, DO [address] [facility] [address] [place] [address] Social History Tobacco Use Types Packs/Day Years [...] week 03/30/2024 How often do you attend [facility] or baptism services? Never 03/30/2024 Do you belong to any clubs o r organizations such as confucianism groups, unions, fraternal or athletic groups, or [...] Recorded Patient Health Questionnaire-2 Score 4 10/21/2023 [facility] - [...] any time in the past 12 m [facility], were you homeless or living in a prison (including now)? 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 Job End Date [employer], 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 Not on file Not on file Not on file documented as of this encounter Plan of Treatment Not on file documented as of this encounter Visit Diagnoses Not on filedocumented in this encounter Additional Health Concerns Assessment Noted Time PHQ-9 Depression Total Score: 13 024 9:47 AM EST documented as of this encounter Care Teams Vest Busheler Relationship Specialty Start Date End Date Yovany Crawley MD [address] [place] [address] PCP - General Family Medicine 07/20/23 Yovany Crawley MD [address] [place] [address] PCP - [facility] 01/18/25 Raeann Ch NP [address] [place] [address] Nurse Practitioner Family Medicine 07/20/23 01/18/25 Ginny Cuello NP [address] [place] [address] Nurse Practitioner Family Medicine 01/19/25 Victorina Champion MA [address] [place] [address] Family Medicine 03/05/25 03/14/25 documented as of this encounter
--- OUTSIDE RECORDS SUMMARY | 2025-04-10 22:24 | XMS_ITS | Encounter Summary ---
Author Organization [facility] Address [address] [place] [address] Care Team Providers Care Motorcycle Riding Instructor Name Role Phone Lorenzo Turpin MD Primary Care Provider [phone] Yovany Crawley MD Primary Care Provider Raeann Ch BATTERY BUILDER Unavailable Ginny Cuello BATTERY BUILDER Unavailable [phone] Yovany Crawley MD Unavailable [phone] Victorina Champion MA Unavailable [phone] Encounter Details Date Type Department Care Team (Late st Contact Info) Description 04/22/2023 Abstract [facility] [address] [place] [address] Jhonathan Pedraza, DO [address] [place] [address] Social History Tobacco Use Types Packs/Day Years Used Date Smoking Tobacco: Never Passive Smoke Exposure: Never Smokeless Tobacco: Never Alcohol Use Standard Drinks/Week Comments Never 0 (1 standard drink = 0.6 oz pur e alcohol) Comments No Sex and Gender Information Value Date Recorded Sex Assigned at Not on file Legal Sex Female 8:02 PM EDT Gender Identity Not on file Sexual Orientation Not on file documented as of this encounter Plan of Treatment Not on file documented as of this encounter Visit Diagnoses Not on filedocumented in this encounter Care Teams Motorcycle Riding Instructor Relationship Specialty Start Date End Date Lorenzo Turpin MD [address] [place] [address] [place] [address] PCP - General Family Medicine 03/30/23 07/19/23 Yovany Crawley MD [address] [place] [address] PCP - General Family Medicine 07/20/23 Yovany Crawley MD [address] [place] [address] PCP - [facility] 01/18/25 Raeann Ch NP [address] [place] [address] Nurse Practitioner Family Medicine 07/20/23 01/18/25 Ginny Cuello NP [address] [place] [address] Nurse Practitioner Family Medicine 01/19/25 Victorina Champion MA [address] [place] [address] Family Medicine 03/05/25 03/14/25 documented as of this encounter
--- OUTSIDE RECORDS SUMMARY | 2025-04-10 22:25 | XMS_ITS | CCD ---
Author Organization [facility] Care Team Providers Care Teletype Adjuster Name Role Phone Kirstin Hernandez Unavailable David, DO [place] Primary Care Provider [phone] DO Donavon Yanes Attending Provider David, DO [place] Primary Care Provider [phone] Joaquín, DO Donavon Brian Attending Provider David, DO [place] Primary Care Provider Joaquín, DO Donavon Brian Attending Provider UNA Childs Attending Pr ovider [facility] Primary Care Provider David, DO [place] Primary Care Provider David, DO [place] Primary Care Provider [phone] UNA Childs Attending Pr ovider [facility] Primary Care Provider [phone] UNA Childs Attending Pr ovider [facility] Primary Care Provider DR JHONATHAN MONTIEL Attending Unavailable DAVID, DR FULTON Primary Care [...] Unavailable KEILA ., DR ZARATE Attending Unavailable [facility] Primary [facility] UNA Childs Attending Pr ovider ARLEN JangC Raeann Attending Provider [phone] [facility] Primary Care [facility] ider UNA Childs Attending Pr ovider ARLEN JangC Raeann Attending Provider JEAN CLAUDE Jang-C Raeann Primary Care Provider Yovany Crawley MD Primary Care Provider [phone] Laine PRESCRIPTIONIST, Raeann Unavailable Laine PRESCRIPTIONIST-C Raeann Primary Care Provider [phone] HEIDI Quach Attending Provider [phone] Clarisa MIKE Attending Unavailable DO Andrzej Grace Attending Provider Raeann Jang Primary Care Unavailable UNA Templeton Attending Unavailable UNA Templeton Admitting Unavailable Armstrong, Tyler L Admitting Unavailable Armstrong, Tyler L Primary Care Unavailable Armstrong Tyler L Attending Unavailable Ginny Quach Attending Unavailable Ginny Quach Admitting Unavailable Warchol, Raeann Primary Care Unavailable Visci, Andrzej Admitting Unavailable Warchol, Raeann Primary Care Unavailable Visci, Andrzej Attending Unavailable MARU, RAEANN Attending Unavailable WARCHOL, RAEANN Attending Unavailable KEILA, JHONATHAN Attending Unavailable GUILLAUME CONTI Attending Unavailable PHILOMENA, GINNY Ansari Attending Unavailable KEILA, JHONATHAN Attending Unavailable JENNIFERUSE, GINNY R Attending Unavailable ROSELYN CHAUHAN Attending Unavailable KEILA, JHONATHAN Attending Unavailable MARU, RAEANN Attending Unavailable MARU, RAEANN Attending Unavailable KEILA, JHONATHAN Attending Unavailable MARU, RAEANN Attending Unavailable KEILA, JHONATHAN Attending Unavailable KEILA, JHONATHAN Attending Unavailable LAINE, RAEANN Attending Unavailable Ginny Quach Primary Care Physician Unavailab Samuel Salmeron Attending Unavailable Samuel Rey Admitting Unavailable MD Samuel Rey Attending Unavailable MD Samuel Rey Admitting Unavailable Navid Mahan Attending Unavailable Brooke Donato Referring Unavailable MD Samuel Rey Admitting Unavailable MD Samuel Rey Attending Unavailable Samuel Rey Admitting Unavailable Samuel Rey Attending Unavailable Sharmaine Jamil Attending Unavailable Ginny Quach NP Unavailable [phone] Yovany Crawley MD Unavailable [phone] Allergies Allergy Classification Reported Allergen(s) Allergy Type Date of Onset Reaction(s) Facility (10 sources) Citalopram Drug Allergy headaches, upset [facility] Other (1 source) Citalopram Drug Allergy 3 [facility] Repository Medications Current Medications Medication Drug Class(es) Dates Sig (Normalized) Sig (Original) acetaminophen 325 mg oral tablet (2 sources) Start: 01-20-2025 End: 02-03-2025 take 2 tablets by mouth every six hours acetaminophen 325 mg Tab 650 mg = 2 tab(s), Oral, q6hr, X 14 day(s), # 112 tab(s), Refills(s) 0, Pharmacy: [id number], 175.3, cm, 01/19/25 18:10:00 EDT, Height/Length Dosing, 62.3, kg, 01/19/25 18:10:00 EDT, Weight Dosing Start Date: 01/20/25 Stop Date: 02/03/25 Status: Ordered Quantity: 112.0 Unit: tab(s) Repeat number: 1 [id number] 200 actuat albuterol 0.09 mg/actuat metered dose [...] Aug, Active Biotin (6 sources) Biotin Active cephalexin 500 mg oral capsule (9 sources) Cephalosporin Antibacterial Start: take 1 capsule by mouth in the morning, then take 1 capsule by mouth in the evening, then take 1 capsule by mouth at bedtime cephalexin (Keflex) 500 MG capsule Take 500 mg by mouth in the morning and 500 mg in the evening and 500 mg before bedtime. 01/12/2025 Active Start: 01-02-2022 take 1 capsule by [facility] every eight hours Cephalexin 500 MG 1 capsule Orally tid for 7 days Dec, Not-Taking docusate sodium 100 mg oral capsule (20 sources) Start: 01-02-2022 take 1 capsule by [facility] every twenty-four hours Colace 100 MG 1 capsule Orally Once a day Dec, Active End: 10-11-2024 Docusate Sodium (COLACE PO) Take by mouth 10/11/2024 Discontinued (Other) Docusate Sodium (COLACE PO) Take by mouth [...] Orally q8-12 hrs prn anxiety Aug, Active ibuprofen 600 mg oral tablet (2 sources) Nonsteroidal Anti-inflammatory Drug Start: 01-20-2025 take 1 tablet by mouth every six hours ibuprofen 600 mg Tab 600 mg = 1 tab(s), Oral, q6hr, # 40 tab(s), Refills(s) 0, Pharmacy: [id number], 175.3, cm, 01/19/25 18:10:00 EDT, Height/Length Dosing, 62.3, kg, 01/19/25 18:10:00 EDT, Weight Dosing Start Date: 01/20/25 Status: Ordered Quantity: 40.0 Unit: tab(s) Repeat number: 1 Levonorgestrel-Eth Estradiol (Twirla) 120-30 MCG/24HR patch weekly (8 sources) Start: 10-11-2024 End: 01-16-2025 apply 1 dose transdermal route every week Levonorgestrel-Et h Estradiol (Twirla) 120-30 MCG/24HR patch weekly Indications: control counseling Place 1 patch on the skin 1 (one) time per week 4 patch 11 10/11/2024 01/16/2025 Discontinued (Therapy completed) Start: 10-11-2024 End: 10-11-2025 apply 1 dose transdermal route every week Levonorgestrel-Eth Estradiol (Twirla) 120-30 MCG/24HR patch weekly Indications: control counseling Place 1 patch on the skin 1 (one) time per week 4 patch 11 10/11/2024 10/11/2025 Active lisdexamfetamine dimesylate 30 mg oral capsule (13 sources) Central Nervous System Stimulant Start: 01-16-2025 End: 02-15-2025 take 1 capsule by mouth once daily lisdexamfetamine (Vyvanse) 30 MG capsule Indications: Attention deficit hyperactivity disorder (ADHD), combined type Take 1 capsule (30 mg) by mouth Daily 30 capsule 01/16/2025 Active Start: 03-09-2023 End: 01-12-2025 take 1 capsule by mouth once daily Lisdexamfetamine (Vyvanse) 30 mg Capsule Discontinued 30 MG PO Daily March 09, 2023 12:00am January 12, 2025 6:17pm metoclopramide 10 mg oral tablet (12 sources) [...] 1 tablet Orally Once a day Active 24 hr nicotine 0.875 mg/hr transdermal system (9 sources) Cholinergic Nicotinic Agonist Start: 01-16-2025 End: 02-15-2025 apply 1 dose transdermal route every twenty-four hours nicotine (Nicoderm CQ) 14 MG/24HR patch Indications: Cigarette nicotine dependence without complication Place 1 patch over 24 hours on the skin 1 (one) time each day at the same time Do not fill until 02/14/25 30 patch 01/16/2025 Active Start: 01-16-2025 End: 03-17-2025 apply 1 dose transdermal route every twenty-four hours nicotine (Nicoderm CQ) 21 MG/24HR patch Indications: Cigarette nicotine dependence without complication Place 1 patch over 24 hours on the skin 1 (one) time each day at the same time 30 patch 1 01/16/2025 Active Start: 01-16-2025 End: 02-15-2025 nicotine (Nicoderm CQ) 7 MG/ 24HR patch Indications: Cigarette nicotine dependence without complication Place 1 patch over 24 hours on the skin 1 (one) time each day at the same time Do not fill until 03/16/25 30 patch 01/16/2025 Active nitrofurantoin, macrocrystals 25 mg / nitrofurantoin, monohydrate 75 mg oral capsule (4 sources) Nitrofuran Antibacterial Start: 05-18-2024 End: 05-26-2024 take 1 capsule by mouth in the morning nitrofurantoin, macrocrystal-monohydrate, (Macrobid) 100 MG capsule Indications: UTI symptoms Take 1 capsule (100 mg) by mouth in the morning and 1 capsule (100 mg) before bedtime. Do all this for 7 days. 14 capsule 05/18/2024 05/26/2024 Discontinued omeprazole 20 mg delayed release oral capsule [...] at the same time 0 09/15/2022 Active oxyCODONE hydrochloride 5 mg oral tablet (2 sources) Opioid Agonist Start: 01-20-2025 take 1 tablet by mouth every six hours as needed for pain oxyCODONE 5 mg Tab 5 mg = 1 tab(s), Oral, q6hr, PRN for pain, # 7 tab(s), Refills(s) 0, Pharmacy: [id number], 175.3, cm, 01/19/25 18:10:00 EDT, Height/Length Dosing, 62.3, kg, 01/19/25 18:10:00 EDT, Weight Dosing Start Date: 01/20/25 Status: Ordered Quantity: 7.0 Unit: tab(s) Repeat number: 1 polysaccharide iron complex 391 mg oral capsule (10 sources) Start: 08-03-2024 End: 09-02-2024 take 1 capsule by mouth once daily iron polysaccharides (ProFe) 391.3 (180 Fe) MG capsule Indications: Other iron deficiency anemia Take 1 capsule (391.3 mg) by mouth Daily 30 capsule 6 08/03/2024 09/02/2024 Active Vit w/Yg-Spuewohtx-AM (PNV PO) (20 sources) Vit w/Tq-Ayrjojeuk-KP (PNV PO) Take by mouth Active Completed/Discontinued Medications Medication Drug Class(es) Dates Sig (Normalized) Sig (Original) azithromycin 250 mg oral tablet (8 sources) Macrolide Antimicrobial Start: 09-19-2024 End: 01-12-2025 Azithromycin (Zithromax Z-Rikki) 250 mg tablet Discontinued 0 PO .COMPLEX 6 5 September 19, 2024 1:00am January 12, 2025 6:17pm For 250 mg dose pack: take 500 mg today (day 1), then 250 mg for 4 days (days 2-5) PO Start: 12-08-2021 Zithromax Z-Pa k 250 MG 2 tablet on the first day, then 1 tablet daily for 4 days Orally Once a day for 5 day(s) Nov, Not-Taking cefTRIAXone (8 sources) Cephalosporin Antibacterial Start: 11-09-2014 Rocephin 500 mg Oct, 1 grm escitalopram 10 mg oral tablet (2 sources) Serotonin Reuptake Inhibitor Start: 07-20-2023 End: 10-21-2023 take 1 tablet by mouth at bedtime escitalopram (Lexapro) 10 MG tablet Indications: DORIAN (generalized anxiety disorder) ([facility]) Take 1 tablet (10 mg) by mouth [...] Classification Problem Date Documented Da te Episodic/Chronic Adjustment disorders (10 sources) Reaction to severe stress, unspecified; Translations: [Stress] Chronic Administrative/social admission (2 sources) Patient encounter status; Translations: [Person consulting for explanation of examination or test findings] 10-19-2024 Episodic Anxiety disorders (20 sources) Anxiety disorder, unspecified; Translations: [Anxiety] Onset: 1 Resolved: 1 Chronic Appendicitis and other appendiceal conditions (5 sources) Unspecified acute appendicitis; Translations: [K35.80] Onset: 5 Episodic Asthma (20 sources) Uncomplicated mild persistent asthma; Translations: [Mild persistent asthma, uncomplicated] Onset: 3 07-19-2023 Chronic Attention-deficit, conduct, and disruptive behavior disorders (20 sources) Attention deficit hyperactivity disorder; Translations: [Attention-deficit hyperactivity disorder, unspecified type] Onset: 3 Resolved: 3 10-21-2023 Chronic Attention-deficit, conduct, and disruptive behavior disorders (7 sources) Attention-deficit hyperactivity disorder, unspecified type; Translations: [ADHD (attention deficit hyperactivity disorder) F90.9] Onset: 1 Resolved: 2 Chronic Attention-deficit, conduct, and disruptive behavior disorders (2 sources) Attention deficit hyperactivity disorder, combined type; Translations: [Attention-deficit hyperactivity disorder, combined type] 01-16-2025 Chronic Deficiency and other anemia (2 sources) Iron deficiency anemia; Translations: [Other iron deficiency anemias] 08-03-2024 Episodic Headache; including migraine (10 sources) Migraine; Translations: [Migraine, unspecified, not intractable, without status migrainosus] Chronic Malaise and fatigue (20 sources) Fatigue; Translations: [Chronic fatigue, unspecified] Onset: 3 07-20-2023 Chronic Malaise and fatigue (4 sources) Other fatigue; Translations: [Weakness] Onset: 2 Resolved: 2 Episodic Mood disorders (20 sources) Affective psychosis; Translations: [Unspecified mood [affective] disorder] Onset: 3 Resolved: 3 07-19-2023 Chronic Nausea and vomiting (3 sources) Vomiting, unspecified; Translations: [Nausea] Onset: 2 Resolved: 2 Episodic Nutritional deficiencies (2 sources) Vitamin D deficiency; Translations: [Vitamin D deficiency, unspecified] 01-16-2025 Chronic Other circulatory disease (2 sources) Nasal discharge; Translations: [Other specified symptoms and signs involving the circulatory and respiratory systems] 11-03-2024 Episodic Other complications of (2 sources) Gastroesophageal reflux disease in ; Translations: [Diseases of the digestive system complicating , unspecified trimester] 07-04-2024 Episodic Other complications of (2 sources) size does not accord with dates; Translations: [Uterine size-date discrepancy, unspecified trimester] 06-19-2024 Episodic Other complications of (1 source) Abdominal pain in ; Translations: [Other specified related conditions, second trimester] 05-23-2024 Episodic Other ear and sense organ disorders (2 sources) Impacted cerumen of bilateral ears; Translations: [Impacted cerumen, bilateral] 10-21-2023 Episodic Other endocrine disorders (10 sources) Polycystic ovaries; Translations: [Polycystic ovarian syndrome] Chronic Other endocrine disorders (6 sources) Polycystic ovarian syndrome; Translations: [POLYCYSTIC OVARIAN SYNDROME] Onset: 2 Resolved: 2 Chronic Other endocrine disorders (20 sources) Hypoglycemia; Translations: [Hypoglycemia, unspecified] Onset: 3 07-19-2023 Chronic Other endocrine disorders (1 source) Polycystic ovary syndrome; Translations: [Polycystic ovarian syndrome] 05-23-2024 Chronic Other female genital disorders (3 sources) [...] skin] Episodic Other and delivery including normal (16 sources) Third trimester ; Translations: [Encounter for supervision of normal , unspecified, third trimester] 07-04-2024 Episodic Other screening for suspected conditions (not mental disorders or infectious disease) (13 sources) Encounter for screening for malignant neoplasm of cervix; Translations: [Patient encounter status] Onset: 2 Episodic Other upper respiratory infections (2 sources) Viral upper respiratory tract infection; Translations: [Acute upper respiratory infection, unspecified] 11-11-2024 Episodic Residual codes; unclassified (10 sources) Insomnia; Translations: [Insomnia, unspecified] Episodic Residual codes; unclassified (10 sources) Difficulty sleeping ; Translations: [Sleep disorder, unspecified] Episodic Residual codes; unclassified (2 sources) Gestation [...] [36 weeks gestation of ] 08-16-2024 Episodic Residual codes; unclassified (2 sources) Gestation period, 37 weeks; Translations: [37 weeks gestation of ] 08-22-2024 Episodic Residual codes; unclassified (2 sources) Gestation period, 38 weeks; Translations: [38 weeks gestation of ] 08-30-2024 Episodic Residual codes; unclassified (3 sources) Gestation period, 24 weeks; Translations: [24 weeks gestation of ] 05-25-2024 Episodic Residual codes; unclassified (2 sources) Gestation period, 27 weeks; Translations: [27 weeks gestation of ] 06-19-2024 Episodic Substance-related disorders (2 sources) Tobacco dependence caused by cigarettes; Translations: [Nicotine dependence, cigarettes, uncomplicated] 01-16-2025 Chronic Unclassified (1 source) Acute cough; Translations: [Acute cough] Onset: Past or Other Problems Problem Classification Problem Date Documented Da te Episodic/Chronic Abdominal pain (7 sources) Unspecified abdominal pain; Translations: [Pelvic and perineal pain] Onset: 01-02-2022 Resolved: 01-02-2022 Episodic Deficiency and other anemia (1 source) Anemia, unspecified Onset: 09-03-2021 Resolved: 09-03-2021 Episodic Immunizations and screening for infectious disease (1 source) Encounter for screening for human papillomavirus (HPV); Translations: [ENC SCREENING HUMAN PAPILLOMAVIRUS] Onset: 03-19-2022 Episodic Menstrual disorders (20 sources) Missed period; Translations: [Irregular menstruation, unspecified] Onset: 07-20-2023 Resolved: 08-27-2023 08-27-2023 Chronic Mood disorders (20 sources) Mood disorders Onset: 10-21-2023 10-21-2023 Nonspecific chest pain (2 sources) Chest pain, unspecified Onset: 03-10-2022 Resolved: 04-10-2022 Episodic Other aftercare (2 sources) Other fdc (current) drug therapy Onset: 09-03-2021 Resolved: 01-02-2022 Episodic Other complications of (1 source) Other specified related conditions, second trimester; Translations: [Other specified related conditions, second trimester] Onset: 05-23-2024 Episodic Other gastrointestinal disorders (2 sources) Constipation, unspecified Onset: 01-02-2022 Resolved: 04-10-2022 Episodic Other gastrointestinal disorders (1 source) Change in bowel habit Onset: 01-02-2022 Resolved: 01-02-2022 Episodic Other nervous system disorders (1 source) Paresthesia of skin Onset: 01-02-2022 Resolved: 01-02-2022 Episodic Other upper respiratory disease (1 source) Nasal congestion; Translations: [Nasal congestion] Onset: 03-30-2024 Episodic Residual codes; unclassified (1 source) 24 weeks gestation of ; Translations: [24 weeks gestation of ] Onset: 05-23-2024 Episodic Spondylosis; intervertebral disc disorders; other back problems (1 source) Dorsalgia, unspecified Onset: 01-02-2022 Resolved: 01-02-2022 Episodic Spontaneous (1 source) Complete or unspecified spontaneous without complication; Translations: [COMPLETE/UNS SPONT AB W/O COMP] Onset: 09-29-2022 Episodic Results Test Name Value Interpretation Reference Range Facility ED Clinical Summaryon 2024 ED Clinical Summary ED Clinical Summary [place] [address] ED Clinical Summary Person Information Name: LE RCOHA Lisa/[facility] Age: 24 Years : 2000 Sex: Female Language: Latvian PCP: Ginny Quach Marital Status: Single Phone: [phone] Visit Id: Visit Reason: Ankle injury - Minor; Ankle pain-swelling; FALL, RIGHT FOOT PAIN-SWELLING Speciality: Acuity: 4 Enc Type: Emergency Med Service: Emergency Arrival: 04/01/2025 22:26:25 Discharge: 04/02/2025 00:49:31 LOS: 000 02:23 Checkin: 04/01/2025 22:26:25 Checkout: 04/02/2025 00:49:31 Dispo Type: Home (Routine DC) EVENTS: Event Name Event Status Request Date/Time Start Date/Time Complete Date/Time Arrive Complete 04/01/2025 22:26:25 04/01/2025 22:26:25 04/01/2025 22:26:25 Document Home Meds Request 04/01/2025 22:26:25 Triage Complete 04/01/2025 22:26:25 04/01/2025 22:38:01 04/01/2025 22:38:01 Registration Complete 04/01/2025 22:36:44 04/01/2025 22:36:44 04/01/2025 22:36:44 Reg Complete Request 04/01/2025 22:36:44 Reg Bed Request Complete 04/01/2025 22:36:44 04/01/2025 22:36:44 04/01/2025 22:36:44 Bed Assign Complete 04/01/2025 22:54:52 04/01/2025 22:54:52 04/01/2025 22:54:52 Dr Exam Complete 04/01/2025 22:54:52 04/01/2025 22:57:12 04/01/2025 22:57:12 RN Exam Complete 04/01/2025 22:54:52 04/02/2025 00:48:55 04/02/2025 00:48:55 Registration Request 04/01/2025 22:57:12 X-Ray Complete 04/01/2025 23:42:28 04/01/2025 23:44:58 04/01/2025 23:52:08 Wet Read Request 04/01/2025 23:52:08 Patient Care Complete 04/02/2025 00:16:19 04/02/2025 00:46:36 Discharge Complete 04/02/2025 00:17:46 04/02/2025 00:49:36 04/02/2025 00:49:36 Transfer Complete 04/02/2025 00:49:36 04/02/2025 00:49:36 04/02/2025 00:49:36 ADDRESS: [address] [place] [address] [facility] [phone] PHYS DOC NOTES: MEDICAL INFORMATION: Prescriptions Given: New Medications [id number], [address] [place] [id number], [phone] naproxen (Naprosyn 500 mg Tab) 1 Tablets By Mouth 2 times a day as needed for pain. Refills: 0. Medications to Continue with No Changes Other Medications ibuprofen (ibuprofen 600 mg Tab) 1 Tablets By Mouth every 6 hours. Refills: 0. oxycodone (oxyCODONE 5 mg Tab) 1 Tablets By Mouth every 6 hours as needed for pain. Refills: 0. PATIENT EDUCATION INFORMATION: Instructions: Ankle Sprain Follow up: With: Address: When: Dwayne Meier [address] [place] [id number] Business (1) In 3 days 04/05/2025 Comments: Units naproxen every 12 hours as needed for pain. Please follow-up with orthopedics for further evaluation management. Please return to the ED for any new or worsening symptoms. With: Address: When: Ginny Quach In 3 days DIAGNOSIS: Ankle sprain Normal [facility] ED Note-Physicianon 04-02-20 ED Note-Physician ED Note-Physician Basic Information Time Seen: Sharmaine Jamil DO Gia 04/01/2025 22:57 Chief Complaint pt arrives for right ankle pain after her dog knocked her over. states she fell over and since then unable to bear weight History of Present Illness Patient is a 24-year-old female presenting to the ED for evaluation of right ankle pain. Patient states she was with her dog when the dog knocked her over. She states her foot stayed planted however her ankle turned. Patient having pain in the right ankle anteriorly. Patient states she initially was able to walk on it however has been unable to put weight on it since that time. Denies any other injuries denies any other complaints. Review of Systems A 10 point review of systems is negative except as noted above. Medical and Surgical History: Reviewed and noted Social history: Lives at home Tobacco: Denies Physical Exam Vitals & Measurements T: 36.7 ???C(Oral) HR: 75(Peripheral) RR: 17 BP: 103/70 SpO2: 97% HT: 175 cm WT: 62 kg BMI: 20.24 General: Well developed, non toxic appearing, no acute distress HEENT: Head atraumatic, Mucosa moist, hearing grossly normal Neck: No JVD, tracheal deviation Cardiac: Regular rate, rhythm, no murmurs, or gallops, 2+ radial pulses Respiratory: Lungs clear to auscultation B/L, normal respiratory effort Extremities: Pain on palpation of the anterior ankle, no medial or lateral malleoli or tenderness no obvious swelling Neurologic: Alert and oriented, speech clear Skin: No rashes or lesions Psych: Appropriate mood and behavior Medical Decision Making MEDICAL DECISION MAKING Number and Complexity of Problems Differential Diagnosis: [] [facility] Data External documents reviewed: [] My EKG interpretation: [] My CT interpretation: [] My X-ray interpretation: [] My Ultrasound interpretation: [] Decision rules/scores evaluated: [] Discussed with: [] Treatment and Disposition ED Course: Patient is a 24-year-old female presenting to the ED for evaluation of right ankle pain. Patient is nontoxic in arrival, no acute distress. Does have pain on palpation of the anterior aspect of her ankle. X-rays obtained shows no acute fracture. Discussed with patient likely ankle sprain. She is placed in Aircast and given crutches for comfort. She is to follow-up with her primary care doctor for further evaluation management. She is to return to ED for any new or worsening symptoms. Shared decision making: [] Code status: [] Assessment/Plan Ankle sprain (S93.409A: Sprain of unspecified ligament of unspecified ankle, initial encounter) Orders: naproxen, 500 mg = 1 tab(s), Oral, BID, PRN for pain, # 20 tab(s), Refills(s) 0, Pharmacy: [id number], 175, cm, 04/01/25 22:38:00 EDT, Height/Length Dosing, 62, kg, 04/01/25 22:38:00 EDT, Weight Dosing Crutches Splint Application XR Ankle 3+ Views Right Disposition Plan Discharge Prescription List Prescriptions Naprosyn 500 mg Tab, 500 mg= 1 tab(s), Oral, BID, PRN Follow-up With When Contact Information Dwayne Meier In 3 days 04/05/[address] [place] [id number] [facility] (1) Additional Instructions: Units naproxen every 12 hours as needed for pain. Please follow-up with orthopedics for further evaluation management. Please return to the ED for any new or worsening symptoms. Ginny Quach In 3 days Additional Instructions: Patient Education [...] available. Diagnostic Results No qualifying data available. Normal [facility] Comment on above: Result Comment: Elec tronically Signed By: Sharmaine Jamil DO\.br\Date and Time Signed: 04/02/25 01:55 EDT ED Patient Summaryon 025 ED Patient Summary ED Patient Summary [facility] [address], [place] [address] Patient Discharge Instructions Person Information Name: LE ROCHA Age: 24 Years Arrival Date: 04/01/2025 22:26:25 Discharge Diagnosis: Ankle sprain Primary Care Physician: Ginny Quach Provider Information Primary Provider: Sharmaine Jamil DO Advanced Orange Picker Machine Operator:None The exam and treatment you received in the Emergency Department were for an urgent problem and are not intended as complete care. It is important that you follow up with a doctor, nurse practitioner, or physician???s assistant gm of content & delivery for ongoing care. If your symptoms become worse or you do not improve as expected and you are unable to reach your usual health care provider, you should return to the Emergency Department. We are available 24 hours a day. LE ROCHA has been given the following list of patient education materials, prescriptions and follow-up instructions: Follow-up Instructions: With: Address: When: Dwayne Meier [address] [place] [address] Business (1) In 3 days 04/05/2025 Comments: Units naproxen every 12 hours as needed for pain. Please follow-up with orthopedics for further evaluation management. Please return to the ED for any new or worsening symptoms. With: Address: When: Ginny Quach In 3 days In the event that this physician does not participate in your insurance network, please consult with your insurance company to find a nearby participating provider. Patient Education Materials: Ankle Sprain A MESSAGE TO ALL PATIENTS REGARDING OPIOIDS PRESCRIPTION OPIOIDS: WHAT YOU NEED TO KNOW Prescription opioids can be used to help relieve swmlcutj-cr-ccnmiu pain and are often prescribed following a surgery or injury, or for certain health conditions. These medications can be an important part of the treatment but also come with serious risks. It is important to work with your healthcare provider to make sure you are getting the safest, most effective care. WHAT ARE THE RISKS AND SIDE EFFECTS OF OPIOID USE? Prescription opioids carry serious risks of addiction and overdose, especially with prolonged use. An opioid overdose, often marked by slowed breathing, can cause sudden . The use of prescription opioids can have a number of side effects as well, even when taken as directed: ??? Tolerance???meaning you might need to take more of the medication for the same pain relief ??? Physical dependence???meaning you have symptoms of withdrawal when a medication is stopped ??? Increased sensitivity to pain ??? Constipation ??? Nausea, vomiting, and dry mouth ??? Sleepiness and dizziness ??? Confusion ??? Depression ??? Low levels of testosterone that can result in lower sex drive, energy, and strength ??? Itching and sweating RISKS ARE GREATER WITH: ??? History of drug misuse, substance use disorder, or overdose ??? Mental health conditions (such as depression or anxiety) ??? Sleep apnea ??? Older age (65 years and older) ??? Avoid alcohol while taking prescription opioids. Also, unless specifically advised by your health care provider, medications to avoid include: ??? Benzodiazepines (such as Xanax or Valium) ??? Muscle relaxants (such as Soma or Flexeril) ??? Hypnotics (such as Ambien or Lunesta) ??? Other prescription opioids KNOW YOUR OPTIONS Talk to your health care provider about ways to manage your pain that don???t involve prescription opioids. Some of these options may actually work better and have fewer risks and side effects. Options may include: ??? Pain relievers such as acetaminophen, ibuprofen, and naproxen ??? Some medication that are also used for depression or seizures ??? Physical therapy and exercise ??? Cognitive behavioral therapy, a psychological, goal-directed approach, in which patients learn how to modify physical, behavioral, and emotional triggers of pain and stress. IF YOU ARE PRESCRIBED OPIOIDS FOR PAIN: ??? Never take opioids in greater amounts or more often than prescribed. ??? Follow up with your primary health care provider. o Work together to create a plan on how to manage your pain. o Talk about ways to help manage your pain that don???t involve prescription opioids. o Talk about any and all concerns and side effects. ??? Help prevent misuse and abuse o Never sell or share prescription opioids. o Never use another person???s prescription opioids. ??? Store prescription opioids in a secure place and out of reach of others (this may include visitors, children, friends, and family). ??? Safely dispose of unused prescription opioids: Find your community drug take-back program or your pharmacy mail-back program, or flush them down the toilet, following guidance from the Food and Drug Administration (www.fda.gov/Drugs/R (more content not included)... Normal [facility] XR Ankle 3+ Views Righton XR Ankle 3+ Views Right Exam Date/Time: 04/01/2025 23:52 EDT Reason for Exam: Injury Report IMPRESSION: NO ACUTE OSSEOUS ABNORMALITY. EXAM: XR Ankle 3+ Views Right COMPARISON: None available HISTORY: Ankle pain FINDINGS: AP, lateral and oblique views of the ankle were obtained. FINDINGS: No acute fracture or dislocation. Ankle mortise is within normal limits. Talar dome is intact. Soft tissues are within normal limits. Ordering Provider: Sharmaine Jamil FINAL REPORT Dictated: 04/02/2025 10:28 am Rickey Sellers DO Signed (Electronic Signature): 04/02/2025 10:28 am Signed by: Rickey Sellers DO Transcribed by: MADY Technologist: JULES Normal [facility] Surgical Pathology Reporton 01-24-2025 Surgical Pathology Report [facility] [address] [place] [address]- Surgical Pathology Report Collected Date/Time: 01/20/2025 08:49 EDT Pathologist: Luis SANCHEZ PhD, Angelica Brian Received Date/Time: 01/22/2025 09:14 EDT Candido SANCHEZ, Samuel Rey MD, Samuel Roy Surgical Pathology Report - 01/24/2025 12:22 EDT - Auth (Verified) Final Diagnosis APPENDIX, APPENDECTOMY: - SEVERE ACUTE APPENDICITIS WITH TRANSMURAL INVOLVEMENT AND POSSIBLE PERFORATION.. - MARKED PERIAPPENDICITIS AND MICROABSCESS. (Electronic Signature) Angelica Smith MD PhD 01/24/2025 12:22 Clinical Information acute appendicis Pre-Op Diagnosis: acute appendicis Procedure: laparoscopic appendectomy Post-Op Diagnosis: Acute appendicitis Specimen(s) Received appendix Gross Description Received in formalin labeled with patient name, number, and appendix measuring 4.6 cm long and up to 1 cm in diameter. Approximately 3 cm of light yellow appendiceal fat is attached. Serosal surface is armas/alvarado and smooth; however, at the proximal end through the middle portion there is a white/yellow creamy filmy exudate. The proximal end is inked blue. Sectioning through the appendix, the appendiceal wall measures up to 0.5 cm and has a armas granular appearance, and the lumen measures up to 0.1 cm and has a armas/brown material. From the middle to distal end the appendiceal wall measures up to 0.3 cm and has a armas granular appearance, and the lumen is pinpoint. Near the most distal end there is a armas firm appearance measuring 0.5 x 0.4 cm. The appendix is submitted in a total of three cassettes. 1 - Proximal end 2 - Middle and appendiceal fat 3 - Entire distal end (DC) DC:MCA Microscopic Description Microscopic examination performed unless gross only specified. This report was transcribed using voice recognition technology and might contain unintended computerized lay ups assembler errors. Normal [facility] Comment on above: Performed By: #### 4 [id number] #### [facility] [address] [place] [address] Main OR Intraoperative Recor don 01-22-2025 Main OR Intraoperative Record Main OR Intraoperative Record IntraOp Document Type FT Summary Primary Physician: Samuel Rey MD Finalized Date/Time: 01/22/25 11:00:36 Pt. Name: LE ROCHA/Sex: 2000 Female Med Rec #: [id number] Physician: Samuel Rey MD Financial #: [id number] Pt. Type: O Room/Bed: [place] [address] Admit/Disch: 01/19/25 18:06:48 - 01/20/25 13:58:03 Institution: Case Times FT Entry 1 Patient Times In Room 01/20/25 08:08:00 Out Room 01/20/25 09:13:00 Procedure Times Start 01/20/25 08:33:00 Stop 01/20/25 09:05:00 Anesthesia Times Start 01/20/25 08:08:00 Stop 01/20/25 09:13:00 Last Modified By: Lani Avila 01/20/25 09:17:27 Case Attendance FT Entry 1 Entry 2 Entry 3 Case Attendee Candido SANCHEZ, Samuel Childs PA-C, Michelle SANCHEZ, Dwayne Vizcarra Role Performed Surgeon - Primary PA/PRESCRIPTIONIST Anesthesiologist of Record Time In 01/20/25 08:08:00 01/20/25 08:08:00 01/20/25 08:08:00 Time Out 01/20/25 09:03:00 01/20/25 09:13:00 01/20/25 09:13:00 Procedure APPENDECTOMY APPENDECTOMY APPENDECTOMY LAPAROSCOPIC LAPAROSCOPIC LAPAROSCOPIC Comments Last Modified By: Lani Avila Kelsie E Burgderfer, Kelsie E 01/20/25 09:17:29 01/20/25 09:17:29 01/20/25 09:17:29 Entry 4 Entry 5 Entry 6 Case Attendee Lani Avila Laura C Wilhelm CST, Frankie Role Performed Carpet Cleaner - Primary Scrub - Primary Staff - Other Time In 01/20/25 08:08:00 01/20/25 08:08:00 01/20/25 08:08:00 Time Out 01/20/25 09:13:00 01/20/25 09:13:00 01/20/25 09:13:00 Procedure APPENDECTOMY APPENDECTOMY APPENDECTOMY LAPAROSCOPIC LAPAROSCOPIC LAPAROSCOPIC Comments HELPING IN THE ROOM Last Modified By: Lani Avila Kelsie E Burgderfer, Kelsie E 01/20/25 09:17:29 01/20/25 09:17:29 01/20/25 09:17:29 Perioperative Protocols FT Pre-Care Text: Implements protective measures prior to operative or invasive procedure, confirms identity before the operative or invasive procedure, verifies operative procedure, surgical site, and laterality Entry 1 Procedure(s) APPENDECTOMY Patient Identity Birthday, ID Band LAPAROSCOPIC Verified (select at Check, Patient least 2): Participation Consents / H and P Anesthesia Consent, Operative Site N/A Verified H&P, Surgery/Procedure Marking Verified Consent, Transfusion Consent Surgical Site Yes Laterality Verified n/a Verified Procedure Verified Yes Correct Patient Yes Position Verified Availability Equipment, Medication Prep Dry Yes Verified (If Applicable) PreOp Antibiotic Yes Time Out Samuel Rey MD, Given Participants Amadeo MATHEW, Michelle Villagran MD, Dwayne Villarreal, Lani Avila, Sayda Anand, Frankie Billings CST Time Out Complete 01/20/25 08:31:00 Outcomes Met? Yes Last Modified By: Lani Avila 01/20/25 08:41:43 Post-Care Text: The patient is free from signs and symptoms of injury caused by extraneous objects Allergy Information FT Pre-Care Text: Verifies allergies Entry 1 Allergies Reviewed? Yes Allergies Reviewed Self/Patient With Outcomes Met? Yes Last Modified By: Lani Avila 01/20/25 08:36:13 Post-Care Text: The patient received appropriate medication(s) safely administered during the perioperative period Surgical Procedures FT Entry 1 Procedure Description Procedure APPENDECTOMY Surgeon Description APPENDECTOMY LAPAROSCOPIC LAPAROSCOPIC Primary Procedure Yes Primary Surgeon Samuel Rey MD Start 01/20/25 08:33:00 Stop 01/20/25 09:05:00 Anesthesia Type General Surgical Service General Wound Class 2 - Clean-Contaminated Last Modified By: Lani Avila 01/20/25 09:17:31 General Case Data FT Pre-Care Text: Classifies surgical wound, implements aseptic technique, initiates traffic control Entry 1 Case Information OR OR 2 FT Case Level Level 3 Wound Class 2 - Clean-Contaminated Specialty General ASA Class 1 Preop Diagnosis ACUTE APPENDICTIS Postop Same As Preop Yes Postop Diagnosis ACUTE APPENDICTIS Outcomes Met? Yes Last Modified By: Lani Avila 01/20/25 09:03:33 Post-Care Text: The patient is free from signs and symptoms of infection Skin Assessment (Pre Procedure) FT Pre-Care Text: Implements protective measures to prevent skin/ tissue injury due to thermal or mechanical sources Evaluates for signs and symptoms of physical injury to skin and tissue Entry 1 Skin Integrity Bruised, Intact, [place], Skin Abnormality Yes Warm, & Dry Abnormality Location BRUSIES ON RIGHT THIGH Outcomes Met? Yes AND AROUND RIGHT KNEE Last Modified By: Lani Avila 01/20/25 08:40:43 Post-Care Text: The patient is free from signs and symptoms of injury caused by extraneous objects Patient Positioning FT Pre-Care Text: Identifies physical alterations that require additional precautions for procedure-specific positioning, verifies presence of prosthetics or corrective (more content not included)... Normal [facility] ABO/Rh History Checkon 01-20 ABO/Rh History Check Type verified by second s Normal [facility] Comment on above: Performed By: #### 1 [id number] #### [facility] [address] [place] [address] ABO/Rh Retypeon 01-20-2025 ABO/Rh Retype Interp Positive Invalid Interpretation Code [facility] Comment on above: Performed By: #### 1 [id number] #### [facility] [address] [place] [address] BLOOD BANKOrdered By: Yudith Armstrong on 01-20-2025 ABO/Rh Retype Interp Positive Invalid Interpretation Code [facility] BB Subsection BMPon 01-20-2025 Anion gap [Moles/Vol] 10 mmol/L Normal 6-16 [facility] Comment on above: Performed By: #### 2 [id number] #### [facility] [address] [place] [address] Calcium [Mass/Vol] 8.5 mg/dL Low 8.9-11.1 [facility] Comment on above: Performed By: #### 2 [id number] #### [facility] [address] [place] [address] Chloride [Moles/Vol] 107 mmol/L Normal 101-111 [facility] Comment on above: Performed By: #### 2 [id number] #### [facility] [address] [place] [address] CO2 [Moles/Vol] 24 mmol/L Normal 21-31 [facility] Comment on above: Performed By: #### 2 [id number] #### [facility] [address] [place] [address] Creatinine [Mass/Vol] 0.7 mg/dL Normal 0.5-1.3 [facility] Comment on above: Performed By: #### 2 [id number] #### [facility] [address] [place] [address] Glucose [Mass/Vol] 100 mg/dL Normal 55-199 [facility] Comment on above: Performed By: #### 2 [id number] #### [facility] [address] [place] [address] Potassium [Moles/Vol] 4.0 mmol/L Normal 3.5-5.3 [facility] Comment on above: Performed By: #### 2 [id number] #### [facility] [address] [place] [address] Sodium [Moles/Vol] 137 mmol/L Normal 135-145 [facility] Comment on above: Performed By: #### 2 [id number] #### [facility] [address] [place] [address] Urea nitrogen [Mass/Vol] 12 mg/dL Normal 5-21 [facility] Comment on above: Performed By: #### 2 [id number] #### [facility] [address] [place] [address] Urea nitrogen/Creatinine [Mass ratio] 17 No Units Normal 10-20 [facility] Comment on above: Performed By: #### 2 [id number] #### [facility] [address] [place] [address] CBC w/ Auto Diffon 5 Basophils/100 WBC (Bld) 0.2 % Normal 0.0-2.0 [facility] Comment on above: Performed By: #### 2 [id number] #### [facility] [address] [place] [address] Basophils/Leukocytes Auto (Bld) [Pure # fraction] 0.0 E9/L Normal 0.0-0.2 [facility] Comment on above: Performed By: #### 2 [id number] #### [facility] [address] [place] [address] Eosinophils (Bld) [#/Vol] 0.1 E9/L Normal 0.0-0.5 [facility] Comment on above: Performed By: #### 2 [id number] #### [facility] [address] [place] [address] Eosinophils/100 WBC (Bld) 0.6 % Normal 0.0-8.0 [facility] Comment on above: Performed By: #### 2 [id number] #### [facility] [address] [place] [address] Erythrocyte distribution width (RBC) [Ratio] 13.5 % Normal 10.9-14.2 [facility] Comment on above: Performed By: #### 2 [id number] #### [facility] [address] [place] [address] Hematocrit (Bld) [Volume fraction] 32.0 % Low 34.0-46.0 [facility] Comment on above: Performed By: #### 2 [id number] #### [facility] [address] [place] [address] Hemoglobin (Bld) [Mass/Vol] 11.0 g/dL Low 12.0-16.0 [facility] Comment on above: Performed By: #### 2 [id number] #### [facility] [address] [place] [address] Lymphocytes (Bld) [#/Vol] 1.6 E9/L Normal 1.0-4.0 [facility] Comment on above: Performed By: #### 2 [id number] #### [facility] [address] [place] [address] Lymphocytes/100 WBC (Bld) 12.1 % Low 14.0-50.0 [facility] Comment on above: Performed By: #### 2 [id number] #### [facility] [address] [place] [address] MCH (RBC) [Entitic mass] 29.7 pg Normal 27.0-34.0 [facility] Comment on above: Performed By: #### 2 [id number] #### [facility] [address] [place] [address] MCHC (RBC) [Mass/Vol] 34.4 g/dL Normal 31.4-36.0 [facility] Comment on above: Performed By: #### 2 [id number] #### [facility] [address] [place] [address] MCV (RBC) [Entitic vol] 86.1 fL Normal 80.0-100.0 [facility] Comment on above: Performed By: #### 2 [id number] #### [facility] [address] [place] [address] Monocytes (Bld) [#/Vol] 1.0 E9/L Normal 0.2-1.0 [facility] Comment on above: Performed By: #### 2 [id number] #### [facility] [address] [place] [address] Neutrophils (Bld) [#/Vol] 10.4 E9/L High 2.0-7.5 [facility] Comment on above: Performed By: #### 2 [id number] #### [facility] [address] [place] [address] Neutrophils/100 WBC (Bld) 79.2 % High 36.0-75.0 [facility] Comment on above: Performed By: #### 2 [id number] #### [facility] [address] [place] [address] Platelet mean volume (Bld) [Entitic vol] 8.6 fL Normal 6.4-10.8 [facility] Comment on above: Performed By: #### 2 [id number] #### [facility] [address] [place] [address] Platelets (Bld) [#/Vol] 247.0 E9/L Normal 150. 0-500. 0 [facility] Comment on above: Performed By: #### 2 [id number] #### [facility] [address] [place] [address] RBC (Bld) [#/Vol] 3.7 E12/L Low 4.3-5.9 [facility] Comment on above: Performed By: #### 2 [id number] #### [facility] [address] [place] [address] WBC corrected for nucl RBC Auto (Bld) [#/Vol] 13.1 E9/L High 4.0-11.0 [facility] Comment on above: Performed By: #### 2 [id number] #### [facility] [address] [place] [address] CHEMISTRYOrdered By: [employer] on 01-20-2025 Anion gap [Moles/Vol] 10 mmol/L Normal 6 - 16 mEq/L [facility] Calcium [Mass/Vol] 8.5 mg/dL Low 8.9 - 11. 1 mg/dL [facility] Chloride [Moles/Vol] 107 mmol/L Normal 101 - 1 11 mmol/L [facility] CO2 [Moles/Vol] 24 mmol/L Normal 21 - 31 mmol/L [facility] Creatinine [Mass/Vol] 0.7 mg/dL Normal 0.5 - 1.3 mg/dL [facility] eGFR 123 mL/min/1.73 m2 Normal >=59mL/mi n /1.73 m2 [facility] Glucose [Mass/Vol] 100 mg/dL Normal 55 - 199 mg/dL [facility] Potassium [Moles/Vol] 4.0 mmol/L Normal 3.5 - 5.3 mmol/L [facility] Sodium [Moles/Vol] 137 mmol/L Normal 135 - 145 mmol/L [facility] Urea nitrogen [Mass/Vol] 12 mg/dL Normal 5 - 21 mg/dL [facility] Urea nitrogen/Creatinine [Mass ratio] 17 mg/mg Normal 10 - 20 [facility] COAGULATIONOrdered By: Lisa Urrutia on 01-20-2025 aPTT Coag (PPP) [Time] 36.6 s High 25.1 - 36.5 second(s) [facility] Comment on above: Interpretive Data: P liviameter 15 days - 4 weeks 1 - 5 months 6 - 11 months 1 - 5 years 6 - 10 years 11 - 17 years PTT Mean: 35.4 (27.6-45.6) Mean: 33.5 (24.8-40.7) Mean: 32.4 (25.1-40.7) Mean: 31.6 (24.0-39.2) Mean: 31.6 (26.9-38.7) Mean: 31.0 (24.6-38.4) Pediatric Reference ranges were obtained from a study by Justice Elliott et alAram prepared from 1437 samples obtained at 7 different centers using the same coagulation reagent and instrumentation as [facility]. Currently there are no coagulation studies available worldwide for children to 14 days, and no normal ranges. Heparin therapeutic range (represented by Anti-Factor Xa activity of 0.2 - 0.4 U/mL) corresponds to PTT of 56.6 - 109.0 sec. INR Coag (PPP) [Relative time] 1.11 {INR} Invalid Interpretation Code [facility] Auto Coag Comment on above: Interpretive Data: I NR results are specifically intended to assess patients stabilized on long-term Anticoagulation therapy suggested INR s Less Intensive Anticoagulation 2.0 3.0 Conventional Range 3.0 4.5 PT Coag (PPP) [Time] 12.5 s Normal 9.4 - 1 2.5 second(s) [facility] Auto Coag Comment on above: Interpretive Data: 1 5 days - 4 weeks 1 - 5 months 6 -11 months 1-5 years 6-10 years 11 -17 years Mean: 11.2 (9.5-12.6) Mean: 11.0 (9.7-12.8) Mean: 11.0 (9.8-13.0) Mean: 11.3 (9.9-13.4) Mean: 11.7 (10.0-14.6) Mean: 11.8 (10.0 - 14.1) Pediatric Reference ranges were obtained from a study by kelsey Mg prepared from 1437 samples obtained at 7 different centers using the same coagulation reagent and instrumentation as [facility]. Currently there are no coagulation studies available worldwide for children to 14 days, and no normal ranges. Discharge Note-Nursingon Discharge Note-Nursing Discharge Note-Shruthi charlesrut LE ROCHA :2000 Visit Date:01/19/2025 Inpatient Discharge Instructions Your Care Team Admitting Physician - Samuel Rey MD Reason for Your Visit APPENDICITIS Your Diagnosis Acute appendicitis No Chronic Problems Tests Performed Pathology Tissue Exam -- Results Pending -- Please visit your patient portal for your results or contact your primary care physician. This Is Your Medications List acetaminophen (acetaminophen 325 mg Tab) ibuprofen (ibuprofen 600 mg Tab) [Image Removed: STOP]Stop taking these medications cephalexin Discharge Vitals Temperature (Axillary) 36.5 ???C Heart Rate (Monitored) 72 Respiratory Rate 18 Blood Pressure 105/66 Height 175.26 cm Weight 62.3 kg BMI 20.28 What to do next Instructions From Your Doctor Event Name Event Result Discharge Activity Ambulate as tolerated Discharge Restrictions No restrictions Discharge Diet(s) Regular Pending Diagnostic Test Results Biopsy/pathology Discharge Instructions Do not lift more than 15lbs for 4 weeks New Follow Up Appointments after Discharge Follow Up with Trauma Clinic When: Comments: Appointment has already been scheduled for 01/31/25 Where: [address] [place] [address] [address], [address] [place] [phone] Medications What How Much When Instructions Next Dose New acetaminophen (acetaminophen 325 mg Tab) 2 Tablets By Mouth Every 6 hours Duration: 14 Days Pickup at [facility] 01/20 @ 1800 New ibuprofen (ibuprofen 600 mg Tab) 1 Tablets By Mouth Every 6 hours Pickup at [facility] Start today Pharmacy Information [facility]: [id number], [place] [id number] [phone] What How Much When Comments Stop Taking cephalexin 500 Milligram By Mouth Every 8 hours Test Results CBC BMP WBC: 13.1 E9/L High (01/20/25 05:27:00) Glucose Lvl: 100 mg/dL (01/20/25 05:27:00) RBC: 3.7 E12/L Low (01/20/25 05:27:00) BUN: 12 mg/dL (01/20/25 05:27:00) HGB: 11 gm/dL Low (01/20/25 05:27:00) Creatinine: 0.7 mg/dL (01/20/25 05:27:00) Hct: 32 % Low (01/20/25 05:27:00) BUN/Creat Ratio: 17 (01/20/25 05:27:00) MCV: 86.1 fL (01/20/25 05:27:00) Sodium Lvl: 137 mmol/L (01/20/25 05:27:00) MCH: 29.7 pg (01/20/25 05:27:00) Potassium Lvl: 4 mmol/L (01/20/25 05:27:00) MCHC: 34.4 gm/dL (01/20/25 05::00) Chloride: 107 mmol/L (01/20/25 05:27:00) RDW: 13.5 % (01/20/25 05:27:00) CO2: 24 mmol/L (01/20/25 05:27:00) Platelet: 247 E9/L (01/20/25 05:27:00) AGAP: 10 mEq/L (01/20/25 05:27:00) MPV: 8.6 fL (01/20/25 05:27:00) Calcium Lvl: 8.5 mg/dL Low (01/20/25 05:27:00) Allergies No Known Allergies Education Materials Laparoscopic Appendectomy, Adult, Care After The following information offers guidance on how to care for yourself after your procedure. Your health care provider may also give you more specific instructions. If you have problems or questions, contact your health care provider. What can I expect after the procedure? After the procedure, it is common to have: ??? Tiredness (fatigue). ??? Mild pain in the incision areas. ??? Constipation. This may be caused by taking pain medicines and being less active during recovery. ??? Gas pain that can radiate to your shoulders. Follow these instructions at home: Medicines ??? Take ynhf-ldz-zvvtwei and prescription medicines only as told by your health care provider. ? Finish all antibiotic medicine even if you start to feel better. ? Take pain medicines before your pain becomes severe. ??? Ask your health care provider if your condition or your medicine: ? Requires you to avoid driving or using machinery. ? Can cause constipation. You may need to take these actions to prevent or treat constipation: ? Drink enough fluid to keep your urine pale yellow. ? Take zeme-ulq-amcklnq or prescription medicines. ? Eat foods that are high in fiber, such as beans, whole grains, and fresh fruits and vegetables. ? Limit foods that are high in fat and processed sugars, such as fried or sweet foods. Incision care ??? Follow instructions from your health care provider about how to take care of your incisions. Make sure you: ? Wash your hands with soap and water for at least 20 seconds before and after you change your bandage (dressing). If soap and water are not available, use hand software design manager. ? Change your dressing as told by your health care provider. ? Leave stitches (sutures), oseas, skin glue, or adhesive strips in place. These skin closures may need to stay in place for 2 weeks or longer. If adhesive strip edges start to loosen and curl up, you may trim the loose edges. Do not remove adhesive strips completely unless your health care provider tells you to do that. ??? Check your incision areas every day for signs of infection. Check for: ? (more content not included)... Normal [facility] HEMATOLOGYOrdered By: SYSTEM SYSTEM on 01-20-2025 Basophils/100 WBC (Bld) 0.2 % Normal 0.0 - 2.0 % [facility] Basophils/Leukocytes Auto (Bld) [Pure # fraction] 0.0 E9/L Normal 0.0 - 0.2 E9/L [facility] Eosinophils (Bld) [#/Vol] 0.1 E9/L Normal 0.0 - 0.5 E9/L [facility] Eosinophils/100 WBC (Bld) 0.6 % Normal 0.0 - 8.0 % [facility] Erythrocyte distribution width (RBC) [Ratio] 13.5 % Normal 10.9 - 14.2 % [facility] Hematocrit (Bld) [Volume fraction] 32.0 % Low 34.0 - 46.0 % [facility] Hemoglobin (Bld) [Mass/Vol] 11.0 g/dL Low 12.0 - 16.0 gm/dL [facility] Lymphocytes (Bld) [#/Vol] 1.6 E9/L Normal 1.0 - 4.0 E9/L [facility] Lymphocytes/100 WBC (Bld) 12.1 % Low 14.0 - 50.0 % [facility] MCH (RBC) [Entitic mass] 29.7 pg Normal 27.0 - 34.0 pg [facility] MCHC (RBC) [Mass/Vol] 34.4 g/dL Normal 31.4 - 36.0 gm/dL [facility] MCV (RBC) [Entitic vol] 86.1 fL Normal 80.0 - 100.0 fL [facility] Monocytes (Bld) [#/Vol] 1.0 E9/L Normal 0.2 - 1.0 E9/L [facility] Monocytes/100 WBC (Bld) 7.9 % Normal 4.0 - 14.0 % [facility] Neutrophils (Bld) [#/Vol] 10.4 E9/L High 2.0 - 7.5 E9/L [facility] Neutrophils/100 WBC (Bld) 79.2 % High 36.0 - 75.0 % [facility] Platelet mean volume (Bld) [Entitic vol] 8.6 fL Normal 6.4 - 10.8 fL [facility] Platelets (Bld) [#/Vol] 247.0 E9/L Normal 150. 0 - 500.0 E9/L [facility] RBC (Bld) [#/Vol] 3.7 E12/L Low 4.3 - 5.9 E12/L [facility] WBC corrected for nucl RBC Auto (Bld) [#/Vol] 13.1 E9/L High 4.0 - 11.0 E9/L [facility] Main OR Intraoperative Recor don 01-20-2025 Main OR Intraoperative Record Main OR Intraoperative Record IntraOp Document Type FT Summary Primary Physician: Samuel Rey MD Finalized Date/Time: 01/20/25 09:17:44 Pt. Name: LE ROCHA/Sex: 2000 Female Med Rec #: [id number] Physician: Samuel Rey MD Financial #: [id number] Pt. Type: O Room/Bed: [facility] Admit/Disch: 01/19/25 18:06:48 - Institution: Case Times FT Entry 1 Patient Times In Room 01/20/25 08:08:00 Out Room 01/20/25 09:13:00 Procedure Times Start 01/20/25 08:33:00 Stop 01/20/25 09:05:00 Anesthesia Times Start 01/20/25 08:08:00 Stop 01/20/25 09:13:00 Last Modified By: Lani Avila 01/20/25 09:17:27 Case Attendance FT Entry 1 Entry 2 Entry 3 Case Attendee Candido SANCHEZ, Samuel Childs PA-C, Michelle SANCHEZ, Dwayne Vizcarra Role Performed Surgeon - Primary PA/PRESCRIPTIONIST Anesthesiologist of Record Time In 01/20/25 08:08:00 01/20/25 08:08:00 01/20/25 08:08:00 Time Out 01/20/25 09:03:00 01/20/25 09:13:00 01/20/25 09:13:00 Procedure APPENDECTOMY APPENDECTOMY APPENDECTOMY LAPAROSCOPIC LAPAROSCOPIC LAPAROSCOPIC Comments Last Modified By: Lani Avila Kelsie E Burgderfer, Kelsie E 01/20/25 09:17:29 01/20/25 09:17:29 01/20/25 09:17:29 Entry 4 Entry 5 Entry 6 Case Attendee Lani Avila Laura C Wilhelm CST, Frankie Role Performed Carpet Cleaner - Primary Scrub - Primary Staff - Other Time In 01/20/25 08:08:00 01/20/25 08:08:00 01/20/25 08:08:00 Time Out 01/20/25 09:13:00 01/20/25 09:13:00 01/20/25 09:13:00 Procedure APPENDECTOMY APPENDECTOMY APPENDECTOMY LAPAROSCOPIC LAPAROSCOPIC LAPAROSCOPIC Comments HELPING IN THE ROOM Last Modified By: Lani Avila Kelsie E Burgderfer, Kelsie E 01/20/25 09:17:29 01/20/25 09:17:29 01/20/25 09:17:29 Perioperative Protocols FT Pre-Care Text: Implements protective measures prior to operative or invasive procedure, confirms identity before the operative or invasive procedure, verifies operative procedure, surgical site, and laterality Entry 1 Procedure(s) APPENDECTOMY Patient Identity Birthday, ID Band LAPAROSCOPIC Verified (select at Check, Patient least 2): Participation Consents / H and P Anesthesia Consent, Operative Site N/A Verified H&P, Surgery/Procedure Marking Verified Consent, Transfusion Consent Surgical Site Yes Laterality Verified n/a Verified Procedure Verified Yes Correct Patient Yes Position Verified Availability Equipment, Medication Prep Dry Yes Verified (If Applicable) PreOp Antibiotic Yes Time Out Samuel Rey MD, Given Participants Amadeo MATHEW, Michelle Villagran MD, Dwayne Villarreal, Lani Avila, Sayda Anand, Frankie Billings CST Time Out Complete 01/20/25 08:31:00 Outcomes Met? Yes Last Modified By: Lani Avila 01/20/25 08:41:43 Post-Care Text: The patient is free from signs and symptoms of injury caused by extraneous objects Allergy Information FT Pre-Care Text: Verifies allergies Entry 1 Allergies Reviewed? Yes Allergies Reviewed Self/Patient With Outcomes Met? Yes Last Modified By: Lani Avila 01/20/25 08:36:13 Post-Care Text: The patient received appropriate medication(s) safely administered during the perioperative period Surgical Procedures FT Entry 1 Procedure Description Procedure APPENDECTOMY Surgeon Description APPENDECTOMY LAPAROSCOPIC LAPAROSCOPIC Primary Procedure Yes Primary Surgeon Samuel Rey MD Start 01/20/25 08:33:00 Stop 01/20/25 09:05:00 Anesthesia Type General Surgical Service General Wound Class 2 - Clean-Contaminated Last Modified By: Lani Avila 01/20/25 09:17:31 General Case Data FT Pre-Care Text: Classifies surgical wound, implements aseptic technique, initiates traffic control Entry 1 Case Information OR OR 2 FT Case Level Level 3 Wound Class 2 - Clean-Contaminated Specialty General ASA Class 1 Preop Diagnosis ACUTE APPENDICTIS Postop Same As Preop Yes Postop Diagnosis ACUTE APPENDICTIS Outcomes Met? Yes Last Modified By: Lani Avila 01/20/25 09:03:33 Post-Care Text: The patient is free from signs and symptoms of infection Skin Assessment (Pre Procedure) FT Pre-Care Text: Implements protective measures to prevent skin/ tissue injury due to thermal or mechanical sources Evaluates for signs and symptoms of physical injury to skin and tissue Entry 1 Skin Integrity Bruised, Intact, [place], Skin Abnormality Yes Warm, & Dry Abnormality Location BRUSIES ON RIGHT THIGH Outcomes Met? Yes AND AROUND RIGHT KNEE Last Modified By: Lani Avila 01/20/25 08:40:43 Post-Care Text: The patient is free from signs and symptoms of injury caused by extraneous objects Patient Positioning FT Pre-Care Text: Identifies physical alterations that require additional precautions for procedure-specific positioning, verifies presence of prosthetics or corrective devices, positions (more content not included)... Normal [facility] Main OR PACU I Recordon Main OR PACU I Record Main OR PACU I Rec ord PACU Phase I Document Type FT Summary Primary Physician: Samuel Rey MD Finalized Date/Time: 01/20/25 10:12:14 Pt. Name: LE ROCHA/Sex: 2000 Female Med Rec #: [id number] Physician: Samuel Rey MD Financial #: [id number] Pt. Type: O Room/Bed: [place] [address] Admit/Disch: 01/19/25 18:06:48 - Institution: Case Times PACU I FT Pre-Care Text: Identifies barriers to communication and implements measures to provide psychological support Develops individualized plan of care, and ensures continuity of care Maintains patient's dignity and privacy, and maintains patient confidentiality Identifies and reports philosophical, cultural, and spiritual beliefs and values Identifies individual values and wishes concerning care Implements aseptic technique, and administers prescribed antibiotic therapy and immunizing agents as ordered Evaluates postoperative tissue perfusion Implements thermoregulation measures, and monitors body temperature Evaluates postoperative respiratory status Evaluates postoperative cardiac status Evaluates postoperative neurological status Assesses pain control, collaborated in initiating patient-controlled analgesia and implements alternative methods of pain control Verifies allergies, administers prescribed medications and solutions, evaluates response to medications Entry 1 In PACU I 01/20/25 09:15:00 Discharge from PACU 01/20/25 09:45:00 I Outcomes Met? Yes Last Modified By: Corazon Hawkins I 01/20/25 10:11:59 Post-Care Text: The patient demonstrates knowledge of the expected response to the operative or invasive procedure The patient's care is consistent with the individualized perioperative plan of care The patient's right to privacy is maintained The patient's value system, lifestyle, ethnicity, and culture are considered, respected, and incorporated into the perioperative plan of care The patient participates in decisions affecting his or her perioperative plan of care The patient is free from signs and symptoms of infection The patient has wound/tissue perfusion consistent with or improved from baseline levels established preoperatively The patient is at or returning to normothermia at the conclusion of the immediate postoperative period The patient's respiratory function is consistent with or improved from baseline levels established preoperatively The patient's cardiovascular status is consistent with or improved from baseline levels established preoperatively The patient's cardiovascular status is consistent with or improved from baseline levels established preoperatively The patient demonstrates and/or reports adequate pain control throughout the perioperative period The patient received appropriate medication(s), safely administered during the perioperative period Acuity Level PACU I FT Entry 1 Start Time 01/20/25 09:15:00 Stop Time 01/20/25 09:45:00 Acuity Level Acuity Level I Last Modified By: Corazon Hawkins I 01/20/25 10:12:10 Finalized By: Corazon Hawkins I Document Signatures Signed By: Corazon Hawkins I 01/20/25 10:12 Normal [facility] Main OR Preoperative Recordo n 01-20-2025 Main OR Preoperative Record Main OR Preoperative Record Holding Area Document Type FT Summary Primary Physician: Samuel Rey MD Finalized Date/Time: 01/20/25 08:37:35 Pt. Name: LE ROCHA D.O.B./Sex: 2000 Female Med Rec #: [id number] Physician: Samuel Rey MD Financial #: [id number] Pt. Type: O Room/Bed: [facility]/ Admit/Disch: 01/19/25 18:06:48 - Institution: Case Times Holding FT Pre-Care Text: Verifies consent for planned procedure, identifies individual values and wishes concerning care, includes family members in perioperative teaching Secures patient's records' belongings, and valuables, maintains patient's dignity and privacy, and maintains patient confidentiality Entry 1 In Holding 01/20/25 08:02:00 Outcomes Met? Yes Last Modified By: Lani Avila 01/20/25 08:36:40 Post-Care Text: The patient participates in decisions affecting his or her perioperative plan of care The patient's right to privacy is maintained Surgery Checklist FT Entry 1 Patient Birthday, ID Band Procedure History and Physical, Identification: Check, Patient Verification: Surgical Consent, With Participation Patient NPO after Midnight: Yes Date/Time: 01/20/25 08:02:00 Preop Results Test Results Reviewed N/A Reviewed: Comments: Personal Items N/A Limitations: N/A Comment: Operative Site n/a Marked By: N/A Marking: Location: N/A Availability Equipment Verified: Does Patient Smoke Yes Case Cancelled in No Holding Area see comments below for reason Last Modified By: Lani Avila 01/20/25 08:37:32 Finalized By: Lani Avila Document Signatures Signed By: Lani Avila 01/20/25 08:37 Normal [facility] Operative Reporton Operative Report Operative Report [facility] Acute Care Surgery Operative Report Date of Service: 01/20/2025 Preop Diagnosis: Acute appendicitis Postop Diagnosis: Acute appendicitis Procedure: Laparoscopic appendectomy Surgeon:Samuel Rey MD [place] Program Coordinator: KEI Campuzano Anesthesia: General endotracheal EBL: 5 mL Drains: none Complications: None Specimens: Appendix Intraoperative Findings: Acutely inflamed appendix without perforation Indications: LE ROCHA is a 24 Years Female presented to the ED with complaints of abdominal pain. She was found to have signs and symptoms consistent with acute appendicitis. The risks, benefits, and alternatives to laparoscopic appendectomy were explained to the patient who provided informed consent for the procedure. Operative Note: The patient was brought to the operating room and positioned on the operating table in a supine manner. SCDs were placed on bilateral lower extremities and pre-operative antibiotics were administered. General endotracheal anesthesia was induced. A Wesley catheter was placed to decompress the bladder. The patient was then prepped and draped in the usual sterile fashion. A time out was performed by the entire operating room team to confirm the correct patient, the correct site, and the correct procedure. It was made in the left upper quadrant at Rosas's point. A Veress needle was introduced and pneumoperitoneum was established. A 5 mm incision was made in the supraumbilical space and a Optiview trocar was used to gain entry into the peritoneal cavity. The underlying viscera was inspected and was found to be injury free and the Veress needle was removed. A 12 mm incision was made in the left lower quadrant and a 5 mm incision was made in the suprapubic space, under direct visualization. A bilateral transversus abdominis plane block was performed using a combination of Exparel, Marcaine, and injectable saline. The patient was placed in Trendelenburg with left side down. Right lower quadrant was inspected and the appendix was visualized. There was no purulence or surrounding murky fluid. The appendix was acutely inflamed with the omentum covering it. A LigaSure device was used to transect the mesoappendix down to the base. A 0???PDS Endoloop was brought onto the field and used to encircle the appendiceal base and was cinched in place. The appendix was transected using the LigaSure and placed in an Endo Catch bag and removed through the 12 mm port. The appendiceal stump was inspected and found to be hemostatic without signs of leakage. The fascia for the 12 mm port was then closed with a 0 Vicryl suture and a Saman Tomlin device. The remaining ports were removed under direct visualization and pneumoperitoneum was released. The skin was closed with 4-0 Monocryl and Dermabond. At the end of the case, all instrument and sponge counts were correct. General anesthesia was withdrawn, the Wesley was removed, and the patient was awoken and extubated. The patient was transferred to PACU in good condition. I was present for all parts of the procedure. Samuel Rey MD Normal [facility] Comment on above: Result Comment: Elec tronically Signed By: Candido SANCHEZ, Samuel X\.br\Date and Time Signed: 01/20/25 09:21 EDT PT & PTTon 01-20-2025 aPTT Coag (PPP) [Time] 36.6 second(s) High 25.1-36.5 [facility] Comment on above: Result Comment: Para meter 15 days - 4 weeks 1 - 5 months 6 - 11 months 1 - 5 years 6 - 10 years 11 - 17 years PTT Mean: 35.4 (27.6-45.6) Mean: 33.5 (24.8-40.7) Mean: 32.4 (25.1-40.7) Mean: 31.6 (24.0-39.2) Mean: 31.6 (26.9-38.7) Mean: 31.0 (24.6-38.4) Pediatric Reference ranges were obtained from a study by [employer] prepared from 1437 samples obtained at 7 different centers using the same coagulation reagent and instrumentation as [facility]. Currently there are no coagulation studies available worldwide for children to 14 days, and no normal ranges. Heparin therapeutic range (represented by Anti-Factor Xa activity of 0.2 - 0.4 U/mL) corresponds to PTT of 56.6 - 109.0 sec. Performed By: #### 1 [id number] #### [facility] [address] [place] [address] INR Coag (PPP) [Relative time] 1.11 {INR} Invalid Interpretation Code [facility] Comment on above: Result Comment: INR results are specifically intended to assess patients stabilized on long-term Anticoagulation therapy suggested INR???s ???Less Intensive Anticoagulation??? 2.0 ??? 3.0 Conventional Range 3.0 ??? 4.5 Performed By: #### 1 [id number] #### [facility] [address] [place] [address] PT Coag (PPP) [Time] 12.5 second(s) Normal 9.4-12.5 [facility] Comment on above: Result Comment: 15 d ays - 4 weeks 1 - 5 months 6 -11 months 1-5 years 6-10 years 11 -17 years Mean: 11.2 (9.5-12.6) Mean: 11.0 (9.7-12.8) Mean: 11.0 (9.8-13.0) Mean: 11.3 (9.9-13.4) Mean: 11.7 (10.0-14.6) Mean: 11.8 (10.0 - 14.1) Pediatric Reference ranges were obtained from a study by Justice Bronte, et al. prepared from 1437 samples obtained at 7 different centers using the same coagulation reagent and instrumentation as [facility]. Currently there are no coagulation studies available worldwide for children to 14 days, and no normal ranges. Performed By: #### 1 [id number] #### [facility] [address] [place] [address] SEROLOGYOrdered By: Tiarra Urrutia on 01-20-2025 HCG.beta subunit (U) [Moles/Vol] Negative Normal [facility] Man Sero U BetaHcg Qualon 01-20-2025 HCG.beta subunit (U) [Moles/Vol] Negative Normal [facility] Comment on above: Performed By: #### 2 [id number] #### [facility] [address] [place] [address] UA with Cult Rflxon 01-21-20 25 Bilirubin Ql (U) Negative Normal Negative [facility] Comment on above: Performed By: #### 4 [id number] #### [facility] [address] [place] [address] Clarity (U) Clear Normal Clear [facility] Comment on above: Performed By: #### 4 [id number] #### [facility] [address] [place] [address] Color (U) Yellow Normal Yellow [facility] Comment on above: Result Comment: Micr oscopic readings are only performed on those samples that meet specific criteria set forth by [facility]. Performed By: #### 4 [id number] #### [facility] [address] [place] [address] Glucose Ql (U) Negative Normal Negative [facility] Comment on above: Performed By: #### 4 [id number] #### [facility] [address] [place] [address] Hemoglobin Auto test strip (U) [Mass/Vol] Negative Normal Negative [facility] Comment on above: Performed By: #### 4 [id number] #### [facility] [address] [place] [address] Ketones Auto test strip Ql (U) Negative Normal Negative [facility] Comment on above: Performed By: #### 4 [id number] #### [facility] [address] [place] [address] Leukocyte esterase Auto test strip Ql (U) Negative Normal Negative [facility] Comment on above: Performed By: #### 4 [id number] #### [facility] [address] [place] [address] Nitrite Auto test strip Ql (U) Negative Normal Negative [facility] Comment on above: Performed By: #### 4 [id number] #### [facility] [address] [place] [address] pH (U) 6.5 [pH] Invalid Interpretation Code 5.0-9.0 [facility] Comment on above: Performed By: #### 4 [id number] #### [facility] [address] [place] [address] Protein Ql (U) Negative Normal Negative [facility] Comment on above: Performed By: #### 4 [id number] #### [facility] [address] [place] [address] Specific gravity (U) [Rel density] 1.032 Invalid Interpretation Code 1.005-1.03 0 [facility] Comment on above: Performed By: #### 4 [id number] #### [facility] [address] [place] [address] Urobilinogen (U) [Mass/Vol] Negative Normal Negative [facility] Comment on above: Performed By: #### 4 [id number] #### [facility] [address] [place] [address] Type of Urine collection method Wesley Normal [facility] Comment on above: Performed By: #### 4 [id number] #### [facility] [address] [place] [address] URINALYSISOrdered By: SYSTEM SYSTEM on 01-20-2025 Bilirubin Ql (U) Negative Normal Negativemg /dL [facility] UA Auto SS Clarity (U) Clear (01/20/25 8:47 AM) Normal Clear [facility] UA Auto SS Color (U) Yellow 1 (01/20/25 8:47 AM) Normal Yellow [facility] UA Auto SS Comment on above: Interpretive Data: M icroscopic readings are only performed on those samples that meet specific criteria set forth by [facility]. Glucose Ql (U) Negative Normal Negativemg /dL [facility] UA Auto SS Hemoglobin Auto test strip (U) [Mass/Vol] Negative Normal Negativemg /dL [facility] UA Auto SS Ketones Auto test strip Ql (U) Negative Normal Negativemg /dL [facility] UA Auto SS Leukocyte esterase Auto test strip Ql (U) Negative Normal NegativeLe u/uL [facility] UA Auto SS Nitrite Auto test strip Ql (U) Negative Normal Negativemg /dL [facility] UA Auto SS pH (U) 6.5 *NA* (01/20/25 8:47 AM) Invalid Interpretation Code 5.0 - 9.0 [facility] UA Auto SS Protein Ql (U) Negative Normal Negativemg /dL [facility] UA Auto SS Specific gravity (U) [Rel density] 1.032 *NA* (01/20/25 8:47 AM) Invalid Interpretation Code 1.005 - 1.030 [facility] UA Auto SS Urobilinogen (U) [Mass/Vol] Negative Normal Negativemg /dL [facility] UA Auto SS URINALYSISOrdered By: Lani Avila on 01-20-2025 UA Spec Desc Wesley (01/20/25 8:47 AM) Normal [facility] UA Auto SS eGFRon 01-20-2025 eGFR 123 mL/min/1.73 m2 Normal >=59 [facility] Comment on above: Performed By: #### 1 [id number] #### [facility] [address] [place] [address] ABO/Rhon 01-19-2025 ABO/Rh Positive Invalid Interpretation Code [facility] Comment on above: Performed By: #### 2 [id number] #### [facility] [address] [place] [address] ABSCon 01-19-2025 ABSC Gel Interp Negative Normal [facility] Comment on above: Performed By: #### 1 [id number] #### [facility] [address] [place] [address] BLOOD BANKOrdered By: Rona Kunz on 01-19-2025 ABO/Rh Interp Positive Invalid Interpretation Code [facility] BB Subsection BLOOD BANKOrdered By: Cameron Lucero on 01-19-2025 ABSC Gel Interp Negative (01/19/25 6:27 PM) Normal [facility] BB Subsection Blood Bank ID#on 01-19-2025 BBID# [id number] Invalid Interpretation Code [facility] Comment on above: Performed By: #### 1 [id number] #### [facility] [address] [place] [address] Extra Blueon 01-19-2025 Tube Collected Plasma Yes Invalid Interpretation Code [facility] Comment on above: Performed By: #### 1 [id number] #### [facility] [address] [place] [address] Extra Aaron 01-19-2025 WB Tube Collected Yes Invalid Interpretation Code [facility] Comment on above: Performed By: #### 1 [id number] #### [facility] [address] [place] [address] No Panel Informationon 11-03 Interpretation and review of laboratory results Normal [facility] RESULT 1 Negative Negatvie [facility] RESULT 2 [facility]at[facility] WITH PLATELET NO DI FFERENTIALon 08-30-2024 Erythrocyte distribution width (RBC) [Ratio] 12.6 % 11.0 - 15.0 % [facility] Hematocrit (Bld) [Volume fraction] 31.1 % Low 36.0 - 48.0 % [facility] Hemoglobin (Bld) [Mass/Vol] 10.3 g/dL Low 12.0 - 16.0 g/dL [facility] Interpretation and review of laboratory results Abnormal [facility] MCH (RBC) [Entitic mass] 29.2 pg 26.7 - 34.0 pg [facility] MCHC (RBC) [Mass/Vol] 33.1 g/dL 29.9 - 35.2 g/dL [facility] MCV (RBC) [Entitic vol] 88.1 fL 81.0 - 99.0 fL [facility] Platelet mean volume (Bld) [Entitic vol] 11 fL 9.5 - 13.5 fL [facility] PLT 279 [facility] RBC 3.53 Low [facility] TB WBC 12.7 High [facility] CLINISYNC [facility] Urinalysis macro (dipstick) panel (U)on 08-30-2024 Bilirubin, UA Negative Negative - 4(70) +++ mg/dL [facility] Blood, UA Positive Negative - 50 Brandon/mcL [facility] Clarity, UA Clear [facility] Color, UA Yellow [facility] Glucose, UA Negative Negative - 1999(110) ++++ mg/dL [facility] Interpretation and review of laboratory results Abnormal [facility] Ketones, UA Negative Negative - 160(16) ++++ mg/dL [facility] Leukocytes, UA Negative Negative - 500+++ Phil/mcL [facility] Nitrite, UA Negative Negative - Positive [facility] pH, UA 7 5 - 9 [facility] Protein, UA Negative Negative - 1999(20) ++++ mg/dL [facility] Spec Grav, UA 1.015 1 - 1.03 [facility] Urobilinogen, UA 0.2 0.2 - 12 mg/dL [facility] Urinalysis macro (dipstick) panel (U)on 08-16-2024 Bilirubin, UA Negative Negative - 4(70) +++ mg/dL [facility] Blood, UA Negative Negative - 50 Branodn/mcL [facility] Clarity, UA Clear [facility] Color, UA Yellow [facility] Glucose, UA Negative Negative - 1999(110) ++++ mg/dL [facility] Interpretation and review of laboratory results Abnormal [facility] Ketones, UA Negative Negative - 160(16) ++++ mg/dL [facility] Leukocytes, UA Positive Negative - 500+++ Phil/mcL [facility] Comment on above: small Nitrite, UA Negative Negative - Positive [facility] pH, UA 6.5 5 - 9 [facility] Protein, UA Negative Negative - 1999(20) ++++ mg/dL [facility] Spec Grav, UA 1.02 1 - 1.03 [facility] Urobilinogen, UA 0.2 0.2 - 12 mg/dL [facility] Urinalysis macro (dipstick) panel (U)on 08-03-2024 Bilirubin, UA Negative Negative - 4(70) +++ mg/dL [facility] Blood, UA Negative Negative - 50 Brandon/mcL [facility] Clarity, UA Clear [facility] Color, UA Yellow [facility] Glucose, UA Negative Negative - 1999(110) ++++ mg/dL [facility] Interpretation and review of laboratory results Normal [facility] Ketones, UA Negative Negative - 160(16) ++++ mg/dL [facility] Leukocytes, UA Negative Negative - 500+++ Phil/mcL [facility] Nitrite, UA Negative Negative - Positive [facility] pH, UA 5.5 5 - 9 [facility] Protein, UA Negative Negative - 1999(20) ++++ mg/dL [facility] Spec Grav, UA 1.025 1 - 1.03 [facility] Urobilinogen, UA 1.0 0.2 - 12 mg/dL [facility] Urinalysis macro (dipstick) panel (U)on 07-18-2024 Bilirubin, UA Negative Negative - 4(70) +++ mg/dL [facility] Blood, UA Negative Negative - 50 Brandon/mcL [facility] Clarity, UA Clear [facility] Color, UA Yellow [facility] Glucose, UA Negative Negative - 1999(110) ++++ mg/dL [facility] Interpretation and review of laboratory results Normal [facility] Ketones, UA Negative Negative - 160(16) ++++ mg/dL [facility] Leukocytes, UA Negative Negative - 500+++ Phil/mcL [facility] Nitrite, UA Negative Negative - Positive [facility] pH, UA 6.5 5 - 9 [facility] Protein, UA Negative Negative - 1999(20) ++++ mg/dL [facility] Spec Grav, UA 1.025 1 - 1.03 [facility] Urobilinogen, UA 0.2 0.2 - 12 mg/dL [facility] ALL CBC WITH AUTO DIFFon BASOPHILS ABSOLUTE AUTO 0 N [facility] Basophils/100 WBC (Bld) 0.3 % 0.2 - 2.0 % [facility] Eosinophils/100 WBC (Bld) 1.2 % 0.9 - 7.0 % [facility] Erythrocyte distribution width (RBC) [Ratio] 12.4 % 11.0 - 15.0 % [facility] Hematocrit (Bld) [Volume fraction] 30.7 % Low 36.0 - 48.0 % [facility] Hemoglobin (Bld) [Mass/Vol] 10.3 g/dL Low 12.0 - 16.0 g/dL [facility] IMMATURE GRANULOCYTES ABS AUTO 0.21 High [facility] Immature granulocytes/100 WBC (Bld) 1.7 % High 0.0 - 0.5 % [facility] Interpretation and review of laboratory results Abnormal [facility] LYMPHOCYTES ABSOLUTE AUTO 2.4 [facility] Lymphocytes/100 WBC (Bld) 19.3 % Low 20.5 - 60.0 % [facility] MCH (RBC) [Entitic mass] 30.9 pg 26.7 - 34.0 pg [facility] MCHC (RBC) [Mass/Vol] 33.6 g/dL 29.9 - 35.2 g/dL [facility] MCV (RBC) [Entitic vol] 92.2 fL 81.0 - 99.0 fL [facility] MONOCYTES ABSOLUTE AUTO 0.9 High [address] [facility] Monocytes/100 WBC (Bld) 7 % 1.7 - 12.0 % [facility] NEUTROPHILS ABSOLUTE AUTO 8.7 High [facility] Neutrophils/100 WBC (Bld) 70.5 % 43.0 - 75.0 % [facility] Platelet mean volume (Bld) [Entitic vol] 10.2 fL 9.5 - 13.5 fL [facility] TBH EO # 0.2 [facility] TB PLT [address] [facility] RBC 3.33 Low [facility] WBC 12.3 High [facility] Urinalysis macro (dipstick) panel (U)on 07-04-2024 Bilirubin, UA Negative Negative - 4(70) +++ mg/dL [facility] Blood, UA Negative Negative - 50 Brandon/mcL [facility] Clarity, UA Clear [facility] Color, UA Yellow [facility] Glucose, UA Negative Negative - 1999(110) ++++ mg/dL [facility] Interpretation and review of laboratory results Normal [facility] Ketones, UA Negative Negative - 160(16) ++++ mg/dL [facility] Leukocytes, UA Negative Negative - 500+++ Phil/mcL [facility] Nitrite, UA Negative Negative - Positive [facility] pH, UA 6 5 - 9 [facility] Protein, UA Negative Negative - 1999(20) ++++ mg/dL [facility] Spec Grav, UA 1.015 1 - 1.03 [facility] Urobilinogen, UA 0.2 0.2 - 12 mg/dL [facility] Urinalysis macro (dipstick) panel (U)on 06-19-2024 Bilirubin, UA Negative Negative - 4(70) +++ mg/dL [facility] Blood, UA Positive Negative - 50 Brandon/mcL [facility] Comment on above: trace-intact Clarity, UA Clear [facility] Color, UA Yellow [facility] Glucose, UA Negative Negative - 1999(110) ++++ mg/dL [facility] Interpretation and review of laboratory results Abnormal [facility] Ketones, UA Negative Negative - 160(16) ++++ mg/dL [facility] Leukocytes, UA Trace Negative - 500+++ Phil/mcL [facility] Nitrite, UA Negative Negative - Positive [facility] pH, UA 6.0 5 - 9 [facility] Protein, UA Negative Negative - 1999(20) ++++ mg/dL [facility] Spec Grav, UA 1.020 1 - 1.03 [facility] Urobilinogen, UA 0.2 0.2 - 12 mg/dL [facility] Coding Summaryon 05-30-2024 Coding Summary HTMLBase 64 PmaxkdtiIBt9xYh+PGhlYWQ+PE 1DICPrW03mgZKstH7lY0DJUDgQ ZfxrCKVZNHzLJwQxxgHfPB6rrH NjZXJu IC8+UO6kBSHlRiwlgOBud9M8jE M2W66wff3aVFsvlEV1NNFjKeAn dviox7rwvSr0CBslXhzyRlVb ORLlzW49JZS1kJ46Wm97fDXblC Zpj5ganQq5CvLnVPGpIRZ4zLbq BBwjo2SbOQGlN61gfOQpa5P2 WMVliCfbnDSmJwBxbFK5gM6oOK jqplexe7vgahdqTol5ij65zSZt x4S4eOF6H5CfxlA9CLKrhSTs MkcosBWXqP0bmbvbu5tuacrgXs TiUKBlMFb2ULd7YIOyqBnqPzIy DE19JMK0DZOcxcYoL5UnSCOl hGidXjK7n8N3Uh9SV9BCDxzkT2 VNTUFSWTwvdGQ+BR80mk27N1Ps DulvEhn2CSWhHRM6qHN2iF4e NLKwBSpog7K0kVE9U4PnilIibt 6tc8kxPNQbEVbcW97isQIdg3I3 GDTnuJI3WGPfxHxhDhLarE57 Oyc+DKSjiCsoj1RkPkylf0jfn3 qaxIg8FxhwVRJxrzTcgDvmAGY6 x3GlGn1qNHXphDU4zWA2oN3j XfUbJjK6XIuuE889DaQtaCPuZb kwL79vC6NqaPA+MMRvWrc5IKEs uPeaXS3sU5VeIELcrzgjwLSg dWdbMM1uBTUbcwukENRtkB3nTT XxS0b8BsGtNvL4VGyzG2SvVNNm wnijXm60oK7rSgTtVrS2XZta S9UqmbS8IRMjhQOcFBsmNBO4J3 6za9R6SWCcCLUyTVC4tSP2hI0k bGlnbjogbGVmdDsgdmVydGlj RZnvTXlqP104QWNwcXzoFuOlMS luZyBEYXRlOiAgMDkvMTAvMjAy NDwvdGQ+AYDlSJH1xYljSGAs eGSoVSctNm9hgOfwsLvxRB4kEN HnqdxnNRFhjA6cDHGedBOixOor AM2rPTDsiviap486FeSgXIP7 NLIhdIVhZ3WkhQ9yQxOaZLXdJL BcM7YysYOrQRbfX532DFglSeY2 DVLcgaOcQ8XiGZDbtTduOhS0 n3J4As8Qo1YcmvjcV4KykIUzSd CcHdomTPq5X5JcRbpevRV+PC90 CPJpTG89IDa2FEA7sFhjVMkx XGCaO5CldP0pKiArNDScXQRmCt c+PHRhYmxlIHdpZHRoPScxMDAl EeZbjFmeGN1tNg9sNTVhBBJo oAbrvTUiWjTaj9ckQYMkLGewNT 0kwUqgZ6NlcCW1VJVkf5z6Gb90 K73cZ1SdnXF+MCOqrHW1jXL7 mH4aEdVoEkX7IColC252QcHgeT XwToehv0wtl3ykkGl1JmV8GSOi jqXuzPhxFCE2x7CwMk24B85f IHdpZHRoPSIxNSUiIHZhbGlnbj 2bpD2oJj2+COYqlPS4wDH4cO2b YcBnKyP7QOnvU688OxHpdMYj Ubjai0xtm0whoSm8SbFcWURaxo HazFxvIRR8l7LeDb94X8FfbWzf e3ThEtb4sh92lGHwj9E5bCP9 C1KlFQMqxelduAOazYvbKP7yNO LaajwxFDKgfE7mVPHfG9r5AqXe XuA1QLmcB6EaiyE3OTLuhDQl GGFvrZYEfF4qybvdy1ksblerRt RgPDShNFk9FQv1ZNLhxAjvUqDu DIM1IxE0JMD0bXFzvW9vfMsl okkvuL5qTmd+TQF3lHEriNPAZG 1lOjwvdGQ+EEBoYQA0zXntPDng TTDaiZ3eEZGwF8u8UsGeDkB5 TFkrH4ElqgN6VVPfyVOrYVVshG SAoU8mvzwij0iralgwQlNaCCMh LOu3XLq6HEMunSsnYmAvTGV2 UuC0ZMV7ySFhcI4rpTkwhdwyiH 9wOyc+JvzsfZqiEZG5FXz0G3Dx Jyx0XFDdyTfkVK2bzCKaXPeu Oo2pdBkrfIegOP5eNPXoscmkz3 50RsRue0hwQIGntAQbMUssCEK8 C85eg6S1OUYwWRRfGSQ8nFY4 kI6byVnqstlniGOtmSeahlPowG mpCWiyPPsgP217VDQwtWugDpWf YYl4V1XoEts8NRHblZkeNQ4p sUIeVHkjNb6nuYhblCvwVF3sRB Uagoefp470FzHog6jtXEIjqPAd DPtsTKD8R17zf7B3XFTsJOXm IKE4cKI0pG3hjLzdmzlbfRTejU jmahPemKcnJGtaTVlkH120XAKd zAubOvZbjEv0N9KhFtt5DDFn zOuwUQ2bnLWqVUozVh4tpAaowB fhWM1gDRYwnmzoy535EeMbd5ny KWRmtIJfMMuzKYD1K25gc2R6 JHWuXJIzKCZ7bUT5uV1laHglvk ogbGVmdDsgdmVydGljYWwtYWxp N376MBKoeSynOsEanUiuhmQk DBrtXPz9Q5UmDzoqpQP+PC90YW YwOG68oUPpiUNnz3gsaLe0TnYu QIFfFMS5gNcaRAbxe3GlCXJq C42yxOHuo6X7QYTciRfswVJpQr IjfYH6rR2kGMpikqufe4dmlsvv Kyfkb6emyx61rI46Y39sXIkc ETErRUIrMYJoJNWbtEyelm5dfM 9wIi8+XCFkyWJ4xCT6aQ3kXZNq AvN9BGnnW148ThEuuMDbEdvh v2tyg7bhuIh2AbQ4FDNcmbSlrU wpICF3e3BhOm02E58cVGviQABu THIiTCKdGHDvzOitlm3nqN4l Ii8+UFKegIQ5iWR3wI1eZnRhNp Z4HTiyY407WwAjnBHrPzsdZ60a X6ArfZG+BOGpSol2TQXobXyz MY0xmSQgFXncSr4fEYB8EwIcYs XnRJczU8RhNMNyuyizbtkxvRO0 IIUeVFGqmT72Vm0uvRkaARKr mBOAiK3humbvm9ajkujdZiHxJU AkGXu3WHt1TQGrvFoqIfTtFZF1 NmE7PAJ7rXJysI7hrKbhkdjf gY0iU6JhRYJtioiqWb16kM3eHa KhNlK9TMecFul+Uy0EZLdtW4XB VExZTiBMRUlHSDwvdGQ+PHRk CNI0hCvyKQbyCXLuxS1lMIUqW1 y2WpEuNiV9XFdiE6BoQWLtxzen Im20wU7cFiBeXtU8GRyuM3Wz snL4EMEdiGCwYQdbINS7V48yk7 R0EDQuHOElFKX1vIS3lC7diGko bjogbGVmdDsgdmVydGljYWwt RDhyQ160XWMgyVxbNgV4XgFxVs N2NSn7J6BjUsw8OQOwhYjhGC1y kXYjBDtxGx2iuGnpxScsEZ7e GBSulhpoNJYkmN3qBSUawPErcI cvDM1bSATjzpzyy991EvAoFBN1 UHWphELmO4IxrA4bBiVgCEUi SVIxV2HzgRPcGCkvE728AKlnPn J5RFMiggKvN0GhMGTbaKnzAuV5 q0F1Yz9yRVADDYRutmutfIX+ BLBzNGH1oLatYQcyTZWrlO5iQK InQ0y5CaRkLbG3VIstW4TqGICk uqgnIx33gI6oDvUlAqQ9SIkf S6DtrhC8QHUqhGMbXMevSVZ1D8 9rb5F3AUQvXLTzAQQ9rNH4dN0q bGlnbjogbGVmdDsgdmVydGlj SUqmMQomW852ZLCpqAhhIsSUKM FMRTwvdGQ+FFHnZTB8jRizASlk DKBtlF6oTUCpU3k3FgItDcX1 NHzzA9QbBROoilreSy76rJ9pLu XmFaM6JNwoN8TqvrE9NIKedCBl WUbiMMD0E85kg7E6VKOhOKXy FYR6kAJ4oI7qoJbxcsxhsRWfgB hjanTyiLhmGDyvQEzbF690ARIb nIofTy7ALG06JW87X8RfFehc dGFibGU+PHRhYmxlIHdpZHRoPS esTGKqStVpvFllYA5eEg8rICUh RJHlvHgxbHMwGsJgr1biIAAy FDqkXH2yhDfnS2ZstAM8JQSla9 n0Zb01X29mL6BhwSS+PGNvbCB3 kFQ8yH6pPvOoNuQ1KEquH698 VuTmqZPvZkydz6ebd3eabYp1Ue FgFOOqytYqkEohGHF1k5LjTp76 M07rZDjtOQGaHHWkYAHtLEFd hXrruh1ptC7wOh7+RJAtoYG3gG T0aY0tLoDuFpM3AZppM731WfRz oSMqEnelX99dI0KcsTV+PHRy Cbw8AVJumLjkTY6gyPGbEHuePw 4bZNH9PrZzXeOwYCbjF1SyEYNq uilwvrjhvRR4NQVpPLXckN43 Da2voTvfCv1uOBLgFWM0EYImzP NnN5UasK6aJfKmTWBjTJOpM2Qt cXPzYOveR269TGrvXnE5QNBv ypZeV2RbGRCxqIskPjO5r0K3Ng 9JkZrlkQHkIB6bIeRbTTt1X2Xd Uiw8PVByrQreDY2bsVNlYGwj Ug6aaVyvjOkjMZ8cXVBtkcvuv1 69GjHjz3thEANwoPNmMAcdIXO0 X49em9L5YBWhVPMdTWV8hYG3 rP8jnSexphjtdRLdhWakepKaoU zgRZplDUffH550UIHvpTehBlJE Oxd0X7UcGmg0CJFevVbxFV4m zKGwASzaRu7cvQveqMzfMC5uGM Wsjpgcw999NlAwa0laIAKgnWMr DMzuEPT3J21cs8O9DYMyCTSe VQR3aMQ5uI7skUyyvwczsHQhsE qcrqAxzNwcHXouJRleK535EFLs uZtlTg9UPnw9C6HwAzv2JOOe zQdnRI7wwFAsRShbDs7vmElkeM itVP9jWVLqvfupi764UtKqp9cs JJEadZYwWQimTOF3L30cl5G7 CLEfIWWnWQA4xIG3wY3cdAcoip ogbGVmdDsgdmVydGljYWwtYWxp V658CWXxvNqyLhCdqJTpWlvz dGQ+WJ89xw03V9QhSqtyJvz9WD CmXHW1pVY6cJ1wMFCrYKijc2V5 wGR6D3VdxuIiyj4hq3coSZUo ZTo (more content not included)... Normal [facility] No Panel Informationon 05-26 Glucose, UA Negative Negative - 1999(110) ++++ mg/dL [facility] Protein, UA Negative Negative - 1999(20) ++++ mg/dL [facility] Healthcare [facility] Bacteria [Presence] in Urine by AutomatedOrdered By: Andrzej Grace on 05-23-2024 Bacteria Auto Ql (U) 1+ [HPF] High None Seen [facility] Bilirubin Test strip Ql (U)O rdered By: Andrzej Grace on 05-23-2024 Bilirubin Ql (U) Negative Negative [facility] Color of Urine by AutoOrdere d By: Andrzej Grace on 05-23-2024 Color (U) Light-yellow Normal Yellow [facility] Comment on above: Order Comment: Name Collection Type:: Clean-Voided Midstream Performed By: #### A DDONUAPLUS #### [facility] [address] [place] [address] Crystals.amorphous [Presence ] in Urine by Computer assisted methodOrdered By: Andrzej Grace on 05-23-2024 Crystals.amorphous Computer assisted Ql (U) 1+ [HPF] [facility] Dipstick and Microscopicon 0 05-23-2024 Amorphous Crystal,Urine 1+ Normal [facility] Comment on above: Order Comment: Name Collection Type:: Clean-Voided Midstream Performed By: #### A DDONUAPLUS #### [address] Bacteria,Urine 1+ High None Seen [facility] Comment on above: Order Comment: Name Collection Type:: Clean-Voided Midstream Performed By: #### A DDONUAPLUS #### [place] [address] [place] Bilirubin,Urine Negative Normal Negative [facility] Comment on above: Order Comment: Name Collection Type:: Clean-Voided Midstream Performed By: #### A DDONUAPLUS #### [address] Glucose Ql (U) Normal Normal Normal [facility] Comment on above: Order Comment: Name Collection Type:: Clean-Voided Midstream Performed By: #### A DDONUAPLUS #### [facility] [address] [place] [address] [place] Hyaline Casts,Urine None Normal 0-8 [facility] Comment on above: Order Comment: Name Collection Type:: Clean-Voided Midstream Performed By: #### A DDONUAPLUS #### [place] [address] [place] Mucus,Urine Rare Normal [facility] Comment on above: Order Comment: Name Collection Type:: Clean-Voided Midstream Result Comment: PERF ORMED BY: [place] [address] PATHOLOGIST [employer] DEVELOPER SADAF YOUNGBLOOD M.D. Performed By: #### A DDONUAPLUS #### [place] [address] [place] Nitrite,Urine Negative Normal Negative [facility] Comment on above: Order Comment: Name Collection Type:: Clean-Voided Midstream Performed By: #### A DDONUAPLUS #### [address] Occult Blood,Urine Negative Normal Negative [facility] Comment on above: Order Comment: Name Collection Type:: Clean-Voided Midstream Result Comment: PERF ORMED BY: [place] [address] PATHOLOGIST [employer] DEVELOPER SADAF YOUNGBLOOD M.D. Performed By: #### A DDONUAPLUS #### [place] [address] [place] Protein,Urine Negative Normal Negative [facility] Comment on above: Order Comment: Name Collection Type:: Clean-Voided Midstream Performed By: #### A DDONUAPLUS #### [place] [address] [place] RBC,Urine 1-2 Normal 0-4 [facility] Comment on above: Order Comment: Name Collection Type:: Clean-Voided Midstream Performed By: #### A DDONUAPLUS #### [place] [address] [place] Specificy [place],Urine 1.013 Normal 1.00 1-1.03 0 [facility] Comment on above: Order Comment: Name Collection Type:: Clean-Voided Midstream Performed By: #### A DDONUAPLUS #### [place] [address] [place] Squamous Epithelial Cell,Urine 10-19 High 0-2 [facility] Comment on above: Order Comment: Name Collection Type:: Clean-Voided Midstream Performed By: #### A DDONUAPLUS #### [address] Urobilinogen,Urine Normal Normal Normal [facility] Comment on above: Order Comment: Name Collection Type:: Clean-Voided Midstream Performed By: #### A DDONUAPLUS #### [address] WBC,Urine 3-4 Normal 0-4 [facility] Comment on above: Order Comment: Name Collection Type:: Clean-Voided Midstream Performed By: #### A DDONUAPLUS #### [address] Epithelial cells.squamous [# /area] in Urine sediment by Automated countOrdered By: Andrzej Grace on 05-23-2024 Epithelial cells.squamous Auto (Urine sed) [#/Area] 10-19 [HPF] High 0-2 [facility] Erythrocytes [#/area] in Uri ne sediment by Automated countOrdered By: Andrzej Grace on 05-23-2024 RBC Auto (Urine sed) [#/Area] 1-2 [HPF] 0-4 [facility] Fibronectinon 05-23-20 24 Fibronectin Negative Normal Negative [facility] Comment on above: Order Comment: Comme nt patients 22 - 34 6/7 weeks prior to vaginal exam Result Comment: PERF ORMED BY: [place] [address] PATHOLOGIST JDE DEVELOPER SADAF YOUNGBLOOD M.D. Performed By: #### F FN #### [address] fibronectinOrdered By: Andrzej Grace on 05-23-2024 Fibronectin. (Vag fld) [Mass/Vol] Negative Negative [facility] Fibronectin. Ql (Vag fl d)on 05-23-2024 FIBRONECTIN Negative Negative [facility] Comment patients 22 - 34 6/7 weeks prior to vaginal exam [facility] Glucose [Mass/volume] in Uri ne by Test stripOrdered By: Andrzej Grace on 05-23-2024 Glucose Test strip (U) [Mass/Vol] Normal mg/dL Normal [facility] Hemoglobin Test strip Ql (U) Ordered By: Andrzej Grace on 05-23-2024 Hemoglobin Ql (U) Negative Negative [facility] Hyaline casts [#/area] in Ur ine sediment by Automated countOrdered By: Andrzej Grace on 05-23-2024 Hyaline casts Auto (Urine sed) [#/Area] None [LPF] 0-8 [facility] Ketones [Presence] in Urine by Test stripOrdered By: Andrzej Grace on 05-23-2024 Ketones Ql (U) Negative Normal Negative [facility] Comment on above: Order Comment: Name Collection Type:: Clean-Voided Midstream Performed By: #### A DDONUAPLUS #### [facility] [address] [place] [address] [place] Leukocyte esterase [Presence ] in Urine by Test stripOrdered By: Andrzej Grace on 05-23-2024 Leukocyte esterase Test strip Ql (U) Negative Normal Negative [facility] Comment on above: Order Comment: Name Collection Type:: Clean-Voided Midstream Performed By: #### A DDONUAPLUS #### [facility] [address] [place] [address] [place] Leukocytes [#/area] in Urine sediment by Automated countOrdered By: Andrzej Grace on 05-23-2024 WBC Auto (Urine sed) [#/Area] 3-4 [HPF] 0-4 [facility] Mucus [Presence] in Urine by AutomatedOrdered By: Andrzej Grace on 05-23-2024 Mucus Auto Ql (U) Rare [LPF] [facility] Nitrite Test strip Ql (U)Ord ered By: Andrzej Grace on 05-23-2024 Nitrite Ql (U) Negative Negative [facility] Protein Test strip (U) [Mass /Vol]Ordered By: Andrzej Grace on 05-23-2024 Protein (U) [Mass/Vol] Negative Negative [facility] Specific gravity Test strip (U) [Rel density]Ordered By: Andrzej Grace on 05-23-2024 Specific gravity (U) [Rel density] 1.013 1.001-1.03 0 [facility] Urinalysis complete panel (U )on 05-23-2024 Appearance (U) Cloudy Critically abnormal Clear [facility] BILIRUBIN,URINE Negative Negative [facility] Color (U) Light-Yellow Yellow [facility] Glucose Ql (U) Normal Normal [facility] Interpretation and review of laboratory results Abnormal [facility] Ketones Ql (U) Negative Negative [facility] Leukocyte esterase Test strip Ql (U) Negative Negative [facility] NITRITE,URINE Negative Negative [facility] OCCULT BLOOD,URINE Negative Negative [facility] pH (U) 6.5 [pH] 5.0 - 9.0 [facility] PROTEIN,URINE Negative Negative [facility] SPECIFICY GRAVITY,URINE 1.013 1.00 1 - 1.030 [facility] UROBILINOGEN,URINE Normal Normal [facility] Name Collection Type :: Clean-Voided Midstream [facility] Urine appearanceOrdered By: Andrzej Grace on 05-23-2024 Appearance (U) Cloudy Critically abnormal Clear [facility] Comment on above: Order Comment: Name Collection Type:: Clean-Voided Midstream Performed By: #### A DDONUAPLUS #### [facility] [address] [place] [address] Urobilinogen Test strip (U) [Mass/Vol]Ordered By: Andrzej Grace on 05-23-2024 Urobilinogen (U) [Mass/Vol] Normal mg/dL Normal [facility] pH of Urine by Test stripOrd ered By: Andrzej Grace on 05-23-2024 pH (U) 6.5 [pH] Normal 5.0-9.0 [facility] Comment on above: Order Comment: Name Collection Type:: Clean-Voided Midstream Performed By: #### A DDONUAPLUS #### [facility] [address] [place] [address] ED Clinical Summaryon 2023 ED Clinical Summary [facility] ? Urgent Care [address] [id number] Clinical Summary PERSON INFORMATION Name: LE ROCHA Age: 23 Years Sex: FEMALE : 2000 MRN: Acct#: Visit Reason: UC - Dental Pain; DENTAL PAIN Arrival: 05/22/2024 13:14:06 Discharge: 05/22/2024 14:17:00 LOS: 000 01:03 Check In: 05/22/2024 13:14:06 Checkout: 05/22/2024 14:17:00 Address: [address] [place] [address] PCP: Raeann Jang MSN PUBLIC SERVICE REPRESENTATIVE PROVIDER INFORMATION Provider Role Assigned Unassigned Yon [...] Home PATIENT EDUCATION INFORMATION Instructions: Dental Pain, Sbxz-bx-Cpfi; Dental Pain, Rgif-ud-Klic Follow-Up: With: Address: When: Raeann Jang MSN PUBLIC SERVICE REPRESENTATIVE [address] [place] [phone] Within 3 to 5 days Comments: [...] understanding of instructions given Comment: Normal [facility] ED Patient Summaryon 024 ED Patient Summary [facility] ? Urgent Care [address] [place], [place] [id number] PATIENT DISCHARGE INSTRUCTIONS Patient Information Name: LE ROCHA Age: 23 Years Date of : 2000 Reason For Visit: UC - Dental Pain; DENTAL PAIN Arrival Time: 05/22/2024 13:14:06 Primary Care Physician: Raeann Jang MSN PUBLIC SERVICE REPRESENTATIVE Attending Physician: Yon Templeton CNP Comment: Patient Education With: Address: When: Raeann Jang MSN PUBLIC SERVICE REPRESENTATIVE [address] [place] [address] Within 3 to 5 days [...] these instructions at home: Medicines ? Take kioh-lkz-vfygyou and prescription medicines only as told by [...] to the area. Brushing your teeth ? [place] your teeth twice a day using a [...] when you eat or drink. ? Take appb-ovw-wmkblve and prescription medicines only as told by your dentist. ? Watch your dental pain for any changes. Let your dentist know if symptoms get worse. This information is not intended to replace advice given to you by your health care provider. Make sure you discuss any questions you have with your health care provider. Document Revised: 06/11/2021 Document Reviewed: 06/11/2021 [employer] Patient Education ? 2023 [employer] Dental Pain Dental pain is often a sign that something is wrong with your teeth or gums. You can also mandel (more content not included)... Normal [facility] [address] 024 Urgent Care Record [facility] ? Urgent Care [address] [place] [address] PATIENT DISCHARGE INSTRUCTIONS Patient Information Name: LE ROCHA Age: 23 Years Date of : 2000 Reason For Visit: UC - Dental Pain; DENTAL PAIN Arrival Time: 05/22/2024 13:14:06 Primary Care Physician: Raeann Jang MSN PUBLIC SERVICE REPRESENTATIVE Attending Physician: Yon Templeton CNP Comment: Visit Diagnosis: Diagnoses This Visit Dental infection (K04.7) Impacted tooth (K01.1) UC - Dental Pain ([id number]) If you received any narcotics, sedation, or [...] documents With: Address: When: Raeann Jang MSN PUBLIC SERVICE REPRESENTATIVE [address] [place] [phone] Medication Information: The exam and treatment you received today in the [facility] were for an urgent problem and are not intended as complete care. It is important for you to follow up with a doctor, nurse practitioner, or physician?s assistant gm of content & delivery for ongoing care. If your symptoms become [...] we can reach you if necessary. [facility] has provided you with a complete list of medications post discharge. 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 Any specific questions regarding your chronic medications and dosages should be discussed with your primary care physician(s) and/or pharmacist. New Medications [facility], [address], [place] [id number], [phone] amoxicillin (amoxicillin 500 mg oral capsule) 1 [...] these instructions at home: Medicines ? Take emec-nzf-gbckkbc and prescription medicines only as told by your dentist. ? If you were prescribed an antibiotic medicine, take it as told by your dentist. Do not stop taking it even if you start to feel better. Eating and drinking D (more content not included)... Normal [facility] Quantiferon-TB Plus (Client Incubated)on 04-17-2024 Gamma interferon background IA Qn (Bld) 3.22 International_Unit/mL Invalid Interpretation Code [facility] Comment on above: Performed By: #### 1 [id number] #### [facility] [address] [place] [address] M. tuberculosis stim IFN-g by CD4+ CD8+ T-cells corrected for background Qn (Bld) 0.00 International_Unit/mL Invalid Interpretation Code [facility] Comment on above: Performed By: #### 1 [id number] #### [facility] [address] [place] [address] M. tuberculosis stim IFN-g by CD4+ T-cells corrected for background Qn (Bld) 0.00 International_Unit/mL Invalid Interpretation Code [facility] Comment on above: Performed By: #### 1 [id number] #### [facility] [address] [place] [address] M. tuberculosis stim IFN-g Ql (Bld) [Interp] Negative Invalid Interpretation Code Negative [facility] Comment on above: Result Comment: [...] interferon gamma. Chemiluminescence immunoassay methodology Performed at: [address] [id number] PhD Calvin Milner Performed By: #### 1 [id number] #### [facility] [address] [place] [address] Mitogen stimulated gamma interferon corrected for background Qn (Bld) >10.00 Invalid Interpretation Code [facility] Comment on above: Performed By: #### 1 [id number] #### [facility] [address] [place] [address] Service comment (Unsp spec) [Interp] Comment Invalid Interpretation Code [facility] Comment on above: Result Comment: [...] for the test. Performed By: #### 1 [id number] #### [facility] [address] [place] [address] Hep Bs Abon 04-15-2024 HBV surface Ab Ql (S) Reactive Invalid Interpretation Code [facility] Comment on above: Result Comment: Non Reactive: Inconsistent with immunity, less than 10 mIU/mL Reactive: Consistent with immunity, greater than 9.9 mIU/mL Performed at: [address] [id number] PhD Calvin Milner Performed By: #### 2 [id number] #### [facility] [address] [place] [address] Measles/Mumps/Rubella Immuni tyon 04-15-2024 MeV IgG IA Qn (S) 26.7 A unit/mL Invalid Interpretation Code Immune >16.4 [facility] Comment on above: Result Comment: Nega tive <13.5 Equivocal 13.5 - 16.4 Positive >16.4 Presence of antibodies to Rubeola is presumptive evidence of immunity except when acute infection is suspected. Performed By: #### 3 [id number] #### [facility] [address] [place] [address] MuV IgG IA Qn (S) 209.0 A unit/mL Invalid Interpretation Code Immune >10.9 [facility] Comment on above: Result Comment: Nega tive <9.0 Equivocal 9.0 - 10.9 Positive >10.9 A positive result generally indicates past exposure to Mumps virus or previous vaccination. Performed at: @[facility] [id number] PhD Calvin Milner Performed By: #### 3 [id number] #### [facility] [address] [place] [address] Rubella virus IgG Qn (S) 4.08 [IU]/mL Invalid Interpretation Code Immune >0.99 [facility] Comment on above: Result Comment: Non- immune <0.90 Equivocal 0.90 - 0.99 Immune >0.99 Performed By: #### 3 [id number] #### [facility] [address] [place] [address] Varic IgGon 04-15-2024 VZV IgG IA Qn (S) 514 Invalid Interpretation Code Immune >165 [facility] Comment on above: Result Comment: Nega tive <135 Equivocal 135 - 165 Positive >165 A positive result generally indicates exposure to the pathogen or administration of specific immunoglobulins, but it is not indication of active infection or stage of disease. [facility]formed at: [facility] [id number] PhD Calvin Milner Performed By: #### 1 [id number] #### [facility] [address] [place] [address] BioFire Detectedon BioFire Detected Detected Critically abnormal Not Detecte [facility] Comment on above: Result Comment: This is a duplicate RP2.1 COVID (PCR) result to be used for statistical tracking purpose only. PERFORMED BY: [facility] [address] [place] [address] PATHOLOGIST JDE DEVELOPER SADAF YOUNGBLOOD M.D. Performed By: #### R ODALIS PANEL UPP., BIOFIRECOVDET #### [facility] [address] COVID-19 Detected/Not Detect edOrdered By: Ginny Quach on 03-30-2024 SARS-CoV-2 (COVID-19) RNA KYLAH+non-probe Ql (Nph) Detected Abnormal Not Detecte [facility] Comment on above: This is a [...] A H3 Blank Space -- PERFORMED BY: [facility] [address] [place] [address] PATHOLOGIST JDE DEVELOPER SADAF YOUNGBLOOD M.D. Normal [facility] Comment on above: Performed By: #### R ODALIS PANEL UPP., BIOFIRECOVDET #### [facility] [address] Respiratory pathogens DNA an d RNA panel - Nasopharynx by KYLAH with non-probe detectionOrdered By: Ginny Quach on 03-30-2024 Respiratory pathogens DNA and RNA panel KYLAH+non-probe (Nph) [facility] ED Clinical Summaryon 2022 ED Clinical Summary [facility] ? Urgent Care [address] [place], [place] [id number] Clinical Summary PERSON INFORMATION Name: LE ROCHA Age: 23 Years Sex: FEMALE : 2000 MRN: Acct#: Visit Reason: Medical screening exam; OTTERBEIN PHYSICAL Arrival: 09/02/2023 11:23:52 Discharge: 09/02/2023 12:23:00 LOS: 000 01:00 Check In: 09/02/2023 11:23:52 Checkout: 09/02/2023 12:23:00 Address: [address] [place] [address] PCP: Provider, Unlisted PROVIDER INFORMATION Provider Role Assigned Unassigned Osiris MARIN, Jessica ED Nurse 09/02/2023 11:28:54 09/02/2023 11:32:29 Tyler Armstrong PA-C ED PA 09/02/2023 11:34:50 Humberto Allison MA ED Nurse 09/02/2023 11:37:10 VITALS INFORMATION [...] understanding of instructions given Comment: Normal [facility] ED Patient Summaryon 023 ED Patient Summary [facility] ? Urgent Care [address] [place] [address] PATIENT DISCHARGE INSTRUCTIONS Patient Information Name: LE ROCHA Age: 23 Years Date of : 2000 Reason For Visit: Medical screening exam; OTTERBEIN PHYSICAL Arrival Time: 09/02/2023 11:23:52 Primary Care Physician: Provider, Unlisted Attending Physician: Tyler Armstrong PA-C Comment: Patient Education Medication Information: The exam and treatment you received today in the [facility] were for an urgent problem and are not intended as complete care. It is important for you to follow up with a doctor, nurse practitioner, or physician?s assistant gm of content & delivery for ongoing care. If your symptoms become [...] we can reach you if necessary. [facility] Emergency Department has provided you with a complete list of medications post discharge. 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 Any specific questions regarding your chronic medications and dosages should be discussed with your primary care physician(s) and/or pharmacist. Visit Information Visit Diagnosis: Diagnoses This Visit Medical screening exam ([id number]) If you received any narcotics, sedation, or [...] documents Reason for Visit: Medical Screening Exam. [place] Physical. Allergies: Substance Reaction Symptoms Type Comments [...] for Disease Control and Prevention May 2014 [facility] Urgent Care Note- Provideron 09-02-2023 Urgent Care Note- Provider Patient: LE ROCHA Age: 23 years Sex: FEMALE : 2000 Associated Diagnoses: None Author: Tyler Armstrong PA-C Basic Information Additional information: Chief Complaint from Nursing Triage Note : Chief Complaint 09/02/2023 11:54 EST Chief Complaint Medical Screening Exam. [place] Physical. . History of Present Illness Patient [...] 12:03 EST] Tyler Armstrong PA-C Normal [facility] [place] 023 Urgent Care Record [facility] ? Urgent Care [address] [place] [address] PATIENT DISCHARGE INSTRUCTIONS Patient Information Name: LE ROCHA Age: 23 Years Date of : 2000 Reason For Visit: Medical screening exam; JULIET PHYSICAL Arrival Time: 09/02/2023 11:23:52 Primary Care Physician: Provider, Unlisted Attending Physician: Tyler Armstrong PA-C Comment: Visit Diagnosis: Diagnoses This Visit Medical screening exam ([id number]) If you received any narcotics, sedation, or [...] and treatment you received today in the [facility] were for an urgent problem and are not intended as complete care. It is important for you to follow up with a doctor, nurse practitioner, or physician?s assistant gm of content & delivery for ongoing care. If your symptoms become [...] so we can reach you if necessary. [facility] has provided you with a complete list of medications post discharge. 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 and for further instruction [...] for Disease Control and Prevention May 2014 [facility] Choriogonadotropin.beta subu nit [Units/volume] in Serum or PlasmaOrdered By: Raeann Jang on 08-19-2023 HCG.beta subunit Qn 0.75 m[IU]/mL [facility] Comment on above: Approximate Approxim ate hCG Gestational Age Range (mIU/ml) (weeks)0.2-1 5-50 1-2 50-500 2-3 100-5,000 3-4 500-10,000 4-5 1,000-50,000 5-6 10,000-100,000 6-8 15,000-200,000 8-12 10,000-100,000 HCG.beta subunit Qn Negative [facility] COVID-19 Detected/Not Detect edOrdered By: Raeann Jang on 08-10-2023 SARS-CoV-2 (COVID-19) RNA KYLAH+non-probe Ql (Nph) Not detected Not Detecte [facility] Comment on above: This is a duplicate RP2.1 COVID (PCR) result to be used for statistical tracking purpose only. Respiratory pathogens DNA an d RNA panel - Nasopharynx by KYLAH with non-probe detectionOrdered By: Raeann Jang on 08-10-2023 Respiratory pathogens DNA and RNA panel KYLAH+non-probe (Nph) [facility] Alanine aminotransferase [En zymatic activity/volume] in Serum or PlasmaOrdered By: Raeann Jang on 07-20-2023 ALT [Catalytic activity/Vol] 10 U/L 7-52 [facility] Albumin [Mass/volume] in Ser um or Plasma by Bromocresol green (BCG) dye binding methoOrdered By: Raeann Jang on 07-20-2023 Albumin BCG dye [Mass/Vol] 4.5 g/dL 3.5-5.7 [facility] Alkaline phosphatase [Enzyma tic activity/volume] in Serum or PlasmaOrdered By: Raeann Jang on 07-20-2023 ALP [Catalytic activity/Vol] 63 U/L 34-104 [facility] Aspartate aminotransferase [ Enzymatic activity/volume] in Serum or PlasmaOrdered By: Raeann Jang on 07-20-2023 AST [Catalytic activity/Vol] 16 U/L 13-39 [facility] Basophils Auto (Bld) [#/Vol] Ordered By: Raeann Jang on 07-20-2023 Basophils (Bld) [#/Vol] 0.0 10*3/uL 0.0-0.2 [facility] Basophils/100 WBC Auto (Bld) Ordered By: Raeann Jang on 07-20-2023 Basophils/100 WBC (Bld) 0.3 % . [facility] Bilirubin.total [Mass/volume ] in Serum or PlasmaOrdered By: Raeann Jang on 07-20-2023 Bilirubin [Mass/Vol] 1.7 mg/dL 0.3-1.0 [facility] Comment on above: Samples from patient s who have taken Naproxen have shown spurious elevation in Total Bilirubin levels. A metabolite of Naproxen, O-desmethylnaproxen, has been shown to interfere with the Radhika method for measuring Total Bilirubin. C reactive protein [Mass/vol ume] in Serum or PlasmaOrdered By: Raeann Jang on 07-20-2023 CRP [Mass/Vol] 0.8 mg/dL 0.0-0.5 [facility] Calcium [Mass/volume] in Ser um or PlasmaOrdered By: Raeann Jang on 07-20-2023 Calcium [Mass/Vol] 9.6 mg/dL 8.6-10.3 [facility] Carbon dioxide, total [Moles /volume] in Serum or PlasmaOrdered By: Raeann Jang on 07-20-2023 CO2 [Moles/Vol] 26.8 mmol/L 21.0-31.0 [facility] Chloride [Moles/volume] in S ulises or PlasmaOrdered By: Raeann Jang on 07-20-2023 Chloride [Moles/Vol] 106 mmol/L 98-107 [facility] Cholesterol [Mass/volume] in Serum or PlasmaOrdered By: Raeann Jang on 07-20-2023 Cholesterol [Mass/Vol] 148 mg/dL 140-200 [facility] Comment on above: Chol less than 200 m g/dl low riskChol 201-239 mg/dl borderline riskChol 240 mg/dl and greater high risk Cholesterol in LDL Calc [Mas s/Vol]Ordered By: Raeann Jang on 07-20-2023 Cholesterol in LDL [Mass/Vol] 86 mg/dL 0-100 [facility] Comment on above: LDL ATP III CLASSIFI CATIONLDL less than 100 mg/dL OptimalLDL 100-129 mg/dL Near or above optimalLDL 130-159 mg/dL Borderline highLDL 160-189 mg/dL HighLDL greater than 189 mg/dL Very high Cholesterol in VLDL Calc [Ma ss/Vol]Ordered By: Raeann Jang on 07-20-2023 Cholesterol in VLDL [Mass/Vol] 17 mg/dL [facility] Creatinine [Mass/volume] in Serum or PlasmaOrdered By: Raeann Jang on 07-20-2023 Creatinine [Mass/Vol] 0.70 mg/dL 0.60-1.20 [facility] Eosinophils Auto (Bld) [#/Vo l]Ordered By: Raeann Jang on 07-20-2023 Eosinophils (Bld) [#/Vol] 0.1 10*3/uL 0.0-0.45 [facility] Eosinophils/100 WBC Auto (Bl d)Ordered By: Raeann Jang on 07-20-2023 Eosinophils/100 WBC (Bld) 0.9 % . [facility] Erythrocyte distribution wid th Auto (RBC) [Ratio]Ordered By: Raeann Jang on 07-20-2023 Erythrocyte distribution width (RBC) [Ratio] 12.3 % 11.9-15.3 [facility] Erythrocyte sedimentation ra te by Photometric methodOrdered By: Raeann Jang on 07-20-2023 ESR Photometric method (Bld) [Velocity] 15 mm/hr 0-19 [facility] Ferritin [Mass/volume] in Se rum or PlasmaOrdered By: Raeann Jang on 07-20-2023 Ferritin [Mass/Vol] 20.3 ng/mL 11.0-306.8 [facility] Folate [Mass/volume] in Seru m or PlasmaOrdered By: Raeann Jang on 07-20-2023 Folate [Mass/Vol] 10.4 ng/mL >5.9 [facility] Comment on above: Folate reference ran ge: >5.9 ng/mlThe WHO technical consultation on folate and vitamin [id number] has determined that folate concentrations lessthan 4 ng/ml are considered deficient. Follitropin [Units/volume] i n Serum or PlasmaOrdered By: Raeann Jang on 07-20-2023 Follitropin Qn 2.8 m[IU]/mL [facility] Comment on above: FEMALE NORMALS (FLOWER ENOPAUSE) MID-FOLLICULAR PHASE: 3.9-8.8 mIU/mL MID-CYCLE PEAK: 4.5-22.5 mIU/mL MID-LUTEAL PHASE: 1.8-5.1 mIU/mLFEMALE NORMALS (POSTMENOPAUSE): 16.7-113.6 mIU/mLMALE NORMALS: 1.3-19.3 mIU/mL Free testosterone measuremen t by LC-MS/MSOrdered By: Raeann Jang on 07-20-2023 Testosterone Free [Mass/Vol] 1.5 pg/mL 0.0-4.2 [facility] Comment on above: Performed at: - [address] [id number] Director: Alf Simpson PhD, Phone: [phone] at: BN - [facility] [address] [id number] Director: Jayne Mann MD, Phone: [phone] Globulin Calc (S) [Mass/Vol] Ordered By: Raeann Jang on 07-20-2023 Globulin (S) [Mass/Vol] 2.5 g/dL [facility] Glucose [Mass/volume] in Ser um or PlasmaOrdered By: Raeann Jang on 07-20-2023 Glucose [Mass/Vol] 76 mg/dL 70-100 [facility] Comment on above: ADA recommended refe rence rangeRandom Glucose Reference Range is dependent on time and content of last meal. Glucose of more than 200 mg/dL in a nonstressed, ambulatory subject supports the diagnosis of Diabetes Mellitus. Hematocrit Auto (Bld) [Volum e fraction]Ordered By: Raeann Jang on 07-20-2023 Hematocrit (Bld) [Volume fraction] 37.1 % 34.0-46.4 [facility] Hemoglobin [Mass/volume] in BloodOrdered By: Raeann Jang on 07-20-2023 Hemoglobin (Bld) [Mass/Vol] 12.5 g/dL 11.8-15.4 [facility] Iron [Mass/volume] in Serum or PlasmaOrdered By: Raeann Jang on 07-20-2023 Iron [Mass/Vol] 122 ug/dL 50-212 [facility] Iron binding capacity [Mass/ volume] in Serum or PlasmaOrdered By: Raeann Jang on 07-20-2023 Iron binding capacity [Mass/Vol] 427 ug/dL 255-450 [facility] Iron saturation [Mass Fracti on] in Serum or PlasmaOrdered By: Raeann Jang on 07-20-2023 Iron saturation [Mass fraction] 28.6 % 20-50 [facility] Laboratory - Chemistry and C hemistry - challengeOrdered By: Raeann Jang on 07-20-2023 Testosterone [Mass/Vol] 25 ng/dL 13-71 [facility] Leukocytes [#/volume] correc paulie for nucleated erythrocytes in Blood by Automated counOrdered By: Raeann Jang on 07-20-2023 WBC corrected for nucl RBC Auto (Bld) [#/Vol] 6.7 10*3/uL 3.8-11.6 [facility] Lymphocytes Auto (Bld) [#/Vo l]Ordered By: Raeann Jang on 07-20-2023 Lymphocytes (Bld) [#/Vol] 1.6 10*3/uL 1.00-4.8 [facility] Lymphocytes/100 WBC Auto (Bl d)Ordered By: Raeann Jang on 07-20-2023 Lymphocytes/100 WBC (Bld) 23.9 % . [facility] MCH Auto (RBC) [Entitic mass ]Ordered By: Raeann Jang on 07-20-2023 MCH (RBC) [Entitic mass] 30.5 pg 24.7-34.3 [facility] MCHC Auto (RBC) [Mass/Vol]Or dered By: Raeann Jang on 07-20-2023 MCHC (RBC) [Mass/Vol] 33.8 g/dL 32.0-35.0 [facility] MCV Auto (RBC) [Entitic vol] Ordered By: Raeann Jang on 07-20-2023 MCV (RBC) [Entitic vol] 90.1 fL 80-100 [facility] Magnesium [Mass/volume] in S ulises or PlasmaOrdered By: Raeann Jang on 07-20-2023 Magnesium [Mass/Vol] 1.9 mg/dL 1.9-2.7 [facility] Monocytes Auto (Bld) [#/Vol] Ordered By: Raeann Jang on 07-20-2023 Monocytes (Bld) [#/Vol] 0.3 10*3/uL 0.0-0.8 [facility] Monocytes/100 WBC Auto (Bld) Ordered By: Raeann Jang on 07-20-2023 Monocytes/100 WBC (Bld) 4.9 % . [facility] Neutrophils Auto (Bld) [#/Vo l]Ordered By: Raeann Jang on 07-20-2023 Neutrophils (Bld) [#/Vol] 4.7 10*3/uL 1.8-7.7 [facility] Neutrophils/100 WBC Auto (Bl d)Ordered By: Raeann Jang on 07-20-2023 Neutrophils/100 WBC (Bld) 70.0 % . [facility] No Panel InformationOrdered By: Raeann Jang on 07-20-2023 Estimated GFR (CKD-EPI) > 60.0 mL/Min [facility] Creatinine Clearance (Chem N/A [facility] Nucleated erythrocytes [Pres ence] in Blood by Automated countOrdered By: Raeann Jang on 07-20-2023 Nucleated RBC Auto Ql (Bld) 0.1 /100{WBC} 0-0.5 [facility] Platelet mean volume Auto (B ld) [Entitic vol]Ordered By: Raeann Jang on 07-20-2023 Platelet mean volume (Bld) [Entitic vol] 8.8 fL 6.3-10.7 [facility] Platelets Auto (Bld) [#/Vol] Ordered By: Raeann Jang on 07-20-2023 Platelets (Bld) [#/Vol] 344 10*3/uL 150-450 [facility] Potassium [Moles/volume] in Serum or PlasmaOrdered By: Raeann Jang on 07-20-2023 Potassium [Moles/Vol] 4.2 mmol/L 3.5-5.1 [facility] Protein [Mass/volume] in Ser um or PlasmaOrdered By: Raeann Jang on 07-20-2023 Protein [Mass/Vol] 7.0 g/dL 6.4-8.9 [facility] RBC Auto (Bld) [#/Vol]Ordere d By: Raeann Jang on 07-20-2023 RBC (Bld) [#/Vol] 4.11 10*6/uL 3.60-5.00 [facility] Serum or plasma albumin/glob ulin mass ratioOrdered By: Raeann Jang on 07-20-2023 Albumin/Globulin [Mass ratio] 1.8 {ratio} [facility] Serum or plasma anion gap de terminationOrdered By: Raeann Jang on 07-20-2023 Anion gap [Moles/Vol] 11.4 mmol/L 6.0-15.0 [facility] Serum or plasma estradiol (E 2) measurement (mass/volume)Ordered By: Raeann Jang on 07-20-2023 E2 [Mass/Vol] 126.0 pg/mL . [facility] Comment on above: Adult Female: Follic ular phase 12.5 - 166.0 Ovulation phase 85.8 - 498.0 Luteal phase 43.8 - 211.0 Postmenopausal <6.0 - 54.7 1st trimester 215.0 - >4300.0Roche ECLIA methodology Serum or plasma high density lipoprotein (HDL) cholesterol measurementOrdered By: Raeann Jang on 07-20-2023 Cholesterol in HDL [Mass/Vol] 45 mg/dL 23-92 [facility] Comment on above: HDL CHOL ATP-III CLA SSIFICATION Cardiovascular RiskHDL > or equal to 60 mg/dL LOWHDL < 40 mg/dL HIGH Serum or plasma insulin michael urement (units/volume)Ordered By: Raeann Jang on 07-20-2023 Insulin Qn 8.2 u[iU]/mL 2.6-24.9 [facility] Comment on above: Performed at: [facility] - [facility] [address] [id number] Director: Alf Simpson PhD, Phone: [phone] Serum or plasma lutropin mandeep surement (units/volume)Ordered By: Raeann Jang on 07-20-2023 Lutropin Qn 5.5 m[IU]/mL . [facility] Comment on above: Adult Female: Follic ular phase 2.4 - 12.6 Ovulation phase 14.0 - 95.6 Luteal phase 1.0 - 11.4 Postmenopausal 7.7 - 58.5 Serum or plasma progesterone measurement (mass/volume)Ordered By: Raeann Jang on 07-20-2023 Progesterone [Mass/Vol] 13.5 ng/mL . [facility] Comment on above: Follicular phase 0.1 - 0.9 Luteal phase 1.8 - 23.9 Ovulation phase 0.1 - 12.0 First trimester 11.0 - 44.3 Second trimester 25.4 - 83.3 Third trimester 58.7 - 214.0 Postmenopausal 0.0 - 0.1Performed at: [facility] - [facility] [address] [id number] Director: Alf Simpson PhD, Phone: [phone] Serum or plasma total choles terol/high density lipoprotein (HDL) cholesterol mass ratOrdered By: Raeann Jang on 07-20-2023 Cholesterol.total/Adriana sterol in HDL [Mass ratio] 3.3 {ratio} <5.0 [facility] Sodium [Moles/volume] in Ser um or PlasmaOrdered By: Raeann Jang on 07-20-2023 Sodium [Moles/Vol] 140 mmol/L 136-145 [facility] Thyrotropin [Units/volume] i n Serum or PlasmaOrdered By: Raeann Jang on 07-20-2023 TSH Qn 1.01 m[IU]/L 0.45-5.33 [facility] Thyroxine (T4) free [Mass/vo lume] in Serum or PlasmaOrdered By: Raeann Laine on 07-20-2023 Free T4 [Mass/Vol] 0.92 ng/dL 0.61-1.12 [facility] Transferrin [Mass/volume] in Serum or PlasmaOrdered By: Raeann Jang on 07-20-2023 Transferrin [Mass/Vol] 305 mg/dL 203-362 [facility] Triglyceride [Mass/volume] i n Serum or PlasmaOrdered By: Raeann Jang on 07-20-2023 Triglyceride [Mass/Vol] 85 mg/dL 0-149 [facility] Comment on above: TRIG ATP III CLASSIF ICATIONTRIG less than 150 mg/dL NormalTRIG 150-199 mg/dL Borderline highTRIG 200-500 mg/dL High TRIG greater than 500 mg/dL Very highStandard traceable to the Center for Disease Conrtrol and Prevention (CDC) test method. Triiodothyronine (T3) Free [ Mass/volume] in Serum or PlasmaOrdered By: aReann Jang on 07-20-2023 Free T3 [Mass/Vol] 4.11 pg/mL 2.50-3.90 [facility] Urea nitrogen [Mass/volume] in Serum or PlasmaOrdered By: Raeann Jang on 07-20-2023 Urea nitrogen [Mass/Vol] 8 mg/dL 7-25 [facility] Vitamin B12 ser/plasOrdered By: Raeann Laine on 07-20-2023 Cobalamin (Vitamin B12) [Mass/Vol] 384 pg/mL 180-914 [facility] Vitamin D+Metabolites [Mass/ volume] in Serum or PlasmaOrdered By: Raeann Jang on 07-20-2023 Vitamin D+Metabolites [Mass/Vol] 49.5 ng/mL 30-100 [facility] Comment on above: VITAMIN D STATUS 25( [place])VITAMIN D RANGE (ng/mL) Deficient <20 Insufficient 20 to <30Sufficient 30 to 100Reference: Ambar PEREZ,Manish MARTINEZ, Donis MANDEL, et al. Evaluation,treatment, and prevention of vitamin D deficiency; an Endocrine Society clinical practice guideline. JCEM. 2010; 96(7):1911-30. WBC Auto (Bld) [#/Vol]Ordere d By: Raeann Jang on 07-20-2023 WBC (Bld) [#/Vol] 6.7 10*3/uL 3.8-11.6 [facility] Alanine aminotransferase [En zymatic activity/volume] in Serum or PlasmaOrdered By: Tiarra Childs on 05-27-2023 ALT [Catalytic activity/Vol] 10 U/L 7-52 [facility] Albumin [Mass/volume] in Ser um or Plasma by Bromocresol green (BCG) dye binding methoOrdered By: Tiarra Childs on 05-27-2023 Albumin BCG dye [Mass/Vol] 4.4 g/dL 3.5-5.7 [facility] Alkaline phosphatase [Enzyma tic activity/volume] in Serum or PlasmaOrdered By: Tiarra Childs on 05-27-2023 ALP [Catalytic activity/Vol] 53 U/L 34-104 [facility] Aspartate aminotransferase [ Enzymatic activity/volume] in Serum or PlasmaOrdered By: Tiarra Childs on 05-27-2023 AST [Catalytic activity/Vol] 20 U/L 13-39 [facility] Basophils Auto (Bld) [#/Vol] Ordered By: Tiarra Childs on 05-27-2023 Basophils (Bld) [#/Vol] 0.0 10*3/uL 0.0-0.2 [facility] Basophils/100 WBC Auto (Bld) Ordered By: Tiarra Childs on 05-27-2023 Basophils/100 WBC (Bld) 0.5 % . [facility] Bilirubin.total [Mass/volume ] in Serum or PlasmaOrdered By: Tiarra Childs on 05-27-2023 Bilirubin [Mass/Vol] 1.5 mg/dL 0.3-1.0 [facility] Comment on above: Samples from patient s who have taken Naproxen have shown spurious elevation in Total Bilirubin levels. A metabolite of Naproxen, O-desmethylnaproxen, has been shown to interfere with the Radhika method for measuring Total Bilirubin. Calcium [Mass/volume] in Ser um or PlasmaOrdered By: Tiarra Childs on 05-27-2023 Calcium [Mass/Vol] 10.0 mg/dL 8.6-10.3 [facility] Carbon dioxide, total [Moles /volume] in Serum or PlasmaOrdered By: Tiarra Childs on 05-27-2023 CO2 [Moles/Vol] 27.0 mmol/L 21.0-31.0 [facility] Chloride [Moles/volume] in S ulises or PlasmaOrdered By: Tiarra Childs on 05-27-2023 Chloride [Moles/Vol] 104 mmol/L 98-107 [facility] Choriogonadotropin.beta subu nit [Units/volume] in Serum or PlasmaOrdered By: Tiarra Childs on 05-27-2023 HCG.beta subunit Qn 400.13 m[IU]/mL [facility] Comment on above: Approximate Approxim ate hCG Gestational Age Range (mIU/ml) (weeks)0.2-1 5-50 1-2 50-500 2-3 100-5,000 3-4 500-10,000 4-5 1,000-50,000 5-6 10,000-100,000 6-8 15,000-200,000 8-12 10,000-100,000 Creatinine [Mass/volume] in Serum or PlasmaOrdered By: Tiarra Childs on 05-27-2023 Creatinine [Mass/Vol] 0.74 mg/dL 0.60-1.20 [facility] Eosinophils Auto (Bld) [#/Vo l]Ordered By: Tiarra Childs on 05-27-2023 Eosinophils (Bld) [#/Vol] 0.1 10*3/uL 0.0-0.45 [facility] Eosinophils/100 WBC Auto (Bl d)Ordered By: Tiarra Childs on 05-27-2023 Eosinophils/100 WBC (Bld) 1.5 % . [facility] Erythrocyte distribution wid th Auto (RBC) [Ratio]Ordered By: Tiarra Childs on 05-27-2023 Erythrocyte distribution width (RBC) [Ratio] 13.2 % 11.9-15.3 [facility] Ferritin [Mass/volume] in Se rum or PlasmaOrdered By: Tiarra Childs on 05-27-2023 Ferritin [Mass/Vol] 10.1 ng/mL 11.0-306.8 [facility] Folate [Mass/volume] in Seru m or PlasmaOrdered By: Tiarra Childs on 05-27-2023 Folate [Mass/Vol] 16.2 ng/mL >5.9 [facility] Comment on above: Folate reference ran ge: >5.9 ng/mlThe WHO technical consultation on folate and vitamin [id number] has determined that folate concentrations lessthan 4 ng/ml are considered deficient. Globulin Calc (S) [Mass/Vol] Ordered By: Tiarra Childs on 05-27-2023 Globulin (S) [Mass/Vol] 3.0 g/dL [facility] Glucose [Mass/volume] in Ser um or PlasmaOrdered By: Tiarra Childs on 05-27-2023 Glucose [Mass/Vol] 73 mg/dL 70-100 [facility] Comment on above: ADA recommended refe rence rangeRandom Glucose Reference Range is dependent on time and content of last meal. Glucose of more than 200 mg/dL in a nonstressed, ambulatory subject supports the diagnosis of Diabetes Mellitus. Glucose mean value [Mass/vol ume] in Blood Estimated from glycated hemoglobinOrdered By: Tiarra Childs on 05-27-2023 Average glucose Estimated from glycated hemoglobin (Bld) [Mass/Vol] 94 mg/dL [facility] Hematocrit Auto (Bld) [Volum e fraction]Ordered By: Tiarra Childs on 05-27-2023 Hematocrit (Bld) [Volume fraction] 37.5 % 34.0-46.4 [facility] Hemoglobin A1c percentageOrd ered By: Tiarra Childs on 05-27-2023 HbA1c (Bld) [Mass fraction] 4.9 % 4.3-5.6 [facility] Comment on above: Increased risk for d iabetes: 5.7 - 6.4diabetes: >6.4glycemic control for adults with diabetes: <7.0 Hemoglobin [Mass/volume] in BloodOrdered By: Tiarra Childs on 05-27-2023 Hemoglobin (Bld) [Mass/Vol] 13.1 g/dL 11.8-15.4 [facility] Iron [Mass/volume] in Serum or PlasmaOrdered By: Tiarra Childs on 05-27-2023 Iron [Mass/Vol] 94 ug/dL 50-212 [facility] Iron binding capacity [Mass/ volume] in Serum or PlasmaOrdered By: Tiarra Childs on 05-27-2023 Iron binding capacity [Mass/Vol] 514 ug/dL 255-450 [facility] Iron saturation [Mass Fracti on] in Serum or PlasmaOrdered By: Tiarra Childs on 05-27-2023 Iron saturation [Mass fraction] 18.3 % 20-50 [facility] Leukocytes [#/volume] correc paulie for nucleated erythrocytes in Blood by Automated counOrdered By: Tiarra Childs on 05-27-2023 WBC corrected for nucl RBC Auto (Bld) [#/Vol] 6.3 10*3/uL 3.8-11.6 [facility] Lymphocytes Auto (Bld) [#/Vo l]Ordered By: Tiarra Childs on 05-27-2023 Lymphocytes (Bld) [#/Vol] 1.8 10*3/uL 1.00-4.8 [facility] Lymphocytes/100 WBC Auto (Bl d)Ordered By: Tiarra Childs on 05-27-2023 Lymphocytes/100 WBC (Bld) 29.2 % . [facility] MCH Auto (RBC) [Entitic mass ]Ordered By: Tiarra Childs on 05-27-2023 MCH (RBC) [Entitic mass] 31.5 pg 24.7-34.3 [facility] MCHC Auto (RBC) [Mass/Vol]Or dered By: Tiarra Childs on 05-27-2023 MCHC (RBC) [Mass/Vol] 34.9 g/dL 32.0-35.0 [facility] MCV Auto (RBC) [Entitic vol] Ordered By: Tiarra Childs on 05-27-2023 MCV (RBC) [Entitic vol] 90.3 fL 80-100 [facility] Monocytes Auto (Bld) [#/Vol] Ordered By: Tiarra Childs on 05-27-2023 Monocytes (Bld) [#/Vol] 0.4 10*3/uL 0.0-0.8 [facility] Monocytes/100 WBC Auto (Bld) Ordered By: Tiarra Childs on 05-27-2023 Monocytes/100 WBC (Bld) 6.7 % . [facility] Neutrophils Auto (Bld) [#/Vo l]Ordered By: Tiarra Childs on 05-27-2023 Neutrophils (Bld) [#/Vol] 3.9 10*3/uL 1.8-7.7 [facility] Neutrophils/100 WBC Auto (Bl d)Ordered By: Tiarra Childs on 05-27-2023 Neutrophils/100 WBC (Bld) 62.1 % . [facility] No Panel InformationOrdered By: Tiarra Childs on 05-27-2023 Estimated GFR (CKD-EPI) > 60.0 mL/Min [facility] Creatinine Clearance (Chem N/A [facility] Nucleated erythrocytes [Pres ence] in Blood by Automated countOrdered By: Tiarra Childs on 05-27-2023 Nucleated RBC Auto Ql (Bld) 0.1 /100{WBC} 0-0.5 [facility] Platelet mean volume Auto (B ld) [Entitic vol]Ordered By: Tiarra Childs on 05-27-2023 Platelet mean volume (Bld) [Entitic vol] 8.6 fL 6.3-10.7 [facility] Platelets Auto (Bld) [#/Vol] Ordered By: Tiarra Childs on 05-27-2023 Platelets (Bld) [#/Vol] 350 10*3/uL 150-450 [facility] Potassium [Moles/volume] in Serum or PlasmaOrdered By: Tiarra Childs on 05-27-2023 Potassium [Moles/Vol] 4.1 mmol/L 3.5-5.1 [facility] Protein [Mass/volume] in Ser um or PlasmaOrdered By: Tiarra Childs on 05-27-2023 Protein [Mass/Vol] 7.4 g/dL 6.4-8.9 [facility] RBC Auto (Bld) [#/Vol]Ordere d By: Tiarra Childs on 05-27-2023 RBC (Bld) [#/Vol] 4.15 10*6/uL 3.60-5.00 [facility] Serum or plasma albumin/glob ulin mass ratioOrdered By: Tiarra Childs on 05-27-2023 Albumin/Globulin [Mass ratio] 1.5 {ratio} [facility] Serum or plasma anion gap de terminationOrdered By: Tiarra Childs on 05-27-2023 Anion gap [Moles/Vol] 10.1 mmol/L 6.0-15.0 [facility] Serum or plasma insulin michael urement (units/volume)Ordered By: Tiarra Childs on 05-27-2023 Insulin Qn 5.5 u[iU]/mL 2.6-24.9 [facility] Comment on above: Performed at: [place] [id number] Director: Alf Simpson PhD, Phone: [phone] Sodium [Moles/volume] in Ser um or PlasmaOrdered By: Tiarra Childs on 05-27-2023 Sodium [Moles/Vol] 137 mmol/L 136-145 [facility] Thyrotropin [Units/volume] i n Serum or PlasmaOrdered By: Tiarra Childs on 05-27-2023 TSH Qn 0.95 m[IU]/L 0.45-5.33 [facility] Thyroxine (T4) free [Mass/vo lume] in Serum or PlasmaOrdered By: Tiarra Childs on 05-27-2023 Free T4 [Mass/Vol] 0.80 ng/dL 0.61-1.12 [facility] Transferrin [Mass/volume] in Serum or PlasmaOrdered By: Tiarra Childs on 05-27-2023 Transferrin [Mass/Vol] 367 mg/dL 203-362 [facility] Urea nitrogen [Mass/volume] in Serum or PlasmaOrdered By: Tiarra Childs on 05-27-2023 Urea nitrogen [Mass/Vol] 9 mg/dL 7-25 [facility] Vitamin B12 ser/plasOrdered By: Tiarra Childs on 05-27-2023 Cobalamin (Vitamin B12) [Mass/Vol] 340 pg/mL 180-914 [facility] Vitamin D+Metabolites [Mass/ volume] in Serum or PlasmaOrdered By: Tiarra Childs on 05-27-2023 Vitamin D+Metabolites [Mass/Vol] 43.5 ng/mL 30-100 [facility] Comment on above: VITAMIN D STATUS 25( [place])VITAMIN D RANGE (ng/mL) Deficient <20 Insufficient 20 to <30Sufficient 30 to 100Reference: Ambar MF,Manish MARTINEZ, Donis MANDEL, et al. Evaluation,treatment, and prevention of vitamin D deficiency; an Endocrine Society clinical practice guideline. JCEM. 2010; 96(7):1911-30. WBC Auto (Bld) [#/Vol]Ordere d By: Tiarra Childs on 05-27-2023 WBC (Bld) [#/Vol] 6.3 10*3/uL 3.8-11.6 [facility] COVID-19 Detected/Not Detect edOrdered By: Tiarra Childs on 12-09-2022 SARS-CoV-2 (COVID-19) RNA KYLAH+non-probe Ql (Nph) Not detected Not Detecte [facility] Comment on above: This is a duplicate RP2.1 COVID (PCR) result to be used for statistical tracking purpose only. Respiratory pathogens DNA an d RNA panel - Nasopharynx by KYLAH with non-probe detectionOrdered By: Tiarra Childs on 12-09-2022 Respiratory pathogens DNA and RNA panel KYLAH+non-probe (Nph) [facility] CBC AUTO DIFFon 12-04-2022 BASO # 0.0 103/ul Normal 0.0-0.1 [facility] Comment on above: Performed By: #### C BC #### [facility] [address] [address] [address] Angelica Smith Basophils/100 WBC (Bld) 0.7 % Normal 0.2-2.0 [facility] Comment on above: Performed By: #### C BC #### [facility] [address] [address] [address] Angelica Smith EO # 0.1 103/ul Normal 0.0-0.7 [facility] Comment on above: Performed By: #### C BC #### [facility] [address] [place] [address] Dr. Angelica Smith Eosinophils/100 WBC (Bld) 1.1 % Normal 0.9-7.0 [facility] Comment on above: Performed By: #### C BC #### [facility] [address] [place] [address] Dr. Angelica Smith Erythrocyte distribution width (RBC) [Ratio] 12.1 % Normal 11.0-15.0 [facility] Comment on above: Performed By: #### C BC #### [facility] [address] [place] [address] Dr. Angelica Smith Hematocrit (Bld) [Volume fraction] 39.3 % Normal 36.0-48.0 [facility] Comment on above: Performed By: #### C BC #### [facility] [address] [place] [address] Dr. Angelica Smith Hemoglobin (Bld) [Mass/Vol] 13.3 g/dL Normal 12.0-16.0 [facility] Comment on above: Performed By: #### C BC #### [facility] [address] [place] [address] Dr. Angelica Smith IG # 0.01 10e3/ul Normal 0.00-0.03 [facility] Comment on above: Performed By: #### C BC #### [facility] [address] [place] [address] Dr. Angelica Smith IG % 0.2 % Normal 0.0-0.5 [facility] Comment on above: Performed By: #### C BC #### [facility] [address] [place] [address] Dr. Angelica Smith LYMPH # 1.9 103/ul Normal 1.2-3.8 [facility] Comment on above: Performed By: #### C BC #### [facility] [address] [place] [address] Dr. Angelica Smith Lymphocytes/100 WBC (Bld) 31.4 % Normal 20.5-60.0 [facility] Comment on above: Performed By: #### C BC #### [facility] [address] [place] [address] Dr. Angelica Smith MANUAL DIFF REQ NO Normal [facility] Comment on above: Performed By: #### C BC #### [facility] [address] [place] [address] Dr. Angelica Smith MCH (RBC) [Entitic mass] 30.3 pg Normal 26.7-34.0 [facility] Comment on above: Performed By: #### C BC #### [facility] [address] [place] [address] Dr. Angelica Smith MCHC (RBC) [Mass/Vol] 33.8 g/dL Normal 29.9-35.2 [facility] Comment on above: Performed By: #### C BC #### [facility] [address] [place] [address] Dr. Angelica Smith MCV (RBC) [Entitic vol] 89.5 fL Normal 81.0-99.0 [facility] Comment on above: Performed By: #### C BC #### [facility] [address] [place] [address] Dr. Angelica Smith MONO # 0.5 103/ul Normal 0.3-0.8 [facility] Comment on above: Performed By: #### C BC #### [facility] [address] [place] [address] Dr. Angelica Smith Monocytes/100 WBC (Bld) 7.4 % Normal 1.7-12.0 [facility] Comment on above: Performed By: #### C BC #### [facility] [address] [place] [address] Dr. Angelica Smith NEUT # 3.6 103/ul Normal 1.4-6.5 [facility] Comment on above: Performed By: #### C BC #### [facility] [address] [place] [address] Dr. Angelica Smith Neutrophils/100 WBC (Bld) 59.2 % Normal 43.0-75.0 [facility] Comment on above: Performed By: #### C BC #### [facility] [address] [place] [address] Dr. Angelica Smith Platelet mean volume (Bld) [Entitic vol] 9.7 fL Normal 9.5-13.5 [facility] Comment on above: Performed By: #### C BC #### [facility] [address] [place] [address] Dr. Angelica Smith PLT 289 103/ul Normal 150-450 [facility] Comment on above: Performed By: #### C BC #### [facility] [address] [place] [address] Dr. Angelica Smith RBC 4.39 106/ul Normal 4.20-5.40 [facility] Comment on above: Performed By: #### C BC #### [facility] [address] [place] [address] Dr. Angelica Smith WBC 6.1 103/ul Normal 4.0-11.0 [facility] Comment on above: Performed By: #### C BC #### [facility] [address] [place] [address] Dr. Angelica Smith PREG QUANT HCGon 12-04-2022 HCG QUANT <1 Normal [facility] Comment on above: Performed By: #### P REGQNT #### [facility] [address] [place] [address] Dr. Angelica Smith HCG RANGE SEE BELOW Normal [facility] Comment on above: Result Comment: 5-50 0.2-1 WEEK 50-500 1-2 WEEKS 100-5,000 2-3 WEEKS 500-10,000 3-4 WEEKS 1,000-50,000 4-5 WEEKS 10,000-100,000 5-6 WEEKS 15,000-200,000 6-8 WEEKS 10,000-100,000 2-3 MONTHS Performed By: #### P REGQNT #### [facility] [address] [place] [address] Dr. Angelica Smith Albumin [Mass/volume] in Ser um or PlasmaOrdered By: Tiarra Childs on 10-29-2022 Albumin [Mass/Vol] 4.3 g/dL 3.2-5.5 [facility] Alternaria alternata IgE Ab [Units/volume] in SerumOrdered By: Tiarra Childs on 10-29-2022 A. alternata IgE Qn (S) <0.10 kU/L Class 0 [facility] Montenegrin house dust mite IgE Ab [Units/volume] in SerumOrdered By: Tiarra Childs on 10-29-2022 Montenegrin house dust mite IgE Qn (S) 0.10 kU/L Class 0/I [facility] Aspergillus fumigatus IgE Ab [Units/volume] in SerumOrdered By: Tiarra Childs on 10-29-2022 A. fumigatus IgE Qn (S) <0.10 kU/L Class 0 [facility] Shaffer's yeast IgE Ab [Units/ volume] in SerumOrdered By: Tiarra Childs on 10-29-2022 Shaffer's yeast IgE Qn (S) <0.10 kU/L Class 0 [facility] Comment on above: Performed at: [address] [id number] Director: Jayne Mann MD, Phone: [phone] Banana IgE Ab [Units/volume] in SerumOrdered By: Tiarra Childs on 10-29-2022 Banana IgE Qn (S) <0.10 kU/L Class 0 [facility] Barley IgE Ab [Units/volume] in SerumOrdered By: Tiarra Childs on 10-29-2022 Barley IgE Qn (S) 0.40 kU/L Class I [facility] Beef IgE Ab [Units/volume] i n SerumOrdered By: Tiarra Childs on 10-29-2022 Beef IgE Qn (S) <0.10 kU/L Class 0 [facility] Bermuda grass IgE Ab [Units/ volume] in SerumOrdered By: Tiarra Childs on 10-29-2022 Bermuda grass IgE Qn (S) <0.10 kU/L Class 0 [facility] Boxelder IgE Ab [Units/volum e] in SerumOrdered By: Tiarra Childs on 10-29-2022 Boxelder IgE Qn (S) <0.10 kU/L Class 0 [facility] Cheese cheddar type IgE Ab [ Units/volume] in SerumOrdered By: Tiarra Childs on 10-29-2022 Cheese cheddar type IgE Qn (S) <0.10 kU/L Class 0 [facility] Cladosporium herbarum IgE Ab [Units/volume] in SerumOrdered By: Tiarra Childs on 10-29-2022 C. herbarum IgE Qn (S) <0.10 kU/L Class 0 [facility] Cockroach IgE Ab [Units/volu me] in SerumOrdered By: Tiarra Childs on 10-29-2022 Cockroach IgE Qn (S) 0.44 kU/L Class I [facility] [place] IgE Ab [Units/volume] i n SerumOrdered By: Tiarra Childs on 10-29-2022 [place] IgE Qn (S) <0.10 kU/L Class 0 [facility] Overton IgE Ab [Units/vol ume] in SerumOrdered By: Tiarra Childs on 10-29-2022 Overton IgE Qn (S) <0.10 kU/L Class 0 [facility] Cow milk IgE Ab [Units/volum e] in SerumOrdered By: Tiarra Childs on 10-29-2022 Cow milk IgE Qn (S) <0.10 kU/L Class 0 [facility] Creatinine and Glomerular fi ltration rate.predicted panel (S/P/Bld)Ordered By: Tiarra Childs on 10-29-2022 Creatinine [Mass/Vol] 0.65 mg/dL 0.44-1.03 [facility] Dog dander IgE Ab [Units/vol ume] in SerumOrdered By: Tiarra Childs on 10-29-2022 Dog dander IgE Qn (S) 0.12 kU/L Class 0/I [facility] Estimated glomerular filtrat ion rate (GFR) non- AmericanOrdered By: Tiarra Childs on 10-29-2022 GFR/1.73 sq M.predicted among non-blacks MDRD (S/P/Bld) [Vol rate/Area] > 60 mL/Min [facility] house dust mite IgE Ab [Units/volume] in SerumOrdered By: Tiarra Childs on 10-29-2022 house dust mite IgE Qn (S) 0.26 kU/L Class 0/I [facility] Free testosterone measuremen t by LC-MS/MSOrdered By: Tiarra Childs on 10-29-2022 Testosterone Free [Mass/Vol] 3.7 pg/mL 0.0-4.2 [facility] Comment on above: Performed at: [address] [id number] Director: Alf Simpson PhD, Phone: [phone] at: [facility] [id number] Director: Jayne Mann MD, Phone: [phone] Gluten IgE Ab [Units/volume] in SerumOrdered By: Tiarra Childs on 10-29-2022 Gluten IgE Qn (S) <0.10 kU/L Class 0 [facility] Hepatitis B virus surface Ag [Presence] in Serum or Plasma by ImmunoassayOrdered By: Tiarra Childs on 10-29-2022 HBV surface Ag IA Ql Negative Negative [facility] Hepatitis C virus RNA [Units /volume] (viral load) in Serum or Plasma by KYLAH with probOrdered By: Tiarra Childs on 10-29-2022 HCV RNA KYLAH+probe Qn N/A [facility] Hepatitis C virus RNA [log u nits/volume] (viral load) in Serum or Plasma by KYLAH withOrdered By: Tiarra Childs on 10-29-2022 HCV RNA KYLAH+probe [Log units/Vol] N/A [facility] Human leukocyte antigen (HLA ) DQ2 detectionOrdered By: Tiarra Childs on 10-29-2022 HLA-DQ2 Ql (Bld/Tiss) Negative . [facility] Human leukocyte antigen (HLA ) DQ8 detectionOrdered By: Tiarra Childs on 10-29-2022 HLA-DQ8 Ql (Bld/Tiss) Negative . [facility] Comment on above: Final Results:DQA1*0 5:EETCV,-DQB1*03:EETKC,-Code Translation:EETCV 05:01:05:05/25:07/25:08/24:13:14 :1605:17N/05:20/05:24:25:26 :28:29Q/05:3005:32/05:34/05:35 /05:37/05:39/05:42/05:43/05:44/05:45/05:46 /05:48/05:50/05:51/05:53/05:58/05:59/05:60 /05:62/05:64EETKC 03:0103:10:1603:19/03:21/03:22:24 :27:2803:29/03:35/03:36/03:42/03:44 /03:46/03:47/03:48/03:49/03:50/03:51/03:52 /03:53/03:54/03:55/03:56/03:57/03:58/03:59 /03:60/03:69/03:73/03:75/03:76/03:77/03:78 /03:82/03:83/03:84N/03:92/03:93/03:94 /03:101/03:102/03:103/03:108/03:109/03:114 /03:115/03:116/03:118N/03:119/03:120 /03:121/03:122/03:127/03:128/03:129/03:130 /03:131/03:133/03:134/03:135/03:139/03:140 /03:142/03:143/03:144/03:147/03:148/03:151 /03:152/03:154/03:157/03:158/03:159/03:160 /03:162/03:163/03:164/03:165/03:166/03:167 /03:169/03:170/03:171/03:173/03:182/03:183 /03:186/03:188/03:191/03:192/03:193/03:196 /03:197Q/03:198/03:201/03:202/03:206 /03:207/:208/:216/:218/03:219/03:231 /03:232/03:235/03:236/03:241/03:242/03:243 /03:246/:252/03:253/:254/03:255/:257 /:260/:264/03:266/03:267/03:268/03:271 /03:275/03:276N/03:281/03:284/03:285 /03:288/03:290/03:291/:292/:293/03:294 /03:297/03:302/03:303N/03:305/03:306 /03:307/03:309/03:311/03:312/03:314/03:317 /03:326/03:328/03:329/03:330/03:331 /03:338N/03:340N/03:341/03:342/03:347 /03:350/03:353/03:354N/03:358N/03:361 /03:366/03:370/03:372/03:373/03:377/03:378 /03:380/03:385N/03:387/03:389/03:390 /03:391/03:394/03:396/03:399N/03:400N /03:404/03:407N/03:408/03:417/03:418 /03:419/03:420/03:421/03:423/03:424/03:425 /03:426/03:427N/03:428/03:430/03:431 /03:432/03:434/03:435/03:436/03:438/03:439 /03:448/03:449/03:451/03:454/03:455/03:458 /03:460/03:465/03:467/03:468/03:469/03:470 /03:472/03:473N/03:475/03:476/03:480Q /03:482/03:483/03:486/03:488N/03:491/03:492The patient is positive for DQA1*05, one half of the TQ3jrcnguddqua. The Celiac Disease risk from the HLA DQA/DQBgenotype is approximately 1:1842 (0.05%). This is lessthan the 1% risk in the general population.Allele interpretation for all loci based on IMGT/HLAdatabase version 3.49.0[facility] CLIA ID Number [id number] than 95% of celiac patients are positive for eitherDQ2 or DQ8 (Kirt and Neela, (1993) Sjofblipkaepjlvn246:910-922). However these antigens may also be present inpatients who do not have Celiac disease. IgE [Units/volume] in Serum or PlasmaOrdered By: Tiarra Childs on 10-29-2022 IgE Qn 5 [IU]/mL 6-495 [facility] Laboratory - Chemistry and C hemistry - challengeOrdered By: Tiarra Childs on 10-29-2022 Testosterone [Mass/Vol] 41 ng/dL 13-71 [facility] Mountain Juniper IgE Ab [Uni ts/volume] in SerumOrdered By: Tiarra Childs on 10-29-2022 [place] Juniper IgE Qn (S) 0.19 kU/L Class 0/I [facility] Mouse urine proteins IgE Ab [Units/volume] in SerumOrdered By: Tiarra Childs on 10-29-2022 Mouse urine proteins IgE Qn (S) <0.10 kU/L Class 0 [facility] No Panel InformationOrdered By: Tiarra Childs on 10-29-2022 Allergen Note See comment . [facility] Comment on above: Levels of Specific I gE Class Description of Class ----- < 0.10 0 Negative 0.10 - 0.31 0/I Equivocal/Low 0.32 - 0.55 I Low 0.56 - 1.40 II Moderate 1.41 - 3.90 III High 3.91 - 19.00 IV Very High 19.01 - 100.00 V Very High >100.00 Very High C-Peptide 1.7 ng/mL 1.1-4.4 [facility] Comment on above: C-Peptide reference interval is for fasting patients.Performed at: [facility] [address] [id number] Director: Alf Simpson PhD, Phone: [phone] Celiac Gene Interpretation See comment . [facility] Comment on above: References:1. Fidel CROOKS and Krystin Lock. Celiac Disease. N Eng J Med 2007; 357:0093-2182.2. Nehani F, Sinclair B, Bonamico M et al. HLA-DQ and risk gradient for celiac disease. Hum Immunol 2009; 70:55-59.3. Bandar MM, Highland TC, Raven FM et al. Stratifying risk [...] Sang TC, Nigel CR, Je K, editors. FilmBreakjose francisco [employer]), [employer], [place], March 22, 2008:1-27. http://www.ncbi.nlm.nih.gov/ann marie/br.fcgi?book=genepart=ce ramiro PMID [id number] (PubMed)6. Luis Lim. Emerging concepts in celiac disease. Curr Opin Pediatr 2004;16:552-559.Performed at: [address] [place] [address] [id number] [place], [place] [id number] Director: Dajuan Dickinson PhD, Phone: [phone] Dehydroepiandrosterone Sulfate 368.0 ug/dL 110.0-431. 7 [facility] Estimated GFR () > 60 mL/Min [facility] Comment on above: GFR estimated refere nce range: According to KDOQI guidelines, <60 ml/min/1.73m2 is sufficient to diagnose a patient with chronic kidney disease. Hepatitis A IgM Antibody Negative Negative [facility] Hepatitis B Core IgM Antibody Negative Negative [facility] Hepatitis C Interpretation See comment . [facility] Comment on above: NegativeNot infected with HCV, unless recent infection issuspected or other evidence exists to indicate HCVinfection.Performed at: [facility] [id number] Director: Alf Simpson PhD, Phone: [phone] Hepatitis C RNA Quantitative N/A [facility] HLA Genotype Interpretation See comment . [facility] Comment on above: This test was perfor med using Polymerase ChainReaction/(PCR)Sequence Specific Oligonucleotide Probes(SSOP) (Tissue Genesis) technique. Sequence Based Typing (SBT)and/or Sequence Specific Primers (SSP) may be used assupplemental methods when necessary. Please contact HLACustomer Service at if you have anyquestions.Director of HLA LaboratoryDr Dajuan Dickinson, PhD Pharmacy Creatinine Clearance (Chem N/A [facility] Oat IgE Ab [Units/volume] in SerumOrdered By: Tiarra Childs on 10-29-2022 Oat IgE Qn (S) 0.32 kU/L Class I [facility] Mumford IgE Ab [Units/volume] in SerumOrdered By: Tiarra Childs on 10-29-2022 Mumford IgE Qn (S) <0.10 kU/L Class 0 [facility] Peanut IgE Ab [Units/volume] in SerumOrdered By: Tiarra Childs on 10-29-2022 Peanut IgE Qn (S) <0.10 kU/L Class 0 [facility] Pecan or [place] Tree IgE Ab [Units/volume] in SerumOrdered By: Tiarra Childs on 10-29-2022 Pecan or [place] Tree IgE Qn (S) <0.10 kU/L Class 0 [facility] Phosphate [Mass/volume] in S ulises or PlasmaOrdered By: Tiarra Childs on 10-29-2022 Phosphate [Mass/Vol] 4.2 mg/dL 2.5-4.6 [facility] Pork IgE Ab [Units/volume] i n SerumOrdered By: Tiarra Childs on 10-29-2022 Pork IgE Qn (S) <0.10 kU/L Class 0 [facility] Prolactin [Mass/volume] in S ulises or PlasmaOrdered By: Tiarra Childs on 10-29-2022 Prolactin [Mass/Vol] 6.27 ng/mL 3.34-26.72 [facility] Rice IgE Ab [Units/volume] i n SerumOrdered By: Tiarra Childs on 10-29-2022 Rice IgE Qn (S) <0.10 kU/L Class 0 [facility] [place] IgE Ab [Units/volume] in SerumOrdered By: Tiarra Childs on 10-29-2022 [place] IgE Qn (S) 0.31 kU/L Class 0/I [facility] Saltwort IgE Ab [Units/volum e] in SerumOrdered By: Tiarra Childs on 10-29-2022 Saltwort IgE Qn (S) <0.10 kU/L Class 0 [facility] Serum Montenegrin sycamore IgE antibody assay (units/volume)Ordered By: Tiarra Childs on 10-29-2022 Montenegrin [place] IgE Qn (S) 0.11 kU/L Class 0/I [facility] Serum Penicillium chrysogenu m specific IgE antibody assayOrdered By: Tiarra Childs on 10-29-2022 P. notatum IgE Qn (S) <0.10 kU/L Class 0 [facility] Serum androstenedione measur ement by LC-MS/MS (mass/volume)Ordered By: Tiarra Childs on 10-29-2022 Androstenedione [Mass/Vol] 135 ng/dL 41-262 [facility] Comment on above: This test was develo ped and its performance characteristicsdetermined by [facility]. It has not been cleared orapproved by the Food and Drug Administration.Performed at: [facility] @[employer] [id number] Director: Jayne Mann MD, Phone: [phone] Serum cat dander IgG antibod y assay (units/volume)Ordered By: Tiarra Childs on 10-29-2022 Cat dander IgG Qn (S) <0.10 kU/L Class 0 [facility] Serum chicken droppings IgE antibody assay (units/volume)Ordered By: Tiarra Childs on 10-29-2022 Chicken droppings IgE Qn (S) <0.10 kU/L Class 0 [facility] Serum or plasma 17-hydroxypr ogesterone measurement (mass/volume)Ordered By: Tiarra Childs on 10-29-2022 17-Hydroxyprogesterone [Mass/Vol] 28 ng/dL . [facility] Comment on above: Adult Female Follicu lar 15 - 70 Luteal 35 - 290This test was developed and its performance characteristicsdetermined by [facility]. It has not been cleared orapproved by the Food and Drug Administration.Performed at: [facility] [id number] Director: Jayne Mann MD, Phone: [phone] Serum or plasma anion gap de terminationOrdered By: Tiarra Childs on 10-29-2022 Anion gap [Moles/Vol] 9.2 mmol/L 6.0-15.0 [facility] Serum or plasma calcium michael urement (mass/volume)Ordered By: Tiarra Childs on 10-29-2022 Calcium [Mass/Vol] 9.4 mg/dL 8.2-10.2 [facility] Serum or plasma chloride mandeep surement (moles/volume)Ordered By: Tiarra Childs on 10-29-2022 Chloride [Moles/Vol] 105 mmol/L 95-114 [facility] Serum or plasma follitropin measurement (units/volume)Ordered By: Tiarra Childs on 10-29-2022 Follitropin Qn 5.1 m[IU]/mL [facility] Comment on above: FEMALE NORMALS (FLOWER ENOPAUSE) MID-FOLLICULAR PHASE: 3.9-8.8 mIU/mL MID-CYCLE PEAK: 4.5-22.5 mIU/mL MID-LUTEAL PHASE: 1.8-5.1 mIU/mLFEMALE NORMALS (POSTMENOPAUSE): 16.7-113.6 mIU/mLMALE NORMALS: 1.3-19.3 mIU/mL Serum or plasma glucose michael urement (mass/volume)Ordered By: Tiarra Childs on 10-29-2022 Glucose [Mass/Vol] 83 mg/dL 70-100 [facility] Comment on above: ADA recommended refe rence [...] IA [Rel units/Vol] <0.1 s/co ratio 0.0-0.9 [facility] Serum or plasma insulin michael urement (units/volume)Ordered By: Tiarra Childs on 10-29-2022 Insulin Qn 6.1 u[iU]/mL 2.6-24.9 [facility] Comment on above: Performed at: [place] [facility] [place] [id number] Director: Alf Simpson PhD, Phone: [phone] Serum or plasma lutropin mandeep surement (units/volume)Ordered By: Tiarra Childs on 10-29-2022 Lutropin Qn 7.8 m[IU]/mL . [facility] Comment on above: Adult Female: Follic ular phase 2.4 - 12.6 Ovulation phase 14.0 - 95.6 Luteal phase 1.0 - 11.4 Postmenopausal 7.7 - 58.5Performed at: [facility] [address] [id number] Director: Alf Simpson PhD, Phone: [phone] Serum or plasma potassium me asurement (moles/volume)Ordered By: Tiarra Childs on 10-29-2022 Potassium [Moles/Vol] 3.8 mmol/L 3.5-5.1 [facility] Serum or plasma sodium measu rement (moles/volume)Ordered By: Tiarra Childs on 10-29-2022 Sodium [Moles/Vol] 137 mmol/L 136-146 [facility] Serum or plasma total carbon dioxide measurement (moles/volume)Ordered By: Tiarra Childs on 10-29-2022 CO2 [Moles/Vol] 26.6 mmol/L 22.0-30.0 [facility] Serum or plasma urea nitroge n measurement (mass/volume)Ordered By: Tiarra Childs on 10-29-2022 Urea nitrogen [Mass/Vol] 8 mg/dL 9-23 [facility] Serum rough pigweed IgE anti body assay (units/volume)Ordered By: Tiarra Childs on 10-29-2022 Rough Pigweed IgE Qn (S) <0.10 kU/L Class 0 [facility] Serum short ragweed specific IgE antibody assayOrdered By: Tiarra Childs on 10-29-2022 Common Ragweed IgE Qn (S) <0.10 kU/L Class 0 [facility] Serum white elm IgG antibody assay (units/volume)Ordered By: Tiarra Childs on 10-29-2022 White Elm IgG Qn (S) <0.10 kU/L Class 0 [facility] Serum white potato specific IgE antibody assayOrdered By: Tiarra Childs on 10-29-2022 Potato IgE Qn (S) <0.10 kU/L Class 0 [facility] Sheep Brownlee IgE Ab [Units/v olume] in SerumOrdered By: Tiarra Childs on 10-29-2022 Sheep [place]lee IgE Qn (S) <0.10 kU/L Class 0 [facility] Silver Birch IgE Ab [Units/v olume] in SerumOrdered By: Tiarra Childs on 10-29-2022 Silver [place]ch IgE Qn (S) 0.15 kU/L Class 0/I [facility] Soybean specific IgE antibod y assayOrdered By: Tiarra Childs on 10-29-2022 Soybean IgE Qn (S) <0.10 kU/L Class 0 [facility] Donavon IgE Ab [Units/volume ] in SerumOrdered By: Tiarra Childs on 10-29-2022 [place]on IgE Qn (S) <0.10 kU/L Class 0 [facility] Tomato IgE Ab [Units/volume] in SerumOrdered By: Tiarra Childs on 10-29-2022 Tomato IgE Qn (S) <0.10 kU/L Class 0 [facility] [place] IgE Ab [Units/volume] in SerumOrdered By: Tiarra Childs on 10-29-2022 [place] IgE Qn (S) 0.14 kU/L Class 0/I [facility] Wheat IgE Ab [Units/volume] in SerumOrdered By: Tiarra Childs on 10-29-2022 Wheat IgE Qn (S) <0.10 kU/L Class 0 [facility] White Marquez IgE Ab [Units/volu me] in SerumOrdered By: Tiarra Childs on 10-29-2022 White [place] IgE Qn (S) <0.10 kU/L Class 0 [facility] [place] IgE Ab [Units/volu me] in SerumOrdered By: Tiarra Childs on 10-29-2022 [place] IgE Qn (S) 0.27 kU/L Class 0/I [facility] White mulberry IgE Ab [Units /volume] in SerumOrdered By: Tiarra Childs on 10-29-2022 White mulberry IgE Qn (S) <0.10 kU/L Class 0 [facility] Creatinine [Mass/volume] in UrineOrdered By: Tiarra Childs on 10-20-2022 Creatinine (U) [Mass/Vol] 96.6 mg/dL [facility] Comment on above: No reference range e stablished Urine microalbumin measureme nt with detection limit of 20 mg/L or less (mass/volume)Ordered By: Tiarra Childs on 10-20-2022 Albumin DL <= 20 mg/L (U) [Mass/Vol] 24.1 mg/dL 0.0-1.8 [facility] Urine microalbumin/creatinin e mass ratioOrdered By: Tiarra Childs on 10-20-2022 Albumin/Creatinine DL <= 20 mg/L (U) [Mass ratio] 249.0 mg/g 0.0-30.0 [facility] Comment on above: 30-300 mg/g indicate s an increased risk for diabetic nephropathy. Greater than 300 mg/g is consistent with clinical nephropathy. (Am. J. Kidney Disease 1995, 25:107) Albumin [Mass/volume] in Ser um or PlasmaOrdered By: Tiarra Childs on 10-09-2022 Albumin [Mass/Vol] 4.1 g/dL 3.2-5.5 [facility] Basophils Auto (Bld) [#/Vol] Ordered By: Tiarra Childs on 10-09-2022 Basophils (Bld) [#/Vol] 0.0 10*3/uL 0.0-0.2 [facility] Basophils/100 WBC Auto (Bld) Ordered By: Tiarra Childs on 10-09-2022 Basophils/100 WBC (Bld) 0.6 % . [facility] C reactive protein [Mass/vol ume] in Serum or PlasmaOrdered By: Tiarra Childs on 10-09-2022 CRP [Mass/Vol] < 0.5 mg/dL 0.0-1.0 [facility] CT biopsyOrdered By: Trish Childs on 10-09-2022 Transferrin [Mass/Vol] 262 mg/dL 180-380 [facility] Creatinine [Mass/volume] in UrineOrdered By: Tiarra Childs on 10-09-2022 Creatinine (U) [Mass/Vol] 123.2 mg/dL [facility] Comment on above: No reference range e stablished Creatinine and Glomerular fi ltration rate.predicted panel (S/P/Bld)Ordered By: Tiarra Childs on 10-09-2022 Creatinine [Mass/Vol] 0.67 mg/dL 0.44-1.03 [facility] Eosinophils Auto (Bld) [#/Vo l]Ordered By: Tiarra Childs on 10-09-2022 Eosinophils (Bld) [#/Vol] 0.1 10*3/uL 0.0-0.45 [facility] Eosinophils/100 WBC Auto (Bl d)Ordered By: Tiarra Childs on 10-09-2022 Eosinophils/100 WBC (Bld) 0.9 % . [facility] Erythrocyte distribution wid th Auto (RBC) [Ratio]Ordered By: Tiarra Childs on 10-09-2022 Erythrocyte distribution width (RBC) [Ratio] 13.1 % 11.9-15.3 [facility] Erythrocyte sedimentation ra te by Photometric methodOrdered By: Tiarra Childs on 10-09-2022 ESR Photometric method (Bld) [Velocity] 5 mm/hr 0-19 [facility] Estimated glomerular filtrat ion rate (GFR) non- AmericanOrdered By: Tiarra Childs on 10-09-2022 GFR/1.73 sq M.predicted among non-blacks MDRD (S/P/Bld) [Vol rate/Area] > 60 mL/Min [facility] Ferritin [Mass/volume] in Se rum or PlasmaOrdered By: Tiarra Childs on 10-09-2022 Ferritin [Mass/Vol] 12.7 ng/mL 11-306.8 [facility] Folate [Mass/volume] in Seru m or PlasmaOrdered By: Tiarra Childs on 10-09-2022 Folate [Mass/Vol] 8.1 ng/mL >5.9 [facility] Comment on above: Folate reference ran ge: >5.9 ng/mlThe WHO technical consultation on folate and vitamin [id number] has determined that folate concentrations lessthan 4 ng/ml are considered deficient. Globulin Calc (S) [Mass/Vol] Ordered By: Tiarra Childs on 10-09-2022 Globulin (S) [Mass/Vol] 2.3 g/dL [facility] Hematocrit Auto (Bld) [Volum e fraction]Ordered By: Tiarra Childs on 10-09-2022 Hematocrit (Bld) [Volume fraction] 41.6 % 34.0-46.4 [facility] Hemoglobin [Mass/volume] in BloodOrdered By: Tiarra Childs on 10-09-2022 Hemoglobin (Bld) [Mass/Vol] 13.8 g/dL 11.8-15.4 [facility] Iron [Mass/volume] in Serum or PlasmaOrdered By: Tiarra Childs on 10-09-2022 Iron [Mass/Vol] 69 ug/dL 40-150 [facility] Iron binding capacity [Mass/ volume] in Serum or PlasmaOrdered By: Tiarra Childs on 10-09-2022 Iron binding capacity [Mass/Vol] 367 ug/dL 255-450 [facility] Iron saturation [Mass Fracti on] in Serum or PlasmaOrdered By: Tiarra Childs on 10-09-2022 Iron saturation [Mass fraction] 18.8 % 20-50 [facility] Laboratory - Chemistry and C hemistry - challengeOrdered By: Tiarra Childs on 10-09-2022 Cobalamin (Vitamin B12) [Mass/Vol] 394 pg/mL 180-914 [facility] Lipase [Catalytic activity/Vol] 29.0 U/L 22-51 [facility] Leukocytes [#/volume] correc paulie for nucleated erythrocytes in Blood by Automated counOrdered By: Tiarra Childs on 10-09-2022 WBC corrected for nucl RBC Auto (Bld) [#/Vol] 6.3 10*3/uL 3.8-11.6 [facility] Lymphocytes Auto (Bld) [#/Vo l]Ordered By: Tiarra Childs on 10-09-2022 Lymphocytes (Bld) [#/Vol] 1.5 10*3/uL 1.00-4.8 [facility] Lymphocytes/100 WBC Auto (Bl d)Ordered By: Tiarra Childs on 10-09-2022 Lymphocytes/100 WBC (Bld) 24.1 % . [facility] MCH Auto (RBC) [Entitic mass ]Ordered By: Tiarra Childs on 10-09-2022 MCH (RBC) [Entitic mass] 29.8 pg 24.7-34.3 [facility] MCHC Auto (RBC) [Mass/Vol]Or dered By: Tiarra Childs on 10-09-2022 MCHC (RBC) [Mass/Vol] 33.3 g/dL 32.0-35.0 [facility] MCV Auto (RBC) [Entitic vol] Ordered By: Tiarra Childs on 10-09-2022 MCV (RBC) [Entitic vol] 89.7 fL 80-100 [facility] Monocytes Auto (Bld) [#/Vol] Ordered By: Tiarra Childs on 10-09-2022 Monocytes (Bld) [#/Vol] 0.3 10*3/uL 0.0-0.8 [facility] Monocytes/100 WBC Auto (Bld) Ordered By: Tiarra Childs on 10-09-2022 Monocytes/100 WBC (Bld) 5.2 % . [facility] Neutrophils Auto (Bld) [#/Vo l]Ordered By: Tiarra Childs on 10-09-2022 Neutrophils (Bld) [#/Vol] 4.3 10*3/uL 1.8-7.7 [facility] Neutrophils/100 WBC Auto (Bl d)Ordered By: Tiarra Childs on 10-09-2022 Neutrophils/100 WBC (Bld) 69.2 % . [facility] No Panel InformationOrdered By: Tiarra Childs on 10-09-2022 25-Hydroxy Vitamin D Total 31.2 ng/mL 30-100 [facility] Comment on above: VITAMIN D STATUS 25( OH)VITAMIN D RANGE (ng/mL) Deficient <20 Insufficient 20 to <30Sufficient 30 to 100Reference: Ambar MF,Manish NC, Donis MANDEL, et al. Evaluation,treatment, and prevention of vitamin D deficiency; an Endocrine Society clinical practice guideline. JCEM. 2010; 96(7):1911-30. Anti-Nuclear Antibody Comment 2 See comment . [facility] Comment on above: For more information about Hep-2 cell patterns useBell BoardzerGreenhouse Strategies.org, the official website for the InternationalConsensus on Antinuclear Antibody (BRAVO) Patterns (ICAP). -----A positive BRAVO result may occur in healthy individuals (lowtiter) or be associated with a variety of diseases. Seeinterpretation chart which is not all inclusive:Pattern Antigen Detected Suggested Disease Association Homogeneous DNA(ds,ss), SLE - High titers Nucleosomes, Histones Drug-induced SLE Speckled Sm, SERVICE COUNSELOR, SCL-70, SLE,MCTD,PSS (diffuse form), SS-A/SS-B Sjogrens Nucleolar SCL-70, PM-1/SCL High titers Scleroderma, PM/DM Centromere Centromere PSS (limited form) w/Crest syndrome variable Nuclear Dot Sp100,[id number] Primary Biliary Cirrhosis Nuclear GP210, Primary Biliary CirrhosisMembrane phil A,B,C Performed at: [facility] [address] [id number] Director: Alf Simpson PhD, Phone: [phone] C-Peptide 3.7 ng/mL 1.1-4.4 [facility] Comment on above: C-Peptide reference interval is for fasting patients.Performed at: [facility] [facility] [address] [place] [id number] Director: Alf Simpson PhD, Phone: [phone] Estimated GFR () > 60 mL/Min [facility] Comment on above: GFR estimated refere nce range: According to KDOQI guidelines, <60 ml/min/1.73m2 is sufficient to diagnose a patient with chronic kidney disease. Pharmacy Creatinine Clearance (Chem N/A [facility] Nucleated erythrocytes [Pres ence] in Blood by Automated countOrdered By: Tiarra Childs on 10-09-2022 Nucleated RBC Auto Ql (Bld) 0.1 /100{WBC} 0-0.5 [facility] Platelet mean volume Auto (B ld) [Entitic vol]Ordered By: Tiarra Childs on 10-09-2022 Platelet mean volume (Bld) [Entitic vol] 8.4 fL 6.3-10.7 [facility] Platelets Auto (Bld) [#/Vol] Ordered By: Tiarra Childs on 10-09-2022 Platelets (Bld) [#/Vol] 303 10*3/uL 150-450 [facility] Protein [Mass/volume] in Ser um or PlasmaOrdered By: Tiarra Childs on 10-09-2022 Protein [Mass/Vol] 6.4 g/dL 6.1-7.9 [facility] RBC Auto (Bld) [#/Vol]Ordere d By: Tiarra Childs on 10-09-2022 RBC (Bld) [#/Vol] 4.64 10*6/uL 3.60-5.00 [facility] Serum nuclear antibody titer Ordered By: Tiarra Childs on 10-09-2022 Nuclear Ab (S) [Titer] Positive . [facility] Comment on above: Negative <1:80 Borde rline 1:80 Positive >1:80 Serum or plasma alanine perry otransferase measurement without P-5'-P (enzymatic activiOrdered By: Tiarra Childs on 10-09-2022 ALT No additional P-5'-P [Catalytic activity/Vol] 12 U/L 10-60 [facility] Serum or plasma albumin/glob ulin mass ratioOrdered By: Tiarra Childs on 10-09-2022 Albumin/Globulin [Mass ratio] 1.8 {ratio} [facility] Serum or plasma alkaline blair sphatase measurement (enzymatic activity/volume)Ordered By: Tiarra Childs on 10-09-2022 ALP [Catalytic activity/Vol] 54 U/L 32-92 [facility] Serum or plasma amylase michael urement (enzymatic activity/volume)Ordered By: Tiarra Childs on 10-09-2022 Amylase [Catalytic activity/Vol] 63 U/L 28-100 [facility] Serum or plasma anion gap de terminationOrdered By: Tiarra Childs on 10-09-2022 Anion gap [Moles/Vol] 12.1 mmol/L 6.0-15.0 [facility] Serum or plasma aspartate am inotransferase measurement (enzymatic activity/volume)Ordered By: Tiarra Childs on 10-09-2022 AST [Catalytic activity/Vol] 20 U/L 10-42 [facility] Serum or plasma calcium michael urement (mass/volume)Ordered By: Tiarra Childs on 10-09-2022 Calcium [Mass/Vol] 9.6 mg/dL 8.2-10.2 [facility] Serum or plasma chloride mandeep surement (moles/volume)Ordered By: Tiarra Childs on 10-09-2022 Chloride [Moles/Vol] 102 mmol/L 95-114 [facility] Serum or plasma glucose michael urement (mass/volume)Ordered By: Tiarra Childs on 10-09-2022 Glucose [Mass/Vol] 66 mg/dL 70-100 [facility] Comment on above: ADA recommended refe rence rangeRandom Glucose Reference Range is dependent on time and content of last meal. Glucose of more than 200 mg/dL in a nonstressed, ambulatory subject supports the diagnosis of Diabetes Mellitus. Serum or plasma potassium me asurement (moles/volume)Ordered By: Tiarra Childs on 10-09-2022 Potassium [Moles/Vol] 3.9 mmol/L 3.5-5.1 [facility] Serum or plasma sodium measu rement (moles/volume)Ordered By: Tiarra Childs on 10-09-2022 Sodium [Moles/Vol] 138 mmol/L 136-146 [facility] Serum or plasma total biliru bin measurement (mass/volume)Ordered By: Tiarra Childs on 10-09-2022 Bilirubin [Mass/Vol] 1.1 mg/dL 0.3-1.2 [facility] Serum or plasma total carbon dioxide measurement (moles/volume)Ordered By: Tiarra Childs on 10-09-2022 CO2 [Moles/Vol] 27.8 mmol/L 22.0-30.0 [facility] Serum or plasma urea nitroge n measurement (mass/volume)Ordered By: Tiarra Childs on 10-09-2022 Urea nitrogen [Mass/Vol] 9 mg/dL 9-23 [facility] Serum speckled pattern antin uclear antibody (BRAVO) titerOrdered By: Tiarra Childs on 10-09-2022 Speckled nuclear Ab pattern (S) [Titer] 1:80 . [facility] Comment on above: ICAP nomenclature: A C-2,4,5,29 TSH DL <= 0.005 mIU/L QnOrde red By: Tiarra Childs on 10-09-2022 TSH Qn 0.90 m[IU]/L 0.45-5.33 [facility] Thyroxine (T4) free [Mass/vo lume] in Serum or PlasmaOrdered By: Tiarra Childs on 10-09-2022 Free T4 [Mass/Vol] 0.76 ng/dL 0.61-1.12 [facility] Triiodothyronine (T3) Free [ Mass/volume] in Serum or PlasmaOrdered By: Tiarra Childs on 10-09-2022 Free T3 [Mass/Vol] 3.99 pg/mL 2.50-3.90 [facility] Urine microalbumin measureme nt with detection limit of 20 mg/L or less (mass/volume)Ordered By: Tiarra Childs on 10-09-2022 Albumin DL <= 20 mg/L (U) [Mass/Vol] 4.5 mg/dL 0.0-1.8 [facility] Urine microalbumin/creatinin e mass ratioOrdered By: Tiarra Childs on 10-09-2022 Albumin/Creatinine DL <= 20 mg/L (U) [Mass ratio] 36.0 mg/g 0.0-30.0 [facility] Comment on above: 30-300 mg/g indicate s an increased risk for diabetic nephropathy. Greater than 300 mg/g is consistent with clinical nephropathy. (Am. J. Kidney Disease 1995, 25:107) WBC Auto (Bld) [#/Vol]Ordere d By: Tiarra Childs on 10-09-2022 WBC (Bld) [#/Vol] 6.3 10*3/uL 3.8-11.6 [facility] CBC AUTO DIFFon 09-28-2022 BASO # 0.0 103/ul Normal 0.0-0.1 [facility] Comment on above: Performed By: #### C BC #### [facility] [address] [address] [address] Angelica Smith Basophils/100 WBC (Bld) 0.5 % Normal 0.2-2.0 [facility] Comment on above: Performed By: #### C BC #### [facility] [address] [address] [address] Angelica Smith EO # 0.1 103/ul Normal 0.0-0.7 [facility] Comment on above: Performed By: #### C BC #### [facility] [address] [place] [address] Dr. Angelica Smith Eosinophils/100 WBC (Bld) 1.6 % Normal 0.9-7.0 [facility] Comment on above: Performed By: #### C BC #### [facility] [address] [place] [address] Dr. Angelica Smith Erythrocyte distribution width (RBC) [Ratio] 12.4 % Normal 11.0-15.0 [facility] Comment on above: Performed By: #### C BC #### [facility] [address] [place] [address] Dr. Angelica Smith Hematocrit (Bld) [Volume fraction] 36.4 % Normal 36.0-48.0 [facility] Comment on above: Performed By: #### C BC #### [facility] [address] [place] [address] Dr. Angelica Smith Hemoglobin (Bld) [Mass/Vol] 13.3 g/dL Normal 12.0-16.0 [facility] Comment on above: Performed By: #### C BC #### [facility] [address] [place] [address] Dr. Angelica Smith IG # 0.01 10e3/ul Normal 0.00-0.03 [facility] Comment on above: Performed By: #### C BC #### [facility] [address] [place] [address] Dr. Angelica Smith IG % 0.2 % Normal 0.0-0.5 [facility] Comment on above: Performed By: #### C BC #### [facility] [address] [place] [address] Dr. Angelica Smith LYMPH # 2.0 103/ul Normal 1.2-3.8 [facility] Comment on above: Performed By: #### C BC #### [facility] [address] [place] [address] Dr. Angelica Smith Lymphocytes/100 WBC (Bld) 32.6 % Normal 20.5-60.0 [facility] Comment on above: Performed By: #### C BC #### [facility] [address] [place] [address] Dr. Angelica Smith MANUAL DIFF REQ NO Normal [facility] Comment on above: Performed By: #### C BC #### [facility] [address] [place] [address] Dr. Angelica Smith MCH (RBC) [Entitic mass] 30.3 pg Normal 26.7-34.0 [facility] Comment on above: Performed By: #### C BC #### [facility] [address] [place] [address] Dr. Angelica Smith MCHC (RBC) [Mass/Vol] 36.5 g/dL Critically high 29.9-35.2 [facility] Comment on above: Performed By: #### C BC #### [facility] [address] [place] [address] Dr. Angelica Smith MCV (RBC) [Entitic vol] 82.9 fL Normal 81.0-99.0 [facility] Comment on above: Performed By: #### C BC #### [facility] [address] [place] [address] Dr. Angelica Smith MONO # 0.4 103/ul Normal 0.3-0.8 [facility] Comment on above: Performed By: #### C BC #### [facility] [address] [place] [address] Dr. Angelica Smith Monocytes/100 WBC (Bld) 6.0 % Normal 1.7-12.0 [facility] Comment on above: Performed By: #### C BC #### [facility] [address] [place] [address] Dr. Angelica Smith NEUT # 3.7 103/ul Normal 1.4-6.5 [facility] Comment on above: Performed By: #### C BC #### [facility] [address] [place] [address] Dr. Angelica Smith Neutrophils/100 WBC (Bld) 59.1 % Normal 43.0-75.0 [facility] Comment on above: Performed By: #### C BC #### [facility] [address] [place] [address] Dr. Angelica Smith Platelet mean volume (Bld) [Entitic vol] 9.5 fL Normal 9.5-13.5 [facility] Comment on above: Performed By: #### C BC #### [facility] [address] [place] [address] Dr. Angelica Smith PLT 313 103/ul Normal 150-450 [facility] Comment on above: Performed By: #### C BC #### [facility] [address] [place] [address] Dr. Angelica Smith RBC 4.39 106/ul Normal 4.20-5.40 [facility] Comment on above: Performed By: #### C BC #### [facility] [address] [place] [address] Dr. Angelica Smith WBC 6.2 103/ul Normal 4.0-11.0 [facility] Comment on above: Performed By: #### C BC #### [facility] [address] [place] [address] Dr. Angelica Smith ER URINE PROFILEon 3 Bilirubin Ql (U) Negative Normal NEGATIVE [facility] Comment on above: Performed By: #### TOREY OJEDARO #### [facility] [address] [place] [address] Dr. Angelica Smith Clarity (U) CLEAR Normal CLEAR [facility] Comment on above: Performed By: #### TOREY OJEDARO #### [facility] [address] [place] [address] Dr. Angelica Smith Color (U) LT. YELLOW Normal YELLOW [facility] Comment on above: Performed By: #### TOREY OJEDARO #### [facility] [address] [place] [address] Dr. Angelica Smith ERUAHD A micrscopic examina tion will be performed if indicated. Normal [facility] Comment on above: Performed By: #### HOSEA OJEDAICRO #### [facility] [address] [place] [address] Dr. Angelica Smith Glucose Ql (U) Negative Normal NEGATIVE [facility] Comment on above: Performed By: #### Gladis BUSBY UMICRO #### [facility] [address] [place] [address] Dr. Angelica Smith Hemoglobin Ql (U) MODERATE Abnormal NEGATIVE [facility] Comment on above: Performed By: #### Gladis BUSBY UMICRO #### [facility] [address] [place] [address] Dr. Angelica Smith Ketones Ql (U) Negative Normal NEGATIVE [facility] Comment on above: Performed By: #### Gladis BUSBY UMICRO #### [facility] [address] [place] [address] Dr. Angelica Smith LEUKOCYTES Negative Normal NEGATIVE [facility] Comment on above: Performed By: #### Gladis BUSBY UMICRO #### [facility] [address] [place] [address] Dr. Angelica Smith Nitrite Ql (U) Negative Normal NEGATIVE [facility] Comment on above: Performed By: #### Gladis BUSBY UMICRO #### [facility] [address] [place] [address] Dr. Angelica Smith pH (U) 7.0 [pH] Normal 5-9 [facility] Comment on above: Performed By: #### Gladis BUSBY UMICRO #### [facility] [address] [place] [address] Dr. Angelica Smith SPEC GRAVITY 1.010 Normal 1.005-<=1. 025 [facility] Comment on above: Performed By: #### Gladis BUSBY UMICRO #### [facility] [address] [place] [address] Dr. Angelica Smith UA PROTEIN Negative Normal NEGATIVE/ TRACE [facility] Comment on above: Performed By: #### Gladis BUSBY UMICRO #### [facility] [address] [place] [address] Dr. Angelica Smith UR MICRO IND INDICATED Normal [facility] Comment on above: Performed By: #### Gladis BUSBY UMICRO #### [facility] [address] [place] [address] Dr. Angelica Smith Urobilinogen Qn (U) 0.2 {Sujey'U}/dL Normal 0.2 - 1. 0 [facility] Comment on above: Performed By: #### E VESTA BUSBY #### [facility] [address] [address] [address] Angelica Smith PREG QUANT HCGon 09-28-2022 HCG QUANT 1 mIU/mL Normal [facility] Comment on above: Performed By: #### B MP, PREGQNT ####[facility] [address] [address]Dr. Angelica Smith HCG RANGE SEE BELOW Normal [facility] Comment on above: Result Comment: 5-50 0.2-1 WEEK 50-500 1-2 WEEKS 100-5,000 2-3 WEEKS 500-10,000 3-4 WEEKS 1,000-50,000 4-5 WEEKS 10,000-100,000 5-6 WEEKS 15,000-200,000 6-8 WEEKS 10,000-100,000 2-3 MONTHS Performed By: #### B MP, PREGQNT ####[facility] [address] [address]Dr. Angelica Smith PROF CHEM 8 (BAS METB)on Anion gap [Moles/Vol] 11.5 mmol/L Normal Th [facility] Comment on above: Performed By: #### B MP, PREGQNT #### [facility] [address] [address] [address] Angelica Smith Calcium [Mass/Vol] 9.0 mg/dL Normal 8.5-10.1 [facility] Comment on above: Performed By: #### B MP, PREGQNT #### [facility] [address] [address] [address] Angelica Smith Chloride [Moles/Vol] 104 mmol/L Normal 98-107 [facility] Comment on above: Performed By: #### B MP, PREGQNT #### [facility] [address] [address] [address] Angelica Smith CO2 [Moles/Vol] 27.0 mmol/L Normal 21.0-32.0 [facility] Comment on above: Performed By: #### B MP, PREGQNT #### [facility] [address] [place] [address] Dr. Angelica Smith Creatinine [Mass/Vol] 0.71 mg/dL Normal 0.55-1.02 [facility] Comment on above: Performed By: #### B MP, PREGQNT #### [facility] [address] [place] [address] Dr. Angelica Smith EGFR-AF HONG KONGER >60 Normal >=60 [facility] Comment on above: Performed By: #### B MP, PREGQNT #### [facility] [address] [place] [address] Dr. Angelica Smith EGFR-NON AF [place]ONG [place]ER >60 Normal >=60 [facility] Comment on above: Performed By: #### B MP, PREGQNT #### [facility] [address] [place] [address] Dr. Angelica Smith Glucose [Mass/Vol] 92 mg/dL Normal 74-106 [facility] Comment on above: Performed By: #### B MP, PREGQNT #### [facility] [address] [place] [address] Dr. Angelica Smith Potassium [Moles/Vol] 3.5 mmol/L Normal 3.5-5.1 [facility] Comment on above: Performed By: #### B MP, PREGQNT #### [facility] [address] [place] [address] Dr. Angelica Smith Sodium [Moles/Vol] 139 mmol/L Normal 136-145 [facility] Comment on above: Performed By: #### B MP, PREGQNT #### [facility] [address] [place] [address] Dr. Angelica Smith Urea nitrogen [Mass/Vol] 8.0 mg/dL Normal 7.0-18.0 [facility] Comment on above: Performed By: #### B MP, PREGQNT #### [facility] [address] [place] [address] Dr. Angelica Smith Urea nitrogen/Creatinine [Mass ratio] 11.3 mg/mg Normal [facility] Comment on above: Performed By: #### B MP, PREGQNT #### [facility] [address] [place] [address] Dr. Angelica Smith URINE MICROSCOPIC ONLYon BACTERIA NONE SEEN Normal NONE SEEN [facility] Comment on above: Performed By: #### E RUR, UMICRO #### [facility] [address] [place] [address] Dr. Angelica Smith Bacteria identified Cx Nom (U) NOT INDICATED Normal [facility] Comment on above: Performed By: #### E RUR, UMICRO #### [facility] [address] [place] [address] Dr. Angelica Smith CAST NONE SEEN Normal NONE SEEN [facility] Comment on above: Performed By: #### E RUR, UMICRO #### [facility] [address] [place] [address] Dr. Angelica Smith Crystals LM Nom (Urine sed) NONE SEEN Normal NONE SEEN [facility] Comment on above: Performed By: #### E RUR, UMICRO #### [facility] [address] [place] [address] Dr. Angelica Smith Epithelial cells LM Ql (Urine sed) FEW Abnormal NONE SEEN /RARE [facility] Comment on above: Performed By: #### E RUR, UMICRO #### [facility] [address] [place] [address] Dr. Angelica Smith MUCOUS NONE SEEN Normal NONE SEEN [facility] Comment on above: Performed By: #### E RUR, UMICRO #### [facility] [address] [place] [address] Dr. Angelica Smith RBC 0-2 Normal 0-2 [facility] Comment on above: Performed By: #### E RUR, UMICRO #### [facility] [address] [place] [address] Dr. Angelica Smith WBC NONE SEEN Normal NONE SEEN [facility] Comment on above: Performed By: #### E RUR, UMICRO #### [facility] [address] [place] [address] Dr. Angelica Smith PREG QUANT HCGon 09-24-2022 HCG QUANT 7 mIU/mL Normal [facility] Comment on above: Performed By: #### P REGQNT #### [facility] [address] [place] [address] Dr. Angelica Smith HCG RANGE SEE BELOW Normal [facility] Comment on above: Result Comment: 5-50 0.2-1 WEEK 50-500 1-2 WEEKS 100-5,000 2-3 WEEKS 500-10,000 3-4 WEEKS 1,000-50,000 4-5 WEEKS 10,000-100,000 5-6 WEEKS 15,000-200,000 6-8 WEEKS 10,000-100,000 2-3 MONTHS Performed By: #### P REGQNT #### [facility] [address] [place] [address] Dr. Angelica Smith PREG QUANT HCGon 09-22-2022 HCG QUANT 14 mIU/mL Normal [facility] Comment on above: Performed By: #### P REGQNT #### [facility] [address] [place] [address] Dr. Angelica Smith HCG RANGE SEE BELOW Normal [facility] Comment on above: Result Comment: 5-50 0.2-1 WEEK 50-500 1-2 WEEKS 100-5,000 2-3 WEEKS 500-10,000 3-4 WEEKS 1,000-50,000 4-5 WEEKS 10,000-100,000 5-6 WEEKS 15,000-200,000 6-8 WEEKS 10,000-100,000 2-3 MONTHS Performed By: #### P REGQNT #### [facility] [address] [place] [address] Dr. Angelica Smith Albumin [Mass/volume] in Ser um or PlasmaOrdered By: Donavon Yanes on 08-11-2022 Albumin [Mass/Vol] 4.0 g/dL 3.2-5.5 [facility] Bilirubin Test strip Ql (U)O rdered By: Donavon Yanes on 08-11-2022 Bilirubin Ql (U) Negative Negative [facility] Color Auto (U)Ordered By: Kunal jennifer Joaquín on 08-11-2022 Color (U) Yellow Yellow [facility] Creatinine and Glomerular fi ltration rate.predicted panel (S/P/Bld)Ordered By: Donavon Yanes on 08-11-2022 Creatinine [Mass/Vol] 0.71 mg/dL 0.44-1.03 [facility] Direct bilirubin measurement Ordered By: Donavon Yanes on 08-11-2022 Bilirubin.direct [Mass/Vol] 0.2 mg/dL 0.0-0.4 [facility] Estimated glomerular filtrat ion rate (GFR) non- AmericanOrdered By: Donavon Yanes on 08-11-2022 GFR/1.73 sq M.predicted among non-blacks MDRD (S/P/Bld) [Vol rate/Area] > 60 mL/Min [facility] Globulin Calc (S) [Mass/Vol] Ordered By: Donavon Yanes on 08-11-2022 Globulin (S) [Mass/Vol] 2.9 g/dL F [facility] Ketones Auto test strip (U) [Mass/Vol]Ordered By: Donavon Yanes on 08-11-2022 Ketones (U) [Mass/Vol] Negative Negative Fi [facility] Nitrite Test strip Ql (U)Ord ered By: Donavon Yanes on 08-11-2022 Nitrite Ql (U) Negative Negative [facility] No Panel InformationOrdered By: Donavon Yanes on 08-11-2022 Estimated GFR () > 60 mL/Min [facility] Comment on above: GFR estimated refere nce range: According to KDOQI guidelines, <60 ml/min/1.73m2 is sufficient to diagnose a patient with chronic kidney disease. Pharmacy Creatinine Clearance (Chem N/A [facility] Protein Auto test strip (U) [Mass/Vol]Ordered By: Donavon Yanes on 08-11-2022 Protein (U) [Mass/Vol] Negative Negative Fi [facility] Protein [Mass/volume] in Ser um or PlasmaOrdered By: Donavon Yanes on 08-11-2022 Protein [Mass/Vol] 6.9 g/dL 6.1-7.9 [facility] Serum or plasma alanine perry otransferase measurement without P-5'-P (enzymatic activiOrdered By: Donavon Yanes on 08-11-2022 ALT No additional P-5'-P [Catalytic activity/Vol] 12 U/L 10-60 [facility] Serum or plasma albumin/glob ulin mass ratioOrdered By: Donavon Yanes on 08-11-2022 Albumin/Globulin [Mass ratio] 1.4 {ratio} [facility] Serum or plasma alkaline blair sphatase measurement (enzymatic activity/volume)Ordered By: Donavon Yanes on 08-11-2022 ALP [Catalytic activity/Vol] 47 U/L 32-92 [facility] Serum or plasma anion gap de terminationOrdered By: Donavon Yanes on 08-11-2022 Anion gap [Moles/Vol] 8.3 mmol/L 6.0-15.0 [facility] Serum or plasma aspartate am inotransferase measurement (enzymatic activity/volume)Ordered By: Donavon Yanes on 08-11-2022 AST [Catalytic activity/Vol] 19 U/L 10-42 [facility] Serum or plasma calcium michael urement (mass/volume)Ordered By: Donavon Yanes on 08-11-2022 Calcium [Mass/Vol] 9.4 mg/dL 8.2-10.2 [facility] Serum or plasma chloride mandeep surement (moles/volume)Ordered By: Donavon Yanes on 08-11-2022 Chloride [Moles/Vol] 104 mmol/L 95-114 [facility] Serum or plasma glucose michael urement (mass/volume)Ordered By: Donavon Yanes on 08-11-2022 Glucose [Mass/Vol] 81 mg/dL 70-100 [facility] Comment on above: ADA recommended refe rence rangeRandom Glucose Reference Range is dependent on time and content of last meal. Glucose of more than 200 mg/dL in a nonstressed, ambulatory subject supports the diagnosis of Diabetes Mellitus. Serum or plasma non-glucuron idated bilirubin measurement (mass/volume)Ordered By: Donavon Yanes on 08-11-2022 Bilirubin.indirect [Mass/Vol] 2.0 mg/dL [facility] Serum or plasma potassium me asurement (moles/volume)Ordered By: Donavon Yanes on 08-11-2022 Potassium [Moles/Vol] 3.9 mmol/L 3.5-5.1 [facility] Serum or plasma sodium measu rement (moles/volume)Ordered By: Donavon Yanes on 08-11-2022 Sodium [Moles/Vol] 135 mmol/L 136-146 [facility] Serum or plasma total biliru bin measurement (mass/volume)Ordered By: Donavon Yanes on 08-11-2022 Bilirubin [Mass/Vol] 2.2 mg/dL 0.3-1.2 [facility] Comment on above: Samples from patient s who have taken Naproxen have shown spurious elevation in Total Bilirubin levels. A metabolite of Naproxen, O-desmethylnaproxen, has been shown to interfere with the Oren-Jarek method for measuring Total Bilirubin. Serum or plasma total carbon dioxide measurement (moles/volume)Ordered By: Donavon Yanes on 08-11-2022 CO2 [Moles/Vol] 26.6 mmol/L 22.0-30.0 [facility] [facility] Serum or plasma urea nitroge n measurement (mass/volume)Ordered By: Donavon Yanes on 08-11-2022 Urea nitrogen [Mass/Vol] 10 mg/dL - [facility] Specific gravity Auto test s trip (U) [Rel density]Ordered By: Donavon Yanes on 08-11-2022 Specific gravity (U) [Rel density] 1.007 1.001-1.03 0 [facility] Urine clarity by refractomet ry automatedOrdered By: Donavon Yanes on 08-11-2022 Clarity Refractometry automated (U) Clear Clear [facility] Urine glucose measurement by automated test strip (mass/volume)Ordered By: Donavon Yanes on 08-11-2022 Glucose Auto test strip (U) [Mass/Vol] Normal mg/dL Normal [facility] Urine hemoglobin detection b y automated test stripOrdered By: Donavon Yanes on 08-11-2022 Hemoglobin Auto test strip Ql (U) Negative Negative [facility] Urine leukocyte esterase det ection by automated test stripOrdered By: Donavon Yanes on 08-11-2022 Leukocyte esterase Auto test strip Ql (U) Negative Negative [facility] Urobilinogen Auto test strip (U) [Mass/Vol]Ordered By: Donavon Yanes on 08-11-2022 Urobilinogen (U) [Mass/Vol] Normal mg/dL Normal [facility] pH Auto test strip (U)Ordere d By: Donavon Yanes on 08-11-2022 pH (U) 6.0 [pH] 5.0-9.0 [facility] Albumin [Mass/volume] in Ser um or PlasmaOrdered By: Donavon Yanes on 06-18-2022 Albumin [Mass/Vol] 4.2 g/dL 3.2-5.5 [facility] Basophils Auto (Bld) [#/Vol] Ordered By: Donavon Yanes on 06-18-2022 Basophils (Bld) [#/Vol] 0.0 10*3/uL 0.0-0.2 [facility] Basophils/100 WBC Auto (Bld) Ordered By: Donavon Yanes on 06-18-2022 Basophils/100 WBC (Bld) 0.5 % . [facility] Blood hemoglobin measurement (mass/volume)Ordered By: Donavon Yanes on 06-18-2022 Hemoglobin (Bld) [Mass/Vol] 13.3 g/dL 11.8-15.4 [facility] Blood leukocytes automated c ount (number/volume)Ordered By: Donavon Yanes on 06-18-2022 WBC (Bld) [#/Vol] 6.9 10*3/uL 4.5-11.0 [facility] Cholesterol [Mass/volume] in Serum or PlasmaOrdered By: Donavon Yanes on 06-18-2022 Cholesterol [Mass/Vol] 143 mg/dL 140-200 [facility] Comment on above: Chol less than 200 m g/dl low riskChol 201-239 mg/dl borderline riskChol 240 mg/dl and greater high risk Cholesterol in LDL Calc [Mas s/Vol]Ordered By: Donavon Yanes on 06-18-2022 Cholesterol in LDL [Mass/Vol] 83 mg/dL 0-100 [facility] Comment on above: LDL ATP III CLASSIFI CATIONLDL less than 100 mg/dL OptimalLDL 100-129 mg/dL Near or above optimalLDL 130-159 mg/dL Borderline highLDL 160-189 mg/dL HighLDL greater than 189 mg/dL Very high Cholesterol in VLDL Calc [Ma ss/Vol]Ordered By: Donavon Yanes on 06-18-2022 Cholesterol in VLDL [Mass/Vol] 14 mg/dL [facility] Creatinine [Mass/volume] in UrineOrdered By: Donavon Yanes on 06-18-2022 Creatinine (U) [Mass/Vol] 113.4 mg/dL [facility] Comment on above: No reference range e stablished Creatinine and Glomerular fi ltration rate.predicted panel (S/P/Bld)Ordered By: Donavon Yanes on 06-18-2022 Creatinine [Mass/Vol] 0.70 mg/dL 0.44-1.03 [facility] Eosinophils Auto (Bld) [#/Vo l]Ordered By: Donavon Yanes on 06-18-2022 Eosinophils (Bld) [#/Vol] 0.1 10*3/uL 0.0-0.45 [facility] Eosinophils/100 WBC Auto (Bl d)Ordered By: Donavon Yanes on 06-18-2022 Eosinophils/100 WBC (Bld) 0.9 % . [facility] Erythrocyte distribution wid th Auto (RBC) [Ratio]Ordered By: Donavon Yanes on 06-18-2022 Erythrocyte distribution width (RBC) [Ratio] 12.4 % 11.9-15.3 [facility] Estimated glomerular filtrat ion rate (GFR) non- AmericanOrdered By: Donavon Yanes on 06-18-2022 GFR/1.73 sq M.predicted among non-blacks MDRD (S/P/Bld) [Vol rate/Area] > 60 mL/Min [facility] Globulin Calc (S) [Mass/Vol] Ordered By: Donavon Yanes on 06-18-2022 Globulin (S) [Mass/Vol] 2.5 g/dL [facility] Glucose mean value [Mass/vol ume] in Blood Estimated from glycated hemoglobinOrdered By: Donavon Yanes on 06-18-2022 Average glucose Estimated from glycated hemoglobin (Bld) [Mass/Vol] 100 mg/dL [facility] Hematocrit Auto (Bld) [Volum e fraction]Ordered By: Donavon Yanes on 06-18-2022 Hematocrit (Bld) [Volume fraction] 39.3 % 34.0-46.4 [facility] Hemoglobin A1c percentageOrd ered By: Donavon Yanes on 06-18-2022 HbA1c (Bld) [Mass fraction] 5.1 % 4.3-5.6 [facility] Comment on above: Increased risk for d iabetes: 5.7 - 6.4diabetes: >6.4glycemic control for adults with diabetes: <7.0 Laboratory - Hematology and Cell countsOrdered By: Donavon Yanes on 06-18-2022 Nucleated RBC/100 WBC (Bld) [Ratio] 0.1 % 0-0.5 [facility] Lymphocytes Auto (Bld) [#/Vo l]Ordered By: Donavon Yanes on 06-18-2022 Lymphocytes (Bld) [#/Vol] 1.9 10*3/uL 1.00-4.8 [facility] Lymphocytes/100 WBC Auto (Bl d)Ordered By: Donavon Yanes on 06-18-2022 Lymphocytes/100 WBC (Bld) 27.9 % . [facility] MCH Auto (RBC) [Entitic mass ]Ordered By: Donavon Yanes on 06-18-2022 MCH (RBC) [Entitic mass] 30.5 pg 24.7-34.3 [facility] MCHC Auto (RBC) [Mass/Vol]Or dered By: Donavon Yanes on 06-18-2022 MCHC (RBC) [Mass/Vol] 33.7 g/dL 32.0-35.0 [facility] MCV Auto (RBC) [Entitic vol] Ordered By: Donavon Yanes on 06-18-2022 MCV (RBC) [Entitic vol] 90.2 fL 80-100 [facility] Monocytes Auto (Bld) [#/Vol] Ordered By: Donavon Yanes on 06-18-2022 Monocytes (Bld) [#/Vol] 0.3 10*3/uL 0.0-0.8 [facility] Monocytes/100 WBC Auto (Bld) Ordered By: Donavon Yanes on 06-18-2022 Monocytes/100 WBC (Bld) 4.9 % . [facility] Neutrophils Auto (Bld) [#/Vo l]Ordered By: Donavon Yanes on 06-18-2022 Neutrophils (Bld) [#/Vol] 4.6 10*3/uL 1.8-7.7 [facility] Neutrophils/100 WBC Auto (Bl d)Ordered By: Donavon Yanes on 06-18-2022 Neutrophils/100 WBC (Bld) 65.8 % . [facility] No Panel InformationOrdered By: Donavon Yanes on 06-18-2022 Estimated GFR () > 60 mL/Min [facility] Comment on above: GFR estimated refere nce range: According to KDOQI guidelines, <60 ml/min/1.73m2 is sufficient to diagnose a patient with chronic kidney disease. Pharmacy Creatinine Clearance (Chem N/A [facility] Platelet mean volume Auto (B ld) [Entitic vol]Ordered By: Donavon Yanes on 06-18-2022 Platelet mean volume (Bld) [Entitic vol] 8.8 fL 6.3-10.7 [facility] Platelets Auto (Bld) [#/Vol] Ordered By: Donavon Yanes on 06-18-2022 Platelets (Bld) [#/Vol] 307 10*3/uL 150-450 [facility] Protein [Mass/volume] in Ser um or PlasmaOrdered By: Donavon Yanes on 06-18-2022 Protein [Mass/Vol] 6.7 g/dL 6.1-7.9 [facility] RBC Auto (Bld) [#/Vol]Ordere d By: Donavon Yanes on 06-18-2022 RBC (Bld) [#/Vol] 4.36 10*6/uL 3.60-5.00 [facility] Serum or plasma alanine perry otransferase measurement without P-5'-P (enzymatic activiOrdered By: Donavon Yanes on 06-18-2022 ALT No additional P-5'-P [Catalytic activity/Vol] 14 U/L 10-60 [facility] Serum or plasma albumin/glob ulin mass ratioOrdered By: Donavon Yanes on 06-18-2022 Albumin/Globulin [Mass ratio] 1.7 {ratio} [facility] Serum or plasma alkaline blair sphatase measurement (enzymatic activity/volume)Ordered By: Donavon Yanes on 06-18-2022 ALP [Catalytic activity/Vol] 49 U/L 32-92 [facility] Serum or plasma anion gap de terminationOrdered By: Donavon Yanes on 06-18-2022 Anion gap [Moles/Vol] 10.0 mmol/L 6.0-15.0 [facility] Serum or plasma aspartate am inotransferase measurement (enzymatic activity/volume)Ordered By: Donavon Yanes on 06-18-2022 AST [Catalytic activity/Vol] 19 U/L 10-42 [facility] Serum or plasma calcium michael urement (mass/volume)Ordered By: Donavon Yanes on 06-18-2022 Calcium [Mass/Vol] 9.4 mg/dL 8.2-10.2 [facility] Serum or plasma chloride mandeep surement (moles/volume)Ordered By: Donavon Yanes on 06-18-2022 Chloride [Moles/Vol] 103 mmol/L 95-114 [facility] Serum or plasma glucose michael urement (mass/volume)Ordered By: Donavon Yanes on 06-18-2022 Glucose [Mass/Vol] 86 mg/dL 70-100 [facility] Comment on above: ADA recommended refe rence rangeRandom Glucose Reference Range is dependent on time and content of last meal. Glucose of more than 200 mg/dL in a nonstressed, ambulatory subject supports the diagnosis of Diabetes Mellitus. Serum or plasma high density lipoprotein (HDL) cholesterol measurementOrdered By: Donavon Yanes on 06-18-2022 Cholesterol in HDL [Mass/Vol] 46 mg/dL 35-85 [facility] Comment on above: HDL CHOL ATP-III CLA SSIFICATION Cardiovascular RiskHDL > or equal to 60 mg/dL LOWHDL < 40 mg/dL HIGH Serum or plasma potassium me asurement (moles/volume)Ordered By: Donavon Yanes on 06-18-2022 Potassium [Moles/Vol] 3.7 mmol/L 3.5-5.1 [facility] Serum or plasma sodium measu rement (moles/volume)Ordered By: Donavon Yanes on 06-18-2022 Sodium [Moles/Vol] 136 mmol/L 136-146 [facility] Serum or plasma total biliru bin measurement (mass/volume)Ordered By: Donavon Yanes on 06-18-2022 Bilirubin [Mass/Vol] 1.9 mg/dL 0.3-1.2 [facility] Comment on above: Samples from patient s who have taken Naproxen have shown spurious elevation in Total Bilirubin levels. A metabolite of Naproxen, O-desmethylnaproxen, has been shown to interfere with the Radhika method for measuring Total Bilirubin. Serum or plasma total carbon dioxide measurement (moles/volume)Ordered By: Donavon Yanes on 06-18-2022 CO2 [Moles/Vol] 26.7 mmol/L 22.0-30.0 [facility] Serum or plasma total choles terol/high density lipoprotein (HDL) cholesterol mass ratOrdered By: Donavon Yanes on 06-18-2022 Cholesterol.total/Adriana sterol in HDL [Mass ratio] 3.1 {ratio} <5.0 [facility] Serum or plasma urea nitroge n measurement (mass/volume)Ordered By: Donavon Yanes on 06-18-2022 Urea nitrogen [Mass/Vol] 5 mg/dL 9-23 [facility] TSH DL <= 0.005 mIU/L QnOrde red By: Donavon Yanes on 06-18-2022 TSH Qn 0.74 m[IU]/L 0.45-5.33 [facility] Thyroxine (T4) free [Mass/vo lume] in Serum or PlasmaOrdered By: Donavon Yanes on 06-18-2022 Free T4 [Mass/Vol] 0.86 ng/dL 0.61-1.12 [facility] Triglyceride [Mass/volume] i n Serum or PlasmaOrdered By: Donavon Yanes on 06-18-2022 Triglyceride [Mass/Vol] 70 mg/dL 35-149 [facility] Comment on above: TRIG ATP III [...] 20 mg/L (U) [Mass/Vol] 67.2 mg/dL 0.0-1.8 [facility] Urine microalbumin/creatinin e mass ratioOrdered By: Donavon Yanes on 06-18-2022 Albumin/Creatinine DL <= 20 mg/L (U) [Mass ratio] 592.0 mg/g 0.0-30.0 [facility] Comment on above: 30-300 mg/g indicate s an increased risk for diabetic nephropathy. Greater than 300 mg/g is consistent with clinical nephropathy. (Am. J. Kidney Disease 1995, 25:107) PAP ACOG PANEL 2: 20 to 28on 03-19-2022 . . Normal [facility] Comment on above: Performed By: #### [id number] #### [facility] [address] [address] [address] Angelica Smith Age Gdln ACOG Testing - [facility] Comment on above: Performed By: #### [id number] #### [facility] [address] [address] [address] Angelica Smith DIAGNOSIS: Comment [facility] Comment on above: Result Comment: NEGA TIVE FOR INTRAEPITHELIAL LESION OR MALIGNANCY. Performed By: #### [id number] #### [facility] [address] [address] [address] Angelica Smith Methodology: Comment [facility] Comment on above: Result Comment: This liquid based ThinPrep(R) pap test was screened with the use of an image guided system. Performed By: #### [id number] #### [facility] [address] [address] [address] Angelica Smith Note: Comment [facility] Comment on above: Result Comment: The Pap smear is a screening test designed to aid in the detection of premalignant and malignant conditions of the uterine cervix. It is not a diagnostic procedure and should not be used as the sole means of detecting cervical cancer. Both false-positive and false-negative reports do occur. . Performed By: #### [id number] #### [facility] [address] [address] [address] Angelica Smith Performed by: Comment Normal [facility] Comment on above: Result Comment: Sherry Torres, Skin Care Technician (ASCP) Performed By: #### [id number] #### [facility] [address] [address] [address] Angelica Smith Reflex Criteria: Comment Normal [facility] Comment on above: Result Comment: The HPV DNA reflex criteria were not met with this specimen result therefore, no HPV testing was performed. . Performed By: #### [id number] #### [facility] [address] [place] [address] Dr. Angelica Smith Specimen adequacy: Comment Normal [facility] Comment on above: Result Comment: Sati sfactory for evaluation. Endocervical and/or squamous metaplastic cells (endocervical component) are present. Performed By: #### [id number] #### [facility] [address] [place] [address] Dr. Angelica Smith Vital Signs Date Time Vital Sign Value Performing Clinician Facility 01-20-2025 13:00-0400 Hourly Rounding [facility] 01-20-2025 13:00-0400 Promise to Return Miro [facility] 01-20-2025 12:08-0400 Heart rate 72 /min [facility] 01-20-2025 12:08-0400 SaO2% (BldA) [Mass fraction] 100 % [facility] 01-20-2025 12:07-0400 Respiratory rate 18 /min [facility] 01-20-2025 12:07-0400 Diastolic blood pressure 66 mm[Hg] [facility] 01-20-2025 12:07-0400 Mean blood pressure 79 mm[Hg] [facility] 01-20-2025 12:07-0400 Systolic blood pressure 105 mm[Hg] [facility] 01-20-2025 12:06-0400 Body temperature 97.7 [degF] [facility] 01-20-2025 12:00-0400 Hourly Rounding [facility] 01-20-2025 12:00-0400 Promise to Return [facility] 01-20-2025 11:00-0400 Hourly Rounding [facility] 01-20-2025 11:00-0400 Promise to Return [facility] 01-20-2025 09:41-0400 SaO2% (BldA) [Mass fraction] 100 % [facility] 01-20-2025 09:40-0400 Respiratory rate 17 /min [facility] 01-20-2025 09:40-0400 Heart rate 51 /min [facility] 01-20-2025 09:40-0400 SaO2% (BldA) [Mass fraction] 100 % [facility] 01-20-2025 09:40-0400 Body temperature 97.88 [degF] [facility] 01-20-2025 09:40-0400 Diastolic blood pressure 69 mm[Hg] [facility] 01-20-2025 09:40-0400 Mean blood pressure 78 mm[Hg] [facility] 01-20-2025 09:40-0400 Systolic blood pressure 95 mm[Hg] [facility] 01-20-2025 09:30-0400 Respiratory rate 20 /min [facility] 01-20-2025 09:30-0400 Heart rate 61 /min [facility] 01-20-2025 09:30-0400 Diastolic blood pressure 75 mm[Hg] [facility] 01-20-2025 09:30-0400 Mean blood pressure 85 mm[Hg] [facility] 01-20-2025 09:30-0400 Systolic blood pressure 104 mm[Hg] [facility] 01-20-2025 09:25-0400 Respiratory rate 17 /min [facility] 01-20-2025 09:25-0400 Mean blood pressure 88 mm[Hg] [facility] 01-20-2025 09:15-0400 Body temperature 97.7 [degF] [facility] 01-20-2025 05:25-0400 Blood Pressure Location [facility] 01-20-2025 05:25-0400 Body temperature 97.7 [degF] [facility] 01-20-2025 05:25-0400 Respiratory rate 16 /min [facility] 01-19-2025 23:23-0400 Blood Pressure Location [facility] 01-19-2025 23:23-0400 Respiratory rate 14 /min [facility] 01-19-2025 18:04-0400 Heart rate 73 /min [facility] 01-16-2025 08:28-0400 Body height 175.3 cm Ginny Lause PRESCRIPTIONIST Work Phone: [facility] 01-16-2025 08:28-0400 Body mass index (BMI) [Ratio] 20.38 kg/m2 Ginny Lause PRESCRIPTIONIST Work Phone: [facility] 01-16-2025 08:28-0400 Body temperature 97.5 [degF] Ginny Lause PRESCRIPTIONIST Work Phone: [facility] 01-16-2025 08:28-0400 Body weight 62.6 kg Ginny Lause PRESCRIPTIONIST Work Phone: [facility] 01-16-2025 08:28-0400 Diastolic blood pressure 70 mm[Hg] Ginny Lause PRESCRIPTIONIST Work Phone: [facility] 01-16-2025 08:28-0400 Heart rate 70 /min Ginny Lause PRESCRIPTIONIST Work Phone: [facility] 01-16-2025 08:28-0400 Respiratory rate 20 /min Ginny Lause PRESCRIPTIONIST Work Phone: [facility] 01-16-2025 08:28-0400 SaO2% (BldA) [Mass fraction] 100 % Ginny Lause PRESCRIPTIONIST Work Phone: [facility] 01-16-2025 08:28-0400 Systolic blood pressure 118 mm[Hg] Ginny Quach PRESCRIPTIONIST Work Phone: [facility] 01-12-2025 18:18-0400 Body height 175.26 cm [facility] 01-12-2025 18:18-0400 Body mass index (BMI) [Ratio] 19.2 kg/m2 [facility] 01-12-2025 18:18-0400 Body temperature 98.5 [degF] [facility] 01-12-2025 18:18-0400 Body weight 58.96 kg [facility] 01-12-2025 18:18-0400 Diastolic blood pressure 64 mm[Hg] [facility] 01-12-2025 18:18-0400 Heart rate 102 /min [facility] 01-12-2025 18:18-0400 SaO2% (BldA) [Mass fraction] 97 % [facility] 01-12-2025 18:18-0400 Systolic blood pressure 95 mm[Hg] [facility] 11-03-2024 19:03-0500 Body mass index (BMI) [Ratio] 20.38 kg/m2 Guillaume Conti DO Work Phone: [facility] 11-03-2024 19:03-0500 Body temperature 98.01 [degF] Guillaume Conti DO Work Phone: [facility] 11-03-2024 19:03-0500 Body weight 62.6 kg Guillaume Conti DO Work Phone: [facility] 11-03-2024 19:03-0500 Diastolic blood pressure 68 mm[Hg] Guillaume Conti DO Work Phone: [facility] 11-03-2024 19:03-0500 Heart rate 98 /min Guillaume Conti DO Work Phone: [facility] 11-03-2024 19:03-0500 SaO2% (BldA) [Mass fraction] 98 % Guillaume Conti DO Work Phone: [facility] 11-03-2024 19:03-0500 Systolic blood pressure 102 mm[Hg] Guillaume Conti DO Work Phone: [facility] 10-19-2024 16:28-0500 Body height 175.3 cm Raeann Jang PRESCRIPTIONIST Work Phone: [facility] 10-19-2024 16:28-0500 Body mass index (BMI) [Ratio] 20.38 kg/m2 Raeann Torreschol PRESCRIPTIONIST Work Phone: [facility] 10-19-2024 16:28-0500 Body temperature 97.3 [degF] Raeann Brianchol PRESCRIPTIONIST Work Phone: [facility] 10-19-2024 16:28-0500 Body weight 62.6 kg Raeann Torreschol PRESCRIPTIONIST Work Phone: [facility] 10-19-2024 16:28-0500 Diastolic blood pressure 70 mm[Hg] Raeann Torreschol PRESCRIPTIONIST Work Phone: [facility] 10-19-2024 16:28-0500 Heart rate 64 /min Raeann Torreschol PRESCRIPTIONIST Work Phone: [facility] 10-19-2024 16:28-0500 SaO2% (BldA) [Mass fraction] 100 % Raeann Torreschol PRESCRIPTIONIST Work Phone: [facility] 10-19-2024 16:28-0500 Systolic blood pressure 108 mm[Hg] Raeann Torreschol PRESCRIPTIONIST Work Phone: [facility] 10-11-2024 11:39-0500 Body mass index (BMI) [Ratio] 20.48 kg/m2 Raeann Mahoney PA Work Phone: [facility] 10-11-2024 11:39-0500 Body weight 62.91 kg Raeann Mahoney PA Work Phone: [facility] 10-11-2024 11:39-0500 Diastolic blood pressure 70 mm[Hg] Raeann Mahoney PA Work Phone: [facility] 10-11-2024 11:39-0500 Systolic blood pressure 110 mm[Hg] Raeann Mahoney PA Work Phone: [facility] 08-30-2024 15:06-0500 Body mass index (BMI) [Ratio] 22.71 kg/m2 Jhonathan Keila DO Work Phone: [facility] 08-30-2024 15:06-0500 Body weight 69.76 kg Jhonathan Keila DO Work Phone: [facility] 08-30-2024 15:06-0500 Diastolic blood pressure 62 mm[Hg] Jhonathan Keila DO Work Phone: [facility] 08-30-2024 15:06-0500 Systolic blood pressure 98 mm[Hg] Jhonathan Keila DO Work Phone: [facility] 08-22-2024 15:07-0500 Body mass index (BMI) [Ratio] 23.16 kg/m2 Jhonathan Keila DO Work Phone: [facility] 08-22-2024 15:07-0500 Body weight 71.12 kg Jhonathan Keila DO Work Phone: [facility] 08-22-2024 15:07-0500 Diastolic blood pressure 70 mm[Hg] Jhonathan Keila DO Work Phone: [facility] 08-22-2024 15:07-0500 Systolic blood pressure 114 mm[Hg] Jhonathan Keila DO Work Phone: [facility] 08-16-2024 08:49-0500 Body mass index (BMI) [Ratio] 22.32 kg/m2 Raeann CHOUDHURY Work Phone: [facility] 08-16-2024 08:49-0500 Body weight 68.55 kg Raeann CHOUDHURY Work Phone: [facility] 08-16-2024 08:49-0500 Diastolic blood pressure 60 mm[Hg] Raeann CHOUDHURY Work Phone: [facility] 08-16-2024 08:49-0500 Systolic blood pressure 100 mm[Hg] Raeann CHOUDHURY Work Phone: [facility] 08-03-2024 09:12-0500 Body mass index (BMI) [Ratio] 22.36 kg/m2 Jhonathan Keila DO Work Phone: [facility] 08-03-2024 09:12-0500 Body weight 68.67 kg Jhonathan Keila DO Work Phone: [facility] 08-03-2024 09:12-0500 Diastolic blood pressure 64 mm[Hg] Jhonathan Keila DO Work Phone: [facility] 08-03-2024 09:12-0500 Systolic blood pressure 102 mm[Hg] Jhonathan Keila DO Work Phone: [facility] 07-18-2024 08:56-0400 Body mass index (BMI) [Ratio] 22.15 kg/m2 Raeann Maru PA Work Phone: [facility] 07-18-2024 08:56-0400 Body weight 68.04 kg Raeann Maru PA Work Phone: [facility] 07-18-2024 08:56-0400 Diastolic blood pressure 62 mm[Hg] Raeann [place] PA Work Phone: [facility] 07-18-2024 08:56-0400 Systolic blood pressure 102 mm[Hg] Raeann Maru PA Work Phone: [facility] 07-04-2024 10:01-0400 Body mass index (BMI) [Ratio] 21.71 kg/m2 Raeann [place] PA Work Phone: [facility] 07-04-2024 10:01-0400 Body weight 66.68 kg Raeann Maru PA Work Phone: [facility] 07-04-2024 10:01-0400 Diastolic blood pressure 60 mm[Hg] Raeann Maru PA Work Phone: [facility] 07-04-2024 10:01-0400 Systolic blood pressure 100 mm[Hg] Raeann [place] PA Work Phone: [facility] 06-19-2024 14:16-0400 Body mass index (BMI) [Ratio] 21.71 kg/m2 Jhonathan Keila DO Work Phone: [facility] 06-19-2024 14:16-0400 Body weight 66.68 kg Jhonathan Keila DO Work Phone: [facility] 06-19-2024 14:16-0400 Diastolic blood pressure 64 mm[Hg] Jhonathan Keila DO Work Phone: [facility] 06-19-2024 14:16-0400 Systolic blood pressure 100 mm[Hg] Jhonathan Keila DO Work Phone: [facility] 05-26-2024 10:53-0400 Body mass index (BMI) [Ratio] 20.08 kg/m2 Roselyn Rinkes DO Work Phone: [facility] 05-26-2024 10:53-0400 Body weight 61.69 kg Roselyn Rinkes DO Work Phone: [facility] 05-26-2024 10:53-0400 Diastolic blood pressure 62 mm[Hg] Roselyn Rinkes DO Work Phone: [facility] 05-26-2024 10:53-0400 Systolic blood pressure 110 mm[Hg] Roselyn Rinkes DO Work Phone: [facility] 05-23-2024 12:00-0400 Body temperature 97.7 [degF] PRESCRIPTIONIST-C Raeann Warchol Work Phone: [facility] 05-23-2024 12:00-0400 Diastolic blood pressure 63 mm[Hg] PRESCRIPTIONIST-C Raeann Warchol Work Phone: [facility] 05-23-2024 12:00-0400 Heart rate 74 /min PRESCRIPTIONIST-C Raeann Warchol Work Phone: [facility] 05-23-2024 12:00-0400 Respiratory rate 16 /min PRESCRIPTIONIST-C Raeann Warchol Work Phone: [facility] 05-23-2024 12:00-0400 SaO2% (BldA) [Mass fraction] 98 % PRESCRIPTIONIST-C Raeann Warchol Work Phone: [facility] 05-23-2024 12:00-0400 Systolic blood pressure 95 mm[Hg] PRESCRIPTIONIST-C Raeann Warchol Work Phone: [facility] 05-23-2024 11:36-0400 Body height 175.26 cm PRESCRIPTIONIST-C Raeann Warchol Work Phone: [facility] 05-23-2024 11:36-0400 Body weight 62.14 kg PRESCRIPTIONIST-C Raeann Warchol Work Phone: [facility] 10-21-2023 09:48-0500 Body height 175.3 cm Raeann Warchol PRESCRIPTIONIST Work Phone: [facility] 10-21-2023 09:48-0500 Body mass index (BMI) [Ratio] 19.05 kg/m2 Raeann Warchol PRESCRIPTIONIST Work Phone: [facility] 10-21-2023 09:48-0500 Body temperature 98.2 [degF] Raeann Warchol PRESCRIPTIONIST Work Phone: [facility] 10-21-2023 09:48-0500 Body weight 58.51 kg Raeann Warchol PRESCRIPTIONIST Work Phone: [facility] 10-21-2023 09:48-0500 Diastolic blood pressure 60 mm[Hg] Raeann Warchol PRESCRIPTIONIST Work Phone: [facility] 10-21-2023 09:48-0500 Heart rate 81 /min Raeann Warchol PRESCRIPTIONIST Work Phone: [facility] 10-21-2023 09:48-0500 SaO2% (BldA) [Mass fraction] 100 % Raeann Warchol PRESCRIPTIONIST Work Phone: [facility] 10-21-2023 09:48-0500 Systolic blood pressure 112 mm[Hg] Raeann Warchol PRESCRIPTIONIST Work Phone: [facility] 04-10-2022 10:10-0400 Body height 172.72 cm Kirstin Hernandez Other [facility] [employer] Other 04-10-2022 10:10-0400 Body mass index (BMI) [Ratio] 20.37 kg/m2 Kirstin Hernandez Other [employer] Other 04-10-2022 10:10-0400 Body temperature 98.1 [degF] Kirstin Diegofredy Other [employer] Other 04-10-2022 10:10-0400 Body weight 60.78 kg Kirstin Diegofredy Other [employer] Other 04-10-2022 10:10-0400 Diastolic blood pressure 62 mm[Hg] Kirstin Diegofredy Other [employer] Other 04-10-2022 10:10-0400 Respiratory rate 16 /min Kirstin Cortezfredy Other [employer] Other 04-10-2022 10:10-0400 SaO2% (BldA) [Mass fraction] 98 % Kirstin David Other [employer] Other 04-10-2022 10:10-0400 Systolic blood pressure 104 mm[Hg] Kirstin Diegofredy Other [employer] Other 01-02-2022 11:10-0400 Body height 172.72 cm Kirstin Hernandez Other [employer] Other 01-02-2022 11:10-0400 Body mass index (BMI) [Ratio] 21.59 kg/m2 Kirstin David Other [employer] Other 01-02-2022 11:10-0400 Body temperature 98 [degF] Kirstin Hernandez Other [employer] Other 01-02-2022 11:10-0400 Body weight 64.41 kg Kirstin Hernandez Other [employer] Other 01-02-2022 11:10-0400 Diastolic blood pressure 68 mm[Hg] Kirstin Hernandez Other [employer] Other 01-02-2022 11:10-0400 Respiratory rate 16 /min Kirstin Hernandez Other [employer] Other 01-02-2022 11:10-0400 SaO2% (BldA) [Mass fraction] 99 % Kirstin Hernandez Other [employer] Other 01-02-2022 11:10-0400 Systolic blood pressure 104 mm[Hg] Kirstin Hernandez Other [employer] Other 09-03-2021 11:10-0500 Body height 172.72 cm Kirstin Hernandez Other [employer] Other 09-03-2021 11:10-0500 Body mass index (BMI) [Ratio] 21.89 kg/m2 Kirstin Hernandez Other [employer] Other 09-03-2021 11:10-0500 Body temperature 97.3 [degF] Kirstin Hernandez Other [employer] Other 09-03-2021 11:10-0500 Body weight 65.32 kg Kirstin Hernandez Other [employer] Other 09-03-2021 11:10-0500 Diastolic blood pressure 60 mm[Hg] Kirstin Hernandez Other [employer] Other 09-03-2021 11:10-0500 SaO2% (BldA) [Mass fraction] 95 % Kirstin Hernandez Other [employer] Other 09-03-2021 11:10-0500 Systolic blood pressure 104 mm[Hg] Kirstin Hernandez Other [employer] Other 07-07-2021 14:00-0400 Body height 172.72 cm Kirstin Hernandez Other [employer] Other 07-07-2021 14:00-0400 Body mass index (BMI) [Ratio] 22.04 kg/m2 Kirstin Hernandez Other [employer] Other 07-07-2021 14:00-0400 Body temperature 98.1 [degF] Kirstin Hernandez Other [employer] Other 07-07-2021 14:00-0400 Body weight 65.77 kg Kirstin Hernandez Other [employer] Other 07-07-2021 14:00-0400 Diastolic blood pressure 70 mm[Hg] Kirstin Hernandez Other [employer] Other 07-07-2021 14:00-0400 Respiratory rate 18 /min Kirstin Hernandez Other [employer] Other 07-07-2021 14:00-0400 SaO2% (BldA) [Mass fraction] 99 % Kirstin Hernandez Other [employer] Other 07-07-2021 14:00-0400 Systolic blood pressure 110 mm[Hg] Kirstin Hernandez Other [employer] Other Encounters Encounter Date Encounter Type Care Provider Facility Start: 04-10-2025 End: 04-10-2025 Bamboo flowsheet Jhonathan Keila DO Work Phone: [facility] Start: 04-10-2025 End: 04-10-2025 Bamboo flowsheet Jhonathan Keila DO Work Phone: [facility] Start: 04-01-2025 End: 04-02-2025 Emergency department patient visit Sharmaine Jamil Facility[place] Start: 01-31-2025 End: 01-31-2025 ambulatory Navid Mahan Facility:[facility] Start: 01-31-2025 End: 01-31-2025 Patient encounter procedure Navid Mahan [facility] Start: 01-19-2025 Evaluation and management of inpatient Samuel X Rey Facility:[facility] Start: 01-19-2025 End: 01-20-2025 ambulatory MD Samuel Rey Facility:[facility] Start: 01-19-2025 End: 01-20-2025 Observation Samuel X Rey [facility] Start: 01-16-2025 End: 01-16-2025 Bamboo flowsheet Ginny Quach PRESCRIPTIONIST Work Phone: [facility] Start: 01-16-2025 End: 01-16-2025 Bamboo flowsheet Ginny Quach PRESCRIPTIONIST Work Phone: [facility] Start: 01-16-2025 End: 01-16-2025 ambulatory GINNY QUACH Not Available Start: 01-16-2025 End: 01-16-2025 Office outpatient visit 25 minutes Ginny Quach PRESCRIPTIONIST Work Phone: [facility] Comment on above: Encounter for adult wellness visit (Primary Dx); Fatigue, unspecified type; Attention deficit hyperactivity disorder (ADHD), combined type ([facility]/HCC); Vitamin D deficiency; Cigarette nicotine dependence without complication Start: 01-16-2025 End: 01-16-2025 Patient encounter status Ginny Quach PRESCRIPTIONIST Work Phone: [facility] Start: 01-12-2025 End: 01-12-2025 ambulatory [facility] Work Phone: Start: 01-12-2025 End: 01-12-2025 Patient encounter procedure [facility] Work Phone: Start: 11-03-2024 End: 11-03-2024 ambulatory GUILLAUME CONTI Not Available Start: 11-03-2024 End: 11-03-2024 Office outpatient visit 25 minutes Guillaume Conti DO Work Phone: [facility] Comment on above: Viral URI (Primary D x); Runny nose Start: 11-03-2024 End: 11-03-2024 Bamboo flowsheet Reba Mcpherson PRESCRIPTIONIST Work Phone: [facility] Start: 11-03-2024 End: 11-03-2024 Bamboo flowsheet Reba Mcpherson PRESCRIPTIONIST Work Phone: [facility] Start: 10-19-2024 End: 10-19-2024 ambulatory RAEANN JANG Not Available Start: 10-19-2024 End: 10-19-2024 Office outpatient visit 25 minutes Raeann Jang PRESCRIPTIONIST Work Phone: [facility] Comment on above: Mixed anxiety and de pressive disorder (Primary Dx); Person consulting for explanation of examination or test finding; Attention-deficit hyperactivity disorder, other type (CMS/HCC) Start: 10-11-2024 End: 10-11-2024 Follow-up encounter Raeann CHOUDHURY Work Phone: [facility] Comment on above: 6 weeks f ollow-up Start: 10-11-2024 End: 10-11-2024 ambulatory Raeann Mahoney PA Work Phone: [facility] Start: 10-06-2024 End: 10-06-2024 Bamboo flowsheet Raeann Warchol PRESCRIPTIONIST Work Phone: [facility] Start: 10-06-2024 End: 10-06-2024 Bamboo flowsheet Raeann Warchol PRESCRIPTIONIST Work Phone: [facility] Start: 10-06-2024 End: 10-06-2024 ambulatory RAEANN TORRESCHOL Not Available Start: 08-30-2024 End: 08-30-2024 flow sheet Jhonathan Keila DO Work Phone: [facility] Comment on above: 38 weeks gestation o f ; Third trimester Start: 08-30-2024 End: 08-30-2024 Bamboo flowsheet Jhonathan Keila DO Work Phone: [facility] Start: 08-30-2024 End: 08-30-2024 Bamboo flowsheet Jhonathan Keila DO Work Phone: [facility] Start: 08-30-2024 End: 08-30-2024 Clinisync Result Encounter Jhonathan Keila DO Work Phone: [facility] Department Unsolicited Start: 08-30-2024 End: 08-30-2024 ambulatory JHONATHAN KEILA Not Available Start: 08-22-2024 End: 08-22-2024 flow sheet Jhonathan Keila DO Work Phone: [facility] Comment on above: Third trimester preg marlene; 37 weeks gestation of Start: 08-22-2024 End: 08-22-2024 ambulatory JHONATHAN KEILA Not Available Start: 08-22-2024 End: 08-22-2024 Bamboo flowsheet Jhonathan Keila DO Work Phone: [facility] Start: 08-22-2024 End: 08-22-2024 Bamboo flowsheet Jhonathan Keila DO Work Phone: [facility] Start: 08-16-2024 End: 08-16-2024 Bamboo flowsheet Raeann CHOUDHURY Work Phone: [facility] Start: 08-16-2024 End: 08-16-2024 Bamboo flowsheet Raeann CHOUDHURY Work Phone: [facility] Start: 08-16-2024 End: 08-16-2024 ambulatory RAEANN MAHONEY Not Available Start: 08-16-2024 End: 08-16-2024 Office outpatient visit [...] 07-18-2024 Bamboo flowsheet Raeann CHOUDHURY Work Phone: [facility] Start: 07-18-2024 End: 07-18-2024 Bamboo flowsheet Raeann CHOUDHURY Work Phone: [facility] Start: 07-18-2024 End: 07-18-2024 flow sheet Raeann CHOUDHURY Work Phone: [facility] Comment on above: Third trimester preg marlene; 32 weeks gestation of Start: 07-18-2024 End: 07-18-2024 ambulatory RAEANN MAHONEY Not Available Start: 07-13-2024 End: 07-13-2024 Clinisync Result Encounter Raeann CHOUDHURY Work Phone: [facility] Department Unsolicited Start: 07-13-2024 End: 07-13-2024 Clinisync Result Encounter Raeann CHOUDHURY Work Phone: [facility] Unsolicited Start: 07-04-2024 End: 07-04-2024 Bamboo flowsheet Raeann CHOUDHURY Work Phone: [facility] Start: 07-04-2024 End: 07-04-2024 Bamboo flowsheet Raeann CHOUDHURY Work Phone: [facility] Start: 07-04-2024 End: 07-04-2024 ambulatory RAEANN MAHONEY Not Available Start: 07-04-2024 End: 07-04-2024 flow sheet Raeann Mahoney PA Work Phone: [facility] Comment on above: 30 weeks gestation o f ; Third trimester ; Screening for diabetes mellitus (DM); Gastroesophageal reflux in ; Nausea Start: 06-19-2024 End: 06-19-2024 flow sheet Jhonathan Keila DO Work Phone: [facility] Comment on above: Diabetes mellitus sc reening; 27 weeks gestation of ; Second trimester ; Encounter for screening for cervical length; size inconsistent with dates Start: 06-19-2024 End: 06-19-2024 ambulatory JHONATHAN KEILA Not Available Start: 05-26-2024 End: 05-26-2024 Bamboo flowsheet Roselyn E Rinkes DO Work Phone: [facility] Start: 05-26-2024 End: 05-26-2024 Bamboo flowsheet Roselyn E Rinkes DO Work Phone: [facility] Start: 05-26-2024 End: 05-26-2024 ambulatory ROSELYN Gladis ESCUDEROKES Not Available Start: 05-26-2024 End: 05-26-2024 flow sheet Roselyn E Rinkes DO Work Phone: [facility] Comment on above: 24 weeks gestation o f ; Screening for diabetes mellitus (DM) Start: 05-23-2024 End: 05-23-2024 External Result Encounter Andrzej Nielsen Visci DO Work Phone: [facility] External Department Unsolicited Start: 05-23-2024 End: 05-23-2024 External Result Encounter Andrzej A Visci DO Work Phone: [facility] External Department Unsolicited Start: 05-23-2024 End: 05-23-2024 Patient encounter procedure PRESCRIPTIONIST-Ashvin Jang Work Phone: [facility] - [facility] Start: 05-23-2024 End: 05-23-2024 ambulatory PRESCRIPTIONIST-C Raeann Jang Work Phone: [facility] Work Phone: Start: 05-22-2024 End: 05-22-2024 ambulatory Raeann Jang Facility:[facility] Start: 04-14-2024 End: 04-14-2024 ambulatory Clarisa MIKE Facility:[facility] Start: 03-30-2024 End: 03-30-2024 ambulatory GINNY QUACH Not Available Start: 03-30-2024 End: 03-30-2024 Patient encounter procedure PRESCRIPTIONIST-C Raeann Jang Work Phone: [facility] [place] Work Phone: Start: 03-30-2024 End: 03-30-2024 ambulatory PRESCRIPTIONIST-C Raeann Jang Work Phone: [facility] Work Phone: Start: 03-27-2024 End: 03-27-2024 ambulatory JHONATHAN KEILA Not Available Start: 02-28-2024 End: 02-28-2024 ambulatory JHONATHAN KEILA Not Available Start: 02-04-2024 End: 02-04-2024 ambulatory RAEANN MAHONEY Not Available Start: 12-15-2023 ambulatory [facility] Work Phone: Start: 12-15-2023 Non-patient / [facility] Work Phone: Start: 10-21-2023 End: 10-21-2023 Office outpatient visit 15 minutes Raeann Jang PRESCRIPTIONIST Work Phone: [facility] Comment on above: Attention-deficit hy peractivity disorder, other type (CMS/HCC) (Primary Dx); Bilateral impacted cerumen Start: 09-02-2023 End: 09-02-2023 ambulatory Tyler Roc Armstrong Facility:[facility] Start: 08-19-2023 End: 08-19-2023 ambulatory Services [facility] Work Phone: [facility] Work Phone: Start: 08-19-2023 End: 08-19-2023 Patient encounter procedure [facility] Work Phone: [facility] Start: 08-10-2023 End: 08-10-2023 ambulatory [facility] Work Phone: [facility] Work Phone: Start: 08-10-2023 End: 08-10-2023 Patient encounter procedure [facility] Work Phone: [facility] [place] Work Phone: Start: 07-20-2023 End: 07-20-2023 ambulatory [facility] Work Phone: [facility] Work Phone: Start: 07-20-2023 End: 07-20-2023 Patient encounter procedure [facility] Work Phone: [facility] [place] Work Phone: Start: 05-27-2023 End: 05-27-2023 ambulatory [facility] Work Phone: [facility] Work Phone: Start: 05-27-2023 End: 05-27-2023 Patient encounter procedure [facility] Work Phone: [facility] [place] Work Phone: Start: 01-12-2023 End: 01-12-2023 ambulatory [facility] Work Phone: [facility] Work Phone: Start: 01-12-2023 End: 01-12-2023 Departed Referred Services [facility] Work Phone: [facility] Start: 12-09-2022 End: 12-09-2022 ambulatory DO Kirstin Hernandez Work Phone: [facility] Work Phone: Start: 12-09-2022 End: 12-09-2022 Departed Referred DO Kirstin Hernandez Work Phone: [facility] Start: 12-04-2022 End: 12-04-[address] JHONATHAN PEDRAZA . Facility:[facility] Start: 11-26-2022 Encounter for other preprocedural examination DR JHONATHAN PEDRAZA . [facility] Start: 11-26-2022 End: 11-26-2022 ambulatory DO Kirstin Hernandez Work Phone: [facility] Work Phone: Start: 11-26-2022 End: 11-26-2022 Patient encounter procedure DO Kisrtin Hernandez Work Phone: [facility] [place] Work Phone: Start: 11-24-2022 End: 11-25-2022 ambulatory PRIMITIVO CHAU Facility:[facility] Start: 11-24-2022 End: 11-25-2022 Encounter for other preprocedural examination PRIMITIVO CHAU Facility:[facility] Start: 10-29-2022 End: 10-29-2022 ambulatory DO Kirstin Hernandez Work Phone: [facility] Work Phone: Start: 10-29-2022 End: 10-29-2022 Patient encounter procedure DO Kirstin Hernandez Work Phone: [facility] [place] Work Phone: Start: 10-20-2022 End: 10-20-2022 ambulatory DO Kirstin Hernandez Work Phone: [facility] Work Phone: Start: 10-20-2022 End: 10-20-2022 Departed Referred DO Kirstin Hernandez Work Phone: [facility] Start: 10-09-2022 End: 10-09-2022 Departed Referred DO Kirstin Hernandez Work Phone: [facility] Start: 10-02-[address] JHONATHAN PEDRAZA . Facili ty:[facility] Start: 09-29-[address] JHONATHAN PEDRAZA . Facili ty:[facility] Start: 09-28-2022 End: 09-28-2022 ambulatory HUMPHREY HOLLAND Facility:[facility] Start: 09-23-[address] JHONATHAN PEDRAZA . Facili ty:[facility] Start: 09-22-2022 End: 10-20-[address] JHONATHAN PEDRAZA . Facility:[facility] Start: 08-11-2022 End: 08-11-2022 ambulatory DO Kirstin Hernandez Work Phone: [facility] Work Phone: Start: 08-11-2022 End: 08-11-2022 Patient encounter procedure DO Kirstin Hernandez Work Phone: [facility] [place] Start: 08-04-2022 End: 08-04-2022 ambulatory Kirstin Hernandez Other [employer] Other Start: 08-04-2022 Telephone encounter Kirstin Hernandez [facility] Start: 06-25-[address] JHONATHAN PEDRAZA . Facili ty:[facility] Start: 06-18-2022 End: 06-18-2022 ambulatory DO Kirstin Hernandez Work Phone: [facility] Work Phone: Start: 06-18-2022 End: 06-18-2022 Patient encounter procedure DO Kirstin Hernandez Work Phone: [facility] [place] Start: 06-12-[address] JHONATHAN PEDRAZA . Facili ty:[facility] Start: 06-08-[address] JHONATHAN PEDRAZA . Facili ty:[facility] Start: 04-14-2022 End: 04-14-2022 ambulatory Kirstin Hernandez Other [employer] Other Start: 04-14-2022 Telephone encounter Kirstin Hernandez [facility] Start: 04-10-2022 End: 04-10-2022 ambulatory Kirstin Hernandez Other [employer] Other Start: 04-10-2022 Office outpatient vi sit 15 minutes Kirstin Hernandez [facility] Start: 03-24-[address] KIRSTIN HENRANDEZ Facilit y:[facility] Start: 03-16-2022 End: 03-16-[address] JHONATHAN PEDRAZA . Facility:[facility] Start: 03-10-2022 End: 03-10-2022 ambulatory Kirstin Hernandez Other [employer] Other Start: 03-10-2022 Telephone encounter Kirstin Hernandez [facility] [place] Start: 01-02-2022 End: 01-02-2022 ambulatory Kirstin Hernandez Other [employer] Other Start: 01-02-2022 Office outpatient vi sit 25 minutes Kirstin Hernandez [facility] Start: 01-02-2022 Telephone encounter Kirstin Hernandez [facility] Start: 12-08-2021 End: 12-08-2021 ambulatory Kirstin Hernandez Other [employer] Other Start: 12-08-2021 Telephone encounter Kirstin Hernandez [facility] Start: 12-02-2021 End: 12-02-2021 ambulatory Kirstin Hernandez Other [employer] Other Start: 12-02-2021 Telephone encounter Kirstin Hernandez [facility] Start: 09-03-2021 End: 09-03-2021 ambulatory Kirstin Hernandez Other [employer] Other Start: 09-03-2021 Office outpatient vi sit 15 minutes Kirstin Hernandez [facility] Start: 07-07-2021 Office outpatient vi sit 15 minutes Kirstin Hernandez [facility] Procedures Date Procedure Procedure Detail Performing Clinician Start: 11-03-2024 Iaadinena Conti DO Work Phone: Start: 08-30-2024 [facility] CBC WITH PLATEL ET NO DIFFERENTIAL Jhonathan Keila DO Work Phone: Start: 08-30-2024 Urnls dip stick/tabl et rgnt non-auto w/o micrscp Jhonathan Keila DO Work Phone: Start: 08-16-2024 Urnls dip stick/tabl et rgnt non-auto w/o micrscp Raeann CHOUDHURY Work Phone: Start: 08-03-2024 Urnls dip stick/tabl et rgnt non-auto w/o micrscp Jhonathan Keila DO Work Phone: Start: 07-18-2024 Urnls dip stick/tabl et rgnt non-auto w/o micrscp Raeann CHOUDHURY Work Phone: Start: 07-13-2024 ALL CBC WITH AUTO DIFF Raeann CHOUDHURY Work Phone: Start: 07-04-2024 Urnls dip stick/tabl et rgnt non-auto w/o micrscp Raeann CHOUDHURY Work Phone: Start: 06-19-2024 Urnls dip stick/tabl et rgnt non-auto w/o micrscp Jhonathan Keila DO Work Phone: Start: 05-26-2024 POCT URINALYSIS 4 DIPSTICK Roselyn E Rinkes DO Work Phone: Start: 05-23-2024 Ftl fibronectin cerv icovag secretions semi-bairon Andrzej Nielsen Visci DO Work Phone: Start: 05-23-2024 Urnls dip stick/tabl et reagent auto microscopy Andrzej A Visci DO Work Phone: Start: 03-30-2024 Respiratory Panel (PCR) PRESCRIPTIONIST-C Raeann Jang Work Phone: Start: 08-10-2023 Respiratory Panel (PCR) Services [facility] Work Phone: Start: 12-09-2022 Respiratory Panel (PCR) DO Kirstin Hernandez Work Phone: Start: 11-26-2022 Computed tomography of abdomen and pelvis with contrast DO Kirstin Hernandez Work Phone: Start: 10-29-2022 Ultrasonography of b ilateral kidneys DO Kirstin Hernandez Work Phone: Start: 10-29-2022 US scan of gallbladder DO Kirstin Hernandez Work Phone: Plan of Treatment Date Care Activity Detail Author Start: 05-21-2025 [facility] Start: 04-10-2025 End: 04-10-2025 Patient encounter procedure [facility] Comment on above: Arrived Start: 03-19-2025 Influenza vaccination Influenza Vacc ine (#1) [facility] Comment on above: Postponed from 05/21 (Supply/Drug Shortage) Start: 01-16-2025 End: 01-16-2026 25-hydroxyvitamin D3 [Mass/volume] in Serum or Plasma Vitamin D 25 hydroxy Lab Routine Fatigue, unspecified type Vitamin D deficiency Expected: 01/16/2025 (Approximate), Expires: 01/16/2026 [facility] Work Phone: Comment on above: Expected: 01/16/2025 (Approximate), Expires: 01/16/2026 Start: 01-16-2025 End: 01-16-2026 Cobalamin (Vitamin B12) [Mass/volume] in Serum or Plasma Vitamin B12 Lab Routine Fatigue, unspecified type Expected: 01/16/2025 (Approximate), Expires: 01/16/2026 [facility] Healthcare Comment on above: Expected: 01/16/2025 (Approximate), Expires: 01/16/2026 Start: 10-12-2024 End: 10-12-2024 Patient encounter procedure 10/12/2024 4:00 PM EST Office Visit [facility] [address] [place] [id number] Raeann Jang, PRESCRIPTIONIST [address] [place] [address] [facility] Start: 10-11-2024 End: 10-11-2024 ambulatory 10/11/2024 11:30 AM EST Visit [facility] [address] [id number] Raeann Mahoney PA [address] [place], [place] [id number] [facility] Start: 08-30-2024 End: 08-30-2024 Patient encounter procedure 08/30/2024 3:50 PM EST Routine [facility] [address] [place] [address] Jhonathan Pedraza, DO [address], [place] [id number] [facility] Start: 08-30-2024 End: 08-30-2024 Patient encounter procedure 08/30/2024 2:10 PM EST Routine [facility] [address] [place] [id number] Jhonathan Pedraza, DO [address] [place] [address] Arrived [facility] Comment on above: Arrived Start: 08-22-2024 End: 08-22-2024 Patient encounter procedure [facility] Comment on above: Arrived Start: 08-16-2024 End: 08-16-2025 Strep B DNA probe, amplification Strep B DNA probe, amplification Lab Routine Third trimester Expected: 08/16/2024 (Approximate), Expires: 08/16/2025 [facility] Work Phone: Comment on above: Expected: 08/16/2024 (Approximate), Expires: 08/16/2025 Start: 08-16-2024 End: 08-16-2024 Patient encounter procedure 08/16/2024 8:40 AM EST Routine [facility] [address] [facility] [place] [address] Raeann Mahoney PA [address] [place] [address] [facility] Start: 08-03-2024 End: 08-03-2024 Patient encounter procedure 08/03/2024 9:10 AM EST Routine [facility] [address] [place] [id number] Jhonathan Pedraza DO [address] [place] [address] [facility] Start: 07-18-2024 End: 07-18-2024 Patient encounter procedure [facility] Comment on above: Arrived Start: 07-04-2024 End: 07-04-2024 Patient encounter procedure 07/04/2024 9:20 AM EDT Routine [facility] [address] [place] [phone] Raeann Mahoney PA [address] [place] [address] [facility] Start: 06-19-2024 End: 06-19-2025 CBC panel - Blood by Automated count CBC Lab Routine Diabetes mellitus screening Expected: 06/19/2024 (Approximate), Expires: 06/19/2025 [facility] Work Phone: Comment on above: Expected: 06/19/2024 (Approximate), Expires: 06/19/2025 Start: 06-19-2024 End: 06-19-2025 Measurement of glucose 1 hour after glucose challenge for glucose tolerance test Glucose tolerance, 1 hour Lab Routine Diabetes mellitus screening Expected: 06/19/2024 (Approximate), Expires: 06/19/2025 [facility] Comment on above: Expected: 06/19/2024 (Approximate), Expires: 06/19/2025 Start: 06-19-2024 End: 06-19-2025 US for US OB SCAN FOR GROWTH Imaging Routine size inconsistent with dates Expected: 06/19/2024 (Approximate), Expires: 06/19/2025 [facility] Comment on above: Expected: 06/19/2024 (Approximate), Expires: 06/19/2025 Start: 06-19-2024 End: 06-19-2025 US Pelvis transvaginal US OB transvaginal Imaging Routine Encounter for screening for cervical length Expected: 06/19/2024 (Approximate), Expires: 06/19/2025 [facility] Comment on above: Expected: 06/19/2024 (Approximate), Expires: 06/19/2025 Start: 05-26-2024 End: 05-26-2024 Patient encounter procedure 05/26/2024 10:45 AM EDT Routine [facility] [address] [place] [address] Roselyn Chauhan DO [address] [place] [address] [facility] Start: 05-23-2024 [facility] Start: 05-23-2024 Hospital admission [facility] Start: 05-21-2024 Influenza vaccination Influenza Vacc ine (#1) [facility] Start: 12-15-2023 Patient referral [facility] Work Phone: Start: 01-12-2023 Bacteria identified in Urine by Culture Urine Culture [facility] 17-Hydroxyprogestero ne [Mass/volume] in Serum or Plasma [facility] Alternaria alternata IgE Ab [Units/volume] in Serum [facility] Montenegrin house dust mite IgE Ab [Units/volume] in Serum [facility] Montenegrin [place] Ig E Ab [Units/volume] in [facility] Androstenedione [Mass/volume] in Serum or Plasma [facility] Aspergillus fumigatu s IgE Ab [Units/volume] in [facility] Shaffer's yeast IgE Ab [Units/volume] in [facility] Banana IgE Ab [Units/volume] in [facility] Barley IgE Ab [Units/volume] in [facility] Beef IgE Ab [Units/volume] in Serum [facility] Bermuda grass IgE Ab [Units/volume] in Serum [facility] Boxelder IgE Ab [Units/volume] in Serum [facility] Cat dander IgG Ab [Units/volume] in Serum [facility] Cheese cheddar type IgE Ab [Units/volume] in Serum [facility] Chicken meat IgE Ab [Units/volume] in Serum [facility] Cladosporium herbaru m IgE Ab [Units/volume] in Serum [facility] Cockroach IgE Ab [Units/volume] in Serum [facility] Common Ragweed IgE A b [Units/volume] in Serum [facility] Dallas IgE Ab [Units/volume] in Serum [facility] Overton IgE Ab [Units/volume] in Serum [facility] Cow milk IgE Ab [Units/volume] in Serum [facility] Dog dander IgE Ab [Units/volume] in Serum [facility] Egg white IgE Ab [Units/volume] in Serum [facility] Estradiol (E2) [Mass/volume] in Serum or Plasma [facility] house dust mite IgE Ab [Units/volume] in Serum [facility] Gluten IgE Ab [Units/volume] in Serum [facility] Hemoglobin [Mass/vol ume] in Blood Hemoglobin and hematocrit, blood Lab Routine 24 weeks gestation of Ordered: 05/26/2024 [facility] [employer] Work Phone: Comment on above: Ordered: 05/26/2024 Hemoglobin A1c/Hemoglobin.total in Blood Hemoglobin A1c Lab Routine Screening for diabetes mellitus (DM) Ordered: 07/04/2024 [facility] [employer] Work Phone: Comment on above: Ordered: 07/04/2024 HLA DQ antigen typing [facility] IgE [Units/volume] i n Serum or Plasma [facility] Insulin [Units/volum e] in Serum or Plasma [facility] Insulin [Units/volum e] in Serum or Plasma [facility] Lutropin [Units/volu me] in Serum or Plasma [facility] Measurement of gluco se 1 hour after glucose challenge for glucose tolerance test Glucose tolerance, 1 hour Lab Routine Screening for diabetes mellitus (DM) Ordered: 05/26/2024 [facility] [employer] Comment on above: Ordered: 05/26/2024 Lady Albertsiper IgE Ab [Units/volume] in Serum [facility] Mouse urine proteins IgE Ab [Units/volume] in Serum [facility] Oat IgE Ab [Units/vo lume] in Serum [facility] Mumford IgE Ab [Units/volume] in Serum [facility] Patient Education Antepartum Dis charge Instructions ([facility] [place] [facility] Work Phone: Patient referral [facility] Work Phone: Peanut IgE Ab [Units/volume] in Serum [facility] Pecan or [place] Domo e IgE Ab [Units/volume] in Serum [facility] Penicillium notatum IgE Ab [Units/volume] in Serum [facility] Pork IgE Ab [Units/volume] in Serum [facility] Potato IgE Ab [Units/volume] in Serum [facility] Progesterone [Mass/volume] in Serum or Plasma [facility] Rice IgE Ab [Units/volume] in Serum [facility] Rough Pigweed IgE Ab [Units/volume] in Serum [facility] [place] IgE Ab [Units/vo lume] in Serum [facility] Saltwort IgE Ab [Units/volume] in Serum [facility] Sheep Brownlee IgE Ab [Units/volume] in Serum [facility] Silver Birch IgE Ab [Units/volume] in Serum [facility] Soybean IgE Ab [Units/volume] in Serum [facility] Testosterone Free [Mass/volume] in Serum or Plasma [facility] Testosterone Free [Mass/volume] in Serum or Plasma [facility] Donavon IgE Ab [Units/volume] in Serum [facility] Tomato IgE Ab [Units/volume] in Serum [facility] Coolspring IgE Ab [Units/volume] in Serum [facility] Wheat IgE Ab [Units/volume] in Serum [facility] White Marquez IgE Ab [Units/volume] in Serum [facility] White Elm IgG Ab [Units/volume] in Serum [facility] White mulberry IgE A b [Units/volume] in Serum [facility] Helmville IgE Ab [Units/volume] in Serum [facility] Immunizations Immunization Date Immunization Notes Care Provider Shahnaz duarte 07-20-2023 Influenza, injectable, [place] Canine Kidney, preservative free, quadrivalent Raeann Warchol PRESCRIPTIONIST Work Phone: [facility] 07-20-2023 influenza virus vaccine, unspecified formulation Raeann Maru PA Work Phone: [facility] 07-10-2022 influenza, injectable, quadrivalent, preservative free Raeann Warchol PRESCRIPTIONIST Work Phone: [facility] 07-07-2022 tetanus toxoid, reduced diphtheria toxoid, and acellular pertussis vaccine, adsorbed Raeann Warchol PRESCRIPTIONIST Work Phone: [facility] 01-13-2022 varicella virus vaccine Raeann Warchol PRESCRIPTIONIST Work Phone: [facility] 12-23-2021 tuberculin skin test; purified protein derivative solution, intradermal Raeann Warchol PRESCRIPTIONIST Work Phone: [facility] 08-18-2021 COVID-19 Vaccine Pfizer - Documentation Purposes Only Kirstin Hernandez Other [facility] 07-28-2021 COVID-19 Vaccine Pfizer - Documentation Purposes Only Kirstin Hernandez Other [facility] 06-11-2021 diphtheria, tetanus toxoids and pertussis vaccine Kirstin Hernandez Other [facility] Other 06-11-2021 measles, mumps and rubella virus vaccine Kirstin Hernandez Other [employer] Other 07-17-2019 influenza, seasonal, injectable Patient Objection Kirstin Hernandez Other [employer] Other 11-09-2014 Rocephin 500 mg Kirstin Hernandez Other [employer] Other 06-09-2012 hepatitis A vaccine, pediatric/adolescent dosage, 2 dose schedule Kirstin Hernandez Other [employer] Other 06-09-2012 human papilloma virus vaccine, quadrivalent Kirstin Hernandez Other [employer] Other 06-09-2012 meningococcal polysaccharide (groups A, C, Y and W-135) diphtheria toxoid conjugate vaccine (MCV4P) Kirstin Cortezfredy Other [employer] Other 06-09-2012 tetanus toxoid, reduced diphtheria toxoid, and acellular pertussis vaccine, adsorbed Kirstin Diegofredy Other [employer] Other 04-01-2004 diphtheria, tetanus toxoids and acellular pertussis vaccine, unspecified formulation Kirstin David Other [facility] 04-01-2004 measles, mumps and rubella virus vaccine Kirstin Diegofredy Other [employer] Other 04-01-2004 poliovirus vaccine, inactivated Kirstin Hernandez Other [employer] Other 04-01-2004 poliovirus vaccine, unspecified formulation [facility] 08-20-2000 diphtheria, tetanus toxoids and acellular pertussis vaccine, unspecified formulation Kirstin Hernandez Other [employer] Other 08-20-2000 haemophilus influenzae type b vaccine, conjugate unspecified formulation Kirstin David Other [employer] Other 08-20-2000 measles, mumps and rubella virus vaccine Kirstin Diegofredy Other [facility] Other 08-20-2000 poliovirus vaccine, inactivated Kirstin David Other [employer] Other 08-20-2000 poliovirus vaccine, unspecified formulation [facility] 08-20-2000 varicella virus vaccine Kirstin Hernandez Other [employer] Other 01-23-2000 diphtheria, tetanus toxoids and acellular pertussis vaccine, unspecified formulation Kirstin Hernandez Other [employer] Other 01-23-2000 haemophilus influenzae type b conjugate and Hepatitis B vaccine Kirstin Hernandez Other [employer] Other 1999 diphtheria, tetanus toxoids and acellular pertussis vaccine, unspecified formulation Kirstin Diegofredy Other [employer] Other 1999 haemophilus influenzae type b conjugate and Hepatitis B vaccine Kirstin Hernandez Other [employer] Other 1999 poliovirus vaccine, inactivated Kirstin Hernandez Other [employer] Other 1999 poliovirus vaccine, unspecified formulation [facility] 1999 diphtheria, tetanus toxoids and acellular pertussis vaccine, unspecified formulation Kirstin Hernandez Other [employer] Other 1999 haemophilus influenzae type b conjugate and Hepatitis B vaccine Kirstin Hernandez Other [employer] Other 1999 poliovirus vaccine, inactivated Kirstin Hernandez Other [employer] Other 1999 poliovirus vaccine, unspecified formulation [facility] NEGATED: Highlighted row has not occurred! 1 influenza, seasonal, injectable Patient Objection Kirstin Hernandez Other [employer] Other NEGATED: Highlighted row has not occurred! 9 influenza, seasonal, injectable Patient Objection Kirstin Hernandez Other [employer] Other Payers Date Payer Category Payer Unknown [id number] 2023 Private Health Insurance [id number] 2021 Blue Cross Blue Shield 1.2.8 [id number] .315 2021 Unknown [id number]. [id number] 2021 Medicaid [id number]. [id number] 1999 Unknown [id number] 2.16.84 0.1.279861.3.579.2.593 1999 Unknown [id number] 2.16.84 0.1.506299.3.579.2.593 1999 Unknown [id number] 2.16.84 0.1.811359.3.579.2.593 1999 Unknown [id number] 2.16.84 0.1.620389.3.579.2.593 1999 Unknown [id number] 2.16.84 0.1.096255.3.579.2.593 1999 Unknown [id number] 2.16.84 0.1.906229.3.579.2.593 1999 Unknown [id number] 2.16.84 0.1.227970.3.579.2.593 1999 Unknown [id number] 2.16.84 0.1.687725.3.579.2.593 1999 Unknown [id number] 2.16.84 0.1.192056.3.579.2.593 1999 Unknown [id number] 2.16.84 0.1.251778.3.579.2.593 1999 Unknown [id number] 2.16.84 0.1.008267.3.579.2.593 1999 Unknown [id number] 2.16.84 0.1.800700.3.579.2.593 1999 Unknown [id number] 2.16.8 40.1.494044.3.579.2.718 1999 Unknown [id number] 2.16.8 40.1.014762.3.579.2.718 1999 Unknown [id number] 2.16.84 0.1.925213.3.579.2.1258 1999 Unknown [id number] 2.16.84 0.1.173367.3.579.2.1258 1999 Unknown [id number] 2.16.84 0.1.576406.3.579.2.1258 1999 Unknown [id number] 2.16.84 0.1.535045.3.579.2.1258 1999 Unknown [id number] 2.16.84 0.1.438658.3.579.2.1258 1999 Unknown [id number] 2.16.84 0.1.095737.3.579.2.1258 1999 Unknown [id number] 2.16.84 0.1.982165.3.579.2.1258 1999 Unknown [id number] 2.16.84 0.1.749193.3.579.2.1258 1999 Unknown [id number] 2.16.84 0.1.816984.3.579.2.1258 1999 Unknown [id number] 2.16.84 0.1.866633.3.579.2.1258 1999 Unknown [id number] 2.16.84 0.1.569954.3.579.2.1258 1999 Unknown [id number] 2.16.84 0.1.436721.3.579.2.1258 1999 Unknown [id number] 2.16.84 0.1.193808.3.579.2.1259 1999 Unknown [id number] 2.16.84 0.1.123392.3.579.2.1259 1999 Unknown [id number] 2.16.84 0.1.020117.3.579.2.1259 1999 Unknown [id number] 2.16.84 0.1.575494.3.579.2.1259 1999 Unknown [id number] 2.16.84 0.1.016871.3.579.2.1259 1999 Unknown [id number] 2.16.8 40.1.187621.3.579.2.727 1999 Unknown [id number] 2.16.8 40.1.319919.3.579.2.727 1999 Unknown [id number] 2.16.8 40.1.027791.3.579.2.727 1999 Unknown [id number] 2.16.8 40.1.914404.3.579.2.727 1999 Unknown [id number] 2.16.8 40.1.801464.3.579.2.727 1999 Unknown [id number] 2.16.8 40.1.055966.3.579.2.727 1999 Unknown [id number] 2.16.8 40.1.567037.3.579.2.727 1960 [facility] [id number]. 1960 Private Health Insurance [id number] 2.16.840.1.002613. 1959 Private Health Insurance [id number] Self-pay [id number] Unknown [id number] 2.16.8 40.1.945778.3.579.2.531 Unknown [id number] 2.16.8 40.1.427579.3.579.2.531 Social History Date Type Detail Facility Unknown if ever smoked [facility] [employer] Other Start: 10-21-2023 End: 03-30-2024 Sex Assigned At [facility] [employer] Other Start: 2000 Sex Assigned At Female [facility] Start: 10-21-2023 Tobacco smoking stat us MDIS Smokes tobacco daily [facility] Start: 10-21-2023 End: 01-16-2025 Tobacco use and exposure Smokeless tobacco non-user [facility] Start: 10-21-2023 End: 01-16-2025 Alcohol intake Lifetime non-drinker (finding) [facility] Start: 10-21-2023 End: 03-30-2024 History of Social function [facility] Start: 07-20-2023 Tobacco Comment Pt vapes [facility] Start: 08-29-2023 Alcohol Comment caffeine intak e: 2-3 cups per day of soda/pop ; more than 4 cups per day [facility] Start: 2000 Sex Assigned At Not on file [facility] Start: 11-10-2017 End: 01-16-2025 Tobacco smoking status NHIS Never smoked tobacco (finding) [facility] Do you belong to any clubs or organizations such as yarsanism groups, unions, fraternal or athletic groups, or [...] [facility] Start: 12-21-2023 [facility] Start: 12-08-2018 End: 01-12-2025 Sex Female (finding) [facility] Tobacco smoking status [facility] NEGATED: Highlighted rowStart: DORINA History of tobacco use Passive smoker [facility] Functional Status Date Assessment Result Facility 01-19-2025 Functional Status N/A [facility] - [facility] 01-16-2025 Total score [AUDIT-C] 0 01/17/20 25 8:25 AM EDT Constance Galvan MA [facility] 01-16-2025 Patient Health Quest ionnaire 2 item (PHQ-2) [Reported] [facility] Clinical Notes 12-02-2011 to 04-02-2025 Note Date & Type Note Facility 04-02-2025 Note ED Patient Education Note Orthopedics Ankle Sprain An ankle sprain is a stretch or tear in a ligament in the ankle. Ligaments are tissues that connect bones to each other. The two most common [...] right after you sprain your ankle or 1?2 days later. ??? Trouble standing or walking. This includes trouble turning or changing directions. How is this diagnosed? An ankle sprain is diagnosed with a physical exam. Your health care provider will press on parts of your foot and ankle and try to move [...] the brace or splint is not waterproof: ? Do not let it get wet. ? Cover it with a watertight covering when [...] told, put ice on the affected area. ? If you have a removable brace or splint, remove it as told by your provider. ? Put ice in a plastic bag. ? Place a towel between your skin and the bag. ? Leave the ice on for 20 minutes, 2?3 times a day. ? Remove the ice if your skin turns [...] to reduce stiffness and swelling. ??? For 2?3 days, raise (elevate) your ankle above the level of your heart while you are sitting or lying down. General instructions ??? Take [id number] and prescription medicines only as told by [...] provider. Document Revised: 06/09/2023 Document Reviewed: 06/09/2023 [employer] Patient Education ? 2023 [employer]. [facility] 01-31-2025 Note Progress Note-Mayo Rocha is a 24 year old female who was called for telephone follow up s/p laparoscopic appendectomy on 01/20/25. Reports doing well in postop phase and has returned to regular ADLs and diet. Reports pain well controlled. Surgical pathology reviewed and consistent with appendicitis. In appropriate phase of recovery. can call as needed for questions or concerns. [facility] Comment on above: Result Comment: Elec tronically Signed By: Tiarra Childs PA-C\.br\Date and Time Signed: 01/31/25 12:49 EDT\.br\Electronically Co-Signed By: Kalli SANCHEZ, Navid Zavala\.br\Date and Time Co-Signed: 01/31/25 15:13 EDT 01-24-2025 Note History and Physical ACUTE CARE SURGERY CONSULT / H&P ------ Patient Name: LE ROCHA Admission Date: 01/19/2025 18:06:48 Patient seen and examined on 01/20/2025 07:27:43 HISTORY OF PRESENT ILLNESS LE ROCHA is a 24 Years-old Female with a PSHx of diagnostic laporotomy presents with 1 week of RLQ pain. States pain is sharp and located at the RLQ. Initially thought pain was related to her mastitis. Was prompted to seek care in ED as pain was not improving. Associated with some nausea. Denies episodes of diarrhea or constipation. Denies emesis. PAST MEDICAL HISTORY: No qualifying data available. PAST SURGICAL HISTORY: No qualifying data available. PRE-ADMISSION MEDICATIONS: cephalexin: 500 mg, Oral, q8hr ALLERGIES: Allergies (1) Active Severity Reaction No Known Allergies None Documented SOCIAL HISTORY: Social History No active social history has been recorded Psychosocial History No active psychosocial history has been recorded FAMILY HISTORY: No family history recorded. REVIEW OF SYSTEMS Constitutional: no? fever, no? chills, no? sweats, no? weakness. Skin: no? Jaundice, no? rash, no? lesions, no? petechiae. ENMT: no? ear pain, no? sore throat, no? congestion, no? hoarseness. Respiratory: no? shortness of breath, no? cough, no? orthopnea, no? wheezing. Cardiovascular: no? chest pain, no? palpitations, no? edema. Gastrointestinal: no? nausea, no? vomiting, no? diarrhea, no? GI bleeding. Genitourinary: no? dysuria, no? hematuria, no? discharge, no? pain. Musculoskeletal: no? back pain, no? trauma. Neurologic: no? headache, no? dizziness, no? numbness, no? weakness. Psychiatric: no? sleeping problems, no? irritability, no? mood swings/depression. Heme/Lymph: no? bleeding tendency, no? bruising tendency, no? petechiae, no? swollen lymph nodes Allergy/Immunologic: Seasonal allergies, no? food allergies, no? recurrent infections, no? impaired immunity PHYSICAL EXAM ------- General: alert?, no acute? distress Skin: warm?, dry? Head: no? trauma, normocephalic? Neck: Trachea midline?, no? adenopathy, no? tenderness Eye: normal? conjunctiva, sclera clear? ENMT: TM???s clear?, oral mucosa moist?, no? pharyngeal erythema or exudate Cardiovascular: regular? rate and rhythm, normal? peripheral perfusion Respiratory: Lungs CTA?,respirations non labored? Chest wall: no? deformity. Gastrointestinal: soft?, non distended?, no? guarding. Non-peritoneal. TTP at RLQ. No rebound tenderness Back: No? tenderness, Normal? ROM, Normal? alignment. Extremities: no? deformity, no? trauma Neurological: oriented x 4?, LOC appropriate for age?, CN II-XII intact?, motor strength equal & normal bilaterally?, sensation equal & normal bilaterally?, speech normal? Psychiatric: cooperative?, affect appropriate for age?, normal? judgement, normal? psychiatric thoughts. BASIC LABS ------- Last 24 Hours Basic Metabolic Panel: Hematology: : () HGB: 11.0 (01/20/25) : () : () : () : () : () : () : () : () Creatinine: 0.7 (01/20/25) : () Additional - Last 24 Hours ABO/Rh: O POS (01/19/25) ABO/Rh Retype Interp: O POS (01/20/25) ABSC Gel Interp: Negative (01/19/25) AGAP: 10 (01/20/25) Basophil Absolute: 0.0 (01/20/25) Basophil Auto: 0.2 (01/20/25) BUN: 12 (01/20/25) BUN/Creat Ratio: 17 (01/20/25) Calcium Lvl: 8.5 (01/20/25) Chloride: 107 (01/20/25) CO2: 24 (01/20/25) eGFR: 123 (01/20/25) Eos Absolute: 0.1 (01/20/25) Eos Auto: 0.6 (01/20/25) Glucose Lvl: 100 (01/20/25) Hct: 32.0 (01/20/25) INR: 1.11 (01/20/25) Lymph Absolute: 1.6 (01/20/25) Lymph Auto: 12.1 (01/20/25) MCH: 29.7 (01/20/25) MCHC: 34.4 (01/20/25) MCV: 86.1 (01/20/25) Lyon Absolute: 1.0 (01/20/25) Lyon Auto: 7.9 (01/20/25) MPV: 8.6 (01/20/25) Neutro Absolute: 10.4 (01/20/25) Neutro Auto: 79.2 (01/20/25) Platelet: 247.0 (01/20/25) Potassium Lvl: 4.0 (01/20/25) PT: 12.5 (01/20/25) PTT: 36.6 (01/20/25) RBC: 3.7 (01/20/25) RDW: 13.5 (01/20/25) Sodium Lvl: 137 (01/20/25) WBC: 13.1 (01/20/25) RADIOLOG Y ---- No qualifying data available MEDICAL DECISION MAKING --------- ASSESSMENT/IMPRESSION: LE ROCHA is a 24 Years-old Female who presents with clinical findings of acute appendicitis. Mild leukocytosis of 13.1 ACS workup found acute appendicitis PLAN/RECOMMENDATIONS: - Plan for laparoscopic appendectomy - Keep NPO - mIVF with LR @75cc/hr while NPO - Zosyn q6hr while awai (more content not included)... [facility] Comment on above: Result Comment: Elec tronically Signed By: Tiarra Childs PA-C\.br\Date and Time Signed: 01/20/25 07:34 EDT\.br\Electronically Co-Signed By: Tiarra Childs PA-C\.br\Date and Time Co-Signed: 01/20/25 08:05 EDT\.br\Electronically Co-Signed By: Tiarra Childs PA-C\.br\Date and Time Co-Signed: 01/20/25 12:08 EDT\.br\Electronically Co-Signed By: Samuel Rey MD\.br\Date and Time Co-Signed: 01/24/25 11:03 EDT 01-24-2025 Note Discharge Summary DISCHARGE SUMMARY [address] [address] LE ROCHA Date of : 2000 24 Years Female AttendingSamuel Rey MD Date of Admission01/19/2025 15:04:06 Date of Discharge 01/20/2025 12:04:39 DIAGNOSES: 1) acute appendicitis 2) s/p laparoscopic appendectomy PROCEDURES: Procedures No Procedures Documented DISCHARGE MEDICATIONS: DISCHARGE MEDICATIONS Medication List Active Medications Ordered acetaminophen: 650 mg, 2 tab(s), Oral, q6hr. bisacodyl: 10 mg, 2 tab(s), Oral, Daily, PRN: Constipation. bisacodyl: 10 mg, 1 supp, Rectal, Daily, PRN: Constipation. enoxaparin: 40 mg, 0.4 mL, SubCutaneous, Daily. magnesium hydroxide: 30 mL, Oral, Daily, PRN: Constipation. oxycodone: 5 mg, 1 tab(s), Oral, q4hr, PRN: Pain 4-7. oxycodone: 10 mg, 2 tab(s), Oral, q4hr, PRN: Pain 8-10. Prescribed acetaminophen: 650 mg, 2 tab(s), Oral, q6hr, for 14 day(s), 112 tab(s), 0 Refill(s). ibuprofen: 600 mg, 1 tab(s), Oral, q6hr, 40 tab(s), 0 Refill(s). Medications Inactivated in the Last 72 Hours acetaminophen: Misc, Once. bupivacaine: Misc, Once. bupivacaine: 75 mg, 30 mL, Misc, Once. bupivacaine liposome: Misc, Once. bupivacaine liposome: 266 mg, 20 mL, Misc, Once. cephalexin: 500 mg, Oral, q8hr, 0 Refill(s). dexamethasone: Misc, Once. fentanyl: Misc, Once. ketorolac: Misc, Once. Lactated Ringers Injection 1,000 mL: 75 mL/hr, IV, Stop: 02/18/25 15:49:00 EDT. ondansetron: Misc, Once. piperacillin-tazobactam: Misc, Once. piperacillin-tazobactam: Misc, Once. piperacillin-tazobactam: Misc, Once. piperacillin-tazobactam + Sodium Chloride 0.9% intravenous solution 100 mL: 3.375 gm, 1 EA, 200 mL/hr, IV Piggyback, q6hr. propofol: Misc, Once. rocuronium: Misc, Once. sodium chloride: 20 mL, Misc, Once. Sodium Chloride 0.9% intravenous solution: Misc, Once. Sodium Chloride 0.9% intravenous solution: Misc, Once. Sodium Chloride 0.9% intravenous solution: Misc, Once. sugammadex: Misc, Once. [use for patients going to inpatient rehab only, otherwise delete this list of meds] REASON FOR HOSPITALIZATION: LE ROCHA is a 24 Years-old Female with a PSHx of diagnostic laporotomy presents with 1 week of RLQ pain. States pain is sharp and located at the RLQ. Initially thought pain was related to her mastitis. Was prompted to seek care in ED as pain was not improving. Associated with some nausea. Denies episodes of diarrhea or constipation. Denies emesis. SIGNIFICANT FINDINGS: 1) acute appendicitis 2) s/p laparoscopic appendectomy HOSPITAL COURSE: 01/19/2025: Arrived as transfer for acute appendicitis. Admitted to our EGS service 01/20/2025: Taken to OR for laparoscopic appendectomy The patient was seen and examined on the day of discharge with the following findings: Constitutional: Pt is oriented to person, place, and time. Pt appears well-developed and well-nourished. No distress. Head: Normocephalic and atraumatic. Mouth/Throat: Oropharynx is clear and moist. Eyes: Pupils are equal, round, and reactive to light. Conjunctivae and EOM are normal. Neck: Normal range of motion. Neck supple. Cardiovascular: Normal rate, regular rhythm, normal heart sounds and intact distal pulses. Exam reveals no gallop and no friction rub. No murmur heard. Pulmonary/Chest: Effort normal and breath sounds normal. No respiratory distress. Pt has no wheezes. Pt has no rales. Pt exhibits no tenderness. Abdominal: Soft. Bowel sounds are normal. Pt exhibits no distension and no mass. There is no rebound and no guarding. No hernia. Surgical incisions c/d/i Musculoskeletal: Normal range of motion. Pt exhibits no edema, tenderness or deformity. Neurological: Pt is alert and oriented to person, place, and time. Coordination normal. Skin: Skin is warm and dry. Capillary refill takes less than 2 seconds. No rash noted. pt is not diaphoretic. No erythema. No pallor. Psychiatric: Pt has a normal mood and affect. Given the excellent progress, the patient was determined stable for discharge. ANTICIPATED FOLLOW UP: With: Address: When: Trauma Clinic [address] [facility] [address], [address] [place] [phone] Comments: Appointment has already been scheduled for 01/31/25 VTE RISK AT DISCHARGE: Per trauma program protocol, the patient DOES NOT REQUIRE post-discharge VTE prophylaxis due to: NWB single LE or BLE fractures limiting mobility. Tiarra Childs Trauma, Critical Care, & Acute Care Surgery >31 minutes was spent on the discharge of this patient including final examination of the patient, discussion of the hospital stay, instructions for continuing care to all relevant caregivers, preparation of discharge records, prescriptions and referral forms, and clear identification of reasons to return to clinic or to emergency room. [facility] Comment on above: Result Comment: Elec tronically Signed By: Amadeo MATHEW, Tiarra Vizcarra\.br\Date and Time Signed: 01/20/25 12:10 EDT\.br\Electronically Co-Signed By: Samuel Rey MD\.br\Date and Time Co-Signed: 01/24/25 11:03 EDT 01-20-2025 Note Progress Note-Physic dudley Patient: LE ROCHA Age: 24 years Sex: Female : 2000 Associated Diagnoses: None Author: Michelle SANCHEZ, Dwayne Villarreal Postoperative Information Postoperative disposition: Postoperative disposition: To PACU. Optimetrix number: Optimetrix number [id number]. Anesthetic utilized: General. Health Status Allergies: Allergic Reactions (Selected) No Known Allergies Physical Examination Vital Signs 01/20/2025 13:00 EDT Hourly Rounding Yes Promise to Return Yes 01/20/2025 12:08 EDT Heart Rate Monitored 72 bpm SpO2 100 % 01/20/2025 12:07 EDT Respiratory Rate 18 br/min 01/20/2025 12:07 EDT Systolic Blood Pressure 105 mmHg Diastolic Blood Pressure 66 mmHg Mean Arterial Pressure, Monitered 79 mmHg 01/20/2025 12:06 EDT Temperature Axillary 36.5 DegC 01/20/2025 12:00 EDT Hourly Rounding Yes Promise to Return Yes 01/20/2025 11:00 EDT Hourly Rounding Yes Promise to Return Yes 01/20/2025 10:51 EDT Hourly Rounding Yes Promise to Return Yes 01/20/2025 9:41 EDT SpO2 100 % 01/20/2025 9:40 EDT Respiratory Rate Monitored 17 br/min 01/20/2025 9:40 EDT Heart Rate Monitored 51 bpm LOW SpO2 100 % 01/20/2025 9:40 EDT Temperature Oral 36.6 DegC Systolic Blood Pressure 95 mmHg Diastolic Blood Pressure 69 mmHg Mean Arterial Pressure, Cuff 78 mmHg 01/20/2025 9:30 EDT SpO2 100 % 01/20/2025 9:30 EDT Respiratory Rate Monitored 20 br/min 01/20/2025 9:30 EDT Heart Rate Monitored 61 bpm 01/20/2025 9:30 EDT Systolic Blood Pressure 104 mmHg Diastolic Blood Pressure 75 mmHg Mean Arterial Pressure, Cuff 85 mmHg 01/20/2025 9:25 EDT Heart Rate Monitored 73 bpm Respiratory Rate Monitored 17 br/min 01/20/2025 9:25 EDT SpO2 100 % 01/20/2025 9:25 EDT Systolic Blood Pressure 107 mmHg Diastolic Blood Pressure 78 mmHg Mean Arterial Pressure, Cuff 88 mmHg 01/20/2025 9:20 EDT Heart Rate Monitored 76 bpm Respiratory Rate Monitored 12 br/min 01/20/2025 9:20 EDT SpO2 100 % 01/20/2025 9:20 EDT Systolic Blood Pressure 103 mmHg Diastolic Blood Pressure 77 mmHg Mean Arterial Pressure, Cuff 86 mmHg 01/20/2025 9:15 EDT Heart Rate Monitored 92 bpm Respiratory Rate Monitored 18 br/min 01/20/2025 9:15 EDT SpO2 100 % 01/20/2025 9:15 EDT Systolic Blood Pressure 136 mmHg Diastolic Blood Pressure 77 mmHg 01/20/2025 9:15 EDT Temperature Oral 36.5 DegC Mean Arterial Pressure, Cuff 97 mmHg 01/20/2025 9:00 EDT Hourly Rounding Patient off unit for procedure/testing 01/20/2025 8:00 EDT Hourly Rounding Patient off unit for procedure/testing 01/20/2025 7:00 EDT Hourly Rounding Yes Promise to Return Yes 01/20/2025 6:42 EDT Hourly Rounding Yes Promise to Return Yes 01/20/2025 5:25 EDT Temperature Oral 36.5 DegC Heart Rate Monitored 72 bpm Respiratory Rate 16 br/min Systolic Blood Pressure 97 mmHg Diastolic Blood Pressure 60 mmHg Blood Pressure Location Right arm SpO2 98 % 01/20/2025 5:00 EDT Hourly Rounding Yes Promise to Return Yes 01/20/2025 4:57 EDT Hourly Rounding Yes Promise to Return Yes 01/20/2025 3:26 EDT Hourly Rounding Yes Promise to Return Yes 01/20/2025 2:41 EDT Hourly Rounding Yes Promise to Return Yes 01/20/2025 1:37 EDT Hourly Rounding Yes Promise to Return Yes 01/20/2025 0:44 EDT Hourly Rounding Yes Promise to Return Yes 01/19/2025 23:26 EDT Hourly Rounding Yes Promise to Return Yes 01/19/2025 23:23 EDT Temperature Oral 36.9 DegC Heart Rate Monitored 71 bpm Respiratory Rate 14 br/min Systolic Blood Pressure 106 mmHg Diastolic Blood Pressure 68 mmHg Blood Pressure Location Right arm SpO2 100 % 01/19/2025 22:26 EDT Hourly Rounding Yes Promise to Return Yes 01/19/2025 21:17 EDT Hourly Rounding Yes Promise to Return Yes 01/19/2025 20:20 EDT Hourly Rounding Yes Promise to Return Yes 01/19/2025 19:00 EDT Temperature Oral 37.2 DegC Heart Rate Monitored 92 bpm Respiratory Rate 17 br/min Systolic Blood Pressure 105 mmHg Diastolic Blood Pressure 65 mmHg Blood Pressure Location Right arm Hourly Rounding Yes Promise to Return Yes SpO2 100 % 01/19/2025 18:04 EDT Temperature Oral 37.5 DegC HI Apical Heart Rate 73 bpm Respiratory Rate 18 br/min Systolic Blood Pressure 111 mmHg Diastolic Blood Pressure 72 mmHg Blood Pressure Location Right arm SpO2 100 % 01/19/2025 18:00 EDT Hourly Rounding Yes Promise to Return Yes Pain Assessment: Controlled. General: Awake, Alert, Appropriate. Respiratory: Adequate air exchange. Cardiovascular: Stable, Normal peripheral perfusion. Neurological: Normal sensory function, Normal motor function. Assessment Anesthetic outcome No anesthetic complications noted. Adequate pain relief. able to void without difficulty, able to ambulate with assist, tolerating PO intake, no N/V. Review / Management Condition: Stable. Plan Transfer/Discharge: Transfer/Discharge Discharge when meets criteria ( From PACU to floor ). [facility] Comment on above: Result Comment: Elec tronically Signed By: Dwayne Martinez MD\.br\Date and Time Signed: 01/20/25 14:31 EDT 01-20-2025 Evaluation + Plan note Extrac paulie from: Title:ANES Post-operative Note Author:Dwayne Martinez MD Date:01/20/25 Plan Transfer/Discharge: Transfer/Discharge Discharge when meets criteria ( From PACU to floor ). Extracted from: Title:ANES Pre-operative Note Author:Dwayne Martinez MD. Date:01/20/25 Plan [place] [employer] (ASA) physical status classification: Class I. Anesthetic Preoperative Plan: Anesthesia General. [facility] 05-03-2025 Hospital Discharge instructions Patient Education 01/20/2025 09:42:24 Laparoscopic Appendectomy, Adult, Care After Laparoscopic Appendectomy, Adult, Care After The following information offers guidance on how to care for yourself after your procedure. Your health care provider may also give you more specific instructions. If you have problems or questions, contact your health care provider. What can I expect after the procedure? After the procedure, it is common to have: Tiredness (fatigue). Mild pain in the incision areas. Constipation. This may be caused by taking pain medicines and being less active during recovery. Gas pain that can radiate to your shoulders. Follow these instructions at home: Medicines Take zcrs-zlv-ptzpuze and prescription medicines only as told by your health care provider. ?Finish all antibiotic medicine even if you start to feel better. ?Take pain medicines before your pain becomes severe. Ask your health care provider if your condition or your medicine: ?Requires you to avoid driving or using machinery. ?Can cause constipation. You may need to take these actions to prevent or treat constipation: ?Drink enough fluid to keep your urine pale yellow. ?Take gwuj-uzd-ucnurwi or prescription medicines. ?Eat foods that are high in fiber, such as beans, whole grains, and fresh fruits and vegetables. ?Limit foods that are high in fat and processed sugars, such as fried or sweet foods. Incision care Follow instructions from your health care provider about how to take care of your incisions. Make sure you: ?Wash your hands with soap and water for at least 20 seconds before and after you change your bandage (dressing). If soap and water are not available, use hand software design manager. ?Change your dressing as told by your health care provider. ?Leave stitches (sutures), oseas, skin glue, or adhesive strips in place. These skin closures mayneed to stay in place for 2 weeks or longer. If adhesive strip edges start to loosen and curl up, you may trim the loose edges. Do not remove adhesive strips completely unless your health care provider tells you to do that. Check your incision areas every day for signs of infection. Check for: ?Redness, swelling, or pain. ?Fluid or blood. ?Warmth. ?Pus or a bad smell. Bathing Do not take baths, swim, or use a hot tub until your health care provider approves. Ask your healthcare provider if you may take showers. You may only be allowed to take sponge baths. Keep your incisions clean and dry. Clean them as often as told by your health care provider. To do this: ?Gently wash the incisions with soap and water. ?Rinse the incisions with water to remove all soap. ?Pat the incisions dry with a clean towel. Do not rub the incisions. Activity If you were given a sedative during the procedure, it can affect you for several hours. Do not drive or operate machinery until your health care provider says that it is safe. Rest as told by your health care provider. Do not lift anything that is heavier than 10 lb (4.5 kg), or the limit that you are told, until your health care provider says that it is safe. Do not play contact sports until your health care provider tells you that it is safe to do so. Return to your normal activities as told by your health care provider. Ask your health care provider what activities are safe for you. General instructions If you were sent home with a drain, follow instructions from your health care provider about how tocare for it. Take deep breaths. This helps to prevent your lungs from developing an infection (pneumonia). If you need to cough or sneeze, place a pillow or blanket on your abdomen before you do so. This will help you control the pain. Keep all follow-up visits. This is important. Contact a health care provider if: You have redness, swelling, or pain around an incision. You have fluid or blood coming from an incision. An incision feels warm to the touch. You have pus or a bad smell coming from an incision or dressing. The edges of an incision break open after your sutures have been removed. You lose your appetite, keep feeling nauseous, or you are vomiting. You have diarrhea, or you cannot control your bowel functions. You develop a rash. Get help right away if: You have a fever. You have difficulty breathing. You have sharp pains in your chest. You develop swelling or pain in your legs. You faint. These symptoms may be an emergency. Get help right away. Call 911. Do not wait to see if the symptoms will go away. Do not drive yourself to the hospital. Summary After a laparoscopic appendectomy, it is common to have tiredness, mild pain in the area of the incisions, constipation, and gas pain. Follow your health care provider's instructions about caring for yourself after the procedure. Rest after the procedure. Return to your normal activities as told by your health care provider. Contact your health care provider if you notice signs of infection around your incisions. Get help right away if you develop a fever, chest pain, or difficulty breathing. This information is not intended to replace advice given to you by your health care provider. Make sure you discuss any questions you have with your health care provider. Document Revised: 06/18/2022 Document Reviewed: 06/18/2022 [employer] Patient Education 2023 [employer]. Follow Up Care 01/19/2025 15:04:05 With:Trauma Clinic Address: [address] [place] [address], [address], [address] [place] [address] [phone] When: Unknown Comments:Appointment has already been scheduled for 01/31/25 [facility] 05-03-2025 NoteProgress Note-Physician Patient: LE ROCHA Age: 24 years Sex: Female : 2000 Associated Diagnoses: None Author: Dwayne Martinez MD Preoperative Information Anesthesia history: Patient history: No prior anesthetic problems. Informed consent: Signed by patient. Re-evaluation prior to induction: Initial evaluation reviewed: No significant change. Review of Systems Respiratory: Negative except as documented in history of present illness. Cardiovascular: Negative except as documented in history of present illness. Health Status Allergies: Allergic Reactions (Selected) No Known Allergies, Allergies (1) Active Severity Reaction No Known Allergies None Documented Current medications: (Selected) Inpatient Medications Ordered Lactated Ringers IV Claribel 1000 mL 1,000 mL: 1,000 mL, IV, 75 mL/hr, Routine, Start date 01/19/25 15:50:00 EDT, 13.3 hour(s), Total volume (mL): 1,000 acetaminophen 325 mg Tab: 650 mg = 2 tab(s), Tab, Oral, q6hr, Routine, Start date 01/19/25 18:00:00EDT, Pain score 1-3. bisacodyl 10 mg Supp: 10 mg = 1 supp, Supp, Rectal, Daily PRN Constipation, Routine, Start date 01/19/25 15:50:00 EDT, 01/19/25 15:50:00 EDT bisacodyl 5 mg Oral EC Tab: 10 mg = 2 tab(s), Tab-EC, Oral, Daily PRN Constipation, Routine, Start date 01/19/25 15:50:00 EDT, 01/19/25 15:50:00 EDT enoxaparin 40 mg/0.4 mL SC Claribel: 40 mg = 0.4 mL, Injection, SubCutaneous, Daily, Routine, Start date01/20/25 9:00:00 EDT, 01/19/25 15:50:00 EDT magnesium hydroxide 8% Oral Susp 30 mL: 30 mL, Susp-Oral, Oral, Daily PRN Constipation, Routine, Start date 01/19/25 15:50:00 EDT oxyCODONE 5 mg Tab: 10 mg = 2 tab(s), Tab, Oral, q4hr PRN Pain 8-10, Routine, Start date 01/19/25 15:50:00 EDT, Pain score 8-10., 01/19/25 15:50:00 EDT oxyCODONE 5 mg Tab: 5 mg = 1 tab(s), Tab, Oral, q4hr PRN Pain 4-7, Routine, Start date 01/19/25 15:50:00 EDT, Pain score 4-7., 01/19/25 15:50:00 EDT piperacillin-tazobactam additive + Sodium Chloride 0.9% intravenous solution 100 mL: 3.375 gm = 1 EA, Injection, IV Piggyback, q6hr, Routine, Start date 01/19/25 20:00:00 EDT, 200 mL/hr, Infuse over 30 minute(s) Documented Medications Documented cephalexin: 500 mg, Oral, q8hr, Refills(s) 0, Home Medications (1) Active cephalexin 500 mg, Oral, q8hr , Medications (9) Active Scheduled: (3) acetaminophen 325 mg Tab UD [F] 650 mg 2 tab(s), Oral, q6hr enoxaparin 40 mg/0.4 mL SC Claribel [F] 40 mg 0.4 mL, SubCutaneous, Daily piperacillin-tazobactam 3 g-0.375 g + Sodium Chloride 0.9% Minibag 100 mL 3.375 gm 1 EA, IV Piggyback, q6hr Continuous: (1) Lactated Ringers 1,000 mL 1,000 mL, IV, 75 mL/hr PRN: (5) bisacodyl 10 mg Supp [F] 10 mg 1 supp, Rectal, Daily bisacodyl 5 mg Oral EC Tab [F] 10 mg 2 tab(s), Oral, Daily magnesium hydroxide 8% Oral Susp 30 mL [F] 30 mL, Oral, Daily oxyCODONE 5 mg Tab UD [F] 5 mg 1 tab(s), Oral, q4hr oxyCODONE 5 mg Tab UD [F] 10 mg 2 tab(s), Oral, q4hr Problem list: No problem items selected or recorded., No qualifying data available Histories Past Medical History: No active or resolved past medical history items have been selected or recorded. Family History: No family history items have been selected or recorded. Procedure history: No active procedure history items have been selected or recorded. Social History Social & Psychosocial Habits No Data Available . Physical Examination Vital Signs 01/20/2025 6:42 EDT Hourly Rounding Yes Promise to Return Yes 01/20/2025 5:25 EDT Temperature Oral 36.5 DegC Heart Rate Monitored 72 bpm Respiratory Rate 16 br/min Systolic Blood Pressure 97 mmHg Diastolic Blood Pressure 60 mmHg Blood Pressure Location Right arm SpO2 98 % 01/20/2025 5:00 EDT Hourly Rounding Yes Promise to Return Yes 01/20/2025 4:57 EDT Hourly Rounding Yes Promise to Return Yes 01/20/2025 3:26 EDT Hourly Rounding Yes Promise to Return Yes 01/20/2025 2:41 EDT Hourly Rounding Yes Promise to Return Yes 01/20/2025 1:37 EDT Hourly Rounding Yes Promise to Return Yes 01/20/2025 0:44 EDT Hourly Rounding Yes Promise to Return Yes 01/19/2025 23:26 EDT Hourly Rounding Yes Promise to Return Yes 01/19/2025 23:23 EDT Temperature Oral 36.9 DegC Heart Rate Monitored 71 bpm Respiratory Rate 14 br/min Systolic Blood Pressure 106 mmHg Diastolic Blood Pressure 68 mmHg Blood Pressure Location Right arm SpO2 100 % 01/19/2025 22:26 EDT Hourly Rounding Yes Promise to Return Yes 01/19/2025 21:17 EDT Hourly Rounding Yes Promise to Return Yes 01/19/2025 20:20 EDT Hourly Rounding Yes Promise to Return Yes 01/19/2025 19:00 EDT Temperature Oral 37.2 DegC Heart Rate Monitored 92 bpm Respiratory Rate 17 br/min Systolic Blood Pressure 105 mmHg Diastolic Blood Pressure 65 mmHg Blood Pressure Location Right arm Hourly Rounding Yes Promise to Return Yes SpO2 100 % 01/19/2025 18:04 EDT Temperature Oral 37.5 DegC HI Apical Heart Rate 73 bpm Respir (more content not included)...[facility] Comment: Electronically Signed By: Michelle SANCHEZ, Dwayne Villarreal\.br\Date and Time Signed: 01/20/2507:54 [id number] Chrissy Medication Education oxyCODONE Luna Understands Medication Education [facility]04-29-2025 History of Present illness Narrative* Ginny Quach NP - 01/16/2025 8:20 AM EDT Family Medicine Note Subjective: Chief Complaint: Wellness, ADHD HPI: Le Rocha presents to the office today for adult wellness visit. The patient is due for lab workand would like this sent to [facility]. She is up to date on her other preventative wellness screenings. She is post and is requesting to be restarted on Vyvanse for her ADHD. The patient states that she tolerated this medication well in the past. She is also requesting medication be sent to a ssist with smoking cessation. She denies further complaints or concerns at this time. Current Outpatient Medications: cephalexin (Keflex) 500 MG capsule, Take 500 mg by mouth in the morning and 500 mg in the evening and 500 mg before bedtime., Disp: , Rfl: lisdexamfetamine (Vyvanse) 30 MG capsule, Take 1 capsule (30 mg) by mouth Daily, Disp: 30 capsule, Rfl: 0 nicotine (Nicoderm CQ) 14 MG/24HR patch, Place 1 patch over 24 hours on the skin 1 (one) time each day at the same time Do not fill until 02/14/25, Disp: 30 patch, Rfl: 0 nicotine (Nicoderm CQ) 21 MG/24HR patch, Place 1 patch over 24 hours on the skin 1 (one) time each day at the same time, Disp: 30 patch, Rfl: 1 nicotine (Nicoderm CQ) 7 MG/24HR patch, Place 1 patch over 24 hours on the skin 1 (one) time each day at the same time Do not fill until 03/16/25, Disp: 30 patch, Rfl: 0 Medical History: Past Medical History: Diagnosis Date Acute low back pain ADHD (attention deficit hyperactivity disorder) ([facility]/HCC) Anxiety with depression Asthma Chondritis Family planning Hx of bipolar disorder bipolar II PCOS (polycystic ovarian syndrome) Pelvic pain Post depression (CMS/HCC) Pre-op exam Allergies: No Known Allergies Social History: Tobacco Use: Tobacco Use: Low Risk (01/16/2025) Patient History Smoking Tobacco Use: Never Smokeless Tobacco Use: Never Passive Exposure: Never Recent Concern: Tobacco Use - High Risk (01/16/2025) Patient History Smoking Tobacco Use: Every Day Smokeless Tobacco Use: Never Passive Exposure: Never Objective: Vitals: 01/16/25 0828 BP: 118/70 Pulse: 70 Resp: 20 Temp: 97.5 F SpO2: 100% Weight: 138 lb Height: 5' 9 Physical Exam Vitals and nursing note reviewed. Constitutional: General: She is not in acute distress. Appearance: Normal appearance. She is not ill-appearing. HENT: Head: Normocephalic and atraumatic. Right Ear: External ear normal. Left Ear: External ear normal. Nose: Nose normal. Mouth/Throat: Mouth: Mucous membranes are moist. Eyes: Extraocular Movements: Extraocular movements intact. Pupils: Pupils are equal, round, and reactive to light. Cardiovascular: Rate and Rhythm: Normal rate. Pulses: Normal pulses. Heart sounds: No murmur heard. Pulmonary: Effort: Pulmonary effort is normal. Breath sounds: No wheezing, rhonchi or rales. Abdominal: General: Bowel sounds are normal. There is no distension. Tenderness: There is no abdominal tenderness. Musculoskeletal: General: Normal range of motion. Cervical back: Normal range of motion. Skin: General: Skin is warm and dry. Neurological: General: No focal deficit present. Mental Status: She is alert and oriented to person, place, and time. Psychiatric: Mood and Affect: Mood normal. Behavior: Behavior normal. Judgment: Judgment normal. Assessment: Assess/Plan Problem List Items Addressed This Visit None Visit Diagnoses Encounter for adult wellness visit - Primary Wellness performed at office visit today. Height, weight, BMI, problem list, and immunizations records reviewed. Encourage annual vision screenings and semi- annual dental care. Encourage to eat a diet that is rich in plant-based foods and lean protein. Encourage regular periods of exercise. Limit or eliminate junk food and sources of excess calories. Encourage to maintain open communication with provider regarding any changes in condition. Encourage 150 minutes of exercise weekly or amount appropriate to current level of function. Identify family/friend/social support and maintaining emotional connections. Follow-up as discussed. Patient verbalized importance of keeping open communication with health care providers. Fatigue, unspecified type Relevant Orders Vitamin D 25 hydroxy Vitamin B12 Attention deficit hyperactivity disorder (ADHD), combined type (CMS/HCC) Relevant Medications lisdexamfetamine (Vyvanse) 30 MG capsule Continue with current drug therapy. Call office for worsening of symptoms. Per FDA regulations, follow ups have to occur every 3 months. You verbalized understanding of these rules in order for us tocontinue filling medications. OARRS review completed. Vitamin D deficiency Relevant Orders Vitamin D 25 hydroxy Cigarette nicotine dependence without complication Relevant Medications nicotine (Nicoderm CQ) 21 MG/24HR patch nicotine (Nicoderm CQ) 14 MG/24HR patch nicotine (Nicoderm CQ) 7 MG/24HR patch Today at your visit we discussed tobacco cessation. Tobacco abuse increases your risk of heart disease, stroke , cancer and lung disease. We have discussed your current barriers to quitting smoking and the triggers for you to have a cigarette. In addition, we discussed there are medications to helpyou quit. We did discuss tobacco cessation for approximately 4 minutes. Follow-up: Follow up in about 3 months (around 04/17/2025) for ADHD . documented in this encounterRanken Jordan Pediatric Specialty [id number] History of Present illness Narrative* Guillaume Conti, DO - 11/03/2024 6:35 PM EST Images from the original note were not included. [address] , [address] [facility], [address] P: [phone] F: [phone] HPI Historian of HPI: patient Le Rocha is a 24 y.o. female who presents today to the Urgent Care with the following complaints and denials which have been present for 1 day(s) C/O Denies Symptom Comments [] [x] Runny Nose [] [x] Difficulty Swallowing [x] [] Sore Throat [x] [] Cough [] [x] Ear Pain [] [x] Fever [] [x] Chills [] [x] Nasal Congestion [x] [] Myalgia [x] [] Sinus Pain [x] [] Sinus Pressure Additional Comments: Pt repots her son has flu A and [facility] told us to come in . Pt agreeable to flu testing. Pt reports she is . ROS A complete system ROS was performed and negative aside from the pertinent positives noted in the HPI and PE. IH Testing: PHYSICAL EXAM Physical Exam Constitutional: Appearance: Normal appearance. HENT: Head: Normocephalic. Right Ear: Tympanic membrane normal. Left Ear: Tympanic membrane normal. Nose: Congestion present. Cardiovascular: Rate and Rhythm: Normal rate and regular rhythm. Pulmonary: Effort: Pulmonary effort is normal. Breath sounds: Normal breath sounds. Neurological: Mental Status: She is alert. Psychiatric: Mood and Affect: Mood normal. TREATMENT PLAN Diagnoses and all orders for this visit: Viral URI (Primary) Runny nose - RAPID FLU Patient's flu test is negative. This is likely the beginning of a viral URI. Follow instructions kelsea. Use a humidifier when possible. May use acetaminophen or ibuprofen for pain or fever. RTO if worsening. No antibiotic is necessary at this time. Use a humidifier when possible. May use acetaminophen or ibuprofen for pain or fever. RTO if worsening. No antibiotic is necessary at this time. documented in this encounterRanken Jordan Pediatric Specialty [id number] History of Present illness Narrative* Raeann Jang, JEAN CLAUDE - 10/19/2024 4:20 PM EST SUBJECTIVE Le Rocha is a 24 y.o. female who presents for review of recent Genes[employer] testing and discussionof medication management options for anxiety, depression, and ADHD. Medication plan was designed for patient, but she is currently and can not take any of the medications suggested for her. She will call me once she is done to start medication plan. She currently feels her depression and anxiety is manageable and is denying any suicidal or homicidal ideations. Patient is also interested in assistance with smoking cessation. Again, discussed that it is not a good idea to start chantix while . CURRENT MEDICATIONS Current Outpatient Medications: Levonorgestrel-Eth Estradiol (Twirla) 120-30 MCG/24HR patch weekly, Place 1 patch on the skin 1 (one) time per week, Disp: 4 patch, Rfl: 11 RECENT VITAL SIGNS 08/03/2024 9:12 AM 08/16/2024 8:49 AM 08/22/2024 3:07 PM 08/30/2024 3:06 PM 10/06/2024 10:49 AM 10/11/2024 11:39 AM 10/19/2024 4:28 PM Vitals BMI 22.36 kg/m2 22.32 kg/m2 23.16 kg/m2 22.71 kg/m2 20.23 kg/m2 20.48 kg/m2 20.38 kg/m2 BSA (m2) 1.83 m2 1.83 m2 1.86 m2 1.84 m2 1.74 m2 1.75 m2 1.75 m2 Systolic 102 100 114 98 102 110 108 Diastolic 64 60 70 62 62 70 70 Heart Rate 79 64 SpO2 98 % 100 % Temp 97.6 F 97.3 F Resp 20 Height (in) 5' 9 5' 9 Weight (lb) 151.4 151.12 156.8 153.8 137 138.7 138 Visit Report Report OBJECTIVE Physical Exam Vitals and nursing note reviewed. Constitutional: Appearance: Normal appearance. She is normal weight. HENT: Head: Normocephalic and atraumatic. Right Ear: Tympanic membrane, ear canal and external ear normal. Left Ear: Tympanic membrane, ear canal and external ear normal. Nose: Nose normal. Mouth/Throat: Mouth: Mucous membranes [...] Diagnoses and all orders for this visit: Person consulting for explanation of examination or test finding Mixed anxiety and depressive disorder Attention-deficit hyperactivity disorder, other type (CMS/HCC) FOLLOW-UP No follow-ups on file. documented in this encounterRanken Jordan Pediatric Specialty [id number] Instructions* Patient Instructions* Raeann Jang NP - 10/19/2024 4:20 PM EST PATIENT EDUCATION: ANXIETY 1) Cognitive Behavioral Therapy (CBT) for anxiety/panic disorder involves a combination of education, self-monitoring, relaxation training, challenging negative styles of thinking, situational exposure training, and systematic exposure to uncomfortable physical sensations. CBT can be used alone without pharmacotherapy, or may be used as an adjunct to any form of pharmacotherapy 2) Panic is an understandable reaction to perceived danger (the fight or flight response). Fear arises from the misinterpretation of normal body sensations. It is important to link symptoms and interpret anxiety with arrows in a vicious lytton . It is important to appreciate that the first goal of treatment is not to remove all anxiety, only to manage it successfully. Attempts to cope by avoidance or safety seeking are understandable, but inadvertently lead to maintaining the problem. 3) Several mental health apps have been developed for panic and anxiety-related conditions. Internet-based self-help programs have been developed to improve access to evidence-based treatment principles for panic symptoms for patients unable to access treatment with a clinician. 4) Use medication as directed. Counseling recommended. Please report to the emergency room for any suicidal/homicidal ideation. Patient strongly encouraged to avoid alcohol and drug substances while on medications. This can cause adverse reactions and ineffectiveness of medications. OARRS reviewed as necessary for use of controlled substances. DEPRESSION Discussed side effects of medications. Notify physician's office if worsening depression, suicidal thoughts, and allergic reactions. Avoid use of other drugs, including alcohol. It may take 4-6 weeksbefore seeing improvement of symptoms. Do not stop medication abruptly to avoid serotonin withdrawal symptoms. There are a number of treatments for depression including psychotherapy, support groups,and psychiatric antidepressant medications. Try to get 8 hours of sleep per night. A lack of sleep increases risk for mental disturbances of all kinds. Daily exercise is recommended; exercise naturally increases the concentration of neurotransmitters such as serotonin. Build loving and accepting family/friend relationships. Use positive psychology. Meditation can be helpful because it calms and relaxes both the mind and body. There are many books, internet articles and free apps that you can download to guide you in meditation exercises. ADHD Current drug therapy discussed during office visit. Call office for worsening of symptoms for follow-up visit. Per [facility] regulations, follow-ups have to occur at least every 3 months. Patient verbalized understanding of these rules in order for us to continue filling medications. OARRS/PDMP reviewed without concern. Medications should be safely filled and stored as this is a controlled substance. documented in this encounterRanken Jordan Pediatric Specialty [id number] History of Present illness Narrative* KEI Hurd - 10/11/2024 11:30 AM EST Reason for Appointment: Patient ID: Le Rocha is a 24 y.o. female who presents for Care Patient presents today for Post Follow Up appointment. MEDICATIONS No current outpatient medications ALLERGIES No Known Allergies PROBLEMS Active Ambulatory Problems Diagnosis Date Noted Affective psychosis ([facility]) 07/19/2023 Bipolar II disorder, most recent episode major depressive ([facility]) 07/19/2023 Hypoglycemia 07/19/2023 Mild persistent asthma without complication ([facility]) 07/19/2023 Mixed anxiety and depressive disorder 07/19/2023 Chronic fatigue 07/20/2023 Attention-deficit hyperactivity disorder, other type ([facility]) 07/20/2023 Resolved Ambulatory Problems Diagnosis Date Noted Attention deficit hyperactivity disorder ([facility]) 07/19/2023 Missed menses 07/20/2023 Unspecified mood (affective) disorder ([facility]) 07/20/2023 Past Medical History: Diagnosis Date Acute low back pain ADHD (attention deficit hyperactivity disorder) ([facility]) Anxiety with depression Asthma ([facility]) Chondritis Family planning Hx of bipolar disorder PCOS (polycystic ovarian syndrome) Pelvic pain Post depression ([facility]) Pre-op exam HISTORY PAST MEDICAL HISTORY SOCIAL HISTORY Past Medical History: Diagnosis Date Acute low back pain ADHD (attention deficit hyperactivity disorder) ([facility]) Anxiety with depression Asthma ([facility]) Chondritis Family planning Hx of bipolar disorder bipolar II PCOS (polycystic ovarian syndrome) Pelvic pain Post depression ([facility]) Pre-op exam Social History Tobacco Use Smoking [...] reviewed. Vitals: Estimated body mass index is 20.48 kg/m as calculated from the following: Height as of 10/06/24: 5' 9 . Weight as of this encounter: 138 lb 11.2 oz. BP: 110/70 Patient's last menstrual period was 12/07/2023. ASSESSMENT & PLAN ICD-10-CM 1. 6 weeks follow-up Z39.2 Post Follow Up: Patient is doing well Patient presents today for 6 week visit. Patient is s/p Vaginal delivery. Patient states depression but denies suicidal and homicidal ideations. All options were discussed with the patient regarding control and patient desires patch Follow Up: Patient is to return for annual unless needed otherwise. Documented by KEI Hurd on behalf of: KEI Hurd documented in this encounterRanken Jordan Pediatric Specialty [id number] History of Present illness Narrative* Gayathri Walters, NAVID - 08/30/2024 2:10 PM EST Reason for Appointment: Patient ID: Le Rocha is a 24 y.o. female who presents for No chief complaint on file. Patient presents today for Return OB appointment. MEDICATIONS Current Outpatient Medications Medication Instructions Docusate Sodium (COLACE PO) Take by mouth iron polysaccharides (PROFE) 391.3 mg, Oral, Daily Vit w/Yy-Xknsbpdat-GO (PNV PO) Take by mouth ALLERGIES No Known Allergies PROBLEMS Active Ambulatory Problems Diagnosis Date Noted Affective psychosis ([facility]) 07/19/2023 Bipolar II disorder, most recent episode major depressive ([facility]) 07/19/2023 Hypoglycemia 07/19/2023 Mild persistent asthma without complication ([facility]) 07/19/2023 Mixed anxiety and depressive disorder 07/19/2023 Chronic fatigue 07/20/2023 Attention-deficit hyperactivity disorder, other type ([facility]) 07/20/2023 Resolved Ambulatory Problems Diagnosis Date Noted Attention deficit hyperactivity disorder ([facility]) 07/19/2023 Missed menses 07/20/2023 Unspecified mood (affective) disorder ([facility]) 07/20/2023 Past Medical History: Diagnosis Date Acute low back pain ADHD (attention deficit hyperactivity disorder) ([facility]) Anxiety with depression Asthma ([facility]) Chondritis Family planning Hx of bipolar disorder PCOS (polycystic ovarian syndrome) Pelvic pain Post depression ([facility]) Pre-op exam HISTORY PAST MEDICAL HISTORY SOCIAL HISTORY Past Medical History: Diagnosis Date Acute low back pain ADHD (attention deficit hyperactivity disorder) ([facility]) Anxiety with depression Asthma ([facility]) Chondritis Family planning Hx of bipolar disorder bipolar II PCOS (polycystic ovarian syndrome) Pelvic pain Post depression ([facility]) Pre-op exam Social History Tobacco Use Smoking [...] Constitutional: Appearance: Normal appearance. She is well-developed. Genitourinary: Vulva normal. Cardiovascular: Rate and Rhythm: Normal rate and [...] nursing note reviewed. Exam conducted with a director radio news present. Vitals: Estimated body mass index is 22.71 kg/m as calculated from the following: Height as of 12/21/23: 5' 9 . Weight as of this encounter: 153 lb 12.8 oz. BP: 98/62 Patient's last menstrual period was 12/07/2023. ASSESSMENT & PLAN ICD-10-CM 1. 38 weeks gestation of Z3A.38 2. Third trimester Z33.2 3. Third trimester Z34.93 Return OB: Patient presents today for a routine obstetrics appointment. Patient is currently 38w1d . Patient states she is doing well but has complaints of being tired due to current . Patient has concerns for cervical leaking and contractions. Performed Nitrazine strip test which was negative for amniotic fluid and cervical check, patient is approximately 4-5 cm dilated. Due to patients presentation of discomfort and consistent contractions patient was advised to head over to [facility] at [facility] for evaluation and potential delivery. Orders Placed This Encounter Procedures POCT urinalysis dipstick manually resulted Follow Up: Patient is to return to office in 1 week for routine OB appointment. Documented by Gayathri Walters LPN on behalf of: Jhonathan Pedraza DO documented in this encounterRanken Jordan Pediatric Specialty [id number] History of Present illness Narrative* Gayathri Walters LPN - 08/22/2024 2:30 PM EST Reason for Appointment: Patient ID: Le Rocha is a 24 y.o. female who presents for Routine Visit Patient presents today for Return OB appointment. MEDICATIONS Current Outpatient Medications Medication Instructions Docusate Sodium (COLACE PO) Take by mouth iron polysaccharides (PROFE) 391.3 mg, Oral, Daily Vit w/Fu-Adgircoee-QU (PNV PO) Take by mouth ALLERGIES No [...] Constitutional: Appearance: Normal appearance. She is well-developed. Genitourinary: Vulva normal. Cardiovascular: Rate and Rhythm: Normal rate and [...] nursing note reviewed. Exam conducted with a director radio news present. Vitals: Estimated body mass index is 23.16 kg/m as calculated from the following: Height as of 12/21/23: 5' 9 . Weight as of this encounter: 156 lb 12.8 oz. BP: 114/70 Patient's last menstrual period was 12/07/2023. ASSESSMENT & PLAN ICD-10-CM 1. Third trimester Z34.93 2. 37 weeks gestation of Z3A.37 Return OB: Patient presents today for a routine obstetrics appointment. Patient is currently 37w0d . Patient states she is doing well but has complaints of being tired due to current . Patient has verbalizes frequent movement. labor precautions was discussed/given and patient was instructed to perform kick counts three times a day. No orders of the defined types were placed in this encounter. Follow Up: Patient is to return to office in 1 week for routine OB appointment. Documented by Gayathri Walters LPN on behalf of: Jhonathan Pedraza DO documented in this encounterRanken Jordan Pediatric Specialty [id number] History of Present illness Narrative* KEI Hurd - 08/16/2024 8:40 AM EST Reason for Appointment: Patient ID: Le Rocha is a 24 y.o. female who presents for Routine Visit Patient presents today for Return OB appointment. MEDICATIONS Current Outpatient Medications Medication Instructions Docusate Sodium (COLACE PO) Take by mouth iron polysaccharides (PROFE) 391.3 mg, Oral, Daily Vit w/Vu-Odpttncxw-FV (PNV PO) Take by mouth ALLERGIES No [...] behalf of: KEI Hurd documented in this encounterRanken Jordan Pediatric Specialty [id number] History of Present illness Narrative* Jacki Dietrich, AUDIO PRODUCTION MANAGER - 08/03/2024 9:10 AM EST Reason for Appointment: Patient ID: Le Rocha [...] breakfast, Do not crush or chew. Vit w/Vh-Kmuvincek-BN (PNV PO) Take by mouth ALLERGIES No [...] nursing note reviewed. Exam conducted with a director radio news present. Vitals: Estimated body mass index is [...] of: Jhonathan Pedraza DO documented in this encounterRanken Jordan Pediatric Specialty [id number] History of Present illness Narrative* KEI Hurd - 07/18/2024 8:50 AM EDT Reason for Appointment: Patient ID: Le Rocha [...] breakfast, Do not crush or chew. Vit w/Qt-Zxntxabsk-UH (PNV PO) Take by mouth ALLERGIES No [...] behalf of: KEI Hurd documented in this encounterRanken Jordan Pediatric Specialty [id number] History of Present illness Narrative* KEI Hurd - 07/04/2024 9:20 AM EDT Reason for Appointment: Patient ID: Le Rocha is a 24 y.o. female who presents for Routine Visit Patient presents today for Return OB appointment. MEDICATIONS Current Outpatient Medications Medication Instructions Docusate Sodium (COLACE PO) Take by mouth omeprazole (PRILOSEC) 20 mg, Oral, Daily before breakfast, Do not crush or chew. Vit w/Fa-Pkkryyhwx-FV (PNV PO) Take by mouth ALLERGIES No [...] nursing note reviewed. Exam conducted with a director radio news present. Vitals: Estimated body mass index is [...] behalf of: KEI Hurd documented in this encounterRanken Jordan Pediatric Specialty [id number] History of Present illness Narrative* Jacki Dietrich LPN - 06/19/2024 2:10 PM EDT Reason for Appointment: Patient ID: Le Rocha is a 24 y.o. female who presents for Routine Visit Patient presents today for Return OB appointment. MEDICATIONS Current Outpatient Medications Medication Instructions Docusate Sodium (COLACE PO) Oral Vit w/Hg-Aeppstesh-ZG (PNV PO) Oral ALLERGIES No Known Allergies PROBLEMS Active Ambulatory Problems Diagnosis Date Noted Affective psychosis ([facility]) 07/19/2023 Bipolar II disorder, most recent episode major depressive ([facility]) 07/19/2023 Hypoglycemia 07/19/2023 Mild persistent asthma without complication ([facility]) 07/19/2023 Mixed anxiety and depressive disorder 07/19/2023 Chronic fatigue 07/20/2023 Attention-deficit hyperactivity disorder, other type ([facility]) 07/20/2023 Resolved Ambulatory Problems Diagnosis Date Noted Attention deficit hyperactivity disorder ([facility]) 07/19/2023 Missed menses 07/20/2023 Unspecified mood (affective) disorder ([facility]) 07/20/2023 Past Medical History: Diagnosis Date Acute low back pain ADHD (attention deficit hyperactivity disorder) ([facility]) Anxiety with depression Asthma ([facility]) Chondritis Family planning Hx of bipolar disorder PCOS (polycystic ovarian syndrome) Pelvic pain Post depression ([facility]) Pre-op exam HISTORY PAST MEDICAL HISTORY SOCIAL HISTORY Past Medical History: Diagnosis Date Acute low back pain ADHD (attention deficit hyperactivity disorder) ([facility]) Anxiety with depression Asthma [facility] [facility] Chondritis Family planning Hx of bipolar disorder bipolar II PCOS (polycystic ovarian syndrome) Pelvic pain Post depression ([facility] Pre-op exam Social History Tobacco Use Smoking [...] nursing note reviewed. Exam conducted with a director radio news present. Vitals: Estimated body mass index is 21.71 kg/m as calculated from the following: Height as of 12/21/23: 5' 9 . Weight as of this encounter: 147 lb. BP: 100/64 Patient's last menstrual period was 12/07/2023. ASSESSMENT & PLAN ICD-10-CM 1. Diabetes mellitus screening Z13.1 CBC Glucose tolerance, 1 hour 2. 27 weeks gestation of Z3A.27 POCT urinalysis dipstick manually resulted 3. Second trimester Z34.92 4. Encounter for screening for cervical length Z36.86 US OB transvaginal 5. size inconsistent with dates O26.849 US OB SCAN FOR GROWTH Patient presents today for a routine obstetrics appointment. Patient is currently 27w6d with a Estimated Date of Delivery: 09/12/24. Patient given orders for for growth scan and CL. Patient to return to clinic in 2 weeks for routine OB appointment. Documented by Jacki Dietrich LPN on behalf of: Jhonathan Pedraza DO documented in this encounterRanken Jordan Pediatric Specialty [id number] History of Present illness Narrative* Roselyn Chauhan DO - 05/26/2024 10:45 AM EDT Glucose/H&H ordered, Tdap info given. Urine N/N. Yesterday when cleaning will have cramping when sitting relaxing feels better. Patient states she has been off work due to contractions. Patient states she was 1cm dilated when she went to [facility] for [place]. Patient not wanting to return to work due to contractions/cramping she gets with physical activity and her job is physically active. Anatomy not completed from [facility] at [facility]- will repeat anatomy DERRICK documented in this encounterRanken Jordan Pediatric Specialty [id number] NotePatient Education Materials Follows: Dental Pain Dental pain is often a sign that something is wrong with your teeth or gums. You can also have painafter a dental treatment. If you have dental [...] these instructions at home: Medicines ? Take lnnr-xik-rvzipjh and prescription medicines only as told by [...] to the area. Brushing your teeth ? [place] your teeth twice a day using a [...] ??1 tsp (3?6 g) of salt in 1cup (237 mL) of warm water. ? Watch [...] away. Call your local emergency services (911 int [place] ? Do not wait to see [...] when you eat or drink. ? Take vtrv-lnp-xidozmt and prescription medicines only as told by your dentist. ? Watch your dental pain for any changes. Let your dentist know if symptoms get worse. This information is not intended to replace advice given to you by your health care provider. Make sure you discuss any questions you have with your health care provider. Document Revised: 06/11/2021 Document Reviewed: 06/11/2021 [employer] Patient Education ? 2023 [employer] Dentistry Dental Pain Dental pain is often a sign that something is wrong with your teeth or gums. You can also have painafter a dental treatment. If you have dental [...] these instructions at home: Medicines ? Take xbyw-ojf-evatrbw and prescription medicines only as told by your dentist. ? If you were prescribed an antibiotic medicine, take it as told by your dentist. Do not stop taking it even if you start to feel better. Eating and drinking Do not eat foods or drinks that cause you pain. These include: (more content not included)...[facility] [id number] Hospital Discharge instructions Ambulatory Orders* Referral to Orthopedics Time Frame: 12/15/23, Location: None [facility] Work Phone: 1(705) 898-207502-01-2024 History of Present illness Narrative* Raeann Jang NP - 10/21/2023 9:40 AM EST SUBJECTIVE Le Rocha is a 23 y.o. [...] capsule, Take 1 capsule (30 mg) by mouthin the morning. Do not crush or chew.., [...] scheduled follow-up: [facility] . documented in this [facility]02-01-2024 Instructions* Patient Instructions* Raeann Jang NP - 10/21/2023 9:40 AM EST PATIENT EDUCATION: ADHD Current drug therapy discussed during office visit. Call office for worsening of symptoms for follow-up visit. Per [facility] regulations, follow-ups have to occur at least every 3 months. Patient verbalized understanding of these rules in order for us to continue filling medications. OARRS/PDMP reviewed without concern. Medications should be safely filled and stored as this is a controlled substance. CERUMEN IMPACTION Bilateral ears lavaged with successful removal of ear wax. Recommended use of 1/2 strength hydrogenperoxide rinses three times weekly to manage cerumen accumulation. Over the counter Debrox per box instructions may also help with softening of wax build up. Follow-up as needed for repeat lavage. documented in this [facility]12-15-2023 Note [id number]12-14-2023 NotePatient Education Materials Follows:[facility] HospitalAfjjkfpa07-21-1622 Note OPERATIVE NOTE OPERATION DATE: 12/04/2022 PROCEDURE: Robotic assisted diagnostic laparoscopy. PREOPERATIVE DIAGNOSIS: Pelvic pain. POSTOPERATIVE DIAGNOSIS: Pelvic pain. ANESTHESIA: General. SURGEON: Jhonathan Pedraza D.O. [employer] MACHINE OPERATOR: STEPHON Weber URINE OUTPUT: Yellow and clear. [...] was taken to Recovery Room in stable condition.[facility] [id number] Evaluation note* Encounter Date Diagnosis Assessment Notes Treatment Notes Treatment Clinical Notes Jul, ADHD (attention deficit hyperactivity disorder) (ICD-10 - F90.9) Jul, Anxiety (ICD-10 - F41.9) [facility] Other 07-22-2022 Evaluation note* Encounter Date Diagnosis [...] done in May (2021) by Dr. Pedraza. [facility] Other 06-21-2022 Evaluation note* Encounter Date Diagnosis Assessment Notes Treatment Notes Treatment Clinical Notes Feb, Fatigue (ICD-10 - R53.83) Feb, Weakness (ICD-10 - R53.1) Feb, Chest pain (ICD-10 - R07.9) [facility] Other 04-15-2022 Evaluation note* Encounter Date Diagnosis [...] other issues that take precedence. Dec, Other fdc (current) drug therapy (ICD-10 - Z79.899) Dec, [...] the symptoms so they can be documented. [facility] Other 03-15-2022 Evaluation note* Encounter Date Diagnosis Assessment Notes Treatment Notes Treatment Clinical Notes Nov, ADHD (attention deficit hyperactivity disorder) (ICD-10 - F90.9) [facility] Other 12-15-2021 Evaluation note* Encounter Date Diagnosis [...] that her HGB has improved. Aug, Other fdc (current) drug therapy (ICD-10 - Z79.899) After she has been on the Adderall for a few weeks she should have lab drawn to be sure the medication is not affecting liver or kidneys, she can call for results. [facility] Other 10-18-2021 Evaluation note* Encounter Date Diagnosis [...] have EMDR done through her new counselor. [facility] Other 03-14-2012 History general Narrative - Reported* Type Description Date Medical History 12-02-2011 Echo - Structurally No rmal Heart Medical History 12-02-11 CXR - Negative Medical History 12-02-11 Echo- Structurally [facility] Medical History Pre & Post Spirometry Medical History ADD Medical History X-Ray Left Ankle 08-07-13; [facility] Medical History PCOS found on ultrasound Medical History bipolar -2 Surgical History No Surgical history information Hospitalization History [facility] - chest pain s 08/12/15 Hospitalization History [facility] panic attack 08/17/15 [facility] Other 03-14-2012 History general Narrative - Reported* Type Description Date Medical History 12-02-2011 Echo - Structurally No rmal Heart Medical History 12-02-11 CXR - Negative Medical History 12-02-11 Echo- Structurally [facility] Medical History Pre & Post Spirometry Medical History ADD Medical History X-Ray Left Ankle 08-07-13; [facility] Medical History PCOS found on ultrasound Medical History bipolar -2 Medical History 10/07/21 pt states sh e had seizures 3-4 years ago that were stress induced Surgical History No Surgical history information Hospitalization [facility] - chest pain [facility] 08/12/15 Hospitalization History [facility] panic attack 08/17/15 [facility] Other Evaluation noteNo InformationNort i-[facility] Other evaluation noteNo assessment information available [facility] Work Phone: Evaluation note* Diagnosis [...] state, incidental [facility] Diagnosis Third trimester state, incidental 37 weeks gestation of [facility]* Diagnosis 38 weeks gestation of Third trimester state, incidental [facility]* Diagnosis 24 weeks gestation of Screening for diabetes mellitus (DM) Screening for diabetes mellitus [facility]* Diagnosis Diabetes mellitus screening Screening for diabetes mellitus 27 weeks gestation of Second trimester state, incidental Encounter for screening for cervical length size inconsistent with dates [facility]* Diagnosis 6 weeks follow-up [facility]* Diagnosis Mixed anxiety and depressive disorder- Primary Dysthymic disorder Person consulting for explanation of examination or test finding Attention-deficit hyperactivity disorder, other type (CMS/HCC) [facility]* Diagnosis Viral URI- Primary Acute upper respiratory infections of unspecified site Runny nose Other diseases of nasal cavity and sinuses [facility]* Diagnosis Encounter for adult wellness visit- Primary Fatigue, unspecified type Attention deficit hyperactivity disorder (ADHD), combined type (CMS/HCC) Vitamin D deficiency Cigarette nicotine dependence without complication documented [facility] this [facility] Narrative No data available for this section [facility] Discharge instructions No data available for this section [facility] Progress note No data available for this section [facility] Reason for visit Narrativemed refill Adderall, discuss multiple issues, see treatment plan for further informationHomestead i-[facility] Other Advance Directives Advance Directive Response Recorded [...] R05.1 R09.[address] helms Chief Complaint Admit Date poss mastitis January 12, 2025 5:4 5pm Summary Purpose Family History Relationship Condition Age at Onset Recorded Date/T rojelio Not Specified No pertinent family history Unknown Relationship Condition Age at Onset Recorded Date/T rojelio Not Specified No pertinent family history Unknown father Addiction to drug Unknown Family history of mental disorder Unknown grandparent Unknown Additional Source Comments REASON FOR VISIT (unrecogniz ed section and content) Reason Comments Routine Visit Reason Comments Care Care Teams (unrecognized sec tion and content) Team Status: Active Member Role Status Merrick Jang PRESCRIPTIONIST-C Primary Care Provider Active Team Status: Inactive Member Role Status Merrick Jang PRESCRIPTIONIST-C Primary Care Provider Active Start: March 30, 2024 End: March 30, 2024 Ginny Quach APRN PRESCRIPTIONIST-C Attending Provider Act michelle Start: March 30, 2024 End: March 30, 2024 Team Status: Active Member Role Status Merrick Jang NP-Ashvin Primary Care Provider Active Start: December 15, 2023 Kirstin Hernandez DO Attending Provider Active Star t: December 15, 2023 Team Status: Inactive Member Role Status Merrick Hernandez DO Primary Care Provider Active Donavon Yanes DO Attending Provider Active Team Status: Active Member Role Status Merrick Hernandez , DO Primary Care Provider Active Team Status: Inactive Member Role Status [facility] Primary Care Provider Active UNA Segura Attending Provide r Active Team Status: Inactive Member Role Status Merrick Hernandez DO Primary Care Provider Active UNA Segura Attending Provide r Active Team Status: Active Member Role Status [facility] Primary Care Provider Active Team Status: Inactive Member Role Status UNA Hurley Attending Provide r Active Services [facility] Primary Care Provider Active Team Status: Inactive Member Role Status Merrick Childs NP-Ashvin Attending Provide r Active Team Status: Active Member Role Status [facility] Primary Care Provider Ac tive Team Status: Inactive Member Role Status [facility] Primary Care Provider Ac tive Tiarra Childs NP-C Attending Provide r Active Team Status: Inactive Member Role Status [facility] Primary Care Provider Ac tive Raeann Jang NP-C Attending Provider Active Team Status: Inactive Member Role Status UNA Mendez Primary Care Provider, Attending Pr ovider Active Teletype Adjuster Relationship Specialty Start Date End Date Yovany Crawley MD [address] [place] [address] PCP - General Family Medicine 07/20/23 Raeann Jang NP [address] [place] [address] Nurse Practitioner Family Medicine 07/20/23 Team Status: Inactive Member Role Status Dates Raeann Jang NP-C Primary Care Provider Active Start: May 23, 2024 End: May 23, 2024 Andrzej Grace DO Attending Provider Active Sta rt: May 23, 2024 End: May 23, 2024 Teletype Adjuster Relationship Specialty Start Date End Date Yovany Crawley MD [address] [place] [address] PCP - General Family Medicine 07/20/23 Raeann Jang NP [address] [place] [address] Nurse Practitioner Family Medicine 07/20/23 Teletype Adjuster Relationship Specialty Start Date End Date Yovany Crawley MD [address] [place] [address] PCP - General Family Medicine 07/20/23 Raeann Jang NP [address] [place] [address] Nurse Practitioner Family Medicine 07/20/23 Teletype Adjuster Relationship Specialty Start Date End Date Yovany Crawley MD [address] [place] [address] PCP - General Family Medicine 07/20/23 Raeann Jang NP [address] [place] [address] Nurse Practitioner Family Medicine 07/20/23 Teletype Adjuster Relationship Specialty Start Date End Date Yovany Crawley MD [address] [place] [address] PCP - General Family Medicine 07/20/23 Raeann Jang NP [address] [place] [address] Nurse Practitioner Family Medicine 07/20/23 Teletype Adjuster Relationship Specialty Start Date End Date Yovany Crawley MD [address] [place] [address] PCP - General Family Medicine 07/20/23 Raeann Jang NP [address] [place] [address] Nurse Practitioner Family Medicine 07/20/23 Teletype Adjuster Relationship Specialty Start Date End Date Yovany Crawley MD [address] [place] [address] PCP - General Family Medicine 07/20/23 Raeann Jang NP [address] [place] [address] Nurse Practitioner Family Medicine 07/20/23 Teletype Adjuster Relationship Specialty Start Date End Date Yovany Crawley MD [address] [place] [address] PCP - General Family Medicine 07/20/23 Raeann Jang NP [address] [place] [address] Nurse Practitioner Family Medicine 07/20/23 Teletype Adjuster Relationship Specialty Start Date End Date Yovany Crawley MD [address] [place] [address] PCP - General Family Medicine 07/20/23 Raeann Jang NP [address] [place] [address] Nurse Practitioner Family Medicine 07/20/23 Teletype Adjuster Relationship Specialty Start Date End Date Yovany Crawley MD [address] [place] [address] PCP - General Family Medicine 07/20/23 Raeann Jang NP [address] [place] [address] Nurse Practitioner Family Medicine 07/20/23 Teletype Adjuster Relationship Specialty Start Date End Date Yovany Crawley MD [address] [place] [address] PCP - General Family Medicine 07/20/23 Raeann Jang NP [address] [place] [address] Nurse Practitioner Family Medicine 07/20/23 Teletype Adjuster Relationship Specialty Start Date End Date Yovany Crawley MD [address] [place] [address] PCP - General Family Medicine 07/20/23 Raeann Jang NP [address] [place] [address] Nurse Practitioner Family Medicine 07/20/23 Teletype Adjuster Relationship Specialty Start Date End Date Yovany Crawley MD [address] [place] [address] PCP - General Family Medicine 07/20/23 Raeann Jang NP [address] [place] [address] Nurse Practitioner Family Medicine 07/20/23 Teletype Adjuster Relationship Specialty Start Date End Date Yovany Crawley MD [address] [place] [address] PCP - General Family Medicine 07/20/23 Raeann Jang NP [address] [place] [address] Nurse Practitioner Family Medicine 07/20/23 Team Status: Inactive Member Role Status Dates Raeann Jang NP-C Primary Care Provider Active Start: January 12, 2025 End: January 12, 2025 Mayra Mendez PA-C Attending Provider Active St art: January 12, 2025 End: January 12, 2025 Teletype Adjuster Relationship Specialty Start Date End Date Yovany Crawley MD [address] [place] [address] PCP - General Family Medicine 07/20/23 Raeann Jang NP [address] [place] [address] Nurse Practitioner Family Medicine 07/20/23 Teletype Adjuster Relationship Specialty Start Date End Date Yovany Crawley MD [address] [place] [address] PCP - General Family Medicine 07/20/23 Yovany Crawley MD [address] [place] [address] PCP - [employer] 01/18/25 Ginny Quach NP [address] [place] [address] Nurse Practitioner Family Medicine 01/19/25 Goals (unrecognized section and content) Goals may be documented in a n alternate section INFORMATION SOURCE (unrecogn ized section and content) DATE CREATED AUTHOR 01/29/2023 [facility] DATE CREATED AUTHOR AUTHOR'S ORGANIZ ATION 04/15/2024 [facility] DATE CREATED AUTHOR AUTHOR'S ORGANIZ ATION 2024 [facility] DATE CREATED AUTHOR AUTHOR'S ORGANIZ ATION 09/21/2024 [facility] DATE CREATED AUTHOR AUTHOR'S ORGANIZ ATION 01/17/2025 [facility]IC DATE CREATED AUTHOR AUTHOR'S ORGANIZ ATION 01/25/2025 [facility] DATE CREATED AUTHOR AUTHOR'S ORGANIZ ATION 02/03/2025 [facility] DATE CREATED AUTHOR AUTHOR'S ORGANIZ ATION 04/04/2025 [facility] ical Center FOR RECORDS PERTAINING TO PATIENTS WHO ARE [...] BE BASED ON THE PRIMARY CLINICAL RECORDS. [facility] [employer] provides no warranty or guarantee of the accuracy or completeness of information in this document.
[2025-04-13 09:09] LABS: Age Gdln ACOG Testing Note (.); IGP, rfx Aptima HPV ASCU Note (.)
== END 2025-04-10 22:18 | disposition home or self-care (01) ==
LOC: LAB 22:17
PROVIDERS: PCP Nurse Practitioner; Visit Provider Obstetrics & Gynecology
DX: Z01.419 Encounter for gynecological examination (general) (routine) without abnormal findings (principal)
CPT/HCPCS: 88175